=== PATIENT | male | born 1985 | race African-American/Black ===

== ENCOUNTER 2021-06-15 22:35 | Observation (INO) | payer MEDICARE, MEDICAID, SELFPAY ==
[2021-06-15] VITALS (14 sets, daily range): BP systolic 109–204; BP diastolic 64–132; PULSE 50–113; RESP 15–31; TEMP 36.8; O2SAT 92–100
--- NOTE | ~2021-06-15 | XR_ITS ---
XR chest 1V portable DATE: 06/15/2021 23:14 INDICATION: Midsternal chest pain TECHNIQUE: 2 portable AP views on 06/15/2021 at 2304 2305 hours COMPARISON: None FINDINGS: There is pulmonary vascular redistribution and mild prominence of the minor fissure which m ay indicate mild pulmonary vascular congestion. Mild right perihilar infiltrate is suggested. Heart s ize is appears borderline, not optimally evaluated on AP projection, particularly considering some ro tation on these views. No pleural effusion or pneumothorax is detected. IMPRESSION: Limited rotated portable AP views with suggestion of possible congestive changes Reviewed, dictated and finalized at location A. IMPRESSION: Limited rotated portable AP views with suggestion of possible conge stive changes
--- NOTE | ~2021-06-15 | XR_ITS ---
XR chest PICC line DATE: 06/16/2021 14:01 INDICATION: PICC line confirmation TECHNIQUE: Portable AP chest on 06/26/2021 at 1347 hours COMPARISON: 06/15/2021 portable AP chest FINDINGS: PICC line overlies the mid superior vena cava. No pneumothorax. Mild infiltrate or atelectasis is suggested in the right mid and both lower lung zones. Heart size appears normal. No hilar or mediastinal enlargement. No pulmonary vascular congestion, ple ural effusion or pneumothorax is evident. IMPRESSION: Right upper extremity PIC catheter tip overlying mid superior vena cava Reviewed, dictated and finalized at [facility]. Reviewed, dictated and finalized at location A.
--- NOTE | ~2021-06-15 | CT_ITS ---
EXAMINATION: CT abdomen pelvis w con DATE: 06/16/2021 01:58 INDICATION: Right abdominal pain. Nausea. TECHNIQUE: Computed tomography (CT) of the abdomen and pelvis was performed with 100 cc Omnipaque 350 intravenous contrast. Automated exposure control and iterative reconstruction technique were employe d. Exam dose: 1320.89 mGy-cm total exam DLP. COMPARISON: None. FINDINGS: There is mild discoid atelectasis or scarring at the lung bases. Heart size is within giles l limits. There is no pericardial or pleural effusion. Small sliding hiatal hernia. Status post cholecystectomy. No hepatic, splenic, pancreatic, adrenal space-occupying mass lesion is evident. Scattered bilateral probable renal cysts. No urinary tract calculus or hydroureteronephrosis is evident. There is a suprapubic Lynch catheter within the evacuated urinary bladder. IVC filter is noted beneath the level of the renal veins. Normal caliber of the abdominal aorta. There is a percutaneous pigtail catheter in the left paracolic gutter. There is severe lytic change of the fifth lumbar vertebra, which vertebral body is nearly completely destroyed, similar lytic involvement of the proximal sacrum with approximately 11.2 x 8.3 x 6.1 cm so ft tissue mass or phlegmon in this lumbosacral area with multiple bone fragments. Osteomyelitis is rubio spected Severe chronic deformities of both hips and pelvic bones. IMPRESSION: Extensive destruction and L5 and proximal segment with large soft tissue mass and bone f ragments in this region. Extensive osteomyelitis and abscess are suggested. Primary or metastatic bon e malignancy is considered much less likely. Extensive chronic deformities of both hips Small sliding hiatal hernia Status post cholecystectomy Probable bilateral renal cysts Suprapubic Lynch catheter IVC filter Reviewed, dictated and finalized at [facility]. Reviewed, dictated and finalized at location A. IMPRESSION: Extensive destruction and L5 and proximal segment with large soft tissue mass and bone fragments in this region. Extensive osteomyelitis and absc ess are suggested. Primary or metastatic bone malignancy is considered much les s likely. Extensive chronic deformities of both hips Small sliding hiatal hernia Status post cholecystectomy Probable bilateral renal cysts Suprapubic Lynch catheter IVC filter
--- NOTE | 2021-06-15 22:36 | ED.CHESTPAIN ---
HPI - Chest Pain General Chief Complaint: Chest Pain Stated Complaint: CHEST PAIN Time Seen by Provider: 06/15/21 22:35 History of Present Illness HPI narrative: 35 yo male w/ complicated medical history including traumatic amputation of BLE, paraplegia, DM, CKD, HTN, laprotomy, pyelonephritis, presents to the ED for chest pain. This started about 40 minutes before arrival. Feels like pressure. He has had the same pain in the past. He was seen at [facility], where he gets all of his medical care. He is not sure what the cause was. BP was very elevated per EMS. pain improved somewhat with aspirin and nitro. Related Data Home Medications Medication Instructions Recorded Confirmed Lactobacillus acidophilus 10 mg PO BID 06/16/21 06/16/21 [Acidophilus] calcium carbonate 1,000 mg PO QID PRN 06/16/21 06/16/21 carvedilol 3.125 mg PO BID 06/16/21 06/16/21 cefepime 2 g IV BID 06/16/21 06/16/21 collagenase clostridium histo. TOPICAL 06/16/21 [Santyl] cyclobenzaprine 5 mg PO TID PRN 06/16/21 06/16/21 daptomycin 550 mg IV DAILY 06/16/21 06/16/21 fentanyl 50 mcg TOPICAL Q3D 06/16/21 06/16/21 gabapentin 300 mg PO HS 06/16/21 06/16/21 linaclotide [Linzess] 145 mcg PO DAILY 06/16/21 06/16/21 metronidazole [Flagyl] 500 mg PO TID 06/16/21 06/16/21 omeprazole 20 mg PO DAILY 06/16/21 06/16/21 ondansetron HCl 4 mg PO Q6H PRN 06/16/21 06/16/21 oxycodone-acetaminophen [Percocet] 1 tablet PO Q4H 06/16/21 06/16/21 polyethylene glycol 3350 17 g PO DAILY PRN 06/16/21 06/16/21 potassium chloride 40 meq PO DAILY 06/16/21 06/16/21 sennosides-docusate sodium [Senna 1 tablet PO BID PRN 06/16/21 06/16/21 Plus] Allergies Allergy/AdvReac Type Severity Reaction Status Date / Time metoclopramide [From Reglan] Allergy Other Verified 06/15/21 22:44 Review of Systems Review of Systems: All systems reviewed & are unremarkable except as noted in HPI and below Constitutional: Constitutional: Denies fever(s) Cardiovascular: Cardiovascular: Reports as per HPI Respiratory: Respiratory: Reports dyspnea Gastrointestinal: Gastrointestinal: Reports no additional gastrointestinal complaints Genitourinary: Genitourinary: Reports no additional male genitourinary complaints Neurologic: Reports system reviewed and no additional complaints, except as documented PMFSH Past Medical History Medical History Diabetes mellitus HTN (hypertension) Paraplegia Pyelonephritis Surgical History Surgical History S/P AKA (above knee amputation) bilateral Family History Family History Father History of blood clots Mother Diabetes mellitus Hypertension Social History Social History Years smoked: 11 Smoking status: Former smoker Tobacco type: cigarettes Alcohol intake: former Substance use: current Substance use type: marijuana Living arrangements: [facility] Spiritual care concerns: No Exam Const: General: alert and ill appearing Nutritional Appearance: obese Orientation/consciousness: patient oriented x3 HENMT: Head: normal to inspection Neck: Neck: normal visual inspection Resp: Effort & Inspection: tachypneic Auscultation: clear to auscultation bilaterally Cardio: Rate: bradycardic Rhythm: regular rhythm GI: GI Palp: Yes Soft to palpation and No Tenderness to palpation present (GI) Skin: Other: diaphoretic Neuro: General: patient oriented x3 Speech: normal speech Extrem: Other: bilateral AKA. right picc line in place Course Vital Signs Vital signs: Vital Signs Temperature 36.8 C 06/15/21 22:36 Pulse Rate 58 L 06/15/21 22:36 Respiratory Rate 19 06/15/21 22:36 Blood Pressure 204/132 H 06/15/21 22:36 Pulse Oximetry 100 06/15/21 22:36 Temperature 37.7 C H 06/16/21 16:00 Pu
--- NOTE | 2021-06-15 22:51 | ECG_ITS ---
Measurements Intervals [place] Rate: 53 P: -6 SC: 159 QRS: 35 QRSD: 108 T: 40 QT: 443 QTc: 418 Interpretive Statements SINUS BRADYCARDIA BASELINE ARTIFACT- II, III, AVR, AVL, AVF, V1-V6 BORDERLINE ECG Electronically Signed On 06-16-2021 7:01:59 CDT by Toi Greenberg D.O.
[2021-06-15] MEDS: MORPHINE SULFATE (*CRX) 4 MG/ML INJ IV PUSH (23:06)
[2021-06-15] MEDS: NITROGLYCERIN SL 0.4 MG TABLET SUBLINGUAL (23:06)
[2021-06-15] MEDS: hydrALAZINE HCL 20 MG/ML VIAL IV PUSH (23:06)
--- NOTE | 2021-06-15 23:06 | PC.NURSE ---
ERP states picc is ok to uses.
[2021-06-15] MEDS: ONDANSETRON INJ 4 MG/2 ML VIAL IV PUSH (23:20)
--- NOTE | 2021-06-15 23:22 | PC.NURSE ---
Patient states pain is 8/10, down from 10/10 after medications given.
[2021-06-15 23:23] LABS: Basophils Percent Auto 0.3 % (0.2-1.2); Eosinophils Absolute Auto 0.1 K/mm3 (0-0.3); Eosinophils Percent Auto 1.5 % (0-4.4); Hemoglobin 11.2 g/dL (14.0-18.0); Immature Granulocyte Absolute 0.03 K/mm3 (0.00-0.031); Immature Granulocyte Percent A 0.4 % (0-0.5); Lymphocytes Absolute Auto 1.02 K/mm3 (0.9-3.2); Lymphocytes Percent Auto 14.2 % (18.3-44.2); Mean Corpuscular HGB Conc 30.3 g/dl (32-36); Mean Corpuscular Hemoglobin 24.6 pg (26-34); Mean Corpuscular Volume 81.1 fl (80-100); Mean Platelet Volume 10.7 fl (7.4-10.4); Monocytes Absolute Auto 0.3 K/mm3 (0.1-0.6); Monocytes Percent Auto 4.4 % (2.6-8.5); Neutrophils Absolute Auto 5.7 K/mm3 (1.3-6.7); Neutrophils Percent Auto 79.2 % (45.5-73.1); Platelet Count Result 231 k/mm3 (150-375); Red Blood Count 4.56 M/mm3 (4.6-6.20); Red Cell Distribution Width 18.6 % (11.5-14.5); White Blood Count 7.2 K/mm3 (4.5-10.0)
[2021-06-15 23:33] LABS: Alanine Aminotransferase 16 U/L (4-50); Albumin Level 4.2 g/dL (3.5-5.1); Alkaline Phosphatase 96 U/L (38-126); Anion Gap 12 mmol/L (8-16); Aspartate Amino Transferase 24 U/L (17-59); Bilirubin,Total 0.7 mg/dL (0.2-1.3); Blood Urea Nitrogen 19 mg/dL (9-20); Calcium 9.6 mg/dL (8.4-10.2); Carbon Dioxide 18 mmol/L (22-30); Chloride 109 mmol/L (98-107); Estimated Glomerular Filt Rate > 60; Glucose 124 mg/dL (65-110); Potassium 4.2 mmol/L (3.4-5.0); Sodium 139 mmol/L (137-145)
[2021-06-15 23:35] LABS: Prothrombin Time 13.4 Seconds (11.1-14.7)
[2021-06-15 23:42] LABS: NT Pro B Type Natriuretic Pept 185 pg/mL (5-100)
[2021-06-15 23:52] LABS: Troponin I < 0.012 ng/mL (0.000-0.034)
[2021-06-16] VITALS (30 sets, daily range): BP systolic 90–209; BP diastolic 49–139; PULSE 50–131; RESP 13–30; TEMP 36.1–37.7; O2SAT 94–100; BMI 35.9
--- NOTE | 2021-06-16 00:37 | PC.NURSE ---
0032 Kamille, patient's caregiver at the [facility] calls to get update on patient.
[2021-06-16] MEDS: hydrALAZINE HCL 20 MG/ML VIAL IV PUSH (00:47)
--- NOTE | 2021-06-16 00:53 | PC.NURSE ---
Contacted [facility] to have patient's medical records faxed over.
[2021-06-16] MEDS: MORPHINE SULFATE (*CRX) 4 MG/ML INJ IV PUSH (00:57)
--- NOTE | 2021-06-16 02:30 | ADMGEN ---
This patient, Shawn Casey Jr., was admitted to Intensive Care Unit-6. Patient/family oriented to hospital policies and general routines including ID bracelet, bed and alarms, visiting hours, pain management, procedures, bathroom and other care routines, personal items, smoking policy, room service/diet, and visiting hours. Information on how to activate the Rapid Response Team has been discussed. Patient/Family are encouraged to report perceived risks to care and to ask questions if they do not understand what they are told or what they should do.
[2021-06-16 03:11] LABS: Troponin I < 0.012 ng/mL (0.000-0.034)
[2021-06-16] MEDS: NITROGLYCERIN OINTMENT 1 INCH DOSE TRANSDERM (05:03)
[2021-06-16 06:54] LABS: Troponin I < 0.012 ng/mL (0.000-0.034)
--- NOTE | 2021-06-16 13:54 | PM.IMPN ---
Progress Note: A&P Assessment and Plan (1) Chest pain: Qualifiers: Chest pain type: precordial pain Qualified Code(s): R07.2 - Precordial pain Code(s): R07.9 - Chest pain, unspecified Status: Acute Assessment and Plan: Patient with substernal chest pain that started 40 minutes prior to arrival to the ER on 06/15/2021 -of some chest pressure with diaphoresis, denies any shortness of breath, the pain did not radiate, he also denied nausea vomiting -in the ER patient systolic blood pressures were 204/132. Patient was given morphine, hydralazine and nitro paste which improved his blood pressure and his chest pain -EKG did not show any ST-T changes showed mild bradycardia with a rate of 53 -chest pain could be related to hypertension -troponins negative x3 -will obtain echocardiogram (2) Diabetes: Code(s): E11.9 - Type 2 diabetes mellitus without complications Status: Acute Assessment and Plan: Continue Accu-Cheks and sliding scale insulin (3) Essential hypertension: Code(s): I10 - Essential (primary) hypertension Status: Acute Assessment and Plan: Currently blood pressures are low normal, will hold all antihypertensives for now (4) DVT prophylaxis: Code(s): Z29.9 - Encounter for prophylactic measures, unspecified Status: Acute Assessment and Plan: Will add enoxaparin Additional Plan Code Status: Full Code Subjective Date/time seen: 06/16/21 13:54 Interval history: 35-year-old patient traumatic amputation of bilateral lower extremities, paraplegia, diabetes mellitus, CKD, hypertension, pyelonephritis, bilateral AKA presented the ER with complains of chest pressure on 06/15/2021. 06/16/2021: Patient being seen the hospitalist group, he has an intermediate Unit patient parked in the ICU. Patient is denies any chest pain this morning, he stated yesterday he had substernal chest pain was seem like pressure along with diaphoresis. He denies any shortness of breath, radiation, nausea, vomiting. His blood pressures are significantly elevated in the ER 204/132. Patient was treated with hydralazine, nitro patch, morphine blood pressure. Review of Systems Review of Systems: All systems reviewed & are unremarkable except as noted in HPI and below Exam Const: General: comfortable and no acute distress HENMT: Mouth: Yes moist mucous membranes Eyes: Sclera: sclerae normal Pupils: Equal, round and reactive pupils present Neck: Neck: supple Thyroid: thyroid normal Lymphatic: lymphadenopathy not noted Resp: Effort & Inspection: normal respiratory effort Auscultation: clear to auscultation bilaterally Cardio: Rate: regular rate and tachycardic GI: Inspection: non-distended GI Palp: Yes Soft to palpation and No Tenderness to palpation present (GI) Auscultation: normal bowel sounds : Other: Suprapubic catheter in place Urinary Catheter: Urinary Catheter: patent and draining and urine clear Skin: Other: Patient has some decubitus ulcers -lesions on lower extremities Neuro: Other: Patient is awake, alert, oriented, follows simple commands with upper extremities and answers questions appropriately Extrem: Other: Bilateral AKA Psych: Mental Status: mental status grossly normal Affect: normal affect Objective Data Vital Signs Vital Signs: Vital Signs - 24 hr 06/15/21 22:36 06/15/21 22:41 06/15/21 22:42 Temperature 98.2 F Pulse Rate 58 L 63 50 L Respiratory Rate 19 31 H 18 Blood Pressure 204/132 H 204/132 H Pulse Oximetry 100 100 100 06/15/21 22:45 06/15/21 22:47 06/15/21 23:04 Temperature Pulse Rate 57 L 55 L 63 Respiratory Rate 15 Blood Pressure 193/107 H Pulse Oximetry 100 100 06/15/21 23:13 06/15/21 23:15 06/15/21 23:18 Temperature Pulse Rate 81 86 102 H Respiratory Rate Blood Pressure 189/116 H 150/78 H Pulse Oximetry 92 98 96 06/15/21 23:20 06/15/21 23:21 06/15/21 23:30 Temperatur
--- NOTE | 2021-06-16 14:09 | ECHO_ITS ---
Patient Info Name: Shawn Casey Age: 35 years : 1985 Gender: Male Ht: 76 in Wt: 294 lbs BSA: 2.72 m2 HR: 107 bpm BP: 98 / 49 mmHg Heart Rhythm: Sinus Rhythm, Tachycardia Technical Quality: Good Exam Date: 06/16/2021 2:34 PM Exam Location: [facility] Pulmonary Patient Status: Inpatient Admit Date: 06/16/2021 Staff Ordering Physician: Stefania Chatman MD Armored Machine Operator: Pastora Funez RDCS Attending Provider: Ashley Kaplan MD Referring Physician: [place], [facility] ; Exam Type: CA echo dop color flow w con Study Info Indications - R/O WALL MOTION ABNORMALITIES R07.9 - Chest pain, unspecified Complete two-dimensional, color flow and Doppler transthoracic echocardiogram is performed with contrast to opacify the left ventricle and to improve the deliniation of the left ventricle endocardial borders. Contrast/Agitated Saline Contrast/Ag. Saline: Definity Amount: 1.00 ml Administered By: Sandra Young RN [employer] Summary 1. Left ventricular chamber dimension is normal. 2. Left ventricular systolic function is normal, estimated at 60-65%. 3. There is mildly increased left ventricular wall thickness. 4. The left ventricular diastolic function is abnormal. 5. There is no aortic valve stenosis. 6. There is trace mitral valve regurgitation. 7. There is trace tricuspid valve regurgitation. 8. No pulmonary hypertension, estimated pulmonary arterial systolic pressure is 25 mmHg. Left Ventricle Left ventricular chamber dimension is normal. Left ventricular systolic function is normal, estimated at 60-65%. There is mildly increased left ventricular wall thickness. The left ventricular diastolic function is abnormal. Right Ventricle Right ventricular chamber dimension is normal. Right ventricular systolic function is normal. Left Atria Left atrial chamber dimension is normal. Right Atria Right atrial chamber dimension is normal. Aortic Valve The aortic valve is trileaflet. There is no aortic valve stenosis. There is no aortic valve regurgitation. Pulmonic Valve The pulmonic valve is normal. There is trace pulmonic regurgitation. Mitral Valve The mitral valve has normal leaflets. There is trace mitral valve regurgitation. Tricuspid Valve The tricuspid valve leaflets are normal. There is trace tricuspid valve regurgitation. No pulmonary hypertension, estimated pulmonary arterial systolic pressure is 25 mmHg. Pericardium/Pleural The pericardium appears normal. There is no pericardial effusion. Inferior Vena Cava Normal inferior vena cava with >50% collapse upon inspiration consistent with normal right atrial pressure, 5 mmHg. Aorta The aortic root size at the sinus of Valsalva is normal. Left Ventricular Outflow Tract Name Value Normal LVOT 2D LVOT Diameter 2.41 cm LVOT Doppler LVOT Peak Gradient 6 mmHg LVOT Mean Gradient 4 mmHg LVOT VTI 24.31 cm LVOT VTI/AV VTI Ratio 0.84
[2021-06-16] MEDS: PERFLUTREN LIPID MICROSPHERES 1.5 ML VIAL DILUTED TO 10 ML TOTAL VOLUME IV PUSH (15:00)
[2021-06-16] MEDS: SILVERGEL (ELTA) 45 ML 1 APPLIC TOPICAL (15:29)
[2021-06-16] MEDS: CENTRAL LINE FLUSH 10 ML IV PUSH ×2 (15:29→23:03)
[2021-06-16] MEDS: hetaSTARCH 6%/NACL 500 ML 250 ML IV CONT (15:29)
--- NOTE | 2021-06-16 16:31 | PM.CNCAR ---
Assessment and Plan Assessment and plan (1) Hypertensive urgency: Code(s): I16.0 - Hypertensive urgency Status: Acute Assessment and Plan: Resolved and in fact transiently hypotensive requiring norepinephrine which has subsequently been discontinued. Continue close observation of blood pressure. Patient receiving DVT prophylaxis. Off antihypertensives at this time. (2) Chest pain: Qualifiers: Chest pain type: precordial pain Qualified Code(s): R07.2 - Precordial pain Code(s): R07.9 - Chest pain, unspecified Status: Acute Assessment and Plan: Atypical, persistent ruled out for CT negative serial Trop I, no ischemic EKG changes. Chest pain most likely secondary to hypertensive urgency. Consider pulmonary embolism if clinically indicated. Patient on room air without hypoxia,no complaints of shortness of breath makes this less likely although patient at risk given comorbidities. Echo unremarkable EF 60-65% with exception of mild LVH. No further workup indicated at this time. Should he have recurrence or significant progression of unexplained chest pain please do not hesitate to contact us with any additional questions or concerns. We will see patient on an as-needed basis. Continue telemetry overnight. If unremarkable may discontinue tomorrow provided patient is hemodynamically stable and otherwise asymptomatic. (3) Diabetes: Code(s): E11.9 - Type 2 diabetes mellitus without complications Status: Acute Assessment and Plan: Management per primary service. History of Present Illness History of Present Illness Consult date/time: Date of service: 06/16/21 16:31 Cardiology consultation at the request of Dr. Chatman for our opinion regarding chest pain and hypertensive urgency. Requesting physician: Stefania Chatman MD Consult reason: chest pain Reason For Visit: Chest Pain, Hypertensive Emergency Narrative: Patient is a very pleasant yet unfortunate and complicated 35-year-old male with past medical history significant for traumatic amputation of bilateral above knee amputation, diabetes mellitus, chronic kidney disease, hypertension, pyelonephritis, paraplegia who presented to the emergency department yesterday with complaints of chest heaviness like someone sitting on his chest for 40 minutes prior to arrival. He was noted to be hypertensive with systolic blood pressure 204/132 in the emergency department. He was given IV hydralazine, nitroglycerin paste with improvement in his blood pressure and marked improvement in his chest pain. Patient states his chest pain is minimal but has not completely resolved. No exacerbation with deep breathing, cough or movement. Patient denies prior chest pain. He has ruled out for myocardial infarction with negative serial cardiac enzymes. EKG was without ischemic changes of presentation. 2D echocardiogram personally reviewed no wall motion abnormalities, mild LVH normal LV systolic function. Patient was noted to be hypotensive transiently requiring norepinephrine which has subsequently been discontinued. He has been receiving IV antibiotics and managed through [place] for infection in his back through a right upper extremity PICC line for several months. Review of Systems Review of Systems: All systems reviewed & are unremarkable except as noted in HPI and below Constitutional: Constitutional: Reports as per HPI and Reports no additional constitutional complaints Eyes: Eyes: Reports as per HPI and Reports no additional eye complaints ENT: Reports system reviewed and no additional complaints, except as documented and Reports as per HPI Cardiovascular: Cardiovascular: Reports as per HPI, Reports no additional cardiovascular complaints and Reports chest pain Respiratory: Respiratory: Reports as per HPI and Reports no additional respiratory complaints Gastrointestinal: Gastrointestinal: Reports as per HPI and Reports no additional gas
[2021-06-16 17:14] LABS: Hemoglobin A1C 4.6 % (<5.7)
[2021-06-16] MEDS: SODIUM CHLORIDE 0.9% IV 1,000 ML 75 ML IV CONT (17:33)
[2021-06-16] MEDS: DAPTOmycin 500 MG in SODIUM CHLORIDE 0.9% IV 50 ML 100 MG IVPB (17:49)
[2021-06-16] MEDS: ACIDOPHILUS/BULGARICUS CHEWABLE TABLET 1 TABLET PO (17:49)
[2021-06-16] MEDS: metroNIDAZOLE 250 MG TABLET 500 MG PO (17:50)
[2021-06-16 18:04] LABS: Glucose Point of Care 166 mg/dl (65-105)
[2021-06-16] MEDS: CEFEPIME 2 GM in DEXTROSE 5% IN WATER 50 ML IVPB (18:53)
[2021-06-16] MEDS: oxyCODONE/ACETAMINOPHEN (*CRX) 5-325 MG TABLET 1 TABLET PO (19:48)
[2021-06-16] MEDS: ONDANSETRON INJ 4 MG/2 ML VIAL IV PUSH (21:22)
[2021-06-16] MEDS: CALCIUM CARBONATE (TUMS) 500 MG (200 MG ELEMENTAL) 400 MG PO (21:35)
[2021-06-16] MEDS: KETOROLAC 30 MG/ML VIAL (*BKC) IV PUSH (21:45)
[2021-06-16] MEDS: MORPHINE SULFATE (*CRX) 4 MG/ML INJ 1 MG IV PUSH (22:55)
[2021-06-16] MEDS: NITROGLYCERIN SL 0.4 MG TABLET SUBLINGUAL (23:11)
--- NOTE | 2021-06-16 23:13 | ECG_ITS ---
Measurements Intervals [place] Rate: 42 P: -3 ID: 164 QRS: 31 QRSD: 100 T: 25 QT: 471 QTc: 394 Interpretive Statements SINUS BRADYCARDIA BORDERLINE ST ABNORMALITY- INFERIOR LEADS BASELINE ARTIFACT- II, III, AVR, AVL, AVF, V1-V5 ABNORMAL ECG Electronically Signed On 06-17-2021 6:02:09 CDT by Toi Greenberg D.O.
[2021-06-16] MEDS: hydrALAZINE HCL 20 MG/ML VIAL 10 MG IV PUSH (23:31)
[2021-06-16] MEDS: GABAPENTIN 300 MG CAPSULE PO (23:33)
[2021-06-16 23:45] LABS: Glucose Point of Care 118 mg/dl (65-105)
[2021-06-16] MEDS: LORazepam INJ (*CRX) 2 MG/ML VIAL 1 MG IV PUSH (23:55)
[2021-06-17] VITALS: BP 155/93; PULSE 60; PULSE 61; RESP 24; TEMP 36.4; O2SAT 92
[2021-06-17] MEDS: oxyCODONE/ACETAMINOPHEN (*CRX) 5-325 MG TABLET 1 TABLET PO ×2 (01:19→06:41)
[2021-06-17] MEDS: ONDANSETRON INJ 4 MG/2 ML VIAL IV PUSH (01:55)
[2021-06-17] MEDS: HYDROmorphone HCL INJ (*CRX) 1 MG/ML SYR 2 MG IV PUSH ×2 (03:41→09:19)
[2021-06-17 04:00] VITALS: BP 170/101; PULSE 58; PULSE 64; RESP 18; TEMP 36.6; O2SAT 100
[2021-06-17] MEDS: CEFEPIME 2 GM in DEXTROSE 5% IN WATER 50 ML IVPB ×2 (05:07→18:30)
[2021-06-17] MEDS: CENTRAL LINE FLUSH 10 ML IV PUSH ×3 (05:12→21:20)
[2021-06-17 08:00] VITALS: BP 179/109; PULSE 60; PULSE 63; RESP 18; TEMP 36.3; O2SAT 100
[2021-06-17 08:07] LABS: Glucose Point of Care 124 mg/dl (65-105)
[2021-06-17] MEDS: ACIDOPHILUS/BULGARICUS CHEWABLE TABLET 1 TABLET PO ×2 (08:43→17:57)
[2021-06-17] MEDS: metroNIDAZOLE 250 MG TABLET 500 MG PO ×3 (08:43→17:57)
[2021-06-17] MEDS: ENOXAPARIN 40 MG/0.4 ML SYRINGE SUB-Q (08:43)
[2021-06-17] MEDS: SILVERGEL (ELTA) 45 ML 1 APPLIC TOPICAL (08:44)
[2021-06-17 12:00] VITALS: BP 139/91; PULSE 100; PULSE 107; RESP 18; TEMP 36.2; O2SAT 100
[2021-06-17] MEDS: SODIUM CHLORIDE 0.9% IV 1,000 ML 75 ML IV CONT (12:44)
[2021-06-17 13:23] LABS: Glucose Point of Care 90 mg/dl (65-105)
[2021-06-17] MEDS: HYDROmorphone HCL INJ (*CRX) 2 MG/ML VIAL IV PUSH ×3 (14:10→21:20)
--- NOTE | 2021-06-17 15:58 | PM.DS ---
DS: Admitting Diagnosis Admitting Diagnosis hypertensive urgency chest pain DS: Discharge Diagnosis Discharge Diagnosis (1) Hypertensive urgency: Code(s): I16.0 - Hypertensive urgency Status: Acute Assessment and Plan: hypertensive urgency improved with appropriate pain control. Patient will be changed to Dilaudid p.o., Rx given. he temporally had hypotensive episode after hydralazine and nitroglycerin compounded to then require Levophed temporarily. (2) Abdominal pain: Code(s): R10.9 - Unspecified abdominal pain Status: Acute Assessment and Plan: will treat with Dilaudid p.o. because Percocets are not giving adequate pain control. Patient has known discitis osteomyelitis of his spine (3) Discitis: Code(s): M46.40 - Discitis, unspecified, site unspecified Status: Acute Assessment and Plan: Known osteomyelitis and discitis followed at [facility]. Patient is following Dr. Delarosa Infectious Disease. Patient is prescribed daptomycin and meropenem however because of issues with administration of medications he was switched to daptomycin and Flagyl and cefepime. He is supposed to be on IV antibiotics until 07/02/2021 he has left upper extremity PICC line. DS: Summary Hospital Course Reason for hospitalization: hypertensive urgency Hospital Course: Patient is a 35-year-old male past medical history of bilateral TKAs, osteomyelitis diskitis of his spine who presents to the ED with complaints of chest pain and hypertensive urgency. He follows at [facility] Dr. Chula Delarosa. he has been prescribed daptomycin and meropenem however because of administration issues at the shelter he has been switched to daptomycin Flagyl and cefepime. Patient has been no problems with his antibiotics. He developed paracolic fluid and has a drain in the left side for left paracolic fluid. in the ED he had evaluation for chest pain. He does not have an ACS, chest pain has been attributed to hypertensive urgency. after having multiple doses of hydralazine and nitroglycerin he became hypotensive and required Levophed in ICU temporarily. After stopping antihypertensives his blood pressure normalized and then he became hypertensive once again which resolved with adequate pain control. patient's white blood cell counts normal imaging is consistent with his known osteomyelitis. his chest pain completely resolved, no sign of ACS. Echocardiogram was done was unremarkable EF 60 65%. Chest x-ray showed no acute findings, PICC line is in appropriate place. CT abdomen pelvis shows his extensive destruction of L5 soft tissue mass and bone fragments consistent with his osteomyelitis. patient appears to be stable, labs stable, vitals stable, patient is stable for discharge to SNF. Patient will follow-up with [facility] for his paracolic gutter catheter and his osteomyelitis. His hypertensive urgency with secondary to pain therefore we will change his pain regimen to p.o. Dilaudid from Percocet. Patient to be discharged back to [facility] to then follow up with his providers at [facility]. patient understands and agrees with plan. Status at Discharge Cognitive/behavioral status at discharge: At baseline Functional status at discharge: wheelchair bound Overall status at discharge: patient is back to baseline Time Spent with Patient Time attestation: Total time spent providing and/or coordinating discharge services:35 Time spent: Greater than 30 minutes DS: Data Data Completed and Pending Labs on day of discharge: Labs from last 24 hours 06/17/21 06/17/21 06/16/21 13:15 07:59 22:22 POC Capillary Glucose 90 124 H 118 H Hemoglobin A1c 06/16/21 06/15/21 17:56 23:16 POC Capillary Glucose 166 H Hemoglobin A1c 4.6 Preliminary micro results at discharge 06/16/21 06:21 Blood Culture - Preliminary Blood 06/16/21 09:29 Blood Culture - Prel
[2021-06-17 16:00] VITALS: BP 113/57; PULSE 109; PULSE 90; RESP 18; TEMP 35.9; O2SAT 100
[2021-06-17 17:00] LABS: Glucose Point of Care 108 mg/dl (65-105)
[2021-06-17] MEDS: DAPTOmycin 500 MG in SODIUM CHLORIDE 0.9% IV 50 ML 100 MG IVPB (17:51)
[2021-06-17 20:00] VITALS: BP 124/69; PULSE 100; RESP 18; TEMP 36.4; O2SAT 100
[2021-06-17] MEDS: GABAPENTIN 300 MG CAPSULE PO (21:20)
[2021-06-17 21:32] LABS: Glucose Point of Care 116 mg/dl (65-105)
--- NOTE | 2021-06-24 18:35 | PM.IMHP ---
H&P: HPI History of Present Illness Date/Time: 06/24/21 18:35 Patient was seen and examined in ED 06/15/21 at 2300 hours Late entry note. Chief Complaint: Chest pain Narrative: This is a very unfortunate 35-year-old male with past medical history significant for traumatic bilateral lower extremity amputation ,paraplegia, neurogenic bladder, suprapubic chronic indwelling Lynch catheter, hypertension, chronic constipation, vesicular cutaneous fistula for straight cath ,chronic diskitis and osteomyelitis, PICC line in place patient resides at a Care Home. Patient was brought to the emergency room after he complained of discomfort in his chest upon arrival to the emergency room he was found to have a systolic blood pressure in the 200's. Patient denied any other issues at that time no nausea no vomiting no abdominal pain no shortness of breath no cough no sputum production. She patient usually gets his care at [facility]. Preliminary workup was significant for CT of abdomen and pelvis with extensive destruction and L5 and proximal segment with large soft tissue mass and bone fragments in this region. Extensive osteomyelitis and abscess are suggested. Patient has been receiving daptomycin, Flagyl and cefepime. Review of Systems Review of Systems: All systems reviewed & are unremarkable except as noted in HPI and below PMFSH Past Medical History Medical History Diabetes mellitus HTN (hypertension) Paraplegia Pyelonephritis Surgical History Surgical History S/P AKA (above knee amputation) bilateral Family History Family History Father History of blood clots Mother Diabetes mellitus Hypertension Social History Social History Years smoked: 11 Smoking status: Former smoker Tobacco type: cigarettes Alcohol intake: former Substance use: current Substance use type: marijuana Spiritual care concerns: No Meds Home Medications and Allergies Home Medications Medication Instructions Recorded Confirmed Type Lactobacillus acidophilus 10 mg PO BID 06/16/21 06/16/21 History [Acidophilus] Linzess 145 mcg PO DAILY 06/16/21 06/16/21 History Santyl 1 applic TOPICAL DAILY 06/16/21 06/17/21 History calcium carbonate 1,000 mg PO QID PRN 06/16/21 06/16/21 History carvedilol 3.125 mg PO BID 06/16/21 06/16/21 History cefepime 2 g IV BID 06/16/21 06/16/21 History cyclobenzaprine 5 mg PO TID PRN 06/16/21 06/16/21 History daptomycin 550 mg IV DAILY 06/16/21 06/16/21 History fentanyl 50 mcg TOPICAL Q3D 06/16/21 06/16/21 History gabapentin 300 mg PO HS 06/16/21 06/16/21 History metronidazole [Flagyl] 500 mg PO TID 06/16/21 06/16/21 History omeprazole 20 mg PO DAILY 06/16/21 06/16/21 History ondansetron HCl 4 mg PO Q6H PRN 06/16/21 06/16/21 History polyethylene glycol 3350 17 g PO DAILY PRN 06/16/21 06/16/21 History potassium chloride 40 meq PO DAILY 06/16/21 06/16/21 History sennosides-docusate sodium [Senna 1 tablet PO BID PRN 06/16/21 06/16/21 History Plus] hydromorphone [Dilaudid] 2 mg PO Q6H PRN 7 Days #30 tablet 06/17/21 Rx Allergies Allergy/AdvReac Type Severity Reaction Status Date / Time metoclopramide [From Reglan] Allergy Other Verified 06/15/21 22:44 Exam Narrative: Laying in armando Const: General: comfortable and ill appearing Nutritional Appearance: overweight HENMT: Mouth: Yes moist mucous membranes Eyes: Sclera: sclerae normal Pupils: Equal, round and reactive pupils present Neck: Neck: supple Thyroid: thyroid normal Lymphatic: lymphadenopathy not noted Resp: Effort & Inspection: normal respiratory effort Auscultation: clear to auscultation bilaterally Cardio: Rate: regular rate and tachycardic GI: Inspection: non-distended Auscultation: giles
== END 2021-06-18 00:43 ==
LOC: ANHED 06-16 00:16 → ANHICU 06-16 02:12 → ANH2MED 06-17 15:58 → ANHICU 06-19 14:14
PROVIDERS: Internal Medicine; Admitting Provider Internal Medicine; Emergency Provider Emergency Medicine; PCP Internal Medicine; Visit Provider Student in an Organized Health Care Education/Training Program
DX: I16.0 Hypertensive urgency (principal); R10.9 Unspecified abdominal pain; M46.40 Discitis, unspecified, site unspecified; E11.69 Type 2 diabetes mellitus with other specified complication; M46.20 Osteomyelitis of vertebra, site unspecified; R07.2 Precordial pain; R06.00 Dyspnea, unspecified; I10 Essential (primary) hypertension; E11.9 Type 2 diabetes mellitus without complications; G82.20 Paraplegia, unspecified; Z89.612 Acquired absence of left leg above knee; Z89.611 Acquired absence of right leg above knee; Z87.891 Personal history of nicotine dependence; F12.90 Cannabis use, unspecified, uncomplicated
CPT/HCPCS: 36415; 71045; 74177; 80053; 82948; 83036; 83880; 84484; 85025; 85610; 85730; 87040; 93005; 96361; 96365; 96366; 96367; 96372; 96374; 96375; 96376; 99285; A9270; C8929; G0378; J0360; J0692; J0878; J1170; J1650; J1885; J2060; J2270; J2405; J7050; Q9957; Q9967

== ENCOUNTER 2021-07-27 00:46 | Emergency (ER) | payer MEDICARE, MEDICAID, SELFPAY ==
[2021-07-27] VITALS (27 sets, daily range): BP systolic 160–219; BP diastolic 97–110; PULSE 40–90; RESP 12–29; TEMP 36.1–36.5; O2SAT 95–100
--- NOTE | ~2021-07-27 | CT_ITS ---
EXAMINATION: CT abdomen pelvis w con INDICATION: Right-sided abdominal pain TECHNIQUE: Computed tomographic images of the abdomen and pelvis were obtained after the administrati on of 100 cc of Omnipaque 350 intravenous contrast. The dose-length product (DLP) was 1473.98 mGy-cm. Automated exposure control and iterative reconstruction technique were employed. COMPARISON: 06/16/2021 FINDINGS: Minimal dependent atelectasis is present in the lung bases. The heart size is normal. The g allbladder is surgically absent. The liver, spleen, pancreas, and adrenal glands are normal. There ar e bilateral intermediate attenuation masses of the kidneys. An IVC filter is noted. There is mild ret roperitoneal lymphadenopathy. The bladder is decompressed by Lynch catheter. There are surgical morejon es in the distal small bowel. There is destruction of the L5 and S1 vertebral bodies. An associated soft tissue density projecting into the paraspinal tissues measures approximately 11 cm. There appears to be posterior subluxation o f the distal sacrum and coccyx. 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 The right hip appears t o be fused. There is intramedullary hany fixation of the left femur. A left-sided pigtail catheter coi ls in the retroperitoneum. IMPRESSION: 1. Extensive osseous destruction of the L5 and S1 vertebral bodies with surrounding soft tissue densi ty, likely discitis and osteomyelitis. Minimal change since the prior examination. Reviewed, dictated and finalized at location A. IMPRESSION: 1. Extensive osseous destruction of the L5 and S1 vertebral bodies with surroun ding soft tissue density, likely discitis and osteomyelitis. Minimal change sin ce the prior examination.
--- NOTE | ~2021-07-27 | XR_ITS ---
EXAMINATION: XR chest 1V portable INDICATION: Cough TECHNIQUE: Portable AP chest at 0141 hours COMPARISON: 06/16/2021 FINDINGS: The right upper extremity PICC is followed as far as proximal superior vena cava. The lungs are free of acute opacities. There is no pleural effusion or pneumothorax. Cardiomegaly is noted. IMPRESSION: 1. Cardiomegaly. Reviewed, dictated and finalized at location A. IMPRESSION: 1. Cardiomegaly.
[2021-07-27] MEDS: SODIUM CHLORIDE 0.9% IV 1,000 ML 999 ML IV CONT (01:38)
[2021-07-27] MEDS: ONDANSETRON INJ 4 MG/2 ML VIAL IV PUSH (01:38)
[2021-07-27 01:48] LABS: Basophils Percent Auto 0.3 % (0.2-1.2); Eosinophils Absolute Auto 0.1 K/mm3 (0-0.3); Hematocrit 38.9 % (42.0-52.0); Hemoglobin 12.4 g/dL (14.0-18.0); Immature Granulocyte Absolute 0.02 K/mm3 (0.00-0.031); Immature Granulocyte Percent A 0.3 % (0-0.5); Lymphocytes Absolute Auto 1.31 K/mm3 (0.9-3.2); Lymphocytes Percent Auto 16.4 % (18.3-44.2); Mean Corpuscular HGB Conc 31.9 g/dl (32-36); Mean Corpuscular Hemoglobin 25.8 pg (26-34); Mean Corpuscular Volume 80.9 fl (80-100); Mean Platelet Volume 11.6 fl (7.4-10.4); Monocytes Absolute Auto 0.4 K/mm3 (0.1-0.6); Monocytes Percent Auto 4.5 % (2.6-8.5); Neutrophils Absolute Auto 6.2 K/mm3 (1.3-6.7); Neutrophils Percent Auto 77.5 % (45.5-73.1); Platelet Count Result 213 k/mm3 (150-375); Red Blood Count 4.81 M/mm3 (4.6-6.20); Red Cell Distribution Width 17.3 % (11.5-14.5)
[2021-07-27 02:04] LABS: Alanine Aminotransferase 24 U/L (4-50); Albumin Level 4.4 g/dL (3.5-5.1); Alkaline Phosphatase 99 U/L (38-126); Anion Gap 16 mmol/L (8-16); Aspartate Amino Transferase 30 U/L (17-59); Bilirubin,Total 0.5 mg/dL (0.2-1.3); Blood Urea Nitrogen 21 mg/dL (9-20); Calcium 9.3 mg/dL (8.4-10.2); Carbon Dioxide 16 mmol/L (22-30); Chloride 110 mmol/L (98-107); Estimated Glomerular Filt Rate > 60; Glucose 112 mg/dL (65-110); Lipase 195 U/L (23-300); Potassium 3.7 mmol/L (3.4-5.0); Sodium 142 mmol/L (137-145)
[2021-07-27] MEDS: HYDROmorphone HCL INJ (*CRX) 1 MG/ML SYR IV PUSH ×3 (02:09→05:24)
[2021-07-27 03:24] LABS: Add Urine Microscopic? YES; Appearance Urine Turbid (Clear); Bacteria Urine 4+ /hpf; Bilirubin Urine Negative (Negative); Blood Urine 2+ (Negative); Color Urine Amber (Yellow); Glucose Urine UA Negative (Negative); Ketones Urine Negative (Negative); Leukocyte Esterase Ur 1+ LEU/UL (Negative); Mucus Urine Heavy /lpf; Nitrate Urine Negative (Negative); Protein Urine 3+ mg/dL (Negative); RBC Urine >75 /hpf (0-2); Urobilinogen Urine Negative mg/dL (<2.0); WBC Urine >75 /hpf
[2021-07-27 03:30] LABS: Specific Grav Ur 1.048 (1.001-1.035)
--- NOTE | 2021-07-27 05:22 | ED.GENADULT ---
HPI - General Adult General Chief complaint: Abdominal Pain <Braden Solo MD - Last Filed: 07/27/21 07:09> Stated complaint: rt abd pain - ext history <Braden Solo MD - Last Filed: 07/27/21 07:09> Time Seen by Provider: 07/27/21 01:17 <Braden Solo MD - Last Filed: 07/27/21 07:09> History of Present Illness HPI narrative: Patient is 35-year-old gentleman who presents the emergency department with chief complaint of abdominal pain. Patient has history of abscesses that he has had drains been on IV antibiotics that have subsequently been switched to p.o. antibiotics at this time he has history of chronic pain which she takes a fentanyl patch and does oral pain medications for breakthrough. Patient states that since about 6 PM tonight he has been having worsening pain reports is not improved by anything or is it worsened by anything denies fever denies vomiting denies diarrhea. <Braden Solo MD - Last Filed: 07/27/21 07:09> Related Data Home medications: Home Medications Medication Instructions Recorded Confirmed Lactobacillus acidophilus 10 mg PO BID 06/16/21 06/16/21 [Acidophilus] Linzess 145 mcg PO DAILY 06/16/21 06/16/21 Santyl 1 applic TOPICAL DAILY 06/16/21 06/17/21 calcium carbonate 1,000 mg PO QID PRN 06/16/21 06/16/21 carvedilol 3.125 mg PO BID 06/16/21 06/16/21 cefepime 2 g IV BID 06/16/21 06/16/21 cyclobenzaprine 5 mg PO TID PRN 06/16/21 06/16/21 daptomycin 550 mg IV DAILY 06/16/21 06/16/21 fentanyl 50 mcg TOPICAL Q3D 06/16/21 06/16/21 gabapentin 300 mg PO HS 06/16/21 06/16/21 metronidazole [Flagyl] 500 mg PO TID 06/16/21 06/16/21 omeprazole 20 mg PO DAILY 06/16/21 06/16/21 ondansetron HCl 4 mg PO Q6H PRN 06/16/21 06/16/21 polyethylene glycol 3350 17 g PO DAILY PRN 06/16/21 06/16/21 potassium chloride 40 meq PO DAILY 06/16/21 06/16/21 sennosides-docusate sodium [Senna 1 tablet PO BID PRN 06/16/21 06/16/21 Plus] <Braden Solo MD - Last Filed: 07/27/21 07:09> Allergies/adverse reactions: Allergies Allergy/AdvReac Type Severity Reaction Status Date / Time metoclopramide [From Reglan] Allergy Other Verified 06/15/21 22:44 <Braden Solo MD - Last Filed: 07/27/21 07:09> Review of Systems Review of Systems: A 10 system review of systems was completed on the patient and is negative except for what is stated in the HPI. Nursing and ancillary documentation was reviewed. <Braden Solo MD - Last Filed: 07/27/21 07:09> [facility] Past Medical History Medical History: Medical History Diabetes mellitus HTN (hypertension) Paraplegia Pyelonephritis <Braden Solo MD - Last Filed: 07/27/21 07:09> Surgical History Surgical History: Surgical History S/P AKA (above knee amputation) bilateral <Braden Solo MD - Last Filed: 07/27/21 07:09> Family History Family History: Family History Father History of blood clots Mother Diabetes mellitus Hypertension <Braden Solo MD - Last Filed: 07/27/21 07:09> Social History Social History: Social History Years smoked: 11 Smoking status: Former smoker Tobacco type: cigarettes Alcohol intake: former Substance use: current Substance use type: marijuana Spiritual care concerns: No <Braden Solo MD - Last Filed: 07/27/21 07:09> Exam Narrative: GENERAL: Well-appearing, well-nourished, and in no acute distress. HEAD: Normocephalic, atraumatic. EYES: PERRLA and EOMI. ENT: Nares clear, no rhinorrhea or epistaxis. Mucous membranes moist. NECK: Supple. CHEST: Clear to auscultation. No respiratory distress. HEART: Regular rate an
[2021-07-27] MEDS: HYDROmorphone HCL INJ (*CRX) 1 MG/ML SYR 2 MG IV PUSH (06:40)
[2021-07-27] MEDS: fentaNYL (*CRX) 50 MCG PATCH TRANSDERM (06:51)
--- NOTE | 2021-07-27 08:50 | PC.NURSE ---
PT CLEANED. LINEN CHANGED. WET TO DRY DRESSING PLACED ON PT COCCYX
--- NOTE | 2021-07-27 09:00 | PC.NURSE ---
CALLED [facility] 5 TIMES IN ATTEMPT TO GIVE REPORT. NO ANSWER. WILL CONTINUE TO CALL.
== END 2021-07-27 09:15 ==
PROVIDERS: Emergency Medicine; Emergency Provider Family Medicine; PCP Internal Medicine
DX: R10.9 Unspecified abdominal pain (principal); E11.9 Type 2 diabetes mellitus without complications; I10 Essential (primary) hypertension; G82.20 Paraplegia, unspecified; Z79.899 Other long term (current) drug therapy; Z87.891 Personal history of nicotine dependence
CPT/HCPCS: 36415; 71045; 74177; 80053; 81001; 83605; 83690; 85025; 87040; 87086; 96361; 96374; 96375; 96376; 99284; A9270; J1170; J2405; J7030; Q9967

== ENCOUNTER 2021-07-30 00:36 | Emergency (ER) | payer MEDICARE, MEDICAID, SELFPAY ==
[2021-07-30 00:43] VITALS: BP 233/127; PULSE 56; RESP 22; TEMP 36.8; O2SAT 98
--- NOTE | 2021-07-30 01:00 | ED.ABDPAIN ---
HPI - Abdominal Pain General Chief Complaint: Abdominal Pain Stated Complaint: R sided abd pain/ wants more dilaudid Time Seen by Provider: 07/30/21 00:38 Source: patient Mode of arrival: EMS Limitations: no limitations History of Present Illness HPI narrative: Patient is a 35-year-old male, who is paraplegic, custodial resident, here for lower abdominal pain, right side, 10 out of 10, nonradiating that started today, states that he needs that IV Dilaudid for his pain which he states helped him last time. Patient was seen here 2 days ago for the same complaint. Patient has had multiple ER visits for the same complaint. Patient is on a fentanyl patch and Dilaudid 2 mg p.o. every 6 at the custodial. Patient had labs and CT scan done 2 days ago when he was seen here for the same complaint. His CT scan did not show any significant change from previous that was done last month. His labs were within normal limits. Patient was recently switched to oral antibiotics after receiving IV antibiotics, has a PICC line in place. Related Data Home Medications Medication Instructions Recorded Confirmed Lactobacillus acidophilus 10 mg PO BID 06/16/21 06/16/21 [Acidophilus] Linzess 145 mcg PO DAILY 06/16/21 06/16/21 Santyl 1 applic TOPICAL DAILY 06/16/21 06/17/21 calcium carbonate 1,000 mg PO QID PRN 06/16/21 06/16/21 carvedilol 3.125 mg PO BID 06/16/21 06/16/21 cefepime 2 g IV BID 06/16/21 06/16/21 cyclobenzaprine 5 mg PO TID PRN 06/16/21 06/16/21 daptomycin 550 mg IV DAILY 06/16/21 06/16/21 fentanyl 50 mcg TOPICAL Q3D 06/16/21 06/16/21 gabapentin 300 mg PO HS 06/16/21 06/16/21 metronidazole [Flagyl] 500 mg PO TID 06/16/21 06/16/21 omeprazole 20 mg PO DAILY 06/16/21 06/16/21 ondansetron HCl 4 mg PO Q6H PRN 06/16/21 06/16/21 polyethylene glycol 3350 17 g PO DAILY PRN 06/16/21 06/16/21 potassium chloride 40 meq PO DAILY 06/16/21 06/16/21 sennosides-docusate sodium [Senna 1 tablet PO BID PRN 06/16/21 06/16/21 Plus] Allergies Allergy/AdvReac Type Severity Reaction Status Date / Time metoclopramide [From Reglan] Allergy Other Verified 06/15/21 22:44 Review of Systems Review of Systems: All systems reviewed & are unremarkable except as noted in HPI and below Constitutional: Constitutional: Denies body ache(s), Denies chills, Denies excessive sweating, Denies fatigue, Denies fever(s), Denies headache(s), Denies lethargy, Denies malaise, Denies weakness and Denies weight loss Eyes: Eyes: Denies blurry vision, Denies change in vision and Denies loss of vision ENT: Denies dizziness, Denies ear discharge, Denies headache(s), Denies lip swelling, Denies epistaxis, Denies nasal congestion, Denies neck pain, Denies throat swelling and Denies tongue swelling Cardiovascular: Cardiovascular: Denies chest pain, Denies chest pain at rest, Denies chest pain with activity, Denies diaphoresis, Denies rapid heart rate, Denies edema, Denies irregular heart rhythm, Denies lightheadedness, Denies palpitations, Denies dyspnea and Denies dyspnea on exertion Respiratory: Respiratory: Denies chest congestion, Denies cough, Denies hemoptysis, Denies dyspnea and Denies dyspnea on exertion Gastrointestinal: Gastrointestinal: Denies melena, Denies hematochezia, Denies diarrhea, Denies nausea, Denies vomiting and Denies hematemesis Musculoskeletal: Musculoskeletal: Denies abnormal gait, Denies deformity, Denies joint swelling, Denies limited range of motion, Denies neck pain and Denies numbness Neurologic: Denies Abnormal speech present, Denies abnormal gait, Denies confusion, Denies dizziness, Denies headache(s), Denies focal weakness, Denies loss of vision, Denies numbness, Denies Other visual disturbances, Denies Sensory deficit (Neuro) and Denies weakness Psychiatric: Psychiatric: Denies confusion, Denies depression, Denies auditory hallucinations, Denies homicidal ideation and Denies suicidal ideation Endocrine: Endocrine: Denies cold intolerance, Denies exces
[2021-07-30] MEDS: HYDROmorphone HCL INJ (*CRX) 1 MG/ML SYR IV PUSH (01:30)
[2021-07-30] MEDS: LABETALOL HCL INJ 100 MG/20 ML VIAL 20 MG IV PUSH (01:30)
[2021-07-30 01:31] VITALS: BP 192/102; PULSE 64; RESP 16; O2SAT 100
[2021-07-30 01:34] LABS: Basophils Percent Auto 0.3 % (0.2-1.2); Eosinophils Absolute Auto 0.1 K/mm3 (0-0.3); Eosinophils Percent Auto 0.8 % (0-4.4); Hematocrit 40.4 % (42.0-52.0); Immature Granulocyte Absolute 0.02 K/mm3 (0.00-0.031); Immature Granulocyte Percent A 0.3 % (0-0.5); Lymphocytes Absolute Auto 0.95 K/mm3 (0.9-3.2); Lymphocytes Percent Auto 14.8 % (18.3-44.2); Mean Corpuscular HGB Conc 32.2 g/dl (32-36); Mean Corpuscular Volume 80.8 fl (80-100); Monocytes Absolute Auto 0.3 K/mm3 (0.1-0.6); Monocytes Percent Auto 4.5 % (2.6-8.5); Neutrophils Absolute Auto 5.1 K/mm3 (1.3-6.7); Neutrophils Percent Auto 79.3 % (45.5-73.1); Platelet Count Result 202 k/mm3 (150-375); White Blood Count 6.4 K/mm3 (4.5-10.0)
[2021-07-30 01:49] LABS: Alanine Aminotransferase 28 U/L (4-50); Albumin Level 4.6 g/dL (3.5-5.1); Alkaline Phosphatase 102 U/L (38-126); Anion Gap 15 mmol/L (8-16); Aspartate Amino Transferase 32 U/L (17-59); Bilirubin,Total 0.5 mg/dL (0.2-1.3); Blood Urea Nitrogen 14 mg/dL (9-20); Calcium 9.3 mg/dL (8.4-10.2); Carbon Dioxide 18 mmol/L (22-30); Chloride 110 mmol/L (98-107); Estimated Glomerular Filt Rate > 60; Glucose 127 mg/dL (65-110); Lipase 101 U/L (23-300); Potassium 3.3 mmol/L (3.4-5.0); Sodium 143 mmol/L (137-145)
--- NOTE | 2021-07-30 02:10 | PC.NURSE ---
made contact with lock to transfer pt back to [facility] rm 12-2 Noemy eta [id number]
[2021-07-30] MEDS: POTASSIUM CHLORIDE 20 MEQ PACKET (FOR LIQUID) PO (03:40)
[2021-07-30 03:43] VITALS: BP 209/113; PULSE 76; RESP 20; O2SAT 100
[2021-07-30] MEDS: hydrALAZINE HCL 20 MG/ML VIAL IV PUSH (03:43)
[2021-07-30 03:58] VITALS: BP 179/104; PULSE 95; RESP 18; O2SAT 100
--- NOTE | 2021-07-30 04:18 | PC.NURSE ---
made contact with [employer] for a new eta. lock is coming from [facility] eta 20 minutes
--- NOTE | 2021-07-30 04:51 | PC.NURSE ---
Marciano has arrived and is aware that pt is going to [facility]
--- NOTE | 2021-07-30 05:15 | PC.NURSE ---
late entry verbal order from marnie to use pic line for meds.
== END 2021-07-30 05:15 ==
PROVIDERS: Emergency Provider Emergency Medicine; PCP Internal Medicine
DX: R10.31 Right lower quadrant pain (principal); I16.0 Hypertensive urgency; E11.9 Type 2 diabetes mellitus without complications; G82.20 Paraplegia, unspecified; Z89.612 Acquired absence of left leg above knee; Z89.611 Acquired absence of right leg above knee; Z87.891 Personal history of nicotine dependence
CPT/HCPCS: 36415; 80053; 83690; 85025; 96374; 96375; 99284; A9270; J0360; J1170

== ENCOUNTER 2021-08-15 15:11 | Emergency (ER) | payer MEDICARE, MEDICAID, SELFPAY ==
[2021-08-15] VITALS (7 sets, daily range): BP systolic 147–205; BP diastolic 112–129; PULSE 54–65; RESP 20–26; TEMP 36.2; O2SAT 96–100
--- NOTE | ~2021-08-15 | CT_ITS ---
EXAMINATION: CT abdomen pelvis w con DATE: 08/15/2021 18:25 INDICATION: Abdominal pain. TECHNIQUE: Computed tomography (CT) of the abdomen and pelvis was performed with 100 mL Omnipaque 350 intravenous contrast. Automated exposure control and iterative reconstruction technique were employe d. The dose-length product was 1442.53 mGy-cm. COMPARISON: CT abdomen and pelvis 07/27/2021 FINDINGS: The visualized portions of the lung bases demonstrate mild atelectasis. No pleural effusion . The heart size is normal. No pericardial effusion. The liver and spleen are normal. Pneumobilia is noted, likely secondary to sphincterotomy. There are changes of cholecystectomy. The pancreas and adr enal glands are normal. There are cysts in the kidneys measuring up to 16 mm on the right. There is a filter in the inferior vena cava. A suprapubic catheter is noted. There is a conduit from the bladde r to the umbilicus. There are no dilated loops of bowel. The appendix is not visualized. There is a r ight inguinal hernia containing fat. There is a hany in left femoral diaphysis. There is extensive het erotopic ossification about the hips with ankylosis of the right hip joint. There is a sacral decubit us ulcer. There are chronic erosions of the distal sacrum. There is a decubitus ulcer superficial to left ischial tuberosity with chronic erosions of left ischial tuberosity. There is ankylosis of the s acroiliac joints. There are extensive erosions of bone at L5-S1 involving the anterior and posterior elements. Again seen is a large distribution of soft tissue at the pseudoarthrosis with heterotopic o ssification. IMPRESSION: 1. Sacral and left ischial decubitus ulcers with chronic osteomyelitis. 2. Pseudoarthrosis at L5-S1 with extensive erosions and fragmentation of bone and soft tissue at the articulation, stable from 06/16/21, likely chronic discitis/osteomyelitis and neuropathic spondyloarthr opathy. Reviewed, dictated and finalized at location A. IMPRESSION: 1. Sacral and left ischial decubitus ulcers with chronic osteomyelitis. 2. Pseudoarthrosis at L5-S1 with extensive erosions and fragmentation of bone a nd soft tissue at the articulation, stable from 06/16/21, likely chronic discitis /osteomyelitis and neuropathic spondyloarthropathy.
--- NOTE | 2021-08-15 16:08 | ED.GENADULT ---
HPI - General Adult General Chief complaint: Unspecified Stated complaint: High blood pressure Time Seen by Provider: 08/15/21 15:50 Source: patient, EMS and RN notes reviewed Mode of arrival: EMS Limitations: no limitations History of Present Illness HPI narrative: Patient is a 35-year-old male, who is paraplegic, senior living resident, here for lower abdominal pain, right side, 10 out of 10, nonradiating that started today, states that he needs that IV Dilaudid for his pain which he states helped him last time. Patient has had multiple ER visits for the same complaint. Patient is on a fentanyl patch and Dilaudid 2 mg p.o. every 6 at the senior living. Patient is telling me that he been having that kind of pain for years without a specific diagnosis. patient was discharged from [facility] 3 days ago and was hospitalized for 5 days for the same complaint. Related Data Home Medications Medication Instructions Recorded Confirmed Lactobacillus acidophilus 10 mg PO BID 06/16/21 06/16/21 [Acidophilus] Linzess 145 mcg PO DAILY 06/16/21 06/16/21 Santyl 1 applic TOPICAL DAILY 06/16/21 06/17/21 calcium carbonate 1,000 mg PO QID PRN 06/16/21 06/16/21 carvedilol 3.125 mg PO BID 06/16/21 06/16/21 cefepime 2 g IV BID 06/16/21 06/16/21 cyclobenzaprine 5 mg PO TID PRN 06/16/21 06/16/21 daptomycin 550 mg IV DAILY 06/16/21 06/16/21 fentanyl 50 mcg TOPICAL Q3D 06/16/21 06/16/21 gabapentin 300 mg PO HS 06/16/21 06/16/21 metronidazole [Flagyl] 500 mg PO TID 06/16/21 06/16/21 omeprazole 20 mg PO DAILY 06/16/21 06/16/21 ondansetron HCl 4 mg PO Q6H PRN 06/16/21 06/16/21 polyethylene glycol 3350 17 g PO DAILY PRN 06/16/21 06/16/21 potassium chloride 40 meq PO DAILY 06/16/21 06/16/21 sennosides-docusate sodium [Senna 1 tablet PO BID PRN 08/09/21 08/09/21 Plus] pantoprazole 40 mg PO QAM 08/15/21 Allergies Allergy/AdvReac Type Severity Reaction Status Date / Time metoclopramide [From Reglan] Allergy Other Verified 08/15/21 15:21 Review of Systems Review of Systems: CONSTITUTIONAL: Denies fever, chills, or sweats. EYES: Denies visual changes, redness, or discharge. ENT: Denies rhinorrhea, congestion, sore throat, or otalgia. CARDIOVASCULAR: Denies chest pain, palpitations, or edema. RESPIRATORY: Denies cough or dyspnea. GASTROINTESTINAL: Denies abdominal pain, nausea, vomiting, or diarrhea. GENITOURINARY: Denies dysuria or hematuria. SKIN: Denies rash or itching. MUSCULOSKELETAL: Denies back pain, joint pain, or myalgia. NEUROLOGIC: Denies headache, numbness, or weakness. PSYCHIATRIC: Denies anxiety or depression. [facility] Past Medical History Medical History Diabetes mellitus HTN (hypertension) Paraplegia Pyelonephritis Surgical History Surgical History S/P AKA (above knee amputation) bilateral Family History Family History Father History of blood clots Mother Diabetes mellitus Hypertension Social History Social History Years smoked: 11 Smoking status: Former smoker Tobacco type: cigarettes Alcohol intake: former Substance use: current Substance use type: marijuana Spiritual care concerns: No Exam Narrative: General appearance: Well-developed, well-nourished Skin: Normal color Head: Normocephalic, nontraumatic Eyes: Clear conjunctiva ENT: Oropharynx normal, ears normal, nose normal Neck: Supple, nontender Chest and respiratory: Airway patent, no respiratory distress, no accessory muscle use Heart: Regular rate/rhythm Abdomen: Soft, mild tenderness right lower quadrant, no guarding or rebound,, no organomegaly, quiet bowel sounds Vascular: Normal peripheral pulses, normal capillary refill. Musculoskeletal: Below-knee amputation bilaterally Neurologic: Alert and oriented ?3,
[2021-08-15 17:25] LABS: Add Urine Microscopic? YES; Appearance Urine Clear (Clear); Bilirubin Urine Negative (Negative); Blood Urine Negative (Negative); Color Urine Straw (Yellow); Glucose Urine UA Negative (Negative); Ketones Urine Trace mg/dL (Negative); Leukocyte Esterase Ur Trace LEU/UL (Negative); Mucus Urine Rare /lpf; Nitrate Urine Negative (Negative); Protein Urine Negative (Negative); Specific Grav Ur 1.013 (1.001-1.035); Squamous Epithelial Cell Urine Occasional /hpf (Few); Urobilinogen Urine Negative mg/dL (<2.0)
[2021-08-15 17:38] LABS: Basophils Percent Auto 0.3 % (0.2-1.2); Eosinophils Percent Auto 0.6 % (0-4.4); Hematocrit 38.6 % (42.0-52.0); Hemoglobin 12.2 g/dL (14.0-18.0); Immature Granulocyte Absolute 0.05 K/mm3 (0.00-0.031); Immature Granulocyte Percent A 0.7 % (0-0.5); Lymphocytes Absolute Auto 1.21 K/mm3 (0.9-3.2); Lymphocytes Percent Auto 17.3 % (18.3-44.2); Mean Corpuscular HGB Conc 31.6 g/dl (32-36); Mean Corpuscular Hemoglobin 25.6 pg (26-34); Mean Corpuscular Volume 80.9 fl (80-100); Monocytes Absolute Auto 0.2 K/mm3 (0.1-0.6); Monocytes Percent Auto 2.6 % (2.6-8.5); Neutrophils Absolute Auto 5.5 K/mm3 (1.3-6.7); Neutrophils Percent Auto 78.5 % (45.5-73.1); Platelet Count Result 327 k/mm3 (150-375); Red Blood Count 4.77 M/mm3 (4.6-6.20); Red Cell Distribution Width 16.7 % (11.5-14.5)
[2021-08-15] MEDS: ONDANSETRON INJ 4 MG/2 ML VIAL 8 MG IV PUSH (17:42)
[2021-08-15] MEDS: HYDROmorphone HCL INJ (*CRX) 1 MG/ML SYR IV PUSH ×3 (17:42→19:39)
[2021-08-15 17:49] LABS: Alanine Aminotransferase 104 U/L (4-50); Albumin Level 4.6 g/dL (3.5-5.1); Alkaline Phosphatase 108 U/L (38-126); Anion Gap 13 mmol/L (8-16); Aspartate Amino Transferase 73 U/L (17-59); Bilirubin,Total 0.3 mg/dL (0.2-1.3); Blood Urea Nitrogen 17 mg/dL (9-20); Calcium 9.5 mg/dL (8.4-10.2); Carbon Dioxide 22 mmol/L (22-30); Chloride 107 mmol/L (98-107); Estimated Glomerular Filt Rate > 60; Glucose 119 mg/dL (65-110); Potassium 3.8 mmol/L (3.4-5.0); Sodium 142 mmol/L (137-145)
[2021-08-15 17:50] LABS: Prothrombin Time 13.3 Seconds (11.1-14.7)
[2021-08-15 17:51] LABS: Lactic Acid Reflex 1.2 mmol/L (0.7-2.1); Partial Thromboplastin Time 28.7 SECONDS (22.3-36.8)
[2021-08-15 18:45] LABS: CRP 1.4 mg/dL (<1.0)
--- NOTE | 2021-08-15 19:11 | PC.NURSE ---
report called to [facility] malaika mcmillan
--- NOTE | 2021-08-15 19:28 | PC.NURSE ---
Assumed care of pt at this time, report taken from nataly [facility]IR[facility]. Pt resting on stretcher, eyes closed, with family at bedside. VS taken, EDP Germania made aware of pts elevated BP. Pt c/o pain and family requests pain medication before transport back to facility. Per EDP, retake pts BP in 10 minutes. New orders on chart.
--- NOTE | 2021-08-15 19:51 | PC.NURSE ---
[facility] here.
== END 2021-08-15 20:07 ==
PROVIDERS: Emergency Provider Emergency Medicine; PCP Internal Medicine
DX: R10.31 Right lower quadrant pain (principal); E11.9 Type 2 diabetes mellitus without complications; I10 Essential (primary) hypertension; Z89.612 Acquired absence of left leg above knee; Z89.611 Acquired absence of right leg above knee; G82.20 Paraplegia, unspecified; Z87.891 Personal history of nicotine dependence; L89.159 Pressure ulcer of sacral region, unspecified stage; M46.28 Osteomyelitis of vertebra, sacral and sacrococcygeal region
CPT/HCPCS: 36415; 74177; 80053; 81001; 83605; 85025; 85610; 85730; 86140; 87040; 96374; 96375; 96376; 99284; J1170; J2405; Q9967

== ENCOUNTER 2022-05-01 22:00 | Inpatient (IN) | payer OTHER, SELFPAY ==
[2022-05-01] VITALS (10 sets, daily range): BP systolic 184–200; BP diastolic 100–121; PULSE 60–101; RESP 14–27; TEMP 36.9; O2SAT 99
--- NOTE | ~2022-05-01 | CT_ITS ---
EXAMINATION: CT abdomen pelvis w con INDICATION: Abdominal pain TECHNIQUE: Computed tomographic images of the abdomen and pelvis were obtained after the administrati on of 100 cc of Omnipaque 300 intravenous contrast. The dose-length product (DLP) was 2231.33 mGy-cm. Automated exposure control and iterative reconstruction technique were employed. COMPARISON: 08/15/2021 FINDINGS: Minimal dependent atelectasis is present in the lung bases. The heart size is normal. Mild bilateral gynecomastia is noted. The gallbladder is surgically absent. There are is moderate distenti on of the stomach. The liver, spleen, pancreas, and adrenal glands are normal. There are cysts of the kidneys measuring up to 2.3 cm on the right. An IVC filter is noted. No pathologically enlarged abdo bertha or pelvic lymph nodes are identified. There is no free intraperitoneal gas or evidence of bowel obstruction. Again seen is extensive heterotopic ossification surrounding the hips. Erosive bone monse nges are noted at L5-S1. A moderate volume of stool is present in the rectum. The urinary bladder dem onstrates a chronically lobulated contour. There is stable line is noted at the ileocecal junction. T here are fluid collections measuring 2 cm and 3 cm at the base of the penis, possibly chronic. A decu bitus ulceration is again seen superficial to the left initial tuberosity. There is also a sacral dec ubitus ulcer.. IMPRESSION: 1. Moderate gastric distention. 2. Sacral and initial decubitus ulcerations. 3. Findings suggestive of chronic discitis/osteomyelitis at L5-S1. 4. Fluid collections at the base of the penis of unclear etiology which appear chronic. Reviewed, dictated and finalized at location A.
--- NOTE | ~2022-05-01 | XR_ITS ---
EXAMINATION: XR chest 1V portable INDICATION: Right upper quadrant pain TECHNIQUE: Portable AP chest at 1032 hours COMPARISON: 07/27/2021 FINDINGS: The lungs are free of acute opacities. No pleural effusion or pneumothorax. The cardiomedia stinal silhouette is normal. IMPRESSION: 1. No acute cardiopulmonary abnormality. Reviewed, dictated and finalized at location F.
--- NOTE | ~2022-05-01 | XR_ITS ---
EXAMINATION: XR abdomen obstructive series DATE: 05/04/2022 15:33 INDICATION: Nausea TECHNIQUE: Upright and supine views of the abdomen were obtained. COMPARISON: CT, 05/01/2022 FINDINGS: There are multiple gas-filled loops of mildly distended large and small bowel. No free intr aperitoneal gas is identified. There are no air-fluid levels. There is a large volume of stool in the distal colon. An IVC filter is noted. There is extensive heterotopic ossification surrounding the hi ps. IMPRESSION: 1. Gas-filled loops of mildly distended large and small bowel, likely ileus. No free intraperitoneal gas identified. Reviewed, dictated and finalized at location A.
--- NOTE | ~2022-05-01 | CT_ITS ---
EXAMINATION: CT brain wo con INDICATION: Headache COMPARISON: None TECHNIQUE: Standard unenhanced head CT. The dose-length product (DLP) was 756.67 mGy-cm. The mA was a djusted according to patient size. Iterative reconstruction technique was employed. FINDINGS: There is no intracranial hemorrhage, acute infarction, or abnormal mass lesion. The ventric les are normal. There is no abnormal mass effect or midline shift. The caicedo-white matter differentiat ion is normal. The basal cisterns are patent. The orbits are normal. There are polyps or mucous reten tion cysts in the left maxillary sinus. IMPRESSION: 1. No acute intracranial abnormality. Reviewed, dictated and finalized at location A.
--- NOTE | ~2022-05-01 | XR_ITS ---
XR abdomen obstructive series DATE: 05/05/2022 10:03 INDICATION: Ileus TECHNIQUE: Supine and upright AP views COMPARISON: 05/04/2022 abdomen for NG tube 05/04/2022 obstructive series 04/27/2022 CT abdomen pelvis FINDINGS: An NG tube is present within the upper stomach. There is a prominent amount of fecal material within the rectum and colon. No bowel obstruction is ev ident. No intraperitoneal free air is detected. Status post cholecystectomy. IVC filter is noted. Extensive degenerative changes of the lower thoracic and lumbar spine. There is chronic deformity and fusion at the hip joints. Intramedullary hany of left femur. IMPRESSION: Nonspecific abdomen; prominent amount of fecal material in rectum and colon NG tube in stomach Status post cholecystectomy IVC filter Reviewed, dictated and finalized at Location A. Reviewed, dictated and finalized at location B. IMPRESSION: Nonspecific abdomen; prominent amount of fecal material in rectum a nd colon NG tube in stomach Status post cholecystectomy IVC filter
--- NOTE | ~2022-05-01 | XR_ITS ---
EXAM: XR abdomen NG/feed tube insert DATE: 05/04/2022 21:00 HISTORY: ng tube placement . COMPARISON: X-ray abdomen obstructive series, same date. FINDINGS: NG tube terminates with its tip and side port projecting over the stomach. Bibasilar atelec tasis. Gas present within a nondilated stomach, bowel gas pattern is otherwise excluded from the fiel d-of-view. No abnormal abdominal calcification. Regional bones and soft tissues normal for age. IMPRESSION: NG tube, in good position. Reviewed, dictated and finalized at location K. IMPRESSION: NG tube, in good position.
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
[2022-05-01] MEDS: ONDANSETRON INJ 4 MG/2 ML VIAL IV PUSH (22:14)
[2022-05-01] MEDS: SODIUM CHLORIDE 0.9% IV 1,000 ML 999 ML IV CONT (22:14)
[2022-05-01 22:17] LABS: Basophils Percent Auto 0.2 % (0.2-1.2); Hematocrit 40.3 % (42.0-52.0); Hemoglobin 13.5 g/dL (14.0-18.0); Immature Granulocyte Absolute 0.06 K/mm3 (0.00-0.031); Immature Granulocyte Percent A 0.5 % (0-0.5); Lymphocytes Absolute Auto 1.02 K/mm3 (0.9-3.2); Mean Corpuscular HGB Conc 33.5 g/dl (32-36); Mean Corpuscular Hemoglobin 26.8 pg (26-34); Mean Corpuscular Volume 80.1 fl (80-100); Mean Platelet Volume 11.1 fl (7.4-10.4); Monocytes Absolute Auto 0.4 K/mm3 (0.1-0.6); Neutrophils Absolute Auto 11.2 K/mm3 (1.3-6.7); Neutrophils Percent Auto 88.3 % (45.5-73.1); Platelet Count Result 247 k/mm3 (150-375); Red Blood Count 5.03 M/mm3 (4.6-6.20); Red Cell Distribution Width 14.2 % (11.5-14.5); White Blood Count 12.7 K/mm3 (4.5-10.0)
--- NOTE | 2022-05-01 22:22 | ECG_ITS ---
Measurements Intervals [place] Rate: 83 P: 52 OR: 182 QRS: 53 QRSD: 104 T: -2 QT: 387 QTc: 455 Interpretive Statements SINUS RHYTHM WITH OCCASIONAL SUPRAVENTRICULAR PREMATURE COMPLEXES NONSPECIFIC T-WAVE ABNORMALITY ABNORMAL ECG COMPARED TO ECG 06/16/2021 23:26:25 HEART RATE INCREASED Electronically Signed On 05-02-2022 7:54:08 CDT by Mono Brown M.D.
[2022-05-01 22:28] LABS: Alanine Aminotransferase 31 U/L (6-50); Albumin Level 4.7 g/dL (3.5-5.1); Alkaline Phosphatase 171 U/L (38-126); Anion Gap 13 mmol/L (8-16); Aspartate Amino Transferase 27 U/L (17-59); Blood Urea Nitrogen 13 mg/dL (9-20); Calcium 9.3 mg/dL (8.4-10.2); Carbon Dioxide 16 mmol/L (22-30); Chloride 109 mmol/L (98-107); Estimated Glomerular Filt Rate > 60; Glucose 123 mg/dL (65-110); Lipase 87 U/L (23-300); Potassium 3.5 mmol/L (3.4-5.0); Sodium 138 mmol/L (137-145)
[2022-05-01] MEDS: HYDROmorphone HCL INJ (*CRX) 1 MG/ML SYR 0.5 MG IV PUSH (22:33)
--- NOTE | 2022-05-01 22:39 | PC.NURSE ---
Family arrives to bedside.
[2022-05-01 22:49] LABS: Troponin I < 0.012 ng/mL (0.000-0.034)
--- NOTE | 2022-05-01 22:49 | PC.NURSE ---
Patient taken to CT via stretcher.
--- NOTE | 2022-05-01 23:21 | PC.NURSE ---
Attempted to obtain blood cultures and lactic,unsuccessful. dish technician also attempted, unsuccessful. corporate buyer notified.
--- NOTE | 2022-05-01 23:23 | PC.NURSE ---
Called phlebotomy, spoke with Bronwyn, she stated she will be down to draw patient.
--- NOTE | 2022-05-01 23:50 | PC.NURSE ---
Plebotomist here to draw patient.
[2022-05-02] VITALS (30 sets, daily range): BP systolic 114–200; BP diastolic 66–121; PULSE 62–116; RESP 13–22; TEMP 36.4–36.9; O2SAT 98–100; BMI 72.4; BMI 71.3
[2022-05-02 00:21] LABS: Appearance Urine Clear (Clear); Bilirubin Urine Negative (Negative); Blood Urine 2+ (Negative); Color Urine Yellow (Yellow); Glucose Urine UA Negative (Negative); Ketones Urine 2+ mg/dL (Negative); Leukocyte Esterase Ur 3+ LEU/UL (Negative); Nitrate Urine Positive (Negative); Protein Urine Negative (Negative); Specific Grav Ur <= 1.005 (1.001-1.035); pH Urine 5.5 (5.0-9.0)
[2022-05-02 00:23] LABS: Add Urine Microscopic? YES; Bacteria Urine 1+ /hpf; Mucus Urine Rare /lpf; RBC Urine 21-50 /hpf (0-2); Squamous Epithelial Cell Urine Few /hpf (Few); WBC Urine >75 /hpf
[2022-05-02] MEDS: DICYCLOMINE HCL 10 MG CAPSULE 20 MG PO (00:25)
[2022-05-02] MEDS: HYDROmorphone HCL INJ (*CRX) 1 MG/ML SYR 0.5 MG IV PUSH (00:26)
[2022-05-02 00:42] LABS: Troponin I < 0.012 ng/mL (0.000-0.034)
[2022-05-02 01:23] LABS: Lactic Acid Reflex 1.6 mmol/L (0.7-2.0)
--- NOTE | 2022-05-02 01:49 | PC.NURSE ---
Patient accepted to [facility]...on waitlist for a bed.
[2022-05-02] MEDS: ONDANSETRON INJ 4 MG/2 ML VIAL IV PUSH (01:54)
[2022-05-02 02:05] LABS: SARS-CoV-2 RNA PCR Negative
--- NOTE | 2022-05-02 02:40 | PC.NURSE ---
Eunice, patients caregiver at the [facility] calls to get update on patient.
--- NOTE | 2022-05-02 03:18 | PC.NURSE ---
Cam, with [facility] transfer center calls to get update and triage information. She states patient is on a waiting list and could possibly be days for a room to be available.
[2022-05-02] MEDS: HYDROmorphone HCL INJ (*CRX) 1 MG/ML SYR IV PUSH ×3 (04:12→14:30)
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
--- NOTE | 2022-05-02 05:12 | PC.NURSE ---
This patient, Shawn Casey Jr., was admitted to IMU Room 212-01. Patient/family oriented to hospital policies and general routines including ID bracelet, bed and alarms, visiting hours, pain management, procedures, bathroom and other care routines, personal items, smoking policy, room service/diet, and visiting hours. Information on how to activate the Rapid Response Team has been discussed. Patient/Family are encouraged to report perceived risks to care and to ask questions if they do not understand what they are told or what they should do.
[2022-05-02] MEDS: LACTATED RINGERS 1,000 ML 125 ML IV CONT ×2 (06:02→14:31)
--- NOTE | 2022-05-02 06:32 | PC.NURSE ---
Spoke to Debra at the [facility] Transfer Center and informed her that this patient has been admitted to our facility but would like to remain on waitlist. Advised of Room # and phone # to call for patient status, etc.
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
[2022-05-02] MEDS: fentaNYL (*CRX) 50 MCG PATCH TRANSDERM (14:35)
--- NOTE | 2022-05-02 14:39 | PC.NURSE ---
Fentanyl patch dated 04/29/22 removed from left chest, placed in appropriate disposal receptacle.
--- NOTE | 2022-05-02 15:52 | WPDURCON ---
Assessment and Plan Assessment and plan (1) Acute UTI: Code(s): N39.0 - Urinary tract infection, site not specified Status: Acute Assessment and Plan: 1. He should continue doing the intermittent catheterization every 4 hours. 2. Antibiotics per primary team 3. He would benefit from follow up with the trauma/reconstruction urology team at [facility] (Dr. Snyder) to see if further efforts at urethral closure could be done. Prior attempt at [facility] was not successful. Urology Consult Note HPI Date Seen: 05/02/22 Requesting Physician: Ashley Kaplan MD Primary Care Provider: Rick Carpio, MD Consult Narrative Narrative: Shawn Casey Jr. is a 36 year old male who has a complex urologic history with bladder neck closure and augmentation with continent catheterizable channel creation at [facility] in 2011. He subsequently developed bladder and urethral stones that were treated at [facility] in [place] in 2020. He had complications from the surgery managed at [facility]. He subsequently has continued to have urinary leakage. He continues to do CIC through the umbilical channel every 4 hours or more often due to persistent leakage through the urethra. He has been admitted to [facility] for a possible UTI. He states he has not difficulty performing the catheterizations of his bladder. Review of Systems Constitutional: Comments: no symptoms PMFSH Past Medical History Medical History (Updated 05/02/22 @ 04:48 by Ashley Kaplan MD) Abdominal pain Chest pain Diabetes Diabetes mellitus Discitis DVT prophylaxis Essential hypertension HTN (hypertension) Hypertensive urgency Paraplegia Pyelonephritis Surgical History Surgical History S/P AKA (above knee amputation) bilateral Family History Family History Father History of blood clots Mother Diabetes mellitus Hypertension Social History Social History Smoking packs per day: 1 Smoking cigarettes per day: 20.0 Years smoked: 12 Smoking pack-years: 12.00 Smoking status: Former smoker Tobacco type: cigarettes Smoking end date: 10/15/18 Alcohol intake: former Substance use: current Substance use type: marijuana Last use: 04/25/22 Spiritual care concerns: Yes (Orthodox) Meds Home Medications and Allergies Home Medications Medication Instructions Recorded Confirmed Type fentanyl 50 mcg/hr transdermal 1 patch topical Q3D 06/16/21 05/02/22 History patch omeprazole 20 mg tablet,delayed 20 mg PO BID 06/16/21 05/02/22 History release ondansetron HCl 4 mg tablet 4 mg PO Q6H PRN Nausea And Vomiting 06/16/21 05/02/22 History polyethylene glycol 3350 17 gram 17 g PO DAILY PRN Constipation 06/16/21 05/02/22 History oral powder packet potassium chloride 20 mEq 40 meq PO DAILY 06/16/21 05/02/22 History tablet,extended release(part/cryst) sennosides 8.6 mg-docusate sodium 1 tablet PO DAILY 06/16/21 05/02/22 History 50 mg tablet (Senna Plus) acetaminophen 500 mg capsule 500 mg PO Q6H PRN pain or fever 05/02/22 05/02/22 History amino acids-protein hydrolysate 15 1 ea PO BID 05/02/22 05/02/22 History gram-100 kcal/30 mL oral liquid pkt (Pro-Stat Sugar Free) ascorbic acid (vitamin C) 500 mg 500 mg PO BID 05/02/22 05/02/22 History tablet clonidine 0.3 mg/24 hr weekly 1 patch transdermal WEEKLY 05/02/22 05/02/22 History transdermal patch clonidine HCl 0.1 mg tablet 0.1 mg PO BID PRN high blood 05/02/22 05/02/22 History pressure cyclobenzaprine 5 mg tablet 5 mg PO TID PRN Muscle Spasm 05/02/22 05/02/22 History docusate sodium 100 mg capsule 100 mg PO BID 05/02/22 05/02/22 History (Colace) gabapentin 100 mg capsule 100 mg PO TID 05/02/22 05/02/22 History lactulose 10 gram/15 mL oral 30 ml PO DAILY 05/02/22 05/02/22 History
[2022-05-02] MEDS: oxyCODONE HCL (*CRX) 5 MG TAB IR PO (17:42)
[2022-05-02] MEDS: polyethylene glycoL 3350 17 GM POWD.PACK PO (17:42)
[2022-05-02] MEDS: SOD HYPOCHLORITE 1/4 STRENGTH 473 ML 1 APPLIC TOPICAL (17:44)
[2022-05-02] MEDS: LACTULOSE 20 GM/30 ML UDC PO (17:44)
[2022-05-02] MEDS: THERAPEUTIC MULTIVITAMINS/MINERALS TAB (*BKC) 1 TABLET PO (17:45)
[2022-05-02] MEDS: POTASSIUM CHLORIDE 20 MEQ TABLET.ER 40 MEQ PO (17:45)
[2022-05-02] MEDS: LINACLOTIDE 145 MCG CAPSULE 290 MCG PO (17:45)
[2022-05-02] MEDS: GABAPENTIN 100 MG CAPSULE PO (17:46)
[2022-05-02] MEDS: NIFEdipine 30 MG TAB.ER.24 60 MG PO (17:47)
[2022-05-02] MEDS: ASCORBIC ACID 500 MG TABLET PO (17:47)
[2022-05-02] MEDS: DOCUSATE SODIUM 100 MG CAPSULE PO (17:55)
[2022-05-02] MEDS: PANTOPRAZOLE 40 MG TABLET PO (21:31)
[2022-05-02] MEDS: SILVER SULFADIAZINE 1% CR 400 GM JAR (*BKC) 1 APPLIC TOPICAL (21:32)
[2022-05-03] VITALS (9 sets, daily range): BP systolic 111–139; BP diastolic 68–78; PULSE 77–102; RESP 18–22; TEMP 36.2–36.6; O2SAT 99–100
--- NOTE | 2022-05-03 00:55 | PC.NURSE ---
05/02 at 2019, [facility] called me for update. Still no bed available for this patient.
[2022-05-03] MEDS: LACTATED RINGERS 1,000 ML 125 ML IV CONT (01:47)
--- NOTE | 2022-05-03 08:29 | PM.IMPN ---
Progress Note: A&P Assessment and Plan (1) Abdominal pain: Code(s): R10.9 - Unspecified abdominal pain Status: Acute (2) Acute UTI: Code(s): N39.0 - Urinary tract infection, site not specified Status: Acute Assessment and Plan: Has complicated hx and is planned for transfer to [facility] once bed is available. Continue vancomycin and cefepime. (3) Sacral decubitus ulcer, stage III: Code(s): L89.153 - Pressure ulcer of sacral region, stage 3 Status: Acute Assessment and Plan: Continue wound care. (4) Osteomyelitis: Code(s): M86.9 - Osteomyelitis, unspecified Status: Acute Assessment and Plan: Noted on CT. Will need MRI to confirm diagnosis but will defer for now as planned for transfer to [facility]. Vancomycin and cefepime are adequate coverage. (5) Hypertensive urgency: Code(s): I16.0 - Hypertensive urgency Status: Acute Assessment and Plan: Continue home medicaitons. (6) Paraplegia: Code(s): G82.20 - Paraplegia, unspecified Status: Acute (7) Diabetes mellitus: Code(s): E11.9 - Type 2 diabetes mellitus without complications Status: Acute Subjective Date/time seen: 05/03/22 08:29 Patient has no complaints and says he is doing ok. Review of Systems Gastrointestinal: Gastrointestinal: Reports abdominal pain Objective Data Vital Signs Vital Signs: Vital Signs - 24 hr 05/02/22 12:00 05/02/22 10:00 05/02/22 12:00 Temperature 98.3 F Pulse Rate 116 H 112 H 107 H Respiratory Rate 16 Blood Pressure 119/66 Pulse Oximetry 100 Oxygen Delivery 05/02/22 14:00 05/02/22 12:00 05/02/22 16:00 Temperature Pulse Rate 111 H 111 H Respiratory Rate 16 Blood Pressure Pulse Oximetry 100 Oxygen Delivery Room Air Room Air 05/02/22 16:00 05/02/22 16:00 05/02/22 18:00 Temperature 98.3 F Pulse Rate 113 H 109 H 106 H Respiratory Rate 16 Blood Pressure 114/68 Pulse Oximetry 100 Oxygen Delivery 05/02/22 20:00 05/02/22 20:00 05/02/22 20:00 Temperature 97.8 F Pulse Rate 105 H 108 H Respiratory Rate 22 H Blood Pressure 128/75 Pulse Oximetry 100 100 Oxygen Delivery Room Air 05/02/22 22:00 05/03/22 00:00 05/03/22 00:00 Temperature Pulse Rate 116 H 102 H Respiratory Rate Blood Pressure Pulse Oximetry 100 Oxygen Delivery Room Air 05/03/22 00:00 05/03/22 02:00 05/03/22 04:00 Temperature 97.8 F Pulse Rate 100 101 H 93 Respiratory Rate 22 H Blood Pressure 139/75 Pulse Oximetry 100 Oxygen Delivery 05/03/22 04:00 05/03/22 04:00 05/03/22 08:00 Temperature 97.2 F L Pulse Rate 87 85 Respiratory Rate 20 Blood Pressure 137/78 Pulse Oximetry 100 100 Oxygen Delivery Room Air Intake/Output Intake/Output: Intake & Output 04/30/22 05/01/22 05/02/22 05/03/22 23:59 23:59 23:59 23:59 Intake Total 1000 5220 750 Output Total 1250 400 Balance 1000 3970 350 Meds/Results Medications: Active Medications Generic Name Dose Route Start Last Admin Trade Name Freq PRN Reason Stop Dose Admin Acetaminophen 500 mg 05/02/22 13:28 Acetaminophen 500 Mg Tablet PO Q6H PRN pain 1-3 or fever Ascorbic Acid 500 mg 05/02/22 17:00 05/02/22 17:47 Ascorbic Acid 500 Mg Tablet PO 500 mg BID MARYANN Administration Clonidine HCl 1 patch 05/06/22 09:00 Clonidine 0.3 Mg/24 Hr Patch TRANSDERM We@0900 MARYANN Clonidine HCl 0.1 mg 05/02/22 13:28 Clonidine Hcl 0.1 Mg Tablet PO BID PRN high blood pressure Cyclobenzaprine HCl 5 mg 05/02/22 13:28 Cyclobenzaprine Hcl 5 Mg Tablet PO TID PRN Muscle Spasm Docusate Sodium 100 mg 05/02/22 17:00 05/02/22 17:55 Docusate Sodium 100 Mg Capsule PO 100 mg BID MARYANN Administration Fentanyl 50 mcg 05/02/22 14:00 05/02/22 14:35 Fentanyl (*Crx) 50 Mcg Patch TRANSDERM 50 mcg
[2022-05-03 09:02] LABS: Basophils Percent Auto 0.4 % (0.2-1.2); Eosinophils Absolute Auto 0.1 K/mm3 (0-0.3); Eosinophils Percent Auto 1.6 % (0-4.4); Hematocrit 32.8 % (42.0-52.0); Hemoglobin 10.6 g/dL (14.0-18.0); Immature Granulocyte Absolute 0.06 K/mm3 (0.00-0.031); Immature Granulocyte Percent A 0.8 % (0-0.5); Lymphocytes Absolute Auto 2.54 K/mm3 (0.9-3.2); Lymphocytes Percent Auto 32.9 % (18.3-44.2); Mean Corpuscular HGB Conc 32.3 g/dl (32-36); Mean Corpuscular Volume 83.5 fl (80-100); Mean Platelet Volume 11.3 fl (7.4-10.4); Monocytes Absolute Auto 0.6 K/mm3 (0.1-0.6); Monocytes Percent Auto 7.6 % (2.6-8.5); Neutrophils Absolute Auto 4.4 K/mm3 (1.3-6.7); Neutrophils Percent Auto 56.7 % (45.5-73.1); Platelet Count Result 181 k/mm3 (150-375); Red Blood Count 3.93 M/mm3 (4.6-6.20); Red Cell Distribution Width 14.7 % (11.5-14.5); White Blood Count 7.7 K/mm3 (4.5-10.0)
[2022-05-03 09:13] LABS: Anion Gap 7 mmol/L (8-16); Blood Urea Nitrogen 12 mg/dL (9-20); Carbon Dioxide 21 mmol/L (22-30); Chloride 110 mmol/L (98-107); Estimated Glomerular Filt Rate > 60; Glucose 94 mg/dL (65-110); Potassium 4.1 mmol/L (3.4-5.0); Sodium 138 mmol/L (137-145)
[2022-05-03] MEDS: NIFEdipine 30 MG TAB.ER.24 60 MG PO (09:27)
[2022-05-03] MEDS: LINACLOTIDE 145 MCG CAPSULE 290 MCG PO (09:27)
[2022-05-03] MEDS: SENNA/DOCUSATE SODIUM TABLET 1 TAB PO (09:27)
[2022-05-03] MEDS: ASCORBIC ACID 500 MG TABLET PO ×2 (09:27→17:46)
[2022-05-03] MEDS: DOCUSATE SODIUM 100 MG CAPSULE PO ×2 (09:27→17:46)
[2022-05-03] MEDS: PANTOPRAZOLE 40 MG TABLET PO ×2 (09:27→20:45)
[2022-05-03] MEDS: GABAPENTIN 100 MG CAPSULE PO ×3 (09:27→17:46)
[2022-05-03] MEDS: LACTULOSE 20 GM/30 ML UDC PO (09:27)
[2022-05-03] MEDS: POTASSIUM CHLORIDE 20 MEQ TABLET.ER 40 MEQ PO (09:29)
[2022-05-03] MEDS: THERAPEUTIC MULTIVITAMINS/MINERALS TAB (*BKC) 1 TABLET PO (10:27)
[2022-05-03] MEDS: SOD HYPOCHLORITE 1/4 STRENGTH 473 ML 1 APPLIC TOPICAL (10:28)
[2022-05-03] MEDS: SILVER SULFADIAZINE 1% CR 400 GM JAR (*BKC) 1 APPLIC TOPICAL (10:28)
[2022-05-03] MEDS: HYDROmorphone HCL INJ (*CRX) 1 MG/ML SYR IV PUSH (11:22)
--- NOTE | 2022-05-03 11:55 | WPDUROPN2 ---
Progress Note: A&P Assessment and Plan (1) Acute UTI: Code(s): N39.0 - Urinary tract infection, site not specified Status: Acute Assessment and Plan: On appropriate antibiotics. Continue management per hospitalist team. Continue every 4 hour catheterization through the [facility]. He will need follow up with the reconstruction urology team at [facility] in the future as he would like further revision of his urethra. Subjective Subjective Date/Time Seen: 05/03/22 11:55: He feels well. Continuing catheterization every 4 hours. UC has grown e. coli. On appropriate antibiotics. Exam Narrative: resting comfortably Objective Data Vital Signs Vital Signs: Vital Signs - 24 hr 05/02/22 12:00 05/02/22 12:00 05/02/22 14:00 Temperature 36.8 C Pulse Rate 116 H 107 H 111 H Respiratory Rate 16 Blood Pressure 119/66 Pulse Oximetry 100 Oxygen Delivery 05/02/22 12:00 05/02/22 16:00 05/02/22 16:00 Temperature Pulse Rate 111 H 113 H Respiratory Rate 16 Blood Pressure Pulse Oximetry 100 Oxygen Delivery Room Air Room Air 05/02/22 16:00 05/02/22 18:00 05/02/22 20:00 Temperature 36.8 C 36.6 C Pulse Rate 109 H 106 H 105 H Respiratory Rate 16 22 H Blood Pressure 114/68 128/75 Pulse Oximetry 100 100 Oxygen Delivery 05/02/22 20:00 05/02/22 20:00 05/02/22 22:00 Temperature Pulse Rate 108 H 116 H Respiratory Rate Blood Pressure Pulse Oximetry 100 Oxygen Delivery Room Air 05/03/22 00:00 05/03/22 00:00 05/03/22 00:00 Temperature 36.6 C Pulse Rate 102 H 100 Respiratory Rate 22 H Blood Pressure 139/75 Pulse Oximetry 100 100 Oxygen Delivery Room Air 05/03/22 02:00 05/03/22 04:00 05/03/22 04:00 Temperature Pulse Rate 101 H 93 Respiratory Rate Blood Pressure Pulse Oximetry 100 Oxygen Delivery Room Air 05/03/22 04:00 05/03/22 08:00 05/03/22 08:00 Temperature 36.2 C L 36.6 C Pulse Rate 87 85 77 Respiratory Rate 20 18 Blood Pressure 137/78 132/72 Pulse Oximetry 100 99 Oxygen Delivery 05/03/22 08:00 Temperature Pulse Rate 77 Respiratory Rate 18 Blood Pressure Pulse Oximetry 99 Oxygen Delivery Room Air Intake/Output Intake/Output: Intake & Output 04/30/22 05/01/22 05/02/22 05/03/22 23:59 23:59 23:59 23:59 Intake Total 1000 5220 1280 Output Total 1250 400 Balance 1000 3970 880 Meds/Results Medications: Active Medications Generic Name Dose Route Start Last Admin Trade Name Freq PRN Reason Stop Dose Admin Acetaminophen 500 mg 05/02/22 13:28 Acetaminophen 500 Mg Tablet PO Q6H PRN pain 1-3 or fever Ascorbic Acid 500 mg 05/02/22 17:00 05/03/22 09:27 Ascorbic Acid 500 Mg Tablet PO 500 mg BID MARYANN Administration Clonidine HCl 1 patch 05/06/22 09:00 Clonidine 0.3 Mg/24 Hr Patch TRANSDERM We@0900 MARYANN Clonidine HCl 0.1 mg 05/02/22 13:28 Clonidine Hcl 0.1 Mg Tablet PO BID PRN high blood pressure Cyclobenzaprine HCl 5 mg 05/02/22 13:28 Cyclobenzaprine Hcl 5 Mg Tablet PO TID PRN Muscle Spasm Docusate Sodium 100 mg 05/02/22 17:00 05/03/22 09:27 Docusate Sodium 100 Mg Capsule PO 100 mg BID MARYANN Administration Fentanyl 50 mcg 05/02/22 14:00 05/02/22 14:35 Fentanyl (*Crx) 50 Mcg Patch TRANSDERM 50 mcg Q72HR MARYANN Administration Gabapentin 100 mg 05/02/22 13:00 05/03/22 09:27 Gabapentin 100 Mg Capsule PO 100 mg TID MARYANN Administration Hydromorphone HCl 1 mg 05/02/22 05:39 05/03/22 11:22 Hydromorphone Hcl Inj (*Crx) 1 Mg/Ml Syr IV PUSH 1 mg Q3H PRN Administration Pain Rated 7-10 Lactated Ringer's 1,000 mls @ 125 mls/hr 05/02/22 02:40 05/03/22 01:47 Lr - Lactated Ringers Iv IV CONT 125 mls/hr .Q8H MARYANN Administration Vancomycin HCl 1,500 mg in 500 mls @ 333.333 mls/hr 05/02/22 10:00 05/03/22 11:49 Vancomycin 1,500 Mg/D5w 500 Ml IVPB 333 mls/hr Q8H S
[2022-05-03] MEDS: oxyCODONE/ACETAMINOPHEN (*CRX) 5-325 MG TABLET 1 TABLET PO ×2 (15:43→23:45)
--- NOTE | 2022-05-03 22:24 | PC.NURSE ---
[facility] called for updates on patient and to let us know. no bed at this time.
[2022-05-04] VITALS (8 sets, daily range): BP systolic 130–153; BP diastolic 72–98; PULSE 66–101; RESP 12–20; TEMP 36.1–36.8; O2SAT 98–100
[2022-05-04] MEDS: HYDROmorphone HCL INJ (*CRX) 1 MG/ML SYR IV PUSH ×5 (02:23→22:45)
[2022-05-04 05:10] LABS: Estimated Glomerular Filt Rate > 60
--- NOTE | 2022-05-04 10:14 | PM.IMPN ---
Progress Note: A&P Assessment and Plan (1) Abdominal pain: Code(s): R10.9 - Unspecified abdominal pain Status: Acute Assessment and Plan: Patient with diffuse abdominal pain. He is status post cholecystectomy. CT scan on admission showing moderate gastric distention of unclear significance. He also has a fluid collection at the base of the penis of unclear etiology but appears to be chronic. This is probably related to his complex urologic history. He also has moderate volume of stool in the rectum. Unclear if he is having normal bowel movements. Was also found to have UTI and is on appropriate antibiotics at this time. Overall his abdominal pain is better but he is nauseous at this time so will check an obstructive series today. He has Zofran available. He is not on any G LP-1. (2) Acute UTI: Code(s): N39.0 - Urinary tract infection, site not specified Status: Acute Assessment and Plan: Patient found to have complicated UTI related to his urologic surgeries. Blood cultures are no growth today. Urine culture growing E coli sensitive to Cefepime. Currently on vancomycin and cefepime. (3) Sacral decubitus ulcer, stage III: Code(s): L89.153 - Pressure ulcer of sacral region, stage 3 Status: Acute Assessment and Plan: Wound care nurse evaluation noted. No evidence of acute infection. Continue current dressing changes. (4) Osteomyelitis: Code(s): M86.9 - Osteomyelitis, unspecified Status: Acute Assessment and Plan: CT scan shows chronic diskitis/osteomyelitis at L5-S1. He has a hx of epidural abscess and lumbar osteomyelitis in the past treated at [place]. Unclear if this truly cleared and this is chronic in nature or if he is acute findings of osteomyelitis. Plan is for transfer to a tertiary care center. Will continue IV antibiotics (5) Hypertensive urgency: Code(s): I16.0 - Hypertensive urgency Status: Acute Assessment and Plan: Blood pressure was 200/100 on admission. Most likely related to pain. Home medications have been resumed. Blood pressure much better controlled. Continue to follow (6) Paraplegia: Code(s): G82.20 - Paraplegia, unspecified Status: Acute Assessment and Plan: Patient with known paraplegia. He is also status post bilateral BKA. Continue routine skin care and offloading. (7) Diabetes mellitus: Code(s): E11.9 - Type 2 diabetes mellitus without complications Status: Acute Assessment and Plan: The patient's blood glucose was reviewed on 05/04 Start AccuCheks covering with sliding scale. Hypoglycemia protocol willbe available as needed. Subjective Date/time seen: 05/04/22 10:14 Interval history: 36yo male with hx of paraplegia and HTN here for abdominal pain. Assuming care. Chart reviewed. Patient still having the abdominal pain but this has improved. No chest pain or palpitations. No shortness of breath or cough. He does feel nauseous this morning. States he is having normal BMs and had normal bowel movement yesterday although nothing documented in the chart. Exam Narrative: AF 97.2 132/83 80 20 100% ra Gen - NARD Chest - CTA bilaterally, nml RR CV - RRR S1/S2 Abd -soft. Obese. Mild diffuse tenderness. periumbilical urostomy Ext - bilateral BKA Neuro - Alert and oriented. paraplegia Psych - Nml mood and affect Skin - Warm and dry. multiple area of hypopigmentation and scarring LE Objective Data Vital Signs Vital Signs: Vital Signs - 24 hr 05/03/22 12:00 05/03/22 12:00 05/03/22 12:00 Temperature 97.1 F L Pulse Rate 96 96 93 Respiratory Rate 20 18 Blood Pressure 111/68 Pulse Oximetry 100 100 Oxygen Delivery Room Air 05/03/22 14:00 05/03/22 16:00 05/03/22 20:00 Temperature 97.9 F Pulse Rate 95 90 102 H Respiratory Rate 22 H 22 H Blood Pressure 133/70 Pulse Oximetry 100 100 Oxyge
[2022-05-04] MEDS: ONDANSETRON HCL ODT 4 MG TABLET PO ×2 (10:18→16:13)
[2022-05-04 10:49] LABS: Basophils Percent Auto 0.5 % (0.2-1.2); Eosinophils Absolute Auto 0.2 K/mm3 (0-0.3); Eosinophils Percent Auto 3.7 % (0-4.4); Hematocrit 34.3 % (42.0-52.0); Hemoglobin 10.5 g/dL (14.0-18.0); Immature Granulocyte Absolute 0.05 K/mm3 (0.00-0.031); Immature Granulocyte Percent A 0.8 % (0-0.5); Lymphocytes Absolute Auto 1.95 K/mm3 (0.9-3.2); Lymphocytes Percent Auto 31.5 % (18.3-44.2); Mean Corpuscular HGB Conc 30.6 g/dl (32-36); Mean Corpuscular Hemoglobin 27.1 pg (26-34); Mean Corpuscular Volume 88.4 fl (80-100); Mean Platelet Volume 12.5 fl (7.4-10.4); Monocytes Absolute Auto 0.6 K/mm3 (0.1-0.6); Monocytes Percent Auto 9.5 % (2.6-8.5); Neutrophils Absolute Auto 3.4 K/mm3 (1.3-6.7); Platelet Count Result 221 k/mm3 (150-375); Red Blood Count 3.88 M/mm3 (4.6-6.20); Red Cell Distribution Width 15.1 % (11.5-14.5); White Blood Count 6.2 K/mm3 (4.5-10.0)
[2022-05-04] MEDS: LINACLOTIDE 145 MCG CAPSULE 290 MCG PO (11:07)
[2022-05-04] MEDS: LACTULOSE 20 GM/30 ML UDC PO (11:07)
[2022-05-04] MEDS: GABAPENTIN 100 MG CAPSULE PO ×3 (11:08→16:38)
[2022-05-04] MEDS: POTASSIUM CHLORIDE 20 MEQ TABLET.ER 40 MEQ PO (11:08)
[2022-05-04] MEDS: THERAPEUTIC MULTIVITAMINS/MINERALS TAB (*BKC) 1 TABLET PO (11:08)
[2022-05-04] MEDS: SENNA/DOCUSATE SODIUM TABLET 1 TAB PO (11:08)
[2022-05-04] MEDS: NIFEdipine 30 MG TAB.ER.24 60 MG PO (11:08)
[2022-05-04 11:09] LABS: Albumin Level 3.4 g/dL (3.5-5.1); Anion Gap 7 mmol/L (8-16); Blood Urea Nitrogen 11 mg/dL (9-20); Calcium 7.9 mg/dL (8.4-10.2); Carbon Dioxide 20 mmol/L (22-30); Chloride 109 mmol/L (98-107); Estimated Glomerular Filt Rate > 60; Glucose 94 mg/dL (65-110); Magnesium 1.7 mg/dL (1.6-2.3); Potassium 4.3 mmol/L (3.4-5.0); Sodium 136 mmol/L (137-145)
[2022-05-04] MEDS: ASCORBIC ACID 500 MG TABLET PO ×2 (11:09→16:38)
[2022-05-04] MEDS: PANTOPRAZOLE 40 MG TABLET PO (11:09)
[2022-05-04] MEDS: DOCUSATE SODIUM 100 MG CAPSULE PO ×2 (11:09→16:38)
[2022-05-04] MEDS: SOD HYPOCHLORITE 1/4 STRENGTH 473 ML 1 APPLIC TOPICAL (11:12)
[2022-05-04] MEDS: SILVER SULFADIAZINE 1% CR 400 GM JAR (*BKC) 1 APPLIC TOPICAL (11:13)
[2022-05-04 11:17] LABS: Hemoglobin A1C 4.5 % (<5.7)
[2022-05-04 12:02] LABS: Glucose Point of Care 129 mg/dl (65-105)
--- NOTE | 2022-05-04 14:44 | PCDIET ---
Pt. screened in for pressure wounds. Per Wound facilities project manager, pt. is not positive for pressure wounds.
[2022-05-04] MEDS: oxyCODONE/ACETAMINOPHEN (*CRX) 5-325 MG TABLET 1 TABLET PO (16:36)
[2022-05-04] MEDS: oxyCODONE HCL (*CRX) 5 MG TAB IR PO (16:37)
[2022-05-04 17:11] LABS: Glucose Point of Care 101 mg/dl (65-105)
[2022-05-04 22:14] LABS: Glucose Point of Care 100 mg/dl (65-105)
[2022-05-05 02:19] LABS: Vancomycin Trough 31.2 ug/mL (10.0-20.0)
[2022-05-05 04:54] LABS: Anion Gap 4 mmol/L (8-16); Blood Urea Nitrogen 9 mg/dL (9-20); Calcium 8.3 mg/dL (8.4-10.2); Carbon Dioxide 25 mmol/L (22-30); Chloride 106 mmol/L (98-107); Estimated Glomerular Filt Rate > 60; Glucose 97 mg/dL (65-110); Sodium 135 mmol/L (137-145)
[2022-05-05 08:00] VITALS: BP 142/74; PULSE 94; RESP 16; TEMP 36.6; O2SAT 99
[2022-05-05] MEDS: fentaNYL (*CRX) 50 MCG PATCH TRANSDERM (09:26)
[2022-05-05] MEDS: PANTOPRAZOLE SODIUM IV 40 MG VIAL IV PUSH (09:28)
[2022-05-05] MEDS: HYDROmorphone HCL INJ (*CRX) 1 MG/ML SYR IV PUSH ×3 (10:27→21:22)
--- NOTE | 2022-05-05 11:12 | PM.IMPN ---
Progress Note: A&P Assessment and Plan (1) Abdominal pain: Code(s): R10.9 - Unspecified abdominal pain Status: Acute Assessment and Plan: Patient with diffuse abdominal pain. He is status post cholecystectomy. CT scan on admission showing moderate gastric distention of unclear significance. He also has a fluid collection at the base of the penis of unclear etiology but appears to be chronic. This is probably related to his complex urologic history. He also has moderate volume of stool in the rectum. Unclear if he is having normal bowel movements. Was also found to have UTI and is on appropriate antibiotics at this time. Overall his abdominal pain is better but he is nauseous at this time so will check an obstructive series today. He has Zofran available. He is not on any G LP-1. 05/05: KUB from 05/04 was mildly abnormal, unable to assess bowel gas pattern adequately, repeat KUB from 05/05 showed NG still in place, nonspecific bowel gas pattern with prominent amount of fecal material in the rectum and colon, otherwise no concerns noted (2) Acute UTI: Code(s): N39.0 - Urinary tract infection, site not specified Status: Acute Assessment and Plan: Patient found to have complicated UTI related to his urologic surgeries. Blood cultures are no growth today. Urine culture growing E coli sensitive to Cefepime. Currently on vancomycin and cefepime. 05/05: Urine culture showed E coli, sensitive to Rocephin, as well as cefepime which he is currently on, but resistant to the fluoroquinolones as well as Unasyn, blood cultures remain negative from the and (3) Sacral decubitus ulcer, stage III: Code(s): L89.153 - Pressure ulcer of sacral region, stage 3 Status: Acute Assessment and Plan: Wound care nurse evaluation noted. No evidence of acute infection. Continue current dressing changes. (4) Osteomyelitis: Code(s): M86.9 - Osteomyelitis, unspecified Status: Acute Assessment and Plan: CT scan shows chronic diskitis/osteomyelitis at L5-S1. He has a hx of epidural abscess and lumbar osteomyelitis in the past treated at [place]. Unclear if this truly cleared and this is chronic in nature or if he has acute findings of osteomyelitis. Plan is for transfer to a tertiary care center. Will continue IV antibiotics. 05/05: Patient remains on transfer list for [place], spoke with coordinator at the transfer center at [place], she anticipated that a bed will not be available prior to May 07 at the earliest. Denies back pain at this time. Cont vanc + cefepime, started May 02, day 4 of abx today. (5) Hypertensive urgency: Code(s): I16.0 - Hypertensive urgency Status: Acute Assessment and Plan: Blood pressure was 200/100 on admission. Most likely related to pain. Home medications have been resumed. Blood pressure much better controlled. Continue to follow 05/05: Significantly improved, systolic in the 140s over diastolic in the 70s to 80s (6) Paraplegia: Code(s): G82.20 - Paraplegia, unspecified Status: Acute Assessment and Plan: Patient with known paraplegia. He is also status post bilateral BKA. Continue routine skin care and offloading. (7) Diabetes mellitus: Code(s): E11.9 - Type 2 diabetes mellitus without complications Status: Acute Assessment and Plan: The patient's blood glucose was reviewed on 05/04 Start AccuCheks covering with sliding scale. Hypoglycemia protocol will be available as needed. 05/05: Fasting blood glucose 97 today, A1c was 4.5 May 03, 2022 and 4.6 June 15, 2021, a blood glucose continues to remain consistently under 180, would discontinue Accu-Cheks and sliding scale Subjective Date/time seen: 05/05/22 11:12 Interval history: 36yo male with hx of paraplegia and HTN here for abdominal pain. Patient states he feels a little better than yesterday, st
[2022-05-05 12:07] LABS: Glucose Point of Care 96 mg/dl (65-105)
--- NOTE | 2022-05-05 15:34 | PC.NURSE ---
This patient, Shawn Casey Jr., was transferred to [facility] on 05/05/22 at 1534. Personal belongings sent with patient. Report given to Jennifer VIRGEN. Appropriate documentation sent with patient.
[2022-05-05 16:00] VITALS: BP 141/90; PULSE 80; RESP 18; TEMP 36.2; O2SAT 99
--- NOTE | 2022-05-05 16:32 | PC.NURSE ---
This patient, Shawn Casey , was received from [[facility] ] on 05/05/22 at 1610. Patient/family oriented to unit policies and routines
[2022-05-05 16:59] LABS: Glucose Point of Care 91 mg/dl (65-105)
[2022-05-05 19:25] LABS: Vancomycin Random 13.6 ug/mL (10-20)
[2022-05-05 21:37] LABS: Glucose Point of Care 84 mg/dl (65-105)
[2022-05-05 22:00] VITALS: BP 158/93; PULSE 75; RESP 20; TEMP 35.9; O2SAT 100
[2022-05-06] MEDS: HYDROmorphone HCL INJ (*CRX) 1 MG/ML SYR IV PUSH ×5 (00:45→22:42)
[2022-05-06 06:00] VITALS: BP 144/94; PULSE 87; RESP 18; TEMP 36.7; O2SAT 99
[2022-05-06 06:43] LABS: Estimated Glomerular Filt Rate > 60
[2022-05-06 07:31] LABS: Albumin Level 3.6 g/dL (3.5-5.1); Anion Gap 11 mmol/L (8-16); Blood Urea Nitrogen 11 mg/dL (9-20); Calcium 8.5 mg/dL (8.4-10.2); Carbon Dioxide 22 mmol/L (22-30); Chloride 106 mmol/L (98-107); Estimated Glomerular Filt Rate > 60; Glucose 86 mg/dL (65-110); Magnesium 1.9 mg/dL (1.6-2.3); Phosphorus 4.4 mg/dL (2.5-4.5); Potassium 3.8 mmol/L (3.4-5.0); Sodium 139 mmol/L (137-145)
[2022-05-06 08:15] LABS: Glucose Point of Care 81 mg/dl (65-105)
[2022-05-06 08:23] LABS: Hematocrit 35.6 % (42.0-52.0); Hemoglobin 11.3 g/dL (14.0-18.0); Mean Corpuscular HGB Conc 31.7 g/dl (32-36); Mean Corpuscular Hemoglobin 26.9 pg (26-34); Mean Corpuscular Volume 84.8 fl (80-100); Mean Platelet Volume 11.7 fl (7.4-10.4); Platelet Count Result 215 k/mm3 (150-375); Red Cell Distribution Width 14.4 % (11.5-14.5); White Blood Count 6.3 K/mm3 (4.5-10.0)
[2022-05-06] MEDS: PANTOPRAZOLE SODIUM IV 40 MG VIAL IV PUSH (09:17)
--- NOTE | 2022-05-06 09:18 | PC.NURSE ---
call to pharmacy for missing clonidine patch
--- NOTE | 2022-05-06 10:45 | PC.NURSE ---
call to pharm for missing IVABX due at 1000
[2022-05-06] MEDS: cloNIDine 0.3 MG/24 HR PATCH 1 PATCH TRANSDERM (11:21)
[2022-05-06 11:53] LABS: Glucose Point of Care 90 mg/dl (65-105)
--- NOTE | 2022-05-06 13:43 | PM.IMPN ---
Progress Note: A&P Assessment and Plan (1) Abdominal pain: Code(s): R10.9 - Unspecified abdominal pain Status: Acute Assessment and Plan: Patient with diffuse abdominal pain. He is status post cholecystectomy. CT scan on admission showing moderate gastric distention of unclear significance. He is not on any GLP-1. He also has a fluid collection at the base of the penis of unclear etiology but appears to be chronic. This is probably related to his complex urologic history. He also has moderate volume of stool in the rectum. He has been continued on his home bowel regiment. Was also found to have UTI and is on appropriate antibiotics at this time. KUB on 05/04 showing ileus that also was treated appropriately. Suspect abd pain is multifactorial related to his chronic constipation, UTI and now ileus. Continue current treatment plan. (2) Ileus: Code(s): K56.7 - Ileus, unspecified Status: Acute Assessment and Plan: Abdominal pain worsened and KUB 05/04 showing gas-filled loops of mildly distended large and small bowel likely ileus. On re-exam, his abdomen was distended and diffusely tender with guarding so NGT placed to suction and he was made NPO. KUB yesterday showing nonspecific abdomen. NG tube clamped this morning. Patient tolerated this well. Will go ahead and the NG tube and start diet. Monitor closely. Resume some oral meds. (3) Acute UTI: Code(s): N39.0 - Urinary tract infection, site not specified Status: Acute Assessment and Plan: Patient found to have complicated UTI related to his urologic surgeries. Blood cultures are no growth today. Urine culture growing E coli sensitive to Cefepime. Currently on vancomycin and cefepime. (4) Sacral decubitus ulcer, stage III: Code(s): L89.153 - Pressure ulcer of sacral region, stage 3 Status: Acute Assessment and Plan: Wound care nurse evaluation noted. No evidence of acute infection. Continue current dressing changes. (5) Osteomyelitis: Code(s): M86.9 - Osteomyelitis, unspecified Status: Acute Assessment and Plan: CT scan shows chronic diskitis/osteomyelitis at L5-S1. He has a hx of epidural abscess and lumbar osteomyelitis in the past treated at [place]. Unclear if this truly cleared and this is chronic in nature or if he has acute findings of osteomyelitis. Plan is for transfer to a tertiary care center. Will continue IV vanc + cefepime, started May 02, day 5 of abx today. Patient remains on transfer list for [place]. Check MR lumbar spine if able to fit in the scanner. (6) Hypertensive urgency: Code(s): I16.0 - Hypertensive urgency Status: Acute Assessment and Plan: Blood pressure was 200/100 on admission. Most likely related to pain. Home medications were resumed. Blood pressure much better controlled. Continue to follow (7) Paraplegia: Code(s): G82.20 - Paraplegia, unspecified Status: Acute Assessment and Plan: Patient with paraplegia. He is also status post bilateral BKA. Continue routine skin care and offloading. (8) Diabetes mellitus: Code(s): E11.9 - Type 2 diabetes mellitus without complications Status: Acute Assessment and Plan: The patient's blood glucose was reviewed. Patient states he does not have DM and A1c was 4.5. Plan DVT prophylaxis: Lovenox Code status: Full Subjective Date/time seen: 05/06/22 13:43 Interval history: 36yo male with hx of paraplegia and HTN here for abdominal pain. Resuming care. Chart reviewed. No problems overnight. Slept well. Still having abdominal pain but overall this is improved. NG tube was clamped this morning and he denies any nausea since NG tube is clamped. Exam Narrative: AF 98.1 144/94 87 18 99% ra Gen - NARD lying semi-recumbent in bed Chest - Clear anteriorly, nml RR CV - RRR S1/S2 Abd -soft. Obese. Minimal dif
[2022-05-06 14:00] VITALS: BP 204/126; PULSE 64; RESP 22; TEMP 36.6; O2SAT 100
[2022-05-06] MEDS: cloNIDine HCL 0.1 MG TABLET PO (14:36)
--- NOTE | 2022-05-06 16:36 | PC.NURSE ---
unable to obtain IV access, call was placed to IV therapy RN earlier with no reply, nursing dispatch supervisor will attempt an IV
[2022-05-06 16:44] LABS: Glucose Point of Care 94 mg/dl (65-105)
[2022-05-06] MEDS: DOCUSATE SODIUM 100 MG CAPSULE PO (16:52)
[2022-05-06] MEDS: ENOXAPARIN 40 MG/0.4 ML SYRINGE SUB-Q (16:52)
[2022-05-06] MEDS: GABAPENTIN 100 MG CAPSULE PO (16:53)
[2022-05-06] MEDS: polyethylene glycoL 3350 17 GM POWD.PACK PO (16:53)
--- NOTE | 2022-05-06 18:28 | PC.NURSE ---
call to pharm to inform them of change in vanco dose timing for adjustment
[2022-05-06] MEDS: PANTOPRAZOLE 40 MG TABLET PO (20:41)
[2022-05-06 22:00] VITALS: BP 156/117; PULSE 66; RESP 20; TEMP 36.2; O2SAT 100
[2022-05-06 22:29] LABS: Glucose Point of Care 112 mg/dl (65-105)
[2022-05-06] MEDS: ACETAMINOPHEN 500 MG TABLET PO (22:44)
[2022-05-07] MEDS: ONDANSETRON INJ 4 MG/2 ML VIAL IV PUSH (00:18)
[2022-05-07] MEDS: HYDROmorphone HCL INJ (*CRX) 1 MG/ML SYR IV PUSH ×4 (02:18→23:48)
[2022-05-07 03:46] VITALS: O2SAT 98
[2022-05-07 06:00] VITALS: BP 130/86; PULSE 106; RESP 18; TEMP 35.8; O2SAT 99
[2022-05-07 08:01] LABS: Glucose Point of Care 117 mg/dl (65-105)
[2022-05-07] MEDS: polyethylene glycoL 3350 17 GM POWD.PACK PO ×2 (08:56→17:55)
[2022-05-07] MEDS: ENOXAPARIN 40 MG/0.4 ML SYRINGE SUB-Q (08:56)
[2022-05-07] MEDS: NIFEdipine 30 MG TAB.ER.24 60 MG PO (08:56)
[2022-05-07] MEDS: GABAPENTIN 100 MG CAPSULE PO ×3 (08:56→17:56)
[2022-05-07] MEDS: PANTOPRAZOLE 40 MG TABLET PO ×2 (08:57→20:46)
[2022-05-07] MEDS: DOCUSATE SODIUM 100 MG CAPSULE PO ×2 (08:58→17:56)
[2022-05-07 11:58] LABS: Glucose Point of Care 134 mg/dl (65-105)
[2022-05-07 14:00] VITALS: BP 118/77; PULSE 109; RESP 18; TEMP 35.6; O2SAT 99
--- NOTE | 2022-05-07 15:29 | PM.IMPN ---
Progress Note: A&P Assessment and Plan (1) Abdominal pain: Code(s): R10.9 - Unspecified abdominal pain Status: Acute Assessment and Plan: Patient with diffuse abdominal pain. He is status post cholecystectomy. CT scan on admission showing moderate gastric distention of unclear significance. He is not on any GLP-1. He also has a fluid collection at the base of the penis of unclear etiology but appears to be chronic and related to his complex urologic history. He also has moderate volume of stool in the rectum. He was continued on his home bowel regiment. Was also found to have UTI and is on appropriate antibiotics at this time. Abdominal pain worsened and KUB on 05/04 showing ileus. This was treated appropriately. Suspect abd pain is multifactorial related to his chronic constipation, UTI and ileus. Symptoms improving. Continue current treatment plan. (2) Ileus: Code(s): K56.7 - Ileus, unspecified Status: Acute Assessment and Plan: Abdominal pain worsened and KUB 05/04 showing gas-filled loops of mildly distended large and small bowel likely ileus. On re-exam, his abdomen was distended and diffusely tender with guarding so NGT placed to suction and he was made NPO. KUB 04/04 showing nonspecific abdomen. NG tube clamped that he tolerated well. NG tube removed and diet started. Tolerating oral intake. Ileus related to UTI and has resolved. (3) Acute UTI: Code(s): N39.0 - Urinary tract infection, site not specified Status: Acute Assessment and Plan: Patient found to have complicated UTI related to his urologic surgeries. Blood cultures are no growth to date. Urine culture growing E coli sensitive to Rocephin. Currently on vancomycin and cefepime. Will change to cefdinir to complete a course. (4) Sacral decubitus ulcer, stage III: Code(s): L89.153 - Pressure ulcer of sacral region, stage 3 Status: Acute Assessment and Plan: Wound care nurse evaluation noted. No evidence of acute infection. Continue current dressing changes. (5) Osteomyelitis: Code(s): M86.9 - Osteomyelitis, unspecified Status: Acute Assessment and Plan: CT scan shows chronic diskitis/osteomyelitis at L5-S1. He has a hx of epidural abscess and lumbar osteomyelitis in the past treated at [place]. Unclear if this truly cleared and this is chronic in nature but patieint provides hx that this is chronic. Currently on IV vanc + cefepime, started May 02, day 6 of abx today. Unable to check MR lumbar spine because he has IVC filter and he can not fit in the scanner. Narrow abx. (6) Hypertensive urgency: Code(s): I16.0 - Hypertensive urgency Status: Acute Assessment and Plan: Blood pressure was 200/100 on admission. Most likely related to pain. Home medications were resumed. Blood pressure higher yesterday off his medications but better now that they have been resumed. Continue to follow (7) Paraplegia: Code(s): G82.20 - Paraplegia, unspecified Status: Acute Assessment and Plan: Patient with paraplegia. He is also status post bilateral BKA. Continue routine skin care and offloading. (8) Diabetes mellitus: Code(s): E11.9 - Type 2 diabetes mellitus without complications Status: Acute Assessment and Plan: The patient's blood glucose was reviewed. Patient states he does not have DM and A1c was 4.5. Stop finger sticks and change to regular diet. Plan DVT prophylaxis: Lovenox Code status: Full Subjective Date/time seen: 05/07/22 15:29 Interval history: 36yo male with hx of paraplegia and HTN here for abdominal pain. Feels better today. No real abdominal pain. Eating better. No nausea or vomiting. 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 He does see a specialist for this. Exam Narrative: AF 96.1
[2022-05-07] MEDS: ASCORBIC ACID 500 MG TABLET PO (17:57)
[2022-05-07] MEDS: CEFDINIR 300 MG CAPSULE PO (20:46)
[2022-05-07 20:55] LABS: Glucose Point of Care 120 mg/dl (65-105)
[2022-05-07 22:00] VITALS: BP 114/67; PULSE 100; RESP 18; TEMP 36.4; O2SAT 100
[2022-05-08] MEDS: HYDROmorphone HCL INJ (*CRX) 1 MG/ML SYR IV PUSH ×3 (03:57→15:39)
[2022-05-08 06:00] VITALS: BP 123/47; PULSE 91; RESP 18; TEMP 36.3; O2SAT 99
[2022-05-08 06:42] LABS: Hematocrit 33.1 % (42.0-52.0); Hemoglobin 10.6 g/dL (14.0-18.0); Mean Corpuscular Hemoglobin 26.6 pg (26-34); Mean Platelet Volume 11.4 fl (7.4-10.4); Platelet Count Result 222 k/mm3 (150-375); Red Blood Count 3.99 M/mm3 (4.6-6.20); Red Cell Distribution Width 14.4 % (11.5-14.5); White Blood Count 6.9 K/mm3 (4.5-10.0)
[2022-05-08 07:06] LABS: Anion Gap 9 mmol/L (8-16); Blood Urea Nitrogen 11 mg/dL (9-20); CRP 2.9 mg/dL (<1.0); Calcium 8.1 mg/dL (8.4-10.2); Carbon Dioxide 26 mmol/L (22-30); Chloride 104 mmol/L (98-107); Estimated Glomerular Filt Rate > 60; Glucose 107 mg/dL (65-110); Potassium 3.3 mmol/L (3.4-5.0); Sodium 139 mmol/L (137-145)
[2022-05-08 08:38] LABS: Glucose Point of Care 94 mg/dl (65-105)
[2022-05-08] MEDS: CEFDINIR 300 MG CAPSULE PO (08:39)
[2022-05-08] MEDS: LINACLOTIDE 145 MCG CAPSULE 290 MCG PO (08:39)
[2022-05-08] MEDS: GABAPENTIN 100 MG CAPSULE PO ×3 (08:40→16:03)
[2022-05-08] MEDS: ASCORBIC ACID 500 MG TABLET PO ×2 (08:40→16:03)
[2022-05-08] MEDS: PANTOPRAZOLE 40 MG TABLET PO (08:40)
[2022-05-08] MEDS: THERAPEUTIC MULTIVITAMINS/MINERALS TAB (*BKC) 1 TABLET PO (08:40)
[2022-05-08] MEDS: NIFEdipine 30 MG TAB.ER.24 60 MG PO (08:40)
[2022-05-08] MEDS: POTASSIUM CHLORIDE 20 MEQ TABLET.ER 40 MEQ PO (08:41)
[2022-05-08] MEDS: polyethylene glycoL 3350 17 GM POWD.PACK PO (08:42)
[2022-05-08] MEDS: ENOXAPARIN 40 MG/0.4 ML SYRINGE SUB-Q (08:42)
[2022-05-08] MEDS: fentaNYL (*CRX) 50 MCG PATCH TRANSDERM (08:46)
[2022-05-08] MEDS: DOCUSATE SODIUM 100 MG CAPSULE PO ×2 (08:56→16:05)
--- NOTE | 2022-05-08 13:16 | PM.DS ---
DS: Admitting Diagnosis Discharge Date 05/08/22 Admitting Diagnosis Abdominal pain DS: Discharge Diagnosis Discharge Diagnosis (1) Abdominal pain: Code(s): R10.9 - Unspecified abdominal pain Status: Acute Assessment and Plan: Patient with diffuse abdominal pain. He is status post cholecystectomy. CT scan on admission showing moderate gastric distention that resolved on repeat imaging. He also has a fluid collection at the base of the penis of unclear etiology but appears to be chronic and related to his complex urologic history. He also has moderate volume of stool in the rectum. He was continued on his home bowel regiment. He was also found to have UTI treated appropriately. Abdominal pain worsened and KUB on 05/04 showing ileus. NG tube placed and he was made NPO. Repeat imaging showed esolution and he toelrated the NG tube being clamped. NG tube removed and diet started and advanced. Ileus resolved. Suspect abd pain on admission related to UTI and/or constipation that worsened from the ileus. Stil with abdominal pain but better overall. Abd pain also has been present for months so probably a component of chronic constipation and/or urine retention. (2) Ileus: Code(s): K56.7 - Ileus, unspecified Status: Acute Assessment and Plan: Abdominal pain worsened and KUB 05/04 showing gas-filled loops of mildly distended large and small bowel likely ileus. On re-exam, his abdomen was distended and diffusely tender with guarding so NGT placed to suction and he was made NPO. KUB 04/04 showing nonspecific abdomen. NG tube clamped that he tolerated well. NG tube removed and diet started. Tolerating oral intake. Ileus related to UTI and has resolved. (3) Acute UTI: Code(s): N39.0 - Urinary tract infection, site not specified Status: Acute Assessment and Plan: Patient found to have complicated UTI related to his urologic surgeries. Blood cultures are no growth to date. Urine culture growing E coli sensitive to Rocephin. Was on vancomycin and cefepime but changed to oral regiment. (4) Sacral decubitus ulcer, stage III: Code(s): L89.153 - Pressure ulcer of sacral region, stage 3 Status: Acute Assessment and Plan: Wound care nurse evaluation noted. No evidence of acute infection. Continue current dressing changes. (5) Osteomyelitis: Code(s): M86.9 - Osteomyelitis, unspecified Status: Acute Assessment and Plan: CT scan shows chronic diskitis/osteomyelitis at L5-S1. He has a hx of epidural abscess and lumbar osteomyelitis in the past treated at [facility] [place]. Patient provides hx that this is chronic and he follows with ID. Was on IV vanc + cefepime but changed to treatment just for the UTI. Unable to check MR lumbar spine because he has IVC filter and he can not fit in the scanner. (6) Hypertensive urgency: Code(s): I16.0 - Hypertensive urgency Status: Acute Assessment and Plan: Blood pressure was 200/100 on admission. Most likely related to pain. Home medications were resumed. Blood pressure better controlled (7) Paraplegia: Code(s): G82.20 - Paraplegia, unspecified Status: Acute Assessment and Plan: Patient with paraplegia. He is also status post bilateral BKA. Continue routine skin care and offloading. (8) Diabetes mellitus: Code(s): E11.9 - Type 2 diabetes mellitus without complications Status: Acute Assessment and Plan: The patient's blood glucose was reviewed. Patient states he does not have DM and A1c was 4.5. DS: Summary Hospital Course Reason for hospitalization: 36yo male with hx of paraplegia and HTN here for abdominal pain. Please see H&P for details. Hospital Course: He see above for details of hospital course. Status at Discharge Cognitive/behavioral status at discharge: Stable Time Spent with Patient Time attestation: Total time
[2022-05-08 14:00] VITALS: BP 148/81; PULSE 80; RESP 20; TEMP 36.6; O2SAT 98
[2022-05-08 15:58] LABS: EDCOVIDSCREEN Negative (Negative)
== END 2022-05-08 17:00 | DRG 863 ==
LOC: ANHED 05-02 02:43 → ANHIMU 05-02 03:53 → ANH3MEDSUR 05-06 08:49 → ANHIMU 05-12 11:06
PROVIDERS: Family Medicine; Admitting Provider Internal Medicine; Emergency Provider Emergency Medicine; PCP Internal Medicine; Visit Provider Internal Medicine
DX: T81.43XA Infection following a procedure, organ and space surgical site, initial encounter (principal); N39.0 Urinary tract infection, site not specified; G82.20 Paraplegia, unspecified; K56.7 Ileus, unspecified; M46.27 Osteomyelitis of vertebra, lumbosacral region; L89.159 Pressure ulcer of sacral region, unspecified stage; B96.20 Unspecified Escherichia coli [E. coli] as the cause of diseases classified elsewhere; K59.00 Constipation, unspecified; R33.9 Retention of urine, unspecified; Z20.822 Contact with and (suspected) exposure to COVID-19; I16.0 Hypertensive urgency; N31.9 Neuromuscular dysfunction of bladder, unspecified; E11.9 Type 2 diabetes mellitus without complications; Z89.612 Acquired absence of left leg above knee; Z89.611 Acquired absence of right leg above knee; Z87.891 Personal history of nicotine dependence; Z90.49 Acquired absence of other specified parts of digestive tract
CPT/HCPCS: 36415; 51701; 70450; 71045; 74019; 74177; 80048; 80053; 80069; 80202; 81001; 82565; 82948; 83036; 83605; 83690; 83735; 84443; 84484; 85025; 85027; 86140; 87040; 87077; 87086; 87186; 87426; 93005; 96361; 96365; 96366; 96367; 96375; 96376; 99285; A9270; C9113; C9803; G0378; J0131; J0692; J1100; J1170; J1650; J2405; J3370; J7030; J7120; Q9967; U0003; U0005

== ENCOUNTER 2022-05-20 15:48 | Emergency (ER) | payer OTHER, SELFPAY ==
--- NOTE | ~2022-05-20 | CT_ITS ---
EXAMINATION: CT abdomen pelvis w con DATE: 05/20/2022 18:47 INDICATION: Right lower quadrant pain TECHNIQUE: Computed tomography (CT) of the abdomen and pelvis was performed with 100 cc Omnipaque 300 intravenous contrast. The dose-length product was 1433.82 mGy-cm. Automated exposure control and ite rative reconstruction technique were employed. COMPARISON: CT dated 05/01/2022 FINDINGS: There is right lower lobe atelectasis. Heart size normal. No significant pleural or pericar dial effusion. No significant vascular abnormality. No lymphadenopathy. There is an IVC filter present. Fatty infilt ration of the liver. The spleen, pancreas, adrenal glands are unremarkable. There are bilateral renal cysts. There are cholecystectomy clips. Nonobstructive bowel gas pattern. There is atrophy of the ps oas muscles. Chronic lobulated appearance to the bladder. Possible bladder stones. No significant hyd ronephrosis. There are surgical changes in the right colon. No definite appendix identified. Moderate colonic fecal loading. No evidence for diverticulitis.0 there is distraction of L5 and S1 with ill-d efined disc space at this level, suspicious for chronic osteomyelitis. There is severe degenerative c hange of the hips with remodeling bilaterally. There is suggestion of ulceration along the left glute al region, possibly residual decubitus ulcer. IMPRESSION: 1. Severe destruction at the lumbosacral junction suggesting chronic osteomyelitis. No significant in terval change from prior CT. 2: Improved inflammatory changes in the left gluteal soft tissues with probable residual decubitus u lcer. 3: Lobulated appearance to the bladder with possible bladder stones. Reviewed, dictated and finalized at location A. IMPRESSION: 1. Severe destruction at the lumbosacral junction suggesting chronic osteomyeli tis. No significant interval change from prior CT. 2: Improved inflammatory changes in the left gluteal soft tissues with probabl e residual decubitus ulcer. 3: Lobulated appearance to the bladder with possible bladder stones.
[2022-05-20 15:53] VITALS: BP 159/96; PULSE 84; RESP 20; TEMP 36.8; O2SAT 100
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
[2022-05-20 17:19] LABS: Basophils Percent Auto 0.2 % (0.2-1.2); Eosinophils Percent Auto 0.1 % (0-4.4); Hematocrit 40.6 % (42.0-52.0); Hemoglobin 13.1 g/dL (14.0-18.0); Immature Granulocyte Absolute 0.04 K/mm3 (0.00-0.031); Immature Granulocyte Percent A 0.5 % (0-0.5); Lymphocytes Absolute Auto 0.75 K/mm3 (0.9-3.2); Lymphocytes Percent Auto 9.4 % (18.3-44.2); Mean Corpuscular HGB Conc 32.3 g/dl (32-36); Mean Corpuscular Hemoglobin 26.6 pg (26-34); Mean Corpuscular Volume 82.5 fl (80-100); Mean Platelet Volume 11.5 fl (7.4-10.4); Monocytes Absolute Auto 0.2 K/mm3 (0.1-0.6); Monocytes Percent Auto 2.9 % (2.6-8.5); Neutrophils Percent Auto 86.9 % (45.5-73.1); Platelet Count Result 246 k/mm3 (150-375); Red Blood Count 4.92 M/mm3 (4.6-6.20)
[2022-05-20] MEDS: SODIUM CHLORIDE 0.9% IV 1,000 ML 999 ML IV CONT (17:22)
[2022-05-20] MEDS: MORPHINE SULFATE (*CRX) 4 MG/ML INJ IV PUSH (17:23)
[2022-05-20] MEDS: ONDANSETRON INJ 4 MG/2 ML VIAL IV PUSH (17:23)
[2022-05-20 17:29] LABS: Alanine Aminotransferase 31 U/L (6-50); Albumin Level 4.8 g/dL (3.5-5.1); Alkaline Phosphatase 163 U/L (38-126); Anion Gap 11 mmol/L (8-16); Aspartate Amino Transferase 28 U/L (17-59); Bilirubin,Total 0.6 mg/dL (0.2-1.3); Blood Urea Nitrogen 12 mg/dL (9-20); Calcium 9.5 mg/dL (8.4-10.2); Carbon Dioxide 23 mmol/L (22-30); Chloride 103 mmol/L (98-107); Estimated Glomerular Filt Rate > 60; Glucose 120 mg/dL (65-110); Lipase 186 U/L (23-300); Potassium 3.7 mmol/L (3.4-5.0); Sodium 137 mmol/L (137-145)
[2022-05-20 18:48] LABS: Appearance Urine Cloudy (Clear); Bilirubin Urine Negative (Negative); Blood Urine Trace-lysed (Negative); Color Urine Yellow (Yellow); Glucose Urine UA Negative (Negative); Ketones Urine 3+ mg/dL (Negative); Leukocyte Esterase Ur 2+ LEU/UL (Negative); Nitrate Urine Negative (Negative); Protein Urine Negative (Negative)
[2022-05-20 18:52] LABS: Bacteria Urine 1+ /hpf; Mucus Urine Rare /lpf; Squamous Epithelial Cell Urine Occasional /hpf (Few); WBC Urine 51-75 /hpf
[2022-05-20 18:53] LABS: Add Urine Microscopic? YES
[2022-05-20 19:34] LABS: SARS-CoV-2 RNA PCR Negative
[2022-05-20] MEDS: HYDROmorphone HCL INJ (*CRX) 1 MG/ML SYR 0.5 MG IV PUSH (19:53)
--- NOTE | 2022-05-20 20:57 | PC.NURSE ---
central line removed
[2022-05-20 20:58] VITALS: BP 138/72; PULSE 78; RESP 20; O2SAT 99
--- NOTE | 2022-05-20 21:07 | PC.NURSE ---
attempted to call report to group home. no answer
== END 2022-05-20 21:30 | disposition home or self-care (01) ==
PROVIDERS: Emergency Provider Nurse Practitioner Family; PCP Internal Medicine
DX: N39.0 Urinary tract infection, site not specified (principal); R10.31 Right lower quadrant pain; E11.9 Type 2 diabetes mellitus without complications; I10 Essential (primary) hypertension; Z87.891 Personal history of nicotine dependence; Z20.822 Contact with and (suspected) exposure to COVID-19; Z89.612 Acquired absence of left leg above knee; Z89.611 Acquired absence of right leg above knee
CPT/HCPCS: 36415; 36556; 74177; 80053; 81001; 83690; 85025; 87040; 87077; 87086; 87186; 96361; 96365; 96375; 99284; C1751; C9803; J0696; J1170; J2270; J2405; J7030; Q9967; U0003; U0005

== ENCOUNTER 2022-06-18 04:27 | Inpatient (IN) | payer OTHER, SELFPAY ==
[2022-06-18] VITALS (21 sets, daily range): BP systolic 105–216; BP diastolic 67–118; PULSE 69–121; RESP 11–24; TEMP 36.3–37.1; O2SAT 96–100
--- NOTE | ~2022-06-18 | CT_ITS ---
EXAMINATION: CT abdomen pelvis wo con DATE: 06/18/2022 06:49 INDICATION: Low abdominal pain. TECHNIQUE: Computed tomography (CT) of the abdomen and pelvis was performed without intravenous contr ast. Automated exposure control and iterative reconstruction technique were employed. The dose-length product was 1427.40 mGy-cm. COMPARISON: CT abdomen and pelvis 05/20/2022, 06/16/21 FINDINGS: The visualized portions of the lung bases demonstrate mild atelectasis. No pleural effusion . The heart size is normal. No pericardial effusion. The liver and gallbladder are normal. There are changes of cholecystectomy. The pancreas and adrenal glands are normal. There are cysts in the kidney s measuring up to 2.3 cm on the right. There is no urolithiasis. There is a filter in the infrarenal inferior vena cava. There are no dilated loops of bowel. There are surgical changes of the bowel incl uding an ileocolic anastomosis. There are no pathologically enlarged lymph nodes. There is no free in traperitoneal fluid. There is a conduit from the bladder to the umbilicus. The bladder is likely a ne obladder. There are deformities of the proximal femora with internal fixation on the left. There is a nkylosis of right hip joint. There are bridging endplate osteophytes at multiple levels in the spine, consistent with diffuse idiopathic skeletal hyperostosis (DISH). There are chronic erosions of L5-S1 with pseudoarthrosis. There are chronic erosions of inferior sacrum. There is fat stranding overlyin g the sacrum and left ischial tuberosity, consistent with decubitus ulcers. There are chronic erosion s of left ischial tuberosity. IMPRESSION: 1. Chronic sacral and left ischial decubitus ulcers with chronic osteomyelitis. 2. Chronic pseudoarthrosis at L5-S1, likely chronic discitis/osteomyelitis and neuropathic spondyloar thropathy. Reviewed, dictated and finalized at location A. IMPRESSION: 1. Chronic sacral and left ischial decubitus ulcers with chronic osteomyelitis. 2. Chronic pseudoarthrosis at L5-S1, likely chronic discitis/osteomyelitis and neuropathic spondyloarthropathy.
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
[2022-06-18 04:58] LABS: Basophils Percent Auto 0.3 % (0.2-1.2); Hemoglobin 14.2 g/dL (14.0-18.0); Immature Granulocyte Absolute 0.05 K/mm3 (0.00-0.031); Immature Granulocyte Percent A 0.4 % (0-0.5); Lymphocytes Absolute Auto 1.38 K/mm3 (0.9-3.2); Mean Corpuscular HGB Conc 31.6 g/dl (32-36); Mean Corpuscular Hemoglobin 26.2 pg (26-34); Mean Corpuscular Volume 82.9 fl (80-100); Mean Platelet Volume 12.1 fl (7.4-10.4); Monocytes Absolute Auto 0.3 K/mm3 (0.1-0.6); Monocytes Percent Auto 2.9 % (2.6-8.5); Neutrophils Absolute Auto 9.7 K/mm3 (1.3-6.7); Neutrophils Percent Auto 84.4 % (45.5-73.1); Platelet Count Result 260 k/mm3 (150-375); Red Blood Count 5.43 M/mm3 (4.6-6.20); Red Cell Distribution Width 14.6 % (11.5-14.5); White Blood Count 11.5 K/mm3 (4.5-10.0)
[2022-06-18] MEDS: ONDANSETRON INJ 4 MG/2 ML VIAL IV PUSH ×3 (05:25→20:26)
[2022-06-18] MEDS: HYDROmorphone HCL INJ (*CRX) 1 MG/ML SYR IV PUSH (05:25)
[2022-06-18 05:32] LABS: Bacteria Urine 1+ /hpf; Mucus Urine Rare /lpf; Squamous Epithelial Cell Urine Few /hpf (Few); WBC Clumps Urine Present /HPF; WBC Urine >75 /hpf
[2022-06-18 05:36] LABS: Add Urine Microscopic? YES; Appearance Urine Clear (Clear); Bilirubin Urine Negative (Negative); Blood Urine 1+ (Negative); Color Urine Yellow (Yellow); Glucose Urine UA Negative (Negative); Ketones Urine 3+ mg/dL (Negative); Leukocyte Esterase Ur 1+ LEU/UL (Negative); Nitrate Urine Positive (Negative); Protein Urine Trace mg/dL (Negative); Specific Grav Ur 1.015 (1.001-1.035); Urobilinogen Urine 0.2 mg/dL (<2.0)
[2022-06-18 07:31] LABS: Alanine Aminotransferase 29 U/L (6-50); Albumin Level 4.5 g/dL (3.5-5.1); Alkaline Phosphatase 136 U/L (38-126); Anion Gap 16 mmol/L (8-16); Aspartate Amino Transferase 24 U/L (17-59); Bilirubin,Total 0.6 mg/dL (0.2-1.3); Blood Urea Nitrogen 11 mg/dL (9-20); Calcium 9.4 mg/dL (8.4-10.2); Carbon Dioxide 18 mmol/L (22-30); Chloride 106 mmol/L (98-107); Estimated Glomerular Filt Rate > 60; Glucose 108 mg/dL (65-110); Potassium 3.5 mmol/L (3.4-5.0); Sodium 140 mmol/L (137-145)
[2022-06-18] MEDS: SODIUM CHLORIDE 0.9% IV 1,000 ML 999 ML IV CONT (07:46)
[2022-06-18] MEDS: HYDROmorphone HCL INJ (*CRX) 1 MG/ML SYR 0.5 MG IV PUSH ×3 (07:46→21:19)
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
[2022-06-18 08:16] LABS: SARS-CoV-2 RNA PCR Negative
--- NOTE | 2022-06-18 10:26 | ADMGEN ---
This patient, Shawn Casey Jr., was admitted to IMU Room 213-01. Patient/family oriented to hospital policies and general routines including ID bracelet, bed and alarms, visiting hours, pain management, procedures, bathroom and other care routines, personal items, smoking policy, room service/diet, and visiting hours. Information on how to activate the Rapid Response Team has been discussed. Patient/Family are encouraged to report perceived risks to care and to ask questions if they do not understand what they are told or what they should do.
--- NOTE | 2022-06-18 11:38 | PC.NURSE ---
Pt was 6'3 prior to Geoffrey BKA
--- NOTE | 2022-06-18 12:01 | ECG_ITS ---
Measurements Intervals [place] Rate: 110 P: 45 NH: 164 QRS: 31 QRSD: 111 T: 21 QT: 348 QTc: 471 Interpretive Statements SINUS TACHYCARDIA POSSIBLE RIGHT VENTRICULAR CONDUCTION DELAY [RSR (QR) IN V1/V2] NONSPECIFIC T-WAVE ABNORMALITY ABNORMAL RHYTHM ECG COMPARED TO ECG 05/01/2022 22:37:34 SINUS TACHYCARDIA NOW PRESENT Electronically Signed On 06-18-2022 18:33:57 CDT by Asha Oropeza M.D.
[2022-06-18 12:48] LABS: Lactic Acid Reflex 1.3 mmol/L (0.7-2.0)
[2022-06-18] MEDS: GABAPENTIN 100 MG CAPSULE PO ×2 (13:28→17:19)
[2022-06-18 14:01] LABS: Troponin I < 0.012 ng/mL (0.000-0.034)
[2022-06-18 14:05] LABS: Procalcitonin 0.1 ng/mL
[2022-06-18] MEDS: LACTATED RINGERS 1,000 ML 75 ML IV CONT (18:00)
[2022-06-18] MEDS: SODIUM CHLORIDE 0.9% IV 500 ML IV CONT (18:18)
[2022-06-18] MEDS: ASCORBIC ACID 500 MG TABLET PO (20:26)
[2022-06-18] MEDS: ACETAMINOPHEN 500 MG TABLET PO (20:32)
[2022-06-18] MEDS: oxyCODONE/ACETAMINOPHEN (*CRX) 10-325 MG TABLET 1 TAB PO (22:46)
[2022-06-18] MEDS: cloNIDine HCL 0.1 MG TABLET PO (22:59)
[2022-06-19] VITALS (12 sets, daily range): BP systolic 112–204; BP diastolic 62–110; PULSE 55–121; RESP 16–24; TEMP 36.2–36.6; O2SAT 99–100
[2022-06-19] MEDS: CYCLOBENZAPRINE HCL 5 MG TABLET PO (00:10)
[2022-06-19] MEDS: ONDANSETRON INJ 4 MG/2 ML VIAL IV PUSH (00:10)
[2022-06-19] MEDS: HYDROmorphone HCL INJ (*CRX) 1 MG/ML SYR 0.5 MG IV PUSH ×2 (01:00→05:21)
[2022-06-19] MEDS: oxyCODONE/ACETAMINOPHEN (*CRX) 10-325 MG TABLET 1 TAB PO ×2 (03:35→18:26)
[2022-06-19] MEDS: cloNIDine HCL 0.1 MG TABLET PO (03:45)
[2022-06-19 05:05] LABS: Basophils Percent Auto 0.3 % (0.2-1.2); Eosinophils Percent Auto 0.4 % (0-4.4); Hematocrit 39.8 % (42.0-52.0); Hemoglobin 12.7 g/dL (14.0-18.0); Immature Granulocyte Absolute 0.03 K/mm3 (0.00-0.031); Immature Granulocyte Percent A 0.4 % (0-0.5); Lymphocytes Absolute Auto 1.45 K/mm3 (0.9-3.2); Lymphocytes Percent Auto 18.3 % (18.3-44.2); Mean Corpuscular HGB Conc 31.9 g/dl (32-36); Mean Corpuscular Hemoglobin 26.1 pg (26-34); Mean Corpuscular Volume 81.7 fl (80-100); Mean Platelet Volume 11.4 fl (7.4-10.4); Monocytes Absolute Auto 0.4 K/mm3 (0.1-0.6); Monocytes Percent Auto 4.9 % (2.6-8.5); Neutrophils Percent Auto 75.7 % (45.5-73.1); Platelet Count Result 228 k/mm3 (150-375); Red Blood Count 4.87 M/mm3 (4.6-6.20); Red Cell Distribution Width 14.3 % (11.5-14.5); White Blood Count 7.9 K/mm3 (4.5-10.0)
[2022-06-19 05:18] LABS: Alanine Aminotransferase 31 U/L (6-50); Albumin Level 4.6 g/dL (3.5-5.1); Alkaline Phosphatase 142 U/L (38-126); Anion Gap 15 mmol/L (8-16); Aspartate Amino Transferase 28 U/L (17-59); Bilirubin,Total 0.7 mg/dL (0.2-1.3); Blood Urea Nitrogen 7 mg/dL (9-20); Calcium 9.2 mg/dL (8.4-10.2); Carbon Dioxide 20 mmol/L (22-30); Chloride 104 mmol/L (98-107); Estimated CRCL calculation 181 ml/min; Estimated Glomerular Filt Rate > 60; Glucose 108 mg/dL (65-110); Potassium 3.4 mmol/L (3.4-5.0); Sodium 139 mmol/L (137-145)
[2022-06-19] MEDS: hydrALAZINE HCL 20 MG/ML VIAL 10 MG IV PUSH (05:20)
--- NOTE | 2022-06-19 07:23 | P.PNIM_ITS ---
Progress Note: A&P Assessment and Plan (1) Acute UTI: Code(s): N39.0 - Urinary tract infection, site not specified Status: Acute Assessment and Plan: Complicated UTI. +flank pain, nausea, mild leukocytosis and c/o alternating chills and sweats. Patient treated with multiple antibiotics in the past 2 months including Keflex, Omnicef, Cefepime and Vancomycin IV. Previous cultures show MDR E.coli and later Klebsiella. * Antibiotic day 2 of Primaxin 500 mg IV Q6 hours. De-escalate pending culture results. Urine with gram negative bacilli >100,000 CFU. ID and sensitivity pending. * Nursing to assess patient catheterization technique. * Patient evaluated by Urology last admission and recommended to follow up with [facility]. He reports [facility] on [facility]. Will defer Urology consult for now unless patient clinical status worsens or complications noted. * Leukocytosis improving. * Lactic acid and procalcitonin within normal limits. (2) Essential hypertension: Code(s): I10 - Essential (primary) hypertension Status: Acute Assessment and Plan: BP 216/114 in ED on admission. He reports BP always elevated when in pain. * Continue home procardia, clonidine patch and PRN clonidine tablet BID. Add PRN hydralazine IV SBP>170. * EKG without ischemic changes. * Troponin I negative for elevation. * Monitored on telemetry without * Will defer TTE for now as hypertension appears related to pain. Downgrade to Med/Surg status. * No protein noted in urine. * Improving. (3) Diabetes mellitus: Code(s): E11.9 - Type 2 diabetes mellitus without complications Status: Acute Assessment and Plan: Off medications. Last A1c 4.5%. Serum glucose 120 to 128 mg/dL. * Monitor. Hold sliding scale insulin for now. * Stable. (4) Paraplegia: Code(s): G82.20 - Paraplegia, unspecified Status: Acute Assessment and Plan: * Continue home medications- on gabapentin TID and PRN baclofen. * Supportive care. (5) Sacral decubitus ulcer, stage III: Code(s): L89.153 - Pressure ulcer of sacral region, stage 3 Status: Chronic Assessment and Plan: * Healing. Wound care consulted and added miconazole cream Q12 to sacrum. * Continue pressure point off-loading. (6) Osteomyelitis: Code(s): M86.9 - Osteomyelitis, unspecified Status: Chronic Assessment and Plan: Chronic osteomyelitis and L5-S1 diskitis noted on CT. He has previously been treated with IV antibiotics and followed by ID, per patient. * Monitor. Plan CODE STATUS: FULL CODE Disposition: Return to SNF when medically stable. Time Spent With Patient Time with patient: 15 - 25 minutes Subjective Date/time seen: 06/19/22 07:23 Interval history: Patient is 36-year-old male with past medical history of bilateral lower extremity [id number] amputation, paraplegia, neurogenic bladder status post multiple surgeries in the genitourinary system with an ileal conduit for which he self catheterizes, chronic decubitus ulcers and chronic osteomyelitis.?He presented to the ED for evaluation of RLQ abdominal and right flank pain and urinary urgency. He was found to be hypertensive 216/114 and UA was concerning for acute infection. Patient found lying in bed in no distress. He reports persistent right groin/RLQ and right flank pain. Diludid IV helps, but does not last. He reports approximately 600 cc urine with straight cath x2 yesterday and
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
[2022-06-19] MEDS: LACTATED RINGERS 1,000 ML 75 ML IV CONT ×2 (08:32→21:58)
[2022-06-19] MEDS: POTASSIUM CHLORIDE 20 MEQ TABLET.ER 40 MEQ PO (08:36)
[2022-06-19] MEDS: LACTULOSE 20 GM/30 ML UDC PO (08:36)
[2022-06-19] MEDS: SENNA/DOCUSATE SODIUM TABLET 1 TAB PO (08:36)
[2022-06-19] MEDS: PANTOPRAZOLE 40 MG TABLET PO (08:36)
[2022-06-19] MEDS: GABAPENTIN 100 MG CAPSULE PO ×3 (08:36→17:37)
[2022-06-19] MEDS: ENOXAPARIN 40 MG/0.4 ML SYRINGE SUB-Q (08:37)
[2022-06-19] MEDS: LINACLOTIDE 145 MCG CAPSULE 290 MCG PO (08:37)
[2022-06-19] MEDS: polyethylene glycoL 3350 17 GM POWD.PACK PO (08:37)
[2022-06-19] MEDS: NIFEdipine 30 MG TAB.ER.24 60 MG PO (08:37)
[2022-06-19] MEDS: fentaNYL (*CRX) 50 MCG PATCH TRANSDERM (08:42)
[2022-06-19] MEDS: THERAPEUTIC MULTIVITAMINS/MINERALS TAB (*BKC) 1 TABLET PO (10:00)
[2022-06-19] MEDS: SILVER SULFADIAZINE 1% CR 400 GM JAR (*BKC) 1 APPLIC TOPICAL (10:00)
[2022-06-19] MEDS: ASCORBIC ACID 500 MG TABLET PO ×2 (10:00→20:29)
--- NOTE | 2022-06-19 17:13 | PC.NURSE ---
This patient, Shawn Casey , was received from [facility] on 06/19/22 at 1714. Patient/family oriented to unit policies and routines
--- NOTE | 2022-06-19 17:19 | PC.NURSE ---
This patient, Shawn Casey Jr., was transferred to [ 347] on 06/19/22 at 1720. Personal belongings sent with patient. Report given to [Daysi VIRGEN ]. Appropriate documentation sent with patient.
[2022-06-20] MEDS: oxyCODONE/ACETAMINOPHEN (*CRX) 10-325 MG TABLET 1 TAB PO (03:45)
[2022-06-20 06:35] VITALS: BP 130/78; PULSE 73; RESP 18; TEMP 36.3; O2SAT 99
[2022-06-20] MEDS: ASCORBIC ACID 500 MG TABLET PO ×2 (09:55→20:19)
[2022-06-20] MEDS: ENOXAPARIN 40 MG/0.4 ML SYRINGE SUB-Q (09:55)
[2022-06-20] MEDS: SENNA/DOCUSATE SODIUM TABLET 1 TAB PO (09:55)
[2022-06-20] MEDS: GABAPENTIN 100 MG CAPSULE PO ×3 (09:55→16:57)
[2022-06-20] MEDS: THERAPEUTIC MULTIVITAMINS/MINERALS TAB (*BKC) 1 TABLET PO (09:56)
[2022-06-20] MEDS: NIFEdipine 30 MG TAB.ER.24 60 MG PO (09:56)
[2022-06-20] MEDS: LINACLOTIDE 145 MCG CAPSULE 290 MCG PO (09:56)
[2022-06-20] MEDS: LACTULOSE 20 GM/30 ML UDC PO (09:56)
[2022-06-20] MEDS: PANTOPRAZOLE 40 MG TABLET PO (09:57)
[2022-06-20] MEDS: POTASSIUM CHLORIDE 20 MEQ TABLET.ER 40 MEQ PO (09:57)
[2022-06-20] MEDS: polyethylene glycoL 3350 17 GM POWD.PACK PO (09:58)
[2022-06-20] MEDS: SILVER SULFADIAZINE 1% CR 400 GM JAR (*BKC) 1 APPLIC TOPICAL (09:58)
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
[2022-06-20] MEDS: HYDROmorphone HCL INJ (*CRX) 1 MG/ML SYR IV PUSH ×3 (10:05→21:13)
[2022-06-20] MEDS: CEFDINIR 300 MG CAPSULE PO ×2 (12:52→18:24)
[2022-06-20 16:05] VITALS: BP 128/76; PULSE 77; RESP 14; TEMP 36.6; O2SAT 100
[2022-06-20 20:37] VITALS: BP 131/82; PULSE 76; RESP 18; TEMP 36.6; O2SAT 100
[2022-06-21] MEDS: ONDANSETRON INJ 4 MG/2 ML VIAL IV PUSH (00:03)
[2022-06-21] MEDS: oxyCODONE/ACETAMINOPHEN (*CRX) 10-325 MG TABLET 1 TAB PO ×2 (00:10→06:14)
[2022-06-21] MEDS: HYDROmorphone HCL INJ (*CRX) 1 MG/ML SYR IV PUSH ×2 (01:45→16:58)
[2022-06-21 04:37] VITALS: BP 143/88; PULSE 93; RESP 18; TEMP 36.6; O2SAT 100
[2022-06-21] MEDS: CEFDINIR 300 MG CAPSULE PO (06:15)
[2022-06-21 06:26] LABS: Hematocrit 36.8 % (42.0-52.0); Hemoglobin 11.3 g/dL (14.0-18.0); Mean Corpuscular HGB Conc 30.7 g/dl (32-36); Mean Corpuscular Hemoglobin 25.9 pg (26-34); Mean Corpuscular Volume 84.2 fl (80-100); Mean Platelet Volume 11.6 fl (7.4-10.4); Platelet Count Result 220 k/mm3 (150-375); Red Blood Count 4.37 M/mm3 (4.6-6.20); Red Cell Distribution Width 14.3 % (11.5-14.5); White Blood Count 5.7 K/mm3 (4.5-10.0)
[2022-06-21 06:31] LABS: Anion Gap 11 mmol/L (8-16); Blood Urea Nitrogen 7 mg/dL (9-20); Calcium 9.1 mg/dL (8.4-10.2); Carbon Dioxide 26 mmol/L (22-30); Chloride 101 mmol/L (98-107); Estimated CRCL calculation 214 ml/min; Estimated Glomerular Filt Rate > 60; Glucose 104 mg/dL (65-110); Potassium 4.1 mmol/L (3.4-5.0); Sodium 138 mmol/L (137-145)
[2022-06-21 07:51] VITALS: PULSE 78; O2SAT 97
[2022-06-21] MEDS: ASCORBIC ACID 500 MG TABLET PO (08:17)
[2022-06-21] MEDS: SENNA/DOCUSATE SODIUM TABLET 1 TAB PO (08:17)
[2022-06-21] MEDS: GABAPENTIN 100 MG CAPSULE PO ×2 (08:17→14:41)
[2022-06-21] MEDS: ENOXAPARIN 40 MG/0.4 ML SYRINGE SUB-Q (08:17)
[2022-06-21] MEDS: LACTULOSE 20 GM/30 ML UDC PO (08:18)
[2022-06-21] MEDS: LINACLOTIDE 145 MCG CAPSULE 290 MCG PO (08:18)
[2022-06-21] MEDS: NIFEdipine 30 MG TAB.ER.24 60 MG PO (08:19)
[2022-06-21] MEDS: polyethylene glycoL 3350 17 GM POWD.PACK PO (08:19)
[2022-06-21] MEDS: PANTOPRAZOLE 40 MG TABLET PO (08:19)
[2022-06-21] MEDS: POTASSIUM CHLORIDE 20 MEQ TABLET.ER 40 MEQ PO (08:19)
[2022-06-21] MEDS: THERAPEUTIC MULTIVITAMINS/MINERALS TAB (*BKC) 1 TABLET PO (08:19)
[2022-06-21] MEDS: SILVER SULFADIAZINE 1% CR 400 GM JAR (*BKC) 1 APPLIC TOPICAL (08:20)
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
[2022-06-21 13:30] VITALS: BP 122/72; PULSE 82; RESP 18; TEMP 36.7; O2SAT 98
== END 2022-06-21 17:00 | disposition home or self-care (01) | DRG 698 ==
LOC: ANHED 07:42 → ANHIMU 08:33 → ANH3MED 06-19 16:24
PROVIDERS: Nurse Practitioner Family; Physician Assistant; Admitting Provider Internal Medicine; Emergency Provider Emergency Medicine; PCP Internal Medicine; Visit Provider Hospitalist
DX: T83.511A Infection and inflammatory reaction due to indwelling urethral catheter, initial encounter (principal); L89.153 Pressure ulcer of sacral region, stage 3; G82.20 Paraplegia, unspecified; M46.27 Osteomyelitis of vertebra, lumbosacral region; N39.0 Urinary tract infection, site not specified; I10 Essential (primary) hypertension; N31.9 Neuromuscular dysfunction of bladder, unspecified; E11.9 Type 2 diabetes mellitus without complications; F17.210 Nicotine dependence, cigarettes, uncomplicated; B96.20 Unspecified Escherichia coli [E. coli] as the cause of diseases classified elsewhere; Z20.822 Contact with and (suspected) exposure to COVID-19; T14.8XXS Other injury of unspecified body region, sequela; V89.2XXS Person injured in unspecified motor-vehicle accident, traffic, sequela; Z89.512 Acquired absence of left leg below knee; Z89.511 Acquired absence of right leg below knee; Z93.6 Other artificial openings of urinary tract status
CPT/HCPCS: 36415; 74176; 80048; 80053; 81001; 83605; 84145; 84484; 85025; 85027; 87077; 87086; 87088; 87186; 93005; 96361; 96365; 96366; 96367; 96372; 96375; 96376; 99285; A9270; C9803; G0378; J0360; J0696; J0743; J1170; J1650; J2405; J7030; J7040; J7120; U0003; U0005

== ENCOUNTER 2022-08-29 21:37 | Emergency (ER) | payer OTHER, SELFPAY ==
[2022-08-29] VITALS (7 sets, daily range): BP systolic 181–213; BP diastolic 110–147; PULSE 56–104; RESP 20–41; TEMP 36.9; O2SAT 100
--- NOTE | ~2022-08-29 | CT_ITS ---
EXAMINATION: CT abdomen pelvis w con INDICATION: Right-sided abdominal pain TECHNIQUE: Computed tomographic images of the abdomen and pelvis were obtained after the administrati on of 100 cc of Omnipaque 350 intravenous contrast. The dose-length product (DLP) was 1451.10 mGy-cm. Automated exposure control and iterative reconstruction technique were employed. COMPARISON: 06/18/2022 FINDINGS: Minimal dependent atelectasis is present in the lung bases. The heart size is normal. The g allbladder is surgically absent. The liver, spleen, pancreas, and adrenal glands are normal. Cysts of the kidneys measure up to 2.7 cm on the right. An IVC filter is noted. No pathologically enlarged ab dominal or pelvic lymph nodes are identified. A moderate volume of colonic stool is present. Again no channing is a chronic lobulated appearance of the urinary bladder. There are decubitus ulcerations overlyi ng the sacrum and left ischial tuberosity. There are chronic erosions of L5 and S1. Also seen are chr onic fluid collections at the base of the penis. There are bridging osteophytes at multiple levels in the spine, consistent with diffuse idiopathic skeletal hyperostosis (DISH). There are chronic deform ities of the proximal femurs. IMPRESSION: 1. Findings consistent with chronic discitis/osteomyelitis at L5-S1. 2. Chronic sacral and left ischial decubitus ulcerations with associated osteomyelitis. Reviewed, dictated and finalized at location F. IMPRESSION: 1. Findings consistent with chronic discitis/osteomyelitis at L5-S1. 2. Chronic sacral and left ischial decubitus ulcerations with associated osteom yelitis.
--- NOTE | 2022-08-29 21:42 | ECG_ITS ---
Measurements Intervals [place] Rate: 57 P: 20 [place]: 153 QRS: 38 QRSD: 105 T: 40 QT: 432 QTc: 421 Interpretive Statements SINUS BRADYCARDIA WITH SINUS ARRHYTHMIA DIFFUSE J-POINT ELEVATION CONSIDER REPOLARIZATION ABNORMALITY, PERICARDITIS AND OR ACUTE PERICARDIAL INJURY COMPARED TO ECG 06/18/2022 13:54:59 HEART RATE HAS DECREASED Electronically Signed On 09-04-2022 16:34:53 CDT by Michael Aaron M.D.
--- NOTE | 2022-08-29 22:45 | PC.NURSE ---
Pt verbalizing they are scared and something isn't right
--- NOTE | 2022-08-29 23:18 | ED.ABDPAIN ---
HPI - Abdominal Pain General Chief Complaint: Abdominal Pain <JAYLON Villagran Last Filed: 08/30/22 02:47> Stated Complaint: paraplegic bilat amputee c/o abd pain and ku <JAYLON Villagran Last Filed: 08/30/22 02:47> Time Seen by Provider: 08/29/22 22:53 <JAYLON Villagran Last Filed: 08/30/22 02:47> Source: patient <JAYLON Villagran Last Filed: 08/30/22 02:47> Mode of arrival: EMS <JAYLON Villagran Filed: 08/30/22 02:47> Limitations: no limitations <JAYLON Villagran Filed: 08/30/22 02:47> History of Present Illness HPI narrative: Patient is a 37-year-old male, with past medical history of paraplegia/bilateral AKA, who presents to the ED via EMS with report of abdominal pain. Patient is a resident of [facility]. Patient reports having pain in his right-sided abdomen since around 4 pm today. He states he has similar pain frequently. He has a long history of constipation and frequently has ileus. He reports an episode of emesis earlier today and nausea currently. Last bowel movement yesterday and was diarrhea. No rectal bleeding. No melena. No fevers. Patient took Percocet and Tylenol at the onset of his pain with minimal relief. <JAYLON Villagran Filed: 08/30/22 02:47> Related Data Home Medications: Home Medications Medication Instructions Recorded Confirmed fentanyl 50 mcg/hr transdermal 1 patch topical Q3D 06/16/21 06/18/22 patch omeprazole 20 mg tablet,delayed 20 mg PO DAILY 06/16/21 06/18/22 release ondansetron HCl 4 mg tablet 4 mg PO Q6H PRN Nausea And Vomiting 06/16/21 06/18/22 polyethylene glycol 3350 17 gram 17 g PO DAILY 06/16/21 06/18/22 oral powder packet potassium chloride 20 mEq 40 meq PO DAILY 06/16/21 06/18/22 tablet,extended release(part/cryst) sennosides 8.6 mg-docusate sodium 1 tablet PO DAILY 06/16/21 06/18/22 50 mg tablet (Senna Plus) acetaminophen 500 mg capsule 500 mg PO Q6H PRN pain or fever 05/02/22 06/18/22 amino acids-protein hydrolysate 15 1 ea PO BID 05/02/22 06/18/22 gram-100 kcal/30 mL oral liquid pkt (Pro-Stat Sugar Free) ascorbic acid (vitamin C) 500 mg 500 mg PO BID 05/02/22 06/18/22 tablet clonidine 0.3 mg/24 hr weekly 1 patch transdermal WEEKLY 05/02/22 06/18/22 transdermal patch clonidine HCl 0.1 mg tablet 0.1 mg PO BID PRN high blood 05/02/22 06/18/22 pressure cyclobenzaprine 5 mg tablet 5 mg PO TID PRN Muscle Spasm 05/02/22 06/18/22 gabapentin 100 mg capsule 100 mg PO TID 05/02/22 06/18/22 linaclotide 290 mcg capsule 1 cap PO DAILY 05/02/22 06/18/22 (Linzess) nifedipine 60 mg tablet,extended 60 mg PO DAILY 05/02/22 06/18/22 release 24 hr silver sulfadiazine 1 % topical 1 applic topical DAILY 05/02/22 06/18/22 cream (SSD) lactulose 10 gram/15 mL oral 30 ml PO DAILY 06/18/22 06/18/22 solution multivitamin with minerals 1 cap PO DAILY 06/18/22 06/18/22 sodium phosphates 19 gram-7 118 ml RECTAL DAILY PRN 06/18/22 06/18/22 gram/118 mL enema (Fleet Enema) Constipation <Chula Johnston PA-C - Last Filed: 08/30/22 02:47> Allergies/Adverse Reactions: Allergies Allergy/AdvReac Type Severity Reaction Status Date / Time metoclopramide [From Reglan] Allergy Other Verified 08/29/22 21:53 <Chula Johnston PA-C - Last Filed: 08/30/22 02:47> Review of Systems Review of Systems: CONSTITUTIONAL: Denies fever, chills, or sweats. CARDIOVASCULAR: Denies chest pain. RESPIRATORY: Denies dyspnea. GASTROINTESTINAL: Reports R sided ABD pain, N/V/D. Denies rectal bleeding, melena. GENITOURINARY: Denies dysuria or hematuria. <Chula Johnston PA-C - Last Filed: 08/30/22 02:47> All systems reviewed & are unremarkable except as noted in HPI and below <Chula Johnston PA-C - Last Filed: 08/30/22 02:47> [facility] Past Medical History Medical History: Medical History (Reviewed
[2022-08-29] MEDS: ONDANSETRON INJ 4 MG/2 ML VIAL IV PUSH (23:49)
[2022-08-29] MEDS: MORPHINE SULFATE (*CRX) 4 MG/ML INJ IV PUSH (23:49)
[2022-08-29] MEDS: SODIUM CHLORIDE 0.9% IV 1,000 ML 999 ML IV CONT (23:49)
[2022-08-30] VITALS (10 sets, daily range): BP systolic 114–184; BP diastolic 75–119; PULSE 68–126; RESP 11–20; O2SAT 95–99
[2022-08-30 00:02] LABS: Basophils Percent Auto 0.3 % (0.2-1.2); Eosinophils Percent Auto 0.3 % (0-4.4); Hematocrit 37.5 % (42.0-52.0); Hemoglobin 12.4 g/dL (14.0-18.0); Immature Granulocyte Absolute 0.02 K/mm3 (0.00-0.031); Immature Granulocyte Percent A 0.2 % (0-0.5); Lymphocytes Absolute Auto 1.29 K/mm3 (0.9-3.2); Lymphocytes Percent Auto 11.2 % (18.3-44.2); Mean Corpuscular HGB Conc 33.1 g/dl (32-36); Mean Corpuscular Hemoglobin 25.8 pg (26-34); Mean Corpuscular Volume 78.1 fl (80-100); Mean Platelet Volume 10.9 fl (7.4-10.4); Monocytes Absolute Auto 0.7 K/mm3 (0.1-0.6); Monocytes Percent Auto 6.1 % (2.6-8.5); Neutrophils Absolute Auto 9.4 K/mm3 (1.3-6.7); Neutrophils Percent Auto 81.9 % (45.5-73.1); Platelet Count Result 284 k/mm3 (150-375); Red Cell Distribution Width 13.7 % (11.5-14.5); White Blood Count 11.5 K/mm3 (4.5-10.0)
[2022-08-30 00:13] LABS: Alanine Aminotransferase 33 U/L (6-50); Albumin Level 4.5 g/dL (3.5-5.1); Alkaline Phosphatase 141 U/L (38-126); Anion Gap 15 mmol/L (8-16); Aspartate Amino Transferase 36 U/L (17-59); Bilirubin,Total 0.8 mg/dL (0.2-1.3); Blood Urea Nitrogen 15 mg/dL (9-20); Calcium 9.3 mg/dL (8.4-10.2); Carbon Dioxide 17 mmol/L (22-30); Chloride 108 mmol/L (98-107); Estimated CRCL calculation 221 ml/min; Estimated Glomerular Filt Rate > 60; Glucose 105 mg/dL (65-110); Lipase 163 U/L (23-300); Potassium 3.3 mmol/L (3.4-5.0); Sodium 140 mmol/L (137-145)
[2022-08-30 01:06] LABS: Add Urine Microscopic? YES; Appearance Urine Cloudy (Clear); Bacteria Urine 1+ /hpf; Bilirubin Urine Negative (Negative); Blood Urine 1+ (Negative); Color Urine Yellow (Yellow); Glucose Urine UA Negative (Negative); Ketones Urine 2+ mg/dL (Negative); Leukocyte Esterase Ur 1+ LEU/UL (Negative); Mucus Urine Rare /lpf; Nitrate Urine Negative (Negative); Protein Urine Negative (Negative); Specific Grav Ur 1.019 (1.001-1.035); Squamous Epithelial Cell Urine Rare /hpf (Few); Urobilinogen Urine Negative mg/dL (<2.0); WBC Urine 31-50 /hpf
[2022-08-30] MEDS: MORPHINE SULFATE (*CRX) 4 MG/ML INJ IV PUSH (01:22)
[2022-08-30] MEDS: POTASSIUM CHLORIDE 20 MEQ TABLET 40 MEQ PO (02:01)
--- NOTE | 2022-08-30 02:32 | PC.NURSE ---
called [facility] to request transport. ETA [id number] [facility], [facility] and [facility] not available tonight.
--- NOTE | 2022-08-30 05:13 | PC.NURSE ---
called [facility] for ETA update. ETA [id number]
--- NOTE | 2022-08-30 05:59 | PC.NURSE ---
JASMINA from [facility] called for report on pt. Report given to Shawn.
[2022-08-30] MEDS: KETOROLAC 30 MG/ML VIAL (*BKC) IV PUSH (07:26)
== END 2022-08-30 10:44 | disposition home or self-care (01) ==
PROVIDERS: Physician Assistant; Emergency Provider Emergency Medicine; PCP Internal Medicine
DX: N30.01 Acute cystitis with hematuria (principal); R10.9 Unspecified abdominal pain; G82.20 Paraplegia, unspecified; E11.9 Type 2 diabetes mellitus without complications; I10 Essential (primary) hypertension; Z89.512 Acquired absence of left leg below knee; Z89.511 Acquired absence of right leg below knee; Z87.891 Personal history of nicotine dependence
CPT/HCPCS: 36415; 74177; 80053; 81001; 83690; 85025; 87077; 87086; 87186; 93005; 96361; 96365; 96375; 96376; 99284; A9270; J0696; J1885; J2270; J2405; J7030; Q9967

== ENCOUNTER 2022-11-03 16:07 | Inpatient (IN) | payer OTHER, SELFPAY ==
[2022-11-03] VITALS (10 sets, daily range): BP systolic 133–208; BP diastolic 78–121; PULSE 48–119; RESP 12–34; TEMP 36.4; O2SAT 98–100; BMI 53.0
--- NOTE | ~2022-11-03 | CT_ITS ---
EXAMINATION: CT abdomen pelvis wo con DATE: 11/03/2022 17:19 INDICATION: llq pain TECHNIQUE: Computed tomography (CT) of the abdomen and pelvis was performed without intravenous contr ast. Automated exposure control and iterative reconstruction technique were employed. The dose-length product was 1381.97 mGy-cm. COMPARISON: None. FINDINGS: Lower thorax: Bilateral gynecomastia. Minimal dependent atelectasis. Liver: Normal. Biliary/Gallbladder: Gallbladder is absent. No bile duct dilation. Pancreas: No mass or duct dilation. Spleen: Normal. Adrenals:No mass. Kidneys: No mass, stone, or hydronephrosis. Previously demonstrated cysts are not well seen without c ontrast. GI tract: No small or large bowel dilation. The appendix is surgically absent. Mesentery/Peritoneum: No ascites, mass, or free air. Retroperitoneum: No mass. IVC filter. Pelvis: Lobulated urinary bladder, otherwise the vorgans are within normal limits. Soft Tissues: Stable decubitus ulcers/scarring. Bones: No acute osseous finding. Chronic bilateral hip, pelvic, and lower lumbar changes. Chronic ch anges of sacral and left ischial osteomyelitis. Chronic L5-S1 discitis/osteomyelitis, without signifi cant interval change. IMPRESSION: No acute abdominopelvic process detected. Reviewed, dictated and finalized at location K. ER TROLL LINE
--- NOTE | ~2022-11-03 | CT_ITS ---
EXAMINATION: CT brain wo con DATE: 11/03/2022 17:13 INDICATION: Unresponsive episode TECHNIQUE: Computed tomography (CT) of the head was performed without intravenous contrast. Sagittal and coronal reconstructions were performed. The mA was adjusted according to patient size. Iterative reconstruction technique was employed. The dose-length product was 756.67 mGy-cm. COMPARISON: head CT dated 05/01/2022 FINDINGS: No acute intracranial hemorrhage, acute infarction or abnormal extra axial fluid collection. Ventricl es are normal and symmetric. No mass/mass effect. Unchanged likely mucous retention cyst at the floor of the left maxillary sinus. Mild mucosal thickening in the left ethmoid sinus and frontoethmoidal r ecess. The orbits and mastoid air cells are normal. IMPRESSION: 1. No acute intracranial process. Reviewed, dictated and finalized at location A. NESS EMPLOYMENT SPECIALIST
--- NOTE | ~2022-11-03 | US_ITS ---
EXAMINATION: US renal BI DATE: 11/05/2022 21:47 INDICATION: Right flank pain. TECHNIQUE: Multiple ultrasound grayscale images of the kidneys were obtained. COMPARISON: CT abdomen and pelvis 11/05/2022 FINDINGS: The right kidney measures 12.8 x 6.7 x 6.9 cm. The left kidney measures 9.4 x 5.7 x 5.9 cm. The kidne ys demonstrate normal parenchymal echogenicity. There is no hydronephrosis. The bladder is distended with lobulated wall. IMPRESSION: 1. Normal kidney sizes. No hydronephrosis. Reviewed, dictated and finalized at location A. TUBE BENDER
--- NOTE | ~2022-11-03 | CT_ITS ---
CT Abdomen and Pelvis with contrast. History: Abdominal pain. Spiral CT of the abdomen and pelvis was performed after the administration of intravenous contrast. 1 00 cc of Omnipaque 350 was administered intravenously without complication. Dose reduction technique was used on this scan by utilizing automated exposure control and iterative reconstruction technique. The dose-length product (DLP) was 1388.80 mGy-cm. COMPARISON: 11/03/2022 Findings: Scans through the lung bases demonstrate minimal right pleural fluid with mild atelectatic change. The liver, spleen, pancreas, adrenals and kidneys are within normal limits. Cholecystectomy clips pre sent. No evidence of aortic aneurysm. No lymphadenopathy is seen. IVC filter present. There is no evidence of bowel obstruction. There is no evidence to suggest acute appendicitis or dive rticulitis. Images through the pelvis were performed. Stable lobulated appearance the urinary bladder, possibly n eobladder. Stable small hyperdense nodule in the urinary bladder/neobladder (axial image 134). No asc ites is seen. There is stable extensive heterotopic ossification about the pelvis and proximal femora . Stable destructive change of the sacrum, especially on the left side, as well as inferior portion o f L5. Stable decubitus ulcer extending into the left ischium. Impression: Stable extensive chronic changes in the pelvis, including extensive heterotopic ossification, and pro bable chronic osteomyelitis of the sacrum and L5 vertebral body. Stable decubitus ulcer extending obinna n to the left ischium. Minimal right pleural fluid. Possible neobladder, with stable lobulated appearance and stable small hyperdense/enhancing nodule. C orrelate with surgical history. Reviewed, dictated and finalized at location . FLOOR WORKER Impression: Stable extensive chronic changes in the pelvis, including extensive heterotopic ossification, and probable chronic osteomyelitis of the sacrum and L5 vertebra l body. Stable decubitus ulcer extending down to the left ischium. Minimal right pleural fluid. Possible neobladder, with stable lobulated appearance and stable small hyperden se/enhancing nodule. Correlate with surgical history.
--- NOTE | 2022-11-03 16:18 | ECG_ITS ---
Measurements Intervals [place] Rate: 65 P: 62 ND: 177 QRS: 54 QRSD: 97 T: 54 QT: 425 QTc: 444 Interpretive Statements SINUS RHYTHM DIFFUSE ST ABNORMALITY CONSIDER IN EARLY REPOLARIZATION, PERICARDITIS AND OR ACUTE INJURY BORDERLINE ECG COMPARED TO ECG 08/29/2022 21:42:42 HEART RATE HAS INCREASED Electronically Signed On 11-03-2022 18:07:29 LACEMAKER by Michael Aaron M.D.
[2022-11-03 16:33] LABS: Glucose Point of Care 116 mg/dl (65-105)
[2022-11-03 16:49] LABS: Basophils Percent Auto 0.3 % (0.2-1.2); Eosinophils Absolute Auto 0.1 K/mm3 (0-0.3); Eosinophils Percent Auto 1.1 % (0-4.4); Hematocrit 38.6 % (42.0-52.0); Hemoglobin 12.5 g/dL (14.0-18.0); Immature Granulocyte Absolute 0.03 K/mm3 (0.00-0.031); Immature Granulocyte Percent A 0.3 % (0-0.5); Lymphocytes Percent Auto 15.7 % (18.3-44.2); Mean Corpuscular HGB Conc 32.4 g/dl (32-36); Mean Corpuscular Hemoglobin 25.4 pg (26-34); Mean Corpuscular Volume 78.5 fl (80-100); Mean Platelet Volume 11.7 fl (7.4-10.4); Monocytes Absolute Auto 0.4 K/mm3 (0.1-0.6); Monocytes Percent Auto 3.9 % (2.6-8.5); Neutrophils Percent Auto 78.7 % (45.5-73.1); Platelet Count Result 288 k/mm3 (150-375); Red Blood Count 4.92 M/mm3 (4.6-6.20); Red Cell Distribution Width 14.6 % (11.5-14.5); White Blood Count 8.9 K/mm3 (4.5-10.0)
[2022-11-03 16:53] LABS: Alanine Aminotransferase 23 U/L (6-50); Albumin Level 4.5 g/dL (3.5-5.1); Alkaline Phosphatase 126 U/L (38-126); Anion Gap 10 mmol/L (8-16); Aspartate Amino Transferase 29 U/L (17-59); Bilirubin,Total 0.8 mg/dL (0.2-1.3); Blood Urea Nitrogen 12 mg/dL (9-20); Calcium 8.9 mg/dL (8.4-10.2); Carbon Dioxide 22 mmol/L (22-30); Chloride 103 mmol/L (98-107); Estimated CRCL calculation 204 ml/min; Estimated Glomerular Filt Rate > 60; Glucose 114 mg/dL (65-110); Potassium 3.8 mmol/L (3.4-5.0); Sodium 135 mmol/L (137-145)
[2022-11-03] MEDS: ONDANSETRON INJ 4 MG/2 ML VIAL IV PUSH ×2 (16:57→19:50)
[2022-11-03 16:58] LABS: INR 1.1; Partial Thromboplastin Time 28.4 SECONDS (22.3-36.8); Prothrombin Time 13.6 Seconds (11.1-14.7)
[2022-11-03 17:04] LABS: Appearance Urine Cloudy (Clear); Bilirubin Urine Negative (Negative); Blood Urine Trace-Intact (Negative); Glucose Urine UA Negative (Negative); Ketones Urine 1+ mg/dL (Negative); Leukocyte Esterase Ur 2+ LEU/UL (Negative); Nitrate Urine Positive (Negative); Protein Urine 3+ mg/dL (Negative); Specific Grav Ur 1.015 (1.001-1.035); Urobilinogen Urine 0.2 mg/dL (<2.0); pH Urine 8.5 (5.0-9.0)
[2022-11-03 17:07] LABS: Mucus Urine Heavy /lpf; WBC Urine >75 /hpf
[2022-11-03 17:09] LABS: Add Urine Microscopic? YES; Color Urine Dark Yellow (Yellow)
[2022-11-03] MEDS: hydrALAZINE HCL 20 MG/ML VIAL 10 MG IV PUSH ×2 (17:25→18:35)
[2022-11-03] MEDS: MORPHINE SULFATE (*CRX) 4 MG/ML INJ IV PUSH ×3 (18:03→22:02)
--- NOTE | 2022-11-03 18:37 | ED.AMS ---
HPI - Altered Mental Status General Chief Complaint: Altered Mental Status Stated Complaint: AMS Time Seen by Provider: 11/03/22 16:23 Source: EMS Mode of arrival: EMS Limitations: altered mental status History of Present Illness HPI narrative: 37-year-old with a history of hypertension, morbid obesity, bilateral AKA was sent from a care home with complaints of altered mental status according to the care home patient been very lethargic. Upon arrival patient was alert complaining of abdominal pain. He denied any headache or chest pain or shortness of breath. Patient states that he had a bowel movement yesterday. He has a suprapubic catheter. MD complaint: altered mental status Onset (ago): day(s) (1) Timing confirmed by: other (care home) Severity: moderate Related Data Home Medications Medication Instructions Recorded Confirmed fentanyl 50 mcg/hr transdermal 1 patch topical Q3D 06/16/21 06/18/22 patch omeprazole 20 mg tablet,delayed 20 mg PO DAILY 06/16/21 06/18/22 release ondansetron HCl 4 mg tablet 4 mg PO Q6H PRN Nausea And Vomiting 06/16/21 06/18/22 polyethylene glycol 3350 17 gram 17 g PO DAILY 06/16/21 06/18/22 oral powder packet potassium chloride 20 mEq 40 meq PO DAILY 06/16/21 06/18/22 tablet,extended release(part/cryst) sennosides 8.6 mg-docusate sodium 1 tablet PO DAILY 06/16/21 06/18/22 50 mg tablet (Senna Plus) acetaminophen 500 mg capsule 500 mg PO Q6H PRN pain or fever 05/02/22 06/18/22 amino acids-protein hydrolysate 15 1 ea PO BID 05/02/22 06/18/22 gram-100 kcal/30 mL oral liquid pkt (Pro-Stat Sugar Free) ascorbic acid (vitamin C) 500 mg 500 mg PO BID 05/02/22 06/18/22 tablet clonidine 0.3 mg/24 hr weekly 1 patch transdermal WEEKLY 05/02/22 06/18/22 transdermal patch clonidine HCl 0.1 mg tablet 0.1 mg PO BID PRN high blood 05/02/22 06/18/22 pressure cyclobenzaprine 5 mg tablet 5 mg PO TID PRN Muscle Spasm 05/02/22 06/18/22 gabapentin 100 mg capsule 100 mg PO TID 05/02/22 06/18/22 linaclotide 290 mcg capsule 1 cap PO DAILY 05/02/22 06/18/22 (Linzess) nifedipine 60 mg tablet,extended 60 mg PO DAILY 05/02/22 06/18/22 release 24 hr silver sulfadiazine 1 % topical 1 applic topical DAILY 05/02/22 06/18/22 cream (SSD) lactulose 10 gram/15 mL oral 30 ml PO DAILY 06/18/22 06/18/22 solution multivitamin with minerals 1 cap PO DAILY 06/18/22 06/18/22 sodium phosphates 19 gram-7 118 ml RECTAL DAILY PRN 06/18/22 06/18/22 gram/118 mL enema (Fleet Enema) Constipation Allergies Allergy/AdvReac Type Severity Reaction Status Date / Time metoclopramide [From Reglan] Allergy Other Verified 08/29/22 21:53 Review of Systems Review of Systems: All systems reviewed & are unremarkable except as noted in HPI and below Constitutional: Constitutional: Reports no additional constitutional complaints Eyes: Eyes: Reports no additional eye complaints ENT: Reports system reviewed and no additional complaints, except as documented Cardiovascular: Cardiovascular: Reports no additional cardiovascular complaints Respiratory: Respiratory: Reports no additional respiratory complaints Gastrointestinal: Gastrointestinal: Reports abdominal pain Musculoskeletal: Musculoskeletal: Reports no additional musculoskeletal complaints Integumentary/Breasts: Skin/Breast: Reports system reviewed and no additional complaints, except as docu Neurologic: Reports system reviewed and no additional complaints, except as documented PMFSH Past Medical History Medical History Abdominal pain Chest pain Diabetes Diabetes mellitus Discitis DVT prophylaxis Essential hypertension HTN (hypertension) Hypertensive urgency Osteomyelitis Paraplegia Pyelonephritis Sacral decubitus ulcer, stage III Surgical History Surgical History S/P BKA (below knee amputation) bilateral Family History
[2022-11-03] MEDS: cloNIDine HCL 0.2 MG TABLET PO (19:45)
[2022-11-03 19:50] LABS: Influenza A QL RT-PCR Negative (Negative); Influenza B QL RT-PCR Negative (Negative); RSV RNA, RT-PCR Negative (Negative); SARS-CoV-2 RNA PCR Negative
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
--- NOTE | 2022-11-03 21:41 | ADMIMU ---
This patient, Shawn Casey Jr., was admitted to IMU status, and placed in Intensive Care Unit-6. Patient/family oriented to hospital policies and general routines including ID bracelet, bed and alarms, visiting hours, pain management, procedures, bathroom and other care routines, personal items, smoking policy, room service/diet, and visiting hours. Valuables list has been completed. Information on how to activate the Rapid Response Team has been discussed. Patient/Family are encouraged to report perceived risks to care and to ask questions if they do not understand what they are told or what they should do.
[2022-11-04] VITALS (16 sets, daily range): BP systolic 95–165; BP diastolic 50–111; PULSE 67–100; RESP 15–25; TEMP 36.2–37.2; O2SAT 98–100; BMI 53.0
[2022-11-04] MEDS: ACETAMINOPHEN 325 MG TABLET 650 MG PO (00:10)
[2022-11-04] MEDS: MORPHINE SULFATE (*CRX) 4 MG/ML INJ IV PUSH (00:10)
[2022-11-04] MEDS: oxyCODONE/ACETAMINOPHEN (*CRX) 10-325 MG TABLET 1 TAB PO ×3 (04:47→20:39)
[2022-11-04] MEDS: SODIUM CHLORIDE 0.9% IV 1,000 ML 75 ML IV CONT (05:09)
[2022-11-04 05:17] LABS: Basophils Percent Auto 0.1 % (0.2-1.2); Eosinophils Percent Auto 0.4 % (0-4.4); Hematocrit 32.7 % (42.0-52.0); Hemoglobin 10.4 g/dL (14.0-18.0); Immature Granulocyte Absolute 0.02 K/mm3 (0.00-0.031); Immature Granulocyte Percent A 0.3 % (0-0.5); Lymphocytes Percent Auto 19.7 % (18.3-44.2); Mean Corpuscular HGB Conc 31.8 g/dl (32-36); Mean Corpuscular Hemoglobin 25.6 pg (26-34); Mean Corpuscular Volume 80.5 fl (80-100); Mean Platelet Volume 11.7 fl (7.4-10.4); Monocytes Absolute Auto 0.5 K/mm3 (0.1-0.6); Monocytes Percent Auto 7.4 % (2.6-8.5); Neutrophils Absolute Auto 5.1 K/mm3 (1.3-6.7); Neutrophils Percent Auto 72.1 % (45.5-73.1); Platelet Count Result 261 k/mm3 (150-375); Red Blood Count 4.06 M/mm3 (4.6-6.20); Red Cell Distribution Width 14.5 % (11.5-14.5); White Blood Count 7.1 K/mm3 (4.5-10.0)
[2022-11-04 05:31] LABS: Anion Gap 7 mmol/L (8-16); Blood Urea Nitrogen 11 mg/dL (9-20); Calcium 8.3 mg/dL (8.4-10.2); Carbon Dioxide 26 mmol/L (22-30); Chloride 104 mmol/L (98-107); Estimated CRCL calculation 147 ml/min; Estimated Glomerular Filt Rate > 60; Glucose 114 mg/dL (65-110); Potassium 3.4 mmol/L (3.4-5.0); Sodium 137 mmol/L (137-145)
[2022-11-04] MEDS: SODIUM CHLORIDE 0.9% IV 1,000 ML 999 ML IV CONT ×2 (08:01→09:55)
[2022-11-04] MEDS: LINACLOTIDE 145 MCG CAPSULE 290 MCG PO (08:44)
[2022-11-04] MEDS: ASCORBIC ACID 500 MG TABLET PO ×2 (08:45→17:16)
[2022-11-04] MEDS: busPIRone HCL 2.5 MG TABLET PO ×2 (08:45→20:39)
[2022-11-04] MEDS: busPIRone HCL 5 MG TABLET PO ×2 (08:45→20:39)
[2022-11-04] MEDS: BISACODYL 5 MG TABLET EC 10 MG PO (08:45)
[2022-11-04] MEDS: PANTOPRAZOLE 40 MG TABLET PO (08:45)
[2022-11-04] MEDS: ENOXAPARIN 40 MG/0.4 ML SYRINGE SUB-Q (08:45)
[2022-11-04] MEDS: GABAPENTIN 100 MG CAPSULE PO ×3 (08:45→17:16)
[2022-11-04] MEDS: SENNA/DOCUSATE SODIUM TABLET 1 TAB PO (08:45)
[2022-11-04] MEDS: THERAPEUTIC MULTIVITAMINS/MINERALS TAB (*BKC) 1 TABLET PO (08:45)
[2022-11-04] MEDS: POTASSIUM CHLORIDE 20 MEQ TABLET 40 MEQ PO (10:57)
[2022-11-04] MEDS: SILVERGEL (ELTA) 45 ML 1 APPLIC TOPICAL (10:58)
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
[2022-11-04 13:43] LABS: Lactic Acid Reflex 1.6 mmol/L (0.7-2.0)
[2022-11-04] MEDS: SODIUM CHLORIDE 0.9% IV 1,000 ML 125 ML IV CONT (17:15)
[2022-11-05] VITALS (10 sets, daily range): BP systolic 125–201; BP diastolic 70–125; PULSE 53–98; RESP 12–28; TEMP 36.6–37.3; O2SAT 97–100
[2022-11-05] MEDS: SODIUM CHLORIDE 0.9% IV 1,000 ML 125 ML IV CONT ×3 (01:37→21:07)
[2022-11-05 04:39] LABS: Basophils Percent Auto 0.2 % (0.2-1.2); Eosinophils Absolute Auto 0.1 K/mm3 (0-0.3); Eosinophils Percent Auto 1.4 % (0-4.4); Hematocrit 35.7 % (42.0-52.0); Hemoglobin 11.1 g/dL (14.0-18.0); Immature Granulocyte Absolute 0.02 K/mm3 (0.00-0.031); Immature Granulocyte Percent A 0.2 % (0-0.5); Lymphocytes Absolute Auto 3.05 K/mm3 (0.9-3.2); Lymphocytes Percent Auto 30.2 % (18.3-44.2); Mean Corpuscular HGB Conc 31.1 g/dl (32-36); Mean Corpuscular Hemoglobin 25.4 pg (26-34); Mean Corpuscular Volume 81.7 fl (80-100); Mean Platelet Volume 11.5 fl (7.4-10.4); Monocytes Absolute Auto 0.5 K/mm3 (0.1-0.6); Monocytes Percent Auto 4.5 % (2.6-8.5); Neutrophils Absolute Auto 6.4 K/mm3 (1.3-6.7); Neutrophils Percent Auto 63.5 % (45.5-73.1); Platelet Count Result 246 k/mm3 (150-375); Red Blood Count 4.37 M/mm3 (4.6-6.20); Red Cell Distribution Width 15.1 % (11.5-14.5); White Blood Count 10.1 K/mm3 (4.5-10.0)
[2022-11-05] MEDS: oxyCODONE/ACETAMINOPHEN (*CRX) 10-325 MG TABLET 1 TAB PO ×2 (05:00→10:18)
[2022-11-05] MEDS: LINACLOTIDE 145 MCG CAPSULE 290 MCG PO (05:01)
[2022-11-05 05:19] LABS: Alanine Aminotransferase 18 U/L (6-50); Alkaline Phosphatase 108 U/L (38-126); Anion Gap 10 mmol/L (8-16); Aspartate Amino Transferase 20 U/L (17-59); Bilirubin,Total 0.5 mg/dL (0.2-1.3); Blood Urea Nitrogen 11 mg/dL (9-20); Calcium 8.1 mg/dL (8.4-10.2); Carbon Dioxide 20 mmol/L (22-30); Chloride 111 mmol/L (98-107); Estimated CRCL calculation 170 ml/min; Estimated Glomerular Filt Rate > 60; Glucose 99 mg/dL (65-110); Magnesium 1.9 mg/dL (1.6-2.3); Potassium 3.9 mmol/L (3.4-5.0); Sodium 141 mmol/L (137-145)
[2022-11-05] MEDS: fentaNYL (*CRX) 50 MCG PATCH TRANSDERM (08:13)
[2022-11-05] MEDS: HYDROmorphone HCL INJ (*CRX) 1 MG/ML SYR IV PUSH ×4 (08:23→23:28)
[2022-11-05] MEDS: ENOXAPARIN 40 MG/0.4 ML SYRINGE SUB-Q (10:09)
[2022-11-05] MEDS: BISACODYL 5 MG TABLET EC 10 MG PO (10:12)
[2022-11-05] MEDS: polyethylene glycoL 3350 17 GM POWD.PACK PO (10:12)
[2022-11-05] MEDS: busPIRone HCL 5 MG TABLET PO ×2 (10:12→21:07)
[2022-11-05] MEDS: LACTULOSE 20 GM/30 ML UDC PO (10:13)
[2022-11-05] MEDS: SENNA/DOCUSATE SODIUM TABLET 1 TAB PO (10:13)
[2022-11-05] MEDS: GABAPENTIN 100 MG CAPSULE PO ×3 (10:13→17:29)
[2022-11-05] MEDS: PANTOPRAZOLE 40 MG TABLET PO (10:14)
[2022-11-05] MEDS: busPIRone HCL 2.5 MG TABLET PO ×2 (10:16→21:07)
[2022-11-05] MEDS: SILVERGEL (ELTA) 45 ML 1 APPLIC TOPICAL (10:50)
[2022-11-05] MEDS: HYDROmorphone HCL INJ (*CRX) 1 MG/ML SYR 0.5 MG IV PUSH (10:51)
--- NOTE | 2022-11-05 11:21 | PM.IMPN ---
Progress Note: A&P Assessment and Plan (1) Altered mental status: Qualifiers: Altered mental status type: unspecified Qualified Code(s): R41.82 - Altered mental status, unspecified Code(s): R41.82 - Altered mental status, unspecified Status: Acute Assessment and Plan: Patient more awake, alert, oriented -likely related to infection, severe sepsis, hypovolemia (2) Acute UTI: Code(s): N39.0 - Urinary tract infection, site not specified Status: Acute Assessment and Plan: Patient with acute UTI, history of E coli UTI in August 2022, June also susceptible to ceftriaxone -patient was started on ceftriaxone a this admission will continue -11/03 urine cultures: Negative so far -patient was given 2 L IV fluid boluses small as he did not receive any fluids in the ER and blood pressures were trending down -will decrease IV fluids as blood pressures have improved -lactic acids are normal (3) Abdominal pain: Code(s): R10.9 - Unspecified abdominal pain Status: Acute Assessment and Plan: Chronic abdominal pain, patient is on pain medications at home along with gabapentin -he also has chronic constipation for which she is on multiple medication at home, has started dose medications for heretoo 11/05/2022: Patient had severe right-sided abdominal pain, stat CT scan of the abdomen and pelvis did not show any abdominal pathology except extensive chronic changes in the pelvis including extensive heterotopic ossification and probable chronic osteomyelitis of the sacrum and L5 vertebral body. Stable decubitus ulcer extending down to the left history of. Minimal right pleural fluid. Possible neobladder with stable lobulated appearance is stable small hyperdense/enhancing nodule. -GI has been consulted -continue pain medications (4) Diabetes: Code(s): E11.9 - Type 2 diabetes mellitus without complications Status: Acute Assessment and Plan: Patient is not taking any medications for diabetes, is diet controlled -continue blood sugars have been stable (5) Essential hypertension: Code(s): I10 - Essential (primary) hypertension Status: Acute Assessment and Plan: Patient with essential hypertension, -will restart clonidine patch and p.o. which she takes at the correction (6) Sacral decubitus ulcer, stage III: Code(s): L89.153 - Pressure ulcer of sacral region, stage 3 Status: Chronic Assessment and Plan: Wound Care has been consulted (7) DVT prophylaxis: Code(s): Z29.9 - Encounter for prophylactic measures, unspecified Status: Acute Assessment and Plan: Lovenox Plan DVT prophylaxis: Lovenox Stress ulcer prophylaxis: Protonix Nutrition: General diet Code Status: Full code Due to a high probability of clinically significant, life threatening deterioration, the patient required my highest level of preparedness to intervene emergently and I personally spent this critical care time directly and personally managing the patient. This critical care time included obtaining a history; examining the patient; pulse oximetry; ordering and review of studies; arranging urgent treatment with development of a management plan; evaluation of patient's response to treatment; frequent reassessment; and discussions with other providers. It was exclusive of separately billable procedures and treating other patients and teaching time. Please see Assessment and Plan section and the rest of the note for further information on patient assessment and treatment This dictation may have been done utilizing a voice recognition system. Attempts have been made to correct errors. However, there may be uncorrected grammatical, spelling, and recognitions errors present. Subjective Date/time seen: 11/05/22 11:21 Interval history: This is a 37-year-old male with past medical history significant for celeste
[2022-11-05] MEDS: cloNIDine 0.3 MG/24 HR PATCH 1 PATCH TRANSDERM (12:00)
[2022-11-05] MEDS: cloNIDine HCL 0.1 MG TABLET PO (12:07)
[2022-11-05] MEDS: ONDANSETRON INJ 4 MG/2 ML VIAL IV PUSH ×2 (12:58→17:37)
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
[2022-11-05] MEDS: LORazepam INJ (*CRX) 2 MG/ML VIAL 0.5 MG IV PUSH (14:17)
[2022-11-05] MEDS: hydrALAZINE HCL 20 MG/ML VIAL 10 MG IV PUSH (14:17)
--- NOTE | 2022-11-05 15:59 | PM.CNGS ---
Assessment and Plan Assessment and plan (1) Abdominal pain: Code(s): R10.9 - Unspecified abdominal pain Status: Acute Assessment and Plan: Exam indeterminate, imaging reviewed and negative, questionable organic etiology pain, likely psychosomatic in nature History of Present Illness Consult details Consult date: 11/05/22 Reason for consult: abdominal pain Requesting physician: Stefania Chatman MD Narrative: The patient is a 37-year-old male with multiple medical issues including bilateral BKA and paraplegia presenting with altered mental status, controlled hypertension, UTI. The patient has since developed intractable abdominal pain. Multiple exams, including imaging, have been negative today. Per nursing, the patient continues to ask for pain medication constantly and reports 10/10 pain at all times. The pain is more located on the right side of his abdomen, although he has diffuse tenderness. Review of Systems Review of Systems: ROS unobtainable: Yes unobtainable due to medical condition and unobtainable due to mental status PMFSH Past Medical History Medical History Abdominal pain Chest pain Diabetes Diabetes mellitus Discitis DVT prophylaxis Essential hypertension HTN (hypertension) Hypertensive urgency Osteomyelitis Paraplegia Pyelonephritis Sacral decubitus ulcer, stage III Surgical History Surgical History S/P BKA (below knee amputation) bilateral Family History Family History Father History of blood clots Mother Diabetes mellitus Hypertension Social History Social History Smoking packs per day: 1 Smoking cigarettes per day: 20.0 Years smoked: 12 Smoking pack-years: 12.00 Smoking status: Never smoker Tobacco type: cigarettes Smoking end date: 10/15/18 Alcohol intake: never Substance use: never Substance use type: marijuana Last use: 04/25/22 Lack of Transportation: No Lack of Food: Never True Current Housing: I Have Housing Concerned About Future Housing: No Difficulty Paying Gas/Electric Bills: No Difficulty Paying for Meds: No Currently Unemployed: No Education: High School Diploma/GED Difficulty w/ Childcare or Family Care: No Spiritual care concerns: No Meds Home Medications and Allergies Home Medications Medication Instructions Recorded Confirmed Type fentanyl 50 mcg/hr transdermal 1 patch topical Q4D 06/16/21 11/03/22 History patch omeprazole 20 mg tablet,delayed 20 mg PO DAILY 06/16/21 11/03/22 History release ondansetron HCl 4 mg tablet 4 mg PO Q6H PRN Nausea And Vomiting 06/16/21 11/03/22 History polyethylene glycol 3350 17 gram 17 g PO DAILY 06/16/21 11/03/22 History oral powder packet potassium chloride 20 mEq 40 meq PO DAILY 06/16/21 11/03/22 History tablet,extended release(part/cryst) sennosides 8.6 mg-docusate sodium 1 tablet PO DAILY 06/16/21 11/03/22 History 50 mg tablet (Senna Plus) acetaminophen 500 mg capsule 500 mg PO Q6H PRN pain or fever 05/02/22 11/03/22 History amino acids-protein hydrolysate 15 1 ea PO BID 05/02/22 11/03/22 History gram-100 kcal/30 mL oral liquid pkt (Pro-Stat Sugar Free) ascorbic acid (vitamin C) 500 mg 500 mg PO BID 05/02/22 11/03/22 History tablet clonidine 0.3 mg/24 hr weekly 1 patch transdermal WEEKLY 05/02/22 11/03/22 History transdermal patch clonidine HCl 0.1 mg tablet 0.1 mg PO BID PRN high blood 05/02/22 11/03/22 History pressure cyclobenzaprine 5 mg tablet 5 mg PO TID PRN Muscle Spasm 05/02/22 11/03/22 History gabapentin 100 mg capsule 100 mg PO TID 05/02/22 11/03/22 History linaclotide 290 mcg capsule 1 cap PO DAILY 05/02/22 11/03/22 History (Linzess) nifedipine 60 mg tablet,extended 60 mg PO DAILY 05/02/22 11/03/22
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
[2022-11-05] MEDS: ASCORBIC ACID 500 MG TABLET PO (17:28)
[2022-11-05] MEDS: NIFEdipine 30 MG TAB.ER.24 60 MG PO (18:32)
[2022-11-06] VITALS: BP 107/71; PULSE 124; RESP 12; TEMP 37.1; O2SAT 98
[2022-11-06] MEDS: LINACLOTIDE 145 MCG CAPSULE 290 MCG PO (05:52)
[2022-11-06 08:00] VITALS: BP 119/85; PULSE 120; RESP 16; TEMP 37; O2SAT 100
[2022-11-06] MEDS: BISACODYL 5 MG TABLET EC 10 MG PO (08:01)
[2022-11-06] MEDS: ASCORBIC ACID 500 MG TABLET PO ×2 (08:01→16:16)
[2022-11-06] MEDS: busPIRone HCL 5 MG TABLET PO (08:01)
[2022-11-06] MEDS: LACTULOSE 20 GM/30 ML UDC PO (08:02)
[2022-11-06] MEDS: GABAPENTIN 100 MG CAPSULE PO ×3 (08:02→16:16)
[2022-11-06] MEDS: NIFEdipine 30 MG TAB.ER.24 60 MG PO (08:02)
[2022-11-06] MEDS: ENOXAPARIN 40 MG/0.4 ML SYRINGE SUB-Q (08:02)
[2022-11-06] MEDS: PANTOPRAZOLE 40 MG TABLET PO (08:02)
[2022-11-06] MEDS: busPIRone HCL 2.5 MG TABLET PO (08:02)
[2022-11-06] MEDS: SILVERGEL (ELTA) 45 ML 1 APPLIC TOPICAL (08:03)
[2022-11-06] MEDS: THERAPEUTIC MULTIVITAMINS/MINERALS TAB (*BKC) 1 TABLET PO (08:03)
[2022-11-06] MEDS: SENNA/DOCUSATE SODIUM TABLET 1 TAB PO (08:03)
[2022-11-06] MEDS: polyethylene glycoL 3350 17 GM POWD.PACK PO (08:03)
--- NOTE | 2022-11-06 08:44 | WPDGIPROGNO ---
Progress Note: A&P Assessment and Plan (1) Abdominal pain: Code(s): R10.9 - Unspecified abdominal pain Status: Acute Assessment and Plan: Patient has severe right flank pain has abated. I suspect this may be related to pyelonephritis given his active urinary tract infection. Continue supportive care. Pain appears improved today. (2) Acute UTI: Code(s): N39.0 - Urinary tract infection, site not specified Status: Acute (3) Acute pyelonephritis: Code(s): N10 - Acute pyelonephritis Status: Acute Assessment and Plan: Pyelonephritis suspected given active urinary tract infection and right flank pain. Continue antibiotics as prescribed. (4) Osteomyelitis: Code(s): M86.9 - Osteomyelitis, unspecified Status: Chronic (5) Sacral decubitus ulcer, stage III: Code(s): L89.153 - Pressure ulcer of sacral region, stage 3 Status: Chronic (6) Paraplegia: Code(s): G82.20 - Paraplegia, unspecified Status: Acute Subjective Date/time seen: 11/06/22 08:44 Patient appears more comfortable today. Of he states that he has obtained some relief from his rather significant right flank pain. Review of Systems Review of Systems: Review of systems noncontributory. Exam Narrative: Physical exam reveals patient alert. Vital signs stable lying in bed. HEENT exam reveals no icterus. Lungs are clear. Heart without murmur. Abdomen is obese soft nontender with no organomegaly. He has bilateral amputations. Paraplegic. Objective Data Vital Signs Vital Signs: Vital Signs - 24 hr 11/05/22 10:00 11/05/22 12:16 11/05/22 14:19 Temperature 97.9 F 98.1 F Pulse Rate 82 61 53 L Respiratory Rate 24 H 20 Blood Pressure 200/115 H 201/113 H Pulse Oximetry 97 100 Oxygen Delivery 11/05/22 16:13 11/06/22 00:00 Temperature 98.8 F Pulse Rate 124 H Respiratory Rate 12 Blood Pressure 107/71 Pulse Oximetry 100 98 Oxygen Delivery Room Air Intake/Output Intake/Output: Intake & Output 11/03/22 11/04/22 11/05/22 11/06/22 23:59 23:59 23:59 23:59 Intake Total 50 4770 3600 520 Output Total 3100 3300 600 Balance 50 1670 300 -80 Meds/Results Medications: Active Medications Generic Name Dose Route Start Last Admin Trade Name Edelmira PRN Reason Stop Dose Admin Acetaminophen 500 mg 11/04/22 00:56 Acetaminophen 500 Mg Tablet PO Q6H PRN Pain Rated 1-3 or Fever Ascorbic Acid 500 mg 11/04/22 09:00 11/06/22 08:01 Ascorbic Acid 500 Mg Tablet PO 500 mg BID MARYANN Administration Bisacodyl 10 mg 11/04/22 09:00 11/06/22 08:01 Bisacodyl 5 Mg Tablet Ec PO 10 mg DAILY MARYANN Administration Buspirone HCl 2.5 mg 11/04/22 09:00 11/06/22 08:02 Buspirone Hcl 2.5 Mg Tablet PO 2.5 mg Q12HR MARYANN Administration Buspirone HCl 5 mg 11/04/22 09:00 11/06/22 08:01 Buspirone Hcl 5 Mg Tablet PO 5 mg Q12HR MARYANN Administration Clonidine HCl 0.1 mg 11/04/22 00:56 11/05/22 12:07 Clonidine Hcl 0.1 Mg Tablet PO 0.1 mg BID PRN Administration high blood pressure Clonidine HCl 1 patch 11/05/22 12:00 11/05/22 12:00 Clonidine 0.3 Mg/24 Hr Patch TRANSDERM 1 patch We MARYANN Administration Cyclobenzaprine HCl 5 mg 11/04/22 00:56 Cyclobenzaprine Hcl 5 Mg Tablet PO TID PRN Muscle Spasm Enoxaparin Sodium 40 mg 11/04/22 09:00 11/06/22 08:02 Enoxaparin 40 Mg/0.4 Ml Syringe SUB-Q 40 mg DAILY MARYANN Administration Fentanyl 50 mcg 11/05/22 09:00 11/05/22 08:13 Fentanyl (*Crx) 50 Mcg Patch TRANSDERM 50 mcg Q72HR MARYANN Administration Gabapentin 100 mg 11/04/22 09:00 11/06/22 08:02 Gabapentin 100 Mg Capsule PO 100 mg TID MARYANN Administration Hydralazine HCl 10 mg 11/05/22 14:08 11/05/22 14:17 Hydralazine Hcl 20 Mg/Ml Vial IV PUSH 10 mg Q4H PRN Administration Blood Pressure - High Hydromorphone HCl 1 mg 11/05/22 15:05 11/05/22 23:28
[2022-11-06] MEDS: SODIUM CHLORIDE 0.9% IV 1,000 ML 75 ML IV CONT (09:51)
[2022-11-06] MEDS: HYDROmorphone HCL INJ (*CRX) 1 MG/ML SYR IV PUSH ×2 (12:06→14:57)
--- NOTE | 2022-11-06 13:13 | PM.PNGS ---
Progress Note: A&P Assessment and Plan (1) Abdominal pain: Code(s): R10.9 - Unspecified abdominal pain Status: Acute Assessment and Plan: largely resolved and located more in R flank, likely secondary to pyelonephritis, no acute surgical issues, will s/o, call c ?s, issues Subjective Subjective Date/Time Seen: 11/06/22 13:13 better today, still c R flank pain but less severe Review of Systems Review of Systems: All systems reviewed & are unremarkable except as noted in HPI and below Exam Const: General: cooperative, acute distress mild and ill appearing Resp: Auscultation: diminished lung sounds Cardio: Rate: tachycardic Rhythm: regular rhythm GI: Inspection: normal to inspection and non-distended GI Palp: Yes abdominal tenderness, Yes Soft to palpation, Yes Tenderness to palpation present (GI), No Guarding due to palpation present (GI) and No Rigid due to palpation Other: R flank TTP Objective Data Vital Signs Vital Signs: Vital Signs - 24 hr 11/05/22 14:19 11/05/22 16:13 11/06/22 00:00 Temperature 36.7 C 37.1 C Pulse Rate 53 L 124 H Respiratory Rate 20 12 Blood Pressure 201/113 H 107/71 Pulse Oximetry 100 100 98 Oxygen Delivery Room Air 11/06/22 08:00 Temperature 37.0 C Pulse Rate 120 H Respiratory Rate 16 Blood Pressure 119/85 Pulse Oximetry 100 Oxygen Delivery Intake/Output Intake/Output: Intake & Output 11/03/22 11/04/22 11/05/22 11/06/22 23:59 23:59 23:59 23:59 Intake Total 50 4770 3600 1770 Output Total 3100 3300 600 Balance 50 3029 967 5165 Meds/Results Medications: Active Medications Generic Name Dose Route Start Last Admin Trade Name Freq PRN Reason Stop Dose Admin Acetaminophen 500 mg 11/04/22 00:56 Acetaminophen 500 Mg Tablet PO Q6H PRN Pain Rated 1-3 or Fever Ascorbic Acid 500 mg 11/04/22 09:00 11/06/22 08:01 Ascorbic Acid 500 Mg Tablet PO 500 mg BID MARYANN Administration Bisacodyl 10 mg 11/04/22 09:00 11/06/22 08:01 Bisacodyl 5 Mg Tablet Ec PO 10 mg DAILY MARYANN Administration Buspirone HCl 2.5 mg 11/04/22 09:00 11/06/22 08:02 Buspirone Hcl 2.5 Mg Tablet PO 2.5 mg Q12HR MARYANN Administration Buspirone HCl 5 mg 11/04/22 09:00 11/06/22 08:01 Buspirone Hcl 5 Mg Tablet PO 5 mg Q12HR MARYANN Administration Clonidine HCl 0.1 mg 11/04/22 00:56 11/05/22 12:07 Clonidine Hcl 0.1 Mg Tablet PO 0.1 mg BID PRN Administration high blood pressure Clonidine HCl 1 patch 11/05/22 12:00 11/05/22 12:00 Clonidine 0.3 Mg/24 Hr Patch TRANSDERM 1 patch We MARYANN Administration Cyclobenzaprine HCl 5 mg 11/04/22 00:56 Cyclobenzaprine Hcl 5 Mg Tablet PO TID PRN Muscle Spasm Enoxaparin Sodium 40 mg 11/04/22 09:00 11/06/22 08:02 Enoxaparin 40 Mg/0.4 Ml Syringe SUB-Q 40 mg DAILY MARYANN Administration Fentanyl 50 mcg 11/05/22 09:00 11/05/22 08:13 Fentanyl (*Crx) 50 Mcg Patch TRANSDERM 50 mcg Q72HR MARYANN Administration Gabapentin 100 mg 11/04/22 09:00 11/06/22 12:06 Gabapentin 100 Mg Capsule PO 100 mg TID MARYANN Administration Hydralazine HCl 10 mg 11/05/22 14:08 11/05/22 14:17 Hydralazine Hcl 20 Mg/Ml Vial IV PUSH 10 mg Q4H PRN Administration Blood Pressure - High Hydromorphone HCl 1 mg 11/05/22 15:05 11/06/22 12:06 Hydromorphone Hcl Inj (*Crx) 1 Mg/Ml Syr IV PUSH 1 mg Q3H PRN Administration Pain Rated 7-10 Sodium Chloride 1,000 mls @ 75 mls/hr 11/03/22 18:50 11/06/22 09:51 Normal Saline Iv IV CONT 75 mls/hr .[id number] MARYANN Administration Ceftriaxone Sodium/Dextrose 1 gm in 50 mls @ 100 mls/hr 11/04/22 18:00 11/05/22 17:29 Rocephin 1 Gm/D5w 50 Ml IVPB 100 mls/hr Q24H MARYANN Administration Lactulose 20 gm 11/05/22 09:00 11/06/22 08:02 Lactulose 20 Gm/30 Ml Udc PO 20 gm QAM MARYANN Administration Linaclotide 290 mcg 11/04/22 06:30 11/06/22 05:52 Linaclotide 145 Mcg Capsule PO 29
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
[2022-11-06 15:07] LABS: SARS-CoV-2 RNA PCR Negative
[2022-11-06 16:00] VITALS: TEMP 37.1
--- NOTE | 2022-11-06 17:05 | PC.NURSE ---
Patient Medical patient this shift. 0900 patient reports no pain at this time, complete bath given. At 1445, Patient made aware he will be leaving today, patient 10/10 pain. Medication given. Monitor taken off at 1545 pm. SR 84. Dinner arrived at 4:45, refused to eat at this time. EMS here to get patient at 1700. Patient left. 1700 dose of gabapentin given prior to departure.
== END 2022-11-06 17:10 | DRG 698 ==
LOC: ANHED 18:49 → ANHICU 20:53
PROVIDERS: Internal Medicine; Admitting Provider Student in an Organized Health Care Education/Training Program; Emergency Provider Family Medicine; PCP Internal Medicine; Visit Provider Chiropractor
DX: T83.510A Infection and inflammatory reaction due to cystostomy catheter, initial encounter (principal); A41.9 Sepsis, unspecified organism; R65.20 Severe sepsis without septic shock; L89.153 Pressure ulcer of sacral region, stage 3; N39.0 Urinary tract infection, site not specified; Z68.43 Body mass index [BMI] 50.0-59.9, adult; G82.20 Paraplegia, unspecified; M86.68 Other chronic osteomyelitis, other site; I16.0 Hypertensive urgency; Z20.822 Contact with and (suspected) exposure to COVID-19; E66.01 Morbid (severe) obesity due to excess calories; E11.9 Type 2 diabetes mellitus without complications; Z89.512 Acquired absence of left leg below knee; Z89.511 Acquired absence of right leg below knee; Z87.891 Personal history of nicotine dependence
CPT/HCPCS: 36415; 51701; 70450; 74176; 74177; 76775; 80048; 80053; 81001; 82948; 83605; 83735; 84100; 85025; 85610; 85730; 87086; 87088; 87637; 93005; 96361; 96365; 96375; 96376; 99285; A9270; G0378; J0360; J0696; J1170; J1650; J2060; J2270; J2405; J7030; Q9967; U0003; U0005

== ENCOUNTER 2023-01-24 15:57 | Emergency (ER) | payer OTHER, SELFPAY ==
[2023-01-24] VITALS (55 sets, daily range): BP systolic 109–224; BP diastolic 66–128; PULSE 48–114; RESP 8–24; TEMP 36.9; O2SAT 95–100
--- NOTE | ~2023-01-24 | CT_ITS ---
EXAMINATION: CT abdomen pelvis w con DATE: 01/24/2023 18:26 INDICATION: Right abdominal pain TECHNIQUE: Computed tomography (CT) of the abdomen and pelvis was performed with 100 mL Omnipaque-350 intravenous contrast. Automated exposure control and iterative reconstruction technique were employe d. The dose-length product was 1376.53 mGy-cm. COMPARISON: 11/05/2022. FINDINGS: Lower thorax: Bibasilar scar/atelectasis Liver: Normal. Biliary/Gallbladder: Gallbladder is absent. No bile duct dilation. Pancreas: No mass or duct dilation. Spleen: Normal. Adrenals:No mass. Kidneys: Multiple bilateral simple cysts and lesions that are too small to characterize but also most likely represent cysts. No obstructing calcification or hydronephrosis. GI tract: Mild distal esophageal and gastric wall edema. No small or large bowel dilation. Appendix n ot visualized. Uncomplicated right lower quadrant bowel anastomosis. Mesentery/Peritoneum: No ascites, mass, or free air. Retroperitoneum: No mass. IVC filter. Pelvis: Stable neobladder, with lobulations and soft tissue nodularity as previously described. Soft Tissues: Stable decubitus ulcer/scarring. Bones: No acute osseous finding. Chronic extensive heterotopic bone formation in the bilateral hips. Chronic changes of sacral and left ischial osteomyelitis. Chronic L5-S1 discitis/osteomyelitis, with out significant interval change. Partially visualized, uncomplicated appearing left femoral fixation hardware IMPRESSION: Mild esophagitis/gastritis. Otherwise, no acute abdominopelvic process detected. Extensive chronic an d post surgical changes detailed above. Reviewed, dictated and finalized at location K. IMPRESSION: Mild esophagitis/gastritis. Otherwise, no acute abdominopelvic process detected . Extensive chronic and post surgical changes detailed above.
--- NOTE | 2023-01-24 15:57 | ECG_ITS ---
Measurements Intervals [place] Rate: 53 P: 47 PA: 172 QRS: 40 QRSD: 98 T: 39 QT: 422 QTc: 398 Interpretive Statements SINUS BRADYCARDIA BORDERLINE ECG NO PREVIOUS ECG AVAILABLE FOR COMPARISON Electronically Signed On 01-24-2023 17:27:22 CDT by Toi Greebnerg D.O.
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
[2023-01-24 16:58] LABS: Basophils Percent Auto 0.3 % (0.2-1.2); Eosinophils Percent Auto 0.3 % (0-4.4); Hematocrit 42.4 % (42.0-52.0); Immature Granulocyte Absolute 0.03 K/mm3 (0.00-0.031); Immature Granulocyte Percent A 0.4 % (0-0.5); Lymphocytes Percent Auto 14.2 % (18.3-44.2); Mean Corpuscular Hemoglobin 26.5 pg (26-34); Mean Corpuscular Volume 80.3 fl (80-100); Mean Platelet Volume 11.2 fl (7.4-10.4); Monocytes Absolute Auto 0.2 K/mm3 (0.1-0.6); Monocytes Percent Auto 3.1 % (2.6-8.5); Neutrophils Absolute Auto 6.4 K/mm3 (1.3-6.7); Neutrophils Percent Auto 81.7 % (45.5-73.1); Platelet Count Result 277 k/mm3 (150-375); Red Blood Count 5.28 M/mm3 (4.6-6.20); Red Cell Distribution Width 14.5 % (11.5-14.5); White Blood Count 7.8 K/mm3 (4.5-10.0)
[2023-01-24 17:08] LABS: Alanine Aminotransferase 25 U/L (6-50); Albumin Level 4.9 g/dL (3.5-5.1); Alkaline Phosphatase 160 U/L (38-126); Anion Gap 10 mmol/L (8-16); Aspartate Amino Transferase 27 U/L (17-59); Bilirubin,Total 0.7 mg/dL (0.2-1.3); Blood Urea Nitrogen 14 mg/dL (9-20); Calcium 9.6 mg/dL (8.4-10.2); Carbon Dioxide 25 mmol/L (22-30); Chloride 104 mmol/L (98-107); Estimated Glomerular Filt Rate > 60; Glucose 125 mg/dL (65-110); Lipase 314 U/L (23-300); Potassium 4.3 mmol/L (3.4-5.0); Sodium 139 mmol/L (137-145)
[2023-01-24] MEDS: SODIUM CHLORIDE 0.9% IV 1,000 ML 999 ML IV CONT (17:58)
[2023-01-24] MEDS: ONDANSETRON INJ 4 MG/2 ML VIAL IV PUSH (17:58)
[2023-01-24] MEDS: HYDROmorphone HCL INJ (*CRX) 1 MG/ML SYR 0.5 MG IV PUSH (18:00)
[2023-01-24 19:37] LABS: Appearance Urine Cloudy (Clear); Bilirubin Urine Negative (Negative); Color Urine Yellow (Yellow); Glucose Urine UA Negative (Negative); Ketones Urine 1+ mg/dL (Negative); Leukocyte Esterase Ur 3+ LEU/UL (Negative); Need Manual Microscopic Reviewed; Nitrate Urine Positive (Negative); Protein Urine Trace mg/dL (Negative); RBC Urine 0-2 /hpf (0-2); Specific Grav Ur 1.029 (1.001-1.035); Squamous Epithelial Cell Urine None seen /hpf (Few); WBC Urine >100 /hpf
[2023-01-24 19:50] LABS: Add Urine Microscopic? YES
[2023-01-24] MEDS: LABETALOL HCL INJ 100 MG/20 ML VIAL 20 MG IV PUSH (20:08)
--- NOTE | 2023-01-24 22:43 | PC.NURSE ---
[facility] called for update of pt status. Pt reported to be stable and waiting for decision from EDP at this time. [phone] number given by [facility] to call with update for care plan.
--- NOTE | 2023-01-24 23:11 | PC.NURSE ---
Report received from PARAM [place]. Assumed care of patient at this time.
--- NOTE | 2023-01-24 23:23 | PC.NURSE ---
Pt straight cath at this time per pt request to umbilicious. 400ml of urine output at this time.
--- NOTE | 2023-01-24 23:24 | PC.NURSE ---
[facility] called and spoke with JASMINA Jenkins at this time. JASMINA Jenkins aware of d/c instruction of new antibiotic that will be with d/c paperwork.
--- NOTE | 2023-01-24 23:41 | PC.NURSE ---
Report given to Zamzam RN
--- NOTE | 2023-01-24 23:54 | PC.NURSE ---
Patient given soda for ride home.
== END 2023-01-24 23:55 ==
PROVIDERS: Emergency Provider Emergency Medicine; PCP Internal Medicine
DX: K20.90 Esophagitis, unspecified without bleeding (principal); K29.70 Gastritis, unspecified, without bleeding; R10.9 Unspecified abdominal pain; E11.9 Type 2 diabetes mellitus without complications; I10 Essential (primary) hypertension
CPT/HCPCS: 36415; 74177; 80053; 81001; 83690; 85025; 87077; 87086; 87186; 93005; 96361; 96365; 96375; 99284; J0696; J1170; J2405; J7030; Q9967

== ENCOUNTER 2023-04-13 16:07 | Observation (INO) | payer OTHER, SELFPAY ==
[2023-04-13] VITALS (18 sets, daily range): BP systolic 146–191; BP diastolic 97–127; PULSE 50–88; RESP 12–33; TEMP 36.1–36.5; O2SAT 95–100; BMI 45.3
--- NOTE | ~2023-04-13 | CT_ITS ---
EXAMINATION: CT abdomen pelvis w con INDICATION: Abdominal pain TECHNIQUE: Computed tomographic images of the abdomen and pelvis were obtained after the administrati on of 100 cc of Omnipaque 350 intravenous contrast. The dose-length product (DLP) was 1535.01 mGy-cm. Automated exposure control and iterative reconstruction technique were employed. COMPARISON: 01/24/2023 FINDINGS: Minimal dependent atelectasis is present in the lung bases. The heart size is normal. Bilat eral gynecomastia is noted. The gallbladder is surgically absent. There is an enhancing collateral ve ssel running the length of the right lateral chest wall and continuing along the lateral aspect of th e right abdomen and pelvis and into the right lower extremity. A branch of the collateral appears to enter the caudal aspect of the right hepatic lobe resulting in transient hepatic attenuation differen ce. The spleen, pancreas, and adrenal glands are normal. The gallbladder is surgically absent. Cysts of the kidneys measure up to 1.9 cm on the right. No pathologically enlarged abdominal or pelvic lymp h nodes are identified. No free intraperitoneal gas or evidence of bowel obstruction. There is a cond uit from the umbilicus to the urinary bladder for the purposes of catheterization. There is severe jayme mbar spondylosis. Chronic erosions are again noted at L5 and S1. There are chronic sacral decubitus u lcers. There is atrophy of the iliopsoas and gluteal muscle, resulting from bilateral [id number]-[id number] amputations. Chronic deformities are again noted in the proximal femurs. IMPRESSION: 1. No CT correlate for the patient's symptoms. 2. Right sided collateral vessel in the subcutaneous tissues extending from the visualized portions o f the right thorax caudally into at least the proximal right lower extremity. Reviewed, dictated and finalized at location F. IMPRESSION: 1. No CT correlate for the patient's symptoms. 2. Right sided collateral vessel in the subcutaneous tissues extending from the visualized portions of the right thorax caudally into at least the proximal ri ght lower extremity.
--- NOTE | 2023-04-13 16:13 | ECG_ITS ---
Measurements Intervals [place] Rate: 55 P: 54 CA: 161 QRS: 60 QRSD: 120 T: 47 QT: 465 QTc: 448 Interpretive Statements SINUS BRADYCARDIA MODERATE INTRAVENTRICULAR CONDUCTION DELAY [110+ ms QRS DURATION] ABNORMAL ECG COMPARED TO ECG 01/24/2023 16:05:48 INTRAVENTRICULAR CONDUCTION DELAY NOW PRESENT Electronically Signed On 04-14-2023 13:30:34 CDT by Trino Valentin M.D.
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
[2023-04-13 16:28] LABS: Basophils Percent Auto 0.3 % (0.2-1.2); Eosinophils Absolute Auto 0.1 K/mm3 (0-0.3); Eosinophils Percent Auto 0.7 % (0-4.4); Hematocrit 42.6 % (42.0-52.0); Immature Granulocyte Absolute 0.06 K/mm3 (0.00-0.031); Immature Granulocyte Percent A 0.5 % (0-0.5); Lymphocytes Absolute Auto 1.72 K/mm3 (0.9-3.2); Lymphocytes Percent Auto 14.1 % (18.3-44.2); Mean Corpuscular HGB Conc 32.9 g/dl (32-36); Mean Corpuscular Hemoglobin 26.9 pg (26-34); Mean Corpuscular Volume 81.8 fl (80-100); Mean Platelet Volume 11.5 fl (7.4-10.4); Monocytes Absolute Auto 0.4 K/mm3 (0.1-0.6); Monocytes Percent Auto 3.6 % (2.6-8.5); Neutrophils Absolute Auto 9.9 K/mm3 (1.3-6.7); Neutrophils Percent Auto 80.8 % (45.5-73.1); Platelet Count Result 285 k/mm3 (150-375); Red Blood Count 5.21 M/mm3 (4.6-6.20); White Blood Count 12.2 K/mm3 (4.5-10.0)
[2023-04-13] MEDS: HYDROmorphone HCL INJ (*CRX) 1 MG/ML SYR 0.5 MG IV PUSH ×3 (17:01→21:20)
[2023-04-13] MEDS: SODIUM CHLORIDE 0.9% IV 1,000 ML 999 ML IV CONT (17:02)
[2023-04-13] MEDS: ONDANSETRON INJ 4 MG/2 ML VIAL IV PUSH (17:02)
[2023-04-13 17:35] LABS: Lactic Acid Reflex 1.2 mmol/L (0.7-2.0)
[2023-04-13 17:43] LABS: Alanine Aminotransferase 37 U/L (6-50); Albumin Level 4.5 g/dL (3.5-5.1); Alkaline Phosphatase 96 U/L (38-126); Anion Gap 13 mmol/L (8-16); Aspartate Amino Transferase 35 U/L (17-59); Bilirubin,Total 0.7 mg/dL (0.2-1.3); Blood Urea Nitrogen 15 mg/dL (9-20); Calcium 8.6 mg/dL (8.4-10.2); Carbon Dioxide 19 mmol/L (22-30); Chloride 107 mmol/L (98-107); Estimated Glomerular Filt Rate > 60; Glucose 108 mg/dL (65-110); Lipase 144 U/L (23-300); Sodium 139 mmol/L (137-145)
[2023-04-13 17:46] LABS: Appearance Urine Clear (Clear); Bacteria Urine 4+ /hpf; Bilirubin Urine Negative (Negative); Blood Urine Negative (Negative); Color Urine Yellow (Yellow); Glucose Urine UA Negative (Negative); Ketones Urine Negative (Negative); Leukocyte Esterase Ur 3+ LEU/UL (Negative); Nitrate Urine Positive (Negative); Non Pathogenic Casts 0-2; Protein Urine Negative (Negative); RBC Urine 0-2 /hpf (0-2); Specific Grav Ur 1.011 (1.001-1.035); Squamous Epithelial Cell Urine None seen /hpf (Few); pH Urine 6.5 (5.0-9.0)
[2023-04-13 17:48] LABS: Add Urine Microscopic? YES
[2023-04-13] MEDS: CEFEPIME 1 GM/NS 50 ML 1 GM/50 ML BAG IVPB (18:27)
--- NOTE | 2023-04-13 19:21 | PC.NURSE ---
Assumed care of pt. at this time report from PARAM [place]
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
[2023-04-13] MEDS: DICYCLOMINE HCL INJ 20 MG/2 ML VIAL IM (21:01)
[2023-04-13] MEDS: LACTATED RINGERS 1,000 ML 125 ML IV CONT (21:17)
--- NOTE | 2023-04-13 22:12 | ADMGEN ---
This patient, Shawn Casey Jr., was admitted to [facility] Surg Room 316-02. Patient/family oriented to hospital policies and general routines including ID bracelet, bed and alarms, visiting hours, pain management, procedures, bathroom and other care routines, personal items, smoking policy, room service/diet, and visiting hours. Information on how to activate the Rapid Response Team has been discussed. Patient/Family are encouraged to report perceived risks to care and to ask questions if they do not understand what they are told or what they should do.
[2023-04-14] MEDS: CEFEPIME 1 GM in SODIUM CHLORIDE 0.9% IV 50 ML IVPB ×2 (05:14→17:10)
[2023-04-14] MEDS: LACTATED RINGERS 1,000 ML 125 ML IV CONT ×3 (05:15→21:41)
[2023-04-14] MEDS: LINACLOTIDE 145 MCG CAPSULE 290 MCG PO (05:15)
[2023-04-14 05:35] VITALS: BP 92/63; PULSE 88; RESP 14; TEMP 36.2; O2SAT 100
[2023-04-14 06:36] LABS: Basophils Percent Auto 0.3 % (0.2-1.2); Eosinophils Absolute Auto 0.1 K/mm3 (0-0.3); Eosinophils Percent Auto 0.8 % (0-4.4); Hemoglobin 11.2 g/dL (14.0-18.0); Immature Granulocyte Absolute 0.03 K/mm3 (0.00-0.031); Immature Granulocyte Percent A 0.4 % (0-0.5); Lymphocytes Absolute Auto 2.37 K/mm3 (0.9-3.2); Lymphocytes Percent Auto 30.9 % (18.3-44.2); Mean Corpuscular HGB Conc 31.1 g/dl (32-36); Mean Corpuscular Hemoglobin 26.8 pg (26-34); Mean Corpuscular Volume 86.1 fl (80-100); Mean Platelet Volume 11.8 fl (7.4-10.4); Monocytes Absolute Auto 0.5 K/mm3 (0.1-0.6); Monocytes Percent Auto 6.6 % (2.6-8.5); Neutrophils Absolute Auto 4.7 K/mm3 (1.3-6.7); Platelet Count Result 213 k/mm3 (150-375); Red Blood Count 4.18 M/mm3 (4.6-6.20); Red Cell Distribution Width 15.1 % (11.5-14.5); White Blood Count 7.7 K/mm3 (4.5-10.0)
[2023-04-14 06:46] LABS: Anion Gap 8 mmol/L (8-16); Blood Urea Nitrogen 10 mg/dL (9-20); Carbon Dioxide 27 mmol/L (22-30); Chloride 108 mmol/L (98-107); Estimated CRCL calculation 166 ml/min; Potassium 3.4 mmol/L (3.4-5.0); Sodium 143 mmol/L (137-145)
[2023-04-14 06:47] LABS: Alanine Aminotransferase 32 U/L (6-50); Alkaline Phosphatase 92 U/L (38-126); Aspartate Amino Transferase 26 U/L (17-59); Bilirubin,Total 0.6 mg/dL (0.2-1.3); Calcium 8.3 mg/dL (8.4-10.2); Estimated Glomerular Filt Rate > 60; Glucose 91 mg/dL (65-110); Lipase 91 U/L (23-300)
[2023-04-14 08:05] LABS: Glucose Point of Care 91 mg/dl (65-105)
[2023-04-14] MEDS: ENOXAPARIN 40 MG/0.4 ML SYRINGE SUB-Q (08:46)
[2023-04-14] MEDS: SPIRONOLACTONE 25 MG TABLET PO ×2 (08:47→17:09)
[2023-04-14] MEDS: BISACODYL 5 MG TABLET EC 10 MG PO (08:47)
[2023-04-14 08:48] VITALS: PULSE 97
[2023-04-14] MEDS: POTASSIUM CHLORIDE 20 MEQ TABLET.ER 40 MEQ PO (08:48)
[2023-04-14] MEDS: PROPRANOLOL HCL 40 MG TABLET PO ×2 (08:48→20:11)
[2023-04-14] MEDS: MIDODRINE HCL 2.5 MG TABLET 5 MG PO ×2 (08:49→17:06)
[2023-04-14] MEDS: NIFEdipine 30 MG TAB.ER.24 60 MG PO (08:49)
[2023-04-14] MEDS: ASCORBIC ACID 500 MG TABLET PO ×2 (08:50→17:07)
[2023-04-14] MEDS: FUROSEMIDE 20 MG TABLET PO ×2 (08:50→17:08)
[2023-04-14] MEDS: SENNA/DOCUSATE SODIUM TABLET 2 TAB PO (08:50)
[2023-04-14] MEDS: PANTOPRAZOLE 40 MG TABLET PO (08:50)
[2023-04-14] MEDS: busPIRone HCL 2.5 MG, busPIRone HCL 5 MG 7.5 MG PO ×2 (08:50→20:11)
[2023-04-14] MEDS: LACTULOSE 20 GM/30 ML UDC PO (08:51)
[2023-04-14] MEDS: polyethylene glycoL 3350 17 GM POWD.PACK PO (08:51)
[2023-04-14] MEDS: CYCLOBENZAPRINE HCL 5 MG TABLET PO ×2 (09:14→20:11)
[2023-04-14] MEDS: GABAPENTIN 100 MG CAPSULE PO ×3 (09:14→17:15)
[2023-04-14 11:27] LABS: Glucose Point of Care 119 mg/dl (65-105)
--- NOTE | 2023-04-14 13:31 | PM.IMPN ---
Progress Note: A&P Assessment and Plan (1) Acute UTI: Code(s): N39.0 - Urinary tract infection, site not specified Status: Acute Assessment and Plan: The patient straight caths himself through his umbilical area. The patient has a history of drug-resistant E coli ESBL. This is sensitive to cefepime. The patient was started on cefepime. Blood and urine cultures are pending. Tailor antibiotic therapy to culture results Continue with IV fluids (2) Essential hypertension: Code(s): I10 - Essential (primary) hypertension Status: Acute Assessment and Plan: continue with his home medications of clonidine, Lasix, nifedipine, Aldactone, and Inderal. (3) Chronic pain: Code(s): G89.29 - Other chronic pain Status: Acute Assessment and Plan: continue with fentanyl patch and continue with muscle relaxer. Subjective Date/time seen: 04/14/23 13:31 Interval history: Patient states that he is having some right lower quadrant tenderness. He has been having this for a while now but is unknown as to what is causing pain. CT did not correlate with his symptoms. Being treated for UTI currently. He denies nausea, vomiting, chest pain, shortness a breath and diarrhea. He did have nausea vomiting prior to ED arrival but is since resolved. Review of Systems Review of Systems: All systems reviewed & are unremarkable except as noted in HPI and below Exam Narrative: GENERAL: Comfortable, no acute distress HENMT: moist mucous membranes EYES: EOM intact b/l NECK: no lymphadenopathy RESPIRATORY: clear to auscultation CARDIO: RRR GI: soft, Right lower quadrant tenderness, bowel sounds present SKIN: no rashes EXTREMITIES: no edema, redness or tenderness Objective Data Vital Signs Vital Signs: Vital Signs - 24 hr 04/13/23 16:08 04/13/23 16:47 04/13/23 17:01 Temperature 97.7 F Pulse Rate 57 L 50 L 58 L Respiratory Rate 12 27 H 29 H Blood Pressure 191/127 H 191/121 H 179/103 H Pulse Oximetry 95 95 100 Oxygen Delivery Room Air 04/13/23 17:02 04/13/23 17:17 04/13/23 21:03 Temperature Pulse Rate 68 66 88 Respiratory Rate 26 H 23 H 14 Blood Pressure 186/114 H Pulse Oximetry 100 100 97 Oxygen Delivery 04/13/23 19:30 04/13/23 19:33 04/13/23 19:45 Temperature Pulse Rate 68 53 L 56 L Respiratory Rate 12 15 19 Blood Pressure 190/111 H Pulse Oximetry 100 100 100 Oxygen Delivery 04/13/23 19:46 04/13/23 20:00 04/13/23 20:15 Temperature Pulse Rate 54 L 70 56 L Respiratory Rate 14 33 H 18 Blood Pressure 171/108 H Pulse Oximetry 100 Oxygen Delivery 04/13/23 20:16 04/13/23 20:30 04/13/23 20:31 Temperature Pulse Rate 54 L 55 L 55 L Respiratory Rate 13 12 13 Blood Pressure 181/110 H 182/112 H Pulse Oximetry Oxygen Delivery 04/13/23 20:45 04/13/23 21:34 04/14/23 05:35 Temperature 96.9 F L 97.2 F L Pulse Rate 66 59 L 88 Respiratory Rate 15 14 14 Blood Pressure 146/97 H 92/63 L Pulse Oximetry 100 100 Oxygen Delivery 04/14/23 08:48 04/13/23 22:11 Temperature 96.9 F L Pulse Rate 97 59 L Respiratory Rate Blood Pressure 146/97 H Pulse Oximetry 100 Oxygen Delivery Intake/Output Intake/Output: Intake & Output 04/11/23 04/12/23 04/13/23 04/14/23 23:59 23:59 23:59 23:59 Intake Total 1050 2448 Output Total 400 200 Balance 650 2248 Meds/Results Medications: Active Medications Generic Name Dose Route Start Last Admin Trade Name Freq PRN Reason Stop Dose Admin Acetaminophen 650 mg 04/13/23 18:57 Acetaminophen 325 Mg Tablet PO Q4H PRN Mild Pain (1-3) or Fever Ascorbic Acid 500 mg 04/14/23 09:00 04/14/23 08:50 Ascorbic Acid 500 Mg Tablet PO 500 mg BID MARYANN Administration Bisacodyl 10 mg 04/14/23 09:00 04/14/23 08:47 Bisacodyl 5 Mg Tablet Ec PO 10 mg DAILY MARYANN Administration Bisacodyl 10 mg 04/14/23 09:00 Bisacodyl 10
--- NOTE | 2023-04-14 13:34 | PCCCNOTE ---
On 04/14/23, the student, [Marta Serrano ], provided care and completed [facility] documentation on this patient. I have reviewed the student's documentation and agree with the findings.
[2023-04-14 14:00] VITALS: BP 122/73; PULSE 72; RESP 16; TEMP 36.4; O2SAT 100
[2023-04-14 20:00] VITALS: PULSE 88; RESP 18; O2SAT 100
[2023-04-14 20:11] VITALS: PULSE 88
[2023-04-14] MEDS: oxyCODONE/ACETAMINOPHEN (*CRX) 10-325 MG TABLET 1 TAB PO (20:11)
[2023-04-14 21:26] VITALS: BP 106/56; PULSE 88; RESP 18; TEMP 36.1; O2SAT 100
[2023-04-15] MEDS: HYDROmorphone HCL INJ (*CRX) 1 MG/ML SYR 0.5 MG IV PUSH ×3 (00:02→13:07)
[2023-04-15] MEDS: LACTATED RINGERS 1,000 ML 125 ML IV CONT (05:20)
[2023-04-15] MEDS: CEFEPIME 1 GM in SODIUM CHLORIDE 0.9% IV 50 ML IVPB (05:21)
[2023-04-15] MEDS: LINACLOTIDE 145 MCG CAPSULE 290 MCG PO (05:21)
[2023-04-15 06:00] VITALS: BP 134/69; PULSE 88; RESP 18; TEMP 36.1; O2SAT 99
[2023-04-15 06:52] LABS: Basophils Percent Auto 0.4 % (0.2-1.2); Eosinophils Absolute Auto 0.2 K/mm3 (0-0.3); Eosinophils Percent Auto 2.5 % (0-4.4); Hemoglobin 10.9 g/dL (14.0-18.0); Immature Granulocyte Absolute 0.04 K/mm3 (0.00-0.031); Immature Granulocyte Percent A 0.5 % (0-0.5); Lymphocytes Percent Auto 34.3 % (18.3-44.2); Mean Corpuscular HGB Conc 30.3 g/dl (32-36); Mean Corpuscular Hemoglobin 26.5 pg (26-34); Mean Corpuscular Volume 87.6 fl (80-100); Mean Platelet Volume 11.9 fl (7.4-10.4); Monocytes Absolute Auto 0.6 K/mm3 (0.1-0.6); Monocytes Percent Auto 7.1 % (2.6-8.5); Neutrophils Absolute Auto 4.4 K/mm3 (1.3-6.7); Neutrophils Percent Auto 55.2 % (45.5-73.1); Platelet Count Result 200 k/mm3 (150-375); Red Blood Count 4.11 M/mm3 (4.6-6.20); Red Cell Distribution Width 15.2 % (11.5-14.5); White Blood Count 7.9 K/mm3 (4.5-10.0)
[2023-04-15 07:01] LABS: Alanine Aminotransferase 30 U/L (6-50); Albumin Level 3.8 g/dL (3.5-5.1); Alkaline Phosphatase 80 U/L (38-126); Anion Gap 9 mmol/L (8-16); Aspartate Amino Transferase 23 U/L (17-59); Bilirubin,Total 0.4 mg/dL (0.2-1.3); Blood Urea Nitrogen 12 mg/dL (9-20); Calcium 8.1 mg/dL (8.4-10.2); Carbon Dioxide 25 mmol/L (22-30); Chloride 105 mmol/L (98-107); Estimated CRCL calculation 166 ml/min; Estimated Glomerular Filt Rate > 60; Glucose 82 mg/dL (65-110); Potassium 3.9 mmol/L (3.4-5.0); Sodium 139 mmol/L (137-145)
[2023-04-15 08:00] VITALS: PULSE 85; RESP 18; O2SAT 99
[2023-04-15] MEDS: SPIRONOLACTONE 25 MG TABLET PO (08:39)
[2023-04-15] MEDS: PANTOPRAZOLE 40 MG TABLET PO (08:39)
[2023-04-15] MEDS: SENNA/DOCUSATE SODIUM TABLET 2 TAB PO (08:39)
[2023-04-15] MEDS: ENOXAPARIN 40 MG/0.4 ML SYRINGE SUB-Q (08:39)
[2023-04-15] MEDS: POTASSIUM CHLORIDE 20 MEQ TABLET.ER 40 MEQ PO (08:40)
[2023-04-15] MEDS: FUROSEMIDE 20 MG TABLET PO (08:40)
[2023-04-15] MEDS: BISACODYL 5 MG TABLET EC 10 MG PO (08:40)
[2023-04-15 08:41] VITALS: PULSE 85
[2023-04-15] MEDS: PROPRANOLOL HCL 40 MG TABLET PO (08:41)
[2023-04-15] MEDS: busPIRone HCL 2.5 MG, busPIRone HCL 5 MG 7.5 MG PO (08:41)
[2023-04-15] MEDS: cloNIDine 0.3 MG/24 HR PATCH 1 PATCH TRANSDERM (08:43)
[2023-04-15] MEDS: ASCORBIC ACID 500 MG TABLET PO (08:43)
[2023-04-15 09:04] VITALS: BP 116/67
[2023-04-15] MEDS: GABAPENTIN 100 MG CAPSULE PO (09:22)
[2023-04-15] MEDS: LACTULOSE 20 GM/30 ML UDC PO (09:22)
[2023-04-15] MEDS: NIFEdipine 30 MG TAB.ER.24 60 MG PO (09:22)
[2023-04-15] MEDS: oxyCODONE/ACETAMINOPHEN (*CRX) 10-325 MG TABLET 1 TAB PO (09:25)
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
[2023-04-15] MEDS: NITROFURANTOIN MONOHYD MACROCR 100 MG CAP PO (13:01)
[2023-04-15 13:37] LABS: EDCOVIDSCREEN Negative (Negative)
[2023-04-15 14:00] VITALS: BP 116/70; PULSE 70; RESP 16; TEMP 36.9; O2SAT 100
[2023-04-15] MEDS: fentaNYL (*CRX) 75 MCG PATCH TRANSDERM (14:24)
--- NOTE | 2023-04-15 15:07 | PC.NURSE ---
Patient Discharged with Fentanyl Patch on Left Chest dated 04/15/23 8449. Report called to PARAM Real at [facility]. Patient is A-O-4 agreeable to RK Guillory RN
== END 2023-04-15 14:55 | disposition home or self-care (01) ==
LOC: ANHED 18:41 → ANH3MEDSUR 04-14 12:43
PROVIDERS: Internal Medicine Critical Care Medicine; Nurse Practitioner; Admitting Provider Internal Medicine; Emergency Provider Emergency Medicine; PCP Hospitalist; Visit Provider Internal Medicine
DX: N39.0 Urinary tract infection, site not specified (principal); B96.20 Unspecified Escherichia coli [E. coli] as the cause of diseases classified elsewhere; I10 Essential (primary) hypertension; G89.29 Other chronic pain; E11.9 Type 2 diabetes mellitus without complications; M86.9 Osteomyelitis, unspecified; R94.31 Abnormal electrocardiogram [ECG] [EKG]; Z20.822 Contact with and (suspected) exposure to COVID-19; D72.829 Elevated white blood cell count, unspecified; Z89.512 Acquired absence of left leg below knee; Z89.511 Acquired absence of right leg below knee; Z96.0 Presence of urogenital implants; R63.0 Anorexia; Z68.43 Body mass index [BMI] 50.0-59.9, adult; Z87.891 Personal history of nicotine dependence; F12.90 Cannabis use, unspecified, uncomplicated; Z79.1 Long term (current) use of non-steroidal anti-inflammatories (NSAID); Z79.891 Long term (current) use of opiate analgesic; Z79.899 Other long term (current) drug therapy
CPT/HCPCS: 36415; 74177; 80053; 81001; 82948; 83036; 83605; 83690; 85025; 87077; 87086; 87186; 87426; 93005; 96361; 96365; 96372; 96375; 96376; 99285; A9270; C9803; G0378; J0500; J0692; J1170; J1650; J2405; J7030; J7120; Q9967

== ENCOUNTER 2024-04-30 16:04 | Emergency (ER) | payer MEDICARE, MEDICAID, SELFPAY ==
[2024-04-30] VITALS (15 sets, daily range): BP systolic 133–169; BP diastolic 86–110; PULSE 50–92; RESP 13–30; TEMP 36.3; O2SAT 98–100
--- NOTE | ~2024-04-30 | XR_ITS ---
EXAMINATION: XR chest 1V portable DATE: 04/30/2024 17:23 INDICATION: Chest pain. TECHNIQUE: A single frontal view of the chest was obtained. COMPARISON: Chest single view 05/01/2022 FINDINGS: There is no pneumonia, pleural effusion, or pneumothorax. The heart size is normal. IMPRESSION: 1. No acute cardiopulmonary disease. Reviewed, dictated and finalized at location E.
--- NOTE | ~2024-04-30 | CT_ITS ---
EXAMINATION: CT abdomen pelvis w con DATE: 04/30/2024 19:04 INDICATION: Epigastric abdominal tenderness. TECHNIQUE: Computed tomography (CT) of the abdomen and pelvis was performed with 100 mL Omnipaque 350 intravenous contrast. Automated exposure control and iterative reconstruction technique were employe d. The dose-length product was 1545.60 mGy-cm. COMPARISON: CT abdomen and pelvis 04/13/2023 FINDINGS: The visualized portions of the lung bases demonstrate mild atelectasis. No pleural effusion . The heart size is normal. No pericardial effusion. The liver is normal. There are changes of cholec ystectomy. The spleen, pancreas, and adrenal glands are normal. There is cortical thinning of the kid neys. There are cysts in the kidneys measuring up to 18 mm on the right. There is a filter in the inf erior vena cava. 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 The bladder is distended . There are no dilated loops of bowel. There are no pathologically enlarged lymph nodes. There is no free intraperitoneal fluid. There is severe fatty atrophy of the musculature in the pelvis and thighs . There is internal fixation of left femur. 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 There is ankylosis of the sacroiliac joints. There are bridging endpl ate osteophytes at multiple levels in the spine, consistent with diffuse idiopathic skeletal hyperost osis (DISH). There is a chronic burst fracture of L5 with bone volume loss at L5-S1 and pseudarthrosi s. IMPRESSION: 1. No etiology for the patient's symptoms. Reviewed, dictated and finalized at location E.
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
[2024-04-30] MEDS: ONDANSETRON INJ 4 MG/2 ML VIAL IV PUSH ×3 (16:41→20:51)
[2024-04-30] MEDS: HYDROmorphone HCL INJ (*CRX) 1 MG/ML SYR IV PUSH (16:41)
--- NOTE | 2024-04-30 16:41 | ECG_ITS ---
Test Date: 2024-04-30 16:44:31 Measurements Intervals [place] Rate: 92 P: 57 HI: 152 QRS: 35 QRSD: 106 T: 6 QT: 390 QTc: 482 Interpretive Statements SINUS RHYTHM NORMAL ELECTROCARDIOGRAM No previous ECG available for comparison Electronically Signed On 05-01-2024 07:20:57 CDT by Mono Brown M.D.
[2024-04-30] MEDS: SODIUM CHLORIDE 0.9% IV 1,000 ML 999 ML IV CONT (16:42)
--- NOTE | 2024-04-30 16:44 | PC.NURSE ---
patient has diagnosed hypospadias with 3 hole visible on the penile shaft and one on the top of scrotum just below the penile shaft. patient typically does their own straight cath to empty urine through umbilicus.
[2024-04-30 17:00] LABS: Glucose Point of Care 139 mg/dl (65-105)
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
--- NOTE | 2024-04-30 17:49 | PC.NURSE ---
unable to get further IV access for labs. consulted phlebotomy for assistance and asked Dr. Galdamez for an ultrasound IV.
--- NOTE | 2024-04-30 18:17 | ECG_ITS ---
Test Date: 2024-04-30 18:26:22 Measurements Intervals [place] Rate: 40 P: 49 MI: 175 QRS: 46 QRSD: 114 T: 32 QT: 483 QTc: 397 Interpretive Statements SINUS BRADYCARDIA NONSPECIFIC ST SEGMENT CHANGES ABNORMAL ECG Compared to ECG 04/30/2024 16:44:31 SIGNIFICANT REDUCTION IN HEART RATE Electronically Signed On 05-01-2024 07:23:39 CDT by Mono Brown M.D.
[2024-04-30 18:25] LABS: Basophils Percent Auto 0.4 % (0.2-1.2); Eosinophils Percent Auto 0.1 % (0-4.4); Hematocrit 38.9 % (42.0-52.0); Hemoglobin 12.4 g/dL (14.0-18.0); Immature Granulocyte Absolute 0.07 K/mm3 (0.00-0.031); Immature Granulocyte Percent A 0.7 % (0-0.5); Lymphocytes Absolute Auto 1.36 K/mm3 (0.9-3.2); Mean Corpuscular HGB Conc 31.9 g/dl (32-36); Mean Corpuscular Hemoglobin 25.1 pg (26-34); Mean Corpuscular Volume 78.6 fl (80-100); Mean Platelet Volume 11.9 fl (7.4-10.4); Monocytes Absolute Auto 0.3 K/mm3 (0.1-0.6); Monocytes Percent Auto 2.6 % (2.6-8.5); Neutrophils Percent Auto 82.2 % (45.5-73.1); Platelet Count Result 296 k/mm3 (150-375); Red Blood Count 4.95 M/mm3 (4.6-6.20); Red Cell Distribution Width 15.7 % (11.5-14.5); White Blood Count 9.7 K/mm3 (4.5-10.0)
[2024-04-30 18:35] LABS: Lactic Acid Reflex 1.5 mmol/L (0.7-2.0)
[2024-04-30 18:38] LABS: Alanine Aminotransferase 46 U/L (6-50); Albumin Level 4.5 g/dL (3.5-5.1); Alkaline Phosphatase 150 U/L (38-126); Anion Gap 10 mmol/L (4-12); Aspartate Amino Transferase 30 U/L (17-59); Bilirubin,Total 0.4 mg/dL (0.2-1.3); Blood Urea Nitrogen 17 mg/dL (9-20); Calcium 8.8 mg/dL (8.4-10.2); Carbon Dioxide 21 mmol/L (22-30); Chloride 107 mmol/L (98-107); Estimated Glomerular Filt Rate > 60; Glucose 121 mg/dL (65-110); Lipase 233 U/L (23-300); Potassium 3.7 mmol/L (3.4-5.0); Sodium 138 mmol/L (137-145)
[2024-04-30 18:39] LABS: CRP 1.7 mg/dL (<1.0)
[2024-04-30] MEDS: HYDROmorphone HCL INJ (*CRX) 1 MG/ML SYR 0.5 MG IV PUSH ×3 (18:48→22:56)
[2024-04-30 19:31] LABS: Troponin I < 0.012 ng/mL (0.000-0.034)
[2024-04-30 20:21] LABS: Thyroid Stimulating Hormone Reflex 0.546 uIU/mL (0.465-4.68)
[2024-04-30 20:38] LABS: Appearance Urine Clear (Clear); Bacteria Urine 3+ /hpf; Bilirubin Urine Negative (Negative); Blood Urine Negative (Negative); Color Urine Yellow (Yellow); Glucose Urine UA Negative (Negative); Ketones Urine Negative (Negative); Leukocyte Esterase Ur Trace LEU/UL (Negative); Nitrate Urine Positive (Negative); Non Pathogenic Casts 0-2; Protein Urine Negative (Negative); RBC Urine 0-2 /hpf (0-2); Specific Grav Ur 1.012 (1.001-1.035); Squamous Epithelial Cell Urine None Seen /hpf (Few); pH Urine 7.5 (5.0-9.0)
[2024-04-30 20:40] LABS: Add Urine Microscopic? YES
--- NOTE | 2024-04-30 21:49 | PC.NURSE ---
redressed wounds on posterior right thigh and sacrum with sacral padded dressings. used two sacrum mepelex bandages to cover the area. roughly 40cm long and 20cm wide
[2024-04-30] MEDS: MEROPENEM 1 GM/NS 100 ML 1 GM/100 ML BAG IVPB (22:54)
--- NOTE | 2024-04-30 23:03 | PC.NURSE ---
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
--- NOTE | 2024-04-30 23:15 | PC.NURSE ---
care and report given to PARAM Rodriguez. all questions answered.
--- NOTE | 2024-04-30 23:46 | PC.NURSE ---
this rn assumed care of patient. this rn took patient report from PARAM Lowery.
[2024-05-01 00:11] VITALS: PULSE 104; RESP 18; O2SAT 100
[2024-05-01 00:15] VITALS: PULSE 104; RESP 18; O2SAT 98
[2024-05-01 00:45] VITALS: PULSE 110; RESP 21; O2SAT 98
[2024-05-01 01:00] VITALS: PULSE 120; RESP 20; O2SAT 100
[2024-05-01 01:45] VITALS: PULSE 117; RESP 18; O2SAT 100
[2024-05-01 01:48] VITALS: O2SAT 100
[2024-05-01] MEDS: fentaNYL (*CRX) 75 MCG PATCH TRANSDERM (02:24)
== END 2024-05-01 02:18 ==
PROVIDERS: Emergency Medicine; Emergency Provider Physician Assistant; PCP Hospitalist
DX: F11.23 Opioid dependence with withdrawal (principal); I10 Essential (primary) hypertension; E11.9 Type 2 diabetes mellitus without complications; G82.20 Paraplegia, unspecified; T14.8XXS Other injury of unspecified body region, sequela; V49.9XXS Car occupant (driver) (passenger) injured in unspecified traffic accident, sequela; Z87.891 Personal history of nicotine dependence; Z87.440 Personal history of urinary (tract) infections; Z89.512 Acquired absence of left leg below knee; Z89.511 Acquired absence of right leg below knee; Z79.899 Other long term (current) drug therapy
CPT/HCPCS: 36415; 71045; 74177; 80053; 81001; 82948; 83605; 83690; 84443; 84484; 85025; 86140; 87040; 87086; 87088; 93005; 96361; 96365; 96375; 96376; 99284; A9270; J1170; J2185; J2405; J7030; Q9967

== ENCOUNTER 2024-05-06 15:34 | Emergency (ER) | payer MEDICARE, MEDICAID, SELFPAY ==
[2024-05-06] VITALS (16 sets, daily range): BP systolic 128–163; BP diastolic 80–121; PULSE 54–96; RESP 12–30; TEMP 36.6; O2SAT 99–100
--- NOTE | ~2024-05-06 | CT_ITS ---
EXAMINATION: CT abdomen pelvis wo con DATE: 05/06/2024 16:08 INDICATION: Left flank pain. TECHNIQUE: Computed tomography (CT) of the abdomen and pelvis was performed without intravenous contr ast. Automated exposure control and iterative reconstruction technique were employed. The dose-length product was 1451.10 mGy-cm. COMPARISON: CT abdomen and pelvis 04/30/2024 FINDINGS: Just portions of the lung bases demonstrate mild atelectasis. No pleural effusion. The hear t size is normal. No pericardial effusion. The liver, spleen, pancreas, and adrenal glands are normal . There are changes of cholecystectomy. The kidneys are normal. There is no urolithiasis. There is a filter in the inferior vena cava. There is a large volume of stool in the colon. There are surgical c hanges of the bowel. There are no pathologically enlarged lymph nodes. There is no free intraperitone al fluid. There is severe fatty atrophy of some of the musculature in the pelvis and thighs. There is a chronic 5.6 x 2.4 x 2.3 cm cyst inferior to the urethra, which may be a Cowper duct cyst. There is internal fixation of left femur. 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 There is ankylosis of the sacroiliac joints. There are bridging endplate osteop hytes at multiple levels in the spine, consistent with diffuse idiopathic skeletal hyperostosis (DISH ). There is a chronic burst fracture of L5 with bone volume loss at L5-S1 and pseudarthrosis. IMPRESSION: 1. No etiology for the patient's symptoms. No urolithiasis. Reviewed, dictated and finalized at location E.
[2024-05-06] MEDS: SODIUM CHLORIDE 0.9% IV 1,000 ML 999 ML IV CONT (16:45)
[2024-05-06 16:46] LABS: Basophils Percent Auto 0.3 % (0.2-1.2); Eosinophils Absolute Auto 0.1 K/mm3 (0-0.3); Eosinophils Percent Auto 0.5 % (0-4.4); Hematocrit 39.2 % (42.0-52.0); Hemoglobin 12.3 g/dL (14.0-18.0); Immature Granulocyte Absolute 0.06 K/mm3 (0.00-0.031); Immature Granulocyte Percent A 0.5 % (0-0.5); Lymphocytes Percent Auto 9.9 % (18.3-44.2); Mean Corpuscular HGB Conc 31.4 g/dl (32-36); Mean Corpuscular Hemoglobin 25.1 pg (26-34); Mean Corpuscular Volume 79.8 fl (80-100); Monocytes Absolute Auto 0.3 K/mm3 (0.1-0.6); Neutrophils Absolute Auto 9.5 K/mm3 (1.3-6.7); Neutrophils Percent Auto 85.8 % (45.5-73.1); Platelet Count Result 275 k/mm3 (150-375); Red Blood Count 4.91 M/mm3 (4.6-6.20); Red Cell Distribution Width 16.4 % (11.5-14.5); White Blood Count 11.1 K/mm3 (4.5-10.0)
[2024-05-06] MEDS: ONDANSETRON INJ 4 MG/2 ML VIAL IV PUSH ×2 (16:46→19:13)
[2024-05-06] MEDS: HYDROmorphone HCL INJ (*CRX) 1 MG/ML SYR IV PUSH (16:46)
--- NOTE | 2024-05-06 16:47 | ED.GENADULT ---
HPI - General Adult General Chief complaint: Nausea/Vomiting/Diarrhea Stated complaint: N/V History of Present Illness HPI narrative: 38-year-old male presents to the emergency department for evaluation of persistent nausea vomiting and abdominal pain. Patient does have history of intractable nausea vomiting. Patient states he has also had the abdominal pain for approximately 10 years. Related Data Home Medications Medication Instructions Recorded Confirmed omeprazole 20 mg tablet,delayed 20 mg PO DAILY 06/16/21 04/13/23 release ondansetron HCl 4 mg tablet 4 mg PO Q6H PRN Nausea And Vomiting 06/16/21 04/13/23 polyethylene glycol 3350 17 gram 17 g PO DAILY 06/16/21 04/13/23 oral powder packet potassium chloride 20 mEq 40 meq PO DAILY 06/16/21 04/13/23 tablet,extended release(part/cryst) sennosides 8.6 mg-docusate sodium 2 tablet PO DAILY 06/16/21 04/13/23 50 mg tablet (Senna Plus) acetaminophen 500 mg capsule 500 mg PO Q6H PRN pain or fever 05/02/22 04/13/23 amino acids-protein hydrolysate 15 1 ea PO BID 05/02/22 04/13/23 gram-100 kcal/30 mL oral liquid pkt (Pro-Stat Sugar Free) ascorbic acid (vitamin C) 500 mg 500 mg PO BID 05/02/22 04/13/23 tablet clonidine 0.3 mg/24 hr weekly 1 patch transdermal WEEKLY 05/02/22 04/13/23 transdermal patch clonidine HCl 0.1 mg tablet 0.2 mg PO BID PRN high blood 05/02/22 04/13/23 pressure cyclobenzaprine 5 mg tablet 5 mg PO TID PRN Muscle Spasm 05/02/22 04/13/23 gabapentin 100 mg capsule 100 mg PO TID 05/02/22 04/13/23 linaclotide 290 mcg capsule 1 cap PO DAILY 05/02/22 04/13/23 (Linzess) nifedipine 60 mg tablet,extended 60 mg PO DAILY 05/02/22 04/13/23 release 24 hr silver sulfadiazine 1 % topical 1 applic topical DAILY 05/02/22 04/13/23 cream (SSD) lactulose 10 gram/15 mL oral 30 ml PO DAILY 06/18/22 04/13/23 solution sodium phosphates 19 gram-7 118 ml RECTAL DAILY PRN 06/18/22 04/13/23 gram/118 mL enema (Fleet Enema) Constipation bisacodyl 10 mg rectal suppository 10 mg RECTAL EVERY OTHER DAY 11/03/22 04/13/23 (Dulcolax (bisacodyl)) bisacodyl 5 mg tablet,delayed 10 mg PO DAILY 11/03/22 04/13/23 release (Dulcolax (bisacodyl)) buspirone 7.5 mg tablet 7.5 mg PO BID 11/03/22 04/13/23 magnesium citrate 150 ml PO BID PRN Constipation 11/03/22 04/13/23 propranolol 40 mg tablet 40 mg PO BID 11/03/22 04/13/23 fentanyl 75 mcg/hr transdermal 75 patch transdermal Q4D 04/13/23 04/13/23 patch furosemide 20 mg tablet (Lasix) 20 mg PO BID 04/13/23 04/13/23 spironolactone 25 mg tablet 25 mg PO BID 04/13/23 04/13/23 (Aldactone) Allergies Allergy/AdvReac Type Severity Reaction Status Date / Time metoclopramide [From Reglan] Allergy Other Verified 08/29/22 21:53 Review of Systems Review of Systems: All systems reviewed & are unremarkable except as noted in HPI and below PMFSH Past Medical History Medical History (Updated 05/07/24 @ 00:00 by Kimo Navarro) Abdominal pain Chest pain Chronic pain Discitis DVT prophylaxis Essential hypertension HTN (hypertension) Hypertensive urgency Osteomyelitis Paraplegia Pyelonephritis Sacral decubitus ulcer, stage III Surgical History Surgical History (Updated 04/14/23 @ 00:27 by Radha Roberts NP) Hx of cholecystectomy S/P BKA (below knee amputation) bilateral Family History Family History Father History of blood clots Mother Diabetes mellitus Hypertension Social History Social History (Updated 04/14/23 @ 00:31 by Radha Roberts NP) Social History: the patient stated that he uses marijuana but has not smoked cigarettes for quite some time. The patient resides in a fdc. He is single and does not have any children. Code status full code Smoking packs per day: 1 Smoking cigarettes per day: 20.0 Years smoked: 12 Smoking pack-years: 12.00 Smoking status: Never smoker Tobacco type: cigarettes Sm
[2024-05-06 16:56] LABS: Ovalocytes 1+; Platelet Estimate Adequate (Adequate); Schistocytes None Seen
[2024-05-06 16:57] LABS: Alanine Aminotransferase 32 U/L (6-50); Albumin Level 4.7 g/dL (3.5-5.1); Alkaline Phosphatase 155 U/L (38-126); Anion Gap 11 mmol/L (4-12); Aspartate Amino Transferase 23 U/L (17-59); Bilirubin,Total 0.6 mg/dL (0.2-1.3); Blood Urea Nitrogen 13 mg/dL (9-20); Calcium 8.8 mg/dL (8.4-10.2); Carbon Dioxide 20 mmol/L (22-30); Chloride 109 mmol/L (98-107); Estimated Glomerular Filt Rate > 60; Glucose 124 mg/dL (65-110); Sodium 140 mmol/L (137-145)
[2024-05-06] MEDS: DICYCLOMINE HCL INJ 20 MG/2 ML VIAL IM (17:21)
[2024-05-06] MEDS: fentaNYL (*CRX) 75 MCG PATCH TRANSDERM (19:33)
== END 2024-05-06 19:49 ==
PROVIDERS: Emergency Provider Emergency Medicine; PCP Internal Medicine
DX: R11.2 Nausea with vomiting, unspecified (principal); I10 Essential (primary) hypertension; G82.20 Paraplegia, unspecified; Z87.891 Personal history of nicotine dependence; Z79.899 Other long term (current) drug therapy
CPT/HCPCS: 36415; 74176; 80053; 85025; 96361; 96372; 96374; 96376; 99284; A9270; J0500; J1170; J2405; J7030

== ENCOUNTER 2024-05-22 17:29 | Inpatient (IN) | payer MEDICARE, MEDICAID, SELFPAY ==
--- NOTE | ~2024-05-22 | MR_ITS ---
EXAMINATION: MR MRCP wo/w con/w 3D wo ind DATE: 05/23/2024 13:14 INDICATION: Elevated lipase TECHNIQUE: Magnetic resonance imaging (MRI) of the abdomen was performed without and with 20 mL Multi juan intravenous contrast. Sequences included coronal T2-weighted SS-FSE, coronal T2-weighted FS SS- FSE, coronal T2-weighted FS FIESTA, axial T2-weighted FS FIESTA, axial T2-weighted FIESTA, sagittal T 2-weighted SS-FSE, axial T1-weighted dual-echo FSPGR, axial T2-weighted SS-FSE, axial T1-weighted LAV A, axial T2-weighted STIR FSE. Thick-slab T2-weighted FRFSE-XL images were obtained for magnetic reso nance cholangiopancreatography (MRCP). Rotating maximum intensity projection 3-D reconstructions of t he volumetric data were created by the technologist. Postcontrast sequences included a time course of axial T1-weighted LAVA. COMPARISON: CT dated 05/22/2024 FINDINGS: ABDOMEN MRI: Heart size is normal. No pericardial or pleural effusion. Gallbladder surgically absent with foci of susceptibility artifact associated with cholecystectomy clips the gallbladder fossa. Liver, spleen, p ancreas and bilateral adrenal glands are normal. There are bilateral T2 hyperintense nonenhancing luke al cysts measuring up to 1.5 cm both kidneys. Visualized bowels are unremarkable. No pathologically e nlarged abdominal or pelvic lymphadenopathy. Mild lumbar levocurvature. Chronic L5 burst fracture wit h severe vertebral body height loss and fluid signal extending across a pseudoarthrosis with the unde rlying S1 vertebral body. There are prominent hypertrophic changes along the bones at the lumbosacral junction including fusion across several facet joints as well as about both hips with fusion across the right hip. Prominent fatty atrophy of the psoas muscles, the lumbar paraspinal musculature and th e muscles in the pelvis. Diffuse feathery increased fluid signal in the right gluteus medias and mini mus muscle bellies likely related to denervation change. No pathologic marrow replacing process. ABDOMEN MRCP: Normal common bile duct measuring 3-4 mm maximal diameter with no intrahepatic biliary ductal dilatio n. No evident choledocholithiasis. The main pancreatic duct appears normal measuring up to 2 mm at th e head of the pancreas tapering distally to the tail. IMPRESSION: 1. Normal-appearing pancreas with normal caliber pancreatic duct and no evident pancreatic or peripan creatic increased fluid signal to suggest acute pancreatitis. 2. Status post cholecystectomy with no intra or extrahepatic biliary ductal dilation. Reviewed, dictated and finalized at location A. IMPRESSION: 1. Normal-appearing pancreas with normal caliber pancreatic duct and no evident pancreatic or peripancreatic increased fluid signal to suggest acute pancreati tis. 2. Status post cholecystectomy with no intra or extrahepatic biliary ductal dil ation.
--- NOTE | ~2024-05-22 | CT_ITS ---
EXAMINATION: CT abdomen pelvis w con DATE: 05/22/2024 20:00 INDICATION: R upper abd pain, N/V, elev lipase TECHNIQUE: Computed tomography (CT) of the abdomen and pelvis was performed with 100 mL Omnipaque-350 intravenous contrast. Automated exposure control and iterative reconstruction technique were employe d. The dose-length product was 1543.64 mGy-cm. COMPARISON: 05/06/2024, 05/20/2022. FINDINGS: Lower thorax: Symmetric bilateral gynecomastia. Liver: Normal. Biliary/Gallbladder: Gallbladder is absent. No bile duct dilation. Pancreas: No mass or duct dilation. Spleen: Normal. Adrenals:No mass. Kidneys: No suspicious mass, obstructing stone, or hydronephrosis simple left midpole cyst. Indetermi zahra density right upper and midpole lesions, likely proteinaceous cysts given the stability over 2 y ears. GI tract: No small or large bowel dilation. Surgically absent appendix. Mesentery/Peritoneum: No ascites, mass, or free air. Retroperitoneum: No mass. IVC filter. Pelvis: Mostly empty urinary bladder. Urinary catheter extending to the umbilicus.. Soft Tissues: Soft tissues and body wall unremarkable. Bones: No acute osseous finding. Severe chronic likely neuropathic deformity in the lower lumbar spi ne and bilateral hips. Bilateral SI joint and right hip ankylosis. Stable chronic burst fracture at L 5. Extensive fatty atrophy of muscles of the lower trunk and pelvis. Deep left buttock decubitus ulce r extending to bone, no change in the subjacent osseous erosions. IMPRESSION: No acute abdominopelvic process detected. Reviewed, dictated and finalized at location K.
--- NOTE | ~2024-05-22 | XR_ITS ---
XR fl guide central line place Ordering provider: Ralph Lazcano History: . INSERTION MICHAEL CATH . Comparison: None. FINDINGS/impression: Right Port-A-Cath placement. Fluoroscopy time 32.8 seconds. Cumulative dose is 8.92 mGy. Reviewed, dictated and finalized at location A.
--- NOTE | ~2024-05-22 | XR_ITS ---
XR chest port-a-cath/central Ordering provider: Ralph Lazcano DO History: 38 years Male with . POST-OP, INSERTION MICHAEL CATH . Comparison: May 23, 2024 FINDINGS: MEDIASTINUM: The cardiac silhouette is not enlarged. Right Port-A-Cath with the tip overlying the superior vena cava. LUNGS: No infiltrates, effusions or pneumothorax. OTHER: No free air under the diaphragm. IMPRESSION: No acute cardiopulmonary pathology. Reviewed, dictated and finalized at location A.
--- NOTE | ~2024-05-22 | XR_ITS ---
EXAMINATION: XR chest 1V portable Exam Date/Time: 05/23/2024 18:45 CDT HISTORY: SOB Comparison: 04/30/2024. RESULT: Lines, tubes, and devices: None. Lungs and pleura: Low volumes. Leftward rotation. Lordotic positioning. Streaky opacities in the lef t lung base and to a lesser extent the right medial lung base. Left costophrenic angle blunting. Cardiomediastinal silhouette: Stable. Other: No acute osseous or upper abdominal finding. IMPRESSION: Bibasilar atelectasis/consolidation. Possible small left pleural effusion. Reviewed, dictated and finalized at location K.
[2024-05-22 17:30] VITALS: PULSE 45; RESP 22; TEMP 36.9; O2SAT 99
[2024-05-22 18:38] LABS: Basophils Percent Auto 0.3 % (0.2-1.2); Eosinophils Percent Auto 0.2 % (0-4.4); Hematocrit 40.7 % (42.0-52.0); Hemoglobin 12.9 g/dL (14.0-18.0); Immature Granulocyte Absolute 0.07 K/mm3 (0.00-0.031); Immature Granulocyte Percent A 0.8 % (0-0.5); Lymphocytes Absolute Auto 1.06 K/mm3 (0.9-3.2); Lymphocytes Percent Auto 12.1 % (18.3-44.2); Mean Corpuscular HGB Conc 31.7 g/dl (32-36); Mean Corpuscular Volume 78.7 fl (80-100); Mean Platelet Volume 10.9 fl (7.4-10.4); Monocytes Absolute Auto 0.2 K/mm3 (0.1-0.6); Monocytes Percent Auto 2.1 % (2.6-8.5); Neutrophils Absolute Auto 7.4 K/mm3 (1.3-6.7); Neutrophils Percent Auto 84.5 % (45.5-73.1); Platelet Count Result 320 k/mm3 (150-375); Red Blood Count 5.17 M/mm3 (4.6-6.20); Red Cell Distribution Width 16.2 % (11.5-14.5); White Blood Count 8.8 K/mm3 (4.5-10.0)
--- NOTE | 2024-05-22 18:48 | PC.NURSE ---
Pt self caths at [facility], request to self cath for urine specimen
[2024-05-22 19:07] LABS: Alanine Aminotransferase 22 U/L (6-50); Albumin Level 4.7 g/dL (3.5-5.1); Alkaline Phosphatase 178 U/L (38-126); Anion Gap 16 mmol/L (4-12); Aspartate Amino Transferase 25 U/L (17-59); Bilirubin,Total 0.8 mg/dL (0.2-1.3); Blood Urea Nitrogen 16 mg/dL (9-20); Calcium 9.2 mg/dL (8.4-10.2); Carbon Dioxide 19 mmol/L (22-30); Chloride 104 mmol/L (98-107); Estimated Glomerular Filt Rate > 60; Glucose 137 mg/dL (65-110); Lipase 467 U/L (23-300); Potassium 3.8 mmol/L (3.4-5.0); Sodium 139 mmol/L (137-145)
[2024-05-22 19:08] LABS: Lactic Acid Reflex 2.6 mmol/L (0.7-2.0)
[2024-05-22] MEDS: SODIUM CHLORIDE 0.9% IV 1,000 ML 999 ML IV CONT ×2 (19:19→19:36)
[2024-05-22 19:25] VITALS: BP 134/121; PULSE 54; RESP 20; O2SAT 100
[2024-05-22] MEDS: MORPHINE SULFATE (*CRX) 4 MG/ML INJ IV PUSH (19:34)
[2024-05-22] MEDS: ONDANSETRON INJ 4 MG/2 ML VIAL IV PUSH (19:35)
--- NOTE | 2024-05-22 20:05 | ED.NAVMDI ---
HPI - Nausea/Vomiting/Diarrhea General Chief complaint: Nausea/Vomiting/Diarrhea Stated complaint: n/v Time Seen by Provider: 05/22/24 17:58 Source: patient and old records reviewed Mode of arrival: EMS Limitations: no limitations History of Present Illness HPI Narrative: Patient is a 38-year-old male, with PMH of paraplegia, bilateral BKA, suprapubic catheter access (straight caths himself), recurrent UTI with multidrug resistant E-coli, who presents the ED via EMS with report of abdominal pain, nausea /vomiting. patient reports history of recurrent abdominal pain and episodic nausea/vomiting. he has been seen in the ED for this several times. Reports abdominal pain began around noon today, present throughout his right-sided abdomen. He also reports nausea, vomiting, difficulty keeping down food or drink. Denies diarrhea, constipation, fevers. Related Data Home Medications Medication Instructions Recorded Confirmed omeprazole 20 mg tablet,delayed 20 mg PO DAILY 06/16/21 04/13/23 release ondansetron HCl 4 mg tablet 4 mg PO Q6H PRN Nausea And Vomiting 06/16/21 04/13/23 polyethylene glycol 3350 17 gram 17 g PO DAILY 06/16/21 04/13/23 oral powder packet potassium chloride 20 mEq 40 meq PO DAILY 06/16/21 04/13/23 tablet,extended release(part/cryst) sennosides 8.6 mg-docusate sodium 2 tablet PO DAILY 06/16/21 04/13/23 50 mg tablet (Senna Plus) acetaminophen 500 mg capsule 500 mg PO Q6H PRN pain or fever 05/02/22 04/13/23 amino acids-protein hydrolysate 15 1 ea PO BID 05/02/22 04/13/23 gram-100 kcal/30 mL oral liquid pkt (Pro-Stat Sugar Free) ascorbic acid (vitamin C) 500 mg 500 mg PO BID 05/02/22 04/13/23 tablet clonidine 0.3 mg/24 hr weekly 1 patch transdermal WEEKLY 05/02/22 04/13/23 transdermal patch clonidine HCl 0.1 mg tablet 0.2 mg PO BID PRN high blood 05/02/22 04/13/23 pressure cyclobenzaprine 5 mg tablet 5 mg PO TID PRN Muscle Spasm 05/02/22 04/13/23 gabapentin 100 mg capsule 100 mg PO TID 05/02/22 04/13/23 linaclotide 290 mcg capsule 1 cap PO DAILY 05/02/22 04/13/23 (Linzess) nifedipine 60 mg tablet,extended 60 mg PO DAILY 05/02/22 04/13/23 release 24 hr silver sulfadiazine 1 % topical 1 applic topical DAILY 05/02/22 04/13/23 cream (SSD) lactulose 10 gram/15 mL oral 30 ml PO DAILY 06/18/22 04/13/23 solution sodium phosphates 19 gram-7 118 ml RECTAL DAILY PRN 06/18/22 04/13/23 gram/118 mL enema (Fleet Enema) Constipation bisacodyl 10 mg rectal suppository 10 mg RECTAL EVERY OTHER DAY 11/03/22 04/13/23 (Dulcolax (bisacodyl)) bisacodyl 5 mg tablet,delayed 10 mg PO DAILY 11/03/22 04/13/23 release (Dulcolax (bisacodyl)) buspirone 7.5 mg tablet 7.5 mg PO BID 11/03/22 04/13/23 magnesium citrate 150 ml PO BID PRN Constipation 11/03/22 04/13/23 propranolol 40 mg tablet 40 mg PO BID 11/03/22 04/13/23 fentanyl 75 mcg/hr transdermal 75 patch transdermal Q4D 04/13/23 04/13/23 patch furosemide 20 mg tablet (Lasix) 20 mg PO BID 04/13/23 04/13/23 spironolactone 25 mg tablet 25 mg PO BID 04/13/23 04/13/23 (Aldactone) Allergies Allergy/AdvReac Type Severity Reaction Status Date / Time metoclopramide [From Reglan] Allergy Other Verified 05/22/24 17:46 Review of Systems Review of Systems: CONSTITUTIONAL: Denies fever, chills, or sweats. GASTROINTESTINAL: See HPI. GENITOURINARY: Denies dysuria or hematuria. All systems reviewed & are unremarkable except as noted in HPI and below PMFSH Past Medical History Medical History Abdominal pain Chest pain Chronic pain Discitis DVT prophylaxis Essential hypertension HTN (hypertension) Hypertensive urgency Osteomyelitis Paraplegia Pyelonephritis Sacral decubitus ulcer, stage III Surgical History Surgical History Hx of cholecystectomy S/P BKA (below knee amputation) bilateral Family History Family
[2024-05-22 20:17] LABS: Appearance Urine Turbid (Clear); Bacteria Urine 4+ /hpf; Bilirubin Urine Negative (Negative); Blood Urine Negative (Negative); Color Urine Yellow (Yellow); Glucose Urine UA Negative (Negative); Ketones Urine 2+ mg/dL (Negative); Leukocyte Esterase Ur 3+ LEU/UL (Negative); Need Manual Microscopic Reviewed; Nitrate Urine Positive (Negative); Protein Urine 1+ mg/dL (Negative); RBC Urine 0-2 /hpf (0-2); Specific Grav Ur 1.017 (1.001-1.035); Squamous Epithelial Cell Urine None Seen /hpf (Few); WBC Urine 51-100 /hpf (0-3); pH Urine 7.5 (5.0-9.0)
[2024-05-22 20:18] LABS: Add Urine Microscopic? YES
[2024-05-22 21:36] LABS: Reflex Lactic Acid Yes or No Add Lactic
[2024-05-22] MEDS: HYDROmorphone HCL INJ (*CRX) 1 MG/ML SYR 0.5 MG IV PUSH (21:39)
[2024-05-22 22:55] LABS: Lactic Acid 1.2 mmol/L (0.7-2.0)
[2024-05-22] MEDS: HYDROmorphone HCL INJ (*CRX) 1 MG/ML SYR IV PUSH (23:10)
[2024-05-22] MEDS: PANTOPRAZOLE SODIUM IV 40 MG VIAL IV PUSH (23:10)
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
[2024-05-23] VITALS (8 sets, daily range): BP systolic 123–187; BP diastolic 65–112; PULSE 57–104; RESP 16–35; TEMP 36.6–36.8; O2SAT 94–100; BMI 38.0
[2024-05-23] MEDS: MEROPENEM 1 GM/NS 100 ML 1 GM/100 ML BAG IVPB ×3 (02:30→18:50)
--- NOTE | 2024-05-23 02:51 | ADMGEN ---
This patient, Shawn Casey Jr., was admitted to Medical Room 255-01. Patient/family oriented to hospital policies and general routines including ID bracelet, bed and alarms, visiting hours, pain management, procedures, bathroom and other care routines, personal items, smoking policy, room service/diet, and visiting hours. Information on how to activate the Rapid Response Team has been discussed. Patient/Family are encouraged to report perceived risks to care and to ask questions if they do not understand what they are told or what they should do.
[2024-05-23] MEDS: DEXTROSE 5%/0.45% SOD CHL 1,000 ML 100 ML IV CONT ×2 (03:16→16:40)
[2024-05-23] MEDS: ENTER PT HEIGHT 1 EACH XX (03:21)
[2024-05-23] MEDS: HYDROmorphone HCL INJ (*CRX) 1 MG/ML SYR 0.5 MG IV PUSH ×6 (03:48→21:49)
[2024-05-23] MEDS: ONDANSETRON INJ 4 MG/2 ML VIAL IV PUSH ×3 (03:48→20:48)
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
[2024-05-23 08:47] LABS: Basophils Percent Auto 0.4 % (0.2-1.2); Eosinophils Absolute Auto 0.2 K/mm3 (0-0.3); Eosinophils Percent Auto 1.8 % (0-4.4); Hematocrit 35.7 % (42.0-52.0); Immature Granulocyte Absolute 0.07 K/mm3 (0.00-0.031); Immature Granulocyte Percent A 0.8 % (0-0.5); Lymphocytes Absolute Auto 2.16 K/mm3 (0.9-3.2); Lymphocytes Percent Auto 25.7 % (18.3-44.2); Mean Corpuscular HGB Conc 30.8 g/dl (32-36); Mean Corpuscular Hemoglobin 24.9 pg (26-34); Mean Corpuscular Volume 80.8 fl (80-100); Mean Platelet Volume 10.7 fl (7.4-10.4); Monocytes Absolute Auto 0.6 K/mm3 (0.1-0.6); Monocytes Percent Auto 7.6 % (2.6-8.5); Neutrophils Absolute Auto 5.3 K/mm3 (1.3-6.7); Neutrophils Percent Auto 63.7 % (45.5-73.1); Platelet Count Result 267 k/mm3 (150-375); Red Blood Count 4.42 M/mm3 (4.6-6.20); Red Cell Distribution Width 16.4 % (11.5-14.5); White Blood Count 8.4 K/mm3 (4.5-10.0)
[2024-05-23 08:57] LABS: Alanine Aminotransferase 19 U/L (6-50); Albumin Level 4.1 g/dL (3.5-5.1); Alkaline Phosphatase 120 U/L (38-126); Anion Gap 8 mmol/L (4-12); Aspartate Amino Transferase 21 U/L (17-59); Bilirubin,Total 0.6 mg/dL (0.2-1.3); Blood Urea Nitrogen 11 mg/dL (9-20); Calcium 8.3 mg/dL (8.4-10.2); Carbon Dioxide 27 mmol/L (22-30); Chloride 103 mmol/L (98-107); Estimated CRCL calculation 181 ml/min; Estimated Glomerular Filt Rate > 60; Glucose 110 mg/dL (65-110); Potassium 3.5 mmol/L (3.4-5.0); Sodium 138 mmol/L (137-145)
[2024-05-23] MEDS: PANTOPRAZOLE SODIUM IV 40 MG VIAL IV PUSH ×2 (09:56→20:46)
[2024-05-23] MEDS: LACTULOSE 20 GM/30 ML UDC PO (11:23)
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
[2024-05-23] MEDS: traMADol HCL (*CRX) 50 MG TABLET PO (16:39)
--- NOTE | 2024-05-23 18:40 | ECG_ITS ---
Test Date: 2024-05-23 18:58:08 Measurements Intervals [place] Rate: 52 P: 8 WI: 163 QRS: 26 QRSD: 104 T: 12 QT: 424 QTc: 397 Interpretive Statements SINUS BRADYCARDIA BORDERLINE ST-T WAVE ABNORMALITY- INFERIOR LEADS BASELINE ARTIFACT- II, III, AVR, AVL, AVF, V3-V6 BORDERLINE ECG Compared to ECG 04/30/2024 18:26:22 No significant changes Electronically Signed On 05-24-2024 07:23:02 CDT by Toi Greenberg D.O.
[2024-05-23 19:43] LABS: Troponin I < 0.012 ng/mL (0.000-0.034)
[2024-05-23] MEDS: HYDROmorphone HCL INJ (*CRX) 1 MG/ML SYR IV PUSH (20:16)
[2024-05-23 21:08] LABS: Influenza A QL RT-PCR Negative (Negative); Influenza B QL RT-PCR Negative (Negative); RSV RNA, RT-PCR Negative (Negative); SARS-CoV-2 RNA PCR Negative (Negative)
[2024-05-23] MEDS: HYDROmorphone HCL INJ (*CRX) 2 MG/ML VIAL IV PUSH (23:31)
[2024-05-23 23:38] LABS: Troponin I < 0.012 ng/mL (0.000-0.034)
[2024-05-24 02:30] LABS: Troponin I < 0.012 ng/mL (0.000-0.034)
[2024-05-24] MEDS: MEROPENEM 1 GM/NS 100 ML 1 GM/100 ML BAG IVPB ×3 (03:11→18:00)
[2024-05-24] MEDS: DEXTROSE 5%/0.45% SOD CHL 1,000 ML 100 ML IV CONT ×2 (03:11→13:38)
[2024-05-24] MEDS: HYDROmorphone HCL INJ (*CRX) 2 MG/ML VIAL IV PUSH ×4 (03:15→22:08)
[2024-05-24 05:23] VITALS: BP 173/69; PULSE 84; RESP 20; TEMP 36.7; O2SAT 100
[2024-05-24 06:54] LABS: Hematocrit 33.8 % (42.0-52.0); Hemoglobin 10.4 g/dL (14.0-18.0); Mean Corpuscular HGB Conc 30.8 g/dl (32-36); Mean Corpuscular Hemoglobin 24.8 pg (26-34); Mean Corpuscular Volume 80.5 fl (80-100); Mean Platelet Volume 10.9 fl (7.4-10.4); Platelet Count Result 243 k/mm3 (150-375); Red Cell Distribution Width 16.4 % (11.5-14.5); White Blood Count 6.7 K/mm3 (4.5-10.0)
[2024-05-24 07:05] LABS: Alanine Aminotransferase 17 U/L (6-50); Albumin Level 3.7 g/dL (3.5-5.1); Alkaline Phosphatase 112 U/L (38-126); Anion Gap 10 mmol/L (4-12); Aspartate Amino Transferase 20 U/L (17-59); Bilirubin,Total 0.6 mg/dL (0.2-1.3); Blood Urea Nitrogen 6 mg/dL (9-20); Calcium 8.2 mg/dL (8.4-10.2); Carbon Dioxide 23 mmol/L (22-30); Chloride 104 mmol/L (98-107); Estimated CRCL calculation 245 ml/min; Estimated Glomerular Filt Rate > 60; Glucose 108 mg/dL (65-110); Potassium 3.5 mmol/L (3.4-5.0); Sodium 137 mmol/L (137-145)
[2024-05-24 08:33] VITALS: O2SAT 98
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
--- NOTE | 2024-05-24 09:28 | WPDUROPN2 ---
Progress Note: A&P Assessment and Plan (1) Abnormal urinalysis: Code(s): R82.90 - Unspecified abnormal findings in urine Status: Acute Assessment and Plan: UA abnormal, preliminary urine culture with growth of Gram-negative rods. Continue empiric antibiotics while awaiting urine culture results (2) Atonic neurogenic bladder: Code(s): N31.2 - Flaccid neuropathic bladder, not elsewhere classified Status: Acute Assessment and Plan: Managed by [facility] urology. Continue intermittent catheterization which he is completing without difficulty. Planned for Botox to help limit leakage from stoma and fistula but did not follow up. It is important that he follows up with his established Urology practice at [facility]. Will need to inform nursing staff at his facility prior to return of need to facilitate care. Discussed need for outpatient follow-up with patient today. He states he did not previously have a cell phone but now does and will ensure he contacts to schedule follow-up (3) Urethral stricture: Code(s): N35.919 - Unspecified urethral stricture, male, unspecified site Status: Acute Assessment and Plan: Noted on cystoscopy 02/2024. Reconstruction offered, though he declined and wished to pursue Botox as above. Needs to follow up with his established urologist at [facility]. Subjective Subjective Date/Time Seen: 05/24/24 09:28 Interval history: Shawn is feeling well today. He offers no concerns. Continues to catheterize via umbilicus without any difficulty. Denies nausea, vomiting, fever, or chills. Review of Systems Review of Systems: All systems reviewed & are unremarkable except as noted in HPI and below Exam Narrative: General: Awake, alert, comfortable, no acute distress HEENT: Normocephalic, atraumatic, sclerae anicteric Respiratory: Normal respiratory effort, no accessory muscle use Abdomen: Nondistended, soft, nontender Skin: Normal coloration, warm and dry Neurologic: No focal neuro deficits noted Psychiatric: Appropriate mood and affect, judgment and insight intact Objective Data Vital Signs Vital Signs: Vital Signs - 24 hr 05/23/24 14:00 05/23/24 10:00 05/23/24 17:39 Temperature 98.2 F 98.2 F Pulse Rate 90 Respiratory Rate 16 Blood Pressure 128/67 Pulse Oximetry 99 Oxygen Delivery Room Air Oxygen Flow Rate 05/23/24 20:00 05/23/24 21:11 05/23/24 21:33 Temperature 97.9 F 97.8 F Pulse Rate 57 L 62 Respiratory Rate 35 H 32 H Blood Pressure 187/112 H 154/105 H Pulse Oximetry 100 100 100 Oxygen Delivery Nasal Cannula Oxygen Flow Rate 4 05/23/24 21:52 05/24/24 05:23 05/24/24 08:33 Temperature 98.1 F Pulse Rate 84 Respiratory Rate 22 H 20 Blood Pressure 173/69 H Pulse Oximetry 100 100 98 Oxygen Delivery Nasal Cannula Nasal Cannula Oxygen Flow Rate 4 4 Intake/Output Intake/Output: Intake & Output 05/21/24 05/22/24 05/23/24 05/24/24 23:59 23:59 23:59 23:59 Intake Total 1999 2600 1350 Output Total 1050 500 Balance 1999 1550 850 Meds/Results Medications: Active Medications Generic Name Dose Route Start Last Admin Trade Name Freq PRN Reason Stop Dose Admin Acetaminophen 1,000 mg 05/23/24 16:21 Acetaminophen 500 Mg Tablet PO Q6H PRN Mild Pain (1-3) or Fever Hydromorphone HCl 2 mg 05/24/24 01:39 05/24/24 03:15 Hydromorphone Hcl Inj (*Crx) 2 Mg/Ml Vial IV PUSH 2 mg Q4H PRN Administration Pain Rated 7-10 Meropenem 1 gm in 100 mls @ 200 mls/hr 05/23/24 11:00 05/24/24 03:41 IVPB Infused Q8H MARYANN Infusion Dextrose/Sodium Chloride 1,000 mls @ 100 mls/hr 05/22/24 23:50 05/24/24 03:11 Dextrose 5% Sodium Chloride 0.45% IV CONT 100 mls/hr .Q10H MARYANN Administration Lactulose 20 gm 05/23/24 10:50 05/23/24 11:23 Lactulose 20 Gm/30 Ml Udc PO 20 gm Q48HR MARYANN Administration Ondansetron HCl 4 mg 05/22/24 23:46 05/23/24 20:48
[2024-05-24] MEDS: PANTOPRAZOLE SODIUM IV 40 MG VIAL IV PUSH ×2 (09:54→20:46)
[2024-05-24 11:57] VITALS: O2SAT 98
--- NOTE | 2024-05-24 13:15 | PC.NURSE ---
Patient resting in bed. Complaints of pain. Patient is calm and cooperative. Patient is very knowledgeable about medications and their uses. No complaints of nausea at this time.
--- NOTE | 2024-05-24 13:28 | PM.PNGS ---
Progress Note: A&P Assessment and Plan (1) Poor intravenous access: Code(s): Z78.9 - Other specified health status Status: Acute Assessment and Plan: Urine cultures coming back but blood cultures still pending. Will consider Port placement tomorrow or Wednesday if no signs of bacteremia. (2) UTI (urinary tract infection): Qualifiers: Encounter type: initial encounter Indwelling urinary catheter type: cystostomy catheter Urinary tract infection type: catheter-associated UTI Qualified Code(s): T83.510A - Infection and inflammatory reaction due to cystostomy catheter, initial encounter; N39.0 - Urinary tract infection, site not specified Code(s): N39.0 - Urinary tract infection, site not specified Status: Acute (3) Atonic neurogenic bladder: Code(s): N31.2 - Flaccid neuropathic bladder, not elsewhere classified Status: Acute (4) Paraplegia: Code(s): G82.20 - Paraplegia, unspecified Status: Acute (5) Sacral decubitus ulcer, stage III: Code(s): L89.153 - Pressure ulcer of sacral region, stage 3 Status: Chronic Subjective Subjective Date/Time Seen: 05/24/24 13:28 Interval history: No significant changes. Occasional abdominal pain. No fever. Exam Resp: Effort & Inspection: normal respiratory effort Auscultation: clear to auscultation bilaterally GI: Inspection: non-distended Objective Data Vital Signs Vital Signs: Vital Signs - 24 hr 05/23/24 14:00 05/23/24 17:39 05/23/24 20:00 Temperature 36.8 C 36.8 C Pulse Rate 90 Respiratory Rate 16 Blood Pressure 128/67 Pulse Oximetry 99 100 Oxygen Delivery Nasal Cannula Oxygen Flow Rate 4 05/23/24 21:11 05/23/24 21:33 05/23/24 21:52 Temperature 36.6 C 36.6 C Pulse Rate 57 L 62 Respiratory Rate 35 H 32 H 22 H Blood Pressure 187/112 H 154/105 H Pulse Oximetry 100 100 100 Oxygen Delivery Nasal Cannula Oxygen Flow Rate 4 05/24/24 05:23 05/24/24 08:33 05/24/24 11:57 Temperature 36.7 C Pulse Rate 84 Respiratory Rate 20 Blood Pressure 173/69 H Pulse Oximetry 100 98 98 Oxygen Delivery Nasal Cannula Nasal Cannula Oxygen Flow Rate 4 2 Intake/Output Intake/Output: Intake & Output 05/21/24 05/22/24 05/23/24 05/24/24 23:59 23:59 23:59 23:59 Intake Total 1999 2600 1690 Output Total 1050 500 Balance 1999 1550 1190 Meds/Results Medications: Active Medications Generic Name Dose Route Start Last Admin Trade Name Freq PRN Reason Stop Dose Admin Acetaminophen 1,000 mg 05/23/24 16:21 Acetaminophen 500 Mg Tablet PO Q6H PRN Mild Pain (1-3) or Fever Hydromorphone HCl 2 mg 05/24/24 01:39 05/24/24 10:05 Hydromorphone Hcl Inj (*Crx) 2 Mg/Ml Vial IV PUSH 2 mg Q4H PRN Administration Pain Rated 7-10 Meropenem 1 gm in 100 mls @ 200 mls/hr 05/23/24 11:00 05/24/24 10:31 IVPB Infused Q8H MARYANN Infusion Dextrose/Sodium Chloride 1,000 mls @ 100 mls/hr 05/22/24 23:50 05/24/24 03:11 Dextrose 5% Sodium Chloride 0.45% IV CONT 100 mls/hr .Q10H MARYANN Administration Lactulose 20 gm 05/23/24 10:50 05/23/24 11:23 Lactulose 20 Gm/30 Ml Udc PO 20 gm Q48HR MARYANN Administration Ondansetron HCl 4 mg 05/22/24 23:46 05/23/24 20:48 Ondansetron Inj 4 Mg/2 Ml Vial IV PUSH 4 mg Q4H PRN Administration Nausea Pantoprazole Sodium 40 mg 05/23/24 09:00 05/24/24 09:54 Pantoprazole Sodium Iv 40 Mg Vial IV PUSH 40 mg Q12HR MARYANN Administration Tramadol HCl 50 mg 05/23/24 16:21 05/23/24 16:39 Tramadol Hcl (*Crx) 50 Mg Tablet PO 50 mg Q6H PRN Administration Pain Rated 4-6 Radiology Results: ITS Impressions Abdomen/Pelvis CT 05/22/24 20:02 IMPRESSION: No acute abdominopelvic process detected. MRCP 05/23/24 15:51 IMPRESSION: 1. Normal-appearing pancreas with normal caliber pancreatic duct and no evident pancreatic or peripancreatic increased fluid signal
[2024-05-24 14:00] VITALS: BP 121/59; PULSE 90; RESP 18; TEMP 36.5; O2SAT 100
--- NOTE | 2024-05-24 18:22 | WPDGIPROGNO ---
Progress Note: A&P Assessment and Plan (1) Abdominal pain: Code(s): R10.9 - Unspecified abdominal pain Status: Acute Assessment and Plan: chronic, had extensive work up in the past just completed MRCP and no major findings pain could be multifactorial (paraplegia with dysmotility, frequent uti, etc), no plan to repeat scopes or more imaging medical management will follow as needed (2) Paraplegia: Code(s): G82.20 - Paraplegia, unspecified Status: Acute (3) Atonic neurogenic bladder: Code(s): N31.2 - Flaccid neuropathic bladder, not elsewhere classified Status: Acute Assessment and Plan: by urology (4) Abnormal urinalysis: Code(s): R82.90 - Unspecified abnormal findings in urine Status: Acute (5) UTI (urinary tract infection): Qualifiers: Encounter type: initial encounter Indwelling urinary catheter type: cystostomy catheter Urinary tract infection type: catheter-associated UTI Qualified Code(s): T83.510A - Infection and inflammatory reaction due to cystostomy catheter, initial encounter; N39.0 - Urinary tract infection, site not specified Code(s): N39.0 - Urinary tract infection, site not specified Status: Acute (6) Nausea: Code(s): R11.0 - Nausea Status: Acute Subjective Date/time seen: 05/24/24 18:22 Interval history: he is eating more but still poor appetite, nausea better with zofran similar abdominal discomfort Review of Systems Review of Systems: All systems reviewed & are unremarkable except as noted in HPI and below Exam Const: General: cooperative, no acute distress and well developed Orientation/consciousness: oriented to person, oriented to place, oriented to time and patient oriented x3 HENMT: Head: normal to inspection, normocephalic and atraumatic Mouth: Yes moist mucous membranes Eyes: General: appearance normal, both eyes and all related structures Conjunctivae: conjunctivae normal Neck: Neck: normal visual inspection Chest: Chest palpation & inspection: normal inspection of the chest Resp: Effort & Inspection: normal respiratory effort and able to speak in complete sentences Auscultation: clear to auscultation bilaterally Cardio: Rate: regular rate Rhythm: regular rhythm GI: Inspection: normal to inspection GI Palp: Yes Soft to palpation Auscultation: normal bowel sounds Rectal Exam: deferred : Other: suprapubic catheter Urinary Catheter: Urinary Catheter: other ( self caths) Skin: General skin exam: normal color and no rashes or lesions noted Neuro: General: oriented to person, oriented to place, oriented to time and patient oriented x3 Speech: normal speech Sensory Exam: No normal sensation Other: paraplegic from the chest down Extrem: General: abnormal to inspection Other: bilateral BKA Psych: Appearance: grossly normal and well kempt Affect: normal affect Objective Data Vital Signs Vital Signs: Vital Signs - 24 hr 05/23/24 20:00 05/23/24 21:11 05/23/24 21:33 Temperature 97.9 F 97.8 F Pulse Rate 57 L 62 Respiratory Rate 35 H 32 H Blood Pressure 187/112 H 154/105 H Pulse Oximetry 100 100 100 Oxygen Delivery Nasal Cannula Oxygen Flow Rate 4 05/23/24 21:52 05/24/24 05:23 05/24/24 08:33 Temperature 98.1 F Pulse Rate 84 Respiratory Rate 22 H 20 Blood Pressure 173/69 H Pulse Oximetry 100 100 98 Oxygen Delivery Nasal Cannula Nasal Cannula Oxygen Flow Rate 4 4 05/24/24 11:57 05/24/24 14:00 Temperature 97.7 F Pulse Rate 90 Respiratory Rate 18 Blood Pressure 121/59 L Pulse Oximetry 98 100 Oxygen Delivery Nasal Cannula Oxygen Flow Rate 2 Intake/Output Intake/Output: Intake & Output 05/21/24 05/22/24 05/23/24 05/24/24 23:59 23:59 23:59 23:59 Intake Total 1999 2600 2690 Output Total 1050 500 Balance 1999 8400 2190 Meds/Results Medications: Active Medications Generic Name Dos
[2024-05-24 20:00] VITALS: O2SAT 100
[2024-05-24 22:10] VITALS: BP 123/67; PULSE 72; RESP 20; TEMP 36.1; O2SAT 100
[2024-05-25] MEDS: DEXTROSE 5%/0.45% SOD CHL 1,000 ML 100 ML IV CONT ×3 (00:17→20:25)
[2024-05-25] MEDS: HYDROmorphone HCL INJ (*CRX) 2 MG/ML VIAL IV PUSH ×5 (01:48→20:20)
[2024-05-25] MEDS: ONDANSETRON INJ 4 MG/2 ML VIAL IV PUSH ×5 (01:48→20:20)
[2024-05-25] MEDS: MEROPENEM 1 GM/NS 100 ML 1 GM/100 ML BAG IVPB ×2 (02:23→10:59)
[2024-05-25 05:36] LABS: Hematocrit 34.4 % (42.0-52.0); Hemoglobin 10.2 g/dL (14.0-18.0); Mean Corpuscular HGB Conc 29.7 g/dl (32-36); Mean Corpuscular Hemoglobin 24.2 pg (26-34); Mean Corpuscular Volume 81.5 fl (80-100); Mean Platelet Volume 10.6 fl (7.4-10.4); Platelet Count Result 230 k/mm3 (150-375); Red Blood Count 4.22 M/mm3 (4.6-6.20); Red Cell Distribution Width 16.4 % (11.5-14.5)
[2024-05-25 05:49] LABS: Alanine Aminotransferase 18 U/L (6-50); Albumin Level 3.6 g/dL (3.5-5.1); Alkaline Phosphatase 108 U/L (38-126); Anion Gap 10 mmol/L (4-12); Aspartate Amino Transferase 21 U/L (17-59); Bilirubin,Total 0.5 mg/dL (0.2-1.3); Blood Urea Nitrogen 5 mg/dL (9-20); Carbon Dioxide 22 mmol/L (22-30); Chloride 104 mmol/L (98-107); Estimated CRCL calculation 208 ml/min; Estimated Glomerular Filt Rate > 60; Glucose 101 mg/dL (65-110); Potassium 3.5 mmol/L (3.4-5.0); Sodium 136 mmol/L (137-145)
[2024-05-25 06:00] VITALS: BP 139/84; PULSE 75; RESP 20; TEMP 36.1; O2SAT 100
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
[2024-05-25 08:47] VITALS: RESP 20; O2SAT 100
[2024-05-25] MEDS: PANTOPRAZOLE SODIUM IV 40 MG VIAL IV PUSH ×2 (08:47→20:20)
[2024-05-25] MEDS: LACTULOSE 20 GM/30 ML UDC PO (09:01)
--- NOTE | 2024-05-25 10:00 | PM.PNGS ---
Progress Note: A&P Assessment and Plan (1) Poor intravenous access: Code(s): Z78.9 - Other specified health status Status: Acute Assessment and Plan: Preliminary blood cultures show no growth to date. Will plan to proceed with port placement tomorrow if still no signs of bacteremia. (2) UTI (urinary tract infection): Qualifiers: Encounter type: initial encounter Indwelling urinary catheter type: cystostomy catheter Urinary tract infection type: catheter-associated UTI Qualified Code(s): T83.510A - Infection and inflammatory reaction due to cystostomy catheter, initial encounter; N39.0 - Urinary tract infection, site not specified Code(s): N39.0 - Urinary tract infection, site not specified Status: Acute (3) Atonic neurogenic bladder: Code(s): N31.2 - Flaccid neuropathic bladder, not elsewhere classified Status: Acute (4) Paraplegia: Code(s): G82.20 - Paraplegia, unspecified Status: Acute (5) Sacral decubitus ulcer, stage III: Code(s): L89.153 - Pressure ulcer of sacral region, stage 3 Status: Chronic Plan I have discussed the patient's case and plan of care with Dr. Lazcano. Subjective Subjective Date/Time Seen: 05/25/24 10:00 Interval history: No acute changes. No fever. Exam Const: General: comfortable and no acute distress Resp: Effort & Inspection: normal respiratory effort Auscultation: clear to auscultation bilaterally Objective Data Vital Signs Vital Signs: Vital Signs - 24 hr 05/24/24 11:57 05/24/24 14:00 05/24/24 20:00 Temperature 97.7 F Pulse Rate 90 Respiratory Rate 18 Blood Pressure 121/59 L Pulse Oximetry 98 100 100 Oxygen Delivery Nasal Cannula Nasal Cannula Oxygen Flow Rate 2 2 05/24/24 22:10 05/25/24 06:00 05/25/24 08:47 Temperature 97.0 F L 97.0 F L Pulse Rate 72 75 Respiratory Rate 20 20 20 Blood Pressure 123/67 139/84 Pulse Oximetry 100 100 100 Oxygen Delivery Nasal Cannula Oxygen Flow Rate 2 Intake/Output Intake/Output: Intake & Output 05/22/24 05/23/24 05/24/24 05/25/24 23:59 23:59 23:59 23:59 Intake Total 1999 2600 3790 100 Output Total 1931 243 5583 Balance 2000 1550 2890 -1100 Meds/Results Medications: Active Medications Generic Name Dose Route Start Last Admin Trade Name Freq PRN Reason Stop Dose Admin Acetaminophen 1,000 mg 05/23/24 16:21 Acetaminophen 500 Mg Tablet PO Q6H PRN Mild Pain (1-3) or Fever Hydromorphone HCl 2 mg 05/24/24 01:39 05/25/24 05:51 Hydromorphone Hcl Inj (*Crx) 2 Mg/Ml Vial IV PUSH 2 mg Q4H PRN Administration Pain Rated 7-10 Meropenem 1 gm in 100 mls @ 200 mls/hr 05/23/24 11:00 05/25/24 02:53 IVPB Infused Q8H MARYANN Infusion Dextrose/Sodium Chloride 1,000 mls @ 100 mls/hr 05/22/24 23:50 05/25/24 00:17 Dextrose 5% Sodium Chloride 0.45% IV CONT 100 mls/hr .Q10H MARYANN Administration Lactulose 20 gm 05/23/24 10:50 05/25/24 09:01 Lactulose 20 Gm/30 Ml Udc PO 20 gm Q48HR MARYANN Administration Ondansetron HCl 4 mg 05/22/24 23:46 05/25/24 05:51 Ondansetron Inj 4 Mg/2 Ml Vial IV PUSH 4 mg Q4H PRN Administration Nausea Pantoprazole Sodium 40 mg 05/23/24 09:00 05/25/24 08:47 Pantoprazole Sodium Iv 40 Mg Vial IV PUSH 40 mg Q12HR MARYANN Administration Tramadol HCl 50 mg 05/23/24 16:21 05/23/24 16:39 Tramadol Hcl (*Crx) 50 Mg Tablet PO 50 mg Q6H PRN Administration Pain Rated 4-6 Radiology Results: ITS Impressions Abdomen/Pelvis CT 05/22/24 20:02 IMPRESSION: No acute abdominopelvic process detected. MRCP 05/23/24 15:51 IMPRESSION: 1. Normal-appearing pancreas with normal caliber pancreatic duct and no evident pancreatic or peripancreatic increased fluid signal to suggest acute pancreatitis. 2. Status post cholecystectomy with no intra or extrahepatic biliary ductal dilation. Chest X-Ray 05/23/24
[2024-05-25 14:40] VITALS: BP 141/74; PULSE 115; RESP 16; TEMP 36.6; O2SAT 98
[2024-05-25 15:53] VITALS: BMI 76.0
[2024-05-25 20:00] VITALS: O2SAT 100
[2024-05-25 20:08] VITALS: BP 124/73; PULSE 91; RESP 20; TEMP 37.5; O2SAT 100
[2024-05-25] MEDS: SULFAMETHOXAZOLE/TRIMETHOPRIM 800/160 MG DS TABLET 1 TAB PO (20:20)
[2024-05-26] VITALS (17 sets, daily range): BP systolic 137–173; BP diastolic 72–102; PULSE 58–93; RESP 12–22; TEMP 35.9–37.2; O2SAT 95–100
[2024-05-26] MEDS: HYDROmorphone HCL INJ (*CRX) 2 MG/ML VIAL IV PUSH ×6 (00:53→23:47)
[2024-05-26] MEDS: ONDANSETRON INJ 4 MG/2 ML VIAL IV PUSH ×5 (00:54→19:55)
[2024-05-26] MEDS: DEXTROSE 5%/0.45% SOD CHL 1,000 ML 100 ML IV CONT ×2 (05:33→20:12)
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
[2024-05-26 07:00] LABS: Hematocrit 34.1 % (42.0-52.0); Hemoglobin 10.2 g/dL (14.0-18.0); Mean Corpuscular HGB Conc 29.9 g/dl (32-36); Mean Corpuscular Hemoglobin 24.6 pg (26-34); Mean Corpuscular Volume 82.2 fl (80-100); Mean Platelet Volume 10.8 fl (7.4-10.4); Platelet Count Result 226 k/mm3 (150-375); Red Blood Count 4.15 M/mm3 (4.6-6.20); Red Cell Distribution Width 16.5 % (11.5-14.5); White Blood Count 6.9 K/mm3 (4.5-10.0)
[2024-05-26 07:10] LABS: Alanine Aminotransferase 22 U/L (6-50); Albumin Level 3.8 g/dL (3.5-5.1); Alkaline Phosphatase 100 U/L (38-126); Anion Gap 9 mmol/L (4-12); Aspartate Amino Transferase 24 U/L (17-59); Bilirubin,Total 0.5 mg/dL (0.2-1.3); Blood Urea Nitrogen 5 mg/dL (9-20); Calcium 8.3 mg/dL (8.4-10.2); Carbon Dioxide 27 mmol/L (22-30); Chloride 103 mmol/L (98-107); Estimated Glomerular Filt Rate > 60; Glucose 96 mg/dL (65-110); Sodium 139 mmol/L (137-145)
[2024-05-26] MEDS: SULFAMETHOXAZOLE/TRIMETHOPRIM 800/160 MG DS TABLET 1 TAB PO ×2 (08:56→20:13)
[2024-05-26] MEDS: PANTOPRAZOLE SODIUM IV 40 MG VIAL IV PUSH ×2 (08:56→20:13)
--- NOTE | 2024-05-26 12:53 | WPDHPUPDATE1 ---
History and Physical Update Update Date/Time: 05/26/24 12:53 History and Physical has been reviewed, including an updated exam of the patient. There are NO changes in the patient's condition. Risks, benefits, and alternatives have been discussed and questions answered. Patient agrees to proceed with procedure.
--- NOTE | 2024-05-26 13:10 | WPDANESEPPF ---
Anes - Initial Pre Proc Eval Procedure: Operation Date: 05/26/24 13:30 Proposed Procedures p Insertion Kavita Cath - Ralph Lazcano DO Date/Time: 05/26/24 13:10 Surgeon: Ashley Kaplan MD Pre Op Diagnosis: R sided abd pain, Elevated lipase, UTI, Hx ESBL Patient Data Age: 38 Gender: M Height: 1.35 m Weight: 137.8 kg Last Vital Signs Temp 37.1 C 05/26/24 12:21 Pulse 62 05/26/24 12:21 Resp 18 05/26/24 12:21 BP 143/78 H 05/26/24 12:21 Pulse Ox 100 05/26/24 12:21 O2 Del Method Room Air 05/26/24 12:21 O2 Flow Rate 2 05/26/24 08:56 Allergies Allergy/AdvReac Type Severity Reaction Status Date / Time metoclopramide [From Reglan] Allergy Other Verified 05/26/24 12:12 Home Medications Medication Instructions Recorded Confirmed Type ondansetron HCl 4 mg tablet 4 mg PO Q6H PRN Nausea And Vomiting 06/16/21 05/23/24 History potassium chloride 20 mEq 40 meq PO DAILY 06/16/21 05/23/24 History tablet,extended release(part/cryst) acetaminophen 500 mg capsule 500 mg PO Q6H PRN pain or fever 05/02/22 05/23/24 History clonidine 0.3 mg/24 hr weekly 1 patch transdermal WEEKLY 05/02/22 05/23/24 History transdermal patch clonidine HCl 0.1 mg tablet 0.2 mg PO BID PRN high blood 05/02/22 05/23/24 History pressure cyclobenzaprine 5 mg tablet 5 mg PO TID PRN Muscle Spasm 05/02/22 05/23/24 History gabapentin 100 mg capsule 100 mg PO TID 05/02/22 05/23/24 History linaclotide 290 mcg capsule 1 cap PO DAILY 05/02/22 05/23/24 History (Linzess) nifedipine 60 mg tablet,extended 60 mg PO DAILY 05/02/22 05/23/24 History release 24 hr silver sulfadiazine 1 % topical 1 applic topical DAILY 05/02/22 05/23/24 History cream (SSD) oxycodone-acetaminophen 10 mg-325 1 tablet PO Q4H PRN Pain (Scale 05/08/22 05/23/24 Rx mg tablet Score 4-6) #10 tabs sodium phosphates 19 gram-7 118 ml RECTAL DAILY PRN 06/18/22 05/23/24 History gram/118 mL enema (Fleet Enema) Constipation bisacodyl 10 mg rectal suppository 10 mg RECTAL EVERY OTHER DAY 11/03/22 05/23/24 History (Dulcolax (bisacodyl)) bisacodyl 5 mg tablet,delayed 10 mg PO DAILY 11/03/22 05/23/24 History release (Dulcolax (bisacodyl)) buspirone 7.5 mg tablet 7.5 mg PO BID 11/03/22 05/23/24 History propranolol 40 mg tablet 40 mg PO BID 11/03/22 05/23/24 History fentanyl 75 mcg/hr transdermal 75 patch transdermal Q4D 04/13/23 05/23/24 History patch furosemide 20 mg tablet (Lasix) 20 mg PO BID 04/13/23 05/23/24 History spironolactone 25 mg tablet 25 mg PO BID 04/13/23 05/23/24 History (Aldactone) midodrine 5 mg tablet 5 mg PO BID PRN HYPOTENSION, 04/15/23 05/23/24 Rx SYSTOLIC <90 #30 tabs dicyclomine 10 mg capsule 10 mg PO QID PRN abdominal pain 05/06/24 05/23/24 Rx #20 caps naloxone 4 mg/actuation nasal spray 1 spray intranasal Q2-3M PRN 05/23/24 05/23/24 History Opiate Reversal tramadol 50 mg tablet 50 mg PO Q8H PRN Mild Pain (Scale 05/23/24 05/23/24 History Score 1-4) triamcinolone acetonide 0.025 % 1 applic topical DAILY 05/23/24 05/23/24 History topical cream Laboratory Tests 05/26/24 06:55 WBC 6.9 K/mm3 (4.5-10.0) RBC 4.15 L M/mm3 (4.6-6.20) Hgb 10.2 L g/dL (14.0-18.0) Hct 34.1 L % (42.0-52.0) MCV 82.2 fl (80-100) MCH 24.6 L pg (26-34) MCHC 29.9 L g/dl (32-36) RDW 16.5 H % (11.5-14.5) Plt Count 226 k/mm3 (150-375) MPV 10.8 H fl (7.4-10.4) Sodium 139 mmol/L (137-145) Potassium 4.0 mmol/L (3.4-5.0) Chloride 103 mmol/L (98-107) Carbon Dioxide 27 mmol/L (22-30) Anion Gap 9 mmol/L (4-12) BUN 5 L mg/dL (9-20) Creatinine 0.70 mg/dL (0.7-1.3) Estim Creat Clear Calc Not Reportable Estimated GFR > 60 (59 - ) Glucose 96 mg/dL (65-110) Calcium 8.3 L mg/dL (8.4-10.2) Total Bilirubin 0.5 mg/dL (0.2-1.3) AST 24 U/L (17-59) ALT 22 U/L (6-50) Alkaline Phosphatase 100
[2024-05-26] MEDS: ceFAZolin SODIUM 1 GM VIAL 3 GM IV PUSH (13:41)
[2024-05-26] MEDS: LIDO 1%/EPINEPHRINE 1:100,000 50 ML VIAL 30 ML INFILTRATE (13:49)
[2024-05-26] MEDS: HEPARIN SODIUM, PORCINE 10,000 UNITS/10 ML VIAL 10000 UNITS IV PUSH (13:52)
[2024-05-26] MEDS: HEPARIN SODIUM 5,000 UNITS/ML VIAL 5000 UNITS IRRIGATION (13:53)
[2024-05-26] MEDS: LACTATED RINGERS 1,000 ML 30 ML IV CONT (14:13)
--- NOTE | 2024-05-26 14:31 | W.PM.PROC2 ---
Procedure Note - Detailed Date of Procedure 05/26/24 Pre-op Diagnosis Poor IV access, complicated UTI, paraplegia Post-op Diagnosis Same Procedure Performed Right Internal Jugular tunneled Port-a-Cath placement using ultrasound and fluoroscopic guidance Surgeon Ralph Lazcano, DO Anesthesia MAC and Local (0.5% bupivicaine with epinephrine) Indications this is a 38-year-old man who presented to the emergency department with abdominal pain and signs of a recurrent urinary tract infection. The patient has had multiple ER visits and hospitalizations related to complicated UTI's and decubitus ulcers. He has very poor peripheral IV access. Due to his frequent hospitalizations and need for IV access for blood draws and IV infusions, I was asked to place a Port-A-Cath. The patient does have a current UTI which has been treated and blood cultures so far have been negative. Discussions were made with patient about treatment options and decision was made to proceed with Port-A-Cath placement. Findings SonoSite ultrasound was used to identify the right internal jugular vein. This was visualized as a compressible vessel just lateral to the carotid artery. Images were obtained to verify placement. An 18 gauge introducer needle was advanced under ultrasound guidance directly into the lumen of the right internal jugular vein. Dark nonpulsatile blood was aspirated. Fluoroscopy was then used to guide advancement of the guidewire followed by the dilator and sheath. The final fluoroscopic images demonstrated the catheter in proper position and the port sitting on the right chest without any kinks along its path. Description of Procedure Procedure as well as risks, benefits, and alternatives were discussed with patient. Written consent was obtained and placed in chart prior to procedure. Patient was brought back to surgical suite. Was placed supine on operating table. Time-out was done confirm patient procedure. IV sedation was then administered by the Anesthesia Department. The chest and neck area was prepped and draped in sterile fashion using chlorhexidine prep. Patient was placed in Trendelenburg position. SonoSite ultrasound was used to identify the right internal jugular vein. It was visualized as a compressible vessel just lateral to the carotid artery. 1% lidocaine with epinephrine was infiltrated directly over the vessel under ultrasound guidance. An 18 gauge introducer needle was then advanced under ultrasound guidance directly into the right internal jugular vein. Dark nonpulsatile blood was aspirated. A 0.035 in guidewire was then advanced through the needle under fluoroscopic guidance. The guidewire was visualized advancing all the way down into the superior vena cava. 1% lidocaine with epinephrine was then infiltrated on the right anterior chest and along the tract up to the guidewire insertion site. A 3 cm incision was made with a 15 blade scalpel, and electrocautery was then used for dissection down through the subcutaneous tissue to the pectoral fascia. A pocket was created just inferior to the incision using blunt dissection. A small fidel incision was then also made at the insertion site at the neck. The tunneler was then advanced from the chest incision up to the neck incision and the catheter tubing was brought up through this tract. The dilator and sheath were then advanced over the guidewire under fluoroscopic visualization. The dilator and guidewire were then removed leaving the sheath in place. The catheter tubing was then advanced through the sheath under fluoroscopic guidance. The sheath was unsnapped and carefully peeled away. The catheter tubing was released underneath the neck incision. Fluoroscopy was used to confirm proper placement of the catheter tubing and no kinks along its path. The catheter was then cut to proper length and secured to the port. The port was then accessed with a Whipple needle and aspirated and flushed wit
--- NOTE | 2024-05-26 15:30 | PC.NURSE ---
Returned from OR via bed.
[2024-05-27] MEDS: ONDANSETRON INJ 4 MG/2 ML VIAL IV PUSH ×3 (04:12→15:55)
[2024-05-27] MEDS: HYDROmorphone HCL INJ (*CRX) 2 MG/ML VIAL IV PUSH ×3 (04:12→15:56)
[2024-05-27 05:05] VITALS: BP 136/74; PULSE 71; RESP 20; TEMP 36.7; O2SAT 93
[2024-05-27] MEDS: DEXTROSE 5%/0.45% SOD CHL 1,000 ML 100 ML IV CONT (06:07)
[2024-05-27 06:19] LABS: Hematocrit 34.6 % (42.0-52.0); Hemoglobin 10.6 g/dL (14.0-18.0); Mean Corpuscular HGB Conc 30.6 g/dl (32-36); Mean Corpuscular Hemoglobin 24.8 pg (26-34); Mean Corpuscular Volume 80.8 fl (80-100); Mean Platelet Volume 11.4 fl (7.4-10.4); Platelet Count Result 248 k/mm3 (150-375); Red Blood Count 4.28 M/mm3 (4.6-6.20); Red Cell Distribution Width 16.1 % (11.5-14.5); White Blood Count 6.4 K/mm3 (4.5-10.0)
[2024-05-27 06:33] LABS: Alanine Aminotransferase 34 U/L (6-50); Albumin Level 3.8 g/dL (3.5-5.1); Alkaline Phosphatase 110 U/L (38-126); Anion Gap 10 mmol/L (4-12); Aspartate Amino Transferase 30 U/L (17-59); Bilirubin,Total 0.3 mg/dL (0.2-1.3); Blood Urea Nitrogen 6 mg/dL (9-20); Calcium 8.3 mg/dL (8.4-10.2); Carbon Dioxide 26 mmol/L (22-30); Chloride 101 mmol/L (98-107); Estimated Glomerular Filt Rate > 60; Glucose 111 mg/dL (65-110); Potassium 3.7 mmol/L (3.4-5.0); Sodium 137 mmol/L (137-145)
[2024-05-27 08:38] VITALS: O2SAT 100
[2024-05-27] MEDS: SULFAMETHOXAZOLE/TRIMETHOPRIM 800/160 MG DS TABLET 1 TAB PO (08:55)
[2024-05-27] MEDS: PANTOPRAZOLE SODIUM IV 40 MG VIAL IV PUSH (08:55)
[2024-05-27] MEDS: LACTULOSE 20 GM/30 ML UDC PO (08:55)
[2024-05-27 09:00] VITALS: O2SAT 98
[2024-05-27 09:28] VITALS: O2SAT 98
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
[2024-05-27 14:00] VITALS: PULSE 71; RESP 20; TEMP 37.2; O2SAT 100
== END 2024-05-27 17:30 | DRG 673 ==
LOC: ANHED 23:46 → ANH3MEDSUR 05-23 01:22 → ANH2MED 05-23 01:31
PROVIDERS: General Practice; Surgery; Admitting Provider Internal Medicine; Emergency Provider Physician Assistant; PCP Internal Medicine; Visit Provider Nurse Practitioner
PROC: 0JH60WZ Insertion of Totally Implantable Vascular Access Device into Chest Subcutaneous Tissue and Fascia, Open Approach (ICD-10-PCS; principal; 2024-05-26 13:30)
DX: T83.510A Infection and inflammatory reaction due to cystostomy catheter, initial encounter (principal); L89.153 Pressure ulcer of sacral region, stage 3; N39.0 Urinary tract infection, site not specified; G82.20 Paraplegia, unspecified; I10 Essential (primary) hypertension; D63.8 Anemia in other chronic diseases classified elsewhere; R11.2 Nausea with vomiting, unspecified; T14.8XXS Other injury of unspecified body region, sequela; V89.2XXS Person injured in unspecified motor-vehicle accident, traffic, sequela; Z20.822 Contact with and (suspected) exposure to COVID-19; Z89.512 Acquired absence of left leg below knee; Z89.511 Acquired absence of right leg below knee; Z93.50 Unspecified cystostomy status; Z87.891 Personal history of nicotine dependence
CPT/HCPCS: 36415; 71045; 74177; 74183; 76376; 77001; 80053; 81001; 83605; 83690; 84484; 85025; 85027; 87040; 87086; 87186; 87637; 93005; 96361; 96374; 96375; 96376; 99199; 99285; A9270; A9577; C1788; G0378; J0690; J1170; J1644; J2185; J2250; J2270; J2405; J2470; J3010; J7030; J7120; Q9967

== ENCOUNTER 2024-05-27 23:43 | Emergency (ER) | payer MEDICARE, MEDICAID, SELFPAY ==
--- NOTE | ~2024-05-27 | CT_ITS ---
EXAMINATION: CT abdomen pelvis w con DATE: 05/28/2024 01:24 INDICATION: Right upper quadrant abdominal pain TECHNIQUE: Computed tomography (CT) of the abdomen and pelvis was performed with 100 CC Omnipaque 350 intravenous contrast. Automated exposure control and iterative reconstruction technique were employe d. Exam dose: 1572.75 mGy-cm total exam DLP. COMPARISON: 05/23/2024 MRI MRCP 05/22/2024 CT abdomen FINDINGS: Interval prominent disc atelectasis at both lower lobes since 05/22/2024. Heart size is within normal limits. No pericardial or pleural effusion. Bilateral gynecomastia. Status post cholecystectomy. The liver, spleen, pancreas, adrenal glands are unremarkable. Mild bilateral renal scarring. Stable bilateral renal cysts. No urinary tract calculus or hydroureter onephrosis. There is irregularity and thickening of the urinary bladder wall. Cystitis is not excluded. The tract of a prior suprapubic urinary bladder catheter is noted. Normal caliber of the abdominal aorta. There is a filter in the inferior vena cava situated below the renal veins. No intraperitoneal or retroperitoneal or pelvic mass lesion or adenopathy or ascites is noted. There are radiopaque sutures the cecum, probable appendectomy. Prominent amount of fecal material thr oughout the colon. No bowel obstruction or intraperitoneal free air is evident. Chronic lower lumbar and sacral, bilateral iliac and hip deformities. Intramedullary hany left femur. Sacral and left ischial decubitus ulcers. IMPRESSION: Prominent discoid atelectasis in both lower lobes Bilateral gynecomastia Status post cholecystectomy Bilateral renal cysts Irregularity and thickening of the urinary bladder wall; cystitis is not excluded differential diagno sis includes neurogenic bladder. Prominent atrophic material in the colon; no bowel obstruction Sacral and left ischial decubitus ulcers Reviewed, dictated and finalized at [facility]. Reviewed, dictated and finalized at [facility]. IMPRESSION: Prominent discoid atelectasis in both lower lobes Bilateral gynecomastia Status post cholecystectomy Bilateral renal cysts Irregularity and thickening of the urinary bladder wall; cystitis is not exclud ed differential diagnosis includes neurogenic bladder. Prominent atrophic material in the colon; no bowel obstruction Sacral and left ischial decubitus ulcers
[2024-05-27 23:43] VITALS: BP 142/112; PULSE 57; RESP 28; TEMP 36.6; O2SAT 100
[2024-05-27 23:48] VITALS: BP 141/112; PULSE 61; RESP 28; O2SAT 100
--- NOTE | 2024-05-27 23:48 | ECG_ITS ---
Test Date: 2024-05-27 23:56:40 Measurements Intervals [place] Rate: 55 P: 17 MS: 153 QRS: 55 QRSD: 109 T: 45 QT: 435 QTc: 417 Interpretive Statements SINUS BRADYCARDIA BASELINE ARTIFACT- I, II, III, AVR, AVL, AVF, V1-V6 BORDERLINE ECG Compared to ECG 05/23/2024 18:58:08 No significant changes Electronically Signed On 05-28-2024 07:37:12 CDT by Toi Greenberg D.O.
[2024-05-28 00:01] VITALS: BP 155/91; PULSE 76; RESP 40; O2SAT 99
[2024-05-28 00:07] VITALS: BP 155/91; PULSE 55; PULSE 61; RESP 30; O2SAT 19; O2SAT 97
--- NOTE | 2024-05-28 00:10 | PC.NURSE ---
this rn removed clonadine patch and fentanyl patch per edp dr. cruz
[2024-05-28 00:17] LABS: Basophils Percent Auto 0.2 % (0.2-1.2); Eosinophils Absolute Auto 0.1 K/mm3 (0-0.3); Eosinophils Percent Auto 0.5 % (0-4.4); Hematocrit 37.7 % (42.0-52.0); Hemoglobin 11.9 g/dL (14.0-18.0); Immature Granulocyte Absolute 0.08 K/mm3 (0.00-0.031); Immature Granulocyte Percent A 0.7 % (0-0.5); Lymphocytes Absolute Auto 1.79 K/mm3 (0.9-3.2); Lymphocytes Percent Auto 15.7 % (18.3-44.2); Mean Corpuscular HGB Conc 31.6 g/dl (32-36); Mean Corpuscular Hemoglobin 25.1 pg (26-34); Mean Corpuscular Volume 79.5 fl (80-100); Mean Platelet Volume 11.7 fl (7.4-10.4); Monocytes Absolute Auto 0.5 K/mm3 (0.1-0.6); Monocytes Percent Auto 4.7 % (2.6-8.5); Neutrophils Absolute Auto 8.9 K/mm3 (1.3-6.7); Neutrophils Percent Auto 78.2 % (45.5-73.1); Platelet Count Result 272 k/mm3 (150-375); Red Blood Count 4.74 M/mm3 (4.6-6.20); Red Cell Distribution Width 16.4 % (11.5-14.5); White Blood Count 11.4 K/mm3 (4.5-10.0)
[2024-05-28 00:23] LABS: Acetaminophen < 10 ug/mL (10-30); Salicylate < 1.0 mg/dL (2-20)
[2024-05-28 00:25] LABS: Prothrombin Time 13.8 Seconds (11.1-14.7)
[2024-05-28 00:26] LABS: Partial Thromboplastin Time 29.9 Seconds (22.3-36.8)
--- NOTE | 2024-05-28 00:28 | PC.NURSE ---
pt requested to be put on o2 on 2L NC due to having difficulty breathing . pt was placed on 2L NC. pt oxygen saturation was 100% prior to O2 being placed on patient.
[2024-05-28 00:29] LABS: Alanine Aminotransferase 36 U/L (6-50); Albumin Level 4.5 g/dL (3.5-5.1); Alkaline Phosphatase 147 U/L (38-126); Anion Gap 17 mmol/L (4-12); Aspartate Amino Transferase 31 U/L (17-59); Bilirubin,Total 0.6 mg/dL (0.2-1.3); Blood Urea Nitrogen 10 mg/dL (9-20); Calcium 8.8 mg/dL (8.4-10.2); Carbon Dioxide 19 mmol/L (22-30); Chloride 103 mmol/L (98-107); Estimated CRCL calculation 121 ml/min; Estimated Glomerular Filt Rate > 60; Glucose 125 mg/dL (65-110); Potassium 3.6 mmol/L (3.4-5.0); Sodium 139 mmol/L (137-145)
[2024-05-28 00:30] VITALS: PULSE 57; RESP 24; O2SAT 100
[2024-05-28 00:32] LABS: Alveolar/Arterial O2 Gradient 24.3 mmHg; Base Excess ABG -0.8 mEq/l (+/-2.0); Fractional Inspired Oxygen 21 %; HCO3 ABG 18.9 mEq/l (22.0-26.0); Oxygen Content ABG 16.7 %vol (16.0-22.0); Oxygen Saturation ABG 98.5 % (95.0-100.0); Oxyhemoglobin 97.6 % THb (90.0-100.0); PO2 ABG 101.7 mmHg (80.0-100.0); PO2 FiO2 Ratio Arterial Blood 4.84 %; Total Hemoglobin 12.1 g/dL (12.0-18.0)
[2024-05-28 00:35] LABS: Modified Allen's Test Pass; PCO2 ABG 19.8 mmHg (35.0-45.0); Site Drawn RIGHT RADIAL; pH ABG 7.598 (7.350-7.450)
[2024-05-28 00:45] VITALS: PULSE 57; RESP 24; O2SAT 100
[2024-05-28] MEDS: ONDANSETRON INJ 4 MG/2 ML VIAL IV PUSH (00:48)
--- NOTE | 2024-05-28 01:40 | PC.NURSE ---
pt was able to self catheterize himself through belly button to provide a urine sample.
[2024-05-28 02:19] LABS: Appearance Urine Turbid (Clear); Bacteria Urine 1+ /hpf; Bilirubin Urine Negative (Negative); Blood Urine Negative (Negative); Color Urine Yellow (Yellow); Glucose Urine UA Negative (Negative); Ketones Urine 1+ mg/dL (Negative); Leukocyte Esterase Ur 1+ LEU/UL (Negative); Need Manual Microscopic Reviewed; Nitrate Urine Negative (Negative); Protein Urine Negative (Negative); RBC Urine 0-2 /hpf (0-2); Specific Grav Ur 1.016 (1.001-1.035); Squamous Epithelial Cell Urine None Seen /hpf (Few); WBC Clumps Urine Present /HPF; WBC Urine 51-100 /hpf (0-3); pH Urine 7.5 (5.0-9.0)
[2024-05-28 02:29] LABS: Add Urine Microscopic? YES
[2024-05-28 02:44] LABS: Barbiturate Screen Urine Negative (Negative); Benzodiazepines Screen Urine Negative (Negative)
[2024-05-28 02:54] LABS: Amphetamine Screen Urine Negative (Negative); Cannabinoid Screen Urine Positive (Negative); Cocaine Screen Urine Negative (Negative); Methadone Screen Urine Negative (Negative); Opiate Screen Urine Positive (Negative); Phencyclidine Screen Urine Negative (Negative)
[2024-05-28 03:31] VITALS: PULSE 81; RESP 19
--- NOTE | 2024-05-28 04:15 | ED.GENADULT ---
HPI - General Adult General Chief complaint: Altered Mental Status Stated complaint: AMS, ABD PAIN, UNCONTROLLABLE TWITCHING Time Seen by Provider: 05/27/24 23:56 History of Present Illness HPI narrative: This is a 38-year-old male was recently discharged from our hospital presenting ED for altered mental status. Patient was [facility]. When he arrived there he was given multiple medications including a fentanyl patch, clonidine patch, Tylenol Flexeril and [place]. The [facility] then called the EMS because he was in and out of consciousness. When EMS arrived they found the patient lying in bed with his eyes rolled back. He was then brought to the hospital for evaluation. On my initial evaluation the patient was somnolent. He is not able to verbalize any complaints at that time. His fentanyl and clonidine patches were removed and he was monitored and ventrally regained consciousness. He then began complaining of right-sided abdominal pain. This is the same pain that he was admitted to the hospital. He says that the pain had never resolved and he was very unhappy that he was discharged. Related Data Home Medications Medication Instructions Recorded Confirmed ondansetron HCl 4 mg tablet 4 mg PO Q6H PRN Nausea And Vomiting 06/16/21 05/23/24 potassium chloride 20 mEq 40 meq PO DAILY 06/16/21 05/23/24 tablet,extended release(part/cryst) acetaminophen 500 mg capsule 500 mg PO Q6H PRN pain or fever 05/02/22 05/23/24 clonidine 0.3 mg/24 hr weekly 1 patch transdermal WEEKLY 05/02/22 05/23/24 transdermal patch clonidine HCl 0.1 mg tablet 0.2 mg PO BID PRN high blood 05/02/22 05/23/24 pressure gabapentin 100 mg capsule 100 mg PO TID 05/02/22 05/23/24 linaclotide 290 mcg capsule 1 cap PO DAILY 05/02/22 05/23/24 (Linzess) nifedipine 60 mg tablet,extended 60 mg PO DAILY 05/02/22 05/23/24 release 24 hr silver sulfadiazine 1 % topical 1 applic topical DAILY 05/02/22 05/23/24 cream (SSD) sodium phosphates 19 gram-7 118 ml RECTAL DAILY PRN 06/18/22 05/23/24 gram/118 mL enema (Fleet Enema) Constipation bisacodyl 10 mg rectal suppository 10 mg RECTAL EVERY OTHER DAY 11/03/22 05/23/24 (Dulcolax (bisacodyl)) bisacodyl 5 mg tablet,delayed 10 mg PO DAILY 11/03/22 05/23/24 release (Dulcolax (bisacodyl)) buspirone 7.5 mg tablet 7.5 mg PO BID 11/03/22 05/23/24 propranolol 40 mg tablet 40 mg PO BID 11/03/22 05/23/24 furosemide 20 mg tablet (Lasix) 20 mg PO BID 04/13/23 05/23/24 spironolactone 25 mg tablet 25 mg PO BID 04/13/23 05/23/24 (Aldactone) naloxone 4 mg/actuation nasal spray 1 spray intranasal Q2-3M PRN 05/23/24 05/23/24 Opiate Reversal triamcinolone acetonide 0.025 % 1 applic topical DAILY 05/23/24 05/23/24 topical cream Allergies Allergy/AdvReac Type Severity Reaction Status Date / Time metoclopramide [From Reglan] Allergy Other Verified 05/26/24 12:12 [facility]LY [facility] Past Medical History Medical History Abdominal pain Chest pain Chronic pain Discitis DVT prophylaxis Essential hypertension HTN (hypertension) Hypertensive urgency Nausea Osteomyelitis Paraplegia Pyelonephritis Sacral decubitus ulcer, stage III Surgical History Surgical History Hx of cholecystectomy Mitrofanoff appendicovesicostomy present S/P BKA (below knee amputation) bilateral Family History Family History Father History of blood clots Mother Diabetes mellitus Hypertension Social History Social History Social History: the patient stated that he uses marijuana but has not smoked cigarettes for quite some time. The [facility] a [facility]. He is single and does not have any children. Code status full code Smoking packs per day: 1 Smoking cigarettes p
--- NOTE | 2024-05-28 04:21 | PC.NURSE ---
pt refused to keep vital equipment on. this rn attempted to educated patient on the importance of wearing vital equipment. pt denied understanding and stated, I don't feel right man, make me feel better . edp dr. cruz made aware.
== END 2024-05-28 05:56 ==
PROVIDERS: Physician Assistant; Emergency Provider Emergency Medicine; PCP Internal Medicine
DX: R41.82 Altered mental status, unspecified (principal); T50.915A Adverse effect of multiple unspecified drugs, medicaments and biological substances, initial encounter; F41.0 Panic disorder [episodic paroxysmal anxiety]; R10.9 Unspecified abdominal pain; G89.29 Other chronic pain; N39.0 Urinary tract infection, site not specified; Z87.891 Personal history of nicotine dependence; Z89.512 Acquired absence of left leg below knee; Z89.511 Acquired absence of right leg below knee; Z90.49 Acquired absence of other specified parts of digestive tract; R00.1 Bradycardia, unspecified; N28.1 Cyst of kidney, acquired; R93.41 Abnormal radiologic findings on diagnostic imaging of renal pelvis, ureter, or bladder; L89.159 Pressure ulcer of sacral region, unspecified stage
CPT/HCPCS: 36415; 36600; 74177; 80053; 80307; 81001; 82805; 85025; 85610; 85730; 87086; 93005; 96374; 99284; J2405; Q9967

== ENCOUNTER 2024-11-04 00:21 | Inpatient (IN) | payer MEDICARE, MEDICAID, SELFPAY ==
[2024-11-04] VITALS (12 sets, daily range): BP systolic 111–202; BP diastolic 53–103; PULSE 42–137; RESP 16–20; TEMP 36.7–37.1; O2SAT 100; BMI 48.6
--- NOTE | ~2024-11-04 | CT_ITS ---
EXAMINATION: CT brain wo con DATE: 11/04/2024 03:19 INDICATION: Altered mental status TECHNIQUE: Computed tomography (CT) of the head was performed without intravenous contrast. Sagittal and coronal reconstructions were performed. The mA was adjusted according to patient size. Iterative reconstruction technique was employed. The dose-length product was 1135.00 mGy-cm. COMPARISON: head CT dated 11/03/2022 FINDINGS: No acute intracranial hemorrhage, acute infarction or abnormal extra axial fluid collection. Ventricl es are normal and symmetric. No mass/mass effect. Chronic mucous retention cyst at the floor the left maxillary sinus. The orbits and mastoid air cells are normal. IMPRESSION: 1. No acute intracranial process. Reviewed, dictated and finalized at location A. DEVELOPER
--- NOTE | ~2024-11-04 | CT_ITS ---
EXAMINATION: CT abdomen pelvis w con DATE: 11/04/2024 03:18 INDICATION: Abdominal pain TECHNIQUE: Computed tomography (CT) of the abdomen and pelvis was performed with 100 mL Omnipaque-350 intravenous contrast. Automated exposure control and iterative reconstruction technique were employe d. The dose-length product was 1629.56 mGy-cm. COMPARISON: CT dated 05/28/2024 and MRI dated 05/23/2024 FINDINGS: Mild dependent atelectasis in bilateral lower lobes. Heart size is normal. No pericardial or pleural effusion. Mild bilateral gynecomastia. Again seen is a small amount of pneumobilia in the liver likel y related to prior cholecystectomy and sphincterotomy with surgical clips at the gallbladder fossa. A gain seen are multiple bilateral renal cysts, the largest in both kidneys measuring up to 1.8 cm. Inf rarenal IVC filter. Postoperative changes of prior Mitrofanoff procedure (appendicovesicostomy) which drains to the umbilicus and ileocolic anastomosis. Large amount of stool scattered throughout the co jose francisco suggestive of constipation. No dilated bowel to suggest obstruction. Severe fatty atrophy of the musculature in the pelvis and visualized thighs. There is prominent heter otopic ossification along the proximal femurs with ankylosis of the right hip joint. Partially visual ized intramedullary hany at the proximal left femur. Changes of likely chronic L5-S1 discitis and oste omyelitis with residual pseudoarthrosis between the vertebral bodies and posterior elements. Sacral d ecubitus ulcer with chronic osteomyelitis with significant loss of bone stock including the coccyx an d coronal aspect of the sacrum. There are also bilateral ischial decubitus ulcers with additional sig nificant less advanced chronic osteomyelitis at the bilateral ischial tuberosities. This appears unch anged when compared with the prior study. IMPRESSION: 1. Large amount stool scattered throughout the colon. Correlate clinically for constipation. No other acute intra-abdominal/pelvic process. 2. Sacral and bilateral ischial decubitus ulcers with stable appearance of change of chronic osteomye litis most advanced at the sacrum. 3. Stable appearance of changes of chronic L5-S1 discitis and osteomyelitis. 4. Infrarenal IVC filter. 5. Prominent muscular atrophy and extensive heterotopic ossification formation in the pelvis and prox imal thighs consistent with sequela of chronic paraplegia. 6. Postoperative changes of prior Mitrofanoff procedure (appendicovesicostomy) which drains to the um bilicus. Reviewed, dictated and finalized at location A. EAR CONSULTANT IMPRESSION: 1. Large amount stool scattered throughout the colon. Correlate clinically for constipation. No other acute intra-abdominal/pelvic process. 2. Sacral and bilateral ischial decubitus ulcers with stable appearance of estrada ge of chronic osteomyelitis most advanced at the sacrum. 3. Stable appearance of changes of chronic L5-S1 discitis and osteomyelitis. 4. Infrarenal IVC filter. 5. Prominent muscular atrophy and extensive heterotopic ossification formation in the pelvis and proximal thighs consistent with sequela of chronic paraplegia . 6. Postoperative changes of prior Mitrofanoff procedure (appendicovesicostomy) which drains to the umbilicus.
--- NOTE | ~2024-11-04 | XR_ITS ---
EXAMINATION: XR chest 1V portable DATE: 11/04/2024 01:48 INDICATION: Weakness TECHNIQUE: frontal view of the chest was obtained. COMPARISON: Chest radiograph dated 05/26/2024 FINDINGS: The lungs are clear with no focal airspace opacities, pulmonary edema, pleural effusion or pneumothor ax. The cardiomediastinal silhouette is normal. Right internal jugular central venous port catheter w ith distal tip at the superior cavoatrial junction. IMPRESSION: 1. No acute cardiopulmonary disease. Reviewed, dictated and finalized at location A. BUTCHER
--- NOTE | 2024-11-04 00:49 | ECG_ITS ---
Test Date: 2024-11-04 04:22:59 Measurements Intervals [place] Rate: 38 P: 0 [place]: 0 QRS: 30 QRSD: 89 T: 35 QT: 490 QTc: 390 Interpretive Statements MARKED SINUS BRADYCARDIA ABNORMAL ECG Electronically Signed On 11-04-2024 08:31:35 [employer] by Trino Valentin M.D.
[2024-11-04] MEDS: MORPHINE SULFATE (*CRX) 4 MG/ML INJ IV PUSH (01:43)
[2024-11-04 01:57] LABS: Hematocrit 37.9 % (42.0-52.0); Hemoglobin 11.3 g/dL (14.0-18.0); Immature Platelet Fraction Pct 10.9 % (0.9-11.2); Mean Corpuscular HGB Conc 29.8 g/dl (32-36); Mean Corpuscular Hemoglobin 22.1 pg (26-34); Mean Corpuscular Volume 74.2 fl (80-100); Mean Platelet Volume 11.1 fl (7.4-10.4); Platelet Count Result 255 k/mm3 (150-375); Red Blood Count 5.11 M/mm3 (4.6-6.20); Red Cell Distribution Width 18.9 % (11.5-14.5)
[2024-11-04 02:05] LABS: Alanine Aminotransferase 18 U/L (6-50); Albumin Level 4.1 g/dL (3.5-5.1); Alkaline Phosphatase 145 U/L (38-126); Anion Gap 8 mmol/L (4-12); Aspartate Amino Transferase 21 U/L (17-59); Bilirubin,Total 0.8 mg/dL (0.2-1.3); Blood Urea Nitrogen 12 mg/dL (9-20); Calcium 8.8 mg/dL (8.4-10.2); Carbon Dioxide 21 mmol/L (22-30); Chloride 108 mmol/L (98-107); Estimated CRCL calculation 141 ml/min; Estimated Glomerular Filt Rate > 60; Glucose 129 mg/dL (65-110); Lactic Acid Reflex 1.6 mmol/L (0.7-2.0); Lipase 510 U/L (23-300); Magnesium 1.9 mg/dL (1.6-2.3); Potassium 3.7 mmol/L (3.4-5.0); Sodium 137 mmol/L (137-145)
[2024-11-04 02:07] LABS: Prothrombin Time 13.4 Seconds (11.1-14.7)
[2024-11-04 02:08] LABS: Partial Thromboplastin Time 30.4 Seconds (22.3-36.8)
[2024-11-04 02:16] LABS: Troponin I < 0.012 ng/mL (0.000-0.034)
[2024-11-04 02:21] LABS: Anisocytosis 2+; Band Neutrophils Percent 1 % (0-6); Eosinophils Absolute Manual 0.09 K/mm3 (0.02-0.50); Eosinophils Percent Manual 1 % (0-4); Large Platelets Present; Monocytes Absolute Manual 0.27 K/mm3 (0.1-0.90); Monocytes Percent Manual 3 % (3-9); Neutrophils Absolute Manual 7.74 K/mm3 (1.3-6.7); Neutrophils Percent Manual 85 % (46-73); Platelet Clumps Present; Platelet Estimate Increased (Adequate); Total Cells Counted 100
[2024-11-04 02:22] LABS: Burr Cells 1+; Hypochromasia 1+; Ovalocytes 1+; Procalcitonin 0.1 ng/mL; Schistocytes None Seen; Smudge Cells PRESENT
[2024-11-04 02:31] LABS: Influenza A QL RT-PCR Negative (Negative); Influenza B QL RT-PCR Negative (Negative); RSV RNA, RT-PCR Negative (Negative); SARS-CoV-2 RNA PCR Negative (Negative)
--- NOTE | 2024-11-04 05:12 | ED_ITS ---
HPI - General Adult General Chief complaint: Weakness Stated complaint: n/v generalized weakness x 2d, bradycardic Time Seen by Provider: 11/04/24 00:36 History of Present Illness HPI narrative: Patient is a 39-year-old gentleman presents emergency department chief complaint of nausea vomiting. The patient was brought in after he was having multiple episodes of nausea vomiting was found to be bradycardic by EMS. The patient also was diaphoretic when EMS arrived. The patient has prior history of admissions for polypharmacy and being over medicated with pain medications. Related Data Home Medications ?Medication ?Instructions ?Recorded ?Confirmed ?Last Taken ?Type ondansetron HCl 4 mg tablet 4 mg PO Q6H PRN Nausea And Vomiting 06/16/21 05/23/24 Unknown History potassium chloride 20 mEq 40 meq PO DAILY 06/16/21 05/23/24 06/15/21 07:00 History tablet,extended release(part/cryst) acetaminophen 500 mg capsule 500 mg PO Q6H PRN pain or fever 05/02/22 05/23/24 Unknown History clonidine 0.3 mg/24 hr weekly 1 patch transdermal WEEKLY 05/02/22 05/23/24 04/08/23 History transdermal patch clonidine HCl 0.1 mg tablet 0.2 mg PO BID PRN high blood 05/02/22 05/23/24 Unknown History pressure gabapentin 100 mg capsule 100 mg PO TID 05/02/22 05/23/24 Unknown History linaclotide 290 mcg capsule 1 cap PO DAILY 05/02/22 05/23/24 Unknown History (Linzess) nifedipine 60 mg tablet,extended 60 mg PO DAILY 05/02/22 05/23/24 Unknown History release 24 hr silver sulfadiazine 1 % topical 1 applic topical DAILY 05/02/22 05/23/24 Unknown History cream (SSD) sodium phosphates 19 gram-7 118 ml RECTAL DAILY PRN 06/18/22 05/23/24 Unknown History gram/118 mL enema (Fleet Enema) Constipation bisacodyl 10 mg rectal suppository 10 mg RECTAL EVERY OTHER DAY 11/03/22 05/23/24 Unknown History (Dulcolax (bisacodyl)) bisacodyl 5 mg tablet,delayed 10 mg PO DAILY 11/03/22 05/23/24 Unknown History release (Dulcolax (bisacodyl)) buspirone 7.5 mg tablet 7.5 mg PO BID 11/03/22 05/23/24 Unknown History propranolol 40 mg tablet 40 mg PO BID 11/03/22 05/23/24 Unknown History furosemide 20 mg tablet (Lasix) 20 mg PO BID 04/13/23 05/23/24 Unknown History spironolactone 25 mg tablet 25 mg PO BID 04/13/23 05/23/24 Unknown History (Aldactone) naloxone 4 mg/actuation nasal spray 1 spray intranasal Q2-3M PRN 05/23/24 05/23/24 Unknown History Opiate Reversal triamcinolone acetonide 0.025 % 1 applic topical DAILY 05/23/24 05/23/24 Unknown History topical cream Allergies Allergy/AdvReac Type Severity Reaction Status Date / Time metoclopramide (From Reglan) Allergy Other Verified 05/26/24 12:12 Review of Systems 2 Review of Systems: A 10 system review of systems was completed on the patient and is negative except for what is stated in the HPI. Nursing and ancillary documentation was reviewed. [facility]LY [facility] Past Medical History Medical History Nausea Chronic pain Sacral decubitus ulcer, stage III Osteomyelitis Discitis Abdominal pain Hypertensive urgency DVT prophylaxis Essential hypertension Chest pain Paraplegia Pyelonephritis HTN (hypertension) Surgical History Surgical History Mitrofanoff appendicovesicostomy present Hx of cholecystectomy S/P BKA (below knee amputation) bilateral Family History Family History Father History of blood clots Mother Diabetes mellitus Hypertension Social History Social History Social History: the patient stated that he uses marijuana but has not smoked cigarettes for quite some time. The patient resides in a long-term. He is single and does not have any children. Code status full code Smoking packs per day: 1 Smoking cigarettes per day: 20.0 Years smoked: 12 Smoking pack-years: 12.00 Smoking status: Former smoker Tobacco type: cigarettes Smoking end date: 10/15/18 Alcohol intake: former Substance use: never Substance use type: marijuana Last use: 04/25/22 Do You Feel Safe in your Home?: Yes Lack of Transportation: No Lack of Food: Never True Current Housing: I Have Housing Concerned About Future Housing: No Difficulty Paying Gas/Electric Bills: No Difficulty Paying for Meds: No Currently Unemployed: No Education: High School Diploma/GED Difficulty w/ Childcare or Family Care: No Living arrangements: long-term Spiritual care concerns: No Exam 2 Narrative: GENERAL: Well-appearing, well-nourished, and in no acute distress. HEAD: Normocephalic, atraumatic. EYES: PERRLA and EOMI. ENT: Nares clear, no rhinorrhea or epistaxis. Mucous membranes moist. NECK: Supple. CHEST: Clear to auscultation. No respiratory distress. HEART: Bradycardic rate and rhythm. No murmur heard. Normal peripheral pulses. ABDOMEN: Soft, nontender, nondistended, normal active bowel sounds. EXTREMITIES: Normal range of motion. No edema. SKIN: Warm, dry, no rash. NEURO: No focal deficits. Alert and oriented x3. PSYCH: Normal mood and affect. Course Vital Signs Vital signs: Vital Signs Temperature 37.1 C 11/04/24 01:44 Pulse Rate 42 L 11/04/24 01:44 Respiratory Rate 20 11/04/24 01:44 Blood Pressure 202/103 H 11/04/24 01:44 Pulse Oximetry 100 11/04/24 01:44 Oxygen Delivery Room Air 11/04/24 01:44 Temperature 37.1 C 11/04/24 01:44 Pulse Rate 42 L 11/04/24 01:44 Respiratory Rate 20 11/04/24 01:44 Blood Pressure 202/103 H 11/04/24 01:44 Pulse Oximetry 100 11/04/24 01:44 Oxygen Delivery Room Air 11/04/24 01:44 Medical Decision Making MDM Narrative Medical decision making narrative: Differential diagnosis includes electrolyte abnormality, beta-chantal overdose, intra-abdominal infection, EKG showed sinus bradycardia with rate of 38. Patient's heart rate currently is 63 at this time the beta-chantal will be held case was discussed with the hospitalist for admission. CT head and CT abdomen pelvis were also ordered in the emergency department and showed no significant abnormality. Vital Signs Vital Signs: Vital Signs Temperature 37.1 C 11/04/24 01:44 Pulse Rate 42 L 11/04/24 01:44 Respiratory Rate 20 11/04/24 01:44 Blood Pressure 202/103 H 11/04/24 01:44 Pulse Oximetry 100 11/04/24 01:44 Oxygen Delivery Room Air 11/04/24 01:44 Temperature 37.1 C 11/04/24 01:44 Pulse Rate 42 L 11/04/24 01:44 Respiratory Rate 20 11/04/24 01:44 Blood Pressure 202/103 H 11/04/24 01:44 Pulse Oximetry 100 11/04/24 01:44 Oxygen Delivery Room Air 11/04/24 01:44 Lab Data 11/04/24 01:46 11/04/24 01:46 Labs: Lab Results 11/04/24 Range/Units 01:46 WBC 9.0 (4.5-10.0) K/mm3 RBC 5.11 (4.6-6.20) M/mm3 Hgb 11.3 L (14.0-18.0) g/dL Hct 37.9 L (42.0-52.0) % MCV 74.2 L (80-100) fl MCH 22.1 L (26-34) pg MCHC 29.8 L (32-36) g/dl RDW 18.9 H (11.5-14.5) % Plt Count 255 (150-375) k/mm3 MPV 11.1 H (7.4-10.4) fl Immature Gran % (Auto) Not Reportable Neut % (Auto) Not Reportable Lymph % (Auto) Not Reportable [place] % (Auto) Not Reportable Eos % (Auto) Not Reportable Baso % (Auto) Not Reportable Lymph # (Auto) Not Reportable [place] # (Auto) Not Reportable Eos # (Auto) Not Reportable Baso # (Auto) Not Reportable Abs Immat Gran (auto) Not Reportable Absolute Neuts (auto) Not Reportable Absolute Nucleated RBC Not Reportable Total Counted 100 Neutrophils % (Manual) 85 H (46-73) % Band Neutrophils % 1 (0-6) % Lymphocytes % (Manual) 10.0 L (18-44) % Monocytes % (Manual) 3 (3-9) % Eosinophils % (Manual) 1 (0-4) % Nucleated RBC % Not Reportable Abs Neuts (Manual) 7.74 H (1.3-6.7) K/mm3 Abs Lymphs (Manual) 0.90 L (1.1-4.5) K/mm3 Abs Monocytes (Manual) 0.27 (0.1-0.90) K/mm3 Absolute Eos (Manual) 0.09 (0.02-0.50) K/mm3 Smudge Cells Present Platelet Estimate Increased (Adequate) Clumped Platelets Present Large Platelets Present % Immature Plt Fraction 10.9 (0.9-11.2) % Hypochromasia 1+ Anisocytosis 2+ Ovalocytes 1+ Giovana Cells 1+ Schistocytes None seen PT 13.4 (11.1-14.7) Seconds INR 1.0 APTT 30.4 (22.3-36.8) Seconds Sodium 137 (137-145) mmol/L Potassium 3.7 (3.4-5.0) mmol/L Chloride 108 H (98-107) mmol/L Carbon Dioxide 21 L (22-30) mmol/L Anion Gap 8 (4-12) mmol/L BUN 12 (9-20) mg/dL Creatinine 0.70 (0.7-1.3) mg/dL Estim Creat Clear Calc 141 ml/min Estimated GFR > 60 (59 - ) Glucose 129 H (65-110) mg/dL Lactic Acid 1.6 (0.7-2.0) mmol/L Calcium 8.8 (8.4-10.2) mg/dL Magnesium 1.9 (1.6-2.3) mg/dL Total Bilirubin 0.8 (0.2-1.3) mg/dL AST 21 (17-59) U/L ALT 18 (6-50) U/L Alkaline Phosphatase 145 H (38-126) U/L Troponin I < 0.012 (0.000-0.034) ng/mL Total Protein 8.0 (6.3-8.2) g/dL Albumin 4.1 (3.5-5.1) g/dL Lipase 510 H (23-300) U/L Procalcitonin 0.1 ng/mL Influenza A (RT-PCR) Negative (Negative) Influenza B (RT-PCR) Negative (Negative) RSV (RT-PCR) Negative (Negative) SARS-CoV-2 RNA (RT-PCR) Negative (Negative) Discharge Plan Discharge Clinical Impression: Nausea & vomiting, Bradycardia Patient Disposition: Still a Patient Condition: Guarded Prognosis Patient Language: Macanese Prescriptions: No Action potassium chloride 20 mEq tablet,ER particles/crystals 40 meq PO DAILY ondansetron HCl 4 mg tablet 4 mg PO Q6H PRN (Reason: Nausea And Vomiting) Fleet Enema 19-7 gram/118 mL Enema 118 ml RECTAL DAILY PRN (Reason: Constipation) Rx Instructions: with breakfast triamcinolone acetonide 0.025 % cream 1 applic TOPICAL DAILY Rx Instructions: FACE/CHEEK naloxone 4 mg/actuation spray,non-aerosol 1 spray INTRANASAL Q2-3M PRN (Reason: Opiate Reversal) dicyclomine 10 mg Capsule 20 mg PO QID PRN (Reason: Abdominal Cramping) Qty: 1 0RF lactulose 20 gram/30 mL Solution 20 g PO Q48HR Qty: 1 0RF tramadol 50 mg tablet 50 mg PO Q8H PRN (Reason: Mild Pain (Scale Score 1-4)) Qty: 1 0RF oxycodone-acetaminophen 10-325 mg tablet 1 tablet PO Q4H PRN (Reason: Pain (Scale Score 4-6)) Qty: 10 0RF fentanyl 75 mcg/hr Patch 72 Hour 75 patch transdermal Q4D Qty: 5 0RF cyclobenzaprine 5 mg tablet 5 mg PO TID PRN (Reason: Muscle Spasm) Qty: 1 0RF sulfamethoxazole-trimethoprim 800-160 mg Tablet 1 tab PO Q12HR Qty: 5 0RF clonidine HCl 0.1 mg tablet 0.2 mg PO BID PRN (Reason: high blood pressure) clonidine 0.3 mg/24 hr patch weekly 1 patch transdermal WEEKLY Rx Instructions: Change patch on acetaminophen 500 mg Capsule 500 mg PO Q6H PRN (Reason: pain or fever) nifedipine 60 mg tablet extended release 24hr 60 mg PO DAILY gabapentin 100 mg capsule 100 mg PO TID Linzess 290 mcg capsule 1 cap PO DAILY silver sulfadiazine [SSD] 1 % cream 1 applic topical DAILY Rx Instructions: Cleanse wound bed. Apply 2mm thick, mixed with collagen particles (mix into paste) into wound bed. Cover with calcium alginate, then cover with silicone boarded dressind daily. To be used for Left posterior thigh, left posterior medial thigh, left medial knee and left buttock wound. propranolol 40 mg tablet 40 mg PO BID bisacodyl [Dulcolax (bisacodyl)] 10 mg Suppository 10 mg RECTAL EVERY OTHER DAY buspirone 7.5 mg tablet 7.5 mg PO BID bisacodyl [Dulcolax (bisacodyl)] 5 mg Tablet,Delayed Release (Dr/Ec) 10 mg PO DAILY spironolactone [Aldactone] 25 mg Tablet 25 mg PO BID furosemide [Lasix] 20 mg Tablet 20 mg PO BID midodrine 5 mg Tablet 5 mg PO BID PRN (Reason: HYPOTENSION, SYSTOLIC <90) Qty: 30 0RF Follow-up/Referrals: Ampadu,MD Rick [Primary Care Provider] - Time of Disposition: 05:16
--- NOTE | 2024-11-04 07:29 | PC.NURSE ---
patient had a port re-access. Patients port flushes and draws good. No pain. Dressing applied.
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
[2024-11-04] MEDS: ONDANSETRON INJ 4 MG/2 ML VIAL IV PUSH (08:02)
--- NOTE | 2024-11-04 08:14 | PC.NURSE ---
Patient arrived from ER. Stage III ulcer on his coccyx. Wound Nurse to be consulted.
[2024-11-04] MEDS: ACETAMINOPHEN 325 MG TABLET 650 MG PO (08:22)
[2024-11-04] MEDS: hydrALAZINE HCL 20 MG/ML VIAL 10 MG IV PUSH (08:46)
[2024-11-04] MEDS: cloNIDine HCL 0.1 MG TABLET PO ×2 (10:43→21:02)
[2024-11-04] MEDS: NIFEdipine 30 MG TAB.ER.24 90 MG PO (10:43)
[2024-11-04] MEDS: HYDROmorphone HCL INJ (*CRX) 1 MG/ML SYR 0.5 MG IV PUSH ×2 (12:28→23:24)
[2024-11-04] MEDS: IBUPROFEN 400 MG TABLET PO ×2 (17:41→23:48)
[2024-11-04] MEDS: HYDROCORTISONE 1% 30 GM CREAM 1 APPLIC TOPICAL (17:41)
[2024-11-04] MEDS: oxyCODONE/ACETAMINOPHEN (*CRX) 5-325 MG TABLET 1 TABLET PO ×2 (17:41→21:01)
[2024-11-04] MEDS: GABAPENTIN 300 MG CAPSULE PO (17:41)
[2024-11-04] MEDS: WATER FOR IRRIGATION, STERILE 1,000 ML BOTTLE 1000 ML (17:41)
[2024-11-04] MEDS: ALPRAZolam (*CRX) 0.25 MG TABLET PO (17:42)
[2024-11-04] MEDS: PANTOPRAZOLE 40 MG TABLET PO (17:42)
[2024-11-04] MEDS: fentaNYL (*CRX) 50 MCG PATCH TRANSDERM (17:42)
[2024-11-04] MEDS: polyethylene glycoL 3350 17 GM POWD.PACK PO (17:47)
[2024-11-04 18:06] LABS: Add Urine Microscopic? YES; Appearance Urine Turbid (Clear); Bacteria Urine 4+ /hpf; Bilirubin Urine Negative (Negative); Blood Urine Negative (Negative); Color Urine Yellow (Yellow); Glucose Urine UA Negative (Negative); Ketones Urine 1+ mg/dL (Negative); Leukocyte Esterase Ur 3+ LEU/UL (Negative); Need Manual Microscopic Reviewed; Nitrate Urine Positive (Negative); Protein Urine 1+ mg/dL (Negative); RBC Urine 0-2 /hpf (0-2); Specific Grav Ur 1.015 (1.001-1.035); Squamous Epithelial Cell Urine Occasional /hpf (Few); Triple Phosphate Crystal Urine Present /hpf; Urobilinogen Urine 0.2 mg/dL (<2.0); WBC Urine 51-100 /hpf (0-3); pH Urine 8.5 (5.0-9.0)
[2024-11-04] MEDS: SODIUM CHLORIDE 0.9% IV 1,000 ML 999 ML IV CONT (23:21)
[2024-11-04] MEDS: CYCLOBENZAPRINE HCL 5 MG TABLET PO (23:29)
[2024-11-05] VITALS (11 sets, daily range): BP systolic 106–120; BP diastolic 50–69; PULSE 77–104; RESP 12–16; TEMP 36.2–36.7; O2SAT 98–100
[2024-11-05] MEDS: oxyCODONE/ACETAMINOPHEN (*CRX) 5-325 MG TABLET 1 TABLET PO ×2 (06:39→13:59)
[2024-11-05] MEDS: IBUPROFEN 400 MG TABLET PO ×3 (06:39→17:24)
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
[2024-11-05] MEDS: NIFEdipine 30 MG TAB.ER.24 90 MG PO (08:55)
[2024-11-05] MEDS: polyethylene glycoL 3350 17 GM POWD.PACK PO ×2 (08:55→17:24)
[2024-11-05] MEDS: SENNA/DOCUSATE SODIUM TABLET 1 TAB PO (08:55)
[2024-11-05] MEDS: ALPRAZolam (*CRX) 0.25 MG TABLET PO ×2 (08:55→17:24)
[2024-11-05] MEDS: GABAPENTIN 300 MG CAPSULE PO (08:55)
[2024-11-05] MEDS: FOLIC ACID 1 MG TABLET PO (08:55)
[2024-11-05] MEDS: PANTOPRAZOLE 40 MG TABLET PO ×2 (08:55→17:24)
[2024-11-05] MEDS: cloNIDine HCL 0.1 MG TABLET PO (08:55)
[2024-11-05] MEDS: HYDROCORTISONE 1% 30 GM CREAM 1 APPLIC TOPICAL (08:56)
[2024-11-05] MEDS: HYDROmorphone HCL INJ (*CRX) 1 MG/ML SYR 0.5 MG IV PUSH ×2 (09:03→18:23)
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
[2024-11-05] MEDS: INFLUENZA TRIVALENT VACCINE 45 MCG/0.5 ML SYRINGE IM (13:59)
--- NOTE | 2024-11-05 15:53 | PC.NURSE ---
Called report to Valencia at [facility]. Waiting for ambulance to discharge patient back to his facility.
--- NOTE | 2024-11-05 18:43 | PC.NURSE ---
Discharge wound photos completed and uploaded.
[2024-11-05] MEDS: HEPARIN SODIUM LOCK FLUSH 500 UNITS/5 ML SYRINGE IV PUSH (20:00)
--- NOTE | 2024-11-05 20:20 | PC.NURSE ---
Patient port was removed. Left by ambulance at 2009 with belongings.
--- OUTSIDE RECORDS SUMMARY | 2024-11-11 02:04 | XMS_ITS | Encounter Summary ---
Author Organization [facility] Health Address [address] 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 ENGINEER - 11/17/2023 11:59 PM [facility] Hospital Encounter [facility] OP DRAW STATION [address] [place] [address] [phone] Discharge Disposition: Home or Self Care Social History Tobacco Use Types Packs/Day Years Used Date Smoking Tobacco: Never Smokeless Tobacco: Never Alcohol Use Standard Drinks/Week Comments Never 0 (1 standard drink = 0.6 oz pur e alcohol) AUDIT-C Answer Date Recorded Frequency of Alcohol Consumption Never 08/09/2019 Average Number of Drinks Not on file 019 Frequency of Binge Drinking Not on file 12/2018 Sex and Gender Information Value Date Recorded Sex Assigned at Not on file Gender Identity Not on file Sexual Orientation Not on file documented as of this encounter Functional Status Functional Status Response Date of Assess ment Is person deaf or have serious hearing difficult y? No 08/10/2019 Is person blind or have serious difficulty seein g? No 08/10/2019 Does person have serious dif ficulty walking/climbing stairs? Yes 08/10/2019 Does person have difficulty dressing/bathing? No 08/10/2019 Does person have difficulty doing errands alone? Yes 08/10/2019 Cognitive Status Response Date of Assessm ent Does person have difficulty concentrating/remembering/making decisions? No 08/10/2019 documented as of this encounter Medications at Time of Discharge Medication Sig Dispensed Refills Start Date End Date acetaminophen (Tylenol) 500 MG capsule Take 1 (one) capsule by mouth every 6 hours as needed 08/11/2021 ascorbic acid (Vitamin C) 500 MG tablet Take 1 (one) tablet by mouth once daily bisacodyl EC 5 MG tablet Take 2 (two) tablets by mouth every other day as needed for Constipation busPIRone (BUSPAR) 10 MG tablet Take 7.5 mg by mouth 3 times daily cloNIDine (Catapres) 0.2 MG tablet Take 1 (one) tablet by mouth 2 times daily cyclobenzaprine (FLEXERIL) 10 MG tablet Take 0.5 (one-half) tablet by mouth 3 times daily as needed for Muscle Spasms fentaNYL 25 MCG/HR, fentaNYL 50 MCG/HR 75 mcg by Apply externally route as directed Every 4 days. furosemide (Lasix) 20 MG tablet Take 1 (one) tablet by mouth 2 times daily gabapentin (Neurontin) 100 MG capsule Take 1 (one) capsule by mouth 3 times daily midodrine (Proamatine) 5 MG tablet Take 1 (one) tablet by mouth 2 times daily NIFEdipine CR osmotic 24hr (Procardia-XL) 60 MG tablet Take 1 (one) tablet by mouth once daily ondansetron, disintegrating, (Zofran ODT) 4 MG tablet Take 1 (one) tablet by mouth every 6 hours as needed for Nausea/Vomiting Allow tablet to dissolve on the tongue potassium chloride ER (Klor-Con M) 20 MEQ tablet Take 2 (two) tablets by mouth once daily 06/17/2023 propranolol (Inderal) 40 MG tablet Take 1 (one) tablet by mouth 2 times daily spironolactone (Aldactone) 25 MG tablet Take 1 (one) tablet by mouth 2 times daily traMADol (Ultram) 50 MG tablet Take 1 (one) tablet by mouth every 8 hours as needed for Pain Acetaminophen (Tylenol) 325 MG CAPS 03/15/2024 amLODIPine (NORVASC) 10 MG tablet Take 1 (one) tablet by mouth once daily 03/15/2024 cloNIDine (Catapres) 0.3 MG/24HR patch Apply 1 (one) patch to skin every 7 days 03/15/2024 HYDROcodone-acetaminoph en (NORCO) 5-325 MG tablet Take 1 (one) tablet by mouth every 12 hours as needed for Pain 03/15/2024 lactulose (Chronulac) 20 GM/30ML solution Take 30 mL by mouth once daily 03/15/2024 linaCLOtide (Linzess) 290 MCG capsule Take 1 (one) capsule by mouth daily before breakfast Take on an empty stomach at least 30 minutes prior to first meal of the day. lisinopril (PRINIVIL; ZESTRIL) 10 MG tablet Take 1 (one) tablet by mouth once daily 03/15/2024 magnesium citrate solution Take 150 mL by mouth once 03/15/2024 NIFEdipine CR osmotic 24hr (Procardia XL) 60 MG tablet Take 1 (one) tablet by mouth once daily 03/15/2024 omeprazole (PriLOSEC) 20 MG capsule Take 1 (one) capsule by mouth daily before breakfast 03/15/2024 oxyCODONE-acetaminophen (Percocet) 10-325 MG tablet Take 1 (one) tablet by mouth every 6 hours as needed for Pain 08/10/2024 polyethylene glycol 3350 (Miralax) 17 GM/SCOOP powderIndications:Const ipation, unspecified constipation type,Abdominal pain, unspecified abdominal location,Nausea Take 17 (seventeen) g by mouth once daily 850 g 3 12/03/2022 03/15/2024 Sennosides-Docusate Sodium 8.6-50 MG CAPS Take 1 tablet by mouth once daily 03/15/2024 sodium hypochlorite 0.5% (Dakin's) 0.5 % full strength solution 03/13/202203/15 SSD 1 % cream 05/10/2023 03/15/2024 vitamin C (Ascorbic Acid) 1000 MG tablet Take 1 (one) tablet by mouth once daily 03/15/2024 documented as of this encounter Plan of Treatment Upcoming Encounters Date Type Department Care Team (Late st Contact Info) Description 11/16/2024 8:30 AM VEHICLE COST ENGINEER Office Visit [facility] [place] [id number] documented as of this encounter Procedures Procedure Name Priority Date/Time Associated Diagnosis Comments CULTURE URINE Routine 11/17/2023 3:01 PM VEHICLE COST ENGINEER Neurogenic bladder Bacteriuria documented in this encounter Results * (ABNORMAL) CULTURE URINE (11/17/2023 3:01 PM VEHICLE COST ENGINEER) Culture Urine >100,000 CFU/mL Escherichia coli extended-spectr um beta-lactamase (ESBL)(A) MAURIZIO 11/21/2023 5:[address] [facility] Comment: Strain 1 Isolate is multi drug resistant organism (MDRO). Culture Urine >100,000 CFU/mL Escherichia coli(A) MAURIZIO 11/21/2023 5:[address] [facility] Comment:Strain 2 Culture Urine 10,000-50,000 CFU/mL urogenital mallory MAURIZIO 11/21/2023 5:[address] [facility] Urine URINE SPECIMEN OBTAINED BY SINGLE CATHETERIZATION OF URINARY BLADDER / Unknown Collection / Unknown 11/17/2023 3:01 PM VEHICLE COST ENGINEER 11/17/2023 5:30 PM VEHICLE COST ENGINEER Narrative [facility] - 11/21/2023 5:00 AM VEHICLE COST ENGINEER Contact Precautions Required. This isolate is a multidrug resistant organism (MDRO). MDROs are resistant to 3 or more classes of antibiotics. Contact Precautions required. Infectious Diseases consult recommended. Organism Antibiotic Method Susceptibility Escherichia coli extended-spectrum beta-lactamase (ESBL) Fosfomycin KB Susceptible Escherichia coli extended-spectrum beta-lactamase (ESBL) Amikacin MAURIZIO 4 ug/mL: Susceptible Escherichia coli extended-spectrum beta-lactamase (ESBL) Ampicillin MAURIZIO >=32 ug/mL: Resistant Escherichia coli extended-spectrum beta-lactamase (ESBL) Ampicillin-sulbactam MAURIZIO >=32 ug/mL: Resistant Escherichia coli extended-spectrum beta-lactamase (ESBL) Cefazolin MAURIZIO >=64 ug/mL: Resistant Escherichia coli extended-spectrum beta-lactamase (ESBL) Cefazolin-Urine (uncomplicated infections ONLY) MAURIZIO >=64 ug/mL: Resistant Escherichia coli extended-spectrum beta-lactamase (ESBL) Cefepime MAURIZIO 2 ug/mL: Susceptible Escherichia coli extended-spectrum beta-lactamase (ESBL) Ceftriaxone MAURIZIO >=64 ug/mL: Resistant Escherichia coli extended-spectrum beta-lactamase (ESBL) Ciprofloxacin MAURIZIO >=4 ug/mL: Resistant Escherichia coli extended-spectrum beta-lactamase (ESBL) Extended-Spectrum Beta-Lactamase MAURIZIO POS ug/mL: Pos Escherichia coli extended-spectrum beta-lactamase (ESBL) Gentamicin MAURIZIO >=16 ug/mL: Resistant Escherichia coli extended-spectrum beta-lactamase (ESBL) Meropenem MAURIZIO <=0.25 ug/mL: Susceptible Escherichia coli extended-spectrum beta-lactamase (ESBL) Piperacillin-tazobactam MAURIZIO 8 ug/mL: Susceptible Escherichia coli extended-spectrum beta-lactamase (ESBL) Tobramycin MAURIZIO >=16 ug/mL: Resistant Escherichia coli extended-spectrum beta-lactamase (ESBL) Trimethoprim-sulfamethoxa zole MAURIZIO >=320 ug/mL: Resistant Comment: Extended-spectrum beta-lactamase (ESBL) producing organism. Beta-lactam/beta-lactamase inhibitor combinations may not be effective for treatment of bloodstream infections and other severe infections regardless of in vitro susceptibility testing results. Infectious Disease consult recommended. Contact precautions required. Urine breakpoints for cefazolin should only be used when treating uncomplicated UTIs including men and women without urologic abnormality, kidney stones, stents, nephrostomy tubes, signs/symptoms of systemic illness, or pelvic/perineal pain in men. Cefazolin results can be used to predict susceptibility to oral cephalosporins - cephalexin, cefprozil, cefaclor, cefuroxime, cefdinir, and cefpodoxime. For complicated UTIs, use alternative cefazolin susceptibility result above. Escherichia coli Amikacin MAURIZIO <=2 ug/mL: Susceptible Escherichia coli Ampicillin MAURIZIO >=32 ug/mL: Resistant Escherichia coli Ampicillin-sulbactam MAURIZIO >=32 ug/mL: Resistant Escherichia coli Cefazolin MAURIZIO <=4 ug/mL: See Comment* Escherichia coli Cefazolin-Urine (uncomplicated infections ONLY) MAURIZIO <=4 ug/mL: Susceptible Escherichia coli Cefepime MAURIZIO <=1 ug/mL: Susceptible Escherichia coli Ceftriaxone MAURIZIO <=1 ug/mL: Susceptible Escherichia coli Ciprofloxacin MAURIZIO 0.5 ug/mL: Intermediate Escherichia coli Extended-Spectrum Beta-Lactamase MAURIZIO NEG ug/mL: Neg Escherichia coli Gentamicin MAURIZIO <=1 ug/mL: Susceptible Escherichia coli Meropenem MAURIZIO <=0.25 ug/mL: Susceptible Escherichia coli Piperacillin-tazobactam MAURIZIO <=4 ug/mL: Susceptible Escherichia coli Tobramycin MAURIZIO <=1 ug/mL: Susceptible Escherichia coli Trimethoprim-sulfame thoxa zole MAURIZIO >=320 ug/mL: Resistant Comment: *Cefazolin MAURIZIO of </=4 cannot distinguish between susceptible or intermediate for systemic breakpoints. If further defined interpretation is needed, call Microbiology and a disk diffusion test will be performed. Urine breakpoints for cefazolin should only be used when treating uncomplicated UTIs including men and women without urologic abnormality, kidney stones, stents, nephrostomy tubes, signs/symptoms of systemic illness, or pelvic/perineal pain in men. Cefazolin results can be used to predict susceptibility to oral cephalosporins - cephalexin, cefprozil, cefaclor, cefuroxime, cefdinir, and cefpodoxime. For complicated UTIs, use alternative cefazolin susceptibility result above. Otoniel Tamez MD LAB - MICROBIOLOGY ORDERABLES [facility] [address] [place] [address], [facility] [phone] documented in this encounter Visit Diagnoses Diagnosis Neurogenic bladder Neurogenic bladder, NOS Bacteriuria Other nonspecific finding on examination of urine documented in this encounter
--- OUTSIDE RECORDS SUMMARY | 2024-11-11 02:04 | XMS_ITS | Encounter Summary ---
Author Organization [facility] Address [address] [place] [address] Care Team Providers Care Rn Assessment Name Role Phone Rick Carpio MD Primary Care Provider + [phone] Reason for Visit * Auth/Cert (Routine) Specialty Diagnoses / Procedures Referred By Contac t Referred To Contact Diagnoses Other constipation Procedures AK COLONOSCOPY, DIAGNOSTIC COLONOSCOPY DIAGNOSTIC---extended 2 day prep COLONOSCOPY DIAGNOSTIC Referral ID Status Reason Start Date Expiration Date Visits Re quested Visits Authorized [id number] 1 1 Encounter Details Date Type Department Care Team (Latest Contact Info) Description 09/25/2024 11:40 AM [facility] - 09/25/2024 2:32 PM [facility] Hospital Encounter [facility] [address] [place] [phone] Azar Begum MD [facility] [address] Surgery General Discharge Disposition: Home or Self Care Social History Tobacco Use Types Packs/Day Years Used Date Smoking Tobacco: Never Smokeless Tobacco: Never Alcohol Use Standard Drinks/Week Comments Never 0 (1 standard drink = 0.6 oz pur e alcohol) AUDIT-C Answer Date Recorded Q1: How often do you have a drink containing alcohol? Never 09/25/2024 Q2: How many drinks containi ng alcohol do you have on a typical day when you are drinking? Patient does not drink Q3: How often do you have si x or more drinks on one occasion? Never 09/25/2024 Sex and Gender Information Value Date Recorded Sex Assigned at Not on file Gender Identity Not on file Sexual Orientation Not on file documented as of this encounter Last Filed Vital Signs Vital Sign Reading Time Taken Comments Blood Pressure 109/59 09/25/2024 2:00 PM [facility] Pulse 86 09/25/2024 2:00 PM [facility] Temperature 36.6 ??C (97.8 ??F) 09/25/2024 1:45 PM CS T Respiratory Rate 14 09/25/2024 2:00 PM [facility] Oxygen Saturation 100% 09/25/2024 2:00 PM [facility] Inhaled Oxygen Concentration - - Weight 132.5 kg (292 lb) 09/25/2024 12:41 PM [facility] Height 165.1 cm (5' 5 ) 09/25/2024 12:41 PM [facility] Body Mass Index 48.59 09/25/2024 12:41 PM [facility] documented in this encounter Functional Status Functional Status Response Date of Assess ment Is person deaf or have serious hearing difficult y? No 09/25/2024 Is person blind or have serious difficulty seein g? No 09/25/2024 Does person have serious dif ficulty walking/climbing stairs? Yes 09/25/2024 Does person have difficulty dressing/bathing? No 09/25/2024 Does person have difficulty doing errands alone? Yes 09/25/2024 Cognitive Status Response Date of Assessm ent Does person have difficulty concentrating/remembering/making decisions? No 09/25/2024 documented as of this encounter Medications at Time of Discharge Medication Sig Dispensed Refills Start Date End Date acetaminophen (Tylenol) 500 MG capsule Take 1 (one) capsule by mouth every 6 hours as needed 08/11/2021 ALPRAZolam (Xanax) 2 MG tablet Take 1 (one) tablet by mouth 2 times daily ascorbic acid (Vitamin C) 500 MG tablet Take 1 (one) tablet by mouth once daily bisacodyl EC (Dulcolax) 5 MG tablet Take 4 tablets orally at 2 nights before your colonoscopy. Take 4 tablets orally at noon the day before your colonoscopy 8 tablet 09/16/2024 bisacodyl EC 5 MG tablet Take 2 (two) tablets by mouth every other day as needed for Constipation busPIRone (BUSPAR) 10 MG tablet Take 7.5 mg by mouth 3 times daily cloNIDine (Catapres) 0.2 MG tablet Take 1 (one) tablet by mouth 2 times daily cloNIDine (Catapres) 0.3 MG/24HR patch Apply 1 (one) patch to skin every 7 days cyclobenzaprine (FLEXERIL) 10 MG tablet Take 0.5 [...] (one) capsule by mouth 3 times daily magnesium citrate solution Drink at 5pm 2 nights before your colonoscopy 300 mL 09/16/2024 midodrine (Proamatine) 5 MG tablet Take 1 (one) tablet by mouth 2 times daily naloxone HCl (Narcan) 4 MG/0.1ML nasal spray [place] 1 (one) spray into the nose as needed NIFEdipine CR osmotic 24hr (Procardia-XL) 60 MG tablet Take 1 (one) tablet by mouth once daily ondansetron, disintegrating, (Zofran ODT) 4 MG tablet Take 1 (one) tablet by mouth every 6 hours as needed for Nausea/Vomiting Allow tablet to dissolve on the tongue oxyCODONE-acetaminophe n (Percocet) 10-325 MG tablet Take 1 (one) tablet by mouth every 4 hours as needed for Pain polyethylene glycol (Gavilyte-C) 240 g solution Drink half of prep solution at 5pm the night before colonoscopy. Finish the prep at 4am the day of test. 4000 mL 09/16/2024 polyethylene glycol 3350 (Miralax) 17 GM/SCOOP powder Take a dose twice a day a week before your colonoscopy 238 g 09/16/2024 potassium chloride ER (Klor-Con M) 20 MEQ tablet Take 2 (two) tablets by mouth once daily 06/17/2023 propranolol (Inderal) 40 MG tablet Take 1 (one) tablet by mouth 2 times daily Relistor 150 MG tablet Take 1 (one) tablet by mouth daily before breakfast May increase to BID if constipation persist. 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 Urinary tract infection with hematuria Mass of spine Paraplegia (HCC) Pyelonephritis, acute Retroperitoneal abscess (HCC) Neurogenic bladder Fistula Urinary incontinence Past Medical History: Diagnosis Date Essential hypertension GERD (gastroesophageal reflux disease) Heterotopic calcification, postoperative Paraplegia (HCC) Family History Family history unknown: Yes Social History Socioeconomic History Marital status: Single Spouse name: Not on file Number of children: Not on file Years of education: Not on file Highest education level: Not on file Occupational History Not on file Tobacco Use Smoking status: Never Smokeless tobacco: Never Vaping Use Vaping status: Never Used Substance and Sexual Activity Alcohol use: Never Drug use: Yes Frequency: 7.0 times per week Types: Marijuana Comment: smokes marijuana daily Sexual activity: Not on file Other Topics Concern Not on file Social History Narrative Not on file Social Determinants of Health Financial Resource Strain: Not on file Food Insecurity: Not on file Transportation Needs: Not on file Stress: Not on file Housing Stability: Not on file Past Surgical History: Procedure Laterality Date Cholecystectomy Cystostomy Leg Amputation, Below Knee Bilateral Allergies Allergen Reactions Metoclopramide Angioedema and Anaphylaxis No current facility-administered medications for this encounter. Current Outpatient Medications Medication Sig Dispense Refill acetaminophen (Tylenol) 500 MG capsule Take 1 (one) capsule by mouth every 6 hours as needed ascorbic acid (Vitamin C) 500 MG tablet Take 1 (one) tablet by mouth once daily bisacodyl EC (Dulcolax) 5 MG tablet Take 4 tablets orally at 2 nights before your colonoscopy. Take4 tablets orally at noon the day before your colonoscopy 8 tablet 0 bisacodyl EC 5 MG tablet Take 2 (two) tablets by mouth every other day as needed for Constipation busPIRone (BUSPAR) 10 MG tablet Take 7.5 mg by mouth 3 times daily cloNIDine (Catapres) 0.2 MG tablet Take 1 (one) tablet by mouth 2 times daily cloNIDine (Catapres) 0.3 MG/24HR patch Apply 1 (one) patch to skin every 7 days cyclobenzaprine (FLEXERIL) 10 MG tablet Take 0.5 (one-half) tablet by mouth 3 times daily as neededfor Muscle Spasms fentaNYL 25 MCG/HR, fentaNYL 50 MCG/HR 75 mcg by Apply externally route as directed Every 4 days. furosemide (Lasix) 20 MG tablet Take 1 (one) tablet by mouth 2 times daily gabapentin (Neurontin) 100 MG capsule Take 1 (one) capsule by mouth 3 times daily magnesium citrate solution Drink at 5pm 2 nights before your colonoscopy 300 mL 0 midodrine (Proamatine) 5 MG tablet Take 1 (one) tablet by mouth 2 times daily naloxone HCl (Narcan) 4 MG/0.1ML nasal spray [place] 1 (one) spray into the nose as needed NIFEdipine CR osmotic 24hr (Procardia-XL) 60 MG tablet Take 1 (one) tablet by mouth once daily ondansetron, disintegrating, (Zofran ODT) 4 MG tablet Take 1 (one) tablet by mouth every 6 hours asneeded for Nausea/Vomiting Allow tablet to dissolve on the tongue oxyCODONE-acetaminophen (Percocet) 10-325 MG tablet Take 1 (one) tablet by mouth every 4 hours as needed for Pain polyethylene glycol (Gavilyte-C) 240 g solution Drink half of prep solution at 5pm the night beforecolonoscopy. Finish the prep at 4am the day of test. 4000 mL 0 polyethylene glycol 3350 (Miralax) 17 GM/SCOOP powder Take a dose twice a day a week before your colonoscopy 238 g 0 potassium chloride ER (Klor-Con M) 20 MEQ tablet Take 2 (two) tablets by mouth once daily propranolol (Inderal) 40 MG tablet Take 1 (one) tablet by mouth 2 times daily Relistor 150 MG tablet Take 1 (one) tablet by mouth daily before breakfast May increase to BID if constipation persist. spironolactone (Aldactone) 25 MG tablet Take 1 (one) tablet by mouth 2 times daily traMADol (Ultram) 50 MG tablet Take 1 (one) tablet by mouth every 8 hours as needed for Pain Review of systems: Chest pain: No. Shortness of breath: No. Review of systems otherwise negative. Physical Exam: There were no vitals taken for this visit. GENERAL: The patient is alert, oriented and in no apparent distress. HEENT: Neck supple, posterior pharynx is clear. LUNGS: Lungs are clear to auscultation. CVS: Heart sounds are normal, no murmurs. ABDOMEN: Soft, no tenderness, masses or organomegaly. EXTREMITIES: Normal. NEURO: Non-focal. Sedation Plan: Monitored Anesthesia Care (MAC) by the anesthesia team. Procedure Plan: Based on the above assessment, we will perform the procedures indicated above. I have discussed the plan, risks, benefits and alternatives with the patient or guardian. When assessment above was not obtained immediately before the procedure, I have reassessed this patient and there are no changes. Azar Begum MD [facility] documented in this encounter Plan of Treatment Upcoming Encounters Date Type Department Care Team (Late st Contact Info) Description 11/16/2024 8:30 AM [facility] Office Visit [facility] - [address] [address] documented as of this encounter Goals Goal Patient Goal Type Associated Problems Recent Progress Patient-Stated? Author Medication Management General On track( 024 10:53 AM CDT) Sandy hCurchill, RN Note: Expected end date: Ongoing Interventions: Take all medications as prescribed Let your doctor know right away about any changes in your medications Make sure to request a refill of your medication at least one week prior to your last dose documented as of this encounter Procedures Procedure Name Priority Date/Time Associated Diagnosis Comments AK COLONOSCOPY, DIAGNOSTIC 09/25/2024 1:16 PM [facility] Other constipation XR ABDOMEN KUB PORTABLE STAT 09/25/2024 1:14 PM [facility] Constipation, unspecified constipation type ENDOSCOPY, COLON, DIAGNOSTIC Routine 09/25/2024 12:25 PM [facility] documented in this encounter Results * XR Abdomen Kub Portable (09/25/2024 1:14 PM [facility]) Anatomical Region Laterality Modality Abdomen Digital Radiogra phy 09/25/2024 1:14 PM [facility] Impressions 09/25/2024 6:16 PM [facility] IMPRESSION: Nonobstructive bowel gas pattern. Mild colonic stool burden. > Dictated by Nidhi Hou MD, (resident manager). Myles Meeks MD have personally reviewed and interpreted this examination/study. > Interpreting Provider: Myles Lees MD on 09/25/2024 6:16 PM Narrative 09/25/2024 6:16 PM [facility] PROCEDURE: ??XR ABDOMEN KUB PORTABLE DATE/TIME OF EXAM: ??09/25/2024 1:14 PM CLINICAL INFORMATION: None relevant/not provided if blank. Indication: K59.00: Constipation, unspecified constipation type COMPARISON: CT abdomen pelvis without contrast from 11/17/2023. FINDINGS: *Surgical clips in the right upper quadrant. *Central venous catheter is partially visualized, tip terminates in the right atrium. Single view of the abdomen demonstrates a nonspecific bowel gas pattern with no evidence of obstruction. Mild colonic stool burden. No mass effect or pathologic calcifications. No acute osseous abnormalities. Procedure Note Myles Lees MD - 09/25/2024 PROCEDURE: XR ABDOMEN KUB PORTABLE DATE/TIME OF EXAM: 09/25/2024 1:14 PM CLINICAL INFORMATION: None relevant/not provided if blank. Indication: K59.00: Constipation, unspecified constipation type COMPARISON: CT abdomen pelvis without contrast from 11/17/2023. FINDINGS: *Surgical clips in the right upper quadrant. *Central venous catheter is partially visualized, tip terminates in the right atrium. Single view of the abdomen demonstrates a nonspecific bowel gas pattern with no evidence of obstruction. Mild colonic stool burden. No masseffect or pathologic calcifications. No acute osseous abnormalities. IMPRESSION: Nonobstructive bowel gas pattern. Mild colonic stool burden. > Dictated by Nidhi Hou MD, (resident manager). Myles Meeks MD have personally reviewed and interpreted this examination/study. > Interpreting Provider: Myles Lees MD on 09/25/2024 6:16 PM Azar Begum MD DIAGNOSTIC PEGGY GING ORDERABLES * ENDOSCOPY, COLON, DIAGNOSTIC (09/25/2024 12:25 PM [facility]) Report Endoscopy POC Endoscopy Department Report _ Patient Name: Shawn Casey ? Procedure Date: 09/25/2024 12:25 PM ?Date of : 1985 Classification: Outpatient ?Gender: Male Ethnicity: Not or ? Race: Black or _ Providers: ?Azar Begum Referring : ? Rick Carpio (Referring MD) Procedure: ?Colonoscopy Indications: ?Screening for colorectal malignant neoplasm Medications: ?Propofol per Anesthesia Description of Procedure: After I obtained informed consent, the scope was ?passed under direct vision. Throughout the ?procedure, the patient's blood pressure, pulse, and ?oxygen saturations were monitored continuously. The ?Colonoscope was introduced. The scope was advanced ?to the rectum before the procedure was aborted due ?to hard stools in the rectum. Medications were ?given. ? Findings: ? Extensive amounts of solid stool was found at the anus and in the ? rectum, precluding visualization. ? Sacral decubitus ulcers noted. ? Estimated Blood Loss: ? Estimated blood loss: none. Impression: ? - Stool at the anus and in the rectum. ?- No specimens collected. Recommendation: ? - Repeat colonoscopy at next available appointment ?(within 3 months). ?- Extended prep with 4 days of liquid diet with mag ?citrate bid for 2 days and prep. ? Procedure Code(s): ? --- Professional --- ? 77472, 53, Colonoscopy, flexible; diagnostic, including collection of ? specimen(s) by brushing or washing, when performed (separate procedure) Diagnosis Code(s): ?--- Professional --- ?Z12.11, Encounter for screening for malignant ?neoplasm of colon CPT copyright 2021 [employer]. All rights reserved. The codes documented in this report are preliminary and upon body press operator review may be revised to meet current compliance requirements. Azar Begum, 09/25/2024 1:40:42 PM Note Initiated On: 09/25/2024 12:25 PM Number of Addenda: 0 ? [facility] ? [address] [place] [address] [facility] 09/25/2024 12:2 5 PM [facility] Azar Begum MD GI PROCEDURE O RDERABLES Performing Organization Address City/State/[facility] Co de Phone Number [facility] documented in this encounter Visit Diagnoses Diagnosis Constipation, unspecified constipation type- Primary documented in this encounter Administered Medications Inactive Administered Medications - up to 3 most recent administrations Medication Order MAR Action Action Date Dose Rate Site 0.9% NaCl infusion at 20 mL/hr, Intravenous, CONTINUOUS, Starting on Wed09/25/24 at 1215, Until Wed09/25/24 at 1537, Pre-procedure (GI) $ New Bag/Syringe 09/25/2024 1:09 PM [facility] 2 0 mL/hr 0.9% NaCl injection 3 mL 3 mL, Intracatheter, PRE-PROCEDURE MULTIPLE, Starting on Wed09/25/24 at 1213, Until Wed09/25/24 at 1537, For Saline Lock flushes if one is inserted for Bronchoscopy/Endoscopy procedure., Pre-procedure (GI) documented in this encounter Active and Recently Administered Medications Times are shown in [facility]. Scheduled Medication Order 09/23/2024 09/24/2024 09/25/2024 0.9% NaCl injection 3 mL 3 mL, Intracatheter, PRE-PROCEDURE MULTIPLE, Starting on Wed09/25/24 at 1213, Until Wed09/25/24 at 1537, For Saline Lock flushes if one is inserted for Bronchoscopy/Endoscopy procedure., Pre-procedure (GI) Continuous Medication Order 09/23/2024 09/24/2024 09/25/2024 0.9% NaCl infusion at 20 mL/hr, Intravenous, CONTINUOUS, Starting on Wed09/25/24 at 1215, Until Wed09/25/24 at 1537, Pre-procedure (GI) 1309 ($ New Bag/Syri nge - Provider: Micaela Roa RN)1335 (Stopped - Provider: Chula Walker APRN-[employer] MECHANIC) documented in this encounter Additional Health Concerns Infection Onset Date Last Indicated Resolved Time ESBL GNR 11/17/2023 11/17/2023 MDRO 11/17/2023 11/17/2023 documented as of this encounter Care Teams Rn Assessment Relationship Specialty Start Date End Date Rick Carpio MD [address] [place] [phone] PCP - General Internal Medicine 06/29/24 documented as of this encounter
--- OUTSIDE RECORDS SUMMARY | 2024-11-11 02:04 | XMS_ITS | Encounter Summary ---
Author Organization [facility] Address [address] [place] [address] Care Team Providers Care Oenologist Name Role Phone Rick Carpio MD Primary Care Provider + [phone] Reason for Visit * Reason Onset Date Comments Appointment 10/02/2024 Encounter Details Date Type Department Care Team (Late st Contact Info) Description 10/02/2024 Telephone [facility] - Centralized Scheduling [address] [place] [phone] Sabi Payne MD [address] [facility] [address] [place] [address] Appointment Social History Tobacco Use Types Packs/Day Years [...] No 09/25/2024 documented as of this encounter Miscellaneous Notes * Telephone Encounter - Destinee William - 10/02/2024 11:32 AM CST Spoke with patient to offer appt per Sri for 10/24 @ 11am. Pt is currently admitted and not sure when discharging. Will call back to tesfaye. 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 Author Medication Management General On track( 024 10:53 AM CDT) No Sandy Nayak, RN Note: Expected end date: Ongoing Interventions: Take all medications as prescribed Let your doctor know right away about any changes in your medications Make sure to request a refill of your medication at least one week prior to your last dose documented as of this encounter Visit Diagnoses Not on filedocumented in this encounter Additional Health Concerns Infection Onset Date Last Indicated Resolved Time ESBL GNR 11/17/2023 11/17/2023 MDRO 11/17/2023 11/17/2023 documented as of this encounter Care Teams Oenologist Relationship Specialty Start Date End Date Rick Carpio MD [address] [place] [phone] PCP - General Internal Medicine 06/29/24 documented as of this encounter
--- OUTSIDE RECORDS SUMMARY | 2024-11-11 02:04 | XMS_ITS | Patient Health Summary ---
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 dated 08/10/2019, outside hospital CT abdomen pelvis dated 08/09/2019-[place], [place]. FINDINGS: Corresponding to the expansile lytic lesion at the lumbosacral junction seen on CT examinations, there is a solid enhancing mass at L5-S1 with heterogeneous T2 hypointense and T1 hyperintense signal intensity on the precontrast images. The epicenter of the mass is the S1 vertebral body. The mass extends anteriorly and cephalocaudal to blend into anterior aspect of L5 vertebral body after replacing the bridging syndesmophytes, extending through the anterior aspect of L5-S1 disc space. The visible portion of L5-S1 disc has heterogeneous signal intensity which may indicate involvement by the mass. The CT images demonstrate lytic appearance of the mass with a thin calcified margin and minimal internal calcified septations. The mass also extends in the bilateral L5-S1 neural foramina, theventral and dorsal epidural space of central canal causing severe compression of the thecal sac from L3 through S2. The mass also involves the posterior complex and the bilateral facet joints at L5-S1 level. The mass extends caudally along the anterior aspect of the S2 vertebral body. There are abnormal marrow T2 hyperintense signal intensity and enhancement of the L4, L5, S2 and S3 as well as minimally L3 vertebral bodies. There are mildly enhancing T2 hyperintense signal changes of the left iliac bone adjacent to the sacroiliac joint, however, no visibleextension of the mass through the sacroiliac joint is seen. The MRI images and the CT images demonstrate diffuse idiopathic skeletal hyperostosis of the entire lumbar spine. No significant misregistration artifact is identified due to the IVC filter. The vertebral bodies and the intervertebral disc appear normal pqF58-C0, L1-L2, and L2-L3 levels. No posterior disc herniation or bulging is identified. IMPRESSION: 1. The known expansile lytic mass of sacrum is epicentered at S1 and extends to the ventral and dorsal epidural space of the central canal, severely compressing the thecal sac from L3 through S2. It also extends into bilateral L5-S1 neural foramina, L5-S1 facets, anterior aspect ofL5 vertebral body and along the ventral aspect of S2 vertebral body. 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 2. Abnormal marrow signal intensity and enhancement at L3, L4, S2, andS3 vertebral bodies, concerning for neoplasm infiltration. Dictated by Millie Epstein MD (radiology scheduler). I, Dr. LEESA SOW have personally reviewed and interpreted this examination/study. This report was electronically signed by LEESA SOW on 08/11/2019 2:45 PM . Blayne Miller MD MR ORDERABLES * TYPE + SCREEN PANEL (08/10/2019 8:52 AM CDT) Antibody Screen NEG 9 10:05 AM CDT [facility] BLOOD B[facility] LAB ABO Rh A POS 08/10/2019 10:05 AM CDT [facility] BLOOD [facility] LAB Blood Bank BLOOD SPECIMEN / Unknown Lab Venipuncture / Unknown 08/10/2019 8:52 AM CDT 08/10/2019 9:14 AM CDT Tomás Lehman MD LAB - BLOOD BANK ORD ERABLES [facility] BLOOD [facility] LAB [address] * (ABNORMAL) C-REACTIVE PROTEIN (08/10/2019 2:48 AM CDT) C-Reactive Protein 6.3(H) <=0.5 mg/dL 08/10/2019 3:14 AM CDT [facility] Blood BLOOD SPECIMEN / Unknown Venipuncture / Unknown 08/10/2019 2:48 AM CDT 08/10/2019 2:56 AM CDT Larua Brumfield MD LAB - CHEMISTRY ORDE RABLES [address] [phone] * (ABNORMAL) TRANSFERRIN (08/10/2019 2:48 AM CDT) Transferrin 163(L) 174 - 382 mg/dL 08/10/2019 8:04 AM CDT [facility] Transferrin Saturation % 16 16 - 50 % 08/10/2019 8:04 AM CDT [facility] Blood BLOOD SPECIMEN / Unknown Lab Venipuncture / Unknown 08/10/2019 2:48 AM CDT 08/10/2019 7:46 AM CDT Tomás Lehman MD LAB - CHEMISTRY [facility] Performing Organization Address [facility]/ZIP Co de Phone Number [address] [phone] * (ABNORMAL) ERYTHROCYTE SEDIMENTATION RATE (08/10/2019 2:48 AM CDT) Erythrocyte Sedimentation Rate Westergren >130(H) 0 - 15 MM/HR 08/10/2019 3:27 AM CDT [facility] Blood BLOOD SPECIMEN / Unknown Venipuncture / Unknown 08/10/2019 2:48 AM CDT 08/10/2019 2:56 AM CDT Laura Brumfield MD LAB - HEMATOLOGY ORD ERABLES [address] [phone] * (ABNORMAL) COMPREHENSIVE METABOLIC PANEL (08/10/2019 2:48 AM CDT) BUN 8 7 - 26 mg/dL 08/10/2019 3:12 AM CDT [facility] Creatinine 0.7 0.6 - 1.2 mg/dL 08/10/2019 3:12 AM CDT [facility] Sodium 138 136 - 145 mmol/L 08/10/2019 3:12 AM CDT [facility] Potassium 3.2(L) 3.5 - 4.5 mmol/L 08/10/2019 3:12 AM [facility] Chloride 106 98 - 107 mmol/L 08/10/2019 3:12 AM [facility] CO2 24 22 - 29 mmol/L 08/10/2019 3:12 AM [facility] Glucose 82 70 - 115 mg/dL 08/10/2019 3:12 AM [facility] Calcium 8.2(L) 8.4 - 10.2 mg/dL 08/10/2019 3:12 AM [facility] Protein Total 7.5 6.0 - 8.3 g/dL 08/10/2019 3:12 AM [facility] Albumin 3.0(L) 3.4 - 5.0 g/dL 08/10/2019 3:12 AM [facility] Bilirubin Total 0.6 0.2 - 1.2 mg/dL 08/10/2019 3:12 AM [facility] Alkaline Phosphatase 110 40 - 150 Units/L 08/10/2019 3:12 AM [facility] ALT 14 0 - 55 Units/L 08/10/2019 3:12 AM [facility] AST 13 5 - 34 Units/L 08/10/2019 3:12 AM [facility] Anion Gap 11 8 - 18 08/10/2019 3:12 AM [facility] BUN/Creatinine Ratio 11 7 - 23 08/10/2019 3:12 AM [facility] Osmolality Calculated 283 270 - 300 mOsm/kg 08/10/2019 3:12 AM [facility] Albumin/Globulin Ratio 0.7(L) 1.1 - 2.3 08/10/2019 3:12 AM [facility] eGFR >60 >60 mL/min/1.7 3 m2 08/10/2019 3:12 AM [facility] Blood BLOOD SPECIMEN / Unknown Venipuncture / Unknown 08/10/2019 2:48 AM CDT 08/10/2019 2:56 AM CDT Laura Brumfield MD LAB - CHEMISTRY [facility] Organization Address City/State/ZIP Co de Phone Number [address] [phone] * (ABNORMAL) IRON BLOOD (08/10/2019 2:48 AM CDT) Iron 32(L) 50 - 175 mcg/dL 08/10/2019 8:04 AM CDT [facility] Blood BLOOD SPECIMEN / Unknown Lab Venipuncture / Unknown 08/10/2019 2:48 AM CDT 08/10/2019 7:46 AM CDT Tomás Lehman MD LAB - CHEMISTRY [facility] Performing Organization Address [facility]/ZIP Co de Phone Number [address] [phone] * FERRITIN (08/10/2019 2:48 AM CDT) Ferritin 226 22 - 275 ng/mL 08/10/2019 8:24 AM CDT [facility] Blood BLOOD SPECIMEN / Unknown Lab Venipuncture / Unknown 08/10/2019 2:48 AM CDT 08/10/2019 7:46 AM CDT Tomás Lehman MD LAB - CHEMISTRY [facility] [address] [phone] * CT LUMBAR SPINE WO CONTRAST (08/10/2019 1:02 AM CDT) Anatomical Region Laterality Modality Spine Computed Tomogra phy 08/10/2019 8:26 AM CDT Impressions 08/10/2019 5:56 PM CDT IMPRESSION: 1.Large expansile, destructive, lytic sacral mass measuring approximately 11.4 x 8.7 x 10.2 cm, with extensions as outlined. Findings may represent a chordoma, or chondrosarcoma. Infectious process cannot be excluded. Other differential considerations cannot be excluded. Recommend MR without and with contrast of the pelvis for further evaluation. 2.No acute fracture or metastatic disease of the cervical and thoracic spine. This report was approved ??by Hakeem Beckman ?? on 08/10/2019 5:56 PM . I, Dr. MISA HALL have personally reviewed and interpreted this examination/study. This report was electronically signed by MISA HALL ??on 08/10/2019 5:56 PM . Narrative 08/10/2019 5:[address] CERVICAL SPINE WO CONTRAST, CT THORACIC SPINE WO CONTRAST, CT LUMBAR SPINE WO CONTRAST DATE: 08/10/2019 1:03 AM EXAMINATION: 1.CT of the cervical spine without contrast 2.CT of the thoracic spine without contrast 3.CT of the lumbar spine without contrast HISTORY: Spinal mass TECHNIQUE: CT of the cervical, thoracic, and lumbar spine was performed without contrast according to standard protocol. COMPARISON: CT abdomen pelvis with contrast from outside hospital dated 08/09/2019 FINDINGS: Cervical spine: There is straightening of the normal cervical lordosis. Vertebral bodies are normal in height without evidence of acute fracture. Nuchal calcification is noted. The craniocervical junction is normal. There is mild degenerative disc disease. Multilevel central canal stenosis related to disc osteophyte complexes. There are varying degrees of minimal facet osteoarthritis. There are varying degrees of mild uncovertebral joint osteoarthritis No neural foraminal stenosis is seen. No significant soft tissue abnormality is identified. Thoracic spine: The alignment is normal. Vertebral bodies are normal in height without evidence of acute fracture. There is moderate degenerative disc disease and disc bulge at T2-3 resulting in mild central canal stenosis. There is posterior spinous ligament calcification. There is mild facet osteoarthritis at multiple levels. No neural foraminal stenosis is seen. No soft tissue abnormality is identified. Lumbar spine: A large expansile, lytic, destructive mass centered elieser-inferiorly to the S1/S2 vertebral bodies with associated soft tissue density and scattered internal calcification. The mass measures approximately 11.4 x 8.7 x 10.2 cm, TV, AP, and CC (series 8 604, image 105, and series 608, image 53). There is erosion of the inferior aspect of L5 vertebral body and destruction of the sacrum. There is extension to the right sacroiliac joint and right iliac bone. The posterior elements of the sacrum are sclerotic. The mass extend into the central canal with moderate stenosis. There is extension of the mass into the left upper sacral neural foramina. There is extension into the pelvic cavity. Fat planes between the mass and surrounding vessels and organs are maintained. Scattered small pelvic lymph nodes are partially imaged. There is straightening of the normal lumbar lordosis. The alignment is otherwise maintained. There is mild degenerative disc disease. The lumbar spinal canal is developmentally narrowed with superimposed multilevel degenerative changes. There is advanced facet osteoarthritis at multiple levels. There is partial fusion of the sacroiliac joint on the left. Multilevel neural foraminal stenosis noted. 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 An inferior vena cava filter is present with calcified thrombus trapped within it. Multiple large bladder stones are incidentally imaged. Procedure Note Misa Hall MD - 08/10/2019 CT CERVICAL SPINE WO CONTRAST, CT THORACIC SPINE WO CONTRAST, CT LUMBAR SPINE WO CONTRAST DATE: 08/10/2019 1:03 AM EXAMINATION: 1.CT of the cervical spine without contrast 2.CT of the thoracic spine without contrast 3.CT of the lumbar spine without contrast HISTORY: Spinal mass TECHNIQUE: CT of the cervical, thoracic, and lumbar spine was performed without contrast according to standard protocol. COMPARISON: CT abdomen pelvis with contrast from outside hospital dated 08/09/2019 FINDINGS: Cervical spine: There is straightening of the normal cervical lordosis. Vertebral bodies are normal in height without evidence of acute fracture. Nuchal calcification is noted. The craniocervical junction is normal. There is mild degenerative disc disease. Multilevel central canal stenosisrelated to disc osteophyte complexes. There are varying degrees of minimal facet osteoarthritis. There are varying degrees of mild uncovertebral joint osteoarthritis No neural foraminal stenosis is seen. No significant soft tissue abnormality is identified. Thoracic spine: The alignment is normal. Vertebral bodies are normal in height without evidence of acute fracture. There is moderate degenerative disc disease and disc bulge at T2-3 resulting in mild central canal stenosis. Thereis posterior spinous ligament calcification. There is mild facet osteoarthritis at multiple levels. No neural foraminal stenosis is seen. No soft tissue abnormality is identified. Lumbar spine: A large expansile, lytic, destructive mass centered elieser-inferiorly to the S1/S2 vertebral bodies with associated soft tissue density and scattered internal calcification. The mass measures approximately 11.4 x 8.7 x 10.2 cm, TV, AP, and CC (series 8 604, image 105, and series 608, image 53). There is erosion of the inferior aspect of L5 vertebral body and destruction of the sacrum. There is extension to the rightsacroiliac joint and right iliac bone. The posterior elements of the sacrum are sclerotic. The mass extend into the central canal with moderatestenosis. There is extension of the mass into the left upper sacral neuralforamina. There is extension into the pelvic cavity. Fat planes between the massand surrounding vessels and organs are maintained. Scattered small pelvic lymph nodes are partially imaged. There is straightening of the normal lumbar lordosis. The alignment is otherwise maintained. There is mild degenerative disc disease. Thelumbar spinal canal is developmentally narrowed with superimposed multilevel degenerative changes. There is advanced facet osteoarthritis at multiple levels. There is partial fusion of the sacroiliac joint on the left. Multilevel neural foraminal stenosis noted. Ankylosis of the bilateralhip joints is partially imaged. An inferior vena cava filter is present with calcified thrombus trapped within it. Multiple large bladder stones are incidentally imaged. IMPRESSION: 1.Large expansile, destructive, lytic sacral mass measuringapproximately 11.4 x 8.7 x 10.2 cm, with extensions as outlined. Findings mayrepresent a chordoma, or chondrosarcoma. Infectious process cannot be excluded. Other differential considerations cannot be excluded. Recommend MRwithout and with contrast of the pelvis for further evaluation. 2.No acute fracture or metastatic disease of the cervical and thoracic spine. This report was approved by Hakeem Beckman on 08/10/2019 5:56 PM. I, Dr. MISA HALL have personally reviewed and interpreted this examination/study. This report was electronically signed by MISA HALL on08/10/2019 5:56 PM . Gia Jimenez MD CT ORDERABLES * CT THORACIC SPINE WO CONTRAST (08/10/2019 1:02 AM CDT) Anatomical Region Laterality Modality Spine Computed Tomogra phy 08/10/2019 8:26 AM CDT Impressions 08/10/2019 5:56 PM CDT IMPRESSION: 1.Large expansile, destructive, lytic sacral mass measuring approximately 11.4 x 8.7 x 10.2 cm, with extensions as outlined. Findings may represent a chordoma, or chondrosarcoma. Infectious process cannot be excluded. Other differential considerations cannot be excluded. Recommend MR without and with contrast of the pelvis for further evaluation. 2.No acute fracture or metastatic disease of the cervical and thoracic spine. This report was approved ??by Hakeem Beckman ?? on 08/10/2019 5:56 PM . I, Dr. MISA HALL have personally reviewed and interpreted this examination/study. This report was electronically signed by MISA HALL ??on 08/10/2019 5:56 PM . Narrative 08/10/2019 5:[address] CERVICAL SPINE WO CONTRAST, CT THORACIC SPINE WO CONTRAST, CT LUMBAR SPINE WO CONTRAST DATE: 08/10/2019 1:03 AM EXAMINATION: 1.CT of the cervical spine without contrast 2.CT of the thoracic spine without contrast 3.CT of the lumbar spine without contrast HISTORY: Spinal mass TECHNIQUE: CT of the cervical, thoracic, and lumbar spine was performed without contrast according to standard protocol. COMPARISON: CT abdomen pelvis with contrast from outside hospital dated 08/09/2019 FINDINGS: Cervical spine: There is straightening of the normal cervical lordosis. Vertebral bodies are normal in height without evidence of acute fracture. Nuchal calcification is noted. The craniocervical junction is normal. There is mild degenerative disc disease. Multilevel central canal stenosis related to disc osteophyte complexes. There are varying degrees of minimal facet osteoarthritis. There are varying degrees of mild uncovertebral joint osteoarthritis No neural foraminal stenosis is seen. No significant soft tissue abnormality is identified. Thoracic spine: The alignment is normal. Vertebral bodies are normal in height without evidence of acute fracture. There is moderate degenerative disc disease and disc bulge at T2-3 resulting in mild central canal stenosis. There is posterior spinous ligament calcification. There is mild facet osteoarthritis at multiple levels. No neural foraminal stenosis is seen. No soft tissue abnormality is identified. Lumbar spine: A large expansile, lytic, destructive mass centered elieser-inferiorly to the S1/S2 vertebral bodies with associated soft tissue density and scattered internal calcification. The mass measures approximately 11.4 x 8.7 x 10.2 cm, TV, AP, and CC (series 8 604, image 105, and series 608, image 53). There is erosion of the inferior aspect of L5 vertebral body and destruction of the sacrum. There is extension to the right sacroiliac joint and right iliac bone. The posterior elements of the sacrum are sclerotic. The mass extend into the central canal with moderate stenosis. There is extension of the mass into the left upper sacral neural foramina. There is extension into the pelvic cavity. Fat planes between the mass and surrounding vessels and organs are maintained. Scattered small pelvic lymph nodes are partially imaged. There is straightening of the normal lumbar lordosis. The alignment is otherwise maintained. There is mild degenerative disc disease. The lumbar spinal canal is developmentally narrowed with superimposed multilevel degenerative changes. There is advanced facet osteoarthritis at multiple levels. There is partial fusion of the sacroiliac joint on the left. Multilevel neural foraminal stenosis noted. 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 An inferior vena cava filter is present with calcified thrombus trapped within it. Multiple large bladder stones are incidentally imaged. Procedure Note Misa Hall MD - 08/10/2019 CT CERVICAL SPINE WO CONTRAST, CT THORACIC SPINE WO CONTRAST, CT LUMBAR SPINE WO CONTRAST DATE: 08/10/2019 1:03 AM EXAMINATION: 1.CT of the cervical spine without contrast 2.CT of the thoracic spine without contrast 3.CT of the lumbar spine without contrast HISTORY: Spinal mass TECHNIQUE: CT of the cervical, thoracic, and lumbar spine was performed without contrast according to standard protocol. COMPARISON: CT abdomen pelvis with contrast from outside hospital dated 08/09/2019 FINDINGS: Cervical spine: There is straightening of the normal cervical lordosis. Vertebral bodies are normal in height without evidence of acute fracture. Nuchal calcification is noted. The craniocervical junction is normal. There is mild degenerative disc disease. Multilevel central canal stenosisrelated to disc osteophyte complexes. There are varying degrees of minimal facet osteoarthritis. There are varying degrees of mild uncovertebral joint osteoarthritis No neural foraminal stenosis is seen. No significant soft tissue abnormality is identified. Thoracic spine: The alignment is normal. Vertebral bodies are normal in height without evidence of acute fracture. There is moderate degenerative disc disease and disc bulge at T2-3 resulting in mild central canal stenosis. Thereis posterior spinous ligament calcification. There is mild facet osteoarthritis at multiple levels. No neural foraminal stenosis is seen. No soft tissue abnormality is identified. Lumbar spine: A large expansile, lytic, destructive mass centered elieser-inferiorly to the S1/S2 vertebral bodies with associated soft tissue density and scattered internal calcification. The mass measures approximately 11.4 x 8.7 x 10.2 cm, TV, AP, and CC (series 8 604, image 105, and series 608, image 53). There is erosion of the inferior aspect of L5 vertebral body and destruction of the sacrum. There is extension to the rightsacroiliac joint and right iliac bone. The posterior elements of the sacrum are sclerotic. The mass extend into the central canal with moderatestenosis. There is extension of the mass into the left upper sacral neuralforamina. There is extension into the pelvic cavity. Fat planes between the massand surrounding vessels and organs are maintained. Scattered small pelvic lymph nodes are partially imaged. There is straightening of the normal lumbar lordosis. The alignment is otherwise maintained. There is mild degenerative disc disease. Thelumbar spinal canal is developmentally narrowed with superimposed multilevel degenerative changes. There is advanced facet osteoarthritis at multiple levels. There is partial fusion of the sacroiliac joint on the left. Multilevel neural foraminal stenosis noted. Ankylosis of the bilateralhip joints is partially imaged. An inferior vena cava filter is present with calcified thrombus trapped within it. Multiple large bladder stones are incidentally imaged. IMPRESSION: 1.Large expansile, destructive, lytic sacral mass measuringapproximately 11.4 x 8.7 x 10.2 cm, with extensions as outlined. Findings mayrepresent a chordoma, or chondrosarcoma. Infectious process cannot be excluded. Other differential considerations cannot be excluded. Recommend MRwithout and with contrast of the pelvis for further evaluation. 2.No acute fracture or metastatic disease of the cervical and thoracic spine. This report was approved by Hakeem Beckman on 08/10/2019 5:56 PM. I, Dr. MISA HALL have personally reviewed and interpreted this examination/study. This report was electronically signed by MISA HALL on08/10/2019 5:56 PM . Laura Brumfield MD CT ORDERABLES * CT CERVICAL SPINE NON CONTRAST (08/10/2019 1:02 AM CDT) Anatomical Region Laterality Modality Spine Computed Tomogra phy 08/10/2019 8:26 AM CDT Impressions 08/10/2019 5:56 PM CDT IMPRESSION: 1.Large expansile, destructive, lytic sacral mass measuring approximately 11.4 x 8.7 x 10.2 cm, with extensions as outlined. Findings may represent a chordoma, or chondrosarcoma. Infectious process cannot be excluded. Other differential considerations cannot be excluded. Recommend MR without and with contrast of the pelvis for further evaluation. 2.No acute fracture or metastatic disease of the cervical and thoracic spine. This report was approved ??by Hakeem Beckman ?? on 08/10/2019 5:56 PM . I, Dr. MISA HALL have personally reviewed and interpreted this examination/study. This report was electronically signed by MISA HALL ??on 08/10/2019 5:56 PM . Narrative 08/10/2019 5:[address] CERVICAL SPINE WO CONTRAST, CT THORACIC SPINE WO CONTRAST, CT LUMBAR SPINE WO CONTRAST DATE: 08/10/2019 1:03 AM EXAMINATION: 1.CT of the cervical spine without contrast 2.CT of the thoracic spine without contrast 3.CT of the lumbar spine without contrast HISTORY: Spinal mass TECHNIQUE: CT of the cervical, thoracic, and lumbar spine was performed without contrast according to standard protocol. COMPARISON: CT abdomen pelvis with contrast from outside hospital dated 08/09/2019 FINDINGS: Cervical spine: There is straightening of the normal cervical lordosis. Vertebral bodies are normal in height without evidence of acute fracture. Nuchal calcification is noted. The craniocervical junction is normal. There is mild degenerative disc disease. Multilevel central canal stenosis related to disc osteophyte complexes. There are varying degrees of minimal facet osteoarthritis. There are varying degrees of mild uncovertebral joint osteoarthritis No neural foraminal stenosis is seen. No significant soft tissue abnormality is identified. Thoracic spine: The alignment is normal. Vertebral bodies are normal in height without evidence of acute fracture. There is moderate degenerative disc disease and disc bulge at T2-3 resulting in mild central canal stenosis. There is posterior spinous ligament calcification. There is mild facet osteoarthritis at multiple levels. No neural foraminal stenosis is seen. No soft tissue abnormality is identified. Lumbar spine: A large expansile, lytic, destructive mass centered elieser-inferiorly to the S1/S2 vertebral bodies with associated soft tissue density and scattered internal calcification. The mass measures approximately 11.4 x 8.7 x 10.2 cm, TV, AP, and CC (series 8 604, image 105, and series 608, image 53). There is erosion of the inferior aspect of L5 vertebral body and destruction of the sacrum. There is extension to the right sacroiliac joint and right iliac bone. The posterior elements of the sacrum are sclerotic. The mass extend into the central canal with moderate stenosis. There is extension of the mass into the left upper sacral neural foramina. There is extension into the pelvic cavity. Fat planes between the mass and surrounding vessels and organs are maintained. Scattered small pelvic lymph nodes are partially imaged. There is straightening of the normal lumbar lordosis. The alignment is otherwise maintained. There is mild degenerative disc disease. The lumbar spinal canal is developmentally narrowed with superimposed multilevel degenerative changes. There is advanced facet osteoarthritis at multiple levels. There is partial fusion of the sacroiliac joint on the left. Multilevel neural foraminal stenosis noted. 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 An inferior vena cava filter is present with calcified thrombus trapped within it. Multiple large bladder stones are incidentally imaged. Procedure Note Misa Hall MD - 08/10/2019 CT CERVICAL SPINE WO CONTRAST, CT THORACIC SPINE WO CONTRAST, CT LUMBAR SPINE WO CONTRAST DATE: 08/10/2019 1:03 AM EXAMINATION: 1.CT of the cervical spine without contrast 2.CT of the thoracic spine without contrast 3.CT of the lumbar spine without contrast HISTORY: Spinal mass TECHNIQUE: CT of the cervical, thoracic, and lumbar spine was performed without contrast according to standard protocol. COMPARISON: CT abdomen pelvis with contrast from outside hospital dated 08/09/2019 FINDINGS: Cervical spine: There is straightening of the normal cervical lordosis. Vertebral bodies are normal in height without evidence of acute fracture. Nuchal calcification is noted. The craniocervical junction is normal. There is mild degenerative disc disease. Multilevel central canal stenosisrelated to disc osteophyte complexes. There are varying degrees of minimal facet osteoarthritis. There are varying degrees of mild uncovertebral joint osteoarthritis No neural foraminal stenosis is seen. No significant soft tissue abnormality is identified. Thoracic spine: The alignment is normal. Vertebral bodies are normal in height without evidence of acute fracture. There is moderate degenerative disc disease and disc bulge at T2-3 resulting in mild central canal stenosis. Thereis posterior spinous ligament calcification. There is mild facet osteoarthritis at multiple levels. No neural foraminal stenosis is seen. No soft tissue abnormality is identified. Lumbar spine: A large expansile, lytic, destructive mass centered elieser-inferiorly to the S1/S2 vertebral bodies with associated soft tissue density and scattered internal calcification. The mass measures approximately 11.4 x 8.7 x 10.2 cm, TV, AP, and CC (series 8 604, image 105, and series 608, image 53). There is erosion of the inferior aspect of L5 vertebral body and destruction of the sacrum. There is extension to the rightsacroiliac joint and right iliac bone. The posterior elements of the sacrum are sclerotic. The mass extend into the central canal with moderatestenosis. There is extension of the mass into the left upper sacral neuralforamina. There is extension into the pelvic cavity. Fat planes between the massand surrounding vessels and organs are maintained. Scattered small pelvic lymph nodes are partially imaged. There is straightening of the normal lumbar lordosis. The alignment is otherwise maintained. There is mild degenerative disc disease. Thelumbar spinal canal is developmentally narrowed with superimposed multilevel degenerative changes. There is advanced facet osteoarthritis at multiple levels. There is partial fusion of the sacroiliac joint on the left. Multilevel neural foraminal stenosis noted. Ankylosis of the bilateralhip joints is partially imaged. An inferior vena cava filter is present with calcified thrombus trapped within it. Multiple large bladder stones are incidentally imaged. IMPRESSION: 1.Large expansile, destructive, lytic sacral mass measuringapproximately 11.4 x 8.7 x 10.2 cm, with extensions as outlined. Findings mayrepresent a chordoma, or chondrosarcoma. Infectious process cannot be excluded. Other differential considerations cannot be excluded. Recommend MRwithout and with contrast of the pelvis for further evaluation. 2.No acute fracture or metastatic disease of the cervical and thoracic spine. This report was approved by Hakeem Beckman on 08/10/2019 5:56 PM. I, Dr. MISA HALL have personally reviewed and interpreted this examination/study. This report was electronically signed by MISA HALL on08/10/2019 5:56 PM . Laura Brumfield MD CT ORDERABLES Care Teams Refrigerating Engineer Head Relationship Specialty Start Date End Date Rick Carpio MD [address] [place] [phone] PCP - General Internal Medicine 06/29/24
--- OUTSIDE RECORDS SUMMARY | 2024-11-11 02:04 | XMS_ITS | Encounter Summary ---
Author Organization [facility] Address [address] [place] [address] Care Team Providers Care Construction Plant Operator Name Role Phone Rick Carpio MD Primary Care Provider [phone] Reason for Visit * Auth/Cert (Routine) Specialty Diagnoses / Procedures Referred By Contac t Referred To Contact Diagnoses Other constipation Procedures [facility] COLONOSCOPY, DIAGNOSTIC COLONOSCOPY DIAGNOSTIC---extended 2 day prep COLONOSCOPY DIAGNOSTIC Referral ID Status Reason Start Date Expiration Date Visits Re quested Visits Authorized [id number] 1 1 Encounter Details Date Type Department Care Team (Late st Contact Info) Description 09/25/2024 12:30 PM [employer] - 09/25/2024 1:15 PM [employer] Surgery [facility] [address] [place] [address] Azar Begum MD [address] [place] [phone] COLONOSCOPY DIAGNOSTIC---extended 2 day prep----check portable KUB in pre op please!! Surgery Details Date/Time Status Location OR Service Patient Class Case Class Case Type Trauma Case? 09/25/2024 12:30 PM Posted [facility] Endoscopy ENDO 4 Gastroenterology Surgery Day Care Elective > 5 days Panel 1 Procedure LRB Anes Op Region Wound Class Comments COLONOSCOPY DIAGNOSTIC---extended 2 day prep----check portable KUB in pre op please!! N/A MAC NA procedure aborted - solid stool sacral ulcers - mepelex removd to access rectum and new dressing replacd after procedure replaced after procedure Surgeon Surgeon Role Service Panel Azar Begum MD Primary Gastroenterol ogy 1 documented in this encounter Social History Tobacco Use Types Packs/Day Years [...] Sign Reading Time Taken Comments Blood Pressure 98/58 09/25/2024 1:00 PM [employer] Pulse 93 09/25/2024 1:00 PM [employer] Temperature 36.7 ??C (98 ??F) 09/25/2024 12:45 PM [employer] Respiratory Rate 16 09/25/2024 1:00 PM [employer] Oxygen Saturation 89% 09/25/2024 1:00 PM [employer] Inhaled Oxygen Concentration - - Weight 132.5 kg (292 lb) 09/25/2024 12:41 PM [employer] Height 165.1 cm (5' 5 ) 09/25/2024 12:41 PM [employer] Body Mass Index 48.59 09/25/2024 12:41 PM [employer] documented in this encounter Functional Status Functional [...] naloxone HCl (Narcan) 4 MG/0.1ML nasal spray [place] 1 (one) spray into the nose as [...] naloxone HCl (Narcan) 4 MG/0.1ML nasal spray [place] 1 (one) spray into the nose as [...] there are no changes. Azar Begum MD AGE INSPECTOR [employer] documented in this encounter Plan of Treatment Upcoming Encounters Date Type Department Care Team (Late st Contact Info) Description 11/16/2024 8:30 AM [employer] Office Visit [facility] - GI [address] [place] [address] documented as of this encounter Goals Goal [...] Procedure Name Priority Date/Time Associated Diagnosis Comments [facility] COLONOSCOPY, DIAGNOSTIC 09/25/2024 1:16 PM [employer] Other constipation XR ABDOMEN KUB PORTABLE STAT 09/25/2024 1:14 PM [employer] Constipation, unspecified constipation type ENDOSCOPY, COLON, DIAGNOSTIC Routine 09/25/2024 12:25 PM [employer] documented in this encounter Results * XR Abdomen Kub Portable (09/25/2024 1:14 PM [employer]) Anatomical Region Laterality Modality Abdomen Digital Radiogra phy 09/25/2024 1:14 PM [employer] Impressions 09/25/2024 6:16 PM [employer] IMPRESSION: Nonobstructive bowel gas pattern. Mild colonic stool burden. > Dictated by Nidhi Hou MD, (chairman president and chief executive officer). IMyles MD have personally reviewed and interpreted this examination/study. > Interpreting Provider: Myles Lees MD on 09/25/2024 6:16 PM Narrative 09/25/2024 6:16 PM [employer] PROCEDURE: ??XR ABDOMEN KUB PORTABLE DATE/TIME OF [...] burden. > Dictated by Nidhi Hou MD, (chairman president and chief executive officer). I, Myles Lees MD have personally reviewed and interpreted this examination/study. > Interpreting Provider: Myles Lees MD on 09/25/2024 6:16 PM Azar Begum MD DIAGNOSTIC [facility] ORDERABLES * ENDOSCOPY, COLON, DIAGNOSTIC (09/25/2024 12:25 PM [employer]) Report Endoscopy POC Endoscopy Department Report _ Patient Name: Shawn Casey ? Procedure Date: 09/25/2024 12:25 PM ?Date of : 1985 Classification: Outpatient ?Gender: Male Ethnicity: Not or ? Race: Black or _ Providers: ?Azar Begum Referring MD: ? Rick Carpio (Referring MD) Procedure: ?Colonoscopy [...] Procedure Code(s): ? --- Professional --- ? 05722, 53, Colonoscopy, flexible; diagnostic, including collection of ? specimen(s) by brushing or washing, when performed (separate procedure) Diagnosis Code(s): ?--- Professional --- ?Z12.11, Encounter for screening for malignant ?neoplasm of colon CPT copyright 2021 [employer]. All rights reserved. The codes documented in this report are preliminary and upon corridor redevelopment manager review may be revised to meet current compliance requirements. Aazr Begum, 09/25/2024 1:40:42 PM Note Initiated On: 09/25/2024 12:25 PM Number of Addenda: 0 ? [facility] ? [address] [place] [address] [facility] 09/25/2024 12:2 5 PM [employer] Azar Begum MD GI PROCEDURE O RDERABLES [facility] documented in this encounter Visit Diagnoses Diagnosis Constipation, unspecified constipation type- Primary Other constipation documented in this encounter Administered Medications Inactive Administered Medications - up to 3 most recent administrations Medication Order MAR Action Action Date Dose Rate Site 0.9% NaCl infusion at 20 mL/hr, Intravenous, CONTINUOUS, Starting on Wed09/25/24 at 1215, Until Wed09/25/24 at 1537, Pre-procedure (GI) $ New Bag/Syringe 09/25/2024 1:09 PM [employer] 2 0 mL/hr 0.9% NaCl injection 3 mL 3 mL, Intracatheter, PRE-PROCEDURE MULTIPLE, Starting on Wed09/25/24 at 1213, Until 09/25/24 at 1537, For Saline Lock flushes if one is inserted for Bronchoscopy/Endoscopy procedure., Pre-procedure (GI) documented in this encounter Active and Recently Administered Medications Times are shown in [employer]. Scheduled Medication Order 09/23/2024 09/24/2024 09/25/2024 0.9% [...] Roa [phone])[id number] (Stopped - Provider: Chula Walker APRN-PRODUCTION GRAPHIC DESIGNER) documented in this encounter Additional Health Concerns Infection Onset Date Last Indicated Resolved Time ESBL GNR 11/17/2023 11/17/2023 MDRO 11/17/2023 11/17/2023 documented as of this encounter Care Teams Construction Plant Operator Relationship Specialty Start Date End Date Rick Carpio MD [address] [place] [phone] PCP - General Internal Medicine 06/29/24 documented as of this encounter
--- OUTSIDE RECORDS SUMMARY | 2024-11-11 02:04 | XMS_ITS | Referral Summary ---
Author Organization [facility] Address [address] [place] [address] Care Team Providers Care Manager Engine Name Role Phone Rick Carpio MD Primary Care Provider Source Comments [facility],non-owned Affiliates and Associated Physician Practices is amultiple site organization consisting of ambulatory clinics and hospital sitesin [place], [place], [place] and [place]. This disclosure is being madepursuant to the Care Everywhere program and may not contain all information available regarding this patient. Last updated 18.[facility] Encounters Date Type Department Care Team Description 10/02/2024 Telephone [facility] - Centralized Scheduling [address] [place] [address] Sabi Payne MD Appointment 09/25/2024 Travel 09/25/2024 1:21 PM DRUM PLATER Anesthesia Event [facility] [address] [place] [address] Dafne Heller MD Buchheit, Rachel E, APRN-GAUGER CHIEF 09/25/2024 12:30 PM DRUM PLATER - 09/25/2024 1:15 PM DRUM PLATER Surgery [facility] [address] [place] [address] Azar Begum MD COLONOSCOPY DIAGNOSTIC---extend ed 2 day prep----check portable KUB in pre op please!! 09/25/2024 11:40 AM DRUM PLATER - 09/25/2024 2:32 PM DRUM PLATER Hospital Encounter [facility] [address] [place] [address] Azar Begum MD Surgery General Discharge Disposition: Home or Self Care 09/20/2024 Patient Outreach [facility] [address] [place] [address] Wendy Loaiza RN 09/16/2024 Orders Only [facility] [address] [place] [address] Wendy Loaiza RN 08/11/2024 Patient Outreach [facility] [address] [place] [address] Wendy Loaiza, RN from Last 3 Months Allergies Active Allergy Reactions Criticality Noted Date Comments Metoclopramide Angioedema,Anaphylaxis High 9 Medications * Be aware that medications may not be up to date on this document. Alwaysverify current medications with the patient. Medication Sig Dispensed Refills Start Date End Date Status busPIRone (BUSPAR) 10 MG tablet Take 7.5 mg by mouth 3 times daily Active cyclobenzaprine (FLEXERIL) 10 MG tablet Take 0.5 (one-half) tablet by mouth 3 times daily as needed for Muscle Spasms Active fentaNYL 25 MCG/HR, fentaNYL 50 MCG/HR 75 mcg by Apply externally route as directed Every 4 days. Active ascorbic acid (Vitamin C) 500 MG tablet Take 1 (one) tablet by mouth once daily Active spironolactone (Aldactone) 25 MG tablet Take 1 (one) tablet by mouth 2 times daily Active cloNIDine (Catapres) 0.2 MG tablet Take 1 (one) tablet by mouth 2 times daily Active bisacodyl EC 5 MG tablet Take 2 (two) tablets by mouth every other day as needed for Constipation Active furosemide (Lasix) 20 MG tablet Take 1 (one) tablet by mouth 2 times daily Active gabapentin (Neurontin) 100 MG capsule Take 1 (one) capsule by mouth 3 times daily Active ondansetron, disintegrating, (Zofran ODT) 4 MG tablet Take 1 (one) tablet by mouth every 6 hours as needed for Nausea/Vomiting Allow tablet to dissolve on the tongue Active traMADol (Ultram) 50 MG tablet Take 1 (one) tablet by mouth every 8 hours as needed for Pain Active midodrine (Proamatine) 5 MG tablet Take 1 (one) tablet by mouth 2 times daily Active propranolol (Inderal) 40 MG tablet Take 1 (one) tablet by mouth 2 times daily Active acetaminophen (Tylenol) 500 MG capsule Take 1 (one) capsule by mouth every 6 hours as needed 08/11/2021 Active NIFEdipine CR osmotic 24hr (Procardia-XL) 60 MG tablet Take 1 (one) tablet by mouth once daily Active potassium chloride ER (Klor-Con M) 20 MEQ tablet Take 2 (two) tablets by mouth once daily 06/17/2023 Active cloNIDine (Catapres) 0.3 MG/24HR patch Apply 1 (one) patch to skin every 7 days Active Relistor 150 MG tablet Take 1 (one) tablet by mouth daily before breakfast May increase to BID if constipation persist. 08/05/2024 Active oxyCODONE-acetamino phen (Percocet) 10-325 MG tablet Take 1 (one) tablet by mouth every 4 hours as needed for Pain Active naloxone HCl (Narcan) 4 MG/0.1ML nasal spray Olds 1 (one) spray into the nose as needed Active polyethylene glycol (Gavilyte-C) 240 g solution Drink half of prep solution at 5pm the night before colonoscopy. Finish the prep at 4am the day of test. 4000 mL 09/16/2024 Active polyethylene glycol 3350 (Miralax) 17 GM/SCOOP powder Take a dose twice a day a week before your colonoscopy 238 g 09/16/2024 Active magnesium citrate solution Drink at 5pm 2 nights before your colonoscopy 300 mL 09/16/2024 Active bisacodyl EC (Dulcolax) 5 MG tablet Take 4 tablets orally at 2 nights before your colonoscopy. Take 4 tablets orally at noon the day before your colonoscopy 8 tablet 09/16/2024 Active ALPRAZolam (Xanax) 2 MG tablet Take 1 (one) tablet by mouth 2 times daily Active Active Problems Problem Noted Date Diagnosed Date [...] Comments Blood Pressure 109/59 09/25/2024 2:00 PM DRUM PLATER Pulse 86 09/25/2024 2:00 PM DRUM PLATER Temperature 36.6 ??C (97.8 ??F) 09/25/2024 1:45 PM CS T Respiratory Rate 14 09/25/2024 2:00 PM DRUM PLATER Oxygen Saturation 100% 09/25/2024 2:00 PM DRUM PLATER Inhaled Oxygen Concentration - - Weight 132.5 kg (292 lb) 09/25/2024 12:41 PM DRUM PLATER Height 165.1 cm (5' 5 ) 09/25/2024 12:41 PM DRUM PLATER Body Mass Index 48.59 09/25/2024 12:41 PM DRUM PLATER Functional Status Functional Status Response Date of [...] person have difficulty concentrating/remembering/making decisions? No 09/25/2024 Plan of Treatment Upcoming Encounters Date Type Department Care Team (Late st Contact Info) Description 11/16/2024 8:30 AM DRUM PLATER Office Visit [facility] - [address] [phone] Goals Goal Patient Goal Type Associated Problems Recent Progress Patient-Stated? Author Medication Management General On track( 024 10:53 AM CDT) Sandy Churchill, RN Note: Expected end date: Ongoing Interventions: Take all medications as prescribed Let your doctor know right away about any changes in your medications Make sure to request a refill of your medication at least one week prior to your last dose Procedures Procedure Name Priority Date/Time Associated Diagnosis Comments DE COLONOSCOPY, DIAGNOSTIC 09/25/2024 1:16 PM DRUM PLATER Other constipation XR ABDOMEN KUB PORTABLE STAT 09/25/2024 1:14 PM DRUM PLATER Constipation, unspecified constipation type ENDOSCOPY, COLON, DIAGNOSTIC Routine 09/25/2024 12:25 PM DRUM PLATER RENAL FUNCTION PANEL AM Draw 08/26/2019 5:13 AM CDT Mass of spine from Last 3 Months or Most Recently Relevant to Health Maintenance Results * XR Abdomen Kub Portable (09/25/2024 1:14 PM DRUM PLATER) Anatomical Region Laterality Modality Abdomen Digital Radiogra phy 09/25/2024 1:14 PM DRUM PLATER Impressions 09/25/2024 6:16 PM DRUM PLATER IMPRESSION: Nonobstructive bowel gas pattern. Mild colonic stool burden. > Dictated by Nidhi Hou MD, (vice president talent management). I, Myles Lees MD have personally reviewed and interpreted this examination/study. > Interpreting Provider: Myles Lees MD on 09/25/2024 6:16 PM Narrative 09/25/2024 6:16 PM DRUM PLATER PROCEDURE: ??XR ABDOMEN KUB PORTABLE DATE/TIME OF [...] burden. > Dictated by Nidhi Hou MD, (vice president talent management). I, Myles Lees MD have personally reviewed and interpreted this examination/study. > Interpreting Provider: Myles Lees MD on 09/25/2024 6:16 PM Azar Begum MD DIAGNOSTIC [facility] ORDERABLES * ENDOSCOPY, COLON, DIAGNOSTIC (09/25/2024 12:25 PM DRUM PLATER) Report Endoscopy POC Endoscopy Department Report _ [...] Procedure Code(s): ? --- Professional --- ? 91777, 53, Colonoscopy, flexible; diagnostic, including collection of ? specimen(s) by brushing or washing, when performed (separate procedure) Diagnosis Code(s): ?--- Professional --- ?Z12.11, Encounter for screening for malignant ?neoplasm of colon CPT copyright 2021 [employer]. All rights reserved. The codes documented in this report are preliminary and upon program or project administrator review may be revised to meet current compliance requirements. Azar Begum, 09/25/2024 1:40:42 PM Note Initiated On: 09/25/2024 12:25 PM Number of Addenda: 0 ? [facility] ? [address] [place], [place] [id number] [place] [address] 09/25/2024 12:2 5 PM DRUM PLATER Azar Begum MD GI PROCEDURE O RDERABLES [facility] * (ABNORMAL) RENAL FUNCTION PANEL (08/26/2019 5:13 AM CDT) BUN 18 7 - 26 mg/dL 08/26/2019 5:52 AM [facility] Creatinine 0.6 0.6 - 1.2 mg/dL 08/26/2019 5:52 AM [facility] Sodium 139 136 - 145 mmol/L 08/26/2019 5:52 AM [facility] Potassium 4.1 3.5 - 4.5 mmol/L 08/26/2019 5:52 AM [facility] Chloride 107 98 - 107 mmol/L 08/26/2019 5:52 AM [facility] CO2 23 22 - 29 mmol/L 08/26/2019 5:52 AM [facility] Glucose 94 70 - 115 mg/dL 08/26/2019 5:52 AM [facility] Albumin 3.2(L) 3.4 - 5.0 g/dL 08/26/2019 5:52 AM [facility] Calcium 8.8 8.4 - 10.2 mg/dL 08/26/2019 5:52 AM CDT [facility] Phosphorus 4.2 2.3 - 4.7 mg/dL 08/26/2019 5:52 AM T [facility] Anion Gap 13 8 - 18 08/26/2019 5:52 AM T [facility] BUN/Creatinine Ratio 30(H) 7 - 23 08/26/2019 5:52 AM T [facility] Osmolality Calculated 290 270 - 300 mOsm/kg 08/26/2019 5:52 AM T [facility] eGFR >60 >60 mL/min/1.7 3 m2 08/26/2019 5:52 AM T [facility] Blood BLOOD SPECIMEN / Unknown Lab Venipuncture / Unknown 08/26/2019 5:13 AM CDT 08/26/2019 5:19 AM CDT Sarah Andrade MD LAB - CHEMISTRY ELPIDIO VENEG[facility] Organization Address City/State/ZIP Co de Phone Number [facility] [address] [phone] from Last 3 Months or Most Recently Relevant to Health Maintenance Additional Health Concerns Infection Onset Date Last Indicated ESBL GNR 11/17/2023 11/17/2023 MDRO 11/17/2023 11/17/2023 Advance Directives Documents on File Type Date Recorded Patient Healthcare Associate Expl anation Adv Directive/Living Will/POA 09/04/2019 6:07 AM * Full Code (Latest Code Status on File) Date Activated Date Inactivated Comments 08/10/2019 6:43 AM 08/26/2019 6:47 PM Care Teams Manager Engine Relationship Specialty Start Date End Date Rick Carpio MD [address] [place] [id number] PCP - General Internal Medicine 06/29/24
--- OUTSIDE RECORDS SUMMARY | 2024-11-11 02:04 | XMS_ITS | Encounter Summary ---
Author Organization [facility] Address [address] [place] [address] Care Team Providers Care Airframe Design Engineer Name Role Phone Unavailable Primary Care Provider Unavailabl e Reason for Visit * Reason Comments Establish Care Review UDS and CT re sults Encounter Details Date Type Department Care Team (Late st Contact Info) Description 12/07/2023 9:30 AM CLIENT SOLUTIONS DIRECTOR Office Visit [facility] - Urology [address] [place], [place] [phone] Moiz Ramirez MD [address] [place] [phone] Neurogenic bladder (Primary Dx); Fistula; Urinary tract infection with hematuria, site unspecified; Urinary incontinence, unspecified type; Neurogenic bowel Social History Tobacco Use Types Packs/Day Years [...] Sign Reading Time Taken Comments Blood Pressure 82/60 12/07/2023 10:05 AM CLIENT SOLUTIONS DIRECTOR Pulse 91 12/07/2023 10:05 AM CLIENT SOLUTIONS DIRECTOR Temperature 36.8 ??C (98.3 ??F) 12/07/2023 10:[address] Respiratory Rate 18 12/07/2023 10:05 AM CLIENT SOLUTIONS DIRECTOR Oxygen Saturation 98% 12/07/2023 10:05 AM CLIENT SOLUTIONS DIRECTOR Inhaled Oxygen Concentration - - Weight 123.4 kg (272 lb) 12/07/2023 10:05 AM CLIENT SOLUTIONS DIRECTOR Height 165.1 cm (5' 5 ) 12/07/2023 10:05 AM CLIENT SOLUTIONS DIRECTOR Body Mass Index 45.26 12/07/2023 10:05 AM CLIENT SOLUTIONS DIRECTOR documented in this encounter Functional Status Functional [...] No 08/10/2019 documented as of this encounter Progress Notes * Moiz Ramirez MD - 12/07/2023 10:37 AM CST [facility] Division of Urologic Surgery Moiz Ramirez MD Date of Visit: 12/07/2023 Patient Name: Shawn Casey : 1985 Medical Record: [id number] Contact (home) [phone] (work) Age: [age] year old Sex: male Referring Physician: No referring provider defined for this encounter. Chief Complaint: Chief Complaint Patient presents with ??? Establish Care Review UDS and CT results Assessment/Plan: 38 year old male with the following issues: 1. Neurogenic bladder m/b CIC via catheterizable channel 2. Recurrent UTI 3. Urgency incontinence 4. Paraplegia ([facility]) 5. History of bladder stones s/p cystolithotomy 6. Urinary incontinence via fistulous tract 7. Fecal incontinence, neurogenic bowel Complex urologic and neurogenic bladder history s/p augmentation cystoplasty and hieu catheterizable channel in 2011. Bothered by continuous urinary leakage that occurs from apparent fistulous tract. Urodynamics reviewed today with excellent capacity (>1300) and no leak per stoma until he reached 1200 ml. Still bothered by continuous leakage. He requires Lynda lift and given this as well as his complex neurogenic and likely reconstructive needs will refer to my partner Dr. Tamez for further evaluation and management. -referral placed to [facility] for evaluation of colostomy Follow-up: Cysto with [facility] (needs to be seen at [facility] for lynda lift if procedure is to be done) History of Present Illness: The patient is a 38 year old male being seen today for new evaluation and treatment of neurogenic bladder and urinary incontinence. He has T4 SCI and h/o augment with Hieu performed by Dr. White at [facility] 12/2011 He manages his neurogenic bladder via CIC q4h by timing He presents with worsening of leakage that occurs between catheterizations. Rarely he has leakage from the Hieu as well but this is less common. Today he states he is not leaking from his penis but from a tract next to the penis. This was also noted during urodynamics. He stated that an outside urologist attempted to perform urethral bulking but this did not decreasehis urinary incontinence. He also is interested in consultation for a colostomy due to the fecal incontinence and neurogenic bowel as well as his wounds. Past Medical History; Past Medical History: Diagnosis Date ??? Heterotopic calcification, postoperative ??? Paraplegia (CMS-HCC) Past Surgical History: Past Surgical History: Procedure Laterality Date ??? Cholecystectomy ??? Cystostomy ??? Leg Amputation, Below Knee Bilateral Current Medications: Current Outpatient Medications Medication Sig Dispense Refill ??? Acetaminophen (Tylenol) 325 MG CAPS (Patient not taking: Reported on 10/26/2023) ??? acetaminophen (Tylenol) 500 MG capsule Take 1 (one) capsule by mouth every 6 hours as needed ??? amLODIPine (NORVASC) 10 MG tablet Take 1 (one) tablet by mouth once daily ??? ascorbic acid (Vitamin C) 500 MG tablet Take 1 (one) tablet by mouth once daily ??? bisacodyl EC 5 MG tablet Take 1 (one) tablet by mouth once as needed for Constipation ??? busPIRone (BUSPAR) 10 MG tablet Take 7.5 mg by mouth 3 times daily ??? cloNIDine (Catapres) 0.2 MG tablet Take 1 (one) tablet by mouth 2 times daily ??? cloNIDine (Catapres) 0.3 MG/24HR patch Apply 1 (one) patch to skin every 7 days ??? cyclobenzaprine (FLEXERIL) 10 MG tablet Take 1 (one) tablet by mouth 3 times daily as needed for Muscle Spasms ??? fentaNYL 25 MCG/HR, fentaNYL 50 MCG/HR 75 mcg by Apply externally route every 3 days ??? furosemide (Lasix) 20 MG tablet Take 1 (one) tablet by mouth 2 times daily ??? gabapentin (Neurontin) 100 MG capsule Take 1 (one) capsule by mouth 3 times daily ??? HYDROcodone-acetaminophen (NORCO) 5-325 MG tablet Take 1 (one) tablet by mouth every 12 hours as needed for Pain (Patient not taking: Reported on 12/07/2023) ??? lactulose (Chronulac) 20 GM/30ML solution Take 30 mL by mouth once daily ??? linaCLOtide (Linzess) 290 MCG capsule Take 1 (one) capsule by mouth daily before breakfast Takeon an empty stomach at least 30 minutes prior to first meal of the day. ??? lisinopril (PRINIVIL; ZESTRIL) 10 MG tablet Take 1 (one) tablet by mouth once daily ??? magnesium citrate solution Take 150 mL by mouth once ??? midodrine (Proamatine) 5 MG tablet Take 1 (one) tablet by mouth 3 times daily before meals ??? NIFEdipine CR osmotic 24hr (Procardia XL) 60 MG tablet Take 1 (one) tablet by mouth once daily ??? NIFEdipine CR osmotic 24hr (Procardia-XL) 60 MG tablet Take 1 (one) tablet by mouth once daily ??? omeprazole (PriLOSEC) 20 MG capsule Take 1 (one) capsule by mouth daily before breakfast ??? ondansetron, disintegrating, (Zofran ODT) 4 MG tablet Take 1 (one) tablet by mouth every 6 hours as needed for Nausea/Vomiting Allow tablet to dissolve on the tongue ??? oxyCODONE-acetaminophen (Percocet) 10-325 MG tablet Take 1 (one) tablet by mouth every 6 hours as needed for Pain ??? polyethylene glycol 3350 (Miralax) 17 GM/SCOOP powder Take 17 (seventeen) g by mouth once [id number] g 3 ??? potassium chloride ER (Klor-Con M) 20 MEQ tablet ??? propranolol (Inderal) 40 MG tablet Take 1 (one) tablet by mouth 2 times daily ??? Sennosides-Docusate Sodium 8.6-50 MG CAPS Take 1 tablet by mouth once daily ??? sodium hypochlorite 0.5% (Dakin's) 0.5 % full strength solution ??? spironolactone (Aldactone) 25 MG tablet Take 1 (one) tablet by mouth 2 times daily ??? SSD 1 % cream ??? traMADol (Ultram) 50 MG tablet Take 1 (one) tablet by mouth every 6 hours as needed for Pain ??? vitamin C (Ascorbic Acid) 1000 MG tablet Take 1 (one) tablet by mouth once daily No current facility-administered medications for this visit. Allergies; Metoclopramide Family History: Family History Family history unknown: Yes Social History: Social History Socioeconomic History ??? Marital status: Single Spouse name: Not on file ??? Number of children: Not on file ??? Years of education: Not on file ??? Highest education level: Not on file Occupational History ??? Not on file Tobacco Use ??? Smoking status: Never ??? Smokeless tobacco: Never Vaping Use ??? Vaping Use: Never used Substance and Sexual Activity ??? Alcohol use: Never ??? Drug use: Not Currently Frequency: 7.0 times per week Types: Marijuana Comment: smokes marijuana daily ??? Sexual activity: Not on file Other Topics Concern ??? Not on file Social History Narrative ??? Not on file Social Determinants of Health Financial Resource Strain: Not on file Food Insecurity: Not on file Transportation Needs: Not on file Stress: Not on file Housing Stability: Not on file Review of Systems: Review of Systems Constitutional: Negative. HENT: Negative. Eyes: Negative. Respiratory: Negative. Cardiovascular: Negative. Gastrointestinal: Negative. Genitourinary: Leaking Musculoskeletal: Negative. Skin: Negative. Neurological: Negative. Physical Exam: BP 82/60 (BP SITE: RIGHT ARM, BP POSITION: SITTING, BP Cuff Size: XL) Pulse 91 Temp 98.3 ??F (36.8 ??C) (Temporal) Resp 18 Ht 1.651 m (5' 5 ) Wt 123.4 kg (272 lb) SpO2 98% Physical Exam Vitals reviewed. Constitutional: Appearance: Normal appearance. He is obese. HENT: Head: Normocephalic and atraumatic. Nose: Nose normal. Eyes: Conjunctiva/sclera: Conjunctivae normal. Cardiovascular: Rate and Rhythm: Normal rate. Pulmonary: Effort: Pulmonary effort is normal. Abdominal: General: Abdomen is flat. There is distension. Palpations: Abdomen is soft. Genitourinary: Comments: catheterizable channel stoma c/d/i Musculoskeletal: General: Deformity present. Skin: General: Skin is warm. Neurological: Mental Status: He is alert and oriented to person, place, and time. Laboratory Studies: Lab results smartLinks are not currently available Recent Labs Component Name 11/17/23 1435 08/16/19 1728 PHUA - 6.0 PROTEINUA neg - UROBILINUA - Negative RBCUA - 21-50* Imaging (studies personally reviewed): CT AP 11/17/23 Impression: 1.No acute process identified in the abdomen or pelvis. 2.Postsurgical changes to the urinary bladder. Urodynamics 11/17/23 (personally reviewed) Urodynamic Results Indication for Procedure: ngb, hx of augment Noninvasive Uroflow: Comments: not performed, pt catheter dependent Cystometrogram: First Sensation: no sensation noted Capacity: >1300 ml Compliance: normal Instability: yes Urge incontinence: no Stress incontinence: no VLPP: n/a DLPP: 24 cm H2O (pt leaked per stoma at high volumes). Also had some leakage from perineal fistulous tract per nursing EMG: unremarkable Comments: Pressure Flow Study: Pt unable to void Comments: bladder pressure did not rise above mid 20's with filling Findings: Safe bladder storage parameters. Some instability. No leak with contractions, but cannot be ruled out if not demonstrated on study. Plan: Scope as scheduled. May consider increasing cath frequency and adding an anticholinergic (or perhaps botox injections) in the future. Moiz Ramirez MD 12/07/2023 10:38 AM NT SOLUTIONS DIRECTOR documented in this encounter Plan of Treatment Upcoming Encounters Date Type Department Care Team (Late st Contact Info) Description 11/16/2024 8:30 AM CLIENT SOLUTIONS DIRECTOR Office Visit [facility] - GI [address], [place] [address] documented as of this encounter Visit Diagnoses Diagnosis Neurogenic bladder- Primary Neurogenic bladder, NOS Fistula Unspecified local infection of skin and subcutaneous tissue Urinary tract infection with hematuria, site unspecified Urinary incontinence, unspecified type Neurogenic bowel documented in this encounter Additional Health Concerns Infection Onset Date Last Indicated Resolved Time ESBL GNR 11/17/2023 11/17/2023 MDRO 11/17/2023 11/17/2023 documented as of this encounter
--- OUTSIDE RECORDS SUMMARY | 2024-11-11 02:04 | XMS_ITS | Encounter Summary ---
Author Organization [facility] Address [address] [address] Care Team Providers Care Gas Stove Servicer Helper Name Role Phone Unavailable Primary Care Provider Unavailabl e Encounter Details Date Type Department Care Team (Late st Contact Info) Description 03/08/2024 Orders Only [facility] - Urology [address] [place] [address] Di Frost RN Urge incontinence ; Pre-op testing Social History Tobacco Use Types Packs/Day Years [...] as of this encounter Progress Notes * Di Frost RN - 03/09/2024 7:25 AM CDT Pre-op urine culture to be collected on 03/09 at long term. documented in this encounter Plan of Treatment Upcoming Encounters Date Type Department Care Team (Late st Contact Info) Description 11/16/2024 8:30 AM BENCH SCIENTIST Office Visit [facility] - [address] [place] [address] Scheduled Orders Name Type Priority Associated Diagnoses Orde r Schedule CULTURE URINE Microbiology Routine Urge incontinence Pre-op testing 1 Occurrences starting 03/08/2024 until 04/02/2025 documented as of this encounter Visit Diagnoses Diagnosis Urge incontinence- Primary Pre-op testing Preoperative examination, unspecified documented in this encounter Additional Health Concerns Infection Onset Date Last Indicated Resolved Time ESBL GNR 11/17/2023 11/17/2023 MDRO 11/17/2023 11/17/2023 documented as of this encounter
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
--- OUTSIDE RECORDS SUMMARY | 2024-11-11 02:04 | XMS_ITS | Encounter Summary ---
Author Organization [facility] Address [address] [place] [address] Care Team Providers Care Community Living Instructor Name Role Phone Unavailable Primary Care Provider Unavailabl e Encounter Details Date Type Department Care Team (Latest Contact Info) Description 12/06/2023 Travel Social History Tobacco Use Types Packs/Day Years [...] No 08/10/2019 documented as of this encounter Plan of Treatment Upcoming Encounters Date Type Department Care Team (Late st Contact Info) Description 11/16/2024 8:30 AM MANAGER STATISTICS Office Visit [facility] - [address] [place] [place] [phone] documented as of this encounter Visit Diagnoses Not on filedocumented in this encounter Additional Health Concerns Infection Onset Date Last Indicated Resolved Time ESBL GNR 11/17/2023 11/17/2023 MDRO 11/17/2023 11/17/2023 documented as of this encounter
--- OUTSIDE RECORDS SUMMARY | 2024-11-11 02:04 | XMS_ITS | Encounter Summary ---
Author Organization [facility] Address [address] [place] [address] Care Team Providers Care Blue Split Trimmer Name Role Phone Rick Carpio MD Primary Care Provider [phone] Encounter Details Date Type Department Care Team (Latest Contact Info) Description 08/10/2024 Travel Social History Tobacco Use Types Packs/Day [...] st Contact Info) Description 11/16/2024 8:30 AM PERSONAL HEALTH COACH Office Visit [facility] - [address] [place] [address] documented as of this encounter Goals Goal [...] documented as of this encounter Care Teams Blue Split Trimmer Relationship Specialty Start Date End Date Rick Carpio MD [address] [place] [phone] PCP - General Internal Medicine 06/29/24 documented as of this encounter
--- OUTSIDE RECORDS SUMMARY | 2024-11-11 02:04 | XMS_ITS | Encounter Summary ---
Author Organization [facility] Address [address] [place] [address] Care Team Providers Care Stockbroker Name Role Phone Unavailable Primary Care Provider Unavailabl e Reason for Visit * Reason Onset Date Comments Surgery Rescheduled 03/21/2024 Attempted to reach the patient to re-schedule surgery/procedure with Otoniel Tamez MD. NO voicemail, no answer. sending NPL Jaquez Fischer 03/21/2024 11:58 AM Encounter Details Date Type Department Care Team (Late st Contact Info) Description 03/21/2024 Telephone [facility] - Urology [address] [place] [phone] Otoniel Tamez MD Surgery Rescheduled (Attempted to reach the patient to re-schedule surgery/procedure with Otoniel Tamez MD. NO voicemail, no answer. sending NPL Jaquez Fischer 03/21/2024 11:58 AM ) Social History Tobacco Use Types Packs/Day Years [...] No 08/10/2019 documented as of this encounter Miscellaneous Notes * Telephone Encounter - Gisele Fischer - 03/21/2024 11:57 AM CDT Attempted to reach the patient to re-schedule surgery/procedure with Otoniel Tamez MD. NO voicemail, no answer. sending NPL Gisele Fischer 03/21/2024 11:58 AM documented in this encounter Plan of Treatment Upcoming Encounters Date Type Department Care Team (Late st Contact Info) Description 11/16/2024 8:30 AM FINANCIAL AID COUNSELOR Office Visit [facility] - GI [address] [place] [address] documented as of this encounter Visit Diagnoses Not on filedocumented in this encounter Additional Health Concerns Infection Onset Date Last Indicated Resolved Time ESBL GNR 11/17/2023 11/17/2023 MDRO 11/17/2023 11/17/2023 documented as of this encounter
--- OUTSIDE RECORDS SUMMARY | 2024-11-11 02:04 | XMS_ITS | Encounter Summary ---
Author Organization [facility] Health Address [address] [place] [address] Care Team Providers Care Intellectual Property Legal Assistant Name Role Phone Rick Carpio MD Primary Care Provider + [phone] Encounter Details Date Type Department Care Team (Latest Contact Info) Description 09/25/2024 Travel Social History Tobacco Use Types Packs/Day [...] No 09/25/2024 documented as of this encounter Plan of Treatment Upcoming Encounters Date Type Department Care Team (Late st Contact Info) Description 11/16/2024 8:30 AM NODULIZER Office Visit [facility] - GI [address] [place] [phone] documented as of this encounter Goals Goal [...] documented as of this encounter Care Teams Intellectual Property Legal Assistant Relationship Specialty Start Date End Date Rick Carpio MD [address] [place] [address] PCP - General Internal Medicine 06/29/24 documented as of this encounter
--- OUTSIDE RECORDS SUMMARY | 2024-11-11 02:04 | XMS_ITS | Encounter Summary ---
Author Organization [facility] Health Address [address] [place] [address] Care Team Providers Care Keg Filler Name Role Phone Unavailable Primary Care Provider Unavailabl e Encounter Details Date Type Department Care Team (Latest Contact Info) Description 11/17/2023 Travel Social History Tobacco Use Types Packs/Day [...] st Contact Info) Description 11/16/2024 8:30 AM PULPING MACHINE OPERATOR Office Visit [facility] - [address] [place] [phone] documented as of this encounter Visit Diagnoses Not on filedocumented in this encounter
--- OUTSIDE RECORDS SUMMARY | 2024-11-11 02:04 | XMS_ITS | Encounter Summary ---
Author Organization [facility] Health Address [address] [place] [address] Care Team Providers Care Department Store Salesperson Name Role Phone Rick Carpio MD Primary Care Provider [phone] Encounter Details Date Type Department Care Team (Late st Contact Info) Description 09/16/2024 Orders Only [facility] [address] [place] [phone] Wendy Loaiza, RN Social History Tobacco Use Types Packs/Day Years [...] st Contact Info) Description 11/16/2024 8:30 AM OFFICE MACHINE REPAIR SHOP SUPERVISOR Office Visit [facility] - GI [address] [place] [phone] documented as of this encounter Goals Goal [...] documented as of this encounter Care Teams Department Store Salesperson Relationship Specialty Start Date End Date Rick Carpio MD [address] [place] [address] PCP - General Internal Medicine 06/29/24 documented as of this encounter
--- OUTSIDE RECORDS SUMMARY | 2024-11-11 02:04 | XMS_ITS | Encounter Summary ---
Author Organization [facility] Address [address] [place] [address] Care Team Providers Care Surgical Appliance Fitter Name Role Phone Unavailable Primary Care Provider Unavailabl e Reason for Visit * Reason Onset Date Comments Surgery Scheduling 03/08/2024 Kellie to shira l me back to schedule, left message with toll test desk worker Jaquez Fischer 03/08/2024 10:41 AM Encounter Details Date Type Department Care Team (Late st Contact Info) Description 03/08/2024 Telephone [facility] - Urology [address] [place] [address], [facility] [place] [phone] Otoniel Tamez MD Surgery Scheduling (Kellie to call me back to schedule, left message with toll test desk worker Jaquez Fischer 03/08/2024 10:41 AM ) Social History Tobacco Use Types [...] * Telephone Encounter - Gisele Fischer - 03/08/2024 10:40 AM CDT Kellie to call me back to schedule, left message with toll test desk worker Gisele Fischer 03/08/2024 10:41 AM documented in this encounter Plan of Treatment Upcoming Encounters Date Type Department Care Team (Late st Contact Info) Description 11/16/2024 8:30 AM DIRECTOR OF STRATEGIC INITIATIVES Office Visit [facility] - GI [address] [place] [address] documented as of this encounter Visit Diagnoses Not on filedocumented in this encounter Additional Health Concerns Infection Onset Date Last Indicated Resolved Time ESBL GNR 11/17/2023 11/17/2023 MDRO 11/17/2023 11/17/2023 documented as of this encounter
--- OUTSIDE RECORDS SUMMARY | 2024-11-11 02:04 | XMS_ITS | Encounter Summary ---
Author Organization [facility] Address [address] [place] [address] Care Team Providers Care Top Lift Compresser Name Role Phone Unavailable Primary Care Provider Unavailabl e Encounter Details Date Type Department Care Team (Latest Contact Info) Description 02/17/2024 Travel Social History Tobacco Use Types Packs/Day [...] st Contact Info) Description 11/16/2024 8:30 AM PAINTER RAILROAD CAR Office Visit [facility] - [address] [facility] [place] [phone] documented as of this encounter Visit Diagnoses Not on filedocumented in this encounter Additional Health Concerns Infection Onset Date Last Indicated Resolved Time ESBL GNR 11/17/2023 11/17/2023 MDRO 11/17/2023 11/17/2023 documented as of this encounter
--- OUTSIDE RECORDS SUMMARY | 2024-11-11 02:04 | XMS_ITS | Encounter Summary ---
Author Organization [facility] Address [address] [place] [address] Care Team Providers Care Factory Clerk Name Role Phone Unavailable Primary Care Provider Unavailabl e Reason for Visit * Reason Onset Date Comments Future Appointment 01/31/2024 Encounter Details Date Type Department Care Team (Late st Contact Info) Description 01/31/2024 Telephone [facility] - [address] [place] [phone] Yared Tang Future Appointment Social History Tobacco Use Types Packs/Day [...] encounter Miscellaneous Notes * Telephone Encounter - Yared Tang - 01/31/2024 3:24 PM CDT Called to confirm 02/02 11am appointment with Kellie, and she wasn't available. Spoke with someone in the office, and they said that she would call back tomorrow to confirm. documented in this encounter Plan of Treatment Upcoming Encounters Date Type Department Care Team (Late st Contact Info) Description 11/16/2024 8:30 AM CHAINSTITCH SEWING MACHINE OPERATOR Office Visit [facility] - GI [address] [place] [phone] documented as of this encounter Visit Diagnoses Not on filedocumented in this encounter Additional Health Concerns Infection Onset Date Last Indicated Resolved Time ESBL GNR 11/17/2023 11/17/2023 MDRO 11/17/2023 11/17/2023 documented as of this encounter
--- OUTSIDE RECORDS SUMMARY | 2024-11-11 02:04 | XMS_ITS | Encounter Summary ---
Author Organization [facility] Address [address] [place] [address] Care Team Providers Care Cafe Or Restaurant Manager Name Role Phone Unavailable Primary Care Provider Unavailabl e Reason for Visit * Reason Onset Date Comments Appointment 12/07/2023 Encounter Details Date Type Department Care Team (Late st Contact Info) Description 12/07/2023 Telephone [facility] - General Surgery [address] [place] [phone] Di Frost, RN Appointment Social History Tobacco Use Types Packs/Day Years Used Date Smoking Tobacco: Never Smokeless Tobacco: Never Alcohol Use Standard Drinks/Week Comments Never 0 (1 standard drink = 0.6 oz pur e alcohol) AUDIT-C Answer Date Recorded Frequency of Alcohol Consumption Never 08/09/2019 Average Number of Drinks Not on file Frequency of Binge Drinking Not on file [...] encounter Miscellaneous Notes * Telephone Encounter - Di Frost RN - 01/04/2024 10:25 AM CST Unable to reach patient or transport person. LETION SUPERVISOR * Telephone Encounter - Di Frost RN - 12/30/2023 12:49 PM CST At least 2 attempts made to reach Kellie ([phone]) his hi low truck driver, to reschedule Urology appointment. Left message with other staff. LETION SUPERVISOR * Telephone Encounter - Di Frost RN - 12/07/2023 12:41 PM CST Called facility with Cystoscopy appointment. They arrange his transportation. I was transferred to the staff line that arranges transportation and had to leave a voice message. I did also speak with his mother Julissa and gave her the appointment information as well. LETION SUPERVISOR documented in this encounter Plan of Treatment Upcoming Encounters Date Type Department Care Team (Late st Contact Info) Description 11/16/2024 8:30 AM COMPLETION SUPERVISOR Office Visit [facility] - GI [address] [facility] [place] [address] documented as of this encounter Visit Diagnoses Not on filedocumented in this encounter Additional Health Concerns Infection Onset Date Last Indicated Resolved Time ESBL GNR 11/17/2023 11/17/2023 MDRO 11/17/2023 11/17/2023 documented as of this encounter
--- OUTSIDE RECORDS SUMMARY | 2024-11-11 02:04 | XMS_ITS | Encounter Summary ---
Author Organization [facility] Address [address] [place] [address] Care Team Providers Care Technical Engineer Name Role Phone Unavailable Primary Care Provider Unavailabl e Reason for Visit * Reason Comments Establish Care Cysto - retention Encounter Details Date Type Department Care Team (Latest Contact Info) Description 03/03/2024 9:00 AM CDT Procedure visit [facility] - Urology [address] [place] [phone] Otoniel Tamez MD Neurogenic bladder ; Fistula Social History Tobacco Use Types Packs/Day Years Used Date Smoking Tobacco: Never Smokeless Tobacco: Never Tobacco Cessation:Counseling Given: No Alcohol Use Standard Drinks/Week Comments Never 0 [...] Sign Reading Time Taken Comments Blood Pressure 136/81 03/03/2024 10:06 AM CDT Pulse 73 03/03/2024 10:06 AM CDT Temperature 36.2 ??C (97.1 ??F) 03/03/2024 10:06 AM C DT Respiratory Rate 18 03/03/2024 10:06 AM CDT Oxygen Saturation 99% 03/03/2024 10:06 AM CDT Inhaled Oxygen Concentration - - Weight 123.4 kg (272 lb) 03/03/2024 10:06 AM CDT Height 165.1 cm (5' 5 ) 03/03/2024 10:06 AM CDT Body Mass Index 45.26 03/03/2024 10:06 AM CDT documented in this encounter Functional [...] No 08/10/2019 documented as of this encounter Procedure Notes * Otoniel Tamez MD - 03/03/2024 10:21 AM CDTAssociated Order(s): PROC CYSTOURETHROSCOPY Procedure(s): WA CYSTOURETHROSCOPY Pre-Procedure Diagnose(s): Neurogenic bladder; Fistula Cystoscopy procedure note Indication for Procedure: NGB, assess fistula Description: Pt placed on the procedure table in supine position. he was prepped/draped in standard fashion. Pt correctly identified and time out performed. A flexible cystoscope was introduced per urethra withthe following findings. Urethra: + urethral erosion with some meatal stenosis, able to get scope in about 1.5 inches, at which point his urethra is completely strictured without obvious lumen IMPRESSION: Urethral stricture, urethral fistula, ngb PLAN: Discussed with patient that formal repair of his fistula may be extensive and I would be unable to do this prior to my departure. I discussed with pt that botox injections may shut down his unstable contractions and cut back if not eliminate leakage per stoma and per his fistula. He elects for the less invasive option first. Will order botox 200 units. Pt agrees with plan. Otoniel Tamez MD documented in this encounter Plan of Treatment Upcoming Encounters Date Type Department Care Team (Late st Contact Info) Description 11/16/2024 8:30 AM PRIME BROKER Office Visit [facility] - GI [address] [facility] [place] [address] documented as of this encounter Procedures Procedure Name Priority Date/Time Associated Diagnosis Comments WA CYSTOURETHROSCOPY Routine 03/03/2024 10:21 AM CDT Neurogenic bladder Fistula documented in this encounter Results * WA CYSTOURETHROSCOPY (03/03/2024 10:21 AM CDT) Narrative Otoniel [...] Otoniel Tamez MD PROCEDURE/MINOR GARCIAS RGICAL ORDERABLES documented in this encounter Visit Diagnoses Diagnosis Neurogenic bladder- Primary Neurogenic bladder, NOS Fistula Unspecified local infection of skin and subcutaneous tissue documented in this encounter Additional Health Concerns Infection Onset Date Last Indicated Resolved Time ESBL GNR 11/17/2023 11/17/2023 MDRO 11/17/2023 11/17/2023 documented as of this encounter
--- OUTSIDE RECORDS SUMMARY | 2024-11-11 02:04 | XMS_ITS | Encounter Summary ---
Author Organization [facility] Address [address] [place] [address] Care Team Providers Care Senior Project Leader/Team Lead Name Role Phone Rick Carpio MD Primary Care Provider [phone] Encounter Details Date Type Department Care Team (Late st Contact Info) Description 09/20/2024 Patient Outreach [facility] ENDOSCOPY [address] [place] [phone] Wendy Loaiza, RN Social History Tobacco Use [...] encounter Miscellaneous Notes * Telephone Encounter - Wendy Loaiza, PARAM - 09/22/2024 1:15 PM CST Images from the original note were not included. Portable KUB ordered to be done in pre op on Wednesday Message Received: Today Azar Begum MD Johnson, Sarah N. RN; Basim Jewell MD Yes please. Azar. Previous Messages ----- Message ----- From: Wendy Loaiza RN Sent: 09/22/2024 12:45 PM HEAD OF MERCHANDISE BUYING To: Azar Begum MD; Basim Jewell MD Pt coming in Wednesday for colonoscopy Had asked that a KUB done at facility. Never done Do you want KUB when he's in pre op Wednesday? Or not necessary? Received Date Received Time Sep 22, 2024 1:08 PM OF MERCHANDISE BUYING * Telephone Encounter - Wendy Loaiza RN - 09/22/2024 12:30 PM HEAD OF MERCHANDISE BUYING 3rd call---spoke with Farhan VIRGEN Confirms appt and has preps. Can consent self. Transport is set No blood thinners WC transport No recent KUB seen Farhan states she would order one Will see if doctor wants done day of colonoscopy OF MERCHANDISE BUYING * Telephone Encounter - Wendy Loaiza RN - 09/21/2024 10:18 AM HEAD OF MERCHANDISE BUYING 2nd calls---called [facility] at [phone]---nurse on break. Left message with stafffor a returned call OF MERCHANDISE BUYING * Telephone Encounter - Wendy Loaiza RN - 09/20/2024 4:21 PM CST Called [facility] x2--unable to reach staff currently. Will try back My prior notes;;;;; Milton (transportation) from [facility] calls to book pt's colonoscopy Scheduled with him at [phone] States they use [facility] in [place] for scripts Milton will have portable KUB to be done in house at their facility Patient: Shawn Casey 1985 Your colonoscopy with an extended 2 day prep is scheduled on Wednesday September 25, 2024. Arrive 1130am -Your prep will be sent to the [facility] pharmacy a week or two prior to appt +++starting a week before your colonoscopy, take a dose of Miralax twice a day++++ -One week before the colonoscopy: start eating a low fiber diet. Please avoid beans, corn and the SKINS of fruits and vegetables -Stop taking iron tablets one week prior to colonoscopy if on any. -Stop any blood thinners such as Plavix, Clopidogrel, Warfarin, Coumadin, Brilinta or Effient 5 days before your procedure. Stop Eliquis, Apixaban, Savaysa, Xarelto, Cilostazol, Pletal 48 hours priorto your procedure. Stop Pradaxa 3 days before your procedure. (Contact your primary doctor to make sure this is safe for you) -2 days before your colonoscopy, you will need to be on a full liquid diet, clear liquid diet and soft foods only. Some examples of what you can have this day are things like applesauce, mashed potatoes, soups, yogurt, protein shakes, ice cream, smoothies, etc. -2 days before your colonoscopy, take 4 bisacodyl tablets orally at noon -2 days before your colonoscopy, drink 1 bottle of the prep solution throughout the day -At 5pm, 2 nights before your colonoscopy, drink a 300mL bottle of magnesium citrate - The ENTIRE day before the colonoscopy drink clear liquids, anything you can see through such as apple juice, tea, black coffee, water, soda, juice, chicken broth, popsicles, jello, Gatorade. NO FOOD THE ENTIRE DAY BEFORE COLONOSCOPY. Avoid RED. If you can chew it, you cannot have it. -at noon the day before your colonoscopy, take 4 Bisacodyl tablets orally -drink half the prep (Golytely 2 liters) at 5 pm the night before your procedure. Recommend drinking an 8oz cup every 15 minutes without making yourself sick. -finish the remainder of the prep at 4am the day of your colonoscopy -You may take your medicines with a sip of water on the morning of the test but other than that nothing to drink other than the laxative, after midnight. Do not take any oral diabetes medication or fast acting insulin the morning of your procedure. -You MUST have a semi driver to drive you home. (You can NOT take a bus, cab, LYFT or UBER) -You will be at our facility from start to finish (registration, pre op, procedure, recovery) for approximately 3-4 hours total. -Address: [facility] at [address] in [place] [address]. -If you park in the parking garage, you will take the ORANGE elevators to the first floor. Check inat the [employer] lounge. -If you are dropped off at main entrance or choose to apparel cutter, when you come inside the building you,you will make 2 right turns and we are at the end of the guadalupe at the [employer]. Sterilisation Technician is $4 -Please do not bring jewelry, valuables or a large amount of reynolds with you the day of procedure. Bring your photo ID, insurance card and copayment you may be responsible for. -Please bring a current list of your medications. Do not bring your pill bottles with you on the day of procedure. -[facility] endoscopy department number is [phone] OF MERCHANDISE BUYING documented in this encounter Plan of Treatment Upcoming Encounters Date Type Department Care Team (Late st Contact Info) Description 11/16/2024 8:30 AM HEAD OF MERCHANDISE BUYING Office Visit [facility] - GI [address] [facility] [place] [phone] documented as of this encounter Goals Goal [...] documented as of this encounter Care Teams Senior Project Leader/Team Lead Relationship Specialty Start Date End Date Rick Carpio MD [address] [place] [address] PCP - General Internal Medicine 06/29/24 documented as of this encounter
--- OUTSIDE RECORDS SUMMARY | 2024-11-11 02:04 | XMS_ITS | Encounter Summary ---
Author Organization [facility] Address [address] [place] [address] Care Team Providers Care Academic Registrar Name Role Phone Rick Carpio MD Primary Care Provider [phone] Encounter Details Date Type Department Care Team (Late st Contact Info) Description 08/11/[address] [facility]COPY [address] [place] [phone] Wendy Loaiza, RN Social History Tobacco Use [...] Notes * Telephone Encounter - Wendy Loaiza, RN - 08/11/2024 8:49 AM CDT Milton (transportation) from [facility] calls to book pt's colonoscopy Scheduled with him at [phone] States they use [facility] in [place] for scripts Milton will have portable KUB [...] of your procedure. -You MUST have a services delivery driver to drive you home. (You can NOT take a bus, cab, LYFT or UBER) -You will be at our facility from start to finish (registration, pre op, procedure, recovery) for approximately 3-4 hours total. -Address: [facility] at [address] [place] [address] in [place] [address]. -If you park in the parking garage, you will take the ORANGE elevators to the first floor. Check inat the [employer] lounge. -If you are dropped off at main entrance or choose to volunteer specialist, when you come inside the building you,you will make 2 right turns and we are at the end of the guadalupe at the [employer]. [employer] Salesperson is $4 -Please do not bring jewelry, valuables or a large amount of reynolds with you the day of procedure. Bring your photo ID, insurance card and copayment you may be responsible for. -Please bring a current list of your medications. Do not bring your pill bottles with you on the day of procedure. -[facility] endoscopy department number is [phone] documented in this encounter Plan of Treatment Upcoming Encounters Date Type Department Care Team (Late st Contact Info) Description 11/16/2024 8:30 AM FOOTWEAR SALES ASSOCIATE Office Visit [facility] - GI [address] [facility] Third Level [place] [phone] documented as of this encounter Goals Goal Patient Goal Type Associated Problems Recent Progress Patient-Stated? Author Medication Management General On track( 024 10:53 AM CDT) No Nayak, Sandy M, RN Note: Expected end date: Ongoing Interventions: [...] documented as of this encounter Care Teams Academic Registrar Relationship Specialty Start Date End Date Rick Carpio MD [address] [place] [phone] PCP - General Internal Medicine 06/29/24 documented as of this encounter
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
--- OUTSIDE RECORDS SUMMARY | 2024-11-11 02:04 | XMS_ITS | Clinical Summary ---
Author Organization [facility] Address [address] [place] [address] Care Team Providers Care Solid Waste Manager Name Role Phone Rick Carpio MD Primary Care Provider [phone] Source Comments [facility],non-owned Affiliates and Associated Physician Practices is amultiple site organization consisting of ambulatory clinics and hospital sitesin [place], [place], [place] and [place]. This disclosure is being madepursuant to the Care Everywhere program and may not contain all information available regarding this patient. Last updated 18.[facility] Allergies Active Allergy Reactions Criticality Noted Date [...] naloxone HCl (Narcan) 4 MG/0.1ML nasal spray [facility] 1 (one) spray into the nose as [...] with hematuria 9 Mass of spine 08/10/2019 Encounters Date Type Department Care Team Description 10/02/2024 Telephone [facility] - Centralized Scheduling [address] [place] [address] Sabi Payne MD Appointment 09/25/2024 1:21 PM DELIVERY MOTORCYCLE DRIVER Anesthesia Event [facility] ENDOSCOPY [address] [place] [phone] Dafne Heller MD Buchheit, Rachel E, PROPERTY HANDLER-TECHNICAL MANAGER CHEMICAL PLANT 09/25/2024 12:30 PM DELIVERY MOTORCYCLE DRIVER - 09/25/2024 1:15 PM DELIVERY MOTORCYCLE DRIVER Surgery [facility] ENDOSCOPY [address] [place] [phone] Azar Begum MD COLONOSCOPY DIAGNOSTIC---extend ed 2 day prep----check portable KUB in pre op please!! 09/25/2024 11:40 AM DELIVERY MOTORCYCLE DRIVER - 09/25/2024 2:32 PM DELIVERY MOTORCYCLE DRIVER Hospital Encounter [facility] OP [address] [place] [phone] Azar Begum MD Surgery General Discharge Disposition: Home or Self Care 09/25/2024 Travel 09/20/2024 Patient Outreach [facility] ENDOSCOPY [address] [place] [phone] Wendy Loaiza, RN 09/16/2024 Orders Only [facility] ENDOSCOPY [address] [place] [phone] Wendy Loaiza, RN 08/11/2024 Patient Outreach [facility] ENDOSCOPY [address] [place] [phone] Wendy Loaiza, RN from Last 3 Months Social History Tobacco Use Types Packs/Day Years [...] Comments Blood Pressure 109/59 09/25/2024 2:00 PM DELIVERY MOTORCYCLE DRIVER Pulse 86 09/25/2024 2:00 PM DELIVERY MOTORCYCLE DRIVER Temperature 36.6 ??C (97.8 ??F) 09/25/2024 1:45 PM CS T Respiratory Rate 14 09/25/2024 2:00 PM DELIVERY MOTORCYCLE DRIVER Oxygen Saturation 100% 09/25/2024 2:00 PM DELIVERY MOTORCYCLE DRIVER Inhaled Oxygen Concentration - - Weight 132.5 kg (292 lb) 09/25/2024 12:41 PM DELIVERY MOTORCYCLE DRIVER Height 165.1 cm (5' 5 ) 09/25/2024 12:41 PM DELIVERY MOTORCYCLE DRIVER Body Mass Index 48.59 09/25/2024 12:41 PM DELIVERY MOTORCYCLE DRIVER Plan of Treatment Upcoming Encounters Date Type Department Care Team (Late st Contact Info) Description 11/16/2024 8:30 AM DELIVERY MOTORCYCLE DRIVER Office Visit [facility] - [address] [place] [phone] Health Maintenance Due Date Last Done Comments LIPID TESTING 1985 MEDICARE AWV ? 12 MONTHS 1985 HIV SCREENING 1998 HEPATITIS C SCREENING 08/11/2001 DTAP/TDAP/TD VACCINES (1 - Tdap) 2002 HEPATITIS B VACCINE (1 of 3 - 19+ 3-dose series) 2002 SCREENING FOR DIABETES 12/07/2023 9, 08/25/2019, 08/24/2019, Additional history exists COVID-19 VACCINE ( season) 2024 02/07/2021 INFLUENZA VACCINE (#1) 2024 08/01/2021, 2017 DEPRESSION SCREENING 11/08/2024 ZOSTER VACCINE (1 of 2) 2033 HIB VACCINE Aged Out No longer eligi ble based on patient's age to complete this topic HPV VACCINE Aged Out No longer eligi ble based on patient's age to complete this topic MENINGOCOCCAL VACCINE Aged Out No jose francisco blu eligible based on patient's age to complete this topic PNEUMOCOCCAL VACCINE Aged Out No long er eligible based on patient's age to complete this topic Goals Goal Patient Goal Type Associated Problems [...] Procedure Name Priority Date/Time Associated Diagnosis Comments PA COLONOSCOPY, DIAGNOSTIC 09/25/2024 1:16 PM DELIVERY MOTORCYCLE DRIVER Other constipation XR ABDOMEN KUB PORTABLE STAT 09/25/2024 1:14 PM DELIVERY MOTORCYCLE DRIVER Constipation, unspecified constipation type ENDOSCOPY, COLON, DIAGNOSTIC Routine 09/25/2024 12:25 PM DELIVERY MOTORCYCLE DRIVER RENAL FUNCTION PANEL AM Draw 08/26/2019 5:13 AM CDT Mass of spine from Last 3 Months or Most Recently Relevant to Health Maintenance Results * XR Abdomen Kub Portable (09/25/2024 1:14 PM DELIVERY MOTORCYCLE DRIVER) Anatomical Region Laterality Modality Abdomen Digital Radiogra phy 09/25/2024 1:14 PM DELIVERY MOTORCYCLE DRIVER Impressions 09/25/2024 6:16 PM DELIVERY MOTORCYCLE DRIVER IMPRESSION: Nonobstructive bowel gas pattern. Mild colonic stool burden. > Dictated by Nidhi Hou MD, (resident physician in radiology). I, Myles Lees MD have personally reviewed and interpreted this examination/study. > Interpreting Provider: Myles Lees MD on 09/25/2024 6:16 PM Narrative 09/25/2024 6:16 PM DELIVERY MOTORCYCLE DRIVER PROCEDURE: ??XR ABDOMEN KUB PORTABLE DATE/TIME OF [...] > Dictated by Nidhi Hou MD, (resident physician in radiology). I, Myles Lees MD have personally reviewed and interpreted this examination/study. > Interpreting Provider: Myles Lees MD on 09/25/2024 6:16 PM Azar Begum MD DIAGNOSTIC [facility]GG[facility]ING ORDERABLES * ENDOSCOPY, COLON, DIAGNOSTIC (09/25/2024 12:25 PM DELIVERY MOTORCYCLE DRIVER) Report Endoscopy POC Endoscopy Department Report _ Patient Name: Shawn Casey ? Procedure Date: 09/25/2024 12:25 PM ?Date of : 1985 Classification: Outpatient ?Gender: Male Ethnicity: Not or ? Race: Black or _ Providers: ?Azar Begum Referring : ? Rick Carpio (Referring ) Procedure: ?Colonoscopy [...] Procedure Code(s): ? --- Professional --- ? 92884, 53, Colonoscopy, flexible; diagnostic, including collection of ? specimen(s) by brushing or washing, when performed (separate procedure) Diagnosis Code(s): ?--- Professional --- ?Z12.11, Encounter for screening for malignant ?neoplasm of colon CPT copyright 2021 [employer]. All rights reserved. The codes documented in this report are preliminary and upon street vendor review may be revised to meet current compliance requirements. Azar Begum, 09/25/2024 1:40:42 PM Note Initiated On: 09/25/2024 12:25 PM Number of Addenda: 0 ? [facility] ? [address] [place], [place] [id number] [place] [address] 09/25/2024 12:2 5 PM DELIVERY MOTORCYCLE DRIVER Azar Begum MD GI PROCEDURE O RDERABLES [facility] * (ABNORMAL) RENAL FUNCTION PANEL (08/26/2019 5:13 AM CDT) BUN 18 7 - 26 mg/dL 08/26/2019 5:52 AM CDT [facility] Creatinine 0.6 0.6 - 1.2 mg/dL 08/26/2019 5:52 AM CDT [facility] Sodium 139 136 - 145 mmol/L 08/26/2019 5:52 AM CDT [facility] Potassium 4.1 3.5 - 4.5 mmol/L 08/26/2019 5:52 AM [facility] Chloride 107 98 - 107 mmol/L 08/26/2019 5:52 AM [facility] CO2 23 22 - 29 mmol/L 08/26/2019 5:52 AM [facility] Glucose 94 70 - 115 mg/dL 08/26/2019 5:52 AM [facility] Albumin 3.2(L) 3.4 - 5.0 g/dL 08/26/2019 5:52 AM [facility] Calcium 8.8 8.4 - 10.2 mg/dL 08/26/2019 5:52 AM [facility] Phosphorus 4.2 2.3 - 4.7 mg/dL 08/26/2019 5:52 AM [facility] Anion Gap 13 8 - 18 08/26/2019 5:52 AM [facility] BUN/Creatinine Ratio 30(H) 7 - 23 08/26/2019 5:52 AM [facility] Osmolality Calculated 290 270 - 300 mOsm/kg 08/26/2019 5:52 AM [facility] eGFR >60 >60 mL/min/1.7 3 m2 08/26/2019 5:52 AM [facility] Blood BLOOD SPECIMEN / Unknown Lab Venipuncture / Unknown 08/26/2019 5:13 AM CDT 08/26/2019 5:19 AM CDT Sarah Andrade MD LAB - CHEMISTRY ELPIDIO VENEGAS [facility] Organization Address City/State/ZIP Co de Phone Number [facility] [address] [phone] from Last 3 Months or Most Recently Relevant to Health Maintenance Additional Health Concerns Infection Onset Date Last Indicated ESBL GNR 11/17/2023 11/17/2023 MDRO 11/17/2023 11/17/2023 Advance Directives Documents on File Type Date Recorded Patient Sandstone Inspector Repairer Expl anation Adv Directive/Living Will/POA 09/04/2019 6:07 AM * Full Code (Latest Code Status on File) Date Activated Date Inactivated Comments 08/10/2019 6:43 AM 08/26/2019 6:47 PM Care Teams Solid Waste Manager Relationship Specialty Start Date End Date Rick Carpio MD [address] [place] [phone] PCP - General Internal Medicine 06/29/24
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
--- OUTSIDE RECORDS SUMMARY | 2024-11-11 02:05 | XMS_ITS | Encounter Summary ---
Author Organization [facility] Address [address] [place] [address] Care Team Providers Care Content Specialist Name Role Phone Unavailable Primary Care Provider Unavailabl e Reason for Visit * Reason Onset Date Comments Mass 02/20/2021 sacral Encounter Details Date Type Department Care Team (Late st Contact Info) Description 02/20/2021 Telephone [facility] [address] [place] [address] Edgar Talbot MD [address] [place] [address] Mass (sacral) Social History Tobacco Use Types Packs/Day Years [...] encounter Miscellaneous Notes * Telephone Encounter - Nicole Muñiz RN - 02/20/2021 8:48 AM CDT Patient's mom called with request for Dr. Talbot's care for her son. She now lives in [place] and is concerned her son's pain is related to a malignant pelvic mass. documented in this encounter Plan of Treatment Upcoming Encounters Date Type Department Care Team (Late st Contact Info) Description 11/16/2024 8:30 AM HIGH SCHOOL TUTOR Office Visit [facility] - GI [address] [place] [address] documented as of this encounter Visit Diagnoses Not on filedocumented in this encounter
--- OUTSIDE RECORDS SUMMARY | 2024-11-11 02:05 | XMS_ITS | Encounter Summary ---
Author Organization [facility] Address [address] [address] Care Team Providers Care Rush Seater Name Role Phone Unavailable Primary Care Provider Unavailabl e Encounter Details Date Type Department Care Team (Latest Contact Info) Description 10/26/2023 Travel Social History Tobacco Use Types Packs/Day [...] st Contact Info) Description 11/16/2024 8:30 AM GEOLOGICAL TECHNICIAN Office Visit [facility] - [address] [place] [phone] documented as of this encounter Visit Diagnoses Not on filedocumented in this encounter
--- OUTSIDE RECORDS SUMMARY | 2024-11-11 02:05 | XMS_ITS | Encounter Summary ---
Author Organization [facility] Address [address] [place] [address] Care Team Providers Care Inside Sales Lead Name Role Phone Unavailable Primary Care Provider Unavailabl e Reason for Referral * Radiology Services (Routine) - Closed Specialty Diagnoses / Procedures Referred By Contac t Referred To Contact CT Scan Diagnoses Neurogenic bladder Procedures CT ABDOMEN PELVIS WO CONTRAST Moiz Ramirez MD [address] [facility] [address] [place], [place] [facility] [address] [place] [address] Referral ID Status Reason Start Date Expiration Date Visits Re quested Visits Authorized [id number] Closed 10/26/2023 10/25/2024 1 1 CAMERA OPERATOR Reason for Visit * Reason Comments Establish Care Urinary retention\ l eakage Encounter Details Date Type Department Care Team (Latest Contact Info) Description 10/26/2023 2:00 PM LINE CAMERA OPERATOR Office Visit [facility] - Urology [address] [place], [place] [phone] Moiz Ramirez MD [address] [place] [phone] Neurogenic bladder (Primary Dx); Recurrent UTI; Urgency incontinence; Paraplegia (HCC); Other neuromuscular dysfunction of bladder Social History Tobacco Use Types Packs/Day Years [...] Sign Reading Time Taken Comments Blood Pressure 127/73 10/26/2023 3:03 PM LINE CAMERA OPERATOR Pulse 82 10/26/2023 3:03 PM LINE CAMERA OPERATOR Temperature 35.7 ??C (96.2 ??F) 10/26/2023 3:03 PM CS T Respiratory Rate - - Oxygen Saturation 100% 10/26/2023 3:03 PM LINE CAMERA OPERATOR Inhaled Oxygen Concentration - - Weight 133.4 kg (294 lb) 10/26/2023 3:03 PM LINE CAMERA OPERATOR Height - - Body Mass Index 48.92 08/10/2019 4:56 AM CDT documented in this encounter Functional [...] Progress Notes * Moiz Ramirez MD - 10/26/2023 4:32 PM CST [facility] Division of Urologic Surgery Moiz Ramirez MD Date of Visit: 10/26/2023 Patient Name: Shawn Casey : 1985 Medical Record: [id number] Contact (home) [phone] (work) Age: [age] year old Sex: male Referring Physician: No referring provider defined for this encounter. Chief Complaint: Chief Complaint Patient presents with ??? Establish Care Urinary retention\ leakage Assessment/Plan: 38 year old male with the following issues: 1. Neurogenic bladder m/b CIC via catheterizable channel 2. Recurrent UTI 3. Urgency incontinence 4. Paraplegia ([facility]) 5. History of bladder stones s/p cystolithotomy Complex urologic and neurogenic bladder history s/p augmentation cystoplasty and ronnell catheterizable channel in 2011. His change in bladder symptoms may correspond to a capacity issue but will assess this further withbaseline urodynamic evaluation and CT non-contrast to assess for stones, nidus for infection, and to characterize his bladder function as well as the etiology of leakage (low outlet resistance vs capacity?). -Urodynamics -CT AP non-contrast Follow-up: after UDS with Dashawn (needs to be seen at [facility] for kong lift if procedure is to be done) History of Present Illness: The patient is a 38 year old male being seen today for new evaluation and treatment of neurogenic bladder and urinary incontinence. He has T4 SCI and h/o augment with Ronnell performed by Dr. White at [facility] 12/2011 He manages his neurogenic bladder via CIC q4h by timing He presents with worsening of leakage from the penis that occurs between catheterizations. Rarely he has leakage from the Ronnell as well but this is less common. Past Medical History; Past Medical History: Diagnosis Date ??? Heterotopic calcification, postoperative ??? Paraplegia ([facility]) Past Surgical History: Past Surgical History: Procedure [...] 1 (one) tablet by mouth once daily (Patient not taking: Reported on 10/26/2023) ??? ascorbic acid (Vitamin C) 500 MG [...] every 12 hours as needed for Pain ??? lactulose (Chronulac) 20 GM/30ML solution Take [...] Take 17 (seventeen) g by mouth once g 3 ??? potassium chloride ER (Klor-Con [...] Skin: Negative. Neurological: Negative. Physical Exam: BP 127/73 (BP SITE: LEFT ARM, BP POSITION: SITTING, BP Cuff Size: A) Pulse 82 Temp (!) 96.2 ??F(35.7 ??C) (Temporal) Wt 133.4 kg (294 lb) SpO2 100% Physical Exam Vitals reviewed. Constitutional: Appearance: Normal [...] not currently available Recent Labs Component Name 08/16/19 1728 PHUA 6.0 UROBILINUA Negative RBCUA 21-50* Imaging (studies personally reviewed): none Moiz Ramirez MD 10/26/2023 4:33 PM CAMERA OPERATOR documented in this encounter Plan of Treatment Upcoming Encounters Date Type Department Care Team (Late st Contact Info) Description 11/16/2024 8:30 AM LINE CAMERA OPERATOR Office Visit [facility] - [address] [address] Scheduled Orders Name Type Priority Associated Diagnoses Orde r Schedule PROC URODYNAMICS Procedures Routine Neurogenic bladder Other neuromuscular dysfunction of bladder Ordered: 10/26/2023 documented as of this encounter Results * CT ABDOMEN PELVIS WO CONTRAST (11/17/2023 1:12 PM LINE CAMERA OPERATOR) Anatomical Region Laterality Modality Abdomen, Pelvis Computed Tomogra phy 11/17/2023 3:05 PM LINE CAMERA OPERATOR Impressions 11/17/2023 4:35 PM LINE CAMERA OPERATOR Impression: 1.No acute process identified in the abdomen or pelvis. 2.Postsurgical changes to the urinary bladder. > Dictated by Gilda Amin MD (vice president of instruction). IBob have personally reviewed and interpreted this examination/study. > Interpreting Provider: Bob Manley on 11/17/2023 4:35 PM Narrative 11/17/2023 4:35 PM LINE CAMERA OPERATOR EXAMINATION: CT ABDOMEN PELVIS WO CONTRAST DATE/TIME OF EXAM: ??11/17/2023 1:15 PM, LOCATION ??[facility] HISTORY: N31.9: Neurogenic bladder s/p augmentation cystoplasty and ronnell catheterizable channel in 2011. COMPARISON: CT abdomen [...] the mesenteric root are nonspecific. Bladder: The [facility] urinary bladder is small in size. Postoperative [...] DATE/TIME OF EXAM: 11/17/2023 1:15 PM, LOCATION [facility] HISTORY: N31.9: Neurogenic bladder s/p augmentation [...] the mesenteric root are nonspecific. Bladder: The [facility] urinary bladder is small in size. Postoperative [...] bladder. > Dictated by Gilda Amin MD (vice president of instruction). Bob Meeks have personally reviewed and interpreted this examination/study. > Interpreting Provider: Bob Manley on 11/17/2023 4:35 PM [address] Ramirez MD CT ORDERABLES documented in this encounter Visit Diagnoses Diagnosis Neurogenic bladder- Primary Neurogenic bladder, NOS Recurrent UTI Urinary tract infection, site not specified Urgency incontinence Urge incontinence Paraplegia (HCC) Paraplegia Other neuromuscular dysfunction of bladder Neurogenic bladder Neurogenic bladder, NOS documented in this encounter
--- OUTSIDE RECORDS SUMMARY | 2024-11-11 02:05 | XMS_ITS | Encounter Summary ---
Author Organization [facility] Health Address [address] [place] [address] Care Team Providers Care Patent Clerk Name Role Phone Unavailable Primary Care Provider Unavailabl e Reason for Visit * Reason Onset Date Comments Appointment 10/28/2023 Encounter Details Date Type Department Care Team (Late st Contact Info) Description 10/28/2023 Telephone [facility] - General Surgery [address] [place] [phone] Di Frost, RN Appointment Social History Tobacco [...] Miscellaneous Notes * Telephone Encounter - Di Frost, RN - 10/28/2023 12:22 PM CST Spoke with sister. I called to schedule his Urodynamics testing. Pt to continue Urologic follow up with Dr Tamez at [facility] as he requires a lift transfer. She notified me that he is in a facility-[facility], and gave me 2 phone numbers to call- [phone] and [phone]. Spoke with his nurse Brigida and brennon. Instructed to send pt with kong pads underneath so we can attach them to the lift. STER RECOVERY CONSULTANT documented in this encounter Plan of Treatment Upcoming Encounters Date Type Department Care Team (Late st Contact Info) Description 11/16/2024 8:30 AM DISASTER RECOVERY CONSULTANT Office Visit [facility] - [address] [place] [address], [place] [address] documented as of this encounter Visit Diagnoses Not on filedocumented in this encounter
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
--- OUTSIDE RECORDS SUMMARY | 2024-11-11 02:05 | XMS_ITS | Encounter Summary ---
Author Organization [facility] Health Address [address] [place] [address] Care Team Providers Care Zinc Chloride Operator Name Role Phone Unavailable Primary Care Provider Unavailabl e Reason for Visit * Reason Onset Date Comments Mass 02/20/2021 Encounter Details Date Type Department Care Team (Late st Contact Info) Description 02/20/2021 Telephone [facility] [address] [place], [place] [phone] Edgar Talbot MD [address] [place] [address] [place] Social History Tobacco Use Types Packs/Day Years [...] Encounter - Nicole Muñiz RN - 02/20/2021 8:26 AM CDT Patient admitted to terminal gauger supervisor facility on 01/28/21. Received a call with request to transfer to [facility] for pain concerns due to sacral mass. Patient's mother asked if Dr. Talbot could assume his care. documented in this encounter Plan of Treatment Upcoming Encounters Date Type Department Care Team (Late st Contact Info) Description 11/16/2024 8:30 AM GAS SINGER Office Visit [facility] - [address] [place] [address] documented as of this encounter Visit Diagnoses Not on filedocumented in this encounter
--- OUTSIDE RECORDS SUMMARY | 2024-11-11 02:05 | XMS_ITS | Encounter Summary ---
Author Organization [facility] Health Address [address] [place] [address] Care Team Providers Care Supervisor Cold Rolling Name Role Phone Unavailable Primary Care Provider Unavailabl e Encounter Details Date Type Department Care Team (Latest Contact Info) Description 09/27/2023 Travel Social History Tobacco Use Types Packs/Day [...] st Contact Info) Description 11/16/2024 8:30 AM BROKE BEATER Office Visit [facility] - [address] [place] [phone] documented as of this encounter Visit Diagnoses Not on filedocumented in this encounter
--- OUTSIDE RECORDS SUMMARY | 2024-11-11 02:05 | XMS_ITS | Encounter Summary ---
Author Organization [facility] Address [address] [place] [address] Care Team Providers Care Math Professor Name Role Phone Unavailable Primary Care Provider Unavailabl e Reason for Referral * Radiology Services (Routine) - Closed Specialty Diagnoses / Procedures Referred By Tierraac t Referred To Contact CT Scan Diagnoses Neurogenic bladder Procedures CT ABDOMEN PELVIS WO CONTRAST Moiz Ramirez MD [address] [facility] [address] [place] [address] [facility] [address] [place] [address] Referral ID Status Reason Start Date Expiration Date Visits Re quested Visits Authorized [id number] Closed 10/26/2023 10/25/2024 1 1 O VISUAL TECHNICIAN Reason for Visit * Radiology Services (Routine) - Closed Specialty Diagnoses / Procedures Referred By Contac t Referred To Contact CT Scan Diagnoses Neurogenic bladder Procedures CT ABDOMEN PELVIS WO CONTRAST Moiz Ramirez MD [address] [facility] [address] [place] [address] [facility] [address] [place] [address] Referral ID Status Reason Start Date Expiration Date Visits Re quested Visits Authorized [id number] Closed 10/26/2023 10/25/2024 1 1 Encounter Details Date Type Department Care Team (Latest Contact Info) Description 11/17/2023 12:40 PM AUDIO VISUAL TECHNICIAN - 11/17/2023 4:38 PM AUDIO VISUAL TECHNICIAN Hospital Encounter [facility] CAT SCAN [address] [place] [address] Moiz Ramirez MD [address] [place] [address] Discharge Disposition: Home or Self Care Social [...] st Contact Info) Description 11/16/2024 8:30 AM AUDIO VISUAL TECHNICIAN Office Visit [facility] - [address] [phone] documented as of this encounter Procedures Procedure Name Priority Date/Time Associated Diagnosis Comments CT ABDOMEN PELVIS WO CONTRAST Routine 11/17/2023 1:12 PM AUDIO VISUAL TECHNICIAN Neurogenic bladder documented in this encounter Results * CT ABDOMEN PELVIS WO CONTRAST (11/17/2023 1:12 PM AUDIO VISUAL TECHNICIAN) Anatomical Region Laterality Modality Abdomen, Pelvis Computed Tomogra phy 11/17/2023 3:05 PM AUDIO VISUAL TECHNICIAN Impressions 11/17/2023 4:35 PM AUDIO VISUAL TECHNICIAN Impression: 1.No acute process identified in the abdomen or pelvis. 2.Postsurgical changes to the urinary bladder. > Dictated by iGlda Amin MD (resident care supervisor). I, Bob Manley have personally reviewed and interpreted this examination/study. > Interpreting Provider: Bob Manley on 11/17/2023 4:35 PM Narrative 11/17/2023 4:35 PM AUDIO VISUAL TECHNICIAN EXAMINATION: CT ABDOMEN PELVIS WO CONTRAST DATE/TIME OF EXAM: ??11/17/2023 1:15 PM, LOCATION ??[facility] HISTORY: N31.9: Neurogenic bladder s/p augmentation cystoplasty [...] the mesenteric root are nonspecific. Bladder: The koi urinary bladder is small in size. Postoperative [...] DATE/TIME OF EXAM: 11/17/2023 1:15 PM, LOCATION [facility] HISTORY: N31.9: Neurogenic bladder s/p augmentation cystoplasty [...] the mesenteric root are nonspecific. Bladder: The koi urinary bladder is small in size. Postoperative [...] bladder. > Dictated by Gilda Amin MD (resident care supervisor). Bob Meeks have personally reviewed and interpreted this examination/study. > Interpreting Provider: Bob Manley on 11/17/2023 4:35 PM Moiz Ramirez MD CT ORDERABLES documented in this encounter Visit Diagnoses Diagnosis Neurogenic bladder Neurogenic bladder, NOS documented in this encounter
--- OUTSIDE RECORDS SUMMARY | 2024-11-11 02:05 | XMS_ITS | Encounter Summary ---
Author Organization [facility] Address [address] [place] [address] Care Team Providers Care Cafeteria Counter Attendant Name Role Phone Unavailable Primary Care Provider Unavailabl e Reason for Visit * Reason Onset Date Comments Appointment 12/31/2022 Encounter Details Date Type Department Care Team (Late st Contact Info) Description 12/31/2022 Telephone [facility] - [address] [place] [phone] Bronwyn Bains, RN Appointment Social History Tobacco Use Types [...] encounter Miscellaneous Notes * Telephone Encounter - Bronwyn Bains, RN - 12/31/2022 11:37 AM CST Spoke with patient, will not be able to make it to today's scheduled appt. Instructed to callback and speak with our schedulers when transportation is arranged. Pt verbalized understanding. CREASER documented in this encounter Plan of Treatment Upcoming Encounters Date Type Department Care Team (Late st Contact Info) Description 11/16/2024 8:30 AM VAMP CREASER Office Visit [facility] - GI [address] [place] [phone] documented as of this encounter Visit Diagnoses Not on filedocumented in this encounter
--- OUTSIDE RECORDS SUMMARY | 2024-11-11 02:05 | XMS_ITS | Encounter Summary ---
Author Organization [facility] Address [address] [facility] [place] [address] Care Team Providers Care Roll Up Operator Name Role Phone Unavailable Primary Care Provider Unavailabl e Reason for Visit * Reason Comments Establish Care Encounter Details Date Type Department Care Team (Latest Contact Info) Description 11/17/2023 2:00 PM WET POUR MIXER Procedure visit [facility] - Urology [address] [place] [address] [place] [phone] Otoniel Tamez MD Neurogenic bladder ; Bacteriuria; Other retention of urine Social History Tobacco Use Types Packs/Day Years [...] Sign Reading Time Taken Comments Blood Pressure 95/62 11/17/2023 1:21 PM WET POUR MIXER Pulse 88 11/17/2023 1:21 PM WET POUR MIXER Temperature 36.1 ??C (97 ??F) 11/17/2023 1:21 PM WET POUR MIXER Respiratory Rate - - Oxygen Saturation 95% 11/17/2023 1:21 PM WET POUR MIXER Inhaled Oxygen Concentration - - Weight 123.4 kg (272 lb) 11/17/2023 1:21 PM WET POUR MIXER Height 165.1 cm (5' 5 ) 11/17/2023 1:21 PM WET POUR MIXER Body Mass Index 45.26 11/17/2023 1:21 PM WET POUR MIXER documented in this encounter Functional Status Functional [...] Procedure Notes * Otoniel Tamez MD - 11/17/2023 4:10 PM CSTAssociated Order(s): PROC URODYNAMICS Procedure(s): TX CYSTOMETROGRAM W/CEMENT BOAT AND BARGE LOADER Pre-Procedure Diagnose(s): Neurogenic bladder; Other retention of urine Urodynamic Results Indication for Procedure: ngb, hx [...] injections) in the future. Otoniel Tamez MD POUR MIXER documented in this encounter Plan of Treatment Upcoming Encounters Date Type Department Care Team (Late st Contact Info) Description 11/16/2024 8:30 AM WET POUR MIXER Office Visit [facility] - [address] [place] [phone] documented as of this encounter Procedures Procedure Name Priority Date/Time Associated Diagnosis Comments TX CYSTOMETROGRAM W/CEMENT BOAT AND BARGE LOADER Routine 4:10 PM WET POUR MIXER Neurogenic bladder Other retention of urine URINALYSIS AUTO - POINT OF CARE (AMB) [facility] Routine 11/17/2023 2:35 PM WET POUR MIXER Neurogenic bladder documented in this encounter Results * TX CYSTOMETROGRAM W/CEMENT BOAT AND BARGE LOADER (11/17/2023 4:10 PM WET POUR MIXER) Narrative Otoniel Tamez MD - 11/17/2023 4:10 PM WET POUR MIXER Otoniel Tamez MD ? 11/18/2023 ??7:11 AM [...] * (ABNORMAL) CULTURE URINE (11/17/2023 3:01 PM WET POUR MIXER) Culture Urine >100,000 CFU/mL Escherichia coli extended-spectr um beta-lactamase (ESBL)(A) MAURIZIO 11/21/2023 5:00 AM WET POUR MIXER [facility] Comment: Strain 1 Isolate is multi drug resistant organism (MDRO). Culture Urine >100,000 CFU/mL Escherichia coli(A) MAURIZIO 11/21/2023 5:00 AM WET POUR MIXER [facility] Comment:Strain 2 Culture Urine 10,000-50,000 CFU/mL urogenital mallory MAURIZIO 11/21/2023 5:00 AM [facility] Urine URINE SPECIMEN OBTAINED BY SINGLE CATHETERIZATION OF URINARY BLADDER / Unknown Collection / Unknown 11/17/2023 3:01 PM WET POUR MIXER 11/17/2023 5:30 PM WET POUR MIXER [facility] MICROBIOLOGY - 11/21/2023 5:00 AM WET POUR MIXER Contact Precautions Required. This isolate is a [...] Otoniel Tamez MD LAB - MICROBIOLOGY ORDERABLES [facility]CRO[facility] [address] [place] [address], [facility] [phone] * URINALYSIS AUTO - POINT OF CARE (AMB) [facility] (11/17/2023 2:35 PM WET POUR MIXER) Glucose UA neg [facility] [address] Bilirubin UA POCT neg [facility] [address] Ketones UA POCT neg [facility] [address] Specific [place] UA 1.[address] [facility] [address] Blood Urine POCT neg [facility] [address] pH UA 6.0 [facility] [address] Protein UA neg [facility] [address] Urobilinogen UA - [facility] [address] Nitrite UA POS [facility] [address] WBC UA 1+ [facility] [address] Urine URINE / Unknown 11/17/2023 2 :35 PM WET POUR MIXER Otoniel Tamez MD LAB - POINT OF CAR E ORDERABLES [facility] [address] [place] [address], [place] [phone] documented in this encounter Visit Diagnoses Diagnosis Neurogenic bladder- Primary Neurogenic bladder, NOS Bacteriuria Other nonspecific finding on examination of urine Other retention of urine documented in this encounter
--- OUTSIDE RECORDS SUMMARY | 2024-11-11 02:05 | XMS_ITS | Encounter Summary ---
Author Organization [facility] Health Address [address] [place] [address] Care Team Providers Care Editorial Manager Name Role Phone Unavailable Primary Care Provider Unavailabl e Encounter Details Date Type Department Care Team (Latest Contact Info) Description 07/08/2023 Travel Social History Tobacco Use Types Packs/Day [...] st Contact Info) Description 11/16/2024 8:30 AM CORRESPONDENCE COORDINATOR Office Visit [facility] - [address] [facility] [address] [place] [phone] documented as of this encounter Visit Diagnoses Not on filedocumented in this encounter
--- OUTSIDE RECORDS SUMMARY | 2024-11-11 02:05 | XMS_ITS | Encounter Summary ---
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 Pathology/Cytolo gy BONE BIOPSY SPECIMEN / Unknown Collection / Unknown 08/15/2019 3:19 PM CDT 08/15/2019 3:56 PM CDT Comment:lumbral sacral Rene Watts MD LAB - PATHOLOGY/CYTO LOGY ORDERABLES Performing Organization Address [facility]/State/[facility] Co de Phone Number [facility] [address] [place] [address], [facility] [phone] * FLOW CYTOMETRY TISSUE PANEL (08/15/2019 3:19 PM CDT) Case Report Flow Cytometry ?Case: [id number] ? Authorizing Provider: ??Rene Watts MD ?Collected: ? 08/15/2019 03:19 PM ? Ordering Location: ? [address] ?Received: ?08/15/2019 03:55 PM ? Pathologist: ? Gatito Martinez MD ? Specimen: ?Bone Biopsy ? 2019 10:32 AM [facility] Final Diagnosis Bone biopsy, flow cytometric immunophenotypic analysis: - Insufficient viable hematopoietic cells for analysis. - See interpretation. 2019 10:32 AM [facility] Flow Cytometry Interpretation Preliminary characterization of the bone biopsy specimen demonstrates too few viable hematopoietic cells for flow cytometric analysis. A cytospin prepared from the flow cytometry specimen is reviewed for quality control lead purposes. Flow cytometry is not performed. 2019 10:32 AM [facility] Flow Cytometry Results Too few white blood cells for flow cytometric analysis. 2019 10:32 AM [facility] Reason for test Mass of spine Osteomyelitis hip 730.25 2019 10:32 AM [facility] Client Specimen ID # [id number] 2019 10:32 AM [facility] Disclaimer Test performed at [facility], [address] [place] [address], [id number]. *The established laboratory minimum viability is 70%. [...] high complexity clinical testing. 2019 10:32 AM CDT [facility] Embedded Images 9 10:32 AM CDT [facility] Pathology/Cytolo gy BONE BIOPSY SPECIMEN / Unknown Collection / Unknown 08/15/2019 3:19 PM CDT 08/15/2019 3:55 PM CDT Rene Watts MD LAB - PATHOLOGY/CYTO LOGY ORDERABLES Performing Organization Address City/State/[facility] Co de Phone Number [facility] [address] [phone] * (ABNORMAL) CBC W AUTO DIFFERENTIAL (08/15/2019 5:04 AM CDT) WBC 6.8 3.5 - 10.5 10? 3 /uL 08/15/2019 5:21 AM [facility] RBC 4.74 4.30 - 5.70 10? 6 /uL 08/15/2019 5:21 AM [facility] Hemoglobin 9.9(L) 13.5 - 17.5 g/dL 08/15/2019 5:21 AM [facility] Hematocrit 33.8(L) 39.0 - 50.0 % 08/15/2019 5:21 AM [facility] MCV 71.3(L) 81.0 - 97.0 fL 08/15/2019 5:21 AM [facility] MCH 20.9(L) 28.0 - 34.0 pg 08/15/2019 5:21 AM [facility] MCHC 29.3(L) 32.0 - 36.0 g/dL 08/15/2019 5:21 AM [facility] Platelet Count 288 150 - 400 10? 3 /uL 08/15/2019 5:21 AM [facility] RDW-SD 46.0 36.0 - 50.0 fL 08/15/2019 5:21 AM [facility] RDW-CV 19.0(H) 11.2 - 14.8 % 08/15/2019 5:21 AM [facility] MPV 10.3 9.3 - 12.8 fL 08/15/2019 5:21 AM [facility] nRBC Absolute 0.00 0 10? 3 /uL 08/15/2019 5:21 AM [facility] nRBC Auto 0.0 0 /100 WBC 08/15/2019 5:21 AM [facility] Neutrophils % 58.0 35.0 - 70.0 % 08/15/2019 5:21 AM [facility] Lymphocytes % 32.0 19.7 - 55.1 % 08/15/2019 5:21 AM [facility] Monocytes % 6.5 3.0 - 15.0 % 08/15/2019 5:21 AM [facility] Eosinophils % 2.5 0.0 - 6.0 % 08/15/2019 5:21 AM [facility] Basophil % 0.3 0.0 - 1.5 % 08/15/2019 5:21 AM [facility] Neutrophils Absolute 3.9 1.6 - 7.0 10? 3 /uL 08/15/2019 5:21 AM [facility] Lymphocyte Absolute 2.2 0.8 - 2.9 10? 3 /uL 08/15/2019 5:21 AM [facility] Monocytes Absolute 0.44 0.14 - 0.66 10? 3 /uL 08/15/2019 5:21 AM [facility] Eosinophils Absolute 0.17 0.00 - 0.45 10? 3 /uL 08/15/2019 5:21 AM [facility] Basophils Absolute 0.02 0.00 - 0.06 10? 3 /uL 08/15/2019 5:21 AM [facility] Immature Granulocytes % 0.7 0.0 - 1.0 % 08/15/2019 5:21 AM [facility] Blood BLOOD SPECIMEN / Unknown Lab Venipuncture / Unknown 08/15/2019 5:04 AM CDT 08/15/2019 5:17 AM CDT Blayne Miller MD LAB - HEMATOLOGY O RDERABLES [address] [phone] * MAGNESIUM BLOOD (08/15/2019 5:03 AM CDT) Magnesium 2.2 1.6 - 2.6 mg/dL 08/15/2019 5:39 AM [facility] Blood BLOOD SPECIMEN / Unknown Lab Venipuncture / Unknown 08/15/2019 5:03 AM CDT 08/15/2019 5:17 AM CDT Blayne Miller MD LAB - CHEMISTRY OR DERABLES Performing Organization Address [facility]/ZIP Co de Phone Number [address] [phone] * (ABNORMAL) RENAL FUNCTION PANEL (08/15/2019 5:03 AM CDT) BUN 12 7 - 26 mg/dL 08/15/2019 5:39 AM [facility] Creatinine 0.6 0.6 - 1.2 mg/dL 08/15/2019 5:39 AM [facility] Sodium 140 136 - 145 mmol/L 08/15/2019 5:39 AM [facility] Potassium 4.1 3.5 - 4.5 mmol/L 08/15/2019 5:39 AM [facility] Chloride 106 98 - 107 mmol/L 08/15/2019 5:39 AM [facility] CO2 22 22 - 29 mmol/L 08/15/2019 5:39 AM [facility] Glucose 102 70 - 115 mg/dL 08/15/2019 5:39 AM [facility] Albumin 3.0(L) 3.4 - 5.0 g/dL 08/15/2019 5:39 AM [facility] Calcium 8.6 8.4 - 10.2 mg/dL 08/15/2019 5:39 AM [facility] Phosphorus 4.2 2.3 - 4.7 mg/dL 08/15/2019 5:39 AM [facility] Anion Gap 16 8 - 18 08/15/2019 5:39 AM [facility] BUN/Creatinine Ratio 20 7 - 23 08/15/2019 5:39 AM [facility] Osmolality Calculated 290 270 - 300 mOsm/kg 08/15/2019 5:39 AM [facility] eGFR >60 >60 mL/min/1.7 3 m2 08/15/2019 5:39 AM [facility] Blood BLOOD SPECIMEN / Unknown Lab Venipuncture / Unknown 08/15/2019 5:03 AM CDT 08/15/2019 5:17 AM CDT Blayne Miller MD LAB - CHEMISTRY OR DERABLES Performing Organization Address [facility] Co de Phone Number [address] [phone] * MAGNESIUM BLOOD (08/14/2019 5:54 AM CDT) Magnesium 2.0 1.6 - 2.6 mg/dL 08/14/2019 6:46 AM [facility] Blood BLOOD SPECIMEN / Unknown Lab Venipuncture / Unknown 08/14/2019 5:54 AM CDT 08/14/2019 6:18 AM CDT Blayne Miller MD LAB - CHEMISTRY OR DERABLES [address] [phone] * (ABNORMAL) RENAL FUNCTION PANEL (08/14/2019 5:54 AM CDT) BUN 10 7 - 26 mg/dL 08/14/2019 6:46 AM [facility] Creatinine 0.6 0.6 - 1.2 mg/dL 08/14/2019 6:46 AM [facility] Sodium 138 136 - 145 mmol/L 08/14/2019 6:46 AM [facility] Potassium 3.9 3.5 - 4.5 mmol/L 08/14/2019 6:46 AM [facility] Chloride 104 98 - 107 mmol/L 08/14/2019 6:46 AM [facility] CO2 25 22 - 29 mmol/L 08/14/2019 6:46 AM [facility] Glucose 87 70 - 115 mg/dL 08/14/2019 6:46 AM [facility] Albumin 3.2(L) 3.4 - 5.0 g/dL 08/14/2019 6:46 AM [facility] Calcium 8.6 8.4 - 10.2 mg/dL 08/14/2019 6:46 AM [facility] Phosphorus 3.9 2.3 - 4.7 mg/dL 08/14/2019 6:46 AM [facility] Anion Gap 13 8 - 18 08/14/2019 6:46 AM [facility] BUN/Creatinine Ratio 17 7 - 23 08/14/2019 6:46 AM [facility] Osmolality Calculated 284 270 - 300 mOsm/kg 08/14/2019 6:46 AM [facility] eGFR >60 >60 mL/min/1.7 3 m2 08/14/2019 6:46 AM [facility] Blood BLOOD SPECIMEN / Unknown Lab Venipuncture / Unknown 08/14/2019 5:54 AM CDT 08/14/2019 6:18 AM T Blayne Miller MD LAB - CHEMISTRY OR DERABLES Performing Organization Address City/State/[facility] Co de Phone Number [address] [phone] * (ABNORMAL) CBC W AUTO DIFFERENTIAL (08/14/2019 5:54 AM CDT) WBC 6.8 3.5 - 10.5 10? 3 /uL 08/14/2019 6:31 AM [facility] RBC 4.74 4.30 - 5.70 10? 6 /uL 08/14/2019 6:31 AM [facility] Hemoglobin 9.8(L) 13.5 - 17.5 g/dL 08/14/2019 6:31 AM [facility] Hematocrit 33.8(L) 39.0 - 50.0 % 08/14/2019 6:31 AM [facility] MCV 71.3(L) 81.0 - 97.0 fL 08/14/2019 6:31 AM [facility] MCH 20.7(L) 28.0 - 34.0 pg 08/14/2019 6:31 AM [facility] MCHC 29.0(L) 32.0 - 36.0 g/dL 08/14/2019 6:31 AM [facility] Platelet Count 306 150 - 400 10? 3 /uL 08/14/2019 6:31 AM [facility] RDW-SD 45.8 36.0 - 50.0 fL 08/14/2019 6:31 AM [facility] RDW-CV 19.0(H) 11.2 - 14.8 % 08/14/2019 6:31 AM [facility] MPV 11.1 9.3 - 12.8 fL 08/14/2019 6:31 AM [facility] nRBC Absolute 0.00 0 10? 3 /uL 08/14/2019 6:31 AM [facility] nRBC Auto 0.0 0 /100 WBC 08/14/2019 6:31 AM [facility] Neutrophils % 65.1 35.0 - 70.0 % 08/14/2019 6:31 AM [facility] Lymphocytes % 26.0 19.7 - 55.1 % 08/14/2019 6:31 AM [facility] Monocytes % 5.5 3.0 - 15.0 % 08/14/2019 6:31 AM [facility] Eosinophils % 2.4 0.0 - 6.0 % 08/14/2019 6:31 AM [facility] Basophil % 0.4 0.0 - 1.5 % 08/14/2019 6:31 AM [facility] Neutrophils Absolute 4.4 1.6 - 7.0 10? 3 /uL 08/14/2019 6:31 AM [facility] Lymphocyte Absolute 1.8 0.8 - 2.9 10? 3 /uL 08/14/2019 6:31 AM CDT [facility] Monocytes Absolute 0.37 0.14 - 0.66 10? 3 /uL 08/14/2019 6:31 AM CDT [facility] Eosinophils Absolute 0.16 0.00 - 0.45 10? 3 /uL 08/14/2019 6:31 AM CDT [facility] Basophils Absolute 0.03 0.00 - 0.06 10? 3 /uL 08/14/2019 6:31 AM CDT [facility] Immature Granulocytes % 0.6 0.0 - 1.0 % 08/14/2019 6:31 AM CDT [facility] Blood BLOOD SPECIMEN / Unknown Lab Venipuncture / Unknown 08/14/2019 5:54 AM CDT 08/14/2019 6:19 AM CDT Blayne Miller MD LAB - HEMATOLOGY O RDERABLES Performing Organization Address City/[facility]/ZIP Co de Phone Number [address] [phone] * MAGNESIUM BLOOD (08/13/2019 5:26 AM CDT) Magnesium 2.1 1.6 - 2.6 mg/dL 08/13/2019 6:25 AM CDT [facility] Blood BLOOD SPECIMEN / Unknown Lab Venipuncture / Unknown 08/13/2019 5:26 AM CDT 08/13/2019 5:53 AM CDT Blayne Miller MD LAB - CHEMISTRY OR DERABLES [address] [phone] * (ABNORMAL) RENAL FUNCTION PANEL (08/13/2019 5:26 AM CDT) BUN 10 7 - 26 mg/dL 08/13/2019 6:25 AM CDT [facility] Creatinine 0.6 0.6 - 1.2 mg/dL 08/13/2019 6:25 AM CDT [facility] Sodium 139 136 - 145 mmol/L 08/13/2019 6:25 AM [facility] Potassium 4.0 3.5 - 4.5 mmol/L 08/13/2019 6:25 AM [facility] Chloride 109(H) 98 - 107 mmol/L 08/13/2019 6:25 AM [facility] CO2 22 22 - 29 mmol/L 08/13/2019 6:25 AM [facility] Glucose 85 70 - 115 mg/dL 08/13/2019 6:25 AM [facility] Albumin 3.0(L) 3.4 - 5.0 g/dL 08/13/2019 6:25 AM [facility] Calcium 8.4 8.4 - 10.2 mg/dL 08/13/2019 6:25 AM [facility] Phosphorus 3.8 2.3 - 4.7 mg/dL 08/13/2019 6:25 AM [facility] Anion Gap 12 8 - 18 08/13/2019 6:25 AM [facility] BUN/Creatinine Ratio 17 7 - 23 08/13/2019 6:25 AM [facility] Osmolality Calculated 286 270 - 300 mOsm/kg 08/13/2019 6:25 AM [facility] eGFR >60 >60 mL/min/1.7 3 m2 08/13/2019 6:25 AM [facility] Blood BLOOD SPECIMEN / Unknown Lab Venipuncture / Unknown 08/13/2019 5:26 AM CDT 08/13/2019 5:53 AM T Blayne Miller MD LAB - CHEMISTRY OR DERABLES [address] [phone] * (ABNORMAL) CBC W AUTO DIFFERENTIAL (08/13/2019 5:26 AM CDT) WBC 6.6 3.5 - 10.5 10? 3 /uL 08/13/2019 5:56 AM [facility] RBC 4.53 4.30 - 5.70 10? 6 /uL 08/13/2019 5:56 AM [facility] Hemoglobin 9.5(L) 13.5 - 17.5 g/dL 08/13/2019 5:56 AM [facility] Hematocrit 32.2(L) 39.0 - 50.0 % 08/13/2019 5:56 AM [facility] MCV 71.1(L) 81.0 - 97.0 fL 08/13/2019 5:56 AM [facility] MCH 21.0(L) 28.0 - 34.0 pg 08/13/2019 5:56 AM [facility] MCHC 29.5(L) 32.0 - 36.0 g/dL 08/13/2019 5:56 AM [facility] Platelet Count 305 150 - 400 10? 3 /uL 08/13/2019 5:56 AM [facility] RDW-SD 45.2 36.0 - 50.0 fL 08/13/2019 5:56 AM [facility] RDW-CV 18.3(H) 11.2 - 14.8 % 08/13/2019 5:56 AM [facility] MPV 10.5 9.3 - 12.8 fL 08/13/2019 5:56 AM [facility] nRBC Absolute 0.00 0 10? 3 /uL 08/13/2019 5:56 AM [facility] nRBC Auto 0.0 0 /100 WBC 08/13/2019 5:56 AM [facility] Neutrophils % 62.2 35.0 - 70.0 % 08/13/2019 5:56 AM [facility] Lymphocytes % 29.6 19.7 - 55.1 % 08/13/2019 5:56 AM [facility] Monocytes % 4.7 3.0 - 15.0 % 08/13/2019 5:56 AM [facility] Eosinophils % 2.7 0.0 - 6.0 % 08/13/2019 5:56 AM [facility] Basophil % 0.3 0.0 - 1.5 % 08/13/2019 5:56 AM [facility] Neutrophils Absolute 4.1 1.6 - 7.0 10? 3 /uL 08/13/2019 5:56 AM CDT [facility] Lymphocyte Absolute 2.0 0.8 - 2.9 10? 3 /uL 08/13/2019 5:56 AM CDT [facility] Monocytes Absolute 0.31 0.14 - 0.66 10? 3 /uL 08/13/2019 5:56 AM CDT [facility] Eosinophils Absolute 0.18 0.00 - 0.45 10? 3 /uL 08/13/2019 5:56 AM CDT [facility] Basophils Absolute 0.02 0.00 - 0.06 10? 3 /uL 08/13/2019 5:56 AM CDT [facility] Immature Granulocytes % 0.5 0.0 - 1.0 % 08/13/2019 5:56 AM CDT [facility] Blood BLOOD SPECIMEN / Unknown Lab Venipuncture / Unknown 08/13/2019 5:26 AM CDT 08/13/2019 5:53 AM CDT Blayne Miller MD LAB - HEMATOLOGY O RDERABLES [address] [phone] * MAGNESIUM BLOOD (08/12/2019 5:45 AM CDT) Magnesium 2.0 1.6 - 2.6 mg/dL 08/12/2019 6:24 AM [facility] Blood BLOOD SPECIMEN / Unknown Lab Venipuncture / Unknown 08/12/2019 5:45 AM CDT 08/12/2019 5:50 AM CDT Blayne Miller MD LAB - CHEMISTRY OR DERABLES [address] [phone] * (ABNORMAL) RENAL FUNCTION PANEL (08/12/2019 5:45 AM CDT) BUN 9 7 - 26 mg/dL 08/12/2019 6:24 AM CDT [facility] Creatinine 0.6 0.6 - 1.2 mg/dL 08/12/2019 6:24 AM [facility] Sodium 139 136 - 145 mmol/L 08/12/2019 6:24 AM [facility] Potassium 3.5 3.5 - 4.5 mmol/L 08/12/2019 6:24 AM [facility] Chloride 108(H) 98 - 107 mmol/L 08/12/2019 6:24 AM [facility] CO2 24 22 - 29 mmol/L 08/12/2019 6:24 AM [facility] Glucose 89 70 - 115 mg/dL 08/12/2019 6:24 AM [facility] Albumin 2.9(L) 3.4 - 5.0 g/dL 08/12/2019 6:24 AM [facility] Calcium 8.3(L) 8.4 - 10.2 mg/dL 08/12/2019 6:24 AM [facility] Phosphorus 3.1 2.3 - 4.7 mg/dL 08/12/2019 6:24 AM [facility] Anion Gap 11 8 - 18 08/12/2019 6:24 AM [facility] BUN/Creatinine Ratio 15 7 - 23 08/12/2019 6:24 AM [facility] Osmolality Calculated 286 270 - 300 mOsm/kg 08/12/2019 6:24 AM [facility] eGFR >60 >60 mL/min/1.7 3 m2 08/12/2019 6:24 AM [facility] Blood BLOOD SPECIMEN / Unknown Lab Venipuncture / Unknown 08/12/2019 5:45 AM CDT 08/12/2019 5:50 AM CDT Blayne Miller MD LAB - CHEMISTRY OR DERABLES [address] [phone] * (ABNORMAL) CBC W AUTO DIFFERENTIAL (08/12/2019 5:45 AM CDT) WBC 6.7 3.5 - 10.5 10? 3 /uL 08/12/2019 6:23 AM [facility] RBC 4.40 4.30 - 5.70 10? 6 /uL 08/12/2019 6:23 AM [facility] Hemoglobin 9.0(L) 13.5 - 17.5 g/dL 08/12/2019 6:23 AM [facility] Hematocrit 31.4(L) 39.0 - 50.0 % 08/12/2019 6:23 AM [facility] MCV 71.4(L) 81.0 - 97.0 fL 08/12/2019 6:23 AM [facility] MCH 20.5(L) 28.0 - 34.0 pg 08/12/2019 6:23 AM [facility] MCHC 28.7(L) 32.0 - 36.0 g/dL 08/12/2019 6:23 AM [facility] Platelet Count 276 150 - 400 10? 3 /uL 08/12/2019 6:23 AM [facility] RDW-SD 45.1 36.0 - 50.0 fL 08/12/2019 6:23 AM [facility] RDW-CV 18.1(H) 11.2 - 14.8 % 08/12/2019 6:23 AM [facility] MPV 11.2 9.3 - 12.8 fL 08/12/2019 6:23 AM [facility] nRBC Absolute 0.00 0 10? 3 /uL 08/12/2019 6:23 AM [facility] nRBC Auto 0.0 0 /100 WBC 08/12/2019 6:23 AM [facility] Neutrophils % 67.7 35.0 - 70.0 % 08/12/2019 6:23 AM [facility] Lymphocytes % 23.7 19.7 - 55.1 % 08/12/2019 6:23 AM [facility] Monocytes % 4.9 3.0 - 15.0 % 08/12/2019 6:23 AM [facility] Eosinophils % 3.0 0.0 - 6.0 % 08/12/2019 6:23 AM [facility] Basophil % 0.3 0.0 - 1.5 % 08/12/2019 6:23 AM [facility] Neutrophils Absolute 4.6 1.6 - 7.0 10? 3 /uL 08/12/2019 6:23 AM CDT [facility] Lymphocyte Absolute 1.6 0.8 - 2.9 10? 3 /uL 08/12/2019 6:23 AM CDT [facility] Monocytes Absolute 0.33 0.14 - 0.66 10? 3 /uL 08/12/2019 6:23 AM CDT [facility] Eosinophils Absolute 0.20 0.00 - 0.45 10? 3 /uL 08/12/2019 6:23 AM CDT [facility] Basophils Absolute 0.02 0.00 - 0.06 10? 3 /uL 08/12/2019 6:23 AM CDT [facility] Immature Granulocytes % 0.4 0.0 - 1.0 % 08/12/2019 6:23 AM T [facility] Blood BLOOD SPECIMEN / Unknown Lab Venipuncture / Unknown 08/12/2019 5:45 AM CDT 08/12/2019 5:50 AM CDT Blayne Miller MD LAB - HEMATOLOGY [place] [address] [phone] * (ABNORMAL) RBC MORPHOLOGY (08/11/2019 5:05 AM CDT) Anisocytosis 1+(A) None 08/11/2019 6:18 AM T [facility] Microcytes 1+(A) None 08/11/2019 6:18 AM T [facility] Hypochromia 1+(A) None 08/11/2019 6:18 AM T [facility] Schistocytes Rare(A) None 08/11/2019 6:18 AM T [facility] Ovalocytes Occasional (A) None 08/11/2019 6:18 AM T [facility] Blood BLOOD SPECIMEN / Unknown Lab Venipuncture / Unknown 08/11/2019 5:05 AM CDT 08/11/2019 5:09 AM CDT Blayne Miller MD LAB - HEMATOLOGY [place] [address] [phone] * PT-[facility] (08/11/2019 5:05 AM CDT) Pathologist [facility] PT 14.4 12.1 - 14.8 Seconds 08/11/2019 5:23 AM T [facility] INR 1.2 See Comment 08/11/2019 5:23 AM [facility] Comment: The suggested therapeutic range for standard coumadin (warfarin) therapy is an INR of 2.0-3.0. For high-risk patients (Mechanical Mitral Valve Prosthesis, etc.), the suggested prophylactic therapeutic range is an INR of 2.5-3.5. Blood BLOOD SPECIMEN / Unknown Lab Venipuncture / Unknown 08/11/2019 5:05 AM CDT 08/11/2019 5:09 AM CDT Blayne Miller MD LAB - COAGULATION ORDERABLES Performing Organization Address City/State/[facility] Co de Phone Number [address] [phone] * (ABNORMAL) RENAL FUNCTION PANEL (08/11/2019 5:05 AM CDT) Pathologist [facility] BUN 9 7 - 26 mg/dL 08/11/2019 5:55 AM [facility] Creatinine 0.7 0.6 - 1.2 mg/dL 08/11/2019 5:55 AM [facility] Sodium 139 136 - 145 mmol/L 08/11/2019 5:55 AM [facility] Potassium 3.4(L) 3.5 - 4.5 mmol/L 08/11/2019 5:55 AM [facility] Chloride 109(H) 98 - 107 mmol/L 08/11/2019 5:55 AM [facility] CO2 20(L) 22 - 29 mmol/L 08/11/2019 5:55 AM [facility] Glucose 94 70 - 115 mg/dL 08/11/2019 5:55 AM [facility] Albumin 3.0(L) 3.4 - 5.0 g/dL 08/11/2019 5:55 AM [facility] Calcium 8.4 8.4 - 10.2 mg/dL 08/11/2019 5:55 AM [facility] Phosphorus 2.6 2.3 - 4.7 mg/dL 08/11/2019 5:55 AM [facility] Anion Gap 13 8 - 18 08/11/2019 5:55 AM [facility] BUN/Creatinine Ratio 13 7 - 23 08/11/2019 5:55 AM [facility] Osmolality Calculated 286 270 - 300 mOsm/kg 08/11/2019 5:55 AM [facility] eGFR >60 >60 mL/min/1.7 3 m2 08/11/2019 5:55 AM [facility] Blood BLOOD SPECIMEN / Unknown Lab Venipuncture / Unknown 08/11/2019 5:05 AM CDT 08/11/2019 5:10 AM T Blayne Miller MD LAB - CHEMISTRY OR DERABLES Performing Organization Address City/State/[facility] Co de Phone Number [address] [phone] * (ABNORMAL) CBC W AUTO DIFFERENTIAL (08/11/2019 5:05 AM T) WBC 8.0 3.5 - 10.5 10? 3 /uL 08/11/2019 5:17 AM [facility] RBC 4.39 4.30 - 5.70 10? 6 /uL 08/11/2019 5:17 AM [facility] Hemoglobin 9.0(L) 13.5 - 17.5 g/dL 08/11/2019 5:17 AM [facility] Hematocrit 30.5(L) 39.0 - 50.0 % 08/11/2019 5:17 AM [facility] MCV 69.5(L) 81.0 - 97.0 fL 08/11/2019 5:17 AM [facility] MCH 20.5(L) 28.0 - 34.0 pg 08/11/2019 5:17 AM [facility] MCHC 29.5(L) 32.0 - 36.0 g/dL 08/11/2019 5:17 AM [facility] Platelet Count 317 150 - 400 10? 3 /uL 08/11/2019 5:17 AM [facility] RDW-SD 44.2 36.0 - 50.0 fL 08/11/2019 5:17 AM [facility] RDW-CV 17.8(H) 11.2 - 14.8 % 08/11/2019 5:17 AM [facility] MPV 10.7 9.3 - 12.8 fL 08/11/2019 5:17 AM [facility] nRBC Absolute 0.00 0 10? 3 /uL 08/11/2019 5:17 AM [facility] nRBC Auto 0.0 0 /100 WBC 08/11/2019 5:17 AM [facility] Neutrophils % 82.1(H) 35.0 - 70.0 % 08/11/2019 5:17 AM [facility] Lymphocytes % 12.1(L) 19.7 - 55.1 % 08/11/2019 5:17 AM [facility] Monocytes % 4.3 3.0 - 15.0 % 08/11/2019 5:17 AM [facility] Eosinophils % 1.1 0.0 - 6.0 % 08/11/2019 5:17 AM [facility] Basophil % 0.1 0.0 - 1.5 % 08/11/2019 5:17 AM [facility] Neutrophils Absolute 6.6 1.6 - 7.0 10? 3 /uL 08/11/2019 5:17 AM [facility] Lymphocyte Absolute 1.0 0.8 - 2.9 10? 3 /uL 08/11/2019 5:17 AM [facility] Monocytes Absolute 0.34 0.14 - 0.66 10? 3 /uL 08/11/2019 5:17 AM [facility] Eosinophils Absolute 0.09 0.00 - 0.45 10? 3 /uL 08/11/2019 5:17 AM [facility] Basophils Absolute 0.01 0.00 - 0.06 10? 3 /uL 08/11/2019 5:17 AM [facility] Immature Granulocytes % 0.3 0.0 - 1.0 % 08/11/2019 5:17 AM CDT [facility] Blood BLOOD SPECIMEN / Unknown Lab Venipuncture / Unknown 08/11/2019 5:05 AM CDT 08/11/2019 5:09 AM CDT Blayne Miller MD LAB - HEMATOLOGY O RDERABLES [facility] [address] [phone] * MRI LUMBAR SPINE WWO CONTRAST (08/10/2019 [...] neoplasm infiltration. Dictated by Millie Epstein MD (resident care supervisor). I, Dr. HEMA SOW have personally reviewed and interpreted this examination/study. This report was electronically signed by HEMA SOW ??on 08/11/2019 2:45 PM . Narrative [...] 08/10/2019, outside hospital CT abdomen pelvis dated 08/09/2019-[facility], [place], [place]. FINDINGS: Corresponding to the expansile lytic [...] herniation or bulging is identified. Procedure Note Hema Sow MD - 08/11/2019 EXAMINATION: Magnetic resonance [...] 08/10/2019, outside hospital CT abdomen pelvis dated 08/09/2019-[place], [place]. FINDINGS: Corresponding to the expansile lytic [...] bodies and the intervertebral disc appear normal [id number], L1-L2, and L2-L3 levels. No posterior disc [...] neoplasm infiltration. Dictated by Millie Epstein MD (resident care supervisor). I, Dr. HEMA SOW have personally reviewed and interpreted this examination/study. This report was electronically signed by HEMA SOW on 08/11/2019 2:45 PM . Blayne Miller MD MR ORDERABLES * (ABNORMAL) CULTURE URINE (08/10/2019 9:31 AM CDT) Culture Urine 50,000-100,000 CFU/mL Enterococcus faecalis(A) MAURIZIO 08/12/2019 4:53 AM CDT [facility] MICROBIOLOGY Urine URINE SPECIMEN OBTAINED BY SINGLE CATHETERIZATION OF URINARY BLADDER / Unknown Collection / Unknown 08/10/2019 9:31 AM CDT 08/10/2019 9:44 AM CDT Narrative Organism Antibiotic Method Susceptibility Enterococcus faecalis Ampicillin MAURIZIO <=2 ug/mL: Susceptible Enterococcus faecalis Ciprofloxacin MAURIZIO >=8 ug/mL: Resistant Enterococcus faecalis Doxycycline MAURIZIO >=16 ug/mL: Resistant Enterococcus faecalis Levofloxacin MAURIZIO >=8 ug/mL: Resistant Enterococcus faecalis Linezolid MAURIZIO 2 ug/mL: Susceptible Enterococcus faecalis Nitrofurantoin MAURIZIO <=16 ug/mL: Susceptible Enterococcus faecalis Tetracycline MAURIZIO >=16 ug/mL: Resistant Enterococcus faecalis Vancomycin MAURIZIO 1 ug/mL: Susceptible Tomás Lehman MD LAB - MICROBIOLOGY O RDERABLES [facility] MICROBIOLOGY [address] [place] [address] [phone] * (ABNORMAL) URINALYSIS REFLEX TO MICROSCOPIC NO CULTURE (08/10/2019 9:31 AM CDT) Color UA Yellow Straw, Yellow, Colorless 08/10/2019 10:19 AM CDT [facility] Clarity UA Turbid(A) Clear, Slt Cloudy 08/10/2019 10:19 AM CDT [facility] Specific [place] UA 1.027 1.005 - 1.030 08/10/2019 10:19 AM CDT [facility] pH UA 7.0 5.0 - 8.0 pH 08/10/2019 10:19 AM [facility] Protein UA 2+(A) Negative mg/dL 08/10/2019 10:19 AM [facility] Glucose UA Negative Negative mg/dL 08/10/2019 10:19 AM [facility] Ketone UA 1+(A) Negative mg/dL 08/10/2019 10:19 AM [facility] Bilirubin UA Negative Negative mg/dL 08/10/2019 10:19 AM [facility] Blood UA 3+(A) Negative 08/10/2019 10:19 AM [facility] Nitrite UA Positive(A) Negative 08/10/2019 10:19 AM [facility] Leukocyte Esterase 2+(A) Negative 08/10/2019 10:19 AM [facility] Urobilinogen UA Negative Negative mg/dL 08/10/2019 10:19 AM [facility] RBC UA >100(A) None Seen, 0-2, 3-5 /HPF 08/10/2019 10:19 AM [facility] WBC UA >100(A) None Seen, 0-5 /HPF 08/10/2019 10:19 AM [facility] WBC Clumps Rare(A) None /HPF 08/10/2019 10:19 AM [facility] Bacteria UA 3+(A) None, Trace /HPF 08/10/2019 10:19 AM [facility] Squamous Epithelial Cells UA 3-5(A) None Seen, 0-2 /HPF 08/10/2019 10:19 AM [facility] Urine URINE SPECIMEN OBTAINED BY SINGLE CATHETERIZATION OF URINARY BLADDER / Unknown Collection / Unknown 08/10/2019 9:31 AM CDT 08/10/2019 9:[address] [facility] - 08/10/2019 10:19 AM CDT Tomás Lehman MD LAB - URINALYSIS ORD ERABLES [address] [phone] * PT-INR [facility] (08/10/2019 8:52 AM CDT) Pathologist [facility] PT 13.9 12.1 - 14.8 Seconds 08/10/2019 9:12 AM CDT [facility] INR 1.1 See Comment 08/10/2019 9:12 AM CDT [facility] Comment: The suggested therapeutic range for standard coumadin (warfarin) therapy is an INR of 2.0-3.0. For high-risk patients (Mechanical Mitral Valve Prosthesis, etc.), the suggested prophylactic therapeutic range is an INR of 2.5-3.5. Blood BLOOD SPECIMEN / Unknown Lab Venipuncture / Unknown 08/10/2019 8:52 AM CDT 08/10/2019 9:00 AM CDT Tomás Lehman MD LAB - COAGULATION OR DERABLES Performing Organization Address City/[facility] Co de Phone Number [address] [phone] * TYPE + SCREEN PANEL (08/10/2019 8:52 AM CDT) [facility] Antibody Screen NEG 9 10:05 AM CDT [facility] ABO Rh A POS 08/10/2019 10:05 AM CDT [facility] Blood Bank BLOOD SPECIMEN / Unknown Lab Venipuncture / Unknown 08/10/2019 8:52 AM CDT 08/10/2019 9:14 AM CDT Tomás Lehman MD LAB - BLOOD BANK ORD ERABLES Performing Organization Address City/[facility]/ZIP Co de Phone Number [facility] [address] [place] [address] * FERRITIN (08/10/2019 2:48 AM CDT) [facility] Ferritin 226 22 - 275 ng/mL 08/10/2019 8:24 AM CDT [facility] Blood BLOOD SPECIMEN / Unknown Lab Venipuncture / Unknown 08/10/2019 2:48 AM CDT 08/10/2019 7:46 AM CDT Tomás Lehman MD LAB - CHEMISTRY ELPIDIO VENEGAS Performing Organization Address [facility]/ZIP Co de Phone Number [address] [phone] * (ABNORMAL) TRANSFERRIN (08/10/2019 2:48 AM CDT) Transferrin 163(L) 174 - 382 mg/dL 08/10/2019 8:04 AM CDT [facility] Transferrin Saturation % 16 16 - 50 % 08/10/2019 8:04 AM CDT [facility] Blood BLOOD SPECIMEN / Unknown Lab Venipuncture / Unknown 08/10/2019 2:48 AM CDT 08/10/2019 7:46 AM CDT Tomás Lehman MD LAB - CHEMISTRY [facility]IO VENEGAS Performing Organization Address [facility] Co de Phone Number [address] [phone] * (ABNORMAL) IRON BLOOD (08/10/2019 2:48 AM CDT) Iron 32(L) 50 - 175 mcg/dL 08/10/2019 8:04 AM CDT [facility] Blood BLOOD SPECIMEN / Unknown Lab Venipuncture / Unknown 08/10/2019 2:48 AM CDT 08/10/2019 7:46 AM CDT Tomás Lehman MD LAB - CHEMISTRY [facility]ENEGAS Performing Organization Address City/[facility]/ZIP Co de Phone Number [address] [phone] * (ABNORMAL) ERYTHROCYTE SEDIMENTATION RATE (08/10/2019 2:48 AM CDT) Erythrocyte Sedimentation Rate Westergren >130(H) 0 - 15 MM/HR 08/10/2019 3:27 AM CDT [facility] Blood BLOOD SPECIMEN / Unknown Venipuncture / Unknown 08/10/2019 2:48 AM CDT 08/10/2019 2:56 AM CDT Laura Brumfield MD LAB - HEMATOLOGY ORD ERABLES [address] [phone] * (ABNORMAL) C-REACTIVE PROTEIN (08/10/2019 2:48 AM CDT) C-Reactive Protein 6.3(H) <=0.5 mg/dL 08/10/2019 3:14 AM CDT [facility] Blood BLOOD SPECIMEN / Unknown Venipuncture / Unknown 08/10/2019 2:48 AM CDT 08/10/2019 2:56 AM CDT Laura Brumfield MD LAB - CHEMISTRY [facility]IO VENEGAS Performing Organization Address City/[facility]/ZIP Co de Phone Number [address] [phone] * (ABNORMAL) COMPREHENSIVE METABOLIC PANEL (08/10/2019 2:48 AM CDT) BUN 8 7 - 26 mg/dL 08/10/2019 3:12 AM [facility] Creatinine 0.7 0.6 - 1.2 mg/dL 08/10/2019 3:12 AM [facility] Sodium 138 136 - 145 mmol/L 08/10/2019 3:12 AM [facility] Potassium 3.2(L) 3.5 - 4.5 mmol/L 08/10/2019 3:12 AM [facility] Chloride 106 98 - 107 mmol/L 08/10/2019 3:12 AM [facility] CO2 24 22 - 29 mmol/L 08/10/2019 3:12 AM [facility] Glucose 82 70 - 115 mg/dL 08/10/2019 3:12 AM [facility] Calcium 8.2(L) 8.4 - 10.2 mg/dL 08/10/2019 3:12 AM [facility] Protein Total 7.5 6.0 - 8.3 g/dL 08/10/2019 3:12 AM [facility] Albumin 3.0(L) 3.4 - 5.0 g/dL 08/10/2019 3:12 AM [facility] Bilirubin Total 0.6 0.2 - 1.2 mg/dL 08/10/2019 3:12 AM [facility] Alkaline Phosphatase 110 40 - 150 Units/L 08/10/2019 3:12 AM [facility] ALT 14 0 - 55 Units/L 08/10/2019 3:12 AM [facility] AST 13 5 - 34 Units/L 08/10/2019 3:12 AM [facility] Anion Gap 11 8 - 18 08/10/2019 3:12 AM [facility] BUN/Creatinine Ratio 11 7 - 23 08/10/2019 3:12 AM [facility] Osmolality Calculated 283 270 - 300 mOsm/kg 08/10/2019 3:12 AM [facility] Albumin/Globulin Ratio 0.7(L) 1.1 - 2.3 08/10/2019 3:12 AM [facility] eGFR >60 >60 mL/min/1.7 3 m2 08/10/2019 3:12 AM [facility] Blood BLOOD SPECIMEN / Unknown Venipuncture / Unknown 08/10/2019 2:48 AM CDT 08/10/2019 2:56 AM CDT Laura Brumfield MD LAB - CHEMISTRY ELPIDIO VENEGAS [facility] Organization Address City/State/[facility] Co de Phone Number [facility] [address] [place] [address] * (ABNORMAL) CBC W AUTO DIFFERENTIAL (08/10/2019 2:48 AM CDT) WBC 6.3 3.5 - 10.5 10? 3 /uL 08/10/2019 2:59 AM [facility] RBC 4.32 4.30 - 5.70 10? 6 /uL 08/10/2019 2:59 AM [facility] Hemoglobin 9.1(L) 13.5 - 17.5 g/dL 08/10/2019 2:59 AM [facility] Hematocrit 30.4(L) 39.0 - 50.0 % 08/10/2019 2:59 AM [facility] MCV 70.4(L) 81.0 - 97.0 fL 08/10/2019 2:59 AM [facility] MCH 21.1(L) 28.0 - 34.0 pg 08/10/2019 2:59 AM [facility] MCHC 29.9(L) 32.0 - 36.0 g/dL 08/10/2019 2:59 AM [facility] Platelet Count 313 150 - 400 10? 3 /uL 08/10/2019 2:59 AM [facility] RDW-SD 44.3 36.0 - 50.0 fL 08/10/2019 2:59 AM [facility] RDW-CV 17.5(H) 11.2 - 14.8 % 08/10/2019 2:59 AM [facility] MPV 10.8 9.3 - 12.8 fL 08/10/2019 2:59 AM [facility] nRBC Absolute 0.00 0 10? 3 /uL 08/10/2019 2:59 AM [facility] nRBC Auto 0.0 0 /100 WBC 08/10/2019 2:59 AM [facility] Neutrophils % 68.6 35.0 - 70.0 % 08/10/2019 2:59 AM [facility] Lymphocytes % 23.7 19.7 - 55.1 % 08/10/2019 2:59 AM [facility] Monocytes % 6.0 3.0 - 15.0 % 08/10/2019 2:59 AM [facility] Eosinophils % 1.1 0.0 - 6.0 % 08/10/2019 2:59 AM [facility] Basophil % 0.3 0.0 - 1.5 % 08/10/2019 2:59 AM [facility] Neutrophils Absolute 4.3 1.6 - 7.0 10? 3 /uL 08/10/2019 2:59 AM [facility] Lymphocyte Absolute 1.5 0.8 - 2.9 10? 3 /uL 08/10/2019 2:59 AM [facility] Monocytes Absolute 0.38 0.14 - 0.66 10? 3 /uL 08/10/2019 2:59 AM CDT [facility] Eosinophils Absolute 0.07 0.00 - 0.45 10? 3 /uL 08/10/2019 2:59 AM CDT [facility] Basophils Absolute 0.02 0.00 - 0.06 10? 3 /uL 08/10/2019 2:59 AM CDT [facility] Immature Granulocytes % 0.3 0.0 - 1.0 % 08/10/2019 2:59 AM CDT [facility] Blood BLOOD SPECIMEN / Unknown Venipuncture / Unknown 08/10/2019 2:48 AM CDT 08/10/2019 2:56 AM CDT Laura Brumfield MD LAB - HEMATOLOGY ORD ERABLES [address] [phone] * CT THORACIC SPINE WO CONTRAST (08/10/2019 [...] 08/10/2019 5:56 PM . I, Dr. MISA SEVERINO have personally reviewed and interpreted this examination/study. This report was electronically signed by MISA SEVERINO ??on 08/10/2019 5:56 PM . Narrative 08/10/2019 [...] bladder stones are incidentally imaged. Procedure Note Mahmoud, Shamseldeen Y, MD - 08/10/2019 CT CERVICAL SPINE WO [...] by Hakeem Beckman on 08/10/2019 5:56 PM. Constantino, Dr. MISA SEVERINO have personally reviewed and interpreted this examination/study. This report was electronically signed by MISA SEVERINO on08/10/2019 5:56 PM . Laura Brumfield MD [...] Beckman ?? on 08/10/2019 5:[address] MISA Meeks have personally reviewed and interpreted this examination/study. This report was electronically signed by MISA SEVERINO ??on 08/10/2019 5:56 PM . Narrative 08/10/2019 [...] stones are incidentally imaged. Procedure Note Misa Severino MD - 08/10/2019 CT CERVICAL SPINE WO [...] by Hakeem Beckman on 08/10/2019 5:56 PM. IDr. MISA have personally reviewed and interpreted this examination/study. This report was electronically signed by MISA SEVERINO on08/10/2019 5:56 PM . Laura Brumfield MD CT ORDERABLES * CT LUMBAR SPINE WO CONTRAST (08/10/2019 [...] Beckman ?? on 08/10/2019 5:56 PM . IDr. MISA have personally reviewed and interpreted this examination/study. This report was electronically signed by MISA SEVERINO ??on 08/10/2019 5:56 PM . Narrative 08/10/2019 [...] stones are incidentally imaged. Procedure Note Misa Severino MD - 08/10/2019 CT CERVICAL SPINE WO [...] on 08/10/2019 5:56 PM. I, Dr. MISA SEVERINO have personally reviewed and interpreted this examination/study. This report was electronically signed by MISA SEVERINO on08/10/2019 5:56 PM . 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 0.9% NaCl injection 3 mL 3 mL, Intracatheter, EVERY 8 HOURS, First dose on Wed08/09/19 at 2330, Until Discontinued, Flush peripheral IV catheter with 3 mL of normal saline every 8 hours. $ Given 08/26/2019 5:25 AM CDT 3 mL $ Given 08/25/2019 9:21 PM CDT 3 mL $ Given 08/25/2019 2:33 PM CDT 3 mL 0.9% NaCl IV Bolus 1,000 mL, at 983.61 mL/hr, Administer over 61 Minutes, BOLUS IV, 1 dose, On Wed08/09/19 at 2300, Monitor closely and notify physician for persistent hypotension during initial 60 minutes after crystalloid 30 ml/kg bolus stop time. (hypotension = SBP LESS than 90 mmHg or MAP LESS than 65 mmHg or decrease in SBP by more than 40 mmHg from last SBP considered normal for patient) Patient has a BMI greater than 30 or obesity. [place] Body Weight used for sepsis bolus dosing. $ New Bag/Syringe 08/09/2019 11:07 PM CDT 1,000 mL 983.61 mL/hr 0.9% NaCl IV Bolus 1,000 mL, at 3,750 mL/hr, Administer over 16 Minutes, NOW, 1 dose, On Ramandeep 08/10/19 at 0145 $ New Bag/Syringe 08/10/2019 2:59 AM CDT 1,000 mL 3750 mL/hr acetaminophen (TYLENOL) tablet 650 mg 650 mg, Oral, EVERY 6 HOURS PRN, Fever, Mild Pain, Moderate Pain, Starting on Wed08/11/19 at 0055, Until 08/26/19 at 1842 $ Given 08/26/2019 4:48 AM CDT 650 mg $ Given 08/24/2019 7:32 AM CDT 650 mg $ Given 08/23/2019 12:15 PM CDT 650 mg amLODIPine (NORVASC) tablet 10 mg 10 mg, Oral, DAILY, First dose on Ramandeep 08/10/19 at 0900, Until Discontinued $ Given 08/26/2019 9:37 AM CDT 10 mg $ Given 08/25/2019 9:07 AM CDT 10 mg $ Given 08/24/2019 9:24 AM CDT 10 mg busPIRone (BUSPAR) tablet 10 mg 10 mg, Oral, 3 TIMES DAILY, First dose on Wed08/11/19 at 1400, Until Discontinued $ Given 08/26/2019 2:53 PM CDT 10 m g $ Given 08/26/2019 9:37 AM CDT 10 mg $ Given 08/25/2019 9:19 PM CDT 10 mg carvedilol (COREG) tablet 6.25 mg 6.25 mg, Oral, 2 TIMES DAILY WITH MEALS, First dose on Wed08/11/19 at 1700, Until Discontinued, Take with food $ Given 08/26/2019 9:37 AM CDT 6.25 mg $ Given 08/25/2019 5:34 PM CDT 6.25 mg $ Given 08/25/2019 9:07 AM CDT 6.25 mg cyclobenzaprine (FLEXERIL) tablet 10 mg 10 mg, Oral, 3 TIMES DAILY PRN, Muscle Spasms, Starting on Wed08/11/19 at 0524, Until 08/26/19 at 1842 $ Given 08/26/2019 4:48 AM CDT 10 mg $ Given 08/25/2019 9:15 AM CDT 10 mg $ Given 08/23/2019 12:15 PM CDT 10 mg dextrose 5 % and 0.45% NaCl infusion at 75 mL/hr, Intravenous, CONTINUOUS, Starting on Wed08/10/19 at 0715, Until Wed08/10/19 at 0955 $ New Bag/Syringe 08/10/2019 8:46 AM CDT 75 mL/hr 75 mL/hr diphenhydrAMINE (BENADRYL) injection 25 mg 25 mg, Intravenous, ONCE, 1 dose, On Wed08/11/19 at 0400, Administer IV at a rate not exceeding 25 mg/min. Can dilute in 5-10 mL NS as needed for patient comfort. $ Given 08/11/2019 4:12 AM CDT 25 mg enoxaparin (LOVENOX) injection 40 mg 40 mg, Subcutaneous, DAILY, First dose on Wed08/11/19 at 1145, Until Discontinued, (for prefilled syringes) do not expel air bubble from the syringe prior to the injection Remind Patient to not rub injection site. Could cause hematoma. $ Given 08/14/2019 8:50 AM CDT 40 mg Abdominal Tissue $ Given 08/13/2019 8:02 AM CDT 40 mg Ab dominal Tissue $ Given 08/12/2019 8:59 AM CDT 40 mg Ab dominal Tissue enoxaparin (LOVENOX) injection 40 mg 40 mg, Subcutaneous, DAILY, First dose on Wed08/23/19 at 1530, Until Discontinued, (for prefilled syringes) do not expel air bubble from the syringe prior to the injection Remind Patient to not rub injection site. Could cause hematoma. $ Given 08/26/2019 9:38 AM CDT 40 mg Right Arm $ Given 08/25/2019 9:06 AM CDT 40 mg Ab dominal Tissue $ Given 08/24/2019 9:24 AM CDT 40 mg Ab dominal Tissue fentaNYL (PF) (SUBLIMAZE) injection Intravenous, ONCE PRN, Starting on Wed08/15/19 at 1430, Until Wed08/15/19 at 1430 $ Given 08/15/2019 2:30 P M CDT 50 mcg fentaNYL (PF) (SUBLIMAZE) injection Intravenous, ONCE PRN, Starting on Wed08/22/19 at 1545, Until Wed08/22/19 at 1552 $ Given 08/22/2019 3:52 PM CDT 25 mcg $ Given 08/22/2019 3:45 PM CDT 25 mcg gadobutrol (GADAVIST) injection Intravenous, CONTRAST ONCE, Starting on Ramandeep 08/10/19 at 1758, Until Wed08/12/19 at 1757 $ Given - Contrast 08/10/2019 5:59 PM CDT 10 mL heparin injection 5,000 Units 5,000 Units, Subcutaneous, EVERY 8 HOURS, 5 doses, First dose on Wed08/19/19 at 1400, Last dose on 08/20/19 at 2200 $ Given 08/20/2019 10:10 PM CDT 5,000 Units Right Arm $ Given 08/20/2019 3:14 PM CDT 5,000 Units A bdominal Tissue $ Given 08/20/2019 5:31 AM CDT 5,000 Units A bd Left Lower Quadrant HYDROmorphone (DILAUDID) injection 0.2 mg 0.2 mg, Intravenous, ONCE, 1 dose, On Wed08/11/19 at 1000 $ Given 08/11/2019 10:00 AM CDT 0.2 mg ketorolac (TORADOL) injection 60 mg 60 mg, Intramuscular, ONCE, 1 dose, On Wed08/11/19 at 0200 $ Given 08/11/2019 2:11 AM CDT 60 mg Abdominal Tissue lidocaine (LIDODERM) 5 % patch 1 patch 1 patch, Administer over 12 Hours, DAILY, First dose on Wed08/23/19 at 1030, Until Discontinued, Apply on the back and remove patch after a max of 12 hours of application within a 24 hour period. $ Applied 08/24/2019 9:24 AM CDT 1 patch Abdominal Tissue $ Applied 08/23/2019 12:15 PM CDT 1 patch A bdominal Tissue lidocaine (XYLOCAINE) 1 % injection Subcutaneous, ONCE PRN, Starting on Wed08/15/19 at 1420, Until Wed08/15/19 at 1439 $ Given 08/15/2019 2:39 PM CDT 5 mL Se e Comments $ Given 08/15/2019 2:20 PM CDT 5 mL Se e Comments lidocaine (XYLOCAINE) 1 % injection Subcutaneous, ONCE PRN, Starting on Wed08/22/19 at 1540, Until Wed08/22/19 at 1540 $ Given 08/22/2019 3:40 PM CDT 10 mL See Comments lisinopril (PRINIVIL; ZESTRIL) tablet 10 mg 10 mg, Oral, DAILY, First dose on Wed08/11/19 at 1300, Until Discontinued $ Given 08/26/2019 9:37 AM CDT 10 mg $ Given 08/25/2019 9:08 AM CDT 10 mg $ Given 08/24/2019 9:24 AM CDT 10 mg midazolam (VERSED) injection Intravenous, ONCE PRN, Starting on Wed08/15/19 at 1431, Until Wed08/15/19 at 1431 $ Given 08/15/2019 2:31 PM CDT 1 mg midazolam (VERSED) injection Intravenous, ONCE PRN, Starting on Wed08/22/19 at 1545, Until Wed08/22/19 at 1545 $ Given 08/22/2019 3:45 PM CDT 0.5 mg morphine injection 1 mg 1 mg, Intravenous, ONCE, 1 dose, On Wed08/11/19 at 0400 $ Given 08/11/2019 4:14 AM CDT 1 mg ondansetron (ZOFRAN) injection 4 mg 4 mg, Intravenous, NOW, 1 dose, On Ramandeep 08/10/19 at 0145, Administer over 2 to 5 minutes. $ Given 08/10/2019 1:43 AM CDT 4 mg oxybutynin (DITROPAN) tablet 5 mg 5 mg, Oral, ONCE, 1 dose, On Wed08/11/19 at 0545 $ Given 08/11/2019 6:36 AM CDT 5 mg oxybutynin CR 24hr (DITROPAN-XL) tablet 5 mg 5 mg, Oral, DAILY, First dose on Wed08/11/19 at 1300, Until Discontinued, Do not crush, chew, or cut in half. $ Given 08/26/2019 9:38 AM CDT 5 mg $ Given 08/25/2019 9:07 AM CDT 5 mg $ Given 08/24/2019 9:24 AM CDT 5 mg piperacillin - tazobactam (ZOSYN) 3.375 g in 0.9% NaCl 55 mL IVPB 3.375 g, at 110 mL/hr, Intravenous, ONCE, 1 dose, On Ramandeep 08/10/19 at 0030, Infuse only initial dose of piperacillin-tazobactam over 30 min. Subsequent doses start 6 hours after initial dose and infused over 4 hours. (50 mL bag + 5 mL of bag overfill = 55 mL total volume to be infused), Indication for anti-infective therapy: Documented infection, Site of anti-infective therapy: Urine/Genitourinary $ New Bag/Syringe 08/10/2019 1:09 AM CDT 3.375 g 110 mL/hr piperacillin - tazobactam (ZOSYN) 3.375 g in 0.9% NaCl 55 mL IVPB 3.375 g, at 13.75 mL/hr, Intravenous, EVERY 8 HOURS, First dose on Ramandeep 08/10/19 at 0615, Until Discontinued, (50 mL bag + 5 mL of bag overfill = 55 mL total volume to be infused), Indication for anti-infective therapy: Documented infection, Site of anti-infective therapy: Urine/Genitourinary $ New Bag/Syringe 08/11/2019 6:45 AM CDT 3.375 g 13.75 mL/hr $ New Bag/Syringe 08/10/2019 10:17 PM CDT 3.375 g 13.75 mL/hr $ New Bag/Syringe 08/10/2019 2:20 PM CDT 3.375 g 13.75 mL/hr polyethylene glycol 3350 (MIRALAX) packet 17 g 17 g, Oral, 2 TIMES DAILY, First dose on Ramandeep 08/17/19 at 1015, Until Discontinued, Mix in 8 ounces of water, juice, soda, coffee or tea prior to administration $ Given 08/23/2019 9:13 AM CDT 17 g $ Given 08/17/2019 2:17 PM CDT 17 g potassium chloride ER (KLOR-CON M) tablet 20 mEq 20 mEq, Oral, ONCE, 1 dose, On Wed08/11/19 at 1245, Do not crush or chew. $ Given 08/11/2019 1:22 PM CDT 20 mE q potassium chloride ER (KLOR-CON M) tablet 20 mEq 20 mEq, Oral, ONCE, 1 dose, On 08/12/19 at 1130, Do not crush or chew. $ Given 08/12/2019 12:31 PM CDT 20 m Eq prochlorperazine (COMPAZINE) injection 5 mg 5 mg, Intravenous, ONCE, 1 dose, On Wed08/11/19 at 0400, Max intravenous rate = 5 mg/min $ Given 08/11/2019 4:13 AM CDT 5 mg saline nasal spray (OCEAN; BABY AYR) 0.65 % nasal spray 1 spray 1 spray, Each Nostril, EVERY 2 HOURS PRN, Dry Nose, Starting on 08/20/19 at 0437, Until 08/26/19 at 1842 $ Given 08/20/2019 5:31 AM CDT 1 spray senna-docusate (SENOKOT-S) tablet 2 tablet 2 tablet, Oral, 2 TIMES DAILY, First dose on Ramandeep 08/17/19 at 1030, Until Discontinued $ Given 08/23/2019 9:13 AM CDT 2 tablets $ Given 08/22/2019 8:31 PM CDT 2 tablets $ Given 08/21/2019 8:54 PM CDT 2 tablets traMADol (ULTRAM) tablet 50 mg 50 mg, Oral, ONCE, 1 dose, On Wed08/22/19 at 2145 $ Given 08/22/2019 9:37 PM CDT 50 mg documented in this encounter Active and Recently Administered Medications Times are shown in CDT. Scheduled Medication Order 08/24/2019 08/25/2019 08/26/2019 0.9% NaCl injection 3 mL(Linked Group 1) 3 mL, Intracatheter, EVERY 8 HOURS, First dose on Wed08/09/19 at 2330, Until Discontinued, Flush peripheral IV catheter with 3 mL of normal saline every 8 hours. 0729 (Not Administered - Provider: Hortencia Rios RN - Reason: See Comments)1453 ($ Given - Provider: Hortencia Rios RN)2202 ($ Given - Provider: Elly Perez RN) 0435 ($ Given - Provider: Elly Perez, PARAM)1433 ($ Given - Provider: Leyda Lomeli RN)2121 ($ Given - Provider: Kamille Lewis RN) 0525 ($ Given - Provider: Kamille Lewis RN)1357 (Not Administered - Provider: Leyda Lomeli RN - Reason: Loss of Access) amLODIPine (NORVASC) tablet 10 mg 10 mg, Oral, DAILY, First dose on Wed08/10/19 at 0900, Until Discontinued 0924 ($ Given - Provider: Hortencia Rios RN) 0907 ($ Given - Provider: Leyda Lomeli RN) 0937 ($ Given - Provider: Leyda Lomeli RN) busPIRone (BUSPAR) tablet 10 mg 10 mg, Oral, 3 TIMES DAILY, First dose on Wed08/11/19 at 1400, Until Discontinued 0924 ($ Given - Provider: Hortencia Rios RN)1453 ($ Given - Provider: Hortencia Rios RN)2202 ($ Given - Provider: Elly Perez RN) 0908 ($ Given - Provider: Leyda Lomeli RN)1432 ($ Given - Provider: Leyda Lomeli RN)2119 ($ Given - Provider: Kamille Lewis RN) 0937 ($ Given - Provider: Leyda Lomeli RN)1453 ($ Given - Provider: Leyda Lomeli RN) carvedilol (COREG) tablet 6.25 mg 6.25 mg, Oral, 2 TIMES DAILY WITH MEALS, First dose on Wed08/11/19 at 1700, Until Discontinued, Take with food 0732 ($ Given - Provider: Hortencia Rios RN)1758 ($ Given - Provider: Hortencia Rios RN) 0907 ($ Given - Provider: Leyda Lomeli RN)1734 ($ Given - Provider: Leyda Lomeli RN) 0937 ($ Given - Provider: Leyda Lomeli RN)1700 (Due) enoxaparin (LOVENOX) injection 40 mg 40 mg, Subcutaneous, DAILY, First dose on Wed08/23/19 at 1530, Until Discontinued, (for prefilled syringes) do not expel air bubble from the syringe prior to the injection Remind Patient to not rub injection site. Could cause hematoma. 0924 ($ Given - Provider: Hortencia Rios RN) 0906 ($ Given - Provider: Leyda Lomeli RN) 0938 ($ Given - Provider: Leyda Lomeli RN) lidocaine (LIDODERM) 5 % patch 1 patch 1 patch, Administer over 12 Hours, DAILY, First dose on Wed08/23/19 at 1030, Until Discontinued, Apply on the back and remove patch after a max of 12 hours of application within a 24 hour period. 0006 (Removed - Provider: Cyndy Price V)0924 ($ Applied - Provider: Hortencia Rios RN)2203 (Removed - Provider: Elly Perez RN) 0908 (Not Administered - Provider: Leyda Lomeli RN - Reason: Refused-Patient) 0939 (Not Administered - Provider: Leyda Lomeli RN - Reason: Refused-Patient) lisinopril (PRINIVIL; ZESTRIL) tablet 10 mg 10 mg, Oral, DAILY, First dose on Wed08/11/19 at 1300, Until Discontinued 0924 ($ Given - Provider: Hortencia Rios RN) 0908 ($ Given - Provider: Leyda Lomeli RN) 0937 ($ Given - Provider: Leyda Lomeli RN) oxybutynin CR 24hr (DITROPAN-XL) tablet 5 mg 5 mg, Oral, DAILY, First dose on Wed08/11/19 at 1300, Until Discontinued, Do not crush, chew, or cut in half. 0924 ($ Given - Provider: Hortencia Rios RN) 09 ($ Given - Provider: Leyda Lomeli RN) 0938 ($ Given - Provider: Leyda Lomeli RN) polyethylene glycol 3350 (MIRALAX) packet 17 g 17 g, Oral, 2 TIMES DAILY, First dose on Wed08/17/19 at 1015, Until Discontinued, Mix in 8 ounces of water, juice, soda, coffee or tea prior to administration 0739 (Not Administered - Provider: Hortencia Rios RN - Reason: Refused-Patient)2200 (Not Administered - Provider: Elly Perez RN - Reason: Refused-Patient) 09 (Not Administered - Provider: Leyda Lomeli RN - Reason: Refused-Patient)2119 (Not Administered - Provider: Kamille Lewis RN - Reason: Refused-Patient) 09 (Not Administered - Provider: Leyda Lomeli RN - Reason: Refused-Patient) senna-docusate (SENOKOT-S) tablet 2 tablet 2 tablet, Oral, 2 TIMES DAILY, First dose on Wed08/17/19 at 1030, Until Discontinued 0739 (Not Administered - Provider: Hortencia Rios RN - Reason: Refused-Patient)2200 (Not Administered - Provider: Elly Perez RN - Reason: Refused-Patient) 09 (Not Administered - Provider: Leyda Lomeli RN - Reason: Refused-Patient)2119 (Not Administered - Provider: Kamille Lewis RN - Reason: Refused-Patient) 09 (Not Administered - Provider: Leyda Lomeli RN - Reason: Refused-Patient) PRN Medication Order 08/24/2019 08/25/2019 08/26/2019 0.9% NaCl injection 1-10 mL(Linked Group 1) 1-10 mL, Intracatheter, PRN, Other, peripheral line flush, Starting on Wed08/09/19 at 2249, Until 08/26/19 at 1842, Flush peripheral IV catheter with 1-10 mL of normal saline before and after medications and prn to clear blood from the line or to verify patency. acetaminophen (TYLENOL) tablet 650 mg 650 mg, Oral, EVERY 6 HOURS PRN, Fever, Mild Pain, Moderate Pain, Starting on Wed08/11/19 at 0055, Until 08/26/19 at 1842 0732 ($ Given - Provider: Hortencia Rios, RN) 0448 ($ Given - Provider: Kamille Lewis, RN) cyclobenzaprine (FLEXERIL) tablet 10 mg 10 mg, Oral, 3 TIMES DAILY PRN, Muscle Spasms, Starting on Wed08/11/19 at 0524, Until 08/26/19 at 1842 0915 ($ Given - Provider: Leyda Lomeli, PARAM) 0448 ($ Given - Provider: Kamille Lewis, RN) saline nasal spray (OCEAN; BABY AYR) 0.65 % nasal spray 1 spray 1 spray, Each Nostril, EVERY 2 HOURS PRN, Dry Nose, Starting on Wed08/20/19 at 0437, Until 08/26/19 at 1842 Linked Groups Order Group 1: SALINE LOCK, INSERT AND MAINTAIN (CANCELED) Routine, CONTINUOUS, Starting on Wed08/09/19 at 2300, Until Specified, New collection And 0.9% NaCl injection 3 mLJump to med 3 mL, Intracatheter, EVERY 8 HOURS, First dose on Wed08/09/19 at 2330, Until Discontinued, Flush peripheral IV catheter with 3 mL of normal saline every 8 hours. And 0.9% NaCl injection 1-10 mLJump to med 1-10 mL, Intracatheter, PRN, Other, peripheral line flush, Starting on Wed08/09/19 at 2249, Until 08/26/19 at 1842, Flush peripheral IV catheter with 1-10 mL of normal saline before and after medications and prn to clear blood from the line or to verify patency. documented in this encounter
--- OUTSIDE RECORDS SUMMARY | 2024-11-11 02:06 | XMS_ITS | Encounter Summary ---
Author Organization [facility] Address [address] [place] [address] Phone Care Team Providers Care Embedded Nurse Name Role Phone Unavailable Primary Care Provider Unavailabl e Encounter Details Date Type Department Care Team (Late st Contact Info) Description 07/22/2022 Telephone [facility] - Gastroenterology - [address] [place] [address] Steffany Henderson, PAC [address] [place], [place] [id number] Social History Tobacco Use Types Packs/Day Years Used Date Smoking Tobacco: Never Assessed Sex and Gender Information Value Date Recorded Sex Assigned at Not on file Legal Sex Male 12:27 PM CDT Gender Identity Not on file Sexual Orientation Not on file documented as of this encounter Miscellaneous Notes * Telephone Encounter - Valencia Petty - 07/22/2022 9:36 AM CDT Kellie from [facility] calling to schedule. I made her aware we need a referral to schedule him. She stated she would fax it to the office. documented in this encounter Plan of Treatment Not on file documented as of this encounter Visit Diagnoses Not on filedocumented in this encounter
--- OUTSIDE RECORDS SUMMARY | 2024-11-11 02:06 | XMS_ITS | Clinical Summary ---
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 Role Phone Unavailable Primary Care Provider Unavailabl e Social History Tobacco Use Types Packs/Day Years Used Date Smoking Tobacco: Never Assessed Sex and Gender Information Value Date Recorded Sex Assigned at Not on file Legal Sex Male 12:27 PM CDT Gender Identity Not on file Sexual Orientation Not on file Plan of Treatment Health Maintenance Due Date Last Done Comments Hepatitis C Virus (HCV) Screening 1985 TdaP Immunization 1983 Hepatitis B Immunization (1 of 3 - 19+ 3-dose series) 2002 SARS-COV-2 Immunization (2022- season) 2023 01/26/2022, 02/07/2021 Influenza Immunization (#1) 2024 Meningococcal Immunization (ACWY) Aged Out No longer eligible b ased on patient's age to complete this topic Pneumococcal Immunization Combined Aged Out No longer eligible b ased on patient's age to complete this topic Rotavirus Immunization Aged Out No lo nger eligible based on patient's age to complete this [place] [address] MEDICAID [facility] MEDICARE
--- OUTSIDE RECORDS SUMMARY | 2024-11-11 02:08 | XMS_ITS | Clinical Summary ---
Author Organization [facility] Address [address] [place] [address] Care Team Providers Care Spray Gunner Name Role Phone Rick Carpio MD Primary Care Provider Allergies Active Allergy Reactions Criticality Noted Date Comments Metoclopramide Anaphylaxis,Angioedema High 9 Medications gabapentin (NEURONTIN) 300 mg capsule Take 300 mg by mouth nightly Active pantoprazole DR (PROTONIX) 40 mg EC tabletIndicati ons:Treatment of Non-Bleeding Gastric Disorder Take 1 tablet (40 mg total) by mouth 2 (two) times a day before breakfast and dinner 60 tablet 11 1 Active cyclobenzaprin e (FLEXERIL) 5 mg tablet Take 1 tablet (5 mg total) by mouth 3 (three) times a day as needed for muscle spasms 30 tablet 1 Active polyethylene glycol (MIRALAX) 17 gram packetIndicati ons:constipati on Take 1 packet (17 g total) by mouth daily as needed for constipation 1 Active senna-docusate (PERICOLACE) 8.6-50 mgIndications: constipation Take 1 tablet by mouth 2 (two) times a day 1 Active acetaminophen 500 mg capsule Take 1 capsule (500 mg total) by mouth every 6 (six) hours as needed for pain 30 tablet 1 Active fentaNYL (DURAGESIC) 50 mcg/hr Place 1 patch on the skin every third day Active propranoloL (INDERAL) 40 mg tablet Take 1 tablet (40 mg total) by mouth 2 (two) times a day 60 tablet 2 Active ALPRAZolam (XANAX) 0.25 mg tablet Take 1 tablet (0.25 mg total) by mouth 2 (two) times a day 4 Active folic acid (FOLVITE) 1 mg tablet Take 1 tablet (1 mg total) by mouth daily 4 10/10/20 25 Active ibuprofen (ADVIL,MOTRIN) 400 mg tablet Take 1 tablet (400 mg total) by mouth every 4 (four) hours as needed for pain 4 Active cefTRIAXone (ROCEPHIN) syringeIndicat ions:Bone/Join t Infection Infuse 20 mL (2,000 mg total) into a venous catheter daily for 3 days 4 10/13/20 24 metroNIDAZOLE (FLAGYL) 500 mg tabletIndicati ons:Sepsis,Ski n/Soft Tissue Infection,Urin keyon Tract/Genitour inary Infection Take 1 tablet (500 mg total) by mouth 2 (two) times a day for 4 days 4 10/13/20 24 Active Problems Problem Noted Date Diagnosed Date Pressure injury of buttock, unstageable, unspecified laterality 09/27/2024 Assessment & Plan (10/02/2024 11:25 AM FRAMER): 39 y.o. 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 Afebrile, tachycardic, but stable on admit. Found to have large decubitus wounds with necrosis and purulence with leukocytosis. CT c/f acute ischial and sacral OM with phlegmon posterior to sacrum and progressive osseous destruction. OR 09/29 with general surgery for excisional debridement of the skin, subc tissue, fascia and bone. 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 PRS consult this morning, plan for flap coverage pending. For now, plan to treat for short duration for SSTI. When/if pt gets flap coverage will treat with hope to cure osteomyelitis per cx data at the time of flap. Recommendations: -Discontinue linezolid, cefepime. -Start ceftriaxone 2g IV q24h. -Continue metronidazole 500mg PO q12h. -CBC with diff, CMP weekly. -ID to follow for PRS plan. 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 Given this, and after extensive discussion with patients treatment team, would not recommend any further imaging or antibiotics at this time. - Discussed with patient the rational for treatment, culture results, risk of recurrent infection, signs/symptoms of recurrent infection, and to contact ID clinic with any questions or concerns. Assessment & Plan (07/07/2021 12:34 PM CDT): - Will stop IV abx at this point as pt has completed 6 weeks of IV abx. Given new fluid collection on recent imaging, and pt's chronic infection and lack of surgical options, will switch to PO abx with doxycycline 100mg BID and augmenting 875- 125mg BID for continued treatment of lumbosacral discitis/osteomyelitis with epidural abscess and paracolic fluid collection. - Will refer pt to [facility] [place] for possible drainage, culture ordered as well. - Labs today: CBC, CMP, ESR, CRP - Discussed with patient the rational for treatment, culture results, risk of recurrent infection, signs/symptoms of recurrent infection, and to contact ID clinic with any questions or concerns. - Doxycycline causes photosensitivity and patients should be advised to monitor sun exposure, including increased use of skin-protective clothing and sunscreen, and avoidance of tanning. Doxycycline may result in GI upset. In order to minimize the risk of esophageal ulceration, patients should be advised to take the medication with 8 ounces of water and remain sitting for 30 minutes after taking the pill. Rarely, doxycycline can be associated with pancreatitis, pseudotumor cerebri, elevated LFTs, esophageal ulceration, black tongue syndrome (reversible fungus infection that goes away with drug discontinuation). Divalent cations should be administered 4 hours before or after doxycycline if they are necessary. - Augmentin can be associated with GI intolerance, diarrhea, rash, leukopenia, thrombocytopenia, interstitial nephritis, LFT elevation, cholestatic hepatitis. Assessment & Plan (06/17/2021 1:05 PM CDT): - Given worsening again shown on most recent MRI 06/06/21, will reach out to inpatient to team to discuss plan of care. - May need to refer patient to IR for drain placement given ortho spines hesitancy to operate given high risk for patient to undergo any surgical intervention. - Continue daptomycin 550mg IV q 24hrs, Cefepime 2g IV q 12 hrs, and metronidazole 500mg q 8 hrs for treatment of lumbosacral discitis/osteomyelitis with epidural abscess and parcolic fluid collection. - Discussed with patient the rational for treatment, culture results, risk of recurrent infection, signs/symptoms of recurrent infection, and to contact ID clinic with any questions or concerns. - Daptomycin is generally well tolerated. Weekly CPK should be checked to monitor for dose dependent CPK elevation with or without myopathy. Daptomycin may also cause LFT, LDH, and INR elevations. INR elevation is falsely prolonged and there is no anticoagulation effect in vivo. This falsely elevated INR can be minimized by drawing the INR 24 hours after daptomycin is administered. Rarely, daptomycin can cause neuropathy, jaundice, or eosinophilic pneumonia. CBC and CMP should be checked 1x/week while on the drug. Daptomycin discontinuation in patients with elevated CPK should occur according to the following conditions: Asymptomatic patients - discontinue daptomycin if the CPK is >10x the upper limit of normal. Symptomatic patients or sedated/non-verbal patients, discontinue daptomycin if the CPK is >5x the upper limit of normal. - Cefepime may be associated with allergic reactions, diarrhea, but is overall well tolerated. Rarely, may be associated with convulsions, encephalopathy, myoclonus, confusion, hallucinations, neutropenia, thrombocytopenia, hepatitis, hemolytic anemia, agranulocytosis. Therefore, CBC and CMP should be checked weekly while on this medication. - Metronidazole is associated with GI intolerance, metallic taste, headaches, dark urine. Rarely, it can be associated with seizures, encephalopathy, aseptic meningitis, Falcon-Josse syndrome, peripheral neuropathy, insomnia, and a disulfiram-like reaction with alcohol. Patients are advised to avoid alcohol while taking the medication. Assessment & Plan (05/15/2021 10:59 AM CDT): - Continue Augmentin 875-125mg BID for treatment of lumbosacral spine fluid collection/abscess in the context of neurogenic spine, Cx + E.coli. No surgical control pursued as pt not good candidate. - Order repeat MRI to evaluate progress on abx. - ESR/CRP today - Orders provided to SNF. - Discussed with patient the rational for treatment, culture results, risk of recurrent infection, signs/symptoms of recurrent infection, and to contact ID clinic with any questions or concerns - Augmentin can be associated with GI intolerance, diarrhea, rash, leukopenia, thrombocytopenia, interstitial nephritis, LFT elevation, cholestatic hepatitis. Discharge planning issues 04/10/2021 Assessment & Plan (04/11/2021 11:09 AM CDT): Preferred not to go back to previous facility and be closer here, SNF referral placed Assessment & Plan (04/10/2021 10:46 AM CDT): SNF referral Hyponatremia 03/29/2021 Assessment & Plan (04/11/2021 11:08 AM CDT): No symptoms. unclear etiology, ?possible volume overload. Urine osm 388, urine Na 70, ser osm 276 c/w hypotonic hyponatremia. On RA, urinating well. Not grossly volume overloaded. BNP mildly elevated. CXR with mild CM. Stable low 130s. Assessment & Plan (04/10/2021 10:45 AM CDT): No symptoms. unclear etiology, ?possible volume overload. Urine osm 388, urine Na 70, ser osm 276 c/w hypotonic hyponatremia. On RA, urinating well. Not grossly volume overloaded. BNP mildly elevated. CXR with mild CM. Stable low 130s. - Monitor. Assessment & Plan (04/09/2021 1:14 PM CDT): No symptoms. unclear etiology, ?possible volume overload. Urine osm 388, urine Na 70, ser osm 276 c/w hypotonic hyponatremia. On RA, urinating well. Not grossly volume overloaded. BNP mildly elevated. CXR with mild CM. Stable low 130s. - Monitor. Assessment & Plan (04/08/2021 11:28 AM CDT): No symptoms. unclear etiology, ?possible volume overload. Urine osm 388, urine Na 70, ser osm 276 c/w hypotonic hyponatremia. On RA, urinating well. Not grossly volume overloaded. BNP mildly elevated. CXR with mild CM. Stable low 130s. - Monitor. Assessment & Plan (04/07/2021 12:21 PM CDT): No symptoms. unclear etiology, ?possible volume overload. Urine osm 388, urine Na 70, ser osm 276 c/w hypotonic hyponatremia. On RA, urinating well. Not grossly volume overloaded. BNP mildly elevated. CXR with mild CM. Stable low 130s. - Monitor. Assessment & Plan (04/06/2021 3:09 PM CDT): No symptoms. unclear etiology, ?possible volume overload. Urine osm 388, urine Na 70, ser osm 276 c/w hypotonic hyponatremia. On RA, urinating well. Not grossly volume overloaded. BNP mildly elevated. CXR with mild CM. Stable low 130s. - Monitor. Assessment & Plan (04/05/2021 10:40 AM CDT): No symptoms. unclear etiology, ?possible volume overload. Urine osm 388, urine Na 70, ser osm 276 c/w hypotonic hyponatremia. On RA, urinating well. Not grossly volume overloaded. BNP mildly elevated. CXR with mild CM. Stable low 130s. - Monitor. Assessment & Plan (04/04/2021 2:35 PM CDT): No symptoms. unclear etiology, ?possible volume overload. Urine osm 388, urine Na 70, ser osm 276 c/w hypotonic hyponatremia. On RA, urinating well. Not grossly volume overloaded. BNP mildly elevated. CXR with mild CM. Stable low 130s. - Monitor. Assessment & Plan (04/03/2021 12:39 PM CDT): No symptoms. unclear etiology, ?possible volume overload. Urine osm 388, urine Na 70, ser osm 276 c/w hypotonic hyponatremia. On RA, urinating well. Not grossly volume overloaded. BNP mildly elevated. CXR with mild CM. Stable low 130s. - Monitor. Assessment & Plan (04/02/2021 2:14 PM CDT): No symptoms. unclear etiology, ?possible volume overload. Urine osm 388, urine Na 70, ser osm 276 c/w hypotonic hyponatremia. On RA, urinating well. Not grossly volume overloaded. BNP mildly elevated. CXR with mild CM. - Monitor. Hold IVFs Assessment & Plan (04/01/2021 5:41 PM CDT): No symptoms. unclear etiology, ?possible volume overload. Urine osm 388, urine Na 70, ser osm 276 c/w hypotonic hyponatremia. On RA, urinating well. Not grossly volume overloaded. BNP mildly elevated. CXR with mild CM. - Monitor. 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 Ferrous sulfate, Transfuse prn < 7 Assessment & Plan (04/09/2021 1:14 PM CDT): Likely anemia of chronic disease. - Transfuse prn < 7 Assessment & Plan (04/08/2021 11:27 AM CDT): Likely anemia of chronic disease. - Transfuse prn < 7 Assessment & Plan (04/07/2021 12:21 PM CDT): Likely anemia of chronic disease. - Transfuse prn < 7 Assessment & Plan (04/06/2021 3:09 PM CDT): Likely anemia of chronic disease. - Transfuse prn < 7 Assessment & Plan (04/05/2021 10:42 AM CDT): Likely anemia of chronic disease. - Transfuse prn < 7 Assessment & Plan (04/04/2021 2:36 PM CDT): Likely anemia of chronic disease. - Transfuse prn < 7 Assessment & Plan (04/03/2021 12:43 PM CDT): Likely anemia of chronic disease. - Transfuse prn < 7 Assessment & Plan (04/02/2021 2:15 PM CDT): Likely anemia of chronic disease. - Transfuse prn < 7 Assessment & Plan (04/01/2021 5:43 PM CDT): Likely anemia of chronic disease. - Transfuse prn < 7 Infected fluid collection without fistula 2020 Assessment & Plan (04/11/2021 11:06 AM CDT): OSH CT A/P over-read here: Large destructive process centered at L5-S1 containing gas soft tissue and fluid density, concern for OM/discitis, transverses spine, possible fistula overlying the sacrum. 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 MRI total spine 03/30 with destruction at the lumbosacral junction with disorganized bone fragments and a fluid collection in the calf between the small residual components of the L5 vertebral body in the remainder of the sacrum. No evidence of discitis/OM in cervical, thoracic, or lumbar spine from L1 through L4. Large disc protrusion at C5-C6 causing moderate canal stenosis. 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 ACCS c/s do not feel that wounds are the source of fluid collection. S/p MSK IR c/s: biopsy 03/31 with aspirate now growing kim-susceptible E coli. Blood cx NGTD. - ID following - S/p Vanc/Kaykay (started 03/28) as noted elsewhere; switched to CTX 04/07 with plan to treat for 6 weeks per ID staring 03/28/21. PICC line in place. - No options for source control at this time. Ortho spine initially felt this was not infectious, so no intervention planned. Requested them to re-evaluate in the setting of positive fluid culture on 04/02. Per note left on 04/07, this is still the case as they feel surgical management is very highly unlikely to clear his infection and could exacerbate his status. Per IR, drain is also not a good option as fluid collection would not likely drain effectively. - Leukocytosis improved from 17 on 04/09 down to 11 today, no new source of infection with work-up Assessment & Plan (04/10/2021 10:42 AM CDT): OSH CT A/P over-read here: Large destructive process centered at L5-S1 containing gas soft tissue and fluid density, concern for OM/discitis, transverses spine, possible fistula overlying the sacrum. 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 MRI total spine 03/30 with destruction at the lumbosacral junction with disorganized bone fragments and a fluid collection in the calf between the small residual components of the L5 vertebral body in the remainder of the sacrum. No evidence of discitis/OM in cervical, thoracic, or lumbar spine from L1 through L4. Large disc protrusion at C5-C6 causing moderate canal stenosis. 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 ACCS c/s do not feel that wounds are the source of fluid collection. S/p MSK IR c/s: biopsy 03/31 with aspirate now growing kim-susceptible E coli. Blood cx NGTD. - ID following - S/p Vanc/Kaykay (started 03/28) as noted elsewhere; switched to CTX 04/07 with plan to treat for 6 weeks per ID staring 03/28/21. PICC line in place. - No options for source control at this time. Ortho spine initially felt this was not infectious, so no intervention planned. Requested them to re-evaluate in the setting of positive fluid culture on 04/02. Per note left on 04/07, this is still the case as they feel surgical management is very highly unlikely to clear his infection and could exacerbate his status. Per IR, drain is also not a good option as fluid collection would not likely drain effectively. - Leukocytosis improved from 17 on 04/09 down to 12, no new source of infection with work-up, monitor Assessment & Plan (04/09/2021 1:12 PM CDT): OSH CT A/P over-read here: Large destructive process centered at L5-S1 containing gas soft tissue and fluid density, concern for OM/discitis, transverses spine, possible fistula overlying the sacrum. 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 MRI total spine 03/30 with destruction at the lumbosacral junction with disorganized bone fragments and a fluid collection in the calf between the small residual components of the L5 vertebral body in the remainder of the sacrum. No evidence of discitis/OM in cervical, thoracic, or lumbar spine from L1 through L4. Large disc protrusion at C5-C6 causing moderate canal stenosis. 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 ACCS c/s do not feel that wounds are the source of fluid collection. S/p MSK IR c/s: biopsy 03/31 with aspirate now growing kim-susceptible E coli. Blood cx NGTD. - ID following - S/p Vanc/Kaykay (started 03/28) as noted elsewhere; switched to CTX 04/07 with plan to treat for 6 weeks per ID staring 03/28/21. PICC line in place. - No options for source control at this time. Ortho spine initially felt this was not infectious, so no intervention planned. Requested them to re-evaluate in the setting of positive fluid culture on 04/02. Per note left on 04/07, this is still the case as they feel surgical management is very highly unlikely to clear his infection and could exacerbate his status. Per IR, drain is also not a good option as fluid collection would not likely drain effectively. - Increase leukocytosis - afebrile, CXR negative, send UA and blood cultures, per ID no imaging needed for now but monitor Assessment & Plan (04/08/2021 11:27 AM CDT): OSH CT A/P over-read here: Large destructive process centered at L5-S1 containing gas soft tissue and fluid density, concern for OM/discitis, transverses spine, possible fistula overlying the sacrum. 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 MRI total spine 03/30 with destruction at the lumbosacral junction with disorganized bone fragments and a fluid collection in the calf between the small residual components of the L5 vertebral body in the remainder of the sacrum. No evidence of discitis/OM in cervical, thoracic, or lumbar spine from L1 through L4. Large disc protrusion at C5-C6 causing moderate canal stenosis. 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 ACCS c/s do not feel that wounds are the source of fluid collection. S/p MSK IR c/s: biopsy 03/31 with aspirate now growing kim-susceptible E coli. Blood cx NGTD. - ID following - S/p Vanc/Kaykay (started 03/28) as noted elsewhere; switched to CTX 04/07. Await final ID recs, but expect he will need ~6 wk course. PICC line in place. - No options for source control at this time. Ortho spine initially felt this was not infectious, so no intervention planned. Requested them to re-evaluate in the setting of positive fluid culture on 04/02. Per note left on 04/05, this is still the case as they feel surgical management is very highly unlikely to clear his infection and could exacerbate his status. Per IR, drain is also not a good option as fluid collection would not likely drain effectively. Assessment & Plan (04/07/2021 12:11 PM CDT): OSH CT A/P over-read here: Large destructive process centered at L5-S1 containing gas soft tissue and fluid density, concern for OM/discitis, transverses spine, possible fistula overlying the sacrum. 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 MRI total spine 03/30 with destruction at the lumbosacral junction with disorganized bone fragments and a fluid collection in the calf between the small residual components of the L5 vertebral body in the remainder of the sacrum. No evidence of discitis/OM in cervical, thoracic, or lumbar spine from L1 through L4. Large disc protrusion at C5-C6 causing moderate canal stenosis. 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 ACCS c/s do not feel that wounds are the source of fluid collection. S/p MSK IR c/s: biopsy 03/31 with aspirate now growing kim-susceptible E coli. Blood cx NGTD. - ID following - S/p Vanc/Kaykay (started 03/28) as noted elsewhere; now switched to CTX. Await final ID recs, but expect he will need ~6 wk course. PICC line in place. - No options for source control at this time. Ortho spine initially felt this was not infectious, so no intervention planned. Requested them to re-evaluate in the setting of positive fluid culture on 04/02. Per note left on 04/05, this is still the case as they feel surgical management is very highly unlikely to clear his infection and could exacerbate his status. Per IR, drain is also not a good option as fluid collection would not likely drain effectively. Assessment & Plan (04/06/2021 3:01 PM CDT): CT a/p performed OSH with BL perinephric fat, unchanged stones in urinary bladder and urethra, large soft tissue mass with gas bubbles in lumbosacral area, oconcern for hematoma vs soft tissue tumor with superimposed infection, ?may be connected to perianal fistula that opens to skin surface and connects to sacrum. Pt reports he has had a mass in this region biopsied before that was not cancer . CT a/p over- read here: Large destructive process centered at L5-S1 containing gas soft tissue and fluid density, concern for OM/discitis, transverses spine, possible fistula overlying the sacrum. 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 MRI total spine 03/30 with destruction at the lumbosacral junction with disorganized bone fragments and a fluid collection in the calf between the small residual components of the L5 vertebral body in the remainder of the sacrum. Fluid collection likely not infection, most likely inflammatory, ?charcot joint. No evidence of discitis/OM in cervical, thoracic, or lumbar spine from L1 through L4. Large disc protrusion at C5-C6 causing moderate canal stenosis. 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 ACCS c/s do not feel that wounds are the source of fluid collection. S/p MSK IR c/s: biopsy 03/31 with aspirate now growing kim-susceptible E coli. Blood cx NGTD. - Per ID c/s: c/w meropenem + vanc (concern for opening to skin). - Ortho spine initially felt this was not infectious, so no intervention planned.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 patient with classic symptoms of hyperglycemia or hyperglycemic crisis, a random glucose >/= 200 mg/dl is diagnostic for diabetes. In the absence of unequivocal hyperglycemia, results should be confirmed by repeat testing. The classification and Diagnosis of Diabetes Diabetes Care 2021; 46: S19-S40. Current interpretive data was last revised 2022. Calcium 8.4(L) 8.5 - 10.3 mg/dL [facility] Bilirubin, total <0.2 0.1 - 1.2 mg/dL [facility] Comment:Repeated and Verifie d Protein, pl 6.9 6.5 - 8.5 g/dL [facility] Albumin 2.6(L) 3.5 - 5.0 g/dL [facility] Alk phos 93 40 - 130 Units/L [facility] ALT 9 7 - 55 Units/L [facility] AST 11 10 - 50 Units/L [facility] Blood 10/07/2024 3:16 AM FRAMER 10/07/2024 3:31 AM FRAMER us Yoseph Golden MD LAB BLOOD ORDERABLES Final Resul t [facility] One [facility] [place] [address] * eGFR (10/06/2024 6:15 AM FRAMER) eGFR >90 >=60 mL/min/1. 73 m2 Comment: Interpretive Data Reference Interval Normal ?>/= 90 mL/min/1.73m2 Mildly decreased* ? 60 - 89 mL/min/1.73m2 Mildly to moderately decreased ?45 - 59 mL/min/1.73m2 Moderately to severely decreased ??30 - 44 mL/min/1.73m2 Severely decreased ?15 - 29 mL/min/1.73m2 Kidney Failure ?< 15 ??mL/min/1.73m2 *Relative to young adult level Estimated glomerular filtration rate is determined by the 2020 CKD-EPI equation recommended by the National Kidney Foundation (A Unifying Approach to GFR Estimation: Recommendations of the NKF-ASK Task Force on Reassessing the Inclusion of Race in Diagnosing Kidney Disease, JASN 2020). The CKD-EPI equation should not be used for patients with unstable renal function and has not been validated in children and those over 70. Current interpretive data was last reviewed 2021. Blood 10/06/2024 6:15 AM FRAMER 10/06/2024 7:05 AM FRAMER us Yoseph Golden MD LAB BLOOD ORDERABLES Final Resul t [facility] One [facility] Department of Laboratories [place], [place] [id number] * (ABNORMAL) Differential, auto (10/06/2024 6:15 AM FRAMER) Neutrophil abs 6.5 1.5 - 6.5 K/cumm Imm gran abs 0.4(H) 0.0 - 0.1 K/cumm [facility] Lymphocyte abs 2.5 0.8 - 3.3 K/cumm [facility] Monocyte abs 1.2(H) 0.2 - 0.8 K/cumm [facility] Eosinophil abs 0.3 0.0 - 0.5 K/cumm [facility] Basophil abs 0.0 0.0 - 0.1 K/cumm [facility] Neutrophil pct 59.5 % [facility] Comment: Interpretive Data Percent cell count reference ranges are not reported, since discordance with absolute values may lead to misinterpretation of CBC data. Current Interpretive Data was last revised on 2018. Imm gran pct 4.0 % [facility] Comment: Interpretive Data Percent cell count reference ranges are not reported, since discordance with absolute values may lead to misinterpretation of CBC data. Current Interpretive Data was last revised on 2018. Lymphocyte pct 23.0 % [facility] Comment: Interpretive Data Percent cell count reference ranges are not reported, since discordance with absolute values may lead to misinterpretation of CBC data. Current Interpretive Data was last revised on 2018. Monocyte pct 10.6 % [facility] Comment: Interpretive Data Percent cell count reference ranges are not reported, since discordance with absolute values may lead to misinterpretation of CBC data. Current Interpretive Data was last revised on 2018. Eosinophil pct 2.5 % [facility] Comment: Interpretive Data Percent cell count reference ranges are not reported, since discordance with absolute values may lead to misinterpretation of CBC data. Current Interpretive Data was last revised on 2018. Basophil pct 0.4 % [facility] Comment: Interpretive Data Percent cell count reference ranges are not reported, since discordance with absolute values may lead to misinterpretation of CBC data. Current Interpretive Data was last revised on 2018. Blood 10/06/2024 6:15 AM FRAMER 10/06/2024 7:01 AM FRAMER us Yoseph Golden MD LAB BLOOD ORDERABLES Final Resul t [facility] One [facility] Department [place] [address] * (ABNORMAL) CBC with auto differential (10/06/2024 6:15 AM FRAMER) WBC 10.9(H) 3.8 - 9.9 K/cumm Hgb 7.4(L) 13.0 - 17.5 g/dL [facility] Hct 24.4(L) 38.9 - 50.3 % [facility] Plt 401(H) 150 - 400 K/cumm [facility] MPV 9.7 9.1 - 12.3 fL [facility] RBC 3.31(L) 4.30 - 5.80 M/cumm [facility] MCV 73.7(L) 81.3 - 96.4 fL [facility] MCH 22.4(L) 27.1 - 33.3 pg [facility] MCHC 30.3(L) 32.3 - 35.7 g/dL [facility] RDW CV 19.7(H) 11.1 - 14.9 % [facility] RDW SD 49.0(H) 35.7 - 48.1 fL [facility] NRBC abs 0.00 0.00 - 0.01 K/cumm [facility] Blood 10/06/2024 6:15 AM FRAMER 10/06/2024 7:01 AM FRAMER Yoseph Golden MD LAB BLOOD ORDERABLES Final Resul t [facility] [place] [address] * Phosphorus (10/06/2024 6:15 AM FRAMER) Phosphorus, pl 3.9 2.3 - 4.5 mg/dL Blood 10/06/2024 6:15 AM FRAMER 10/06/2024 7:05 AM FRAMER Kathia Ruiz MD LAB BLOOD ORDERABLES Jessica l Result [facility] [address] * Magnesium (10/06/2024 6:15 AM FRAMER) Magnesium 2.0 1.4 - 2.5 mg/dL Blood 10/06/2024 6:15 AM FRAMER 10/06/2024 7:05 AM FRAMER us Kathia Ruiz MD LAB BLOOD ORDERABLES Jessica nancy Result [facility] One [facility] Department [place] [address] * (ABNORMAL) Comprehensive metabolic panel (10/06/2024 6:15 AM FRAMER) [facility] Sodium 141 135 - 145 mmol/L Potassium, pl 3.7 3.3 - 4.9 mmol/L [facility] Chloride 108 97 - 110 mmol/L [facility] CO2 25 22 - 32 mmol/L [facility] Anion gap 8 2 - 15 mmol/L [facility] BUN 12 6 - 25 mg/dL [facility] Creatinine 0.58(L) 0.80 - 1.30 mg/dL [facility] Glucose 88 70 - 199 mg/dL [facility] Comment: Interpretive Data Fasting glucose >/= 126 mg/dl is diagnostic for diabetes. ?? Fasting is defined as no caloric intake for at least 8 hours. Fasting glucose between 100 mg/dl to 125 mg/dl is diagnostic of prediabetes. In a patient with classic symptoms of hyperglycemia or hyperglycemic crisis, a random glucose >/= 200 mg/dl is diagnostic for diabetes. In the absence of unequivocal hyperglycemia, results should be confirmed by repeat testing. The classification and Diagnosis of Diabetes Diabetes Care 2021; 46: S19-S40. Current interpretive data was last revised 2022. Calcium 8.2(L) 8.5 - 10.3 mg/dL [facility] Bilirubin, total 0.2 0.1 - 1.2 mg/dL [facility] Comment:Reviewed Protein, pl 6.7 6.5 - 8.5 g/dL [facility] Albumin 3.0(L) 3.5 - 5.0 g/dL [facility] Alk phos 88 40 - 130 Units/L [facility] ALT 10 7 - 55 Units/L [facility] AST 5(L) 10 - 50 Units/L [facility] Blood 10/06/2024 6:15 AM FRAMER 10/06/2024 7:05 AM FRAMER Yoseph Golden MD LAB BLOOD ORDERABLES Final Resul t Performing Organization Address City/[facility] Co de Phone Number [facility] [place] [address] * C. difficile testing Stool (10/05/2024 9:43 PM FRAMER) [facility] Result Negative Negative Toxin Result Negative Negative [facility] C. diff result Negative, free toxin Negative, free toxin [facility] C. diff interp Negative for toxigenic Clostridioides (Clostridium) difficile. Analysis was performed using a glutamate dehydrogenase antigen detection assay combined with a C. difficile toxin detection assay. [facility] Stool 10/05/2024 9:43 PM FRAMER 10/05/2024 11:54 PM FRAMER Yoseph Golden MD LAB MICROBIOLOGY - GENERAL ORDER WHITNEY Final Result Performing Organization Address [facility] [place] [address] * Infection Prevention VRE Culture Stool (10/05/2024 9:43 PM FRAMER) Report Final Report: Negative Stool 10/05/2024 9:43 PM FRAMER 10/06/2024 4:23 AM FRAMER Narrative [facility] - 10/08/2024 7:57 AM FRAMER Surveillance culture for Infection Prevention purposes only; results indicate colonization, not infection requiring treatment. Testing performed by [facility] ([phone]). us Yoseph Golden MD LAB MICROBIOLOGY - GENERAL ORDER WHITNEY Final Result Performing Organization Address City/[facility] Co de Phone Number [facility] [place] [address] * eGFR (10/05/2024 8:13 AM FRAMER) eGFR >90 >=60 mL/min/1. 73 m2 Comment: Interpretive Data Reference Interval Normal ?>/= 90 mL/min/1.73m2 Mildly decreased* ? 60 - 89 mL/min/1.73m2 Mildly to moderately decreased ?45 - 59 mL/min/1.73m2 Moderately to severely decreased ??30 - 44 mL/min/1.73m2 Severely decreased ?15 - 29 mL/min/1.73m2 Kidney Failure ?< 15 ??mL/min/1.73m2 *Relative to young adult level Estimated glomerular filtration rate is determined by the 2020 CKD-EPI equation recommended by the National Kidney Foundation (A Unifying Approach to GFR Estimation: Recommendations of the NKF-ASK Task Force on Reassessing the Inclusion of Race in Diagnosing Kidney Disease, JASN 2020). The CKD-EPI equation should not be used for patients with unstable renal function and has not been validated in children and those over 70. Current interpretive data was last reviewed 2021. Blood 10/05/2024 8:13 AM FRAMER 10/05/2024 8:53 AM FRAMER us Yoseph Golden MD LAB BLOOD ORDERABLES Final Resul t [facility] One [facility] [place] [address] * (ABNORMAL) Differential, auto (10/05/2024 8:13 AM FRAMER) Neutrophil abs 6.4 1.5 - 6.5 K/cumm Imm gran abs 0.5(H) 0.0 - 0.1 K/cumm [facility] Lymphocyte abs 2.1 0.8 - 3.3 K/cumm [facility] Monocyte abs 1.1(H) 0.2 - 0.8 K/cumm [facility] Eosinophil abs 0.3 0.0 - 0.5 K/cumm [facility] Basophil abs 0.0 0.0 - 0.1 K/cumm [facility] Neutrophil pct 62.0 % [facility] Comment: Interpretive Data Percent cell count reference ranges are not reported, since discordance with absolute values may lead to misinterpretation of CBC data. Current Interpretive Data was last revised on 2018. Imm gran pct 4.3 % [facility] Comment: Interpretive Data Percent cell count reference ranges are not reported, since discordance with absolute values may lead to misinterpretation of CBC data. Current Interpretive Data was last revised on 2018. Lymphocyte pct 20.2 % [facility] Comment: Interpretive Data Percent cell count reference ranges are not reported, since discordance with absolute values may lead to misinterpretation of CBC data. Current Interpretive Data was last revised on 2018. Monocyte pct 10.7 % [facility] Comment: Interpretive Data Percent cell count reference ranges are not reported, since discordance with absolute values may lead to misinterpretation of CBC data. Current Interpretive Data was last revised on 2018. Eosinophil pct 2.5 % [facility] Comment: Interpretive Data Percent cell count reference ranges are not reported, since discordance with absolute values may lead to misinterpretation of CBC data. Current Interpretive Data was last revised on 2018. Basophil pct 0.3 % [facility] Comment: Interpretive Data Percent cell count reference ranges are not reported, since discordance with absolute values may lead to misinterpretation of CBC data. Current Interpretive Data was last revised on 2018. Blood 10/05/2024 8:13 AM FRAMER 10/05/2024 8:52 AM FRAMER us Yoseph Golden MD LAB BLOOD ORDERABLES Final Resul t [facility] One [facility] Department [place] [address] * (ABNORMAL) CBC with auto differential (10/05/2024 8:13 AM FRAMER) WBC 10.4(H) 3.8 - 9.9 K/cumm Hgb 7.8(L) 13.0 - 17.5 g/dL [facility] Hct 25.9(L) 38.9 - 50.3 % [facility] Plt 423(H) 150 - 400 K/cumm [facility] MPV 9.8 9.1 - 12.3 fL [facility] RBC 3.45(L) 4.30 - 5.80 M/cumm [facility] MCV 75.1(L) 81.3 - 96.4 fL [facility] MCH 22.6(L) 27.1 - 33.3 pg [facility] MCHC 30.1(L) 32.3 - 35.7 g/dL [facility] RDW CV 19.2(H) 11.1 - 14.9 % [facility] RDW SD 48.6(H) 35.7 - 48.1 fL [facility] NRBC abs 0.00 0.00 - 0.01 K/cumm [facility] Blood 10/05/2024 8:13 AM FRAMER 10/05/2024 8:52 AM FRAMER us Yoseph Golden MD LAB BLOOD ORDERABLES Final Resul t Performing Organization Address City/[facility] de Phone Number [facility] [place] [address] * Phosphorus (10/05/2024 8:13 AM FRAMER) Pathologist [facility] Phosphorus, pl 3.8 2.3 - 4.5 mg/dL Blood 10/05/2024 8:13 AM FRAMER 10/05/2024 8:39 AM FRAMER us Yoseph Golden MD LAB BLOOD ORDERABLES Final Resul t Performing Organization Address City/[facility] Co de Phone Number [facility] Department [place] [address] * Magnesium (10/05/2024 8:13 AM FRAMER) Magnesium 2.1 1.4 - 2.5 mg/dL Blood 10/05/2024 8:13 AM FRAMER 10/05/2024 8:39 AM FRAMER Yoseph Golden MD LAB BLOOD ORDERABLES Final Resul t [facility] One [facility] Department [place] [address] * (ABNORMAL) Comprehensive metabolic panel (10/05/2024 8:13 AM FRAMER) Pathologist [facility] Sodium 139 135 - 145 mmol/L Potassium, pl 4.1 3.3 - 4.9 mmol/L [facility] Chloride 109 97 - 110 mmol/L [facility] CO2 25 22 - 32 mmol/L [facility] Anion gap 5 2 - 15 mmol/L [facility] BUN 14 6 - 25 mg/dL [facility] Creatinine 0.54(L) 0.80 - 1.30 mg/dL [facility] Glucose 91 70 - 199 mg/dL [facility] Comment: Interpretive Data Fasting glucose >/= 126 mg/dl is diagnostic for diabetes. ?? Fasting is defined as no caloric intake for at least 8 hours. Fasting glucose between 100 mg/dl to 125 mg/dl is diagnostic of prediabetes. In a patient with classic symptoms of hyperglycemia or hyperglycemic crisis, a random glucose >/= 200 mg/dl is diagnostic for diabetes. In the absence of unequivocal hyperglycemia, results should be confirmed by repeat testing. The classification and Diagnosis of Diabetes Diabetes Care 202; 46: S19-S40. Current interpretive data was last revised 2022. Calcium 8.4(L) 8.5 - 10.3 mg/dL [facility] Bilirubin, total <0.2 0.1 - 1.2 mg/dL [facility] Protein, pl 7.0 6.5 - 8.5 g/dL [facility] Albumin 2.6(L) 3.5 - 5.0 g/dL [facility] Alk phos 98 40 - 130 Units/L [facility] ALT 9 7 - 55 Units/L [facility] AST 10 10 - 50 Units/L [facility] Blood 10/05/2024 8:13 AM FRAMER 10/05/2024 8:39 AM FRAMER us Yoseph Golden MD LAB BLOOD ORDERABLES Final Resul t [facility] One [facility] Department [place] [address] * eGFR (10/04/2024 6:24 AM FRAMER) eGFR >90 >=60 mL/min/1. 73 m2 Comment: Interpretive Data Reference Interval Normal ?>/= 90 mL/min/1.73m2 Mildly decreased* ? 60 - 89 mL/min/1.73m2 Mildly to moderately decreased ?45 - 59 mL/min/1.73m2 Moderately to severely decreased ??30 - 44 mL/min/1.73m2 Severely decreased ?15 - 29 mL/min/1.73m2 Kidney Failure ?< 15 ??mL/min/1.73m2 *Relative to young adult level Estimated glomerular filtration rate is determined by the 2020 CKD-EPI equation recommended by the National Kidney Foundation (A Unifying Approach to GFR Estimation: Recommendations of the NKF-ASK Task Force on Reassessing the Inclusion of Race in Diagnosing Kidney Disease, JASN 202). The CKD-EPI equation should not be used for patients with unstable renal function and has not been validated in children and those over 70. Current interpretive data was last reviewed 2021. Blood 10/04/2024 6:24 AM FRAMER 10/04/2024 6:49 AM FRAMER Yoseph Golden MD LAB BLOOD ORDERABLES Final Resul t [facility] One [facility] Department [place] [address] * (ABNORMAL) Differential, auto (10/04/2024 6:24 AM FRAMER) Neutrophil abs 7.0(H) 1.5 - 6.5 K/cumm Imm gran abs 0.5(H) 0.0 - 0.1 K/cumm [facility] Lymphocyte abs 2.2 0.8 - 3.3 K/cumm [facility] Monocyte abs 1.1(H) 0.2 - 0.8 K/cumm [facility] Eosinophil abs 0.4 0.0 - 0.5 K/cumm [facility] Basophil abs 0.0 0.0 - 0.1 K/cumm [facility] Neutrophil pct [facility].8 % [facility] Comment: Interpretive Data Percent cell count reference ranges are not reported, since discordance with absolute values may lead to misinterpretation of CBC data. Current Interpretive Data was last revised on 2018. Imm gran pct 4.0 % [facility] Comment: Interpretive Data Percent cell count reference ranges are not reported, since discordance with absolute values may lead to misinterpretation of CBC data. Current Interpretive Data was last revised on 2018. Lymphocyte pct 19.4 % [facility] Comment: Interpretive Data Percent cell count reference ranges are not reported, since discordance with absolute values may lead to misinterpretation of CBC data. Current Interpretive Data was last revised on 2018. Monocyte pct 9.9 % [facility] Comment: Interpretive Data Percent cell count reference ranges are not reported, since discordance with absolute values may lead to misinterpretation of CBC data. Current Interpretive Data was last revised on 2018. Eosinophil pct 3.5 % [facility] Comment: Interpretive Data Percent cell count reference ranges are not reported, since discordance with absolute values may lead to misinterpretation of CBC data. Current Interpretive Data was last revised on 2018. Basophil pct 0.4 % [facility] Comment: Interpretive Data Percent cell count reference ranges are not reported, since discordance with absolute values may lead to misinterpretation of CBC data. Current Interpretive Data was last revised on 2018. Blood 10/04/2024 6:24 AM FRAMER 10/04/2024 6:46 AM FRAMER us Yoseph Golden MD LAB BLOOD ORDERABLES Final Resul t Performing Organization Address [facility] de Phone Number [facility] [place] [address] * (ABNORMAL) CBC with auto differential (10/04/2024 6:24 AM FRAMER) WBC 11.1(H) 3.8 - 9.9 K/cumm Hgb 7.9(L) 13.0 - 17.5 g/dL [facility] Hct 26.2(L) 38.9 - 50.3 % [facility] Plt 435(H) 150 - 400 K/cumm [facility] MPV 10.3 9.1 - 12.3 fL [facility] RBC 3.56(L) 4.30 - 5.80 M/cumm [facility] MCV 73.6(L) 81.3 - 96.4 fL [facility] MCH 22.2(L) 27.1 - 33.3 pg [facility] MCHC 30.2(L) 32.3 - 35.7 g/dL [facility] RDW CV 18.8(H) 11.1 - 14.9 % [facility] RDW SD 47.9 35.7 - 48.1 fL [facility] NRBC abs 0.00 0.00 - 0.01 K/cumm [facility] Blood 10/04/2024 6:24 AM FRAMER 10/04/2024 6:46 AM FRAMER us Yoseph Golden MD LAB BLOOD ORDERABLES Final Resul t Performing Organization Address [facility] Co de Phone Number [facility] [place] [address] * Phosphorus (10/04/2024 6:24 AM FRAMER) [facility] Phosphorus, pl 3.4 2.3 - 4.5 mg/dL Blood 10/04/2024 6:24 AM FRAMER 10/04/2024 6:49 AM FRAMER Kathia Ruiz MD LAB BLOOD ORDERABLES Jessica l Result Performing Organization Address [facility] Co de Phone Number [facility] Department [place] [address] * Magnesium (10/04/2024 6:24 AM FRAMER) [facility] Magnesium 2.1 1.4 - 2.5 mg/dL Blood 10/04/2024 6:24 AM FRAMER 10/04/2024 6:49 AM FRAMER Kathia Ruiz MD LAB BLOOD ORDERABLES Jessica l Result Performing Organization Address [facility] de Phone Number [facility] Department [place] [address] * (ABNORMAL) Comprehensive metabolic panel (10/04/2024 6:24 AM FRAMER) [facility] Sodium 137 135 - 145 mmol/L Potassium, pl 3.9 3.3 - 4.9 mmol/L [facility] Chloride 109 97 - 110 mmol/L [facility] CO2 24 22 - 32 mmol/L [facility] Anion gap 4 2 - 15 mmol/L [facility] BUN 14 6 - 25 mg/dL [facility] Creatinine 0.56(L) 0.80 - 1.30 mg/dL [facility] Glucose 88 70 - 199 mg/dL [facility] Comment: Interpretive Data Fasting glucose >/= 126 mg/dl is diagnostic for diabetes. ?? Fasting is defined as no caloric intake for at least 8 hours. Fasting glucose between 100 mg/dl to 125 mg/dl is diagnostic of prediabetes. In a patient with classic symptoms of hyperglycemia or hyperglycemic crisis, a random glucose >/= 200 mg/dl is diagnostic for diabetes. In the absence of unequivocal hyperglycemia, results should be confirmed by repeat testing. The classification and Diagnosis of Diabetes Diabetes Care 202; 46: S19-S40. Current interpretive data was last revised 2022. Calcium 8.2(L) 8.5 - 10.3 mg/dL [facility] Bilirubin, total <0.2 0.1 - 1.2 mg/dL [facility] Protein, pl 6.8 6.5 - 8.5 g/dL [facility] Albumin 2.6(L) 3.5 - 5.0 g/dL [facility] Alk phos 95 40 - 130 Units/L [facility] ALT 11 7 - 55 Units/L [facility] AST 11 10 - 50 Units/L [facility] Blood 10/04/2024 6:24 AM FRAMER 10/04/2024 6:49 AM FRAMER Yoseph Golden MD LAB BLOOD ORDERABLES Final Resul t [facility] One [facility] Department [place] [address] * eGFR (10/03/2024 5:42 AM FRAMER) eGFR >90 >=60 mL/min/1. 73 m2 Comment: Interpretive Data Reference Interval Normal ?>/= 90 mL/min/1.73m2 Mildly decreased* ? 60 - 89 mL/min/1.73m2 Mildly to moderately decreased ?45 - 59 mL/min/1.73m2 Moderately to severely decreased ??30 - 44 mL/min/1.73m2 Severely decreased ?15 - 29 mL/min/1.73m2 Kidney Failure ?< 15 ??mL/min/1.73m2 *Relative to young adult level Estimated glomerular filtration rate is determined by the 2020 CKD-EPI equation recommended by the National Kidney Foundation (A Unifying Approach to GFR Estimation: Recommendations of the NKF-ASK Task Force on Reassessing the Inclusion of Race in Diagnosing Kidney Disease, JASN 2020). The CKD-EPI equation should not be used for patients with unstable renal function and has not been validated in children and those over 70. Current interpretive data was last reviewed 2021. Blood 10/03/2024 5:42 AM FRAMER 10/03/2024 6:39 AM FRAMER us Yoseph Golden MD LAB BLOOD ORDERABLES Final Resul t [facility] One [facility] Department [place] [address] * (ABNORMAL) Differential, auto (10/03/2024 5:42 AM FRAMER) Neutrophil abs 7.7(H) 1.5 - 6.5 K/cumm Imm gran abs 0.6(H) 0.0 - 0.1 K/cumm [facility] Lymphocyte abs 2.3 0.8 - 3.3 K/cumm [facility] Monocyte abs 1.1(H) 0.2 - 0.8 K/cumm [facility] Eosinophil abs 0.4 0.0 - 0.5 K/cumm [facility] Basophil abs 0.0 0.0 - 0.1 K/cumm [facility] Neutrophil pct 63.6 % [facility] Comment: Interpretive Data Percent cell count reference ranges are not reported, since discordance with absolute values may lead to misinterpretation of CBC data. Current Interpretive Data was last revised on 2018. Imm gran pct 5.2 % [facility] Comment: Interpretive Data Percent cell count reference ranges are not reported, since discordance with absolute values may lead to misinterpretation of CBC data. Current Interpretive Data was last revised on 2018. Lymphocyte pct 19.2 % [facility] Comment: Interpretive Data Percent cell count reference ranges are not reported, since discordance with absolute values may lead to misinterpretation of CBC data. Current Interpretive Data was last revised on 2018. Monocyte pct 8.8 % [facility] Comment: Interpretive Data Percent cell count reference ranges are not reported, since discordance with absolute values may lead to misinterpretation of CBC data. Current Interpretive Data was last revised on 2018. Eosinophil pct 3.0 % [facility] Comment: Interpretive Data Percent cell count reference ranges are not reported, since discordance with absolute values may lead to misinterpretation of CBC data. Current Interpretive Data was last revised on 2018. Basophil pct 0.2 % [facility] Comment: Interpretive Data Percent cell count reference ranges are not reported, since discordance with absolute values may lead to misinterpretation of CBC data. Current Interpretive Data was last revised on 2018. Blood 10/03/2024 5:42 AM FRAMER 10/03/2024 6:18 AM FRAMER us Yoseph Golden MD LAB BLOOD ORDERABLES Final Resul t [facility] One [facility] Department [place] [address] * (ABNORMAL) CBC with auto differential (10/03/2024 5:42 AM FRAMER) WBC 12.1(H) 3.8 - 9.9 K/cumm Hgb 7.8(L) 13.0 - 17.5 g/dL [facility] Hct 25.7(L) 38.9 - 50.3 % [facility] Plt 439(H) 150 - 400 K/cumm [facility] MPV 10.5 9.1 - 12.3 fL [facility] RBC 3.45(L) 4.30 - 5.80 M/cumm [facility] MCV 74.5(L) 81.3 - 96.4 fL [facility] MCH 22.6(L) 27.1 - 33.3 pg [facility] MCHC 30.4(L) 32.3 - 35.7 g/dL [facility] RDW CV 18.4(H) 11.1 - 14.9 % [facility] RDW SD 47.9 35.7 - 48.1 fL [facility] NRBC abs 0.00 0.00 - 0.01 K/cumm [facility] Blood 10/03/2024 5:42 AM FRAMER 10/03/2024 6:18 AM FRAMER Yoseph Golden MD LAB BLOOD ORDERABLES Final Resul t Performing Organization Address City/[facility] de Phone Number [facility] [place] [address] * (ABNORMAL) Prealbumin (10/03/2024 5:42 AM FRAMER) Prealbumin 14.0(L) 20.0 - 40.0 mg/dL Blood 10/03/2024 5:42 AM FRAMER 10/03/2024 6:18 AM FRAMER Yoseph Golden MD LAB BLOOD ORDERABLES Final Resul t Performing Organization Address [facility] [place] [address] * Phosphorus (10/03/2024 5:42 AM FRAMER) Phosphorus, pl 3.2 2.3 - 4.5 mg/dL Blood 10/03/2024 5:42 AM FRAMER 10/03/2024 6:29 AM FRAMER Kathia Ruiz MD LAB BLOOD ORDERABLES Jessica l Result Performing Organization Address [facility] [place] [address] * Magnesium (10/03/2024 5:42 AM FRAMER) Magnesium 2.1 1.4 - 2.5 mg/dL Blood 10/03/2024 5:42 AM FRAMER 10/03/2024 6:29 AM FRAMER us Kathia Ruiz MD LAB BLOOD ORDERABLES Jessica nancy Result [facility] One [facility] Department [place] [address] * (ABNORMAL) Comprehensive metabolic panel (10/03/2024 5:42 AM FRAMER) Pathologist [facility] Sodium 138 135 - 145 mmol/L Potassium, pl 4.0 3.3 - 4.9 mmol/L [facility] Chloride 109 97 - 110 mmol/L [facility] CO2 23 22 - 32 mmol/L [facility] Anion gap 6 2 - 15 mmol/L [facility] BUN 13 6 - 25 mg/dL [facility] Creatinine 0.58(L) 0.80 - 1.30 mg/dL [facility] Glucose 87 70 - 199 mg/dL [facility] Comment: Interpretive Data Fasting glucose >/= 126 mg/dl is diagnostic for diabetes. ?? Fasting is defined as no caloric intake for at least 8 hours. Fasting glucose between 100 mg/dl to 125 mg/dl is diagnostic of prediabetes. In a patient with classic symptoms of hyperglycemia or hyperglycemic crisis, a random glucose >/= 200 mg/dl is diagnostic for diabetes. In the absence of unequivocal hyperglycemia, results should be confirmed by repeat testing. The classification and Diagnosis of Diabetes Diabetes Care 202; 46: S19-S40. Current interpretive data was last revised 2022. Calcium 8.2(L) 8.5 - 10.3 mg/dL [facility] Bilirubin, total <0.2 0.1 - 1.2 mg/dL [facility] Protein, pl 6.8 6.5 - 8.5 g/dL [facility] Albumin 2.6(L) 3.5 - 5.0 g/dL [facility] Alk phos 97 40 - 130 Units/L [facility] ALT 19 7 - 55 Units/L [facility] AST 18 10 - 50 Units/L [facility] Blood 10/03/2024 5:42 AM FRAMER 10/03/2024 6:29 AM FRAMER us Yoseph Golden MD LAB BLOOD ORDERABLES Final Resul t Performing Organization Address [facility] Co de Phone Number [facility] [place] [address] * eGFR (10/02/2024 2:24 AM FRAMER) eGFR >90 >=60 mL/min/1. 73 m2 Comment: Interpretive Data Reference Interval Normal ?>/= 90 mL/min/1.73m2 Mildly decreased* ? 60 - 89 mL/min/1.73m2 Mildly to moderately decreased ?45 - 59 mL/min/1.73m2 Moderately to severely decreased ??30 - 44 mL/min/1.73m2 Severely decreased ?15 - 29 mL/min/1.73m2 Kidney Failure ?< 15 ??mL/min/1.73m2 *Relative to young adult level Estimated glomerular filtration rate is determined by the 2020 CKD-EPI equation recommended by the National Kidney Foundation (A Unifying Approach to GFR Estimation: Recommendations of the NKF-ASK Task Force on Reassessing the Inclusion of Race in Diagnosing Kidney Disease, JASN 2020). The CKD-EPI equation should not be used for patients with unstable renal function and has not been validated in children and those over 70. Current interpretive data was last reviewed 2021. Blood 10/02/2024 2:24 AM FRAMER 10/02/2024 3:49 AM FRAMER us Kathia Ruiz MD LAB BLOOD ORDERABLES Jessica l Result Performing Organization Address City/[facility]/ZIP Co de Phone Number [facility] [place] [address] * (ABNORMAL) Differential, auto (10/02/2024 2:24 AM FRAMER) Neutrophil abs 6.4 1.5 - 6.5 K/cumm Imm gran abs 0.5(H) 0.0 - 0.1 K/cumm [facility] Lymphocyte abs 2.3 0.8 - 3.3 K/cumm [facility] Monocyte abs 0.6 0.2 - 0.8 K/cumm [facility] Eosinophil abs 0.2 0.0 - 0.5 K/cumm [facility] Basophil abs 0.0 0.0 - 0.1 K/cumm [facility] Neutrophil pct 63.5 % [facility] Comment: Interpretive Data Percent cell count reference ranges are not reported, since discordance with absolute values may lead to misinterpretation of CBC data. Current Interpretive Data was last revised on 2018. Imm gran pct 4.7 % [facility] Comment: Interpretive Data Percent cell count reference ranges are not reported, since discordance with absolute values may lead to misinterpretation of CBC data. Current Interpretive Data was last revised on 2018. Lymphocyte pct 22.9 % [facility] Comment: Interpretive Data Percent cell count reference ranges are not reported, since discordance with absolute values may lead to misinterpretation of CBC data. Current Interpretive Data was last revised on 2018. Monocyte pct 6.2 % [facility] Comment: Interpretive Data Percent cell count reference ranges are not reported, since discordance with absolute values may lead to misinterpretation of CBC data. Current Interpretive Data was last revised on 2018. Eosinophil pct 2.4 % [facility] Comment: Interpretive Data Percent cell count reference ranges are not reported, since discordance with absolute values may lead to misinterpretation of CBC data. Current Interpretive Data was last revised on 2018. Basophil pct 0.3 % [facility] Comment: Interpretive Data Percent cell count reference ranges are not reported, since discordance with absolute values may lead to misinterpretation of CBC data. Current Interpretive Data was last revised on 2018. Blood 10/02/2024 2:24 AM FRAMER 10/02/2024 3:49 AM FRAMER Kathia Ruiz MD LAB BLOOD ORDERABLES Jessica cruz Result Performing Organization Address [facility] Co de Phone Number [facility] Department [place] [address] * (ABNORMAL) CBC with auto differential (10/02/2024 2:24 AM FRAMER) Pathologist [facility] WBC 10.1(H) 3.8 - 9.9 K/cumm Hgb 7.7(L) 13.0 - 17.5 g/dL [facility] Hct 26.3(L) 38.9 - 50.3 % [facility] Plt 419(H) 150 - 400 K/cumm [facility] MPV 10.6 9.1 - 12.3 fL [facility] RBC 3.58(L) 4.30 - 5.80 M/cumm [facility] MCV 73.5(L) 81.3 - 96.4 fL [facility] MCH 21.5(L) 27.1 - 33.3 pg [facility] MCHC 29.3(L) 32.3 - 35.7 g/dL [facility] RDW CV 18.0(H) 11.1 - 14.9 % [facility] RDW SD 47.5 35.7 - 48.1 fL [facility] NRBC abs 0.00 0.00 - 0.01 K/cumm [facility] Blood 10/02/2024 2:24 AM FRAMER 10/02/2024 3:49 AM FRAMER Kathia Ruiz MD LAB BLOOD ORDERABLES Jessica cruz Result Performing Organization Address [facility]/ZIP Co de Phone Number [facility] Department [place] [address] * Magnesium (10/02/2024 2:24 AM FRAMER) Pathologist [facility] Magnesium 1.9 1.4 - 2.5 mg/dL Blood 10/02/2024 2:24 AM FRAMER 10/02/2024 3:49 AM FRAMER Kathia Ruiz MD LAB BLOOD ORDERABLES Jessica l Result [facility] Department [place] [address] * (ABNORMAL) Basic metabolic panel (10/02/2024 2:24 AM FRAMER) [facility] Sodium 134(L) 135 - 145 mmol/L Potassium, pl 3.8 3.3 - 4.9 mmol/L [facility] Chloride 107 97 - 110 mmol/L [facility] CO2 23 22 - 32 mmol/L [facility] Anion gap 4 2 - 15 mmol/L [facility] BUN 9 6 - 25 mg/dL [facility] Creatinine 0.65(L) 0.80 - 1.30 mg/dL [facility] Glucose 121 70 - 199 mg/dL [facility] Comment: Interpretive Data Fasting glucose >/= 126 mg/dl is diagnostic for diabetes. ?? Fasting is defined as no caloric intake for at least 8 hours. Fasting glucose between 100 mg/dl to 125 mg/dl is diagnostic of prediabetes. In a patient with classic symptoms of hyperglycemia or hyperglycemic crisis, a random glucose >/= 200 mg/dl is diagnostic for diabetes. In the absence of unequivocal hyperglycemia, results should be confirmed by repeat testing. The classification and Diagnosis of Diabetes Diabetes Care 2021; 46: S19-S40. Current interpretive data was last revised 2022. Calcium 7.8(L) 8.5 - 10.3 mg/dL [facility] Blood 10/02/2024 2:24 AM FRAMER 10/02/2024 3:49 AM FRAMER Kathia Ruiz MD LAB BLOOD ORDERABLES Jessica l Result Performing Organization Address City/[facility]/ZIP Co de Phone Number [facility] Department [place] [address] * eGFR (10/01/2024 2:22 AM FRAMER) eGFR >90 >=60 mL/min/1. 73 m2 Comment: Interpretive Data Reference Interval Normal ?>/= 90 mL/min/1.73m2 Mildly decreased* ? 60 - 89 mL/min/1.73m2 Mildly to moderately decreased ?45 - 59 mL/min/1.73m2 Moderately to severely decreased ??30 - 44 mL/min/1.73m2 Severely decreased ?15 - 29 mL/min/1.73m2 Kidney Failure ?< 15 ??mL/min/1.73m2 *Relative to young adult level Estimated glomerular filtration rate is determined by the 2020 CKD-EPI equation recommended by the National Kidney Foundation (A Unifying Approach to GFR Estimation: Recommendations of the NKF-ASK Task Force on Reassessing the Inclusion of Race in Diagnosing Kidney Disease, JASN 2020). The CKD-EPI equation should not be used for patients with unstable renal function and has not been validated in children and those over 70. Current interpretive data was last reviewed 2021. Blood 10/01/2024 2:22 AM FRAMER 10/01/2024 2:49 AM FRAMER us Kathia Ruiz MD LAB BLOOD ORDERABLES Jessica l Result [facility] One [facility] Department [place] [address] * (ABNORMAL) Differential, auto (10/01/2024 2:22 AM FRAMER) Neutrophil abs 7.5(H) 1.5 - 6.5 K/cumm Imm gran abs 0.5(H) 0.0 - 0.1 K/cumm [facility] Lymphocyte abs 2.1 0.8 - 3.3 K/cumm [facility] Monocyte abs 0.8 0.2 - 0.8 K/cumm [facility] Eosinophil abs 0.2 0.0 - 0.5 K/cumm [facility] Basophil abs 0.0 0.0 - 0.1 K/cumm [facility] Neutrophil pct 67.6 % [facility] Comment: Interpretive Data Percent cell count reference ranges are not reported, since discordance with absolute values may lead to misinterpretation of CBC data. Current Interpretive Data was last revised on 2018. Imm gran pct 4.1 % [facility] Comment: Interpretive Data Percent cell count reference ranges are not reported, since discordance with absolute values may lead to misinterpretation of CBC data. Current Interpretive Data was last revised on 2018. Lymphocyte pct 19.2 % [facility] Comment: Interpretive Data Percent cell count reference ranges are not reported, since discordance with absolute values may lead to misinterpretation of CBC data. Current Interpretive Data was last revised on 2018. Monocyte pct 7.0 % [facility] Comment: Interpretive Data Percent cell count reference ranges are not reported, since discordance with absolute values may lead to misinterpretation of CBC data. Current Interpretive Data was last revised on 2018. Eosinophil pct 1.8 % [facility] Comment: Interpretive Data Percent cell count reference ranges are not reported, since discordance with absolute values may lead to misinterpretation of CBC data. Current Interpretive Data was last revised on 2018. Basophil pct 0.3 % [facility] Comment: Interpretive Data Percent cell count reference ranges are not reported, since discordance with absolute values may lead to misinterpretation of CBC data. Current Interpretive Data was last revised on 2018. Blood 10/01/2024 2:22 AM FRAMER 10/01/2024 2:49 AM FRAMER us Kathia Ruiz MD LAB BLOOD ORDERABLES Jessica cruz Result [facility] One [facility] Department [place] [address] * (ABNORMAL) CBC with auto differential (10/01/2024 2:22 AM FRAMER) Pathologist [facility] WBC 11.1(H) 3.8 - 9.9 K/cumm Hgb 8.0(L) 13.0 - 17.5 g/dL [facility] Hct 26.7(L) 38.9 - 50.3 % [facility] Plt 434(H) 150 - 400 K/cumm [facility] MPV 10.7 9.1 - 12.3 fL [facility] RBC 3.65(L) 4.30 - 5.80 M/cumm [facility] MCV 73.2(L) 81.3 - 96.4 fL [facility] MCH 21.9(L) 27.1 - 33.3 pg [facility] MCHC 30.0(L) 32.3 - 35.7 g/dL [facility] RDW CV 17.4(H) 11.1 - 14.9 % [facility] RDW SD 46.3 35.7 - 48.1 fL [facility] NRBC abs 0.00 0.00 - 0.01 K/cumm [facility] Blood 10/01/2024 2:22 AM FRAMER 10/01/2024 2:49 AM FRAMER Kathia Ruiz MD LAB BLOOD ORDERABLES Jessica cruz Result [facility] One [facility] [place] [address] * (ABNORMAL) aPTT (10/01/2024 2:22 AM FRAMER) Pathologist [facility] aPTT 39(H) 28 - 38 sec Comment: Interpretive Data Heparin therapeutic range: 66.0 - 100.0 seconds. Range based on correlation with therapeutic heparin activity range of 0.3 - 0.7 Units/mL. Current interpretive data was last revised on 2023. Blood 10/01/2024 2:22 AM FRAMER 10/01/2024 2:54 AM FRAMER Kathia Ruiz MD LAB BLOOD ORDERABLES Jessica l Result Performing Organization Address [facility] Co de Phone Number [facility] One [facility] [place] [address] * (ABNORMAL) Protime-INR (10/01/2024 2:22 AM FRAMER) [facility] PT 15.9(H) 9.7 - 13.0 sec INR 1.46(H) 0.90 - 1.20 [facility] Comment: Interpretive data Oral anticoagulant therapeutic ranges: Venous thromboembolism prophylaxis or treatment: 2.0-3.0 CARDIOLOGY Standard range: 2.0-3.0 High-intensity range: 2.5-3.5 Refer to indication-specific guidelines for appropriate target ranges for prosthetic heart valve replacement. Current interpretive data was last revised on 2019. Blood 10/01/2024 2:22 AM FRAMER 10/01/2024 2:54 AM FRAMER Kathia Ruiz MD LAB BLOOD ORDERABLES Jessica l Result Performing Organization Address [facility] Co de Phone Number [facility] One [facility] Department [place] [address] * (ABNORMAL) Basic metabolic panel (10/01/2024 2:22 AM FRAMER) [facility] Sodium 136 135 - 145 mmol/L Potassium, pl 3.4 3.3 - 4.9 mmol/L [facility] Chloride 105 97 - 110 mmol/L [facility] CO2 23 22 - 32 mmol/L [facility] Anion gap 8 2 - 15 mmol/L [facility] BUN 8 6 - 25 mg/dL [facility] Creatinine 0.70(L) 0.80 - 1.30 mg/dL [facility] Glucose 105 70 - 199 mg/dL [facility] Comment: Interpretive Data Fasting glucose >/= 126 mg/dl is diagnostic for diabetes. ?? Fasting is defined as no caloric intake for at least 8 hours. Fasting glucose between 100 mg/dl to 125 mg/dl is diagnostic of prediabetes. In a patient with classic symptoms of hyperglycemia or hyperglycemic crisis, a random glucose >/= 200 mg/dl is diagnostic for diabetes. In the absence of unequivocal hyperglycemia, results should be confirmed by repeat testing. The classification and Diagnosis of Diabetes Diabetes Care 202; 46: S19-S40. Current interpretive data was last revised 2022. Calcium 8.0(L) 8.5 - 10.3 mg/dL [facility] Blood 10/01/2024 2:22 AM FRAMER 10/01/2024 2:49 AM FRAMER us Kathia Ruiz MD LAB BLOOD ORDERABLES Jessica cruz Result [facility] One [facility] Department [place] [address] * eGFR (09/29/2024 4:17 PM FRAMER) eGFR >90 >=60 mL/min/1. 73 m2 Comment: Interpretive Data Reference Interval Normal ?>/= 90 mL/min/1.73m2 Mildly decreased* ? 60 - 89 mL/min/1.73m2 Mildly to moderately decreased ?45 - 59 mL/min/1.73m2 Moderately to severely decreased ??30 - 44 mL/min/1.73m2 Severely decreased ?15 - 29 mL/min/1.73m2 Kidney Failure ?< 15 ??mL/min/1.73m2 *Relative to young adult level Estimated glomerular filtration rate is determined by the 2020 CKD-EPI equation recommended by the National Kidney Foundation (A Unifying Approach to GFR Estimation: Recommendations of the NKF-ASK Task Force on Reassessing the Inclusion of Race in Diagnosing Kidney Disease, KIMBERLYSN 2020). The CKD-EPI equation should not be used for patients with unstable renal function and has not been validated in children and those over 70. Current interpretive data was last reviewed 2021. Blood 09/29/2024 4:17 PM FRAMER 09/29/2024 4:57 PM FRAMER us Kathia Ruiz MD LAB BLOOD ORDERABLES Jessica cruz Result [facility] One [facility] Department [place] [address] * (ABNORMAL) Differential, auto (09/29/2024 4:17 PM FRAMER) Neutrophil abs 8.2(H) 1.5 - 6.5 K/cumm Imm gran abs 0.1 0.0 - 0.1 K/cumm [facility] Lymphocyte abs 0.8 0.8 - 3.3 K/cumm [facility] Monocyte abs 0.3 0.2 - 0.8 K/cumm [facility] Eosinophil abs 0.1 0.0 - 0.5 K/cumm [facility] Basophil abs 0.0 0.0 - 0.1 K/cumm [facility] Neutrophil pct 86.8 % [facility] Comment: Interpretive Data Percent cell count reference ranges are not reported, since discordance with absolute values may lead to misinterpretation of CBC data. Current Interpretive Data was last revised on 2018. Imm gran pct 1.2 % [facility] Comment: Interpretive Data Percent cell count reference ranges are not reported, since discordance with absolute values may lead to misinterpretation of CBC data. Current Interpretive Data was last revised on 2018. Lymphocyte pct 8.0 % [facility] Comment: Interpretive Data Percent cell count reference ranges are not reported, since discordance with absolute values may lead to misinterpretation of CBC data. Current Interpretive Data was last revised on 2018. Monocyte pct 2.6 % [facility] Comment: Interpretive Data Percent cell count reference ranges are not reported, since discordance with absolute values may lead to misinterpretation of CBC data. Current Interpretive Data was last revised on 2018. Eosinophil pct 1.3 % [facility] Comment: Interpretive Data Percent cell count reference ranges are not reported, since discordance with absolute values may lead to misinterpretation of CBC data. Current Interpretive Data was last revised on 2018. Basophil pct 0.1 % [facility] Comment: Interpretive Data Percent cell count reference ranges are not reported, since discordance with absolute values may lead to misinterpretation of CBC data. Current Interpretive Data was last revised on 2018. Blood 09/29/2024 4:17 PM FRAMER 09/29/2024 4:57 PM FRAMER us Kathia Ruiz MD LAB BLOOD ORDERABLES Jessica cruz Result [facility] One [facility] Department [place] [address] * (ABNORMAL) CBC with auto differential (09/29/2024 4:17 PM FRAMER) WBC 9.5 3.8 - 9.9 K/cumm Hgb 9.5(L) 13.0 - 17.5 g/dL [facility] Hct 31.3(L) 38.9 - 50.3 % [facility] Plt 357 150 - 400 K/cumm [facility] MPV 10.7 9.1 - 12.3 fL [facility] RBC 4.30 4.30 - 5.80 M/cumm [facility] MCV 72.8(L) 81.3 - 96.4 fL [facility] MCH 22.1(L) 27.1 - 33.3 pg [facility] MCHC 30.4(L) 32.3 - 35.7 g/dL [facility] RDW CV 17.3(H) 11.1 - 14.9 % [facility] RDW SD 45.9 35.7 - 48.1 fL [facility] NRBC abs 0.00 0.00 - 0.01 K/cumm [facility] Blood 09/29/2024 4:17 PM FRAMER 09/29/2024 4:57 PM FRAMER Kathia Ruiz MD LAB BLOOD ORDERABLES Jessica l Result Performing Organization Address [facility] de Phone Number [facility] [place] [address] * (ABNORMAL) aPTT (09/29/2024 4:17 PM FRAMER) aPTT 43(H) 28 - 38 sec Comment: Interpretive Data Heparin therapeutic range: 66.0 - 100.0 seconds. Range based on correlation with therapeutic heparin activity range of 0.3 - 0.7 Units/mL. Current interpretive data was last revised on 2023. Blood 09/29/2024 4:17 PM FRAMER 09/29/2024 4:53 PM FRAMER Kathia Ruiz MD LAB BLOOD ORDERABLES Jessica l Result Performing Organization Address [facility] de Phone Number [facility] [place] [address] * (ABNORMAL) Protime-INR (09/29/2024 4:17 PM FRAMER) PT 16.1(H) 9.7 - 13.0 sec INR 1.48(H) 0.90 - 1.20 [facility] Comment: Interpretive data Oral anticoagulant therapeutic ranges: Venous thromboembolism prophylaxis or treatment: 2.0-3.0 CARDIOLOGY Standard range: 2.0-3.0 High-intensity range: 2.5-3.5 Refer to indication-specific guidelines for appropriate target ranges for prosthetic heart valve replacement. Current interpretive data was last revised on 2019. Blood 09/29/2024 4:17 PM FRAMER 09/29/2024 4:53 PM FRAMER Kathia Ruiz MD LAB BLOOD ORDERABLES Jessica l Result Performing Organization Address [facility] de Phone Number [facility] [place] [address] * (ABNORMAL) Reticulocyte Count (09/29/2024 4:17 PM FRAMER) Pathologist [facility] Retics, absolute 0.055 0.020 - 0.087 M/cumm Retics 1.6 0.4 - 2.9 % [facility] Reticulocyte Hgb 20.9(L) 30.5 - 38.0 pg [facility] Blood 09/29/2024 4:17 PM FRAMER 09/29/2024 4:57 PM FRAMER Kathia Ruiz MD LAB BLOOD ORDERABLES Jessica l Result Performing Organization Address [facility] de Phone Number [facility] [place] [address] * (ABNORMAL) Folate (09/29/2024 4:17 PM FRAMER) [facility] Folic acid 3.9(L) >=5.0 ng/mL Blood 09/29/2024 4:17 PM FRAMER 09/29/2024 4:57 PM FRAMER Kathia Ruiz MD LAB BLOOD ORDERABLES Jessica l Result Performing Organization Address [facility] de Phone Number [facility] [place] [address] * (ABNORMAL) Ferritin (09/29/2024 4:17 PM FRAMER) [facility] Ferritin 649(H) 30 - 400 ng/mL Blood 09/29/2024 4:17 PM FRAMER 09/29/2024 4:57 PM FRAMER Kathia Ruiz MD LAB BLOOD ORDERABLES Jessica l Result Performing Organization Address [facility]/ZIP Co de Phone Number [facility] Department [place] [address] * Vitamin B12 (09/29/2024 4:17 PM FRAMER) [facility] Vitamin B12 656 230 - 1,250 pg/mL Blood 09/29/2024 4:17 PM FRAMER 09/29/2024 4:57 PM FRAMER us Kathia Ruiz MD LAB BLOOD ORDERABLES Jessica l Result Performing Organization Address [facility] Co de Phone Number [facility] [place] [address] * (ABNORMAL) Basic metabolic panel (09/29/2024 4:17 PM FRAMER) [facility] Sodium 138 135 - 145 mmol/L Potassium, pl 3.5 3.3 - 4.9 mmol/L [facility] Chloride 105 97 - 110 mmol/L [facility] CO2 20(L) 22 - 32 mmol/L [facility] Anion gap 13 2 - 15 mmol/L [facility] BUN 10 6 - 25 mg/dL [facility] Creatinine 0.67(L) 0.80 - 1.30 mg/dL [facility] Glucose 104 70 - 199 mg/dL [facility] Comment: Interpretive Data Fasting glucose >/= 126 mg/dl is diagnostic for diabetes. ?? Fasting is defined as no caloric intake for at least 8 hours. Fasting glucose between 100 mg/dl to 125 mg/dl is diagnostic of prediabetes. In a patient with classic symptoms of hyperglycemia or hyperglycemic crisis, a random glucose >/= 200 mg/dl is diagnostic for diabetes. In the absence of unequivocal hyperglycemia, results should be confirmed by repeat testing. The classification and Diagnosis of Diabetes Diabetes Care 202; 46: S19-S40. Current interpretive data was last revised 2022. Calcium 8.1(L) 8.5 - 10.3 mg/dL [facility] Blood 09/29/2024 4:17 PM FRAMER 09/29/2024 4:57 PM FRAMER Kathia Ruiz MD LAB BLOOD ORDERABLES Jessica l Result Performing Organization Address [facility] Co de Phone Number [facility] Department [place] [address] * Tissue aerobic and anaerobic culture and gram stain Tissue Sacral (09/29/2024 12:37 PM FRAMER) Direct Specimen Exam Stain: No polymorphonuclear leukocytes seen. No organisms seen. Report Final Report: No growth [facility] Tissue (Sacral) 09/29/2024 1 2:37 PM FRAMER 09/29/2024 2:14 PM FRAMER Narrative [facility] - 10/02/2024 10:33 AM FRAMER Left sacrum Specimen received in anaerobic transport media. Testing performed by [facility] ([phone]) Specimens submitted from normally sterile body sites will have all bacterial morphotypes identified. Specimens that contain grossly mixed meir and/or are from body sites that are not normally sterile will be examined for Staphylococcus aureus, Pseudomonas aeruginosa, beta-hemolytic strep, vancomycin-resistant Enterococcus, Bacteroides, Parabacteroides, Clostridium perfringens and fungus. If any of these are isolated, the organism will be reported. Current interpretive data was last revised on 2020. Teri Hendrix DO LAB MICROBIOLOGY - GENERAL ORDERABLES Final Result Performing Organization Address [facility] Co de Phone Number [facility] Department [place] [address] * Mycology (fungal) culture Tissue Sacral (09/29/2024 12:37 PM FRAMER) Report Final Report: No growth of fungus Tissue (Sacral) 09/29/2024 1 2:37 PM FRAMER 09/29/2024 2:15 PM FRAMER Narrative [facility] - 10/27/2024 7:59 AM FRAMER Left sacrum Specimen received in anaerobic transport media. Testing performed by [facility] ([phone]). [facility] LAB MICROBIOLOGY - GENERAL ORDERABLES Final Result Performing Organization Address [facility]/ZIP Co de Phone Number [facility] [place] [address] * (ABNORMAL) Tissue aerobic and anaerobic culture and gram stain Tissue Sacral (09/29/2024 12:26 PM FRAMER) Direct Specimen Exam Stain: No polymorphonuclear leukocytes seen. No organisms seen. Report Final Report: Few Mixed aerobic and anaerobic microorganisms Includes the following: Rare Amanda albicans (.) [facility] Organism MIXED AEROBIC AND ANAEROBIC MICROORGANISMS [facility] Organism AMANDA ALBICANS [facility] Tissue (Sacral) 09/29/2024 1 2:26 PM FRAMER 09/29/2024 2:01 PM FRAMER Narrative [facility] - 10/02/2024 3:00 PM FRAMER Right sacrum Specimen received in anaerobic transport media. Testing performed by [facility] ([phone]) Specimens submitted from normally sterile body sites will have all bacterial morphotypes identified. Specimens that contain grossly mixed meir and/or are from body sites that are not normally sterile will be examined for Staphylococcus aureus, Pseudomonas aeruginosa, beta-hemolytic strep, vancomycin-resistant Enterococcus, Bacteroides, Parabacteroides, Clostridium perfringens and fungus. If any of these are isolated, the organism will be reported. Current interpretive data was last revised on 2020. [facility] [employer] [facility] LAB MICROBIOLOGY - GENERAL ORDERABLES Final Result Performing Organization Address City/[facility]/ZIP Co de Phone Number [facility] [place] [address] * (ABNORMAL) Mycology (fungal) culture Tissue Sacral (09/29/2024 12:26 PM FRAMER) Report Final Report: Amanda albicans (.) Organism AMANDA ALBICANS [facility] Tissue (Sacral) 09/29/2024 1 2:26 PM FRAMER 09/29/2024 2:01 PM FRAMER Narrative [facility]AN RON[facility] - 10/27/2024 7:56 AM FRAMER Right sacrum Specimen received in anaerobic transport media. Testing performed by [facility] ([phone]). Teri Hendrix DO LAB MICROBIOLOGY - GENERAL ORDERABLES Final Result [facility] Department [place] [address] * UT AN ELECTIVE ENDOTRACHEAL AIRWAY, UT AN PROCEDURE PLACEHOLDER (09/29/2024 11:36 AM FRAMER) Narrative Pallavi Dennis CRNA - 09/29/2024 11:36 AM FRAMER Pallavi Dennis CRNA ? 09/29/2024 11:38 AM Airway Patient location: OR Urgency: elective Indications for airway management: anesthesia and airway protection Difficult airway: no Staff: Supervising provider: Natasha Murphy MD Placed by: BILLBOARD INSTALLER: Pallavi Dennis CRNA Emergent airway documentation: Risks and benefits discussed: yes Consent obtained: yes Consent given by: patient Airway prep: Preoxygenated: yes Patient position: sniffing MILS maintained throughout: yes Mask difficulty assessment: 0 - not attempted Spontaneous ventilation during airway: absent Sedation level during airway: GA Final airway details: Final airway type: endotracheal airway Tube type: ETT ETT size: 7.5 mm Cuffed: yes Technique used for successful ETT placement: video laryngoscopy Devices/Methods used in placement: stylet Insertion site: oral Blade type: Aaron Video blade type: Lagunas Blade size: 4 Cormack-Lehane (video): grade I - full view of glottis Cuff volume: 8 mL Cuff inflated with: air ETT to lips: 24 cm Placement verified by: auscultation Airway secured with: silk tape and prone view tape Number of attempts: 1 Natasha Murphy MD ANESTHESIA ORD ERABLES Final Result * eGFR (09/29/2024 5:48 AM FRAMER) eGFR >90 >=60 mL/min/1. 73 m2 Comment: Interpretive Data Reference Interval Normal ?>/= 90 mL/min/1.73m2 Mildly decreased* ? 60 - 89 mL/min/1.73m2 Mildly to moderately decreased ?45 - 59 mL/min/1.73m2 Moderately to severely decreased ??30 - 44 mL/min/1.73m2 Severely decreased ?15 - 29 mL/min/1.73m2 Kidney Failure ?< 15 ??mL/min/1.73m2 *Relative to young adult level Estimated glomerular filtration rate is determined by the 2020 CKD-EPI equation recommended by the National Kidney Foundation (A Unifying Approach to GFR Estimation: Recommendations of the NKF-ASK Task Force on Reassessing the Inclusion of Race in Diagnosing Kidney Disease, JASN 2020). The CKD-EPI equation should not be used for patients with unstable renal function and has not been validated in children and those over 70. Current interpretive data was last reviewed 2021. Blood 09/29/2024 5:48 AM FRAMER 09/29/2024 6:22 AM FRAMER us Kathia Ruiz MD LAB BLOOD ORDERABLES Jessica cruz Result [facility] One [facility] Department [place] [address] * (ABNORMAL) Differential, auto (09/29/2024 5:48 AM FRAMER) Pathologist [facility] Neutrophil abs 9.0(H) 1.5 - 6.5 K/cumm Imm gran abs 0.1 0.0 - 0.1 K/cumm [facility] Lymphocyte abs 1.1 0.8 - 3.3 K/cumm [facility] Monocyte abs 0.6 0.2 - 0.8 K/cumm [facility] Eosinophil abs 0.4 0.0 - 0.5 K/cumm [facility] Basophil abs 0.0 0.0 - 0.1 K/cumm [facility] Neutrophil pct 80.1 % [facility] Comment: Interpretive Data Percent cell count reference ranges are not reported, since discordance with absolute values may lead to misinterpretation of CBC data. Current Interpretive Data was last revised on 2018. Imm gran pct 1.1 % [facility] Comment: Interpretive Data Percent cell count reference ranges are not reported, since discordance with absolute values may lead to misinterpretation of CBC data. Current Interpretive Data was last revised on 2018. Lymphocyte pct 10.1 % [facility] Comment: Interpretive Data Percent cell count reference ranges are not reported, since discordance with absolute values may lead to misinterpretation of CBC data. Current Interpretive Data was last revised on 2018. Monocyte pct 5.1 % [facility] Comment: Interpretive Data Percent cell count reference ranges are not reported, since discordance with absolute values may lead to misinterpretation of CBC data. Current Interpretive Data was last revised on 2018. Eosinophil pct 3.4 % [facility] Comment: Interpretive Data Percent cell count reference ranges are not reported, since discordance with absolute values may lead to misinterpretation of CBC data. Current Interpretive Data was last revised on 2018. Basophil pct 0.2 % [facility] Comment: Interpretive Data Percent cell count reference ranges are not reported, since discordance with absolute values may lead to misinterpretation of CBC data. Current Interpretive Data was last revised on 2018. Blood 09/29/2024 5:48 AM FRAMER 09/29/2024 6:23 AM FRAMER us Kathia Ruiz MD LAB BLOOD ORDERABLES Jessica cruz Result [facility] Department [place] [address] * (ABNORMAL) CBC with auto differential (09/29/2024 5:48 AM FRAMER) [facility] WBC 11.2(H) 3.8 - 9.9 K/cumm Hgb 8.2(L) 13.0 - 17.5 g/dL [facility] Hct 27.1(L) 38.9 - 50.3 % [facility] Plt 391 150 - 400 K/cumm [facility] MPV 10.8 9.1 - 12.3 fL [facility] RBC 3.70(L) 4.30 - 5.80 M/cumm [facility] MCV 73.2(L) 81.3 - 96.4 fL [facility] MCH 22.2(L) 27.1 - 33.3 pg [facility] MCHC 30.3(L) 32.3 - 35.7 g/dL [facility] RDW CV 17.2(H) 11.1 - 14.9 % [facility] RDW SD 45.8 35.7 - 48.1 fL [facility] NRBC abs 0.00 0.00 - 0.01 K/cumm [facility] Blood 09/29/2024 5:48 AM FRAMER 09/29/2024 6:23 AM FRAMER Kathia Ruiz MD LAB BLOOD ORDERABLES Jessica cruz Result [facility] Department [place] [address] * aPTT (09/29/2024 5:48 AM FRAMER) Pathologist [facility] aPTT 33 28 - 38 sec Comment: Interpretive Data Heparin therapeutic range: 66.0 - 100.0 seconds. Range based on correlation with therapeutic heparin activity range of 0.3 - 0.7 Units/mL. Current interpretive data was last revised on 2023. Blood 09/29/2024 5:48 AM FRAMER 09/29/2024 6:09 AM FRAMER Kathia Ruiz MD LAB BLOOD ORDERABLES Jessica l Result Performing Organization Address [facility] de Phone Number [facility] [place] [address] * (ABNORMAL) Protime-INR (09/29/2024 5:48 AM FRAMER) PT 16.3(H) 9.7 - 13.0 sec INR 1.50(H) 0.90 - 1.20 [facility] Comment: Interpretive data Oral anticoagulant therapeutic ranges: Venous thromboembolism prophylaxis or treatment: 2.0-3.0 CARDIOLOGY Standard range: 2.0-3.0 High-intensity range: 2.5-3.5 Refer to indication-specific guidelines for appropriate target ranges for prosthetic heart valve replacement. Current interpretive data was last revised on 2019. Blood 09/29/2024 5:48 AM FRAMER 09/29/2024 6:09 AM FRAMER Kathia Ruiz MD LAB BLOOD ORDERABLES Jessica l Result Performing Organization Address [facility] de Phone Number [facility] Department [place] [address] * (ABNORMAL) Basic metabolic panel (09/29/2024 5:48 AM FRAMER) Sodium 136 135 - 145 mmol/L Potassium, pl 3.5 3.3 - 4.9 mmol/L [facility] Chloride 102 97 - 110 mmol/L [facility] CO2 23 22 - 32 mmol/L [facility] Anion gap 11 2 - 15 mmol/L [facility] BUN 9 6 - 25 mg/dL [facility] Creatinine 0.71(L) 0.80 - 1.30 mg/dL [facility] Glucose 90 70 - 199 mg/dL [facility] Comment: Interpretive Data Fasting glucose >/= 126 mg/dl is diagnostic for diabetes. ?? Fasting is defined as no caloric intake for at least 8 hours. Fasting glucose between 100 mg/dl to 125 mg/dl is diagnostic of prediabetes. In a patient with classic symptoms of hyperglycemia or hyperglycemic crisis, a random glucose >/= 200 mg/dl is diagnostic for diabetes. In the absence of unequivocal hyperglycemia, results should be confirmed by repeat testing. The classification and Diagnosis of Diabetes Diabetes Care 2021; 46: S19-S40. Current interpretive data was last revised 2022. Calcium 8.2(L) 8.5 - 10.3 mg/dL [facility] Blood 09/29/2024 5:48 AM FRAMER 09/29/2024 6:22 AM FRAMER us Kathia Ruiz MD LAB BLOOD ORDERABLES Jessica cruz Result [facility] One [facility] [place] [address] * (ABNORMAL) CBC without differential (09/28/2024 9:26 PM FRAMER) WBC 14.9(H) 3.8 - 9.9 K/cumm Hgb 8.3(L) 13.0 - 17.5 g/dL [facility] Hct 27.5(L) 38.9 - 50.3 % [facility] Plt 388 150 - 400 K/cumm [facility] MPV 11.1 9.1 - 12.3 fL [facility] RBC 3.75(L) 4.30 - 5.80 M/cumm [facility] MCV 73.3(L) 81.3 - 96.4 fL [facility] MCH 22.1(L) 27.1 - 33.3 pg [facility] MCHC 30.2(L) 32.3 - 35.7 g/dL [facility] RDW CV 17.2(H) 11.1 - 14.9 % [facility] RDW SD 45.5 35.7 - 48.1 fL [facility] NRBC abs 0.00 0.00 - 0.01 K/cumm [facility] Blood 09/28/2024 9:26 PM FRAMER 09/28/2024 10:09 PM FRAMER Kathia Ruiz MD LAB BLOOD ORDERABLES Jessica l Result Performing Organization Address City/[facility] Co de Phone Number JUAN RONQUILLO [facility] [place] [address] * Potassium, whole blood (09/28/2024 1:54 PM FRAMER) Pathologist [facility] Potassium, bld 3.4 3.3 - 4.9 mmol/L Blood 09/28/2024 1:54 PM FRAMER 09/28/2024 2:12 PM FRAMER Kathia Ruiz MD LAB BLOOD ORDERABLES Jessica l Result Performing Organization Address [facility] de Phone Number [facility] RONQUILLO Tristian [facility] Department [place] [address] * eGFR (09/28/2024 1:54 PM FRAMER) Pathologist [facility] eGFR >90 >=60 mL/min/1. 73 m2 Comment: Interpretive Data Reference Interval Normal ?>/= 90 mL/min/1.73m2 Mildly decreased* ? 60 - 89 mL/min/1.73m2 Mildly to moderately decreased ?45 - 59 mL/min/1.73m2 Moderately to severely decreased ??30 - 44 mL/min/1.73m2 Severely decreased ?15 - 29 mL/min/1.73m2 Kidney Failure ?< 15 ??mL/min/1.73m2 *Relative to young adult level Estimated glomerular filtration rate is determined by the 2020 CKD-EPI equation recommended by the National Kidney Foundation (A Unifying Approach to GFR Estimation: Recommendations of the NKF-ASK Task Force on Reassessing the Inclusion of Race in Diagnosing Kidney Disease, JASN 2020). The CKD-EPI equation should not be used for patients with unstable renal function and has not been validated in children and those over 70. Current interpretive data was last reviewed 2021. Blood 09/28/2024 1:54 PM FRAMER 09/28/2024 2:19 PM FRAMER us Kathia Ruiz MD LAB BLOOD ORDERABLES Jessica cruz Result [facility] Department [place] [address] * (ABNORMAL) Differential, auto (09/28/2024 1:54 PM FRAMER) Neutrophil abs 13.6(H) 1.5 - 6.5 K/cumm Imm gran abs 0.2(H) 0.0 - 0.1 K/cumm [facility] Lymphocyte abs 0.8 0.8 - 3.3 K/cumm [facility] Monocyte abs 0.7 0.2 - 0.8 K/cumm [facility] Eosinophil abs 0.3 0.0 - 0.5 K/cumm [facility] Basophil abs 0.0 0.0 - 0.1 K/cumm [facility] Neutrophil pct 87.8 % [facility] Comment: Interpretive Data Percent cell count reference ranges are not reported, since discordance with absolute values may lead to misinterpretation of CBC data. Current Interpretive Data was last revised on 2018. Imm gran pct 1.0 % [facility] Comment: Interpretive Data Percent cell count reference ranges are not reported, since discordance with absolute values may lead to misinterpretation of CBC data. Current Interpretive Data was last revised on 2018. Lymphocyte pct 5.1 % [facility] Comment: Interpretive Data Percent cell count reference ranges are not reported, since discordance with absolute values may lead to misinterpretation of CBC data. Current Interpretive Data was last revised on 2018. Monocyte pct 4.3 % [facility] Comment: Interpretive Data Percent cell count reference ranges are not reported, since discordance with absolute values may lead to misinterpretation of CBC data. Current Interpretive Data was last revised on 2018. Eosinophil pct 1.6 % [facility] Comment: Interpretive Data Percent cell count reference ranges are not reported, since discordance with absolute values may lead to misinterpretation of CBC data. Current Interpretive Data was last revised on 2018. Basophil pct 0.2 % [facility] Comment: Interpretive Data Percent cell count reference ranges are not reported, since discordance with absolute values may lead to misinterpretation of CBC data. Current Interpretive Data was last revised on 2018. Blood 09/28/2024 1:54 PM FRAMER 09/28/2024 2:19 PM FRAMER Kathia Ruiz MD LAB BLOOD ORDERABLES Jessica l Result Performing Organization Address [facility] Co de Phone Number [facility] [place] [address] * (ABNORMAL) Iron profile w/ IBC (09/28/2024 1:54 PM FRAMER) Pathologist [facility] Iron 10(L) 50 - 150 mcg/dL TIBC 106(L) 250 - 400 mcg/dL [facility] Transferrin saturation 9(L) 20 - 50 % [facility] Blood 09/28/2024 1:54 PM FRAMER 09/28/2024 2:19 PM FRAMER Kathia Ruiz MD LAB BLOOD ORDERABLES Jessica l Result Performing Organization Address City/[facility]/ZIP Co de Phone Number [facility] [place] [address] * (ABNORMAL) CBC with auto differential (09/28/2024 1:54 PM FRAMER) Pathologist [facility] WBC 15.4(H) 3.8 - 9.9 K/cumm Hgb 8.1(L) 13.0 - 17.5 g/dL [facility] Hct 26.5(L) 38.9 - 50.3 % [facility] Plt 377 150 - 400 K/cumm [facility] MPV 10.7 9.1 - 12.3 fL [facility] RBC 3.57(L) 4.30 - 5.80 M/cumm [facility] MCV 74.2(L) 81.3 - 96.4 fL [facility] MCH 22.7(L) 27.1 - 33.3 pg [facility] MCHC 30.6(L) 32.3 - 35.7 g/dL [facility] RDW CV 17.0(H) 11.1 - 14.9 % [facility] RDW SD 46.5 35.7 - 48.1 fL [facility] NRBC abs 0.00 0.00 - 0.01 K/cumm [facility] Blood 09/28/2024 1:54 PM FRAMER 09/28/2024 2:19 PM FRAMER Kathia Ruiz MD LAB BLOOD ORDERABLES Jessica l Result Performing Organization Address [facility] de Phone Number [facility] Department [place] [address] * aPTT (09/28/2024 1:54 PM FRAMER) [facility] aPTT 33 28 - 38 sec Comment: Interpretive Data Heparin therapeutic range: 66.0 - 100.0 seconds. Range based on correlation with therapeutic heparin activity range of 0.3 - 0.7 Units/mL. Current interpretive data was last revised on 2023. Blood 09/28/2024 1:54 PM FRAMER 09/28/2024 2:15 PM FRAMER Kathia Ruiz MD LAB BLOOD ORDERABLES Jessica l Result Performing Organization Address [facility] de Phone Number [facility] Department [place] [address] * (ABNORMAL) Protime-INR (09/28/2024 1:54 PM FRAMER) [facility] PT 16.8(H) 9.7 - 13.0 sec INR 1.54(H) 0.90 - 1.20 [facility] Comment: Interpretive data Oral anticoagulant therapeutic ranges: Venous thromboembolism prophylaxis or treatment: 2.0-3.0 CARDIOLOGY Standard range: 2.0-3.0 High-intensity range: 2.5-3.5 Refer to indication-specific guidelines for appropriate target ranges for prosthetic heart valve replacement. Current interpretive data was last revised on 2019. Blood 09/28/2024 1:54 PM FRAMER 09/28/2024 2:15 PM FRAMER Kathia uRiz MD LAB BLOOD ORDERABLES Jessica l Result Performing Organization Address [facility] de Phone Number [facility] Department [place] [address] * Type and screen (09/28/2024 1:54 PM FRAMER) Pathologist [facility] ABO Rh A Positive Pb, indirect Negative [facility] Blood 09/28/2024 1:54 PM FRAMER 09/28/2024 2:21 PM FRAMER Narrative [facility] - 09/28/2024 3:24 PM FRAMER Has the patient had Daratumumab or Isatuximab in the past 6 months?->Unknown Kathia Ruiz MD LAB BLOOD BANK TEST ORDER WHITNEY Final Result Performing Organization Address [facility] de Phone Number [facility] Department [place] [address] * Osmolality, blood (09/28/2024 1:54 PM FRAMER) Pathologist [facility] Osmo 276 275 - 300 mOsm/kg Blood 09/28/2024 1:54 PM FRAMER 09/28/2024 2:19 PM FRAMER Kathia Ruiz MD LAB BLOOD ORDERABLES Jessica l Result Performing Organization Address [facility] de Phone Number [facility] Department [place] [address] * (ABNORMAL) Hemoglobin A1c (09/28/2024 1:54 PM FRAMER) Pathologist [facility] Hgb A1C 5.8(H) 4.0 - 5.6 % Estimated Average Glucose 120 mg/dL [facility] Comment: The ADA recommends reporting an estimated Average Glucose (eAG) with all Hemoglobin A1c results using the equation derived from a study of 507 normal and diabetic adults. ??Minority populations were underrepresented and children were not included. ?? (Diabetes Care 2020; 43(S1): S66-S76). ??The eAG is not equivalent to a fasting glucose. Blood 09/28/2024 1:54 PM FRAMER 09/28/2024 2:19 PM FRAMER Kathia Ruiz MD LAB BLOOD ORDERABLES Jessica l Result Performing Organization Address [facility] de Phone Number [facility] Department [place] [address] * (ABNORMAL) Comprehensive metabolic panel (09/28/2024 1:54 PM FRAMER) [facility] Sodium 135 135 - 145 mmol/L Potassium, pl 3.4 3.3 - 4.9 mmol/L [facility] Chloride 101 97 - 110 mmol/L [facility] CO2 22 22 - 32 mmol/L [facility] Anion gap 12 2 - 15 mmol/L [facility] BUN 7 6 - 25 mg/dL [facility] Creatinine 0.74(L) 0.80 - 1.30 mg/dL [facility] Glucose 86 70 - 199 mg/dL [facility] Comment: Interpretive Data Fasting glucose >/= 126 mg/dl is diagnostic for diabetes. ?? Fasting is defined as no caloric intake for at least 8 hours. Fasting glucose between 100 mg/dl to 125 mg/dl is diagnostic of prediabetes. In a patient with classic symptoms of hyperglycemia or hyperglycemic crisis, a random glucose >/= 200 mg/dl is diagnostic for diabetes. In the absence of unequivocal hyperglycemia, results should be confirmed by repeat testing. The classification and Diagnosis of Diabetes Diabetes Care 202; 46: S19-S40. Current interpretive data was last revised 2022. Calcium 8.2(L) 8.5 - 10.3 mg/dL [facility] Bilirubin, total 0.4 0.1 - 1.2 mg/dL [facility] Protein, pl 7.1 6.5 - 8.5 g/dL [facility] Albumin 2.7(L) 3.5 - 5.0 g/dL [facility] Alk phos 104 40 - 130 Units/L [facility] ALT 36 7 - 55 Units/L [facility] AST 19 10 - 50 Units/L [facility] Blood 09/28/2024 1:54 PM FRAMER 09/28/2024 2:19 PM FRAMER Kathia Ruiz MD LAB BLOOD ORDERABLES Jessica l Result Performing Organization Address [facility] Co de Phone Number [facility] [place] [address] * Urine culture Urine, in and out catheter (09/28/2024 1:35 PM FRAMER) Report Final Report: Less than 10,000 colonies/mL (clinically insignificant growth based on current clinical standards) Organism (CLINICALLY INSIGNIFICANT GROWTH [facility] Urine, in and out catheter 09/28/2024 1:35 PM FRAMER 09/28/2024 4:19 PM FRAMER Narrative [facility] - 09/29/2024 5:12 PM FRAMER Indications for Culture:->Recent positive UA Specimen received in a sterile container. Testing performed by [facility] ([phone]) Kathia Ruiz MD LAB MICROBIOLOGY - GENERA L ORDERABLES Final Result Performing Organization Address [facility]/ZIP Co de Phone Number [facility] Department [place] [address] * Urea nitrogen, urine, random (09/28/2024 1:07 PM FRAMER) Urea nitrogen, ur 665 mg/dL Comment: Interpretive Data No reference range established. Current interpretive data was last revised 2019. Urine 09/28/2024 1:07 PM FRAMER 09/28/2024 4:14 PM FRAMER Kathia Ruiz MD LAB URINE ORDERABLES Jessica l Result Performing Organization Address [facility] [place] [address] * Sodium, urine, random (09/28/2024 1:07 PM FRAMER) Sodium, ur 21 mmol/L Comment: Interpretive Data No reference range established. Current interpretive data was last revised 2019. Urine 09/28/2024 1:07 PM FRAMER 09/28/2024 4:14 PM FRAMER Kathia Ruiz MD LAB URINE ORDERABLES Jessica l Result Performing Organization Address [facility] Co de Phone Number [facility] Department [place] [address] * Osmolality, urine (09/28/2024 1:07 PM FRAMER) Osmo, ur 631 mOsm/kg Urine 09/28/2024 1:07 PM FRAMER 09/28/2024 4:12 PM FRAMER Kathia Ruiz MD LAB URINE ORDERABLES Jessica l Result Performing Organization Address [facility] Co de Phone Number [facility] [place] [address] * Creatinine, urine, random (09/28/2024 1:07 PM FRAMER) Creatinine Ur 185.5 mg/dL Comment: Interpretive Data No reference range established. Current interpretive data was last revised 2019. Urine 09/28/2024 1:07 PM FRAMER 09/28/2024 4:14 PM FRAMER Kathia Ruiz MD LAB URINE ORDERABLES Jessica l Result Performing Organization Address [facility] Co de Phone Number [facility] One [facility] [place] [address] * ECG 12 lead (09/28/2024 11:11 AM FRAMER) Pathologist [facility] Ventricular Rate EKG/Min 91 BPM [facility] Atrial Rate 91 BPM [facility] UT-Interval (MSEC) 168 ms [facility] QRS-Interval (MSEC) 96 ms [facility] QT-Interval (MSEC) 348 ms [facility] QTc 428 ms [facility] P Kyle 45 degrees [facility] R Kyle 35 degrees [facility] T Kyle -6 degrees [facility] Diagnosis Normal sinus rhythm Nonspecific T wave abnormality Abnormal ECG Confirmed by Viri HERRERA, [facility] ([id number]) on 10/03/2024 1:36:26 AM [facility] 09/28/2024 11:1 1 AM FRAMER 10/03/2024 1:36 AM FRAMER Kathia Ruiz MD ECG ORDERABLES Final Res ult Performing Organization Address [facility] de Phone Number [facility] * (ABNORMAL) Urinalysis reflex to microscopic and culture Urine (09/28/2024 7:53 AM FRAMER) Color, ur Yellow Yellow Clarity, ur Cloudy(A) Clear [facility] Specific gravity, ur >1.042(H) 1.003 - 1.030 [facility] pH, urine 6.5 [facility] Comment: Interpretive Data ? Urine pH is affected by diet, medications, systemic acid-base disturbances, and renal tubular function. ??pH may affect urinary stone formation. ??For example, urine pH below 6.0 may help reduce the tendency for calcium phosphate stones and pH greater than 6.0 may reduce the tendency for uric acid stone formation. Source: [facility] Current Interpretive Data was last revised on 2017 Protein, ur ql 2+(A) Negative [facility] Glucose, ur ql Negative Negative [facility] Ketones, ur 2+(A) Negative [facility] Bilirubin, ur Negative Negative [facility] Blood, ur Negative Negative [facility] Urobilinogen, ur <2.0 <2.0 mg/dL [facility] Nitrite, ur Positive(A) Negative [facility] Leukocyte esterase, ur 3+(A) Negative [facility] UA reflex comment Reflex to microscopic UA will be performed. [facility] Urine 09/28/2024 7:53 AM FRAMER 09/28/2024 8:03 AM FRAMER Adelina Galvan MD LAB MICROBIOLOGY - GENE RAL ORDERABLES Final Result Performing Organization Address [facility] de Phone Number [facility] One [facility] Department [place] [address] * (ABNORMAL) Urinalysis, microscopic only (09/28/2024 7:53 AM FRAMER) WBC, ur >50(A) 0 - 5 /HPF RBC, ur >50(A) 0 - 2 /HPF [facility] Epithelial cells, squamous, ur 6-10(A) 0 - 5 /HPF [facility] Comment:Suggestive of contam ination. Consider recollection by clean catch. Bacteria, ur 2+(A) [facility] Mucous, ur Present(A) [facility] Culture Reflex Comment Reflex to urine culture will be performed. [facility] Urine 09/28/2024 7:53 AM FRAMER 09/28/2024 8:03 AM FRAMER Adelina Galvan MD LAB URINE ORDERABLES Fi nal Result Performing Organization Address City/[facility]/ZIP Co de Phone Number [facility] [place] [address] * (ABNORMAL) Urine culture Urine (09/28/2024 7:53 AM FRAMER) Report Final Report: Growth indicates contamination with mixed bacterial meir. Please submit a new specimen with special attention given to the collection process and to prompt transport to the laboratory. (.) Organism GROWTH INDICATES CONTAMINATION WITH MIXED MEIR. [facility] Urine 09/28/2024 7:53 AM FRAMER 09/28/2024 2:59 PM FRAMER Narrative [facility] - 09/29/2024 10:59 PM FRAMER Testing performed by [facility] ([phone]) Kathia Ruiz MD LAB MICROBIOLOGY - GENERA L ORDERABLES Final Result Performing Organization Address [facility] de Phone Number [facility] Department [place] [address] * Influenza A/B, RSV, and COVID-19 PCR Nasopharyngeal (09/28/2024 1:08 AM FRAMER) COVID-19 RNA Negative Negative [facility] Influenza A RNA Negative Negative [facility] Influenza B RNA Negative Negative [facility] RSV RNA Negative Negative [facility] Comment: Interpretive data: Testing performed by [facility] ([phone]). This test is performed using the [employer] Xpert Xpress CoV-2/Flu/RSV plus assay. This is a multiplex, real-time reverse transcriptase PCR assay intended for the qualitative detection of nucleic acid from SARS-CoV-2, influenza A, influenza B, and respiratory syncytial virus. This assay has been cleared by the [place] Food and Drug administration. The performance characteristics have been verified by the [facility]. ??Results must be considered in the clinical context, and a negative result does not rule out infection. Interpretive Data last revised 2023 Nasopharyngeal 09/28/2024 1: 08 AM FRAMER 09/28/2024 1:18 AM FRAMER Narrative [facility] - 09/28/2024 2:01 AM FRAMER Is the Patient experiencing symptoms consistent with COVID?->Yes us Chula Tate MD LAB MICROBIOLOGY - GENERAL ORDERABLES Final Result [facility] [place] [address] [facility] * CT Abdomen Pelvis W Contrast (09/27/2024 11:35 PM FRAMER) Anatomical Region Laterality Modality Body N/A Computed Tomogra phy 09/28/2024 12:1 8 AM FRAMER Impressions 09/28/2024 8:01 AM FRAMER 1. ??Cutaneous tract extending from bilateral gluteal regions to bilateral underlying ischial tuberosities with progressive erosive changes of the initial tuberosities, right greater than left, concerning for acute osteomyelitis. 2. ??There is a new phlegmonous collection in the subcutaneous tissues of the back posterior to the sacrum with progressive sacral osseous destruction and cutaneous tract concerning for acute osteomyelitis. 3. 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 4. ??Lymphadenopathy and bilateral iliac chains and inguinal regions, most likely reactive. ??Recommend attention on follow-up. Dictated by: Micaela Marlow MD, PhD. The radiology attending physician has personally reviewed this study, and had reviewed and/or edited this written report and agrees with it. Electronically signed by: Cipriano Vergara M.D. Narrative 09/28/2024 8:01 AM FRAMER EXAMINATION: ??Computed tomography of the abdomen and pelvis with intravenous contrast HISTORY: Abdominal pain. ??History of sacral osteomyelitis. TECHNIQUE: ??Transaxial computed tomographic images of the abdomen and pelvis were obtained with intravenous contrast according to the standard protocol after the uneventful administration of 94 mL Opti-Ray 350 intravenous contrast. COMPARISON: Comparison is made to prior CT dated 07/14/2022. FINDINGS: There is no consolidation or mass in the imaged lung bases. ??No pleural effusion or pneumothorax. ??Mild bibasilar atelectasis. The imaged heart size is normal. ??There is no pericardial effusion The hepatic parenchyma is normal without suspicious lesion. ??There is no intrahepatic or extrahepatic biliary ductal dilation. ??The gallbladder surgically absent. ??The portal, splenic, and superior mesenteric veins are patent. ??The spleen, pancreas, and adrenal glands are normal. ??The main pancreatic duct is nondilated. The kidneys enhance symmetrically. ??Cortical scarring in the right kidney. ??Small hypoattenuating lesions within the right kidney are too small to characterize but are favored to represent hemorrhagic/proteinaceous cysts. 717 There is no hydronephrosis or obstructive nephrolithiasis. ??The urinary bladder is partially decompressed. 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 ??The prostate is normal. There is no ascites or pneumoperitoneum. The stomach, duodenum, and small bowel are unremarkable. ??There is no bowel wall thickening or obstruction. ??Postsurgical changes of ileocolonic anastomosis in the right lower quadrant. Body wall edema. ??Diffuse muscular atrophy. ??Bilateral hip joints with exuberant heterotopic ossification formation. Cutaneous tract extending from bilateral gluteal regions to bilateral underlying initial tuberosities with progressive erosive changes of the initial tuberosities, right greater than left, concerning for active osteomyelitis. There is a new phlegmonous collection in the subcutaneous tissues of the back posterior to the sacrum which measures approximately 4.6 x 3.19 (series 2, image 160) with progressive sacral osseous destruction and cutaneous tract. ??There are multiple prominent lymph nodes along bilateral iliac chains and inguinal regions, most likely reactive. The course and caliber of the abdominal aorta is normal. ??Inferior vena cava filter in place. Procedure Note Cipriano Vergara MD - 09/28/2024 EXAMINATION: Computed tomography of the abdomen and pelvis with intravenous contrast HISTORY: Abdominal pain. History of sacral osteomyelitis. TECHNIQUE: Transaxial computed tomographic images of the abdomen and pelvis were obtained with intravenous contrast according to the standard protocol after the uneventful administration of 94 mL Opti-Ray 350 intravenous contrast. COMPARISON: Comparison is made to prior CT dated 07/14/2022. FINDINGS: There is no consolidation or mass in the imaged lung bases. No pleural effusion or pneumothorax. Mild bibasilar atelectasis. The imaged heart size is normal. There is no pericardial effusion The hepatic parenchyma is normal without suspicious lesion. There is no intrahepatic or extrahepatic biliary ductal dilation. The gallbladder surgically absent. The portal, splenic, and superior mesenteric veins are patent. The spleen, pancreas, and adrenal glands are normal. The main pancreatic duct is nondilated. The kidneys enhance symmetrically. Cortical scarring in the right kidney. Small hypoattenuating lesions within the right kidney are too small to characterize but are favored to represent hemorrhagic/proteinaceous cysts. 717 There is no hydronephrosis or obstructive nephrolithiasis. The urinary bladder is partially decompressed. 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 The prostate is normal. There is no ascites or pneumoperitoneum. The stomach, duodenum, and small bowel are unremarkable. There is no bowel wall thickening or obstruction. Postsurgical changes of ileocolonic anastomosis in the right lower quadrant. Body wall edema. Diffuse muscular atrophy. Bilateral hip joints with exuberant heterotopic ossification formation. Cutaneous tract extending from bilateral gluteal regions to bilateral underlying initial tuberosities with progressive erosive changes of the initial tuberosities, right greater than left, concerning for active osteomyelitis. There is a new phlegmonous collection in the subcutaneous tissues of the back posterior to the sacrum which measures approximately 4.6 x 3.19 (series 2, image 160) with progressive sacral osseous destruction and cutaneous tract. There are multiple prominent lymph nodes along bilateral iliac chains and inguinal regions, most likely reactive. The course and caliber of the abdominal aorta is normal. Inferior vena cava filter in place. IMPRESSION: 1. Cutaneous tract extending from bilateral gluteal regions to bilateral underlying ischial tuberosities with progressive erosive changes of the initial tuberosities, right greater than left, concerning for acute osteomyelitis. 2. There is a new phlegmonous collection in the subcutaneous tissues of the back posterior to the sacrum with progressive sacral osseous destruction and cutaneous tract concerning for acute osteomyelitis. 3. Postsurgical change related to prior Mitrofanoff procedure. 4. Lymphadenopathy and bilateral iliac chains and inguinal regions, most likely reactive. Recommend attention on follow-up. Dictated by: Micaela aMrlow MD, PhD. The radiology attending physician has personally reviewed this study, and had reviewed and/or edited this written report and agrees with it. Electronically signed by: Cipriano Vergara M.D. us Adelina Galvan MD IMG CT PROCEDURES Final Result * Sepsis Lactate w/ Reflex (09/27/2024 10:32 PM FRAMER) Sepsis Lactate 1.6 0.7 - 2.0 mmol/L Blood 09/27/2024 10:3 2 PM FRAMER 09/27/2024 10:37 PM FRAMER us Adelina Galvan MD LAB BLOOD ORDERABLES Fi nal Result [facility] Department [place] [address] * Blood culture Blood Peripheral (09/27/2024 10:32 PM FRAMER) Report Final Report: No growth Blood (Peripheral) 09/27/2024 10:32 PM FRAMER 09/27/2024 10:39 PM FRAMER Narrative [facility] - 10/02/2024 7:00 AM FRAMER From a different site than #1. Draw Blood cultures before administration of Antibiotics Collection->Peripheral 1. ?Blood cultures are incubated for 4 days on a continuously monitored blood culture system. The first report of a negative culture is issued within 24 hours of receipt of the specimen in the laboratory. 2. ?Positive culture results are reported as soon as they are detected. 3. ?The most important factor for detection of microbes in the setting of bloodstream infection is the volume of blood submitted for culture. Failure to collect an optimal blood volume can result in false negative blood cultures. For pediatric patients, the recommended blood volume to collect is 1 mL of blood per year of patient age (up to 20 mL) per blood culture set. For adult patients, 20 mL of blood, divided equally between aerobic and anaerobic blood culture bottles, is recommended for each blood culture set. 4. ?For blood cultures with Gram-positive cocci, a rapid molecular test for organism identification may be performed using the S[employer] Gram-Positive Blood Culture Assay. This assay detects microbial DNA in positive blood culture broth via hybridization of target DNA to capture oligonucleotides on a microarray. This assay has been cleared by the [place] Food and Drug Administration and its performance characteristics have been verified by the [facility]. 5. ?For questions about this culture, contact the Microbiology Laboratory at [phone]. Interpretive data was last revised on 2020. us Adelina Galvan MD LAB MICROBIOLOGY - GENE RAL ORDERABLES Final Result [facility] Department [place] [address] * XR Chest 1 Vw Portable (09/27/2024 10:21 PM FRAMER) Anatomical Region Laterality Modality Body, Chest N/A Computed Radiogr aphy 09/28/2024 12:4 2 AM FRAMER Impressions 09/28/2024 8:01 AM FRAMER Comparison is made to prior chest radiograph dated 04/08/2021. ??Right chest port catheter with tip terminating in the superior cavoatrial junction. ??Small lung volumes. ??There is no pulmonary consolidation, mass, or edema. ??No pleural effusion or pneumothorax. ??The cardiomediastinal silhouette is normal. Dictated by: Micaela Marlow MD, PhD. The radiology attending physician has personally reviewed this study, and had reviewed and/or edited this written report and agrees with it. Electronically signed by: Cipriano Vergara M.D. Narrative 09/28/2024 8:01 AM FRAMER EXAMINATION: 1 view chest radiograph Procedure Note Cipriano Vergara MD - 09/28/2024 EXAMINATION: 1 view chest radiograph IMPRESSION: Comparison is made to prior chest radiograph dated 04/08/2021. Right chest port catheter with tip terminating in the superior cavoatrial junction. Small lung volumes. There is no pulmonary consolidation, mass, or edema. No pleural effusion or pneumothorax. The cardiomediastinal silhouette is normal. Dictated by: Micaela Marlow MD, PhD. The radiology attending physician has personally reviewed this study, and had reviewed and/or edited this written report and agrees with it. Electronically signed by: Cipriano Vergara M.D. us Adelina Galvan MD IMG XR PROCEDURES Final Result * (ABNORMAL) Sepsis Lactate w/ Reflex (09/27/2024 7:59 PM FRAMER) Sepsis Lactate 3.6(H) 0.7 - 2.0 mmol/L Blood 09/27/2024 7:59 PM FRAMER 09/27/2024 8:08 PM FRAMER us Adelina Galvan MD LAB BLOOD ORDERABLES Fi nal Result [facility] Department [place] [address] * eGFR (09/27/2024 7:59 PM FRAMER) eGFR >90 >=60 mL/min/1. 73 m2 Comment: Interpretive Data Reference Interval Normal ?>/= 90 mL/min/1.73m2 Mildly decreased* ? 60 - 89 mL/min/1.73m2 Mildly to moderately decreased ?45 - 59 mL/min/1.73m2 Moderately to severely decreased ??30 - 44 mL/min/1.73m2 Severely decreased ?15 - 29 mL/min/1.73m2 Kidney Failure ?< 15 ??mL/min/1.73m2 *Relative to young adult level Estimated glomerular filtration rate is determined by the 2020 CKD-EPI equation recommended by the National Kid[employer] (A Unifying Approach to GFR Estimation: Recommendations of the NKF-ASK Task Force on Reassessing the Inclusion of Race in Diagnosing Kidney Disease, JASN 2020). The CKD-EPI equation should not be used for patients with unstable renal function and has not been validated in children and those over 70. Current interpretive data was last reviewed 2021. Blood 09/27/2024 7:59 PM FRAMER 09/27/2024 8:29 PM FRAMER Adelina Galvan MD LAB BLOOD ORDERABLES Fi nal Result [facility] Department [place] [address] * (ABNORMAL) Differential, auto (09/27/2024 7:59 PM FRAMER) Neutrophil abs 21.9(H) 1.5 - 6.5 K/cumm Imm gran abs 0.2(H) 0.0 - 0.1 K/cumm [facility] Lymphocyte abs 1.4 0.8 - 3.3 K/cumm [facility] Monocyte abs 0.6 0.2 - 0.8 K/cumm [facility] Eosinophil abs 0.1 0.0 - 0.5 K/cumm [facility] Basophil abs 0.0 0.0 - 0.1 K/cumm [facility] Neutrophil pct 90.5 % [facility] Comment: Interpretive Data Percent cell count reference ranges are not reported, since discordance with absolute values may lead to misinterpretation of CBC data. Current Interpretive Data was last revised on 2018. Imm gran pct 1.0 % [facility] Comment: Interpretive Data Percent cell count reference ranges are not reported, since discordance with absolute values may lead to misinterpretation of CBC data. Current Interpretive Data was last revised on 2018. Lymphocyte pct 5.6 % [facility] Comment: Interpretive Data Percent cell count reference ranges are not reported, since discordance with absolute values may lead to misinterpretation of CBC data. Current Interpretive Data was last revised on 2018. Monocyte pct 2.4 % [facility] Comment: Interpretive Data Percent cell count reference ranges are not reported, since discordance with absolute values may lead to misinterpretation of CBC data. Current Interpretive Data was last revised on 2018. Eosinophil pct 0.3 % [facility] Comment: Interpretive Data Percent cell count reference ranges are not reported, since discordance with absolute values may lead to misinterpretation of CBC data. Current Interpretive Data was last revised on 2018. Basophil pct 0.2 % [facility] Comment: Interpretive Data Percent cell count reference ranges are not reported, since discordance with absolute values may lead to misinterpretation of CBC data. Current Interpretive Data was last revised on 2018. Blood 09/27/2024 7:59 PM FRAMER 09/27/2024 8:26 PM FRAMER us Adelina Galvan MD LAB BLOOD ORDERABLES Fi nal Result [facility] Department [place] [address] * (ABNORMAL) CBC with auto differential (09/27/2024 7:59 PM FRAMER) WBC 24.2(H) 3.8 - 9.9 K/cumm Hgb 10.7(L) 13.0 - 17.5 g/dL [facility] Hct 35.3(L) 38.9 - 50.3 % [facility] Plt 463(H) 150 - 400 K/cumm [facility] MPV 10.9 9.1 - 12.3 fL [facility] RBC 4.83 4.30 - 5.80 M/cumm [facility] MCV 73.1(L) 81.3 - 96.4 fL [facility] MCH 22.2(L) 27.1 - 33.3 pg [facility] MCHC 30.3(L) 32.3 - 35.7 g/dL [facility] RDW CV 17.2(H) 11.1 - 14.9 % [facility] RDW SD 45.4 35.7 - 48.1 fL [facility] NRBC abs 0.00 0.00 - 0.01 K/cumm [facility] Blood 09/27/2024 7:5 9 PM FRAMER 09/27/2024 8:26 PM FRAMER Adelina Galvan MD LAB BLOOD ORDERABLES Fi nal Result [facility] [place] [address] * Blood culture Blood Peripheral (09/27/2024 7:59 PM FRAMER) Report Final Report: No growth Blood (Peripheral) 09/27/2024 7:59 PM FRAMER 09/27/2024 8:11 PM FRAMER Narrative [facility] - 10/02/2024 7:00 AM FRAMER Draw Blood cultures before administration of Antibiotics Collection->Peripheral 1. ?Blood cultures are incubated for 4 days on a continuously monitored blood culture system. The first report of a negative culture is issued within 24 hours of receipt of the specimen in the laboratory. 2. ?Positive culture results are reported as soon as they are detected. 3. ?The most important factor for detection of microbes in the setting of bloodstream infection is the volume of blood submitted for culture. Failure to collect an optimal blood volume can result in false negative blood cultures. For pediatric patients, the recommended blood volume to collect is 1 mL of blood per year of patient age (up to 20 mL) per blood culture set. For adult patients, 20 mL of blood, divided equally between aerobic and anaerobic blood culture bottles, is recommended for each blood culture set. 4. ?For blood cultures with Gram-positive cocci, a rapid molecular test for organism identification may be performed using the [employer] Gram-Positive Blood Culture Assay. This assay detects microbial DNA in positive blood culture broth via hybridization of target DNA to capture oligonucleotides on a microarray. This assay has been cleared by the [place] Food and Drug Administration and its performance characteristics have been verified by the [facility]. 5. ?For questions about this culture, contact the Microbiology Laboratory at [phone]. Interpretive data was last revised on 2020. Adelina Galvan MD LAB MICROBIOLOGY - GENE [facility] ORDERABLES Final Result [facility] Department [place] [address] * (ABNORMAL) Comprehensive metabolic panel (09/27/2024 7:59 PM FRAMER) Sodium 132(L) 135 - 145 mmol/L Potassium, pl 4.3 3.3 - 4.9 mmol/L [facility] Comment:Hemolyzed; Potassium value may be falsely elevated by as much as 0.3-0.5 mmol/L. Suggest redraw and reanalysis. Chloride 96(L) 97 - 110 mmol/L [facility] CO2 21(L) 22 - 32 mmol/L [facility] Anion gap 15 2 - 15 mmol/L [facility] BUN 7 6 - 25 mg/dL [facility] Creatinine 0.74(L) 0.80 - 1.30 mg/dL [facility] Glucose 74 70 - 199 mg/dL [facility] Comment: Interpretive Data Fasting glucose >/= 126 mg/dl is diagnostic for diabetes. ?? Fasting is defined as no caloric intake for at least 8 hours. Fasting glucose between 100 mg/dl to 125 mg/dl is diagnostic of prediabetes. In a patient with classic symptoms of hyperglycemia or hyperglycemic crisis, a random glucose >/= 200 mg/dl is diagnostic for diabetes. In the absence of unequivocal hyperglycemia, results should be confirmed by repeat testing. The classification and Diagnosis of Diabetes Diabetes Care 202; 46: S19-S40. Current interpretive data was last revised 2022. Calcium 9.4 8.5 - 10.3 mg/dL [facility] Bilirubin, total 0.8 0.1 - 1.2 mg/dL [facility] Protein, pl 9.6(H) 6.5 - 8.5 g/dL [facility] Albumin 3.4(L) 3.5 - 5.0 g/dL [facility] Alk phos 143(H) 40 - 130 Units/L [facility] ALT 71(H) 7 - 55 Units/L [facility] AST 47 10 - 50 Units/L [facility] Comment:Hemolyzed; result ma y be falsely elevated Blood 09/27/2024 7:59 PM FRAMER 09/27/2024 8:29 PM FRAMER us Adelina Galvan MD LAB BLOOD ORDERABLES Fi nal Result [facility] [place] [address] from Last 3 Months Additional Health Concerns Infection Onset Date Last 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 Source: [facility] [employer] 11/17/[address] [place] [address] [address] [facility] [place] [address] MEDICARE [employer] [facility] [place] [address] [place] [address] MEDICARE [facility] Address: [address] [address] [place] [address] [employer] Advance Directives For more information, please contact: [phone] * Full Code (Latest Code Status on File) Date Activated Date Inactivated Comments 08/06/2021 1:00 PM 08/11/2021 10:46 PM * Full Code Date Activated Date Inactivated Comments 05/22/2021 1:38 PM 05/28/2021 5:06 AM * Full Code Date Activated Date Inactivated Comments 03/28/2021 5:17 PM 04/12/2021 12:02 AM * Full Code Date Activated Date Inactivated Comments 01/10/2019 10:30 PM 01/24/2019 4:31 PM Care Teams [employer] Relationship Specialty Start Date End Date Rick Carpio MD [address] [address] PCP - General Internal Medicine 10/03/24
--- OUTSIDE RECORDS SUMMARY | 2024-11-11 02:09 | XMS_ITS | Encounter Summary ---
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 moist mucus membranes. Neck: Supple, full ROM, no JVD or lymphadenopathy. Lungs: Clear to auscultation in all lung marrero, unlabored. Trachea midline. Cardiovascular: RRR, normal S1 and S2, no murmurs. GI: Soft, mildly tender to deep palpation , non-distended, bowel sounds positive, no organomegaly Skin: Multiple pressure wounds on the back s/p debridement Extremities: Bilateral BKA with skin changes as above Neurologic: AOx4, CNII-XII intact, T4/T5 paraplegic below nipple. 5/5 Upper extremity strength Psychiatric: Normal affect and mood Laboratory Results No results found for this or any previous visit (from the past 24 hours). Imaging Results XR Abdomen Ap 1 Vw Narrative: EXAMINATION: Abdomen, one view. HISTORY: Abdominal pain. COMPARISON: 08/10/2024 Impression: A single view of the abdomen is submitted for evaluation. Large colorectal stool volume. No evidence of bowel obstruction. Cholecystectomy changes. Left intramedullary femoral nail. 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 Electronically signed by: Carlito Hancock M.D. ASSESSMENT & PLAN Shawn Casey Jr. is a 39 y.o. male with a history of T4/T5 paraplegia with chronic sacral decubitus ulcer and hx osteomyelitis and paraspinal abscesses, NGB with chronic lynch presents for sepsis inthe setting of acute on chronic osteomyelitis vs acute UTI. #Acute Osteomyelitis #Likely Sepsis #Sacral Decubitus Ulcer with necrosis #Chronic L4/L5 paraplegia / muscle wasting Patient presents with progression of chronic sacral dq ulcer with necrotic tissue. Leukocytosis with left shift. Imaging c/f acute on chronic osteomyelitis. Reportedly had at least one blood culture with positive growth at OSH that was untreated per collateral. - ACCS c/s; s/p debridement 09/29 - ID recs: CTX, flagyl EOT 10/13/24 - PRS following, appreciate recs - f/u BCx, tissue Cx - would care, wound consult, Q2h turns - nutrition c/s - SW c/s #Neurogenic Bladder with Chronic Lynch #Urinary Tract Infection #Hx resistant UTI Patient at high risk for resistant organisms given anatomy and chronic lynch. - ID c/s as above - Abx as above - F/u urine Cx #Diarrhea New softer and sometimes watery stools continuing off bowel agents - continue to hold bowel reg - cdiff testing #Hypochloremic Hyponatremia, improved Likely 2/2 dehydration - Trend BMP, optimize hydration #Microcytic Anemia Iron panel with low tsat but low TIBC suggestive of AoCD mixed with GRAZYNA - daily CBC - start oral iron #Chronic Pain Likely in setting of chronic sacral decubitus ulcers - q6 APAP - restart flexeril prn - transition dilaudid to PO 2 Q6H - restart fent patches - PRN ibuprofen #Anxiety - Home aprazolam 0.25 BID, propranolol #Muscle Wasting Likely in the setting of chronic immobilization/paraplegia - nutrition c/s #Nausea #Constipation / Hx neurogenic bowel We discussed that he will likely need additional workup, and this would require coordination of care between multiple services (GI and CRS, as well as eventually PRS) as an outpatient. The patient expressed that he would like to follow with [facility] for this despite his prior workup with [facility]. - PRN zofran - PPI - bowel regimen - GI and CRS referral on discharge #Hx HTN - trend BP, hold home lasix, sterling Code Status: Prior Disposition: pending Best contact: Primary Emergency Contact: Julissa Barron Diet: Adult Diet Regular VTE Prophylaxis: SQ Lovenox Edgar Gonzalez MD Internal Medicine Resident, PGY1 12:53 PM 10/09/24 Cosigned by Yoseph Golden MD at 10/10/2024 4:00 PM GRANITE POLISHER ITE POLISHER ITE POLISHER Associated attestation - Yoseph Golden MD - 10/10/2024 4:00 PM GRANITE POLISHER Attending Documentation I have seen and examined the patient on 10/09/2024. I agree with the findings and plan of care as documented in the resident's/fellow's note. Yoseph Golden MD * Crow Mancini MD - 10/09/2024 7:25 AM CST Plastic Surgery Daily Progress October 09, 2024 7:25 AM Subjective Shawn Casey Jr. is a 39 y.o. male with sacral/bilateral ischial osteo and gluteal wounds. No acute events overnight. VSS on RA. Pending dispo to [facility]. Discussed he can follow up with plastic once he had colostomy surgery and healed from that. Objective MOST RECENT VITALS: Vitals: 10/08/24 1525 10/08/24200010/09/24 0404 10/09/24 0405 BP: 116/76 115/65 107/71 BP Location: Right arm Right arm Patient Position: HOB 30 degrees Lying;HOB 30 degrees Lying;HOB 30 degrees Pulse: 80 92 90 Resp: 16 16 Temp: 36.6 ??C (97.9 ??F) 36.6 ??C (97.9 ??F) 36.7 ??C (98.1 ??F) TempSrc: Oral Oral Oral SpO2: 100% 100% 100% Weight: Height: I&O Intake/Output Summary (Last 24 hours) at 10/09/2024 0725 Last data filed at 10/09/2024 0405 Gross per 24 hour Intake -- Output 1130 ml Net -1130 ml Physical Exam: General: NAD, alert Respiratory: Nonlabored breathing on RA Cardiac: Regular rate Lab/Radiology/Diagnostic Review: LABS: Recent Labs Lab Units 10/08/2441610/07/2431510/06/24 0615 WBC K/cumm 11.0* 9.5 10.9* HEMOGLOBIN g/dL 7.7* 7.4* 7.4* HEMATOCRIT % 25.8* 24.6* 24.4* PLATELETS K/cumm 402* 400 401* Recent Labs Lab Units 10/08/2441610/07/2431510/06/24 0615 SODIUM mmol/L 138 138 141 POTASSIUM PLASMA mmol/L 4.5 4.3 3.7 CHLORIDE mmol/L 105 106 108 CO2 mmol/L 25 26 25 ANIONGAP mmol/L 8 6 8 GLUCOSE mg/dL 86 100 88 BUN SERUM mg/dL 12 12 12 CREATININE mg/dL 0.53* 0.52* 0.58* CALCIUM mg/dL 8.5 8.4* 8.2* ALBUMIN g/dL 3.0* 2.6* 3.0* ALK PHOS Units/L 87 93 88 ALT Units/L 9 9 10 AST Units/L 10 11 5* BILIRUBIN TOTAL mg/dL <0.2 <0.2 0.2 Lab Results Lab Value Date/Time PT 15.9 (H) 10/01/2024221 INR 1.46 (H) 10/01/2024221 IMAGING No results found. Assessment/Plan Shawn Casey Jr. is a 39 y.o. male with sacral/bilateral ischial osteo and gluteal wounds. PLAN: Prior to pressure sore recon, pt would need colostomy. Discussed follow up [facility] or [facility] per pt preference and follow up plastic surgery after colostomy surgery if he continue to want to pursue pressuresore recon [ ] Abx: ceftriaxone, flagyl (per primary) 09/29 Sacral Cx in OR: renetta, mixed micro [ ] Activity/Positioning: pressure offloading mattress, Q2hr turns [ ] Anticoagulation: Lovenox [ ] Consults: Medicine (Primary), ID, ACCS ACCS no diversion this admission as pt established [facility] [ ] Diet: Per primary [ ] Drains: None [ ] Dressing: BID WTD/ABD per primary [ ] Labs/Monitoring: Nutrition labs [ ] Pain: Per primary [ ] Therapy: Per primary [ ] Dispo: No coverage this admission, f/u plastic after colostomy surgery. PRS will sign off. Crow Mancini MD 10/09/2024 If you have questions, please check Amion to find the resident responsible for this patient's care.If uncertain, please call: 7AM - 5PM please call the Plastic Surgery Consult Pager [phone] to be directed to thewyrrect Plastic Surgery resident. Weeknights 5PM - 7AM, All day on Weekends, All day on Holidays please call the Bite Block Maker to find theOn Call Plastic Surgery resident Cosigned by Ina Ernst MD at 10/09/2024 8:57 AM GRANITE POLISHER ITE POLISHER ITE POLISHER ITE POLISHER * Edgar Gonzalez Meng, MD - 10/08/2024 11:01 AM CST Medicine Daily Progress Note Patient: Shawn Casey Jr. : 1985 (39 y.o.) Date of Admission: 09/27/2024 Date of Service: 10/08/24 SUBJECTIVE Interval Events: - NAEON, VSS, AF - Hgb 7.7 stable. - KUB with large stool burden but no obstruction - LTC is able to manage port, but unable to take until 10/09 Patient endorses improvement in symptoms this morning and seen eating well. I discussed that his iron medicine that we started the prior day likely caused some of his nausea and discomfort and that we are glad he is feeling better. Informed him of his XRay results which will be best addressed with further evaluation with GI and CRS as planned. Plan for Today: - stop oral Fe - continue CTX 2g IV q24h; continue PO flagyl - continue flexeril, fentanyl patch; dilaudid 2mg prn, and ibuprofen prn - labs stable, will give lab holiday today - GI/CRS referral on discharge - dispo: LTC on 10/09, EOT 10/13 OBJECTIVE Vitals Most Recent: Vitals: 10/08/24 0412 BP: 127/77 Pulse: 84 Resp: 17 Temp: 36.7 ??C (98.1 ??F) SpO2: 97% 24 Hour Min/Max: Temp Min: 36.6 ??C (97.9 ??F) Max: 37 ??C (98.6 ??F) Pulse Min: 65 Max: 116 BP Min: 121/75 Max: 152/94 Resp Min: 16 Max: 18 SpO2 Min: 97 % Max: 100 % Intake/Output Intake/Output Summary (Last 24 hours) at 10/08/2024 1101 Last data filed at 10/08/2024 0600 Gross per 24 hour Intake -- Output 1025 ml Net -1025 ml Current Medications Scheduled Meds: Scheduled Medications Medication Dose Route Frequency acetaminophen (TYLENOL) tablet 1,000 mg 1,000 mg oral Q6H MARYANN ALPRAZolam (XANAX) tablet 0.25 mg 0.25 mg oral BID cefTRIAXone (ROCEPHIN) 2,000 mg/20 mL in sterile water (premix) 2,000 mg 2,000 mg intravenous Q24H MARYANN enoxaparin (LOVENOX) syringe 40 mg 40 mg subcutaneous Q12H MARYANN fentaNYL (DURAGESIC) 75 mcg/hr patch 72 hour 1 patch 1 patch transdermal Q72H [Held by Provider] ferrous sulfate tablet 325 mg 65 mg of elemental iron oral Daily with evening meal folic acid (FOLVITE) tablet 1 mg 1 mg oral Daily gabapentin (NEURONTIN) capsule 300 mg 300 mg oral Nightly metroNIDAZOLE (FLAGYL) tablet 500 mg 500 mg oral BID pantoprazole DR (PROTONIX) extended release tablet 40 mg 40 mg oral BID AC (bkfst, dinner) propranoloL (INDERAL) tablet 40 mg 40 mg oral BID senna-docusate (PERICOLACE) 8.6-50 mg per tablet 1 tablet 1 tablet oral BID Continuous Meds: Current Facility-Administered Medications Medication Dose Route Frequency Last Admin PRN Meds: PRN Medications Medication Dose Route Frequency Last Admin benzocaine-menthoL (CHLORASEPTIC) lozenge 1 lozenge 1 lozenge mouth/throat Q2H PRN cyclobenzaprine (FLEXERIL) tablet 5 mg 5 mg oral TID PRN 5 mg at 10/06/24 5367 heparin 100 unit/mL injection 100 Units 1 mL intra-catheter Q8H PRN 100 Units at 10/07/241945 HYDROmorphone (DILAUDID) tablet 2 mg 2 mg oral Q6H PRN 2 mg at 10/07/242135 ibuprofen (ADVIL,MOTRIN) tablet 400 mg 400 mg oral Q4H PRN 400 mg at 10/06/242008 influenza trivalent [id number] (FLULAVAL,FLUARIX,FLUZONE) 45 mcg (15 mcg x 3)/0.5 mL vaccine (STANDARD age 6 months and up) 0.5 mL 0.5 mL intramuscular During hospitalization ondansetron (ZOFRAN) injection 4 mg 4 mg intravenous Q4H PRN 4 mg at 10/07/24 1342 polyethylene glycol (MIRALAX) packet 17 g 17 g oral Daily PRN sodium chloride 0.9% flush 15 mL 15 mL intra-catheter PRN 15 mL at 10/06/24 0609 Physical Exam Physical Exam: Constitutional: NAD, laying in bed Eyes: PERRL, EOMI, anicteric. ENT: NCAT. Oropharynx normal, moist mucus membranes. Neck: Supple, full ROM, no JVD or lymphadenopathy. Lungs: Clear to auscultation in all lung marrero, unlabored. Trachea midline. Cardiovascular: RRR, normal S1 and S2, no murmurs. GI: Soft, mildly tender to deep palpation , non-distended, bowel sounds positive, no organomegaly Skin: Multiple pressure wounds on the back s/p debridement Extremities: Bilateral BKA with skin changes as above Neurologic: AOx4, CNII-XII intact, T4/T5 paraplegic below nipple. 5/5 Upper extremity strength Psychiatric: Normal affect and mood Laboratory Results Recent Results (from the past 24 hours) Magnesium Collection Time: 10/08/24 4:17 AM Result Value Ref Range Magnesium 2.0 1.4 - 2.5 mg/dL Phosphorus Collection Time: 10/08/24 4:17 AM Result Value Ref Range Phosphorus, pl 3.8 2.3 - 4.5 mg/dL CBC with auto differential Collection Time: 10/08/24 4:17 AM Result Value Ref Range WBC 11.0 (H) 3.8 - 9.9 K/cumm Hgb 7.7 (L) 13.0 - 17.5 g/dL Hct 25.8 (L) 38.9 - 50.3 % Plt 402 (H) 150 - 400 K/cumm MPV 9.6 9.1 - 12.3 fL RBC 3.46 (L) 4.30 - 5.80 M/cumm MCV 74.6 (L) 81.3 - 96.4 fL MCH 22.3 (L) 27.1 - 33.3 pg MCHC 29.8 (L) 32.3 - 35.7 g/dL RDW CV 20.4 (H) 11.1 - 14.9 % RDW SD 50.9 (H) 35.7 - 48.1 fL NRBC abs 0.00 0.00 - 0.01 K/cumm Differential, auto Collection Time: 10/08/24 4:17 AM Result Value Ref Range Neutrophil abs 7.1 (H) 1.5 - 6.5 K/cumm Imm gran abs 0.2 (H) 0.0 - 0.1 K/cumm Lymphocyte abs 2.7 0.8 - 3.3 K/cumm Monocyte abs 0.7 0.2 - 0.8 K/cumm Eosinophil abs 0.2 0.0 - 0.5 K/cumm Basophil abs 0.0 0.0 - 0.1 K/cumm Neutrophil pct 64.3 % Imm gran pct 1.9 % Lymphocyte pct 25.0 % Monocyte pct 6.5 % Eosinophil pct 1.9 % Basophil pct 0.4 % eGFR Collection Time: 10/08/24 4:17 AM Result Value Ref Range eGFR >90 >=60 mL/min/1.73 m2 Comprehensive metabolic panel Collection Time: 10/08/24 4:17 AM Result Value Ref Range Sodium 138 135 - 145 mmol/L Potassium, pl 4.5 3.3 - 4.9 mmol/L Chloride 105 97 - 110 mmol/L CO2 25 22 - 32 mmol/L Anion gap 8 2 - 15 mmol/L BUN 12 6 - 25 mg/dL Creatinine 0.53 (L) 0.80 - 1.30 mg/dL Glucose 86 70 - 199 mg/dL Calcium 8.5 8.5 - 10.3 mg/dL Bilirubin, total <0.2 0.1 - 1.2 mg/dL Protein, pl 6.8 6.5 - 8.5 g/dL Albumin 3.0 (L) 3.5 - 5.0 g/dL Alk phos 87 40 - 130 Units/L ALT 9 7 - 55 Units/L AST 10 10 - 50 Units/L Imaging Results XR Abdomen Ap 1 Vw Narrative: EXAMINATION: Abdomen, one view. HISTORY: Abdominal pain. COMPARISON: 08/10/2024 Impression: A single view of the abdomen is submitted for evaluation. Large colorectal stool volume. No evidence of bowel obstruction. Cholecystectomy changes. Left intramedullary femoral nail. 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 Electronically signed by: Carlito Hancock M.D. ASSESSMENT & PLAN Shawn Casey Jr. is a 39 y.o. male with a history of T4/T5 paraplegia with chronic sacral decubitus ulcer and hx osteomyelitis and paraspinal abscesses, NGB with chronic lynch presents for sepsis inthe setting of acute on chronic osteomyelitis vs acute UTI. #Acute Osteomyelitis #Likely Sepsis #Sacral Decubitus Ulcer with necrosis #Chronic L4/L5 paraplegia / muscle wasting Patient presents with progression of chronic sacral dq ulcer with necrotic tissue. Leukocytosis with left shift. Imaging c/f acute on chronic osteomyelitis. Reportedly had at least one blood culture with positive growth at OSH that was untreated per collateral. - ACCS c/s; s/p debridement 09/29 - ID recs: CTX, flagyl EOT 10/13/24 - PRS following, appreciate recs - f/u BCx, tissue Cx - would care, wound consult, Q2h turns - nutrition c/s - SW c/s #Neurogenic Bladder with Chronic Lynch #Urinary Tract Infection #Hx resistant UTI Patient at high risk for resistant organisms given anatomy and chronic lynch. - ID c/s as above - Abx as above - F/u urine Cx #Diarrhea New softer and sometimes watery stools continuing off bowel agents - continue to hold bowel reg - cdiff testing #Hypochloremic Hyponatremia, improved Likely 2/2 dehydration - Trend BMP, optimize hydration #Microcytic Anemia Iron panel with low tsat but low TIBC suggestive of AoCD mixed with GRAZYNA - daily CBC - start oral iron #Chronic Pain Likely in setting of chronic sacral decubitus ulcers - q6 APAP - restart flexeril prn - transition dilaudid to PO 2 Q6H - restart fent patches - PRN ibuprofen #Anxiety - Home aprazolam 0.25 BID, propranolol #Muscle Wasting Likely in the setting of chronic immobilization/paraplegia - nutrition c/s #Nausea #Constipation / Hx neurogenic bowel We discussed that he will likely need additional workup, and this would require coordination of care between multiple services (GI and CRS, as well as eventually PRS) as an outpatient. The patient expressed that he would like to follow with [facility] for this despite his prior workup with [facility]. - PRN zofran - PPI - bowel regimen - GI and CRS referral on discharge #Hx HTN - trend BP, hold home lasix, sterling Code Status: Prior Disposition: pending Best contact: Primary Emergency Contact: Julissa Barron, Diet: Adult Diet Regular VTE Prophylaxis: SQ Lovenox Edgar Gonzalez MD Internal Medicine Resident, PGY1 11:01 AM 10/08/24 Cosigned by Yoseph Golden MD at 10/08/2024 12:04 PM GRANITE POLISHER ITE POLISHER ITE POLISHER Associated attestation - Yoseph Golden MD - 10/08/2024 12:04 PM GRANITE POLISHER Attending Documentation I have seen and examined the patient on 10/08/24. I agree with the findings and plan of care as documented in the resident's/fellow's note. Supplementary Attestation Independently interpreted KUB which shows no obstructions. Yoseph Golden MD * Edgar Gonzalez Meng, MD - 10/07/2024 11:19 AM CST Medicine Daily Progress Note Patient: Shawn Casey Jr. : 1985 (39 y.o.) Date of Admission: 09/27/2024 Date of Service: 10/07/24 SUBJECTIVE Interval Events: - NAEON, VSS, AF - BCx, UCx, NGTD; tissue cx with mixed a/an and rare renetta - per ID unlikely to be responsible pathogen - Hgb 7.4 stable. - Cdiff negative, VRE pending - LTC is able to manage port, but unable to take until 10/09 Patient endorses worsening RLQ abdominal discomfort this AM, also associated with nausea. He felt well yesterday but woke up with discomfort, poor appetite. Denies fevers but endorses poor thermoregulation feeling intermittently warm/cold. Continues to have loose stools which have not improved Plan for Today: - KUB today, prn zofran - continue CTX 2g IV q24h; continue PO flagyl, plan for 2w course (EOT 10/13) - continue flexeril, fentanyl patch; dilaudid 2mg prn, and ibuprofen prn - GI/CRS referral on discharge - dispo: LTC on 10/09, EOT 10/13 OBJECTIVE Vitals Most Recent: Vitals: 10/07/24 0805 BP: 122/72 Pulse: 83 Resp: 16 Temp: 36.5 ??C (97.7 ??F) SpO2: 99% 24 Hour Min/Max: Temp Min: 36.2 ??C (97.2 ??F) Max: 37.2 ??C (99 ??F) Pulse Min: 83 Max: 95 BP Min: 104/65 Max: 131/99 Resp Min: 16 Max: 18 SpO2 Min: 95 % Max: 100 % Intake/Output Intake/Output Summary (Last 24 hours) at 10/07/2024 1119 Last data filed at 10/07/2024 0605 Gross per 24 hour Intake 640 ml Output 500 ml Net 140 ml Current Medications Scheduled Meds: Scheduled Medications Medication Dose Route Frequency acetaminophen (TYLENOL) tablet 1,000 mg 1,000 mg oral Q6H MARYANN ALPRAZolam (XANAX) tablet 0.25 mg 0.25 mg oral BID cefTRIAXone (ROCEPHIN) 2,000 mg/20 mL in sterile water (premix) 2,000 mg 2,000 mg intravenous Q24H MARYANN enoxaparin (LOVENOX) syringe 40 mg 40 mg subcutaneous Q12H MARYANN fentaNYL (DURAGESIC) 75 mcg/hr patch 72 hour 1 patch 1 patch transdermal Q72H ferrous sulfate tablet 325 mg 65 mg of elemental iron oral Daily with evening meal folic acid (FOLVITE) tablet 1 mg 1 mg oral Daily gabapentin (NEURONTIN) capsule 300 mg 300 mg oral Nightly metroNIDAZOLE (FLAGYL) tablet 500 mg 500 mg oral BID pantoprazole DR (PROTONIX) extended release tablet 40 mg 40 mg oral BID AC (bkfst, dinner) propranoloL (INDERAL) tablet 40 mg 40 mg oral BID senna-docusate (PERICOLACE) 8.6-50 mg per tablet 1 tablet 1 tablet oral BID Continuous Meds: Current Facility-Administered Medications Medication Dose Route Frequency Last Admin PRN Meds: PRN Medications Medication Dose Route Frequency Last Admin benzocaine-menthoL (CHLORASEPTIC) lozenge 1 lozenge 1 lozenge mouth/throat Q2H PRN cyclobenzaprine (FLEXERIL) tablet 5 mg 5 mg oral TID PRN 5 mg at 10/06/24 2354 heparin 100 unit/mL injection 100 Units 1 mL intra-catheter Q8H PRN 100 Units at 09/29/248 HYDROmorphone (DILAUDID) tablet 2 mg 2 mg oral Q6H PRN 2 mg at 10/06/242353 ibuprofen (ADVIL,MOTRIN) tablet 400 mg 400 mg oral Q4H PRN 400 mg at 10/06/242008 influenza trivalent [id number] (FLULAVAL,FLUARIX,FLUZONE) 45 mcg (15 mcg x 3)/0.5 mL vaccine (STANDARD age 6 months and up) 0.5 mL 0.5 mL intramuscular During hospitalization ondansetron (ZOFRAN) injection 4 mg 4 mg intravenous Q4H PRN 4 mg at 10/01/24 0918 polyethylene glycol (MIRALAX) packet 17 g 17 g oral Daily PRN sodium chloride 0.9% flush 15 mL 15 mL intra-catheter PRN 15 mL at 10/06/24 0609 Physical Exam Physical Exam: Constitutional: NAD, laying in bed Eyes: PERRL, EOMI, anicteric. ENT: NCAT. Oropharynx normal, moist mucus membranes. Neck: Supple, full ROM, no JVD or lymphadenopathy. Lungs: Clear to auscultation in all lung marrero, unlabored. Trachea midline. Cardiovascular: RRR, normal S1 and S2, no murmurs. GI: Soft, mildly tender to deep palpation , non-distended, bowel sounds positive, no organomegaly Skin: Multiple pressure wounds on the back s/p debridement Extremities: Bilateral BKA with skin changes as above Neurologic: AOx4, CNII-XII intact, T4/T5 paraplegic below nipple. 5/5 Upper extremity strength Psychiatric: Normal affect and mood Laboratory Results Recent Results (from the past 24 hours) Comprehensive metabolic panel Collection Time: 10/07/24 3:16 AM Result Value Ref Range Sodium 138 135 - 145 mmol/L Potassium, pl 4.3 3.3 - 4.9 mmol/L Chloride 106 97 - 110 mmol/L CO2 26 22 - 32 mmol/L Anion gap 6 2 - 15 mmol/L BUN 12 6 - 25 mg/dL Creatinine 0.52 (L) 0.80 - 1.30 mg/dL Glucose 100 70 - 199 mg/dL Calcium 8.4 (L) 8.5 - 10.3 mg/dL Bilirubin, total <0.2 0.1 - 1.2 mg/dL Protein, pl 6.9 6.5 - 8.5 g/dL Albumin 2.6 (L) 3.5 - 5.0 g/dL Alk phos 93 40 - 130 Units/L ALT 9 7 - 55 Units/L AST 11 10 - 50 Units/L CBC with auto differential Collection Time: 10/07/24 3:16 AM Result Value Ref Range WBC 9.5 3.8 - 9.9 K/cumm Hgb 7.4 (L) 13.0 - 17.5 g/dL Hct 24.6 (L) 38.9 - 50.3 % Plt 400 150 - 400 K/cumm MPV 9.9 9.1 - 12.3 fL RBC 3.33 (L) 4.30 - 5.80 M/cumm MCV 73.9 (L) 81.3 - 96.4 fL MCH 22.2 (L) 27.1 - 33.3 pg MCHC 30.1 (L) 32.3 - 35.7 g/dL RDW CV 19.8 (H) 11.1 - 14.9 % RDW SD 49.8 (H) 35.7 - 48.1 fL NRBC abs 0.00 0.00 - 0.01 K/cumm Differential, auto Collection Time: 10/07/24 3:16 AM Result Value Ref Range Neutrophil abs 5.6 1.5 - 6.5 K/cumm Imm gran abs 0.3 (H) 0.0 - 0.1 K/cumm Lymphocyte abs 2.6 0.8 - 3.3 K/cumm Monocyte abs 0.8 0.2 - 0.8 K/cumm Eosinophil abs 0.2 0.0 - 0.5 K/cumm Basophil abs 0.0 0.0 - 0.1 K/cumm Neutrophil pct 58.9 % Imm gran pct 2.6 % Lymphocyte pct 27.7 % Monocyte pct 8.4 % Eosinophil pct 2.2 % Basophil pct 0.2 % eGFR Collection Time: 10/07/24 3:16 AM Result Value Ref Range eGFR >90 >=60 mL/min/1.[address] Abdomen Pelvis W Contrast Narrative: EXAMINATION: Computed tomography of the abdomen and [...] normal. Inferior vena cava filter in place. Impression: 1. Cutaneous tract extending from bilateral gluteal [...] Recommend attention on follow-up. Dictated by: Micaela Marlow MD, PhD. The radiology attending physician has personally reviewed this study, and had reviewed and/or edited this written report and agrees with it. Electronically signed by: Cipriano Vergara M.D. XR Chest 1 Vw Portable Narrative: EXAMINATION: 1 view chest radiograph Impression: Comparison is made to prior chest radiograph [...] it. Electronically signed by: Cipriano Vergara M.D. ASSESSMENT & PLAN Shawn Casey Jr. is a 39 y.o. male with a history of T4/T5 paraplegia with chronic sacral decubitus ulcer and hx osteomyelitis and paraspinal abscesses, NGB with chronic lynch presents for sepsis inthe setting of acute on chronic osteomyelitis vs acute UTI. #Acute Osteomyelitis #Likely Sepsis #Sacral Decubitus Ulcer with necrosis #Chronic L4/L5 paraplegia / muscle wasting Patient presents with progression of chronic sacral dq ulcer with necrotic tissue. Leukocytosis with left shift. Imaging c/f acute on chronic osteomyelitis. Reportedly had at least one blood culture with positive growth at OSH that was untreated per collateral. - ACCS c/s; s/p debridement 09/29 - ID recs: CTX, flagyl EOT 10/13/24 - PRS following, appreciate recs - f/u BCx, tissue Cx - would care, wound consult, Q2h turns - nutrition c/s - SW c/s #Neurogenic Bladder with Chronic Lynch #Urinary Tract Infection #Hx resistant UTI Patient at high risk for resistant organisms given anatomy and chronic lynch. - ID c/s as above - Abx as above - F/u urine Cx #Diarrhea New softer and sometimes watery stools continuing off bowel agents - continue to hold bowel reg - cdiff testing #Hypochloremic Hyponatremia, improved Likely 2/2 dehydration - Trend BMP, optimize hydration #Microcytic Anemia Iron panel with low tsat but low TIBC suggestive of AoCD mixed with GRAZYNA - daily CBC - start oral iron #Chronic Pain Likely in setting of chronic sacral decubitus ulcers - q6 APAP - restart flexeril prn - transition dilaudid to PO 2 Q6H - restart fent patches - PRN ibuprofen #Anxiety - Home aprazolam 0.25 BID, propranolol #Muscle Wasting Likely in the setting of chronic immobilization/paraplegia - nutrition c/s #Nausea #Constipation / Hx neurogenic bowel We discussed that he will likely need additional workup, and this would require coordination of care between multiple services (GI and CRS, as well as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 0.74* [id number] mL/min/1.73 m2 >90 < > >90 CALCIUM mg/dL 7.8* < > 8.2* ALBUMIN g/dL -- -- 2.7* MAGNESIUM mg/dL 1.9 -- -- < > = values in this interval not displayed. Recent Labs Lab Units 10/02/2422310/01/24 0222 09/29/24 1617 09/29/24 0548 09/28/24 1354 09/27/24 1959 GLUCOSE mg/dL 121 105 104 90 86 74 No results found for: ALT , AST , BILIRUBIN , ALKPHOS , LIPASE Lab Results Component Value Date HGBA1C 5.8 (H) 09/28/2024 HDL 32 (L) 01/12/2019 LDLCALC 60 01/12/2019 CHOL 110 01/12/2019 TRIG 90 01/12/2019 NURSING ASSESSMENT: Last BM Date: 09/29/24 Bowel Sounds (All Quadrants): Active Mike Scale Score: 12 Skin Integrity: Surgical incision Type of Wound (LDA): Wound Vital Signs @FLOW(5) Temp: 36.3 ??C (97.3 ??F) Pulse: 70 Resp: 18 SpO2: 99 % Intake/Output Summary (Last 24 hours) at 10/02/2024 1747 Last data filed at 10/02/2024 0950 Gross per 24 hour Intake 820 ml Output 780 ml Net 40 ml Adult Malnutrition Scoring Tool (MST) Have You Recently Lost Weight Without Trying?: Unsure Have you been eating poorly because of a decreased appetite?: No Malnutrition Screening Tool (MST) Score: 2 Anthropometrics Weight: 131.5 kg (290 lb) Admission Weight : 131.5 kg Weight Change: 0.00 kg (0.00 lbs) IBW/kg (Calculated) : 64.4 kg Height: 167.6 cm (5' 6 ) BMI Amputation Adjustment: Yes Percent Amputation: Both lower legs with feet Total Amputation Percentage: 11.8 Adjusted BMI: 53.1 Adjusted IBW/k.8 Weight in (lb) to have BMI = 25: 154.6 BMI (Calculated): 46.8 Wt Readings from Last 10 Encounters: 09/28/24 131.5 kg (290 lb) 07/14/22 (!) 136.5 kg (301 lb) 05/02/22 127 kg (279 lb 15.8 oz) 09/11/21 127 kg (280 lb) 08/05/21 122.5 kg (270 lb) 05/22/21 126.4 kg (278 lb 10.6 oz) 05/22/21 124.7 kg (275 lb) 05/13/21 124.7 kg (275 lb) 04/08/21 130.1 kg (286 lb 12.8 oz) 01/10/19 (!) 148.5 kg (327 lb 6.1 oz) ESTIMATED NEEDS: . Dietary Orders (From admission, onward) Start Ordered 10/01/24 1032 Oral Nutrition Supplements ([facility]) Select Supplement: Ensure PLUS High Protein - Zenda; Quantity (# of cans): 1 can All Meals Question Answer Comment ([facility]) Select Supplement: Ensure PLUS High Protein - Zenda Quantity (# of cans): 1 can 10/01/24 1031 09/29/24 1730 Adult Diet Regular Diet effective now Question: ([facility]) Diet type Answer: Regular 09/29/24 1729 Allergies: Reviewed. IMPRESSION: Pt seen at bedside for nutrition screen MST 2, Pt reports that he has decreased appetite due to early satiety. Pt noted that he eats a minimum of 50% at each meal and drinks ensure plus high protein after each meal. Pt stated that he is mindful to have adequate caloric and protein intake to promotewound healing. Pt noted that he was NPO while preparing for a colonoscopy 09/22-09/25, and had a loss of appetite 09/26-09/28. Pt is unsure if he lost weight during this time. Pt denies n/v/d/c at this time. AAIM ([facility]) MALNUTRITION ASSESSMENT: Date of completion: 10/02/24 NUTRITION FOCUSED PHYSICAL EXAM: Completed, no signs of wasting noted. NUTRITION DIAGNOSIS: Nutrition Diagnosis 1: Increased nutrient needs (protein) Related to: Wounds Evidenced by: Patient interview, Physical finding INTERVENTION(S): Summary: Assess for nutrition changes, Medical food supplement, Encouragement Encourage po intake as tolerated at meals, and snacks between meals Encourage continued intake of ensure plus high protein Continue Regular Diet RD Following. GOAL(S): Adequate nutrition to meet estimated needs by next assessment MONITORING/EVALUATION: Appetite, Supplement tolerance, I/O, Labs, Weight changes ITE POLISHER * Edgar Gonzalez Meng, MD - 10/02/2024 11:32 AM CST Medicine Daily Progress Note Patient: Shawn Casey Jr. : 1985 (39 y.o.) Date of Admission: 09/27/2024 Date of Service: 10/02/24 SUBJECTIVE Interval Events: - POD3 after debridement with ACCS - BCx, UCx, NGTD - tissue Cx with mixed organisms including rare renetta -> Fungal cultures NGTD - ID recs CTX q24h, flagyl q12h; dc linezolid/cefe - WBC stable 11-> 10 Mother at bedside with patient this morning. She is hoping to speak with SW about goals for dispo and ongoing concerns about prior LT facility. Patient is doing well this morning, endorsing better appetite and improved nausea control. States dilaudid helps with pain but only lasts 2 hours. He is otherwise comfortable and doing well without new symptoms. Plan for Today: - increase dilaudid frequency to q2h - will clarify Abx regimen with ID: CTX 2g IV q24h; continue flagyl - PRS c/s today re: flap OBJECTIVE Vitals Most Recent: Vitals: 10/02/24 0918 BP: 111/74 Pulse: 70 Resp: 18 Temp: 36.3 ??C (97.3 ??F) SpO2: 99% 24 Hour Min/Max: Temp Min: 36.2 ??C (97.2 ??F) Max: 37.1 ??C (98.8 ??F) Pulse Min: 68 Max: 84 BP Min: 98/67 Max: 123/74 Resp Min: 14 Max: 18 SpO2 Min: 99 % Max: 100 % Intake/Output Intake/Output Summary (Last 24 hours) at 10/02/2024 1132 Last data filed at 10/02/2024 0507 Gross per 24 hour Intake 1140 ml Output 830 ml Net 310 ml Current Medications Scheduled Meds: Scheduled Medications Medication Dose Route Frequency acetaminophen (TYLENOL) tablet 1,000 mg 1,000 mg oral Q6H MARYANN ALPRAZolam (XANAX) tablet 0.25 mg 0.25 mg oral BID cefepime (MAXIPIME) 2,000 mg/20 mL in sterile water (premix) 2,000 mg 2,000 mg intravenous Q8H MARYANN enoxaparin (LOVENOX) syringe 40 mg 40 mg subcutaneous Q12H MARYANN gabapentin (NEURONTIN) capsule 300 mg 300 mg oral Nightly linezolid (ZYVOX) 600 mg/300 mL in dextrose 5% (premix) 600 mg 600 mg intravenous Q12H MARYANN metroNIDAZOLE (FLAGYL) tablet 500 mg 500 mg oral BID pantoprazole DR (PROTONIX) extended release tablet 40 mg 40 mg oral BID AC (bkfst, dinner) propranoloL (INDERAL) tablet 40 mg 40 mg oral BID senna-docusate (PERICOLACE) 8.6-50 mg per tablet 1 tablet 1 tablet oral BID Continuous Meds: Current Facility-Administered Medications Medication Dose Route Frequency Last Admin PRN Meds: PRN Medications Medication Dose Route Frequency Last Admin benzocaine-menthoL (CHLORASEPTIC) lozenge 1 lozenge 1 lozenge mouth/throat Q2H PRN [Held by Provider] cyclobenzaprine (FLEXERIL) tablet 5 mg 5 mg oral TID PRN 5 mg at 09/28/24 1121 heparin 100 unit/mL injection 100 Units 1 mL intra-catheter Q8H PRN 100 Units at 09/29/24 2238 HYDROmorphone (DILAUDID) injection 0.5 mg 0.5 mg intravenous Q3H PRN 0.5 mg at 10/02/24 0931 ibuprofen (ADVIL,MOTRIN) tablet 400 mg 400 mg oral Q4H PRN 400 mg at 10/01/246 influenza trivalent [id number] (FLULAVAL,FLUARIX,FLUZONE) 45 mcg (15 mcg x 3)/0.5 mL vaccine (STANDARD age 6 months and up) 0.5 mL 0.5 mL intramuscular During hospitalization ondansetron (ZOFRAN) injection 4 mg 4 mg intravenous Q4H PRN 4 mg at 10/01/24 0918 polyethylene glycol (MIRALAX) packet 17 g 17 g oral Daily PRN sodium chloride 0.9% flush 15 mL 15 mL intra-catheter PRN 15 mL at 09/29/24 1723 Physical Exam Physical Exam: Constitutional: NAD, laying in bed Eyes: PERRL, EOMI, anicteric. ENT: NCAT. Oropharynx normal, moist mucus membranes. Neck: Supple, full ROM, no JVD or lymphadenopathy. Lungs: Clear to auscultation in all lung marrero, unlabored. Trachea midline. Cardiovascular: RRR, normal S1 and S2, no murmurs. GI: Soft, non-tender, non-distended, bowel sounds positive, no organomegaly. Skin: Multiple pressure wounds on the back s/p debridement Extremities: Bilateral BKA with skin changes as above Neurologic: AOx4, CNII-XII intact, T4/T5 paraplegic below nipple. 5/5 Upper extremity strength Psychiatric: Normal affect and mood. Laboratory Results Recent Results (from the past 24 hours) Basic metabolic panel Collection Time: 10/02/24 2:24 AM Result Value Ref Range Sodium 134 (L) 135 - 145 mmol/L Potassium, pl 3.8 3.3 - 4.9 mmol/L Chloride 107 97 - 110 mmol/L CO2 23 22 - 32 mmol/L Anion gap 4 2 - 15 mmol/L BUN 9 6 - 25 mg/dL Creatinine 0.65 (L) 0.80 - 1.30 mg/dL Glucose 121 70 - 199 mg/dL Calcium 7.8 (L) 8.5 - 10.3 mg/dL CBC with auto differential Collection Time: 10/02/24 2:24 AM Result Value Ref Range WBC 10.1 (H) 3.8 - 9.9 K/cumm Hgb 7.7 (L) 13.0 - 17.5 g/dL Hct 26.3 (L) 38.9 - 50.3 % Plt 419 (H) 150 - 400 K/cumm MPV 10.6 9.1 - 12.3 fL RBC 3.58 (L) 4.30 - 5.80 M/cumm MCV 73.5 (L) 81.3 - 96.4 fL MCH 21.5 (L) 27.1 - 33.3 pg MCHC 29.3 (L) 32.3 - 35.7 g/dL RDW CV 18.0 (H) 11.1 - 14.9 % RDW SD 47.5 35.7 - 48.1 fL NRBC abs 0.00 0.00 - 0.01 K/cumm Differential, auto Collection Time: 10/02/24 2:24 AM Result Value Ref Range Neutrophil abs 6.4 1.5 - 6.5 K/cumm Imm gran abs 0.5 (H) 0.0 - 0.1 K/cumm Lymphocyte abs 2.3 0.8 - 3.3 K/cumm Monocyte abs 0.6 0.2 - 0.8 K/cumm Eosinophil abs 0.2 0.0 - 0.5 K/cumm Basophil abs 0.0 0.0 - 0.1 K/cumm Neutrophil pct 63.5 % Imm gran pct 4.7 % Lymphocyte pct 22.9 % Monocyte pct 6.2 % Eosinophil pct 2.4 % Basophil pct 0.3 % eGFR Collection Time: 10/02/24 2:24 AM Result Value Ref Range eGFR >90 >=60 mL/min/1.73 m2 Magnesium Collection Time: 10/02/24 2:24 AM Result Value Ref Range Magnesium 1.9 1.4 - 2.5 mg/dL Imaging Results CT Abdomen Pelvis W Contrast Narrative: EXAMINATION: Computed tomography of the abdomen and [...] normal. Inferior vena cava filter in place. Impression: 1. Cutaneous tract extending from bilateral gluteal [...] Recommend attention on follow-up. Dictated by: Micaela Marlow MD, PhD. The radiology attending physician has personally reviewed this study, and had reviewed and/or edited this written report and agrees with it. Electronically signed by: Cipriano Vergara M.D. XR Chest 1 Vw Portable Narrative: EXAMINATION: 1 view chest radiograph Impression: Comparison is made to prior chest radiograph [...] it. Electronically signed by: Cipriano Vergara M.D. ASSESSMENT & PLAN Shawn Casey Jr. is a 39 y.o. male with a history of T4/T5 paraplegia with chronic sacral decubitus ulcer and hx osteomyelitis and paraspinal abscesses, NGB with chronic lynch presents for sepsis inthe setting of acute on chronic osteomyelitis vs acute UTI. #Acute Osteomyelitis #Likely Sepsis #Sacral Decubitus Ulcer with necrosis #Chronic L4/L5 paraplegia / muscle wasting Patient presents with progression of chronic sacral dq ulcer with necrotic tissue. Leukocytosis with left shift. Imaging c/f acute on chronic osteomyelitis. Reportedly had at least one blood culture with positive growth at OSH that was untreated per collateral. - ACCS c/s; s/p debridement 09/29 - ID following, appreciate regs - PRS following, appreciate recs - on broad spectrum Abx: linezolid 600 q12h, cefe 2g q8h, po flagyl q12h - f/u BCx, tissue Cx - would care, wound consult, Q2h turns - nutrition c/s - SW c/s #Neurogenic Bladder with Chronic Lynch #Urinary Tract Infection #Hx resistant UTI Patient at high risk for resistant organisms given anatomy and chronic lynch. - ID c/s as above - Abx as above - F/u urine Cx #Hypochloremic Hyponatremia, improved Likely 2/2 dehydration - Trend BMP, optimize hydration #Microcytic Anemia Iron panel with low tsat but low TIBC suggestive of AoCD - daily CBC #Chronic Pain Likely in setting of chronic sacral decubitus ulcers - q6 APAP - hold flexeril dt interaction with Abx - PRN ibuprofen, IV dilaudid 0.5 mg q3h prn #Anxiety - Home aprazolam 0.25 BID, propranolol #Muscle Wasting Likely in the setting of chronic immobilization/paraplegia - nutrition c/s #Nausea #Constipation - PRN zofran - PPI - bowel regimen #Hx HTN - trend BP, hold home lasix, sterling Code Status: Prior Disposition: pending Best contact: Primary Emergency Contact: Julissa Barron, Diet: Adult Diet Regular VTE Prophylaxis: SQ Lovenox PT: pending OT: pending Edgar Gonzalez MD Internal Medicine Resident, PGY3 11:32 AM 10/02/24 Cosigned by Yoseph Golden MD at 10/02/2024 1:41 PM GRANITE POLISHER ITE POLISHER ITE POLISHER Associated attestation - Yoseph Golden MD - 10/02/2024 1:41 PM GRANITE POLISHER Attending Documentation I have seen and examined the patient on 10/02/24. I agree with the findings and plan of care as documented in the resident's/fellow's note. Supplementary Attestation Today, I am treating the patient for sepsis/sacral osteomyelitis which is in severe exacerbation, progression, or experiencing treatment side effects as evidenced by need for consultation of ID and plastic surgery, as described in the note. Discussed management of osteomyelitis with ID who recommended narrowing antibiotics to CTX/flagyl. The patient's diagnosis is significantly impacted by the following social determinants of health: access to healthcare. 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 Acute OT evaluation not warranted.) ITE POLISHER * Edgar Gonzalez Meng, MD - 10/01/2024 6:46 AM CST Medicine Daily Progress Note Patient: Shawn Casey Jr. : 1985 (39 y.o.) Date of Admission: 09/27/2024 Date of Service: 10/01/24 SUBJECTIVE Interval Events: - S/p debridement with ACCS - Switched to cefe/flagyl per ID - BCx, UCx, Tissue Cx NGTD - WBC stable 11.2 -> 9.5 -> 11.1 - Patient endorses significant pain, improved with more frequent IV dilaudid. Endorses some poor POdue to nausea. Otherwise he is doing okay, no SOB, no CP, no abdominal pain. Plan for Today: - continue q3h dilauded - prn zofran - F/u cultures - continue linezolid/cefe/flagyl - PRS c/s Wednesday regarding possible flap OBJECTIVE Vitals Most Recent: Vitals: 10/01/24 0300 BP: 122/70 Pulse: 73 Resp: 18 Temp: 36.3 ??C (97.3 ??F) SpO2: 100% 24 Hour Min/Max: Temp Min: 36.3 ??C (97.3 ??F) Max: 36.8 ??C (98.2 ??F) Pulse Min: 61 Max: 83 BP Min: 114/69 Max: 146/93 Resp Min: 16 Max: 18 SpO2 Min: 100 % Max: 100 % Intake/Output Intake/Output Summary (Last 24 hours) at 10/01/2024 0548 Last data filed at 10/01/2024 0531 Gross per 24 hour Intake 1070 ml Output 1630 ml Net -560 ml Current Medications Scheduled Meds: Scheduled Medications Medication Dose Route Frequency acetaminophen (TYLENOL) tablet 1,000 mg 1,000 mg oral Q6H MARYANN ALPRAZolam (XANAX) tablet 0.25 mg 0.25 mg oral BID cefepime (MAXIPIME) 2,000 mg/20 mL in sterile water (premix) 2,000 mg 2,000 mg intravenous Q8H MARYANN enoxaparin (LOVENOX) syringe 40 mg 40 mg subcutaneous Q12H MARYANN gabapentin (NEURONTIN) capsule 300 mg 300 mg oral Nightly linezolid (ZYVOX) 600 mg/300 mL in dextrose 5% (premix) 600 mg 600 mg intravenous Q12H MARYANN metroNIDAZOLE (FLAGYL) tablet 500 mg 500 mg oral BID pantoprazole DR (PROTONIX) extended release tablet 40 mg 40 mg oral BID AC (bkfst, dinner) propranoloL (INDERAL) tablet 40 mg 40 mg oral BID senna-docusate (PERICOLACE) 8.6-50 mg per tablet 1 tablet 1 tablet oral BID Continuous Meds: Current Facility-Administered Medications Medication Dose Route Frequency Last Admin PRN Meds: PRN Medications Medication Dose Route Frequency Last Admin benzocaine-menthoL (CHLORASEPTIC) lozenge 1 lozenge 1 lozenge mouth/throat Q2H PRN [Held by Provider] cyclobenzaprine (FLEXERIL) tablet 5 mg 5 mg oral TID PRN 5 mg at 09/28/24 1121 heparin 100 unit/mL injection 100 Units 1 mL intra-catheter Q8H PRN 100 Units at 09/29/24 2238 HYDROmorphone (DILAUDID) injection 0.5 mg 0.5 mg intravenous Q3H PRN 0.5 mg at 10/01/24 0509 ibuprofen (ADVIL,MOTRIN) tablet 400 mg 400 mg oral Q4H PRN influenza trivalent [id number] (FLULAVAL,FLUARIX,FLUZONE) 45 mcg (15 mcg x 3)/0.5 mL vaccine (STANDARD age 6 months and up) 0.5 mL 0.5 mL intramuscular During hospitalization polyethylene glycol (MIRALAX) packet 17 g 17 g oral Daily PRN sodium chloride 0.9% flush 15 mL 15 mL intra-catheter PRN 15 mL at 09/29/24 1723 Physical Exam Physical Exam: Constitutional: NAD, laying in bed Eyes: PERRL, EOMI, anicteric. ENT: NCAT. Oropharynx normal, moist mucus membranes. Neck: Supple, full ROM, no JVD or lymphadenopathy. Lungs: Clear to auscultation in all lung marrero, unlabored. Trachea midline. Cardiovascular: RRR, normal S1 and S2, no murmurs. GI: Soft, non-tender, non-distended, bowel sounds positive, no organomegaly. Skin: Multiple pressure wounds on the back s/p debridement Extremities: Bilateral BKA with skin changes as above Neurologic: AOx4, CNII-XII intact, T4/T5 paraplegic below nipple. 5/5 Upper extremity strength Psychiatric: Normal affect and mood. Laboratory Results Recent Results (from the past 24 hours) aPTT Collection Time: 10/01/24 2:22 AM Result Value Ref Range aPTT 39 (H) 28 - 38 sec Basic metabolic panel Collection Time: 10/01/24 2:22 AM Result Value Ref Range Sodium 136 135 - 145 mmol/L Potassium, pl 3.4 3.3 - 4.9 mmol/L Chloride 105 97 - 110 mmol/L CO2 23 22 - 32 mmol/L Anion gap 8 2 - 15 mmol/L BUN 8 6 - 25 mg/dL Creatinine 0.70 (L) 0.80 - 1.30 mg/dL Glucose 105 70 - 199 mg/dL Calcium 8.0 (L) 8.5 - 10.3 mg/dL CBC with auto differential Collection Time: 10/01/24 2:22 AM Result Value Ref Range WBC 11.1 (H) 3.8 - 9.9 K/cumm Hgb 8.0 (L) 13.0 - 17.5 g/dL Hct 26.7 (L) 38.9 - 50.3 % Plt 434 (H) 150 - 400 K/cumm MPV 10.7 9.1 - 12.3 fL RBC 3.65 (L) 4.30 - 5.80 M/cumm MCV 73.2 (L) 81.3 - 96.4 fL MCH 21.9 (L) 27.1 - 33.3 pg MCHC 30.0 (L) 32.3 - 35.7 g/dL RDW CV 17.4 (H) 11.1 - 14.9 % RDW SD 46.3 35.7 - 48.1 fL NRBC abs 0.00 0.00 - 0.01 K/cumm Protime-INR Collection Time: 10/01/24 2:22 AM Result Value Ref Range PT 15.9 (H) 9.7 - 13.0 sec INR 1.46 (H) 0.90 - 1.20 Differential, auto Collection Time: 10/01/24 2:22 AM Result Value Ref Range Neutrophil abs 7.5 (H) 1.5 - 6.5 K/cumm Imm gran abs 0.5 (H) 0.0 - 0.1 K/cumm Lymphocyte abs 2.1 0.8 - 3.3 K/cumm Monocyte abs 0.8 0.2 - 0.8 K/cumm Eosinophil abs 0.2 0.0 - 0.5 K/cumm Basophil abs 0.0 0.0 - 0.1 K/cumm Neutrophil pct 67.6 % Imm gran pct 4.1 % Lymphocyte pct 19.2 % Monocyte pct 7.0 % Eosinophil pct 1.8 % Basophil pct 0.3 % eGFR Collection Time: 10/01/24 2:22 AM Result Value Ref Range eGFR >90 >=60 mL/min/1.[address] Abdomen Pelvis W Contrast Narrative: EXAMINATION: Computed tomography of the abdomen and [...] normal. Inferior vena cava filter in place. Impression: 1. Cutaneous tract extending from bilateral gluteal [...] Recommend attention on follow-up. Dictated by: Micaela Marlow MD, PhD. The radiology attending physician has personally reviewed this study, and had reviewed and/or edited this written report and agrees with it. Electronically signed by: Cipriano Vergara M.D. XR Chest 1 Vw Portable Narrative: EXAMINATION: 1 view chest radiograph Impression: Comparison is made to prior chest radiograph [...] it. Electronically signed by: Cipriano Vergara M.D. ASSESSMENT & PLAN Shawn Casey Jr. is a 39 y.o. male with a history of T4/T5 paraplegia with chronic sacral decubitus ulcer and hx osteomyelitis and paraspinal abscesses, NGB with chronic lynch presents for sepsis inthe setting of acute on chronic osteomyelitis vs acute UTI. #Acute Osteomyelitis #Likely Sepsis #Sacral Decubitus Ulcer with necrosis #Chronic L4/L5 paraplegia / muscle wasting Patient presents with progression of chronic sacral dq ulcer with necrotic tissue. Leukocytosis with left shift. Imaging c/f acute on chronic osteomyelitis. Reportedly had at least one blood culture with positive growth at OSH that was untreated per collateral. - ACCS c/s; s/p debridement 09/29 - ID following - c/s PRS on 10/02 - on broad spectrum Abx: linezolid 600 q12h, cefe 2g q8h, po flagyl q12h - f/u BCx, tissue Cx - would care, wound consult, Q2h turns - nutrition c/s - SW c/s #Neurogenic Bladder with Chronic Lynch #Urinary Tract Infection #Hx resistant UTI Patient at high risk for resistant organisms given anatomy and chronic lynch. - ID c/s as above - Abx as above - F/u urine Cx #Hypochloremic Hyponatremia, improved Likely 2/2 dehydration - Trend BMP, optimize hydration #Microcytic Anemia Iron panel with low tsat but low TIBC suggestive of AoCD - daily CBC #Chronic Pain Likely in setting of chronic sacral decubitus ulcers - q6 APAP - hold flexeril dt interaction with Abx - PRN ibuprofen, IV dilaudid 0.5 mg q3h prn #Anxiety - Home aprazolam 0.25 BID, propranolol #Muscle Wasting Likely in the setting of chronic immobilization/paraplegia - nutrition c/s #Nausea #Constipation - PRN zofran - PPI - bowel regimen #Hx HTN - trend BP, hold home lasix, sterling Code Status: Prior Disposition: pending Best contact: Primary Emergency Contact: AndersonJulissa, Diet: Adult Diet Regular VTE Prophylaxis: SQ Lovenox PT: pending OT: pending Edgar Gonzalez MD Internal Medicine Resident, PGY3 5:48 AM 10/01/24 Cosigned by Kathia Ruiz MD at 10/01/2024 4:43 PM GRANITE POLISHER ITE POLISHER ITE POLISHER Associated attestation - Kathia Ruiz MD - 10/01/2024 4:43 PM GRANITE POLISHER Attending Documentation I have seen and examined the patient on 10/01/24. I agree with the findings and plan of care as documented in the resident's/fellow's note. and as discussed with the resident/fellow. Tissue culture from OR two days ago w/ mixed aerobes, anaerobes, and renetta. On empiric linezolid,cefe, flagyl. Appreciate ID input into antibiotics plan. Tomorrow will need to collaborate with case management and social work about discharge planning as patient and family are unhappy about his long-term care facility. Supplementary Attestation Today, I am treating the patient for sacral/pelvic osteomyelitis and infected wounds which is in moderate exacerbation, progression, or experiencing treatment side effects as evidenced by above and, as described in the note. The patient is being intensively monitored for drug toxicity from linezolid by checking cbc daily. Kathia Ruiz MD * Concepción Aguilar MD - 09/30/2024 12:37 PM CST Medicine Daily Progress Note Patient: Shawn Casey Jr. : 1985 (39 y.o.) Date of Admission: 09/27/2024 Date of Service: 09/30/24 SUBJECTIVE Interval Events: - S/p debridement with ACCS - Switched to cefe/flagyl per ID - BCx, UCx NGTD - WBC downtrending 11.2 -> 9.5 - Patient endorses significant pain, improved with the IV dilaudid but the pain medication does notlast the full 4 hours until the next dose. Otherwise he is doing okay, no SOB, no CP, no abdominal pain. Last BM yesterday after surgical debridement. Plan for Today: - Increase IV prn pain medication to q3h - F/u cultures - continue linezolid/cefe/flagyl - PRS c/s Wednesday regarding possible flap OBJECTIVE Vitals Most Recent: Vitals: 09/30/24 1140 BP: 117/61 Pulse: 78 Resp: 16 Temp: 36.6 ??C (97.9 ??F) SpO2: 100% 24 Hour Min/Max: Temp Min: 36.3 ??C (97.3 ??F) Max: 36.8 ??C (98.2 ??F) Pulse Min: 61 Max: 92 BP Min: 102/50 Max: 131/84 Resp Min: 10 Max: 20 SpO2 Min: 98 % Max: 100 % Intake/Output Intake/Output Summary (Last 24 hours) at 09/30/2024 1329 Last data filed at 09/30/2024 0827 Gross per 24 hour Intake 515 ml Output 930 ml Net -415 ml Current Medications Scheduled Meds: Scheduled Medications Medication Dose Route Frequency acetaminophen (TYLENOL) tablet 1,000 mg 1,000 mg oral Q6H MARYANN ALPRAZolam (XANAX) tablet 0.25 mg 0.25 mg oral BID cefepime (MAXIPIME) 2,000 mg/20 mL in sterile water (premix) 2,000 mg 2,000 mg intravenous Q8H MARYANN enoxaparin (LOVENOX) syringe 40 mg 40 mg subcutaneous Q12H MARYANN gabapentin (NEURONTIN) capsule 300 mg 300 mg oral Nightly linezolid (ZYVOX) 600 mg/300 mL in dextrose 5% (premix) 600 mg 600 mg intravenous Q12H MARYANN metroNIDAZOLE (FLAGYL) tablet 500 mg 500 mg oral BID pantoprazole DR (PROTONIX) extended release tablet 40 mg 40 mg oral BID AC (bkfst, dinner) propranoloL (INDERAL) tablet 40 mg 40 mg oral BID senna-docusate (PERICOLACE) 8.6-50 mg per tablet 1 tablet 1 tablet oral BID Continuous Meds: Current Facility-Administered Medications Medication Dose Route Frequency Last Admin PRN Meds: PRN Medications Medication Dose Route Frequency Last Admin benzocaine-menthoL (CHLORASEPTIC) lozenge 1 lozenge 1 lozenge mouth/throat Q2H PRN [Held by Provider] cyclobenzaprine (FLEXERIL) tablet 5 mg 5 mg oral TID PRN 5 mg at 09/28/24 1121 heparin 100 unit/mL injection 100 Units 1 mL intra-catheter Q8H PRN 100 Units at 09/29/24 2238 HYDROmorphone (DILAUDID) injection 0.5 mg 0.5 mg intravenous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 Goals for the Shift: monitor vitals Nursing Home Patient Centered Goal for Treatment: pt dc back to senior care with repaired and healingwound with minimal pain Summary: Problem: Lack of Knowledge Goal: Ability to develop a pain control plan will improve Outcome: Progressing ITE POLISHER * Plan of Care - Kaitlynn Amaya RN - 10/05/2024 5:53 AM CST Goals: Clinical Goals for the Shift: remain free from falls; pain management; maintain vital signs and labvalues within normal limits; improved skin integrity; no signs or symptoms of infection\ Out And Out Cigar Maker Hand Patient Centered Goal for Treatment: pt dc back to senior care with repaired and healingwound with minimal pain Summary: Problem: Lack of Knowledge Goal: Ability to develop a pain control plan will improve Outcome: Progressing Problem: Medication Goal: Satisfaction with pain management medication regimen will improve Outcome: Progressing Problem: Sensory Goal: Ability to identify factors that increase pain levels will improve while working to decrease the patient's pain levels Outcome: Progressing Problem: Coping Goal: Ability to cope will improve Outcome: Progressing Problem: Health Behavior Goal: Identification of resources available to assist in meeting health care needs will improve Outcome: Progressing Problem: Discharge Planning Goal: Understanding discharge needs will improve Outcome: Progressing Problem: Skin Integrity Impairment Risk Goal: Mobility will improve Outcome: Progressing Goal: Understanding of ways to prevent future skin breakdown will improve Outcome: Progressing Goal: Nutritional status will improve Outcome: Progressing Goal: Risk for impaired skin integrity will decrease Outcome: Progressing Problem: Isolation Lack of Knowledge Goal: Knowledge of risk factors and measures for prevention of condition will improve Outcome: Progressing Problem: Isolation Physical Regulation Goal: Isolation- Spread of further infection will be prevented Outcome: Progressing Goal: Isolation- Complications related to the disease process, condition, or treatment will be avoided or minimized. Outcome: Progressing Problem: Fall Risk Goal: Ability to state ways to decrease the risk of falls will improve Outcome: Progressing Goal: Will remain free from falls Outcome: Progressing Goal: Will remain free from injury from falls Outcome: Progressing ITE POLISHER * Plan of Care - Siria Hartman RN - 10/04/2024 5:55 PM CST Goals: Clinical Goals for the Shift: VSS; Pain management; Safety and comfort Nursing Home Patient Centered Goal for Treatment: pt dc back to senior care with repaired and healingwound with minimal pain Summary: Problem: Lack of Knowledge Goal: Ability to develop a pain control plan will improve Outcome: Progressing Problem: Medication Goal: Satisfaction with pain management medication regimen will improve Outcome: Progressing Problem: Sensory Goal: Ability to identify factors that increase pain levels will improve while working to decrease the patient's pain levels Outcome: Progressing Problem: Coping Goal: Ability to cope will improve Outcome: Progressing Problem: Health Behavior Goal: Identification of resources available to assist in meeting health care needs will improve Outcome: Progressing Problem: Discharge Planning Goal: Understanding discharge needs will improve Outcome: Progressing Problem: Skin Integrity Impairment Risk Goal: Mobility will improve Outcome: Progressing Goal: Understanding of ways to prevent future skin breakdown will improve Outcome: Progressing Goal: Nutritional status will improve Outcome: Progressing Goal: Risk for impaired skin integrity will decrease Outcome: Progressing Problem: Isolation Lack of Knowledge Goal: Knowledge of risk factors and measures for prevention of condition will improve Outcome: Progressing Problem: Isolation Physical Regulation Goal: Isolation- Spread of further infection will be prevented Outcome: Progressing Goal: Isolation- Complications related to the disease process, condition, or treatment will be avoided or minimized. Outcome: Progressing Problem: Fall Risk Goal: Ability to state ways to decrease the risk of falls will improve Outcome: Progressing Goal: Will remain free from falls Outcome: Progressing Goal: Will remain free from injury from falls Outcome: Progressing ITE POLISHER * Significant Event - Cam Marquez MD - 10/04/2024 12:54 PM GRANITE POLISHER [facility]S was re-engaged for possible diverting colostomy. Per chart check, patient is currently being managed by GI for elucidation for etiology of constipation, incontinence, and neurogenic bowel. He's had a colonoscopy in 2019 with reports few polyps but no endoscopy report is in place. He was supposed to have a colonoscopy on 09/25 but it was aborted due to significant amount of stool in therectum despite bowel prep. GI at [facility] has treated him with Linzess, Lactulose, Dulcolax, and some fleet enemas as we. While he hasn't seen a surgeon yet for consideration of a diverting colostomy, GI notes indicate a referral to colorectal surgery has been made. Given that there is significant constipation and history of neurogenic bowel, patient needs more work up before consideration of diverting colostomy. He's been managed by [facility] GI, so patient should continue receiving work up and care from them. If patient would like to be seen by [facility] GI and colorectal surgery, arrangements can be made. Cam Marquez MD [facility]S Consult Service ITE POLISHER * Plan of Care - Suzan Hutchison RN - 10/04/2024 3:33 AM CST Problem: Lack of Knowledge Goal: Ability to develop a pain control plan will improve Outcome: Ongoing Problem: Medication Goal: Satisfaction with pain management medication regimen will improve Outcome: Ongoing Problem: Sensory Goal: Ability to identify factors that increase pain levels will improve while working to decrease the patient's pain levels Outcome: Ongoing Problem: Coping Goal: Ability to cope will improve Outcome: Ongoing Problem: Health Behavior Goal: Identification of resources available to assist in meeting health care needs will improve Outcome: Ongoing Problem: Discharge Planning Goal: Understanding discharge needs will improve Outcome: Ongoing Problem: Skin Integrity Impairment Risk Goal: Mobility will improve Outcome: Ongoing Goal: Understanding of ways to prevent future skin breakdown will improve Outcome: Ongoing Goal: Nutritional status will improve Outcome: Ongoing Goal: Risk for impaired skin integrity will decrease Outcome: Ongoing Problem: Isolation Lack of Knowledge Goal: Knowledge of risk factors and measures for prevention of condition will improve Outcome: Ongoing Problem: Isolation Physical Regulation Goal: Isolation- Spread of further infection will be prevented Outcome: Ongoing Goal: Isolation- Complications related to the disease process, condition, or treatment will be avoided or minimized. Outcome: Ongoing Problem: Fall Risk Goal: Ability to state ways to decrease the risk of falls will improve Outcome: Ongoing Goal: Will remain free from falls Outcome: Ongoing Goal: Will remain free from injury from falls Outcome: Ongoing Goals: Clinical Goals for the Shift: VSS, pain control, monitor I/O's, safety precautions, straight cath as needed, wound care, and rest Nursing Home Patient Centered Goal for Treatment: pt dc back to senior care with repaired and healingwound with minimal pain Summary: VSS and patient remains A&Ox4 while on room air. Wound care/dressing change done as ordered. Scheduled and prn pain medications given. Pt had a BM this shift and continues to cath himself. Safety precautions maintained and rest promoted. Call light is within reach and rest promoted. ITE POLISHER * Plan of Care - Ana M Jang RN - 10/03/2024 5:59 PM CST Problem: Lack of Knowledge Goal: Ability to develop a pain control plan will improve Outcome: Progressing Problem: Medication Goal: Satisfaction with pain management medication regimen will improve Outcome: Progressing Problem: Health Behavior Goal: Identification of resources available to assist in meeting health care needs will improve Outcome: Progressing Problem: Discharge Planning Goal: Understanding discharge needs will improve Outcome: Progressing Problem: Skin Integrity Impairment Risk Goal: Nutritional status will improve Outcome: Progressing Goals: Clinical Goals for the Shift: vital signs, medication, comfort, safety, wound care, pain control Out And Out Cigar Maker Hand Patient Centered Goal for Treatment: pt dc back to senior care with repaired and healingwound with minimal pain Summary: Patient maintained stable vital signs, received ordered medication, had wound care completed, and remained free from falls. ITE POLISHER * Initial Assessments - Madison Viramontes RN - 10/03/2024 3:17 PM GRANITE POLISHER CM Initial Assessment Interview Note Information Obtained From: Patient (at bedside) (10/03/241511) Admission Source: SNF ([facility]) Plan Includes: 39 y.o. male who presents with weakness in the setting of worsening sacral decubituswound Primary Source of Transportation: Does the patient need discharge transport arranged?: Yes Has discharge transport been arranged?: No (10/03/241511) Health Insurance Coverage: Medicare and Medicaid Prescription Coverage: yes Pharmacy: [facility] - [place], [place] - [address] [id number] [address] Primary Care Provider: Rick Carpio MD Prior to Admission: Functional Status: Moderate assist with ADLs Primary Caregiver: Facility staff Support System: Parent Home Care Services: No Outpatient Services: No Durable Medical Equipment: Other (Comment), Lynda lift, Specialty bed, Motorized wheelchair DME Name and Contact Number: DME from SNF Living Arrangements: [facility] Type of Residence: [facility] Does patient wish to return to care facility?: No, wishes for other placement Type of Bed: No, wishes for other placement Medication management: Needs Assistance (Comment) ([facility] staff manages medications) (10/03/241511) Potential discharge needs include: Home Health: None (10/03/241511) OP Services: n/a Dialysis: n/a Behavioral Health Services: Behavioral Health Services: No (10/03/241511) Anticipated Level of Care: Anticipated discharge level of care: [facility] ([facility] care) Pt/Family agrees with Anticipated Level of Care: Yes (10/03/241511) Patient expects to be Discharged to: [facility] ([facility] care), (10/03/241511) Additional Information: .Address and phone number verified with patient. Pt lives in a [facility] senior care. Prior to hospitalization pt was mostly dependent with activities of daily living and care. Patient has adequate family support which includes parents. CM to arrange transportation at discharge. Pt does not want to return to senior care. CM proactively sent referrals via [employer] and sent pt's mother a list of facilities per his request. Notified pt's mother that it is the responsibility of the nursing facility to find different placement as patient cannot remain in hospital while CM attempts to find a different [facility] care facility. [facility] noaccepting facilities. Pt's mother verbalized understanding. Awaiting acceptance. Role of CM explained. No further needs at this time. Patient's Identified Problem/Goal Problem: Ensure acute medical needs are met and that patient has a safe discharge plan. Goal: Secure a discharge plan that patient/family are agreeable with and ensure patient has continuum of care. Case management will follow for discharge planning and send referrals as needed. Goals include: To assure continuity of care, To maximize coping skills, To assure patient is in a safe environment and To assure access to community resources. Plan includes: 1. Collaboration with Patient, Provider, Direct Care Nurse, Program Strategist, and other members of theHealth Care Team to assure needed interventions completed. 2. Return patient to optimal level of self-care post discharge. 3. Billet Sawyer will follow for Discharge Planning - interventions as needed 4. Anticipated level of care at discharge 5. Planned Discharge Disposition Madison Viramontes RN ITE POLISHER ITE POLISHER * Consults, Subsequent - Derick Camargo MD - 10/03/2024 1:10 PM GRANITE POLISHER Infectious Disease Subsequent Consult Note Infectious Disease Team: General 3 Contact Information: Please see EPIC Treatment Team listing for up-to-date contact information. Subjective Chief complaint of Fatigue, foul smelling discharge from wound Interval History: Feeling better after the debridement Objective Anti-infectives (From admission, onward) Start Dose/Rate Route Frequency Ordered Stop 10/02/241999 cefTRIAXone (ROCEPHIN) 2,000 mg/20 mL in sterile water (premix) 2,000 mg 2,000 mg 240 mL/hr over 5 Minutes intravenous Every 24 hours scheduled 10/02/24 1136 09/28/24 2100 metroNIDAZOLE (FLAGYL) tablet 500 mg 500 mg oral 2 times daily 09/28/24 1630 Vitals: 24hr Min/Max: Temp Min: 36.4 ??C (97.5 ??F) Max: 36.6 ??C (97.9 ??F) Pulse Min: 82 Max: 103 BP Min: 121/68 Max: 136/68 Resp Min: 16 Max: 18 SpO2 Min: 100 % Max: 100 % Most Recent : Vitals: 10/03/24 0829 BP: 121/68 Pulse: 82 Resp: 16 Temp: 36.4 ??C (97.5 ??F) SpO2: 100% I/O last 2 completed shifts: In: 750 [P.O.:750] Out: 900 [Urine:900] Active LDAs: Peripheral IV 09/27/24 20 G Posterior;Right Hand (Active) Number of days: 6 Single Lumen Implantable Port Chest Right (Active) Number of days: Physical Exam: Physical Exam Constitutional: Comments: Obese HENT: Mouth/Throat: Mouth: Mucous membranes are moist. Cardiovascular: Rate and Rhythm: Normal rate. Abdominal: General: Abdomen is flat. Palpations: Abdomen is soft. Comments: RUQ tenderness Musculoskeletal: Comments: B/l BKA, stumps dont have visible wound Skin: Comments: Extensive b/l buttock and post thigh wound Neurological: Mental Status: He is alert. Lab/Radiology/Diagnostic Review: Lab Results Component Value Date MICROBIOLOGY Final Report: No growth 09/29/2024 MICROBIOLOGY Preliminary Report: No growth of fungus to date 09/29/2024 MICROBIOLOGY (.) 09/29/2024 Final Report: Few Mixed aerobic and anaerobic microorganisms Includes the following: Rare Renetta albicans MICROBIOLOGY Preliminary Report: Yeast to be identified (.) 09/29/2024 MICROBIOLOGY 09/28/2024 Final Report: Less than 10,000 colonies/mL (clinically insignificant growth based on current clinical standards) Radiology results were reviewed. No results found. No results found. Assessment/Plan * Pressure injury of buttock, unstageable, unspecified laterality (HCC) Assessment & Plan 39 y.o. male with PMH including: paraplegia [...] be pathogenic, single cx) and mixed a/an. Patient will be having a diversion colostomy later on at [facility], PRS might plan for flap surgery then.No plans for flap surgery at the moment, Hence will plan on treating for a 2 week short duration course from the day of his debridement for SSTI. Recommendations: - 2 weeks of Ceftriaxone 2g IV q24h and metronidazole 500mg PO q12h from -CBC with diff, CMP weekly. - EOT will be on 10/13/2024 - After completing the antibiotic treatment would consider re-evaluating the need of port in his chest, would defer it to the provider taking care of him at the SNF. - If there is a plan for getting a flap for his decubitus ulcer in the future, would recommend re-involving ID for antibiotic guidance. ID team 3 will sign off. Please call us for any questions Today, I am treating the patient for acute on chronic osteomyelitis of sacrum and b/l ischial tuberosities which can cause sepsis and in the short-term future in the absence of appropriate treatment, as described in the note., Discussed management with the primary team., and The patient is being intensively monitored for antimicrobial toxicity from Ceftriaxone and Metronidazole with the following tests: CBC, CMP. Cosigned by Santos Norris MD at 10/04/2024 7:14 AM GRANITE POLISHER ITE POLISHER ITE POLISHER ITE POLISHER Associated attestation - Santos Norris MD - 10/04/2024 7:14 AM GRANITE POLISHER I have seen and examined the patient on 10/03/24. I agree with the findings and plan of care as documented in Dr. Camargo's note. Monitor labs while in hospital but no need for outpatient lab monitoring given short duration of antibiotics. * Plan of Care - Suzan Hutchison RN - 10/03/2024 5:17 AM CST Problem: Lack of Knowledge Goal: Ability to develop a pain control plan will improve Outcome: Ongoing Problem: Medication Goal: Satisfaction with pain management medication regimen will improve Outcome: Ongoing Problem: Sensory Goal: Ability to identify factors that increase pain levels will improve while working to decrease the patient's pain levels Outcome: Ongoing Problem: Coping Goal: Ability to cope will improve Outcome: Ongoing Problem: Health Behavior Goal: Identification of resources available to assist in meeting health care needs will improve Outcome: Ongoing Problem: Discharge Planning Goal: Understanding discharge needs will improve Outcome: Ongoing Problem: Skin Integrity Impairment Risk Goal: Mobility will improve Outcome: Ongoing Goal: Understanding of ways to prevent future skin breakdown will improve Outcome: Ongoing Goal: Nutritional status will improve Outcome: Ongoing Goal: Risk for impaired skin integrity will decrease Outcome: Ongoing Problem: Isolation Lack of Knowledge Goal: Knowledge of risk factors and measures for prevention of condition will improve Outcome: Ongoing Problem: Isolation Physical Regulation Goal: Isolation- Spread of further infection will be prevented Outcome: Ongoing Goal: Isolation- Complications related to the disease process, condition, or treatment will be avoided or minimized. Outcome: Ongoing Problem: Fall Risk Goal: Ability to state ways to decrease the risk of falls will improve Outcome: Ongoing Goal: Will remain free from falls Outcome: Ongoing Goal: Will remain free from injury from falls Outcome: Ongoing Goals: Clinical Goals for the Shift: VSS, pain control, monitor I/O's, safety precautions, straight cath as needed, wound care, and rest Out And Out Cigar Maker Hand Patient Centered Goal for Treatment: pt dc back to senior care with repaired and healingwound with minimal pain Summary: VSS and patient remains A&Ox4 while on room air. Pain controlled with scheduled and prn medications. Pt straight cath's himself about every 4 hours. Pt is able to turn himself with minimal assistance. Pt refused dressing change at this time- wants to wait until later in AM. Safety precautions maintained and rest promoted. Call light is within reach. ITE POLISHER ITE POLISHER * Assessment & Plan Note - Fernanda Ling NP - 10/02/2024 11:25 AM GRANITE POLISHER Associated Problem(s): Pressure injury of buttock, unstageable, unspecified laterality (HCC) 39 y.o. male with PMH including: paraplegia [...] weekly. -ID to follow for PRS plan. ITE POLISHER * Consults, Subsequent - Fernanda Ling NP - 10/02/2024 10:00 AM GRANITE POLISHER Infectious Disease Subsequent Consult Note Infectious Disease Team: General 3 Contact Information: Please contact the Team 3 ID BINDER CUTTER (unavailable on Wednesdays) or the Attending at the phone numbers listed in care teams with any questions or concerns. After hours, please contactthe ID fellow marketing production specialist. Subjective Interval History: No acute events. PRS consult for possible flap coverage in future. Tolerating antibiotics, denies: n/v/d, abdominal pain, itching, rash. Objective Anti-infectives (From admission, onward) Start Dose/Rate Route Frequency Ordered Stop 09/28/24 2200 cefepime (MAXIPIME) 2,000 mg/20 mL in sterile water (premix) 2,000 mg 2,000 mg 240 mL/hr over 5 Minutes intravenous Every 8 hours scheduled 09/28/24 1631 09/28/24 2100 metroNIDAZOLE (FLAGYL) tablet 500 mg 500 mg oral 2 times daily 09/28/24 1630 09/27/24 2303 linezolid (ZYVOX) 600 mg/300 mL in dextrose 5% (premix) 600 mg 600 mg 150 mL/hr over 2 Hours intravenous Every 12 hours scheduled 09/27/24 2302 Vitals: 24hr Min/Max: Temp Min: 36.2 ??C (97.2 ??F) Max: 37.1 ??C (98.8 ??F) Pulse Min: 68 Max: 84 BP Min: 98/67 Max: 123/74 Resp Min: 14 Max: 18 SpO2 Min: 99 % Max: 100 % Most Recent : Vitals: 10/02/24 0918 BP: 111/74 Pulse: 70 Resp: 18 Temp: 36.3 ??C (97.3 ??F) SpO2: 99% I/O last 2 completed shifts: In: 1440 [P.O.:780; IV Piggyback:660] Out: 830 [Urine:830] Active LDAs: Peripheral IV 09/27/24 20 G Posterior;Right Hand (Active) Number of days: 5 Single Lumen Implantable Port Chest Right (Active) Number of days: Physical Exam: Physical Exam Constitutional: General: He is not in acute distress. Appearance: He is not ill-appearing. Cardiovascular: Rate and Rhythm: Normal rate and regular rhythm. Heart sounds: Normal heart sounds. Comments: Port-dressing c/d/i, skin without erythema, edema or discharge. Pulmonary: Effort: Pulmonary effort is normal. No respiratory distress. Breath sounds: Normal breath sounds. Abdominal: General: Bowel sounds are normal. There is no distension. Palpations: Abdomen is soft. Tenderness: There is no abdominal tenderness. Skin: General: Skin is warm. Findings: No erythema or rash. Neurological: General: No focal deficit present. Mental Status: He is alert and oriented to person, place, and time. Psychiatric: Mood and Affect: Mood normal. Lab/Radiology/Diagnostic Review: Lab Results Component Value Date MICROBIOLOGY Final Report: No growth 09/29/2024 MICROBIOLOGY Preliminary Report: No growth of fungus to date 09/29/2024 MICROBIOLOGY (.) 09/29/2024 Preliminary Report - Final Review Pending: Few Mixed aerobic and anaerobic microorganisms Includes the following: Rare Renetta albicans MICROBIOLOGY Preliminary Report: No growth of fungus to date 09/29/2024 MICROBIOLOGY 09/28/2024 Final Report: Less than 10,000 colonies/mL (clinically insignificant growth based on current clinical standards) Radiology results were reviewed. No results found. Assessment/Plan * Pressure injury of buttock, unstageable, unspecified laterality (HCC) Assessment & Plan 39 y.o. male with PMH including: paraplegia [...] weekly. -ID to follow for PRS plan. Cosigned by Santos Norris MD at 10/02/2024 2:43 PM GRANITE POLISHER ITE POLISHER ITE POLISHER Associated attestation - Santos Norris MD - 10/02/2024 2:43 PM GRANITE POLISHER I have seen and examined the patient on 10/02/24 in conjunction with the Nurse Practitioner. History: Feeling OK. Mild nausea. Tolerating antibiotics otherwise. Physical Exam: Port in left chest without signs of infection. Normal heart sounds. Soft abdomen. Reviewed images from today from decub ulcers. Lab/Radiology/Diagnostics Review: 09/29 OR cultures positive for mixed aerobic and anaerobic organisms and mixed Renetta albicans. Assessment/Plan: Stop linezolid and cefepime and treat with ceftriaxone and metronidazole as specified below. Preliminary plan is 2 weeks of antimicrobials for soft-tissue infection. If there are any plans for wound coverage in the immediate future we will adapt our plan to treat underlying osteomyelitis. If no plans for flapping any time soon then would treat for 2 weeks and stop. Plan and rationale discussed with patient and mother at the bedside. Supplementary attestation Today, I am treating the patient for infected decubitus ulcers which can cause sepsis in the short-term future in the absence of appropriate treatment, as described in the note. Reviewed notes by medicine, plastic surgery to determine appropriate plan of care as in the note. Estimated Creatinine Clearance: 135 mL/min (A) (by Cockcroft-Gault based on SCr of 0.65 mg/dL (L)).- reviewed; antibiotics recommended above are dosed accordingly. The patient is being intensively monitored for antimicrobial toxicity from ceftriaxone, metrondiazole with the following tests: CBC and CMP weekly. * Plan of Care - Zoila Morales RN - 10/02/2024 9:17 AM CST Patient reports he does not want to return to his current LTC facility - he believes he was not getting the proper wound care while there, and that his wound/osteomyelitis worsened because of it. Patient has Medicare part A/B and [facility] Plan of [place] secondary. Due to numerous factors, including extensive wounds to buttocks, paraplegia, and suprapubic catheter, CM sent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 documented as of this encounter Procedures Procedure Name Priority Date/Time Associated Diagnosis Comments EGFR Timed 10/08/2024 4:17 AM [employer]ISHER DIFFERENTIAL AUTO Routine 10/08/2024 4:1 7 AM [employer]ITE [employer]ISHER CBC WITH AUTO DIFFERENTIAL Routine 10/08/2024 4:17 AM [employer]ER PHOSPHORUS Timed 10/08/2024 4:17 AM [employer]ISHER MAGNESIUM Timed 10/08/2024 4:17 AM [employer]ISHER COMPREHENSIVE METABOLIC PANEL Timed 10/08/2024 4:17 AM [employer]ITE [employer]ISHER XR ABDOMEN AP 1 VIEW IP Routine 10/07/2024 4:10 PM [employer]ER EGFR Routine 10/07/2024 3:16 AM [employer]ITE POLISHER DIFFERENTIAL AUTO Routine 10/07/2024 3:1 6 AM [employer]ITE POLISHER CBC WITH AUTO DIFFERENTIAL Routine 10/07/2024 3:16 AM [employer]ISHER COMPREHENSIVE METABOLIC PANEL Routine 10/07/2024 3:16 AM [employer]ISHER EGFR Timed 10/06/2024 6:15 AM [employer]ISHER DIFFERENTIAL AUTO Routine 10/06/2024 6:1 5 AM [employer]ITE [employer]ISHER CBC WITH AUTO DIFFERENTIAL Routine 10/06/2024 6:15 AM [employer]ITE [employer]ISHER PHOSPHORUS Timed 10/06/2024 6:15 AM [employer]ITE [employer]ISHER MAGNESIUM Timed 10/06/2024 6:15 AM [employer]ITE POLISHER COMPREHENSIVE METABOLIC PANEL Timed 10/06/2024 6:15 AM [employer]ITE POLISHER C. DIFFICILE TESTING Routine 10/05/2024 9:43 PM [employer]ITE [employer]ISHER INFECTION PREVENTION VRE CULTURE Routine 10/05/2024 9:43 PM [employer]ER EGFR Routine 10/05/2024 8:13 AM GR[employer]ITE POLISHER DIFFERENTIAL AUTO Routine 10/05/2024 8:1 3 AM GR[employer]ITE POLISHER CBC WITH AUTO DIFFERENTIAL Routine 10/05/2024 8:13 AM [employer]ITE POLISHER PHOSPHORUS Routine 10/05/2024 8:13 AM GR[employer]ITE POLISHER MAGNESIUM Routine 10/05/2024 8:13 AM [employer]ITE POLISHER COMPREHENSIVE METABOLIC PANEL Routine 10/05/2024 8:13 AM [employer]ITE POLISHER EGFR Timed 10/04/2024 6:24 AM [employer]ITE POLISHER DIFFERENTIAL AUTO Routine 10/04/2024 6:2 4 AM [employer]ITE POLISHER CBC WITH AUTO DIFFERENTIAL Routine 10/04/2024 6:24 AM [employer]ITE [employer]ISHER PHOSPHORUS Timed 10/04/2024 6:24 AM [employer]ITE POLISHER MAGNESIUM Timed 10/04/2024 6:24 AM [employer]ITE POLISHER COMPREHENSIVE METABOLIC PANEL Timed 10/04/2024 6:24 AM [employer]ITE [employer]ISHER EGFR Timed 10/03/2024 5:42 AM [employer]ITE POLISHER DIFFERENTIAL AUTO Routine 10/03/2024 5:4 2 AM GR[employer]ITE POLISHER CBC WITH AUTO DIFFERENTIAL Routine 10/03/2024 5:42 AM [employer]ITE POLISHER PREALBUMIN Routine 10/03/2024 5:42 AM [employer]ITE POLISHER PHOSPHORUS Timed 10/03/2024 5:42 AM [employer]ITE POLISHER MAGNESIUM Timed 10/03/2024 5:42 AM [employer]ITE [employer]ISHER COMPREHENSIVE METABOLIC PANEL Timed 10/03/2024 5:42 AM GR[employer]ITE POLISHER EGFR Routine 10/02/2024 2:24 AM [employer]ITE POLISHER DIFFERENTIAL AUTO Routine 10/02/2024 2:2 4 AM GR[employer]ITE POLISHER CBC WITH AUTO DIFFERENTIAL Routine 10/02/2024 2:24 AM [employer]ITE POLISHER MAGNESIUM Routine 10/02/2024 2:24 AM [employer]ITE POLISHER BASIC METABOLIC PANEL Routine 10/02/2024 2:24 AM GR[employer]ITE POLISHER EGFR Routine 10/01/2024 2:22 AM GR[employer]ITE POLISHER DIFFERENTIAL AUTO Routine 10/01/2024 2:2 2 AM GR[employer]ITE POLISHER CBC WITH AUTO DIFFERENTIAL Routine 10/01/2024 2:22 AM GR[employer]ITE POLISHER APTT Routine 10/01/2024 2:22 AM GR[employer]ITE POLISHER PROTIME-INR Routine 10/01/2024 2:22 AM GR[employer]ITE POLISHER BASIC METABOLIC PANEL Routine 10/01/2024 2:22 AM GR[employer]ITE POLISHER EGFR Routine 09/29/2024 4:17 PM GR[employer]ITE POLISHER DIFFERENTIAL AUTO Routine 09/29/2024 4:1 7 PM [employer]ITE POLISHER CBC WITH AUTO DIFFERENTIAL Routine 09/29/2024 4:17 PM GR[employer]ITE POLISHER APTT Routine 09/29/2024 4:17 PM GR[employer]ITE POLISHER PROTIME-INR Routine 09/29/2024 4:17 PM [employer]ITE POLISHER RETICULOCYTES Routine 09/29/2024 4:17 PM [employer]ITE POLISHER FOLATE Routine 09/29/2024 4:17 PM GR[employer]ITE POLISHER FERRITIN Routine 09/29/2024 4:17 PM [employer]ITE POLISHER VITAMIN B12 Routine 09/29/2024 4:17 PM [employer]ITE POLISHER BASIC METABOLIC PANEL Routine 09/29/2024 4:17 PM [employer]ITE POLISHER TISSUE AEROBIC AND ANAEROBIC CULTURE AND GRAM STAIN Routine 09/29/2024 12:37 PM [employer]ITE POLISHER MYCOLOGY (FUNGAL) CULTURE Routine 09/29/2024 12:37 PM [employer]ER TISSUE AEROBIC AND ANAEROBIC CULTURE AND GRAM STAIN Routine 09/29/2024 12:26 PM [employer]ITE POLISHER MYCOLOGY (FUNGAL) CULTURE Routine 09/29/2024 12:26 PM [employer]ITE POLISHER DEBRIDEMENT - SACRUM/ISCHIUM 09/29/2024 11:20 AM [employer]ITE POLISHER Pressure injury of buttock, unstageable, unspecified laterality (HCC) EGFR Routine 09/29/2024 5:48 AM GR[employer]ITE POLISHER DIFFERENTIAL AUTO Routine 09/29/2024 5:4 8 AM [employer]ITE POLISHER CBC WITH AUTO DIFFERENTIAL Routine 09/29/2024 5:48 AM GR[employer]ITE POLISHER APTT Routine 09/29/2024 5:48 AM GR[employer]ITE POLISHER PROTIME-INR Routine 09/29/2024 5:48 AM [employer]ITE POLISHER BASIC METABOLIC PANEL Routine 09/29/2024 5:48 AM GR[employer]ITE POLISHER CBC WITHOUT DIFFERENTIAL Timed 09/28/2024 9:26 PM [employer]ITE POLISHER POTASSIUM, WHOLE BLOOD STAT 09/28/2024 1:54 PM [employer]ISHER EGFR STAT 09/28/2024 1:54 PM [employer]ITE POLISHER DIFFERENTIAL AUTO STAT 09/28/2024 1:5 4 PM [employer]ITE POLISHER IRON PROFILE W/ IBC STAT 09/28/2024 1 :54 PM [employer]ITE POLISHER CBC WITH AUTO DIFFERENTIAL STAT 09/28/2024 1:54 PM [employer]ITE POLISHER APTT STAT 09/28/2024 1:54 PM [employer]ITE POLISHER PROTIME-INR STAT 09/28/2024 1:54 PM [employer]ITE POLISHER TYPE AND SCREEN STAT 09/28/2024 1:54 PM [employer]ITE [employer]ISHER OSMOLALITY, BLOOD STAT 09/28/2024 1:5 4 PM [employer] POLISHER HEMOGLOBIN A1C STAT 09/28/2024 1:54 PM [employer] POLISHER COMPREHENSIVE METABOLIC PANEL STAT 09/28/2024 1:54 PM [employer]ITE [employer]ISHER URINE CULTURE STAT 09/28/2024 1:35 PM [employer]ITE POLISHER UREA NITROGEN, URINE, RANDOM STAT 09/28/2024 1:07 PM [employer] POLISHER SODIUM, URINE, RANDOM STAT 09/28/2024 1:07 PM [employer]ISHER OSMOLALITY, URINE STAT 09/28/2024 1:0 7 PM [employer] POLISHER CREATININE, URINE, RANDOM STAT 09/28/2024 1:07 PM [employer]ITE [employer]ISHER ECG 12-LEAD Routine 09/28/2024 11:11 AM [employer]ITE POLISHER URINALYSIS AND REFLEX TO MICROSCOPIC AND CULTURE STAT 09/28/2024 7:53 AM [employer]ITE POLISHER URINALYSIS, MICROSCOPIC ONLY STAT 09/28/2024 7:53 AM [employer]ITE POLISHER URINE CULTURE Routine 09/28/2024 7:53 AM [employer]ITE POLISHER INFLUENZA A/B, RSV, AND COVID-19 PCR Routine 09/28/2024 1:[address] ABDOMEN PELVIS W CONTRAST ED 09/27/2024 11:35 PM [employer]ITE POLISHER SEPSIS LACTATE WITH REFLEX Timed 09/27/2024 10:32 PM [employer]ITE POLISHER BLOOD CULTURE STAT 09/27/2024 10:32 PM [employer]ITE POLISHER XR CHEST 1 VIEW ED 09/27/2024 10:21 PM [employer]ITE POLISHER SEPSIS LACTATE WITH REFLEX STAT 09/27/2024 7:59 PM [employer]ITE POLISHER EGFR STAT 09/27/2024 7:59 PM GR[employer]ITE POLISHER DIFFERENTIAL AUTO STAT 09/27/2024 7:5 9 PM GR[employer]ITE POLISHER CBC WITH AUTO DIFFERENTIAL STAT 09/27/2024 7:59 PM [employer]ITE POLISHER BLOOD CULTURE STAT 09/27/2024 7:59 PM [employer]ITE POLISHER COMPREHENSIVE METABOLIC PANEL STAT 09/27/2024 7:59 PM [employer]ITE POLISHER documented in this encounter Results * (ABNORMAL) Comprehensive metabolic panel (10/08/2024 4:17 AM GR[employer]ITE POLISHER) Pathologist [facility] Sodium 138 135 - 145 mmol/L Potassium, pl 4.5 3.3 - 4.9 mmol/L [facility] Chloride 105 97 - 110 mmol/L [facility] CO2 25 22 - 32 mmol/L [facility] Anion gap 8 2 - 15 mmol/L [facility] BUN 12 6 - 25 mg/dL [facility] Creatinine 0.53(L) 0.80 - 1.30 mg/dL [facility] Glucose 86 70 - 199 mg/dL [facility] Comment: Interpretive Data Fasting glucose >/= 126 [...] 2022. Calcium 8.5 8.5 - 10.3 mg/dL [facility] Bilirubin, total <0.2 0.1 - 1.2 mg/dL [facility] Protein, pl 6.8 6.5 - 8.5 g/dL [facility] Albumin 3.0(L) 3.5 - 5.0 g/dL [facility] Alk phos 87 40 - 130 Units/L [facility] ALT 9 7 - 55 Units/L [facility] AST 10 10 - 50 Units/L [facility] Blood 10/08/2024 4:17 AM [employer]ISHER 10/08/2024 4:48 AM [employer]ITE POLISHER us Yoseph Golden MD LAB BLOOD ORDERABLES Final Resul t [facility] [place] [address] * eGFR (10/08/2024 4:17 AM GR[employer]ITE POLISHER) Pathologist [facility] eGFR >90 >=60 mL/min/1. 73 m2 Comment: [...] last reviewed 2021. Blood 10/08/2024 4:17 AM [employer]ITE [employer]ISHER 10/08/2024 4:58 AM [employer]ITE [employer]ISHER us Yoseph Golden MD LAB BLOOD ORDERABLES Final Resul t [facility] [place] [address] * (ABNORMAL) Differential, auto (10/08/2024 4:17 AM [employer] POLISHER) Neutrophil abs 7.1(H) 1.5 - 6.5 K/cumm Imm gran abs 0.2(H) 0.0 - 0.1 K/cumm [facility] Lymphocyte abs 2.7 0.8 - 3.3 K/cumm [facility] Monocyte abs 0.7 0.2 - 0.8 K/cumm [facility] Eosinophil abs 0.2 0.0 - 0.5 K/cumm [facility] Basophil abs 0.0 0.0 - 0.1 K/cumm [facility] Neutrophil pct 64.3 % [facility] Comment: Interpretive Data Percent cell count reference ranges are not reported, since discordance with absolute values may lead to misinterpretation of CBC data. Current Interpretive Data was last revised on 2018. Imm gran pct 1.9 % [facility] Comment: Interpretive Data Percent cell count reference ranges are not reported, since discordance with absolute values may lead to misinterpretation of CBC data. Current Interpretive Data was last revised on 2018. Lymphocyte pct 25.0 % [facility] Comment: Interpretive Data Percent cell count reference ranges are not reported, since discordance with absolute values may lead to misinterpretation of CBC data. Current Interpretive Data was last revised on 2018. Monocyte pct 6.5 % [facility] Comment: Interpretive Data Percent cell count reference ranges are not reported, since discordance with absolute values may lead to misinterpretation of CBC data. Current Interpretive Data was last revised on 2018. Eosinophil pct 1.9 % [facility] Comment: Interpretive Data Percent cell count reference ranges are not reported, since discordance with absolute values may lead to misinterpretation of CBC data. Current Interpretive Data was last revised on 2018. Basophil pct 0.4 % [facility] Comment: Interpretive Data Percent cell count reference ranges are not reported, since discordance with absolute values may lead to misinterpretation of CBC data. Current Interpretive Data was last revised on 2018. Blood 10/08/2024 4:17 AM [employer]ISHER 10/08/2024 4:51 AM [employer]ITE [employer]ISHER us Yoseph Golden MD LAB BLOOD ORDERABLES Final Resul t [facility] Department [place] [address] * (ABNORMAL) CBC with auto differential (10/08/2024 4:17 AM GR[employer] POLISHER) WBC 11.0(H) 3.8 - 9.9 K/cumm Hgb 7.7(L) 13.0 - 17.5 g/dL [facility] Hct 25.8(L) 38.9 - 50.3 % [facility] Plt 402(H) 150 - 400 K/cumm [facility] MPV 9.6 9.1 - 12.3 fL [facility] RBC 3.46(L) 4.30 - 5.80 M/cumm [facility] MCV 74.6(L) 81.3 - 96.4 fL [facility] MCH 22.3(L) 27.1 - 33.3 pg [facility] MCHC 29.8(L) 32.3 - 35.7 g/dL [facility] RDW CV 20.4(H) 11.1 - 14.9 % [facility] RDW SD 50.9(H) 35.7 - 48.1 fL [facility] NRBC abs 0.00 0.00 - 0.01 K/cumm [facility] Blood 10/08/2024 4:17 AM [employer]ER 10/08/2024 4:51 AM [employer]ER us Yoseph Golden MD LAB BLOOD ORDERABLES Final Resul t [facility] [place] [address] * Phosphorus (10/08/2024 4:17 AM [employer] POLISHER) Pathologist [facility] Phosphorus, pl 3.8 2.3 - 4.5 mg/dL Blood 10/08/2024 4:17 AM [employer]ISHER 10/08/2024 4:48 AM [employer]ER us Kathia Ruiz MD LAB BLOOD ORDERABLES Jessica l Result [facility] Department [place] [address] * Magnesium (10/08/2024 4:17 AM [employer] POLISHER) Pathologist [facility] Magnesium 2.0 1.4 - 2.5 mg/dL Blood 10/08/2024 4:17 AM [employer]ISHER 10/08/2024 4:48 AM [employer]ER Kathia Ruiz MD LAB BLOOD ORDERABLES Jessica cruz Result [facility] [place] [address] * XR Abdomen Ap 1 Vw (10/07/2024 4:10 PM [employer]ISHER) Anatomical Region Laterality Modality Body, Abdomen N/A Computed Radiogr aphy 10/07/2024 4:30 PM [employer]ER Impressions 10/07/2024 4:30 PM [employer]ISH[employer] A single view of the abdomen is submitted for evaluation. Large colorectal stool volume. No evidence of bowel obstruction. Cholecystectomy changes. Left intramedullary femoral nail. 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 Electronically signed by: Carlito Hancock M.D. Narrative 10/07/2024 4:30 PM [employer]ER EXAMINATION: Abdomen, one view. HISTORY: Abdominal pain. [...] Final Result * eGFR (10/07/2024 3:16 AM [employer]ITE POLISHER) Pathologist [facility] eGFR >90 >=60 mL/min/1. 73 m2 Comment: [...] last reviewed 2021. Blood 10/07/2024 3:16 AM [employer]ITE [employer]ER 10/07/2024 3:31 AM [employer]ER Yoseph Golden MD LAB BLOOD ORDERABLES Final Resul t [facility] [place] [address] * (ABNORMAL) Differential, auto (10/07/2024 3:16 AM [employer] POLISHER) Pathologist [facility] Neutrophil abs 5.6 1.5 - 6.5 K/cumm Imm gran abs 0.3(H) 0.0 - 0.1 K/cumm [facility] Lymphocyte abs 2.6 0.8 - 3.3 K/cumm [facility] Monocyte abs 0.8 0.2 - 0.8 K/cumm [facility] Eosinophil abs 0.2 0.0 - 0.5 K/cumm [facility] Basophil abs 0.0 0.0 - 0.1 K/cumm [facility] Neutrophil pct 58.9 % [facility] Comment: Interpretive Data Percent cell count reference ranges are not reported, since discordance with absolute values may lead to misinterpretation of CBC data. Current Interpretive Data was last revised on 2018. Imm gran pct 2.6 % [facility] Comment: Interpretive Data Percent cell count reference ranges are not reported, since discordance with absolute values may lead to misinterpretation of CBC data. Current Interpretive Data was last revised on 2018. Lymphocyte pct 27.7 % [facility] Comment: Interpretive Data Percent cell count reference ranges are not reported, since discordance with absolute values may lead to misinterpretation of CBC data. Current Interpretive Data was last revised on 2018. Monocyte pct 8.4 % [facility] Comment: Interpretive Data Percent cell count reference ranges are not reported, since discordance with absolute values may lead to misinterpretation of CBC data. Current Interpretive Data was last revised on 2018. Eosinophil pct 2.2 % [facility] Comment: Interpretive Data Percent cell count reference ranges are not reported, since discordance with absolute values may lead to misinterpretation of CBC data. Current Interpretive Data was last revised on 2018. Basophil pct 0.2 % [facility] Comment: Interpretive Data Percent cell count reference ranges are not reported, since discordance with absolute values may lead to misinterpretation of CBC data. Current Interpretive Data was last revised on 2018. Blood 10/07/2024 3:16 AM [employer]ITE [employer]ISHER 10/07/2024 3:31 AM [employer]ITE POLISHER us Yoseph Golden MD LAB BLOOD ORDERABLES Final Resul t [facility] [place] [address] * (ABNORMAL) CBC with auto differential (10/07/2024 3:16 AM [employer] POLISHER) Pathologist [facility] WBC 9.5 3.8 - 9.9 K/cumm Hgb 7.4(L) 13.0 - 17.5 g/dL [facility] Hct 24.6(L) 38.9 - 50.3 % [facility] Plt 400 150 - 400 K/cumm [facility] MPV 9.9 9.1 - 12.3 fL [facility] RBC 3.33(L) 4.30 - 5.80 M/cumm [facility] MCV 73.9(L) 81.3 - 96.4 fL [facility] MCH 22.2(L) 27.1 - 33.3 pg [facility] MCHC 30.1(L) 32.3 - 35.7 g/dL [facility] RDW CV 19.8(H) 11.1 - 14.9 % [facility] RDW SD 49.8(H) 35.7 - 48.1 fL [facility] NRBC abs 0.00 0.00 - 0.01 K/cumm [facility] Blood 10/07/2024 3:16 AM [employer]ISHER 10/07/2024 3:31 AM [employer]ITE [employer]ISHER Yoseph Golden MD LAB BLOOD ORDERABLES Final Resul t [facility] [place] [address] * (ABNORMAL) Comprehensive metabolic panel (10/07/2024 3:16 AM [employer] POLISHER) Sodium 138 135 - 145 mmol/L Potassium, pl 4.3 3.3 - 4.9 mmol/L [facility] Chloride 106 97 - 110 mmol/L [facility] CO2 26 22 - 32 mmol/L [facility] Anion gap 6 2 - 15 mmol/L [facility] BUN 12 6 - 25 mg/dL [facility] Creatinine 0.52(L) 0.80 - 1.30 mg/dL [facility] Glucose 100 70 - 199 mg/dL [facility] Comment: Interpretive Data Fasting glucose >/= 126 [...] 2022. Calcium 8.4(L) 8.5 - 10.3 mg/dL [facility] Bilirubin, total <0.2 0.1 - 1.2 mg/dL [facility] Comment:Repeated and Verifie d Protein, pl 6.9 6.5 - 8.5 g/dL [facility] Albumin 2.6(L) 3.5 - 5.0 g/dL [facility] Alk phos 93 40 - 130 Units/L [facility] ALT 9 7 - 55 Units/L [facility] AST 11 10 - 50 Units/L [facility] Blood 10/07/2024 3:16 AM [employer]ISHER 10/07/2024 3:31 AM [employer]ITE [employer]ISHER Yoseph Golden MD LAB BLOOD ORDERABLES Final Resul t [facility] [place] [address] * (ABNORMAL) Comprehensive metabolic panel (10/06/2024 6:15 AM [employer]ISHER) Sodium 141 135 - 145 mmol/L Potassium, pl 3.7 3.3 - 4.9 mmol/L [facility] Chloride 108 97 - 110 mmol/L [facility] CO2 25 22 - 32 mmol/L [facility] Anion gap 8 2 - 15 mmol/L [facility] BUN 12 6 - 25 mg/dL [facility] Creatinine 0.58(L) 0.80 - 1.30 mg/dL [facility] Glucose 88 70 - 199 mg/dL [facility] Comment: Interpretive Data Fasting glucose >/= 126 [...] 2022. Calcium 8.2(L) 8.5 - 10.3 mg/dL [facility] Bilirubin, total 0.2 0.1 - 1.2 mg/dL [facility] Comment:Reviewed Protein, pl 6.7 6.5 - 8.5 g/dL [facility] Albumin 3.0(L) 3.5 - 5.0 g/dL [facility] Alk phos 88 40 - 130 Units/L [facility] ALT 10 7 - 55 Units/L [facility] AST 5(L) 10 - 50 Units/L [facility] Blood 10/06/2024 6:15 AM [employer]ER 10/06/2024 7:05 AM [employer]ISHER Yoseph Golden MD LAB BLOOD ORDERABLES Final Resul t [facility] [place] [address] * eGFR (10/06/2024 6:15 AM [employer]ISHER) eGFR >90 >=60 mL/min/1. 73 m2 Comment: [...] last reviewed 2021. Blood 10/06/2024 6:15 AM [employer]ITE [employer]ISHER 10/06/2024 7:05 AM [employer]ISHER us Yoseph Golden MD LAB BLOOD ORDERABLES Final Resul t [facility] [place] [address] * (ABNORMAL) Differential, auto (10/06/2024 6:15 AM [employer]ISHER) Neutrophil abs 6.5 1.5 - 6.5 K/cumm Imm gran abs 0.4(H) 0.0 - 0.1 K/cumm [facility] Lymphocyte abs 2.5 0.8 - 3.3 K/cumm [facility] Monocyte abs 1.2(H) 0.2 - 0.8 K/cumm [facility] Eosinophil abs 0.3 0.0 - 0.5 K/cumm [facility] Basophil abs 0.0 0.0 - 0.1 K/cumm [facility] Neutrophil pct 59.5 % [facility] Comment: Interpretive Data Percent cell count reference ranges are not reported, since discordance with absolute values may lead to misinterpretation of CBC data. Current Interpretive Data was last revised on 2018. Imm gran pct 4.0 % [facility] Comment: Interpretive Data Percent cell count reference ranges are not reported, since discordance with absolute values may lead to misinterpretation of CBC data. Current Interpretive Data was last revised on 2018. Lymphocyte pct 23.0 % [facility] Comment: Interpretive Data Percent cell count reference ranges are not reported, since discordance with absolute values may lead to misinterpretation of CBC data. Current Interpretive Data was last revised on 2018. Monocyte pct 10.6 % [facility] Comment: Interpretive Data Percent cell count reference ranges are not reported, since discordance with absolute values may lead to misinterpretation of CBC data. Current Interpretive Data was last revised on 2018. Eosinophil pct 2.5 % [facility] Comment: Interpretive Data Percent cell count reference ranges are not reported, since discordance with absolute values may lead to misinterpretation of CBC data. Current Interpretive Data was last revised on 2018. Basophil pct 0.4 % [facility] Comment: Interpretive Data Percent cell count reference ranges are not reported, since discordance with absolute values may lead to misinterpretation of CBC data. Current Interpretive Data was last revised on 2018. Blood 10/06/2024 6:15 AM [employer]ER 10/06/2024 7:01 AM [employer]ER Yoseph Golden MD LAB BLOOD ORDERABLES Final Resul t [facility] [place] [address] * (ABNORMAL) CBC with auto differential (10/06/2024 6:15 AM [employer] POLISHER) WBC 10.9(H) 3.8 - 9.9 K/cumm Hgb 7.4(L) 13.0 - 17.5 g/dL [facility] Hct 24.4(L) 38.9 - 50.3 % [facility] Plt 401(H) 150 - 400 K/cumm [facility] MPV 9.7 9.1 - 12.3 fL [facility] RBC 3.31(L) 4.30 - 5.80 M/cumm [facility] MCV 73.7(L) 81.3 - 96.4 fL [facility] MCH 22.4(L) 27.1 - 33.3 pg [facility] MCHC 30.3(L) 32.3 - 35.7 g/dL [facility] RDW CV 19.7(H) 11.1 - 14.9 % [facility] RDW SD 49.0(H) 35.7 - 48.1 fL [facility] NRBC abs 0.00 0.00 - 0.01 K/cumm [facility] Blood 10/06/2024 6:15 AM [employer]ITE [employer]ISHER 10/06/2024 7:01 AM [employer]ITE [employer]ISHER Yoseph Golden MD LAB BLOOD ORDERABLES Final Resul t Performing Organization Address City/[facility] Co de Phone Number [facility] [employer] [place] [address] * Phosphorus (10/06/2024 6:15 AM GR[employer]ITE POLISHER) Phosphorus, pl 3.9 2.3 - 4.5 mg/dL Blood 10/06/2024 6:15 AM [employer]ISHER 10/06/2024 7:05 AM [employer]ISHER us Kathia Ruiz MD LAB BLOOD ORDERABLES Jessica l Result Performing Organization Address [facility] de Phone Number [facility] [employer] [place] [address] * Magnesium (10/06/2024 6:15 AM GR[employer]ITE POLISHER) Magnesium 2.0 1.4 - 2.5 mg/dL Blood 10/06/2024 6:15 AM [employer]ISHER 10/06/2024 7:05 AM [employer]ITE POLISHER Kathia Ruiz MD LAB BLOOD ORDERABLES Jessica l Result Performing Organization Address [facility] Co de Phone Number [facility] [employer] [place] [address] * Infection Prevention VRE Culture Stool (10/05/2024 9:43 PM GR[employer] POLISHER) Report Final Report: Negative Stool 10/05/2024 9:43 PM [employer]ISHER 10/06/2024 4:23 AM GR[employer]ITE POLISHER Narrative [facility] - 10/08/2024 7:57 AM [employer]ISHER Surveillance culture for Infection Prevention purposes only; results indicate colonization, not infection requiring treatment. Testing performed by [facility] ([phone]). Yoseph Golden MD LAB MICROBIOLOGY - GENERAL ORDER WHITNEY Final Result Performing Organization Address [facility] de Phone Number [facility] [place] [address] * C. difficile testing Stool (10/05/2024 9:43 PM GR[employer]ITE [employer]ISHER) [facility] Result Negative Negative Toxin Result Negative Negative [facility] C. diff result Negative, free toxin Negative, free toxin [facility] C. diff interp Negative for toxigenic Clostridioides (Clostridium) difficile. Analysis was performed using a glutamate dehydrogenase antigen detection assay combined with a C. difficile toxin detection assay. [facility] Stool 10/05/2024 9:43 PM [employer] 10/05/2024 11:54 PM [employer] Yoseph Golden MD LAB MICROBIOLOGY - GENERAL ORDER WHITNEY Final Result Performing Organization Address [facility] de Phone Number [facility] [place] [address] * eGFR (10/05/2024 8:13 AM [employer]ITE [employer]ISHER) [facility] eGFR >90 >=60 mL/min/1. 73 m2 Comment: [...] last reviewed 2021. Blood 10/05/2024 8:13 AM [employer] 10/05/2024 8:53 AM [employer]ITE [employer]ER Yoseph Golden MD LAB BLOOD ORDERABLES Final Resul t Performing Organization Address [facility] de Phone Number [facility] [place] [address] * Magnesium (10/05/2024 8:13 AM [employer]ITE [employer]ISHER) Magnesium 2.1 1.4 - 2.5 mg/dL Blood 10/05/2024 8:13 AM [employer] 10/05/2024 8:39 AM [employer]ITE [employer]ER Yoseph Golden MD LAB BLOOD ORDERABLES Final Resul t Performing Organization Address [facility] de Phone Number [facility] Department [place] [employer] 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) Phosphorus, pl 3.8 2.3 - 4.5 mg/dL Blood 10/05/2024 8:13 AM [employer]ER 10/05/2024 8:39 AM [employer]ITE [employer]ISHER Yoseph Golden MD LAB BLOOD ORDERABLES Final Resul t Performing Organization Address [facility] Co de Phone Number [facility] [place] [address] * (ABNORMAL) Differential, auto (10/05/2024 8:13 AM [employer]ER) Neutrophil abs 6.4 1.5 - 6.5 K/cumm Imm gran abs 0.5(H) 0.0 - 0.1 K/cumm [facility] Lymphocyte abs 2.1 0.8 - 3.3 K/cumm [facility] Monocyte abs 1.1(H) 0.2 - 0.8 K/cumm [facility] Eosinophil abs 0.3 0.0 - 0.5 K/cumm [facility] Basophil abs 0.0 0.0 - 0.1 K/cumm [facility] Neutrophil pct 62.0 % [facility] Comment: Interpretive Data Percent cell count reference ranges are not reported, since discordance with absolute values may lead to misinterpretation of CBC data. Current Interpretive Data was last revised on 2018. Imm gran pct 4.3 % [facility] Comment: Interpretive Data Percent cell count reference ranges are not reported, since discordance with absolute values may lead to misinterpretation of CBC data. Current Interpretive Data was last revised on 2018. Lymphocyte pct 20.2 % [facility] Comment: Interpretive Data Percent cell count reference ranges are not reported, since discordance with absolute values may lead to misinterpretation of CBC data. Current Interpretive Data was last revised on 2018. Monocyte pct 10.7 % [facility] Comment: Interpretive Data Percent cell count reference ranges are not reported, since discordance with absolute values may lead to misinterpretation of CBC data. Current Interpretive Data was last revised on 2018. Eosinophil pct 2.5 % [facility] Comment: Interpretive Data Percent cell count reference ranges are not reported, since discordance with absolute values may lead to misinterpretation of CBC data. Current Interpretive Data was last revised on 2018. Basophil pct 0.3 % [facility] Comment: Interpretive Data Percent cell count reference ranges are not reported, since discordance with absolute values may lead to misinterpretation of CBC data. Current Interpretive Data was last revised on 2018. Blood 10/05/2024 8:13 AM [employer]ER 10/05/2024 8:52 AM [employer]ITE [employer]ISHER Yoseph Golden MD LAB BLOOD ORDERABLES Final Resul t Performing Organization Address [facility] de Phone Number [facility] [place] [address] * (ABNORMAL) CBC with auto differential (10/05/2024 8:13 AM GR[employer]ITE POLISHER) WBC 10.4(H) 3.8 - 9.9 K/cumm Hgb 7.8(L) 13.0 - 17.5 g/dL [facility] Hct 25.9(L) 38.9 - 50.3 % [facility] Plt 423(H) 150 - 400 K/cumm [facility] MPV 9.8 9.1 - 12.3 fL [facility] RBC 3.45(L) 4.30 - 5.80 M/cumm [facility] MCV 75.1(L) 81.3 - 96.4 fL [facility] MCH 22.6(L) 27.1 - 33.3 pg [facility] MCHC 30.1(L) 32.3 - 35.7 g/dL [facility] RDW CV 19.2(H) 11.1 - 14.9 % [facility] RDW SD 48.6(H) 35.7 - 48.1 fL [facility] NRBC abs 0.00 0.00 - 0.01 K/cumm [facility] Blood 10/05/2024 8:13 AM [employer]ISHER 10/05/2024 8:52 AM GR[employer]ITE [employer]ISHER us Yoseph Golden MD LAB BLOOD ORDERABLES Final Resul t Performing Organization Address [facility] Co de Phone Number [facility] [place] [employer] [place] [place] [address] * (ABNORMAL) Comprehensive metabolic panel (10/05/2024 8:13 AM [employer]ITE POLISHER) Sodium 139 135 - 145 mmol/L Potassium, pl 4.1 3.3 - 4.9 mmol/L [facility] Chloride 109 97 - 110 mmol/L [facility] CO2 25 22 - 32 mmol/L [facility] Anion gap 5 2 - 15 mmol/L [facility] BUN 14 6 - 25 mg/dL [facility] Creatinine 0.54(L) 0.80 - 1.30 mg/dL [facility] Glucose 91 70 - 199 mg/dL [facility] Comment: Interpretive Data Fasting glucose >/= 126 [...] 2022. Calcium 8.4(L) 8.5 - 10.3 mg/dL [facility] Bilirubin, total <0.2 0.1 - 1.2 mg/dL [facility] Protein, pl 7.0 6.5 - 8.5 g/dL [facility] Albumin 2.6(L) 3.5 - 5.0 g/dL [facility] Alk phos 98 40 - 130 Units/L [facility] ALT 9 7 - 55 Units/L [facility] AST 10 10 - 50 Units/L [facility] Blood 10/05/2024 8:13 AM [employer]ER 10/05/2024 8:39 AM [employer]ITE [employer]ISH[employer] us Yoseph Golden MD LAB BLOOD ORDERABLES Final Resul t [facility] [place] [address] * (ABNORMAL) Comprehensive metabolic panel (10/04/2024 6:24 AM GR[employer]ITE POLISHER) Pathologist [facility] Sodium 137 135 - 145 mmol/L Potassium, pl 3.9 3.3 - 4.9 mmol/L [facility] Chloride 109 97 - 110 mmol/L [facility] CO2 24 22 - 32 mmol/L [facility] Anion gap 4 2 - 15 mmol/L [facility] BUN 14 6 - 25 mg/dL [facility] Creatinine 0.56(L) 0.80 - 1.30 mg/dL [facility] Glucose 88 70 - 199 mg/dL [facility] Comment: Interpretive Data Fasting glucose >/= 126 [...] 2022. Calcium 8.2(L) 8.5 - 10.3 mg/dL [facility] Bilirubin, total <0.2 0.1 - 1.2 mg/dL [facility] Protein, pl 6.8 6.5 - 8.5 g/dL [facility] Albumin 2.6(L) 3.5 - 5.0 g/dL [facility] Alk phos 95 40 - 130 Units/L [facility] ALT 11 7 - 55 Units/L [facility] AST 11 10 - 50 Units/L [facility] Blood 10/04/2024 6:24 AM [employer]ISHER 10/04/2024 6:49 AM [employer]ITE [employer]ISHER us Yoseph Golden MD LAB BLOOD ORDERABLES Final Resul t [facility] Department [place] [address] * eGFR (10/04/2024 6:24 AM GR[employer]ITE POLISHER) Pathologist [facility] eGFR >90 >=60 mL/min/1. 73 m2 Comment: [...] last reviewed 2021. Blood 10/04/2024 6:24 AM [employer]ITE [employer]ISHER 10/04/2024 6:49 AM [employer]ITE [employer]ISHER us Yoseph Golden MD LAB BLOOD ORDERABLES Final Resul t [facility] [place] [address] * (ABNORMAL) Differential, auto (10/04/2024 6:24 AM [employer]ER) Neutrophil abs 7.0(H) 1.5 - 6.5 K/cumm Imm gran abs 0.5(H) 0.0 - 0.1 K/cumm [facility] Lymphocyte abs 2.2 0.8 - 3.3 K[facility]umm [facility] Monocyte abs 1.1(H) 0.2 - 0.8 K/cumm [facility] Eosinophil abs 0.4 0.0 - 0.5 K/cumm [facility] Basophil abs 0.0 0.0 - 0.1 K/cumm [facility] Neutrophil pct 62.8 % [facility] Comment: Interpretive Data Percent cell count reference ranges are not reported, since discordance with absolute values may lead to misinterpretation of CBC data. Current Interpretive Data was last revised on 2018. Imm gran pct 4.0 % [facility] Comment: Interpretive Data Percent cell count reference ranges are not reported, since discordance with absolute values may lead to misinterpretation of CBC data. Current Interpretive Data was last revised on 2018. Lymphocyte pct 19.4 % [facility] Comment: Interpretive Data Percent cell count reference ranges are not reported, since discordance with absolute values may lead to misinterpretation of CBC data. Current Interpretive Data was last revised on 2018. Monocyte pct 9.9 % [facility] Comment: Interpretive Data Percent cell count reference ranges are not reported, since discordance with absolute values may lead to misinterpretation of CBC data. Current Interpretive Data was last revised on 2018. Eosinophil pct 3.5 % [facility] Comment: Interpretive Data Percent cell count reference ranges are not reported, since discordance with absolute values may lead to misinterpretation of CBC data. Current Interpretive Data was last revised on 2018. Basophil pct 0.4 % [facility] Comment: Interpretive Data Percent cell count reference ranges are not reported, since discordance with absolute values may lead to misinterpretation of CBC data. Current Interpretive Data was last revised on 2018. Blood 10/04/2024 6:24 AM [employer]ITE [employer]ISHER 10/04/2024 6:46 AM GR[employer]ITE [employer]ISHER us Yoseph Golden MD LAB BLOOD ORDERABLES Final Resul t [facility] Department [place] [address] * (ABNORMAL) CBC with auto differential (10/04/2024 6:24 AM GR[employer]ITE POLISHER) WBC 11.1(H) 3.8 - 9.9 K/cumm Hgb 7.9(L) 13.0 - 17.5 g/dL [facility] Hct 26.2(L) 38.9 - 50.3 % [facility] Plt 435(H) 150 - 400 K/cumm [facility] MPV 10.3 9.1 - 12.3 fL [facility] RBC 3.56(L) 4.30 - 5.80 M/cumm [facility] MCV 73.6(L) 81.3 - 96.4 fL [facility] MCH 22.2(L) 27.1 - 33.3 pg [facility] MCHC 30.2(L) 32.3 - 35.7 g/dL [facility] RDW CV 18.8(H) 11.1 - 14.9 % [facility] RDW SD 47.9 35.7 - 48.1 fL [facility] NRBC abs 0.00 0.00 - 0.01 K/cumm [facility] Blood 10/04/2024 6:24 AM [employer]ITE [employer]ER 10/04/2024 6:46 AM [employer]ITE [employer]ISHER Yoseph Golden MD LAB BLOOD ORDERABLES Final Resul t [facility] [place] [address] * Phosphorus (10/04/2024 6:24 AM GR[employer]ITE POLISHER) Pathologist [facility] Phosphorus, pl 3.4 2.3 - 4.5 mg/dL Blood 10/04/2024 6:24 AM [employer]ISHER 10/04/2024 6:49 AM [employer]ITE [employer]ISHER Kathia Ruiz MD LAB BLOOD ORDERABLES Jessica l Result [facility] [place] [address] * Magnesium (10/04/2024 6:24 AM GR[employer]ITE POLISHER) Magnesium 2.1 1.4 - 2.5 mg/dL Blood 10/04/2024 6:24 AM [employer]ER 10/04/2024 6:49 AM GR[employer]ITE [employer]ISHER us Kathia Ruiz MD LAB BLOOD ORDERABLES Jessica nancy Result [facility] [place] [address] * (ABNORMAL) Comprehensive metabolic panel (10/03/2024 5:42 AM GR[employer]ITE POLISHER) Pathologist [facility] Sodium 138 135 - 145 mmol/L Potassium, pl 4.0 3.3 - 4.9 mmol/L [facility] Chloride 109 97 - 110 mmol/L [facility] CO2 23 22 - 32 mmol/L [facility] Anion gap 6 2 - 15 mmol/L [facility] BUN 13 6 - 25 mg/dL [facility] Creatinine 0.58(L) 0.80 - 1.30 mg/dL [facility] Glucose 87 70 - 199 mg/dL [facility] Comment: Interpretive Data Fasting glucose >/= 126 [...] 2022. Calcium 8.2(L) 8.5 - 10.3 mg/dL [facility] Bilirubin, total <0.2 0.1 - 1.2 mg/dL [facility] Protein, pl 6.8 6.5 - 8.5 g/dL [facility] Albumin 2.6(L) 3.5 - 5.0 g/dL [facility] Alk phos 97 40 - 130 Units/L [facility] ALT 19 7 - 55 Units/L [facility] AST 18 10 - 50 Units/L [facility] Blood 10/03/2024 5:42 AM [employer]ER 10/03/2024 6:29 AM [employer]ITE [employer]ER Yoseph Golden MD LAB BLOOD ORDERABLES Final Resul t Performing Organization Address [facility] Co de Phone Number [facility] [place] [address] * eGFR (10/03/2024 5:42 AM GR[employer]ITE POLISHER) eGFR >90 >=60 mL/min/1. 73 m2 Comment: [...] last reviewed 2021. Blood 10/03/2024 5:42 AM [employer]ISHER 10/03/2024 6:39 AM [employer]ITE [employer]ISHER Yoseph Golden MD LAB BLOOD ORDERABLES Final Resul t Performing Organization Address City/[facility]/ZIP Co de Phone Number JUAN RONQUILLO [facility] [place] [address] * (ABNORMAL) Differential, auto (10/03/2024 5:42 AM GR[employer] POLISHER) Neutrophil abs 7.7(H) 1.5 - 6.5 K/cumm Imm gran abs 0.6(H) 0.0 - 0.1 K/cumm [facility] Lymphocyte abs 2.3 0.8 - 3.3 K/cumm [facility] Monocyte abs 1.1(H) 0.2 - 0.8 K/cumm [facility] Eosinophil abs 0.4 0.0 - 0.5 K/cumm [facility] Basophil abs 0.0 0.0 - 0.1 K/cumm [facility] Neutrophil pct 63.6 % [facility] Comment: Interpretive Data Percent cell count reference ranges are not reported, since discordance with absolute values may lead to misinterpretation of CBC data. Current Interpretive Data was last revised on 2018. Imm gran pct 5.2 % [facility] Comment: Interpretive Data Percent cell count reference ranges are not reported, since discordance with absolute values may lead to misinterpretation of CBC data. Current Interpretive Data was last revised on 2018. Lymphocyte pct 19.2 % [facility] Comment: Interpretive Data Percent cell count reference ranges are not reported, since discordance with absolute values may lead to misinterpretation of CBC data. Current Interpretive Data was last revised on 2018. Monocyte pct 8.8 % [facility] Comment: Interpretive Data Percent cell count reference ranges are not reported, since discordance with absolute values may lead to misinterpretation of CBC data. Current Interpretive Data was last revised on 2018. Eosinophil pct 3.0 % [facility] Comment: Interpretive Data Percent cell count reference ranges are not reported, since discordance with absolute values may lead to misinterpretation of CBC data. Current Interpretive Data was last revised on 2018. Basophil pct 0.2 % [facility] Comment: Interpretive Data Percent cell count reference ranges are not reported, since discordance with absolute values may lead to misinterpretation of CBC data. Current Interpretive Data was last revised on 2018. Blood 10/03/2024 5:42 AM [employer]ISHER 10/03/2024 6:18 AM [employer]ITE [employer]ISHER Yoseph Golden MD LAB BLOOD ORDERABLES Final Resul t Performing Organization Address [facility] de Phone Number [facility] [place] [address] * (ABNORMAL) CBC with auto differential (10/03/2024 5:42 AM GR[employer]ITE POLISHER) Pathologist [facility] WBC 12.1(H) 3.8 - 9.9 K/cumm Hgb 7.8(L) 13.0 - 17.5 g/dL [facility] Hct 25.7(L) 38.9 - 50.3 % [facility] Plt 439(H) 150 - 400 K/cumm [facility] MPV 10.5 9.1 - 12.3 fL [facility] RBC 3.45(L) 4.30 - 5.80 M/cumm [facility] MCV 74.5(L) 81.3 - 96.4 fL [facility] MCH 22.6(L) 27.1 - 33.3 pg [facility] MCHC 30.4(L) 32.3 - 35.7 g/dL [facility] RDW CV 18.4(H) 11.1 - 14.9 % [facility] RDW SD 47.9 35.7 - 48.1 fL [facility] NRBC abs 0.00 0.00 - 0.01 K/cumm [facility] Blood 10/03/2024 5:42 AM GR[employer]ISHER 10/03/2024 6:18 AM [employer]ITE [employer]ISHER Yoseph Golden MD LAB BLOOD ORDERABLES Final Resul t Performing Organization Address [facility] Co de Phone Number [facility] [place] [employer] [place] [place] [address] * Phosphorus (10/03/2024 5:42 AM GR[employer]ITE POLISHER) Phosphorus, pl 3.2 2.3 - 4.5 mg/dL Blood 10/03/2024 5:42 AM [employer]ISHER 10/03/2024 6:29 AM [employer]ITE [employer]ISHER Kathia Ruiz MD LAB BLOOD ORDERABLES Jessica l Result Performing Organization Address [facility] Co de Phone Number [facility] [place] [address] * Magnesium (10/03/2024 5:42 AM GR[employer]ITE POLISHER) Pathologist [facility] Magnesium 2.1 1.4 - 2.5 mg/dL Blood 10/03/2024 5:42 AM [employer]ISHER 10/03/2024 6:29 AM [employer]ITE [employer]ISHER Kathia Ruiz MD LAB BLOOD ORDERABLES Jessica l Result Performing Organization Address [facility] de Phone Number [facility] [place] [employer] [place] [place] [address] * (ABNORMAL) Prealbumin (10/03/2024 5:42 AM GR[employer] POLISHER) Pathologist [facility] Prealbumin 14.0(L) 20.0 - 40.0 mg/dL Blood 10/03/2024 5:42 AM [employer]ISHER 10/03/2024 6:18 AM [employer]ITE [employer]ISHER Yoseph Golden MD LAB BLOOD ORDERABLES Final Resul t Performing Organization Address [facility] Co de Phone Number [facility] [employer] [place] [place] [address] * Magnesium (10/02/2024 2:24 AM GR[employer]ITE POLISHER) Magnesium 1.9 1.4 - 2.5 mg/dL Blood 10/02/2024 2:24 AM [employer]ISHER 10/02/2024 3:49 AM [employer]ITE [employer]ISHER us Kathia Ruiz MD LAB BLOOD ORDERABLES Jessica l Result Performing Organization Address [facility] Co de Phone Number JUAN RONQUILLO [facility] [place] [address] * eGFR (10/02/2024 2:24 AM GR[employer]ITE POLISHER) eGFR >90 >=60 mL/min/1. 73 m2 Comment: [...] last reviewed 2021. Blood 10/02/2024 2:24 AM [employer]ISHER 10/02/2024 3:49 AM [employer]ISHER Kathia Ruiz MD LAB BLOOD ORDERABLES Jessica l Result Performing Organization Address [facility] Co de Phone Number [facility] RONQUILL[facility] [place] [address] * (ABNORMAL) Differential, auto (10/02/2024 2:24 AM [employer]ER) Neutrophil abs 6.4 1.5 - 6.5 K/cumm Imm gran abs 0.5(H) 0.0 - 0.1 K/cumm [facility] Lymphocyte abs 2.3 0.8 - 3.3 K/cumm [facility] Monocyte abs 0.6 0.2 - 0.8 K/cumm [facility] Eosinophil abs 0.2 0.0 - 0.5 K/cumm [facility] Basophil abs 0.0 0.0 - 0.1 K/cumm [facility] Neutrophil pct 63.5 % [facility] Comment: Interpretive Data Percent cell count reference ranges are not reported, since discordance with absolute values may lead to misinterpretation of CBC data. Current Interpretive Data was last revised on 2018. Imm gran pct 4.7 % [facility] Comment: Interpretive Data Percent cell count reference ranges are not reported, since discordance with absolute values may lead to misinterpretation of CBC data. Current Interpretive Data was last revised on 2018. Lymphocyte pct 22.9 % [facility] Comment: Interpretive Data Percent cell count reference ranges are not reported, since discordance with absolute values may lead to misinterpretation of CBC data. Current Interpretive Data was last revised on 2018. Monocyte pct 6.2 % [facility] Comment: Interpretive Data Percent cell count reference ranges are not reported, since discordance with absolute values may lead to misinterpretation of CBC data. Current Interpretive Data was last revised on 2018. Eosinophil pct 2.4 % [facility] Comment: Interpretive Data Percent cell count reference ranges are not reported, since discordance with absolute values may lead to misinterpretation of CBC data. Current Interpretive Data was last revised on 2018. Basophil pct 0.3 % [facility] Comment: Interpretive Data Percent cell count reference ranges are not reported, since discordance with absolute values may lead to misinterpretation of CBC data. Current Interpretive Data was last revised on 2018. Blood 10/02/2024 2:24 AM [employer] 10/02/2024 3:49 AM [employer]ER Kathia Ruiz MD LAB BLOOD ORDERABLES Jessica l Result [facility] [place] [address] * (ABNORMAL) CBC with auto differential (10/02/2024 2:24 AM [employer]ER) WBC 10.1(H) 3.8 - 9.9 K/cumm Hgb 7.7(L) 13.0 - 17.5 g/dL [facility] Hct 26.3(L) 38.9 - 50.3 % [facility] Plt 419(H) 150 - 400 K/cumm [facility] MPV 10.6 9.1 - 12.3 fL [facility] RBC 3.58(L) 4.30 - 5.80 M/cumm [facility] MCV 73.5(L) 81.3 - 96.4 fL [facility] MCH 21.5(L) 27.1 - 33.3 pg [facility] MCHC 29.3(L) 32.3 - 35.7 g/dL [facility] RDW CV 18.0(H) 11.1 - 14.9 % [facility] RDW SD 47.5 35.7 - 48.1 fL [facility] NRBC abs 0.00 0.00 - 0.01 K/cumm [facility] Blood 10/02/2024 2:24 AM [employer] 10/02/2024 3:49 AM [employer]ER Kathia Ruiz MD LAB BLOOD ORDERABLES Jessica l Result [facility] [place] [address] * (ABNORMAL) Basic metabolic panel (10/02/2024 2:24 AM [employer]ER) Sodium 134(L) 135 - 145 mmol/L Potassium, pl 3.8 3.3 - 4.9 mmol/L [facility] Chloride 107 97 - 110 mmol/L [facility] CO2 23 22 - 32 mmol/L [facility] Anion gap 4 2 - 15 mmol/L [facility] BUN 9 6 - 25 mg/dL [facility] Creatinine 0.65(L) 0.80 - 1.30 mg/dL [facility] Glucose 121 70 - 199 mg/dL [facility] Comment: Interpretive Data Fasting glucose >/= 126 [...] 2022. Calcium 7.8(L) 8.5 - 10.3 mg/dL [facility] Blood 10/02/2024 2:24 AM [employer] 10/02/2024 3:49 AM [employer]ER Kathia Ruiz MD LAB BLOOD ORDERABLES Jessica cruz Result [facility] [place] [address] * eGFR (10/01/2024 2:22 AM [employer]) eGFR >90 >=60 mL/min/1. 73 m2 Comment: [...] last reviewed 2021. Blood 10/01/2024 2:22 AM [employer] 10/01/2024 2:49 AM [employer]ER us Kathia Ruiz MD LAB BLOOD ORDERABLES Jessica cruz Result [facility] [place] [address] * (ABNORMAL) Differential, auto (10/01/2024 2:22 AM [employer]) Neutrophil abs 7.5(H) 1.5 - 6.5 K/cumm Imm gran abs 0.5(H) 0.0 - 0.1 K/cumm [facility] Lymphocyte abs 2.1 0.8 - 3.3 K/cumm [facility] Monocyte abs 0.8 0.2 - 0.8 K/cumm [facility] Eosinophil abs 0.2 0.0 - 0.5 K/cumm [facility] Basophil abs 0.0 0.0 - 0.1 K/cumm [facility] Neutrophil pct 67.6 % [facility] Comment: Interpretive Data Percent cell count reference ranges are not reported, since discordance with absolute values may lead to misinterpretation of CBC data. Current Interpretive Data was last revised on 2018. Imm gran pct 4.1 % [facility] Comment: Interpretive Data Percent cell count reference ranges are not reported, since discordance with absolute values may lead to misinterpretation of CBC data. Current Interpretive Data was last revised on 2018. Lymphocyte pct 19.2 % [facility] Comment: Interpretive Data Percent cell count reference ranges are not reported, since discordance with absolute values may lead to misinterpretation of CBC data. Current Interpretive Data was last revised on 2018. Monocyte pct 7.0 % [facility] Comment: Interpretive Data Percent cell count reference ranges are not reported, since discordance with absolute values may lead to misinterpretation of CBC data. Current Interpretive Data was last revised on 2018. Eosinophil pct 1.8 % [facility] Comment: Interpretive Data Percent cell count reference ranges are not reported, since discordance with absolute values may lead to misinterpretation of CBC data. Current Interpretive Data was last revised on 2018. Basophil pct 0.3 % [facility] Comment: Interpretive Data Percent cell count reference ranges are not reported, since discordance with absolute values may lead to misinterpretation of CBC data. Current Interpretive Data was last revised on 2018. Blood 10/01/2024 2:22 AM [employer]ITE [employer] 10/01/2024 2:49 AM [employer]ITE [employer]ISHER Kathia Ruiz MD LAB BLOOD ORDERABLES Jessica cruz Result [facility] [place] [address] * (ABNORMAL) Protime-INR (10/01/2024 2:22 AM GR[employer]ITE [employer]ISHER) PT 15.9(H) 9.7 - 13.0 sec INR 1.46(H) 0.90 - 1.20 [facility] Comment: Interpretive data Oral anticoagulant therapeutic ranges: Venous thromboembolism prophylaxis or treatment: 2.0-3.0 CARDIOLOGY Standard range: 2.0-3.0 High-intensity range: 2.5-3.5 Refer to indication-specific guidelines for appropriate target ranges for prosthetic heart valve replacement. Current interpretive data was last revised on 2019. Blood 10/01/2024 2:22 AM [employer]ITE [employer]ISHER 10/01/2024 2:54 AM [employer]ITE [employer]ISHER Kathia Ruiz MD LAB BLOOD ORDERABLES Jessica cruz Result Performing Organization Address [facility] Co de Phone Number [facility] [place] [address] * (ABNORMAL) CBC with auto differential (10/01/2024 2:22 AM [employer]ITE [employer]ISHER) Pathologist [facility] WBC 11.1(H) 3.8 - 9.9 K/cumm Hgb 8.0(L) 13.0 - 17.5 g/dL [facility] Hct 26.7(L) 38.9 - 50.3 % [facility] Plt 434(H) 150 - 400 K/cumm [facility] MPV 10.7 9.1 - 12.3 fL [facility] RBC 3.65(L) 4.30 - 5.80 M/cumm [facility] MCV 73.2(L) 81.3 - 96.4 fL [facility] MCH 21.9(L) 27.1 - 33.3 pg [facility] MCHC 30.0(L) 32.3 - 35.7 g/dL [facility] RDW CV 17.4(H) 11.1 - 14.9 % [facility] RDW SD 46.3 35.7 - 48.1 fL [facility] NRBC abs 0.00 0.00 - 0.01 K/cumm [facility] Blood 10/01/2024 2:22 AM [employer] 10/01/2024 2:49 AM [employer]ITE [employer]ER Kathia Ruiz MD LAB BLOOD ORDERABLES Jessica cruz Result Performing Organization Address City/[facility] Co de Phone Number [facility] [place] [address] * (ABNORMAL) Basic metabolic panel (10/01/2024 2:22 AM GR[employer]ITE POLISHER) Pathologist [facility] Sodium 136 135 - 145 mmol/L Potassium, pl 3.4 3.3 - 4.9 mmol/L [facility] Chloride 105 97 - 110 mmol/L [facility] CO2 23 22 - 32 mmol/L [facility] Anion gap 8 2 - 15 mmol/L [facility] BUN 8 6 - 25 mg/dL [facility] Creatinine 0.70(L) 0.80 - 1.30 mg/dL [facility] Glucose 105 70 - 199 mg/dL [facility] Comment: Interpretive Data Fasting glucose >/= 126 [...] 2022. Calcium 8.0(L) 8.5 - 10.3 mg/dL [facility] Blood 10/01/2024 2:22 AM [employer]ER 10/01/2024 2:49 AM [employer]ITE [employer]ER Kathia Ruiz MD LAB BLOOD ORDERABLES Jessica cruz Result [facility] [place] [address] * (ABNORMAL) aPTT (10/01/2024 2:22 AM [employer]ITE [employer]ISHER) Pathologist [facility] aPTT 39(H) 28 - 38 sec Comment: Interpretive Data Heparin therapeutic range: 66.0 - 100.0 seconds. Range based on correlation with therapeutic heparin activity range of 0.3 - 0.7 Units/mL. Current interpretive data was last revised on 2023. Blood 10/01/2024 2:22 AM [employer]ITE [employer]ISHER 10/01/2024 2:54 AM GR[employer]ITE [employer]ISHER us Kathia Ruiz MD LAB BLOOD ORDERABLES Jessica l Result Performing Organization Address [facility] Co de Phone Number [facility] [place] [address] * eGFR (09/29/2024 4:17 PM [employer]ITE [employer]ISHER) eGFR >90 >=60 mL/min/1. 73 m2 Comment: [...] last reviewed 2021. Blood 09/29/2024 4:17 PM [employer]ITE [employer]ER 09/29/2024 4:57 PM [employer]ITE [employer]ER Kathia Ruiz MD LAB BLOOD ORDERABLES Jessica l Result Performing Organization Address [facility] Co de Phone Number [facility] [place] [address] * (ABNORMAL) Differential, auto (09/29/2024 4:17 PM [employer]ITE [employer]ISHER) Neutrophil abs 8.2(H) 1.5 - 6.5 K/cumm Imm gran abs 0.1 0.0 - 0.1 K/cumm [facility] Lymphocyte abs 0.8 0.8 - 3.3 K/cumm [facility] Monocyte abs 0.3 0.2 - 0.8 K/cumm [facility] Eosinophil abs 0.1 0.0 - 0.5 K/cumm [facility] Basophil abs 0.0 0.0 - 0.1 K/cumm [facility] Neutrophil pct 86.8 % [facility] Comment: Interpretive Data Percent cell count reference ranges are not reported, since discordance with absolute values may lead to misinterpretation of CBC data. Current Interpretive Data was last revised on 2018. Imm gran pct 1.2 % [facility] Comment: Interpretive Data Percent cell count reference ranges are not reported, since discordance with absolute values may lead to misinterpretation of CBC data. Current Interpretive Data was last revised on 2018. Lymphocyte pct 8.0 % [facility] Comment: Interpretive Data Percent cell count reference ranges are not reported, since discordance with absolute values may lead to misinterpretation of CBC data. Current Interpretive Data was last revised on 2018. Monocyte pct 2.6 % [facility] Comment: Interpretive Data Percent cell count reference ranges are not reported, since discordance with absolute values may lead to misinterpretation of CBC data. Current Interpretive Data was last revised on 2018. Eosinophil pct 1.3 % [facility] Comment: Interpretive Data Percent cell count reference ranges are not reported, since discordance with absolute values may lead to misinterpretation of CBC data. Current Interpretive Data was last revised on 2018. Basophil pct 0.1 % [facility] Comment: Interpretive Data Percent cell count reference ranges are not reported, since discordance with absolute values may lead to misinterpretation of CBC data. Current Interpretive Data was last revised on 2018. Blood 09/29/2024 4:17 PM [employer]ITE [employer]ISHER 09/29/2024 4:57 PM [employer]ITE [employer]ER Kathia Ruiz MD LAB BLOOD ORDERABLES Jessica l Result Performing Organization Address [facility] de Phone Number [facility] [place] [address] * (ABNORMAL) Protime-INR (09/29/2024 4:17 PM [employer]ITE [employer]ISHER) [facility] PT 16.1(H) 9.7 - 13.0 sec INR 1.48(H) 0.90 - 1.20 [facility] Comment: Interpretive data Oral anticoagulant therapeutic ranges: Venous thromboembolism prophylaxis or treatment: 2.0-3.0 CARDIOLOGY Standard range: 2.0-3.0 High-intensity range: 2.5-3.5 Refer to indication-specific guidelines for appropriate target ranges for prosthetic heart valve replacement. Current interpretive data was last revised on 2019. Blood 09/29/2024 4:17 PM [employer]ITE [employer]ER 09/29/2024 4:53 PM [employer]ITE [employer]ER Kathia Ruiz MD LAB BLOOD ORDERABLES Jessica l Result Performing Organization Address [facility] de Phone Number [facility] [place] [address] * (ABNORMAL) CBC with auto differential (09/29/2024 4:17 PM GR[employer]ITE [employer]ISHER) [facility] WBC 9.5 3.8 - 9.9 K/cumm Hgb 9.5(L) 13.0 - 17.5 g/dL [facility] Hct 31.3(L) 38.9 - 50.3 % [facility] Plt 357 150 - 400 K/cumm [facility] MPV 10.7 9.1 - 12.3 fL [facility] RBC 4.30 4.30 - 5.80 M/cumm [facility] MCV 72.8(L) 81.3 - 96.4 fL [facility] MCH 22.1(L) 27.1 - 33.3 pg [facility] MCHC 30.4(L) 32.3 - 35.7 g/dL [facility] RDW CV 17.3(H) 11.1 - 14.9 % [facility] RDW SD 45.9 35.7 - 48.1 fL [facility] NRBC abs 0.00 0.00 - 0.01 K/cumm [facility] Blood 09/29/2024 4:17 PM [employer]ITE [employer]ISHER 09/29/2024 4:57 PM [employer]ITE [employer]ER us Kathia Ruiz MD LAB BLOOD ORDERABLES Jessica l Result [facility] [place] [address] * (ABNORMAL) Basic metabolic panel (09/29/2024 4:17 PM [employer]ER) Sodium 138 135 - 145 mmol/L Potassium, pl 3.5 3.3 - 4.9 mmol/L [facility] Chloride 105 97 - 110 mmol/L [facility] CO2 20(L) 22 - 32 mmol/L [facility] Anion gap 13 2 - 15 mmol/L [facility] BUN 10 6 - 25 mg/dL [facility] Creatinine 0.67(L) 0.80 - 1.30 mg/dL [facility] Glucose 104 70 - 199 mg/dL [facility] Comment: Interpretive Data Fasting glucose >/= 126 [...] 2022. Calcium 8.1(L) 8.5 - 10.3 mg/dL [facility] Blood 09/29/2024 4:17 PM [employer]ITE [employer]ISHER 09/29/2024 4:57 PM [employer]ITE [employer]ER Kathia Ruiz MD LAB BLOOD ORDERABLES Jessica l Result Performing Organization Address [facility] Co de Phone Number [facility] [place] [address] * (ABNORMAL) aPTT (09/29/2024 4:17 PM [employer]ITE [employer]ISHER) Pathologist [facility] aPTT 43(H) 28 - 38 sec Comment: Interpretive Data Heparin therapeutic range: 66.0 - 100.0 seconds. Range based on correlation with therapeutic heparin activity range of 0.3 - 0.7 Units/mL. Current interpretive data was last revised on 2023. Blood 09/29/2024 4:1 7 PM [employer]ER 09/29/2024 4:53 PM [employer]ITE [employer]ISHER Kathia Ruiz MD LAB BLOOD ORDERABLES Jessica l Result Performing Organization Address [facility] de Phone Number [facility] [place] [address] * (ABNORMAL) Reticulocyte Count (09/29/2024 4:17 PM GR[employer]ITE POLISHER) [facility] Retics, absolute 0.055 0.020 - 0.087 M/cumm Retics 1.6 0.4 - 2.9 % [facility] Reticulocyte Hgb 20.9(L) 30.5 - 38.0 pg [facility] Blood 09/29/2024 4:17 PM GR[employer]ITE [employer]ISHER 09/29/2024 4:57 PM GR[employer]ITE [employer]ISHER Kathia Ruiz MD LAB BLOOD ORDERABLES Jessica l Result Performing Organization Address [facility] Co de Phone Number [facility] [place] [address] * Vitamin B12 (09/29/2024 4:17 PM GR[employer]ITE [employer]ISHER) Vitamin B12 656 230 - 1,250 pg/mL Blood 09/29/2024 4:17 PM GR[employer]ITE [employer]ISHER 09/29/2024 4:57 PM [employer]ITE [employer]ISHER Kathia Ruiz MD LAB BLOOD ORDERABLES Jessica l Result Performing Organization Address [facility] Co de Phone Number [facility] [place] [address] * (ABNORMAL) Folate (09/29/2024 4:17 PM GR[employer]ITE POLISHER) Pathologist [facility] Folic acid 3.9(L) >=5.0 ng/mL Blood 09/29/2024 4:17 PM GR[employer]ITE [employer]ISHER 09/29/2024 4:57 PM [employer]ITE [employer]ISHER Kathia Ruiz MD LAB BLOOD ORDERABLES Jessica l Result Performing Organization Address [facility] Co de Phone Number [facility] [place] [address] * (ABNORMAL) Ferritin (09/29/2024 4:17 PM GR[employer]ITE POLISHER) Pathologist [facility] Ferritin 649(H) 30 - 400 ng/mL Blood 09/29/2024 4:17 PM GR[employer]ITE [employer]ISHER 09/29/2024 4:57 PM GR[employer]ITE [employer]ISHER Kathia Ruiz MD LAB BLOOD ORDERABLES Jessica l Result Performing Organization Address [facility] Co de Phone Number [facility] [employer] [place] [address] * Mycology (fungal) culture Tissue Sacral (09/29/2024 12:37 PM GR[employer]ITE POLISHER) Pathologist [facility] Report Final Report: No growth of fungus Tissue (Sacral) 09/29/2024 1 2:37 PM [employer]ITE [employer]ISHER 09/29/2024 2:15 PM [employer]ITE POLISHER Narrative [facility] - 10/27/2024 7:59 AM GR[employer]ITE POLISHER Left sacrum Specimen received in anaerobic transport media. Testing performed by [facility] ([phone]). [facility] MICROBIOLOGY - GENERAL ORDERABLES Final Result Performing Organization Address City/[facility]/ZIP Co de Phone Number [facility] [place] [employer] [place] [address] * Tissue aerobic and anaerobic culture and gram stain Tissue Sacral (09/29/2024 12:37 PM GR[employer]ITE POLISHER) Direct Specimen Exam Stain: No polymorphonuclear leukocytes seen. No organisms seen. Report Final Report: No [facility] Tissue (Sacral) 09/29/2024 1 2:37 PM GR[employer]ITE [employer]ISHER 09/29/2024 2:14 PM GR[employer]ITE POLISHER Narrative [facility] - 10/02/2024 10:33 AM GR[employer]ITE POLISHER Left sacrum Specimen received in anaerobic transport media. Testing performed by [facility] ([phone]) Specimens submitted from normally sterile body sites [...] interpretive data was last revised on 2020. [facility] LAB MICROBIOLOGY - GENERAL ORDERABLES Final Result Performing Organization Address City/[facility]/ZIP Co de Phone Number [facility] [place] [employer] [place] [address] * (ABNORMAL) Mycology (fungal) culture Tissue Sacral (09/29/2024 12:26 PM GR[employer]ITE POLISHER) Report Final Report: Renetta albicans (.) Organism [facility] Tissue (Sacral) 09/29/2024 1 2:26 PM GR[employer]ITE POLISHER 09/29/2024 2:01 PM GR[employer]ITE POLISHER Narrative [facility] - 10/27/2024 7:56 AM GR[employer]ITE POLISHER Right sacrum Specimen received in anaerobic transport media. Testing performed by [facility] ([phone]). [facility] LAB MICROBIOLOGY - GENERAL ORDERABLES Final Result Performing Organization Address [facility] Co de Phone Number [facility] Department [place] [employer] [place] [address] * (ABNORMAL) Tissue aerobic and anaerobic culture and gram stain Tissue Sacral (09/29/2024 12:26 PM GR[employer]ITE POLISHER) Direct Specimen Exam Stain: No polymorphonuclear leukocytes seen. No organisms seen. Report Final Report: Few Mixed aerobic and anaerobic microorganisms Includes the following: Rare Renetta albicans (.) [facility] Organism MIXED AEROBIC AND ANAEROBIC MICROORGANISMS [facility] Organism [facility] Tissue (Sacral) 09/29/2024 1 2:26 PM GR[employer]ITE POLISHER 09/29/2024 2:01 PM GRANITE POLISHER Narrative [facility] - 10/02/2024 3:00 PM GR[employer]ITE POLISHER Right sacrum Specimen received in anaerobic transport media. Testing performed by [facility] ([phone]) Specimens submitted from normally sterile body sites [...] interpretive data was last revised on 2020. [facility] MICROBIOLOGY - GENERAL ORDERABLES Final Result Performing Organization Address [facility] Co de Phone Number [facility] [place] [employer] [place] [address] * eGFR (09/29/2024 5:48 AM GR[employer]ITE POLISHER) eGFR >90 >=60 mL/min/1. 73 m2 Comment: [...] last reviewed 2021. Blood 09/29/2024 5:48 AM GR[employer]ITE POLISHER 09/29/2024 6:22 AM GR[employer]ITE POLISHER us Kathia Ruiz MD LAB BLOOD ORDERABLES Jessica cruz Result [facility] Department of Laboratories [place], [place] [id number] * (ABNORMAL) Differential, auto (09/29/2024 5:48 AM GRANITE POLISHER) Pathologist [facility] Neutrophil abs 9.0(H) 1.5 - 6.5 K/cumm Imm gran abs 0.1 0.0 - 0.1 K/cumm [facility] Lymphocyte abs 1.1 0.8 - 3.3 K/cumm [facility] Monocyte abs 0.6 0.2 - 0.8 K/cumm [facility] Eosinophil abs 0.4 0.0 - 0.5 K/cumm [facility] Basophil abs 0.0 0.0 - 0.1 K/cumm [facility] Neutrophil pct 80.1 % [facility] Comment: Interpretive Data Percent cell count reference ranges are not reported, since discordance with absolute values may lead to misinterpretation of CBC data. Current Interpretive Data was last revised on 2018. Imm gran pct 1.1 % [facility] Comment: Interpretive Data Percent cell count reference ranges are not reported, since discordance with absolute values may lead to misinterpretation of CBC data. Current Interpretive Data was last revised on 2018. Lymphocyte pct 10.1 % [facility] Comment: Interpretive Data Percent cell count reference ranges are not reported, since discordance with absolute values may lead to misinterpretation of CBC data. Current Interpretive Data was last revised on 2018. Monocyte pct 5.1 % [facility] Comment: Interpretive Data Percent cell count reference ranges are not reported, since discordance with absolute values may lead to misinterpretation of CBC data. Current Interpretive Data was last revised on 2018. Eosinophil pct 3.4 % [facility] Comment: Interpretive Data Percent cell count reference ranges are not reported, since discordance with absolute values may lead to misinterpretation of CBC data. Current Interpretive Data was last revised on 2018. Basophil pct 0.2 % [facility] Comment: Interpretive Data Percent cell count reference ranges are not reported, since discordance with absolute values may lead to misinterpretation of CBC data. Current Interpretive Data was last revised on 2018. Blood 09/29/2024 5:48 AM GR[employer]ITE POLISHER 09/29/2024 6:23 AM GR[employer]ITE POLISHER us Kathia Ruiz MD LAB BLOOD ORDERABLES Jessica cruz Result [facility] [place] [address] * (ABNORMAL) Protime-INR (09/29/2024 5:48 AM GRANITE POLISHER) Pathologist [facility] PT 16.3(H) 9.7 - 13.0 sec INR 1.50(H) 0.90 - 1.20 [facility] Comment: Interpretive data Oral anticoagulant therapeutic ranges: Venous thromboembolism prophylaxis or treatment: 2.0-3.0 CARDIOLOGY Standard range: 2.0-3.0 High-intensity range: 2.5-3.5 Refer to indication-specific guidelines for appropriate target ranges for prosthetic heart valve replacement. Current interpretive data was last revised on 2019. Blood 09/29/2024 5:48 AM GR[employer]ITE POLISHER 09/29/2024 6:09 AM GR[employer]ITE POLISHER us Kathia Ruiz MD LAB BLOOD ORDERABLES Jessica cruz Result [facility] [place] [address] * (ABNORMAL) CBC with auto differential (09/29/2024 5:48 AM GR[employer]ITE POLISHER) [facility] WBC 11.2(H) 3.8 - 9.9 K/cumm Hgb 8.2(L) 13.0 - 17.5 g/dL [facility] Hct 27.1(L) 38.9 - 50.3 % [facility] Plt 391 150 - 400 K/cumm [facility] MPV 10.8 9.1 - 12.3 fL [facility] RBC 3.70(L) 4.30 - 5.80 M/cumm [facility] MCV 73.2(L) 81.3 - 96.4 fL [facility] MCH 22.2(L) 27.1 - 33.3 pg [facility] MCHC 30.3(L) 32.3 - 35.7 g/dL [facility] RDW CV 17.2(H) 11.1 - 14.9 % [facility] RDW SD 45.8 35.7 - 48.1 fL [facility] NRBC abs 0.00 0.00 - 0.01 K/cumm [facility] Blood 09/29/2024 5:48 AM GR[employer]ITE POLISHER 09/29/2024 6:23 AM [employer]ITE [employer]ISHER Kathia Ruiz MD LAB BLOOD ORDERABLES Jessica l Result Performing Organization Address [facility]/ZIP Co de Phone Number [facility] [place] [address] * (ABNORMAL) Basic metabolic panel (09/29/2024 5:48 AM GRANITE POLISHER) [facility] Sodium 136 135 - 145 mmol/L Potassium, pl 3.5 3.3 - 4.9 mmol/L [facility] Chloride 102 97 - 110 mmol/L [facility] CO2 23 22 - 32 mmol/L [facility] Anion gap 11 2 - 15 mmol/L [facility] BUN 9 6 - 25 mg/dL [facility] Creatinine 0.71(L) 0.80 - 1.30 mg/dL [facility] Glucose 90 70 - 199 mg/dL [facility] Comment: Interpretive Data Fasting glucose >/= 126 [...] 2022. Calcium 8.2(L) 8.5 - 10.3 mg/dL [facility] Blood 09/29/2024 5:48 AM GR[employer]ITE POLISHER 09/29/2024 6:22 AM GR[employer]ITE POLISHER Kathia Ruiz MD LAB BLOOD ORDERABLES Jessica l Result Performing Organization Address [facility]/ZIP Co de Phone Number [facility] Department [place] [employer] [place] [address] * aPTT (09/29/2024 5:48 AM GRANITE POLISHER) Pathologist [facility] aPTT 33 28 - 38 sec Comment: Interpretive Data Heparin therapeutic range: 66.0 - 100.0 seconds. Range based on correlation with therapeutic heparin activity range of 0.3 - 0.7 Units/mL. Current interpretive data was last revised on 2023. Blood 09/29/2024 5:48 AM GR[employer]ITE [employer]ISHER 09/29/2024 6:09 AM GR[employer]ITE POLISHER Kathia Ruiz MD LAB BLOOD ORDERABLES Jessica l Result [facility] [place] [address] * (ABNORMAL) CBC without differential (09/28/2024 9:26 PM GRANITE POLISHER) [facility] WBC 14.9(H) 3.8 - 9.9 K/cumm Hgb 8.3(L) 13.0 - 17.5 g/dL [facility] Hct 27.5(L) 38.9 - 50.3 % [facility] Plt 388 150 - 400 K/cumm [facility] MPV 11.1 9.1 - 12.3 fL [facility] RBC 3.75(L) 4.30 - 5.80 M/cumm [facility] MCV 73.3(L) 81.3 - 96.4 fL [facility] MCH 22.1(L) 27.1 - 33.3 pg [facility] MCHC 30.2(L) 32.3 - 35.7 g/dL [facility] RDW CV 17.2(H) 11.1 - 14.9 % [facility] RDW SD 45.5 35.7 - 48.1 fL [facility] NRBC abs 0.00 0.00 - 0.01 K/cumm [facility] Blood 09/28/2024 9:26 PM GR[employer]ITE POLISHER 09/28/2024 10:09 PM GR[employer]ITE POLISHER us Kathia Ruiz MD LAB BLOOD ORDERABLES Jessica l Result Performing Organization Address [facility] Co de Phone Number [facility] [place] [address] * eGFR (09/28/2024 1:54 PM GR[employer]ITE POLISHER) eGFR >90 >=60 mL/min/1. 73 m2 Comment: [...] last reviewed 2021. Blood 09/28/2024 1:54 PM GR[employer]ITE POLISHER 09/28/2024 2:19 PM GR[employer]ITE POLISHER us Kathia Ruiz MD LAB BLOOD ORDERABLES Jessica l Result Performing Organization Address [facility] Co de Phone Number [facility] [place] [address] * (ABNORMAL) Differential, auto (09/28/2024 1:54 PM GR[employer]ITE POLISHER) Neutrophil abs 13.6(H) 1.5 - 6.5 K/cumm Imm gran abs 0.2(H) 0.0 - 0.1 K/cumm [facility] Lymphocyte abs 0.8 0.8 - 3.3 K/cumm [facility] Monocyte abs 0.7 0.2 - 0.8 K/cumm [facility] Eosinophil abs 0.3 0.0 - 0.5 K/cumm [facility] Basophil abs 0.0 0.0 - 0.1 K/cumm [facility] Neutrophil pct 87.8 % [facility] Comment: Interpretive Data Percent cell count reference ranges are not reported, since discordance with absolute values may lead to misinterpretation of CBC data. Current Interpretive Data was last revised on 2018. Imm gran pct 1.0 % [facility] Comment: Interpretive Data Percent cell count reference ranges are not reported, since discordance with absolute values may lead to misinterpretation of CBC data. Current Interpretive Data was last revised on 2018. Lymphocyte pct 5.1 % [facility] Comment: Interpretive Data Percent cell count reference ranges are not reported, since discordance with absolute values may lead to misinterpretation of CBC data. Current Interpretive Data was last revised on 2018. Monocyte pct 4.3 % [facility] Comment: Interpretive Data Percent cell count reference ranges are not reported, since discordance with absolute values may lead to misinterpretation of CBC data. Current Interpretive Data was last revised on 2018. Eosinophil pct 1.6 % [facility] Comment: Interpretive Data Percent cell count reference ranges are not reported, since discordance with absolute values may lead to misinterpretation of CBC data. Current Interpretive Data was last revised on 2018. Basophil pct 0.2 % [facility] Comment: Interpretive Data Percent cell count reference ranges are not reported, since discordance with absolute values may lead to misinterpretation of CBC data. Current Interpretive Data was last revised on 2018. Blood 09/28/2024 1:54 PM [employer]ITE [employer] 09/28/2024 2:19 PM [employer]ITE [employer]ER Kathia Ruiz MD LAB BLOOD ORDERABLES Jessica l Result Performing Organization Address City/[facility] Co de Phone Number [facility] [place] [employer] [place] [address] * Potassium, whole blood (09/28/2024 1:54 PM [employer]ITE POLISHER) Potassium, bld 3.4 3.3 - 4.9 mmol/L Blood 09/28/2024 1:54 PM [employer]ITE [employer]ER 09/28/2024 2:12 PM [employer]ITE [employer]ER Kathia Ruiz MD LAB BLOOD ORDERABLES Jessica l Result Performing Organization Address [facility] [place] [address] * (ABNORMAL) Hemoglobin A1c (09/28/2024 1:54 PM [employer]ISHER) Hgb A1C 5.8(H) 4.0 - 5.6 % Estimated Average Glucose 120 mg/dL [facility] Comment: The ADA recommends reporting an estimated Average Glucose (eAG) with all Hemoglobin A1c results using the equation derived from a study of 507 normal and diabetic adults. ??Minority populations were underrepresented and children were not included. ?? (Diabetes Care 2020; 43(S1): S66-S76). ??The eAG is not equivalent to a fasting glucose. Blood 09/28/2024 1:54 PM [employer]ITE [employer]ISHER 09/28/2024 2:19 PM [employer]ITE [employer]ER Kathia Ruiz MD LAB BLOOD ORDERABLES Jessica l Result Performing Organization Address [facility] [place] [address] * (ABNORMAL) Comprehensive metabolic panel (09/28/2024 1:54 PM GR[employer]ITE POLISHER) Sodium 135 135 - 145 mmol/L Potassium, pl 3.4 3.3 - 4.9 mmol/L [facility] Chloride 101 97 - 110 mmol/L [facility] CO2 22 22 - 32 mmol/L [facility] Anion gap 12 2 - 15 mmol/L [facility] BUN 7 6 - 25 mg/dL [facility] Creatinine 0.74(L) 0.80 - 1.30 mg/dL [facility] Glucose 86 70 - 199 mg/dL [facility] Comment: Interpretive Data Fasting glucose >/= 126 [...] 2022. Calcium 8.2(L) 8.5 - 10.3 mg/dL [facility] Bilirubin, total 0.4 0.1 - 1.2 mg/dL [facility] Protein, pl 7.1 6.5 - 8.5 g/dL [facility] Albumin 2.7(L) 3.5 - 5.0 g/dL [facility] Alk phos 104 40 - 130 Units/L [facility] ALT 36 7 - 55 Units/L [facility] AST 19 10 - 50 Units/L [facility] Blood 09/28/2024 1:54 PM [employer] 09/28/2024 2:19 PM [employer]ITE [employer]ER us Kathia Ruiz MD LAB BLOOD ORDERABLES Jessica cruz Result [facility] Department [place] [address] * (ABNORMAL) CBC with auto differential (09/28/2024 1:54 PM [employer]ITE [employer]ISHER) WBC 15.4(H) 3.8 - 9.9 K/cumm Hgb 8.1(L) 13.0 - 17.5 g/dL [facility] Hct 26.5(L) 38.9 - 50.3 % [facility] Plt 377 150 - 400 K/cumm [facility] MPV 10.7 9.1 - 12.3 fL [facility] RBC 3.57(L) 4.30 - 5.80 M/cumm [facility] MCV 74.2(L) 81.3 - 96.4 fL [facility] MCH 22.7(L) 27.1 - 33.3 pg [facility] MCHC 30.6(L) 32.3 - 35.7 g/dL [facility] RDW CV 17.0(H) 11.1 - 14.9 % [facility] RDW SD 46.5 35.7 - 48.1 fL [facility] NRBC abs 0.00 0.00 - 0.01 K/cumm [facility] Blood 09/28/2024 1:54 PM [employer]ITE [employer]ER 09/28/2024 2:19 PM [employer]ITE [employer]ER us Kathia Ruiz MD LAB BLOOD ORDERABLES Jessica cruz Result [facility] [place] [address] * (ABNORMAL) Protime-INR (09/28/2024 1:54 PM [employer]ITE [employer]ISHER) PT 16.8(H) 9.7 - 13.0 sec INR 1.54(H) 0.90 - 1.20 [facility] Comment: Interpretive data Oral anticoagulant therapeutic ranges: Venous thromboembolism prophylaxis or treatment: 2.0-3.0 CARDIOLOGY Standard range: 2.0-3.0 High-intensity range: 2.5-3.5 Refer to indication-specific guidelines for appropriate target ranges for prosthetic heart valve replacement. Current interpretive data was last revised on 2019. Blood 09/28/2024 1:54 PM [employer]ITE [employer]ER 09/28/2024 2:15 PM [employer]ITE [employer]ER Kathia Ruiz MD LAB BLOOD ORDERABLES Jessica l Result Performing Organization Address [facility] de Phone Number [facility] [place] [address] * aPTT (09/28/2024 1:54 PM [employer]ITE [employer]ISHER) aPTT 33 28 - 38 sec Comment: Interpretive Data Heparin therapeutic range: 66.0 - 100.0 seconds. Range based on correlation with therapeutic heparin activity range of 0.3 - 0.7 Units/mL. Current interpretive data was last revised on 2023. Blood 09/28/2024 1:54 PM [employer]ITE [employer]ISHER 09/28/2024 2:15 PM [employer]ITE [employer]ER Kathia Ruiz MD LAB BLOOD ORDERABLES Jessica l Result Performing Organization Address [facility] de Phone Number [facility] [place] [address] * Osmolality, blood (09/28/2024 1:54 PM GR[employer]ITE POLISHER) Pathologist [facility] Osmo 276 275 - 300 mOsm/kg Blood 09/28/2024 1:54 PM [employer]ITE [employer]ISHER 09/28/2024 2:19 PM [employer]ER Kathia Ruiz MD LAB BLOOD ORDERABLES Jessica l Result Performing Organization Address [facility] de Phone Number [facility] [place] [address] * Type and screen (09/28/2024 1:54 PM [employer]ITE [employer]ISHER) ABO Rh A Positive Pb, indirect Negative [facility] Blood 09/28/2024 1:54 PM [employer]ITE [employer]ISHER 09/28/2024 2:21 PM [employer]ITE [employer]ISHER Narrative [facility] - 09/28/2024 3:24 PM [employer]ITE [employer]ISHER Has the patient had Daratumumab or Isatuximab in the past 6 months?->Unknown Kathia Ruiz MD LAB BLOOD BANK TEST ORDER WHITNEY Final Result Performing Organization Address [facility] Co de Phone Number [facility] [place] [address] * (ABNORMAL) Iron profile w/ IBC (09/28/2024 1:54 PM [employer]ISHER) Iron 10(L) 50 - 150 mcg/dL TIBC 106(L) 250 - 400 mcg/dL [facility] Transferrin saturation 9(L) 20 - 50 % [facility] Blood 09/28/2024 1:54 PM [employer]ITE [employer]ER 09/28/2024 2:19 PM [employer]ER Kathia Ruiz MD LAB BLOOD ORDERABLES Jessica l Result Performing Organization Address [facility] Co de Phone Number [facility] [place] [address] * Urine culture Urine, in and out catheter (09/28/2024 1:35 PM GR[employer]ITE POLISHER) Pathologist [facility] Report Final Report: Less than 10,000 colonies/mL (clinically insignificant growth based on current clinical standards) Organism (CLINICALLY INSIGNIFICANT GROWTH [facility] Urine, in and out catheter 09/28/2024 1:35 PM [employer]ER 09/28/2024 4:19 PM [employer]ITE [employer]ISHER Narrative [facility] - 09/29/2024 5:12 PM [employer]ITE [employer]ER Indications for Culture:->Recent positive UA Specimen received in a sterile container. Testing performed by [facility] ([phone]) Kathia Ruiz MD LAB MICROBIOLOGY - GENERA L ORDERABLES Final Result Performing Organization Address [facility]/ZIP Co de Phone Number [facility] [place] [address] * Urea nitrogen, urine, random (09/28/2024 1:07 PM [employer]ISHER) Urea nitrogen, ur 665 mg/dL Comment: Interpretive Data No reference range established. Current interpretive data was last revised 2019. Urine 09/28/2024 1:07 PM [employer]ER 09/28/2024 4:14 PM [employer]ITE [employer]ER Kathia Ruiz MD LAB URINE ORDERABLES Jessica l Result Performing Organization Address [facility] [place] [address] * Sodium, urine, random (09/28/2024 1:07 PM [employer]ER) Sodium, ur 21 mmol/L Comment: Interpretive Data No reference range established. Current interpretive data was last revised 2019. Urine 09/28/2024 1:07 PM [employer]ITE [employer]ER 09/28/2024 4:14 PM [employer]ITE [employer]ER Kathia Ruiz MD LAB URINE ORDERABLES Jessica l Result Performing Organization Address [facility] Co de Phone Number [facility] [place] [address] * Osmolality, urine (09/28/2024 1:07 PM [employer]ISHER) Osmo, ur 631 mOsm/kg Urine 09/28/2024 1:07 PM GR[employer]ITE [employer]ISHER 09/28/2024 4:12 PM [employer]ITE [employer]ISHER Kathia Ruiz MD LAB URINE ORDERABLES Jessica l Result Performing Organization Address [facility] Co de Phone Number [facility] [place] [address] * Creatinine, urine, random (09/28/2024 1:07 PM GR[employer]ITE POLISHER) Pathologist [facility] Creatinine Ur 185.5 mg/dL Comment: Interpretive Data No reference range established. Current interpretive data was last revised 2019. Urine 09/28/2024 1:07 PM GR[employer]ITE [employer]ISHER 09/28/2024 4:14 PM [employer]ITE [employer]ISHER Kathia Ruiz MD LAB URINE ORDERABLES Jessica l Result Performing Organization Address [facility] Co de Phone Number [facility] [place] [address] * ECG 12 lead (09/28/2024 11:11 AM GR[employer]ITE POLISHER) Pathologist [facility] Ventricular Rate EKG/Min 91 BPM [facility] Atrial Rate 91 BPM [facility] HI-Interval (MSEC) 168 ms [facility] QRS-Interval (MSEC) 96 ms [facility] QT-Interval (MSEC) 348 ms [facility] QTc 428 ms [facility] P [place] 45 degrees [facility] R [place] 35 degrees [facility] T [place] -6 degrees [facility] Diagnosis Normal sinus rhythm Nonspecific T wave abnormality Abnormal ECG Confirmed by Viri HERRERA, [facility] ([id number]) on 10/03/2024 1:36:26 AM [facility] 09/28/2024 11:1 1 AM [employer]ISHER 10/03/2024 1:36 AM [employer]ITE [employer]ISHER Kathia Ruiz MD ECG ORDERABLES Final Res ult Performing Organization Address [facility] Co de Phone Number [facility] * (ABNORMAL) Urine culture Urine (09/28/2024 7:53 AM GR[employer]ITE POLISHER) Pathologist [facility] Report Final Report: Growth indicates contamination with mixed bacterial meir. Please submit a new specimen with special attention given to the collection process and to prompt transport to the laboratory. (.) Organism GROWTH INDICATES CONTAMINATION WITH MIXED MEIR. [facility] Urine 09/28/2024 7:53 AM GR[employer]ITE [employer]ISHER 09/28/2024 2:59 PM GR[employer]ITE POLISHER Narrative [facility] - 09/29/2024 10:59 PM GR[employer]ITE [employer]ISHER Testing performed by [facility] ([phone]) Kathia Ruiz MD LAB MICROBIOLOGY - GENERA L ORDERABLES Final Result Performing Organization Address [facility] Co de Phone Number [facility] [place] [address] * (ABNORMAL) Urinalysis, microscopic only (09/28/2024 7:53 AM GR[employer]ITE POLISHER) WBC, ur >50(A) 0 - 5 /HPF RBC, ur >50(A) 0 - 2 /HPF [facility] Epithelial cells, squamous, ur 6-10(A) 0 - 5 /HPF [facility] Comment:Suggestive of contam ination. Consider recollection by clean catch. Bacteria, ur 2+(A) [facility] Mucous, ur Present(A) [facility] Culture Reflex Comment Reflex to urine culture will be performed. [facility] Urine 09/28/2024 7:53 AM GR[employer]ITE [employer]ISHER 09/28/2024 8:03 AM GR[employer]ITE POLISHER Adelina Galvan MD LAB URINE ORDERABLES Fi nal Result Performing Organization Address [facility] Co de Phone Number [facility] [place] [address] * (ABNORMAL) Urinalysis reflex to microscopic and culture Urine (09/28/2024 7:53 AM GR[employer]ITE POLISHER) Color, ur Yellow Yellow Clarity, ur Cloudy(A) Clear [facility] Specific gravity, ur >1.042(H) 1.003 - 1.030 [facility] pH, urine 6.5 [facility] Comment: Interpretive Data ? Urine pH is affected by diet, medications, systemic acid-base disturbances, and renal tubular function. ??pH may affect urinary stone formation. ??For example, urine pH below 6.0 may help reduce the tendency for calcium phosphate stones and pH greater than 6.0 may reduce the tendency for uric acid stone formation. Source: [facility] Current Interpretive Data was last revised on 2017 Protein, ur ql 2+(A) Negative [facility] Glucose, ur ql Negative Negative [facility] Ketones, ur 2+(A) Negative [facility] Bilirubin, ur Negative Negative [facility] Blood, ur Negative Negative [facility] Urobilinogen, ur <2.0 <2.0 mg/dL [facility] Nitrite, ur Positive(A) Negative [facility] Leukocyte esterase, ur 3+(A) Negative [facility] UA reflex comment Reflex to microscopic UA will be performed. [facility] Urine 09/28/2024 7:53 AM GR[employer]ITE POLISHER 09/28/2024 8:03 AM [employer]ITE [employer]ISHER Adelina Galvan MD LAB MICROBIOLOGY - GENE [facility] ORDERABLES Final Result [facility] [place] [address] * Influenza A/B, RSV, and COVID-19 PCR Nasopharyngeal (09/28/2024 1:08 AM GR[employer]ITE POLISHER) COVID-19 RNA Negative Negative [facility] Influenza A RNA Negative Negative [facility] Influenza B RNA Negative Negative [facility] RSV RNA Negative Negative [facility] Comment: Interpretive data: Testing performed by [facility] ([phone]). This test is performed using the [employer] Xpert Xpress CoV-2/Flu/RSV plus assay. This is a multiplex, real-time reverse transcriptase PCR assay intended for the qualitative detection of nucleic acid from SARS-CoV-2, influenza A, influenza B, and respiratory syncytial virus. This assay has been cleared by the [place] Food and Drug administration. The performance characteristics have been verified by the [facility]. ??Results must be considered in the clinical context, and a negative result does not rule out infection. Interpretive Data last revised 2023 Nasopharyngeal 09/28/2024 1: 08 AM [employer]ITE [employer]ISHER 09/28/2024 1:18 AM GR[employer]ITE POLISHER Narrative [facility] - 09/28/2024 2:01 AM GR[employer]ITE POLISHER Is the Patient experiencing symptoms consistent with COVID?->Yes us Chula Tate MD LAB MICROBIOLOGY - GENERAL ORDERABLES Final Result [facility] [place] [address] [facility] * CT Abdomen Pelvis W Contrast (09/27/2024 11:35 PM GR[employer]ITE POLISHER) Anatomical Region Laterality Modality Body N/A Computed Tomogra phy 09/28/2024 12:1 8 AM GR[employer]ITE POLISHER Impressions 09/28/2024 8:01 AM GR[employer]ITE POLISHER 1. ??Cutaneous tract extending from bilateral gluteal [...] Cipriano Vergara M.D. Narrative 09/28/2024 8:01 AM GR[employer]ITE POLISHER EXAMINATION: ??Computed tomography of the abdomen and [...] Recommend attention on follow-up. Dictated by: Micaela Marlow MD, PhD. The radiology attending physician has personally reviewed this study, and had reviewed and/or edited this written report and agrees with it. Electronically signed by: Vincent Mono Mellnick, M.D. us Adelina Galvan MD IMG CT PROCEDURES Final Result * Sepsis Lactate w/ Reflex (09/27/2024 10:32 PM GR[employer]ITE [employer]ISHER) Sepsis Lactate 1.6 0.7 - 2.0 mmol/L Blood 09/27/2024 10:3 2 PM [employer]ISHER 09/27/2024 10:37 PM GR[employer]ITE POLISHER us Adelina Galvan MD LAB BLOOD ORDERABLES Fi nal Result [facility] [place] [address] * Blood culture Blood Peripheral (09/27/2024 10:32 PM GR[employer]ITE POLISHER) Report Final Report: No growth Blood (Peripheral) 09/27/2024 10:32 PM GR[employer]ITE [employer]ISHER 09/27/2024 10:39 PM GR[employer]ITE POLISHER Narrative [facility] - 10/02/2024 7:00 AM GRANITE POLISHER From a different site than #1. Draw [...] organism identification may be performed using the [employer] Gram-Positive Blood Culture Assay. This assay detects microbial DNA in positive blood culture broth via hybridization of target DNA to capture oligonucleotides on a microarray. This assay has been cleared by the [place] Food and Drug Administration and its performance characteristics have been verified by the [facility]. 5. ?For questions about this culture, contact the Microbiology Laboratory at [phone]. Interpretive data was last revised on 2020. Adelina Galvan MD LAB MICROBIOLOGY - GENE RAL ORDERABLES Final Result [facility] [place] [address] * XR Chest 1 Vw Portable (09/27/2024 10:21 PM GR[employer]ITE POLISHER) Anatomical Region Laterality Modality Body, Chest N/A Computed Radiogr aphy 09/28/2024 12:4 2 AM GR[employer]ITE [employer]ISHER Impressions 09/28/2024 8:01 AM GR[employer]ITE POLISHER Comparison is made to prior chest radiograph [...] Cipriano Vergara M.D. Narrative 09/28/2024 8:01 AM GR[employer]ITE POLISHER EXAMINATION: 1 view chest radiograph Procedure Note [...] IMG XR PROCEDURES Final Result * eGFR (09/27/2024 7:59 PM GR[employer]ITE POLISHER) eGFR >90 >=60 mL/min/1. 73 m2 Comment: [...] last reviewed 2021. Blood 09/27/2024 7:59 PM GR[employer]ITE [employer]ISHER 09/27/2024 8:29 PM GR[employer]ITE POLISHER us Adelina Galvan MD LAB BLOOD ORDERABLES Fi nal Result [facility] Department of Laboratories [place], [place] [id number] * (ABNORMAL) Differential, auto (09/27/2024 7:59 PM GRANITE POLISHER) Neutrophil abs 21.9(H) 1.5 - 6.5 K/cumm Imm gran abs 0.2(H) 0.0 - 0.1 K/cumm [facility] Lymphocyte abs 1.4 0.8 - 3.3 K/cumm [facility] Monocyte abs 0.6 0.2 - 0.8 K/cumm [facility] Eosinophil abs 0.1 0.0 - 0.5 K/cumm [facility] Basophil abs 0.0 0.0 - 0.1 K/cumm [facility] Neutrophil pct 90.5 % [facility] Comment: Interpretive Data Percent cell count reference ranges are not reported, since discordance with absolute values may lead to misinterpretation of CBC data. Current Interpretive Data was last revised on 2018. Imm gran pct 1.0 % [facility] Comment: Interpretive Data Percent cell count reference ranges are not reported, since discordance with absolute values may lead to misinterpretation of CBC data. Current Interpretive Data was last revised on 2018. Lymphocyte pct 5.6 % [facility] Comment: Interpretive Data Percent cell count reference ranges are not reported, since discordance with absolute values may lead to misinterpretation of CBC data. Current Interpretive Data was last revised on 2018. Monocyte pct 2.4 % [facility] Comment: Interpretive Data Percent cell count reference ranges are not reported, since discordance with absolute values may lead to misinterpretation of CBC data. Current Interpretive Data was last revised on 2018. Eosinophil pct 0.3 % [facility] Comment: Interpretive Data Percent cell count reference ranges are not reported, since discordance with absolute values may lead to misinterpretation of CBC data. Current Interpretive Data was last revised on 2018. Basophil pct 0.2 % [facility] Comment: Interpretive Data Percent cell count reference ranges are not reported, since discordance with absolute values may lead to misinterpretation of CBC data. Current Interpretive Data was last revised on 2018. Blood 09/27/2024 7:59 PM GR[employer]ITE [employer]ISHER 09/27/2024 8:26 PM [employer]ITE [employer]ISHER Adelina Galvan MD LAB BLOOD [place] [address] * (ABNORMAL) Sepsis Lactate w/ Reflex (09/27/2024 7:59 PM GR[employer]ITE POLISHER) Sepsis Lactate 3.6(H) 0.7 - 2.0 mmol/L Blood 09/27/2024 7:59 PM GR[employer]ITE [employer]ISHER 09/27/2024 8:08 PM [employer]ITE [employer]ISHER Adelina Galvan MD LAB BLOOD ORDERABLES Fi nal Result Performing Organization Address [facility] Co de Phone Number [facility] [place] [address] * Blood culture Blood Peripheral (09/27/2024 7:59 PM GRANITE POLISHER) Report Final Report: No growth Blood (Peripheral) 09/27/2024 7:59 PM GR[employer]ITE [employer]ISHER 09/27/2024 8:11 PM GR[employer]ITE POLISHER Narrative [facility] - 10/02/2024 7:00 AM GRANITE POLISHER Draw Blood cultures before administration of Antibiotics [...] organism identification may be performed using the [employer] Gram-Positive Blood Culture Assay. This assay detects microbial DNA in positive blood culture broth via hybridization of target DNA to capture oligonucleotides on a microarray. This assay has been cleared by the [place] Food and Drug Administration and its performance characteristics have been verified by the [facility]. 5. ?For questions about this culture, contact the Microbiology Laboratory at [phone]. Interpretive data was last revised on 2020. us Adelina Galvan MD LAB MICROBIOLOGY - GENE RAL ORDERABLES Final Result [facility] [place] [address] * (ABNORMAL) Comprehensive metabolic panel (09/27/2024 7:59 PM GR[employer]ITE POLISHER) Sodium 132(L) 135 - 145 mmol/L Potassium, pl 4.3 3.3 - 4.9 mmol/L [facility] Comment:Hemolyzed; Potassium value may be falsely elevated by as much as 0.3-0.5 mmol/L. Suggest redraw and reanalysis. Chloride 96(L) 97 - 110 mmol/L [facility] CO2 21(L) 22 - 32 mmol/L [facility] Anion gap 15 2 - 15 mmol/L [facility] BUN 7 6 - 25 mg/dL [facility] Creatinine 0.74(L) 0.80 - 1.30 mg/dL [facility] Glucose 74 70 - 199 mg/dL [facility] Comment: Interpretive Data Fasting glucose >/= 126 [...] 2022. Calcium 9.4 8.5 - 10.3 mg/dL [facility] Bilirubin, total 0.8 0.1 - 1.2 mg/dL [facility] Protein, pl 9.6(H) 6.5 - 8.5 g/dL [facility] Albumin 3.4(L) 3.5 - 5.0 g/dL [facility] Alk phos 143(H) 40 - 130 Units/L [facility] ALT 71(H) 7 - 55 Units/L [facility] AST 47 10 - 50 Units/L [facility] Comment:Hemolyzed; result ma y be falsely elevated Blood 09/27/2024 7:59 PM GR[employer]ITE [employer]ISHER 09/27/2024 8:29 PM [employer]ITE [employer]ISHER us Adelina Galvan MD LAB BLOOD ORDERABLES Fi nal Result [facility] [place] [address] * (ABNORMAL) CBC with auto differential (09/27/2024 7:59 PM GR[employer]ITE POLISHER) WBC 24.2(H) 3.8 - 9.9 K/cumm Hgb 10.7(L) 13.0 - 17.5 g/dL [facility] Hct 35.3(L) 38.9 - 50.3 % [facility] Plt 463(H) 150 - 400 K/cumm [facility] MPV 10.9 9.1 - 12.3 fL [facility] RBC 4.83 4.30 - 5.80 M/cumm [facility] MCV 73.1(L) 81.3 - 96.4 fL [facility] MCH 22.2(L) 27.1 - 33.3 pg [facility] MCHC 30.3(L) 32.3 - 35.7 g/dL [facility] RDW CV 17.2(H) 11.1 - 14.9 % [facility] RDW SD 45.4 35.7 - 48.1 fL [facility] NRBC abs 0.00 0.00 - 0.01 [facility] Blood 09/27/2024 7:59 PM GR[employer]ITE [employer]ISHER 09/27/2024 8:26 PM [employer]ITE [employer]ISHER Adelina Galvan MD LAB BLOOD ORDERABLES Fi nal Result [facility] [place] [address] documented in this encounter Visit Diagnoses Diagnosis Pressure injury of buttock, unstageable, unspecified laterality (HCC)- Primary Pressure injury of buttock, unstageable, unspecified laterality (HCC) Sepsis without acute organ dysfunction, due to unspecified organism (HCC) Sacral osteomyelitis (CMS/HCC) (HCC) Abdominal pain Abdominal pain, unspecified site Spinal abscess (CMS/HCC) (HCC) Acute osteomyelitis, other specified site Neurogenic bowel documented in this encounter Admitting Diagnoses Diagnosis Pressure injury of buttock, unstageable, unspecified laterality (HCC) documented in this encounter Administered Medications Inactive Administered Medications - up to 3 most recent administrations Medication Order MAR Action Action Date Dose Rate Site acetaminophen (TYLENOL) tablet 1,000 mg 1,000 mg, oral, Every 6 hours scheduled, First dose on Wed09/28/24 at 0040 Given 10/09/2024 6:09 PM [facility] 1,000 mg Given 10/09/2024 12:17 PM [facility] 1,000 mg Given 10/09/2024 6:08 AM [facility] 1,000 mg acetaminophen (TYLENOL) tablet 1,000 mg 1,000 mg, oral, Once, On Wed09/29/24 at 1000, For 1 dose, Pre-Op, Indications: Pre-Emptive AnalgesiaIndications:Pre-Emptive Analgesia Given 09/29/2024 10:31 AM [facility] 1,000 mg ALPRAZolam (XANAX) tablet 0.25 mg 0.25 mg, oral, 2 times daily, First dose (after last modification) on Ramandeep 09/28/24 at 1545 Given 10/09/2024 8:00 PM [facility] 0.25 mg Given 10/09/2024 8:43 AM [facility] 0.25 mg Given 10/08/2024 9:30 PM [facility] 0.25 mg ALPRAZolam (XANAX) tablet 0.25 mg 0.25 mg, oral, Once, On Ramandeep 09/28/24 at 2300, For 1 dose Given 09/29/2024 12:43 AM [facility] 0.25 mg alteplase (CATHFLO) 1 mg/mL syringe (premix) 2-4 mg 2-4 mg, intra-catheter, Once, On 09/30/24 at 0345, For 1 dose, Indwell volume of cath lumens post treatment. 2 mg/Lumen. Refrigerate, Indications: prevent clotting in catheterIndications:prevent clotting in catheter Given 09/30/2024 6:04 AM [facility] 2 mg benzocaine-menthoL (CHLORASEPTIC) lozenge 1 lozenge 1 lozenge, mouth/throat, Every 2 hours PRN, sore throat, Starting on 09/30/24 at 1207 cefepime (MAXIPIME) 2,000 mg/20 mL in sterile water (premix) 2,000 mg 2,000 mg, intravenous, at 240 mL/hr, Administer over 5 Minutes, Once, On 09/27/24 at 2051, For 1 dose, Indications: SepsisIndications:Sepsis New Bag 09/27/2024 9:17 PM [facility] 2,000 mg 240 mL /hr cefepime (MAXIPIME) 2,000 mg/20 mL in sterile water (premix) 2,000 mg 2,000 mg, intravenous, at 240 mL/hr, Administer over 5 Minutes, Every 8 hours scheduled, First dose (after last modification) on Ramandeep 09/28/24 at 2200, Indications: Sepsis, Skin/Soft Tissue Infection, Urinary Tract/Genitourinary InfectionIndications:Sepsis,Skin /Soft Tissue Infection,Urinary Tract/Genitourinary Infection New Bag 10/02/2024 5:07 AM [facility] 2,000 mg 2 40 mL/hr New Bag 10/01/2024 9:04 PM [facility] 2,000 mg 240 mL/hr New Bag 10/01/2024 12:45 PM [facility] 2,000 mg 240 mL/hr cefTRIAXone (ROCEPHIN) 2,000 mg/20 mL in sterile water (premix) 2,000 mg 2,000 mg, intravenous, at 240 mL/hr, Administer over 5 Minutes, Every 24 hours scheduled, First dose on Wed10/02/24 at 2000, Indications: Bone/Joint InfectionIndications:Bone/Joint Infection Given 10/08/2024 9:36 PM [facility] 2,000 mg 240 mL/hr Given 10/07/2024 9:40 PM [facility] 2,000 mg 240 mL/hr Given 10/06/2024 8:10 PM [facility] 2,000 mg 240 mL/hr cefTRIAXone (ROCEPHIN) 2,000 mg/20 mL in sterile water (premix) 2,000 mg 2,000 mg, intravenous, at 240 mL/hr, Administer over 5 Minutes, Every 24 hours scheduled, First dose (after last modification) on 10/09/24 at 1530, Indications: Bone/Joint InfectionIndications:Bone/Joint Infection Given 10/09/2024 3:10 PM [facility] 2,000 mg 240 mL/hr cyclobenzaprine (FLEXERIL) tablet 5 mg 5 mg, oral, 3 times daily PRN, muscle spasms, Starting on Ramandeep 09/28/24 at 1020 Given 10/09/2024 6:09 PM [facility] 5 mg Given 10/09/2024 12:17 PM [facility] 5 mg Given 10/09/2024 6:08 AM [facility] 5 mg diphenhydrAMINE (BENADRYL) 50 mg/mL injection 25 mg 25 mg, intravenous, Administer over 2 Minutes, Once, On Wed09/27/24 at 2242, For 1 dose Given 09/27/2024 10:54 PM [facility] 25 mg enoxaparin (LOVENOX) syringe 40 mg 40 mg, subcutaneous, Daily (for enoxaparin), First dose on Ramandeep 09/28/24 at 2100, Indications: Deep Vein Thrombosis PreventionIndications:Deep Vein Thrombosis Prevention Given 09/29/2024 10:00 PM [facility] 40 mg Right Lower Abdomen Given 09/28/2024 9:16 PM [facility] 40 mg Le ft Lower Abdomen enoxaparin (LOVENOX) syringe 40 mg 40 mg, subcutaneous, Every 12 hours scheduled, First dose (after last modification) on [facility] 09/30/24 at 2100, Indications: Deep Vein Thrombosis PreventionIndications:Deep Vein Thrombosis Prevention Given 10/09/2024 8:00 PM [facility] 40 mg Left Upper Abdomen Given 10/09/2024 8:43 AM [facility] 40 mg Le ft Lower Abdomen Given 10/08/2024 9:30 PM [facility] 40 mg Le ft Lower Abdomen fentaNYL (DURAGESIC) 75 mcg/hr patch 72 hour 1 patch 1 patch, transdermal, Administer over 72 Hours, Every 72 hours, First dose on Wed10/04/24 at 1800, Apply to an area with sufficient adipose tissue Remove according to hospital policy. Dispose in Stericycle CsRx bin and document in Pyxis with witness. Medication Applied 10/07/2024 7:49 PM [facility] 1 patch Left Shoulder Medication Applied 10/04/2024 9:14 PM [facility] 1 patch Left Shoulder fentaNYL (SUBLIMAZE) preservative free injection 50 mcg 50 mcg, intravenous, Every 10 min PRN, 1st line for pain, Starting on Wed09/29/24 at 0926, For 2 doses, Pre-Op, Indications: Pre-Emptive AnalgesiaIndications:Pre-Emptive Analgesia Given 09/29/2024 10:25 AM [facility] 50 mcg ferrous sulfate tablet 325 mg 325 mg (65 mg of elemental iron), oral, Daily with evening meal, First dose on Wed10/06/24 at 1800, Indications: Iron Deficiency Anemia, On hold since 10/08/2024 at 0755 until manually unheldIndications:Iron Deficiency Anemia Given 10/06/2024 6:15 PM [facility] 325 mg folic acid (FOLVITE) tablet 1 mg 1 mg, oral, Daily, First dose on Wed10/06/24 at 1815, Each tablet contains 1 mg of folic acid (1.67 mg DFE). Given 10/09/2024 8:43 AM [facility] 1 mg Given 10/08/2024 9:01 AM [facility] 1 mg Given 10/07/2024 9:17 AM [facility] 1 mg gabapentin (NEURONTIN) capsule 300 mg 300 mg, oral, Nightly, First dose on Ramandeep 09/28/24 at 2100 Given 10/09/2024 8:00 PM [facility] 300 mg Given 10/08/2024 9:30 PM [facility] 300 mg Given 10/07/2024 9:37 PM [facility] 300 mg heparin 100 unit/mL injection 100 Units 100 Units (1 mL), intra-catheter, Every 8 hours PRN, line care, Starting on Wed09/29/24 at 1624 Given 10/07/2024 7:46 PM [facility] 100 Units Given 09/29/2024 10:38 PM [facility] 100 Units Given 09/29/2024 5:23 PM [facility] 100 Units HYDROmorphone (DILAUDID) injection 0.5 mg 0.5 mg, intravenous, Administer over 2 Minutes, Every 4 hours PRN, 1st line for pain, Starting on Wed09/29/24 at 1626 Given 09/30/2024 6:24 AM [facility] 0.5 m g Given 09/30/2024 1:09 AM [facility] 0.5 mg Given 09/29/2024 5:23 PM [facility] 0.5 mg HYDROmorphone (DILAUDID) injection 0.5 mg 0.5 mg, intravenous, Administer over 2 Minutes, Every 3 hours PRN, 1st line for pain, Starting on Wed09/30/24 at 1029 Given 10/04/2024 3:33 PM [facility] 0.5 m g Given 10/04/2024 12:11 PM [facility] 0.5 mg Given 10/04/2024 4:15 AM [facility] 0.5 mg HYDROmorphone (DILAUDID) injection 1 mg 1 mg, intravenous, Administer over 2 Minutes, Once, On Wed09/27/24 at 1930, For 1 dose Given 09/27/2024 7:56 PM [facility] 1 mg HYDROmorphone (DILAUDID) tablet 2 mg 2 mg, oral, Every 6 hours PRN, breakthrough pain, Starting on Wed10/04/24 at 1702, Indications: PainIndications:Pain Given 10/09/2024 6:09 PM [facility] 2 mg Given 10/09/2024 12:17 PM [facility] 2 mg Given 10/09/2024 6:08 AM [facility] 2 mg ibuprofen (ADVIL,MOTRIN) tablet 400 mg 400 mg, oral, Every 4 hours PRN, 2nd line for pain, Starting on Wed09/28/24 at 0039, Do not crush, break, or open. Given 09/28/2024 11:21 AM [facility] 400 mg Given 09/28/2024 1:02 AM [facility] 400 mg ibuprofen (ADVIL,MOTRIN) tablet 400 mg 400 mg, oral, Every 4 hours PRN, 2nd line for pain, Starting on Wed09/29/24 at 1629, Do not crush, break, or open. Given 10/09/2024 8:00 PM [facility] 400 mg Given 10/09/2024 2:58 PM [facility] 400 mg Given 10/06/2024 8:09 PM [facility] 400 mg influenza trivalent [id number] (FLULAVAL,FLUARIX,FLUZO NE) 45 mcg (15 mcg x 3)/0.5 mL vaccine (STANDARD age 6 months and up) 0.5 mL 0.5 mL, intramuscular, During hospitalization, immunization, Starting on Ramandeep 09/28/24 at 1625, For 1 dose, Indications: influenza vaccinationIndications: influenza vaccination Given 10/09/2024 8:43 AM [facility] 0.5 mL Left Deltoid ioversoL (OPTIRAY 350) syringe 100 mL 100 mL, intravenous, Once in imaging, contrast, Starting on 09/27/24 at 2321, For 1 dose Contrast Given 09/27/2024 11:36 PM [facility] 94 mL Lactated Ringer's (LR) bolus 1,000 mL 1,000 mL, intravenous, Once, On Wed09/27/24 at 2052, For 1 dose New Bag 09/27/2024 9:20 PM [facility] 1,000 mL linezolid (ZYVOX) 600 mg/300 mL in dextrose 5% (premix) 600 mg 600 mg, intravenous, at 150 mL/hr, Administer over 2 Hours, Every 12 hours scheduled, First dose on Wed09/27/24 at 2303, Indications: SepsisIndications:Sepsi s New Bag 10/02/2024 9:30 AM [facility] 600 mg 150 mL/hr New Bag 10/01/2024 8:35 PM [facility] 600 mg 150 mL/hr New Bag 10/01/2024 10:27 AM [facility] 600 mg 150 mL/hr meropenem (MERREM) 1,000 mg/50 mL in sodium chloride 0.9% (premix) 1,000 mg 1,000 mg, intravenous, Administer over 30 Minutes, Every 8 hours scheduled, First dose on Ramandeep 09/28/24 at 0600, RN must ACTIVATE DUPLEX BAG Prior to Administering., Indications: SepsisIndications:Sepsis New Bag 09/28/2024 1:05 PM [facility] 1,000 mg New Bag 09/28/2024 5:57 AM [facility] 1,000 mg metroNIDAZOLE (FLAGYL) 500 mg/100 mL in sodium chloride (premix) 500 mg 500 mg, intravenous, at 200 mL/hr, Administer over 30 Minutes, Every 8 hours scheduled, First dose on Wed09/27/24 at 2051, Room temperature only, Indications: SepsisIndications:Sepsis New Bag 09/27/2024 9:20 PM [facility] 500 mg 200 mL /hr metroNIDAZOLE (FLAGYL) 500 mg/100 mL in sodium chloride (premix) 500 mg 500 mg, intravenous, at 200 mL/hr, Administer over 30 Minutes, Every 12 hours scheduled, First dose (after last modification) on Wed09/28/24 at 0900, Room temperature only, Indications: SepsisIndications:Sepsis New Bag 09/28/2024 10:36 AM [facility] 500 mg 200 m L/hr metroNIDAZOLE (FLAGYL) tablet 500 mg 500 mg, oral, 2 times daily, First dose on Wed09/28/24 at 2100, Indications: Sepsis, Skin/Soft Tissue Infection, Urinary Tract/Genitourinary InfectionIndications:Sepsis,Skin/S oft Tissue Infection,Urinary Tract/Genitourinary Infection Given 10/09/2024 8:42 AM [facility] 500 mg Given 10/08/2024 9:30 PM [facility] 500 mg Given 10/08/2024 9:01 AM [facility] 500 mg metroNIDAZOLE (FLAGYL) tablet 500 mg 500 mg, oral, 2 times daily, First dose (after last modification) on Wed10/09/24 at 1600, Indications: Sepsis, Skin/Soft Tissue Infection, Urinary Tract/Genitourinary InfectionIndications:Sepsis,Skin/Soft Tissue Infection,Urinary Tract/Genitourinary Infection Given 10/09/2024 6:09 PM [facility] 500 mg ondansetron (ZOFRAN) injection 4 mg 4 mg, intravenous, Administer over 2 Minutes, Once, On Wed09/27/24 at 1930, For 1 dose Given 09/27/2024 7:52 PM [facility] 4 mg ondansetron (ZOFRAN) injection 4 mg 4 mg, intravenous, Administer over 2 Minutes, Once, On Ramandeep 09/28/24 at 1130, For 1 dose Given 09/28/2024 11:10 AM [facility] 4 mg ondansetron (ZOFRAN) injection 4 mg 4 mg, intravenous, Administer over 2 Minutes, Every 4 hours PRN, nausea, vomiting, Starting on 10/01/24 at 0906 Given 10/07/2024 1:42 PM [facility] 4 mg Given 10/01/2024 9:18 AM [facility] 4 mg ondansetron ODT (ZOFRAN-ODT) disintegrating tablet 4 mg 4 mg, oral, Once, On Ramandeep 09/28/24 at 0041, For 1 dose Given 09/28/2024 1:01 AM [facility] [address] (PROTONIX) extended release tablet 40 mg 40 mg, oral, 2 times daily before meals (bkfst, dinner), First dose on Ramandeep 09/28/24 at 1730, Do not crush, chew, cut, dissolve, open or otherwise manipulate tablet/capsule., Indications: Treatment of Non-Bleeding Gastric DisorderIndications:Treatment of Non-Bleeding Gastric Disorder Given 10/09/2024 6:09 PM [facility] 40 mg Given 10/09/2024 6:08 AM [facility] 40 mg Given 10/08/2024 6:32 PM [facility] 40 mg propranoloL (INDERAL) tablet 40 mg 40 mg, oral, 2 times daily, First dose on Wed09/28/24 at 1100 Given 10/09/2024 8:00 PM [facility] 40 mg Given 10/09/2024 8:43 AM [facility] 40 mg Given 10/08/2024 9:30 PM [facility] 40 mg senna-docusate (PERICOLACE) 8.6-50 mg per tablet 1 tablet 1 tablet, oral, 2 times daily, First dose on Ramandeep 09/28/24 at 1100, Indications: constipationIndications:constipation Given 10/09/2024 8:43 AM [facility] 1 table t Given 10/07/2024 9:37 PM [facility] 1 tablet Given 10/07/2024 9:17 AM [facility] 1 tablet sodium chloride 0.9% 0.9% infusion - ADS Override Pull Starting on Wed09/29/24 at 0932, For 1 dose, Created by cabinet override sodium chloride 0.9% bolus 1,000 mL 1,000 mL, intravenous, at 1,000 mL/hr, Administer over 1 Hours, Once, On Ramandeep 09/28/24 at 0042, For 1 dose New Bag 09/28/2024 1:03 AM [facility] 1,000 mL 1000 mL/hr sodium chloride 0.9% flush 0.5-20 mL 0.5-20 mL, intra-catheter, As needed, line care, Starting on Wed09/29/24 at 0926, Pre-Op, Flush volume based on line type and size. Flush before and after each use. Given 09/29/2024 10:10 AM [facility] 10 mL Given 09/29/2024 9:37 AM [facility] 10 mL sodium chloride 0.9% flush 15 mL 15 mL, intra-catheter, As needed, line care, Starting on Wed09/29/24 at 1623 Given 10/06/2024 6:09 AM [facility] 15 mL Given 10/05/2024 9:15 PM [facility] 15 mL Given 10/04/2024 9:15 PM [facility] 15 mL sodium chloride 0.9% infusion 30 mL/hr, intravenous, Continuous, Starting on Wed09/29/24 at 1000, Pre-Op New Bag 09/29/2024 11:15 AM [facility] New Bag 09/29/2024 9:37 AM [facility] 30 mL/hr 30 mL/hr vancomycin (VANCOCIN) 2,000 mg in sodium chloride 0.9% 500 mL IVPB 2,000 mg (rounded from 1,972.5 mg = 15 mg/kg ? 131.5 kg), intravenous, at 260 mL/hr, Administer over 120 Minutes, Once, On Wed09/27/24 at 2051, For 1 dose, Indications: SepsisIndications:Sepsis New Bag 09/27/2024 10:00 PM [facility] 2,000 mg 260 m L/hr documented in this encounter Discontinued Medications Medication Sig Discontinue Reason Start Date End Da te linaCLOtide (LINZESS) 145 mcg capsule 145 mcg daily Stop Taking at Discharge 10/09/2024 HYDROcodone-acetamino phen (NORCO) 10-325 mg per tabletIndications:Ailyn n Take 1 tablet by mouth every 4 (four) hours as needed for pain Stop Taking at Discharge 04/11/2021 10/09/2024 heparin 10 unit/mL syringe Administer 5 mL (50 Units total) into IV catheter as needed (keep IV catheter patent) Stop Taking at Discharge 04/11/2021 10/09/2024 cloNIDine (CATAPRES-TTS) 0.3 mg/[address] 0.3 mg on the skin once a week Stop Taking at Discharge 10/09/2024 NIFEdipine (NIFEdipine XL) 60 mg 24 hr tablet Take 60 mg by mouth daily Stop Taking at Discharge 10/09/2024 documented as of this encounter Active and Recently Administered Medications Times are shown in [facility]. Scheduled Medication Order 10/07/2024 10/08/2024 10/09/2024 acetaminophen (TYLENOL) tablet 1,000 mg 1,000 mg, oral, Every 6 hours scheduled, First dose on Ramandeep 09/28/24 at 0040 0605 (Given - Provider: Sharmin Quan RN)1339 (Given - Provider: Ana M Jnag RN)1946 (Given - Provider: Ana M Jang RN) 0318 (Not Given - Provider: Trino Medeiros RN - Reason: Patient/family refused)0414 (Given - Provider: Trino Medeiros RN)1310 (Given - Provider: Ana M Jang RN)1832 (Given - Provider: Ana M Jang RN) 0016 (Given - Provider: Melany Mchugh RN)0608 (Given - Provider: Melany Mchugh RN)1217 (Given - Provider: Alice Rooney RN)1809 (Given - Provider: Alice Rooney RN) ALPRAZolam (XANAX) tablet 0.25 mg 0.25 mg, oral, 2 times daily, First dose (after last modification) on Ramandeep 09/28/24 at 1545 0917 (Given - Provider: Ana M Jang RN)2137 (Given - Provider: Trino Medeiros RN) 0902 (Given - Provider: Ana M Jang RN)2130 (Given - Provider: Melany Mchugh RN) 0843 (Given - Provider: Alice Rooney RN)1999 (Given - Provider: Kip Mcgregor RN) cefTRIAXone (ROCEPHIN) 2,000 mg/20 mL in sterile water (premix) 2,000 mg (CANCELED) 2,000 mg, intravenous, at 240 mL/hr, Administer over 5 Minutes, Every 24 hours scheduled, First dose on Wed10/02/24 at 1999, Indications: Bone/Joint Infection 2140 (Given - Provider: Trino Medeiros, PARAM) 2135 (Given - Provider: Melany Mchugh, PARAM) cefTRIAXone (ROCEPHIN) 2,000 mg/20 mL in sterile water (premix) 2,000 mg 2,000 mg, intravenous, at 240 mL/hr, Administer over 5 Minutes, Every 24 hours scheduled, First dose (after last modification) on Wed10/09/24 at 1530, Indications: Bone/Joint Infection 1510 (Given - Provid er: Alice Rooney RN) enoxaparin (LOVENOX) syringe 40 mg 40 mg, subcutaneous, Every 12 hours scheduled, First dose (after last modification) on Wed09/30/24 at 2100, Indications: Deep Vein Thrombosis Prevention 0917 (Given - Provider: Ana M Jang RN)2136 (Given - Provider: Trino Medeiros RN) 09 (Given - Provider: Ana M Jang RN)2129 (Given - Provider: Melany Mchugh RN) 0843 (Given - Provider: Alice Rooney, PARAM)1999 (Given - Provider: Kip Mcgregor, PARAM) fentaNYL (DURAGESIC) 75 mcg/hr patch 72 hour 1 patch 1 patch, transdermal, Administer over 72 Hours, Every 72 hours, First dose on Wed10/04/24 at 1800, Apply to an area with sufficient adipose tissue Remove according to hospital policy. Dispose in Stericycle CsRx bin and document in Pyxis with witness. 0254 (Patch Verify - Provider: Sharmin Quan, PARAM)194 (Medication Removed - Provider: Ana M Jang RN)1948 (Medication Applied - Provider: Ana M Jang RN) 2029 (Due: Medication Removed - Provider: Automatic Discharge Provider - Comment: Time automatically adjusted from order being discontinued) ferrous sulfate tablet 325 mg 325 mg (65 mg of elemental iron), oral, Daily with evening meal, First dose on Wed10/06/24 at 1800, Indications: Iron Deficiency Anemia, On hold since Wed10/08/2024 at 0755 until manually unheld 1800 (Due) 0755 (Held by Provider - Provider: Edgar Gonzalez MD - Reason: Change in Patient Status)1800 (Dose Auto Held - Provider: Edgar Gonzalez MD) 1800 (Dose Auto Held - Provider: Edgar Gonzalez MD) folic acid (FOLVITE) tablet 1 mg 1 mg, oral, Daily, First dose on Wed10/06/24 at 1815, Each tablet contains 1 mg of folic acid (1.67 mg DFE). 0917 (Given - Provider: Ana M Jang RN) 0901 (Given - Provider: Ana M Jang RN) 0843 (Given - Provider: Alice Rooney RN) gabapentin (NEURONTIN) capsule 300 mg 300 mg, oral, Nightly, First dose on Wed09/28/24 at 2100 2137 (Given - Provider: Trino Medeiros, PARAM) 2129 (Given - Provider: Melany Mchugh RN) 1999 (Given - Provider: Kip Mcgregor RN) metroNIDAZOLE (FLAGYL) tablet 500 mg (CANCELED) 500 mg, oral, 2 times daily, First dose on Wed09/28/24 at 2100, Indications: Sepsis, Skin/Soft Tissue Infection, Urinary Tract/Genitourinary Infection 0917 (Given - Provider: Ana M Jang RN)2135 (Given - Provider: Trino Medeiros, PARAM) 09 (Given - Provider: Ana M Jang RN)2129 (Given - Provider: Melany Mchugh RN) 0842 (Given - Provider: Alice Rooney RN) metroNIDAZOLE (FLAGYL) tablet 500 mg 500 mg, oral, 2 times daily, First dose (after last modification) on Wed10/09/24 at 1600, Indications: Sepsis, Skin/Soft Tissue Infection, Urinary Tract/Genitourinary Infection 1809 (Given - Provid er: Alice Rooney RN) pantoprazole DR (PROTONIX) extended release tablet 40 mg 40 mg, oral, 2 times daily before meals (bkfst, dinner), First dose on Wed09/28/24 at 1730, Do not crush, chew, cut, dissolve, open or otherwise manipulate tablet/capsule., Indications: Treatment of Non-Bleeding Gastric Disorder 0917 (Given - Provider: Ana M Jang RN)194 (Given - Provider: Ana M Jang RN) 09 (Given - Provider: Ana M Jang RN)183 (Given - Provider: Ana M Jang RN) 06 (Given - Provider: Melany Mchugh RN)180 (Given - Provider: Alice Rooney RN) propranoloL (INDERAL) tablet 40 mg 40 mg, oral, 2 times daily, First dose on Ramandeep 09/28/24 at 1100 09 (Given - Provider: Ana M Jang RN)2136 (Given - Provider: Trino Medeiros RN) 09 (Given - Provider: Ana M Jang RN)2129 (Given - Provider: Melany Mchugh RN) 08 (Given - Provider: Alice Rooney RN)1999 (Given - Provider: Kip Mcgregor RN) senna-docusate (PERICOLACE) 8.6-50 mg per tablet 1 tablet 1 tablet, oral, 2 times daily, First dose on Ramandeep 09/28/24 at 1100, Indications: constipation 916 (Given - Provider: Ana M Jang RN)2136 (Given - Provider: Trino Medeiros RN) 09 (Not Given - Provider: Ana M Jang RN - Reason: Order parameters not met)2130 (Not Given - Provider: Melany Mchugh RN - Reason: Patient/family refused) 08 (Given - Provider: Alice Rooney RN)1999 (Not Given - Provider: Kip Mcgregor RN - Reason: Patient/family refused) PRN Medication Order 10/07/2024 10/08/2024 10/09/2024 benzocaine-menthoL (CHLORASEPTIC) lozenge 1 lozenge 1 lozenge, mouth/throat, Every 2 hours PRN, sore throat, Starting on 09/30/24 at 1207 cyclobenzaprine (FLEXERIL) tablet 5 mg 5 mg, oral, 3 times daily PRN, muscle spasms, Starting on Wed09/28/24 at 1020 0608 (Given - Provider: Melany Mchugh RN)1217 (Given - Provider: Alice Rooney RN)1809 (Given - Provider: Alice Rooney RN) heparin 100 unit/mL injection 100 Units 100 Units (1 mL), intra-catheter, Every 8 hours PRN, line care, Starting on Wed09/29/24 at 1624 1946 (Given - Provider: Ana M Jang RN) HYDROmorphone (DILAUDID) tablet 2 mg 2 mg, oral, Every 6 hours PRN, breakthrough pain, Starting on Wed10/04/24 at 1702, Indications: Pain 1339 (Given - Provider: Ana M Jang RN)2136 (Given - Provider: Trino Medeiros, PARAM) 1534 (Given - Provider: Ana M Jang RN) 0608 (Given - Provider: Melany Mchugh RN)1217 (Given - Provider: Alice Rooney RN)1809 (Given - Provider: Alice Rooney RN) ibuprofen (ADVIL,MOTRIN) tablet 400 mg 400 mg, oral, Every 4 hours PRN, 2nd line for pain, Starting on Wed09/29/24 at 1629, Do not crush, break, or open. 1458 (Given - Provider: Alice Rooney RN)1999 (Given - Provider: Kip Mcgregor RN) influenza trivalent [id number] (FLULAVAL,FLUARIX,FLUZO NE) 45 mcg (15 mcg x 3)/0.5 mL vaccine (STANDARD age 6 months and up) 0.5 mL (COMPLETED) 0.5 mL, intramuscular, During hospitalization, immunization, Starting on Wed09/28/24 at 1625, For 1 dose, Indications: influenza vaccination 0843 (Given - Provider: Alice Rooney RN) ondansetron (ZOFRAN) injection 4 mg 4 mg, intravenous, Administer over 2 Minutes, Every 4 hours PRN, nausea, vomiting, Starting on 10/01/24 at 0906 1342 (Given - Provider: Ana M Jang RN) polyethylene glycol (MIRALAX) packet 17 g 17 g, oral, Daily PRN, constipation, Starting on Ramandeep 09/28/24 at 1020, Indications: constipation sodium chloride 0.9% flush 15 mL 15 mL, intra-catheter, As needed, line care, Starting on Wed09/29/24 at 1623 documented in this encounter Orders Medications Ordered That Camron ht Not Have Been Administered Count Last Ordered Date First Ordered Date benzocaine-menthoL (CHLORASE PTIC) lozenge 1 lozenge 1 09/30/2024 HYDROmorphone (DILAUDID) injection 0.2 mg 1 09/29/2024 HYDROmorphone (DILAUDID) injection 0.4 mg 1 09/29/2024 lidocaine (PF) (XYLOCAINE) 1 0 mg/mL (1 %) preservative free injection 2-10 mg 1 09/29/2024 naloxone (NARCAN) 0.4 mg/mL injection 0.04-0.4 mg 1 09/29/2024 oxyCODONE (ROXICODONE) tablet 5 mg 2 202309/28/2024 sodium chloride 0.9% irrigation 1 sodium hypochlorite (DA[employer]ARTER STRENGTH) 0.125 % external solution 1 09/29/2024 ALPRAZolam (XANAX) tablet 0.125 mg 1 2023 cefepime (MAXIPIME) 1,000 mg /10 mL in sterile water (premix) 1,000 mg 1 09/28/2024 polyethylene glycol (MIRALAX) packet 17 g 1 09/28/2024 meropenem (MERREM) 1,000 mg/ 50 mL in sodium chloride 0.9% (premix) 1,000 mg 1 09/27/2024 Lab Orders Without Results Count Last Ordered D ate First Ordered Date MAGNESIUM 1 10/02/2024 POCT CREATININE - DEVICE 1 09/27/2024 Nursing Count Last Ordered Date First Orde red Date STRAIGHT CATH 1 09/27/2024 Consult Count Last Ordered Date First Orde red Date CONSULT TO WOUND CARE 2 10/02/20242023 IP CONSULT TO PLASTIC SURGERY 1 10/02/2024 CONSULT TO GENERAL INFECTIOUS DISEASE 1 IP CONSULT TO SOCIAL WORK 1 09/28/2024 IP CONSULT TO TRAUMA SURGERY 1 09/28/2024 Admission Count Last Ordered Date First Orde red Date ADMIT TO INPATIENT 1 09/27/2024 Discharge Count Last Ordered Date First Orde red Date DISCHARGE PATIENT 1 10/09/2024 Case Request Count Last Ordered Date First Orde red Date CASE REQUEST OPERATING ROOM 1 09/28/2024 documented in this encounter Additional Health Concerns Infection Onset Date Last Indicated Resolved Time 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 Source: [facility] [employer]. 11/17/2023 COVID: Suspected 09/28/2024 09/28/2024 09/28/2024 2:02 AM GRANITE POLISHER C. difficile suspected 10/05/2024 10/05/202410/06 5:07 AM GRANITE POLISHER documented as of this encounter Care Teams Company Laborer Relationship Specialty Start Date End Date Silverio Germain MD [address] [address] PCP - General Emergency Medicine 05/12/23 10/02/24 Rick Carpio MD [address] [place] [address] PCP - General Internal Medicine 10/03/24 documented as of this encounter
--- OUTSIDE RECORDS SUMMARY | 2024-11-11 02:09 | XMS_ITS | Encounter Summary ---
Author Organization [facility] Address [address] [place] [address] Phone Care Team Providers Care Passenger Vessel Chef Name Role Phone Rick Carpio MD Primary Care Provider [phone] Encounter Details Date Type Department Care Team (Late st Contact Info) Description 10/20/2024 Telephone [facility] Surgery [address] 6[address] [place] [address] [place] [address] Jeni Parsons RN Social History Tobacco Use Types Packs/Day Years Used Date Smoking Tobacco: Former Passive Smoke Exposure: Past Smokeless Tobacco: Never Social Connection and Isolation Panel [NHANES] A nswer Date Recorded In a typical week, how many times do you talk on the phone with family, friends, or neighbors? Three times a week 08/07/2021 How often do you get togethe r with friends or relatives? Three times a week 08/07/2021 How often do you attend chur ch or hinduism services? Never 08/07/2021 Do you belong to any clubs o r organizations such as congregation groups, unions, fraternal or athletic groups, or [...] place to sleep or slept in a jail (including now)? No 08/07/2021 Personal Safety Answer Date Recorded Have you ever been in or are you currently in a harmful physical or emotional relationship or is someone making you feel afraid or unsafe? Denies 09/28/2024 Sex and Gender Information Value Date Recorded Sex Assigned at Not on file Legal Sex Male 5:38 AM COMMERCIAL CORRESPONDENT Gender Identity Male 05/21/2022 3:19 PM CDT Sexual Orientation Straight 05/21/2022 3: 19 PM CDT documented as of this encounter Miscellaneous Notes * Telephone Encounter - Jeni Parsons RN - 10/20/2024 11:25 AM CST I spoke with Medicine Resident Dr. Gonzalez via POW secure chat who confirmed that the port was not placed by us nor is it managed by us. I let Dahlia know this information. ----- Message from Nurse Jeni Wilson sent at 10/19/2024 5:54 PM COMMERCIAL CORRESPONDENT ----- Regarding: FW: Nurse - Requesting information paperwork ----- Message ----- From: Ken Ruvalcaba Sent: 10/18/2024 12:11 PM COMMERCIAL CORRESPONDENT To: Emir Wolfe [facility] Admin Pool Subject: Nurse - Requesting information paperwork Patient Query: Was an attempt to transfer to the assigned clinical staff or backline? Backline - no answer after 5rings I was trying to contact nurseline but got no answer Dahlia from [facility] unit needed to speak to them. Reason for call?: Dahlia from [facility] needs to know information on paper work weather its a port rudolph or pick line about a discharge from either of them lines. Could someone please contact Dahlia back Who is the caller: Dahlia (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 Source: [facility] [employer]. 11/17/2023 documented as of this encounter Care Teams Passenger Vessel Chef Relationship Specialty Start Date End Date Rick Carpio MD [address] [place] [address] PCP - General Internal Medicine 10/03/24 documented as of this encounter
--- OUTSIDE RECORDS SUMMARY | 2024-11-11 02:09 | XMS_ITS | Encounter Summary ---
Author Organization [facility] Address [address] [place] [address] Phone Care Team Providers Care Public Health Veterinarian Name Role Phone Rick Carpio MD Primary Care Provider [phone] Encounter Details Date Type Department Care Team (Late st Contact Info) Description 10/04/2024 Treatment [facility] Infectious Diseases [address] [place] [address] [address] [place] [id number] Derick Camargo MD [address] [facility] [address] [place] [address] Social History Tobacco Use Types Packs/Day Years [...] often do you attend chur ch or presybeterian services? Never 08/07/2021 Do you belong to any clubs o r organizations such as hindu groups, unions, fraternal or athletic groups, or [...] place to sleep or slept in a alf (including now)? No 08/07/2021 Personal Safety Answer Date Recorded Have you ever been in or are you currently in a harmful physical or emotional relationship or is someone making you feel afraid or unsafe? 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 Source: [facility]. 11/17/2023 C. difficile suspected 10/05/2024 10/05/202410/06 5:07 AM K 12 PRINCIPAL documented as of this encounter Care Teams Public Health Veterinarian Relationship Specialty Start Date End Date Rick Carpio MD [address] [place] [address] PCP - General Internal Medicine 10/03/24 documented as of this encounter
--- OUTSIDE RECORDS SUMMARY | 2024-11-11 02:09 | XMS_ITS | Encounter Summary ---
Author Organization [facility] Address [address] [place] [address] Phone Care Team Providers Care Wire Weaver Cloth Name Role Phone Rick Carpio MD Primary Care Provider [phone] Encounter Details Date Type Department Care Team (Late st Contact Info) Description 10/04/2024 Documentation [facility] Infectious Diseases [address] [place] [address] [address] [place] [id number] Derick Camargo MD [address] [facility] [address] [place] [address] Social History Tobacco Use Types Packs/Day Years [...] often do you attend chur ch or judaism services? Never 08/07/2021 Do you belong to any clubs o r organizations such as jehovah's witness groups, unions, fraternal or athletic groups, or [...] on file Legal Sex Male 5:38 AM RETORT CONDENSER ATTENDANT Gender Identity Male 05/21/2022 3:19 PM CDT Sexual Orientation Straight 05/21/2022 3: 19 PM CDT documented as of this encounter Miscellaneous Notes * Summary of Treatment Recommendations Non-Billable - Derick Camargo MD - 10/04/2024 6:46 AM CST Images from the original note were not included. Infectious Diseases Infectious Diseases OPAT Sign Off Note (NON-CONTRACTED WITH [facility]) Primary Team: Please include this information in the discharge summary to the patient's primary provider: The following patient is being discharged from [facility] or [facility] on IV antibiotics. Please see below for recommendations from the Infectious Diseases inpatient consult teamregarding management. Routine monitoring labs and dose adjustments are the responsibility of your clinical providers and are NOT being followed by [facility] while the patient is receiving IV antibiotics. Patient has insurance that is non-contracted with [facility] clinic. It is now the responsibility of theprimary team to find and set up ID follow up prior to discharge. Once an outpatient ID provider is identified we are more than happy to communicate with them if needed, but [facility] will not be responsible for post- discharge antibiotics or management. If the patient's insurance changes after this notewas signed, please reach out to the ID consult team to reassess. General Information OPAT Program: Non [facility] Team: Gen ID 3 Responsible ID Provider: Argelia Acosta Antibiotic Indication: SSTI/surgical site infection Antibiotics start date: 09/29/24 Antibiotics start date reason: The Day of Surgical debridement of decubitus ulcer Firm stop: Yes Antibiotics anticipated stop date: 10/13/24 Pathogens: Not isolated Recommended Clinic Follow-up: Other Other details: ID follow up not required Imaging Recommended Before Follow-up: No imaging Antimicrobials Antimicrobials A-L: Ceftriaxone Antimicrobial Routes Ceftriaxone Route: Infusion Metronidazole Route: PO Parenteral Antimicrobials Ceftriaxone Dose: 2 g Ceftriaxone Frequency: Every 24 hours Ceftriaxone Start Date: 09/29/24 PO Antimicrobials Metronidazole PO Frequency: Every 12 hours Metronidazole PO Start Date: 09/29/24 Labs Labs - Weekly Labs: CBC with diff and platelet, CMP OPAT Summary of Consult Summary of Consult: 39 y.o. 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 Afebrile, tachycardic, but stable on admit. Found to have large decubitus wounds with necrosis and purulence with leukocytosis. CT c/f acute ischial and sacral OM with phlegmon posterior to sacrum and progressive osseous destruction. OR 09/29 with general surgery for excisional debridement of theskin, subc tissue, fascia and bone. 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 Patient will be having a diversion colostomy later on at [facility], PRS might plan for flap surgery then. Hence will plan on treating for a 2 week short duration course from the day of his debridement for SSTI. We therefore recommend 2 weeks of Ceftriaxone 2g IV q24h [...] would recommend re-involving ID for antibiotic guidance. 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 Source: [facility] [employer]. 11/17/2023 C. difficile suspected 10/05/2024 10/05/202410/06 5:07 AM RETORT CONDENSER ATTENDANT documented as of this encounter Care Teams Wire Weaver Cloth Relationship Specialty Start Date End Date Rick Carpio MD [address] [place] [address] PCP - General Internal Medicine 10/03/24 documented as of this encounter
--- OUTSIDE RECORDS SUMMARY | 2024-11-11 02:09 | XMS_ITS | Referral Summary ---
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 DEVELOPMENT MANAGER) eGFR >90 >=60 mL/min/1. 73 m2 Comment: [...] last reviewed 2021. Blood 10/07/2024 3:16 AM SALES DEVELOPMENT MANAGER 10/07/2024 3:31 AM SALES DEVELOPMENT MANAGER Yoseph Golden MD LAB BLOOD ORDERABLES Final Resul t [facility] Department [place] [address] * (ABNORMAL) Differential, auto (10/07/2024 3:16 AM SALES DEVELOPMENT MANAGER) Neutrophil abs 5.6 1.5 - 6.5 K/cumm Imm gran abs 0.3(H) 0.0 - 0.1 K/cumm [facility] Lymphocyte abs 2.6 0.8 - 3.3 K/cumm [facility] Monocyte abs 0.8 0.2 - 0.8 K/cumm [facility] Eosinophil abs 0.2 0.0 - 0.5 K/cumm [facility] Basophil abs 0.0 0.0 - 0.1 K/cumm [facility] Neutrophil pct 58.9 % [facility] Comment: Interpretive Data Percent cell count reference ranges are not reported, since discordance with absolute values may lead to misinterpretation of CBC data. Current Interpretive Data was last revised on 2018. Imm gran pct 2.6 % [facility] Comment: Interpretive Data Percent cell count reference ranges are not reported, since discordance with absolute values may lead to misinterpretation of CBC data. Current Interpretive Data was last revised on 2018. Lymphocyte pct 27.7 % [facility] Comment: Interpretive Data Percent cell count reference ranges are not reported, since discordance with absolute values may lead to misinterpretation of CBC data. Current Interpretive Data was last revised on 2018. Monocyte pct 8.4 % [facility] Comment: Interpretive Data Percent cell count reference ranges are not reported, since discordance with absolute values may lead to misinterpretation of CBC data. Current Interpretive Data was last revised on 2018. Eosinophil pct 2.2 % [facility] Comment: Interpretive Data Percent cell count reference ranges are not reported, since discordance with absolute values may lead to misinterpretation of CBC data. Current Interpretive Data was last revised on 2018. Basophil pct 0.2 % [facility] Comment: Interpretive Data Percent cell count reference ranges are not reported, since discordance with absolute values may lead to misinterpretation of CBC data. Current Interpretive Data was last revised on 2018. Blood 10/07/2024 3:16 AM SALES DEVELOPMENT MANAGER 10/07/2024 3:31 AM SALES DEVELOPMENT MANAGER us Yoseph Golden MD LAB BLOOD ORDERABLES Final Resul t [facility] Department [place] [address] * (ABNORMAL) CBC with auto differential (10/07/2024 3:16 AM SALES DEVELOPMENT MANAGER) WBC 9.5 3.8 - 9.9 K/cumm Hgb 7.4(L) 13.0 - 17.5 g/dL [facility] Hct 24.6(L) 38.9 - 50.3 % [facility] Plt 400 150 - 400 K/cumm [facility] MPV 9.9 9.1 - 12.3 fL [facility] RBC 3.33(L) 4.30 - 5.80 M/cumm [facility] MCV 73.9(L) 81.3 - 96.4 fL [facility] MCH 22.2(L) 27.1 - 33.3 pg [facility] MCHC 30.1(L) 32.3 - 35.7 g/dL [facility] RDW CV 19.8(H) 11.1 - 14.9 % [facility] RDW SD 49.8(H) 35.7 - 48.1 fL [facility] NRBC abs 0.00 0.00 - 0.01 K/cumm [facility] Blood 10/07/2024 3:16 AM SALES DEVELOPMENT MANAGER 10/07/2024 3:31 AM SALES DEVELOPMENT MANAGER us Yoseph Golden MD LAB BLOOD ORDERABLES Final Resul t [facility] Department [place] [address] * (ABNORMAL) Comprehensive metabolic panel (10/07/2024 3:16 AM SALES DEVELOPMENT MANAGER) Pathologist [facility] Sodium 138 135 - 145 mmol/L Potassium, pl 4.3 3.3 - 4.9 mmol/L [facility] Chloride 106 97 - 110 mmol/L [facility] CO2 26 22 - 32 mmol/L [facility] Anion gap 6 2 - 15 mmol/L [facility] BUN 12 6 - 25 mg/dL [facility] Creatinine 0.52(L) 0.80 - 1.30 mg/dL [facility] Glucose 100 70 - 199 mg/dL [facility] Comment: Interpretive Data Fasting glucose >/= 126 [...] 2022. Calcium 8.4(L) 8.5 - 10.3 mg/dL [facility] Bilirubin, total <0.2 0.1 - 1.2 mg/dL [facility] Comment:Repeated and Verifie d Protein, pl 6.9 6.5 - 8.5 g/dL [facility] Albumin 2.6(L) 3.5 - 5.0 g/dL [facility] Alk phos 93 40 - 130 Units/L [facility] ALT 9 7 - 55 Units/L [facility] AST 11 10 - 50 Units/L [facility] Blood 10/07/2024 3:16 AM SALES DEVELOPMENT MANAGER 10/07/2024 3:31 AM SALES DEVELOPMENT MANAGER us Yoseph Golden MD LAB BLOOD ORDERABLES Final Resul t Performing Organization Address City/[facility] Co de Phone Number JUAN OLIVIA [facility] Department [place] [address] * eGFR (10/06/2024 6:15 AM SALES DEVELOPMENT MANAGER) eGFR >90 >=60 mL/min/1. 73 m2 Comment: [...] last reviewed 2021. Blood 10/06/2024 6:15 AM SALES DEVELOPMENT MANAGER 10/06/2024 7:05 AM SALES DEVELOPMENT MANAGER us Yoseph Golden MD LAB BLOOD ORDERABLES Final Resul t Performing Organization Address [facility] Co de Phone Number JUAN RONQUILLO [facility] Department [place] [address] * (ABNORMAL) Differential, auto (10/06/2024 6:15 AM SALES DEVELOPMENT MANAGER) Neutrophil abs 6.5 1.5 - 6.5 K/cumm Imm gran abs 0.4(H) 0.0 - 0.1 K/cumm [facility] Lymphocyte abs 2.5 0.8 - 3.3 K/cumm [facility] Monocyte abs 1.2(H) 0.2 - 0.8 K/cumm [facility] Eosinophil abs 0.3 0.0 - 0.5 K/cumm [facility] Basophil abs 0.0 0.0 - 0.1 K/cumm [facility] Neutrophil pct 59.5 % [facility] Comment: Interpretive Data Percent cell count reference ranges are not reported, since discordance with absolute values may lead to misinterpretation of CBC data. Current Interpretive Data was last revised on 2018. Imm gran pct 4.0 % [facility] Comment: Interpretive Data Percent cell count reference ranges are not reported, since discordance with absolute values may lead to misinterpretation of CBC data. Current Interpretive Data was last revised on 2018. Lymphocyte pct 23.0 % [facility] Comment: Interpretive Data Percent cell count reference ranges are not reported, since discordance with absolute values may lead to misinterpretation of CBC data. Current Interpretive Data was last revised on 2018. Monocyte pct 10.6 % [facility] Comment: Interpretive Data Percent cell count reference ranges are not reported, since discordance with absolute values may lead to misinterpretation of CBC data. Current Interpretive Data was last revised on 2018. Eosinophil pct 2.5 % [facility] Comment: Interpretive Data Percent cell count reference ranges are not reported, since discordance with absolute values may lead to misinterpretation of CBC data. Current Interpretive Data was last revised on 2018. Basophil pct 0.4 % [facility] Comment: Interpretive Data Percent cell count reference ranges are not reported, since discordance with absolute values may lead to misinterpretation of CBC data. Current Interpretive Data was last revised on 2018. Blood 10/06/2024 6:15 AM SALES DEVELOPMENT MANAGER 10/06/2024 7:01 AM SALES DEVELOPMENT MANAGER us Yoseph Golden MD LAB BLOOD ORDERABLES Final Resul t Performing Organization Address [facility] Co de Phone Number [facility] Department [place] [address] * (ABNORMAL) CBC with auto differential (10/06/2024 6:15 AM SALES DEVELOPMENT MANAGER) WBC 10.9(H) 3.8 - 9.9 K/cumm Hgb 7.4(L) 13.0 - 17.5 g/dL [facility] Hct 24.4(L) 38.9 - 50.3 % [facility] Plt 401(H) 150 - 400 K/cumm [facility] MPV 9.7 9.1 - 12.3 fL [facility] RBC 3.31(L) 4.30 - 5.80 M/cumm [facility] MCV 73.7(L) 81.3 - 96.4 fL [facility] MCH 22.4(L) 27.1 - 33.3 pg [facility] MCHC 30.3(L) 32.3 - 35.7 g/dL [facility] RDW CV 19.7(H) 11.1 - 14.9 % [facility] RDW SD 49.0(H) 35.7 - 48.1 fL [facility] NRBC abs 0.00 0.00 - 0.01 K/cumm [facility] Blood 10/06/2024 6:15 AM SALES DEVELOPMENT MANAGER 10/06/2024 7:01 AM SALES DEVELOPMENT MANAGER us Yoseph Golden MD LAB BLOOD ORDERABLES Final Resul t Performing Organization Address City/[facility]/ZIP Co de Phone Number [facility] [place] [address] * Phosphorus (10/06/2024 6:15 AM SALES DEVELOPMENT MANAGER) Phosphorus, pl 3.9 2.3 - 4.5 mg/dL Blood 10/06/2024 6:15 AM SALES DEVELOPMENT MANAGER 10/06/2024 7:05 AM SALES DEVELOPMENT MANAGER Kathia Ruiz MD LAB BLOOD ORDERABLES Jessica l Result Performing Organization Address City/[facility] Co de Phone Number [facility] [place] [address] * Magnesium (10/06/2024 6:15 AM SALES DEVELOPMENT MANAGER) [facility] Magnesium 2.0 1.4 - 2.5 mg/dL Blood 10/06/2024 6:15 AM SALES DEVELOPMENT MANAGER 10/06/2024 7:05 AM SALES DEVELOPMENT MANAGER Kathia Ruiz MD LAB BLOOD ORDERABLES Jessica l Result Performing Organization Address [facility] de Phone Number [facility] [place] [address] * (ABNORMAL) Comprehensive metabolic panel (10/06/2024 6:15 AM SALES DEVELOPMENT MANAGER) [facility] Sodium 141 135 - 145 mmol/L Potassium, pl 3.7 3.3 - 4.9 mmol/L [facility] Chloride 108 97 - 110 mmol/L [facility] CO2 25 22 - 32 mmol/L [facility] Anion gap 8 2 - 15 mmol/L [facility] BUN 12 6 - 25 mg/dL [facility] Creatinine 0.58(L) 0.80 - 1.30 mg/dL [facility] Glucose 88 70 - 199 mg/dL [facility] Comment: Interpretive Data Fasting glucose >/= 126 [...] 2022. Calcium 8.2(L) 8.5 - 10.3 mg/dL [facility] Bilirubin, total 0.2 0.1 - 1.2 mg/dL [facility] Comment:Reviewed Protein, pl 6.7 6.5 - 8.5 g/dL [facility] Albumin 3.0(L) 3.5 - 5.0 g/dL [facility] Alk phos 88 40 - 130 Units/L [facility] ALT 10 7 - 55 Units/L [facility] AST 5(L) 10 - 50 Units/L [facility] Blood 10/06/2024 6:15 AM SALES DEVELOPMENT MANAGER 10/06/2024 7:05 AM SALES DEVELOPMENT MANAGER us Yoseph Golden MD LAB BLOOD ORDERABLES Final Resul t Performing Organization Address City/[facility] Co de Phone Number [facility] [place] [address] * C. difficile testing Stool (10/05/2024 9:43 PM SALES DEVELOPMENT MANAGER) [facility] Result Negative Negative Toxin Result Negative Negative [facility] C. diff result Negative, free toxin Negative, free toxin [facility] C. diff interp Negative for toxigenic Clostridioides (Clostridium) difficile. Analysis was performed using a glutamate dehydrogenase antigen detection assay combined with a C. difficile toxin detection assay. [facility] Stool 10/05/2024 9:43 PM SALES DEVELOPMENT MANAGER 10/05/2024 11:54 PM SALES DEVELOPMENT MANAGER us Yoseph Golden MD LAB MICROBIOLOGY - GENERAL ORDER WHITNEY Final Result Performing Organization Address City/[facility]/ZIP Co de Phone Number [facility] [place] [address] * Infection Prevention VRE Culture Stool (10/05/2024 9:43 PM SALES DEVELOPMENT MANAGER) Report Final Report: Negative Stool 10/05/2024 9:43 PM SALES DEVELOPMENT MANAGER 10/06/2024 4:23 AM SALES DEVELOPMENT MANAGER Narrative JUAN RONQUILLO - 10/08/2024 7:57 AM SALES DEVELOPMENT MANAGER Surveillance culture for Infection Prevention purposes only; results indicate colonization, not infection requiring treatment. Testing performed by [facility] ([phone]). Yoseph Golden MD LAB MICROBIOLOGY - GENERAL ORDER WHITNEY Final Result JUAN RONQUILLO [facility] Department [place] [address] * eGFR (10/05/2024 8:13 AM SALES DEVELOPMENT MANAGER) eGFR >90 >=60 mL/min/1. 73 m2 Comment: [...] last reviewed 2021. Blood 10/05/2024 8:13 AM SALES DEVELOPMENT MANAGER 10/05/2024 8:53 AM SALES DEVELOPMENT MANAGER us Yoseph Golden MD LAB BLOOD ORDERABLES Final Resul t [facility] Department [place] [address] * (ABNORMAL) Differential, auto (10/05/2024 8:13 AM SALES DEVELOPMENT MANAGER) Neutrophil abs 6.4 1.5 - 6.5 K/cumm Imm gran abs 0.5(H) 0.0 - 0.1 K/cumm [facility] Lymphocyte abs 2.1 0.8 - 3.3 K/cumm [facility] Monocyte abs 1.1(H) 0.2 - 0.8 K/cumm [facility] Eosinophil abs 0.3 0.0 - 0.5 K/cumm [facility] Basophil abs 0.0 0.0 - 0.1 K/cumm [facility] Neutrophil pct 62.0 % [facility] Comment: Interpretive Data Percent cell count reference ranges are not reported, since discordance with absolute values may lead to misinterpretation of CBC data. Current Interpretive Data was last revised on 2018. Imm gran pct 4.3 % [facility] Comment: Interpretive Data Percent cell count reference ranges are not reported, since discordance with absolute values may lead to misinterpretation of CBC data. Current Interpretive Data was last revised on 2018. Lymphocyte pct 20.2 % [facility] Comment: Interpretive Data Percent cell count reference ranges are not reported, since discordance with absolute values may lead to misinterpretation of CBC data. Current Interpretive Data was last revised on 2018. Monocyte pct 10.7 % [facility] Comment: Interpretive Data Percent cell count reference ranges are not reported, since discordance with absolute values may lead to misinterpretation of CBC data. Current Interpretive Data was last revised on 2018. Eosinophil pct 2.5 % [facility] Comment: Interpretive Data Percent cell count reference ranges are not reported, since discordance with absolute values may lead to misinterpretation of CBC data. Current Interpretive Data was last revised on 2018. Basophil pct 0.3 % [facility] Comment: Interpretive Data Percent cell count reference ranges are not reported, since discordance with absolute values may lead to misinterpretation of CBC data. Current Interpretive Data was last revised on 2018. Blood 10/05/2024 8:13 AM SALES DEVELOPMENT MANAGER 10/05/2024 8:52 AM SALES DEVELOPMENT MANAGER Yoseph Golden MD LAB BLOOD ORDERABLES Final Resul t Performing Organization Address [facility] de Phone Number [facility] [place] [address] * (ABNORMAL) CBC with auto differential (10/05/2024 8:13 AM SALES DEVELOPMENT MANAGER) WBC 10.4(H) 3.8 - 9.9 K/cumm Hgb 7.8(L) 13.0 - 17.5 g/dL [facility] Hct 25.9(L) 38.9 - 50.3 % [facility] Plt 423(H) 150 - 400 K/cumm [facility] MPV 9.8 9.1 - 12.3 fL [facility] RBC 3.45(L) 4.30 - 5.80 M/cumm [facility] MCV 75.1(L) 81.3 - 96.4 fL [facility] MCH 22.6(L) 27.1 - 33.3 pg [facility] MCHC 30.1(L) 32.3 - 35.7 g/dL [facility] RDW CV 19.2(H) 11.1 - 14.9 % [facility] RDW SD 48.6(H) 35.7 - 48.1 fL [facility] NRBC abs 0.00 0.00 - 0.01 K/cumm [facility] Blood 10/05/2024 8:13 AM SALES DEVELOPMENT MANAGER 10/05/2024 8:52 AM SALES DEVELOPMENT MANAGER Yoseph Golden MD LAB BLOOD ORDERABLES Final Resul t Performing Organization Address [facility] Co de Phone Number [facility] [place] [address] * Phosphorus (10/05/2024 8:13 AM SALES DEVELOPMENT MANAGER) Pathologist [facility] Phosphorus, pl 3.8 2.3 - 4.5 mg/dL Blood 10/05/2024 8:13 AM SALES DEVELOPMENT MANAGER 10/05/2024 8:39 AM SALES DEVELOPMENT MANAGER Yoseph Golden MD LAB BLOOD ORDERABLES Final Resul t Performing Organization Address City/[facility] de Phone Number [facility] Department [place] [address] * Magnesium (10/05/2024 8:13 AM SALES DEVELOPMENT MANAGER) [facility] Magnesium 2.1 1.4 - 2.5 mg/dL Blood 10/05/2024 8:13 AM SALES DEVELOPMENT MANAGER 10/05/2024 8:39 AM SALES DEVELOPMENT MANAGER Yoseph Golden MD LAB BLOOD ORDERABLES Final Resul t Performing Organization Address [facility] de Phone Number [facility] [place] [address] * (ABNORMAL) Comprehensive metabolic panel (10/05/2024 8:13 AM SALES DEVELOPMENT MANAGER) [facility] Sodium 139 135 - 145 mmol/L Potassium, pl 4.1 3.3 - 4.9 mmol/L [facility] Chloride 109 97 - 110 mmol/L [facility] CO2 25 22 - 32 mmol/L [facility] Anion gap 5 2 - 15 mmol/L [facility] BUN 14 6 - 25 mg/dL [facility] Creatinine 0.54(L) 0.80 - 1.30 mg/dL [facility] Glucose 91 70 - 199 mg/dL [facility] Comment: Interpretive Data Fasting glucose >/= 126 [...] 2022. Calcium 8.4(L) 8.5 - 10.3 mg/dL [facility] Bilirubin, total <0.2 0.1 - 1.2 mg/dL [facility] Protein, pl 7.0 6.5 - 8.5 g/dL [facility] Albumin 2.6(L) 3.5 - 5.0 g/dL [facility] Alk phos 98 40 - 130 Units/L [facility] ALT 9 7 - 55 Units/L [facility] AST 10 10 - 50 Units/L [facility] Blood 10/05/2024 8:13 AM SALES DEVELOPMENT MANAGER 10/05/2024 8:39 AM SALES DEVELOPMENT MANAGER Yoseph Golden MD LAB BLOOD ORDERABLES Final Resul t [facility] Department [place] [address] * eGFR (10/04/2024 6:24 AM SALES DEVELOPMENT MANAGER) eGFR >90 >=60 mL/min/1. 73 m2 Comment: [...] last reviewed 2021. Blood 10/04/2024 6:24 AM SALES DEVELOPMENT MANAGER 10/04/2024 6:49 AM SALES DEVELOPMENT MANAGER us Yoseph Golden MD LAB BLOOD ORDERABLES Final Resul t [facility] Department [place] [address] * (ABNORMAL) Differential, auto (10/04/2024 6:24 AM SALES DEVELOPMENT MANAGER) Neutrophil abs 7.0(H) 1.5 - 6.5 K/cumm Imm gran abs 0.5(H) 0.0 - 0.1 K/cumm [facility] Lymphocyte abs 2.2 0.8 - 3.3 K/cumm [facility] Monocyte abs 1.1(H) 0.2 - 0.8 K/cumm [facility] Eosinophil abs 0.4 0.0 - 0.5 K/cumm [facility] Basophil abs 0.0 0.0 - 0.1 K/cumm [facility] Neutrophil pct 62.8 % [facility] Comment: Interpretive Data Percent cell count reference ranges are not reported, since discordance with absolute values may lead to misinterpretation of CBC data. Current Interpretive Data was last revised on 2018. Imm gran pct 4.0 % [facility] Comment: Interpretive Data Percent cell count reference ranges are not reported, since discordance with absolute values may lead to misinterpretation of CBC data. Current Interpretive Data was last revised on 2018. Lymphocyte pct 19.4 % [facility] Comment: Interpretive Data Percent cell count reference ranges are not reported, since discordance with absolute values may lead to misinterpretation of CBC data. Current Interpretive Data was last revised on 2018. Monocyte pct 9.9 % [facility] Comment: Interpretive Data Percent cell count reference ranges are not reported, since discordance with absolute values may lead to misinterpretation of CBC data. Current Interpretive Data was last revised on 2018. Eosinophil pct 3.5 % [facility] Comment: Interpretive Data Percent cell count reference ranges are not reported, since discordance with absolute values may lead to misinterpretation of CBC data. Current Interpretive Data was last revised on 2018. Basophil pct 0.4 % [facility] Comment: Interpretive Data Percent cell count reference ranges are not reported, since discordance with absolute values may lead to misinterpretation of CBC data. Current Interpretive Data was last revised on 2018. Blood 10/04/2024 6:24 AM SALES DEVELOPMENT MANAGER 10/04/2024 6:46 AM SALES DEVELOPMENT MANAGER Yoseph Golden MD LAB BLOOD ORDERABLES Final Resul t [facility] Department [place] [address] * (ABNORMAL) CBC with auto differential (10/04/2024 6:24 AM SALES DEVELOPMENT MANAGER) WBC 11.1(H) 3.8 - 9.9 K/cumm Hgb 7.9(L) 13.0 - 17.5 g/dL [facility] Hct 26.2(L) 38.9 - 50.3 % [facility] Plt 435(H) 150 - 400 K/cumm [facility] MPV 10.3 9.1 - 12.3 fL [facility] RBC 3.56(L) 4.30 - 5.80 M/cumm [facility] MCV 73.6(L) 81.3 - 96.4 fL [facility] MCH 22.2(L) 27.1 - 33.3 pg [facility] MCHC 30.2(L) 32.3 - 35.7 g/dL [facility] RDW CV 18.8(H) 11.1 - 14.9 % [facility] RDW SD 47.9 35.7 - 48.1 fL [facility] NRBC abs 0.00 0.00 - 0.01 K/cumm [facility] Blood 10/04/2024 6:24 AM SALES DEVELOPMENT MANAGER 10/04/2024 6:46 AM SALES DEVELOPMENT MANAGER Yoseph Golden MD LAB BLOOD ORDERABLES Final Resul t Performing Organization Address City/[facility] Co de Phone Number [facility] [place] [address] * Phosphorus (10/04/2024 6:24 AM SALES DEVELOPMENT MANAGER) [facility] Phosphorus, pl 3.4 2.3 - 4.5 mg/dL Blood 10/04/2024 6:24 AM SALES DEVELOPMENT MANAGER 10/04/2024 6:49 AM SALES DEVELOPMENT MANAGER Kathia Ruiz MD LAB BLOOD ORDERABLES Jessica l Result Performing Organization Address [facility] de Phone Number [facility] [place] [address] * Magnesium (10/04/2024 6:24 AM SALES DEVELOPMENT MANAGER) [facility] Magnesium 2.1 1.4 - 2.5 mg/dL Blood 10/04/2024 6:24 AM SALES DEVELOPMENT MANAGER 10/04/2024 6:49 AM SALES DEVELOPMENT MANAGER Kathia Ruiz MD LAB BLOOD ORDERABLES Jessica l Result Performing Organization Address [facility] de Phone Number [facility] [place] [address] * (ABNORMAL) Comprehensive metabolic panel (10/04/2024 6:24 AM SALES DEVELOPMENT MANAGER) [facility] Sodium 137 135 - 145 mmol/L Potassium, pl 3.9 3.3 - 4.9 mmol/L [facility] Chloride 109 97 - 110 mmol/L [facility] CO2 24 22 - 32 mmol/L [facility] Anion gap 4 2 - 15 mmol/L [facility] BUN 14 6 - 25 mg/dL [facility] Creatinine 0.56(L) 0.80 - 1.30 mg/dL [facility] Glucose 88 70 - 199 mg/dL [facility] Comment: Interpretive Data Fasting glucose >/= 126 [...] 2022. Calcium 8.2(L) 8.5 - 10.3 mg/dL [facility] Bilirubin, total <0.2 0.1 - 1.2 mg/dL [facility] Protein, pl 6.8 6.5 - 8.5 g/dL [facility] Albumin 2.6(L) 3.5 - 5.0 g/dL [facility] Alk phos 95 40 - 130 Units/L [facility] ALT 11 7 - 55 Units/L [facility] AST 11 10 - 50 Units/L [facility] Blood 10/04/2024 6:24 AM SALES DEVELOPMENT MANAGER 10/04/2024 6:49 AM SALES DEVELOPMENT MANAGER Yoseph Golden MD LAB BLOOD ORDERABLES Final Resul t [facility] Department [place] [address] * eGFR (10/03/2024 5:42 AM SALES DEVELOPMENT MANAGER) eGFR >90 >=60 mL/min/1. 73 m2 Comment: [...] last reviewed 2021. Blood 10/03/2024 5:42 AM SALES DEVELOPMENT MANAGER 10/03/2024 6:39 AM SALES DEVELOPMENT MANAGER us Yoseph Golden MD LAB BLOOD ORDERABLES Final Resul t [facility] Department [place] [address] * (ABNORMAL) Differential, auto (10/03/2024 5:42 AM SALES DEVELOPMENT MANAGER) Neutrophil abs 7.7(H) 1.5 - 6.5 K/cumm Imm gran abs 0.6(H) 0.0 - 0.1 K/cumm [facility] Lymphocyte abs 2.3 0.8 - 3.3 K/cumm [facility] Monocyte abs 1.1(H) 0.2 - 0.8 K/cumm [facility] Eosinophil abs 0.4 0.0 - 0.5 K/cumm [facility] Basophil abs 0.0 0.0 - 0.1 K/cumm [facility] Neutrophil pct 63.6 % [facility] Comment: Interpretive Data Percent cell count reference ranges are not reported, since discordance with absolute values may lead to misinterpretation of CBC data. Current Interpretive Data was last revised on 2018. Imm gran pct 5.2 % [facility] Comment: Interpretive Data Percent cell count reference ranges are not reported, since discordance with absolute values may lead to misinterpretation of CBC data. Current Interpretive Data was last revised on 2018. Lymphocyte pct 19.2 % [facility] Comment: Interpretive Data Percent cell count reference ranges are not reported, since discordance with absolute values may lead to misinterpretation of CBC data. Current Interpretive Data was last revised on 2018. Monocyte pct 8.8 % [facility] Comment: Interpretive Data Percent cell count reference ranges are not reported, since discordance with absolute values may lead to misinterpretation of CBC data. Current Interpretive Data was last revised on 2018. Eosinophil pct 3.0 % [facility] Comment: Interpretive Data Percent cell count reference ranges are not reported, since discordance with absolute values may lead to misinterpretation of CBC data. Current Interpretive Data was last revised on 2018. Basophil pct 0.2 % [facility] Comment: Interpretive Data Percent cell count reference ranges are not reported, since discordance with absolute values may lead to misinterpretation of CBC data. Current Interpretive Data was last revised on 2018. Blood 10/03/2024 5:42 AM SALES DEVELOPMENT MANAGER 10/03/2024 6:18 AM SALES DEVELOPMENT MANAGER us Yoseph Golden MD LAB BLOOD ORDERABLES Final Resul t [facility] [place] [address] * (ABNORMAL) CBC with auto differential (10/03/2024 5:42 AM SALES DEVELOPMENT MANAGER) WBC 12.1(H) 3.8 - 9.9 K/cumm Hgb 7.8(L) 13.0 - 17.5 g/dL [facility] Hct 25.7(L) 38.9 - 50.3 % [facility] Plt 439(H) 150 - 400 K/cumm [facility] MPV 10.5 9.1 - 12.3 fL [facility] RBC 3.45(L) 4.30 - 5.80 M/cumm [facility] MCV 74.5(L) 81.3 - 96.4 fL [facility] MCH 22.6(L) 27.1 - 33.3 pg [facility] MCHC 30.4(L) 32.3 - 35.7 g/dL [facility] RDW CV 18.4(H) 11.1 - 14.9 % [facility] RDW SD 47.9 35.7 - 48.1 fL [facility] NRBC abs 0.00 0.00 - 0.01 K/cumm [facility] Blood 10/03/2024 5:42 AM SALES DEVELOPMENT MANAGER 10/03/2024 6:18 AM SALES DEVELOPMENT MANAGER us Yoseph Golden MD LAB BLOOD ORDERABLES Final Resul t [facility] Department of Bloc [place], [place] [id number] * (ABNORMAL) Prealbumin (10/03/2024 5:42 AM SALES DEVELOPMENT MANAGER) Prealbumin 14.0(L) 20.0 - 40.0 mg/dL Blood 10/03/2024 5:42 AM SALES DEVELOPMENT MANAGER 10/03/2024 6:18 AM SALES DEVELOPMENT MANAGER us Yoseph Golden MD LAB BLOOD ORDERABLES Final Resul t [facility] [place] [address] * Phosphorus (10/03/2024 5:42 AM SALES DEVELOPMENT MANAGER) Phosphorus, pl 3.2 2.3 - 4.5 mg/dL Blood 10/03/2024 5:42 AM SALES DEVELOPMENT MANAGER 10/03/2024 6:29 AM SALES DEVELOPMENT MANAGER Kathia Ruiz MD LAB BLOOD ORDERABLES Jessica l Result Performing Organization Address City/[facility]/ZIP Co de Phone Number [facility] [place] [address] * Magnesium (10/03/2024 5:42 AM SALES DEVELOPMENT MANAGER) Pathologist [facility] Magnesium 2.1 1.4 - 2.5 mg/dL Blood 10/03/2024 5:42 AM SALES DEVELOPMENT MANAGER 10/03/2024 6:29 AM SALES DEVELOPMENT MANAGER Kathia Ruiz MD LAB BLOOD ORDERABLES Jessica l Result Performing Organization Address [facility] de Phone Number [facility] [place] [address] * (ABNORMAL) Comprehensive metabolic panel (10/03/2024 5:42 AM SALES DEVELOPMENT MANAGER) [facility] Sodium 138 135 - 145 mmol/L Potassium, pl 4.0 3.3 - 4.9 mmol/L [facility] Chloride 109 97 - 110 mmol/L [facility] CO2 23 22 - 32 mmol/L [facility] Anion gap 6 2 - 15 mmol/L [facility] BUN 13 6 - 25 mg/dL [facility] Creatinine 0.58(L) 0.80 - 1.30 mg/dL [facility] Glucose 87 70 - 199 mg/dL [facility] Comment: Interpretive Data Fasting glucose >/= 126 [...] 2022. Calcium 8.2(L) 8.5 - 10.3 mg/dL [facility] Bilirubin, total <0.2 0.1 - 1.2 mg/dL [facility] Protein, pl 6.8 6.5 - 8.5 g/dL [facility] Albumin 2.6(L) 3.5 - 5.0 g/dL [facility] Alk phos 97 40 - 130 Units/L [facility] ALT 19 7 - 55 Units/L [facility] AST 18 10 - 50 Units/L [facility] Blood 10/03/2024 5:42 AM SALES DEVELOPMENT MANAGER 10/03/2024 6:29 AM SALES DEVELOPMENT MANAGER Yoseph Golden MD LAB BLOOD ORDERABLES Final Resul t [facility] Department [place] [address] * eGFR (10/02/2024 2:24 AM SALES DEVELOPMENT MANAGER) eGFR >90 >=60 mL/min/1. 73 m2 Comment: [...] last reviewed 2021. Blood 10/02/2024 2:24 AM SALES DEVELOPMENT MANAGER 10/02/2024 3:49 AM SALES DEVELOPMENT MANAGER us Kathia Ruiz MD LAB BLOOD ORDERABLES Jessica cruz Result [facility] Department [place] [address] * (ABNORMAL) Differential, auto (10/02/2024 2:24 AM SALES DEVELOPMENT MANAGER) Pathologist [facility] Neutrophil abs 6.4 1.5 - 6.5 K/cumm Imm gran abs 0.5(H) 0.0 - 0.1 K/cumm [facility] Lymphocyte abs 2.3 0.8 - 3.3 K/cumm [facility] Monocyte abs 0.6 0.2 - 0.8 K/cumm [facility] Eosinophil abs 0.2 0.0 - 0.5 K/cumm [facility] Basophil abs 0.0 0.0 - 0.1 K/cumm [facility] Neutrophil pct 63.5 % [facility] Comment: Interpretive Data Percent cell count reference ranges are not reported, since discordance with absolute values may lead to misinterpretation of CBC data. Current Interpretive Data was last revised on 2018. Imm gran pct 4.7 % [facility] Comment: Interpretive Data Percent cell count reference ranges are not reported, since discordance with absolute values may lead to misinterpretation of CBC data. Current Interpretive Data was last revised on 2018. Lymphocyte pct 22.9 % [facility] Comment: Interpretive Data Percent cell count reference ranges are not reported, since discordance with absolute values may lead to misinterpretation of CBC data. Current Interpretive Data was last revised on 2018. Monocyte pct 6.2 % [facility] Comment: Interpretive Data Percent cell count reference ranges are not reported, since discordance with absolute values may lead to misinterpretation of CBC data. Current Interpretive Data was last revised on 2018. Eosinophil pct 2.4 % [facility] Comment: Interpretive Data Percent cell count reference ranges are not reported, since discordance with absolute values may lead to misinterpretation of CBC data. Current Interpretive Data was last revised on 2018. Basophil pct 0.3 % [facility] Comment: Interpretive Data Percent cell count reference ranges are not reported, since discordance with absolute values may lead to misinterpretation of CBC data. Current Interpretive Data was last revised on 2018. Blood 10/02/2024 2:24 AM SALES DEVELOPMENT MANAGER 10/02/2024 3:49 AM SALES DEVELOPMENT MANAGER us Kathia Ruiz MD LAB BLOOD ORDERABLES Jessica cruz Result [facility] Department [place] [address] * (ABNORMAL) CBC with auto differential (10/02/2024 2:24 AM SALES DEVELOPMENT MANAGER) WBC 10.1(H) 3.8 - 9.9 K/cumm Hgb 7.7(L) 13.0 - 17.5 g/dL [facility] Hct 26.3(L) 38.9 - 50.3 % [facility] Plt 419(H) 150 - 400 K/cumm [facility] MPV 10.6 9.1 - 12.3 fL [facility] RBC 3.58(L) 4.30 - 5.80 M/cumm [facility] MCV 73.5(L) 81.3 - 96.4 fL [facility] MCH 21.5(L) 27.1 - 33.3 pg [facility] MCHC 29.3(L) 32.3 - 35.7 g/dL [facility] RDW CV 18.0(H) 11.1 - 14.9 % [facility] RDW SD 47.5 35.7 - 48.1 fL [facility] NRBC abs 0.00 0.00 - 0.01 K/cumm [facility] Blood 10/02/2024 2:24 AM SALES DEVELOPMENT MANAGER 10/02/2024 3:49 AM SALES DEVELOPMENT MANAGER Kathia Ruiz MD LAB BLOOD ORDERABLES Jessica l Result Performing Organization Address City/[facility] Co de Phone Number [facility] [place] [address] * Magnesium (10/02/2024 2:24 AM SALES DEVELOPMENT MANAGER) [facility] Magnesium 1.9 1.4 - 2.5 mg/dL Blood 10/02/2024 2:24 AM SALES DEVELOPMENT MANAGER 10/02/2024 3:49 AM SALES DEVELOPMENT MANAGER Kathia Ruiz MD LAB BLOOD ORDERABLES Jessica l Result Performing Organization Address [facility] de Phone Number [facility] [place] [address] * (ABNORMAL) Basic metabolic panel (10/02/2024 2:24 AM SALES DEVELOPMENT MANAGER) [facility] Sodium 134(L) 135 - 145 mmol/L Potassium, pl 3.8 3.3 - 4.9 mmol/L [facility] Chloride 107 97 - 110 mmol/L [facility] CO2 23 22 - 32 mmol/L [facility] Anion gap 4 2 - 15 mmol/L [facility] BUN 9 6 - 25 mg/dL [facility] Creatinine 0.65(L) 0.80 - 1.30 mg/dL [facility] Glucose 121 70 - 199 mg/dL [facility] Comment: Interpretive Data Fasting glucose >/= 126 [...] 2022. Calcium 7.8(L) 8.5 - 10.3 mg/dL [facility] Blood 10/02/2024 2:24 AM SALES DEVELOPMENT MANAGER 10/02/2024 3:49 AM SALES DEVELOPMENT MANAGER us Kathia Ruiz MD LAB BLOOD ORDERABLES Jessica cruz Result [facility] Department [place] [address] * eGFR (10/01/2024 2:22 AM SALES DEVELOPMENT MANAGER) eGFR >90 >=60 mL/min/1. 73 m2 Comment: [...] last reviewed 2021. Blood 10/01/2024 2:22 AM SALES DEVELOPMENT MANAGER 10/01/2024 2:49 AM SALES DEVELOPMENT MANAGER us Kathia Ruiz MD LAB BLOOD ORDERABLES Jessica cruz Result [facility] Department [place] [address] * (ABNORMAL) Differential, auto (10/01/2024 2:22 AM SALES DEVELOPMENT MANAGER) Neutrophil abs 7.5(H) 1.5 - 6.5 K/cumm Imm gran abs 0.5(H) 0.0 - 0.1 K/cumm [facility] Lymphocyte abs 2.1 0.8 - 3.3 K/cumm [facility] Monocyte abs 0.8 0.2 - 0.8 K/cumm [facility] Eosinophil abs 0.2 0.0 - 0.5 K/cumm [facility] Basophil abs 0.0 0.0 - 0.1 K/cumm [facility] Neutrophil pct 67.6 % [facility] Comment: Interpretive Data Percent cell count reference ranges are not reported, since discordance with absolute values may lead to misinterpretation of CBC data. Current Interpretive Data was last revised on 2018. Imm gran pct 4.1 % [facility] Comment: Interpretive Data Percent cell count reference ranges are not reported, since discordance with absolute values may lead to misinterpretation of CBC data. Current Interpretive Data was last revised on 2018. Lymphocyte pct 19.2 % [facility] Comment: Interpretive Data Percent cell count reference ranges are not reported, since discordance with absolute values may lead to misinterpretation of CBC data. Current Interpretive Data was last revised on 2018. Monocyte pct 7.0 % [facility] Comment: Interpretive Data Percent cell count reference ranges are not reported, since discordance with absolute values may lead to misinterpretation of CBC data. Current Interpretive Data was last revised on 2018. Eosinophil pct 1.8 % [facility] Comment: Interpretive Data Percent cell count reference ranges are not reported, since discordance with absolute values may lead to misinterpretation of CBC data. Current Interpretive Data was last revised on 2018. Basophil pct 0.3 % [facility] Comment: Interpretive Data Percent cell count reference ranges are not reported, since discordance with absolute values may lead to misinterpretation of CBC data. Current Interpretive Data was last revised on 2018. Blood 10/01/2024 2:22 AM SALES DEVELOPMENT MANAGER 10/01/2024 2:49 AM SALES DEVELOPMENT MANAGER Kathia Ruiz MD LAB BLOOD ORDERABLES Jessica l Result Performing Organization Address [facility] Co de Phone Number [facility] Department [place] [address] * (ABNORMAL) CBC with auto differential (10/01/2024 2:22 AM SALES DEVELOPMENT MANAGER) WBC 11.1(H) 3.8 - 9.9 K/cumm Hgb 8.0(L) 13.0 - 17.5 g/dL [facility] Hct 26.7(L) 38.9 - 50.3 % [facility] Plt 434(H) 150 - 400 K/cumm [facility] MPV 10.7 9.1 - 12.3 fL [facility] RBC 3.65(L) 4.30 - 5.80 M/cumm [facility] MCV 73.2(L) 81.3 - 96.4 fL [facility] MCH 21.9(L) 27.1 - 33.3 pg [facility] MCHC 30.0(L) 32.3 - 35.7 g/dL [facility] RDW CV 17.4(H) 11.1 - 14.9 % [facility] RDW SD 46.3 35.7 - 48.1 fL [facility] NRBC abs 0.00 0.00 - 0.01 K/cumm [facility] Blood 10/01/2024 2:22 AM SALES DEVELOPMENT MANAGER 10/01/2024 2:49 AM SALES DEVELOPMENT MANAGER Kathia Ruiz MD LAB BLOOD ORDERABLES Jessica cruz Result Performing Organization Address [facility] Co de Phone Number [facility] [place] [address] * (ABNORMAL) aPTT (10/01/2024 2:22 AM SALES DEVELOPMENT MANAGER) Pathologist [facility] aPTT 39(H) 28 - 38 sec Comment: Interpretive Data Heparin therapeutic range: 66.0 - 100.0 seconds. Range based on correlation with therapeutic heparin activity range of 0.3 - 0.7 Units/mL. Current interpretive data was last revised on 2023. Blood 10/01/2024 2:22 AM SALES DEVELOPMENT MANAGER 10/01/2024 2:54 AM SALES DEVELOPMENT MANAGER Kathia Ruiz MD LAB BLOOD ORDERABLES Jessica l Result Performing Organization Address [facility] [place] [address] * (ABNORMAL) Protime-INR (10/01/2024 2:22 AM SALES DEVELOPMENT MANAGER) Pathologist [facility] PT 15.9(H) 9.7 - 13.0 sec INR 1.46(H) 0.90 - 1.20 [facility] Comment: Interpretive data Oral anticoagulant therapeutic ranges: Venous thromboembolism prophylaxis or treatment: 2.0-3.0 CARDIOLOGY Standard range: 2.0-3.0 High-intensity range: 2.5-3.5 Refer to indication-specific guidelines for appropriate target ranges for prosthetic heart valve replacement. Current interpretive data was last revised on 2019. Blood 10/01/2024 2:22 AM SALES DEVELOPMENT MANAGER 10/01/2024 2:54 AM SALES DEVELOPMENT MANAGER Kathia Ruiz MD LAB BLOOD ORDERABLES Jessica l Result Performing Organization Address [facility] [place] [address] * (ABNORMAL) Basic metabolic panel (10/01/2024 2:22 AM SALES DEVELOPMENT MANAGER) Pathologist [facility] Sodium 136 135 - 145 mmol/L Potassium, pl 3.4 3.3 - 4.9 mmol/L [facility] Chloride 105 97 - 110 mmol/L [facility] CO2 23 22 - 32 mmol/L [facility] Anion gap 8 2 - 15 mmol/L [facility] BUN 8 6 - 25 mg/dL [facility] Creatinine 0.70(L) 0.80 - 1.30 mg/dL [facility] Glucose 105 70 - 199 mg/dL [facility] Comment: Interpretive Data Fasting glucose >/= 126 [...] 2022. Calcium 8.0(L) 8.5 - 10.3 mg/dL [facility] Blood 10/01/2024 2:22 AM SALES DEVELOPMENT MANAGER 10/01/2024 2:49 AM SALES DEVELOPMENT MANAGER us Kathia Ruiz MD LAB BLOOD ORDERABLES Jessica cruz Result [facility] Department [place] [address] * eGFR (09/29/2024 4:17 PM SALES DEVELOPMENT MANAGER) [facility] eGFR >90 >=60 mL/min/1. 73 m2 Comment: [...] last reviewed 2021. Blood 09/29/2024 4:17 PM SALES DEVELOPMENT MANAGER 09/29/2024 4:57 PM SALES DEVELOPMENT MANAGER Kathia Ruiz MD LAB BLOOD ORDERABLES Jessica cruz Result [facility] Department [place] [address] * (ABNORMAL) Differential, auto (09/29/2024 4:17 PM SALES DEVELOPMENT MANAGER) Neutrophil abs 8.2(H) 1.5 - 6.5 K/cumm Imm gran abs 0.1 0.0 - 0.1 K/cumm [facility] Lymphocyte abs 0.8 0.8 - 3.3 K/cumm [facility] Monocyte abs 0.3 0.2 - 0.8 K/cumm [facility] Eosinophil abs 0.1 0.0 - 0.5 K/cumm [facility] Basophil abs 0.0 0.0 - 0.1 K/cumm [facility] Neutrophil pct 86.8 % [facility] Comment: Interpretive Data Percent cell count reference ranges are not reported, since discordance with absolute values may lead to misinterpretation of CBC data. Current Interpretive Data was last revised on 2018. Imm gran pct 1.2 % [facility] Comment: Interpretive Data Percent cell count reference ranges are not reported, since discordance with absolute values may lead to misinterpretation of CBC data. Current Interpretive Data was last revised on 2018. Lymphocyte pct 8.0 % [facility] Comment: Interpretive Data Percent cell count reference ranges are not reported, since discordance with absolute values may lead to misinterpretation of CBC data. Current Interpretive Data was last revised on 2018. Monocyte pct 2.6 % [facility] Comment: Interpretive Data Percent cell count reference ranges are not reported, since discordance with absolute values may lead to misinterpretation of CBC data. Current Interpretive Data was last revised on 2018. Eosinophil pct 1.3 % [facility] Comment: Interpretive Data Percent cell count reference ranges are not reported, since discordance with absolute values may lead to misinterpretation of CBC data. Current Interpretive Data was last revised on 2018. Basophil pct 0.1 % [facility] Comment: Interpretive Data Percent cell count reference ranges are not reported, since discordance with absolute values may lead to misinterpretation of CBC data. Current Interpretive Data was last revised on 2018. Blood 09/29/2024 4:17 PM SALES DEVELOPMENT MANAGER 09/29/2024 4:57 PM SALES DEVELOPMENT MANAGER us Kathia Ruiz MD LAB BLOOD ORDERABLES Jessica cruz Result [facility] Department [place] [address] * (ABNORMAL) CBC with auto differential (09/29/2024 4:17 PM SALES DEVELOPMENT MANAGER) WBC 9.5 3.8 - 9.9 K/cumm Hgb 9.5(L) 13.0 - 17.5 g/dL [facility] Hct 31.3(L) 38.9 - 50.3 % [facility] Plt 357 150 - 400 K/cumm [facility] MPV 10.7 9.1 - 12.3 fL [facility] RBC 4.30 4.30 - 5.80 M/cumm [facility] MCV 72.8(L) 81.3 - 96.4 fL [facility] MCH 22.1(L) 27.1 - 33.3 pg [facility] MCHC 30.4(L) 32.3 - 35.7 g/dL [facility] RDW CV 17.3(H) 11.1 - 14.9 % [facility] RDW SD 45.9 35.7 - 48.1 fL [facility] NRBC abs 0.00 0.00 - 0.01 K/cumm [facility] Blood 09/29/2024 4:17 PM SALES DEVELOPMENT MANAGER 09/29/2024 4:57 PM SALES DEVELOPMENT MANAGER Kathia Ruiz MD LAB BLOOD ORDERABLES Jessica l Result Performing Organization Address [facility] de Phone Number [facility] [place] [address] * (ABNORMAL) aPTT (09/29/2024 4:17 PM SALES DEVELOPMENT MANAGER) aPTT 43(H) 28 - 38 sec Comment: Interpretive Data Heparin therapeutic range: 66.0 - 100.0 seconds. Range based on correlation with therapeutic heparin activity range of 0.3 - 0.7 Units/mL. Current interpretive data was last revised on 2023. Blood 09/29/2024 4:17 PM SALES DEVELOPMENT MANAGER 09/29/2024 4:53 PM SALES DEVELOPMENT MANAGER Kathia Ruiz MD LAB BLOOD ORDERABLES Jessica l Result Performing Organization Address [facility] de Phone Number [facility] [place] [address] * (ABNORMAL) Protime-INR (09/29/2024 4:17 PM SALES DEVELOPMENT MANAGER) PT 16.1(H) 9.7 - 13.0 sec INR 1.48(H) 0.90 - 1.20 [facility] Comment: Interpretive data Oral anticoagulant therapeutic ranges: Venous thromboembolism prophylaxis or treatment: 2.0-3.0 CARDIOLOGY Standard range: 2.0-3.0 High-intensity range: 2.5-3.5 Refer to indication-specific guidelines for appropriate target ranges for prosthetic heart valve replacement. Current interpretive data was last revised on 2019. Blood 09/29/2024 4:17 PM SALES DEVELOPMENT MANAGER 09/29/2024 4:53 PM SALES DEVELOPMENT MANAGER Kathia Ruiz MD LAB BLOOD ORDERABLES Jessica l Result Performing Organization Address [facility] de Phone Number [facility] [place] [address] * (ABNORMAL) Reticulocyte Count (09/29/2024 4:17 PM SALES DEVELOPMENT MANAGER) Retics, absolute 0.055 0.020 - 0.087 M/cumm Retics 1.6 0.4 - 2.9 % [facility] Reticulocyte Hgb 20.9(L) 30.5 - 38.0 pg [facility] Blood 09/29/2024 4:17 PM SALES DEVELOPMENT MANAGER 09/29/2024 4:57 PM SALES DEVELOPMENT MANAGER Kathia Ruiz MD LAB BLOOD ORDERABLES Jessica l Result Performing Organization Address [facility] de Phone Number [facility] Department [place] [address] * (ABNORMAL) Folate (09/29/2024 4:17 PM SALES DEVELOPMENT MANAGER) Folic acid 3.9(L) >=5.0 ng/mL Blood 09/29/2024 4:17 PM SALES DEVELOPMENT MANAGER 09/29/2024 4:57 PM SALES DEVELOPMENT MANAGER Kathia Ruiz MD LAB BLOOD ORDERABLES Jessica l Result Performing Organization Address [facility]/ZIP Co de Phone Number [facility] [place] [address] * (ABNORMAL) Ferritin (09/29/2024 4:17 PM SALES DEVELOPMENT MANAGER) [facility] Ferritin 649(H) 30 - 400 ng/mL Blood 09/29/2024 4:17 PM SALES DEVELOPMENT MANAGER 09/29/2024 4:57 PM SALES DEVELOPMENT MANAGER Kathia Ruiz MD LAB BLOOD ORDERABLES Jessica l Result Performing Organization Address [facility] Co de Phone Number [facility] [place] [address] * Vitamin B12 (09/29/2024 4:17 PM SALES DEVELOPMENT MANAGER) [facility] Vitamin B12 656 230 - 1,250 pg/mL Blood 09/29/2024 4:17 PM SALES DEVELOPMENT MANAGER 09/29/2024 4:57 PM SALES DEVELOPMENT MANAGER Kathia Ruiz MD LAB BLOOD ORDERABLES Jessica l Result Performing Organization Address [facility] Co de Phone Number [facility] Department [place] [address] * (ABNORMAL) Basic metabolic panel (09/29/2024 4:17 PM SALES DEVELOPMENT MANAGER) [facility] Sodium 138 135 - 145 mmol/L Potassium, pl 3.5 3.3 - 4.9 mmol/L [facility] Chloride 105 97 - 110 mmol/L [facility] CO2 20(L) 22 - 32 mmol/L [facility] Anion gap 13 2 - 15 mmol/L [facility] BUN 10 6 - 25 mg/dL [facility] Creatinine 0.67(L) 0.80 - 1.30 mg/dL [facility] Glucose 104 70 - 199 mg/dL [facility] Comment: Interpretive Data Fasting glucose >/= 126 [...] 2022. Calcium 8.1(L) 8.5 - 10.3 mg/dL [facility] Blood 09/29/2024 4:17 PM SALES DEVELOPMENT MANAGER 09/29/2024 4:57 PM SALES DEVELOPMENT MANAGER Kathia Ruiz MD LAB BLOOD ORDERABLES Jessica l Result Performing Organization Address City/[facility]/ZIP Co de Phone Number [facility] One [facility] Department [place] [address] * Tissue aerobic and anaerobic culture and gram stain Tissue Sacral (09/29/2024 12:37 PM SALES DEVELOPMENT MANAGER) Direct Specimen Exam Stain: No polymorphonuclear leukocytes seen. No organisms seen. Report Final Report: No growth [facility] Tissue (Sacral) 09/29/2024 1 2:37 PM SALES DEVELOPMENT MANAGER 09/29/2024 2:14 PM SALES DEVELOPMENT MANAGER Narrative [facility] - 10/02/2024 10:33 AM SALES DEVELOPMENT MANAGER Left sacrum Specimen received in anaerobic transport media. Testing performed by [facility] ([phone]) Specimens submitted from normally sterile body sites [...] interpretive data was last revised on 2020. us Teri Hendrix DO LAB MICROBIOLOGY - GENERAL ORDERABLES Final Result [facility] Department [place] [address] * Mycology (fungal) culture Tissue Sacral (09/29/2024 12:37 PM SALES DEVELOPMENT MANAGER) Report Final Report: No growth of fungus Tissue (Sacral) 09/29/2024 1 2:37 PM SALES DEVELOPMENT MANAGER 09/29/2024 2:15 PM SALES DEVELOPMENT MANAGER Narrative [facility] - 10/27/2024 7:59 AM SALES DEVELOPMENT MANAGER Left sacrum Specimen received in anaerobic transport media. Testing performed by [facility] ([phone]). Teri Hendrix DO LAB MICROBIOLOGY - GENERAL ORDERABLES Final Result [facility] Tristian [facility] Department [place] [address] * (ABNORMAL) Tissue aerobic and anaerobic culture and gram stain Tissue Sacral (09/29/2024 12:26 PM SALES DEVELOPMENT MANAGER) Direct Specimen Exam Stain: No polymorphonuclear leukocytes seen. No organisms seen. Report Final Report: Few Mixed aerobic and anaerobic microorganisms Includes the following: Rare Amanda albicans (.) [facility] Organism MIXED AEROBIC AND ANAEROBIC MICROORGANISMS [facility] Organism AMANDA ALBICANS [facility] Tissue (Sacral) 09/29/2024 1 2:26 PM SALES DEVELOPMENT MANAGER 09/29/2024 2:01 PM SALES DEVELOPMENT MANAGER Narrative [facility] - 10/02/2024 3:00 PM SALES DEVELOPMENT MANAGER Right sacrum Specimen received in anaerobic transport media. Testing performed by [facility] ([phone]) Specimens submitted from normally sterile body sites [...] data was last revised on 2020. [facility] LAB MICROBIOLOGY - GENERAL ORDERABLES Final Result Performing Organization Address [facility] Co de Phone Number JUAN [facility] [place] [address] * (ABNORMAL) Mycology (fungal) culture Tissue Sacral (09/29/2024 12:26 PM SALES DEVELOPMENT MANAGER) Report Final Report: Amanda albicans (.) Organism AMANDA ALBICANS [facility] Tissue (Sacral) 09/29/2024 1 2:26 PM SALES DEVELOPMENT MANAGER 09/29/2024 2:01 PM SALES DEVELOPMENT MANAGER Narrative [facility] - 10/27/2024 7:56 AM SALES DEVELOPMENT MANAGER Right sacrum Specimen received in anaerobic transport media. Testing performed by [facility] ([phone]). [facility] LAB MICROBIOLOGY - GENERAL ORDERABLES Final Result Performing Organization Address [facility] de Phone Number [facility] [place] [address] * UT AN ELECTIVE ENDOTRACHEAL AIRWAY, UT AN PROCEDURE PLACEHOLDER (09/29/2024 11:36 AM SALES DEVELOPMENT MANAGER) Narrative Pallavi Dennis CRNA - 09/29/2024 11:36 AM SALES DEVELOPMENT MANAGER Pallavi Dennis CRNA ? 09/29/2024 11:38 AM Airway Patient location: OR Urgency: elective Indications for airway management: anesthesia and airway protection Difficult airway: no Staff: Supervising provider: Natasha Murphy MD Placed by: INSTRUMENT MAN: Pallavi Dennis CRNA Emergent airway documentation: Risks [...] prone view tape Number of attempts: 1 us Natasha Murphy MD ANESTHESIA ORD ERABLES Final Result * eGFR (09/29/2024 5:48 AM SALES DEVELOPMENT MANAGER) Pathologist [facility] eGFR >90 >=60 mL/min/1. 73 m2 Comment: [...] last reviewed 2021. Blood 09/29/2024 5:48 AM SALES DEVELOPMENT MANAGER 09/29/2024 6:22 AM SALES DEVELOPMENT MANAGER us Kathia Ruiz MD LAB BLOOD ORDERABLES Jessica cruz Result [facility] One [facility] Department [place] [address] * (ABNORMAL) Differential, auto (09/29/2024 5:48 AM SALES DEVELOPMENT MANAGER) Neutrophil abs 9.0(H) 1.5 - 6.5 K/cumm Imm gran abs 0.1 0.0 - 0.1 K/cumm [facility] Lymphocyte abs 1.1 0.8 - 3.3 K/cumm [facility] Monocyte abs 0.6 0.2 - 0.8 K/cumm [facility] Eosinophil abs 0.4 0.0 - 0.5 K/cumm [facility] Basophil abs 0.0 0.0 - 0.1 K/cumm [facility] Neutrophil pct 80.1 % [facility] Comment: Interpretive Data Percent cell count reference ranges are not reported, since discordance with absolute values may lead to misinterpretation of CBC data. Current Interpretive Data was last revised on 2018. Imm gran pct 1.1 % [facility] Comment: Interpretive Data Percent cell count reference ranges are not reported, since discordance with absolute values may lead to misinterpretation of CBC data. Current Interpretive Data was last revised on 2018. Lymphocyte pct 10.1 % [facility] Comment: Interpretive Data Percent cell count reference ranges are not reported, since discordance with absolute values may lead to misinterpretation of CBC data. Current Interpretive Data was last revised on 2018. Monocyte pct 5.1 % [facility] Comment: Interpretive Data Percent cell count reference ranges are not reported, since discordance with absolute values may lead to misinterpretation of CBC data. Current Interpretive Data was last revised on 2018. Eosinophil pct 3.4 % [facility] Comment: Interpretive Data Percent cell count reference ranges are not reported, since discordance with absolute values may lead to misinterpretation of CBC data. Current Interpretive Data was last revised on 2018. Basophil pct 0.2 % [facility] Comment: Interpretive Data Percent cell count reference ranges are not reported, since discordance with absolute values may lead to misinterpretation of CBC data. Current Interpretive Data was last revised on 2018. Blood 09/29/2024 5:48 AM SALES DEVELOPMENT MANAGER 09/29/2024 6:23 AM SALES DEVELOPMENT MANAGER Kathia Ruiz MD LAB BLOOD ORDERABLES Jessica l Result Performing Organization Address [facility] Co de Phone Number [facility] [place] [address] * (ABNORMAL) CBC with auto differential (09/29/2024 5:48 AM SALES DEVELOPMENT MANAGER) WBC 11.2(H) 3.8 - 9.9 K/cumm Hgb 8.2(L) 13.0 - 17.5 g/dL [facility] Hct 27.1(L) 38.9 - 50.3 % [facility] Plt 391 150 - 400 K/cumm [facility] MPV 10.8 9.1 - 12.3 fL [facility] RBC 3.70(L) 4.30 - 5.80 M/cumm [facility] MCV 73.2(L) 81.3 - 96.4 fL [facility] MCH 22.2(L) 27.1 - 33.3 pg [facility] MCHC 30.3(L) 32.3 - 35.7 g/dL [facility] RDW CV 17.2(H) 11.1 - 14.9 % [facility] RDW SD 45.8 35.7 - 48.1 fL [facility] NRBC abs 0.00 0.00 - 0.01 K/cumm [facility] Blood 09/29/2024 5:48 AM SALES DEVELOPMENT MANAGER 09/29/2024 6:23 AM SALES DEVELOPMENT MANAGER Kathia Ruiz MD LAB BLOOD ORDERABLES Jessica l Result Performing Organization Address [facility]/ZIP Co de Phone Number [facility] [place] [address] * aPTT (09/29/2024 5:48 AM SALES DEVELOPMENT MANAGER) aPTT 33 28 - 38 sec Comment: Interpretive Data Heparin therapeutic range: 66.0 - 100.0 seconds. Range based on correlation with therapeutic heparin activity range of 0.3 - 0.7 Units/mL. Current interpretive data was last revised on 2023. Blood 09/29/2024 5:48 AM SALES DEVELOPMENT MANAGER 09/29/2024 6:09 AM SALES DEVELOPMENT MANAGER Kathia Ruiz MD LAB BLOOD ORDERABLES Jessica l Result Performing Organization Address City/[facility]/ZIP Co de Phone Number [facility] [place] [place] [address] * (ABNORMAL) Protime-INR (09/29/2024 5:48 AM SALES DEVELOPMENT MANAGER) Pathologist [facility] PT 16.3(H) 9.7 - 13.0 sec INR 1.50(H) 0.90 - 1.20 [facility] Comment: Interpretive data Oral anticoagulant therapeutic ranges: Venous thromboembolism prophylaxis or treatment: 2.0-3.0 CARDIOLOGY Standard range: 2.0-3.0 High-intensity range: 2.5-3.5 Refer to indication-specific guidelines for appropriate target ranges for prosthetic heart valve replacement. Current interpretive data was last revised on 2019. Blood 09/29/2024 5:48 AM SALES DEVELOPMENT MANAGER 09/29/2024 6:09 AM SALES DEVELOPMENT MANAGER Kathia Ruiz MD LAB BLOOD ORDERABLES Jessica l Result [facility] [place] [address] * (ABNORMAL) Basic metabolic panel (09/29/2024 5:48 AM SALES DEVELOPMENT MANAGER) Sodium 136 135 - 145 mmol/L Potassium, pl 3.5 3.3 - 4.9 mmol/L [facility] Chloride 102 97 - 110 mmol/L [facility] CO2 23 22 - 32 mmol/L [facility] Anion gap 11 2 - 15 mmol/L [facility] BUN 9 6 - 25 mg/dL [facility] Creatinine 0.71(L) 0.80 - 1.30 mg/dL [facility] Glucose 90 70 - 199 mg/dL [facility] Comment: Interpretive Data Fasting glucose >/= 126 [...] 2022. Calcium 8.2(L) 8.5 - 10.3 mg/dL [facility] Blood 09/29/2024 5:48 AM SALES DEVELOPMENT MANAGER 09/29/2024 6:22 AM SALES DEVELOPMENT MANAGER us Kathia Ruiz MD LAB BLOOD ORDERABLES Jessica cruz Result [facility] One [facility] Department [place] [address] * (ABNORMAL) CBC without differential (09/28/2024 9:26 PM SALES DEVELOPMENT MANAGER) Pathologist [facility] WBC 14.9(H) 3.8 - 9.9 K/cumm Hgb 8.3(L) 13.0 - 17.5 g/dL [facility] Hct 27.5(L) 38.9 - 50.3 % [facility] Plt 388 150 - 400 K/cumm [facility] MPV 11.1 9.1 - 12.3 fL [facility] RBC 3.75(L) 4.30 - 5.80 M/cumm [facility] MCV 73.3(L) 81.3 - 96.4 fL [facility] MCH 22.1(L) 27.1 - 33.3 pg [facility] MCHC 30.2(L) 32.3 - 35.7 g/dL [facility] RDW CV 17.2(H) 11.1 - 14.9 % [facility] RDW SD 45.5 35.7 - 48.1 fL [facility] NRBC abs 0.00 0.00 - 0.01 K/cumm [facility] Blood 09/28/2024 9:26 PM SALES DEVELOPMENT MANAGER 09/28/2024 10:09 PM SALES DEVELOPMENT MANAGER Kathia Ruiz MD LAB BLOOD ORDERABLES Jessica l Result Performing Organization Address City/[facility] Co de Phone Number [facility] [place] [address] * Potassium, whole blood (09/28/2024 1:54 PM SALES DEVELOPMENT MANAGER) [facility] Potassium, bld 3.4 3.3 - 4.9 mmol/L Blood 09/28/2024 1:54 PM SALES DEVELOPMENT MANAGER 09/28/2024 2:12 PM SALES DEVELOPMENT MANAGER Kathia Ruiz MD LAB BLOOD ORDERABLES Jessica l Result Performing Organization Address [facility] de Phone Number [facility] Department [place] [address] * eGFR (09/28/2024 1:54 PM SALES DEVELOPMENT MANAGER) [facility] eGFR >90 >=60 mL/min/1. 73 m2 Comment: [...] last reviewed 2021. Blood 09/28/2024 1:54 PM SALES DEVELOPMENT MANAGER 09/28/2024 2:19 PM SALES DEVELOPMENT MANAGER us Kathia Ruiz MD LAB BLOOD ORDERABLES Jessica cruz Result [facility] One [facility] Department [place] [address] * (ABNORMAL) Differential, auto (09/28/2024 1:54 PM SALES DEVELOPMENT MANAGER) Neutrophil abs 13.6(H) 1.5 - 6.5 K/cumm Imm gran abs 0.2(H) 0.0 - 0.1 K/cumm [facility] Lymphocyte abs 0.8 0.8 - 3.3 K/cumm [facility] Monocyte abs 0.7 0.2 - 0.8 K/cumm [facility] Eosinophil abs 0.3 0.0 - 0.5 K/cumm [facility] Basophil abs 0.0 0.0 - 0.1 K/cumm [facility] Neutrophil pct 87.8 % [facility] Comment: Interpretive Data Percent cell count reference ranges are not reported, since discordance with absolute values may lead to misinterpretation of CBC data. Current Interpretive Data was last revised on 2018. Imm gran pct 1.0 % [facility] Comment: Interpretive Data Percent cell count reference ranges are not reported, since discordance with absolute values may lead to misinterpretation of CBC data. Current Interpretive Data was last revised on 2018. Lymphocyte pct 5.1 % [facility] Comment: Interpretive Data Percent cell count reference ranges are not reported, since discordance with absolute values may lead to misinterpretation of CBC data. Current Interpretive Data was last revised on 2018. Monocyte pct 4.3 % [facility] Comment: Interpretive Data Percent cell count reference ranges are not reported, since discordance with absolute values may lead to misinterpretation of CBC data. Current Interpretive Data was last revised on 2018. Eosinophil pct 1.6 % [facility] Comment: Interpretive Data Percent cell count reference ranges are not reported, since discordance with absolute values may lead to misinterpretation of CBC data. Current Interpretive Data was last revised on 2018. Basophil pct 0.2 % [facility] Comment: Interpretive Data Percent cell count reference ranges are not reported, since discordance with absolute values may lead to misinterpretation of CBC data. Current Interpretive Data was last revised on 2018. Blood 09/28/2024 1:54 PM SALES DEVELOPMENT MANAGER 09/28/2024 2:19 PM SALES DEVELOPMENT MANAGER Kathia Ruiz MD LAB BLOOD ORDERABLES Jessica l Result [facility] One [facility] Department [place] [address] * (ABNORMAL) Iron profile w/ IBC (09/28/2024 1:54 PM SALES DEVELOPMENT MANAGER) Iron 10(L) 50 - 150 mcg/dL TIBC 106(L) 250 - 400 mcg/dL [facility] Transferrin saturation 9(L) 20 - 50 % [facility] Blood 09/28/2024 1:54 PM SALES DEVELOPMENT MANAGER 09/28/2024 2:19 PM SALES DEVELOPMENT MANAGER Kathia Ruiz MD LAB BLOOD ORDERABLES Jessica l Result Performing Organization Address [facility]/ZIP Co de Phone Number [facility] Department [place] [address] * (ABNORMAL) CBC with auto differential (09/28/2024 1:54 PM SALES DEVELOPMENT MANAGER) [facility] WBC 15.4(H) 3.8 - 9.9 K/cumm Hgb 8.1(L) 13.0 - 17.5 g/dL [facility] Hct 26.5(L) 38.9 - 50.3 % [facility] Plt 377 150 - 400 K/cumm [facility] MPV 10.7 9.1 - 12.3 fL [facility] RBC 3.57(L) 4.30 - 5.80 M/cumm [facility] MCV 74.2(L) 81.3 - 96.4 fL [facility] MCH 22.7(L) 27.1 - 33.3 pg [facility] MCHC 30.6(L) 32.3 - 35.7 g/dL [facility] RDW CV 17.0(H) 11.1 - 14.9 % [facility] RDW SD 46.5 35.7 - 48.1 fL [facility] NRBC abs 0.00 0.00 - 0.01 K/cumm [facility] Blood 09/28/2024 1:54 PM SALES DEVELOPMENT MANAGER 09/28/2024 2:19 PM SALES DEVELOPMENT MANAGER us Kathia Riuz MD LAB BLOOD ORDERABLES Jessica l Result Performing Organization Address [facility]/ZIP Co de Phone Number [facility] Department [place] [address] * aPTT (09/28/2024 1:54 PM SALES DEVELOPMENT MANAGER) [facility] aPTT 33 28 - 38 sec Comment: Interpretive Data Heparin therapeutic range: 66.0 - 100.0 seconds. Range based on correlation with therapeutic heparin activity range of 0.3 - 0.7 Units/mL. Current interpretive data was last revised on 2023. Blood 09/28/2024 1:54 PM SALES DEVELOPMENT MANAGER 09/28/2024 2:15 PM SALES DEVELOPMENT MANAGER Kathia Ruiz MD LAB BLOOD ORDERABLES Jessica l Result Performing Organization Address [facility] Co de Phone Number [facility] One [facility] [place] [address] * (ABNORMAL) Protime-INR (09/28/2024 1:54 PM SALES DEVELOPMENT MANAGER) PT 16.8(H) 9.7 - 13.0 sec INR 1.54(H) 0.90 - 1.20 [facility] Comment: Interpretive data Oral anticoagulant therapeutic ranges: Venous thromboembolism prophylaxis or treatment: 2.0-3.0 CARDIOLOGY Standard range: 2.0-3.0 High-intensity range: 2.5-3.5 Refer to indication-specific guidelines for appropriate target ranges for prosthetic heart valve replacement. Current interpretive data was last revised on 2019. Blood 09/28/2024 1:54 PM SALES DEVELOPMENT MANAGER 09/28/2024 2:15 PM SALES DEVELOPMENT MANAGER Kathia Ruiz MD LAB BLOOD ORDERABLES Jessica l Result Performing Organization Address [facility] Co de Phone Number [facility] One [facility] [place] [address] * Type and screen (09/28/2024 1:54 PM SALES DEVELOPMENT MANAGER) ABO Rh A Positive Bp, indirect Negative [facility] Blood 09/28/2024 1:54 PM SALES DEVELOPMENT MANAGER 09/28/2024 2:21 PM SALES DEVELOPMENT MANAGER Narrative [facility] - 09/28/2024 3:24 PM SALES DEVELOPMENT MANAGER Has the patient had Daratumumab or Isatuximab in the past 6 months?->Unknown Kathia Ruiz MD LAB BLOOD BANK TEST ORDER WHITNEY Final Result Performing Organization Address City/[facility] Co de Phone Number [facility] [place] [address] * Osmolality, blood (09/28/2024 1:54 PM SALES DEVELOPMENT MANAGER) [facility] Osmo 276 275 - 300 mOsm/kg Blood 09/28/2024 1:54 PM SALES DEVELOPMENT MANAGER 09/28/2024 2:19 PM SALES DEVELOPMENT MANAGER Kathia Ruiz MD LAB BLOOD ORDERABLES Jessica l Result Performing Organization Address [facility] [place] [address] * (ABNORMAL) Hemoglobin A1c (09/28/2024 1:54 PM SALES DEVELOPMENT MANAGER) [facility] Hgb A1C 5.8(H) 4.0 - 5.6 % Estimated Average Glucose 120 mg/dL [facility] Comment: The ADA recommends reporting an estimated Average Glucose (eAG) with all Hemoglobin A1c results using the equation derived from a study of 507 normal and diabetic adults. ??Minority populations were underrepresented and children were not included. ?? (Diabetes Care 2020; 43(S1): S66-S76). ??The eAG is not equivalent to a fasting glucose. Blood 09/28/2024 1:54 PM SALES DEVELOPMENT MANAGER 09/28/2024 2:19 PM SALES DEVELOPMENT MANAGER Kathia Ruiz MD LAB BLOOD ORDERABLES Jessica l Result Performing Organization Address [facility] Co de Phone Number [facility] [place] [address] * (ABNORMAL) Comprehensive metabolic panel (09/28/2024 1:54 PM SALES DEVELOPMENT MANAGER) [facility] Sodium 135 135 - 145 mmol/L Potassium, pl 3.4 3.3 - 4.9 mmol/L [facility] Chloride 101 97 - 110 mmol/L [facility] CO2 22 22 - 32 mmol/L [facility] Anion gap 12 2 - 15 mmol/L [facility] BUN 7 6 - 25 mg/dL [facility] Creatinine 0.74(L) 0.80 - 1.30 mg/dL [facility] Glucose 86 70 - 199 mg/dL [facility] Comment: Interpretive Data Fasting glucose >/= 126 [...] 2022. Calcium 8.2(L) 8.5 - 10.3 mg/dL [facility] Bilirubin, total 0.4 0.1 - 1.2 mg/dL [facility] Protein, pl 7.1 6.5 - 8.5 g/dL [facility] Albumin 2.7(L) 3.5 - 5.0 g/dL [facility] Alk phos 104 40 - 130 Units/L [facility] ALT 36 7 - 55 Units/L [facility] AST 19 10 - 50 Units/L [facility] Blood 09/28/2024 1:54 PM SALES DEVELOPMENT MANAGER 09/28/2024 2:19 PM SALES DEVELOPMENT MANAGER Kathia Ruiz MD LAB BLOOD ORDERABLES Jessica cruz Result [facility] One [facility] [place] [address] * Urine culture Urine, in and out catheter (09/28/2024 1:35 PM SALES DEVELOPMENT MANAGER) Report Final Report: Less than 10,000 colonies/mL (clinically insignificant growth based on current clinical standards) Organism (CLINICALLY INSIGNIFICANT GROWTH [facility] Urine, in and out catheter 09/28/2024 1:35 PM SALES DEVELOPMENT MANAGER 09/28/2024 4:19 PM SALES DEVELOPMENT MANAGER Narrative [facility] - 09/29/2024 5:12 PM SALES DEVELOPMENT MANAGER Indications for Culture:->Recent positive UA Specimen received in a sterile container. Testing performed by [facility] ([phone]) Kathia Ruiz MD LAB MICROBIOLOGY - GENERA L ORDERABLES Final Result Performing Organization Address [facility] Co de Phone Number [facility] [place] [address] * Urea nitrogen, urine, random (09/28/2024 1:07 PM SALES DEVELOPMENT MANAGER) Urea nitrogen, ur 665 mg/dL Comment: Interpretive Data No reference range established. Current interpretive data was last revised 2019. Urine 09/28/2024 1:07 PM SALES DEVELOPMENT MANAGER 09/28/2024 4:14 PM SALES DEVELOPMENT MANAGER Kathia Ruiz MD LAB URINE ORDERABLES Jessica l Result Performing Organization Address [facility] [place] [address] * Sodium, urine, random (09/28/2024 1:07 PM SALES DEVELOPMENT MANAGER) Sodium, ur 21 mmol/L Comment: Interpretive Data No reference range established. Current interpretive data was last revised 2019. Urine 09/28/2024 1:07 PM SALES DEVELOPMENT MANAGER 09/28/2024 4:14 PM SALES DEVELOPMENT MANAGER Kathia Ruiz MD LAB URINE ORDERABLES Jessica l Result Performing Organization Address [facility] Co de Phone Number [facility] [place] [address] * Osmolality, urine (09/28/2024 1:07 PM SALES DEVELOPMENT MANAGER) Osmo, ur 631 mOsm/kg Urine 09/28/2024 1:07 PM SALES DEVELOPMENT MANAGER 09/28/2024 4:12 PM SALES DEVELOPMENT MANAGER Kathia Ruiz MD LAB URINE ORDERABLES Jessica l Result Performing Organization Address [facility] Co de Phone Number [facility] Department of Laboratories [place] [address] * Creatinine, urine, random (09/28/2024 1:07 PM SALES DEVELOPMENT MANAGER) Pathologist [facility] Creatinine Ur 185.5 mg/dL Comment: Interpretive Data No reference range established. Current interpretive data was last revised 2019. Urine 09/28/2024 1:07 PM SALES DEVELOPMENT MANAGER 09/28/2024 4:14 PM SALES DEVELOPMENT MANAGER Kathia Ruiz MD LAB URINE ORDERABLES Jessica l Result Performing Organization Address [facility] de Phone Number [facility] [place] [address] * ECG 12 lead (09/28/2024 11:11 AM SALES DEVELOPMENT MANAGER) [facility] Ventricular Rate EKG/Min 91 BPM [facility] Atrial Rate 91 BPM [facility] UT-Interval (MSEC) 168 ms [facility] QRS-Interval (MSEC) 96 ms [facility] QT-Interval (MSEC) 348 ms [facility] QTc 428 ms [facility] P [place] 45 degrees [facility] R [place] 35 degrees [facility] T [place] -6 degrees [facility] Diagnosis Normal sinus rhythm Nonspecific T wave abnormality Abnormal ECG Confirmed by Waldo Meredith MD ([id number]) on 10/03/2024 1:36:26 AM [facility] 09/28/2024 11:1 1 AM SALES DEVELOPMENT MANAGER 10/03/2024 1:36 AM SALES DEVELOPMENT MANAGER Kathia Ruiz MD ECG ORDERABLES Final Res ult [facility] * (ABNORMAL) Urinalysis reflex to microscopic and culture Urine (09/28/2024 7:53 AM SALES DEVELOPMENT MANAGER) Color, ur Yellow Yellow Clarity, ur Cloudy(A) Clear [facility] Specific gravity, ur >1.042(H) 1.003 - 1.030 [facility] pH, urine 6.5 [facility] Comment: Interpretive Data ? Urine pH is affected by diet, medications, systemic acid-base disturbances, and renal tubular function. ??pH may affect urinary stone formation. ??For example, urine pH below 6.0 may help reduce the tendency for calcium phosphate stones and pH greater than 6.0 may reduce the tendency for uric acid stone formation. Source: [facility] Current Interpretive Data was last revised on 2017 Protein, ur ql 2+(A) Negative [facility] Glucose, ur ql Negative Negative [facility] Ketones, ur 2+(A) Negative [facility] Bilirubin, ur Negative Negative [facility] Blood, ur Negative Negative [facility] Urobilinogen, ur <2.0 <2.0 mg/dL [facility] Nitrite, ur Positive(A) Negative [facility] Leukocyte esterase, ur 3+(A) Negative [facility] UA reflex comment Reflex to microscopic UA will be performed. [facility] Urine 09/28/2024 7:53 AM SALES DEVELOPMENT MANAGER 09/28/2024 8:03 AM SALES DEVELOPMENT MANAGER us Adelina Galvan MD LAB MICROBIOLOGY - GENE RAL ORDERABLES Final Result [facility] Department [place] [address] * (ABNORMAL) Urinalysis, microscopic only (09/28/2024 7:53 AM SALES DEVELOPMENT MANAGER) WBC, ur >50(A) 0 - 5 /HPF RBC, ur >50(A) 0 - 2 /HPF [facility] Epithelial cells, squamous, ur 6-10(A) 0 - 5 /HPF [facility] Comment:Suggestive of contam ination. Consider recollection by clean catch. Bacteria, ur 2+(A) [facility] Mucous, ur Present(A) [facility] Culture Reflex Comment Reflex to urine culture will be performed. [facility] Urine 09/28/2024 7:53 AM SALES DEVELOPMENT MANAGER 09/28/2024 8:03 AM SALES DEVELOPMENT MANAGER us Adelina Galvan MD LAB URINE ORDERABLES Fi nal Result Performing Organization Address [facility] Co de Phone Number [facility] Department [place] [address] * (ABNORMAL) Urine culture Urine (09/28/2024 7:53 AM SALES DEVELOPMENT MANAGER) Report Final Report: Growth indicates contamination with mixed bacterial meir. Please submit a new specimen with special attention given to the collection process and to prompt transport to the laboratory. (.) Organism GROWTH INDICATES CONTAMINATION WITH MIXED MEIR. [facility] Urine 09/28/2024 7:53 AM SALES DEVELOPMENT MANAGER 09/28/2024 2:59 PM SALES DEVELOPMENT MANAGER Narrative [facility] - 09/29/2024 10:59 PM SALES DEVELOPMENT MANAGER Testing performed by [facility] ([phone]) us Kathia Ruiz MD LAB MICROBIOLOGY - GENERA L ORDERABLES Final Result Performing Organization Address [facility] Co de Phone Number [facility] Department [place] [address] * Influenza A/B, RSV, and COVID-19 PCR Nasopharyngeal (09/28/2024 1:08 AM SALES DEVELOPMENT MANAGER) COVID-19 RNA Negative Negative [facility] Influenza A RNA Negative Negative [facility] Influenza B RNA Negative Negative [facility] RSV RNA Negative Negative [facility] Comment: Interpretive data: Testing performed by [facility] ([phone]). This test is performed using the Cepheid Xpert Xpress CoV-2/Flu/RSV plus assay. This is a multiplex, real-time reverse transcriptase PCR assay intended for the qualitative detection of nucleic acid from SARS-CoV-2, influenza A, influenza B, and respiratory syncytial virus. This assay has been cleared by the [place] Food and Drug administration. The performance characteristics have been verified by the [facility]. ??Results must be considered in the clinical context, and a negative result does not rule out infection. Interpretive Data last revised 2023 Nasopharyngeal 09/28/2024 1: 08 AM SALES DEVELOPMENT MANAGER 09/28/2024 1:18 AM SALES DEVELOPMENT MANAGER Narrative [facility] - 09/28/2024 2:01 AM SALES DEVELOPMENT MANAGER Is the Patient experiencing symptoms consistent with COVID?->Yes us Chula Tate MD LAB MICROBIOLOGY - GENERAL ORDERABLES Final Result [facility] Department [place] [address] [facility] * CT Abdomen Pelvis W Contrast (09/27/2024 11:35 PM SALES DEVELOPMENT MANAGER) Anatomical Region Laterality Modality Body N/A Computed Tomogra phy 09/28/2024 12:1 8 AM SALES DEVELOPMENT MANAGER Impressions 09/28/2024 8:01 AM SALES DEVELOPMENT MANAGER 1. ??Cutaneous tract extending from bilateral gluteal [...] Cipriano Vergara M.D. Narrative 09/28/2024 8:01 AM SALES DEVELOPMENT MANAGER EXAMINATION: ??Computed tomography of the abdomen and [...] Sepsis Lactate w/ Reflex (09/27/2024 10:32 PM SALES DEVELOPMENT MANAGER) Sepsis Lactate 1.6 0.7 - 2.0 mmol/L Blood 09/27/2024 10:3 2 PM SALES DEVELOPMENT MANAGER 09/27/2024 10:37 PM SALES DEVELOPMENT MANAGER us Adelina Galvan MD LAB BLOOD ORDERABLES Fi nal Result [facility] Department [place] [address] * Blood culture Blood Peripheral (09/27/2024 10:32 PM SALES DEVELOPMENT MANAGER) Pathologist [facility] Report Final Report: No growth Blood (Peripheral) 09/27/2024 10:32 PM SALES DEVELOPMENT MANAGER 09/27/2024 10:39 PM SALES DEVELOPMENT MANAGER Narrative [facility] - 10/02/2024 7:00 AM SALES DEVELOPMENT MANAGER From a different site than #1. Draw [...] organism identification may be performed using the GoodDataigene Gram-Positive Blood Culture Assay. This assay detects microbial DNA in positive blood culture broth via hybridization of target DNA to capture oligonucleotides on a microarray. This assay has been cleared by the [place] Food and Drug Administration and its performance characteristics have been verified by the [facility]. 5. ?For questions about this culture, contact the Microbiology Laboratory at [phone]. Interpretive data was last revised on 2020. Adelina Galvan MD LAB MICROBIOLOGY - GENE RAL ORDERABLES Final Result [facility] Department [place] [address] * XR Chest 1 Vw Portable (09/27/2024 10:21 PM SALES DEVELOPMENT MANAGER) Anatomical Region Laterality Modality Body, Chest N/A Computed Radiogr aphy 09/28/2024 12:4 2 AM SALES DEVELOPMENT MANAGER Impressions 09/28/2024 8:01 AM SALES DEVELOPMENT MANAGER Comparison is made to prior chest radiograph [...] Cipriano Vergara M.D. Narrative 09/28/2024 8:01 AM SALES DEVELOPMENT MANAGER EXAMINATION: 1 view chest radiograph Procedure Note [...] it. Electronically signed by: Cipriano Vergara M.D. Adelina Galvan MD IMG XR PROCEDURES Final Result * (ABNORMAL) Sepsis Lactate w/ Reflex (09/27/2024 7:59 PM SALES DEVELOPMENT MANAGER) [facility] Sepsis Lactate 3.6(H) 0.7 - 2.0 mmol/L Blood 09/27/2024 7:59 PM SALES DEVELOPMENT MANAGER 09/27/2024 8:08 PM SALES DEVELOPMENT MANAGER Adelina Galvan MD LAB BLOOD ORDERABLES Fi nal Result [facility] Department [place] [address] * eGFR (09/27/2024 7:59 PM SALES DEVELOPMENT MANAGER) [facility] eGFR >90 >=60 mL/min/1. 73 m2 Comment: [...] last reviewed 2021. Blood 09/27/2024 7:59 PM SALES DEVELOPMENT MANAGER 09/27/2024 8:29 PM SALES DEVELOPMENT MANAGER Adelina Galvan MD LAB BLOOD ORDERABLES Fi nal Result [facility] Department [place] [address] * (ABNORMAL) Differential, auto (09/27/2024 7:59 PM SALES DEVELOPMENT MANAGER) Pathologist [facility] Neutrophil abs 21.9(H) 1.5 - 6.5 K/cumm Imm gran abs 0.2(H) 0.0 - 0.1 K/cumm [facility] Lymphocyte abs 1.4 0.8 - 3.3 K/cumm [facility] Monocyte abs 0.6 0.2 - 0.8 K/cumm [facility] Eosinophil abs 0.1 0.0 - 0.5 K/cumm [facility] Basophil abs 0.0 0.0 - 0.1 K/cumm [facility] Neutrophil pct 90.5 % [facility] Comment: Interpretive Data Percent cell count reference ranges are not reported, since discordance with absolute values may lead to misinterpretation of CBC data. Current Interpretive Data was last revised on 2018. Imm gran pct 1.0 % [facility] Comment: Interpretive Data Percent cell count reference ranges are not reported, since discordance with absolute values may lead to misinterpretation of CBC data. Current Interpretive Data was last revised on 2018. Lymphocyte pct 5.6 % [facility] Comment: Interpretive Data Percent cell count reference ranges are not reported, since discordance with absolute values may lead to misinterpretation of CBC data. Current Interpretive Data was last revised on 2018. Monocyte pct 2.4 % [facility] Comment: Interpretive Data Percent cell count reference ranges are not reported, since discordance with absolute values may lead to misinterpretation of CBC data. Current Interpretive Data was last revised on 2018. Eosinophil pct 0.3 % [facility] Comment: Interpretive Data Percent cell count reference ranges are not reported, since discordance with absolute values may lead to misinterpretation of CBC data. Current Interpretive Data was last revised on 2018. Basophil pct 0.2 % [facility] Comment: Interpretive Data Percent cell count reference ranges are not reported, since discordance with absolute values may lead to misinterpretation of CBC data. Current Interpretive Data was last revised on 2018. Blood 09/27/2024 7:59 PM SALES DEVELOPMENT MANAGER 09/27/2024 8:26 PM SALES DEVELOPMENT MANAGER us Adelina Galvan MD LAB BLOOD ORDERABLES Fi nal Result [facility] Department [place] [address] * (ABNORMAL) CBC with auto differential (09/27/2024 7:59 PM SALES DEVELOPMENT MANAGER) WBC 24.2(H) 3.8 - 9.9 K/cumm Hgb 10.7(L) 13.0 - 17.5 g/dL [facility] Hct 35.3(L) 38.9 - 50.3 % [facility] Plt 463(H) 150 - 400 K/cumm [facility] MPV 10.9 9.1 - 12.3 fL [facility] RBC 4.83 4.30 - 5.80 M/cumm [facility] MCV 73.1(L) 81.3 - 96.4 fL [facility] MCH 22.2(L) 27.1 - 33.3 pg [facility] MCHC 30.3(L) 32.3 - 35.7 g/dL [facility] RDW CV 17.2(H) 11.1 - 14.9 % [facility] RDW SD 45.4 35.7 - 48.1 fL [facility] NRBC abs 0.00 0.00 - 0.01 K/cumm [facility] Blood 09/27/2024 7:59 PM SALES DEVELOPMENT MANAGER 09/27/2024 8:26 PM SALES DEVELOPMENT MANAGER Adelina Galvan MD LAB BLOOD ORDERABLES Fi nal Result [facility] Department [place] [address] * Blood culture Blood Peripheral (09/27/2024 7:59 PM SALES DEVELOPMENT MANAGER) Report Final Report: No growth Blood (Peripheral) 09/27/2024 7:59 PM SALES DEVELOPMENT MANAGER 09/27/2024 8:11 PM SALES DEVELOPMENT MANAGER Narrative [facility] - 10/02/2024 7:00 AM SALES DEVELOPMENT MANAGER Draw Blood cultures before administration of Antibiotics [...] organism identification may be performed using the GoodDataigene Gram-Positive Blood Culture Assay. This assay detects microbial DNA in positive blood culture broth via hybridization of target DNA to capture oligonucleotides on a microarray. This assay has been cleared by the [place] Food and Drug Administration and its performance characteristics have been verified by the [facility]. 5. ?For questions about this culture, contact the Microbiology Laboratory at [phone]. Interpretive data was last revised on 2020. us Adelina Galvan MD LAB MICROBIOLOGY - GENE RAL ORDERABLES Final Result [facility] Department [place] [address] * (ABNORMAL) Comprehensive metabolic panel (09/27/2024 7:59 PM SALES DEVELOPMENT MANAGER) Sodium 132(L) 135 - 145 mmol/L Potassium, pl 4.3 3.3 - 4.9 mmol/L [facility] Comment:Hemolyzed; Potassium value may be falsely elevated by as much as 0.3-0.5 mmol/L. Suggest redraw and reanalysis. Chloride 96(L) 97 - 110 mmol/L [facility] CO2 21(L) 22 - 32 mmol/L [facility] Anion gap 15 2 - 15 mmol/L [facility] BUN 7 6 - 25 mg/dL [facility] Creatinine 0.74(L) 0.80 - 1.30 mg/dL [facility] Glucose 74 70 - 199 mg/dL [facility] Comment: Interpretive Data Fasting glucose >/= 126 [...] 2022. Calcium 9.4 8.5 - 10.3 mg/dL [facility] Bilirubin, total 0.8 0.1 - 1.2 mg/dL [facility] Protein, pl 9.6(H) 6.5 - 8.5 g/dL [facility] Albumin 3.4(L) 3.5 - 5.0 g/dL [facility] Alk phos 143(H) 40 - 130 Units/L [facility] ALT 71(H) 7 - 55 Units/L [facility] AST 47 10 - 50 Units/L [facility] Comment:Hemolyzed; result ma y be falsely elevated Blood 09/27/2024 7:59 PM SALES DEVELOPMENT MANAGER 09/27/2024 8:29 PM SALES DEVELOPMENT MANAGER us Adelina Galvan MD LAB BLOOD ORDERABLES Fi nal Result [facility] [place] [address] from Last 3 Months Additional Health Concerns Infection Onset Date Last 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 Source: [facility] [employer]. 11/17/2023 [place] [address] IDPA MEDICARE IDPA [facility] MEDICARE IDPA Advance Directives For more information, please contact: [phone] * Full Code (Latest Code Status on File) Date Activated Date Inactivated Comments 08/06/2021 1:00 PM 08/11/2021 10:46 PM * Full Code Date Activated Date Inactivated Comments 05/22/2021 1:38 PM 05/28/2021 5:06 AM * Full Code Date Activated Date Inactivated Comments 03/28/2021 5:17 PM 04/12/2021 12:02 AM * Full Code Date Activated Date Inactivated Comments 01/10/2019 10:30 PM 01/24/2019 4:31 PM 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
--- OUTSIDE RECORDS SUMMARY | 2024-11-11 02:10 | XMS_ITS | Encounter Summary ---
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 Three times a week 08/07/2021 How often do you get togethe r with friends or relatives? Three times a week 08/07/2021 How often do you attend chur ch or hindu services? Never 08/07/2021 Do you belong to any clubs o r organizations such as oriental orthodox groups, unions, fraternal or athletic groups, or school groups? No 08/07/2021 How often do you attend meet ings of the clubs or organizations you belong to? Never 08/07/2021 Are you , , di vorced, , never , or living with a partner? Never 08/07/2021 AUDIT-C Answer Date Recorded Q1: How often do you have a drink containing alc ohol? Never 08/06/2021 Q2: How many drinks containi ng alcohol do you have on a typical day when you are drinking? Patient declined 08/06/2021 Q3: How often do you have si x or more drinks on one occasion? Never 08/06/2021 Overall Financial Resource Strain (CARDIA) Answe r [...] place to sleep or slept in a senior care (including now)? 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
--- OUTSIDE RECORDS SUMMARY | 2024-11-11 02:10 | XMS_ITS | Encounter Summary ---
Author Organization [facility] Address [address] [facility] [address] [place] [address] Phone Care Team Providers Care Foam Dispenser Name Role Phone Saw Louie MD Primary Care Provider [phone] Encounter Details Date Type Department Care Team (Late st Contact Info) Description 07/08/2021 Orders Only [facility] Infectious Diseases [address] [place] [address] [address] [place] [address] Evette Guevara, TASHA [address] [facility] [id number] [place], [place] [id number] Infected fluid collection without fistula (Primary Dx) Social History Tobacco Use Types Packs/Day Years Used Date Smoking Tobacco: Former AUDIT-C Answer Date Recorded Q1: How often do you have a drink containing alc ohol? Never 03/28/2021 Average Number of Drinks Not on file 021 Frequency of Binge Drinking Not on file 03/09 Sex and Gender Information Value Date Recorded Sex Assigned at Not on file Legal Sex Male 5:38 AM CREDIT ADMINISTRATION MANAGER Gender Identity Male 05/21/2022 3:19 PM CDT Sexual Orientation Straight 05/21/2022 3: 19 PM CDT documented as of this encounter Progress Notes * Evette Guevara NP - 07/08/2021 8:15 AM CDT Initially referred to [facility], however they noted after looking at imaging they recommended that a referral to IR for drain placement would be more beneficial. 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
--- OUTSIDE RECORDS SUMMARY | 2024-11-11 02:10 | XMS_ITS | Encounter Summary ---
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 Risk (09/25/2024) Received from [facility] Health AUDIT-C Frequency of Alcohol Consumption: Never Average Number of Drinks: Patient does not drink Frequency of Binge Drinking: Never OBJECTIVE VITALS Vitals: 09/28/24 1305 BP: Pulse: 84 Resp: Temp: SpO2: Arrival Vitals Temp 09/27/24 1814 37.1 ??C (98.7 ??F) Pulse 09/27/24 1814 (!) 131 Resp 09/27/24 181 27 BP 09/27/241813 117/72 SpO2 09/27/24 181 99 % Temp src 09/27/24 181 Oral [...] c/s, appreciate recs:likely OR tomorrow NPO at [facility], T+S, coags - ID c/s, appreciate recs: [...] lasix, sterling - Diet: Regular, NPO at [facility] - DVT PPX: lovenox - Access:PIV - PT/OT: pending - CODE STATUS: Prior FULL CODE EMERGENCY CONTACT Contact: Extended Emergency Contact Information Primary Emergency Contact: Julissa Barron [facility] Relation: Mother Secondary Emergency Contact: Shawn Casey [facility] Relation: Father Edgar Gonzalez MD Internal Medicine Resident, PGY1 4:39 PM 09/28/24 Cosigned by Kathia Ruiz MD at 09/28/2024 7:38 PM COMMERCIAL DRONE SOFTWARE DEVELOPER ERCIAL DRONE SOFTWARE DEVELOPER ERCIAL DRONE SOFTWARE DEVELOPER Associated attestation - Kathia Ruiz MD - 09/28/2024 7:38 PM COMMERCIAL DRONE SOFTWARE DEVELOPER Attending Documentation I have seen and examined [...] the wound/ostomy team. SHEREEN Hull, RN, CWON ERCIAL DRONE SOFTWARE DEVELOPER * Cyndy Sinha LCSW - 10/02/2024 12:17 [...] and is seeking new placement. DENISHA called [facility] to initiate a hotline report. DENISHA was directed by the hotline employee to contact [facility] [phone] ext [phone]. DENISHA called the office, however DENISHA was unable to reach an employee and left a message requesting a return call at 11:35am. DENISHA is awaiting a return call to complete the hotline report. DENISHA notified CM of patient's request for new placement. KELLY Sidhu, CRYSTAL REPORT DEVELOPER Update 1429: DENISHA received return phone call from the [facility] office, Jade [phone]. DENISHA provided the above information for the hotline report. Jade stated the facility recently changed ownership and there have been several problems since then. Jade requested patient's contact information to speak with him for further details. DENISHA provided information and will remain available as needed. KELLY Sidhu, CRYSTAL REPORT DEVELOPER ERCIAL DRONE SOFTWARE DEVELOPER ERCIAL DRONE SOFTWARE DEVELOPER * Cedric More MD - 10/02/2024 9:30 [...] and previously discussed with [place]. Lives at [facility] [id number], CM currently working to place in new [...] (LINZESS) 145 mcg capsule 145 mcg daily Saniya Harp MD NIFEdipine (NIFEdipine XL) 60 mg 24 hr tablet Take 60 mg by mouth daily Saniya Harp, MD pantoprazole DR (PROTONIX) 40 mg EC [...] (Added by TW Conv) Review of Systems: Negative for other Cardiac, Respiratory, GI, , Neuro, MSK, Psych, or Endocrine concerns unless otherwise stated in HPI. Objective Vitals: 24hr Min/Max: Temp Min: 36.2 ??C (97.2 ??F) Max: 37.1 ??C (98.8 ??F) Pulse Min: 68 Max: 84 BP Min: 98/67 Max: 123/74 Resp Min: 14 Max: 18 SpO2 Min: 99 % Max: 100 % Most Recent: Vitals: 10/01/24199910/01/24202610/02/24 0454 10/02/24 0918 BP: 109/65 98/67 111/74 BP Location: [...] for coverage pending attending discussion. Cosigned by nIa Ernst MD at 10/02/2024 1:02 PM COMMERCIAL DRONE SOFTWARE DEVELOPER ERCIAL DRONE SOFTWARE DEVELOPER ERCIAL DRONE SOFTWARE DEVELOPER * Samantha Mackenzie RN - 09/28/2024 2:57 PM CSTAssociated Order(s): CONSULT TO WOUND CARE Consultation for recommendation for sacrum wounds. Per RN Alice stated surgery saw in the Emergency department and plans to do debridement. Wound/ostomy will defer recommendations to surgery. Please call wound/ostomy for any questions or concerns. Thank you! Mckayla Mackenzie RN, BSN CWON Wound Ostomy Team ERCIAL DRONE SOFTWARE DEVELOPER * Cam Marquez MD - 09/28/2024 11:31 AM CSTAssociated Order(s): IP CONSULT TO TRAUMA SURGERY Images from the original note were not included. [facility] Emergency [...] neoplasm - (Added by TW Conv) Social History: reports that he has [...] Teri Hendrix DO at 09/29/2024 10:11 AM COMMERCIAL DRONE SOFTWARE DEVELOPER ERCIAL DRONE SOFTWARE DEVELOPER ERCIAL DRONE SOFTWARE DEVELOPER Associated attestation - Teri Hendrix DO - 09/29/2024 10:11 AM COMMERCIAL DRONE SOFTWARE DEVELOPER I have seen and examined the patient [...] Hendrix DO Trauma and Acute Care Surgery [facility] * Derick Camargo MD - 09/28/2024 11:18 [...] bilious vomiting last Wednesday, [facility]alt [facility] he was tachycardic with soft blood [...] 8.6-50 mg Current Facility-Administered Medications Ordered in Epic Medication Dose Route Frequency Provider Last Rate [...] BID Edgar Gonzalez Meng, MD No current [facility]-ordered outpatient medications on file. Anti-infectives (From admission, onward) Start Dose/Rate Route Frequency Ordered Stop 09/28/24 0900 metroNIDAZOLE (FLAGYL) 500 mg/100 mL in sodium chloride (premix) 500 mg 500 mg 200 mL/hr over 30 Minutes intravenous Every 12 hours scheduled 09/27/24 2219 09/28/24 0600 meropenem (MERREM) 1,000 mg/50 mL in sodium chloride 0.9% (premix) 1,000 mg 1,000 mg over 30 Minutes intravenous Every 8 hours scheduled 09/27/24 2221 09/27/24 2303 linezolid (ZYVOX) 600 mg/300 mL [...] (Added by CASANDRA Conv) Review of Systems: Review of Systems [...] Lying Pulse: 110 113 105 93 Resp: 16 Temp: 36.4 ??C (97.5 ??F) TempSrc: Oral SpO2: 96% 96% 100% 100% Weight: I/O last 2 completed shifts: In: 2300 [IV Piggyback:2300] Out: - Physical Exam: Physical Exam Constitutional: [...] Virologic Testing: HIV Screen:No results found for: [id number] CD4:No results found for: CD4ABS , CD4PCT Common Virologic Results: No results found for: JLD8SJG , CD4ABS , CD4PCT , NUCLEOSRT , [...] longer evident in Lateral leads Confirmed by CARRINGTON GONZALES M.D ([id number]) on 08/11/2021 4:03:20 PM Echo: Imaging: [...] for a diversion colostomy so having a care home plan for his decubitus ulcer management with [...] Santos Norris MD at 09/28/2024 5:31 PM COMMERCIAL DRONE SOFTWARE DEVELOPER ERCIAL DRONE SOFTWARE DEVELOPER ERCIAL DRONE SOFTWARE DEVELOPER Associated attestation - Santos Norris MD - 09/28/2024 5:31 PM COMMERCIAL DRONE SOFTWARE DEVELOPER I have seen and examined the patient [...] being planned for a diverting colostomy at [facility]. He is also considering looking for another [...] CST Report given to Dahlia VIRGEN at [facility] prior to transfer. ERCIAL DRONE SOFTWARE DEVELOPER documented in this encounter ED Notes * Abena Kasper RN - 09/28/2024 1:16 AM CST Bed: ED4-03 Expected date: Expected time: Means of arrival: Comments: 23 Abena Kasper RN 09/28/24 0116 ERCIAL DRONE SOFTWARE DEVELOPER * Adelina Galvan MD - 09/27/2024 7:25 [...] injury of buttock, unstageable, unspecified laterality (HCC) 09/27/2024 ??? Sacral osteomyelitis (CMS/HCC) ([facility]) 08/05/2021 ??? Severe malnutrition (CMS/HCC) ([facility]) 05/23/2021 ??? Abdominal pain 05/22/2021 ??? Spinal abscess (CMS/HCC) ([facility]) 05/15/2021 ??? Discharge planning issues 04/10/2021 ??? [...] Triage Vitals Temp Pulse Resp BP SpO2 09/27/24 1814 11/20/181309/27/24181309/27/24181309/27/241813 37.1 ??C (98.7 ??F) (!) 131 27 [...] alert. Psychiatric: Mood and Affect: Mood normal. [facility] Medical Decision Making The patient is a [...] or all of this document. ??Despite proofreading, director internal control variances and/or typographical errors might have occurred. 39-year-old male with chronic paraplegia and chronic sacral decubitus ulcers as well as chronic indwelling Lynch catheter patient presents due to concern for osteomyelitis under his chronic runs and was sent from his [facility] long-term [facility] for ID consult. On arrival patient [...] Jax Cadena MD at 09/28/2024 7:05 PM COMMERCIAL DRONE SOFTWARE DEVELOPER ERCIAL DRONE SOFTWARE DEVELOPER ERCIAL DRONE SOFTWARE DEVELOPER * Cristina Dangelo, PARAM - 09/27/2024 6:07 PM CST Pt BIBEMS, pt was doing prep for colonoscopy but they were unable to complete the colonoscopy due to stool not clearing. Pt also had xray of abd and back, concern for osteomyelitis, pt is paraplegic at level of T5, pt with chronic wounds. Pt sent from [place] for infectious disease consult. ERCIAL DRONE SOFTWARE DEVELOPER documented in this encounter Miscellaneous Notes * Plan of Care - Zoila Morales RN - 10/09/2024 4:01 PM CST 10/09/24 1559 Discharge Summary Discharge Disposition [facility] (care home care) Specify Facility [facility] in [place], [place] - room D12-3 Facility Contact Number [phone] Rick Carpio Discharge Records Chart Copied Recommended Discharge Level of Care [facility] (long term care phlebotomist care) Actual Discharge Level of Care [facility] (care home care) Does Actual Level of Care Match Care Team Recommendation? Yes Post Acute Care Plan Home Care Services N/A OP Services N/A DME N/A Post Acute Care Facility N/A Discharge Additional Assistance Does the patient need discharge transport arranged? Yes Type of Transportation Ambulance/EMS Has discharge transport been arranged? Yes Details of Transportation [facility], Trip# [phone] D/C Transport Anticipated Date 10/09/24 D/C Transport [...] has been acceptedfor return to LTC at [place], [place]. CM spoke with the patient/family, admissions, medical team, and RN regarding discharge planning, and all are agreeable to discharge. Post- acute care transfer packet completed and will be sent with the patient. RN provided with report number to nurses station. Room # D12-3 provided by facility. Patient/family informed patient may require ambulance transport. security services manager informed patient/family that even if the patient's insurance benefit includes ambulance transport, it may not cover the full cost of the transportation. The patient may be responsible for any [id number] cost, includingmileage beyond the nearest appropriate facility. Patient/family voiced understanding. Mode of transport has been discussed with the patient/family, MD, nursing staff. All are agreeable to plan and understand their responsibilities to ensure the safe transfer. Zoila Morales, MSN, horse racetrack manager ERCIAL DRONE SOFTWARE DEVELOPER * Hospital Course - Edgar Gonzalez Meng, [...] cultures was noted to have growth of reentta albicans in 1 of 2 tissue samples, [...] not require them on admission or discharge. ERCIAL DRONE SOFTWARE DEVELOPER ERCIAL DRONE SOFTWARE DEVELOPER ERCIAL DRONE SOFTWARE DEVELOPER ERCIAL DRONE SOFTWARE DEVELOPER ERCIAL DRONE SOFTWARE DEVELOPER ERCIAL DRONE SOFTWARE DEVELOPER ERCIAL DRONE SOFTWARE DEVELOPER * Plan of Care - Alice Rooney [...] remain free from pain, distress, and falls Senior Living Patient Centered Goal for Treatment: dc back to facility at baseline with wound healing ERCIAL DRONE SOFTWARE DEVELOPER * Plan of Care - Melany Mchugh RN - 10/09/2024 12:07 AM COMMERCIAL DRONE SOFTWARE DEVELOPER Goals: Clinical Goals for the Shift: Monitor VS, pain mgt, wound care, Q2 turn, Straight cath, safety, meds, sleep Hazardous Materials Analyst Patient Centered Goal for Treatment: dc back to facility at baseline with wound healing Progressing ERCIAL DRONE SOFTWARE DEVELOPER * Plan of Care - Ana M [...] vital signs, medication, wound care, comfort, safety Hazardous Materials Analyst Patient Centered Goal for Treatment: dc back to facility at baseline with wound healing Summary: Patient maintained stable vital signs, received ordered medications, had wound care completed, and reported adequate pain control with ordered pain meds. ERCIAL DRONE SOFTWARE DEVELOPER * Plan of Care - Trino Medeiros RN - 10/08/2024 6:20 AM CST Goals: Clinical Goals for the Shift: Monitor vital signs, labs, pain, antibiotics, wound care, intermittent straight catheterization, free from falls and injury. Hazardous Materials Analyst Patient Centered Goal for Treatment: dc back to facility at baseline with wound healing Summary: Vital signs and labs stable. Pain well controlled (2/10). Antibiotics administered. Patient free from falls and injury. ERCIAL DRONE SOFTWARE DEVELOPER * Plan of Care - Sharmin Quan RN - 10/06/2024 10:58 PM CST Goals: Clinical Goals for the Shift: Monitor labs/vitals/I&O, decrease pain and maintain comfort/safety. Senior Living Patient Centered Goal for Treatment: pt dc back to fdc with repaired and healingwound with minimal pain [...] will be avoided or minimized. Outcome: Progressing ERCIAL DRONE SOFTWARE DEVELOPER * Plan of Care - Zoila Morales RN - 10/06/2024 3:13 PM CST CM spoke with liaison for [facility] [place], phone: [phone] - patient can return to facility with port for IV abx delivery. Patient can return on 10/09/24. Patient is a long-term care resident at facility. NIKKO Crump, horse racetrack manager ERCIAL DRONE SOFTWARE DEVELOPER * Plan of Care - Nancy Cleveland RN - 10/06/2024 3:12 AM CST Goals: Clinical Goals for the Shift: Monitor labs/vitals/I&O, decrease pain and maintain comfort/safety. Hazardous Materials Analyst Patient Centered Goal for Treatment: pt dc back to fdc with repaired and healingwound with minimal pain [...] will be avoided or minimized. Outcome: Progressing ERCIAL DRONE SOFTWARE DEVELOPER * Plan of Care - Jaylyn Pressley RN - 10/05/2024 11:32 AM CST Goals: Clinical Goals for the Shift: monitor vitals Senior Living Patient Centered Goal for Treatment: pt dc back to fdc with repaired and healingwound with minimal pain Summary: Problem: Lack of Knowledge Goal: Ability to develop a pain control plan will improve Outcome: Progressing ERCIAL DRONE SOFTWARE DEVELOPER * Plan of Care - Kaitlynn Amaya RN - 10/05/2024 5:53 AM CST Goals: Clinical Goals for the Shift: remain free from falls; pain management; maintain vital signs and labvalues within normal limits; improved skin integrity; no signs or symptoms of infection\ Hazardous Materials Analyst Patient Centered Goal for Treatment: pt dc back to fdc with repaired and healingwound with minimal pain [...] free from injury from falls Outcome: Progressing ERCIAL DRONE SOFTWARE DEVELOPER * Plan of Care - Siria Hartman RN - 10/04/2024 5:55 PM CST Goals: Clinical Goals for the Shift: VSS; Pain management; Safety and comfort Senior Living Patient Centered Goal for Treatment: pt dc back to fdc with repaired and healingwound with minimal pain [...] free from injury from falls Outcome: Progressing ERCIAL DRONE SOFTWARE DEVELOPER * Significant Event - Cam Marquez MD - 10/04/2024 12:54 PM COMMERCIAL DRONE SOFTWARE DEVELOPER ACCS was re-engaged for possible diverting colostomy. [...] in therectum despite bowel prep. GI at [facility] has treated him with Linzess, Lactulose, Dulcolax, and some fleet enemas as we. While he hasn't seen a surgeon yet for consideration of a diverting colostomy, GI notes indicate a referral to colorectal surgery has been made. Given that there is significant constipation and history of neurogenic bowel, patient needs more work up before consideration of diverting colostomy. He's been managed by [facility] GI, so patient should continue receiving work up and care from them. If patient would like to be seen by [facility] GI and colorectal surgery, arrangements can be made. Cam Marquez MD ACCS Consult Service ERCIAL DRONE SOFTWARE DEVELOPER * Plan of Care - Suzan Hutchison [...] cath as needed, wound care, and rest Senior Living Patient Centered Goal for Treatment: pt dc back to fdc with repaired and healingwound with minimal pain Summary: VSS and patient remains A&Ox4 while on room air. Wound care/dressing change done as ordered. Scheduled and prn pain medications given. Pt had a BM this shift and continues to cath himself. Safety precautions maintained and rest promoted. Call light is within reach and rest promoted. ERCIAL DRONE SOFTWARE DEVELOPER * Plan of Care - Ana M [...] medication, comfort, safety, wound care, pain control Hazardous Materials Analyst Patient Centered Goal for Treatment: pt dc back to fdc with repaired and healingwound with minimal pain Summary: Patient maintained stable vital signs, received ordered medication, had wound care completed, and remained free from falls. ERCIAL DRONE SOFTWARE DEVELOPER * Initial Assessments - Madison Viramontes RN - 10/03/2024 3:17 PM COMMERCIAL DRONE SOFTWARE DEVELOPER CM Initial Assessment Interview Note Information Obtained From: Patient (at bedside) (10/03/24 1712) Admission Source: [facility] Plan Includes: 39 y.o. male who presents with weakness in the setting of worsening sacral decubituswound Primary Source of Transportation: Does the patient need discharge transport arranged?: Yes Has discharge transport been arranged?: No (10/03/241511) Health Insurance Coverage: Medicare and Medicaid Prescription Coverage: yes Pharmacy: [facility] - [place], [place] - [address] [facility] [id number] [place], [place] - [address] [facility] [address] Primary Care Provider: Rick Carpio MD Prior [...] Care: Anticipated discharge level of care: [facility] (care home care) Pt/Family agrees with Anticipated Level of Care: Yes (10/03/241511) Patient expects to be Discharged to: [facility] (care home care), (10/03/241511) Additional Information: .Address and phone number verified with patient. Pt lives in a care home care fdc. Prior to hospitalization pt was mostly dependent with activities of daily living and care. Patient has adequate family support which includes parents. CM to arrange transportation at discharge. Pt does not want to return to fdc. CM proactively sent referrals via [employer] and sent pt's mother a list of facilities per his request. Notified pt's mother that it is the responsibility of the nursing facility to find different placement as patient cannot remain in hospital while CM attempts to find a different long term care phlebotomist care facility. [facility] Pt's mother verbalized understanding. [...] Collaboration with Patient, Provider, Direct Care Nurse, Fiscal Accounting Clerk, and other members of theHealth Care Team to assure needed interventions completed. 2. Return patient to optimal level of self-care post discharge. 3. Die Trimmer will follow for Discharge Planning - interventions as needed 4. Anticipated level of care at discharge 5. Planned Discharge Disposition Madison Viramontes RN ERCIAL DRONE SOFTWARE DEVELOPER ERCIAL DRONE SOFTWARE DEVELOPER * Consults, Subsequent - Derick Camargo MD - 10/03/2024 1:10 PM COMMERCIAL DRONE SOFTWARE DEVELOPER Infectious Disease Subsequent Consult Note Infectious Disease Team: General 3 Contact Information: Please see [facility] Treatment Team listing for up-to-date contact information. Subjective Chief complaint of Fatigue, foul smelling discharge from wound Interval History: Feeling better after the debridement Objective Anti-infectives (From admission, onward) Start Dose/Rate Route Frequency Ordered Stop 10/02/241999 cefTRIAXone (ROCEPHIN) 2,000 mg/20 mL in sterile water (premix) 2,000 mg 2,000 mg 240 mL/hr over 5 Minutes intravenous Every 24 hours scheduled 10/02/24 1136 09/28/242099 metroNIDAZOLE (FLAGYL) tablet 500 mg 500 mg [...] to sacrum and progressive osseous destruction. OR 11/22 with general surgery for excisional debridement of the skin, subc tissue, fascia and bone. 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 Patient will be having a diversion colostomy later on at [facility], [facility] might plan for flap surgery then.No [...] Santos Norris MD at 10/04/2024 7:14 AM COMMERCIAL DRONE SOFTWARE DEVELOPER ERCIAL DRONE SOFTWARE DEVELOPER ERCIAL DRONE SOFTWARE DEVELOPER ERCIAL DRONE SOFTWARE DEVELOPER Associated attestation - Santos Norris MD - 10/04/2024 7:14 AM COMMERCIAL DRONE SOFTWARE DEVELOPER I have seen and examined the patient [...] cath as needed, wound care, and rest Senior Living Patient Centered Goal for Treatment: pt dc back to fdc with repaired and healingwound with minimal pain [...] rest promoted. Call light is within reach. ERCIAL DRONE SOFTWARE DEVELOPER ERCIAL DRONE SOFTWARE DEVELOPER * Assessment & Plan Note - Fernanda Ling NP - 10/02/2024 11:25 AM COMMERCIAL DRONE SOFTWARE DEVELOPER Associated Problem(s): Pressure injury of buttock, unstageable, [...] weekly. -ID to follow for PRS plan. ERCIAL DRONE SOFTWARE DEVELOPER * Consults, Subsequent - Fernanda Ling NP - 10/02/2024 10:00 AM COMMERCIAL DRONE SOFTWARE DEVELOPER Infectious Disease Subsequent Consult Note Infectious Disease Team: General 3 Contact Information: Please contact the Team 3 ID ENGINE HEAD REPAIRER (unavailable on Wednesdays) or the Attending at the phone numbers listed in care teams with any questions or concerns. After hours, please contactthe ID fellow operations intelligence superintendent. Subjective Interval History: No acute events. PRS [...] Santos Norris MD at 10/02/2024 2:43 PM COMMERCIAL DRONE SOFTWARE DEVELOPER ERCIAL DRONE SOFTWARE DEVELOPER ERCIAL DRONE SOFTWARE DEVELOPER Associated attestation - Santos Norris MD - 10/02/2024 2:43 PM COMMERCIAL DRONE SOFTWARE DEVELOPER I have seen and examined the patient [...] it. Patient has Medicare part A/B and [facility] Plan of [facility]. Due to numerous factors, including extensive wounds to buttocks, paraplegia, and suprapubic catheter, CM sent referral to multiple LTC facilities via [employer]. Awaiting responses. Will provide list of accepting facilities to patient, as well as a list of facilties within 30 to 40 mile radius of [facility] [place] the even he would like referrals sent to other places. Awaiting responses from facilities. ADDENDUM, 10/02/24 at 1028 COMMERCIAL DRONE SOFTWARE DEVELOPER: Referral sent to [facility] in [place] with request for liaison to review patient's case to see if he is appropriate for LTAC care related to wounds, osteomyelitis, bariatric needs, and IV abx. Awaiting response from [facility] ADDENDUM, 10/02/24 @ 1154 COMMERCIAL DRONE SOFTWARE DEVELOPER: CM received response from Farhan Moon - she states patient does not meet Medicare criteria for a 3 day ICU stay in order to be approved for LTAC. CM stated understanding and conveyed information to Medicine Team. Awaiting responses from LTC facility referrals. [facility] Morales, MSN, horse racetrack manager ERCIAL DRONE SOFTWARE DEVELOPER ERCIAL DRONE SOFTWARE DEVELOPER ERCIAL DRONE SOFTWARE DEVELOPER * Plan of Care - Sharmin Quan [...] will be avoided or minimized. Outcome: Progressing ERCIAL DRONE SOFTWARE DEVELOPER * Plan of Care - Marta Salgado RN - 10/01/2024 11:21 AM CST Goals: Clinical Goals for the Shift: pain control, meds, safety, vss Summary: Patient continues on pain management regimen. Patient remains on iv antibiotics. Patient turns self. Lab work continues to be monitored. Patient will work with PT/OT. ERCIAL DRONE SOFTWARE DEVELOPER * Plan of Care - Sharmin Quan [...] will be avoided or minimized. Outcome: Progressing ERCIAL DRONE SOFTWARE DEVELOPER * Plan of Care - Marta Salgado RN - 09/30/2024 11:26 AM CST Goals: Clinical Goals for the Shift: pain control; monitor vs and labs Summary: Patient intake and output monitored. Vital signs stable. Labs continue to be monitored. Pain continues to be addressed. Patient Port reaccessed today due to no blood return. ERCIAL DRONE SOFTWARE DEVELOPER * Plan of Care - Marline Choi RN - 09/30/2024 5:24 AM COMMERCIAL [employer]ONE SOFTWARE DEVELOPER Goals: Clinical Goals for the Shift: pain [...] flush. MD placed an order for alteplase. ERCIAL DRONE SOFTWARE DEVELOPER * Plan of Care - Zoila Morales [...] made at this time; patient lives [facility],but do not know which facility at this time. ADD: 10/03 security services manager will continue to follow and assist with discharge planning as needed. Zoila Morales, MSN, horse racetrack manager ERCIAL DRONE SOFTWARE DEVELOPER * Perioperative Nursing Note - Kathia Park RN - 09/29/2024 12:35 PM COMMERCIAL DRONE SOFTWARE DEVELOPER MD tried calling patients family to update. No answer. ERCIAL DRONE SOFTWARE DEVELOPER * Op Note - Teri Hendrix DO [...] fashion. A time-out was performed according to [facility] policy. Excisional debridement was performed using [...] Hendrix DO Acute and Critical Care Surgery [facility] ERCIAL DRONE SOFTWARE DEVELOPER ERCIAL DRONE SOFTWARE DEVELOPER * Plan of Care - Alice Rooney [...] remain free from pain, distress, and falls ERCIAL DRONE SOFTWARE DEVELOPER * Plan of Care - Emiliano Magana [...] safe and health-promoting environment. All questions answered. ERCIAL DRONE SOFTWARE DEVELOPER * Plan of Care - Alice Rooney [...] remain free from pain, distress, and falls ERCIAL DRONE SOFTWARE DEVELOPER * ED Re-evaluation Note - Chula Tate MD - 09/28/2024 2:17 AM COMMERCIAL DRONE SOFTWARE DEVELOPER ED Re-evaluation ED Signoff Note 39 y.o. male is admitted to [facility] MEDICINE *POOL for Sepsis and decubitus ulcers complicated by osteomyelitis - Pertinent PMHx includes Paraplegia, HTN - Additional notes: High Concern for UTI, pending Urine collection ED Impressions: 1. Pressure injury of buttock, unstageable, unspecified laterality (HCC) 2. Sepsis without acute organ dysfunction, due to unspecified organism (HCC) ED Course as of 09/28/24217 Time: 09/27 2048 Value: WBC(!): 24.2 Comment: [...] or all of this document. Despite proofreading, director internal control variances and/or typographical errors might have occurred. 39-year-old male with chronic paraplegia and chronic sacral decubitus ulcers as well as chronic indwelling Lynch catheter patient presents due to concern for osteomyelitis under his chronic runs and was sent from his chronic long-term acute care hospital for ID consult. On arrival patient [...] injection 25 mg (25 mg intravenous Given 09/27/242253) ioversoL (OPTIRAY 350) syringe 100 mL (94 mL intravenous Contrast Given 09/27/246) ondansetron ODT (ZOFRAN-ODT) disintegrating tablet 4 mg [...] The spleen, pancreas, and adrenal glands are normal.The main pancreatic duct is nondilated. The kidneys enhance symmetrically. Cortical scarring in theright kidney. Small hypoattenuating lesions within the right [...] ED provider note. Chula Tate MD Resident 09/28/245 ERCIAL DRONE SOFTWARE DEVELOPER documented in this encounter Plan of Treatment Pending Results Name Type Priority Associated Diagnoses Date /Time Magnesium Lab Routine 10/02/2024 2:2 4 AM COMMERCIAL [employer]ONE SOFTWARE DEVELOPER Comprehensive metabolic panel Lab Timed 10/03/2024 5:42 AM COMMERCIAL [employer]ONE SOFTWARE DEVELOPER Comprehensive metabolic panel Lab Timed 10/04/2024 6:24 AM COMMERCIAL [employer]ONE SOFTWARE DEVELOPER Magnesium Lab Routine 10/05/2024 8:1 3 AM COMMERCIAL [employer]ONE SOFTWARE DEVELOPER Phosphorus Lab Routine 10/05/2024 8:1 3 AM COMMERCIAL [employer]ONE SOFTWARE DEVELOPER Comprehensive metabolic panel Lab Timed 10/06/2024 6:15 AM COMMERCIAL [employer]ONE SOFTWARE DEVELOPER Comprehensive metabolic panel Lab Timed 10/08/2024 4:17 AM COMMERCIAL [employer]ONE SOFTWARE DEVELOPER Scheduled Orders Name Type Priority Associated Diagnoses [...] Diagnosis Comments EGFR Timed 10/08/2024 4:17 AM COMMERCIAL [employer]ONE SOFTWARE DEVELOPER DIFFERENTIAL AUTO Routine 10/08/2024 4:1 7 AM COMMERCIAL DRONE SOFTWARE DEVELOPER CBC WITH AUTO DIFFERENTIAL Routine 10/08/2024 4:17 AM COMMERCIAL [employer]ONE SOFTWARE DEVELOPER PHOSPHORUS Timed 10/08/2024 4:17 AM COMMERCIAL [employer]ONE SOFTWARE DEVELOPER MAGNESIUM Timed 10/08/2024 4:17 AM COMMERCIAL [employer]ONE SOFTWARE DEVELOPER COMPREHENSIVE METABOLIC PANEL Timed 10/08/2024 4:17 AM COMMERCIAL DRONE SOFTWARE DEVELOPER XR ABDOMEN AP 1 VIEW IP Routine 10/07/2024 4:10 PM COMMERCIAL [employer]ONE SOFTWARE DEVELOPER EGFR Routine 10/07/2024 3:16 AM COMMERCIAL DRONE SOFTWARE DEVELOPER DIFFERENTIAL AUTO Routine 10/07/2024 3:1 6 AM COMMERCIAL DRONE SOFTWARE DEVELOPER CBC WITH AUTO DIFFERENTIAL Routine 10/07/2024 3:16 AM COMMERCIAL DRONE SOFTWARE DEVELOPER COMPREHENSIVE METABOLIC PANEL Routine 10/07/2024 3:16 AM COMMERCIAL DRONE SOFTWARE DEVELOPER EGFR Timed 10/06/2024 6:15 AM COMMERCIAL [employer]ONE SOFTWARE DEVELOPER DIFFERENTIAL AUTO Routine 10/06/2024 6:1 5 AM COMMERCIAL [employer]ONE SOFTWARE DEVELOPER CBC WITH AUTO DIFFERENTIAL Routine 10/06/2024 6:15 AM COMMERCIAL [employer]ONE SOFTWARE DEVELOPER PHOSPHORUS Timed 10/06/2024 6:15 AM COMMERCIAL [employer]ONE SOFTWARE DEVELOPER MAGNESIUM Timed 10/06/2024 6:15 AM COMMERCIAL [employer]ONE SOFTWARE DEVELOPER COMPREHENSIVE METABOLIC PANEL Timed 10/06/2024 6:15 AM COMMERCIAL DRONE SOFTWARE DEVELOPER C. DIFFICILE TESTING Routine 10/05/2024 9:43 PM COMMERCIAL DRONE SOFTWARE DEVELOPER INFECTION PREVENTION VRE CULTURE Routine 10/05/2024 9:43 PM COMMERCIAL [employer]ONE SOFTWARE DEVELOPER EGFR Routine 10/05/2024 8:13 AM COMMERCIAL DRONE SOFTWARE DEVELOPER DIFFERENTIAL AUTO Routine 10/05/2024 8:1 3 AM COMMERCIAL DRONE SOFTWARE DEVELOPER CBC WITH AUTO DIFFERENTIAL Routine 10/05/2024 8:13 AM COMMERCIAL [employer]ONE SOFTWARE DEVELOPER PHOSPHORUS Routine 10/05/2024 8:13 AM COMMERCIAL [employer]ONE SOFTWARE DEVELOPER MAGNESIUM Routine 10/05/2024 8:13 AM COMMERCIAL [employer]ONE SOFTWARE DEVELOPER COMPREHENSIVE METABOLIC PANEL Routine 10/05/2024 8:13 AM COMMERCIAL [employer]ONE SOFTWARE DEVELOPER EGFR Timed 10/04/2024 6:24 AM COMMERCIAL [employer]ONE SOFTWARE DEVELOPER DIFFERENTIAL AUTO Routine 10/04/2024 6:2 4 AM COMMERCIAL DRONE SOFTWARE DEVELOPER CBC WITH AUTO DIFFERENTIAL Routine 10/04/2024 6:24 AM COMMERCIAL [employer]ONE SOFTWARE DEVELOPER PHOSPHORUS Timed 10/04/2024 6:24 AM COMMERCIAL [employer]ONE SOFTWARE DEVELOPER MAGNESIUM Timed 10/04/2024 6:24 AM COMMERCIAL [employer]ONE SOFTWARE DEVELOPER COMPREHENSIVE METABOLIC PANEL Timed 10/04/2024 6:24 AM COMMERCIAL [employer]ONE SOFTWARE DEVELOPER EGFR Timed 10/03/2024 5:42 AM COMMERCIAL [employer]ONE SOFTWARE DEVELOPER DIFFERENTIAL AUTO Routine 10/03/2024 5:4 2 AM COMMERCIAL DRONE SOFTWARE DEVELOPER CBC WITH AUTO DIFFERENTIAL Routine 10/03/2024 5:42 AM COMMERCIAL [employer]ONE SOFTWARE DEVELOPER PREALBUMIN Routine 10/03/2024 5:42 AM COMMERCIAL [employer]ONE SOFTWARE DEVELOPER PHOSPHORUS Timed 10/03/2024 5:42 AM COMMERCIAL [employer]ONE SOFTWARE DEVELOPER MAGNESIUM Timed 10/03/2024 5:42 AM COMMERCIAL [employer]ONE SOFTWARE DEVELOPER COMPREHENSIVE METABOLIC PANEL Timed 10/03/2024 5:42 AM COMMERCIAL DRONE SOFTWARE DEVELOPER EGFR Routine 10/02/2024 2:24 AM COMMERCIAL [employer]ONE SOFTWARE DEVELOPER DIFFERENTIAL AUTO Routine 10/02/2024 2:2 4 AM COMMERCIAL DRONE SOFTWARE DEVELOPER CBC WITH AUTO DIFFERENTIAL Routine 10/02/2024 2:24 AM COMMERCIAL [employer]ONE SOFTWARE DEVELOPER MAGNESIUM Routine 10/02/2024 2:24 AM COMMERCIAL [employer]ONE SOFTWARE DEVELOPER BASIC METABOLIC PANEL Routine 10/02/2024 2:24 AM COMMERCIAL DRONE SOFTWARE DEVELOPER EGFR Routine 10/01/2024 2:22 AM COMMERCIAL [employer]ONE SOFTWARE DEVELOPER DIFFERENTIAL AUTO Routine 10/01/2024 2:2 2 AM COMMERCIAL DRONE SOFTWARE DEVELOPER CBC WITH AUTO DIFFERENTIAL Routine 10/01/2024 2:22 AM COMMERCIAL [employer]ONE SOFTWARE DEVELOPER APTT Routine 10/01/2024 2:22 AM COMMERCIAL DRONE SOFTWARE DEVELOPER PROTIME-INR Routine 10/01/2024 2:22 AM COMMERCIAL [employer]ONE SOFTWARE DEVELOPER BASIC METABOLIC PANEL Routine 10/01/2024 2:22 AM COMMERCIAL [employer]ONE SOFTWARE DEVELOPER EGFR Routine 09/29/2024 4:17 PM COMMERCIAL [employer]ONE SOFTWARE DEVELOPER DIFFERENTIAL AUTO Routine 09/29/2024 4:1 7 PM COMMERCIAL [employer]ONE SOFTWARE DEVELOPER CBC WITH AUTO DIFFERENTIAL Routine 09/29/2024 4:17 PM COMMERCIAL [employer]ONE SOFTWARE DEVELOPER APTT Routine 09/29/2024 4:17 PM COMMERCIAL DRONE SOFTWARE DEVELOPER PROTIME-INR Routine 09/29/2024 4:17 PM COMMERCIAL DRONE SOFTWARE DEVELOPER RETICULOCYTES Routine 09/29/2024 4:17 PM COMMERCIAL DRONE SOFTWARE DEVELOPER FOLATE Routine 09/29/2024 4:17 PM COMMERCIAL [employer]ONE SOFTWARE DEVELOPER FERRITIN Routine 09/29/2024 4:17 PM COMMERCIAL DRONE SOFTWARE DEVELOPER VITAMIN B12 Routine 09/29/2024 4:17 PM COMMERCIAL [employer]ONE SOFTWARE DEVELOPER BASIC METABOLIC PANEL Routine 09/29/2024 4:17 PM COMMERCIAL DRONE SOFTWARE DEVELOPER TISSUE AEROBIC AND ANAEROBIC CULTURE AND GRAM STAIN Routine 09/29/2024 12:37 PM COMMERCIAL DRONE SOFTWARE DEVELOPER MYCOLOGY (FUNGAL) CULTURE Routine 09/29/2024 12:37 PM COMMERCIAL DRONE SOFTWARE DEVELOPER TISSUE AEROBIC AND ANAEROBIC CULTURE AND GRAM STAIN Routine 09/29/2024 12:26 PM COMMERCIAL DRONE SOFTWARE DEVELOPER MYCOLOGY (FUNGAL) CULTURE Routine 09/29/2024 12:26 PM COMMERCIAL DRONE SOFTWARE DEVELOPER DEBRIDEMENT - SACRUM/ISCHIUM 09/29/2024 11:20 AM COMMERCIAL DRONE SOFTWARE DEVELOPER Pressure injury of buttock, unstageable, unspecified laterality (HCC) EGFR Routine 09/29/2024 5:48 AM COMMERCIAL DRONE SOFTWARE DEVELOPER DIFFERENTIAL AUTO Routine 09/29/2024 5:4 8 AM COMMERCIAL DRONE SOFTWARE DEVELOPER CBC WITH AUTO DIFFERENTIAL Routine 09/29/2024 5:48 AM COMMERCIAL DRONE SOFTWARE DEVELOPER APTT Routine 09/29/2024 5:48 AM COMMERCIAL DRONE SOFTWARE DEVELOPER PROTIME-INR Routine 09/29/2024 5:48 AM COMMERCIAL DRONE SOFTWARE DEVELOPER BASIC METABOLIC PANEL Routine 09/29/2024 5:48 AM COMMERCIAL DRONE SOFTWARE DEVELOPER CBC WITHOUT DIFFERENTIAL Timed 09/28/2024 9:26 PM COMMERCIAL DRONE SOFTWARE DEVELOPER POTASSIUM, WHOLE BLOOD STAT 09/28/2024 1:54 PM COMMERCIAL DRONE SOFTWARE DEVELOPER EGFR STAT 09/28/2024 1:54 PM COMMERCIAL DRONE SOFTWARE DEVELOPER DIFFERENTIAL AUTO STAT 09/28/2024 1:5 4 PM COMMERCIAL DRONE SOFTWARE DEVELOPER IRON PROFILE W/ IBC STAT 09/28/2024 1 :54 PM COMMERCIAL DRONE SOFTWARE DEVELOPER CBC WITH AUTO DIFFERENTIAL STAT 09/28/2024 1:54 PM COMMERCIAL DRONE SOFTWARE DEVELOPER APTT STAT 09/28/2024 1:54 PM COMMERCIAL DRONE SOFTWARE DEVELOPER PROTIME-INR STAT 09/28/2024 1:54 PM COMMERCIAL DRONE SOFTWARE DEVELOPER TYPE AND SCREEN STAT 09/28/2024 1:54 PM COMMERCIAL DRONE SOFTWARE DEVELOPER OSMOLALITY, BLOOD STAT 09/28/2024 1:5 4 PM COMMERCIAL DRONE SOFTWARE DEVELOPER HEMOGLOBIN A1C STAT 09/28/2024 1:54 PM COMMERCIAL DRONE SOFTWARE DEVELOPER COMPREHENSIVE METABOLIC PANEL STAT 09/28/2024 1:54 PM COMMERCIAL DRONE SOFTWARE DEVELOPER URINE CULTURE STAT 09/28/2024 1:35 PM COMMERCIAL DRONE SOFTWARE DEVELOPER UREA NITROGEN, URINE, RANDOM STAT 09/28/2024 1:07 PM COMMERCIAL DRONE SOFTWARE DEVELOPER SODIUM, URINE, RANDOM STAT 09/28/2024 1:07 PM COMMERCIAL DRONE SOFTWARE DEVELOPER OSMOLALITY, URINE STAT 09/28/2024 1:0 7 PM COMMERCIAL DRONE SOFTWARE DEVELOPER CREATININE, URINE, RANDOM STAT 09/28/2024 1:07 PM COMMERCIAL DRONE SOFTWARE DEVELOPER ECG 12-LEAD Routine 09/28/2024 11:11 AM COMMERCIAL DRONE SOFTWARE DEVELOPER URINALYSIS AND REFLEX TO MICROSCOPIC AND CULTURE STAT 09/28/2024 7:53 AM COMMERCIAL DRONE SOFTWARE DEVELOPER URINALYSIS, MICROSCOPIC ONLY STAT 09/28/2024 7:53 AM COMMERCIAL DRONE SOFTWARE DEVELOPER URINE CULTURE Routine 09/28/2024 7:53 AM COMMERCIAL DRONE SOFTWARE DEVELOPER INFLUENZA A/B, RSV, AND COVID-19 PCR Routine 09/28/2024 1:08 AM COMMERCIAL DRONE SOFTWARE DEVELOPER CT ABDOMEN PELVIS W CONTRAST ED 09/27/2024 11:35 PM COMMERCIAL DRONE SOFTWARE DEVELOPER SEPSIS LACTATE WITH REFLEX Timed 09/27/2024 10:32 PM COMMERCIAL DRONE SOFTWARE DEVELOPER BLOOD CULTURE STAT 09/27/2024 10:32 PM COMMERCIAL DRONE SOFTWARE DEVELOPER XR CHEST 1 VIEW ED 09/27/2024 10:21 PM COMMERCIAL DRONE SOFTWARE DEVELOPER SEPSIS LACTATE WITH REFLEX STAT 09/27/2024 7:59 PM COMMERCIAL DRONE SOFTWARE DEVELOPER EGFR STAT 09/27/2024 7:59 PM COMMERCIAL DRONE SOFTWARE DEVELOPER DIFFERENTIAL AUTO STAT 09/27/2024 7:5 9 PM COMMERCIAL DRONE SOFTWARE DEVELOPER CBC WITH AUTO DIFFERENTIAL STAT 09/27/2024 7:59 PM COMMERCIAL DRONE SOFTWARE DEVELOPER BLOOD CULTURE STAT 09/27/2024 7:59 PM COMMERCIAL DRONE SOFTWARE DEVELOPER COMPREHENSIVE METABOLIC PANEL STAT 09/27/2024 7:59 PM COMMERCIAL DRONE SOFTWARE DEVELOPER documented in this encounter Results * (ABNORMAL) Comprehensive metabolic panel (10/08/2024 4:17 AM COMMERCIAL DRONE SOFTWARE DEVELOPER) Sodium 138 135 - 145 mmol/L Potassium, pl 4.5 3.3 - 4.9 mmol/L [facility] Chloride 105 97 - 110 mmol/L [facility] CO2 25 22 - 32 mmol/L [facility] Anion gap 8 2 - 15 mmol/L [facility] BUN 12 6 - 25 mg/dL [facility] Creatinine 0.53(L) 0.80 - 1.30 mg/dL [facility] Glucose 86 70 - 199 mg/dL [facility] Comment: Interpretive Data Fasting glucose >/= 126 [...] 2022. Calcium 8.5 8.5 - 10.3 mg/dL [facility] Bilirubin, total <0.2 0.1 - 1.2 mg/dL [facility] Protein, pl 6.8 6.5 - 8.5 g/dL [facility] Albumin 3.0(L) 3.5 - 5.0 g/dL [facility] Alk phos 87 40 - 130 Units/L [facility] ALT 9 7 - 55 Units/L [facility] AST 10 10 - 50 Units/L [facility] Blood 10/08/2024 4:17 AM COMMERCIAL DRONE SOFTWARE DEVELOPER 10/08/2024 4:48 AM COMMERCIAL DRONE SOFTWARE DEVELOPER Yoseph Golden MD LAB BLOOD ORDERABLES Final Resul t [facility] [place] [address] * eGFR (10/08/2024 4:17 AM COMMERCIAL [employer]ONE SOFTWARE DEVELOPER) eGFR >90 >=60 mL/min/1. 73 m2 Comment: [...] last reviewed 2021. Blood 10/08/2024 4:17 AM COMMERCIAL DRONE SOFTWARE DEVELOPER 10/08/2024 4:58 AM COMMERCIAL DRONE SOFTWARE DEVELOPER Yoseph Golden MD LAB BLOOD ORDERABLES Final Resul t [facility] [place] [address] * (ABNORMAL) Differential, auto (10/08/2024 4:17 AM COMMERCIAL DRONE SOFTWARE DEVELOPER) Neutrophil abs 7.1(H) 1.5 - 6.5 K/cumm Imm gran abs 0.2(H) 0.0 - 0.1 K/cumm [facility] Lymphocyte abs 2.7 0.8 - 3.3 K/cumm [facility] Monocyte abs 0.7 0.2 - 0.8 K/cumm [facility] Eosinophil abs 0.2 0.0 - 0.5 K/cumm [facility] Basophil abs 0.0 0.0 - 0.1 K/cumm [facility] Neutrophil pct 64.3 % [facility] Comment: Interpretive Data Percent cell count reference ranges are not reported, since discordance with absolute values may lead to misinterpretation of CBC data. Current Interpretive Data was last revised on 2018. Imm gran pct 1.9 % [facility] Comment: Interpretive Data Percent cell count reference ranges are not reported, since discordance with absolute values may lead to misinterpretation of CBC data. Current Interpretive Data was last revised on 2018. Lymphocyte pct 25.0 % [facility] Comment: Interpretive Data Percent cell count reference ranges are not reported, since discordance with absolute values may lead to misinterpretation of CBC data. Current Interpretive Data was last revised on 2018. Monocyte pct 6.5 % [facility] Comment: Interpretive Data Percent cell count reference ranges are not reported, since discordance with absolute values may lead to misinterpretation of CBC data. Current Interpretive Data was last revised on 2018. Eosinophil pct 1.9 % [facility] Comment: Interpretive Data Percent cell count reference ranges are not reported, since discordance with absolute values may lead to misinterpretation of CBC data. Current Interpretive Data was last revised on 2018. Basophil pct 0.4 % [facility] Comment: Interpretive Data Percent cell count reference ranges are not reported, since discordance with absolute values may lead to misinterpretation of CBC data. Current Interpretive Data was last revised on 2018. Blood 10/08/2024 4:17 AM COMMERCIAL [employer]ONE SOFTWARE DEVELOPER 10/08/2024 4:51 AM COMMERCIAL DRONE SOFTWARE DEVELOPER us Yoseph Golden MD LAB BLOOD ORDERABLES Final Resul t [facility] [place] [address] * (ABNORMAL) CBC with auto differential (10/08/2024 4:17 AM COMMERCIAL [employer]ONE SOFTWARE DEVELOPER) WBC 11.0(H) 3.8 - 9.9 K/cumm Hgb 7.7(L) 13.0 - 17.5 g/dL [facility] Hct 25.8(L) 38.9 - 50.3 % [facility] Plt 402(H) 150 - 400 K/cumm [facility] MPV 9.6 9.1 - 12.[address] [facility] RBC 3.46(L) 4.30 - 5.80 M/cumm [facility] MCV 74.6(L) 81.3 - 96.[address] [facility] MCH 22.3(L) 27.1 - 33.[address] [facility] MCHC 29.8(L) 32.3 - 35.7 g/dL [facility] RDW CV 20.4(H) 11.1 - 14.9 % [facility] RDW SD 50.9(H) 35.7 - 48.[address] [facility] NRBC abs 0.00 0.00 - 0.01 K/cumm [facility] Blood 10/08/2024 4:17 AM COMMERCIAL [employer]ONE SOFTWARE DEVELOPER 10/08/2024 4:51 AM COMMERCIAL DRONE SOFTWARE DEVELOPER Yoseph Golden MD LAB BLOOD ORDERABLES Final Resul t Performing Organization Address [facility] Co de Phone Number [facility] Department [place] [address] * Phosphorus (10/08/2024 4:17 AM COMMERCIAL DRONE SOFTWARE DEVELOPER) Phosphorus, pl 3.8 2.3 - 4.5 mg/dL Blood 10/08/2024 4:17 AM COMMERCIAL [employer]ONE SOFTWARE DEVELOPER 10/08/2024 4:48 AM COMMERCIAL [employer]ONE SOFTWARE DEVELOPER Kathia Ruiz MD LAB BLOOD ORDERABLES Jessica l Result Performing Organization Address [facility] Co de Phone Number [facility] Department [place] [address] * Magnesium (10/08/2024 4:17 AM COMMERCIAL [employer]ONE SOFTWARE DEVELOPER) Magnesium 2.0 1.4 - 2.5 mg/dL Blood 10/08/2024 4:17 AM COMMERCIAL [employer]ONE SOFTWARE DEVELOPER 10/08/2024 4:48 AM COMMERCIAL [employer]ONE SOFTWARE DEVELOPER Kathia Ruiz MD LAB BLOOD ORDERABLES Jessica l Result Performing Organization Address [facility] Co de Phone Number [facility] Department [place] [address] * XR Abdomen Ap 1 Vw (10/07/2024 4:10 PM COMMERCIAL [employer]ONE SOFTWARE DEVELOPER) Anatomical Region Laterality Modality Body, Abdomen N/A Computed Radiogr aphy 10/07/2024 4:30 PM COMMERCIAL [employer]ONE SOFTWARE DEVELOPER Impressions 10/07/2024 4:30 PM COMMERCIAL [employer]ONE SOFTWARE DEVELOPER A single view of the abdomen is submitted for evaluation. Large colorectal stool volume. No evidence of bowel obstruction. Cholecystectomy changes. Left intramedullary femoral nail. 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 Electronically signed by: Carlito Hancock M.D. Narrative 10/07/2024 4:30 PM COMMERCIAL [employer]ONE SOFTWARE DEVELOPER EXAMINATION: Abdomen, one view. HISTORY: Abdominal pain. [...] Final Result * eGFR (10/07/2024 3:16 AM COMMERCIAL [employer]ONE SOFTWARE DEVELOPER) eGFR >90 >=60 mL/min/1. 73 m2 Comment: [...] last reviewed 2021. Blood 10/07/2024 3:16 AM COMMERCIAL [employer]ONE SOFTWARE DEVELOPER 10/07/2024 3:31 AM COMMERCIAL [employer]ONE SOFTWARE DEVELOPER us Yoseph Golden MD LAB BLOOD ORDERABLES Final Resul t [facility] [place] [address] * (ABNORMAL) Differential, auto (10/07/2024 3:16 AM COMMERCIAL [employer]ONE SOFTWARE DEVELOPER) Neutrophil abs 5.6 1.5 - 6.5 K/cumm Imm gran abs 0.3(H) 0.0 - 0.1 K/cumm [facility] Lymphocyte abs 2.6 0.8 - 3.3 K/cumm [facility] Monocyte abs 0.8 0.2 - 0.8 K/cumm [facility] Eosinophil abs 0.2 0.0 - 0.5 K/cumm [facility] Basophil abs 0.0 0.0 - 0.1 K/cumm [facility] Neutrophil pct 58.9 % [facility] Comment: Interpretive Data Percent cell count reference ranges are not reported, since discordance with absolute values may lead to misinterpretation of CBC data. Current Interpretive Data was last revised on 2018. Imm gran pct 2.6 % [facility] Comment: Interpretive Data Percent cell count reference ranges are not reported, since discordance with absolute values may lead to misinterpretation of CBC data. Current Interpretive Data was last revised on 2018. Lymphocyte pct 27.7 % [facility] Comment: Interpretive Data Percent cell count reference ranges are not reported, since discordance with absolute values may lead to misinterpretation of CBC data. Current Interpretive Data was last revised on 2018. Monocyte pct 8.4 % [facility] Comment: Interpretive Data Percent cell count reference ranges are not reported, since discordance with absolute values may lead to misinterpretation of CBC data. Current Interpretive Data was last revised on 2018. Eosinophil pct 2.2 % [facility] Comment: Interpretive Data Percent cell count reference ranges are not reported, since discordance with absolute values may lead to misinterpretation of CBC data. Current Interpretive Data was last revised on 2018. Basophil pct 0.2 % [facility] Comment: Interpretive Data Percent cell count reference ranges are not reported, since discordance with absolute values may lead to misinterpretation of CBC data. Current Interpretive Data was last revised on 2018. Blood 10/07/2024 3:16 AM COMMERCIAL [employer]ONE SOFTWARE DEVELOPER 10/07/2024 3:31 AM COMMERCIAL [employer]ONE SOFTWARE DEVELOPER us Yoseph Golden MD LAB BLOOD ORDERABLES Final Resul t [facility] [place] [address] * (ABNORMAL) CBC with auto differential (10/07/2024 3:16 AM COMMERCIAL [employer]ONE SOFTWARE DEVELOPER) WBC 9.5 3.8 - 9.9 K/cumm Hgb 7.4(L) 13.0 - 17.5 g/dL [facility] Hct 24.6(L) 38.9 - 50.3 % [facility] Plt 400 150 - 400 K/cumm [facility] MPV 9.9 9.1 - 12.[address] [facility] RBC 3.33(L) 4.30 - 5.80 M/cumm [facility] MCV 73.9(L) 81.3 - 96.[address] [facility] MCH 22.2(L) 27.1 - 33.[address] [facility] MCHC 30.1(L) 32.3 - 35.7 g/dL [facility] RDW CV 19.8(H) 11.1 - 14.9 % [facility] RDW SD 49.8(H) 35.7 - 48.[address] [facility] NRBC abs 0.00 0.00 - 0.01 K/cumm [facility] Blood 10/07/2024 3:16 AM COMMERCIAL [employer]ONE SOFTWARE DEVELOPER 10/07/2024 3:31 AM COMMERCIAL [employer]ONE SOFTWARE DEVELOPER Yoseph Golden MD LAB BLOOD ORDERABLES Final Resul t [facility] [place] [address] * (ABNORMAL) Comprehensive metabolic panel (10/07/2024 3:16 AM COMMERCIAL [employer]ONE SOFTWARE DEVELOPER) Sodium 138 135 - 145 mmol/L Potassium, pl 4.3 3.3 - 4.9 mmol/L [facility] Chloride 106 97 - 110 mmol/L [facility] CO2 26 22 - 32 mmol/L [facility] Anion gap 6 2 - 15 mmol/L [facility] BUN 12 6 - 25 mg/dL [facility] Creatinine 0.52(L) 0.80 - 1.30 mg/dL [facility] Glucose 100 70 - 199 mg/dL [facility] Comment: Interpretive Data Fasting glucose [...] 2022. Calcium 8.4(L) 8.5 - 10.3 mg/dL [facility] Bilirubin, total <0.2 0.1 - 1.2 mg/dL [facility] Comment:Repeated and Verifie d Protein, pl 6.9 6.5 - 8.5 g/dL [facility] Albumin 2.6(L) 3.5 - 5.0 g/dL [facility] Alk phos 93 40 - 130 Units/L [facility] ALT 9 7 - 55 Units/L [facility] AST 11 10 - 50 Units/L [facility] Blood 10/07/2024 3:16 AM [employer] SOFTWARE DEVELOPER 10/07/2024 3:31 AM [employer] SOFTWARE DEVELOPER Yoseph Golden MD LAB BLOOD ORDERABLES Final Resul t [facility] [place] [address] * (ABNORMAL) Comprehensive metabolic panel (10/06/2024 6:15 AM [employer] SOFTWARE DEVELOPER) Sodium 141 135 - 145 mmol/L Potassium, pl 3.7 3.3 - 4.9 mmol/L [facility] Chloride 108 97 - 110 mmol/L [facility] CO2 25 22 - 32 mmol/L [facility] Anion gap 8 2 - 15 mmol/L [facility] BUN 12 6 - 25 mg/dL [facility] Creatinine 0.58(L) 0.80 - 1.30 mg/dL [facility] Glucose 88 70 - 199 mg/dL [facility] Comment: Interpretive Data Fasting glucose [...] 2022. Calcium 8.2(L) 8.5 - 10.3 mg/dL [facility] Bilirubin, total 0.2 0.1 - 1.2 mg/dL [facility] Comment:Reviewed Protein, pl 6.7 6.5 - 8.5 g/dL [facility] Albumin 3.0(L) 3.5 - 5.0 g/dL [facility] Alk phos 88 40 - 130 Units/L [facility] ALT 10 7 - 55 Units/L [facility] AST 5(L) 10 - 50 Units/L [facility] Blood 10/06/2024 6:15 AM [employer] SOFTWARE DEVELOPER 10/06/2024 7:05 AM [employer] SOFTWARE DEVELOPER Yoseph Golden MD LAB BLOOD ORDERABLES Final Resul t [facility] One [facility] [place] [address] * eGFR (10/06/2024 6:15 AM [employer] DEVELOPER) eGFR >90 >=60 mL/min/1. 73 m2 Comment: [...] last reviewed 2021. Blood 10/06/2024 6:15 AM [employer] SOFTWARE DEVELOPER 10/06/2024 7:05 AM [employer] SOFTWARE DEVELOPER us Yoseph Golden MD LAB BLOOD ORDERABLES Final Resul t [facility] One [facility] [place] [address] * (ABNORMAL) Differential, auto (10/06/2024 6:15 AM [employer] DEVELOPER) Neutrophil abs 6.5 1.5 - 6.5 K/cumm Imm gran abs 0.4(H) 0.0 - 0.1 K/cumm [facility] Lymphocyte abs 2.5 0.8 - 3.3 K/cumm [facility] Monocyte abs 1.2(H) 0.2 - 0.8 K/cumm [facility] Eosinophil abs 0.3 0.0 - 0.5 K/cumm [facility] Basophil abs 0.0 0.0 - 0.1 K/cumm [facility] Neutrophil pct 59.5 % [facility] Comment: Interpretive Data Percent cell count reference ranges are not reported, since discordance with absolute values may lead to misinterpretation of CBC data. Current Interpretive Data was last revised on 2018. Imm gran pct 4.0 % [facility] Comment: Interpretive Data Percent cell count reference ranges are not reported, since discordance with absolute values may lead to misinterpretation of CBC data. Current Interpretive Data was last revised on 2018. Lymphocyte pct 23.0 % [facility] Comment: Interpretive Data Percent cell count reference ranges are not reported, since discordance with absolute values may lead to misinterpretation of CBC data. Current Interpretive Data was last revised on 2018. Monocyte pct 10.6 % [facility] Comment: Interpretive Data Percent cell count reference ranges are not reported, since discordance with absolute values may lead to misinterpretation of CBC data. Current Interpretive Data was last revised on 2018. Eosinophil pct 2.5 % [facility] Comment: Interpretive Data Percent cell count reference ranges are not reported, since discordance with absolute values may lead to misinterpretation of CBC data. Current Interpretive Data was last revised on 2018. Basophil pct 0.4 % [facility] Comment: Interpretive Data Percent cell count reference ranges are not reported, since discordance with absolute values may lead to misinterpretation of CBC data. Current Interpretive Data was last revised on 2018. Blood 10/06/2024 6:15 AM [employer] SOFTWARE DEVELOPER 10/06/2024 7:01 AM [employer]ONE SOFTWARE DEVELOPER Yoseph Golden MD LAB BLOOD ORDERABLES Final Resul t Performing Organization Address [facility] de Phone Number [facility] [place] [address] * (ABNORMAL) CBC with auto differential (10/06/2024 6:15 AM [employer] SOFTWARE DEVELOPER) WBC 10.9(H) 3.8 - 9.9 K/cumm Hgb 7.4(L) 13.0 - 17.5 g/dL [facility] Hct 24.4(L) 38.9 - 50.3 % [facility] Plt 401(H) 150 - 400 K/cumm [facility] MPV 9.7 9.1 - 12.[address] [facility] RBC 3.31(L) 4.30 - 5.80 M/cumm [facility] MCV 73.7(L) 81.3 - 96.[address] [facility] MCH 22.4(L) 27.1 - 33.[address] [facility] MCHC 30.3(L) 32.3 - 35.7 g/dL [facility] RDW CV 19.7(H) 11.1 - 14.9 % [facility] RDW SD 49.0(H) 35.7 - 48.[address] [facility] NRBC abs 0.00 0.00 - 0.01 K/cumm [facility] Blood 10/06/2024 6:15 AM [employer] SOFTWARE DEVELOPER 10/06/2024 7:01 AM [employer] SOFTWARE DEVELOPER Yoseph Golden MD LAB BLOOD ORDERABLES Final Resul t Performing Organization Address City/[facility]/ZIP Co de Phone Number [facility] [place] [address] * Phosphorus (10/06/2024 6:15 AM [employer] SOFTWARE DEVELOPER) Pathologist [facility] Phosphorus, pl 3.9 2.3 - 4.5 mg/dL Blood 10/06/2024 6:15 AM [employer] SOFTWARE DEVELOPER 10/06/2024 7:05 AM [employer] SOFTWARE DEVELOPER Kathia Ruiz MD LAB BLOOD ORDERABLES Jessica l Result Performing Organization Address [facility] [place] [address] * Magnesium (10/06/2024 6:15 AM [employer] SOFTWARE DEVELOPER) [facility] Magnesium 2.0 1.4 - 2.5 mg/dL Blood 10/06/2024 6:15 AM [employer] SOFTWARE DEVELOPER 10/06/2024 7:05 AM [employer] SOFTWARE DEVELOPER Kathia Ruiz MD LAB BLOOD ORDERABLES Jessica l Result Performing Organization Address [facility] [place] [address] * Infection Prevention VRE Culture Stool (10/05/2024 9:43 PM [employer] SOFTWARE DEVELOPER) Pathologist [facility] Report Final Report: Negative Stool 10/05/2024 9:43 PM [employer] SOFTWARE DEVELOPER 10/06/2024 4:23 AM [employer]ER[employer] SOFTWARE DEVELOPER Narrative [facility] - 10/08/2024 7:57 AM [employer] SOFTWARE DEVELOPER Surveillance culture for Infection Prevention purposes only; results indicate colonization, not infection requiring treatment. Testing performed by [facility] ([phone]). Yoseph Golden MD LAB MICROBIOLOGY - GENERAL ORDER WHITNEY Final Result Performing Organization Address [facility] Co de Phone Number [facility] [place] [address] * C. difficile testing Stool (10/05/2024 9:43 PM [employer] SOFTWARE DEVELOPER) [facility] Result Negative Negative Toxin Result Negative Negative [facility] C. diff result Negative, free toxin Negative, free toxin [facility] C. diff interp Negative for toxigenic Clostridioides (Clostridium) difficile. Analysis was performed using a glutamate dehydrogenase antigen detection assay combined with a C. difficile toxin detection assay. [facility] Stool 10/05/2024 9:43 PM [employer] SOFTWARE DEVELOPER 10/05/2024 11:54 PM [employer] SOFTWARE DEVELOPER Yoseph Golden MD LAB MICROBIOLOGY - GENERAL ORDER WHITNEY Final Result Performing Organization Address City/State/[facility] Co de Phone Number [facility] [place] [address] * eGFR (10/05/2024 8:13 AM [employer] SOFTWARE DEVELOPER) [facility] eGFR >90 >=60 mL/min/1. 73 m2 Comment: [...] last reviewed 2021. Blood 10/05/2024 8:13 AM [employer] SOFTWARE DEVELOPER 10/05/2024 8:53 AM [employer] SOFTWARE DEVELOPER us Yoseph Golden MD LAB BLOOD ORDERABLES Final Resul t Performing Organization Address [facility] de Phone Number [facility] [place] [address] * Magnesium (10/05/2024 8:13 AM [employer] SOFTWARE DEVELOPER) [facility] Magnesium 2.1 1.4 - 2.5 mg/dL Blood 10/05/2024 8:13 AM [employer] SOFTWARE DEVELOPER 10/05/2024 8:39 AM [employer] SOFTWARE DEVELOPER us Yoseph Golden MD LAB BLOOD ORDERABLES Final Resul t Performing Organization Address [facility] de Phone Number [facility] [place] [address] * Phosphorus (10/05/2024 8:13 AM COMMER[employer] SOFTWARE DEVELOPER) [facility] Phosphorus, pl 3.8 2.3 - 4.5 mg/dL Blood 10/05/2024 8:13 AM [employer] SOFTWARE DEVELOPER 10/05/2024 8:39 AM COMMER[employer] SOFTWARE DEVELOPER us Yoseph Golden MD LAB BLOOD ORDERABLES Final Resul t Performing Organization Address [facility] [place] [address] * (ABNORMAL) Differential, auto (10/05/2024 8:13 AM [employer]ER[employer] SOFTWARE DEVELOPER) [facility] Neutrophil abs 6.4 1.5 - 6.5 K/cumm Imm gran abs 0.5(H) 0.0 - 0.1 K/cumm [facility] Lymphocyte abs 2.1 0.8 - 3.3 K/cumm [facility] Monocyte abs 1.1(H) 0.2 - 0.8 K/cumm [facility] Eosinophil abs 0.3 0.0 - 0.5 K/cumm [facility] Basophil abs 0.0 0.0 - 0.1 K/cumm [facility] Neutrophil pct 62.0 % [facility] Comment: Interpretive Data Percent cell count reference ranges are not reported, since discordance with absolute values may lead to misinterpretation of CBC data. Current Interpretive Data was last revised on 2018. Imm gran pct 4.3 % [facility] Comment: Interpretive Data Percent cell count reference ranges are not reported, since discordance with absolute values may lead to misinterpretation of CBC data. Current Interpretive Data was last revised on 2018. Lymphocyte pct 20.2 % [facility] Comment: Interpretive Data Percent cell count reference ranges are not reported, since discordance with absolute values may lead to misinterpretation of CBC data. Current Interpretive Data was last revised on 2018. Monocyte pct 10.7 % [facility] Comment: Interpretive Data Percent cell count reference ranges are not reported, since discordance with absolute values may lead to misinterpretation of CBC data. Current Interpretive Data was last revised on 2018. Eosinophil pct 2.5 % [facility] Comment: Interpretive Data Percent cell count reference ranges are not reported, since discordance with absolute values may lead to misinterpretation of CBC data. Current Interpretive Data was last revised on 2018. Basophil pct 0.3 % [facility] Comment: Interpretive Data Percent cell count reference ranges are not reported, since discordance with absolute values may lead to misinterpretation of CBC data. Current Interpretive Data was last revised on 2018. Blood 10/05/2024 8:13 AM COMMER[employer] SOFTWARE DEVELOPER 10/05/2024 8:52 AM [employer] SOFTWARE DEVELOPER us Yoseph Golden MD LAB BLOOD ORDERABLES Final Resul t [facility] One [facility] Department [place] [address] * (ABNORMAL) CBC with auto differential (10/05/2024 8:13 AM [employer]ER[employer] SOFTWARE DEVELOPER) [facility] WBC 10.4(H) 3.8 - 9.9 K/cumm Hgb 7.8(L) 13.0 - 17.5 g/dL [facility] Hct 25.9(L) 38.9 - 50.3 % [facility] Plt 423(H) 150 - 400 K/cumm [facility] MPV 9.8 9.1 - 12.[address] [facility] RBC 3.45(L) 4.30 - 5.80 M/cumm [facility] MCV 75.1(L) 81.3 - 96.[address] [facility] MCH 22.6(L) 27.1 - 33.[address] [facility] MCHC 30.1(L) 32.3 - 35.7 g/dL [facility] RDW CV 19.2(H) 11.1 - 14.9 % [facility] RDW SD 48.6(H) 35.7 - 48.[address] [facility] NRBC abs 0.00 0.00 - 0.01 K/cumm [facility] Blood 10/05/2024 8:13 AM COMMER[employer] SOFTWARE DEVELOPER 10/05/2024 8:52 AM [employer] SOFTWARE DEVELOPER us Yoseph Golden MD LAB BLOOD ORDERABLES Final Resul t [facility] One [facility] Department [place] [address] * (ABNORMAL) Comprehensive metabolic panel (10/05/2024 8:13 AM COMMER[employer] SOFTWARE DEVELOPER) [facility] Sodium 139 135 - 145 mmol/L Potassium, pl 4.1 3.3 - 4.9 mmol/L [facility] Chloride 109 97 - 110 mmol/L [facility] CO2 25 22 - 32 mmol/L [facility] Anion gap 5 2 - 15 mmol/L [facility] BUN 14 6 - 25 mg/dL [facility] Creatinine 0.54(L) 0.80 - 1.30 mg/dL [facility] Glucose 91 70 - 199 mg/dL [facility] Comment: Interpretive Data Fasting glucose [...] 2022. Calcium 8.4(L) 8.5 - 10.3 mg/dL [facility] Bilirubin, total <0.2 0.1 - 1.2 mg/dL [facility] Protein, pl 7.0 6.5 - 8.5 g/dL [facility] Albumin 2.6(L) 3.5 - 5.0 g/dL [facility] Alk phos 98 40 - 130 Units/L [facility] ALT 9 7 - 55 Units/L [facility] AST 10 10 - 50 Units/L [facility] Blood 10/05/2024 8:13 AM COMMER[employer] SOFTWARE DEVELOPER 10/05/2024 8:39 AM COMMER[employer]ONE SOFTWARE DEVELOPER Yoseph Golden MD LAB BLOOD ORDERABLES Final Resul t [facility] One [facility] [place] [address] * (ABNORMAL) Comprehensive metabolic panel (10/04/2024 6:24 AM COMMERCIAL [employer] SOFTWARE DEVELOPER) Pathologist [facility] Sodium 137 135 - 145 mmol/L Potassium, pl 3.9 3.3 - 4.9 mmol/L [facility] Chloride 109 97 - 110 mmol/L [facility] CO2 24 22 - 32 mmol/L [facility] Anion gap 4 2 - 15 mmol/L [facility] BUN 14 6 - 25 mg/dL [facility] Creatinine 0.56(L) 0.80 - 1.30 mg/dL [facility] Glucose 88 70 - 199 mg/dL [facility] Comment: Interpretive Data Fasting glucose [...] 2022. Calcium 8.2(L) 8.5 - 10.3 mg/dL [facility] Bilirubin, total <0.2 0.1 - 1.2 mg/dL [facility] Protein, pl 6.8 6.5 - 8.5 g/dL [facility] Albumin 2.6(L) 3.5 - 5.0 g/dL [facility] Alk phos 95 40 - 130 Units/L [facility] ALT 11 7 - 55 Units/L [facility] AST 11 10 - 50 Units/L [facility] Blood 10/04/2024 6:24 AM COMMER[employer] SOFTWARE DEVELOPER 10/04/2024 6:49 AM COMMER[employer]ONE SOFTWARE DEVELOPER Yoseph Golden MD LAB BLOOD ORDERABLES Final Resul t [facility] One [facility] [place] [address] * eGFR (10/04/2024 6:24 AM COMMER[employer] SOFTWARE DEVELOPER) eGFR >90 >=60 mL/min/1. 73 m2 Comment: [...] last reviewed 2021. Blood 10/04/2024 6:24 AM COMMER[employer] SOFTWARE DEVELOPER 10/04/2024 6:49 AM COMMERCIAL [employer]ONE SOFTWARE DEVELOPER Yoseph Golden MD LAB BLOOD ORDERABLES Final Resul t [facility] One [facility] [place] [address] * (ABNORMAL) Differential, auto (10/04/2024 6:24 AM COMMER[employer] SOFTWARE DEVELOPER) Neutrophil abs 7.0(H) 1.5 - 6.5 K/cumm Imm gran abs 0.5(H) 0.0 - 0.1 K/cumm [facility] Lymphocyte abs 2.2 0.8 - 3.3 K/cumm [facility] Monocyte abs 1.1(H) 0.2 - 0.8 K/cumm [facility] Eosinophil abs 0.4 0.0 - 0.5 K/cumm [facility] Basophil abs 0.0 0.0 - 0.1 K/cumm [facility] Neutrophil pct 62.8 % [facility] Comment: Interpretive Data Percent cell count reference ranges are not reported, since discordance with absolute values may lead to misinterpretation of CBC data. Current Interpretive Data was last revised on 2018. Imm gran pct 4.0 % [facility] Comment: Interpretive Data Percent cell count reference ranges are not reported, since discordance with absolute values may lead to misinterpretation of CBC data. Current Interpretive Data was last revised on 2018. Lymphocyte pct 19.4 % [facility] Comment: Interpretive Data Percent cell count reference ranges are not reported, since discordance with absolute values may lead to misinterpretation of CBC data. Current Interpretive Data was last revised on 2018. Monocyte pct 9.9 % [facility] Comment: Interpretive Data Percent cell count reference ranges are not reported, since discordance with absolute values may lead to misinterpretation of CBC data. Current Interpretive Data was last revised on 2018. Eosinophil pct 3.5 % [facility] Comment: Interpretive Data Percent cell count reference ranges are not reported, since discordance with absolute values may lead to misinterpretation of CBC data. Current Interpretive Data was last revised on 2018. Basophil pct 0.4 % [facility] Comment: Interpretive Data Percent cell count reference ranges are not reported, since discordance with absolute values may lead to misinterpretation of CBC data. Current Interpretive Data was last revised on 2018. Blood 10/04/2024 6:24 AM COMMER[employer] SOFTWARE DEVELOPER 10/04/2024 6:46 AM COMMERCIAL [employer]ONE SOFTWARE DEVELOPER us Yoseph Golden MD LAB BLOOD ORDERABLES Final Resul t [facility] One [facility] [place] [address] * (ABNORMAL) CBC with auto differential (10/04/2024 6:24 AM COMMER[employer] SOFTWARE DEVELOPER) WBC 11.1(H) 3.8 - 9.9 K/cumm Hgb 7.9(L) 13.0 - 17.5 g/dL [facility] Hct 26.2(L) 38.9 - 50.3 % [facility] Plt 435(H) 150 - 400 K/cumm [facility] MPV 10.3 9.1 - 12.[address] [facility] RBC 3.56(L) 4.30 - 5.80 M/cumm [facility] MCV 73.6(L) 81.3 - 96.[address] [facility] MCH 22.2(L) 27.1 - 33.[address] [facility] MCHC 30.2(L) 32.3 - 35.7 g/dL [facility] RDW CV 18.8(H) 11.1 - 14.9 % [facility] RDW SD 47.9 35.7 - 48.[address] [facility] NRBC abs 0.00 0.00 - 0.01 K/cumm [facility] Blood 10/04/2024 6:24 AM COMMER[employer] SOFTWARE DEVELOPER 10/04/2024 6:46 AM COMMERCIAL [employer] SOFTWARE DEVELOPER Yoseph Golden MD LAB BLOOD ORDERABLES Final Resul t Performing Organization Address City/[facility] Co de Phone Number [facility] [place] [address] * Phosphorus (10/04/2024 6:24 AM COMMERCIAL [employer] SOFTWARE DEVELOPER) Phosphorus, pl 3.4 2.3 - 4.5 mg/dL Blood 10/04/2024 6:24 AM COMMER[employer] SOFTWARE DEVELOPER 10/04/2024 6:49 AM COMMERCIAL [employer]ONE SOFTWARE DEVELOPER Kathia Ruiz MD LAB BLOOD ORDERABLES Jessica l Result Performing Organization Address [facility] Co de Phone Number [facility] [place] [address] * Magnesium (10/04/2024 6:24 AM COMMERCIAL [employer] SOFTWARE DEVELOPER) Magnesium 2.1 1.4 - 2.5 mg/dL Blood 10/04/2024 6:24 AM COMMERCIAL [employer] SOFTWARE DEVELOPER 10/04/2024 6:49 AM COMMERCIAL [employer]ONE SOFTWARE DEVELOPER Kathia Ruiz MD LAB BLOOD ORDERABLES Jessica l Result Performing Organization Address City/[facility] Co de Phone Number [facility] [place] [address] * (ABNORMAL) Comprehensive metabolic panel (10/03/2024 5:42 AM COMMERCIAL [employer] SOFTWARE DEVELOPER) Sodium 138 135 - 145 mmol/L Potassium, pl 4.0 3.3 - 4.9 mmol/L [facility] Chloride 109 97 - 110 mmol/L [facility] CO2 23 22 - 32 mmol/L [facility] Anion gap 6 2 - 15 mmol/L [facility] BUN 13 6 - 25 mg/dL [facility] Creatinine 0.58(L) 0.80 - 1.30 mg/dL [facility] Glucose 87 70 - 199 mg/dL [facility] Comment: Interpretive Data Fasting glucose [...] 2022. Calcium 8.2(L) 8.5 - 10.3 mg/dL [facility] Bilirubin, total <0.2 0.1 - 1.2 mg/dL [facility] Protein, pl 6.8 6.5 - 8.5 g/dL [facility] Albumin 2.6(L) 3.5 - 5.0 g/dL [facility] Alk phos 97 40 - 130 Units/L [facility] ALT 19 7 - 55 Units/L [facility] AST 18 10 - 50 Units/L [facility] Blood 10/03/2024 5:42 AM [employer]ER[employer] SOFTWARE DEVELOPER 10/03/2024 6:29 AM COMMER[employer]ONE SOFTWARE DEVELOPER us Yoseph Golden MD LAB BLOOD ORDERABLES Final Resul t [facility] One [facility] [place] [address] * eGFR (10/03/2024 5:42 AM [employer]CIAL [employer] SOFTWARE DEVELOPER) eGFR >90 >=60 mL/min/1. 73 m2 Comment: [...] last reviewed 2021. Blood 10/03/2024 5:42 AM COMMERCIAL [employer]ONE SOFTWARE DEVELOPER 10/03/2024 6:39 AM COMMERCIAL [employer]ONE SOFTWARE DEVELOPER us Yoseph Golden MD LAB BLOOD ORDERABLES Final Resul t [facility] One [facility] [place] [address] * (ABNORMAL) Differential, auto (10/03/2024 5:42 AM COMMERCIAL [employer] SOFTWARE DEVELOPER) Neutrophil abs 7.7(H) 1.5 - 6.5 K/cumm Imm gran abs 0.6(H) 0.0 - 0.1 K/cumm [facility] [place] Lymphocyte abs 2.3 0.8 - 3.3 K/cumm [facility] Monocyte abs 1.1(H) 0.2 - 0.8 K/cumm [facility] Eosinophil abs 0.4 0.0 - 0.5 K/cumm [facility] Basophil abs 0.0 0.0 - 0.1 K/cumm [facility] Neutrophil pct 63.6 % [facility] Comment: Interpretive Data Percent cell count reference ranges are not reported, since discordance with absolute values may lead to misinterpretation of CBC data. Current Interpretive Data was last revised on 2018. Imm gran pct 5.2 % [facility] Comment: Interpretive Data Percent cell count reference ranges are not reported, since discordance with absolute values may lead to misinterpretation of CBC data. Current Interpretive Data was last revised on 2018. Lymphocyte pct 19.2 % [facility] Comment: Interpretive Data Percent cell count reference ranges are not reported, since discordance with absolute values may lead to misinterpretation of CBC data. Current Interpretive Data was last revised on 2018. Monocyte pct 8.8 % [facility] Comment: Interpretive Data Percent cell count reference ranges are not reported, since discordance with absolute values may lead to misinterpretation of CBC data. Current Interpretive Data was last revised on 2018. Eosinophil pct 3.0 % [facility] Comment: Interpretive Data Percent cell count reference ranges are not reported, since discordance with absolute values may lead to misinterpretation of CBC data. Current Interpretive Data was last revised on 2018. Basophil pct 0.2 % [facility] Comment: Interpretive Data Percent cell count reference ranges are not reported, since discordance with absolute values may lead to misinterpretation of CBC data. Current Interpretive Data was last revised on 2018. Blood 10/03/2024 5:42 AM COMMERCIAL [employer]ONE SOFTWARE DEVELOPER 10/03/2024 6:18 AM COMMERCIAL [employer]ONE SOFTWARE DEVELOPER us Yoseph Golden MD LAB BLOOD ORDERABLES Final Resul t [facility] One [facility] [place] [address] * (ABNORMAL) CBC with auto differential (10/03/2024 5:42 AM COMMERCIAL [employer]ONE SOFTWARE DEVELOPER) [facility] WBC 12.1(H) 3.8 - 9.9 K/cumm Hgb 7.8(L) 13.0 - 17.5 g/dL [facility] Hct 25.7(L) 38.9 - 50.3 % [facility] Plt 439(H) 150 - 400 K/cumm [facility] MPV 10.5 9.1 - 12.[address] [facility] RBC 3.45(L) 4.30 - 5.80 M/cumm [facility] MCV 74.5(L) 81.3 - 96.[address] [facility] MCH 22.6(L) 27.1 - 33.[address] [facility] MCHC 30.4(L) 32.3 - 35.7 g/dL [facility] RDW CV 18.4(H) 11.1 - 14.9 % [facility] RDW SD 47.9 35.7 - 48.[address] [facility] NRBC abs 0.00 0.00 - 0.01 K/cumm [facility] Blood 10/03/2024 5:42 AM COMMERCIAL [employer] SOFTWARE DEVELOPER 10/03/2024 6:18 AM COMMERCIAL [employer]ONE SOFTWARE DEVELOPER us Yoseph Golden MD LAB BLOOD ORDERABLES Final Resul t Performing Organization Address City/[facility] Co de Phone Number [facility] [place] [address] * Phosphorus (10/03/2024 5:42 AM COMMERCIAL [employer] SOFTWARE DEVELOPER) [facility] Phosphorus, pl 3.2 2.3 - 4.5 mg/dL Blood 10/03/2024 5:42 AM [employer] SOFTWARE DEVELOPER 10/03/2024 6:29 AM COMMERCIAL [employer]ONE SOFTWARE DEVELOPER us Kathia Ruiz MD LAB BLOOD ORDERABLES Jessica l Result [facility] [place] [address] * Magnesium (10/03/2024 5:42 AM COMMERCIAL [employer] SOFTWARE DEVELOPER) Pathologist [facility] Magnesium 2.1 1.4 - 2.5 mg/dL Blood 10/03/2024 5:42 AM COMMERCIAL [employer] SOFTWARE DEVELOPER 10/03/2024 6:29 AM COMMERCIAL [employer]ONE SOFTWARE DEVELOPER Kathia Ruiz MD LAB BLOOD ORDERABLES Jessica l Result Performing Organization Address [facility] Co de Phone Number [facility] [place] [address] * (ABNORMAL) Prealbumin (10/03/2024 5:42 AM COMMERCIAL [employer] SOFTWARE DEVELOPER) [facility] Prealbumin 14.0(L) 20.0 - 40.0 mg/dL Blood 10/03/2024 5:42 AM COMMERCIAL [employer] SOFTWARE DEVELOPER 10/03/2024 6:18 AM COMMERCIAL [employer]ONE SOFTWARE DEVELOPER Yoseph Golden MD LAB BLOOD ORDERABLES Final Resul t Performing Organization Address [facility] [place] [address] * Magnesium (10/02/2024 2:24 AM COMMERCIAL [employer] SOFTWARE DEVELOPER) [facility] Magnesium 1.9 1.4 - 2.5 mg/dL Blood 10/02/2024 2:24 AM COMMER[employer] SOFTWARE DEVELOPER 10/02/2024 3:49 AM COMMERCIAL [employer]ONE SOFTWARE DEVELOPER Kathia Ruiz MD LAB BLOOD ORDERABLES Jessica l Result Performing Organization Address [facility] [place] [address] * eGFR (10/02/2024 2:24 AM COMMER[employer] SOFTWARE DEVELOPER) [facility] eGFR >90 >=60 mL/min/1. 73 m2 Comment: [...] last reviewed 2021. Blood 10/02/2024 2:24 AM COMMER[employer] SOFTWARE DEVELOPER 10/02/2024 3:49 AM COMMERCIAL [employer]ONE SOFTWARE DEVELOPER us Kathia Ruiz MD LAB BLOOD ORDERABLES Jessica cruz Result Performing Organization Address City/State/[facility] Co de Phone Number [facility] One [facility] [place] [address] * (ABNORMAL) Differential, auto (10/02/2024 2:24 AM COMMER[employer] SOFTWARE DEVELOPER) Pathologist [facility] Neutrophil abs 6.4 1.5 - 6.5 K/cumm Imm gran abs 0.5(H) 0.0 - 0.1 K/cumm [facility] Lymphocyte abs 2.3 0.8 - 3.3 K/cumm [facility] Monocyte abs 0.6 0.2 - 0.8 K/cumm [facility] Eosinophil abs 0.2 0.0 - 0.5 K/cumm [facility] Basophil abs 0.0 0.0 - 0.1 K/cumm [facility] Neutrophil pct 63.5 % [facility] Comment: Interpretive Data Percent cell count reference ranges are not reported, since discordance with absolute values may lead to misinterpretation of CBC data. Current Interpretive Data was last revised on 2018. Imm gran pct 4.7 % [facility] Comment: Interpretive Data Percent cell count reference ranges are not reported, since discordance with absolute values may lead to misinterpretation of CBC data. Current Interpretive Data was last revised on 2018. Lymphocyte pct 22.9 % [facility] Comment: Interpretive Data Percent cell count reference ranges are not reported, since discordance with absolute values may lead to misinterpretation of CBC data. Current Interpretive Data was last revised on 2018. Monocyte pct 6.2 % [facility] Comment: Interpretive Data Percent cell count reference ranges are not reported, since discordance with absolute values may lead to misinterpretation of CBC data. Current Interpretive Data was last revised on 2018. Eosinophil pct 2.4 % [facility] Comment: Interpretive Data Percent cell count reference ranges are not reported, since discordance with absolute values may lead to misinterpretation of CBC data. Current Interpretive Data was last revised on 2018. Basophil pct 0.3 % [facility] Comment: Interpretive Data Percent cell count reference ranges are not reported, since discordance with absolute values may lead to misinterpretation of CBC data. Current Interpretive Data was last revised on 2018. Blood 10/02/2024 2:24 AM COMMERCIAL [employer] SOFTWARE DEVELOPER 10/02/2024 3:49 AM COMMERCIAL [employer]ONE SOFTWARE DEVELOPER us Kathia Ruiz MD LAB BLOOD ORDERABLES Jessica cruz Result [facility] One [facility] [place] [address] * (ABNORMAL) CBC with auto differential (10/02/2024 2:24 AM COMMER[employer] SOFTWARE DEVELOPER) WBC 10.1(H) 3.8 - 9.9 K/cumm Hgb 7.7(L) 13.0 - 17.5 g/dL [facility] Hct 26.3(L) 38.9 - 50.3 % [facility] Plt 419(H) 150 - 400 K/cumm [facility] MPV 10.6 9.1 - 12.[address] [facility] RBC 3.58(L) 4.30 - 5.80 M/cumm [facility] MCV 73.5(L) 81.3 - 96.[address] [facility] MCH 21.5(L) 27.1 - 33.[address] [facility] MCHC 29.3(L) 32.3 - 35.7 g/dL [facility] RDW CV 18.0(H) 11.1 - 14.9 % [facility] RDW SD 47.5 35.7 - 48.[address] [facility] NRBC abs 0.00 0.00 - 0.01 K/cumm [facility] Blood 10/02/2024 2:2 4 AM COMMERCIAL [employer] SOFTWARE DEVELOPER 10/02/2024 3:49 AM COMMERCIAL [employer]ONE SOFTWARE DEVELOPER Kathia Ruiz MD LAB BLOOD ORDERABLES Jessica cruz Result [facility] One [facility] [place] [address] * (ABNORMAL) Basic metabolic panel (10/02/2024 2:24 AM COMMERCIAL [employer] SOFTWARE DEVELOPER) Pathologist [facility] Sodium 134(L) 135 - 145 mmol/L Potassium, pl 3.8 3.3 - 4.9 mmol/L [facility] Chloride 107 97 - 110 mmol/L [facility] CO2 23 22 - 32 mmol/L [facility] Anion gap 4 2 - 15 mmol/L [facility] BUN 9 6 - 25 mg/dL [facility] Creatinine 0.65(L) 0.80 - 1.30 mg/dL [facility] Glucose 121 70 - 199 mg/dL [facility] Comment: Interpretive Data Fasting glucose [...] 2022. Calcium 7.8(L) 8.5 - 10.3 mg/dL [facility] Blood 10/02/2024 2:24 AM COMMERCIAL [employer]ONE SOFTWARE DEVELOPER 10/02/2024 3:49 AM COMMERCIAL [employer]ONE SOFTWARE DEVELOPER us Kathia Ruiz MD LAB BLOOD ORDERABLES Jessica cruz Result [facility] One [facility] [place] [address] * eGFR (10/01/2024 2:22 AM COMMER[employer] SOFTWARE DEVELOPER) eGFR >90 >=60 mL/min/1. 73 m2 Comment: [...] last reviewed 2021. Blood 10/01/2024 2:22 AM COMMERCIAL [employer] SOFTWARE DEVELOPER 10/01/2024 2:49 AM COMMERCIAL [employer]ONE SOFTWARE DEVELOPER us Kathia Ruiz MD LAB BLOOD ORDERABLES Jessica cruz Result [facility] One [facility] [place] [address] * (ABNORMAL) Differential, auto (10/01/2024 2:22 AM COMMERCIAL [employer] SOFTWARE DEVELOPER) Neutrophil abs 7.5(H) 1.5 - 6.5 K/cumm Imm gran abs 0.5(H) 0.0 - 0.1 K/cumm [facility] Lymphocyte abs 2.1 0.8 - 3.3 K/cumm [facility] Monocyte abs 0.8 0.2 - 0.8 K/cumm [facility] Eosinophil abs 0.2 0.0 - 0.5 K/cumm [facility] Basophil abs 0.0 0.0 - 0.1 K/cumm [facility] Neutrophil pct 67.6 % [facility] Comment: Interpretive Data Percent cell count reference ranges are not reported, since discordance with absolute values may lead to misinterpretation of CBC data. Current Interpretive Data was last revised on 2018. Imm gran pct 4.1 % [facility] Comment: Interpretive Data Percent cell count reference ranges are not reported, since discordance with absolute values may lead to misinterpretation of CBC data. Current Interpretive Data was last revised on 2018. Lymphocyte pct 19.2 % [facility] Comment: Interpretive Data Percent cell count reference ranges are not reported, since discordance with absolute values may lead to misinterpretation of CBC data. Current Interpretive Data was last revised on 2018. Monocyte pct 7.0 % [facility] Comment: Interpretive Data Percent cell count reference ranges are not reported, since discordance with absolute values may lead to misinterpretation of CBC data. Current Interpretive Data was last revised on 2018. Eosinophil pct 1.8 % [facility] Comment: Interpretive Data Percent cell count reference ranges are not reported, since discordance with absolute values may lead to misinterpretation of CBC data. Current Interpretive Data was last revised on 2018. Basophil pct 0.3 % [facility] Comment: Interpretive Data Percent cell count reference ranges are not reported, since discordance with absolute values may lead to misinterpretation of CBC data. Current Interpretive Data was last revised on 2018. Blood 10/01/2024 2:22 AM COMMERCIAL [employer] SOFTWARE DEVELOPER 10/01/2024 2:49 AM COMMERCIAL [employer]ONE SOFTWARE DEVELOPER Kathia Ruiz MD LAB BLOOD ORDERABLES Jessica l Result Performing Organization Address [facility] de Phone Number [facility] [place] [address] * (ABNORMAL) Protime-INR (10/01/2024 2:22 AM COMMERCIAL [employer]ONE SOFTWARE DEVELOPER) PT 15.9(H) 9.7 - 13.0 sec INR 1.46(H) 0.90 - 1.20 [facility] Comment: Interpretive data Oral anticoagulant therapeutic ranges: Venous thromboembolism prophylaxis or treatment: 2.0-3.0 CARDIOLOGY Standard range: 2.0-3.0 High-intensity range: 2.5-3.5 Refer to indication-specific guidelines for appropriate target ranges for prosthetic heart valve replacement. Current interpretive data was last revised on 2019. Blood 10/01/2024 2:22 AM COMMERCIAL [employer]ONE SOFTWARE DEVELOPER 10/01/2024 2:54 AM COMMERCIAL [employer]ONE SOFTWARE DEVELOPER Kathia Ruiz MD LAB BLOOD ORDERABLES Jessica l Result Performing Organization Address [facility] Co de Phone Number [facility] [place] [address] * (ABNORMAL) CBC with auto differential (10/01/2024 2:22 AM COMMERCIAL [employer]ONE SOFTWARE DEVELOPER) [facility] WBC 11.1(H) 3.8 - 9.9 K/cumm Hgb 8.0(L) 13.0 - 17.5 g/dL [facility] Hct 26.7(L) 38.9 - 50.3 % [facility] Plt 434(H) 150 - 400 K/cumm [facility] MPV 10.7 9.1 - 12.[address] [facility] RBC 3.65(L) 4.30 - 5.80 M/cumm [facility] MCV 73.2(L) 81.3 - 96.[address] [facility] MCH 21.9(L) 27.1 - 33.[address] [facility] MCHC 30.0(L) 32.3 - 35.7 g/dL [facility] RDW CV 17.4(H) 11.1 - 14.9 % [facility] RDW SD 46.3 35.7 - 48.[address] [facility] NRBC abs 0.00 0.00 - 0.01 K/cumm [facility] Blood 10/01/2024 2:22 AM COMMERCIAL [employer]ONE SOFTWARE DEVELOPER 10/01/2024 2:49 AM COMMERCIAL [employer]ONE SOFTWARE DEVELOPER Kathia Ruiz MD LAB BLOOD ORDERABLES Jessica cruz Result [facility] One [facility] [place] [address] * (ABNORMAL) Basic metabolic panel (10/01/2024 2:22 AM COMMERCIAL [employer]ONE SOFTWARE DEVELOPER) [facility] Sodium 136 135 - 145 mmol/L Potassium, pl 3.4 3.3 - 4.9 mmol/L [facility] Chloride 105 97 - 110 mmol/L [facility] CO2 23 22 - 32 mmol/L [facility] Anion gap 8 2 - 15 mmol/L [facility] BUN 8 6 - 25 mg/dL [facility] Creatinine 0.70(L) 0.80 - 1.30 mg/dL [facility] Glucose 105 70 - 199 mg/dL [facility] Comment: Interpretive Data Fasting glucose [...] 2022. Calcium 8.0(L) 8.5 - 10.3 mg/dL [facility] Blood 10/01/2024 2:22 AM COMMERCIAL [employer]ONE SOFTWARE DEVELOPER 10/01/2024 2:49 AM COMMERCIAL [employer]ONE SOFTWARE DEVELOPER Kathia Ruiz MD LAB BLOOD ORDERABLES Jessica l Result Performing Organization Address [facility] de Phone Number [facility] [place] [address] * (ABNORMAL) aPTT (10/01/2024 2:22 AM COMMERCIAL [employer]ONE SOFTWARE DEVELOPER) Pathologist [facility] aPTT 39(H) 28 - 38 sec Comment: Interpretive Data Heparin therapeutic range: 66.0 - 100.0 seconds. Range based on correlation with therapeutic heparin activity range of 0.3 - 0.7 Units/mL. Current interpretive data was last revised on 2023. Blood 10/01/2024 2:22 AM COMMERCIAL [employer]ONE SOFTWARE DEVELOPER 10/01/2024 2:54 AM COMMERCIAL [employer]ONE SOFTWARE DEVELOPER Kathia Ruiz MD LAB BLOOD ORDERABLES Jessica l Result Performing Organization Address [facility] Co de Phone Number [facility] [place] [address] * eGFR (09/29/2024 4:17 PM COMMERCIAL [employer]ONE SOFTWARE DEVELOPER) [facility] eGFR >90 >=60 mL/min/1. 73 m2 Comment: [...] last reviewed 2021. Blood 09/29/2024 4:17 PM COMMERCIAL [employer]ONE SOFTWARE DEVELOPER 09/29/2024 4:57 PM COMMERCIAL [employer]ONE SOFTWARE DEVELOPER us Kathia Ruiz MD LAB BLOOD ORDERABLES Jessica cruz Result [facility] One [facility] [place] [address] * (ABNORMAL) Differential, auto (09/29/2024 4:17 PM COMMERCIAL [employer]ONE SOFTWARE DEVELOPER) Pathologist [facility] Neutrophil abs 8.2(H) 1.5 - 6.5 K/cumm Imm gran abs 0.1 0.0 - 0.1 K/cumm [facility] Lymphocyte abs 0.8 0.8 - 3.3 K/cumm [facility] Monocyte abs 0.3 0.2 - 0.8 K/cumm [facility] Eosinophil abs 0.1 0.0 - 0.5 K/cumm [facility] Basophil abs 0.0 0.0 - 0.1 K/cumm [facility] Neutrophil pct 86.8 % [facility] Comment: Interpretive Data Percent cell count reference ranges are not reported, since discordance with absolute values may lead to misinterpretation of CBC data. Current Interpretive Data was last revised on 2018. Imm gran pct 1.2 % [facility] Comment: Interpretive Data Percent cell count reference ranges are not reported, since discordance with absolute values may lead to misinterpretation of CBC data. Current Interpretive Data was last revised on 2018. Lymphocyte pct 8.0 % [facility] Comment: Interpretive Data Percent cell count reference ranges are not reported, since discordance with absolute values may lead to misinterpretation of CBC data. Current Interpretive Data was last revised on 2018. Monocyte pct 2.6 % [facility] Comment: Interpretive Data Percent cell count reference ranges are not reported, since discordance with absolute values may lead to misinterpretation of CBC data. Current Interpretive Data was last revised on 2018. Eosinophil pct 1.3 % [facility] Comment: Interpretive Data Percent cell count reference ranges are not reported, since discordance with absolute values may lead to misinterpretation of CBC data. Current Interpretive Data was last revised on 2018. Basophil pct 0.1 % [facility] Comment: Interpretive Data Percent cell count reference ranges are not reported, since discordance with absolute values may lead to misinterpretation of CBC data. Current Interpretive Data was last revised on 2018. Blood 09/29/2024 4:17 PM COMMERCIAL [employer] SOFTWARE DEVELOPER 09/29/2024 4:57 PM COMMERCIAL [employer]ONE SOFTWARE DEVELOPER us Kathia Ruiz MD LAB BLOOD ORDERABLES Jessica cruz Result [facility] [place] [address] * (ABNORMAL) Protime-INR (09/29/2024 4:17 PM COMMERCIAL [employer] SOFTWARE DEVELOPER) PT 16.1(H) 9.7 - 13.0 sec INR 1.48(H) 0.90 - 1.[address] [facility] Comment: Interpretive data Oral anticoagulant therapeutic ranges: Venous thromboembolism prophylaxis or treatment: 2.0-3.0 CARDIOLOGY Standard range: 2.0-3.0 High-intensity range: 2.5-3.5 Refer to indication-specific guidelines for appropriate target ranges for prosthetic heart valve replacement. Current interpretive data was last revised on 2019. Blood 09/29/2024 4:17 PM COMMERCIAL [employer]ONE SOFTWARE DEVELOPER 09/29/2024 4:53 PM COMMERCIAL [employer]ONE SOFTWARE DEVELOPER us Kathia Ruiz MD LAB BLOOD ORDERABLES Jessica cruz Result [facility] One [facility] [place] [address] * (ABNORMAL) CBC with auto differential (09/29/2024 4:17 PM COMMERCIAL [employer]ONE SOFTWARE DEVELOPER) [facility] WBC 9.5 3.8 - 9.9 K/cumm Hgb 9.5(L) 13.0 - 17.5 g/dL [facility] Hct 31.3(L) 38.9 - 50.3 % [facility] Plt 357 150 - 400 K/cumm [facility] MPV 10.7 9.1 - 12.[address] [facility] RBC 4.30 4.30 - 5.80 M/cumm [facility] MCV 72.8(L) 81.3 - 96.[address] [facility] MCH 22.1(L) 27.1 - 33.[address] [facility] MCHC 30.4(L) 32.3 - 35.7 g/dL [facility] RDW CV 17.3(H) 11.1 - 14.9 % [facility] RDW SD 45.9 35.7 - 48.[address] [facility] NRBC abs 0.00 0.00 - 0.01 K/cumm [facility] Blood 09/29/2024 4:17 PM COMMERCIAL [employer] SOFTWARE DEVELOPER 09/29/2024 4:57 PM COMMERCIAL [employer]ONE SOFTWARE DEVELOPER Kathia Ruiz MD LAB BLOOD ORDERABLES Jessica l Result Performing Organization Address City/[facility]/ZIP Co de Phone Number [facility] [place] [address] * (ABNORMAL) Basic metabolic panel (09/29/2024 4:17 PM COMMERCIAL [employer]ONE SOFTWARE DEVELOPER) [facility] Sodium 138 135 - 145 mmol/L Potassium, pl 3.5 3.3 - 4.9 mmol/L [facility] Chloride 105 97 - 110 mmol/L [facility] CO2 20(L) 22 - 32 mmol/L [facility] Anion gap 13 2 - 15 mmol/L [facility] BUN 10 6 - 25 mg/dL [facility] Creatinine 0.67(L) 0.80 - 1.30 mg/dL [facility] Glucose 104 70 - 199 mg/dL [facility] Comment: Interpretive Data Fasting glucose [...] 2022. Calcium 8.1(L) 8.5 - 10.3 mg/dL [facility] Blood 09/29/2024 4:17 PM [employer]CIAL [employer]ONE SOFTWARE DEVELOPER 09/29/2024 4:57 PM COMMERCIAL [employer]ONE SOFTWARE DEVELOPER Kathia Ruiz MD LAB BLOOD ORDERABLES Jessica l Result Performing Organization Address [facility]/ZIP Co de Phone Number [facility] [place] [address] * (ABNORMAL) aPTT (09/29/2024 4:17 PM COMMERCIAL [employer]ONE SOFTWARE DEVELOPER) [facility] aPTT 43(H) 28 - 38 sec Comment: Interpretive Data Heparin therapeutic range: 66.0 - 100.0 seconds. Range based on correlation with therapeutic heparin activity range of 0.3 - 0.7 Units/mL. Current interpretive data was last revised on 2023. Blood 09/29/2024 4:17 PM [employer]CIAL [employer] SOFTWARE DEVELOPER 09/29/2024 4:53 PM COMMERCIAL [employer]ONE SOFTWARE DEVELOPER Kathia Ruiz MD LAB BLOOD ORDERABLES Jessica l Result Performing Organization Address City/[facility] Co de Phone Number [facility] [place] [address] * (ABNORMAL) Reticulocyte Count (09/29/2024 4:17 PM COMMERCIAL [employer]ONE SOFTWARE DEVELOPER) [facility] Retics, absolute 0.055 0.020 - 0.087 M/cumm Retics 1.6 0.4 - 2.9 % [facility] Reticulocyte Hgb 20.9(L) 30.5 - 38.[address] [facility] Blood 09/29/2024 4:17 PM [employer] SOFTWARE DEVELOPER 09/29/2024 4:57 PM COMMERCIAL [employer]ONE SOFTWARE DEVELOPER Kathia Ruiz MD LAB BLOOD ORDERABLES Jessica l Result Performing Organization Address [facility] Co de Phone Number [facility] [place] [address] * Vitamin B12 (09/29/2024 4:17 PM COMMERCIAL [employer] SOFTWARE DEVELOPER) [facility] Vitamin B12 656 230 - 1,250 pg/mL Blood 09/29/2024 4:17 PM COMMERCIAL [employer] SOFTWARE DEVELOPER 09/29/2024 4:57 PM COMMERCIAL [employer]ONE SOFTWARE DEVELOPER Kathia Ruiz MD LAB BLOOD ORDERABLES Jessica l Result Performing Organization Address City/[facility] Co de Phone Number [facility] [place] [address] * (ABNORMAL) Folate (09/29/2024 4:17 PM COMMERCIAL [employer]ONE SOFTWARE DEVELOPER) Folic acid 3.9(L) >=5.0 ng/mL Blood 09/29/2024 4:17 PM COMMERCIAL [employer]ONE SOFTWARE DEVELOPER 09/29/2024 4:57 PM COMMERCIAL [employer]ONE SOFTWARE DEVELOPER Kathia Ruiz MD LAB BLOOD ORDERAB[place] [address] * (ABNORMAL) Ferritin (09/29/2024 4:17 PM COMMERCIAL [employer]ONE SOFTWARE DEVELOPER) Pathologist [facility] Ferritin 649(H) 30 - 400 ng/mL Blood 09/29/2024 4:17 PM COMMERCIAL [employer] SOFTWARE DEVELOPER 09/29/2024 4:57 PM COMMERCIAL [employer]ONE SOFTWARE DEVELOPER Kathia Ruiz MD LAB BLOOD ORDERABLES Jessica l Result Performing Organization Address [facility] [place] [address] * Mycology (fungal) culture Tissue Sacral (09/29/2024 12:37 PM COMMERCIAL [employer] SOFTWARE DEVELOPER) Report Final Report: No growth of fungus Tissue (Sacral) 09/29/2024 1 2:37 PM COMMERCIAL [employer]ONE SOFTWARE DEVELOPER 09/29/2024 2:15 PM COMMERCIAL [employer]ONE SOFTWARE DEVELOPER Narrative [facility] - 10/27/2024 7:59 AM COMMERCIAL [employer]ONE SOFTWARE DEVELOPER Left sacrum Specimen received in anaerobic transport media. Testing performed by [facility] ([phone]). Teri Hendrix DO LAB MICROBIOLOGY - GENERAL ORDERABLES Final Result Performing Organization Address City/[facility]/[place] [address] * Tissue aerobic and anaerobic culture and gram stain Tissue Sacral (09/29/2024 12:37 PM COMMERCIAL [employer]ONE SOFTWARE DEVELOPER) Direct Specimen Exam Stain: No polymorphonuclear leukocytes seen. No organisms seen. Report Final Report: No growth [facility] Tissue (Sacral) 09/29/2024 1 2:37 PM COMMERCIAL [employer]ONE SOFTWARE DEVELOPER 09/29/2024 2:14 PM COMMERCIAL DRONE SOFTWARE DEVELOPER Narrative [facility] - 10/02/2024 10:33 AM COMMERCIAL [employer]ONE SOFTWARE DEVELOPER Left sacrum Specimen received in anaerobic transport media. Testing performed by [facility] ([phone]) Specimens submitted from normally sterile body sites [...] data was last revised on 2020. Teri [employer] LAB MICROBIOLOGY - GENERAL ORDERABLES Final Result Performing Organization Address City/[facility]/ZIP Co de Phone Number [facility] [place] [address] * (ABNORMAL) Mycology (fungal) culture Tissue Sacral (09/29/2024 12:26 PM COMMERCIAL [employer]ONE SOFTWARE DEVELOPER) Report Final Report: Renetta albicans (.) Organism [facility] Tissue (Sacral) 09/29/2024 1 2:26 PM COMMERCIAL [employer]ONE SOFTWARE DEVELOPER 09/29/2024 2:01 PM COMMERCIAL [employer]ONE SOFTWARE DEVELOPER Narrative [facility] - 10/27/2024 7:56 AM COMMERCIAL [employer]ONE SOFTWARE DEVELOPER Right sacrum Specimen received in anaerobic transport media. Testing performed by [facility] ([phone]). Teri 4th aspectFormerly [facility] LAB MICROBIOLOGY - GENERAL ORDERABLES Final Result Performing Organization Address City/[facility]/ZIP Co de Phone Number [facility] [place] [address] * (ABNORMAL) Tissue aerobic and anaerobic culture and gram stain Tissue Sacral (09/29/2024 12:26 PM COMMERCIAL [employer]ONE SOFTWARE DEVELOPER) Direct Specimen Exam Stain: No polymorphonuclear leukocytes seen. No organisms seen. Report Final Report: Few Mixed aerobic and anaerobic microorganisms Includes the following: Rare Renetta albicans (.) [facility] Organism MIXED AEROBIC AND ANAEROBIC MICROORGANISMS [facility] Organism [facility] Tissue (Sacral) 09/29/2024 1 2:26 PM COMMERCIAL [employer]ONE SOFTWARE DEVELOPER 09/29/2024 2:01 PM COMMERCIAL [employer]ONE SOFTWARE DEVELOPER Narrative [facility] - 10/02/2024 3:00 PM COMMERCIAL [employer]ONE SOFTWARE DEVELOPER Right sacrum Specimen received in anaerobic transport media. Testing performed by [facility] ([phone]) Specimens submitted from normally sterile body sites [...] LAB MICROBIOLOGY - GENERAL ORDERABLES Final Result [facility] [place] [address] * eGFR (09/29/2024 5:48 AM COMMERCIAL [employer]ONE SOFTWARE DEVELOPER) eGFR >90 >=60 mL/min/1. 73 m2 Comment: [...] last reviewed 2021. Blood 09/29/2024 5:48 AM COMMERCIAL [employer]ONE SOFTWARE DEVELOPER 09/29/2024 6:22 AM COMMERCIAL [employer]ONE SOFTWARE DEVELOPER us Kathia Ruiz MD LAB BLOOD ORDERABLES Jessica cruz Result [facility] [place] [address] * (ABNORMAL) Differential, auto (09/29/2024 5:48 AM COMMERCIAL [employer]ONE SOFTWARE DEVELOPER) Neutrophil abs 9.0(H) 1.5 - 6.5 K/cumm Imm gran abs 0.1 0.0 - 0.1 K/cumm [facility] Lymphocyte abs 1.1 0.8 - 3.3 K/cumm [facility] Monocyte abs 0.6 0.2 - 0.8 K/cumm [facility] Eosinophil abs 0.4 0.0 - 0.5 K/cumm [facility] Basophil abs 0.0 0.0 - 0.1 K/cumm [facility] Neutrophil pct 80.1 % [facility] Comment: Interpretive Data Percent cell count reference ranges are not reported, since discordance with absolute values may lead to misinterpretation of CBC data. Current Interpretive Data was last revised on 2018. Imm gran pct 1.1 % [facility] [place] Comment: Interpretive Data Percent cell count reference ranges are not reported, since discordance with absolute values may lead to misinterpretation of CBC data. Current Interpretive Data was last revised on 2018. Lymphocyte pct 10.1 % [facility] Comment: Interpretive Data Percent cell count reference ranges are not reported, since discordance with absolute values may lead to misinterpretation of CBC data. Current Interpretive Data was last revised on 2018. Monocyte pct 5.1 % [facility] Comment: Interpretive Data Percent cell count reference ranges are not reported, since discordance with absolute values may lead to misinterpretation of CBC data. Current Interpretive Data was last revised on 2018. Eosinophil pct 3.4 % [facility] Comment: Interpretive Data Percent cell count reference ranges are not reported, since discordance with absolute values may lead to misinterpretation of CBC data. Current Interpretive Data was last revised on 2018. Basophil pct 0.2 % [facility] Comment: Interpretive Data Percent cell count reference ranges are not reported, since discordance with absolute values may lead to misinterpretation of CBC data. Current Interpretive Data was last revised on 2018. Blood 09/29/2024 5:48 AM COMMERCIAL [employer]ONE SOFTWARE DEVELOPER 09/29/2024 6:23 AM COMMERCIAL [employer]ONE SOFTWARE DEVELOPER us Kathia Ruiz MD LAB BLOOD ORDERABLES Jessica cruz Result [facility] [place] [address] * (ABNORMAL) Protime-INR (09/29/2024 5:48 AM COMMERCIAL [employer]ONE SOFTWARE DEVELOPER) PT 16.3(H) 9.7 - 13.0 sec INR 1.50(H) 0.90 - 1.20 [facility] Comment: Interpretive data Oral anticoagulant therapeutic ranges: Venous thromboembolism prophylaxis or treatment: 2.0-3.0 CARDIOLOGY Standard range: 2.0-3.0 High-intensity range: 2.5-3.5 Refer to indication-specific guidelines for appropriate target ranges for prosthetic heart valve replacement. Current interpretive data was last revised on 2019. Blood 09/29/2024 5:48 AM COMMERCIAL [employer]ONE SOFTWARE DEVELOPER 09/29/2024 6:09 AM COMMERCIAL [employer]ONE SOFTWARE DEVELOPER Kathia Ruiz MD LAB BLOOD ORDERABLES Jessica l Result Performing Organization Address [facility] Co de Phone Number [facility] [place] [address] * (ABNORMAL) CBC with auto differential (09/29/2024 5:48 AM COMMERCIAL [employer]ONE SOFTWARE DEVELOPER) WBC 11.2(H) 3.8 - 9.9 K/cumm Hgb 8.2(L) 13.0 - 17.5 g/dL [facility] Hct 27.1(L) 38.9 - 50.3 % [facility] Plt 391 150 - 400 K/cumm [facility] MPV 10.8 9.1 - 12.[address] [facility] RBC 3.70(L) 4.30 - 5.80 M/cumm [facility] MCV 73.2(L) 81.3 - 96.[address] [facility] MCH 22.2(L) 27.1 - 33.[address] [facility] MCHC 30.3(L) 32.3 - 35.7 g/dL [facility] RDW CV 17.2(H) 11.1 - 14.9 % [facility] RDW SD 45.8 35.7 - 48.[address] [facility] NRBC abs 0.00 0.00 - 0.01 K/cumm [facility] Blood 09/29/2024 5:48 AM COMMERCIAL [employer]ONE SOFTWARE DEVELOPER 09/29/2024 6:23 AM COMMERCIAL [employer]ONE SOFTWARE DEVELOPER Kathia Ruiz MD LAB BLOOD ORDERABLES Jessica l Result Performing Organization Address City/[facility]/ZIP Co de Phone Number [facility] [place] [address] * (ABNORMAL) Basic metabolic panel (09/29/2024 5:48 AM COMMERCIAL [employer]ONE SOFTWARE DEVELOPER) Sodium 136 135 - 145 mmol/L Potassium, pl 3.5 3.3 - 4.9 mmol/L [facility] Chloride 102 97 - 110 mmol/L [facility] CO2 23 22 - 32 mmol/L [facility] Anion gap 11 2 - 15 mmol/L [facility] BUN 9 6 - 25 mg/dL [facility] Creatinine 0.71(L) 0.80 - 1.30 mg/dL [facility] Glucose 90 70 - 199 mg/dL [facility] Comment: Interpretive Data Fasting glucose [...] 2022. Calcium 8.2(L) 8.5 - 10.3 mg/dL [facility] Blood 09/29/2024 5:48 AM COMMERCIAL [employer]ONE SOFTWARE DEVELOPER 09/29/2024 6:22 AM COMMERCIAL [employer]ONE SOFTWARE DEVELOPER Kathia Ruiz MD LAB BLOOD ORDERABLES Jessica cruz Result [facility] [place] [address] * aPTT (09/29/2024 5:48 AM COMMERCIAL [employer]ONE SOFTWARE DEVELOPER) aPTT 33 28 - 38 sec Comment: Interpretive Data Heparin therapeutic range: 66.0 - 100.0 seconds. Range based on correlation with therapeutic heparin activity range of 0.3 - 0.7 Units/mL. Current interpretive data was last revised on 2023. Blood 09/29/2024 5:48 AM COMMERCIAL [employer]ONE SOFTWARE DEVELOPER 09/29/2024 6:09 AM COMMERCIAL [employer]ONE SOFTWARE DEVELOPER Kathia Ruiz MD LAB BLOOD ORDERABLES Jessica nancy Result Performing Organization Address [facility] Co de Phone Number [facility] [place] [address] * (ABNORMAL) CBC without differential (09/28/2024 9:26 PM COMMERCIAL [employer]ONE SOFTWARE DEVELOPER) [facility] WBC 14.9(H) 3.8 - 9.9 K/cumm Hgb 8.3(L) 13.0 - 17.5 g/dL [facility] Hct 27.5(L) 38.9 - 50.3 % [facility] Plt 388 150 - 400 K/cumm [facility] MPV 11.1 9.1 - 12.[address] [facility] RBC 3.75(L) 4.30 - 5.80 M/cumm [facility] MCV 73.3(L) 81.3 - 96.[address] [facility] MCH 22.1(L) 27.1 - 33.[address] [facility] MCHC 30.2(L) 32.3 - 35.7 g/dL [facility] RDW CV 17.2(H) 11.1 - 14.9 % [facility] RDW SD 45.5 35.7 - 48.[address] [facility] NRBC abs 0.00 0.00 - 0.01 K/cumm [facility] Blood 09/28/2024 9:26 PM COMMERCIAL [employer]ONE SOFTWARE DEVELOPER 09/28/2024 10:09 PM COMMERCIAL [employer]ONE SOFTWARE DEVELOPER Kathia Ruiz MD LAB BLOOD ORDERABLES Jessica cruz Result Performing Organization Address [facility] Co de Phone Number [facility] [place] [address] * eGFR (09/28/2024 1:54 PM COMMERCIAL [employer]ONE SOFTWARE DEVELOPER) [facility] eGFR >90 >=60 mL/min/1. 73 m2 Comment: [...] last reviewed 2021. Blood 09/28/2024 1:54 PM COMMERCIAL [employer]ONE SOFTWARE DEVELOPER 09/28/2024 2:19 PM COMMERCIAL DRONE SOFTWARE DEVELOPER us Kathia Ruiz MD LAB BLOOD ORDERABLES Jessica cruz Result Performing Organization Address City/State/[facility] Co de Phone Number [facility] [place] [address] * (ABNORMAL) Differential, auto (09/28/2024 1:54 PM COMMERCIAL [employer]ONE SOFTWARE DEVELOPER) Pathologist [facility] Neutrophil abs 13.6(H) 1.5 - 6.5 K/cumm Imm gran abs 0.2(H) 0.0 - 0.1 K/cumm [facility] Lymphocyte abs 0.8 0.8 - 3.3 K/cumm [facility] Monocyte abs 0.7 0.2 - 0.8 K/cumm [facility] Eosinophil abs 0.3 0.0 - 0.5 K/cumm [facility] Basophil abs 0.0 0.0 - 0.1 K/cumm [facility] Neutrophil pct 87.8 % [facility] Comment: Interpretive Data Percent cell count reference ranges are not reported, since discordance with absolute values may lead to misinterpretation of CBC data. Current Interpretive Data was last revised on 2018. Imm gran pct 1.0 % [facility] Comment: Interpretive Data Percent cell count reference ranges are not reported, since discordance with absolute values may lead to misinterpretation of CBC data. Current Interpretive Data was last revised on 2018. Lymphocyte pct 5.1 % [facility] Comment: Interpretive Data Percent cell count reference ranges are not reported, since discordance with absolute values may lead to misinterpretation of CBC data. Current Interpretive Data was last revised on 2018. Monocyte pct 4.3 % [facility] Comment: Interpretive Data Percent cell count reference ranges are not reported, since discordance with absolute values may lead to misinterpretation of CBC data. Current Interpretive Data was last revised on 2018. Eosinophil pct 1.6 % [facility] Comment: Interpretive Data Percent cell count reference ranges are not reported, since discordance with absolute values may lead to misinterpretation of CBC data. Current Interpretive Data was last revised on 2018. Basophil pct 0.2 % [facility] Comment: Interpretive Data Percent cell count reference ranges are not reported, since discordance with absolute values may lead to misinterpretation of CBC data. Current Interpretive Data was last revised on 2018. Blood 09/28/2024 1:54 PM COMMERCIAL [employer]ONE SOFTWARE DEVELOPER 09/28/2024 2:19 PM COMMERCIAL DRONE SOFTWARE DEVELOPER us Kathia Ruiz MD LAB BLOOD ORDERABLES Jessica cruz Result [facility] [place] [address] * Potassium, whole blood (09/28/2024 1:54 PM COMMERCIAL [employer]ONE SOFTWARE DEVELOPER) Potassium, bld 3.4 3.3 - 4.9 mmol/L Blood 09/28/2024 1:54 PM COMMERCIAL [employer]ONE SOFTWARE DEVELOPER 09/28/2024 2:12 PM COMMERCIAL [employer]ONE SOFTWARE DEVELOPER Kathia Ruiz MD LAB BLOOD ORDERABLES Jessica l Result Performing Organization Address [facility] de Phone Number [facility] [place] [address] * (ABNORMAL) Hemoglobin A1c (09/28/2024 1:54 PM COMMERCIAL [employer]ONE SOFTWARE DEVELOPER) Hgb A1C 5.8(H) 4.0 - 5.6 % Estimated Average Glucose 120 mg/dL [facility] Comment: The ADA recommends reporting an estimated Average Glucose (eAG) with all Hemoglobin A1c results using the equation derived from a study of 507 normal and diabetic adults. ??Minority populations were underrepresented and children were not included. ?? (Diabetes Care 2020; 43(S1): S66-S76). ??The eAG is not equivalent to a fasting glucose. Blood 09/28/2024 1:54 PM COMMERCIAL [employer]ONE SOFTWARE DEVELOPER 09/28/2024 2:19 PM COMMERCIAL DRONE SOFTWARE DEVELOPER Kathia Ruiz MD LAB BLOOD ORDERABLES Jessica l Result Performing Organization Address [facility] de Phone Number [facility] [place] [address] * (ABNORMAL) Comprehensive metabolic panel (09/28/2024 1:54 PM COMMERCIAL DRONE SOFTWARE DEVELOPER) Pathologist [facility] Sodium 135 135 - 145 mmol/L Potassium, pl 3.4 3.3 - 4.9 mmol/L [facility] Chloride 101 97 - 110 mmol/L [facility] CO2 22 22 - 32 mmol/L [facility] Anion gap 12 2 - 15 mmol/L [facility] BUN 7 6 - 25 mg/dL [facility] Creatinine 0.74(L) 0.80 - 1.30 mg/dL [facility] Glucose 86 70 - 199 mg/dL [facility] Comment: Interpretive Data Fasting glucose [...] 2022. Calcium 8.2(L) 8.5 - 10.3 mg/dL [facility] Bilirubin, total 0.4 0.1 - 1.2 mg/dL [facility] Protein, pl 7.1 6.5 - 8.5 g/dL [facility] Albumin 2.7(L) 3.5 - 5.0 g/dL [facility] Alk phos 104 40 - 130 Units/L [facility] ALT 36 7 - 55 Units/L [facility] AST 19 10 - 50 Units/L [facility] Blood 09/28/2024 1:54 PM COMMERCIAL [employer]ONE SOFTWARE DEVELOPER 09/28/2024 2:19 PM COMMERCIAL [employer]ONE SOFTWARE DEVELOPER Kathia Ruiz MD LAB BLOOD ORDERABLES Jessica cruz Result [facility] [place] [address] * (ABNORMAL) CBC with auto differential (09/28/2024 1:54 PM COMMERCIAL [employer]ONE SOFTWARE DEVELOPER) Pathologist [facility] WBC 15.4(H) 3.8 - 9.9 K/cumm Hgb 8.1(L) 13.0 - 17.5 g/dL [facility] Hct 26.5(L) 38.9 - 50.3 % [facility] Plt 377 150 - 400 K/cumm [facility] MPV 10.7 9.1 - 12.[address] [facility] RBC 3.57(L) 4.30 - 5.80 M/cumm [facility] MCV 74.2(L) 81.3 - 96.[address] [facility] MCH 22.7(L) 27.1 - 33.[address] [facility] MCHC 30.6(L) 32.3 - 35.7 g/dL [facility] RDW CV 17.0(H) 11.1 - 14.9 % [facility] RDW SD 46.5 35.7 - 48.[address] [facility] NRBC abs 0.00 0.00 - 0.01 K/cumm [facility] Blood 09/28/2024 1:54 PM COMMERCIAL [employer]ONE SOFTWARE DEVELOPER 09/28/2024 2:19 PM COMMERCIAL [employer]ONE SOFTWARE DEVELOPER Kathia Ruiz MD LAB BLOOD ORDERABLES Jessica cruz Result Performing Organization Address [facility] de Phone Number [facility] [place] [address] * (ABNORMAL) Protime-INR (09/28/2024 1:54 PM COMMERCIAL [employer]ONE SOFTWARE DEVELOPER) PT 16.8(H) 9.7 - 13.0 sec INR 1.54(H) 0.90 - 1.[address] [facility] Comment: Interpretive data Oral anticoagulant therapeutic ranges: Venous thromboembolism prophylaxis or treatment: 2.0-3.0 CARDIOLOGY Standard range: 2.0-3.0 High-intensity range: 2.5-3.5 Refer to indication-specific guidelines for appropriate target ranges for prosthetic heart valve replacement. Current interpretive data was last revised on 2019. Blood 09/28/2024 1:54 PM COMMERCIAL [employer]ONE SOFTWARE DEVELOPER 09/28/2024 2:15 PM COMMERCIAL [employer]ONE SOFTWARE DEVELOPER Kathia Ruiz MD LAB BLOOD ORDERABLES Jessica cruz Result Performing Organization Address [facility] de Phone Number [facility] [place] [address] * aPTT (09/28/2024 1:54 PM COMMERCIAL [employer]ONE SOFTWARE DEVELOPER) aPTT 33 28 - 38 sec Comment: Interpretive Data Heparin therapeutic range: 66.0 - 100.0 seconds. Range based on correlation with therapeutic heparin activity range of 0.3 - 0.7 Units/mL. Current interpretive data was last revised on 2023. Blood 09/28/2024 1:54 PM COMMERCIAL [employer]ONE SOFTWARE DEVELOPER 09/28/2024 2:15 PM COMMERCIAL [employer]ONE SOFTWARE DEVELOPER Kathia Ruiz MD LAB BLOOD ORDERABLES Jessica l Result Performing Organization Address [facility] Co de Phone Number [facility] [place] [address] * Osmolality, blood (09/28/2024 1:54 PM [employer]CIAL [employer] SOFTWARE DEVELOPER) Osmo 276 275 - 300 mOsm/kg Blood 09/28/2024 1:54 PM [employer] SOFTWARE DEVELOPER 09/28/2024 2:19 PM [employer]CIAL [employer] SOFTWARE DEVELOPER Kathia Ruiz MD LAB BLOOD ORDERABLES Jessica l Result Performing Organization Address [facility] de Phone Number [facility] [place] [address] * Type and screen (09/28/2024 1:54 PM [employer] SOFTWARE DEVELOPER) ABO Rh A Positive Pb, indirect Negative [facility] Blood 09/28/2024 1:54 PM [employer] SOFTWARE DEVELOPER 09/28/2024 2:21 PM COMMERCIAL [employer]ONE SOFTWARE DEVELOPER Narrative [facility] - 09/28/2024 3:24 PM COMMERCIAL [employer] SOFTWARE DEVELOPER Has the patient had Daratumumab or Isatuximab in the past 6 months?->Unknown Kathia Ruiz MD LAB BLOOD BANK TEST ORDER WHITNEY Final Result Performing Organization Address [facility] Co de Phone Number [facility] [place] [address] * (ABNORMAL) Iron profile w/ IBC (09/28/2024 1:54 PM [employer] SOFTWARE DEVELOPER) Pathologist [facility] Iron 10(L) 50 - 150 mcg/dL TIBC 106(L) 250 - 400 mcg/dL [facility] Transferrin saturation 9(L) 20 - 50 % [facility] Blood 09/28/2024 1:54 PM COMMER[employer] SOFTWARE DEVELOPER 09/28/2024 2:19 PM COMMERCIAL [employer] SOFTWARE DEVELOPER Kathia Ruiz MD LAB BLOOD ORDERABLES Jessica l Result Performing Organization Address [facility] Co de Phone Number [facility] [place] [address] * Urine culture Urine, in and out catheter (09/28/2024 1:35 PM COMMER[employer] SOFTWARE DEVELOPER) Pathologist [facility] Report Final Report: Less than 10,000 colonies/mL (clinically insignificant growth based on current clinical standards) Organism (CLINICALLY INSIGNIFICANT GROWTH [facility] Urine, in and out catheter 09/28/2024 1:35 PM [employer] SOFTWARE DEVELOPER 09/28/2024 4:19 PM COMMERCIAL [employer]ONE SOFTWARE DEVELOPER Narrative [facility] - 09/29/2024 5:12 PM COMMER[employer] SOFTWARE DEVELOPER Indications for Culture:->Recent positive UA Specimen received in a sterile container. Testing performed by [facility] ([phone]) Kathia Ruiz MD LAB MICROBIOLOGY - GENERA L ORDERABLES Final Result Performing Organization Address [facility] Co de Phone Number [facility] [place] [address] * Urea nitrogen, urine, random (09/28/2024 1:07 PM COMMER[employer] SOFTWARE DEVELOPER) Pathologist [facility] Urea nitrogen, ur 665 mg/dL Comment: Interpretive Data No reference range established. Current interpretive data was last revised 2019. Urine 09/28/2024 1:07 PM COMM[employer]CIAL [employer] SOFTWARE DEVELOPER 09/28/2024 4:14 PM COMMERCIAL [employer]ONE SOFTWARE DEVELOPER us Kathia Ruiz MD LAB URINE ORDERABLES Jessica l Result Performing Organization Address [facility] Co de Phone Number [facility] [place] [address] * Sodium, urine, random (09/28/2024 1:07 PM COMMER[employer] SOFTWARE DEVELOPER) Sodium, ur 21 mmol/L Comment: Interpretive Data No reference range established. Current interpretive data was last revised 2019. Urine 09/28/2024 1:07 PM COMMERCIAL [employer] SOFTWARE DEVELOPER 09/28/2024 4:14 PM COMMERCIAL [employer]ONE SOFTWARE DEVELOPER Kathia Ruiz MD LAB URINE ORDERABLES Jessica l Result Performing Organization Address [facility] Co de Phone Number [facility] [place] [address] * Osmolality, urine (09/28/2024 1:07 PM COMMER[employer] SOFTWARE DEVELOPER) Osmo, ur 631 mOsm/kg Urine 09/28/2024 1:07 PM COMMER[employer] SOFTWARE DEVELOPER 09/28/2024 4:12 PM COMMERCIAL [employer]ONE SOFTWARE DEVELOPER Kathia Ruiz MD LAB URINE ORDERABLES Jessica l Result Performing Organization Address [facility] Co de Phone Number [facility] [place] [address] * Creatinine, urine, random (09/28/2024 1:07 PM COMMER[employer] SOFTWARE DEVELOPER) Creatinine Ur 185.5 mg/dL Comment: Interpretive Data No reference range established. Current interpretive data was last revised 2019. Urine 09/28/2024 1:07 PM COMMERCIAL [employer] SOFTWARE DEVELOPER 09/28/2024 4:14 PM COMMERCIAL [employer]ONE SOFTWARE DEVELOPER Kathia Ruiz MD LAB URINE ORDERABLES Jessica l Result Performing Organization Address City/[facility] de Phone Number [facility] Department [place] [address] * ECG 12 lead (09/28/2024 11:11 AM COMMERCIAL [employer] SOFTWARE DEVELOPER) Ventricular Rate EKG/Min 91 BPM [facility] Atrial Rate [address] [facility] [place]-Interval (MSEC) [address] [facility] QRS-Interval (MSEC) [address] [facility] QT-Interval (MSEC) [address] [facility] QTc [address] [facility] P [place] [address] [facility] R [place] [address] [facility] T [place] -[address] [facility] Diagnosis Normal sinus rhythm Nonspecific T wave abnormality Abnormal ECG Confirmed by Viri HERRERA, [facility] (1967) on 10/03/2024 1:36:26 AM [facility] 09/28/2024 11:1 1 AM [employer]ER[employer] SOFTWARE DEVELOPER 10/03/2024 1:36 AM COMMERCIAL [employer]ONE SOFTWARE DEVELOPER us Kathia Ruiz MD ECG ORDERABLES Final Res ult Performing Organization Address [facility] de Phone Number [facility] * (ABNORMAL) Urine culture Urine (09/28/2024 7:53 AM COMMER[employer] SOFTWARE DEVELOPER) Report Final Report: Growth indicates contamination with mixed bacterial meir. Please submit a new specimen with special attention given to the collection process and to prompt transport to the laboratory. (.) Organism GROWTH INDICATES CONTAMINATION WITH MIXED MEIR. [facility] Urine 09/28/2024 7:53 AM COMMER[employer] SOFTWARE DEVELOPER 09/28/2024 2:59 PM COMMERCIAL [employer]ONE SOFTWARE DEVELOPER Narrative [facility] - 09/29/2024 10:59 PM COMMER[employer] SOFTWARE DEVELOPER Testing performed by [facility] ([phone]) us Kathia Ruiz MD LAB MICROBIOLOGY - GENERA L ORDERABLES Final Result Performing Organization Address [facility] Co de Phone Number [facility] [place] [address] * (ABNORMAL) Urinalysis, microscopic only (09/28/2024 7:53 AM COMMER[employer] SOFTWARE DEVELOPER) WBC, ur >50(A) 0 - 5 /HPF RBC, ur >50(A) 0 - 2 /HPF [facility] Epithelial cells, squamous, ur 6-10(A) 0 - 5 /HPF [facility] Comment:Suggestive of contam ination. Consider recollection by clean catch. Bacteria, ur 2+(A) [facility] Mucous, ur Present(A) [facility] Culture Reflex Comment Reflex to urine culture will be performed. [facility] Urine 09/28/2024 7:53 AM COMMERCIAL [employer] SOFTWARE DEVELOPER 09/28/2024 8:03 AM COMMERCIAL [employer]ONE SOFTWARE DEVELOPER us Adelina Galvan MD LAB URINE ORDERABLES Fi nal Result [facility] [place] [address] * (ABNORMAL) Urinalysis reflex to microscopic and culture Urine (09/28/2024 7:53 AM COMMER[employer] SOFTWARE DEVELOPER) Color, ur Yellow Yellow Clarity, ur Cloudy(A) Clear [facility] Specific gravity, ur >1.042(H) 1.003 - 1.[address] [facility] pH, urine 6.[address] [facility] Comment: Interpretive Data ? Urine pH is affected by diet, medications, systemic acid-base disturbances, and renal tubular function. ??pH may affect urinary stone formation. ??For example, urine pH below 6.0 may help reduce the tendency for calcium phosphate stones and pH greater than 6.0 may reduce the tendency for uric acid stone formation. Source: [email or web address] Current Interpretive Data was last revised on 2017 Protein, ur ql 2+(A) Negative [facility] Glucose, ur ql Negative Negative [facility] Ketones, ur 2+(A) Negative [facility] Bilirubin, ur Negative Negative [facility] Blood, ur Negative Negative [facility] Urobilinogen, ur <2.0 <2.0 mg/dL [facility] Nitrite, ur Positive(A) Negative [facility] Leukocyte esterase, ur 3+(A) Negative [facility] UA reflex comment Reflex to microscopic UA will be performed. [facility] Urine 09/28/2024 7:53 AM COMMERCIAL [employer] SOFTWARE DEVELOPER 09/28/2024 8:03 AM COMMERCIAL [employer]ONE SOFTWARE DEVELOPER Adelina Galvan MD LAB MICROBIOLOGY - GENE RAL ORDERABLES Final Result Performing Organization Address [facility] Co de Phone Number [facility] Department [place] [address] * Influenza A/B, RSV, and COVID-19 PCR Nasopharyngeal (09/28/2024 1:08 AM COMMERCIAL [employer]ONE SOFTWARE DEVELOPER) Pathologist [facility] COVID-19 RNA Negative Negative [facility] Influenza A RNA Negative Negative [facility] Influenza B RNA Negative Negative [facility] RSV RNA Negative Negative [facility] Comment: Interpretive data: Testing performed by [facility] ([phone]). This test is performed using the [employer] Xpert Xpress CoV-2/Flu/RSV plus assay. This is a multiplex, real-time reverse transcriptase PCR assay intended for the qualitative detection of nucleic acid from SARS-CoV-2, influenza A, influenza B, and respiratory syncytial virus. This assay has been cleared by the [place] Food and Drug administration. The performance characteristics have been verified by the [facility]. ??Results must be considered in the clinical context, and a negative result does not rule out infection. Interpretive Data last revised 2023 Nasopharyngeal 09/28/2024 1: 08 AM COMMERCIAL [employer]ONE SOFTWARE DEVELOPER 09/28/2024 1:18 AM COMMERCIAL [employer]ONE SOFTWARE DEVELOPER Narrative [facility] - 09/28/2024 2:01 AM COMMERCIAL [employer]ONE SOFTWARE DEVELOPER Is the Patient experiencing symptoms consistent with COVID?->Yes Chula Tate MD LAB MICROBIOLOGY - GENERAL ORDERABLES Final Result Performing Organization Address [facility] Co de Phone Number [facility] [place] [address] [facility] * CT Abdomen Pelvis W Contrast (09/27/2024 11:35 PM COMMERCIAL [employer] SOFTWARE DEVELOPER) Anatomical Region Laterality Modality Body N/A Computed Tomogra phy 09/28/2024 12:1 8 AM COMMERCIAL [employer]ONE SOFTWARE DEVELOPER Impressions 09/28/2024 8:01 AM COMMERCIAL [employer]ONE SOFTWARE DEVELOPER 1. ??Cutaneous tract extending from bilateral gluteal [...] Cipriano Vergara M.D. Narrative 09/28/2024 8:01 AM COMMERCIAL [employer]ONE SOFTWARE DEVELOPER EXAMINATION: ??Computed tomography of the abdomen and [...] it. Electronically signed by: Cipriano Vergara M.D. Adleina Galvan MD IMG CT PROCEDURES Final Result * Sepsis Lactate w/ Reflex (09/27/2024 10:32 PM COMMERCIAL [employer] SOFTWARE DEVELOPER) Sepsis Lactate 1.6 0.7 - 2.0 mmol/L Blood 09/27/2024 10:3 2 PM COMMERCIAL [employer]ONE SOFTWARE DEVELOPER 09/27/2024 10:37 PM COMMERCIAL [employer]ONE SOFTWARE DEVELOPER us Adelina Galvan MD LAB BLOOD ORDERABLES Fi nal Result Performing Organization Address City/[facility]/ZIP Co de Phone Number [facility] OLIV[facility] [place] [address] * Blood culture Blood Peripheral (09/27/2024 10:32 PM COMMERCIAL [employer]ONE SOFTWARE DEVELOPER) Report Final Report: No growth Blood (Peripheral) 09/27/2024 10:32 PM COMMERCIAL [employer]ONE SOFTWARE DEVELOPER 09/27/2024 10:39 PM COMMERCIAL [employer]ONE SOFTWARE DEVELOPER Narrative [facility] - 10/02/2024 7:00 AM COMMERCIAL [employer]ONE SOFTWARE DEVELOPER From a different site than #1. Draw [...] organism identification may be performed using the [employer] Gram-Positive Blood Culture Assay. This assay detects microbial DNA in positive blood culture broth via hybridization of target DNA to capture oligonucleotides on a microarray. This assay has been cleared by the [place] Food and Drug Administration and its performance characteristics have been verified by the [facility]. 5. ?For questions about this culture, contact the Microbiology Laboratory at [phone]. Interpretive data was last revised on 2020. us Adelina Galvan MD LAB MICROBIOLOGY - GENE RAL ORDERABLES Final Result Performing Organization Address City/[facility]/ZIP Co de Phone Number [facility] [place] [address] * XR Chest 1 Vw Portable (09/27/2024 10:21 PM COMMERCIAL [employer] SOFTWARE DEVELOPER) Anatomical Region Laterality Modality Body, Chest N/A Computed Radiogr aphy 09/28/2024 12:4 2 AM COMMERCIAL [employer]ONE SOFTWARE DEVELOPER Impressions 09/28/2024 8:01 AM COMMERCIAL [employer]ONE SOFTWARE DEVELOPER Comparison is made to prior chest radiograph [...] Cipriano Vergara M.D. Narrative 09/28/2024 8:01 AM COMMERCIAL [employer]ONE SOFTWARE DEVELOPER EXAMINATION: 1 view chest radiograph Procedure Note [...] Final Result * eGFR (09/27/2024 7:59 PM COMMERCIAL [employer]ONE SOFTWARE DEVELOPER) eGFR >90 >=60 mL/min/1. 73 m2 Comment: [...] last reviewed 2021. Blood 09/27/2024 7:59 PM COMMERCIAL [employer]ONE SOFTWARE DEVELOPER 09/27/2024 8:29 PM COMMERCIAL [employer]ONE SOFTWARE DEVELOPER us Adelina Galvan MD LAB BLOOD ORDERABLES Fi nal Result [facility] [place] [address] * (ABNORMAL) Differential, auto (09/27/2024 7:59 PM COMMERCIAL [employer] SOFTWARE DEVELOPER) Neutrophil abs 21.9(H) 1.5 - 6.5 K/cumm Imm gran abs 0.2(H) 0.0 - 0.1 K/cumm [facility] Lymphocyte abs 1.4 0.8 - 3.3 K/cumm [facility] Monocyte abs 0.6 0.2 - 0.8 K/cumm [facility] Eosinophil abs 0.1 0.0 - 0.5 K/cumm [facility] Basophil abs 0.0 0.0 - 0.1 K/cumm [facility] Neutrophil pct 90.5 % [facility] Comment: Interpretive Data Percent cell count reference ranges are not reported, since discordance with absolute values may lead to misinterpretation of CBC data. Current Interpretive Data was last revised on 2018. Imm gran pct 1.0 % [facility] Comment: Interpretive Data Percent cell count reference ranges are not reported, since discordance with absolute values may lead to misinterpretation of CBC data. Current Interpretive Data was last revised on 2018. Lymphocyte pct 5.6 % [facility] Comment: Interpretive Data Percent cell count reference ranges are not reported, since discordance with absolute values may lead to misinterpretation of CBC data. Current Interpretive Data was last revised on 2018. Monocyte pct 2.4 % [facility] Comment: Interpretive Data Percent cell count reference ranges are not reported, since discordance with absolute values may lead to misinterpretation of CBC data. Current Interpretive Data was last revised on 2018. Eosinophil pct 0.3 % [facility] Comment: Interpretive Data Percent cell count reference ranges are not reported, since discordance with absolute values may lead to misinterpretation of CBC data. Current Interpretive Data was last revised on 2018. Basophil pct 0.2 % [facility] Comment: Interpretive Data Percent cell count reference ranges are not reported, since discordance with absolute values may lead to misinterpretation of CBC data. Current Interpretive Data was last revised on 2018. Blood 09/27/2024 7:59 PM COMMERCIAL [employer]ONE SOFTWARE DEVELOPER 09/27/2024 8:26 PM COMMERCIAL [employer]ONE SOFTWARE DEVELOPER us Adelina Galvan MD LAB BLOOD ORDERABLES Fi nal Result [facility] [place] [address] * (ABNORMAL) Sepsis Lactate w/ Reflex (09/27/2024 7:59 PM COMMERCIAL [employer] SOFTWARE DEVELOPER) Sepsis Lactate 3.6(H) 0.7 - 2.0 mmol/L Blood 09/27/2024 7:59 PM COMMERCIAL [employer]ONE SOFTWARE DEVELOPER 09/27/2024 8:08 PM COMMERCIAL [employer]ONE SOFTWARE DEVELOPER Adelina Galvan MD LAB BLOOD ORDERABLES Fi nal Result [facility] [place] [address] * Blood culture Blood Peripheral (09/27/2024 7:59 PM COMMERCIAL [employer]ONE SOFTWARE DEVELOPER) Report Final Report: No growth Blood (Peripheral) 09/27/2024 7:59 PM COMMERCIAL [employer]ONE SOFTWARE DEVELOPER 09/27/2024 8:11 PM COMMERCIAL [employer]ONE SOFTWARE DEVELOPER Narrative [facility] - 10/02/2024 7:00 AM COMMERCIAL [employer]ONE SOFTWARE DEVELOPER Draw Blood cultures before administration of Antibiotics [...] organism identification may be performed using the [employer] Gram-Positive Blood Culture Assay. This assay detects microbial DNA in positive blood culture broth via hybridization of target DNA to capture oligonucleotides on a microarray. This assay has been cleared by the [place] Food and Drug Administration and its performance characteristics have been verified by the [facility]. 5. ?For questions about this culture, contact the Microbiology Laboratory at [phone]. Interpretive data was last revised on 2020. us Adelina Galvan MD LAB MICROBIOLOGY - GENE [facility] ORDERABLES Final Result [facility] [place] [address] * (ABNORMAL) Comprehensive metabolic panel (09/27/2024 7:59 PM COMMERCIAL [employer]ONE SOFTWARE DEVELOPER) Sodium 132(L) 135 - 145 mmol/L Potassium, pl 4.3 3.3 - 4.9 mmol/L [facility] Comment:Hemolyzed; Potassium value may be falsely elevated by as much as 0.3-0.5 mmol/L. Suggest redraw and reanalysis. Chloride 96(L) 97 - 110 mmol/L [facility] CO2 21(L) 22 - 32 mmol/L [facility] Anion gap 15 2 - 15 mmol/L [facility] BUN 7 6 - 25 mg/dL [facility] Creatinine 0.74(L) 0.80 - 1.30 mg/dL [facility] Glucose 74 70 - 199 mg/dL [facility] Comment: Interpretive Data Fasting glucose [...] 2022. Calcium 9.4 8.5 - 10.3 mg/dL [facility] Bilirubin, total 0.8 0.1 - 1.2 mg/dL [facility] Protein, pl 9.6(H) 6.5 - 8.5 g/dL [facility] Albumin 3.4(L) 3.5 - 5.0 g/dL [facility] Alk phos 143(H) 40 - 130 Units/L [facility] ALT 71(H) 7 - 55 Units/L [facility] AST 47 10 - 50 Units/L [facility] Comment:Hemolyzed; result ma y be falsely elevated Blood 09/27/2024 7:59 PM COMMERCIAL [employer]ONE SOFTWARE DEVELOPER 09/27/2024 8:29 PM COMMERCIAL [employer]ONE SOFTWARE DEVELOPER Adelina Galvan MD LAB BLOOD ORDERABLES Fi nal Result Performing Organization Address [facility] Co de Phone Number [facility] [place] [address] * (ABNORMAL) CBC with auto differential (09/27/2024 7:59 PM COMMERCIAL [employer] SOFTWARE DEVELOPER) WBC 24.2(H) 3.8 - 9.9 K/cumm Hgb 10.7(L) 13.0 - 17.5 g/dL [facility] Hct 35.3(L) 38.9 - 50.3 % [facility] Plt 463(H) 150 - 400 K/cumm [facility] MPV 10.9 9.1 - 12.[address] [facility] RBC 4.83 4.30 - 5.80 M/cumm [facility] MCV 73.1(L) 81.3 - 96.[address] [facility] MCH 22.2(L) 27.1 - 33.[address] [facility] MCHC 30.3(L) 32.3 - 35.7 g/dL [facility] RDW CV 17.2(H) 11.1 - 14.9 % [facility] RDW SD 45.4 35.7 - 48.[address] [facility] NRBC abs 0.00 0.00 - 0.01 K/cumm [facility] Blood 09/27/2024 7:59 PM COMMERCIAL [employer]ONE SOFTWARE DEVELOPER 09/27/2024 8:26 PM COMMERCIAL [employer]ONE SOFTWARE DEVELOPER Adelina Galvan MD LAB BLOOD ORDERABLES Fi nal Result Performing Organization Address City/[facility]/ZIP Co de Phone Number [facility] [place] [address] documented in this encounter Visit Diagnoses Diagnosis Pressure injury of buttock, unstageable, unspecified laterality (HCC)- Primary Pressure injury of buttock, unstageable, unspecified laterality (HCC) Sepsis without acute organ dysfunction, due to unspecified organism (HCC) Sacral osteomyelitis (CMS/HCC) (HCC) Abdominal pain Abdominal pain, unspecified site Spinal abscess (CMS/HCC) (HCC) Acute osteomyelitis, other specified site Neurogenic bowel Pressure injury of buttock, unstageable, unspecified laterality (HCC) documented in this encounter Admitting Diagnoses Diagnosis Pressure injury of buttock, unstageable, unspecified laterality (HCC) documented in this encounter Administered Medications Inactive Administered Medications - up to 3 most recent administrations Medication Order MAR Action Action Date Dose Rate Site acetaminophen (TYLENOL) tablet 1,000 mg 1,000 mg, oral, Every 6 hours scheduled, First dose on Ramandeep 09/28/24 at 0040 Given 10/09/2024 6:09 PM COMMERCIAL [employer] SOFTWARE DEVELOPER 1,000 mg Given 10/09/2024 12:17 PM COMMERCIAL [employer] SOFTWARE DEVELOPER 1,000 mg Given 10/09/2024 6:08 AM COMMERCIAL [employer]ONE SOFTWARE DEVELOPER 1,000 mg ALPRAZolam (XANAX) tablet 0.25 mg 0.25 mg, oral, 2 times daily, First dose (after last modification) on Ramandeep 09/28/24 at 1545 Given 10/09/2024 8:00 PM [employer] SOFTWARE DEVELOPER 0.25 mg Given 10/09/2024 8:43 AM COMMERCIAL [employer]ONE SOFTWARE DEVELOPER 0.25 mg Given 10/08/2024 9:30 PM COMMERCIAL [employer] SOFTWARE DEVELOPER 0.25 mg benzocaine-menthoL (CHLORASEPTIC) lozenge 1 lozenge 1 lozenge, mouth/throat, Every 2 hours PRN, sore throat, Starting on 09/30/24 at 1207 cefTRIAXone (ROCEPHIN) 2,000 mg/20 mL in sterile water (premix) 2,000 mg 2,000 mg, intravenous, at 240 mL/hr, Administer over 5 Minutes, Every 24 hours scheduled, First dose (after last modification) on 10/09/24 at 1530, Indications: Bone/Joint InfectionIndications:Bone/Joint Infection Given 10/09/2024 3:10 PM COMMERCIAL DRONE SOFTWARE DEVELOPER 2,000 mg 240 mL/hr cyclobenzaprine (FLEXERIL) tablet 5 mg 5 mg, oral, 3 times daily PRN, muscle spasms, Starting on Ramandeep 09/28/24 at 1020 Given 10/09/2024 6:09 PM COMMERCIAL DRONE SOFTWARE DEVELOPER 5 mg Given 10/09/2024 12:17 PM COMMERCIAL DRONE SOFTWARE DEVELOPER 5 mg Given 10/09/2024 6:08 AM COMMERCIAL DRONE SOFTWARE DEVELOPER 5 mg enoxaparin (LOVENOX) syringe 40 mg 40 mg, subcutaneous, Every 12 hours scheduled, First dose (after last modification) on 09/30/24 at 2100, Indications: Deep Vein Thrombosis PreventionIndications:Deep Vein Thrombosis Prevention Given 10/09/2024 8:00 PM COMMERCIAL DRONE SOFTWARE DEVELOPER 40 mg Left Upper Abdomen Given 10/09/2024 8:43 AM COMMERCIAL DRONE SOFTWARE DEVELOPER 40 mg Le ft Lower Abdomen Given 10/08/2024 9:30 PM COMMERCIAL DRONE SOFTWARE DEVELOPER 40 mg Le ft Lower Abdomen fentaNYL (DURAGESIC) 75 mcg/hr patch 72 hour 1 patch 1 patch, transdermal, Administer over 72 Hours, Every 72 hours, First dose on Wed10/04/24 at 1800, Apply to an area with sufficient adipose tissue Remove according to hospital policy. Dispose in Stericycle CsRx bin and document in Pyxis with witness. Medication Applied 10/07/2024 7:49 PM COMMERCIAL DRONE SOFTWARE DEVELOPER 1 patch Left Shoulder Medication Applied 10/04/2024 9:14 PM COMMERCIAL DRONE SOFTWARE DEVELOPER 1 patch Left Shoulder ferrous sulfate tablet 325 mg 325 mg (65 mg of elemental iron), oral, Daily with evening meal, First dose on Wed10/06/24 at 1800, Indications: Iron Deficiency Anemia, On hold since 10/08/2024 at 0755 until manually unheldIndications:Iron Deficiency Anemia Given 10/06/2024 6:15 PM COMMERCIAL DRONE SOFTWARE DEVELOPER 325 mg folic acid (FOLVITE) tablet 1 mg 1 mg, oral, Daily, First dose on Wed10/06/24 at 1815, Each tablet contains 1 mg of folic acid (1.67 mg DFE). Given 10/09/2024 8:43 AM COMMERCIAL DRONE SOFTWARE DEVELOPER 1 mg Given 10/08/2024 9:01 AM COMMERCIAL DRONE SOFTWARE DEVELOPER 1 mg Given 10/07/2024 9:17 AM COMMERCIAL DRONE SOFTWARE DEVELOPER 1 mg gabapentin (NEURONTIN) capsule 300 mg 300 mg, oral, Nightly, First dose on Ramandeep 09/28/24 at 2100 Given 10/09/2024 8:00 PM COMMERCIAL DRONE SOFTWARE DEVELOPER 300 mg Given 10/08/2024 9:30 PM COMMERCIAL DRONE SOFTWARE DEVELOPER 300 mg Given 10/07/2024 9:37 PM COMMERCIAL DRONE SOFTWARE DEVELOPER 300 mg heparin 100 unit/mL injection 100 Units 100 Units (1 mL), intra-catheter, Every 8 hours PRN, line care, Starting on Wed09/29/24 at 1624 Given 10/07/2024 7:46 PM COMMERCIAL DRONE SOFTWARE DEVELOPER 100 Units Given 09/29/2024 10:38 PM COMMERCIAL DRONE SOFTWARE DEVELOPER 100 Units Given 09/29/2024 5:23 PM COMMERCIAL DRONE SOFTWARE DEVELOPER 100 Units HYDROmorphone (DILAUDID) tablet 2 mg 2 mg, oral, Every 6 hours PRN, breakthrough pain, Starting on Wed10/04/24 at 1702, Indications: PainIndications:Pain Given 10/09/2024 6:09 PM COMMERCIAL DRONE SOFTWARE DEVELOPER 2 mg Given 10/09/2024 12:17 PM COMMERCIAL DRONE SOFTWARE DEVELOPER 2 mg Given 10/09/2024 6:08 AM COMMERCIAL DRONE SOFTWARE DEVELOPER 2 mg ibuprofen (ADVIL,MOTRIN) tablet 400 mg 400 mg, oral, Every 4 hours PRN, 2nd line for pain, Starting on Wed09/29/24 at 1629, Do not crush, break, or open. Given 10/09/2024 8:00 PM COMMERCIAL DRONE SOFTWARE DEVELOPER 400 mg Given 10/09/2024 2:58 PM COMMERCIAL DRONE SOFTWARE DEVELOPER 400 mg Given 10/06/2024 8:09 PM COMMERCIAL DRONE SOFTWARE DEVELOPER 400 mg metroNIDAZOLE (FLAGYL) tablet 500 mg 500 mg, oral, 2 times daily, First dose (after last modification) on 10/09/24 at 1600, Indications: Sepsis, Skin/Soft Tissue Infection, Urinary Tract/Genitourinary InfectionIndications:Sepsis,Skin/Soft Tissue Infection,Urinary Tract/Genitourinary Infection Given 10/09/2024 6:09 PM COMMERCIAL DRONE SOFTWARE DEVELOPER 500 mg ondansetron (ZOFRAN) injection 4 mg 4 mg, intravenous, Administer over 2 Minutes, Every 4 hours PRN, nausea, vomiting, Starting on 10/01/24 at 0906 Given 10/07/2024 1:42 PM COMMERCIAL DRONE SOFTWARE DEVELOPER 4 mg Given 10/01/2024 9:18 AM COMMERCIAL DRONE SOFTWARE DEVELOPER [address] (PROTONIX) extended release tablet 40 mg 40 mg, oral, 2 times daily before meals (bkfst, dinner), First dose on Ramandeep 09/28/24 at 1730, Do not crush, chew, cut, dissolve, open or otherwise manipulate tablet/capsule., Indications: Treatment of Non-Bleeding Gastric DisorderIndications:Treatment of Non-Bleeding Gastric Disorder Given 10/09/2024 6:09 PM COMMERCIAL DRONE SOFTWARE DEVELOPER 40 mg Given 10/09/2024 6:08 AM COMMERCIAL DRONE SOFTWARE DEVELOPER 40 mg Given 10/08/2024 6:32 PM COMMERCIAL DRONE SOFTWARE DEVELOPER 40 mg propranoloL (INDERAL) tablet 40 mg 40 mg, oral, 2 times daily, First dose on Ramandeep 09/28/24 at 1100 Given 10/09/2024 8:00 PM COMMERCIAL DRONE SOFTWARE DEVELOPER 40 mg Given 10/09/2024 8:43 AM COMMERCIAL DRONE SOFTWARE DEVELOPER 40 mg Given 10/08/2024 9:30 PM COMMERCIAL DRONE SOFTWARE DEVELOPER 40 mg senna-docusate (PERICOLACE) 8.6-50 mg per tablet 1 tablet 1 tablet, oral, 2 times daily, First dose on Ramandeep 09/28/24 at 1100, Indications: constipationIndications:constipation Given 10/09/2024 8:43 AM COMMERCIAL DRONE SOFTWARE DEVELOPER 1 table t Given 10/07/2024 9:37 PM COMMERCIAL DRONE SOFTWARE DEVELOPER 1 tablet Given 10/07/2024 9:17 AM COMMERCIAL DRONE SOFTWARE DEVELOPER 1 tablet sodium chloride 0.9% flush 15 mL 15 mL, intra-catheter, As needed, line care, Starting on Wed09/29/24 at 1623 Given 10/06/2024 6:09 AM COMMERCIAL DRONE SOFTWARE DEVELOPER 15 mL Given 10/05/2024 9:15 PM COMMERCIAL DRONE SOFTWARE DEVELOPER 15 mL Given 10/04/2024 9:15 PM COMMERCIAL DRONE SOFTWARE DEVELOPER 15 mL sodium chloride 0.9% irrigation As needed, Starting on Wed09/29/24 at 1217, Intra-Op Given 09/29/2024 12:17 PM COMMERCIAL DRONE SOFTWARE DEVELOPER 1,000 mL Surgical Site sodium hypochlorite (DAKIN'S QUARTER STRENGTH) 0.125 % external solution As needed, Starting on Wed09/29/24 at 1218, Intra-Op, Indications: Skin DisinfectionIndications:Skin Disinfection Given 09/29/2024 12:18 PM COMMERCIAL DRONE SOFTWARE DEVELOPER 500 mL Other (Comment) documented in this encounter Discontinued Medications Medication [...] Recently Administered Medications Times are shown in COMMERCIAL DRONE SOFTWARE DEVELOPER. Scheduled Medication Order 10/07/2024 10/08/2024 10/09/2024 acetaminophen (TYLENOL) tablet 1,000 mg 1,000 mg, oral, Every 6 hours scheduled, First dose on Ramandeep 09/28/24 at 0040 0605 (Given - Provider: Sharmin Quan RN)1339 (Given - Provider: Ana M Jang RN)1946 (Given - Provider: Ana M Jang [...] dose on Wed10/02/24 at 2000, Indications: Bone/Joint Infection 2140 (Given - Provider: Trino Medeiros RN) 2135 (Given - Provider: Melany Mchugh RN) cefTRIAXone (ROCEPHIN) 2,000 mg/20 mL in [...] RN)2136 (Given - Provider: Trino Medeiros RN) 0901 (Given - Provider: Ana M Jang RN)2129 (Given - Provider: Melany Mchugh RN) 0843 (Given - Provider: Alice Rooney RN)1999 (Given - Provider: Kip Mcgregor RN) fentaNYL (DURAGESIC) 75 mcg/hr patch 72 hour 1 patch 1 patch, transdermal, Administer over 72 Hours, Every 72 hours, First dose on Wed10/04/24 at 1800, Apply to an area with sufficient adipose tissue Remove according to hospital policy. Dispose in Stericycle CsRx bin and document in Pyxis with witness. 0254 (Patch Verify - Provider: Sharmin Quan RN)1945 (Medication Removed - Provider: Ana M Jang [...] 09 (Given - Provider: Ana M Jang RN) 0843 (Given - Provider: Alice Rooney, PARAM) gabapentin (NEURONTIN) capsule 300 mg 300 mg, oral, Nightly, First dose on Wed09/28/24 at 2100 2137 (Given - Provider: Trino Medeiros, PARAM) 2129 (Given - Provider: Melany Mchugh, RN) 1999 (Given - Provider: Kip Mcgregor, PARAM) metroNIDAZOLE (FLAGYL) tablet 500 mg (CANCELED) 500 mg, oral, 2 times daily, First dose on Wed09/28/24 at 2100, Indications: Sepsis, Skin/Soft Tissue Infection, Urinary Tract/Genitourinary Infection 0917 (Given - Provider: Ana M Jang RN)213 (Given - Provider: Trino Medeiros, PARAM) 09 (Given - Provider: Ana M Jang RN)2129 (Given - Provider: Melany Mchugh, PARAM) 0842 (Given - Provider: Alice Rooney, PARAM) metroNIDAZOLE (FLAGYL) tablet 500 mg 500 mg, [...] tablet/capsule., Indications: Treatment of Non-Bleeding Gastric Disorder 09 (Given - Provider: Ana M Jang RN)1945 (Given - Provider: An aM Jang RN) 09 (Given - Provider: Ana M Jang RN)1831 (Given - Provider: Ana M Jang RN) 607 (Given - Provider: Melany Mchugh RN)1808 (Given - Provider: Alice Rooney RN) propranoloL (INDERAL) tablet 40 mg 40 mg, oral, 2 times daily, First dose on Wed09/28/24 at 1100 09 (Given - Provider: Ana M Jang RN)2136 (Given - Provider: Trino Medeiros RN) 900 (Given - Provider: Ana M Jang RN)2129 (Given - Provider: Melany Mchugh RN) 08 (Given - Provider: Alice Rooney RN)1999 (Given - Provider: Kip Mcgregor RN) senna-docusate (PERICOLACE) 8.6-50 mg per tablet 1 tablet 1 tablet, oral, 2 times daily, First dose on Wed09/28/24 at 1100, Indications: constipation 09 (Given - Provider: Ana M Jang RN)2136 (Given - Provider: Trino Medeiros RN) 901 (Not Given - Provider: Ana M Jang RN - Reason: Order parameters not met)2130 (Not Given - Provider: Melany Mchugh RN - Reason: Patient/family refused) 842 (Given - Provider: Alice Rooney RN)1999 (Not Given - Provider: Kip Mcgregor RN - Reason: Patient/family refused) PRN Medication Order 10/07/2024 10/08/2024 10/09/2024 benzocaine-menthoL (CHLORASEPTIC) lozenge 1 lozenge 1 lozenge, mouth/throat, Every 2 hours PRN, sore throat, Starting on 09/30/24 at 1207 cyclobenzaprine (FLEXERIL) tablet 5 mg 5 mg, oral, 3 times daily PRN, muscle spasms, Starting on Ramandeep 09/28/24 at 1020 0608 (Given - Provider: Melany [...] 6 hours PRN, breakthrough pain, Starting on 10/04/24 at 1702, Indications: Pain 1339 (Given - Provider: Ana M Jang RN)2136 (Given - Provider: Trino Medeiros RN) 1534 (Given - Provider: Ana M Jang [...] Alice Rooney RN)1999 (Given - Provider: Kip Mcgregor, PARAM) influenza trivalent [id number] (FLULAVAL,FLUARIX,FLUZO NE) 45 mcg (15 mcg x [...] 4 hours PRN, nausea, vomiting, Starting on Wed10/01/24 at 0906 1342 (Given - Provider: Ana [...] Count Last Ordered Date First Ordered Date cefTRIAXone (ROCEPHIN) 2,000 mg/20 mL in sterile water (premix) 2,000 mg 2 10/09/2024 10/02/20 metroNIDAZOLE (FLAGYL) tablet 500 mg 2 12/202309/28/2024 ferrous sulfate tablet 325 mg 1 10/06/2024 folic acid (FOLVITE) tablet 1 mg 1 10/06/20 fentaNYL (DURAGESIC) 75 mcg/ hr patch 72 hour 1 patch 1 10/04/2024 HYDROmorphone (DILAUDID) tablet 2 mg 1 09/09 ondansetron (ZOFRAN) injection 4 mg 3 10/0109/27/2024 alteplase (CATHFLO) 1 mg/mL syringe (premix) 2-4 mg 1 09/30/2024 benzocaine-menthoL (CHLORASE PTIC) lozenge 1 lozenge 1 09/30/2024 enoxaparin (LOVENOX) syringe 40 mg 2 202309/28/2024 HYDROmorphone (DILAUDID) injection 0.5 mg 2 09/30/2024 09/29/2024 acetaminophen (TYLENOL) tablet 1,000 mg 2 1 11/29/2023 09/28/2024 fentaNYL (SUBLIMAZE) preserv ative free injection 50 mcg 1 09/29/2024 heparin 100 unit/mL injection 100 Units 1 1 11/29/2023 HYDROmorphone (DILAUDID) injection 0.2 mg 1 09/29/2024 HYDROmorphone (DILAUDID) injection 0.4 mg 1 09/29/2024 ibuprofen (ADVIL,MOTRIN) tablet 400 mg 2 09/28/2024 lidocaine (PF) (XYLOCAINE) 1 0 mg/mL (1 %) preservative free injection 2-10 mg 1 09/29/2024 naloxone (NARCAN) 0.4 mg/mL injection 0.04-0.4 mg 1 09/29/2024 oxyCODONE (ROXICODONE) tablet 5 mg 2 202309/28/2024 sodium chloride 0.9% flush 0.5-20 mL 1 09/09 sodium chloride 0.9% flush 15 mL 1 09/29/20 sodium chloride 0.9% infusion 1 09/29/2024 ALPRAZolam (XANAX) tablet 0.125 mg 1 2023 ALPRAZolam (XANAX) tablet 0.25 mg 2 024 cefepime (MAXIPIME) 1,000 mg /10 mL in sterile water (premix) 1,000 mg 1 09/28/2024 cefepime (MAXIPIME) 2,000 mg /20 mL in sterile water (premix) 2,000 mg 2 09/28/2024 09/27/20 cyclobenzaprine (FLEXERIL) tablet 5 mg 1 gabapentin (NEURONTIN) capsule 300 mg 1 influenza trivalent 2023- 5 (FLULAVAL,FLUARIX,FLUZONE) 45 mcg (15 mcg x 3)/0.5 mL vaccine (STANDARD age 6 months and up) 0.5 mL 1 09/28/2024 ondansetron ODT (ZOFRAN-ODT) disintegrating tablet 4 mg 1 09/28/[address] (PROTONIX) e xtended release tablet 40 mg 1 09/28/2024 polyethylene glycol (MIRALAX) packet 17 g 1 09/28/2024 propranoloL (INDERAL) tablet 40 mg 1 2023 senna-docusate (PERICOLACE) 8.6-50 mg per tablet 1 tablet 1 09/28/2024 sodium chloride 0.9% bolus 1,000 mL 1 09/28 diphenhydrAMINE (BENADRYL) 5 0 mg/mL injection 25 mg 1 09/27/2024 HYDROmorphone (DILAUDID) injection 1 mg 1 1 11/27/2023 ioversoL (OPTIRAY 350) syringe 100 mL 1 Lactated Ringer's (LR) bolus 1,000 mL 1 linezolid (ZYVOX) 600 mg/300 mL in dextrose 5% (premix) 600 mg 1 09/27/2024 meropenem (MERREM) 1,000 mg/ 50 mL in sodium chloride 0.9% (premix) 1,000 mg 2 09/27/2024 metroNIDAZOLE (FLAGYL) 500 m g/100 mL in sodium chloride (premix) 500 mg 2 09/27/2024 vancomycin (VANCOCIN) 2,000 mg in sodium chloride 0.9% 500 mL IVPB 1 09/27/2024 Lab Orders Without Results Count [...] watcher auto flagging 07/01/2013 07/01/201310/03 4:34 PM COMMERCIAL DRONE SOFTWARE DEVELOPER 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 Source: [facility]. 11/17/2023 COVID: Suspected 09/28/2024 09/28/2024 09/28/2024 2:02 AM COMMERCIAL DRONE SOFTWARE DEVELOPER C. difficile suspected 10/05/2024 10/05/202410/06 5:07 AM COMMERCIAL DRONE SOFTWARE DEVELOPER documented as of this encounter Care Teams Food And Beverage Associate Relationship Specialty Start Date End Date Silverio Germain MD [address] [address] PCP - General Emergency Medicine 05/12/23 10/02/24 documented as of this encounter
--- OUTSIDE RECORDS SUMMARY | 2024-11-11 02:10 | XMS_ITS | Encounter Summary ---
Author Organization [facility] Healthcare Address [address] [place] [address] Care Team Providers Care Derrick Man Name Role Phone Saw Louie MD Primary Care Provider [phone] Encounter Details Date Type Department Care Team (Late st Contact Info) Description 08/06/2021 12:50 PM CDT Anesthesia Event [facility] [address] [place] [address] Howard Muller MD [address] [facility] [address] [place] [address] Anesthesia Record Procedure Summary Procedure Name Responsible Anesthesiologist Anesthesia Start Time Anesthesia Stop Time EXPLORATION SCROTUM (canceled) Events No events on file. Meds * Agents No agents on file. * Blood No blood administrations on file. Lines, Drains, and Airways Type Details Placement Removal Implanted Port Orientation: Right; Location: Chest 09/29/24 1821 by Wound 09/28/24; 0830; Y; D awclinton RN; Pressure inj; Gluteal Cleft (vertical crease between the buttocks), Iliac Crest, Ischium, Buttocks 09/28/24 0830 by Alice Rooney RN documented in this encounter Social History Tobacco Use Types Packs/Day Years Used Date Smoking Tobacco: Former Smokeless Tobacco: Never Social Connection and Isolation Panel [NHANES] A nswer Date Recorded In a typical week, how many times do you talk on the phone with family, friends, or neighbors? Three times a week 08/07/2021 How often do you get togethe r with friends or relatives? Three times a week 08/07/2021 How often do you attend chur ch or religion services? Never 08/07/2021 Do you belong to any clubs o r organizations such as adventism groups, unions, fraternal or athletic groups, or [...] place to sleep or slept in a long term (including now)? 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 Male 5:38 AM DRILL PRESS OPERATOR Gender Identity Male 05/21/2022 3:19 PM CDT Sexual Orientation Straight 05/21/2022 3: 19 PM CDT documented as of this encounter OR Notes * Anesthesia Preprocedure Evaluation - Howard Muller MD - 08/06/2021 10:25 AM CDT Images from the original note were not included. Anesthesia Evaluation Shawn Casey is a 35 y.o. male Procedure(s): EXPLORATION SCROTUM Pre-Op Diagnosis Codes: * S/P urological surgery [Z98.890] Patient Active Problem List Diagnosis ??? Stricture, urethra ??? Pancreatitis ??? Arthralgia of hip ??? Complicated UTI (urinary tract infection) ??? Paraplegia (HCC) ??? HTN (hypertension) ??? Continuous leakage of urine ??? Pressure injury of skin of buttock ??? Bladder stones ??? Anemia ??? Infected fluid collection without fistula ??? S/P urological surgery ??? Hyponatremia ??? Discharge planning issues ??? Spinal abscess (CMS/HCC) (HCC) ??? Abdominal pain ??? Severe malnutrition (CMS/HCC) (HCC) ??? Sacral osteomyelitis (CMS/HCC) (HCC) History reviewed. No pertinent past medical history. Past Surgical History: Procedure Laterality Date ??? ASPIRATION OF ABSCESS HEMATOMA CYST N/A 03/31/2021 ??? IMAGE GUIDED DRAINAGE PERITONEAL OR RETROPERITONEAL FLUID COLLECTION N/A 05/22/2021 Allergies Allergen Reactions ??? Metoclopramide Anaphylaxis and Angioedema Taking? Last Dose Start Date End Date Provider calcium carbonate (TUMS) 500 mg calcium (200 mg of elemental calcium) chewable tablet 04/11/21 04/11/22 Fara Pisano MD Take 2 tablets (1,000 mg total) by mouth 4 (four) times a day as needed for indigestion carvediloL (COREG) 3.125 mg tablet -- -- ProviderSaniya MD cyclobenzaprine (FLEXERIL) 5 mg tablet 04/11/21 -- Fara Pisano MD Take 1 tablet (5 mg total) by mouth 3 (three) times a day as needed for muscle spasms gabapentin (NEURONTIN) 300 mg capsule -- -- Saniya Harp MD heparin 10 unit/mL syringe 04/11/21 -- Fara Pisano MD Administer 5 mL (50 Units total) into IV catheter as needed (keep IV catheter patent) HYDROcodone-acetaminophen (NORCO) 10-325 mg per tablet 04/11/21 -- Fara Alvarado MD Take 1 tablet by mouth every 4 (four) hours as needed for pain linaCLOtide (LINZESS) 145 mcg capsule -- -- Saniya Harp MD pantoprazole DR (PROTONIX) 40 mg EC tablet 04/11/21 04/11/22 Fara Pisano MD Take 1 tablet (40 mg total) by mouth 2 (two) times a day before breakfast and dinner polyethylene glycol (MIRALAX) 17 gram packet 04/11/21 -- Fara Pisano MD Take 1 packet (17 g total) by mouth daily as needed for constipation potassium chloride ER (KLOR-CON) 20 mEq CR tablet 04/12/21 04/12/22 Fara Alvarado MD Take 2 tablets (40 mEq total) by mouth daily senna-docusate (PERICOLACE) 8.6-50 mg 04/11/21 -- Fara Pisano MD Take 1 tablet by mouth 2 (two) times a day Ongoing Comment Chel Teran, RN 02/11/2018 2:39 PM new script of antibiotics ordered for more cipro to start when last dose is done Current Facility-Administered Medications: ??? Lactated Ringer's (LR) infusion, 30 mL/hr, intravenous, Continuous ??? linezolid (ZYVOX) 600 mg/300 mL in dextrose 5% (premix) 600 mg, 600 mg, intravenous, Q12H MARYANN, Stopped at 08/06/21 0254 ??? meropenem (MERREM) 2,000 mg/120 mL in sodium chloride 0.9% (premix) 2,000 mg, 2,000 mg, intravenous, Q8H MARYANN, Stopped at 08/06/21 0659 ??? sodium chloride 0.9% flush 0.5-20 mL, 0.5-20 mL, intra-catheter, PRN Current Outpatient Medications: ??? calcium carbonate (TUMS) 500 mg calcium (200 mg of elemental calcium) chewable tablet ??? carvediloL (COREG) 3.125 mg tablet ??? cyclobenzaprine (FLEXERIL) 5 mg tablet ??? gabapentin (NEURONTIN) 300 mg capsule ??? heparin 10 unit/mL syringe ??? HYDROcodone-acetaminophen (NORCO) 10-325 mg per tablet ??? linaCLOtide (LINZESS) 145 mcg capsule ??? pantoprazole DR (PROTONIX) 40 mg EC tablet ??? polyethylene glycol (MIRALAX) 17 gram packet ??? potassium chloride ER (KLOR-CON) 20 mEq CR tablet ??? senna-docusate (PERICOLACE) 8.6-50 mg Social History Tobacco Use Smoking Status Former Smoker Smokeless Tobacco Never Used Substance and Sexual Activity Alcohol Use Not on file Substance and Sexual Activity Drug Use Yes ??? Types: Marijuana Family History Problem Relation Age of Onset ??? Hypertension Other Family history of hypertension - (Added by TW Conv) ??? Cancer Other Family history of malignant neoplasm - (Added by TW Conv) Vitals: 08/06/21 0830 08/06/21 0900 08/06/21 0948 BP: (!) 179/103 (!) 158/105 166/94 Pulse: 83 89 90 Resp: Temp: 37.1 ??C (98.8 ??F) SpO2: 100% 100% 100% PT: No results found for requested labs within last 720 hours. INR: No results found for requested labs within last 720 hours. APTT: No results found for requested labs within last 720 hours. Hgb A1C: No results found for requested labs within last 720 hours. CBC RBC: 08/05/2021: 4.55 M/cumm RDW: No results found for requested labs within last 720 hours. MCHC: 08/05/2021: 30.6 g/dL (L) MCH: 08/05/2021: 25.1 pg (L) MCV: 08/05/2021: 82.0 fL Hct: 08/05/2021: 37.3 % (L) Hgb: 08/05/2021: 11.4 g/dL (L) WBC: 08/05/2021: 10.7 K/cumm (H) MPV: 08/05/2021: 11.0 fL Platelets: 08/05/2021: 187 K/cumm RDW CV: 08/05/2021: 17.1 % (H) RDW Sd: 08/05/2021: 51.6 fL (H) BMP Glucose: 08/06/2021: 90 mg/dL Calcium: 08/05/2021: 9.5 mg/dL Sodium: 08/05/2021: 137 mmol/L Potassium: 08/05/2021: 3.9 mmol/L CO2: 08/05/2021: 21 mmol/L (L) Chloride: 08/05/2021: 99 mmol/L BUN: 08/05/2021: 10 mg/dL Creatinine: 08/05/2021: 0.7 mg/dL DOS Physical Exam Medical history, medications, and allergies reviewed. Attestation: This PAT evaluation 08/06/2021. Airway Exam: Mallampati: III Cervical ROM: FROM Cardiovascular Exam: Rate: regular Rhythm: regular Pulmonary Exam: LCTA, bilat EENT Exam: trachea midline Dental Exam: Appears intact Current state: Patient's current state is cooperative and interactive. Anesthesia Plan ASA 3 My patient is approved for the Anesthesia Controlled Medication protocol when under care of a WEB APPLICATION DEV SPECIALIST Planned anesthesia: General Team communication plan: oral ET tube Induction: Induction: intravenous. Postoperative Plan: No plan for postoperative opioid use. No postoperative mechanical ventilation intended. Patient's planned disposition post procedure is Floor. Informed Consent: Discussed plan with WEB APPLICATION DEV SPECIALIST. Anesthesia plan and risks discussed with patient. Consent and Attending signature: I and/or my designee have discussed the anesthesia plan, benefits, possible alternatives, parental presence at time of induction (if indicated), and clinically relevant risks that may include dental injury, unintentional awareness, and/or other complications. The patient and/or parent/legal guardian understand, and agree to proceed. All questions answered. 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
--- OUTSIDE RECORDS SUMMARY | 2024-11-11 02:10 | XMS_ITS | Encounter Summary ---
Author Organization [facility] Address [address] [place] [address] Phone Care Team Providers Care Window Air Conditioner Installer Name Role Phone Saw Louie MD Primary Care Provider [phone] Encounter Details Date Type Department Care Team (Late st Contact Info) Description 08/01/2021 Telephone [facility] Infectious Diseases [address] [place] [id number] Rosalina Feliz Social History Tobacco Use [...] often do you attend chur ch or muslim services? Never 08/07/2021 Do you belong to any clubs o r organizations such as rastafari groups, unions, fraternal or athletic groups, or [...] in a penitentiary (including now)? 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 Evette Guevara Nurse Practitioner-[facility] Division of Infectious Diseases 08/01/2021 * Telephone Encounter - Shey Sorianomarbin Mireles - 08/01/2021 3:25 PM CDT Evette Talked to RN and she is aware to continue orals. I have asked them to make sure to get CT scheduledas well. Kasia * Telephone Encounter - Rosalina Feliz - 08/01/2021 1:33 PM [facility]. 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
--- OUTSIDE RECORDS SUMMARY | 2024-11-11 02:10 | XMS_ITS | Encounter Summary ---
Author Organization [facility] Healthcare Address [address] [place] [address] Care Team Providers Care Security Professional Name Role Phone Megan Arguelles MD Primary Care Provider Encounter Details Date Type Department Care Team (Latest Contact Info) Description 07/14/2022 2:44 PM CDT - 07/14/2022 11:59 PM CDT Hospital Encounter [facility] Discharge Disposition: Discharge to home or self care Social History Tobacco Use Types Packs/Day Years [...] week 08/07/2021 How often do you attend [facility] or tenriism services? Never 08/07/2021 Do you belong to any clubs o r organizations such as hoahaoism groups, unions, fraternal or athletic groups, or [...] place to sleep or slept in a half-way (including now)? 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 Gender Identity Male 05/21/2022 3:19 PM CDT Sexual Orientation Straight 05/21/2022 3: 19 PM CDT documented as of this encounter Medications at Time of Discharge acetaminophen 500 mg capsule Take 1 capsule (500 mg total) by mouth every 6 (six) hours as needed for pain 30 tablet 08/11/2021 cyclobenzaprine (FLEXERIL) 5 mg tablet Take 1 tablet (5 mg total) by mouth 3 (three) times a day as needed for muscle spasms 30 tablet 04/11/2021 fentaNYL (DURAGESIC) 50 mcg/hr Place 1 patch on the skin every third day gabapentin (NEURONTIN) 300 mg capsule Take 300 mg by mouth nightly polyethylene glycol (MIRALAX) 17 gram packetIndication s:constipation Take 1 packet (17 g total) by mouth daily as needed for constipation 04/11/2021 propranoloL (INDERAL) 40 mg tablet Take 1 tablet (40 mg total) by mouth 2 (two) times a day 60 tablet 07/14/2022 senna-docusate (PERICOLACE) 8.6-50 mgIndications:co nstipation Take 1 tablet by mouth 2 (two) times a day 04/11/2021 cloNIDine (CATAPRES-TTS) 0.3 mg/[address] 0.3 mg on the skin once a week 4 heparin 10 unit/mL syringe Administer 5 mL (50 Units total) into IV catheter as needed (keep IV catheter patent) 04/11/2021 4 HYDROcodone-acet aminophen (NORCO) 10-325 mg per tabletIndication s:Pain Take 1 tablet by mouth every 4 (four) hours as needed for pain 30 tablet 04/11/2021 4 linaCLOtide (LINZESS) 145 mcg capsule 145 mcg daily 4 NIFEdipine (NIFEdipine XL) 60 mg 24 hr tablet Take 60 mg by mouth daily 4 documented as of this encounter Discharge Disposition Disposition Code Departure Means Destination Discharge to home or self care documented in this encounter Plan of Treatment Not on file documented as of this encounter Visit Diagnoses Not on filedocumented in this encounter Additional Health Concerns Infection Onset Date Last Indicated Resolved Time 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
--- OUTSIDE RECORDS SUMMARY | 2024-11-11 02:10 | XMS_ITS | Encounter Summary ---
Author Organization [facility] Healthcare Address [address] [place] [address] Care Team Providers Care Medical Claims Processor Name Role Phone Saw Louie MD Primary Care Provider [phone] Encounter Details Date Type Department Care Team (Late st Contact Info) Description 05/02/2022 1:39 AM CDT - 05/02/2022 1:59 AM CDT Emergency [facility] Emergency Department [address] [place] [id number] Discharge Disposition: ED Dismiss - Never Arrived Social History Tobacco Use Types Packs/Day Years [...] often do you attend chur ch or taoism services? Never 08/07/2021 Do you belong to any clubs o r organizations such as mormon groups, unions, fraternal or athletic groups, or [...] place to sleep or slept in a mcc (including now)? 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
--- OUTSIDE RECORDS SUMMARY | 2024-11-11 02:10 | XMS_ITS | Encounter Summary ---
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 ciprofloxacin (CIPRO) 750 mg tabletIndications: Skin/Soft Tissue Infection Take 1 tablet (750 mg total) by mouth 2 (two) times a day for 13 doses 13 tablet 08/11/2021 1 documented in this encounter Discharge Disposition Disposition Code Departure Means Destination Discharge to alf facility Other documented in this encounter Progress Notes * Devan Woods MD - 08/11/2021 3:51 PM CDT [employer] Daily Progress Note Subjective Interval Events: FARNAZ. Reports that he had one medium-size stool yesterday after aggressive bowel regimen, improvedabdominal pain. Looks forward to discharge to facility today. Expressed interest in pursuing rehab and procurement specialist, possible discussion of colostomy given h/o incontinence. Objective Vitals: 24hr Min/Max: Temp Min: 36.5 ??C (97.7 ??F) Max: 36.8 ??C (98.2 ??F) Pulse Min: 66 Max: 123 BP Min: 97/51 Max: 224/116 Resp Min: 18 Max: 18 SpO2 Min: 95 % Max: 100 % Most Recent : Vitals: 08/11/21 1408 BP: 161/86 Pulse: 66 Resp: 18 Temp: 36.5 ??C (97.7 ??F) SpO2: 95% I/O last 2 completed shifts: In: 20 [I.V.:20] Out: 2635 [Urine:2635] No intake/output data recorded. Physical Exam: General: Not in distress, appears comfortable HEENT: Normocephalic, no conjunctival pallor, no scleral icterus Cardiac: Normal rate; regular rhythm; audible S1 and S2; no murmurs, rubs, or gallops; 2+ radial pulses; no LE edema; Pulm: clear to auscultation bilaterally; no wheezes, rales, or rhonchi GI/Abd: Soft, nontender, nondistended MSK: Normal bulk and tone, no joint effusions or major deformities Skin: No rash or bruises Extremities: bilateral BKA Neuro: AAO x 4, CN II-XII grossly intact Lab/Radiology/Diagnostic Review: I have reviewed the laboratory and imaging findings. Assessment Plan #Lumbar Sacral Discitis/Osteomyelitis w/ epidural abscess: #R paraspinal multiloculated fluid collection: #Fevers: Pt has multiple sources for infection ie sacral decubitus ulcer, foreign lines/drains, recent urologic surgery, dirty UA, discitis, R paraspinal loculated fluid collection. Challenging to obtain source control in patient. Currently spiking fevers through doxycycline 100mg BID, Augmentin 875-125mg BID, and fluconazole. CT A&P noting progression of sacral decubitus ulcer w/ locules of gas extending to the level of the sacrum (locules of gas noted previously). Interval decrease in size of R paraspinal fluid collection now measuring 6.4 x 1.8 cm, previously 11.1 x 3.2 cm. IR aspirated the fluid and we are waiting on cultures. ??- ACCS- no plan for debridement of sacrum - Blood culture X2, C diff, CXR - Abx's: Daptomycin, Meropenam (08/06-08/10) - ID following - Paraspinal cx NGTD - Wound culture positive for morganella and psedomonas, susceptible to cipro; ID discharge recs aredoxycycline 100 mg BID, ciprofloxacin 750 mg BID for 2 weeks ?? #Concern for scrotal infection: #Ileocecal augmentation cystoplasty??(2011) s/p urethroplasty and penile closure: Some concern for scrotal infection, but CT reassuring. Endorses scrotal discharge, mostly serosanguinous. CT A&P w/o evidence of fourneir's. Urology opened his scrotal incision for drainage and is currently following. - Urology following - UA, Urine culture growing morganella - Abx's per above ?? #L Abdominal percutaneous drain (resolved) CT A&P noting resolved L paracolic gutter fluid collection. Pt currently has a L abd percutaneous drain that was placed 05/22/21, which can now be removed. IR pulled the drain at the bedside on 08/06. ?? #Paraplegia #Pressure injury to buttock and thigh: Pt does not have sensation below the level of the nipple. - Pain control: Gabapentin 300mg QHS, Flexeril 6mg TID PRN, Tylenol 1g TID PRN, Oxy PRN - Wound consult - Pressure bed - Home 50mcg fentanyl patch q72h #Constipation Patient reports no BM for 3 days on 08/08/21. Reports that at home he tends to have diarrhea/liquid stool. - miralax increase to BID - senna docusate BID - Milk of Mag 30 mL once on 08/10 - Bisacodyl 10 mg suppository on 08/10 - Resume home Linzess 145 mcg daily on 08/10 #HTN: - Holding home Coreg - Amlodipine 10 mg yesterday, discontinued as patient BP became normal to low after resolution of acute pain Code Status: Full Code Diet: Adult Diet Regular DVT Prophylaxis: Heparin Dispo: Return to SNF Devan Woods PGY-1 Resident 08/11/2021 3:52 PM Cosigned by Harvey Tierney MD at 08/11/2021 6:03 PM CDT Associated attestation - Harvey Tierney MD - 08/11/2021 6:03 PM CDT ATTENDING DOCUMENTATION I have seen and examined the patient on 08/11/2021. I agree with the findings and plan of care as documented in the resident's/fellow's note. and as discussed with the resident/fellow. Harvey Tierney MD * Daysi Lemon RN - 08/11/2021 1:39 PM CDT 08/11/21 4798 Discharge Summary Chart reviewed For Medical Necessity Does patient have a planned readmission to hospital planned? No Discharge Disposition ICF in SNF [facility], [facility] [place], [place] Facility Contact Number [phone] Discharge Records Transfer Form Completed;Chart Copied Discharge Additional Assistance Does the patient need discharge transport arranged? Yes Has discharge transport been arranged? Yes Details of Transportation [facility] # What day is the transport expected? 08/11/21 Discharge Transportation Communication Mode of transport has [...] discharge at this time. Patient has been acceptedto return to [place], [place] CM spoke with the patient, admissions, medicalteam and RN in regards to discharge planning and all are agreeable to discharge. Post-acute care transfer packet completed and will be sent with the patient. RN provided with report number to nurses station. [facility] has accepted patient to return today. RN to call report to [phone] Discharge orders/summary faxed to [phone] [facility] for discharge transportation. Trip #[id number] Scheduled for 3:30 p.m. Mode of transport has been discussed with the patient/family, MD, nursing staff. All are agreeable to plan and understand their responsibilities to ensure the safe transfer. Patient/family informed patient may require ambulance transport. electronics engineering manager informed patient/family that even if the patient's insurance benefit includes ambulance transport, it may not cover the full cost of transportation. The patient may be responsible for any out of pocket cost, including mileage beyond the nearest appropriate facility. Patient/family voiced understanding. , * Megan Salomon MD - 08/11/2021 7:59 AM CDT Urology Progress Note Subjective Patient is a 35 y.o. male with T4/T5 SCI c/b NGB s/p ileocecal augmentation cystoplasty in 2011, now POD6 from second-stage urethroplasty and penile closure at an OSH.??WBC 11, but clinical exam and CT not suggestive of pepe's. CT read of worsening sacral decubitus ulcer. S/p bedside scrotal I&D, packed with iodoform Interval History: Patient was seen and examined this morning Hypertension overnight, but afebrile Denies pain, n/v Denies fevers, chills RN repacked wound overnight Objective Recent Vitals(24hr Range): Vitals: 08/10/21 1916 08/10/21 2113 08/10/21 2330 08/10/21 2331 BP: (!) 183/119 (!) 158/108 135/81 BP Location: Left arm Left arm Left arm Patient Position: HOB 30 degrees Pulse: 69 86 123 104 Resp: 18 Temp: 36.8 ??C (98.2 ??F) TempSrc: Oral SpO2: 100% Weight: Height: I and Os: I/O last 3 completed shifts: In: 1610 [P.O.:1350; I.V.:20; IV Piggyback:240] Out: 2985 [Urine:2985] No intake/output data recorded. I/O last 2 completed shifts: In: 20 [I.V.:20] Out: 2635 [Urine:2635] No intake/output data recorded. Physical exam:?? GENERAL: Alert and oriented,??laying??in bed, no acute distress. HEENT: Sclerae anicteric. EOMI. Mucous membranes moist. NECK: Supple, full ROM RESPIRATORY: Normal effort on room air CARDIOVASCULAR:??RRR ABDOMINAL: Soft,??obese :??catheter in umbilical channel draining clear, yellow urine. Urethral meatus closed with chromic suture, ventral penile incision healing well, scrotal edema w/o fluctuance or crepitus. Transverseanterior scrotal incision packing removed. Edges appear healthy with no induration or erythema. Moderate SS drainage. Re-packed with iodoform and covered dry. MUSCULOSKELETAL:??BLE amputations NEUROLOGICAL: Alert & oriented, speech fluent and appropriate.??paraplegic PSYCH: Mood and affect normal?? Lab/Radiology/Diagnostic Review: Chem/LFT Lab History Some values may be hidden. Unless noted otherwise, only the newest values recorded on each date aredisplayed. Labs-Chem/LFT Latest Ref Range 08/07/21 08/08/21 08/09/21 08/10/21 Sodium 135 - 145 mmol/L 137 139 137 137 Creatinine 0.80 - 1.30 mg/dL 0.57 (A) 0.74 (A) 0.68 (A) 0.52 (A) Bilirubin, total AST ALT CrCl- Actual Body Weight (Cockcroft-Gault) 307.4 236.8 257.6 336.9 (A) Abnormal value Hematology Lab History Some values may be hidden. Unless noted otherwise, only the newest values recorded on each date aredisplayed. Labs - Hematology Latest Ref Range 08/07/21 08/08/21 08/09/21 08/10/21 WBC 3.8 - 9.9 K/cumm 7.6 6.8 6.3 6.3 Total Hb, POC 13.0 - 17.5 g/dL 10.0 (A) 9.9 (A) 10.7 (A) 11.8 (A) Hct 38.9 - 50.3 % 31.8 (A) 31.1 (A) 33.4 (A) 36.5 (A) Plt 150 - 400 K/cumm 199 221 232 287 Neutrophil abs Lymphocytes, abs (A) Abnormal value Assessment /Plan Principal Problem: Sacral osteomyelitis (CMS/HCC) (HCC) Active Problems: S/P urological surgery 35 y.o. male with T4/T5 SCI c/b NGB s/p ileocecal augmentation cystoplasty in 2011, now POD6 from second-stage urethroplasty and penile closure at an OSH.??WBC 11 on arrival, but clinical exam and CTnot suggestive of pepe's. CT read of worsening sacral decubitus ulcer. Patient is s/p bedside I&D of transverse anterior scrotal incision. UCx and wound cxs growing morganella. BCx NGTD. De-escalated from antony/dapto to cipro based on susceptibilities. Recommendations: -??serial exams - Pack scrotal wound BID - Appreciate ID recommendations, antibiotics per ID - Urology will continue to follow ?? The above plan has or will be discussed with Urology Attending, Dr. Young. Thank you for allowing us to participate in the care of this patient. For any questions or concerns, please page Urology through the tomato pulper operator. Megan Salomon MD 08/11/2021 Cosigned by Harvey Young MD at 08/11/2021 8:55 AM CDT * Lance Ruiz MD - 08/10/2021 4:37 PM CDT Infectious Disease Daily Progress ID team: General 2 Contact Information: Please see EPIC Treatment Team listing for up-to-date contact information. Subjective Chief complaint of scrotal swelling Interval History: History obtained from patient, EMR, patient's family and other providers (physicians, nurses etc). Swelling improved. Less red. Objective Anti-infectives (From admission, onward) Start Dose/Rate Route Frequency Ordered Stop 08/06/21 1345 DAPTOmycin (CUBICIN) 50 mg/mL sodium chloride 0.9% 500 mg 6 mg/kg ?? 85.9 kg (Adjusted) 300 mL/hr over 2 Minutes intravenous Every 24 hours scheduled 08/06/21 1300 08/05/21 2200 meropenem (MERREM) 2,000 mg/120 mL in sodium chloride 0.9% (premix) 2,000 mg 2,000 mg over 30 Minutes intravenous Every 8 hours scheduled 08/05/212004 Vitals: 24hr Min/Max: Temp Min: 36.8 ??C (98.2 ??F) Max: 36.8 ??C (98.2 ??F) Pulse Min: 67 Max: 77 BP Min: 137/78 Max: 224/116 Resp Min: 16 Max: 16 SpO2 Min: 96 % Max: 98 % Most Recent : Vitals: 08/10/21 1555 BP: (!) 224/116 Pulse: Resp: Temp: SpO2: I/O last 2 completed shifts: In: 1600 [P.O.:1350; IV Piggyback:250] Out: 1215 [Urine:1215] I/O this shift: In: - Out: 1300 [Urine:1300] PICC Single Lumen 05/25/21 Non-tunneled Power Right Upper arm;Brachial (Active) Site Assessment Clean and dry;Color appropriate for ethnicity 08/10/21914 Dressing Type CHG Dressing 08/10/21914 Dressing Status Clean, dry, intact 08/10/21914 Dressing Intervention Dressing changed;Label applied 08/06/21 1700 Dressing Change Due 08/13/21 08/10/21914 Lumen #1 Status No blood return;Flushes easily;Infusing 08/10/21914 Lumen #1 Line Interventions Declotting agent instilled (see MAR) 08/08/212005 Line Necessity Reason Reviewed With Care Team Needed upon discharge for chcf use 08/08/21 0936 Number of days: 77 Peripheral IV 08/05/21 18 G Left Antecubital (Active) Site Assessment Clean and dry;Color appropriate for ethnicity 08/10/21914 IV Line Status Single Flushes easily;Saline locked 08/10/21914 Dressing Type Transparent 08/10/21914 Dressing Status Clean, dry, intact 08/10/21914 Dressing Change Due 08/12/21 08/10/21914 Number of days: 5 Suprapubic Catheter Latex (Active) Site Description Color appropriate for ethnicity;Clean;Dry 08/10/211309 Catheter Status Open to gravity drainage 08/10/211309 Dressing Status Clean, dry, intact 08/10/211309 Dressing Intervention Dressing changed 08/10/21 0230 Dressing Type Split gauze 08/10/211309 Dressing Change Due 08/11/21 08/10/211309 Urine Collection Container Standard drainage bag 08/10/211309 Securement Method Securement device 08/10/211309 Urinary Flush Intake (mL) 100 mL 08/10/21 023 Urinary tube output (mL) 1300 mL 08/10/211309 Urinary Tube Net Output (mL) 1300 mL 08/10/21 131 Number of days: 80 [REMOVED] PICC Single Lumen 03/26/21 Non-tunneled Left Upper arm (Removed) Number of days: 43 [REMOVED] PICC Double Lumen 01/16/19 Non-tunneled Power #1 Red, #2 Purple, Right Brachial;Upper arm(Removed) Number of days: 7 [REMOVED] Peripheral IV 01/10/19 20 G Left Antecubital (Removed) Number of days: 4 [REMOVED] Peripheral IV 01/14/19 22 G Right Forearm (Removed) Number of days: 2 [REMOVED] Peripheral IV 05/13/21 18 G Right Antecubital (Removed) Number of days: 14 [REMOVED] Peripheral IV 05/22/21 18 G Right Antecubital (Removed) Number of days: 5 [REMOVED] Closed/Suction/Open Drain 1 LLQ 12 Fr. (Removed) Number of days: 76 [REMOVED] Urostomy Arthur-bladder Mid-line (Removed) Number of days: [REMOVED] Urethral Catheter Non-latex 14 Fr. (Removed) Number of days: 42 [REMOVED] Suprapubic Catheter 14 Fr. (Removed) Number of days: 4 [REMOVED] Suprapubic Catheter Non-latex 14 Fr. (Removed) Number of days: 2 [REMOVED] Suprapubic Catheter Latex 16 Fr. (Removed) Number of days: 1 [REMOVED] Suprapubic Catheter 16 Fr. (Removed) Number of days: 795 PE: Physical Exam Constitutional: Well developed. Well nourished. Alert and cooperative. In no acute distress. Head: Normocephalic. Atraumatic. Cardiac: Normal rate, regular rhythm. Normal S1/S2. No murmurs, rubs, or gallops. Resp: Clear to auscultation bilaterally. No wheezes, rhonchi, or rales. Normal work of breathing. Abdomen: Soft. Non- distended. Non- tender. Positive bowel sounds. No guarding or rebound tenderness. Psychiatric: Appropriate affect and behavior. Extremities: No sigificant deformity or joint abnormality. No edema. Peripheral pulses intact. No varicosities. MSK: SDU without discharge, ulcerations, and or erythema; good granulation tissue, some tunnelling but no exposed bone Neuro: No focal neurologic deficits. : R sided scrotal edema and erythema improved; with packing in place and dressing Lab/Radiology/Diagnostic Review: Recent Labs Lab Units 08/09/212103 WBC K/cumm 6.3 HEMOGLOBIN g/dL 10.7* HEMATOCRIT % 33.4* PLATELETS K/cumm 232 Recent Labs Lab Units 08/09/212103 SODIUM mmol/L 137 POTASSIUM PLASMA mmol/L 4.5 CHLORIDE mmol/L 106 CO2 mmol/L 26 ANIONGAP mmol/L 5 GLUCOSE mg/dL 96 BUN SERUM mg/dL 7* CREATININE mg/dL 0.68* CALCIUM mg/dL 8.6 Lab Results Lab Value Date/Time SEDRATE 76 (H) 08/05/20212111 Recent Labs Lab Units 08/05/212111 CRP mg/L 241.5* No components found for: URINE Lab Results Component Value Date MICROBIOLOGY Preliminary Report: No growth to date. 08/07/2021 MICROBIOLOGY Preliminary Report: No growth of fungus to date 08/07/2021 I have reviewed the above lab results. Imaging review: IR Fluid Aspiration Final Result 1. Right posterior paraspinal fluid collection aspiration under CT guidance. Approximately 0.3 mL sanguinous fluid was collected and sent for Gram stain and culture. Insufficient aspirate was obtained for additional testing. Dictated by: Mono Monroe M.D. The radiology attending physician has personally reviewed this study, and had reviewed and/or edited this written report and agrees with it. Electronically signed by: Terrence Bennett M.D. IR Follow Up Inpatient Final Result Catheter was removed successfully at bedside, patient tolerated the procedure well there were no apparent complications. PLAN: No further follow-up is required with VIR at this time as patient's percutaneous abscess drain was successfully removed at bedside. The dressing is to remain in place for 24 hours, at that time it can be removed and replaced daily until a scab forms over the catheter exit site. Once a scab forms over the catheter exit site, the area may be left open to air. If questions arise, please contact us by calling [phone]. Electronically signed by: Jenna Oakley CT Abdomen Pelvis W Contrast Final Result 1. Interval progression of sacral decubitus ulcer, with locules of gas extending to the level of the sacrum. Redemonstrated extensive bony changes of the sacrum in keeping with chronic osteomyelitis. 2. Interval decrease in size of collection posterior to the right paraspinal muscles at the level of L3. 3. Sinus tracts extending from the posterior thigh skin to the left ischium and left femur, likely unchanged. 4. Unchanged skin thickening of the posterior left thigh, predominantly medially, likely inflammatory. No discrete fluid collection. 5. Interval increase in size of small fluid collection abutting the membranous urethra. This is favored to represent a urethral diverticulum, rather than an abscess. 6. Left abdominal percutaneous drain, with resolved left paracolic gutter collection. 7. Redemonstrated multiple cystic lesions of the kidneys, which are unchanged since 05/27/2021, but increased in size since 02/11/2012. Continued attention on follow-up imaging is recommended. 8. Scrotal edema without perifascial gas/tracking fascial gas to suggest CT surrogates of Pepe's gangrene. Dictated by: Zander Bojorquez M.D. The radiology attending physician has personally reviewed this study, and had reviewed and/or edited this written report and agrees with it. Electronically signed by: Edgar Hunter M.D. Results for orders placed during the hospital encounter of 03/28/21 XR Chest Pa Lateral 2 Views Narrative EXAMINATION: 2 view chest radiograph Impression Comparison is made to prior study of 04/06/2021. In the interval, the lung volumes are slightly smaller. The lungs are clear. Specifically, no pulmonary edema or pneumonia. No pleural effusion or pneumothorax. Heart size and mediastinal contour are normal. On the current study the tip of the peripherally inserted central catheter is better visualized and can be seen overlying the superior vena cava. Electronically signed by: Austen Garcia M.D. Assessment/Plan Scrotal cellulitis- post-op SSTI: Morganella, Pseudomonas, mixed skin/ bacteria. Change to doxy 100 mg bid, cipro 750 mg bid after confirming no QTc prolongation on EKG. Change suprapubic catheter while on abx to sterilize urine. Plan on 2 weeks total; potentially longer for spinal osteomyelitis and paraspinal fluid collection. Spinal osteomyelitis with sacral decubitus - culture negative with complex paraspinal fluid collection. Improved collection; tried aspiration but minimal fluid aspirated. Culture negative to date. Was on doxy + augmentin after prolonged IV antibiotic course. Fluid collection improving, but bony changes progressed on MRI. On review with radiology, the bony changes may be spinal Charcot arthropathy +/- radiological lag. Could stop antibiotics after treatment for scrotal cellulitis - will discuss with his ID clinic providers. I have discussed this case and my recommendations with Resident on team. Please call the ID consulting fellow/physician number listed under treatment team in the summary tab in Tour Desk if any additional questions. After hours, please call ID fellow executive personal assistant at [phone] for urgent questions. * Allen Sanches MD - 08/10/2021 1:19 PM CDT Urology Progress Note Subjective Patient is a 35 y.o. male with T4/T5 SCI c/b NGB s/p ileocecal augmentation cystoplasty in 2011, now POD6 from second-stage urethroplasty and penile closure at an OSH.??WBC 11, but clinical exam and CT not suggestive of pepe's. CT read of worsening sacral decubitus ulcer. S/p bedside scrotal I&D, packed with iodoform Interval History: Patient was seen and examined this morning No acute events overnight, vitals stable and afebrile Denies pain, n/v Denies fevers, chills WBC 6.3 RN repacked wound overnight Objective Recent Vitals(24hr Range): Vitals: 08/09/21 0410 08/09/21 1340 08/09/21 20508/10/21 0545 BP: 150/99 155/94 160/95 137/78 BP Location: Left arm Left arm Left arm Left arm Patient Position: HOB 30 degrees Lying HOB 30 degrees HOB 30 degrees Pulse: 72 70 67 77 Resp: 18 18 16 16 Temp: 36.4 ??C (97.5 ??F) 36.7 ??C (98.1 ??F) 36.8 ??C (98.2 ??F) 36.8 ??C (98.2 ??F) TempSrc: Oral Oral Oral Oral SpO2: 100% 99% 96% 96% Weight: Height: I and Os: I/O last 3 completed shifts: In: 2590 [P.O.:2100; IV Piggyback:490] Out: 1895 [Urine:1895] I/O this shift: In: - Out: 1300 [Urine:1300] I/O last 2 completed shifts: In: 1600 [P.O.:1350; IV Piggyback:250] Out: 1215 [Urine:1215] I/O this shift: In: - Out: 1300 [Urine:1300] Physical exam:?? GENERAL: Alert and oriented,??laying??in bed, no acute distress. HEENT: Sclerae anicteric. EOMI. Mucous membranes moist. NECK: Supple, full ROM RESPIRATORY: Normal effort on room air CARDIOVASCULAR:??RRR ABDOMINAL: Soft,??obese :??catheter in umbilical channel draining clear, yellow urine. Urethral meatus closed with chromic suture, ventral penile incision healing well, scrotal edema w/o fluctuance or crepitus. Transverseanterior scrotal incision packing removed. Edges appear healthy with no induration or erythema. Moderate SS drainage. Re-packed with iodoform and covered dry. MUSCULOSKELETAL:??BLE amputations NEUROLOGICAL: Alert & oriented, speech fluent and appropriate.??paraplegic PSYCH: Mood and affect normal?? Lab/Radiology/Diagnostic Review: Chem/LFT Lab History Some values may be hidden. Unless noted otherwise, only the newest values recorded on each date aredisplayed. Labs-Chem/LFT Latest Ref Range 08/06/21 08/07/21 08/08/21 08/09/21 Sodium 135 - 145 mmol/L 134 (A) 137 139 137 Creatinine 0.80 - 1.30 mg/dL 0.61 (A) 0.57 (A) 0.74 (A) 0.68 (A) Bilirubin, total AST ALT CrCl- Actual Body Weight (Cockcroft-Gault) 287.2 307.4 236.8 257.6 (A) Abnormal value Hematology Lab History Some values may be hidden. Unless noted otherwise, only the newest values recorded on each date aredisplayed. Labs - Hematology Latest Ref Range 08/06/21 08/07/21 08/08/21 08/09/21 WBC 3.8 - 9.9 K/cumm 8.0 7.6 6.8 6.3 Total Hb, POC 13.0 - 17.5 g/dL 10.4 (A) 10.0 (A) 9.9 (A) 10.7 (A) Hct 38.9 - 50.3 % 33.1 (A) 31.8 (A) 31.1 (A) 33.4 (A) Plt 150 - 400 K/cumm 154 199 221 232 Neutrophil abs Lymphocytes, abs (A) Abnormal value Assessment /Plan Principal Problem: Sacral osteomyelitis (CMS/HCC) (HCC) Active Problems: S/P urological surgery 35 y.o. male with T4/T5 SCI c/b NGB s/p ileocecal augmentation cystoplasty in 2011, now POD6 from second-stage urethroplasty and penile closure at an OSH.??WBC 11 on arrival, but clinical exam and CTnot suggestive of pepe's. CT read of worsening sacral decubitus ulcer. Patient is s/p bedside I&D of transverse anterior scrotal incision. UCx and wound cxs growing morganella. BCx NGTD. Currently on antony, dapto. Recommendations: - Follow up urine cultures, blood cultures susceptibilities -??serial exams - Pack scrotal wound BID - Appreciate ID recommendations, antibiotics per ID - Urology will continue to follow ?? The above plan has or will be discussed with Urology Attending, Dr. Young. Thank you for allowing us to participate in the care of this patient. For any questions or concerns, please page Urology through the tomato pulper operator. Allen Sanches MD 08/10/2021 Cosigned by Harvey Young MD at 08/11/2021 8:55 AM CDT * Devan Woods MD - 08/10/2021 10:00 AM CDT [facility] Daily Progress Note Subjective Interval Events: NAEON. Reports continuing constipation, no BM in 3-4 days despite bowel regimen. Susceptibilities back; pseudomonas and morganella both susceptible to ciprofloxacin. Patient looks forward to returning to facility soon, wants to make sure nurses there will be able to handle his scrotal wound care. Objective Vitals: 24hr Min/Max: Temp Min: 36.8 ??C (98.2 ??F) Max: 36.8 ??C (98.2 ??F) Pulse Min: 67 Max: 77 BP Min: 137/78 Max: 224/116 Resp Min: 16 Max: 16 SpO2 Min: 96 % Max: 98 % Most Recent : Vitals: 08/10/21 1830 BP: (!) 178/114 Pulse: Resp: Temp: SpO2: I/O last 2 completed shifts: In: 1590 [P.O.:1350; IV Piggyback:240] Out: 1650 [Urine:1650] No intake/output data recorded. Physical Exam: General: Not in distress, appears comfortable HEENT: Normocephalic, no conjunctival pallor, no scleral icterus Cardiac: Normal rate; regular rhythm; audible S1 and S2; no murmurs, rubs, or gallops; 2+ radial pulses; no LE edema; Pulm: clear to auscultation bilaterally; no wheezes, rales, or rhonchi GI/Abd: Soft, nontender, nondistended MSK: Normal bulk and tone, no joint effusions or major deformities Skin: No rash or bruises Extremities: bilateral BKA Neuro: AAO x 4, CN II-XII grossly intact Lab/Radiology/Diagnostic Review: I have reviewed the laboratory and imaging findings. Assessment Plan #Lumbar Sacral Discitis/Osteomyelitis w/ epidural abscess: #R paraspinal multiloculated fluid collection: #Fevers: Pt has multiple sources for infection ie sacral decubitus ulcer, foreign lines/drains, recent urologic surgery, dirty UA, discitis, R paraspinal loculated fluid collection. Challenging to obtain source control in patient. Currently spiking fevers through doxycycline 100mg BID, Augmentin 875-125mg BID, and fluconazole. CT A&P noting progression of sacral decubitus ulcer w/ locules of gas extending to the level of the sacrum (locules of gas noted previously). Interval decrease in size of R paraspinal fluid collection now measuring 6.4 x 1.8 cm, previously 11.1 x 3.2 cm. IR aspirated the fluid and we are waiting on cultures. ??- ACCS- no plan for debridement of sacrum - Blood culture X2, C diff, CXR - Abx's: Daptomycin, Meropenam (08/06- ) - ID following - Paraspinal cx NGTD - Wound culture positive for morganella and psedomonas, susceptible to cipro; appreciate final ID recs for narrowing antibiotics tomorrow ?? #Concern for scrotal infection: #Ileocecal augmentation cystoplasty??(2011) s/p urethroplasty and penile closure: Some concern for scrotal infection, but CT reassuring. Endorses scrotal discharge, mostly serosanguinous. CT A&P w/o evidence of fourneir's. Urology opened his scrotal incision for drainage and is currently following. - Urology following - UA, Urine culture growing morganella - Abx's per above - Final uro recs for management of wounds at facility tomorrow ?? #L Abdominal percutaneous drain (resolved) CT A&P noting resolved L paracolic gutter fluid collection. Pt currently has a L abd percutaneous drain that was placed 05/22/21, which can now be removed. IR pulled the drain at the bedside on 08/06. ?? #Paraplegia #Pressure injury to buttock and thigh: Pt does not have sensation below the level of the nipple. - Pain control: Gabapentin 300mg QHS, Flexeril 6mg TID PRN, Tylenol 1g TID PRN, Oxy PRN - Wound consult - Pressure bed - Home 50mcg fentanyl patch q72h #Constipation Patient reports no BM for 3 days on 08/08/21. Reports that at home he tends to have diarrhea/liquid stool. - miralax increase to BID - senna docusate BID - Milk of Mag 30 mL once on 08/10 - Bisacodyl 10 mg suppository on 08/10 - Resume home Linzess 145 mcg daily on 08/10 #HTN: -Coreg 3.25mg BID Code Status: Full Code Diet: Adult Diet Regular DVT Prophylaxis: Heparin Dispo: Return to [facility] Devan Woods PGY-1 Resident 08/10/2021 7:09 PM Cosigned by Harvey Tierney MD at 08/10/2021 8:03 PM CDT Associated attestation - Harvey Tierney MD - 08/10/2021 8:03 PM CDT ATTENDING DOCUMENTATION I have seen and examined the patient on 08/10/2021. I agree with the findings and plan of care as documented in the resident's/fellow's note. and as discussed with the resident/fellow. Harvey Tierney MD * Torrey Mullen MD - 08/09/2021 10:32 AM CDT [facility] Daily Progress Note Subjective Interval Events: NAEON. Scrotal wound is packed, denies new pain and VSS and afebrile overnight. Awaiting pseudomonas susceptibilities. Still has not had BM with current regimen Objective Vitals: 24hr Min/Max: Temp Min: 36.4 ??C (97.5 ??F) Max: 36.9 ??C (98.4 ??F) Pulse Min: 72 Max: 83 BP Min: 135/74 Max: 150/99 Resp Min: 18 Max: 18 SpO2 Min: 97 % Max: 100 % Most Recent : Vitals: 08/09/21 0410 BP: 150/99 Pulse: 72 Resp: 18 Temp: 36.4 ??C (97.5 ??F) SpO2: 100% I/O last 2 completed shifts: In: 990 [P.O.:750; IV Piggyback:240] Out: 680 [Urine:680] I/O this shift: In: 10 [IV Piggyback:10] Out: - Physical Exam: General: Not in distress, appears comfortable HEENT: Normocephalic, no conjunctival pallor, no scleral icterus Cardiac: Normal rate; regular rhythm; audible S1 and S2; no murmurs, rubs, or gallops; 2+ radial pulses; no LE edema; Pulm: clear to auscultation bilaterally; no wheezes, rales, or rhonchi GI/Abd: Soft, nontender, nondistended MSK: Normal bulk and tone, no joint effusions or major deformities Skin: No rash or bruises Extremities: bilateral BKA Neuro: AAO x 4, CN II-XII grossly intact Lab/Radiology/Diagnostic Review: I have reviewed the laboratory and imaging findings. Assessment Plan #Lumbar Sacral Discitis/Osteomyelitis w/ epidural abscess: #R paraspinal multiloculated fluid collection: #Fevers: Pt has multiple sources for infection ie sacral decubitus ulcer, foreign lines/drains, recent urologic surgery, dirty UA, discitis, R paraspinal loculated fluid collection. Challenging to obtain source control in patient. Currently spiking fevers through doxycycline 100mg BID, Augmentin 875-125mg BID, and fluconazole. CT A&P noting progression of sacral decubitus ulcer w/ locules of gas extending to the level of the sacrum (locules of gas noted previously). Interval decrease in size of R paraspinal fluid collection now measuring 6.4 x 1.8 cm, previously 11.1 x 3.2 cm. IR aspirated the fluid and we are waiting on cultures. ??- ACCS- no plan for debridement of sacrum - Blood culture X2, C diff, CXR - Abx's: Daptomycin, Meropenam (08/06- ) - ID following - Paraspinal cx NGTD - Wound culture positive for morganella and psedomonas, will f/u susceptibility ?? #Concern for scrotal infection: #Ileocecal augmentation cystoplasty??(2011) s/p urethroplasty and penile closure: Some concern for scrotal infection, but CT reassuring. Endorses scrotal discharge, mostly serosanguinous. CT A&P w/o evidence of fourneir's. Urology opened his scrotal incision for drainage and is currently following. - Urology following - UA, Urine culture growing morganella - Abx's per above ?? #L Abdominal percutaneous drain (resolved) CT A&P noting resolved L paracolic gutter fluid collection. Pt currently has a L abd percutaneous drain that was placed 05/22/21, which can now be removed. IR pulled the drain at the bedside on 08/06. ?? #Paraplegia #Pressure injury to buttock and thigh: Pt does not have sensation below the level of the nipple. - Pain control: Gabapentin 300mg QHS, Flexeril 6mg TID PRN, Tylenol 1g TID PRN, Oxy PRN - Wound consult - Pressure bed - Home 50mcg fentanyl patch q72h #Constipation Patient reports no BM for 3 days on 08/08/21. Reports that at home he tends to have diarrhea/liquid stool. - miralax increase to BID. If still no BM will add suppository and consider adding back Linzess - senna docusate BID #HTN: -Coreg 3.25mg BID Code Status: Full Code Diet: Adult Diet Regular DVT Prophylaxis: Heparin Dispo: TBD Torrey Mullen Internal Medicine PGY-3 08/09/2021 10:32 AM Cosigned by Harvey Tierney MD at 08/10/2021 8:06 AM CDT * Allen Sanches MD - 08/09/2021 8:04 AM CDT Images from the original note were not included. Urology Progress Note Subjective Patient is a 35 y.o. male with T4/T5 SCI c/b NGB s/p ileocecal augmentation cystoplasty in 2011, now POD5 from second-stage urethroplasty and penile closure at an OSH.??WBC 11, but clinical exam and CT not suggestive of pepe's. CT read of worsening sacral decubitus ulcer. S/p bedside scrotal I&D, packed with iodoform Interval History: Patient was seen and examined this morning No acute events overnight, vitals stable and afebrile Denies pain, n/v Denies fevers, chills WBC 9.9 RN repacked wound overnight Objective Recent Vitals(24hr Range): Vitals: 08/08/21 0615 08/08/21 1540 08/08/21200508/09/21 0410 BP: 124/66 137/74 135/74 150/99 BP Location: Left arm Left arm Left arm Left arm Patient Position: HOB 30 degrees HOB 30 degrees HOB 30 degrees Pulse: 83 83 78 72 Resp: 18 18 18 18 Temp: 37 ??C (98.6 ??F) 36.7 ??C (98.1 ??F) 36.9 ??C (98.4 ??F) 36.4 ??C (97.5 ??F) TempSrc: Oral Oral Oral Oral SpO2: 100% 100% 97% 100% Weight: Height: I and Os: I/O last 3 completed shifts: In: 2780 [P.O.:1300; I.V.:1000; IV Piggyback:480] Out: 930 [Urine:930] No intake/output data recorded. I/O last 2 completed shifts: In: 990 [P.O.:750; IV Piggyback:240] Out: 680 [Urine:680] No intake/output data recorded. Physical exam:?? GENERAL: Alert and oriented,??laying??in bed, no acute distress. HEENT: Sclerae anicteric. EOMI. Mucous membranes moist. NECK: Supple, full ROM RESPIRATORY: Normal effort on room air CARDIOVASCULAR:??RRR ABDOMINAL: Soft,??obese :??catheter in umbilical channel draining clear, yellow urine. Urethral meatus closed with chromic suture, ventral penile incision healing well, scrotal edema w/o fluctuance or crepitus. Transverseanterior scrotal incision packing removed. Edges appear healthy with no induration or erythema. Moderate SS drainage. Re-packed with iodoform and covered dry. MUSCULOSKELETAL:??BLE amputations NEUROLOGICAL: Alert & oriented, speech fluent and appropriate.??paraplegic PSYCH: Mood and affect normal?? Lab/Radiology/Diagnostic Review: Chem/LFT Lab History Some values may be hidden. Unless noted otherwise, only the newest values recorded on each date aredisplayed. Labs-Chem/LFT Latest Ref Range 08/05/21 08/06/21 08/07/21 08/08/21 Sodium 135 - 145 mmol/L 137 134 (A) 137 139 Creatinine 0.80 - 1.30 mg/dL 0.80 0.61 (A) 0.57 (A) 0.74 (A) Bilirubin, total AST ALT CrCl- Actual Body Weight (Cockcroft-Gault) 250.3 287.2 307.4 236.8 Some values recorded on this date have been omitted. (A) Abnormal value Hematology Lab History Some values may be hidden. Unless noted otherwise, only the newest values recorded on each date aredisplayed. Labs - Hematology Latest Ref Range 08/05/21 08/06/21 08/07/21 08/08/21 WBC 3.8 - 9.9 K/cumm 10.7 (A) 8.0 7.6 6.8 Total Hb, POC 13.0 - 17.5 g/dL 11.4 (A) 10.4 (A) 10.0 (A) 9.9 (A) Hct 38.9 - 50.3 % 37.3 (A) 33.1 (A) 31.8 (A) 31.1 (A) Plt 150 - 400 K/cumm 187 154 199 221 Neutrophil abs 1.7 - 6.5 K/cumm 8.4 (A) Lymphocytes, abs 0.8 - 3.3 K/cumm 1.4 (A) Abnormal value Assessment /Plan Principal Problem: Sacral osteomyelitis (CMS/HCC) ([facility]) Active Problems: S/P urological surgery 35 y.o. male with T4/T5 SCI c/b NGB s/p ileocecal augmentation cystoplasty in 2011, now POD6 from second-stage urethroplasty and penile closure at an OSH.??WBC 11 on arrival, but clinical exam and CTnot suggestive of pepe's. CT read of worsening sacral decubitus ulcer. Patient is s/p bedside I&D of transverse anterior scrotal incision. UCx and wound cxs growing morganella. BCx NGTD. Currently on antony, dapto. Recommendations: - Follow up urine cultures, blood cultures susceptibilities -??serial exams - Pack scrotal wound BID - Appreciate ID recommendations, antibiotics per ID - Urology will continue to follow ?? The above plan has or will be discussed with Urology Attending, Dr. Young. Thank you for allowing us to participate in the care of this patient. For any questions or concerns, please page Urology through the tomato pulper operator. Allen Sanches MD 08/09/2021 Cosigned by Harvey Young MD at 08/11/2021 8:55 AM CDT * Devan Woods MD - 08/08/2021 5:08 PM CDT [facility] Daily Progress Note Subjective Interval Events: - significant scrotal bleeding overnight, urology was called, packed the wound - Patient reports no BM for 2-3 days; cannot remember if he was taking a bowel regimen or Linzess consistently at his facility. Reports that he used to have frequent liquid stool. Objective Vitals: 24hr Min/Max: Temp Min: 36.7 ??C (98.1 ??F) Max: 37.1 ??C (98.8 ??F) Pulse Min: 83 Max: 85 BP Min: 116/65 Max: 137/74 Resp Min: 18 Max: 18 SpO2 Min: 97 % Max: 100 % Most Recent : Vitals: 08/08/21 1540 BP: 137/74 Pulse: 83 Resp: 18 Temp: 36.7 ??C (98.1 ??F) SpO2: 100% I/O last 2 completed shifts: In: 1790 [P.O.:550; I.V.:1000; IV Piggyback:240] Out: 300 [Urine:300] I/O this shift: In: - Out: -60 Physical Exam: General: Not in distress, appears comfortable HEENT: Normocephalic, no conjunctival pallor, no scleral icterus Cardiac: Normal rate; regular rhythm; audible S1 and S2; no murmurs, rubs, or gallops; 2+ radial pulses; no LE edema; Pulm: clear to auscultation bilaterally; no wheezes, rales, or rhonchi GI/Abd: Soft, nontender, nondistended MSK: Normal bulk and tone, no joint effusions or major deformities Skin: No rash or bruises Extremities: bilateral BKA Neuro: AAO x 4, CN II-XII grossly intact Lab/Radiology/Diagnostic Review: I have reviewed the laboratory and imaging findings. Assessment Plan #Lumbar Sacral Discitis/Osteomyelitis w/ epidural abscess: #R paraspinal multiloculated fluid collection: #Fevers: Pt has multiple sources for infection ie sacral decubitus ulcer, foreign lines/drains, recent urologic surgery, dirty UA, discitis, R paraspinal loculated fluid collection. Challenging to obtain source control in patient. Currently spiking fevers through doxycycline 100mg BID, Augmentin 875-125mg BID, and fluconazole. CT A&P noting progression of sacral decubitus ulcer w/ locules of gas extending to the level of the sacrum (locules of gas noted previously). Interval decrease in size of R paraspinal fluid collection now measuring 6.4 x 1.8 cm, previously 11.1 x 3.2 cm. IR aspirated the fluid and we are waiting on cultures. ??- ACCS- no plan for debridement of sacrum - Blood culture X2, C diff, CXR - Abx's: Daptomycin, Meropenam (08/06- ) - ID consult - F/u paraspinal cultures - Wound culture positive for psedomonas, will f/u susceptibility ?? #Concern for scrotal infection: #Ileocecal augmentation cystoplasty??(2011) s/p urethroplasty and penile closure: Some concern for scrotal infection, but CT reassuring. Endorses scrotal discharge, mostly serosanguinous. CT A&P w/o evidence of fourneir's. Urology opened his scrotal incision for drainage and is currently following. - Urology following - UA, Urine culture - Abx's per above ?? #L Abdominal percutaneous drain (resolved) CT A&P noting resolved L paracolic gutter fluid collection. Pt currently has a L abd percutaneous drain that was placed 05/22/21, which can now be removed. IR pulled the drain at the bedside on 08/06. ?? #Paraplegia #Pressure injury to buttock and thigh: Pt does not have sensation below the level of the nipple. - Pain control: Gabapentin 300mg QHS, Flexeril 6mg TID PRN, Tylenol 1g TID PRN, Oxy PRN - Wound consult - Pressure bed - Home 50mcg fentanyl patch q72h #Constipation Patient reports no BM for 3 days on 08/08/21. Reports that at home he tends to have diarrhea/liquid stool. - miralax daily - senna docusate BID #HTN: -Coreg 3.25mg BID Code Status: Full Code Diet: Adult Diet Regular DVT Prophylaxis: Heparin Dispo: TBD Devan Woods MD PGY-1 Resident 08/08/2021 5:08 PM Cosigned by Harvey Tierney MD at 08/08/2021 6:22 PM CDT Associated attestation - Harvey Tierney MD - 08/08/2021 6:22 PM CDT ATTENDING DOCUMENTATION I have seen and examined the patient on 08/08/2021.I agree with the findings and plan of care as documented in the resident's/fellow's note. and as discussed with the resident/fellow. Awaiting final cultures for final ID plan. Will schedule bowel regimen. Harvey Tierney MD * Estela Zapata PA - 08/08/2021 11:54 AM CDT Images from the original note were not included. [facility] Radiology - Post-Procedure Progress Note Procedure: Right lumbar paraspinal fluid collection aspiration under CT guidance DOS: 08/07/21 Attending: Dr. Terrence Bennett Subjective Interval History: No acute events overnight. No fevers/chills/chest pain/SOB/nausea/vomiting. No pain complaint at procedure site. Patient resting comfortably in bed, able to turn to right side for procedure site check. Objective Most Recent Vitals: Temp: [36.5 ??C (97.7 ??F)-37.1 ??C (98.8 ??F)] 37 ??C (98.6 ??F) Pulse: [83-88] 83 Resp: [18-20] 18 BP: (116-148)/(65-86) 124/66 Physical Exam: General: alert & oriented X 3, NAD, well-developed well-nourished C/V: normal rate and rhythm, 2+ peripheral pulses Pulm: normal respirations, symmetric chest rise, nonlabored breathing Skin: No obvious rash or ecchymosis. Procedural site: C/D/I Extremities: Toes warm and well perfused. Cap refill <2 seconds. Patient able to wiggle toes. Lab/Radiology/Diagnostic Review: Chem/LFT Lab History Some values may be hidden. Unless noted otherwise, only the newest values recorded on each date aredisplayed. Labs-Chem/LFT Latest Ref Range 07/03/21 08/05/21 08/06/21 08/07/21 Sodium 135 - 145 mmol/L 140 137 134 (A) 137 Creatinine 0.80 - 1.30 mg/dL 0.67 (A) 0.80 0.61 (A) 0.57 (A) Bilirubin, total 0.1 - 1.2 mg/dL 0.3 AST 10 - 50 Units/L 25 ALT 7 - 55 Units/L 16 CrCl- Actual Body Weight (Cockcroft-Gault) 269.9 250.3 287.2 307.4 Some values recorded on this date have been omitted. (A) Abnormal value Hematology Lab History Some values may be hidden. Unless noted otherwise, only the newest values recorded on each date aredisplayed. Labs - Hematology Latest Ref Range 07/03/21 08/05/21 08/06/21 08/07/21 WBC 3.8 - 9.9 K/cumm 4.2 10.7 (A) 8.0 7.6 Total Hb, POC 13.0 - 17.5 g/dL 11.7 (A) 11.4 (A) 10.4 (A) 10.0 (A) Hct 38.9 - 50.3 % 38.0 (A) 37.3 (A) 33.1 (A) 31.8 (A) Plt 150 - 400 K/cumm 215 187 154 199 Neutrophil abs 1.7 - 6.5 K/cumm 2.7 8.4 (A) Lymphocytes, abs 0.8 - 3.3 K/cumm 1.0 1.4 (A) Abnormal value Assessment/Plan Shawn Casey is a 35 y.o. male who is status post Right lumbar paraspinal fluid collection aspiration at L3 under CT guidance (DOS: 08/07/21). 1. Procedure reviewed with patient, results and further treatment per primary team. Procedure site checked and is C/D/I; no concerns of sequela at this time. 2. Dressings: none 3. Post-procedural restrictions: none 4. All questions and concerns regarding procedure addressed with the patient. 5. Remainder of plan and dispo per primary team. Thank you for opportunity to participate in the patient's care. [facility] [place] will sign off. Pleasepage or put in a new consult as needed. JENNIFER McadamsC [facility] [place] Pager: [phone] August 08, 2021 11:54 AM * Megan Salomon MD - 08/08/2021 8:47 AM CDT Images from the original note were not included. Urology Progress Note Subjective Patient is a 35 y.o. male with T4/T5 SCI c/b NGB s/p ileocecal augmentation cystoplasty in 2011, now POD5 from second-stage urethroplasty and penile closure at an OSH.??WBC 11, but clinical exam and CT not suggestive of pepe's. CT read of worsening sacral decubitus ulcer. S/p bedside scrotal I&D, packed with iodoform Interval History: Patient was seen and examined this morning No acute events overnight, vitals stable and afebrile Denies pain, n/v Denies fevers, chills Objective Recent Vitals(24hr Range): Vitals: 08/07/21 0307 08/07/21 1320 08/07/21 2040 08/08/21 0615 BP: 138/79 148/86 116/65 124/66 BP Location: Left arm Left arm Left arm Left arm Patient Position: HOB 30 degrees Lying HOB 30 degrees HOB 30 degrees Pulse: 95 88 85 83 Resp: 20 20 18 18 Temp: 37.3 ??C (99.1 ??F) 36.5 ??C (97.7 ??F) 37.1 ??C (98.8 ??F) 37 ??C (98.6 ??F) TempSrc: Oral Oral Oral Oral SpO2: 96% 98% 97% 100% Weight: Height: I and Os: I/O last 3 completed shifts: In: 2030 [P.O.:550; I.V.:1000; IV Piggyback:480] Out: 550 [Urine:550] No intake/output data recorded. I/O last 2 completed shifts: In: 1790 [P.O.:550; I.V.:1000; IV Piggyback:240] Out: 300 [Urine:300] No intake/output data recorded. Physical exam:?? GENERAL: Alert and oriented,??laying??in bed, no acute distress. HEENT: Sclerae anicteric. EOMI. Mucous membranes moist. NECK: Supple, full ROM RESPIRATORY: Normal effort on room air CARDIOVASCULAR:??hypertensive ABDOMINAL: Soft,??obese :??catheter in umbilical channel draining clear, yellow urine. Urethral meatus closed with chromic suture, ventral penile incision healing well, scrotal edema w/o fluctuance or crepitus. Transverseanterior incision packing removed. Moderate SS drainage. Re-packed with iodoform and covered dry. MUSCULOSKELETAL:??BLE amputations NEUROLOGICAL: Alert & oriented, speech fluent and appropriate.??paraplegic PSYCH: Mood and affect normal?? Lab/Radiology/Diagnostic Review: Chem/LFT Lab History Some values may be hidden. Unless noted otherwise, only the newest values recorded on each date aredisplayed. Labs-Chem/LFT Latest Ref Range 07/03/21 08/05/21 08/06/2130/21 Sodium 135 - 145 mmol/L 140 137 134 (A) 137 Creatinine 0.80 - 1.30 mg/dL 0.67 (A) 0.80 0.61 (A) 0.57 (A) Bilirubin, total 0.1 - 1.2 mg/dL 0.3 AST 10 - 50 Units/L 25 ALT 7 - 55 Units/L 16 CrCl- Actual Body Weight (Cockcroft-Gault) 269.9 250.3 287.2 307.4 Some values recorded on this date have been omitted. (A) Abnormal value Hematology Lab History Some values may be hidden. Unless noted otherwise, only the newest values recorded on each date aredisplayed. Labs - Hematology Latest Ref Range 07/03/21 08/05/21 08/06/21 08/07/21 WBC 3.8 - 9.9 K/cumm 4.2 10.7 (A) 8.0 7.6 Total Hb, POC 13.0 - 17.5 g/dL 11.7 (A) 11.4 (A) 10.4 (A) 10.0 (A) Hct 38.9 - 50.3 % 38.0 (A) 37.3 (A) 33.1 (A) 31.8 (A) Plt 150 - 400 K/cumm 215 187 154 199 Neutrophil abs 1.7 - 6.5 K/cumm 2.7 8.4 (A) Lymphocytes, abs 0.8 - 3.3 K/cumm 1.0 1.4 (A) Abnormal value Assessment /Plan Principal Problem: Sacral osteomyelitis (CMS/HCC) ([facility]) Active Problems: S/P urological surgery 35 y.o. male with T4/T5 SCI c/b NGB s/p ileocecal augmentation cystoplasty in 2011, now POD5 from second-stage urethroplasty and penile closure at an OSH.??WBC 11, but clinical exam and CT not suggestive of pepe's. CT read of worsening sacral decubitus ulcer. Patient is s/p bedside I&D of transverse anterior scrotal incision. UCx and wound cxs growing morganella. BCx NGTD. Currently on antony, dapto. Recommendations: - Follow up urine cultures, blood cultures susceptibilities -??serial exams - Pack scrotal wound BID - Appreciate ID recommendations, antibiotics per ID - Urology will continue to follow ?? The above plan has or will be discussed with Urology Attending, Dr. Young. Thank you for allowing us to participate in the care of this patient. For any questions or concerns, please page Urology through the tomato pulper operator. Megan Salomon MD 08/08/2021 Cosigned by Harvey Young MD at 08/09/2021 8:01 AM CDT * Thuy Lloyd MD PhD - 08/07/2021 1:29 PM CDT [facility] Daily Progress Note Subjective Interval Events: - urology intervention to open and drain scrotum - IR pulled left paracolic drain - IR aspirated right paraspinal abscess and sent fluid for culture - ID consult Objective Vitals: 24hr Min/Max: Temp Min: 36.5 ??C (97.7 ??F) Max: 37.3 ??C (99.1 ??F) Pulse Min: 88 Max: 95 BP Min: 138/79 Max: 157/94 Resp Min: 20 Max: 22 SpO2 Min: 96 % Max: 100 % Most Recent : Vitals: 08/07/21 1320 BP: 148/86 Pulse: 88 Resp: 20 Temp: 36.5 ??C (97.7 ??F) SpO2: 98% I/O last 2 completed shifts: In: 240 [IV Piggyback:240] Out: 250 [Urine:250] I/O this shift: In: - Out: 250 [Urine:250] Physical Exam: General: Not in distress, appears comfortable HEENT: Normocephalic, no conjunctival pallor, no scleral icterus Cardiac: Normal rate; regular rhythm; audible S1 and S2; no murmurs, rubs, or gallops; 2+ radial pulses; no LE edema; Pulm: clear to auscultation bilaterally; no wheezes, rales, or rhonchi GI/Abd: Soft, nontender, nondistended MSK: Normal bulk and tone, no joint effusions or major deformities Skin: No rash or bruises Extremities: bilateral BKA Neuro: AAO x 4, CN II-XII grossly intact Lab/Radiology/Diagnostic Review: I have reviewed the laboratory and imaging findings. Assessment Plan #Lumbar Sacral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 alert, no distress, speaking in full sentences, immobile below nipple line Head and neck: normocephalic, atraumatic, no C spine TTP or decreased ROM Eyes: EOMI, PERRL Oropharynx: no pharyngeal erythema, tonsillar exudates Cardiac: tachy rate, reg rhythm, no murmurs, rubs or gallops. 2+ distal pulses. No LE edema Pulmonary: Clear breath sounds bilaterally, no respiratory distress GI: Soft, non-tender, non-distended. No rebound tenderness or voluntary guarding. Suprapubic w/ clear/yellow urine drainage, site appears healthy. LLQ drain appears healthy. : scrotal swelling and duskiness with serosanguinous drainage and likely purulence, no crepitus, unable to assess for tenderness as patient is asensate Musculoskeletal: bilat bka Skin: sacral ulcer with minimal serosanguinous drainage Neurological: CN 2-12 intact. Normal upper extrem fxn. Sensation grossly intact above t5. Psychiatric: appropriate mood and affect MDM MDM 35 yo male hx of sacral osteo, t5 paraplegia, indwelling suprapubic cath, utis w/ prior esbl, ureteral stones who presents w/ drainage from scrotum, fevers and vomiting.Vitals notable for tachycardia, c/f sepsis from recent urologic surgical site. 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 Consulted urology and obtained urgent ct scan and low concern for pepe's based on ct and urology exam. Does have new gas locules around sacrum and likely uti so started on broad spec abx antony linezolid given prior esbl/vre utis. Tachycardia improved after fluids, patient appears stable for floor. Plan to admit to medicine for uti/osteo tx. No urgent debridement per accs. Attending Summary of Care I have seen and examined the patient. I agree with the findings and plan of care as documented by the resident except as noted. 35 yo M with paraplegia and bilateral leg amputation who underwent recent urethral surgery sent to the ED with concerns for genital infection. Area is dusky and of concern (see pic). Lab, CT and consultation being undertaken. ED Course as of Aug 06 114 Time: 08/05 2023 Comment: Working on iv access, patient is difficult iv placement By: Darci Tomlin MD Time: 08/05 2224 Value: CRP(!): 241.5 Comment: Was 12 1 month ago By: Darci Tomlin MD Time: 08/05 2224 Value: WBC(!): 10.7 Comment: (Reviewed) By: Darci Tomlin MD Time: 08/05 2224 Value: Neutrophil abs(!): 8.4 Comment: (Reviewed) By: Darci Tomlin MD Time: 08/05 2230 Value: Leukocyte esterase, ur(!): 3+ Comment: (Reviewed) By: Darci Tomlin MD Time: 08/05 2230 Value: Nitrite, ur(!): Positive Comment: (Reviewed) By: Darci Tomlin MD Time: 08/05 2247 Value: CT Abdomen Pelvis W Contrast Comment: IMPRESSION: 1. Interval progression of sacral decubitus ulcer, with locules of gas extending to the level of the sacrum. Redemonstrated extensive bony changes of the sacrum in keeping with chronic osteomyelitis. ?? 2. Interval decrease in size of collection posterior to the right paraspinal muscles at the level of L3. ?? 3. Sinus tracts extending from the posterior thigh skin to the left ischium and left femur, likely unchanged. ?? 4. Unchanged skin thickening of the posterior left thigh, predominantly medially, likely inflammatory. No discrete fluid collection. ?? 5. Interval increase in size of small fluid collection abutting the membranous urethra. This is favored to represent a urethral diverticulum, rather than an abscess. ?? 6. Left abdominal percutaneous drain, with resolved left paracolic gutter collection. ?? 7. Redemonstrated multiple cystic lesions of the kidneys, which are unchanged since 05/27/2021, butincreased in size since 02/11/2012. Continued attention on follow-up imaging is recommended. ?? Dictated by: Zander Bojorquez M.D. By: Wei Lewis MD Time: 08/05 2300 Comment: Urology with low concern for pepe's and ct reassuring against this. Have consulted accs given locules of gas around sacrum and concern for sepsis. By: Darci Tomlin MD Time: 08/05 9303 Comment: No debridement per ACCS, admit to medicine By: Wei Lewis MD Time: 08/06 0101 Comment: Signed out to medicine By: Wei Lewis MD Time: 08/06 0839 Comment: Urology planning to take to OR By: Adelina Flores MD Sacral osteomyelitis (CMS/HCC) (HCC) Elevated C-reactive protein (CRP) Leukocytosis, unspecified type S/P urological surgery Darci Tomlin MD Resident 08/05/21 4820 Darci Tomlin MD Resident 08/06/21 1140 Cosigned by Hakeem Warren MD at 08/13/2021 6:56 AM CDT documented in this encounter Miscellaneous Notes * Plan of Care - Ladi Verde RN - 08/11/2021 3:29 AM CDT Goals: Problem: Health Behavior: Goal: Understanding of discharge needs will improve Outcome: Progressing Problem: Activity: Goal: Mobility will improve Outcome: Progressing Problem: Lack of Knowledge: Goal: Understanding of ways to prevent future skin breakdown will improve Outcome: Progressing Goal: Ability to identify appropriate dietary choices will improve Outcome: Progressing Problem: Nutritional: Goal: Dietary intake will improve Outcome: Progressing Goal: Ability to maintain a balanced intake and output will improve Outcome: Progressing Problem: Skin Integrity: Goal: Risk for impaired skin integrity will decrease Outcome: Progressing Goal: Ability to demonstrate warm and dry skin will improve Outcome: Progressing Goal: Circulation will improve to fullest extent possible Outcome: Progressing Problem: Lack of Knowledge: Goal: Ability to state ways to decrease the risk of falls will improve Outcome: Progressing Problem: Safety: Goal: Will remain free from falls Outcome: Progressing Goal: Will remain free from injury from falls Outcome: Progressing Goal: Will remain free from falls and injury in home environment Outcome: Progressing Clinical Goals for the Shift: Patient will have BP monitored and treated as needed, pain will also improve. Summary: BP monitored and back to baseline of 135/81 at 2330; at this time, patient's headache had gone away as well. Suprapubic catheter flushed with 100 mLs tap water and appropriate amount of urine output returned. Wound care delayed d/t patient c/o severe pain and refusing. Pain controlled after one time dose of dilaudid and a dose of oxycodone an hour later; patient was then bathed and had wound care done at 0200 once pain stabilized and patient was able to tolerate movement. Patient refused most turns d/t pain but was able to turn once bath was completed. Patient had 1 medium incontinent BM this shift. Assessment otherwise as charted. Will continue to monitor. * Plan of Care - Hazel Odom RN - 08/10/2021 4:33 PM CDT Problem: Health Behavior: Goal: Understanding of discharge needs will improve Outcome: Progressing Problem: Activity: Goal: Mobility will improve Outcome: Progressing Problem: Lack of Knowledge: Goal: Understanding of ways to prevent future skin breakdown will improve Outcome: Progressing Goal: Ability to identify appropriate dietary choices will improve Outcome: Progressing Problem: Nutritional: Goal: Dietary intake will improve Outcome: Progressing Goal: Ability to maintain a balanced intake and output will improve Outcome: Progressing Problem: Skin Integrity: Goal: Risk for impaired skin integrity will decrease Outcome: Progressing Goal: Ability to demonstrate warm and dry skin will improve Outcome: Progressing Goal: Circulation will improve to fullest extent possible Outcome: Progressing Problem: Lack of Knowledge: Goal: Ability to state ways to decrease the risk of falls will improve Outcome: Progressing Problem: Safety: Goal: Will remain free from falls Outcome: Progressing Goal: Will remain free from injury from falls Outcome: Progressing Goal: Will remain free from falls and injury in home environment Outcome: Progressing Goals: Clinical Goals for the Shift: pt will not leak from suprapubic cath Summary: Patient was hypertensive during shift; see previous note. Suprapubic did not leak. Patienthad one small BM. * Plan of Care - Jennifer Gant RN - 08/10/2021 3:48 AM CDT Problem: Health Behavior: Goal: Understanding of discharge needs will improve Outcome: Progressing Problem: Activity: Goal: Mobility will improve Outcome: Progressing Problem: Lack of Knowledge: Goal: Understanding of ways to prevent future skin breakdown will improve Outcome: Progressing Goal: Ability to identify appropriate dietary choices will improve Outcome: Progressing Problem: Nutritional: Goal: Dietary intake will improve Outcome: Progressing Goal: Ability to maintain a balanced intake and output will improve Outcome: Progressing Problem: Skin Integrity: Goal: Risk for impaired skin integrity will decrease Outcome: Progressing Goal: Ability to demonstrate warm and dry skin will improve Outcome: Progressing Goal: Circulation will improve to fullest extent possible Outcome: Progressing Problem: Lack of Knowledge: Goal: Ability to state ways to decrease the risk of falls will improve Outcome: Progressing Problem: Safety: Goal: Will remain free from falls Outcome: Progressing Goal: Will remain free from injury from falls Outcome: Progressing Goal: Will remain free from falls and injury in home environment Outcome: Progressing Goals: Clinical Goals for the Shift: VSS; pain control and restful night Summary: VSS;Pain adequately controlled overnight; Oxy given once for pain; IV abx given as ordered; Wound care and CHG bath done; Pt had restful night. * Plan of Care - Hazel Odom RN - 08/09/2021 3:50 PM CDT Problem: Health Behavior: Goal: Understanding of discharge needs will improve Outcome: Progressing Problem: Activity: Goal: Mobility will improve Outcome: Progressing Problem: Lack of Knowledge: Goal: Understanding of ways to prevent future skin breakdown will improve Outcome: Progressing Goal: Ability to identify appropriate dietary choices will improve Outcome: Progressing Problem: Nutritional: Goal: Dietary intake will improve Outcome: Progressing Goal: Ability to maintain a balanced intake and output will improve Outcome: Progressing Problem: Skin Integrity: Goal: Risk for impaired skin integrity will decrease Outcome: Progressing Goal: Ability to demonstrate warm and dry skin will improve Outcome: Progressing Goal: Circulation will improve to fullest extent possible Outcome: Progressing Problem: Lack of Knowledge: Goal: Ability to state ways to decrease the risk of falls will improve Outcome: Progressing Problem: Safety: Goal: Will remain free from falls Outcome: Progressing Goal: Will remain free from injury from falls Outcome: Progressing Goal: Will remain free from falls and injury in home environment Outcome: Progressing Goals: Clinical Goals for the Shift: pt will have stable VS; wound care Summary: Patient had stable VS. Suprapubic catheter not leaking as of 1549. Scrotal wound care cm urology . All other dressings clean/dry/intact * Plan of Care - Jennifer Gant RN - 08/09/2021 5:44 AM CDT Problem: Health Behavior: Goal: Understanding of discharge needs will improve Outcome: Progressing Problem: Activity: Goal: Mobility will improve Outcome: Progressing Problem: Lack of Knowledge: Goal: Understanding of ways to prevent future skin breakdown will improve Outcome: Progressing Goal: Ability to identify appropriate dietary choices will improve Outcome: Progressing Problem: Nutritional: Goal: Dietary intake will improve Outcome: Progressing Goal: Ability to maintain a balanced intake and output will improve Outcome: Progressing Problem: Skin Integrity: Goal: Risk for impaired skin integrity will decrease Outcome: Progressing Goal: Ability to demonstrate warm and dry skin will improve Outcome: Progressing Goal: Circulation will improve to fullest extent possible Outcome: Progressing Problem: Lack of Knowledge: Goal: Ability to state ways to decrease the risk of falls will improve Outcome: Progressing Problem: Safety: Goal: Will remain free from falls Outcome: Progressing Goal: Will remain free from injury from falls Outcome: Progressing Goal: Will remain free from falls and injury in home environment Outcome: Progressing Goals: Clinical Goals for the Shift: VSS; pain control and restful night Summary:VSS;Pain well controlled with PRN oxy;IV abx given as ordered; Wound care and CHG bath given; Suprapubic cath aspirated/flushed; No leakage around catheter site overnight;Pt had restful night. * Plan of Care - Hazel Odom RN - 08/08/2021 3:25 PM CDT Problem: Health Behavior: Goal: Understanding of discharge needs will improve Outcome: Progressing Problem: Activity: Goal: Mobility will improve Outcome: Progressing Problem: Lack of Knowledge: Goal: Understanding of ways to prevent future skin breakdown will improve Outcome: Progressing Goal: Ability to identify appropriate dietary choices will improve Outcome: Progressing Problem: Nutritional: Goal: Dietary intake will improve Outcome: Progressing Goal: Ability to maintain a balanced intake and output will improve Outcome: Progressing Problem: Skin Integrity: Goal: Risk for impaired skin integrity will decrease Outcome: Progressing Goal: Ability to demonstrate warm and dry skin will improve Outcome: Progressing Goal: Circulation will improve to fullest extent possible Outcome: Progressing Problem: Lack of Knowledge: Goal: Ability to state ways to decrease the risk of falls will improve Outcome: Progressing Problem: Safety: Goal: Will remain free from falls Outcome: Progressing Goal: Will remain free from injury from falls Outcome: Progressing Goal: Will remain free from falls and injury in home environment Outcome: Progressing Goals: Clinical Goals for the Shift: pt will have stable VS Summary: Patient had stable VS. Wound care to scrotum performed in 1400 hour. Patient refused turns; education provided. * Plan of Care - Daysi Lemon RN - 08/08/2021 12:46 PM CDT CM spoke to [facility] ([phone]) at [facility]. They would not be able to accept patientto return over the weekend but can accept patient to return on Saturday 08/11. She requests negative COVID test before patient returns. MD notified. * Plan of Care - Jennifer Gant RN - 08/08/2021 6:53 AM CDT Problem: Health Behavior: Goal: Understanding of discharge needs will improve Outcome: Progressing Problem: Activity: Goal: Mobility will improve Outcome: Progressing Problem: Lack of Knowledge: Goal: Understanding of ways to prevent future skin breakdown will improve Outcome: Progressing Goal: Ability to identify appropriate dietary choices will improve Outcome: Progressing Problem: Nutritional: Goal: Dietary intake will improve Outcome: Progressing Goal: Ability to maintain a balanced intake and output will improve Outcome: Progressing Problem: Skin Integrity: Goal: Risk for impaired skin integrity will decrease Outcome: Progressing Goal: Ability to demonstrate warm and dry skin will improve Outcome: Progressing Goal: Circulation will improve to fullest extent possible Outcome: Progressing Problem: Lack of Knowledge: Goal: Ability to state ways to decrease the risk of falls will improve Outcome: Progressing Problem: Safety: Goal: Will remain free from falls Outcome: Progressing Goal: Will remain free from injury from falls Outcome: Progressing Goal: Will remain free from falls and injury in home environment Outcome: Progressing Goals: Clinical Goals for the Shift: VSS; pain control and restful night Summary:VSS; Pain adequately controlled overnight; IV Abx given as ordered; Wound care done and CHGbath given. Suprapubic cath still leaking; Cath flushed/aspirated;Pt had restful night. * Plan of Care - Farhan Mckeon RN - 08/07/2021 3:20 PM CDT Goals: Clinical Goals for the Shift: VSS, wound care Summary: VSS. Pt seen by wound today for sacral ulcers. Pt refusing most turns. Suprapubic catheterleaking significant urine, MD aware. MD instructed RN to flush catheter. IV abx given. * Post-Procedure Note - Mono Monroe MD PhD - 08/07/2021 10:51 AM CDT Radiology Brief Post Procedure Note Attending: Donald Fast Food Worker: Fer Sedation/Anesthesia: Local Pre-Op/Pre-Procedure Diagnosis: Right lumbar paraspinal collection Post-Op/Post-Procedure Diagnosis: same Procedure Performed: Right lumbar paraspinal aspiration Procedure Findings: Successful Right lumbar paraspinal aspiration Complications: None Estimated Blood Loss: None Specimens: 0.3 cc bloody aspirate for culture Condition: Stable Full report to follow. * Plan of Care - Jennifer Gant RN - 08/07/2021 6:49 AM CDT Problem: Health Behavior: Goal: Understanding of discharge needs will improve Outcome: Progressing Problem: Activity: Goal: Mobility will improve Outcome: Progressing Problem: Lack of Knowledge: Goal: Understanding of ways to prevent future skin breakdown will improve Outcome: Progressing Goal: Ability to identify appropriate dietary choices will improve Outcome: Progressing Problem: Nutritional: Goal: Dietary intake will improve Outcome: Progressing Goal: Ability to maintain a balanced intake and output will improve Outcome: Progressing Problem: Skin Integrity: Goal: Risk for impaired skin integrity will decrease Outcome: Progressing Goal: Ability to demonstrate warm and dry skin will improve Outcome: Progressing Goal: Circulation will improve to fullest extent possible Outcome: Progressing Problem: Lack of Knowledge: Goal: Ability to state ways to decrease the risk of falls will improve Outcome: Progressing Problem: Safety: Goal: Will remain free from falls Outcome: Progressing Goal: Will remain free from injury from falls Outcome: Progressing Goal: Will remain free from falls and injury in home environment Outcome: Progressing Goals: Clinical Goals for the Shift: VSS; pain control and restful night Summary: VSS; Pain adequately controlled with PRN oxy;Pt had restful night. * Plan of Care - Fouzia Guan RN - 08/06/2021 4:37 PM CDT Goals: Clinical Goals for the Shift: pt will be oriented to unit Summary: Pt oriented to unit and compliant with all nursing care provided. Wound care was completedand wound consult put in. Pt arrived to unit with transparent dressing over PICC line that was overdue for a dressing change. CHG dressing applied. VSS on RA. Will continue to monitor. Problem: Health Behavior: Goal: Understanding of discharge needs will improve Outcome: Progressing Problem: Activity: Goal: Mobility will improve Outcome: Progressing Problem: Lack of Knowledge: Goal: Understanding of ways to prevent future skin breakdown will improve Outcome: Progressing Goal: Ability to identify appropriate dietary choices will improve Outcome: Progressing Problem: Nutritional: Goal: Dietary intake will improve Outcome: Progressing Goal: Ability to maintain a balanced intake and output will improve Outcome: Progressing Problem: Skin Integrity: Goal: Risk for impaired skin integrity will decrease Outcome: Progressing Goal: Ability to demonstrate warm and dry skin will improve Outcome: Progressing Goal: Circulation will improve to fullest extent possible Outcome: Progressing Problem: Lack of Knowledge: Goal: Ability to state ways to decrease the risk of falls will improve Outcome: Progressing Problem: Safety: Goal: Will remain free from falls Outcome: Progressing Goal: Will remain free from injury from falls Outcome: Progressing Goal: Will remain free from falls and injury in home environment Outcome: Progressing * Post-Procedure Note - Jenna Oakley PA - 08/06/2021 1:41 PM CDT Radiology Brief Post Procedure Note Attending: Rick Morgan MD Fast Food Worker: Jenna Oakley PA-C and Omar Camara M.D. Sedation/Anesthesia: None Pre-Op/Pre-Procedure Diagnosis: Abscess drain with no output, no showed to follow up Post-Op/Post-Procedure Diagnosis: Abscess drain with no output, no showed to follow up Procedure Performed: Abscess drain removal at bedside Procedure Findings: Successful abscess drain removal at bedside Complications: None Estimated Blood Loss: None Specimens: None Condition: Stable Full report to follow. * Post-Procedure Note - Omar Camara MD - 08/06/2021 1:31 PM CDT Radiology Brief Post Procedure Note 35-year-old male with paraplegia. On 05/22/2021 patient had a percutaneous drainage catheter placedfor a left pericolic gutter fluid collection. Patient states that he attended outpatient follow-up although no record of this can be seen in the chart. Patient states that there has been no significant drainage from the catheter. The catheter was successfully removed at the bedside. * Perioperative Nursing Note - Marta Hallman RN - 08/06/2021 9:39 AM CDT Blood glucose checked in ED at 0640. Patient states he had orange juice after this blood glucose. Dr. Muller notified. Will recheck blood glucose now. * ED Re-evaluation Note - Adelina Flores MD - 08/06/2021 6:54 AM CDT ED Re-evaluation TRANSITION OF CARE: Adelina Meeks MD, am taking signout from Dr. Lewis (Resident). Summary: 35 y.o. male paraplegia and bilateral leg amputation who underwent recent urethral surgerysent to the ED with concerns for fevers, chills, vomiting, possible genital infection. Patient febrile on arrival here and tachycardic. Has received linezolid, meropenem and clindamycin. CT w/ possible worsening of chronic sacral decub. Patient has been evaluated by ACCS and urology. Pending: - N/A Dispo: Admit medicine ED Course as of Aug 06 1510 Time: 08/05 2023 Comment: Working on iv access, patient is difficult iv placement By: Darci Tomlin MD Time: 08/05 2224 Value: CRP(!): 241.5 Comment: Was 12 1 month ago By: Darci Tomlin MD Time: 08/05 2224 Value: WBC(!): 10.7 Comment: (Reviewed) By: Darci Tomlin MD Time: 08/05 2224 Value: Neutrophil abs(!): 8.4 Comment: (Reviewed) By: Darci Tomlin MD Time: 08/05 2230 Value: Leukocyte esterase, ur(!): 3+ Comment: (Reviewed) By: Darci Tomlin MD Time: 08/05 2230 Value: Nitrite, ur(!): Positive Comment: (Reviewed) By: Darci Tomlin MD Time: 08/05 2247 Value: CT Abdomen Pelvis W Contrast Comment: IMPRESSION: 1. Interval progression of sacral decubitus ulcer, with locules of gas extending to the level of the sacrum. Redemonstrated extensive bony changes of the sacrum in keeping with chronic osteomyelitis. 2. Interval decrease in size of collection posterior to the right paraspinal muscles at the level of L3. 3. Sinus tracts extending from the posterior thigh skin to the left ischium and left femur, likely unchanged. 4. Unchanged skin thickening of the posterior left thigh, predominantly medially, likely inflammatory. No discrete fluid collection. 5. Interval increase in size of small fluid collection abutting the membranous urethra. This is favored to represent a urethral diverticulum, rather than an abscess. 6. Left abdominal percutaneous drain, with resolved left paracolic gutter collection. 7. Redemonstrated multiple cystic lesions of the kidneys, which are unchanged since 05/27/2021, butincreased in size since 02/11/2012. Continued attention on follow-up imaging is recommended. Dictated by: Zander Bojorquez M.D. By: Wei Lewis MD Time: 08/05 2300 Comment: Urology with low concern for pepe's and ct reassuring against this. Have consulted accs given locules of gas around sacrum and concern for sepsis. By: Darci Tomlin MD Time: 08/05 2329 Comment: No debridement per ACCS, admit to medicine By: Wei Lewis MD Time: 08/06 010 Comment: Signed out to medicine By: Wei Lewis MD Time: 08/06 0839 Comment: Urology planning to take to OR By: Adelina Flores MD Stanley, Katherine Mary, MD Resident 08/06/21 1510 * ED Re-evaluation Note - Wei Lewis MD - 08/05/2021 10:39 PM CDT ED Re-evaluation TRANSITION OF CARE: I, Yoana Lewis MD, am taking signout and assuming care of this patient from Dr Tomlin (Resident). I have reviewed all pertinent vital signs, allergies, and history available in the chart. Dispo: contingent on below Pending: ACCS Summary: 35 y.o. male with paraplegia and bilateral leg amputation who underwent recent urethral surgery sent to the ED with concerns for fevers, chills, vomiting, possible genital infection. WBC 10.7, CRP 241.5, ESR 76, nitrite +/LE 3+. Receiving clinda, linezolid. Concern for Pepe's but CT reassuring. Urology has seen. ACCS consult pending for locules of gas around sacrum on CT. ED Course as of Aug 05 2303 Time: 08/05 2023 Comment: Working on iv access, patient is difficult iv placement By: Darci Tomlin MD Time: 08/05 2224 Value: CRP(!): 241.5 Comment: Was 12 1 month ago By: Darci Tomlin MD Time: 08/05 2224 Value: WBC(!): 10.7 Comment: (Reviewed) By: Darci Tomlin MD Time: 08/05 2224 Value: Neutrophil abs(!): 8.4 Comment: (Reviewed) By: Darci Tomlin MD Time: 08/05 2230 Value: Leukocyte esterase, ur(!): 3+ Comment: (Reviewed) By: Darci Tomlin MD Time: 08/05 2230 Value: Nitrite, ur(!): Positive Comment: (Reviewed) By: Darci Tomlin MD Time: 08/05 2247 Value: CT Abdomen Pelvis W Contrast Comment: IMPRESSION: 1. Interval progression of sacral decubitus ulcer, with locules of gas extending to the level of the sacrum. Redemonstrated extensive bony changes of the sacrum in keeping with chronic osteomyelitis. ?? 2. Interval decrease in size of collection posterior to the right paraspinal muscles at the level of L3. ?? 3. Sinus tracts extending from the posterior thigh skin to the left ischium and left femur, likely unchanged. ?? 4. Unchanged skin thickening of the posterior left thigh, predominantly medially, likely inflammatory. No discrete fluid collection. ?? 5. Interval increase in size of small fluid collection abutting the membranous urethra. This is favored to represent a urethral diverticulum, rather than an abscess. ?? 6. Left abdominal percutaneous drain, with resolved left paracolic gutter collection. ?? 7. Redemonstrated multiple cystic lesions of the kidneys, which are unchanged since 05/27/2021, butincreased in size since 02/11/2012. Continued attention on follow-up imaging is recommended. ?? Dictated by: Zander Bojorquez M.D. By: Wei Lewis MD Time: 08/05 2300 Comment: Urology with low concern for pepe's and ct reassuring against this. Have consulted accs given locules of gas around sacrum and concern for sepsis. By: Darci Tomlin MD Thompson, Karima Arrianna, MD Resident 08/05/212308 documented in this encounter Plan of Treatment Not on file documented as of this encounter Procedures Procedure Name Priority Date/Time Associated Diagnosis Comments COVID-19 CORONAVIRUS RNA Routine 08/11/2021 12:39 PM CDT EGFR Routine 08/10/2021 9:41 PM CDT CBC WITHOUT DIFFERENTIAL Routine 08/10/2021 9:41 PM CDT BASIC METABOLIC PANEL Routine 08/10/2021 9:41 PM CDT XR ABDOMEN AP 1 VIEW IP Routine 08/10/2021 8:56 PM CDT ECG 12-LEAD Routine 08/10/2021 5:08 PM CDT EGFR Routine 08/09/2021 9:04 PM CDT CBC WITHOUT DIFFERENTIAL Routine 08/09/2021 9:04 PM CDT BASIC METABOLIC PANEL Routine 08/09/2021 9:04 PM CDT EGFR Routine 08/08/2021 8:24 PM CDT CBC WITHOUT DIFFERENTIAL Routine 08/08/2021 8:24 PM CDT BASIC METABOLIC PANEL Routine 08/08/2021 8:24 PM CDT EGFR Routine 08/07/2021 8:47 PM CDT CBC WITHOUT DIFFERENTIAL Routine 08/07/2021 8:47 PM CDT BASIC METABOLIC PANEL Routine 08/07/2021 8:47 PM CDT ASPIRATION OF ABSCESS HEMATOMA CYST IP Routine 08/07/2021 10:55 AM CDT MYCOLOGY (FUNGAL) CULTURE Routine 08/07/2021 10:55 AM CDT AEROBIC AND ANAEROBIC CULTURE AND GRAM STAIN Routine 08/07/2021 10:55 AM CDT INCISION AND DRAINAGE Routine 08/06/2021 9:37 PM CDT S/P urological surgery EGFR Routine 08/06/2021 9:13 PM CDT CBC WITHOUT DIFFERENTIAL Routine 08/06/2021 9:13 PM CDT BASIC METABOLIC PANEL Routine 08/06/2021 9:13 PM CDT IR FOLLOW UP INPATIENT IP Routine 08/06/2021 1:35 PM CDT AEROBIC AND ANAEROBIC CULTURE AND GRAM STAIN Routine 08/06/2021 10:54 AM CDT POCT GLUCOSE DEVICE Routine 08/06/2021 9 :42 AM CDT POCT GLUCOSE DEVICE Routine 08/06/2021 6 :40 AM CDT POCT CREATININE - DEVICE Routine 08/05/2021 11:42 PM CDT POC BLOOD GAS AND CHEMISTRIES, ARTERIAL Routine 08/05/2021 11:36 PM CDT URINALYSIS AND REFLEX TO MICROSCOPIC AND CULTURE STAT 08/05/2021 10:14 PM CDT URINALYSIS, MICROSCOPIC ONLY STAT 08/05/2021 10:14 PM CDT URINE CULTURE STAT 08/05/2021 10:[address] ABDOMEN PELVIS W CONTRAST ED Urgent/IP Urgent 08/05/2021 9:41 PM CDT COVID-19 CORONAVIRUS RNA Routine 08/05/2021 9:12 PM CDT EGFR STAT 08/05/2021 9:12 PM CDT DIFFERENTIAL AUTO STAT 08/05/2021 9:1 2 PM CDT CBC WITH AUTO DIFFERENTIAL STAT 08/05/2021 9:12 PM CDT BLOOD CULTURE STAT 08/05/2021 9:12 PM CDT BLOOD CULTURE STAT 08/05/2021 9:12 PM CDT ERYTHROCYTE SEDIMENTATION RATE STAT 08/05/2021 9:12 PM CDT CRP (ACUTE PHASE) STAT 08/05/2021 9:1 2 PM CDT CREATINE KINASE (CK), TOTAL STAT 08/05/2021 9:12 PM CDT BASIC METABOLIC PANEL STAT 08/05/2021 9:12 PM CDT documented in this encounter Results * COVID-19 Coronavirus RNA Nasopharyngeal (08/11/2021 12:39 PM CDT) COVID-19 RNA Negative Negative [facility] Comment: Interpretive data: Synonyms for this test include: PCR and NAAT . ??This test is performed using the [employer] Xpert Xpress assay. This is a real-time RT-PCR test intended for the qualitative detection of nucleic acid from the SARS-CoV-2. This assay has been reviewed by the FDA for Emergency Use Authorization (EUA). The performance characteristics have been verified by the performing laboratory. Results must be considered in the clinical context and a negative result does not rule out infection. Interpretive data last revised December 12, 2020. First COVID-19 test? No [facility] Employeed in healthcare? No [facility] status? No [facility] Group care resident? Yes [facility] Hospitalized? Yes [facility] Is patient in ICU? No [facility] Symptomatic as defined by CDC? No [facility] Nasopharyngeal 08/11/2021 12 :39 PM CDT 08/11/2021 1:25 PM CDT Narrative [facility] - 08/11/2021 2:25 PM CDT What is the reason for testing?->Placement in post-acute care setting Harvey Tierney MD LAB MICROBIOLOGY - GENERAL ORDERABLES Final Result [facility] Department [place] [address] * (ABNORMAL) eGFR (08/10/2021 9:41 PM CDT) eGFR >90(H) 90 - 130 mL/min/1.7 3 m2 [facility] Comment: Interpretive Data Reference Interval Normal ?>/= 90 mL/min/1.73m2 Mildly decreased* ? 60 - 89 mL/min/1.73m2 Mildly to moderately decreased ?45 - 59 mL/min/1.73m2 Moderately to severely decreased ??30 - 44 mL/min/1.73m2 Severely decreased ?15 - 29 mL/min/1.73m2 Kidney Failure ?< 15 ??mL/min/1.73m2 *Relative to young adult level Estimated glomerular filtration rate is determined by the CKD-EPI equation recommended by the National Kidney Foundation (KDIGO 2012 Clinical Practice Guideline for the Evaluation and Management of Chronic Kidney Disease. Kidney Intnl Suppl Nov 2012;3:1). The CKD-EPI equation should not be used for patients with unstable renal function and has not been validated in children and those over 70. Current interpretive data was last reviewed 2020 Blood 08/10/2021 9:41 PM CDT 08/10/2021 10:07 PM CDT Hakeem Warren MD LAB BLOOD ORDERABLES Fi nal Result Performing Organization Address [facility]/ZIP Co de Phone Number [facility] Department [place] [address] * (ABNORMAL) CBC without differential (08/10/2021 9:41 PM CDT) WBC 6.3 3.8 - 9.9 K/cumm [facility] Hgb 11.8(L) 13.0 - 17.5 g/dL [facility] Hct 36.5(L) 38.9 - 50.3 % [facility] Plt 287 150 - 400 K/cumm [facility] MPV 12.3 9.1 - 12.3 fL [facility] RBC 4.59 4.30 - 5.80 M/cumm [facility] MCV 79.5(L) 81.3 - 96.4 fL [facility] MCH 25.7(L) 27.1 - 33.3 pg [facility] MCHC 32.3 32.3 - 35.7 g/dL [facility] RDW CV 16.5(H) 11.1 - 14.9 % [facility] RDW SD 47.5 35.7 - 48.1 fL [facility] NRBC abs 0.00 0.00 - 0.01 K/cumm [facility] Blood 08/10/2021 9:41 PM CDT 08/10/2021 10:08 PM CDT Hakeem Warren MD LAB BLOOD ORDERABLES Fi nal Result [facility] [place] [address] * (ABNORMAL) Basic metabolic panel (08/10/2021 9:41 PM CDT) Sodium 137 135 - 145 mmol/L [facility] Potassium, pl 3.7 3.3 - 4.9 mmol/L [facility] Chloride 103 97 - 110 mmol/L [facility] CO2 27 22 - 32 mmol/L [facility] Anion gap 7 2 - 15 mmol/L [facility] BUN 6(L) 8 - 25 mg/dL [facility] Creatinine 0.52(L) 0.80 - 1.30 mg/dL [facility] Glucose 111 70 - 199 mg/dL [facility] Comment: Interpretive Data Fasting glucose >/= [...] classification and Diagnosis of Diabetes Diabetes Care 2017;40 (Suppl. 1):S11. Current interpretive data was last revised 2017. Calcium 9.3 8.5 - 10.3 mg/dL [facility] Blood 08/10/2021 9:41 PM CDT 08/10/2021 10:07 PM CDT us Hakeem Warren MD LAB BLOOD ORDERABLES Fi nal Result [facility] Department [place] [address] * XR Abdomen Ap 1 Vw (08/10/2021 8:56 PM CDT) Anatomical Region Laterality Modality Body, Abdomen N/A Computed Radiogr aphy 08/11/2021 9:28 AM CDT Impressions 08/11/2021 10:34 AM CDT A single view of the abdomen is submitted for evaluation. The bowel gas pattern is within normal limits. ??Osteopenia is noted over the pelvis. ??There is extensive heterotopic ossification about the hips. ??An intramedullary hany is partially visualized in the left femur. ??Surgical clips project over the left hip and right upper quadrant. Dictated by: Miguel Hirsch MD, PHD The radiology attending physician has personally reviewed this study, and had reviewed and/or edited this written report and agrees with it. Electronically signed by: Ladi Armenta M.D. Narrative 08/11/2021 10:34 AM CDT EXAMINATION: Abdomen, one view. HISTORY: Abdominal pain. COMPARISON: CT abdomen pelvis 07/28/2021 Procedure Note Ladi Armenta MD - 08/11/2021 EXAMINATION: Abdomen, one view. HISTORY: Abdominal pain. COMPARISON: CT abdomen pelvis 07/28/2021 IMPRESSION: A single view of the abdomen is submitted for evaluation. The bowel gas pattern is within normal limits. Osteopenia is noted over the pelvis. There is extensive heterotopic ossification about the hips. An intramedullary hany is partially visualized in the left femur. Surgical clips project over the left hip and right upper quadrant. Dictated by: Miguel Hirsch MD, PHD The radiology attending physician has personally reviewed this study, and had reviewed and/or edited this written report and agrees with it. Electronically signed by: Ladi Armenta M.D. us Harvey Tierney MD IMG XR PROCEDURES Final Res ult * ECG 12 lead (08/10/2021 5:08 PM CDT) Ventricular Rate EKG/Min 54 BPM [facility] Atrial Rate 54 BPM [facility] ID-Interval (MSEC) 174 ms [facility] QRS-Interval (MSEC) 106 ms [facility] QT-Interval (MSEC) 468 ms [facility] QTc 443 ms [facility] P [place] 41 degrees [facility] R [place] 58 degrees [facility] T [place] 32 degrees [facility] Diagnosis Sinus bradycardia Otherwise normal ECG When compared with ECG of 08-APR-2021 17:12, Vent. rate has decreased BY ??32 BPM Nonspecific T wave abnormality no longer evident in Inferior leads Nonspecific T wave abnormality no longer evident in Lateral leads Confirmed by CARRINGTON GONZALES M.D ([id number]) on 08/11/2021 4:03:20 PM [facility] 08/10/2021 5:08 PM CDT 08/11/2021 4:03 PM CDT us Harvey Tierney MD ECG ORDERABLES Final Resul t [facility] * eGFR (08/09/2021 9:04 PM CDT) Pathologist [facility] eGFR >90 90 - 130 mL/min/1.7 3 m2 [facility] Comment: Interpretive Data Reference Interval Normal ?>/= 90 mL/min/1.73m2 Mildly decreased* ? 60 - 89 mL/min/1.73m2 Mildly to moderately decreased ?45 - 59 mL/min/1.73m2 Moderately to severely decreased ??30 - 44 mL/min/1.73m2 Severely decreased ?15 - 29 mL/min/1.73m2 Kidney Failure ?< 15 ??mL/min/1.73m2 *Relative to young adult level Estimated glomerular filtration rate is determined by the CKD-EPI equation recommended by the National Kidney Foundation (KDIGO 2012 Clinical Practice Guideline for the Evaluation and Management of Chronic Kidney Disease. Kidney Intnl Suppl Nov 2012;3:1). The CKD-EPI equation should not be used for patients with unstable renal function and has not been validated in children and those over 70. Current interpretive data was last reviewed 2020 Blood 08/09/2021 9:04 PM CDT 08/09/2021 9:38 PM CDT us Hakeem Warren MD LAB BLOOD ORDERABLES Fi nal Result [facility] Department [place] [address] * (ABNORMAL) CBC without differential (08/09/2021 9:04 PM CDT) Pathologist [facility] WBC 6.3 3.8 - 9.9 K/cumm [facility] Hgb 10.7(L) 13.0 - 17.5 g/dL [facility] Hct 33.4(L) 38.9 - 50.3 % [facility] Plt 232 150 - 400 K/cumm [facility] MPV 11.8 9.1 - 12.3 fL [facility] RBC 4.15(L) 4.30 - 5.80 M/cumm [facility] MCV 80.5(L) 81.3 - 96.4 fL [facility] MCH 25.8(L) 27.1 - 33.3 pg [facility] MCHC 32.0(L) 32.3 - 35.7 g/dL [facility] RDW CV 16.9(H) 11.1 - 14.9 % [facility] RDW SD 50.2(H) 35.7 - 48.1 fL [facility] NRBC abs 0.00 0.00 - 0.01 K/cumm [facility] Blood 08/09/2021 9:04 PM CDT 08/09/2021 9:38 PM CDT Hakeem Warren MD LAB BLOOD ORDERABLES Fi nal Result [facility] Department [place] [address] * (ABNORMAL) Basic metabolic panel (08/09/2021 9:04 PM CDT) [facility] Sodium 137 135 - 145 mmol/L [facility] Potassium, pl 4.5 3.3 - 4.9 mmol/L [facility] Chloride 106 97 - 110 mmol/L [facility] CO2 26 22 - 32 mmol/L [facility] Anion gap 5 2 - 15 mmol/L [facility] BUN 7(L) 8 - 25 mg/dL [facility] Creatinine 0.68(L) 0.80 - 1.30 mg/dL [facility] Glucose 96 70 - 199 mg/dL [facility] Comment: Interpretive Data Fasting glucose >/= [...] classification and Diagnosis of Diabetes Diabetes Care 2017;40 (Suppl. 1):S11. Current interpretive data was last revised 2017. Calcium 8.6 8.5 - 10.3 mg/dL [facility] Blood 08/09/2021 9:04 PM CDT 08/09/2021 9:38 PM CDT us Hakeem Warren MD LAB BLOOD ORDERABLES Fi nal Result [facility] Department [place] [address] * eGFR (08/08/2021 8:24 PM CDT) eGFR >90 90 - 130 mL/min/1.7 3 m2 [facility] Comment: Interpretive Data Reference Interval Normal ?>/= 90 mL/min/1.73m2 Mildly decreased* ? 60 - 89 mL/min/1.73m2 Mildly to moderately decreased ?45 - 59 mL/min/1.73m2 Moderately to severely decreased ??30 - 44 mL/min/1.73m2 Severely decreased ?15 - 29 mL/min/1.73m2 Kidney Failure ?< 15 ??mL/min/1.73m2 *Relative to young adult level Estimated glomerular filtration rate is determined by the CKD-EPI equation recommended by the National Kidney Foundation (KDIGO 2012 Clinical Practice Guideline for the Evaluation and Management of Chronic Kidney Disease. Kidney Intnl Suppl Nov 2012;3:1). The CKD-EPI equation should not be used for patients with unstable renal function and has not been validated in children and those over 70. Current interpretive data was last reviewed 2020 Blood 08/08/2021 8:24 PM CDT 08/08/2021 9:00 PM CDT us Hakeem Warren MD LAB BLOOD ORDERABLES Fi nal Result [facility] [place] [address] * (ABNORMAL) CBC without differential (08/08/2021 8:24 PM CDT) WBC 6.8 3.8 - 9.9 K/cumm [facility] Hgb 9.9(L) 13.0 - 17.5 g/dL [facility] Hct 31.1(L) 38.9 - 50.3 % [facility] Plt 221 150 - 400 K/cumm [facility] MPV 11.9 9.1 - 12.3 fL [facility] RBC 3.93(L) 4.30 - 5.80 M/cumm [facility] MCV 79.1(L) 81.3 - 96.4 fL [facility] MCH 25.2(L) 27.1 - 33.3 pg [facility] MCHC 31.8(L) 32.3 - 35.7 g/dL [facility] RDW CV 16.7(H) 11.1 - 14.9 % [facility] RDW SD 48.6(H) 35.7 - 48.1 fL [facility] NRBC abs 0.00 0.00 - 0.01 K/cumm [facility] Blood 08/08/2021 8:24 PM CDT 08/08/2021 9:01 PM CDT us Hakeem Warren MD LAB BLOOD ORDERABLES Fi nal Result [facility] Department [place] [address] * (ABNORMAL) Basic metabolic panel (08/08/2021 8:24 PM CDT) Pathologist [facility] Sodium 139 135 - 145 mmol/L [facility] Potassium, pl 3.9 3.3 - 4.9 mmol/L [facility] Chloride 104 97 - 110 mmol/L [facility] CO2 25 22 - 32 mmol/L [facility] Anion gap 10 2 - 15 mmol/L [facility] BUN 7(L) 8 - 25 mg/dL [facility] Creatinine 0.74(L) 0.80 - 1.30 mg/dL [facility] Glucose 95 70 - 199 mg/dL [facility] Comment: Interpretive Data Fasting glucose >/= [...] classification and Diagnosis of Diabetes Diabetes Care 2017;40 (Suppl. 1):S11. Current interpretive data was last revised 2017. Calcium 8.8 8.5 - 10.3 mg/dL [facility] Blood 08/08/2021 8:24 PM CDT 08/08/2021 9:00 PM CDT us Hakeem Warren MD LAB BLOOD ORDERABLES Fi nal Result Performing Organization Address City/[facility]/ZIP Co de Phone Number [facility] Department [place] [address] * (ABNORMAL) eGFR (08/07/2021 8:47 PM CDT) Pathologist [facility] eGFR >90(H) 90 - 130 mL/min/1.7 3 m2 [facility] Comment: Interpretive Data Reference Interval Normal ?>/= 90 mL/min/1.73m2 Mildly decreased* ? 60 - 89 mL/min/1.73m2 Mildly to moderately decreased ?45 - 59 mL/min/1.73m2 Moderately to severely decreased ??30 - 44 mL/min/1.73m2 Severely decreased ?15 - 29 mL/min/1.73m2 Kidney Failure ?< 15 ??mL/min/1.73m2 *Relative to young adult level Estimated glomerular filtration rate is determined by the CKD-EPI equation recommended by the National Kidney Foundation (KDIGO 2012 Clinical Practice Guideline for the Evaluation and Management of Chronic Kidney Disease. Kidney Intnl Suppl Nov 2012;3:1). The CKD-EPI equation should not be used for patients with unstable renal function and has not been validated in children and those over 70. Current interpretive data was last reviewed 2020 Blood 08/07/2021 8:47 PM CDT 08/07/2021 9:05 PM CDT us Hakeem Warren MD LAB BLOOD ORDERABLES Fi nal Result [facility] [place] [address] * (ABNORMAL) CBC without differential (08/07/2021 8:47 PM CDT) WBC 7.6 3.8 - 9.9 K/cumm [facility] Hgb 10.0(L) 13.0 - 17.5 g/dL [facility] Hct 31.8(L) 38.9 - 50.3 % [facility] Plt 199 150 - 400 K/cumm [facility] MPV 11.5 9.1 - 12.3 fL [facility] RBC 4.07(L) 4.30 - 5.80 M/cumm [facility] MCV 78.1(L) 81.3 - 96.4 fL [facility] MCH 24.6(L) 27.1 - 33.3 pg [facility] MCHC 31.4(L) 32.3 - 35.7 g/dL [facility] RDW CV 16.7(H) 11.1 - 14.9 % [facility] RDW SD 47.1 35.7 - 48.1 fL [facility] NRBC abs 0.00 0.00 - 0.01 K/cumm [facility] Blood 08/07/2021 8:47 PM CDT 08/07/2021 9:06 PM CDT us Hakeem Warren MD LAB BLOOD ORDERABLES Fi nal Result [facility] [place] [address] * (ABNORMAL) Basic metabolic panel (08/07/2021 8:47 PM CDT) Sodium 137 135 - 145 mmol/L [facility] Potassium, pl 3.1(L) 3.3 - 4.9 mmol/L [facility] Chloride 103 97 - 110 mmol/L [facility] CO2 24 22 - 32 mmol/L [facility] Anion gap 10 2 - 15 mmol/L [facility] BUN 7(L) 8 - 25 mg/dL [facility] Creatinine 0.57(L) 0.80 - 1.30 mg/dL [facility] Glucose 115 70 - 199 mg/dL [facility] Comment: Interpretive Data Fasting glucose >/= [...] classification and Diagnosis of Diabetes Diabetes Care 2017;40 (Suppl. 1):S11. Current interpretive data was last revised 2017. Calcium 8.5 8.5 - 10.3 mg/dL [facility] Blood 08/07/2021 8:47 PM CDT 08/07/2021 9:05 PM CDT us Hakeem Warren MD LAB BLOOD ORDERABLES Fi nal Result Performing Organization Address [facility] de Phone Number [facility] [place] [address] * Mycology (fungal) culture Aspirate Lumbar vertebrae #5 (08/07/2021 10:55 AM CDT) Report Final Report: No growth of fungus [facility] Aspirate (Lumbar vertebrae #5) 08/07/2021 10:55 AM CDT 08/07/2021 1:34 PM CDT Narrative [facility] - 09/04/2021 9:36 AM CDT Lumbar Paraspinal Aspiration Testing performed by [facility] ([phone]). us Harvey Tierney MD LAB MICROBIOLOGY - GENERAL ORDERABLES Final Result Performing Organization Address [facility] de Phone Number [facility] Department [place] [address] * Aerobic and anaerobic culture and gram stain Aspirate Lumbar vertebrae #5 (08/07/2021 10:55 AM CDT) Direct Specimen Exam Stain: Few polymorphonuclear leukocytes seen. No organisms seen. [facility] Report Final Report: No growth [facility] Aspirate (Lumbar vertebrae #5) 08/07/2021 10:55 AM CDT 08/07/2021 1:33 PM CDT Narrative [facility] - 08/12/2021 12:01 PM CDT Lumbar Paraspinal Aspiration Testing performed by [facility] ([phone]) Specimens submitted from normally sterile body sites [...] data was last revised on 2020. us Harvey Tierney MD LAB MICROBIOLOGY - GENERAL ORDERABLES Final Result [facility] [place] [address] * IR Fluid Aspiration (08/07/2021 10:55 AM CDT) Anatomical Region Laterality Modality Body N/A Computed Tomogra phy 08/07/2021 11:3 6 AM CDT Impressions 08/07/2021 1:55 PM CDT 1. ??Right posterior paraspinal fluid collection aspiration under CT guidance. Approximately 0.3 mL sanguinous fluid was collected and sent for Gram stain and culture. Insufficient aspirate was obtained for additional testing. Dictated by: Mono Monroe M.D. The radiology attending physician has personally reviewed this study, and had reviewed and/or edited this written report and agrees with it. Electronically signed by: Terrence Bennett M.D. Narrative 08/07/2021 1:55 PM CDT EXAMINATION: ??Right lumbar paraspinal fluid collection aspiration under CT guidance HISTORY: 35-year-old with paraplegia, with soft tissue stranding and phlegmonous collection the paraspinal muscles on the right at the level of L3. Aspiration requested. ATTENDING PRESENCE: Dr. Terrence Bennett M.D., the attending radiologist, was present from the beginning to the end of the procedure. SEDATION: The patient did not require conscious sedation for the procedure. TECHNIQUE: ??The risks, benefits and alternatives were discussed and informed consent was obtained. ??Prior to beginning the procedure, [place] Protocol was performed to confirm the patient's identity and the planned procedure. Sterile barriers used during the procedure included cap, mask, hand hygiene, sterile gloves, and sterile drape. ??Chloraprep was used for cutaneous antisepsis. The patient was placed prone on the CT ??table. ??The right paraspinal collection was localized with CT guidance. ??Local anesthesia was achieved with subcutaneous injection of 1% lidocaine 3 mL. ??An 18-gauge ??needle was then introduced into the collection under CT guidance. ??Approximately 0.3 mL viscous bloody fluid was aspirated after sampling multiple portions of the collection. The needle was removed. ??The skin was cleansed with hydrogen peroxide, and a bandage was placed. ?? Complication: None Type: None ?? ESTIMATED BLOOD LOSS: None CONDITION: Stable condition. DISCHARGED TO: Home FINDINGS: Initial CT images redemonstrated soft tissue thickening with stranding of the level of L3 extending from midline to the paraspinal musculature on the right. Diffuse atrophy is noted of the paraspinal and iliopsoas muscles, consistent with history of paraplegia. There is extensive destruction and disorganization at the lumbosacral junction, consistent with Charcot spinal arthropathy. CT images confirm appropriate position of the needle tip within the collection. Dr. Mono Monroe M.D. (radiology asst) was present and participated in the procedure. Procedure Note Terrence Bennett MD - 08/07/2021 EXAMINATION: Right lumbar paraspinal fluid collection aspiration under CT guidance HISTORY: 35-year-old with paraplegia, with soft tissue stranding and phlegmonous collection the paraspinal muscles on the right at the level of L3. Aspiration requested. ATTENDING PRESENCE: Dr. Terrence Bennett M.D., the attending radiologist, was present from the beginning to the end of the procedure. SEDATION: The patient did not require conscious sedation for the procedure. TECHNIQUE: The risks, benefits and alternatives were discussed and informed consent was obtained. Prior to beginning the procedure, [place] Protocol was performed to confirm the patient's identity and the planned procedure. Sterile barriers used during the procedure included cap, mask, hand hygiene, sterile gloves, and sterile drape. Chloraprep was used for cutaneous antisepsis. The patient was placed prone on the CT table. The right paraspinal collection was localized with CT guidance. Local anesthesia was achieved with subcutaneous injection of 1% lidocaine 3 mL. An 18-gauge needle was then introduced into the collection under CT guidance. Approximately 0.3 mL viscous bloody fluid was aspirated after sampling multiple portions of the collection. The needle was removed. The skin was cleansed with hydrogen peroxide, and a bandage was placed. Complication: None Type: None ESTIMATED BLOOD LOSS: None CONDITION: Stable condition. DISCHARGED TO: Home FINDINGS: Initial CT images redemonstrated soft tissue thickening with stranding of the level of L3 extending from midline to the paraspinal musculature on the right. Diffuse atrophy is noted of the paraspinal and iliopsoas muscles, consistent with history of paraplegia. There is extensive destruction and disorganization at the lumbosacral junction, consistent with Charcot spinal arthropathy. CT images confirm appropriate position of the needle tip within the collection. Dr. Mono Monroe M.D. (radiology asst) was present and participated in the procedure. IMPRESSION: 1. Right posterior paraspinal fluid collection aspiration under CT guidance. Approximately 0.3 mL sanguinous fluid was collected and sent for Gram stain and culture. Insufficient aspirate was obtained for additional testing. Dictated by: Mono Monroe M.D. The radiology attending physician has personally reviewed this study, and had reviewed and/or edited this written report and agrees with it. Electronically signed by: Terrence Bennett M.D. us Harvey Tierney MD IMG IR PROCEDURES Final Res ult * Incision and Drainage (08/06/2021 9:37 PM CDT) Narrative Teodora Soliman MD - 08/06/2021 9:37 PM CDT Marcos Spencer MD ? 08/06/2021 10:09 PM Incision and Drainage Date/Time: 08/06/2021 9:37 PM Performed by: Marcos Spencer MD Authorized by: Marcos Spencer MD [place] Protocol: RN Notified of Procedure: yes ?? Informed consent: ??Risks, benefits, alternatives discussed and patient/operations representative/guardian agrees and accepts Patient's stated name/ matches armband: ??Yes Consent form signed, dated, timed; matches correct patient, intended procedure and site: ??Yes us Marcos Spencer MD IN CLINIC/BEDSIDE ORD ERABLES Final Result * eGFR (08/06/2021 9:13 PM CDT) Pathologist [facility] eGFR >90 90 - 130 mL/min/1.7 3 m2 [facility] Comment: Interpretive Data Reference Interval Normal ?>/= 90 mL/min/1.73m2 Mildly decreased* ? 60 - 89 mL/min/1.73m2 Mildly to moderately decreased ?45 - 59 mL/min/1.73m2 Moderately to severely decreased ??30 - 44 mL/min/1.73m2 Severely decreased ?15 - 29 mL/min/1.73m2 Kidney Failure ?< 15 ??mL/min/1.73m2 *Relative to young adult level Estimated glomerular filtration rate is determined by the CKD-EPI equation recommended by the National Kidney Foundation (KDIGO 2012 Clinical Practice Guideline for the Evaluation and Management of Chronic Kidney Disease. Kidney Intnl Suppl Nov 2012;3:1). The CKD-EPI equation should not be used for patients with unstable renal function and has not been validated in children and those over 70. Current interpretive data was last reviewed 2020 Blood 08/06/2021 9:13 PM CDT 08/06/2021 9:29 PM CDT us Hakeem Warren MD LAB BLOOD ORDERABLES Fi nal Result [facility] Department [place] [address] * (ABNORMAL) CBC without differential (08/06/2021 9:13 PM CDT) [facility] WBC 8.0 3.8 - 9.9 K/cumm [facility] Hgb 10.4(L) 13.0 - 17.5 g/dL [facility] Hct 33.1(L) 38.9 - 50.3 % [facility] Plt 154 150 - 400 K/cumm [facility] MPV 12.3 9.1 - 12.3 fL [facility] RBC 4.13(L) 4.30 - 5.80 M/cumm [facility] MCV 80.1(L) 81.3 - 96.4 fL [facility] MCH 25.2(L) 27.1 - 33.3 pg [facility] MCHC 31.4(L) 32.3 - 35.7 g/dL [facility] RDW CV 17.2(H) 11.1 - 14.9 % [facility] RDW SD 50.0(H) 35.7 - 48.1 fL [facility] NRBC abs 0.00 0.00 - 0.01 K/cumm [facility] Blood 08/06/2021 9:13 PM CDT 08/06/2021 9:29 PM CDT us Hakeem Warren MD LAB BLOOD ORDERABLES [facility] Result [facility] Department [place] [address] * (ABNORMAL) Basic metabolic panel (08/06/2021 9:13 PM CDT) Sodium 134(L) 135 - 145 mmol/L [facility] Potassium, pl See Comment 3.3 - 4.9 mmol/L [facility] Comment:Credited; Hemolyzed Specimen Chloride 102 97 - 110 mmol/L [facility] CO2 23 22 - 32 mmol/L [facility] Anion gap 9 2 - 15 mmol/L [facility] BUN 8 8 - 25 mg/dL [facility] Creatinine 0.61(L) 0.80 - 1.30 mg/dL [facility] Glucose 97 70 - 199 mg/dL [facility] Comment: Interpretive Data Fasting glucose >/= [...] classification and Diagnosis of Diabetes Diabetes Care 2017;40 (Suppl. 1):S11. Current interpretive data was last revised 2017. Calcium 8.5 8.5 - 10.3 mg/dL [facility] Blood 08/06/2021 9:13 PM CDT 08/06/2021 9:29 PM CDT us Hakeem Warren MD LAB BLOOD ORDERABLES Fi nal Result [facility] Department [place] [address] * IR Follow Up Inpatient (08/06/2021 1:35 PM CDT) Anatomical Region Laterality Modality X-Ray Angiograph y 08/06/2021 1:50 PM CDT Impressions 08/06/2021 1:50 PM CDT Catheter was removed successfully at bedside, patient tolerated the procedure well there were no apparent complications. PLAN: No further follow-up is required with [facility] at this time as patient's percutaneous abscess drain was successfully removed at bedside. ??The dressing is to remain in place for 24 hours, at that time it can be removed and replaced daily until a scab forms over the catheter exit site. ??Once a scab forms over the catheter exit site, the area may be left open to air. ?? If questions arise, please contact us by calling [phone]. Electronically signed by: Jenna Carrasco 08/06/2021 1:50 PM CDT EXAMINATION: ??DRAINAGE CATHETER REMOVAL AT BEDSIDE HISTORY: ??35-year-old man with paraplegia and bilateral below the knee amputations who had a percutaneous abscess drain placed in a left pericolic gutter fluid collection by [facility] on 05/22/2021. ??Patient was a no-show to as follow-up. 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 CT scan obtained yesterday demonstrates the left abdominal percutaneous abscess drain is now in a resolved left pericolic gutter collection. ??Case was discussed with VIR attending and it was felt the patient is appropriate for bedside removal of his percutaneous abscess drain. PROVIDER PRESENCE: ??Jenna Oakley PA-C, was present from the beginning to the end of the procedure. ?? Omar Camara M.D. was also present during the procedure. SEDATION: ??The patient did not require conscious sedation for the procedure. TECHNIQUE: Prior to beginning the procedure, [place] Protocol was used to confirm the patient's identity and planned procedure. The sutures on the catheter were cut and the catheter was removed without difficulty at bedside. A sterile dressing was applied to the skin site. ESTIMATED BLOOD LOSS: Minimal. CONDITION: Stable DISCHARGED TO: Patient care division, procedure was performed at bedside. FINDINGS: The catheter was draining scant serous fluid. Procedure Note Jenna Oakley PA - 08/06/2021 EXAMINATION: DRAINAGE CATHETER REMOVAL AT BEDSIDE HISTORY: 35-year-old man with paraplegia and bilateral below the knee amputations who had a percutaneous abscess drain placed in a left pericolic gutter fluid collection by [facility] on 05/22/2021. Patient was a no-show to as follow-up. 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 CT scan obtained yesterday demonstrates the left abdominal percutaneous abscess drain is now in a resolved left pericolic gutter collection. Case was discussed with VIR attending and it was felt the patient is appropriate for bedside removal of his percutaneous abscess drain. PROVIDER PRESENCE: Jenna Oakley PA-C, was present from the beginning to the end of the procedure. Omar Camara M.D. was also present during the procedure. SEDATION: The patient did not require conscious sedation for the procedure. TECHNIQUE: Prior to beginning the procedure, [place] Protocol was used to confirm the patient's identity and planned procedure. The sutures on the catheter were cut and the catheter was removed without difficulty at bedside. A sterile dressing was applied to the skin site. ESTIMATED BLOOD LOSS: Minimal. CONDITION: Stable DISCHARGED TO: Patient care division, procedure was performed at bedside. FINDINGS: The catheter was draining scant serous fluid. IMPRESSION: Catheter was removed successfully at bedside, patient tolerated the procedure well there were no apparent complications. PLAN: No further follow-up is required with [facility] at this time as patient's percutaneous abscess drain was successfully removed at bedside. The dressing is to remain in place for 24 hours, at that time it can be removed and replaced daily until a scab forms over the catheter exit site. Once a scab forms over the catheter exit site, the area may be left open to air. If questions arise, please contact us by calling [phone]. Electronically signed by: Jenna Oakley us Harvey Tierney MD IMG IR PROCEDURES Final Res ult * (ABNORMAL) Aerobic and anaerobic culture and gram stain Wound Scrotum (08/06/2021 10:54 AM CDT) Direct Specimen Exam Stain: Abundant polymorphonuclear leukocytes seen. No organisms seen. Slide reviewed. ??Review is consistent with original read. [facility] Report Final Report: Moderate Morganella morganii Rare Yeast Rare Pseudomonas aeruginosa * ??* ??* ??* ??* ??* ??* ??* ??* ??* ??* ??* ??* ??* ??* ??* ??* ??* ??* ??* Few Mixed genitourinary tract microorganisms. (.) [facility] Organism MORGANELLA MORGANII [facility] Organism PSEUDOMONAS AERUGINOSA [facility] Organism MIXED GENITOURINARY TRACT MICROORGANISMS. [facility] Organism YEAST [facility] Wound (Scrotum) 08/06/2021 1 0:54 AM CDT 08/06/2021 11:28 AM CDT Narrative [facility] - 08/12/2021 12:59 PM CDT Testing performed by [facility] ([phone]) Specimens submitted from normally sterile body sites [...] interpretive data was last revised on 2020. Organism Antibiotic Method Susceptibility Morganella morganii Ampicillin INTERPRETATION Resistant Morganella morganii Cefazolin INTERPRETATION Resistant Morganella morganii Gentamicin INTERPRETATION Susceptible Morganella morganii Ampicillin with Sulbactam INTERPRE TATION Resistant Morganella morganii Trimethoprim with Sulfamethoxazole INTERPRETATION Susceptible Morganella morganii Meropenem INTERPRETATION Susceptible Morganella morganii Cefepime INTERPRETATION Susceptible Morganella morganii Ciprofloxacin INTERPRETATION Susceptible Morganella morganii Ceftazidime INTERPRETATION Resistant Morganella morganii Ceftriaxone INTERPRETATION Resistant Morganella morganii Piperacillin/Tazobactam INTERPRETA TION Resistant Morganella morganii Amikacin INTERPRETATION Susceptible Morganella morganii Aztreonam INTERPRETATION Resistant Morganella morganii Imipenem INTERPRETATION Susceptible Morganella morganii Ertapenem INTERPRETATION Susceptible Morganella morganii Minocycline INTERPRETATION Resistant Morganella morganii Tobramycin INTERPRETATION Susceptible Morganella morganii Doxycycline INTERPRETATION Resistant Pseudomonas aeruginosa Aztreonam INTERPRETATION Resistant Pseudomonas aeruginosa Ceftazidime INTERPRETATION Susceptible Pseudomonas aeruginosa Ciprofloxacin INTERPRETATION Susceptible Pseudomonas aeruginosa Cefepime INTERPRETATION Susceptible Pseudomonas aeruginosa Gentamicin INTERPRETATION Susceptible Pseudomonas aeruginosa Imipenem INTERPRETATION Susceptible Pseudomonas aeruginosa Meropenem INTERPRETATION Susceptible Pseudomonas aeruginosa Piperacillin/Tazobactam INTERPR ETATION Susceptible Pseudomonas aeruginosa Tobramycin INTERPRETATION Susceptible Hakeem Merino MD LAB MICROBIOLOGY - G ENERAL ORDERABLES Final Result Performing Organization Address City/[facility]/ZIP Co de Phone Number [facility] [place] [address] * POCT glucose (08/06/2021 9:42 AM CDT) [facility] Signature Glucose, POC 90 70 - 199 mg/dL [facility] Blood 08/06/2021 9:42 AM CDT 08/06/2021 9:42 AM CDT Hakeem Merino MD LAB POCT ORDERABLES - DEVICE Final Result Performing Organization Address [facility]/ZIP Co de Phone Number [facility] Department [place] [address] * POCT glucose (08/06/2021 6:40 AM CDT) Glucose, POC 78 70 - 199 mg/dL [facility] Blood 08/06/2021 6:40 AM CDT 08/06/2021 6:40 AM CDT us Michelle Castle MD LAB POCT ORDERABLES - DEVICE F inal Result [facility] Department [place] [address] * POCT creatinine (08/05/2021 11:42 PM CDT) Creatinine POC 0.7 0.7 - 1.3 mg/dL [facility] Blood 08/05/2021 11:4 2 PM CDT 08/05/2021 11:42 PM CDT us Hakeem Warren MD LAB POCT ORDERABLES - D EVICE Final Result Performing Organization Address City/[facility] Co de Phone Number [facility] Department [place] [address] * POC Blood Gas and Chemistries, Arterial - (08/05/2021 11:36 PM CDT) Lactate, POC 2.1 0.7 - 2.2 mmol/L [facility] Blood 08/05/2021 11:3 6 PM CDT 08/05/2021 11:36 PM CDT us Hakeem Warren MD LAB POCT ORDERABLES - D EVICE Final Result Performing Organization Address City/[facility]/ZIP Co de Phone Number [facility] Department [place] [address] * (ABNORMAL) Urinalysis, microscopic only (08/05/2021 10:14 PM CDT) WBC, ur 21-50(A) 0 - 5 /HPF [facility] RBC, ur 6-10(A) 0 - 2 /HPF [facility] Epithelial cells, squamous, ur 1-5 0 - 5 /HPF [facility] Bacteria, ur 1+(A) [facility] Mucous, ur Present(A) [facility] Hyaline casts, ur 1-5 0 - 10 /LPF [facility] Granular casts, ur 6-10(A) 0 - 0 /LPF [facility] Urine 08/05/2021 10:1 4 PM CDT 08/05/2021 10:20 PM CDT Darci Tomlin MD LAB URINE ORD ERABLES Final Result [facility] Department [place] [address] * (ABNORMAL) Urine culture Urine, suprapubic catheter (08/05/2021 10:14 PM CDT) Report Final Report: Greater than or equal to 100,000 colonies/mL of Morganella morganii Plus growth of clinically insignificant bacterial meir. (.) [facility] Organism MORGANELLA MORGANII [facility] Organism PLUS GROWTH OF CLINICALLY INSIGNIFICANT MEIR. [facility] Urine, suprapubic catheter 08/05/2021 10:14 PM CDT 08/05/2021 10:21 PM CDT Narrative [facility] - 08/09/2021 12:14 PM CDT Indications for Culture:->Urology patient Testing performed by [facility] ([phone]) Organism Antibiotic Method Susceptibility Morganella morganii Ampicillin INTERPRETATION Resistant Morganella morganii Cefazolin INTERPRETATION Resistant Morganella morganii Nitrofurantoin INTERPRETATION Resistant Morganella morganii Gentamicin INTERPRETATION Susceptible Morganella morganii Trimethoprim with Sulfamethoxazole INTERPRETATION Susceptible Morganella morganii Meropenem INTERPRETATION Susceptible Morganella morganii Cefepime INTERPRETATION Susceptible Morganella morganii Ciprofloxacin INTERPRETATION Susceptible Morganella morganii Ceftazidime INTERPRETATION Resistant Morganella morganii Ceftriaxone INTERPRETATION Resistant Morganella morganii Piperacillin/Tazobactam INTERPRETA TION Resistant Morganella morganii Amikacin INTERPRETATION Susceptible Morganella morganii Aztreonam INTERPRETATION Resistant Morganella morganii Imipenem INTERPRETATION Susceptible Morganella morganii Ertapenem INTERPRETATION Susceptible Morganella morganii Minocycline INTERPRETATION Resistant Morganella morganii Tobramycin INTERPRETATION Susceptible Morganella morganii Doxycycline INTERPRETATION Resistant Morganella morganii Ampicillin with Sulbactam INTERPRE TATION Resistant us Darci Tomlin MD LAB M ICROBIOLOGY - GENERAL ORDERABLES Final Result [facility] Department [place] [address] * (ABNORMAL) Urinalysis reflex to microscopic and culture Urine (08/05/2021 10:14 PM CDT) Color, ur Fabi Yellow [facility] Clarity, ur Cloudy(A) Clear [facility] Specific gravity, ur 1.027(H) 1.010 - 1.025 [facility] pH, urine 5 [facility] Protein, ur ql 1+(A) Negative [facility] Glucose, ur ql Negative Negative [facility] Ketones, ur 2+(A) Negative [facility] Bilirubin, ur Negative Negative [facility] Blood, ur 1+(A) Negative [facility] Urobilinogen, ur <2.0 <2.0 mg/dL [facility] Nitrite, ur Positive(A) Negative [facility] Leukocyte esterase, ur 3+(A) Negative [facility] UA reflex comment Reflex to microscopic UA will be performed. [facility] Urine 08/05/2021 10:1 4 PM CDT 08/05/2021 10:18 PM CDT Narrative [facility] - 08/05/2021 10:27 PM CDT ?? Urine pH is affected by diet, medications, systemic acid-base disturbances, and renal tubular function. ??pH may affect urinary stone formation. ??For example, urine pH below 6.0 may help reduce the tendency for calcium phosphate stones and pH greater than 6.0 may reduce the tendency for uric acid stone formation. Source: [employer]. Last revised 11-18-2017 us Darci Tomlin MD LAB M ICROBIOLOGY - GENERAL ORDERABLES Final Result [facility] [place] [address] * CT Abdomen Pelvis W Contrast (08/05/2021 9:41 PM CDT) Anatomical Region Laterality Modality Body N/A Computed Tomogra phy 08/05/2021 10:0 9 PM CDT Impressions 08/06/2021 9:20 AM CDT 1. ??Interval progression of sacral decubitus ulcer, with locules of gas extending to the level of the sacrum. ??Redemonstrated extensive bony changes of the sacrum in keeping with chronic osteomyelitis. 2. ??Interval decrease in size of collection posterior to the right paraspinal muscles at the level of L3. 3. ??Sinus tracts extending from the posterior thigh skin to the left ischium and left femur, likely unchanged. 4. ??Unchanged skin thickening of the posterior left thigh, predominantly medially, likely inflammatory. ??No discrete fluid collection. 5. ??Interval increase in size of small fluid collection abutting the membranous urethra. ??This is favored to represent a urethral diverticulum, rather than an abscess. 6. ??Left abdominal percutaneous drain, with resolved left paracolic gutter collection. 7. ??Redemonstrated multiple cystic lesions of the kidneys, which are unchanged since 05/27/2021, but increased in size since 02/11/2012. Continued attention on follow-up imaging is recommended. 8. ??Scrotal edema without perifascial gas/tracking fascial gas to suggest CT surrogates of Pepe's gangrene. Dictated by: Zander Bojorquez M.D. The radiology attending physician has personally reviewed this study, and had reviewed and/or edited this written report and agrees with it. Electronically signed by: Edgar Hunter M.D. 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 TECHNIQUE: ??Transaxial computed tomographic images of the abdomen and pelvis were obtained with intravenous contrast according to the standard protocol after the uneventful administration of 100 mL Opti-Ray 350 intravenous contrast. COMPARISON: CT abdomen/pelvis 05/27/2021 FINDINGS: Limited views of the lower thorax demonstrate minimal bibasilar atelectasis. ??No pericardial effusion. The liver is normal. ??The gallbladder surgically absent. ??No biliary ductal dilatation. ??The spleen, pancreas and adrenal glands are normal. ??Unchanged size of well-circumscribed low attenuating lesions bilateral kidneys, however these are increased in size since 2012. No hydronephrosis. There is a percutaneous urinary catheter in a neobladder. ??The colon is normal without focal wall thickening. ??There are changes from prior bowel surgery, with patent appearing anastomoses in the lower abdomen. ??No intraperitoneal free air or fluid. ??There is a left inguinal hernia, containing sigmoid colon and fat, without evidence of obstruction. ??A percutaneous drain terminates in the left paracolic gutter, with resolved collection. There are extensive changes of chronic osteomyelitis of the sacrum and portions of the lower lumbar spine, which appears stable since previous examination. ??There are inflammatory changes in the subcutaneous tissues posterior to the sacrum, progressed since previous examination, with small pockets of gas extending to the level of the lower sacrum (series 2 image 173), without discrete fluid collection. ??This has increased in severity since previous examination. ??A sinus tract extending to the left ischium from the skin is unchanged since previous examination. ??There is skin thickening of the distal medial left thigh posteriorly, which is unchanged. ??A sinus tract extending to the left posterior femur was excluded from the [id number] on previous examination, where there is an intramedullary nail. There are bilateral hydroceles. ??There is a 1.9 x 1.1 cm collection inferior to the membranous urethra, which is larger than on previous examination (series 2 image 248). There are extensive bony changes of bilateral hips and acetabula, as well as left femur, without new bony erosion. ??The previously described collection posterior to the right paraspinal muscles at the level of L3 has decreased in size, now measuring 6.4 x 1.8 cm, previously 11.1 x 3.2 cm (series 2 image 119). The aorta and its branch vessels are normal in course and caliber. Note is made of an inferior vena cava filter. 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 TECHNIQUE: Transaxial computed tomographic images of the abdomen and pelvis were obtained with intravenous contrast according to the standard protocol after the uneventful administration of 100 mL Opti-Ray 350 intravenous contrast. COMPARISON: CT abdomen/pelvis 05/27/2021 FINDINGS: Limited views of the lower thorax demonstrate minimal bibasilar atelectasis. No pericardial effusion. The liver is normal. The gallbladder surgically absent. No biliary ductal dilatation. The spleen, pancreas and adrenal glands are normal. Unchanged size of well-circumscribed low attenuating lesions bilateral kidneys, however these are increased in size since 2012. No hydronephrosis. There is a percutaneous urinary catheter in a neobladder. The colon is normal without focal wall thickening. There are changes from prior bowel surgery, with patent appearing anastomoses in the lower abdomen. No intraperitoneal free air or fluid. There is a left inguinal hernia, containing sigmoid colon and fat, without evidence of obstruction. A percutaneous drain terminates in the left paracolic gutter, with resolved collection. There are extensive changes of chronic osteomyelitis of the sacrum and portions of the lower lumbar spine, which appears stable since previous examination. There are inflammatory changes in the subcutaneous tissues posterior to the sacrum, progressed since previous examination, with small pockets of gas extending to the level of the lower sacrum (series 2 image 173), without discrete fluid collection. This has increased in severity since previous examination. A sinus tract extending to the left ischium from the skin is unchanged since previous examination. There is skin thickening of the distal medial left thigh posteriorly, which is unchanged. A sinus tract extending to the left posterior femur was excluded from the [id number] on previous examination, where there is an intramedullary nail. There are bilateral hydroceles. There is a 1.9 x 1.1 cm collection inferior to the membranous urethra, which is larger than on previous examination (series 2 image 248). There are extensive bony changes of bilateral hips and acetabula, as well as left femur, without new bony erosion. The previously described collection posterior to the right paraspinal muscles at the level of L3 has decreased in size, now measuring 6.4 x 1.8 cm, previously 11.1 x 3.2 cm (series 2 image 119). The aorta and its branch vessels are normal in course and caliber. Note is made of an inferior vena cava filter. IMPRESSION: 1. Interval progression of sacral decubitus ulcer, with locules of gas extending to the level of the sacrum. Redemonstrated extensive bony changes of the sacrum in keeping with chronic osteomyelitis. 2. Interval decrease in size of collection posterior to the right paraspinal muscles at the level of L3. 3. Sinus tracts extending from the posterior thigh skin to the left ischium and left femur, likely unchanged. 4. Unchanged skin thickening of the posterior left thigh, predominantly medially, likely inflammatory. No discrete fluid collection. 5. Interval increase in size of small fluid collection abutting the membranous urethra. This is favored to represent a urethral diverticulum, rather than an abscess. 6. Left abdominal percutaneous drain, with resolved left paracolic gutter collection. 7. Redemonstrated multiple cystic lesions of the kidneys, which are unchanged since 05/27/2021, but increased in size since 02/11/2012. Continued attention on follow-up imaging is recommended. 8. Scrotal edema without perifascial gas/tracking fascial gas to suggest CT surrogates of Pepe's gangrene. Dictated by: Zander Bojorquez M.D. The radiology attending physician has personally reviewed this study, and had reviewed and/or edited this written report and agrees with it. Electronically signed by: Edgar Hunter M.D. us Darci Tomlin MD IMG CT PROCED URES Final Result * Creatine kinase (CK), total (08/05/2021 9:12 PM CDT) CK 61 40 - 300 Units/L [facility] Blood 08/05/2021 9:12 PM CDT 08/05/2021 9:23 PM CDT us Harvey Tierney MD LAB BLOOD ORDERABLES Final Result Performing Organization Address [facility] Co de Phone Number [facility] Department [place] [address] * eGFR (08/05/2021 9:12 PM CDT) eGFR >90 90 - 130 mL/min/1.7 3 m2 [facility] Comment: Interpretive Data Reference Interval Normal ?>/= 90 mL/min/1.73m2 Mildly decreased* ? 60 - 89 mL/min/1.73m2 Mildly to moderately decreased ?45 - 59 mL/min/1.73m2 Moderately to severely decreased ??30 - 44 mL/min/1.73m2 Severely decreased ?15 - 29 mL/min/1.73m2 Kidney Failure ?< 15 ??mL/min/1.73m2 *Relative to young adult level Estimated glomerular filtration rate is determined by the CKD-EPI equation recommended by the National Kidney Foundation (KDIGO 2012 Clinical Practice Guideline for the Evaluation and Management of Chronic Kidney Disease. Kidney Intnl Suppl Nov 2012;3:1). The CKD-EPI equation should not be used for patients with unstable renal function and has not been validated in children and those over 70. Current interpretive data was last reviewed 2020 Blood 08/05/2021 9:12 PM CDT 08/05/2021 9:23 PM CDT us Darci Tomlin MD LAB BLOOD ORD ERABLES Final Result Performing Organization Address [facility] Co de Phone Number [facility] Department [place] [address] * (ABNORMAL) Differential, auto (08/05/2021 9:12 PM CDT) Neutrophil abs 8.4(H) 1.7 - 6.5 K/cumm [facility] Imm gran abs 0.0 0.0 - 0.1 K/cumm [facility] Lymphocyte abs 1.4 0.8 - 3.3 K/cumm [facility] Monocyte abs 0.7 0.2 - 0.8 K/cumm [facility] Eosinophil abs 0.2 0.0 - 0.5 K/cumm [facility] Basophil abs 0.0 0.0 - 0.1 K/cumm [facility] Neutrophil pct 78.0 % [facility] Comment: Interpretive Data Percent cell count reference ranges are not reported, since discordance with absolute values may lead to misinterpretation of CBC data. Current Interpretive Data was last revised on 2018. Imm gran pct 0.4 % [facility] Comment: Interpretive Data Percent cell count reference ranges are not reported, since discordance with absolute values may lead to misinterpretation of CBC data. Current Interpretive Data was last revised on 2018. Lymphocyte pct 12.8 % [facility] Comment: Interpretive Data Percent cell count reference ranges are not reported, since discordance with absolute values may lead to misinterpretation of CBC data. Current Interpretive Data was last revised on 2018. Monocyte pct 6.6 % [facility] Comment: Interpretive Data Percent cell count reference ranges are not reported, since discordance with absolute values may lead to misinterpretation of CBC data. Current Interpretive Data was last revised on 2018. Eosinophil pct 2.0 % [facility] Comment: Interpretive Data Percent cell count reference ranges are not reported, since discordance with absolute values may lead to misinterpretation of CBC data. Current Interpretive Data was last revised on 2018. Basophil pct 0.2 % [facility] Comment: Interpretive Data Percent cell count reference ranges are not reported, since discordance with absolute values may lead to misinterpretation of CBC data. Current Interpretive Data was last revised on 2018. Blood 08/05/2021 9:12 PM CDT 08/05/2021 9:23 PM CDT Darci Tomlin MD LAB BLOOD ORD ERABLES Final Result [facility] Department [place] [address] * Blood culture Blood Peripheral (08/05/2021 9:12 PM CDT) Report Final Report: No growth [facility] Blood (Peripheral) 08/05/2021 9:12 PM CDT 08/05/2021 9:20 PM CDT Narrative [facility] - 08/10/2021 7:00 AM CDT From a different site than #1. Draw Blood cultures before administration of Antibiotics 1. ?Blood cultures are incubated for 4 [...] organism identification may be performed using the Attensityigene Gram-Positive Blood Culture Assay. This assay detects microbial DNA in positive blood culture broth via hybridization of target DNA to capture oligonucleotides on a microarray. This assay has been cleared by the [place] Food and Drug Administration and its performance characteristics have been verified by the [facility] Microbiology Laboratory. 5. ?For questions about this culture, contact the Microbiology Laboratory at [phone]. Interpretive data was last revised on 2020. us Darci Tomlin MD LAB M ICROBIOLOGY - GENERAL ORDERABLES Final Result Performing Organization Address [facility] Co de Phone Number [facility] [place] [address] * Blood culture Blood Peripheral (08/05/2021 9:12 PM CDT) Report Final Report: No growth [facility] Blood (Peripheral) 08/05/2021 9:12 PM CDT 08/05/2021 9:20 PM CDT Narrative [facility] - 08/10/2021 7:00 AM CDT Draw Blood cultures before administration of Antibiotics 1. ?Blood cultures are incubated for 4 [...] organism identification may be performed using the Attensityigene Gram-Positive Blood Culture Assay. This assay detects microbial DNA in positive blood culture broth via hybridization of target DNA to capture oligonucleotides on a microarray. This assay has been cleared by the [place] Food and Drug Administration and its performance characteristics have been verified by the [facility]biology Laboratory. 5. ?For questions about this culture, contact the Microbiology Laboratory at [phone]. Interpretive data was last revised on 2020. Darci CISNEROS M [facility] ORDERABLES Final Result Performing Organization Address [facility]/ZIP Co de Phone Number [facility] Department [place] [address] * COVID-19 Coronavirus RNA Nasopharyngeal (08/05/2021 9:12 PM CDT) COVID-19 RNA Negative Negative [facility] Comment: Interpretive data: Synonyms for this test include: PCR and NAAT . ??This test is performed using the [employer] Xpert Xpress assay. This is a real-time RT-PCR test intended for the qualitative detection of nucleic acid from the SARS-CoV-2. This assay has been reviewed by the FDA for Emergency Use Authorization (EUA). The performance characteristics have been verified by the performing laboratory. Results must be considered in the clinical context and a negative result does not rule out infection. Interpretive data last revised December 12, 2020. First COVID-19 test? No [facility] Employeed in healthcare? No [facility] status? No [facility] Group care resident? Yes [facility] Hospitalized? No [facility] Is patient in ICU? No [facility] Symptomatic as defined by CDC? Yes [facility] Nasopharyngeal 08/05/2021 9: 12 PM CDT 08/05/2021 9:20 PM CDT Narrative [facility] - 08/05/2021 10:11 PM CDT What is the reason for testing?->Bed placement or semi-private room Date of Symptom Onset->07/31/21 Darci Tomlin MD LAB M ICROBIOLOGY - GENERAL ORDERABLES Final Result [facility] Department [place] [address] * (ABNORMAL) CRP (acute phase) (08/05/2021 9:12 PM CDT) CRP 241.5(H) <=10.0 mg/L [facility] Blood 08/05/2021 9:12 PM CDT 08/05/2021 9:23 PM CDT Darci Tomlin MD LAB BLOOD ORD ERABLES Final Result [facility] Department [place] [address] * (ABNORMAL) Erythrocyte sedimentation rate (08/05/2021 9:12 PM CDT) [facility] Erythrocyte sedimentation rate 76(H) 1 - 15 mm/hr [facility] Blood 08/05/2021 9:12 PM CDT 08/05/2021 9:23 PM CDT Darci Tomlin MD LAB BLOOD ORD ERABLES Final Result Performing Organization Address [facility] Co de Phone Number [facility] Department [place] [address] * (ABNORMAL) CBC with auto differential (08/05/2021 9:12 PM CDT) [facility] WBC 10.7(H) 3.8 - 9.9 K/cumm [facility] Hgb 11.4(L) 13.0 - 17.5 g/dL [facility] Hct 37.3(L) 38.9 - 50.3 % [facility] Plt 187 150 - 400 K/cumm [facility] MPV 11.0 9.1 - 12.3 fL [facility] RBC 4.55 4.30 - 5.80 M/cumm [facility] MCV 82.0 81.3 - 96.4 fL [facility] MCH 25.1(L) 27.1 - 33.3 pg [facility] MCHC 30.6(L) 32.3 - 35.7 g/dL [facility] RDW CV 17.1(H) 11.1 - 14.9 % [facility] RDW SD 51.6(H) 35.7 - 48.1 fL [facility] NRBC abs 0.00 0.00 - 0.01 K/cumm [facility] Blood 08/05/2021 9:12 PM CDT 08/05/2021 9:23 PM CDT us Darci Tomlin MD LAB BLOOD ORD ERABLES Final Result [facility] Department [place] [address] * (ABNORMAL) Basic metabolic panel (08/05/2021 9:12 PM CDT) [facility] Sodium 137 135 - 145 mmol/L [facility] Potassium, pl 3.9 3.3 - 4.9 mmol/L [facility] Chloride 99 97 - 110 mmol/L [facility] CO2 21(L) 22 - 32 mmol/L [facility] Anion gap 17(H) 2 - 15 mmol/L [facility] BUN 10 8 - 25 mg/dL [facility] Creatinine 0.80 0.80 - 1.30 mg/dL [facility] Glucose 83 70 - 199 mg/dL [facility] Comment: Interpretive Data Fasting glucose >/= [...] classification and Diagnosis of Diabetes Diabetes Care 2017;40 (Suppl. 1):S11. Current interpretive data was last revised 2017. Calcium 9.5 8.5 - 10.3 mg/dL [facility] Blood 08/05/2021 9:12 PM CDT 08/05/2021 9:23 PM CDT us Darci Tomlin MD LAB BLOOD ORD ERABLES Final Result Performing Organization Address [facility]/ZIP Co de Phone Number [facility] [place] [address] documented in this encounter Visit Diagnoses Diagnosis Sacral osteomyelitis (CMS/HCC) (HCC)- Primary Sacral osteomyelitis (CMS/HCC) (HCC) Elevated C-reactive protein (CRP) Leukocytosis, unspecified type S/P urological surgery Spinal cord injury at T1-T6 level (CMS/HCC) (HCC) Spinal abscess (CMS/HCC) (HCC) Acute osteomyelitis, other specified site Spinal dural ossification S/P urological surgery documented in this encounter Admitting Diagnoses Diagnosis Sacral osteomyelitis (CMS/HCC) (HCC) S/P urological surgery documented in this encounter Administered Medications Inactive Administered Medications - up to 3 most recent administrations Medication Order MAR Action Action Date Dose Rate Site acetaminophen (TYLENOL) tablet 1,000 mg 1,000 mg, oral, Every 6 hours PRN, 1st line for pain, fever, Starting on Wed08/06/21 at 1300 Given 08/10/2021 11:21 PM CDT 1,000 mg Given 08/06/2021 2:16 PM CDT 1,000 mg amLODIPine (NORVASC) tablet 10 mg 10 mg, oral, Daily, First dose on Wed08/10/21 at 1800 Given 08/11/2021 8:21 AM CDT 10 mg Given 08/10/2021 5:40 PM CDT 10 mg bisacodyL (DULCOLAX) suppository 10 mg 10 mg, rectal, Once, On Wed08/10/21 at 1530, For 1 dose, Indications: constipationIndications:constipation Given 08/10/2021 3:06 PM CDT 10 mg ciprofloxacin (CIPRO) tablet 750 mg 750 mg, oral, 2 times daily (for quinolones,etc), First dose on Wed08/11/21 at 0600, Administer ciprofloxacin at least 2 hours before or 6 hours after antacids (containing aluminum or magnesium), calcium or calcium containing foods such as milk or yogurt, MVI (containing iron or zinc), iron, zinc, sucralfate or buffered meds such as didanosine., Indications: Skin/Soft Tissue InfectionIndications:Skin/Soft Tissue Infection Given 08/11/2021 5:14 PM CDT 750 mg Given 08/11/2021 5:28 AM CDT 750 mg clindamycin (CLEOCIN) 600 mg/50 mL in sodium chloride 0.9% (premix) piggyback 600 mg 600 mg, intravenous, at 100 mL/hr, Administer over 30 Minutes, Once, On Wed08/05/21 at 2006, For 1 dose, Indications: Necrotizing Infection/Toxin SuppressionIndications:Necrotizing Infection/Toxin Suppression New Bag 08/05/2021 9:45 PM CDT 600 mg 100 mL/hr cyclobenzaprine (FLEXERIL) tablet 5 mg 5 mg, oral, 3 times daily PRN, muscle spasms, Starting on Wed08/06/21 at 1300 Given 08/09/2021 8:53 PM CDT 5 mg Given 08/08/2021 8:06 PM CDT 5 mg Given 08/07/2021 8:33 PM CDT 5 mg DAPTOmycin (CUBICIN) 50 mg/mL sodium chloride 0.9% 500 mg 500 mg (rounded from 515.4 mg = 6 mg/kg ? 85.9 kg Adjusted weight), intravenous, at 300 mL/hr, Administer over 2 Minutes, Every 24 hours scheduled, First dose on Wed08/06/21 at 1345, Do not administer or mix with dextrose-containing solutions, Indications: Abdominal/Pelvic InfectionIndications:Abdominal/Pelvic Infection Given 08/10/2021 9:15 AM CDT 500 mg 300 mL/hr Given 08/09/2021 9:34 AM CDT 500 mg 300 mL/hr Given 08/08/2021 8:06 AM CDT 500 mg 300 mL/hr doxycycline (VIBRAMYCIN) tablet/capsule 100 mg 100 mg, oral, 2 times daily (for quinolones,etc), First dose on Wed08/11/21 at 0600, Give 2 hrs before or 2 hrs after MVI, antacids, or other products containing sucralfate, magnesium, aluminum, iron, or zinc. May be taken without regard to meals., Indications: Skin/Soft Tissue InfectionIndications:Skin/Soft Tissue Infection Given 08/11/2021 5:14 PM CDT 100 mg Given 08/11/2021 5:28 AM CDT 100 mg fentaNYL (DURAGESIC) 50 mcg/hr patch 72 hour 1 patch 1 patch, transdermal, Administer over 72 Hours, Every 72 hours, First dose on Wed08/07/21 at 1500, Apply to an area with sufficient adipose tissue Remove according to hospital policy. Dispose in Stericycle CsRx bin and document in Pyxis with witness. Medication Applied 08/10/2021 2:03 PM CDT 1 patch Chest Medication Applied 08/07/2021 5:21 PM CDT 1 patch Chest gabapentin (NEURONTIN) capsule 300 mg 300 mg, oral, Nightly, First dose on Wed08/06/21 at 2100, Do not crush, break, or open. Given 08/10/2021 9:17 PM CDT 300 mg Given 08/09/2021 8:54 PM CDT 300 mg Given 08/08/2021 8:06 PM CDT 300 mg heparin 10 unit/mL flush 30 Units 30 Units (3 mL), IV flush, As needed, line care, Starting on Wed08/06/21 at 1545 Given 08/10/2021 2:03 PM CDT 30 Uni ts Given 08/09/2021 3:29 PM CDT 30 Units Given 08/08/2021 8:06 PM CDT 30 Units heparin 5,000 unit/mL injection 7,500 Units 7,500 Units, subcutaneous, Every 8 hours scheduled, First dose on Wed08/06/21 at 1400, Indications: Deep Vein Thrombosis PreventionIndications:Deep Vein Thrombosis Prevention Given 08/11/2021 1:14 PM CDT 7,500 Units Right Lower Abdomen Given 08/11/2021 5:28 AM CDT 7,500 Units R ight Lower Abdomen Given 08/10/2021 9:21 PM CDT 7,500 Units R ight Lower Abdomen hydrALAZINE (APRESOLINE) tablet 25 mg 25 mg, oral, Once, On 08/10/21 at 1945, For 1 dose, Indications: hypertensionIndications:hyper tension Given 08/10/2021 7:26 PM CDT 25 mg hydrALAZINE (APRESOLINE) tablet 50 mg 50 mg, oral, Once, On 08/10/21 at 1645, For 1 dose, Indications: hypertensionIndications:hyper tension Given 08/10/2021 4:02 PM CDT 50 mg HYDROmorphone (DILAUDID) injection 0.2 mg 0.2 mg, intravenous, Administer over 2 Minutes, Once, On 08/10/21 at 2200, For 1 dose Given 08/10/2021 10:03 PM CDT 0.2 mg ioversoL (OPTIRAY 350) syringe syringe 100 mL 100 mL, intravenous, Once in imaging, contrast, Starting on Wed08/05/21 at 2142, For 1 dose Contrast Given 08/05/2021 9:42 PM CDT 100 mL Lactated Ringer's (LR) bolus 1,845 mL 1,845 mL (30 mL/kg ? 61.5 kg Mallie weight), intravenous, Once, On Wed08/05/21 at 1934, For 1 dose, Dose based on IBW - Patient's BMI greater than 30 Infuse 999 ml/hr. Check vital signs and contact MD when complete to reassess. New Bag 08/05/2021 9:15 PM CDT 1,845 mL Lactated Ringer's (LR) infusion 30 mL/hr, intravenous, Continuous, Starting on Wed08/06/21 at 1015, Pre-Op New Bag 08/09/2021 6:38 PM CDT 30 mL/hr 30 mL/hr New Bag 08/08/2021 6:09 AM CDT 30 mL/hr 30 mL/hr New Bag 08/06/2021 2:44 PM CDT 30 mL/hr 30 mL/hr linaCLOtide (LINZESS) capsule 145 mcg 145 mcg, oral, Daily before breakfast, First dose on Wed08/11/21 at 0730, Do not crush - May open and disperse in water 30 mL, swirl for at least 20 seconds. Administer immediately. Repeat process if any beads remain behind. Flush. Do not chew the beads., Indications: chronic idiopathic constipationIndications:chronic idiopathic constipation Given 08/11/2021 8:22 AM CDT 145 mcg linezolid (ZYVOX) 600 mg/300 mL in dextrose 5% (premix) 600 mg 600 mg, intravenous, at 150 mL/hr, Administer over 2 Hours, Every 12 hours scheduled, First dose on Wed08/05/21 at 2100, Indications: suspected fourniersIndications:suspected fourniers New Bag 08/06/2021 12:13 AM CDT 600 mg 150 mL/hr magnesium hydroxide (MILK OF MAGNESIA) 80 mg/mL (33.3 mg/mL as elemental magnesium) oral suspension 30 mL 30 mL, oral, Once, On Wed08/10/21 at 1130, For 1 dose Given 08/10/2021 1:02 PM CDT 30 mL meropenem (MERREM) 2,000 mg/120 mL in sodium chloride 0.9% (premix) 2,000 mg 2,000 mg, intravenous, Administer over 30 Minutes, Every 8 hours scheduled, First dose on Wed08/05/21 at 2200, Indications: pepe's suspectedIndications:pepe's suspected New Bag 08/10/2021 1:02 PM CDT 2,000 mg New Bag 08/10/2021 5:45 AM CDT 2,000 mg New Bag 08/09/2021 8:53 PM CDT 2,000 mg ondansetron (ZOFRAN) injection 4 mg 4 mg, intravenous, Administer over 2 Minutes, Every 6 hours PRN, nausea, vomiting, if not tolerating PO, Starting on Wed08/06/21 at 1300, Indications: Nausea and VomitingIndications:Nausea and Vomiting Given 08/10/2021 5:40 PM CDT 4 mg Given 08/07/2021 8:59 AM CDT 4 mg ondansetron ODT (ZOFRAN-ODT) disintegrating tablet 4 mg 4 mg, oral, Every 6 hours PRN, nausea, vomiting, Starting on Wed08/06/21 at 1300, Indications: Nausea and VomitingIndications:Nausea and Vomiting Given 08/09/2021 9:41 AM CDT 4 mg Given 08/06/2021 4:24 PM CDT 4 mg oxyCODONE (ROXICODONE) tablet 10 mg 10 mg, oral, Every 4 hours PRN, 2nd line for pain, Starting on Wed08/06/21 at 1300, Indications: PainIndications:Pain Given 08/11/2021 1:13 PM CDT 10 mg Given 08/11/2021 5:34 AM CDT 10 mg Given 08/10/2021 11:21 PM CDT [address] (PROTONIX) extended release tablet 40 mg 40 mg, oral, 2 times daily before meals (bkfst, dinner), First dose on Wed08/06/21 at 1730, Do not crush, chew, cut, dissolve, open or otherwise manipulate tablet/capsule., Indications: Treatment of Non-Bleeding Gastric DisorderIndications:Treatment of Non-Bleeding Gastric Disorder Given 08/11/2021 5:14 PM CDT 40 mg Given 08/11/2021 8:22 AM CDT 40 mg Given 08/10/2021 9:15 AM CDT 40 mg polyethylene glycol (MIRALAX) packet 17 g 17 g, oral, Daily, First dose (after last modification) on Wed08/08/21 at 1400, Indications: constipationIndications:constipation Given 08/09/2021 9:33 AM CDT 17 g Given 08/08/2021 1:35 PM CDT 17 g polyethylene glycol (MIRALAX) packet 17 g 17 g, oral, 2 times daily, First dose (after last modification) on Wed08/09/21 at 2100, Indications: constipationIndications:constipation Given 08/11/2021 8:21 AM CDT 17 g Given 08/10/2021 9:19 PM CDT 17 g Given 08/10/2021 9:16 AM CDT 17 g potassium chloride ER (KLOR-CON) extended release tablet 40 mEq 40 mEq, oral, Every 4 hours, First dose on Wed08/08/21 at 0915, For 2 doses, Do not crush, chew, cut, dissolve, open or otherwise manipulate tablet/capsule. Given 08/08/2021 1:34 PM CDT 40 mEq Given 08/08/2021 9:26 AM CDT 40 mEq senna-docusate (PERICOLACE) 8.6-50 mg per tablet 1 tablet 1 tablet, oral, 2 times daily, First dose on Wed08/08/21 at 1400 Given 08/11/2021 8:21 AM CDT 1 tablet Given 08/10/2021 9:17 PM CDT 1 tablet Given 08/10/2021 9:15 AM CDT 1 tablet sodium chloride 0.9% flush 0.5-20 mL 0.5-20 mL, intra-catheter, As needed, line care, Starting on Wed08/06/21 at 0942, Pre-Op, Flush volume based on line type and size. Flush before and after each use. , Indications: FlushingIndications:Flushing Given 08/10/2021 10:03 PM CDT 1 0 mL Given 08/10/2021 9:22 PM CDT 10 mL documented in this encounter Discontinued Medications Medication Sig Discontinue Reason Start Date End Da te carvediloL (COREG) 3.125 mg tablet Take 3.125 mg by mouth 2 (two) times a day with meals Stop Taking at Discharge 08/11/2021 calcium carbonate (TUMS) 500 mg calcium (200 mg of elemental calcium) chewable tablet Take 2 tablets (1,000 mg total) by mouth 4 (four) times a day as needed for indigestion Stop Taking at Discharge 04/11/2021 08/11/2021 documented as of this encounter Active and Recently Administered Medications Times are shown in CDT. Scheduled Medication Order 08/09/2021 08/10/2021 08/11/2021 amLODIPine (NORVASC) tablet 10 mg (CANCELED) 10 mg, oral, Daily, First dose on 08/10/21 at 1800 1740 (Given - Provider: Hazel Odom RN) 0821 (Given - Provider: Maricruz Sanchez, PARAM) bisacodyL (DULCOLAX) suppository 10 mg (COMPLETED) 10 mg, rectal, Once, On Wed08/10/21 at 1530, For 1 dose, Indications: constipation 1506 (Given - Provider: Hazel Odom, PARAM) ciprofloxacin (CIPRO) tablet 750 mg 750 mg, oral, 2 times daily (for quinolones,etc), First dose on Wed08/11/21 at 0600, Administer ciprofloxacin at least 2 hours before or 6 hours after antacids (containing aluminum or magnesium), calcium or calcium containing foods such as milk or yogurt, MVI (containing iron or zinc), iron, zinc, sucralfate or buffered meds such as didanosine., Indications: Skin/Soft Tissue Infection 0528 (Given - Provider: Ladi Verde RN)1714 (Given - Provider: Maricruz Sanchez, PARAM) DAPTOmycin (CUBICIN) 50 mg/mL sodium chloride 0.9% 500 mg (CANCELED) 500 mg (rounded from 515.4 mg = 6 mg/kg ? 85.9 kg Adjusted weight), intravenous, at 300 mL/hr, Administer over 2 Minutes, Every 24 hours scheduled, First dose on Wed08/06/21 at 1345, Do not administer or mix with dextrose-containing solutions, Indications: Abdominal/Pelvic Infection 0934 (Given - Provider: Ricky Oakley RN) 0915 (Given - Provider: Hazel Odom RN) doxycycline (VIBRAMYCIN) tablet/capsule 100 mg 100 mg, oral, 2 times daily (for quinolones,etc), First dose on Wed08/11/21 at 0600, Give 2 hrs before or 2 hrs after MVI, antacids, or other products containing sucralfate, magnesium, aluminum, iron, or zinc. May be taken without regard to meals., Indications: Skin/Soft Tissue Infection 527 (Given - Provider: Ladi Verde RN)171 (Given - Provider: Maricruz Sanchez RN) fentaNYL (DURAGESIC) 50 mcg/hr patch 72 hour 1 patch 1 patch, transdermal, Administer over 72 Hours, Every 72 hours, First dose on Wed08/07/21 at 1500, Apply to an area with sufficient adipose tissue Remove according to hospital policy. Dispose in Stericycle CsRx bin and document in Pyxis with witness. 1403 (Medication Applied - Provider: Hazel Odom RN) 182 (Due: Medication Removed - Provider: Automatic Discharge Provider - Comment: Time automatically adjusted from order being discontinued) gabapentin (NEURONTIN) capsule 300 mg 300 mg, oral, Nightly, First dose on Wed08/06/21 at 2100, Do not crush, break, or open. 2053 (Given - Provider: Jennifer Gant RN) 2116 (Given - Provider: Ladi Verde RN) heparin 5,000 unit/mL injection 7,500 Units 7,500 Units, subcutaneous, Every 8 hours scheduled, First dose on Wed08/06/21 at 1400, Indications: Deep Vein Thrombosis Prevention 0410 (Given - Provider: Jennifer Gant RN)1342 (Given - Provider: Ricky Oakley RN)2053 (Given - Provider: Jennifer Gant RN) 0545 (Given - Provider: Jennifer Gant RN)1302 (Given - Provider: Hazel Odom RN)212 (Given - Provider: Ladi Verde RN) 0528 (Given - Provider: Ladi Verde RN)1314 (Given - Provider: Fouzia Guan RN) hydrALAZINE (APRESOLINE) tablet 25 mg (COMPLETED) 25 mg, oral, Once, On Wed08/10/21 at 1945, For 1 dose, Indications: hypertension 1926 (Given - Provider: Hazel Odom, PARAM) hydrALAZINE (APRESOLINE) tablet 50 mg (COMPLETED) 50 mg, oral, Once, On Wed08/10/21 at 1645, For 1 dose, Indications: hypertension 1602 (Given - Provider: Hazel Odom, PARAM) HYDROmorphone (DILAUDID) injection 0.2 mg (COMPLETED) 0.2 mg, intravenous, Administer over 2 Minutes, Once, On Wed08/10/21 at 2200, For 1 dose 2203 (Given - Provider: Ladi Verde, PARAM) linaCLOtide (LINZESS) capsule 145 mcg 145 mcg, oral, Daily before breakfast, First dose on Wed08/11/21 at 0730, Do not crush - May open and disperse in water 30 mL, swirl for at least 20 seconds. Administer immediately. Repeat process if any beads remain behind. Flush. Do not chew the beads., Indications: chronic idiopathic constipation 0822 (Given - Provider: Maricruz Sanchez, PARAM) magnesium hydroxide (MILK OF MAGNESIA) 80 mg/mL (33.3 mg/mL as elemental magnesium) oral suspension 30 mL (COMPLETED) 30 mL, oral, Once, On Wed08/10/21 at 1130, For 1 dose 1302 (Given - Provider: Hazel Odom, PARAM) meropenem (MERREM) 2,000 mg/120 mL in sodium chloride 0.9% (premix) 2,000 mg (CANCELED) 2,000 mg, intravenous, Administer over 30 Minutes, Every 8 hours scheduled, First dose on Wed08/05/21 at 2200, Indications: pepe's suspected 0410 (New Bag - Provider: Jennifer Gant, PARAM)1342 (New Bag - Provider: Ricky Oakley RN)2053 (New Bag - Provider: Jennifer Gant, PARAM) 0545 (New Bag - Provider: Jennifer Gant, PARAM)1302 (New Bag - Provider: Hazel Odom, PARAM) pantoprazole DR (PROTONIX) extended release tablet 40 mg 40 mg, oral, 2 times daily before meals (bkfst, dinner), First dose on Wed08/06/21 at 1730, Do not crush, chew, cut, dissolve, open or otherwise manipulate tablet/capsule., Indications: Treatment of Non-Bleeding Gastric Disorder 0933 (Given - Provider: Ricky Oakley RN)1837 (Given - Provider: Hazel Odom, PARAM) 0915 (Given - Provider: Hazel Odom RN)1740 (Not Given - Provider: Hazel Odmo RN - Reason: Other - Comment: patient nauseated) 0822 (Given - Provider: Maricruz Sanchez, PARAM)1714 (Given - Provider: Maricruz Sanchez, PARAM) polyethylene glycol (MIRALAX) packet 17 g (CANCELED) 17 g, oral, Daily, First dose (after last modification) on Wed08/08/21 at 1400, Indications: constipation 0933 (Given - Provider: Ricky Oakley RN) polyethylene glycol (MIRALAX) packet 17 g 17 g, oral, 2 times daily, First dose (after last modification) on Wed08/09/21 at 2100, Indications: constipation 2100 (Given - Provider: Jennifer Gant, PARAM) 0916 (Given - Provider: Hazel Odom RN)2118 (Given - Provider: Ladi Verde RN) 0821 (Given - Provider: Maricruz Sanchez, PARAM) senna-docusate (PERICOLACE) 8.6-50 mg per tablet 1 tablet 1 tablet, oral, 2 times daily, First dose on Wed08/08/21 at 1400 0933 (Given - Provider: Ricky Oakley RN)2053 (Given - Provider: Jennifer Gant RN) 0915 (Given - Provider: Hazel Odom, PARAM)2116 (Given - Provider: Ladi Verde RN) 0821 (Given - Provider: Maricruz Sanchez, PARAM) Continuous Medication Order 08/09/2021 08/10/2021 08/11/2021 Lactated Ringer's (LR) infusion (CANCELED) 30 mL/hr, intravenous, Continuous, Starting on Wed08/06/21 at 1015, Pre-Op 1838 (New Bag - Provider: Hazel Odom RN) 0402 (Stopped - Provider: Ladi Verde RN - Comment: order is from pre-op) PRN Medication Order 08/09/2021 08/10/2021 08/11/2021 acetaminophen (TYLENOL) tablet 1,000 mg 1,000 mg, oral, Every 6 hours PRN, 1st line for pain, fever, Starting on Wed08/06/21 at 1300 2321 (Given - Provider: Ladi Verde RN) cyclobenzaprine (FLEXERIL) tablet 5 mg 5 mg, oral, 3 times daily PRN, muscle spasms, Starting on Wed08/06/21 at 1300 2053 (Given - Provider: Jennifer Gant RN) heparin 10 unit/mL flush 30 Units 30 Units (3 mL), IV flush, As needed, line care, Starting on Wed08/06/21 at 1545 1529 (Given - Provider: Hazel Odom RN) 1403 (Given - Provider: Hazel Odom RN) ondansetron (ZOFRAN) injection 4 mg(Linked Group 1) 4 mg, intravenous, Administer over 2 Minutes, Every 6 hours PRN, nausea, vomiting, if not tolerating PO, Starting on Wed08/06/21 at 1300, Indications: Nausea and Vomiting 0941 (See Alternative - Provider: Ricky Oakley RN) 1740 (Given - Provider: Hazel Odom RN) ondansetron ODT (ZOFRAN-ODT) disintegrating tablet 4 mg(Linked Group 1) 4 mg, oral, Every 6 hours PRN, nausea, vomiting, Starting on Wed08/06/21 at 1300, Indications: Nausea and Vomiting 0941 (Given - Provider: Ricky Oakley RN) 1740 (See Alternative - Provider: Hazel Odom RN) oxyCODONE (ROXICODONE) tablet 10 mg 10 mg, oral, Every 4 hours PRN, 2nd line for pain, Starting on Wed08/06/21 at 1300, Indications: Pain 0410 (Given - Provider: Jennifer Gant RN)1901 (Given - Provider: Hazel Odom RN) 1411 (Given - Provider: Hazel Odom, PARAM)1807 (Given - Provider: Hazel Odom, RN)2321 (Given - Provider: Ladi Verde RN) 0534 (Given - Provider: Ladi Verde RN)1313 (Given - Provider: Fouzia Guan RN) ramelteon (ROZEREM) tablet 8 mg 8 mg, oral, Nightly PRN, sleep, Starting on Wed08/06/21 at 1300, Indications: Sleep-Onset Insomnia sodium chloride 0.9% flush 0.5-20 mL 0.5-20 mL, intra-catheter, As needed, line care, Starting on Wed08/06/21 at 0942, Pre-Op, Flush volume based on line type and size. Flush before and after each use. , Indications: Flushing 2121 (Given - Provider: Ladi Verde RN)2202 (Given - Provider: Ladi Verde RN) Linked Groups Order Group 1: ondansetron ODT (ZOFRAN-ODT) disintegrating tablet 4 mgJump to med 4 mg, oral, Every 6 hours PRN, nausea, vomiting, Starting on Wed08/06/21 at 1300, Indications: Nausea and Vomiting Or ondansetron (ZOFRAN) injection 4 mgJump to med 4 mg, intravenous, Administer over 2 Minutes, Every 6 hours PRN, nausea, vomiting, if not tolerating PO, Starting on Wed08/06/21 at 1300, Indications: Nausea and Vomiting documented in this encounter Orders Medications Ordered That Camron ht Not Have Been Administered Count Last Ordered Date First Ordered Date polyethylene glycol (MIRALAX) packet 17 g 1 08/06/2021 ramelteon (ROZEREM) tablet 8 mg 1 Lab Orders Without Results Count Last Ordered D ate First Ordered Date CREATINE KINASE (CK), TOTAL 1 08/06/2021 POCT GLUCOSE DEVICE 1 08/06/2021 POCT CREATININE - DEVICE 1 08/05/2021 POCT LACTATE - DEVICE 2 08/05/2021 Nursing Count Last Ordered Date First Orde red Date VITAL SIGNS 1 08/06/2021 WEIGH PATIENT 1 08/06/2021 CONTINUOUS PULSE OXIMETRY 1 08/05/2021 Consult Count Last Ordered Date First Orde red Date CONSULT TO GENERAL INFECTIOUS DISEASE 1 CONSULT TO WOUND CARE 1 08/06/2021 IP CONSULT TO GENERAL SURGERY 1 08/05/2021 IP CONSULT TO UROLOGY 1 08/05/2021 Isolation Count Last Ordered Date First Orde red Date INITIATE CONTACT ISOLATION 2 08/06/2021 ADT Patient Update Count Last Ordered Date Firs t Ordered Date ED IP DECISION TO ADMIT 1 08/05/2021 documented in this encounter Additional Health Concerns Infection Onset Date Last Indicated Resolved Time 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
--- OUTSIDE RECORDS SUMMARY | 2024-11-11 02:10 | XMS_ITS | Encounter Summary ---
Author Organization [facility] Address [address] [place] [address] Phone Care Team Providers Care Gauge Maker Apprentice Name Role Phone Saw Louie MD Primary Care Provider [phone] Encounter Details Date Type Department Care Team (Late st Contact Info) Description 08/29/2021 Telephone [facility] Infectious Diseases [address] [place] [phone] Jose Ramon Moss, Yaritza Social History Tobacco Use Types Packs/Day Years [...] often do you attend chur ch or mormon services? Never 08/07/2021 Do you belong to any clubs o r organizations such as orthodox groups, unions, fraternal or athletic groups, [...] place to sleep or slept in a nursing home (including now)? 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 Pt needs to keep follow up appt with us on 09/11/21. PARAM Pedraza * Telephone Encounter - Jose Ramon Moss RMA - 08/29/2021 9:47 AM CDT [facility] nursing and rehab [phone], requesting a call back in regards to his abx. 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
--- OUTSIDE RECORDS SUMMARY | 2024-11-11 02:10 | XMS_ITS | Encounter Summary ---
Author Organization [facility] Address [address] [place] [address] Phone Care Team Providers Care Well Testing Operator Name Role Phone Saw Louie MD Primary Care Provider [phone] Encounter Details Date Type Department Care Team (Late st Contact Info) Description 08/13/2021 Telephone [facility] Infectious Diseases [address] [place] [phone] Kasia Soriano Social History Tobacco Use Types Packs/Day Years [...] often do you attend chur ch or shinto services? 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
--- OUTSIDE RECORDS SUMMARY | 2024-11-11 02:10 | XMS_ITS | Encounter Summary ---
Author Organization [facility] Address [address] [place] [address] Phone Care Team Providers Care Channel Process Supervisor Name Role Phone Saw Louie MD Primary Care Provider [phone] Encounter Details Date Type Department Care Team (Late st Contact Info) Description 07/21/2021 Telephone [facility] Infectious Diseases [address] [place] [phone] Kasia Soriano Social History Tobacco Use [...] on file Legal Sex Male 5:[address] Gender Identity Male 05/21/2022 3:19 PM CDT Sexual Orientation Straight 05/21/2022 3: 19 PM CDT documented as of this encounter Miscellaneous Notes * Telephone Encounter - Kasia Soriano - 07/21/2021 9:54 AM CDT Called facility to arrange CT appointment that patient missed last week documented in this encounter Plan of Treatment Not on file documented as of this encounter Visit Diagnoses Not on filedocumented in this encounter Additional Health Concerns Infection Onset Date Last Indicated Resolved Time 

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
--- OUTSIDE RECORDS SUMMARY | 2024-11-11 02:10 | XMS_ITS | Encounter Summary ---
Author Organization [facility] Healthcare Address [address] [place] [address] Care Team Providers Care Search Engine Optimizer Name Role Phone Megan Arguelles MD Primary Care Provider Reason for Visit * Reason Comments Abdominal Pain Encounter Details Date Type Department Care Team (Late st Contact Info) Description 07/14/2022 8:41 AM CDT - 07/14/2022 3:41 PM CDT Emergency [facility] Emergency Department [address] [place] [address] Michele Gastelum MD [address] [place] [id number] Constipation, unspecified constipation type (Primary Dx); Pyuria; Hyperthyroidism Discharge Disposition: Discharge to home or self [...] often do you attend chur ch or mu-ism services? Never 08/07/2021 Do you belong to any clubs o r organizations such as judaism groups, unions, fraternal or athletic groups, or [...] place to sleep or slept in a [place] facility (including now)? 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 Gender Identity Male 05/21/2022 3:19 PM CDT Sexual Orientation Straight 05/21/2022 3: 19 PM CDT documented as of this encounter Last Filed Vital Signs Vital Sign Reading Time Taken Comments Blood Pressure 105/70 07/14/2022 2:45 PM CDT Pulse 95 07/14/2022 2:45 PM CDT Temperature 36.3 ??C (97.3 ??F) 07/14/2022 8:45 AM CD T Respiratory Rate 12 07/14/2022 2:45 PM CDT Oxygen Saturation 100% 07/14/2022 2:45 PM CDT Inhaled Oxygen Concentration - - Weight 136.5 kg (301 lb) 07/14/2022 8:45 AM CDT Height - - Body Mass Index 48.58 08/06/2021 12:06 PM CDT documented in this encounter Discharge Diagnoses Diagnosis Constipation, unspecified - CONSTIPATION, UNSPECIFIED Pyuria - PYURIA Other nonspecific finding on examination of urine Thyrotoxicosis, unspecified without thyrotoxic crisis or storm - THYROTOXICOSIS, UNSPECIFIED WITHOUT THYROTOXIC CRISIS OR STORM Essential (primary) hypertension - ESSENTIAL (PRIMARY) HYPERTENSION Unspecified essential hypertension Neuromuscular dysfunction of bladder, unspecified - NEUROMUSCULAR DYSFUNCTION OF BLADDER, UNSPECIFIED Obesity, unspecified - OBESITY, UNSPECIFIED Paraplegia, unspecified (HCC) - PARAPLEGIA, UNSPECIFIED Personal history of nicotine dependence - PERSONAL HISTORY OF NICOTINE DEPENDENCE documented in this encounter Discharge Instructions * Discharge Instructions* Michele Gastelum MD - 07/14/2022 12:39 PM CDT Thank you for the opportunity to care for you today! You were evaluated for abdominal pain and diagnosed with constipation/pyuria/hyperthyroidism. You had an ECG, blood/urine tests, and a CT scan that were otherwise unremarkable. You should follow-up with your primary doctor in the next week to discuss your thyroid disease. Return to the ED for uncontrolled pain or other concerns. You should take the prescribed beta-chantal unless directed otherwise. You should increase your MiraLax to 3 times a day until having regular bowel movements. Try to increase your water intake as well. We sincerely hope you feel better soon! documented in this encounter Medications at Time [...] Refills Last Filled Start Date End Date propranoloL (INDERAL) 40 mg tablet Take 1 tablet (40 mg total) by mouth 2 (two) times a day 60 tablet 07/14/2022 propranoloL (INDERAL) 40 mg tablet Take 1 tablet (40 mg total) by mouth 2 (two) times a day 60 tablet 07/14/2022 07/14/2022 propranoloL (INDERAL) 40 mg tablet Take 1 tablet (40 mg total) by mouth 2 (two) times a day 60 tablet 07/14/2022 07/14/2022 documented in this encounter Discharge Disposition Disposition Code Departure Means Destination Discharge to home or self care documented in this encounter ED Notes * Michele Gastelum MD - 07/14/2022 8:57 AM CDT HPI Chief Complaint Patient presents with Abdominal Pain 36-year-old man with a history of paraplegia complicated by neurogenic bladder status post ileal conduit and sacral osteomyelitis as well as hypertension and obesity who presents with abdominal pain,nausea, vomiting, and constipation. Pain onset yesterday. Primarily right-sided. Has been constipated for the past week and a half. Associated with some obstipation. Denies fever, chills, chest pain,dyspnea, urinary symptoms although limited sensation, or other complaints. Patient History: Patient Active Problem List Diagnosis Date Noted Sacral osteomyelitis (CMS/HCC) ([facility]) 08/05/2021 Severe malnutrition (CMS/HCC) ([facility]) 05/23/2021 Abdominal pain 05/22/2021 Spinal abscess (CMS/HCC) ([facility]) 05/15/2021 Discharge planning issues 04/10/2021 Hyponatremia 03/29/2021 Anemia 03/28/2021 Infected fluid collection without fistula 03/28/2021 S/P urological surgery 03/28/2021 Bladder stones 01/19/2019 Pressure injury of skin of buttock 01/15/2019 Continuous leakage of urine 01/13/2019 HTN (hypertension) 01/11/2019 Complicated UTI (urinary tract infection) 01/10/2019 Paraplegia (HCC) 01/10/2019 Arthralgia of hip 02/13/2016 Pancreatitis 08/08/2013 Stricture, urethra 09/28/2011 No past medical history on file. Past Surgical History: Procedure Laterality Date ASPIRATION [...] by TW Conv) Social History Tobacco Use Smoking status: Former Smokeless tobacco: Never Substance and Sexual Activity Drug use: Yes Types: Marijuana Sexual activity: Not on file Alcohol Use: Not At Risk Frequency of Alcohol Consumption: Never Average Number of Drinks: Patient refused Frequency of Binge Drinking: Never Alcohol Use: Not At Risk Frequency of Alcohol Consumption: Never Average Number of Drinks: Patient refused Frequency of Binge Drinking: Never Social History Social History Narrative Not on file Review of Systems Review of Systems Constitutional: Negative for chills and fever. HENT: Negative for congestion, rhinorrhea and sore throat. Eyes: Negative for visual disturbance. Respiratory: Negative for cough and shortness of breath. Cardiovascular: Negative for chest pain. Gastrointestinal: Positive for abdominal pain, constipation, nausea and vomiting. Negative for diarrhea. Genitourinary: Negative for dysuria, frequency and urgency. Musculoskeletal: Negative for myalgias. Skin: Negative for rash. Neurological: Negative for seizures, syncope and headaches. Psychiatric/Behavioral: Negative for confusion. Physical Exam ED Triage Vitals [07/14/22 0845] Temp Pulse Resp BP SpO2 36.3 ??C (97.3 ??F) 118 20 103/66 100 % Temp src Heart Rate Source Patient Position BP Location FiO2 (%) Axillary -- -- -- -- Height Height Method Weight Weight Method -- -- (!) 136.5 kg (301 lb) Stated Physical Exam Vitals and nursing note reviewed. Constitutional: General: He is not in acute distress. Appearance: He is not ill-appearing or diaphoretic. HENT: Head: Normocephalic and atraumatic. Mouth/Throat: Mouth: Mucous membranes are moist. Eyes: General: No scleral icterus. Extraocular Movements: Extraocular movements intact. Cardiovascular: Rate and Rhythm: Normal rate and regular rhythm. Pulmonary: Effort: Pulmonary effort is normal. No respiratory distress. Abdominal: General: There is no distension. Palpations: Abdomen is soft. Tenderness: There is abdominal tenderness (Mild right-sided). There is no right CVA tenderness or left CVA tenderness. Musculoskeletal: General: No swelling. Normal range of motion. Cervical back: Normal range of motion. Comments: Bilateral BKA Skin: General: Skin is warm and dry. Findings: No rash. Neurological: General: No focal deficit present. Mental Status: He is alert and oriented to person, place, and time. Mental status is at baseline. Psychiatric: Mood and Affect: Mood normal. Behavior: Behavior normal. MDM Medical Decision Making Differential Diagnosis or Management Options: 36-year-old man with a history of paraplegia, hypertension, and obesity who presents with abdominal pain, nausea, vomiting, and constipation. Suspect bowel obstruction. Doubt appendicitis. Doubt UTI. Doubt other emergent intra-abdominal condition. Plan: Labs, CT, pain/nausea control, IV fluids ED Course as of 07/14/22 1325 Time: 07/14 935 Value: Hgb(!): 12.8 Comment: Minimal baseline anemia By: Michele Gastelum MD Time: 07/14 935 Value: Lactate(!): 2.6 Comment: Minimally elevated By: Michele Gastelum MD Time: 07/14 952 Value: Lipase, Serum: 55 Comment: Negative By: Michele Gastelum MD Time: 07/14 1000 Comment: CMP unremarkable By: Michele Gastelum MD Time: 07/14 1000 Value: Magnesium: 2.2 Comment: Normal By: Michele Gastelum MD Time: 07/14 1003 Value: CT Abdomen Pelvis WO Contrast Comment: Constipation and healed osteomyelitis without any significant acute issues By: Michele Gastelum MD Time: 07/14 1031 Value: Free T4(!): 1.98 Comment: Minimally elevated By: Michele Gastelum MD Time: 07/14 1114 Value: WBC, ur(!): >50 Comment: Likely asymptomatic bacteriuria By: Michele Gastelum MD Time: 07/14 1132 Comment: No suprapubic tenderness at all. Not inclined to treat urine at this time. Does report continued pain. Will attempt bowel regimen. By: Michele Gastelum MD Time: 07/14 1324 Comment: Feeling somewhat better. Will discharge with propranolol, increased MiraLax, and PCP follow-up. Return precautions given. By: Michele Gastelum MD Final diagnoses: Constipation, unspecified constipation type Pyuria Hyperthyroidism Michele Gastelum MD 07/14/22 1325 * Micaela Johansen RN - 07/14/2022 8:41 AM CDT Bed: [id number] Expected date: Expected time: Means of arrival: Comments: [id number] Miceala Johansen RN 07/14/22 0841 * Feng Thomas RN - 07/14/2022 8:38 AM CDT Pt arrives via [facility] for abdominal pain from [facility]. Per EMS Pt has had recurrent abdominal pain and reports new pain the last couple days. Pt reports nausea and vomiting last night. Pt also reports constipation for last couple weeks with limited bowel movements. Pt arrives with tachycardia at 120 bpm. documented in this encounter Miscellaneous Notes * ED Procedure Note - Michele Gastelum MD - 07/14/2022 9:07 AM CDT Associated Order(s): ECG 12 lead Procedure ECG 12 lead Date/Time: 07/14/2022 9:07 AM Performed by: Michele Gastelum MD Authorized by: Michele Gastelum MD Rate: ECG rate: 114 ECG rate assessment: tachycardic Rhythm: Rhythm: sinus rhythm ST segments: ST segments: Non-specific T waves: T waves: normal Recommended Follow-up: Recommended follow up: further workup in the ED Michele Gastelum MD 07/14/22 0907 documented in this encounter Plan of Treatment Not on file documented as of this encounter Procedures Procedure Name Priority Date/Time Associated Diagnosis Comments SEPSIS LACTATE WITH REFLEX Timed 07/14/2022 1:57 PM CDT URINALYSIS AND REFLEX TO MICROSCOPIC AND CULTURE STAT 07/14/2022 10:20 AM CDT URINALYSIS, MICROSCOPIC ONLY STAT 07/14/2022 10:20 AM CDT URINE CULTURE STAT 07/14/2022 10:[address] ABDOMEN PELVIS WO CONTRAST ED 07/14/2022 9:38 AM CDT SEPSIS LACTATE WITH REFLEX STAT 07/14/2022 9:20 AM CDT EGFR STAT 07/14/2022 9:20 AM CDT DIFFERENTIAL AUTO STAT 07/14/2022 9:2 0 AM CDT THYROID FUNCTION CASCADE STAT 07/14/2022 9:20 AM CDT CBC WITH AUTO DIFFERENTIAL STAT 07/14/2022 9:20 AM CDT T4, FREE STAT 07/14/2022 9:20 AM CDT MAGNESIUM STAT 07/14/2022 9:20 AM CDT LIPASE STAT 07/14/2022 9:20 AM CDT COMPREHENSIVE METABOLIC PANEL STAT 07/14/2022 9:20 AM CDT ECG 12-LEAD STAT 07/14/2022 8:48 AM CDT documented in this encounter Results * Sepsis Lactate w/ Reflex (07/14/2022 1:57 PM CDT) Sepsis Lactate 1.4 0.7 - 2.0 mmol/L [facility] (ZANDER) Blood 07/14/2022 1:57 PM CDT 07/14/2022 1:59 PM CDT us Michele Gastelum MD LAB BLOOD ORDERABLE S Final Result [facility] (ZANDER) 1 [facility] Department [place] [address] * (ABNORMAL) Urine culture Urine (07/14/2022 10:20 AM CDT) Report Final Report: Growth indicates contamination with mixed bacterial meir. Please submit a new specimen with special attention given to the collection process and to prompt transport to the laboratory. (.) [facility]UAN [facility]IG[facility] (ZANDER) Comment:Testing performed by : [facility], [address] [place]., [address] Organism GROWTH INDICATES CONTAMINATION WITH MIXED MEIR. [facility] (ZANDER) Urine 07/14/2022 10:2 0 AM CDT 07/14/2022 2:24 PM CDT Narrative [facility] (ZANDER) - 07/15/2022 6:18 PM CDT Urine culture reflexed based upon urinalysis results. Testing performed by [facility] Microbiology Laboratory ([phone]) us Michele Gastelum MD LAB MICROBIOLOGY - GENERAL ORDERABLES Final Result [facility] (ZANDER) 1 [facility] [place] [address] * (ABNORMAL) Urinalysis, microscopic only (07/14/2022 10:20 AM CDT) WBC, ur >50(A) 0 - 5 /HPF [facility] (ZANDER) RBC, ur >50(A) 0 - 2 /HPF [facility] (ZANDER) Epithelial cells, squamous, ur 1-5 0 - 5 /HPF [facility] (ZANDER) Bacteria, ur 4+(A) [facility] (ZANDER) Mucous, ur Present(A) [facility] Vigil (ZANDER) Culture Reflex Comment Reflex to urine culture will be performed. [facility] (ZANDER) Urine 07/14/2022 10:2 0 AM CDT 07/14/2022 10:29 AM CDT us Michele Gastelum MD LAB URINE ORDERABLE S Final Result Performing Organization Address City/[facility]/ZIP Co de Phone Number [facility] (ZANDER) 1 [facility] [place] [address] * (ABNORMAL) Urinalysis reflex to microscopic and culture Urine (07/14/2022 10:20 AM CDT) Color, ur Dark-Yellow [facility] (ZANDER) Clarity, ur Turbid(A) Clear [facility] ([facility]) Specific gravity, ur 1.022 1.003 - 1.030 [facility] ([facility]) pH, urine 7.0 [facility] ([facility]) Protein, ur ql 3+(A) Negative [facility] ([facility]) Glucose, ur ql Negative Negative [facility] ([facility]) Ketones, ur Negative Negative [facility] ([facility]) Bilirubin, ur Negative Negative [facility] ([facility]) Blood, ur Negative Negative [facility] ([facility]) Urobilinogen, ur <2.0 <2.0 mg/dL [facility] ([facility]) Nitrite, ur Negative Negative [facility] ([facility]) Leukocyte esterase, ur 4+(A) Negative [facility] ([facility]) UA reflex comment Reflex to microscopic UA will be performed. [facility] ([facility]) Urine 07/14/2022 10:2 0 AM CDT 07/14/2022 10:29 AM CDT Narrative [facility] ([facility]) - 07/14/2022 11:03 AM CDT ?? Urine pH is affected by diet, medications, systemic acid-base disturbances, and renal tubular function. ??pH may affect urinary stone formation. ??For example, urine pH below 6.0 may help reduce the tendency for calcium phosphate stones and pH greater than 6.0 may reduce the tendency for uric acid stone formation. Source: [employer]. Last revised 11-18-2017 us Michele Gastelum MD LAB MICROBIOLOGY - GENERAL ORDERABLES Final Result [facility] (ZANDER) 1 [facility] [address] * CT Abdomen Pelvis WO Contrast (07/14/2022 9:38 AM CDT) Anatomical Region Laterality Modality Body N/A Computed Tomogra phy 07/14/2022 9:41 AM CDT Narrative 07/14/2022 9:59 AM CDT EXAM DESCRIPTION: ?? CT ABDOMEN PELVIS WO CONTRAST REASON FOR STUDY: ?? Right lower quadrant abdominal pain, constipation, nausea, and vomiting for 2 weeks. Hx of cholecystectomy. ? TECHNIQUE: CT scan of the abdomen and pelvis performed without intravenous and ??without ??oral contrast using helical scanning technique. Reconstructed coronal and sagittal MPR images reviewed. All images stored on PACS. ?? Automated exposure control was used as a dose optimization technique for this examination. COMPARISON: ?? 08/05/2021 FINDINGS: The sensitivity for detection of visceral lesions is diminished without the use of intravenous contrast. LOWER CHEST: ?? No significant pulmonary abnormalities. No effusion. LIVER: ?? Normal size. ??No identified cystic or solid masses. GALLBLADDER: ?? Removed. BILE DUCTS: ?? No intrahepatic or extrahepatic ductal dilatation. SPLEEN: ?? Normal size. ??No focal lesions. PANCREAS: ?? No identified cystic or solid masses. ??No significant calcifications. No adjacent inflammation or peripancreatic fluid collections. Pancreatic duct not dilated. ADRENALS: ?? Normal. KIDNEYS/URINARY TRACT: ?? A cyst in the anterior midpole of the right kidney (series 2, image 54) is better demonstrated on the prior contrast enhanced study and appears unchanged. ??Another isoattenuating lesion measuring 1 cm arising from the most inferior aspect of the right kidney is also stable, and most compatible with a hyperdense cyst no identified significant cystic or solid masses. No stones. No hydronephrosis or hydroureter. ?Postsurgical changes compatible with prior Mitrofanoff procedure noted in the pelvis. GI: ?? An ileocolic anastomosis is seen in the right lower quadrant. ??No dilated bowel loops. No obvious wall thickening. ??No significant diverticular disease. ?? Moderate amount of stool is seen in the colon, including the rectosigmoid. PERITONEUM: ?? No ascites or free air. RETROPERITONEUM: ?? No mass or adenopathy. ?? Previously enlarged bilateral iliac chain lymph nodes have decreased in size and are now within normal limits. REPRODUCTIVE: ?? No significant abnormality. VASCULATURE: ?? No abdominal aortic aneurysm. MUSCULOSKELETAL: ?? Bilateral hip joints are markedly dysplastic with exuberant heterotopic ossification formation. ??Focal lytic lucency in the sacrum and presacral inflammatory changes have significantly decreased and resolved, respectively from prior study. OTHER: ?? An IVC filter is again seen in stable position. ?? Previous fluid collection overlying the right paraspinal muscle at the level of L3 has further regressed and now measures approximately 4 x 1 cm, previously 6.5 x 1.8 cm, likely compatible with fibrotic granulation. ??A tract in the left gluteal region extends to the left ischial tuberosity with mild cortical erosion of the ischial tuberosity, similar to prior study. IMPRESSION: ??1. ??Postsurgical changes related to prior Mitrofanoff [...] on imaging basis and should be correlated clinically. REFERENCE: Unless otherwise specified, no follow-up imaging is recommended for incidental renal and adrenal lesions per consensus recommendations based on imaging criteria. Further lab evaluation could be pursued based on clinical findings. Management of the Incidental Renal Mass on CT: A White Paper of the ACR Incidental Findings Committee. J Am Darcy Radiol. 2018 Dec;15(2):264-273. Management of Incidental Adrenal Masses: A White Paper of the ACR Incidental Findings Committee. J Am Darcy Radiol. 2017 Jun;14(8):4673-6538. THIS IS AN ELECTRONICALLY VERIFIED FINAL REPORT 07/14/2022 9:59 AM - Electronically signed by ??Mono Vo M.D. ML: ML D: ??07/14/2022 9:59 AM T: ??07/14/2022 9:59 AM Report ID: [id number] Reading Location: ??[id number] Procedure Note Mono Vo MD - 07/14/2022 EXAM DESCRIPTION: CT ABDOMEN PELVIS WO CONTRAST REASON FOR STUDY: Right lower quadrant abdominal pain, constipation,nausea, and vomiting for 2 weeks. Hx of cholecystectomy. TECHNIQUE: CT scan of the abdomen and pelvis performed without intravenousand without oral contrast using helical scanning technique. Reconstructed coronal and sagittal MPR images reviewed. All images stored on PACS. Automated exposure control was used as a dose optimization technique forthis examination. COMPARISON: 08/05/2021 FINDINGS: The sensitivity for detection of visceral lesions is diminished withoutthe use of intravenous contrast. LOWER CHEST: No significant pulmonary abnormalities. No effusion. LIVER: Normal size. No identified cystic or solid masses. GALLBLADDER: Removed. BILE DUCTS: No intrahepatic or extrahepatic ductal dilatation. SPLEEN: Normal size. No focal lesions. PANCREAS: No identified cystic or solid masses. No significant calcifications. No adjacent inflammation or peripancreatic fluidcollections. Pancreatic duct not dilated. ADRENALS: Normal. KIDNEYS/URINARY TRACT: A cyst in the anterior midpole of the rightkidney (series 2, image 54) is better demonstrated on the prior contrast enhanced study and appears unchanged. Another isoattenuating lesion measuring 1 cm arising from the most inferior aspect of the right kidney is also stable,and most compatible with a hyperdense cyst no identified significant cystic or solid masses. No stones. No hydronephrosis or hydroureter. Postsurgical changes compatible with prior Mitrofanoff procedure noted in the pelvis. GI: An ileocolic anastomosis is seen in the right lower quadrant. No dilated bowel loops. No obvious wall thickening. No significantdiverticular disease. Moderate amount of stool is seen in the colon, including the rectosigmoid. PERITONEUM: No ascites or free air. RETROPERITONEUM: No mass or adenopathy. Previously enlarged bilateral iliac chain lymph nodes have decreased in size and are now within normal limits. REPRODUCTIVE: No significant abnormality. VASCULATURE: No abdominal aortic aneurysm. MUSCULOSKELETAL: Bilateral hip joints are markedly dysplastic withexuberant heterotopic ossification formation. Focal lytic lucency in the sacrum and presacral inflammatory changes have significantly decreased and resolved, respectively from prior study. OTHER: An IVC filter is again seen in stable position. Previous fluid collection overlying the right paraspinal muscle at the level of L3 has further regressed and now measures approximately 4 x 1 cm, previously 6.5x 1.8 cm, likely compatible with fibrotic granulation. A tract in the left gluteal region extends to the left ischial tuberosity with mild cortical erosion of the ischial tuberosity, similar to prior study. IMPRESSION: 1. Postsurgical changes related to prior Mitrofanoff procedure. Noacute findings in the abdomen and pelvis. 2. Moderate amount of stool in the colon including the rectosigmoid. 3. Markedly improved lytic lucency involving the sacrum, with resolved lymphadenopathy in the bilateral iliac chains, most compatible withtreated osteomyelitis. A tract extending from the left gluteal region to the underlying ischial tuberosity, with mild focal cortical erosion of theischial tuberosity, is stable in appearance and favored to represent granulated decubitus ulcer and treated osteomyelitis. Any residual inflammation/infection is difficult to exclude on imaging basis and shouldbe correlated clinically. REFERENCE: Unless otherwise specified, no follow-up imaging is recommendedfor incidental renal and adrenal lesions per consensus recommendations basedon imaging criteria. Further lab evaluation could be pursued based onclinical findings. Management of the Incidental Renal Mass on CT: A White Paper of the ACR Incidental Findings Committee. J Am Darcy Radiol. 2018 Dec;15(2):264-273. Management of Incidental Adrenal Masses: A White Paper of the ACRIncidental Findings Committee. J Am Darcy Radiol. 2017 Jun;14(8):3474-9698. THIS IS AN ELECTRONICALLY VERIFIED FINAL REPORT 07/14/2022 9:59 AM - Electronically signed by Mono Vo M.D. ML: ML Report ID: [id number] Reading Location: [id number] Michele Gastelum MD IMG CT PROCEDURES F inal Result * (ABNORMAL) T4, free (07/14/2022 9:20 AM CDT) Free T4 1.98(H) 0.90 - 1.70 ng/dL [facility] ([facility]) Blood 07/14/2022 9:20 AM CDT 07/14/2022 9:27 AM CDT Narrative JUAN ZUÑIGA (ZANDER) - 07/14/2022 10:29 AM CDT This test was reflexed from a TSH result. us Michele Gastelum MD LAB BLOOD ORDERABLE S Final Result [facility] (ZANDER) 1 [facility] Department [place] [address] * eGFR (07/14/2022 9:20 AM CDT) eGFR 127 mL/min/1. 73 m2 [facility]UAN [facility]UÑIGA (ZANDER) Comment: Interpretive Data Reference Interval Normal ?>/= [...] interpretive data was last reviewed 2021. Blood 07/14/2022 9:20 AM CDT 07/14/2022 9:27 AM CDT us Michele Gastelum MD LAB BLOOD ORDERABLE S Final Result [facility] ([facility]) 1 [facility] Department [place] [address] * Differential, auto (07/14/2022 9:20 AM CDT) Neutrophil abs 5.3 1.7 - 6.5 K/cumm [facility] ([facility]) Imm gran abs 0.1 0.0 - 0.1 K/cumm [facility] ([facility]) Lymphocyte abs 1.9 0.8 - 3.3 K/cumm [facility] ([facility]) Monocyte abs 0.7 0.2 - 0.8 K/cumm [facility] ([facility]) Eosinophil abs 0.1 0.0 - 0.5 K/cumm [facility] ([facility]) Basophil abs 0.0 0.0 - 0.1 K/cumm [facility] [facility] ([facility]) Neutrophil pct 65.3 % [facility] ([place]) Comment: Interpretive Data Percent cell count reference ranges are not reported, since discordance with absolute values may lead to misinterpretation of CBC data. Current Interpretive Data was last revised on 2018. Imm gran pct 0.6 % [facility] ([facility]) Comment: Interpretive Data Percent cell count reference ranges are not reported, since discordance with absolute values may lead to misinterpretation of CBC data. Current Interpretive Data was last revised on 2018. Lymphocyte pct 24.0 % [facility] ([facility]) Comment: Interpretive Data Percent cell count reference ranges are not reported, since discordance with absolute values may lead to misinterpretation of CBC data. Current Interpretive Data was last revised on 2018. Monocyte pct 8.4 % [facility] ([facility]) Comment: Interpretive Data Percent cell count reference ranges are not reported, since discordance with absolute values may lead to misinterpretation of CBC data. Current Interpretive Data was last revised on 2018. Eosinophil pct 1.5 % [facility] ([place]) Comment: Interpretive Data Percent cell count reference ranges are not reported, since discordance with absolute values may lead to misinterpretation of CBC data. Current Interpretive Data was last revised on 2018. Basophil pct 0.2 % [facility] ([facility]) Comment: Interpretive Data Percent cell count reference ranges are not reported, since discordance with absolute values may lead to misinterpretation of CBC data. Current Interpretive Data was last revised on 2018. Blood 07/14/2022 9:20 AM CDT 07/14/2022 9:28 AM CDT Michele Gastelum MD LAB BLOOD ORDERABLE S Final Result Performing Organization Address City/[facility]/ZIP Co de Phone Number JUAN [facility] ([place]) [address] [facility] [place] [address] * Lipase (07/14/2022 9:20 AM CDT) Lipase 55 10 - 99 Units/L JERMAINWILLIE [facility] ([place]) Blood 07/14/2022 9:20 AM CDT 07/14/2022 9:27 AM CDT us Michele Gastelum MD LAB BLOOD ORDERABLE S Final Result Performing Organization Address [facility] de Phone Number JUAN [facility] ([place]) 1 [facility] [place] [address] * (ABNORMAL) Sepsis Lactate w/ Reflex (07/14/2022 9:20 AM CDT) Sepsis Lactate 2.6(H) 0.7 - 2.0 mmol/L [facility] ([place]) Blood 07/14/2022 9:20 AM CDT 07/14/2022 9:27 AM CDT Michele Gastelum MD LAB BLOOD ORDERABLE S Final Result Performing Organization Address City/[facility] Co de Phone Number JUAN [facility] ([place]) 1 [facility] [place] [address] * (ABNORMAL) TSH reflex to free T4 (07/14/2022 9:20 AM CDT) TSH 0.03(L) 0.30 - 4.20 mcIUnit/mL [facility] ([place]) Blood 07/14/2022 9:20 AM CDT 07/14/2022 9:27 AM CDT us Michele Gastelum MD LAB BLOOD ORDERABLE S Final Result Performing Organization Address City/[facility]/ZIP Co de Phone Number JUAN [facility] ([place]) 1 [facility] [place] [address] * Magnesium (07/14/2022 9:20 AM CDT) Magnesium 2.2 1.4 - 2.5 mg/dL [facility] ([facility]) Blood 07/14/2022 9:20 AM CDT 07/14/2022 9:27 AM CDT us Michele Gastelum MD LAB BLOOD ORDERABLE S Final Result Performing Organization Address [facility] de Phone Number [facility] ([place]) 1 [facility] [place] [address] * (ABNORMAL) Comprehensive metabolic panel (07/14/2022 9:20 AM CDT) Sodium 137 135 - 145 mmol/L [facility] Potassium, pl 4.0 3.3 - 4.9 mmol/L [facility] ([place]) Chloride 104 97 - 110 mmol/L [facility] CO2 21(L) 22 - 32 mmol/L [facility] ([place]) Anion gap 12 2 - 15 mmol/L [facility] ([place]) BUN 16 8 - 25 mg/dL [facility] ([place]) Creatinine 0.59(L) 0.80 - 1.30 mg/dL [facility] ([place]) Glucose 116 70 - 199 mg/dL [facility] ([place]) Comment: Interpretive Data Fasting glucose >/= 126 [...] 2017. Calcium 9.5 8.5 - 10.3 mg/dL [facility] ([place]) Bilirubin, total 0.4 0.1 - 1.2 mg/dL [facility] ([place]) Protein, pl 7.4 6.5 - 8.5 g/dL [facility] ([place]) Albumin 4.0 3.5 - 5.0 g/dL [facility] ([place]) Alk phos 126 40 - 130 Units/L [facility] ([place]) ALT 33 7 - 55 Units/L [facility] ([place]) AST 19 10 - 50 Units/L [facility] ([place]) Blood 07/14/2022 9:20 AM CDT 07/14/2022 9:27 AM CDT us Michele Gastelum MD LAB BLOOD ORDERABLE S Final Result [facility] ([place]) 1 [facility] [place] [address] * (ABNORMAL) CBC with auto differential (07/14/2022 9:20 AM CDT) WBC 8.1 3.8 - 9.9 K/cumm [facility] ([place]) Hgb 12.8(L) 13.0 - 17.5 g/dL [facility] ([place]) Hct 38.8(L) 38.9 - 50.3 % [facility] ([place]) Plt 227 150 - 400 K/cumm [facility] ([place]) MPV 11.9 9.1 - 12.3 fL [facility] ([place]) RBC 4.73 4.30 - 5.80 M/cumm [facility] ([place]) MCV 82.0 81.3 - 96.4 fL [facility] ([place]) MCH 27.1 27.1 - 33.3 pg [facility] ([place]) MCHC 33.0 32.3 - 35.7 g/dL [facility] ([place]) RDW CV 14.8 11.1 - 14.9 % [facility] ([place]) RDW SD 44.7 35.7 - 48.1 fL [facility] ([place]) NRBC abs 0.00 0.00 - 0.01 K/cumm [facility] ([place]) Blood 07/14/2022 9:20 AM CDT 07/14/2022 9:28 AM CDT Michele Gastelum MD LAB BLOOD ORDERABLE S Final Result Performing Organization Address [facility] Co de Phone Number JUAN [facility] ([place]) 1 [facility] of Laboratories [place] [id number] * ECG 12 lead (07/14/2022 8:48 AM CDT) 07/14/2022 8:48 AM CDT Narrative [facility] 07/14/2022 12:47 PM CDT Vent Rate: 114 bpm RR Interval: 524 msec MN Interval: 151 msec QRS Duration: 99 msec QT Interval: 318 msec QTC Interval: 386 msec P-R-T [place]: 47 - 44 - 15 degrees SINUS TACHYCARDIA NONSPECIFIC T-WAVE ABNORMALITY ABNORMAL RHYTHM ECG Electronically Signed By: Daniel Greenwood MD Michele Gastelum MD ECG ORDERABLES Fin al Result Performing Organization Address [facility] Co de Phone Number [facility] documented in this encounter Visit Diagnoses Diagnosis Constipation, unspecified constipation type- Primary Pyuria Other nonspecific finding on examination of urine Hyperthyroidism Thyrotoxicosis without mention of goiter or other cause, without mention of thyrotoxic crisis or storm documented in this encounter Administered Medications Inactive Administered Medications - up to 3 most recent administrations Medication Order MAR Action Action Date Dose Rate Site morphine injection 8 mg 8 mg, intravenous, Administer over 4 Minutes, Every 10 min PRN, Moderate/severe pain, Starting on Wed07/14/22 at 0906, For 3 doses, Indications: PainIndications:Pain Given 07/14/2022 1:07 PM CDT 8 mg Given 07/14/2022 11:53 AM CDT 8 mg Given 07/14/2022 9:57 AM CDT 8 mg naloxone (NARCAN) injection 2 mg 2 mg, intravenous, Once, On Wed07/14/22 at 1134, For 1 dose, ORAL Given 07/14/2022 11:52 AM CDT 2 mg ondansetron (ZOFRAN) injection 4 mg 4 mg, intravenous, Administer over 2 Minutes, Every 30 min PRN, nausea, vomiting, Starting on Wed07/14/22 at 0858, For 2 doses, Indications: Nausea, VomitingIndications:Nausea,Vomiting Given 07/14/2022 11:53 AM CDT 4 mg Given 07/14/2022 9:59 AM CDT 4 mg propranoloL (INDERAL) tablet 40 mg 40 mg, oral, Once, On Wed07/14/22 at 1138, For 1 dose Given 07/14/2022 12:59 PM CDT 40 mg sodium chloride 0.9% bolus 1,000 mL 1,000 mL, intravenous, Once, On Wed07/14/22 at 0859, For 1 dose New Bag 07/14/2022 9:53 AM CDT 1,000 mL documented in this encounter Discontinued Medications Medication Sig Discontinue Reason Start Date End Da te propranoloL (INDERAL) 40 mg tablet Take 1 tablet (40 mg total) by mouth 2 (two) times a day Reorder 07/14/2022 07/14/2022 propranoloL (INDERAL) 40 mg tablet Take 1 tablet (40 mg total) by mouth 2 (two) times a day Reorder 07/14/2022 07/14/2022 documented as of this encounter Active and Recently Administered Medications Times are shown in CDT. Scheduled Medication Order 07/12/2022 07/13/2022 07/14/2022 naloxone (NARCAN) injection 2 mg (COMPLETED) 2 mg, intravenous, Once, On Wed07/14/22 at 1134, For 1 dose, ORAL 1152 (Given - Provid er: Feng Thomas RN - Comment: oral) propranoloL (INDERAL) tablet 40 mg (COMPLETED) 40 mg, oral, Once, On Wed07/14/22 at 1138, For 1 dose 1259 (Given - Provid er: Feng Thomas RN) sodium chloride 0.9% bolus 1,000 mL (COMPLETED) 1,000 mL, intravenous, Once, On Wed07/14/22 at 0859, For 1 dose 0953 (New Bag - Prov ider: Micaela Johansen, PARAM)1300 (Stopped - Provider: Feng Thomas RN) PRN Medication Order 07/12/2022 07/13/2022 07/14/2022 morphine injection 8 mg (COMPLETED) 8 mg, intravenous, Administer over 4 Minutes, Every 10 min PRN, Moderate/severe pain, Starting on Wed07/14/22 at 0906, For 3 doses, Indications: Pain 0957 (Given - Provid er: Feng Thomas RN)1036 (Not Given - Provider: Shaq Holden RN - Reason: Other - Comment: dupliate)1153 (Given - Provider: Feng Thomas RN)1307 (Given - Provider: Feng Thomas RN) ondansetron (ZOFRAN) injection 4 mg (COMPLETED) 4 mg, intravenous, Administer over 2 Minutes, Every 30 min PRN, nausea, vomiting, Starting on Wed07/14/22 at 0858, For 2 doses, Indications: Nausea, Vomiting 0959 (Given - Provid er: Feng Thomas RN)1036 (Not Given - Provider: Shaq Holden RN - Reason: Other - Comment: duplicate)1153 (Given - Provider: Feng Thomas RN) documented in this encounter Orders Nursing Count Last Ordered Date First Orde red Date SOAP SUDS ENEMA 1 07/14/2022 documented in this encounter Additional Health Concerns Infection Onset Date Last Indicated Resolved Time 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
--- OUTSIDE RECORDS SUMMARY | 2024-11-11 02:10 | XMS_ITS | Encounter Summary ---
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 Gender Identity Male 05/21/2022 3:19 PM CDT Sexual Orientation Straight 05/21/2022 3: 19 PM CDT documented as of this encounter Miscellaneous Notes * Telephone Encounter - Kasia Soriano - 07/29/2021 3:50 PM CDT Called facility again and left VM with transportation to get pt rescheduled for CT documented in this encounter Plan of Treatment Not on file documented as of this encounter Visit Diagnoses Not on filedocumented in this encounter Additional Health Concerns Infection Onset Date Last Indicated Resolved Time 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
--- OUTSIDE RECORDS SUMMARY | 2024-11-11 02:10 | XMS_ITS | Encounter Summary ---
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 Gender Identity Male 05/21/2022 3:19 PM CDT Sexual Orientation Straight 05/21/2022 3: 19 PM CDT documented as of this encounter Progress Notes * Kasia Soriano - 07/09/2021 9:29 AM CDT Called IR and they want a more recent CT scan to determine if drainage is required documented in this encounter Plan of Treatment Not on file documented as of this encounter Visit Diagnoses Diagnosis Infected fluid collection without fistula- Primary Unspecified infectious and parasitic diseases documented in this encounter Additional Health Concerns Infection Onset Date Last Indicated Resolved Time 

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
--- OUTSIDE RECORDS SUMMARY | 2024-11-11 02:11 | XMS_ITS | Encounter Summary ---
Author Organization [facility] Healthcare Address [address] [place] [address] Care Team Providers Care Merchant Miller Name Role Phone Saw Louie MD Primary Care Provider [phone] Encounter Details Date Type Department Care Team (Late st Contact Info) Description 05/06/2021 Telephone Infectious Diseases Maryanne Garcia NP [address] [facility] [address] [place] [address] Social History Tobacco Use Types Packs/Day Years Used Date Smoking Tobacco: Former AUDIT-C Answer Date Recorded Q1: How often do you have a drink containing alc ohol? Never 03/28/2021 Average Number of Drinks Not on file 021 Frequency of Binge Drinking Not on file 03/09 Sex and Gender Information Value Date Recorded Sex Assigned at Not on file Legal Sex Male 5:38 AM BASKET FILLER Gender Identity Male 05/21/2022 3:19 PM CDT Sexual Orientation Straight 05/21/2022 3: 19 PM CDT documented as of this encounter Ordered Prescriptions Prescription Sig Dispense Quantity Refills Last Filled Start Date End Date amoxicillin-clavul anate (AUGMENTIN) 875-125 mg per tablet Take 1 tablet by mouth 2 (two) times a day 60 tablet 05/06/2021 05/28/2021 documented in this encounter Miscellaneous Notes * Telephone Encounter - Maryanne Garcia NP - 05/06/2021 2:46 PM CDT OPAT MONITORING NOTE Patient is being treated with Ceftriaxone 2g IV q day due to 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 Discharged from [facility] on 04/11 and currently on week 6 of therapy (start date 03/28), anticipated 6 weeks of therapy with firm stop on 05/08. 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 Discussed with Dr. Liang, will start suppressive Augmentin now and get pt rescheduled for ID follow up documented in this encounter Plan of Treatment Not on file documented as of this encounter Visit Diagnoses Not on filedocumented in this encounter Discontinued Medications Medication Sig Discontinue Reason Start Date End Da te cefTRIAXone (ROCEPHIN) syringeIndications:Bone /Joint Infection Infuse 20 mL (2,000 mg total) into a venous catheter daily for 27 days Total of 6 weeks from 5.21.21 04/12/2021 05/06/2021 documented as of this encounter Additional Health Concerns Infection Onset Date Last Indicated Resolved Time MRSA Comment: 03/31/2021 IP Review - 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 Not a candidate for isolation discontinuation at this time. 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
--- OUTSIDE RECORDS SUMMARY | 2024-11-11 02:11 | XMS_ITS | Encounter Summary ---
Author Organization [facility] Healthcare Address [address] [place] [address] Care Team Providers Care Blasting Contract Man Name Role Phone Saw Louie MD Primary Care Provider [phone] Encounter Details Date Type Department Care Team (Late st Contact Info) Description 07/03/2021 5:10 PM CDT Lab [address] [address] Social History Tobacco Use Types Packs/Day Years Used Date Smoking Tobacco: Former AUDIT-C Answer Date Recorded Q1: How often do you have a drink containing alc ohol? 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
--- OUTSIDE RECORDS SUMMARY | 2024-11-11 02:11 | XMS_ITS | Encounter Summary ---
Author Organization [facility] Healthcare Address [address] [place] [address] Care Team Providers Care Crib Clerk Name Role Phone Saw Louie MD Primary Care Provider [phone] Reason for Visit * Reason Onset Date Comments OPAT 04/24/2021 Encounter Details Date Type Department Care Team (Late st Contact Info) Description 04/24/2021 Telephone Infectious Diseases Maryanne Garcia NP [address] [facility] [address] [place], [place] [id number] OPAT Social History Tobacco Use Types Packs/Day Years Used Date Smoking Tobacco: Former AUDIT-C Answer Date Recorded Q1: How often do you have a drink containing alc ohol? Never 03/28/2021 Average Number of Drinks Not on file 021 Frequency of Binge Drinking Not on file 03/09 Sex and Gender Information Value Date Recorded Sex Assigned at Not on file Legal Sex Male 5:38 AM LAND CONSERVATION SPECIALIST Gender Identity Male 05/21/2022 3:19 PM CDT Sexual Orientation Straight 05/21/2022 3: 19 PM CDT documented as of this encounter Miscellaneous Notes * Telephone Encounter - Maryanne Garcia NP - 04/24/2021 3:07 PM CDT OPAT MONITORING NOTE Patient is being treated with Ceftriaxone 2g IV q day due to 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 Discharged from [facility] on 04/11 and currently on week 3 of therapy (start date 03/28), anticipated 6 weeks of therapy with firm stop on 05/08. Weekly lab monitoring includes: CMP and CBC Home Infusion Agency/RN: Labs Scr: 04/09 0.59 AST/ALT 04/09 49/40 WBC 04/10 11 Assessment/Plan: -Missing labs. Called SNF again and spoke with RN Rosalina, has labs results and will fax over to clinic now. -Continue with current antibiotics -Next labs due: now -ID appt: 05/01 documented in this encounter Plan of Treatment [...] watcher auto flagging 07/01/2013 07/01/201310/03 4:34 PM LAND CONSERVATION SPECIALIST VRE 04/09/2021 04/09/2021 01/06/2022 4:00 AM LAND CONSERVATION SPECIALIST documented as of this encounter Care Teams Crib Clerk Relationship Specialty Start Date End Date Saw Louie MD [facility] [place] [address] PCP - General 03/31/21 07/13/22 documented as of this encounter
--- OUTSIDE RECORDS SUMMARY | 2024-11-11 02:11 | XMS_ITS | Encounter Summary ---
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 May 13, 2021 at 5:38 PM I have reviewed the images & the resident's interpretation. I agree with the findings. Electronically signed by DANIEL LLANES on Friday, May 14, 2021 at 4:18 PM I have reviewed the images & the resident's interpretation. I agree with the findings. Procedure Note Daniel Llanes MD - 05/14/2021 Performed by: Vic Webster Renal: Exam Information: Exam type: Diagnostic Indication(s) for Exam: Abdominal Pain Other: suprapubic catheter present Findings: R Hydronephrosis: Absent R Hydoureter: Absent L Hydronephrosis: Absent L Hydoureter: Indeterminate Bladder Dimensions (mm) - width, height, depth: completelydecompressed. Bladder volume (ml) =: 0 Interpretation: No sonographic evidence of renal tract obstruction Other: Comments: Completely decompressed bladder. SPC balloon seeninflated within abdomen but unable to determine whether it's specificallywithin the bladder. Electronically signed by Vic Webster on Thursday, May 13, 2021 at 5:38PM I have reviewed the images & the resident's interpretation. I agree withthe findings. Electronically signed by DANIEL LLANES on Friday, May 14, 2021 at 4:18PM I have reviewed the images & the resident's interpretation. I agree withthe findings. Daniel Llanes MD POCUS ORDERABLES Final Result * (ABNORMAL) Differential, auto (05/13/2021 4:30 PM CDT) Neutrophil abs 10.3(H) 1.7 - 6.5 K/cumm [facility] Imm gran abs 0.1 0.0 - 0.1 K/cumm [facility] Lymphocyte abs 1.5 0.8 - 3.3 K/cumm [facility] Monocyte abs 0.4 0.2 - 0.8 K/cumm [facility] Eosinophil abs 0.2 0.0 - 0.5 K/cumm [facility] Basophil abs 0.0 0.0 - 0.1 K/cumm [facility] Neutrophil pct 82.6 % [facility] Comment: Interpretive Data Percent cell count reference ranges are not reported, since discordance with absolute values may lead to misinterpretation of CBC data. Current Interpretive Data was last revised on 2018. Imm gran pct 0.9 % [facility] Comment: Interpretive Data Percent cell count reference ranges are not reported, since discordance with absolute values may lead to misinterpretation of CBC data. Current Interpretive Data was last revised on 2018. Lymphocyte pct 11.8 % [facility] Comment: Interpretive Data Percent cell count reference ranges are not reported, since discordance with absolute values may lead to misinterpretation of CBC data. Current Interpretive Data was last revised on 2018. Monocyte pct 3.1 % [facility] Comment: Interpretive Data Percent cell count reference ranges are not reported, since discordance with absolute values may lead to misinterpretation of CBC data. Current Interpretive Data was last revised on 2018. Eosinophil pct 1.4 % [facility] Comment: Interpretive Data Percent cell count reference ranges are not reported, since discordance with absolute values may lead to misinterpretation of CBC data. Current Interpretive Data was last revised on 2018. Basophil pct 0.2 % [facility] Comment: Interpretive Data Percent cell count reference ranges are not reported, since discordance with absolute values may lead to misinterpretation of CBC data. Current Interpretive Data was last revised on 2018. Blood specimen (specimen) 05/13/2021 4:30 PM CDT 05/13/2021 4:44 PM CDT Micaela Song MD LAB BLOOD ORDERABLES Final Result [facility] Department [place] [address] * Basic metabolic panel (05/13/2021 4:30 PM CDT) Sodium 139 135 - 145 mmol/L [facility] Potassium, pl 4.5 3.3 - 4.9 mmol/L [facility] Chloride 101 97 - 110 mmol/L [facility] CO2 26 22 - 32 mmol/L [facility] Anion gap 12 2 - 15 mmol/L [facility] BUN 18 8 - 25 mg/dL [facility] Creatinine 1.08 0.80 - 1.30 mg/dL [facility] Glucose 101 70 - 199 mg/dL [facility] Comment: Interpretive Data Fasting glucose >/= [...] interpretive data was last revised 2017. Calcium 10.1 8.5 - 10.3 mg/dL [facility] Blood specimen (specimen) 05/13/2021 4:30 PM CDT 05/13/2021 4:44 PM CDT Micaela Song MD LAB BLOOD ORDERABLES Final Result [facility] Department [place] [address] * (ABNORMAL) CBC with auto differential (05/13/2021 4:30 PM CDT) WBC 12.2(H) 3.8 - 9.9 K/cumm [facility] Hgb 10.2(L) 13.0 - 17.5 g/dL [facility] Hct 33.2(L) 38.9 - 50.3 % [facility] Plt 481(H) 150 - 400 K/cumm [facility] MPV 9.8 9.1 - 12.3 fL [facility] RBC 4.05(L) 4.30 - 5.80 M/cumm [facility] MCV 82.0 81.3 - 96.4 fL [facility] MCH 25.2(L) 27.1 - 33.3 pg [facility] MCHC 30.7(L) 32.3 - 35.7 g/dL [facility] RDW CV 15.9(H) 11.1 - 14.9 % [facility] RDW SD 47.7 35.7 - 48.1 fL [facility] NRBC abs 0.00 0.00 - 0.01 K/cumm [facility] Blood specimen (specimen) 05/13/2021 4:30 PM CDT 05/13/2021 4:44 PM CDT Micaela Song MD LAB BLOOD ORDERABLES Final Result [facility] Department [place] [address] documented in this encounter Visit Diagnoses Diagnosis Suprapubic catheter dysfunction, initial encounter (HCC)- Primary Abdominal pain Abdominal pain, unspecified site Paraplegia at T4 level (CMS/HCC) (HCC) Bladder stones Other calculus in bladder documented in this encounter Administered Medications Inactive Administered Medications - up to 3 most recent administrations Medication Order MAR Action Action Date Dose Rate Site Lactated Ringer's (LR) bolus 1,000 mL 1,000 mL, intravenous, Once, On Wed05/13/21 at 1703, For 1 dose New Bag 05/13/2021 5:14 PM CDT 1,000 mL sodium chloride 0.9% 0.9 % irrigation - ADS Override Pull Starting on Wed05/13/21 at 1723, For 1 dose, Created by cabinet override sodium chloride 0.9% irrigation 1,000 mL 1,000 mL, irrigation, Once, On Wed05/13/21 at 1726, For 1 dose Given by Other 05/13/2021 5:26 PM CDT 1,000 mL documented in this encounter Active and Recently Administered Medications Times are shown in CDT. Scheduled Medication Order 05/11/2021 05/12/2021 05/13/2021 acetaminophen (TYLENOL) tablet 1,000 mg 1,000 mg, oral, Once, On Wed05/13/21 at 1821, For 1 dose 1943 (Hold - Provide r: Alexandra Colby RN - Reason: Other) Lactated Ringer's (LR) bolus 1,000 mL (COMPLETED) 1,000 mL, intravenous, Once, On Wed05/13/21 at 1703, For 1 dose 1714 (New Bag - Prov ider: Rosalba Vital RN)1812 (Stopped - Provider: Alexandra Colby RN) sodium chloride 0.9% irrigation 1,000 mL (COMPLETED) 1,000 mL, irrigation, Once, On Wed05/13/21 at 1726, For 1 dose 1726 (Given by Other - Provider: Yifan Boland RN) documented in this encounter Orders Medications Ordered That Camron ht Not Have Been Administered Count Last Ordered Date First Ordered Date acetaminophen (TYLENOL) tablet 1,000 mg 1 0 05/13/2021 sodium chloride 0.9 % irriga tion for CBI 3,000 mL 1 05/13/2021 Consult Count Last Ordered Date First Orde red Date IP CONSULT TO UROLOGY 1 05/13/2021 documented in this encounter Additional Health Concerns Infection Onset Date Last Indicated Resolved Time MRSA Comment: 03/31/2021 IP Review - 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 Not a candidate for isolation discontinuation at this time. Ananda Murphy generated from [facility] 02/01/2012 02/01/2012 06/25/2021 5:00 AM C DT MDR gram neg/ESBL Comment:Germ watcher auto flagging 07/01/2013 07/01/201310/03 4:34 PM THREAD REELER VRE 04/09/2021 04/09/2021 01/06/2022 4:00 AM THREAD REELER documented as of this encounter Care Teams Audit Associate Relationship Specialty Start Date End Date Saw Louie MD [address] [place] [address] PCP - General 03/31/21 07/13/22 documented as of this encounter
--- OUTSIDE RECORDS SUMMARY | 2024-11-11 02:11 | XMS_ITS | Encounter Summary ---
Author Organization [facility] Healthcare Address [address] [place] [address] Care Team Providers Care Wood Barrel Reconditioner Name Role Phone Saw Louie MD Primary Care Provider [phone] Reason for Visit * Reason Onset Date Comments OPAT 04/18/2021 Encounter Details Date Type Department Care Team (Late st Contact Info) Description 04/18/2021 Telephone Infectious Diseases Maryanne Garcia NP [address] [facility] [facility] [address] [place], [place] [id number] OPAT Social History Tobacco Use Types Packs/Day [...] on file Legal Sex Male 5:38 AM PHOTOGRAPH PRINTER Gender Identity Male 05/21/2022 3:19 PM CDT Sexual Orientation Straight 05/21/2022 3: 19 PM CDT documented as of this encounter Miscellaneous Notes * Telephone Encounter - Maryanne Garcia NP - 04/18/2021 3:48 PM CDT OPAT MONITORING NOTE Patient is being treated with Ceftriaxone 2g IV q day due to 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 Discharged from [facility] on 04/11 and currently on week 3 of therapy (start date 03/28), anticipated 6 weeks of therapy with firm stop on 05/08. Weekly lab monitoring includes: CMP and CBC Home Infusion Agency/HHRN: Labs Scr: 04/09 0.59 AST/ALT 04/09 49/40 WBC 04/10 11 Assessment/Plan: -Missing labs. Called SNF and spoke with PARAM Markham- she will get labs ordered and sent to clinic, likely will be drawn on Wednesday -Continue with current antibiotics -Next labs due: [...] watcher auto flagging 07/01/2013 07/01/201310/03 4:34 PM PHOTOGRAPH PRINTER VRE 04/09/2021 04/09/2021 01/06/2022 4:00 AM PHOTOGRAPH PRINTER documented as of this encounter Care Teams Wood Barrel Reconditioner Relationship Specialty Start Date End Date Saw Louie MD [facility] [place] [address] PCP - General 03/31/21 07/13/22 documented as of this encounter
--- OUTSIDE RECORDS SUMMARY | 2024-11-11 02:11 | XMS_ITS | Encounter Summary ---
Author Organization [facility] Healthcare Address [address] [place] [address] Care Team Providers Care Textile Conservator Name Role Phone Saw Louie MD Primary Care Provider Encounter Details Date Type Department Care Team (Late st Contact Info) Description 04/30/2021 Telephone Infectious Diseases Maryanne Garcia NP [address] [facility] [address] [place] [address] Social History Tobacco Use Types Packs/Day Years Used Date Smoking Tobacco: Former AUDIT-C Answer Date Recorded Q1: How often do you have a drink containing alc ohol? 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 Discharged from [facility] on 04/11 and currently on week 5 of therapy (start date 03/28), anticipated 6 weeks of therapy with firm stop on 05/08. Weekly lab monitoring includes: CMP and CBC Home Infusion Agency/HHRN: Labs Scr: 04/09 0.59 04/22 0.6 AST/ALT 04/09 49/40 04/22 30/55 WBC 04/10 11 615 9 Assessment/Plan: -Missing labs, called SNF and spoke with Magali his nurse, she will try to locate them and fax them over. Magali informed me that patient is currently hospitalized for urology procedure and ID follow up will need to be rescheduled. I provided clinic number to call and reschedule -Continue with current antibiotics -Next labs due: now -ID appt: TBD documented in this encounter Plan of Treatment [...] watcher auto flagging 07/01/2013 07/01/201310/03 4:34 PM GEOSCIENCE PROFESSOR VRE 04/09/2021 04/09/2021 01/06/2022 4:00 AM GEOSCIENCE PROFESSOR documented as of this encounter Care Teams Textile Conservator Relationship Specialty Start Date End Date Saw Louie MD [address] [place] [address] PCP - General 03/31/21 07/13/22 documented as of this encounter
--- OUTSIDE RECORDS SUMMARY | 2024-11-11 02:11 | XMS_ITS | Encounter Summary ---
Author Organization [facility] Healthcare Address [address] [place] [address] Care Team Providers Care Cement Or Concrete Finishing Supervisor Name Role Phone Saw Louie MD Primary Care Provider [phone] Reason for Visit * Reason Onset Date Comments OPAT 04/28/2021 Encounter Details Date Type Department Care Team (Late st Contact Info) Description 04/28/2021 Telephone Infectious Diseases [facility]anne Garcia NP [address] [facility] [address] [place], [place] [id number] OPAT Social History Tobacco Use Types Packs/Day [...] on file Legal Sex Male 5:38 AM INVENTORY CONTROL ANALYST Gender Identity Male 05/21/2022 3:19 PM CDT Sexual Orientation Straight 05/21/2022 3: 19 PM CDT documented as of this encounter Miscellaneous Notes * Telephone Encounter - Maryanne Garcia NP - 04/28/2021 4:32 PM CDT OPAT MONITORING NOTE Patient is being treated with Ceftriaxone 2g IV q day due to 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 Discharged from [facility] on 04/11 and currently on week 5 of therapy (start date 03/28), anticipated 6 weeks of therapy with firm stop on 05/08. Weekly lab monitoring includes: CMP and CBC Home Infusion Agency/RN: Labs Scr: 04/09 0.59 04/22 0.6 AST/ALT 04/09 49/40 04/22 30/55 WBC 04/10 11 615 9 Assessment/Plan: -Reviewed labs from 04/22 -Continue with current antibiotics -Next labs due: 04/29 -ID appt: 05/01 documented in this encounter [...] watcher auto flagging 07/01/2013 07/01/201310/03 4:34 PM INVENTORY CONTROL ANALYST VRE 04/09/2021 04/09/2021 01/06/2022 4:00 AM INVENTORY CONTROL ANALYST documented as of this encounter Care Teams Cement Or Concrete Finishing Supervisor Relationship Specialty Start Date End Date Saw Louie MD [facility] [place] [address] PCP - General 03/31/21 07/13/22 documented as of this encounter
--- OUTSIDE RECORDS SUMMARY | 2024-11-11 02:11 | XMS_ITS | Encounter Summary ---
Author Organization [facility] Address [address] [place] [address] Phone Care Team Providers Care Core Sticker Name Role Phone Saw Louie MD Primary Care Provider [phone] Reason for Visit * Reason Onset Date Comments OPAT 06/25/2021 Encounter Details Date Type Department Care Team (Late st Contact Info) Description 06/25/2021 Telephone [facility] Infectious Diseases [address] [place] [phone] Kasia Soriano OPAT Social History Tobacco Use Types Packs/Day [...] on file Legal Sex Male 5:38 AM CASE MANAGEMENT MANAGER Gender Identity Male 05/21/2022 3:19 PM CDT Sexual Orientation Straight 05/21/2022 3: 19 PM CDT documented as of this encounter Miscellaneous Notes * Telephone Encounter - Kasia Soriano - 06/25/2021 3:34 PM CDT Called facility and no labs have been done since 06/10. RN will get a CBC, CMP, and CK weekly documented in this encounter Plan of Treatment Not on file documented as of this encounter Visit Diagnoses Not on filedocumented in this encounter Additional Health Concerns Infection Onset Date Last Indicated Resolved Time MRSA Comment: 03/31/2021 IP Review - 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 Not a candidate for isolation discontinuation at this time. Ananda Murphy generated from [facility] 02/01/2012 02/01/2012 06/25/2021 5:00 AM C DT MDR gram neg/ESBL Comment:Germ watcher auto flagging 07/01/2013 07/01/201310/03 4:34 PM CASE MANAGEMENT MANAGER VRE 04/09/2021 04/09/2021 01/06/2022 4:00 AM CASE MANAGEMENT MANAGER documented as of this encounter Care Teams Core Sticker Relationship Specialty Start Date End Date Saw Louie MD [address] [place] [place] [address] PCP - General 03/31/21 07/13/22 documented as of this encounter
--- OUTSIDE RECORDS SUMMARY | 2024-11-11 02:11 | XMS_ITS | Encounter Summary ---
Author Organization [facility] Healthcare Address [address] [place] [address] Care Team Providers Care Fire Chief Deputy Name Role Phone Saw Louie MD Primary Care Provider Reason for Visit * Reason Comments Abdominal Pain Encounter Details Date Type Department Care Team (Latest Contact Info) Description 05/22/2021 6:00 AM CDT - 05/28/2021 1:00 AM CDT Hospital Encounter [facility] [address] [place] [address] Kailyn Crews MD PhD [address] [place] [address] Daniel Llanes MD [address] [place] [address] Peter Mcgrath MD [address] [place] [address] Rlaph Parker MD [address] [place] [address] Trino Baird MD [address] [place] [address] Abdominal pain (Primary Dx); Paraspinal abscess (CMS/HCC) (HCC); Intra-abdominal abscess (CMS/HCC) (HCC) Discharge Disposition: Discharge to SNF Social History Tobacco Use Types Packs/Day Years Used Date Smoking Tobacco: Former AUDIT-C Answer Date Recorded Q1: How often do you have a drink containing alc ohol? 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 Gender Identity Male 05/21/2022 3:19 PM CDT Sexual Orientation Straight 05/21/2022 3: 19 PM CDT documented as of this encounter Last Filed Vital Signs Vital Sign Reading Time Taken Comments Blood Pressure 151/98 05/27/2021 8:10 PM CDT Pulse 74 05/27/2021 8:10 PM CDT Temperature 36.8 ??C (98.2 ??F) 05/27/2021 8:10 PM CD T Respiratory Rate 18 05/27/2021 8:10 PM CDT Oxygen Saturation 100% 05/27/2021 8:10 PM CDT Inhaled Oxygen Concentration - - Weight 126.4 kg (278 lb 10.6 oz) 2020 10:20 PM CDT Height 165.1 cm (5' 5 ) 05/22/2021 10:2 0 PM CDT Body Mass Index 46.37 05/22/2021 10:20 PM CDT documented in this encounter Discharge Diagnoses Diagnosis Intraspinal abscess and granuloma - INTRASPINAL ABSCESS AND GRANULOMA Pressure ulcer of left buttock, stage 4 (HCC) - PRESSURE ULCER OF LEFT BUTTOCK, STAGE 4 Unspecified severe protein-calorie malnutrition (HCC) - UNSPECIFIED SEVERE PROTEIN-CALORIE MALNUTRITION Other ascites - OTHER ASCITES Resistance to vancomycin - RESISTANCE TO VANCOMYCIN Paraplegia, unspecified (HCC) - PARAPLEGIA, UNSPECIFIED Body mass index (BMI) 45.0-49.9, adult (HCC) - BODY MASS INDEX [BMI] 45.0-49.9, ADULT Osteomyelitis of vertebra, lumbosacral region (HCC) - OSTEOMYELITIS OF VERTEBRA, LUMBOSACRAL REGION Extradural and subdural abscess, unspecified - EXTRADURAL AND SUBDURAL ABSCESS, UNSPECIFIED Discitis, unspecified, lumbosacral region - DISCITIS, UNSPECIFIED, LUMBOSACRAL REGION Essential (primary) hypertension - ESSENTIAL (PRIMARY) HYPERTENSION Unspecified essential hypertension Neuromuscular dysfunction of bladder, unspecified - NEUROMUSCULAR DYSFUNCTION OF BLADDER, UNSPECIFIED Personal history of urinary (tract) infections - PERSONAL HISTORY OF URINARY (TRACT) INFECTIONS Anemia, unspecified - ANEMIA, UNSPECIFIED Pressure ulcer of sacral region, stage 2 (HCC) - PRESSURE ULCER OF SACRAL REGION, STAGE 2 Personal history of urinary calculi - PERSONAL HISTORY OF URINARY CALCULI Other nursing home (current) drug therapy - OTHER SENIOR LIVING (CURRENT) DRUG THERAPY Family history of ischemic heart disease and other diseases of the circulatory system - FAMILY HISTORY OF ISCHEMIC HEART DISEASE AND OTHER DISEASES OF THE CIRCULATORY SYSTEM Personal history of other infectious and parasitic diseases - PERSONAL HISTORY OF OTHER INFECTIOUS AND PARASITIC DISEASES Personal history of nicotine dependence - PERSONAL HISTORY OF NICOTINE DEPENDENCE Acquired absence of right leg below knee (CMS/HCC) (HCC) - ACQUIRED ABSENCE OF RIGHT LEG BELOW KNEE Acquired absence of left leg below knee (CMS/HCC) (HCC) - ACQUIRED ABSENCE OF LEFT LEG BELOW KNEE Contact with and (suspected) exposure to covid-19 - CONTACT WITH AND (SUSPECTED) EXPOSURE TO COVID-19 Other constipation - OTHER CONSTIPATION Diarrhea, unspecified - DIARRHEA, UNSPECIFIED documented in this encounter Discharge Summaries * Jenny Arias MD - 05/27/2021 1:13 PM CDT Inpatient Discharge Summary BRIEF OVERVIEW Admitting Provider: Peter Mcgrath MD Discharge Provider: Trino Baird MD Primary Care Physician at Discharge: Saw Louie MD [phone] Admission Date: 05/22/2021 Discharge Date: 05/27/2021 Admission Location: [facility] Problems/Diagnoses: Principal Problem: Abdominal pain Active Problems: Severe malnutrition (CMS/HCC) Resolved Problems: No resolved hospital problems. DETAILS OF HOSPITAL STAY Presenting Problem/History of Present Illness: 35 y/o M with PMH of T4/T5 paraplegia with bilateral BKA and neurogenic bladder s/p neobladder, HTN, and hx of multiple complicated UTIs (hx of ESBL E.coli UTI), ureteral stones and stones in bladder, pressure injury on L buttock and L thigh who presents to the ED with complaint of abdominal pain, nausea, vomiting, and malaise. On exam, patient still sedated IR procedure, complaining of a 2- day history of??intolerable, 9/10??RLQ pain and also endorses some flank pain. Endorses chills, 1 episodeof emesis this morning, and poor PO intake. Patient denies fevers, CP, SOB, cough, dysuria, constipation. ?? Pt recently admitted on 04/30 at [facility] for cystolithotomy and suprapubic tube placement for largeureteral and bladder stone burden and VRE UTI. Pt also recently admitted to [place] on 03/28 for management of a lumbosacral fluid collection/abscess and complicated UTI. CT and MRI from the previous spitalization indicated destructive processes w/ fluid collection at L5/S1. IR??aspirated the complex spinal fluid collection on 03/31 which??grew??kim- susceptible E coli. Pt was discharged on plan for 6 week course of IV ceftriaxone, which was stopped on admission to OSH and discharged on augmentin. At this time, patient noticed worsening abdominal pain associated with N/V and malaise. ?? In the ED, CBC, CMP, UA, BCx, CRP, ESR, CTAP and were ordered and notable for CT findings of increased size in paracolic fluid collection and new fluid collection from within subcutaneous back tissueto lumbar paraspinal muscles. IR, ID, and ortho spine consulted given these CT findings. Pt given meropenom 2g, vanc 1.75 g, fluids, and dilaudid for pain in the ED. ?? Hospital Course: #L5-S1 discitis/ostemyelitis/L Paracolic and lumbar paraspinal fluid collections or abscess in the context of a neurogenic spine #hx of fluid collection between L5 vertebral body and calf Patient recently admitted 03/2021 for an infected paraspinal fluid collection.This fluid??collectionwas aspirated by IR and its culture was +Ecoli.??Patient was treated with vanc/kaykay from 03/28-04/07.??Patient was then treated with??IV ceftriaxone 2 grams q??24 hours for 6 weeks and then switched toaugmentin BID.??Ortho spine was consulted and felt that surgery for source control would be too morbid for the patient and likely to cause more harm than benefits.??Pt took ceftriaxone on discharge on 04/11 an dit was discontinued during his admission to OSH on 04/30. He was then started on Augmentin on discharge from OSH. Pt was given 2g meropenem and 1.75 g vancomycin in the ED. CTAP also obtainedand significant for interval progression of destructive process at L5-S1, interval increase of fluid collection within the L paracolic gutter, along with new fluid collection within the subcutaneous tissues of back ,superficial to the lumbar spinal muscles. L paracolic gutter collection was aspirated today by IR and drain was also placed over the L paracolic gutter. Neuro spine consulted and given there are no acute neuro changes and patient remains a poor surgical candidate and thus recommend non operative management. L-XR on 05/22 notable for L5-S1 destruction consistent with discitis and OMas seen on CT. Pt started on 6 weeks of meropenem and daptomycin for infection on 05/23. Given that SNF is not able to administer the meropenem q8hrs, ID recommends cefepime 2g IV q12 hrs, flagyl 500 mg PO q8 hrs, daptomycin 550 mg q 24 hrs (end date 07/04/2021) Blood and IR abdominal aspirate cultures NGTD throughout admission. Drain with minimal output throughout admission. Plan: -cefepime 2g IV q12 hrs, flagyl 500 mg PO q8 hrs, daptomycin 550 mg IV q 24 hrs -Pt has PICC in place -check CK q72 hr -follow-up with ID in 2-3 weeks -follow-up with IR for drain removal if patient continues to have minimal drain output ?? #paraplegia #pressure injury buttock and thigh No sensation/motor function from nipples down. Continued home gabapentin 300 mg nightly, flexeril 6mh TID PRN. Pain controlled with tylenol TID, oxy 5 q4 PRN. Held bowel regimen in setting of loose stools. Wound RN consulted for management of pressure injuries ?? #hx of chronic constipation Held bowel regimen and home linzess iso diarrhea ?? #HTN Continued home coreg ?? #Anemia Held home ferrous sulfate iso acute infection Active Issues Requiring Follow-up: Paracolic fluid collection/abscess with drain in place and on antibiotics Test Results Pending at Discharge: Pending Labs Order Current Status COVID-19 Coronavirus RNA Nasopharyngeal In process VRE culture, surveillance Stool Preliminary result Operative Procedures Performed: Drain placement for paracolic fluid collection Discharge Details Physical Exam at Discharge: Discharge Condition: stable Pulse: 69 Resp: 18 BP: 125/72 Temp: 36.9 ??C (98.4 ??F) Weight: 126.4 kg (278 lb 10.6 oz) Pertinent Exam Findings at Discharge: see last note Discharge Disposition: Code Status at Discharge: full code Discharge Instructions: -Continue cefepime 2g IV q12 hrs, flagyl 500 mg PO q8 hrs, daptomycin 550 mg IV q 24 hrs for paracolic and paraspinal fluid collections (05/27-07/04) -check CK q72 hr given patient is on daptomycin for myopathy -follow-up with ID in 2-3 weeks -follow-up with IR for drain removal if patient continues to have minimal drain output Discharge Medications: Current Medications TAKE these medications calcium carbonate 500 mg calcium (200 mg of elemental calcium) chewable tablet Take 2 tablets (1,000 mg total) by mouth 4 (four) times a day as needed for indigestion Commonly known as: TUMS carvediloL 3.125 mg tablet Take 3.125 mg by mouth 2 (two) times a day with meals Commonly known as: COREG cefepime 1 gram injection Inject 10 mL (2 g total) into the muscle as instructed every 12 (twelve) hours Commonly known as: MAXIPIME cyclobenzaprine 5 mg tablet Take 1 tablet (5 mg total) by mouth 3 (three) times a day as needed for muscle spasms Commonly known as: FLEXERIL DAPTOmycin 50 mg/mL injection Infuse 11 mL (550 mg total) into a venous catheter daily For: Abdominal/Pelvic Infection Commonly known as: CUBICIN Start taking on: May 28, 2021 gabapentin 300 mg capsule Take 300 mg [...] 145 mcg daily Commonly known as: LINZESS metroNIDAZOLE 500 mg tablet Take 1 tablet (500 mg total) by mouth 3 (three) times a day Commonly known as: FLAGYL pantoprazole DR 40 [...] by mouth daily Commonly known as: KLOR-CON senna-docusate 8.6-50 mg Take 1 tablet by mouth 2 (two) times a day For: constipation Commonly known as: PERICOLACE Outpatient Follow-Up: Future Appointments Date Time Provider Department Center 06/06/2021 4:15 PM [facility] [id number] [facility] N MRI [facility] Main IMG 06/12/2021 9:40 AM Evette Guevara, FRUIT SHIPPER ID [facility] [address] Inf Dis Cosigned by Trino Baird MD at 05/27/2021 3:48 PM CDT documented in this encounter Discharge Instructions * Discharge Instructions* Jenna Oakley PA - 05/27/2021 3:09 PM CDT Images from the original note were not included. Information for Healthcare Providers Diagnosis: Lumbosacral discitis/osteomyelitis with epidural abscess, paracolic left fluid collection Retained Hardware(Yes/No): No Location: NA Site of Infection(s): Lumbosacral spine Organism(s): Unknown Antibiotics Start Date: 05/22/2021 ?? PMD: Dr. Mcgrath Infectious Disease Team: General 2 Infectious Disease Attending: Dr. Delarosa Medication Recommendations: Drug(s): Meropenem 1g IV q8hrs Duration 6 weeks and Daptomycin 550mg IV every 24 hours Duration 6 weeks Firm Stop (Yes/No): Yes Anticipated Stop Date (note, the following date does not imply an order to stop on that date): 07/02/2021 ?? Labs/Frequency to be Monitored: CBC once a week , CMP once a week and CPK once a week ?? Imaging Required Before Follow Up: NA ALL RESULTS SHOULD BE FAXED TO INFECTIOUS DISEASE CLINIC AT: [phone] PLEASE CALL THE INFECTIOUS DISEASES CLINIC WITH ANY QUESTIONS AT: [phone] Leaving the Hospital on IV Antibiotics Information for Patients and Families Infectious Diseases Because of your infection, you must be treated with antibiotics by vein (IV). Timing is important! You should receive antibiotics on a regular schedule and not skip doses. This will give your body enough antibiotic to fight your infection. Finishing is important! You must finish all antibiotics unless told otherwise by your doctor. Taking all of your antibiotics will help get rid of your infection and prevent resistance to antibiotics. What to expect Labs: A nurse will draw your blood about 1-2 times each week. Labs help us monitor your infection and watch out for antibiotic side effects. Telephone calls: You will be receiving lots of phone calls! People who will need to contact you include the infectious disease clinic, home health nurses, home infusion team (antibiotic providers), pharmacists, and doctors. ??? Please make sure we have a working phone number for you so you can receive these calls that areimportant for your health ??? Please make sure your voicemail is set up AND has space for us to leave a message (just in casewe miss you!) Catheter and Wound care ??? Always wash hands with antibacterial soap and use alcohol-based hand regional planner before touching your catheter or changing wound dressings. ??? When drying hands, only use a clean paper towel. ??? Don???t forget to scrub the ???hub?? (tip of your catheter)! Do this with an alcohol wipe before each use. Scrub for 30 seconds (minimum) and allow to dry without blowing on it or waving your hand across it. ??? Refer to your home care service???s instructions for taking care of your IV line and hooking upyour antibiotics. Follow-up Appointment Keeping your follow-up appointment is very important! Below are things that may happen or be decided at your infectious diseases clinic appointment. ??? Look at the infection site and IV to look for problems ??? Determine how long you need to be on IV antibiotics ??? Prescribe oral (pill) antibiotics after finishing IV antibiotics if needed ??? Depending on how you are doing, we may order additional blood work or imaging tests to evaluateyour infection ??? Arrange for your IV line to be removed when the IV antibiotics are completed Questions or Concerns?? Below are reasons to call the Infectious Diseases Clinic RIGHT AWAY! 1. Watery diarrhea more than 3 times in 24 hours. 2. Nausea, vomiting, and/or belly pain 3. Rash and/or itching 4. Chills 5. Drenching night sweats 6. Fever >100.3 7. Increasing redness and/or drainage from a wound 8. Confusion or personality changes 9. Antibiotic catheter problems. Based on your symptoms, we may be able to help you over the phone or have your home health nurse help you. In some cases, you may need to go to the Emergency Room. Contact Infectious Diseases Clinic: Toll-free: [phone] Hospital ID Doctor: Dr. Washington Roac [facility] [address] [place] [address], [address] [place] [address] Patient parking available north of [facility] Caring for your Percutaneous Abscess Drain Call Interventional Radiology at during regular business hours (Wednesday-Wednesday 7:30 AM-4:00 PM) if you have any of the following: A new fever that is higher than 101.1??F (38.4??C) Swelling or redness at the drainage catheter Increased drainage around the drainage catheter The tube is pulled out or pulled back Increased pain at or near the tube site Signs that the tube is clogged (see below) Bloody drainage in the drainage bag No drainage in the tube for the past 24 hours Note: During nights and weekends, please call and ask for the Interventional Radiologist on-call to be paged. Caring for your drainage catheter at home: 1. Protect the tube from being pulled out or dislodged. 2. Position the tube or bag by keeping it taped securely below the insertion site for best drainageand comfort. 3. Empty the bag when it is half-full or every day (whichever happens first). Record the output on the log sheet each time you empty the bag. 4. Wash your hands before and after any contact with the tube or bag. 5. Keep the dressing around the tube insertion site as dry as possible. Do not swim, go in a hot tub or take a tub bath while the tube is in place. 6. Change the dressing around your drainage catheter twice a week or when it becomes soiled. Signs that your catheter is clogged: 1. Sudden decrease in the amount of drainage. For example, the tube has drained 50 cc each of the last 4 days but nothing has drained today. 2. Leakage at the skin around the tube. This occurs because the fluid that would normally come out through the catheter is now draining at the skin around the catheter. 3. Decrease in drainage along with skin redness, swelling or increased tenderness at the tube site.This occurs because the fluid that would normally come out through the catheter is building up under the skin. Flushing your drainage catheter: Some patients will need to flush their tube on a regular basis to make sure it stays open. For other patients, we may instruct you to flush your tube if we believe ithas become clogged. 1. Use an alcohol prep pad to clean the connection between the drainage catheter and bag. 2. Remove the drainage bag. 3. Attach a 10 ml syringe of sterile normal saline to the hub of the drainage catheter. Inject 10 ml saline into the tube twice a day. You usually do not need to pull the fluid back into the syringe. 4. Reconnect the drainage bag. Please track the amount of drainage from your catheter using the table and bring this sheet to yourfollowup appointment with us. That appointment is scheduled for Date: 06/02/2021 Time: 8AM (arrive 1 hour prior) Location: [facility] 3rd floor InterventionalRadiology Date Time Amount Color/Description Comments This handout is for your general information only. The lists above are guidelines and do not include all symptoms or conditions. This document is not a substitute for being seen by a doctor. Always call your doctor if you have any questions or problems. If your condition gets worse, call your doctor or go to the emergency room. documented in this encounter Medications at Time [...] mouth 2 (two) times a day 04/11/2021 metroNIDAZOLE (FLAGYL) 500 mg tablet Take 1 tablet (500 mg total) by mouth 3 (three) times a day 114 tablet 05/27/2021 1 potassium chloride ER (KLOR-CON) 20 mEq CR tablet Take 2 tablets (40 mEq total) by mouth daily 60 tablet 11 04/12/2021 2 calcium carbonate (TUMS) 500 mg calcium (200 mg of elemental calcium) chewable tablet Take 2 tablets (1,000 mg total) by mouth 4 (four) times a day as needed for indigestion 04/11/2021 1 carvediloL (COREG) 3.125 mg tablet Take 3.125 mg by mouth 2 (two) times a day with meals 1 cefepime (MAXIPIME) 1 gram injection Infuse 10 mL (2 g total) into a venous catheter every 12 (twelve) hours 760 mL 05/27/2021 1 DAPTOmycin (CUBICIN) 50 mg/mL injectionIndicat ions:Abdominal/P elvic Infection Infuse 11 mL (550 mg total) into a venous catheter daily 407 mL 05/28/2021 1 heparin 10 unit/mL syringe Administer 5 mL [...] Refills Last Filled Start Date End Date cefepime (MAXIPIME) 1 gram injection Infuse 10 mL (2 g total) into a venous catheter every 12 (twelve) hours 760 mL 05/27/2021 1 cefepime (MAXIPIME) 1 gram injection Inject 10 mL (2 g total) into the muscle as instructed every 12 (twelve) hours 760 mL 05/27/2021 1 metroNIDAZOLE (FLAGYL) 500 mg tablet Take 1 tablet (500 mg total) by mouth 3 (three) times a day 114 tablet 05/27/2021 1 DAPTOmycin (CUBICIN) 50 mg/mL injectionIndicatio ns:Abdominal/Pelvi c Infection Infuse 11 mL (550 mg total) into a venous catheter daily 407 mL 05/28/2021 1 documented in this encounter Discharge Disposition Disposition Code Departure Means [facility] documented in this encounter Progress Notes * Luciano Orozco, PARAM - 05/27/2021 1:58 PM CDT 05/27/21 2346 Discharge Summary Chart reviewed For Medical Necessity Does patient have a planned readmission to hospital planned? No Discharge Disposition [facility] in [facility] Account Services Analyst, Medicaid Specify Facility [facility] Contact Number [phone](fax) Discharge Records Chart Copied Equipment/Provider Needs No Home Needs Identified Discharge Additional Assistance Does the patient need discharge transport arranged? Yes Has discharge transport been arranged? Yes Details of Transportation [facility] (trip# [id number]) What day is the transport expected? 05/27/21 What time is the transport expected? 1800 Discharge Transportation Communication Mode of transport has [...] at this time. [facility] [place] . CM spoke with the patient/family, admissions, medical team and RN in regards to discharge planning and all are agreeable to discharge. Post-acute care transfer packet completed and will be sent with the patient. RN provided with report number to nurses station. Mode of transport has been discussed with the patient/family, MD, nursing staff. All are agreeable to plan and understand their responsibilities to ensure the safe transfer. Patient/family informed patient may require ambulance transport. architectural practice manager informed patient/family that even if the patient???s insurance benefit includes ambulance transport, it may not cover thefull cost of the transportation. The patient may be responsible for any out of pocket cost, including mileage beyond the nearest appropriate facility. Patient/family voiced understanding. Luciano Orozco RN * Radha Hamlin, RD - 05/27/2021 1:46 PM CDT Nutrition Assessment Reason for Assessment: Follow Up Encounter Date: 05/27/21 1:46 PM LOS is 5 days. HPI: 35 y/o M with PMH of??T4/T5??paraplegia with bilateral BKA and??neurogenic bladder s/p??neobladder,HTN, and hx of multiple complicated UTIs (hx of ESBL E.coli UTI), ureteral stones and stones in bladder, pressure injury on L buttock and L thigh who presents to the ED with complaint of abdominal pain, nausea, vomiting, and malaise. On exam, patient??still sedated IR procedure, complaining??of a 2-day history of??intolerable, 9/10??RLQ pain and also endorses some flank pain.??Endorses??chills, ??1 episode of emesis this morning, and poor PO intake. Patient denies fevers, CP, SOB,??cough, dysuria, constipation. Objective History reviewed. No pertinent past medical history. Past Surgical History: Procedure Laterality Date ??? ASPIRATION OF ABSCESS HEMATOMA CYST N/A 03/31/2021 ??? IMAGE GUIDED DRAINAGE PERITONEAL OR RETROPERITONEAL FLUID COLLECTION N/A 05/22/2021 Social History Tobacco Use ??? Smoking status: Former Smoker Substance Use Topics ??? Alcohol use: Not on file Family History Problem Relation Age of Onset ??? Hypertension Other Family history of hypertension - (Added by TW Conv) ??? Cancer Other Family history of malignant neoplasm - (Added by TW Conv) Anthropometrics: Wt Readings from Last 3 Encounters: 05/22/21 126.4 kg (278 lb 10.6 oz) 05/22/21 124.7 kg (275 lb) 05/13/21 124.7 kg (275 lb) Anthropometrics Weight: 126.4 kg (278 lb 10.6 oz) Admission Weight : 126.4 kg Weight Change: 1.66 kg (3.66 lbs) IBW/kg (Calculated) : 61.7 kg Height: 165.1 cm (5' 5 ) Weight in (lb) to have BMI = 25: 149.9 BMI (Calculated): 46.4 Nutrition Needs Calculations: Calculated Energy Needs Using Equations Weight: 126.4 kg (278 lb 10.6 oz) Height: 165.1 cm (5' 5 ) Vital Signs: BP: 125/72 Temp: 36.9 ??C (98.4 ??F) Pulse: 69 Resp: 18 SpO2: 100 % Medications: Scheduled Meds: acetaminophen, 650 mg, oral, TID carvediloL, 3.125 mg, oral, BID with meals (bkfst, dinner) DAPTOmycin, 550 mg, intravenous, Q24H MARYANN enoxaparin, 40 mg, subcutaneous, Daily-2100 [Held by Provider] ferrous sulfate, 65 mg of elemental iron, oral, BID with meals (bkfst, lunch) gabapentin, 300 mg, oral, Nightly [Held by Provider] linaCLOtide, 145 mcg, oral, Daily meropenem, 1,000 mg, intravenous, Q8H MARYANN pantoprazole DR, 40 mg, oral, BID AC (bkfst, dinner) potassium chloride ER, 40 mEq, oral, Daily sodium chloride 0.9%, 0.5-20 mL, intra-catheter, Q8H MARYANN sodium chloride 0.9%, 5-10 mL, intra-catheter, Q12H MARYANN Continuous Infusions: PRN Meds: calcium carbonate ??? cyclobenzaprine ??? ondansetron ODT ??? oxyCODONE ??? sodium chloride 0.9% Lab Review: Sodium Date Value Ref Range Status 05/26/2021 140 135 - 145 mmol/L Final Potassium, pl Date Value Ref Range Status 05/26/2021 4.6 3.3 - 4.9 mmol/L Final BUN Date Value Ref Range Status 05/26/2021 11 8 - 25 mg/dL Final Creatinine Date Value Ref Range Status 05/26/2021 0.71 (L) 0.80 - 1.30 mg/dL Final Calcium Date Value Ref Range Status 05/26/2021 8.6 8.5 - 10.3 mg/dL Final Lab Results Component Value Date HGBA1C 5.1 01/10/2019 HDL 32 (L) 01/12/2019 LDLCALC 60 01/12/2019 CHOL 110 01/12/2019 TRIG 90 01/12/2019 Nursing Assessment: Intake/Output Summary (Last 24 hours) at 05/27/2021 1346 Last data filed at 05/27/2021 0625 Gross per 24 hour Intake 120 ml Output 1375 ml Net -1255 ml Gastrointestinal Gastrointestinal (WDL): Exceptions to WDL Abdomen Inspection: Soft, Rounded Bowel Sounds (All Quadrants): Active Palpation: Soft, Tenderness Last BM Date: 05/26/21 Passing Flatus: Yes GI Symptoms: None Nausea Precipitating Factors: Medication Relieved by: Antiemetic Gastrointestinal Additional Assessments: No Last BM Date: 05/26/21 Mike Scale Score: 15 Skin Integrity: Other (Comment) (see LDA) Type of Wound (LDA): Pressure ulcer/Pressure Injury, Wound Pressure Ulcer/Pressure Injury 03/28/21 Posterior;Upper;Left Thigh Stage 2 pressure ulcer, wound team assessed 05/23/21 will not follow-Pressure Ulcer Status: (JODI) Pressure Ulcer/Pressure Injury 03/28/21 Left Buttocks wound team assessed 05/23/21 will follow weekly -Pressure Ulcer Status: (JODI) Pressure Ulcer/Pressure Injury 03/28/21 Mid-line Coccyx wound team assessed 05/23/21 will not follow-Pressure Ulcer Status: Evolving Pressure Ulcer/Pressure Injury 05/22/21 Left-Pressure Ulcer Status: (JODI) Pressure Ulcer/Pressure Injury 05/22/21 Anterior;Left;Medial Knee-Pressure Ulcer Status: Healed Pressure Ulcer/Pressure Injury 05/22/21 Right;Lateral;Anterior Knee-Pressure Ulcer Status: Healed Dietary Orders (From admission, onward) Start Ordered 05/23/21 1500 Oral Nutrition Supplements Select Supplement: Ensure - Straw All Meals Question: Select Supplement: Answer: Ensure - Straw 05/23/21 1459 05/23/21 1500 Oral Nutrition Supplements Select Supplement: Rylee - Fruit Punch With Lunch and Dinner Question: Select Supplement: Answer: Rylee - Fruit Punch 05/23/21 1459 05/22/21 2312 Adult Diet Regular Diet effective now Question: ([facility]) Diet type Answer: Regular 05/22/21 2311 Impression: 05/27: Pt reports pretty good appetite, no N/V, states he has a little diarrhea. Pt reports he likesensure and rylee. 05/23: RD student visited pt for MST of 4. Since February, patient reported unintentional weight loss, lack of appetite, and poor intake. Current weight is 278 lb, a decrease of 8.8% from reported weightof 305 lb in January. Current weight is down from 278 lb noted on 04/08/21. UBW was stated to be 300 lb. Beginning one month prior to admission, pt also reported frequent n/v. Since admission, pt reported no n/v and improved appetite, eating 100% of his breakfast. Last remembered BM was yesterday. Uponvisual inspection, pt appeared adequately nourished with on obvious signs of wasting. Pt currently has 6 stage 2 pressures injuries and one evolving wound. Based on weight loss and poor intake, pt meets ASPEN criteria for severe malnutrition. ASPEN Malnutrition Assessment: ?? Chronic Illness/Injury Severe Energy Intake: < 75% energy intake compared to estimated energy needs > (or equal to) 1 month Weight Loss: > 7.5% in 3 months Patient Meets Criteria for Severe Malnutrition: Yes ?? Present on admission. Wt Readings from Last 15 Encounters: 05/22/21 126.4 kg (278 lb 10.6 oz) 05/22/21 124.7 kg (275 lb) 05/13/21 124.7 kg (275 lb) 04/08/21 130.1 kg (286 lb 12.8 oz) 01/10/19 (!) 148.5 kg (327 lb 6.1 oz) 12/24/17 (!) 149.7 kg (330 lb) 08/23/17 (!) 145.1 kg (320 lb) NUTRITION DIAGNOSIS Nutrition Diagnosis 1: Inadequate oral intake Related to: Loss of appetite Evidenced by: Patient interview, Weight loss INTERVENTION Continue ensure tid and rylee bid. Continue to follow po intakes and Lab values. Follow plan of care. GOALS / MONITORING: Goals: Prevent further unintended weight loss during admission, Adequate nutrition to meet estimated needs by next assessment, Tolerance of medical food supplement by next assessment Interventions: Encouragement, Medical food supplement Monitoring and Evaluation: Appetite, Labs, Plan of care, PO intake, Stool patterns, Supplement tolerance, Weight changes Radha Hamlin MS, RD, LD [phone] * Jenny Arias MD - 05/27/2021 12:11 PM CDT Internal Medicine Daily Progress Note Interval History: no acute events overnight Minimal drain output Will appreciate final ID recs. PICC placed for IV abx at [facility] Objective Vital Signs: 24hr Min/Max: Temp Min: 36.7 ??C (98.1 ??F) Max: 36.9 ??C (98.4 ??F) Pulse Min: 57 Max: 99 BP Min: 96/52 Max: 153/102 Resp Min: 18 Max: 18 SpO2 Min: 100 % Max: 100 % Most Recent: Vitals: 05/27/21 0810 BP: 124/72 Pulse: 86 Resp: 18 Temp: SpO2: 100% Intake/Output: Intake/Output Summary (Last 24 hours) at 05/27/2021 1211 Last data filed at 05/27/2021 0625 Gross per 24 hour Intake 120 ml Output 1375 ml Net -1255 ml Physical Exam: Constitutional:??Drowsy, obese, lying in bed HEENT: MMM, hearing grossly intact, normal conjunctiva, no scleral icterus, EOMI Cardiovascular: regular rate and rhythm, normal S1/S2, no murmurs/rubs/gallops. JVP not elevated, no peripheral edema ?? Pulmonary: Clear to auscultation bilaterally, normal work of breathing, no wheezing/rales/rhonchi Abdominal: Soft, non-distended, bowel sounds present.??Mild diffuse tenderness throughout the RLQ. IR drain in place on the L side with minimal output.? Extremities:??Bilateral BKA with stumps well healed and clean.??Buttock/thigh??wound clean and nonpurulent Skin:??Warm and dry, cap refill <2 seconds. Neurological:??AAO x3, CN grossly intact, no focal deficits appreciated ?? Psychiatric: Mood and affect normal?? Current Medications: Current Facility-Administered Medications: ??? acetaminophen (TYLENOL) tablet 650 mg, 650 mg, oral, TID, 650 mg at 05/27/21 0811 ??? calcium carbonate (TUMS) chewable tablet 1,000 mg, 1,000 mg, oral, QID PRN ??? carvediloL (COREG) tablet 3.125 mg, 3.125 mg, oral, BID with meals (bkfst, dinner), 3.125 mg at05/27/21 0811 ??? cyclobenzaprine (FLEXERIL) tablet 5 mg, 5 mg, oral, TID PRN, 5 mg at 05/26/21 1737 ??? DAPTOmycin (CUBICIN) 50 mg/mL sodium chloride 0.9% 550 mg, 550 mg, intravenous, Q24H MARYANN, 550 mg at 05/27/21 0810 ??? enoxaparin (LOVENOX) syringe 40 mg, 40 mg, subcutaneous, Daily-2100, 40 mg at 05/26/212019 ??? [Held by Provider] ferrous sulfate tablet 325 mg, 65 mg of elemental iron, oral, BID with meals(bkfst, lunch), 325 mg at 05/24/21 1248 ??? gabapentin (NEURONTIN) capsule 300 mg, 300 mg, oral, Nightly, 300 mg at 05/26/212020 ??? [Held by Provider] linaCLOtide (LINZESS) capsule 145 mcg, 145 mcg, oral, Daily, 145 mcg at 05/24/21 0802 ??? meropenem (MERREM) 1,000 mg/110 mL in sodium chloride 0.9% (premix) 1,000 mg, 1,000 mg, intravenous, Q8H MARYANN, Last Rate: 220 mL/hr at 05/27/21 0810, 1,000 mg at 05/27/21 0810 ??? ondansetron ODT (ZOFRAN-ODT) disintegrating tablet 4 mg, 4 mg, oral, Q6H PRN, 4 mg at 05/27/21 0811 ??? oxyCODONE (ROXICODONE) tablet 5 mg, 5 mg, oral, Q4H PRN, 5 mg at 05/26/21 2326 ??? pantoprazole DR (PROTONIX) extended release tablet 40 mg, 40 mg, oral, BID AC (bkfst, dinner), 40 mg at 05/27/21 0811 ??? potassium chloride ER (KLOR-CON) extended release tablet 40 mEq, 40 mEq, oral, Daily, 40 mEq at05/27/21 0811 ??? sodium chloride 0.9% flush 0.5-20 mL, 0.5-20 mL, intra-catheter, Q8H MARYANN, 10 mL at 05/27/21 0616 ??? sodium chloride 0.9% flush 5-10 mL, 5-10 mL, intra-catheter, Q12H MARYANN, 10 mL at 05/27/21 0812 ??? sodium chloride 0.9% flush 5-20 mL, 5-20 mL, intra-catheter, PRN Lab/Radiology/Diagnostic Review: Labs: Recent Labs Lab Units 05/26/21202705/25/21202405/25/21202405/25/21 0155 05/25/21 0155 05/23/215 05/23/21212405/23/21 0831 05/23/21 0831 HEMOGLOBIN g/dL 8.9* < > 8.5* < > 8.8* < > 8.2* < > 8.3* HEMATOCRIT % 28.6* < > 27.9* < > 28.1* < > 26.5* < > 26.6* WBC K/cumm 7.1 < > 7.1 < > 7.9 < > 8.0 < > 6.6 PLATELETS K/cumm 327 -- 298 -- 310 -- 292 -- 310 < > = values in this interval not displayed. Recent Labs Lab Units 05/26/212027 SODIUM mmol/L 140 POTASSIUM PLASMA mmol/L 4.6 CHLORIDE mmol/L 104 CO2 mmol/L 24 ANIONGAP mmol/L 12 BUN SERUM mg/dL 11 CREATININE mg/dL 0.71* CALCIUM mg/dL 8.6 Recent Labs Lab Units 05/22/21 0800 ALBUMIN g/dL 4.2 ALK PHOS Units/L 100 AST Units/L 50 ALT Units/L 69* BILIRUBIN TOTAL mg/dL 0.6 Cultures: Lab Results Component Value Date MICROBIOLOGY Preliminary Report: Culture results pending. 05/23/2021 MICROBIOLOGY Final Report: No growth 05/22/2021 MICROBIOLOGY Final Report: No growth 05/22/2021 MICROBIOLOGY Final Report: No growth 05/22/2021 MICROBIOLOGY (.) 04/09/2021 Final Report: Enterococcus species, vancomycin resistant Assessment/Plan 35 y.o. 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 IR drained patients paracolic fluid collection. Pt on daptomycin and meropenem for broadcoverage of intraabdominal and paraspinal infections. ? #L5-S1 discitis/ostemyelitis/L Paracolic and lumbar paraspinal fluid collections or abscess in the context of a neurogenic spine #hx of fluid collection between L5 vertebral body and calf Patient recently admitted 03/2021 for an infected paraspinal fluid collection.This fluid??collectionwas aspirated by IR and its culture was +Ecoli.??Patient was treated with vanc/kaykay from 03/28-04/07.??Patient was then treated with??IV ceftriaxone 2 grams q??24 hours for 6 weeks and then switched toaugmentin BID.??Ortho spine was consulted and felt that surgery for source control would be too morbid for the patient and likely to cause more harm than benefits.??Pt took ceftriaxone on discharge on 04/11 an dit was discontinued during his admission to OSH on 04/30. He was then started on Augmentin on discharge from OSH. Pt was given 2g meropenem and 1.75 g vancomycin in the ED. CTAP also obtainedand significant for interval progression of destructive process at L5-S1, interval increase of fluid collection within the L paracolic gutter, along with new fluid collection within the subcutaneous tissues of back ,superficial to the lumbar spinal muscles. L paracolic gutter collection was aspirated today by IR and drain was also placed over the L paracolic gutter. Neuro spine consulted and given there are no acute neuro changes and patient remains a poor surgical candidate and thus recommend non operative management. L-XR on 05/22 notable for L5-S1 destruction consistent with discitis and OMas seen on CT. Pt started on meropenem and daptomycin for infection. Given that SNF is not able to administer the meropenem q8hrs, ID recommends cefepime 2g IV q12 hrs, flagyl 500 mg PO q8 hrs, daptomycin 550 mg q 24 hrs Plan: -blood and IR aspirate cultures negative to date -ID consulted, recommend cefepime 2g IV q12 hrs, flagyl 500 mg PO q8 hrs, daptomycin 550 mg q 24 hrs -Pt has PICC in place -check CK q72 hr ?? #paraplegia #pressure injury buttock and thigh No sensation/motor function from nipples down -continue home gabapentin 300 mg nightly, flexeril 6 mh TID PRN (home) -pain control with tylenol TID, oxy 5 q4 PRN. Holding bowel regimen in setting of loose stools -appreciate wound RN recs ?? #hx of chronic constipation -currently holding bowel regimen -holding home linzess iso diarrhea ?? #HTN -continue home coreg ?? #Anemia -holding home ferrous sulfate iso acute infection Jenny Arias MD Internal Medicine PGY-1 Cosigned by Trino Baird MD at 05/27/2021 7:29 PM CDT Associated attestation - Trino Baird MD - 05/27/2021 7:29 PM CDT I have seen and examined the patient on 05/27/21. I agree with the findings and plan of care as documented in the resident's/fellow's note.. * Jax Pablo - 05/26/2021 3:25 PM CDT Spiritual Care Note [facility] [phone] 05/26/21 1400 Time Spent Start Time 1400 Stop Time 1430 Time Calculation (min) 30 min Clinical Encounter Type Visited With Patient Response Type Routine visit;Continuing visit Routine Visit Follow-up Reason for visit Support;Patient Spiritual Care Encounter Outcomes and Interventions Outcomes Preserve dignity and respect;Demonstrating care and respect Interventions Offer emotional support;Offer spiritual/scientology support;Active listening * Jenny Arias MD - 05/26/2021 8:20 AM CDT Internal Medicine Daily Progress Note Interval History: no acute events overnight Minimal drain output Will appreciate final ID recs. PICC placed for IV abx at home Will follow-up with IR to see if they would like to pull out drain given minimal drain output Objective Vital Signs: 24hr Min/Max: Temp Min: 36.6 ??C (97.9 ??F) Max: 36.8 ??C (98.2 ??F) Pulse Min: 60 Max: 100 BP Min: 117/75 Max: 154/92 Resp Min: 18 Max: 18 SpO2 Min: 100 % Max: 100 % Most Recent: Vitals: 05/26/21 0735 BP: 154/92 Pulse: 74 Resp: 18 Temp: 36.7 ??C (98.1 ??F) SpO2: 100% Intake/Output: Intake/Output Summary (Last 24 hours) at 05/26/2021 0821 Last data filed at 05/26/2021 0655 Gross per 24 hour Intake 150 ml Output 1447 ml Net -1297 ml Physical Exam: Constitutional:??Drowsy, obese, lying in bed HEENT: MMM, hearing grossly intact, normal conjunctiva, no scleral icterus, EOMI Cardiovascular: regular rate and rhythm, normal S1/S2, no murmurs/rubs/gallops. JVP not elevated, no peripheral edema ?? Pulmonary: Clear to auscultation bilaterally, normal work of breathing, no wheezing/rales/rhonchi Abdominal: Soft, non-distended, bowel sounds present.??Mild diffuse tenderness throughout the RLQ. IR drain in place on the L side with minimal output.? Extremities:??Bilateral BKA with stumps well healed and clean.??Buttock/thigh??wound clean and nonpurulent Skin:??Warm and dry, cap refill <2 seconds. Neurological:??AAO x3, CN grossly intact, no focal deficits appreciated ?? Psychiatric: Mood and affect normal?? Current Medications: Current Facility-Administered Medications: ??? acetaminophen (TYLENOL) tablet 650 mg, 650 mg, oral, TID, 650 mg at 05/25/21 2017 ??? calcium carbonate (TUMS) chewable tablet 1,000 mg, 1,000 mg, oral, QID PRN ??? carvediloL (COREG) tablet 3.125 mg, 3.125 mg, oral, BID with meals (bkfst, dinner), 3.125 mg at05/26/21 0735 ??? cyclobenzaprine (FLEXERIL) tablet 5 mg, 5 mg, oral, TID PRN ??? DAPTOmycin (CUBICIN) 50 mg/mL sodium chloride 0.9% 550 mg, 550 mg, intravenous, Q24H MARYANN, 550 mg at 05/25/21 0743 ??? enoxaparin (LOVENOX) syringe 40 mg, 40 mg, subcutaneous, Daily-2100, 40 mg at 05/25/212016 ??? [Held by Provider] ferrous sulfate tablet 325 mg, 65 mg of elemental iron, oral, BID with meals(bkfst, lunch), 325 mg at 05/24/21 1248 ??? gabapentin (NEURONTIN) capsule 300 mg, 300 mg, oral, Nightly, 300 mg at 05/25/212016 ??? lidocaine PF (XYLOCAINE) 10 mg/mL (1 %) preservative free injection 10-20 mg, 1-2 mL, subcutaneous, Once ??? [Held by Provider] linaCLOtide (LINZESS) capsule 145 mcg, 145 mcg, oral, Daily, 145 mcg at 05/24/21 0802 ??? meropenem (MERREM) 1,000 mg/110 mL in sodium chloride 0.9% (premix) 1,000 mg, 1,000 mg, intravenous, Q8H MARYANN, Last Rate: 220 mL/hr at 05/26/21 0132, 1,000 mg at 05/26/21 0132 ??? ondansetron ODT (ZOFRAN-ODT) disintegrating tablet 4 mg, 4 mg, oral, Q6H PRN, 4 mg at 05/25/21 1323 ??? oxyCODONE (ROXICODONE) tablet 5 mg, 5 mg, oral, Q4H PRN, 5 mg at 05/26/21 0647 ??? pantoprazole DR (PROTONIX) extended release tablet 40 mg, 40 mg, oral, BID AC (bkfst, dinner), 40 mg at 05/26/21 0735 ??? potassium chloride ER (KLOR-CON) extended release tablet 40 mEq, 40 mEq, oral, Daily, 40 mEq at05/25/21 0742 ??? sodium chloride 0.9% flush 0.5-20 mL, 0.5-20 mL, intra-catheter, Q8H MARYANN, 10 mL at 05/26/21 0648 ??? sodium chloride 0.9% flush 5-10 mL, 5-10 mL, intra-catheter, Q12H MARYANN, 10 mL at 05/25/21 2018 ??? sodium chloride 0.9% flush 5-20 mL, 5-20 mL, intra-catheter, PRN Lab/Radiology/Diagnostic Review: Labs: Recent Labs Lab Units 05/25/21 2025 05/25/21 0155 05/25/21 0155 05/23/21 2125 05/23/21 2125 05/23/21 0831 05/23/21 0831 05/22/21 0800 05/22/21 0800 HEMOGLOBIN g/dL 8.5* < > 8.8* < > 8.2* < > 8.3* < > 10.5* HEMATOCRIT % 27.9* < > 28.1* < > 26.5* < > 26.6* < > 33.7* WBC K/cumm 7.1 < > 7.9 < > 8.0 < > 6.6 < > 8.5 PLATELETS K/cumm 298 -- 310 -- 292 -- 310 -- 389 < > = values in this interval not displayed. Recent Labs Lab Units 05/25/212024 SODIUM mmol/L 140 POTASSIUM PLASMA mmol/L 4.3 CHLORIDE mmol/L 104 CO2 mmol/L 25 ANIONGAP mmol/L 11 BUN SERUM mg/dL 11 CREATININE mg/dL 0.78* CALCIUM mg/dL 8.5 Recent Labs Lab Units 05/22/21 0800 ALBUMIN g/dL 4.2 ALK PHOS Units/L 100 AST Units/L 50 ALT Units/L 69* BILIRUBIN TOTAL mg/dL 0.6 Cultures: Lab Results Component Value Date MICROBIOLOGY Preliminary Report: Culture results pending. 05/23/2021 MICROBIOLOGY Final Report: No growth 05/22/2021 MICROBIOLOGY Preliminary Report: No growth to date. 05/22/2021 MICROBIOLOGY Preliminary Report: No growth to date. 05/22/2021 MICROBIOLOGY (.) 04/09/2021 Final Report: Enterococcus species, vancomycin resistant Assessment/Plan 35 y.o. 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 IR drained patients paracolic fluid collection. Pt on daptomycin and meropenem for broadcoverage of intraabdominal and paraspinal infections. ? #L5-S1 discitis/ostemyelitis/L Paracolic and lumbar paraspinal fluid collections or abscess in the context of a neurogenic spine #hx of fluid collection between L5 vertebral body and calf Patient recently admitted 03/2021 for an infected paraspinal fluid collection.This fluid??collectionwas aspirated by IR and its culture was +Ecoli.??Patient was treated with vanc/kaykay from 03/28-04/07.??Patient was then treated with??IV ceftriaxone 2 grams q??24 hours for 6 weeks and then switched toaugmentin BID.??Ortho spine was consulted and felt that surgery for source control would be too morbid for the patient and likely to cause more harm than benefits.??Pt took ceftriaxone on discharge on 04/11 an dit was discontinued during his admission to OSH on 04/30. He was then started on Augmentin on discharge from OSH. Pt was given 2g meropenem and 1.75 g vancomycin in the ED. CTAP also obtainedand significant for interval progression of destructive process at L5-S1, interval increase of fluid collection within the L paracolic gutter, along with new fluid collection within the subcutaneous tissues of back ,superficial to the lumbar spinal muscles. L paracolic gutter collection was aspirated today by IR and drain was also placed over the L paracolic gutter. Neuro spine consulted and given there are no acute neuro changes and patient remains a poor surgical candidate and thus recommend non operative management. L-XR on 05/22 notable for L5-S1 destruction consistent with discitis and OMas seen on CT. -blood and IR aspirate cultures negative to date -ID consulted and recommend meropenem and daptomycin -check CK q72 hr ?? #paraplegia #pressure injury buttock and thigh No sensation/motor function from nipples down -continue home gabapentin 300 mg nightly, flexeril 6 mh TID PRN (home) -pain control with tylenol TID, oxy 5 q4 PRN. Holding bowel regimen in setting of loose stools -appreciate wound RN recs ?? #hx of chronic constipation -currently holding bowel regimen -holding home linzess iso diarrhea ?? #HTN -continue home coreg ?? #Anemia -holding home ferrous sulfate iso acute infection Jenny Arias MD Internal Medicine PGY-1 Cosigned by Trino Baird MD at 05/26/2021 2:28 PM CDT Associated attestation - Trino Baird MD - 05/26/2021 2:28 PM CDT I have seen and examined the patient on 05/26/21. I agree with the findings and plan of care as documented in the resident's/fellow's note. Min drain output. Potential for removal soon. Tolerating abx. L5-S1 discitis/OM with epidural abscess/L paracolic fluid collection. IR input on drain. Has picc, planning 6wks OPAT with dapto/kaykay. * Vj Salomon MD - 05/26/2021 7:59 AM CDT Images from the original note were not included. Radiology Progress Note Interval History: 35 year old man with paraplegia and bilateral below the knee amputation who presented with abdominal pain. CT demonstrated a left paracolic gutter fluid collection s/p 12F drainage catheter placement 05/22/21. No acute events overnight. Patient has no acute complaints at this time. Exam: Temp: [36.6 ??C (97.9 ??F)-36.8 ??C (98.2 ??F)] Pulse: [60-100] Resp: [18] BP: (117-154)/(75-92) GEN: NAD CV: regular rate Resp: non-labored breathing Abd: LLQ 12F catheter to gravity, NT/ND Hematology Lab History Some values may be hidden. Unless noted otherwise, only the newest values recorded on each date aredisplayed. Labs - Hematology Latest Ref Range 05/13/21 05/22/21 05/23/21 05/25/21 WBC 3.8 - 9.9 K/cumm 12.2 (A) 8.5 8.0 7.1 Total Hb, POC 13.0 - 17.5 g/dL 10.2 (A) 10.5 (A) 8.2 (A) 8.5 (A) Hct 38.9 - 50.3 % 33.2 (A) 33.7 (A) 26.5 (A) 27.9 (A) Plt 150 - 400 K/cumm 481 (A) 389 292 298 Neutrophil abs 1.7 - 6.5 K/cumm 10.3 (A) 6.9 (A) 5.7 4.3 Lymphocytes, abs 0.8 - 3.3 K/cumm 1.5 1.1 1.5 1.6 Some values recorded on this date have been omitted. Some abnormal values recorded on this date have been omitted. (A) Abnormal value Chem/LFT Lab History Some values may be hidden. Unless noted otherwise, only the newest values recorded on each date aredisplayed. Labs-Chem/LFT Latest Ref Range 05/13/21 05/22/21 05/23/21 05/25/21 Sodium 135 - 145 mmol/L 139 141 141 140 Creatinine 0.80 - 1.30 mg/dL 1.08 0.91 1.01 0.78 (A) Bilirubin, total 0.1 - 1.2 mg/dL 0.6 AST 10 - 50 Units/L 50 ALT 7 - 55 Units/L 69 (A) CrCl- Actual Body Weight (Cockcroft-Gault) 165.2 196.1 179 231.8 Some values recorded on this date have been omitted. (A) Abnormal value Comments are available for some flowsheets but are not being displayed. Output by Drain (mL) 05/24/21 07 - 05/24/21 [id number] - 05/25/21 0659 05/25/21 07 - 05/25/21 1859 05/25/21 1900 - 05/26/21 0659 05/26/21 0700 - 05/26/21 0804 Closed/Suction/Open Drain 1 LLQ 12 Fr. 4 -10 24.5 -10 Assessment and Plan: 35 year old man with paraplegia and bilateral below the knee amputation presenting with worsening abdominal pain and CT abd/pelvis demonstrating a left paracolic gutter fluid collection. Status post 12F catheter placement. - cultures NGTD - if output continues to decline, will consider removing drainage catheter - continue to flush 10ml BID - IR will continue to follow I have seen and examined the patient on 05/26/21. I agree with the findings and plan of care as documented in the resident's/fellow's note. Vj Salomon MD * Jenny Arias MD - 05/25/2021 8:13 AM CDT Internal Medicine Daily Progress Note Interval History: no acute events overnight 2 BM with loose stools. Cdiff negative. Minimal drain output Objective Vital Signs: 24hr Min/Max: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 of loose stools -appreciate wound RN recs ?? #hx of chronic constipation -currently holding bowel regimen -holding home linzess iso diarrhea ?? #HTN -continue home coreg ?? #Anemia -holding home ferrous sulfate iso acute infection Jax Daly MD PGY-3, Internal Medicine 2:21 PM 05/24/21 Cosigned by Peter Mcgrath MD at 05/25/2021 10:55 AM CDT Associated attestation - Peter Mcgrath MD - 05/25/2021 10:55 AM CDT The resident/fellow saw and examined the patient, we discussed their findings, and I am in agreement with the plan based on the discussion with the resident/fellow. I did not personally examine the patient. * Jessee Rivera MD - 05/24/2021 10:14 AM CDT Images from the original note were not included. Radiology Progress Note Interval History: 35 year old man with paraplegia and bilateral below the knee amputation presenting with worsening abdominal pain. CT abdomen pelvis demonstrated a left paracolic gutter fluid collection. Status post 12F drainage catheter placement 05/22/21. No acute events overnight. Patient's abdominal pain has improved. Exam: Temp: [36.4 ??C (97.5 ??F)-37.5 ??C (99.5 ??F)] Pulse: [89-115] Resp: [16-18] BP: (112-139)/(52-76) GEN: NAD CV: regular rate Resp: nonlabored breathing Abd: NT/ND, LLQ 12F drainage catheter to gravity Hematology Lab History Some values may be hidden. Unless noted otherwise, only the newest values recorded on each date aredisplayed. Labs - Hematology Latest Ref Range 04/10/21 05/13/21 05/22/21 05/23/21 WBC 3.8 - 9.9 K/cumm 11.0 (A) 12.2 (A) 8.5 8.0 Total Hb, POC 13.0 - 17.5 g/dL 8.9 (A) 10.2 (A) 10.5 (A) 8.2 (A) Hct 38.9 - 50.3 % 27.7 (A) 33.2 (A) 33.7 (A) 26.5 (A) Plt 150 - 400 K/cumm 365 481 (A) 389 292 Neutrophil abs 1.7 - 6.5 K/cumm 8.4 (A) 10.3 (A) 6.9 (A) 5.7 Lymphocytes, abs 0.8 - 3.3 K/cumm 1.6 1.5 1.1 1.5 Some values recorded on this date have been omitted. Some abnormal values recorded on this date have been omitted. (A) Abnormal value Chem/LFT Lab History Some values may be hidden. Unless noted otherwise, only the newest values recorded on each date aredisplayed. Labs-Chem/LFT Latest Ref Range 04/09/21 05/13/21 05/22/21 05/23/21 Sodium 135 - 145 mmol/L 132 (A) 139 141 141 Creatinine 0.80 - 1.30 mg/dL 0.59 (A) 1.08 0.91 1.01 Bilirubin, total 0.1 - 1.2 mg/dL 0.4 0.6 AST 10 - 50 Units/L 49 50 ALT 7 - 55 Units/L 40 69 (A) CrCl- Actual Body Weight (Cockcroft-Gault) 315.4 165.2 196.1 179 Some values recorded on this date have been omitted. (A) Abnormal value Comments are available for some flowsheets but are not being displayed. Output by Drain (mL) 05/22/21 07 - 05/22/21 1859 05/22/211899 - 05/23/21 0659 05/23/21699 - 05/23/21 1859 05/23/21 190 - 05/24/21 0659 05/24/21 07 - 05/24/21 1021 Closed/Suction/Open Drain 1 LLQ 12 Fr. 250 30 15 Assessment and Plan: 35 year old man with paraplegia and bilateral below the knee amputation presenting with worsening abdominal pain and CT abd/pelvis demonstrating a left paracolic gutter fluid collection. Status post 12F catheter placement. - f/u cultures. If no growth at 48 hours, will consider removing drain. - f/u output - continue to flush drain - IR will continue to follow Cosigned by Rio Umana MD at 05/24/2021 1:20 PM CDT * Jax Pablo - 05/23/2021 4:12 PM CDT Spiritual Care Note Chaplain Jax Pablo [phone] 05/23/21 1445 Time Spent Start Time 1445 Stop Time 1530 Time Calculation (min) 45 min Patient Spiritual Assessment Spirituality Assessed Yes Presybeterian Affiliation Taoism Clinical Encounter Type Visited With Patient Response Type Routine visit Routine Visit Introduction Reason for visit Support;Patient Spiritual Care Encounter Referral From Other (Comment) (Nfl Player Initiated) Outcomes and Interventions Outcomes Preserve dignity and respect;Demonstrating care and respect;Sense of peace;Lessen someone's feelings of lonliness Interventions Offer spiritual/scientology support;Offer emotional support;Active listening;Explore cultural values;Explore pascale and values;Prayer * Daysi Lemon RN - 05/23/2021 9:20 AM CDT CM Initial Assessment Interview Note Information Obtained From: (P) Patient (05/23/21917) Admission Source: [facility] [place] Impression: 35 year old male admitted for abdominal pain. Plan Includes: Discharge patient to appropriate level of care when medically stable. CM will continue to follow and assess for discharge needs. Primary Source of Transportation: Does the patient need discharge transport arranged?: Yes (will need ambulance transportation at discharge) (05/23/21917) Health Insurance Coverage: Medicare A&B, Medicaid [place] Prescription Coverage: yes Pharmacy: SNF pharmacy Primary Care Provider: Currently uses SNF MD- patient cannot recall name Prior to Admission: Primary Caregiver: (P) Facility staff Support System: (P) Parent Support system contact info (name, phone, availablity): (P) Julissa Barron (mother) [phone] Home Care Services: (P) No Durable Medical Equipment: (P) Wheelchair Living Arrangements: (P) [facility] Type of Residence: (P) [facility] Does patient wish to return to care facility?: (P) Yes, wishes to return Will the care facility allow the patient to return?: Other (comment) Facility contact name and number:: (P) [facility] [place] Steps in home? : No steps inside or outside (05/22/212219) Potential discharge needs include: Dialysis: Behavioral Health Services: Behavioral Health Services: (P) No (05/23/21917) Patient expects to be Discharged to: (P) [facility] (halfway), (05/23/21917) Additional Information: Patient has been a resident at [facility] for the past month and a half. Patient wishes to return at discharge. [facility] Referral sent for return. Patient's Identified Problem/Goal Problem: Ensure acute medical [...] Collaboration with patient, MD, direct care nurse, Product Mgr, and other members of the health care team to assure needed interventions completed. 2. Return patient to optimal level of self-care post discharge. 3. [employer] will follow for Discharge Planning - interventions [...] in agreement with the aftercare plan. Daysi Lemon RN * Jenny Arias MD - 05/23/2021 8:51 AM CDT Medicine Firm Daily Progress Subjective Identifying Information: Patient is a 35 y.o. male admitted for management of infected abdominal fluid collection and paraspinal fluid collection/abscess. Interval History: -Pt endorses R lower quadrant abdominal pain, denies fever, chills, nausea, vomitting -Pt had paracolic fluid collection drained yesterday by IR -Ortho spine consulted for management of paraspinal fluid collection and deemed that patient not good surgical candidate -ID consulted and managing fluid collections with daptomycin and meropenem ROS: Negative except as noted above Scheduled Medications: acetaminophen, 650 mg, oral, TID carvediloL, 3.125 mg, oral, BID with meals (bkfst, dinner) DAPTOmycin, 8 mg/kg (Adjusted), intravenous, Q24H MARYANN enoxaparin, 40 mg, subcutaneous, Daily-2100 ferrous sulfate, 65 mg of elemental iron, oral, BID with meals (bkfst, lunch) gabapentin, 300 mg, oral, Nightly linaCLOtide, 145 mcg, oral, Daily meropenem, 1,000 mg, intravenous, Q8H MARYANN pantoprazole DR, 40 mg, oral, BID AC (bkfst, dinner) potassium chloride ER, 40 mEq, oral, Daily sodium chloride 0.9%, 0.5-20 mL, intra-catheter, Q8H MARYANN Continuous Medications: PRN Medications: calcium carbonate ??? cyclobenzaprine ??? ondansetron ODT ??? oxyCODONE Objective Vitals: 24hr Min/Max: Temp Min: 36.4 ??C (97.5 ??F) Max: 38.2 ??C (100.8 ??F) Pulse Min: 79 Max: 115 BP Min: 108/65 Max: 164/108 Resp Min: 9 Max: 19 SpO2 Min: 91 % Max: 100 % Most Recent : Vitals: 05/23/21 0800 BP: 126/64 Pulse: 114 Resp: 16 Temp: 38.2 ??C (100.8 ??F) SpO2: 100% I/O last 2 completed shifts: In: - Out: 1100 [Urine:850; Drains:250] I/O this shift: In: 464 [P.O.:340; IV Piggyback:124] Out: - Physical Exam: Constitutional:??Drowsy, obese, lying in bed HEENT: MMM, hearing grossly intact, normal conjunctiva, no scleral icterus, EOMI Cardiovascular:??Regular??tachycardia??and rhythm, normal S1/S2, no murmurs/rubs/gallops. JVP not elevated, no peripheral edema ?? Pulmonary: Clear to auscultation bilaterally, normal work of breathing, no wheezing/rales/rhonchi Abdominal: Soft, non-distended, bowel sounds present.??Mild diffuse tenderness throughout the RLQ. IR drain in place on the L side with bloody drain.? Extremities:??Bilateral BKA with stumps well healed and clean.??Buttock/thigh??wound clean and nonpurulent Skin:??Warm and dry, cap refill <2 seconds. Neurological:??AAO x3, CN grossly intact, no focal deficits appreciated ?? Psychiatric: Mood and affect normal ?? Labs Recent Labs Lab Units 05/23/21 0831 05/22/21 0800 WBC K/cumm 6.6 8.5 HEMOGLOBIN g/dL 8.3* 10.5* HEMATOCRIT % 26.6* 33.7* PLATELETS K/cumm 310 389 NEUTROS PCT % 77.2 81.3 LYMPHS PCT % 16.3 12.5 MONOS PCT % 5.0 4.8 EOS PCT % 0.9 0.7 Recent Labs Lab Units 05/22/21 2201 05/22/21 1824 05/22/21 0800 SODIUM mmol/L -- -- 141 POTASSIUM PLASMA mmol/L -- -- 4.5 CHLORIDE mmol/L -- -- 102 CO2 mmol/L -- -- 24 ANIONGAP mmol/L -- -- 15 GLUCOSE mg/dL -- -- 106 POC GLUCOSE MONITOR mg/dL 75 75 -- BUN SERUM mg/dL -- -- 16 CREATININE mg/dL -- -- 0.91 CALCIUM mg/dL -- -- 10.2 ALBUMIN g/dL -- -- 4.2 ALK PHOS Units/L -- -- 100 ALT Units/L -- -- 69* AST Units/L -- -- 50 BILIRUBIN TOTAL mg/dL -- -- 0.6 Recent Labs Lab Units 05/22/21 0800 ALK PHOS Units/L 100 BILIRUBIN TOTAL mg/dL 0.6 TOTAL PROTEIN g/dL 9.2* ALT Units/L 69* AST Units/L 50 Recent Labs Lab Units 05/22/21 0800 LACTATE mmol/L 1.3 Recent Labs Lab Units 05/22/21 1034 LEUKOCYTE ESTERASE UR Negative NITRITE UR Negative PH, URINE 7 GLUCOSE URQL Negative PROTEIN UR QL Negative KETONES UR Negative BILIRUBIN URINE Negative BLOOD UR Negative UROBILINOGEN UR <2.0 I have reviewed the above laboratory results. Imaging XR Spine Lumbar 2 or 3 Views Narrative: EXAMINATION: XR SPINE LUMBAR 2 OR [...] pelvis at the inferior margin of the [id number]-gq-kevo. An inferior vena cava filter is present. [...] it. Electronically signed by: Leonel Bates M.D. Image Guided Drainage Peritoneal or Retroperitoneal Fluid Collection Narrative: EXAMINATION: PERCUTANEOUS DRAINAGE (STD) HISTORY/INDICATION: 35-year-old man with paraplegia and bilateral below the knee amputation presenting with abdominal pain. CT demonstrated left paracolic gutter fluid collection. Request for image guided percutaneous drain placement. ATTENDING PRESENCE: Leonel Tomas M.D., the attending radiologist was [...] was obtained. Prior to beginning the procedure, [place] Protocol was used to confirm the patient's identity and planned procedure. If fluoroscopy was used, fluoroscopy time has been recorded [...] dilating the tract to 12 Fr. A 12-Tongan Mac catheter was then advanced over the guidewire and secured in place with a stitch of 0-Prolene. The catheter was connected to gravity drainage. A sterile dressing was applied. A sample of the fluid was sent for culture ESTIMATED BLOOD LOSS: Minimal. CONDITION: Stable DISCHARGED TO: Recovery and then to home. FINDINGS: Images from the procedure revealed a collection that was large and irregular in configuration. The fluid appeared blood-tinged and serous sanguinous. An approximate volume of 100 cc was drained at the time of the procedure. Impression: Successful image guided left paracolic gutter fluid collection drainage with placement of a 12-Tongan Mac catheter. PLAN: This tube should be flushed with saline 10 mL twice a day. Interventional radiology will continue to follow this patient. Dictated by: Jessee Rivera M.D. CT Abdomen Pelvis W Contrast Narrative: EXAMINATION: [...] normal. The pancreas appears normal. The adrenal glands appear normal. There are benign-appearing cysts within the bilateral kidneys, unchanged from prior examination. There is no hydronephrosis. Post surgical changes from neobladder formation are again seen. There are 3 large stones in the neobladder previously seen are no longer present. A supra pubic catheter is in place. There is no intestinal [...] destructive process centered at L5-S1. Interval increase in size of a fluid collection [...] it. Electronically signed by: Scott Aleman M.D. ECG 12 lead Kailyn Crews MD PhD 05/22/2021 7:50 AM ECG 12 lead Date/Time: 05/22/2021 7:48 AM Performed by: Kailyn Crews MD PhD Authorized by: Darci Tomlin MD Rate: ECG rate: 62 ECG rate assessment: normal Rhythm: Rhythm: sinus rhythm Ectopy: Ectopy: none QRS: QRS axis: Normal QRS intervals: Normal Conduction: Conduction: normal ST segments: ST segments: Normal T waves: T waves: normal Previous ECG: Previous ECG: Compared to current Date of previous EC04/09/2021 Interpretation: Interpretation: No significant change Recommended Follow-up: Recommended follow up: further workup in the ED Assessment/Plan This is a 35 y.o. male with pmhx significant for T4/T5 paraplegia with bilateral BKA and neurogenicbladder s/p neobladder, HTN, and hx of multiple complicated UTIs (hx of ESBL E.coli UTI), ureteral stones and stones in bladder, pressure injury on L buttock and L thigh who presents to the ED with complaint of abdominal pain, nausea, vomiting, and malaise and CT findings notable for increased sizein previous paracolic fluid collection and new fluid collection within subq back tissue to lumbar paraspinal muscles. IR drained patients paracolic fluid collection. Pt on daptomycin and meropenem for broad coverage of intraabdominal and paraspinal infections. ?? #L5-S1 discitis/ostemyelitis/L Paracolic and lumbar paraspinal fluid collections or abscess in the context of a neurogenic spine #hx of fluid collection between L5 vertebral body and calf Patient recently admitted 03/2021 for an infected paraspinal fluid collection.This fluid collection was aspirated by IR and its culture was +Ecoli. Patient was treated with vanc/kaykay from 03/28-04/07. Patient was then treated with IV ceftriaxone 2 grams q 24 hours for 6 weeks and then switched to augmentin BID. Ortho spine was consulted and felt that surgery for source control would be too morbid for the patient and likely to cause more harm than benefits. Pt took ceftriaxone on discharge on 04/11 an dit was discontinued during his admission to OSH on 04/30. He was then started on Augmentin on discharge from OSH. Pt was given 2g meropenem and 1.75 g vancomycin in the ED. CTAP also obtained and sig nificant for interval progression of destructive process at L5-S1, interval increase of fluid collection within the L paracolic gutter, along with new fluid collection within the subcutaneous tissuesof back ,superficial to the lumbar spinal muscles. L paracolic gutter collection was aspirated today by IR and drain was also placed over the L paracolic gutter. Neuro spine consulted and given thereare no acute neuro changes and patient remains a poor surgical candidate and thus recommend non operative management. L-XR on 05/22 notable for L5-S1 destruction consistent with discitis and OM as seen on CT. -WBC 8.5 -UA normal -CRP 94 ESR 97 -BCx NGTD Plan: -ID consulted and recommend meropenem and daptomycin -check weekly CK -f/u blood cx -f/u IR cultures ?? #paraplegia #pressure injury buttock and thigh No sensation/motor function from nipples down -continue home gabapentin 300 mg nightly, flexeril 6 mh TID PRN (home) -pain control with tylenol TID, oxy 5 q4 PRN. Holding bowel regimen in setting of loose stools -wound consult ?? #hx of chronic constipation -currently holding bowel regimen -continue home linzess ?? #HTN -continue home coreg ?? #Anemia -continue home ferrous sulfate No new Assessment & Plan notes have been filed under this hospital service since the last note was generated. Service: Medicine Firm Code Status: Full Code Diet: Adult Diet Regular DVT Prophylaxis: Lovenox Dispo: Med 1 Blue solid Jenny Arias MD Internal Medicine PGY-1 Cosigned by Peter Mcgrath MD at 05/23/2021 3:10 PM CDT * Edgar Hernandez [facility] - 05/23/2021 8:40 AM CDT Antimicrobial Stewardship Review ASP review-restricted antimicrobial(s): daptsuzi A member of the [facility] antimicrobial stewardship program has reviewed the patient's chart including the above WLS-qaxvyk-fowjetrjya antimicrobial(s). Criteria for continued use has been met. For questions, contact: Edgar Hernandez, Pharm.D., [facility] Clinical Specialist, Infectious Diseases [phone] Clinical consideration should be performed prior to any antimicrobial modifications. These recommendations do not represent a formal Infectious Diseases consult. * Nick Herrera MD PhD - 05/23/2021 8:30 AM CDT Radiology Progress Note Interval History: 35 year old man with paraplegia and bilateral below the knee amputation presenting with worsening abdominal pain and CT abd/pelvis demonstrating a left paracolic gutter fluid collection. Status post 12F catheter placement. Patient reports reduced abdominal pain and chills. Exam: Temp: [36.4 ??C (97.5 ??F)-38.2 ??C (100.8 ??F)] Pulse: [79-115] Resp: [9-19] BP: (108-164)/(61-117) GEN: NAD CV: regular rate Resp: nonlabored breathing Abd: left lower quadrant 12F drainage catheter to gravity, mild TTP Hematology Lab History Some values may be hidden. Unless noted otherwise, only the newest values recorded on each date aredisplayed. Labs - Hematology Latest Ref Range 04/09/21 04/10/21 05/13/21 05/22/21 WBC 3.8 - 9.9 K/cumm 12.2 (A) 11.0 (A) 12.2 (A) 8.5 Total Hb, POC 13.0 - 17.5 g/dL 8.8 (A) 8.9 (A) 10.2 (A) 10.5 (A) Hct 38.9 - 50.3 % 27.8 (A) 27.7 (A) 33.2 (A) 33.7 (A) Plt 150 - 400 K/cumm 387 365 481 (A) 389 Neutrophil abs 1.7 - 6.5 K/cumm 9.6 (A) 8.4 (A) 10.3 (A) 6.9 (A) Lymphocytes, abs 0.8 - 3.3 K/cumm 1.7 1.6 1.5 1.1 (A) Abnormal value Chem/LFT Lab History Some values may be hidden. Unless noted otherwise, only the newest values recorded on each date aredisplayed. Labs-Chem/LFT Latest Ref Range 04/08/21 04/09/21 05/13/21 05/22/21 Sodium 135 - 145 mmol/L 132 (A) 132 (A) 139 141 Creatinine 0.80 - 1.30 mg/dL 0.57 (A) 0.59 (A) 1.08 0.91 Bilirubin, total 0.1 - 1.2 mg/dL 0.7 0.4 0.6 AST 10 - 50 Units/L 37 49 50 ALT 7 - 55 Units/L 40 40 69 (A) CrCl- Actual Body Weight (Cockcroft-Gault) 326.5 315.4 165.2 196.1 (A) Abnormal value Comments are available for some flowsheets but are not being displayed. Output by Drain (mL) 05/21/21 0700 - 05/21/21 1859 05/21/21 1900 - 05/22/21 0659 05/22/21 07 - 05/22/21 1859 05/22/21 1900 - 05/23/21 0659 05/23/21 0700 - 05/23/21 0837 Closed/Suction/Open Drain 1 LLQ 12 Fr. 250 cultures: NGTD Assessment and Plan: 35 year old man with paraplegia and bilateral below the knee amputation presenting with worsening abdominal pain and CT abd/pelvis demonstrating a left paracolic gutter fluid collection. Status post 12F catheter placement. Patient reports reduced abdominal pain and chills. - f/u output, cultures - IR will continue to follow I have seen and examined the patient on 05/23/21. I agree with the findings and plan of care as documented in the resident's/fellow's note. Serous drainage and if cultures remain negative at 48 hrs, can consider removing the catheter from this serous collection to minimize the chance of superinfection. Fantasma Herrera MD PhD * Jaylyn Fair RN - 05/22/2021 3:34 PM CDT Pt arrives to [facility] to await transport back to the ER. Pt is alert and denies any pains. Left lower abdominal procedure site is dry and intact,new drain is intact and draining dark orange fluid. Pt is on the monitor and vital signs are stable. Pt denies any needs or wants at this time and call light is placed in his hand documented in this encounter H&P Notes * Jenny Arias MD - 05/22/2021 1:45 PM CDT General Medicine History and Physical Subjective Patient is a 35 y.o. male with chief complaint of abdominal pain. HPI: 35 y/o M with PMH of T4/T5 paraplegia with bilateral BKA and neurogenic bladder s/p neobladder, HTN, and hx of multiple complicated UTIs (hx of ESBL E.coli UTI), ureteral stones and stones in bladder, pressure injury on L buttock and L thigh who presents to the ED with complaint of abdominal pain, nausea, vomiting, and malaise. On exam, patient still sedated IR procedure, complaining of a 2- day history of intolerable, 9/10 RLQ pain and also endorses some flank pain. Endorses chills, 1 episode of emesis this morning, and poor PO intake. Patient denies fevers, CP, SOB, cough, dysuria, constipation. Pt recently admitted on 04/30 at [facility] for cystolithotomy and suprapubic tube placement for largeureteral and bladder stone burden and VRE UTI. Pt also recently admitted to [place] on 03/28 for management of a lumbosacral fluid collection/abscess and complicated UTI. CT and MRI from the previous ho spitalization indicated destructive processes w/ fluid collection at L5/S1. IR aspirated the complex spinal fluid collection on 03/31 which grew kim-susceptible E coli. Pt was discharged on plan for 6week course of IV ceftriaxone, which was stopped on admission to OSH and discharged on augmentin. At this time, patient noticed worsening abdominal pain associated with N/V and malaise. In the ED, CBC, CMP, UA, BCx, CRP, ESR, CTAP and were ordered and notable for CT findings of increased size in paracolic fluid collection and new fluid collection from within subcutaneous back tissueto lumbar paraspinal muscles. IR, ID, and ortho spine consulted given these CT findings. Pt given meropenom 2g, vanc 1.75 g, fluids, and dilaudid for pain in the ED. History reviewed. No pertinent past medical history. Past Surgical History: Procedure Laterality Date ??? ASPIRATION OF ABSCESS HEMATOMA CYST N/A 03/31/2021 Medications Prior to Admission Medication Sig Dispense Refill Last Dose ??? amoxicillin-clavulanate (AUGMENTIN) 875-125 mg per tablet [...] 3 (three) times a day before meals Allergies Allergen Reactions ??? Metoclopramide Social History Tobacco Use ??? Smoking status: Former Smoker Substance Use Topics ??? Alcohol use: Not on file Family History Problem Relation Age of Onset ??? Hypertension Other Family history of hypertension - (Added by CASANDRA Conv) ??? Cancer Other Family history of malignant neoplasm - (Added by TW Conv) Review of Systems Review of systems per HPI and otherwise all other systems are negative Objective Vitals: Arrival Vitals Temp 05/22/21 0605 36.6 ??C (97.9 ??F) Pulse 05/22/21 0608 55 Resp 05/22/21 0608 18 BP 05/22/21 0608 (!) 183/126 SpO2 05/22/21 0700 100 % Temp src 05/22/21 0605 Oral Heart Rate Source -- Patient Position -- BP Location -- FiO2 (%) -- 24hr Min/Max: Temp Min: 36.4 ??C (97.5 ??F) Max: 36.6 ??C (97.9 ??F) Pulse Min: 55 Max: 115 BP Min: 140/87 Max: 188/105 Resp Min: 18 Max: 18 SpO2 Min: 97 % Max: 100 % Most Recent : Vitals: 05/22/21 1340 BP: Pulse: 104 Resp: Temp: 36.4 ??C (97.5 ??F) SpO2: 100% No intake/output data recorded. No intake/output data recorded. Physical Exam: Constitutional: Drowsy, obese, lying in bed HEENT: MMM, hearing grossly intact, normal conjunctiva, no scleral icterus, EOMI Cardiovascular: Regular tachycardia and rhythm, normal S1/S2, no murmurs/rubs/gallops. JVP not elevated, no peripheral edema Pulmonary: Clear to auscultation bilaterally, normal work of breathing, no wheezing/rales/rhonchi Abdominal: Soft, non-distended, bowel sounds present. Mild diffuse tenderness throughout the RLQ. IR drain in place on the L side with bloody drain. Extremities: Bilateral BKA with stumps well healed and clean. Unable to examine the documented buttock/thigh wound given difficulty with repositioning. Skin: Warm and dry, cap refill <2 seconds Neurological: AAO x3, CN grossly intact, no focal deficits appreciated Psychiatric: Mood and affect normal Lab/Radiology/Diagnostic Review: Recent Results (from the past 24 hour(s)) CBC with auto differential Collection Time: 05/22/21 8:00 AM Result Value Ref Range WBC 8.5 3.8 - 9.9 K/cumm Hgb 10.5 (L) 13.0 - 17.5 g/dL Hct 33.7 (L) 38.9 - 50.3 % Plt 389 150 - 400 K/cumm MPV 11.8 9.1 - 12.3 fL RBC 4.21 (L) 4.30 - 5.80 M/cumm MCV 80.0 (L) 81.3 - 96.4 fL MCH 24.9 (L) 27.1 - 33.3 pg MCHC 31.2 (L) 32.3 - 35.7 g/dL RDW CV 15.9 (H) 11.1 - 14.9 % RDW SD 46.0 35.7 - 48.1 fL NRBC abs 0.00 0.00 - 0.01 K/cumm Comprehensive metabolic panel Collection Time: 05/22/21 8:00 AM Result Value Ref Range Sodium 141 135 - 145 mmol/L Potassium, pl 4.5 3.3 - 4.9 mmol/L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 neurogenic spine #hx of fluid collection between L5 vertebral body and calf Patient recently admitted 03/2021 for an infected paraspinal fluid collection.This fluid??collectionwas aspirated by IR and its culture was +Ecoli.??Patient was treated with vanc/kaykay from 03/28-04/07.??Patient was then treated with??IV ceftriaxone 2 grams q??24 hours for 6 weeks and then switched toaugmentin BID.??Ortho spine was consulted and felt that surgery for source control would be too morbid for the patient and likely to cause more harm than benefits.??Pt took ceftriaxone on discharge on 04/11 an dit was discontinued during his admission to OSH on 04/30. He was then started on Augmentin on discharge from OSH. Pt was given 2g meropenem and 1.75 g vancomycin in the ED. CTAP also obtainedand significant for interval progression of destructive process at L5-S1, interval increase of fluid collection within the L paracolic gutter, along with new fluid collection within the subcutaneous tissues of back ,superficial to the lumbar spinal muscles. L paracolic gutter collection was aspirated today by IR and drain was also placed over the L paracolic gutter. Neuro spine consulted and given there are no acute neuro changes and patient remains a poor surgical candidate and thus recommend non operative management. L-XR on 05/22 notable for L5-S1 destruction consistent with discitis and OMas seen on CT. Pt started on meropenem and daptomycin for infection. Given that SNF is not able to administer the meropenem q8hrs, ID recommends cefepime 2g IV q12 hrs, flagyl 500 mg PO q8 hrs, daptomycin 550 mg q 24 hrs Plan: -blood and IR aspirate cultures negative to date -ID consulted, recommend cefepime 2g IV q12 hrs, flagyl 500 mg PO q8 hrs, daptomycin 550 mg q 24 hrs -Pt has PICC in place -check CK q72 hr ?? #paraplegia #pressure injury buttock and thigh No sensation/motor function from nipples down -continue home gabapentin 300 mg nightly, flexeril 6 mh TID PRN (home) -pain control with tylenol TID, oxy 5 q4 PRN. Holding bowel regimen in setting of loose stools -appreciate wound RN recs ?? #hx of chronic constipation -currently holding bowel regimen -holding home linzess iso diarrhea ?? #HTN -continue home coreg ?? #Anemia -holding home ferrous sulfate iso acute infection ?? * Medical Student - Yuli Lugo - 05/26/2021 8:35 AM CDT MEDICINE DAILY PROGRESS NOTE Medical Student Note Date of Admission: 05/22/2021 Date of Service: 05/26/2021 Patient: Shawn Casey Jr. Room: [id number] SUBJECTIVE CHIEF COMPLAINT Abd pain BRIEF HPI 35yo AAF h/p T5/T5 paraplegia, neurogenic bladder s/p neobladder and suprapubic catheter, bilateralBKA, infected abd fluid and spinal fluid collection who presented with RLQ pain 24 HOUR EVENTS PICC placed yesterday. NAEON, abd pain improving and well controlled with oxy 5mg 2x-3x/day. CURRENT MEDICATIONS Scheduled Medications: acetaminophen, 650 mg, oral, TID carvediloL, 3.125 mg, oral, BID with meals (bkfst, dinner) DAPTOmycin, 550 mg, intravenous, Q24H MARYANN enoxaparin, 40 mg, subcutaneous, Daily-2100 [Held by Provider] ferrous sulfate, 65 mg of elemental iron, oral, BID with meals (bkfst, lunch) gabapentin, 300 mg, oral, Nightly lidocaine, 1-2 mL, subcutaneous, Once [Held by Provider] linaCLOtide, 145 mcg, oral, Daily meropenem, 1,000 mg, intravenous, Q8H MARYANN pantoprazole DR, 40 mg, oral, BID AC (bkfst, dinner) potassium chloride ER, 40 mEq, oral, Daily sodium chloride 0.9%, 0.5-20 mL, intra-catheter, Q8H MARYANN sodium chloride 0.9%, 5-10 mL, intra-catheter, Q12H MARYANN Continuous Medications: PRN Medications: calcium carbonate ??? cyclobenzaprine ??? ondansetron ODT ??? oxyCODONE ??? sodium chloride 0.9% OBJECTIVE VITALS / I&Os Most Recent : Vitals: 05/26/21 0735 BP: 154/92 Pulse: 74 Resp: 18 Temp: 36.7 ??C (98.1 ??F) SpO2: 100% 24hr Min/Max: Temp Min: 36.6 ??C (97.9 ??F) Max: 36.8 ??C (98.2 ??F) Pulse Min: 60 Max: 100 BP Min: 117/75 Max: 154/92 Resp Min: 18 Max: 18 SpO2 Min: 100 % Max: 100 % Intake/Output Summary (Last 24 hours) at 05/26/2021 0836 Last data filed at 05/26/2021 0655 Gross per 24 hour Intake 150 ml Output 1447 ml Net -1297 ml I/O last 2 completed shifts: In: 150 [I.V.:40; IV Piggyback:110] Out: 2063.5 [Urine:2049; Drains:14.5] No intake/output data recorded. PHYSICAL EXAM Constitutional: Well-developed, well-nourished, and in no acute distress HEENT: MMM, hearing grossly intact, normal conjunctiva, no scleral icterus, EOMI Cardiovascular: Regular rate and rhythm, normal S1/S2, no murmurs/rubs/gallops. JVP not elevated, no peripheral edema Pulmonary: Clear to auscultation bilaterally, normal work of breathing, no wheezing/rales/rhonchi Abdominal: Soft, moderate tenderness on RLQ without guarding, non-distended, bowel sounds present. L side drain exit site clean, minimal output Extremities: Warm and well-perfused, equal pulses, no cyanosis or clubbing Neurological: AAO x3, CN grossly intact, no focal deficits appreciated Skin: Warm and dry, cap refill <2 seconds Psychiatric: Mood and affect normal LABS Recent Labs Lab Units 05/25/21202405/25/21 0155 05/25/21 0155 05/23/215 05/23/21212405/23/21 0831 05/23/21 0831 05/22/21 0800 05/22/21 0800 HEMOGLOBIN g/dL 8.5* < > 8.8* < > 8.2* < > 8.3* < > 10.5* HEMATOCRIT % 27.9* < > 28.1* < > 26.5* < > 26.6* < > 33.7* WBC K/cumm 7.1 < > 7.9 < > 8.0 < > 6.6 < > 8.5 PLATELETS K/cumm 298 -- 310 -- 292 -- 310 -- 389 < > = values in this interval not displayed. Recent Labs Lab Units 05/25/212024 SODIUM mmol/L 140 POTASSIUM PLASMA mmol/L 4.3 CHLORIDE mmol/L 104 CO2 mmol/L 25 ANIONGAP mmol/L 11 BUN SERUM mg/dL 11 CREATININE mg/dL 0.78* CALCIUM mg/dL 8.5 Recent Labs Lab Units 05/22/21 0800 ALBUMIN g/dL 4.2 ALK PHOS Units/L 100 AST Units/L 50 ALT Units/L 69* BILIRUBIN TOTAL mg/dL 0.6 Cultures: Lab Results Component Value Date MICROBIOLOGY Preliminary Report: Culture results pending. 05/23/2021 MICROBIOLOGY Final Report: No growth 05/22/2021 MICROBIOLOGY Preliminary Report: No growth to date. 05/22/2021 MICROBIOLOGY Preliminary Report: No growth to date. 05/22/2021 MICROBIOLOGY (.) 04/09/2021 Final Report: Enterococcus species, vancomycin resistant IMAGING No results found. OTHER STUDIES ASSESSMENT & PLAN Shawn Casey Jr. Is a 35yo man with h/o T4/T5 paraplegia, bilateral BKA, neurogenic bladder and cystolithiasis s/p suprapubic catheter placement, who was recently treated for spinal abscess and currently presenting with abd pain. ?? #Abd pain #Pericolic fluid collection #Spinal fluid collection, expanded Patient is presenting with a history of acute-onset RLQ pain with imaging evidence of pericolic fluid collection on the left side. Patient can experience abd pain from irritation of pericolic fluid although the location of fluid does not match the location of pain. S/p IR drainage, ID c/s. CT also indicated increased size of spinal abscess, ortho spine recommended nonop management. There are a few possibilities regarding the origin of the fluid collection/infection: it could have started with the skin wound and spread contiguously to the spinal space and eventually to the intra-abdominal space, but it is also possible to start from the UTI/urosepsis and seed the other infection sites secondarily. Prior culture result of E coli makes one suspect an infectious origin from UTI or stool contamination. -??Continue dapto/kaykay. Dapto dose adjusted to 550mg Q24hrs. - ID recommended 6wks of IV abx, PICC placed - Oxycodone PRN and scheduled tylenol for pain control - BCx x2 sent??NGTD. IR aspirate Cx final without growth. IR recommended removing drain if output continues to decrease, will confirm estimated date for removal. - Non-op management for spinal abscess. ?? #Chronic diarrhea Watery diarrhea in patient on prolonged course of abx - C diff sent and will follow up on results ?? #HTN Patient has HTN to 180s/100s on admission and is 130s/80s s/p sedation. On home Coreg 3.125mg BID.??Previously also on??Norvasc, Losartan, Hydralazine, Clonidine??but these meds were DC'ed at last hospitalization due to sepsis/hypotension.?? - Today's BP 110s/70s - Can consider restarting previous home reg after stabilizing acute illness. Also consider HCTZ given survival benefit in AA population. ?? #Paraplegia?? #Pressure injury of skin/buttocks Chronic pain control with norco. Chronic buttocks wound present and at higher risk for developing new pressure injury given paraplegia and obesity.?? - Wound consulted and examined patient's chronic wounds - Weight redistribution with??EHOB mattress and ROHO sitting surface per wound rec, turn schedule??Q2hrs. - Continue to monitor for signs of wound infection Code Status: Full Code Diet: Adult Diet Regular PPX: Lovenox for DVT prophylaxis Dispo: SNF after drain removal and ID rec finalized Rosalina SAMIA Lugo IV 05/26/21 8:36 AM Cosigned by Allen Driver MD at 05/28/2021 2:38 PM CDT * Plan of Care - Jennifer Gant RN - 05/26/2021 6:51 AM CDT Problem: Health Behavior: Goal: Understanding [...] and injury in home environment Outcome: Progressing Problem: Lack of Knowledge: Goal: Ability to develop a pain control plan will improve Outcome: Progressing Goal: Ability to identify pain intensity on a pain scale and rate it consistently will improve Outcome: Progressing Goal: Ability to notify healthcare provider of pain before it becomes unmanageable or unbearable will improve Outcome: Progressing Problem: Medication: Goal: Satisfaction with pain management regimen will improve Outcome: Progressing Problem: Sensory: Goal: Ability to identify factors that increase the pain will improve Outcome: Progressing Goal: Pain level will decrease Outcome: Progressing Problem: Lack of Knowledge: Goal: Ability to state signs and symptoms to report to health care provider will improve Outcome: Progressing Goal: Understanding of ways to prevent infection will improve Outcome: Progressing Problem: Nutritional: Goal: Nutritional status will improve Outcome: Progressing Problem: Physical Regulation: Goal: Diagnostic test results will improve Outcome: Progressing Goal: Will remain free from infection Outcome: Progressing Goal: Ability to maintain vital signs within normal range will improve Outcome: Progressing Problem: Respiratory: Goal: Ability to maintain normal respiratory secretions will improve Outcome: Progressing Problem: Skin Integrity: Goal: Demonstration of wound healing without infection will improve Outcome: Progressing Goal: Complications related to intravenous access or infusion will be avoided or minimized Outcome: Progressing Goals: Clinical Goals for the Shift: Pt will remain free from falls; VSS and restful night Summary: Pt remained free from falls; VSS; Pain well controlled with tylenol and oxy.Wound care anddressing changes on suprapubic cath and LLQ drain changed. Pt got CHG bath and had restful night. * Plan of Care - Yared Jay Jr., RN - 05/25/2021 1:56 PM CDT Goals: Clinical Goals for the Shift: wound care and turns Problem: Health Behavior: Goal: Understanding of discharge [...] and injury in home environment Outcome: Progressing Problem: Lack of Knowledge: Goal: Ability to develop a pain control plan will improve Outcome: Progressing Goal: Ability to identify pain intensity on a pain scale and rate it consistently will improve Outcome: Progressing Goal: Ability to notify healthcare provider of pain before it becomes unmanageable or unbearable will improve Outcome: Progressing Problem: Medication: Goal: Satisfaction with pain management regimen will improve Outcome: Progressing Problem: Sensory: Goal: Ability to identify factors that increase the pain will improve Outcome: Progressing Goal: Pain level will decrease Outcome: Progressing Problem: Lack of Knowledge: Goal: Ability to state signs and symptoms to report to health care provider will improve Outcome: Progressing Goal: Understanding of ways to prevent infection will improve Outcome: Progressing Problem: Nutritional: Goal: Nutritional status will improve Outcome: Progressing Problem: Physical Regulation: Goal: Diagnostic test results will improve Outcome: Progressing Goal: Will remain free from infection Outcome: Progressing Goal: Ability to maintain vital signs within normal range will improve Outcome: Progressing Problem: Respiratory: Goal: Ability to maintain normal respiratory secretions will improve Outcome: Progressing Problem: Skin Integrity: Goal: Demonstration of wound healing without infection will improve Outcome: Progressing Goal: Complications related to intravenous access or infusion will be avoided or minimized Outcome: Progressing Summary: Wound care to be completed at 1500. Patient had 1 episode of intense pain. VS remained stable. * Plan of Care - Lena Rosenberg RN - 05/25/2021 4:33 AM CDT Problem: Health Behavior: Goal: Understanding of discharge needs will improve 05/25/2021 043 by Lena Rosenberg RN Outcome: Progressing 05/25/2021 043 by Lena Rosenberg RN Outcome: Progressing Problem: Activity: Goal: Mobility will improve 05/25/2021 043 by Lena Rosenberg RN Outcome: Progressing 05/25/2021 043 by Lena Rosenberg RN Outcome: Progressing Problem: Lack of Knowledge: Goal: Understanding of ways to prevent future skin breakdown will improve 05/25/2021 0433 by Lena Rosenberg RN Outcome: Progressing 05/25/2021 043 by Lena Rosenberg RN Outcome: Progressing Goal: Ability to identify appropriate dietary choices will improve 05/25/2021 043 by Lena Rosenberg RN Outcome: Progressing 05/25/2021 043 by Lena Rosenberg RN Outcome: Progressing Problem: Nutritional: Goal: Dietary intake will improve 05/25/2021 043 by Lena Rosenberg RN Outcome: Progressing 05/25/2021 043 by Lena Rosenberg RN Outcome: Progressing Goal: Ability to maintain a balanced intake and output will improve 05/25/2021 043 by Lena Rosenberg RN Outcome: Progressing 05/25/2021 043 by Lena Rosenberg RN Outcome: Progressing Problem: Skin Integrity: Goal: Risk for impaired skin integrity will decrease 05/25/2021 043 by Lena Rosenberg RN Outcome: Progressing 05/25/2021 043 by Lena Rosenberg RN Outcome: Progressing Goal: Ability to demonstrate warm and dry skin will improve 05/25/2021 0433 by Lena Rosenberg RN Outcome: Progressing 05/25/2021 043 by Lena Rosenberg RN Outcome: Progressing Goal: Circulation will improve to fullest extent possible 05/25/2021 043 by Lena Rosenberg RN Outcome: Progressing 05/25/2021 043 by Lena Rosenberg RN Outcome: Progressing Problem: Lack of Knowledge: Goal: Ability to state ways to decrease the risk of falls will improve 05/25/2021 043 by Lena Rosenberg RN Outcome: Progressing 05/25/2021 0430 by Lena Rosenberg RN Outcome: Progressing Problem: Safety: Goal: Will remain free from falls 05/25/2021 0433 by Lena Rosenberg RN Outcome: Progressing 05/25/2021 0430 by Lena Rosenberg RN Outcome: Progressing Goal: Will remain free from injury from falls 05/25/2021 043 by Lena Rosenberg RN Outcome: Progressing 05/25/2021 0430 by Lena Rosenberg RN Outcome: Progressing Goal: Will remain free from falls and injury in home environment 05/25/2021 043 by Lena Rosenberg RN Outcome: Progressing 05/25/2021 043 by Lena Rosenberg RN Outcome: Progressing Problem: Lack of Knowledge: Goal: Ability to develop a pain control plan will improve Outcome: Progressing Goal: Ability to identify pain intensity on a pain scale and rate it consistently will improve Outcome: Progressing Goal: Ability to notify healthcare provider of pain before it becomes unmanageable or unbearable will improve Outcome: Progressing Problem: Medication: Goal: Satisfaction with pain management regimen will improve Outcome: Progressing Problem: Sensory: Goal: Ability to identify factors that increase the pain will improve Outcome: Progressing Goal: Pain level will decrease Outcome: Progressing Problem: Lack of Knowledge: Goal: Ability to state signs and symptoms to report to health care provider will improve Outcome: Progressing Goal: Understanding of ways to prevent infection will improve Outcome: Progressing Problem: Nutritional: Goal: Nutritional status will improve Outcome: Progressing Problem: Physical Regulation: Goal: Diagnostic test results will improve Outcome: Progressing Goal: Will remain free from infection Outcome: Progressing Goal: Ability to maintain vital signs within normal range will improve Outcome: Progressing Problem: Respiratory: Goal: Ability to maintain normal respiratory secretions will improve Outcome: Progressing Problem: Skin Integrity: Goal: Demonstration of wound healing without infection will improve Outcome: Progressing Goal: Complications related to intravenous access or infusion will be avoided or minimized Outcome: Progressing Goals: Clinical Goals for the Shift: pt will have no falls, receive wound care, pain control, and maintainstable labs/vitals this shift Summary:pt had no falls, received wound care/pain control, and maintained stable labs/vitals this shift * Plan of Care - Lena Rosenberg RN - 05/25/2021 4:30 AM CDT Problem: Health Behavior: Goal: Understanding [...] Goals for the Shift: pt will have no falls, receive wound care, pain control, and maintainstable labs/vitals this shift Summary: pt had no falls, received wound care, pain control, and maintained stable vitals/labs thisshift * Plan of Care - Yared Jay Jr., RN - 05/24/2021 2:11 PM CDT Goals: Clinical Goals for the Shift: wound care and receive abx Problem: Health Behavior: Goal: Understanding of discharge [...] and injury in home environment Outcome: Progressing Summary: Patient turned during the shift. Pt received abx with no complications.Wound care to be completed at 1500. * Medical Student - Yuli Lugo - 05/24/2021 11:04 AM CDT MEDICINE DAILY PROGRESS NOTE Medical Student Note Date of Admission: 05/22/2021 Date of Service: 05/24/2021 Patient: Shawn Casey JrGeorge Room: [place] [id number]/[place] [address] SUBJECTIVE CHIEF COMPLAINT abd pain BRIEF HPI 35yo AAF h/p T5/T5 paraplegia, neurogenic bladder s/p neobladder and suprapubic catheter, bilateralBKA, infected abd fluid and spinal fluid collection who presented with RLQ pain 24 HOUR EVENTS Loose watery diarrhea 4x-5x yesterday. C diff sent. Abd pain improving with PRN Oxycodone. 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 Drain last emptied at midnight, minimal output this morning. CURRENT MEDICATIONS Scheduled Medications: acetaminophen, 650 mg, oral, TID carvediloL, 3.125 mg, oral, BID with meals (bkfst, dinner) DAPTOmycin, 550 mg, intravenous, Q24H MARYANN enoxaparin, 40 mg, subcutaneous, Daily-2100 ferrous sulfate, 65 mg of elemental iron, oral, BID with meals (bkfst, lunch) gabapentin, 300 mg, oral, Nightly linaCLOtide, 145 mcg, oral, Daily meropenem, 1,000 mg, intravenous, Q8H MARYANN pantoprazole DR, 40 mg, oral, BID AC (bkfst, dinner) potassium chloride ER, 40 mEq, oral, Daily sodium chloride 0.9%, 0.5-20 mL, intra-catheter, Q8H MARYANN Continuous Medications: PRN Medications: calcium carbonate ??? cyclobenzaprine ??? ondansetron ODT ??? oxyCODONE OBJECTIVE VITALS / I&Os Most Recent : Vitals: 05/24/21 0755 BP: 139/76 Pulse: 89 Resp: 18 Temp: 37.3 ??C (99.1 ??F) SpO2: 99% 24hr Min/Max: Temp Min: 36.4 ??C (97.5 ??F) Max: 37.5 ??C (99.5 ??F) Pulse Min: 89 Max: 115 BP Min: 112/61 Max: 139/76 Resp Min: 16 Max: 18 SpO2 Min: 96 % Max: 100 % Intake/Output Summary (Last 24 hours) at 05/24/2021 1104 Last data filed at 05/24/2021 0020 Gross per 24 hour Intake 1854 ml Output 1095 ml Net 759 ml I/O last 2 completed shifts: In: 2318 [P.O.:2184; I.V.:10; IV Piggyback:124] Out: 1095 [Urine:1050; Drains:45] No intake/output data recorded. PHYSICAL EXAM Constitutional: Well-developed, well-nourished, and in no acute distress HEENT: MMM, hearing grossly intact, normal conjunctiva, no scleral icterus, EOMI Cardiovascular: Regular tachycardia normal S1/S2, no murmurs/rubs/gallops. JVP not elevated, no peripheral edema Pulmonary: Clear to auscultation bilaterally, normal work of breathing, no wheezing/rales/rhonchi Abdominal: Soft, non-distended, bowel sounds present. Tender to palpation on the right side with guarding. Left side nontender. IR drain in place, clean exit site Extremities: Bilateral BKA, stumps well healed. Chronic wound on knee without signs of bleeding or infection. Chronic wounds on the back and the thigh were dressed, clean on exam Neurological: AAO x3, CN grossly intact, no focal deficits appreciated Skin: Warm and dry, cap refill <2 seconds Psychiatric: Mood and affect normal LABS Recent Labs Lab Units 05/23/215 05/23/21 0831 05/23/21 0831 05/22/21 0800 05/22/21 0800 HEMOGLOBIN g/dL 8.2* < > 8.3* < > 10.5* HEMATOCRIT % 26.5* < > 26.6* < > 33.7* WBC K/cumm 8.0 < > 6.6 < > 8.5 PLATELETS K/cumm 292 -- 310 -- 389 < > = values in this interval not displayed. Recent Labs Lab Units 05/23/21 2125 SODIUM mmol/L 141 POTASSIUM PLASMA mmol/L 3.8 CHLORIDE mmol/L 105 CO2 mmol/L 24 ANIONGAP mmol/L 12 BUN SERUM mg/dL 15 CREATININE mg/dL 1.01 CALCIUM mg/dL 8.7 Recent Labs Lab Units 05/22/21 0800 ALBUMIN g/dL 4.2 ALK PHOS Units/L 100 AST Units/L 50 ALT Units/L 69* BILIRUBIN TOTAL mg/dL 0.6 Cultures: Lab Results Component Value Date MICROBIOLOGY Preliminary Report: No growth to date. 05/22/2021 MICROBIOLOGY Preliminary Report: No growth to date. 05/22/2021 MICROBIOLOGY Preliminary Report: No growth to date. 05/22/2021 MICROBIOLOGY (.) 04/09/2021 Final Report: Enterococcus species, vancomycin resistant MICROBIOLOGY 04/09/2021 Final Report: Less than 100,000 colonies/mL (clinically insignificant growth based on current clinical standards) IMAGING XR Spine Lumbar 2 or 3 Views Result Date: 05/22/2021 1. Marked osseous destruction centered on L5 and S1 involving the inferior portion of the L5 vertebral body and the superior aspect of the sacrum, which is better evaluated on prior CT of the abdomenand pelvis, consistent with progressive discitis-osteomyelitis. 2. Interval placement of a left abdominal pigtail drainage catheter. Dictated by: Jorge Rizo M.D. The radiology attending physician has personally reviewed this study, and had reviewed and/or edited this written report and agrees with it. Electronically signed by: Leonel Bates M.D. Image Guided Drainage Peritoneal or Retroperitoneal Fluid Collection Result Date: 05/22/2021 Successful image guided left paracolic gutter fluid collection drainage with placement of a 12-[place] Mac catheter. PLAN: This tube should be flushed with saline 10 mL twice a day. Interventional radiology will continue to follow this patient. Dictated by: Jessee Rivera M.D. OTHER STUDIES ASSESSMENT & PLAN Shawn Casey Jr. Is a 35yo man with h/o T4/T5 paraplegia, bilateral BKA, neurogenic bladder and cystolithiasis s/p suprapubic catheter placement, who was recently treated for spinal abscess and currently presenting with abd pain. ?? #Abd pain #Pericolic fluid collection #Spinal fluid collection, expanded Patient is presenting with a history of acute-onset RLQ pain with imaging evidence of pericolic fluid collection on the left side. Patient can experience abd pain from irritation of pericolic fluid although the location of fluid does not match the location of pain. S/p IR drainage, ID c/s. CT also indicated increased size of spinal abscess, ortho spine recommended nonop management. There are a few possibilities regarding the origin of the fluid collection/infection: it could have started with the skin wound and spread contiguously to the spinal space and eventually to the intra-abdominal space, but it is also possible to start from the UTI/urosepsis and seed the other infection sites secondarily. Prior culture result of E coli makes one suspect an infectious origin from UTI or stool contamination. - Continue dapto/kaykay. Dapto dose adjusted to 550mg Q24hrs. - Oxycodone PRN and scheduled tylenol for pain control - BCx x2 sent NGTD. IR aspirate Cx sent, currently showing PMNs without growth. Call ID regarding final recs on abx regimen and duration and if patient needs PICC placement - Monitor drain output - Non-op management for spinal abscess. ?? #Chronic diarrhea Watery diarrhea in patient on prolonged course of abx - C diff sent and will follow up on results ?? #HTN Patient has HTN to 180s/100s on admission and is 130s/80s s/p sedation. On home Coreg 3.125mg BID.??Previously also on??Norvasc, Losartan, Hydralazine, Clonidine??but these meds were DC'ed at last hospitalization due to sepsis/hypotension. - Today's BP 110s/70s - Can consider restarting previous home reg after stabilizing acute illness. Also consider HCTZ given survival benefit in AA population. ?? #Paraplegia?? #Pressure injury of skin/buttocks Chronic pain control with norco. Chronic buttocks wound present and at higher risk for developing new pressure injury given paraplegia and obesity. - Wound consulted and examined patient's chronic wounds - Weight redistribution with EHOB mattress and ROHO sitting surface per wound rec, turn schedule Q2hrs. - Continue to monitor for signs of wound infection ?? Code Status: Full Code Diet: Adult Diet Regular PPX: Lovenox for DVT prophylaxis Dispo: SNF after ID finalize recs SAMIA Mahajan IV 05/24/21 11:04 AM Cosigned by Jax Daly MD at 05/24/2021 8:10 PM CDT * Plan of Care - Heather Hunt RN - 05/23/2021 11:36 PM CDT Goals: Clinical Goals for the Shift: maintain turns, wound care Summary: VS stable. Pt refused turns twice, had a loose soft bowel movement and wound care done. Problem: Health Behavior: Goal: Understanding of discharge [...] injury in home environment Outcome: Progressing * Plan of Care - Sudhir Smith RN - 05/23/2021 6:56 PM CDT Problem: Health Behavior: Goal: Understanding [...] improve to fullest extent possible Outcome: Progressing Goals: Clinical Goals for the Shift: remain free from fall and injury; VSS; compliant with turn schedule, wound care Summary: remained free from fall and injury; VSS; compliant with most of turns, seen by wound care,wound care recommendation done accordingly; had 3 episode of loose bowel movement, collected stool sample for C diff result to follow; feels nauseated when giving IV antibiotics hence prefers to haveantiemetic with it * Medical Student - Yuli Lugo - 05/23/2021 12:27 PM CDT MEDICINE DAILY PROGRESS NOTE Medical Student Note Date of Admission: 05/22/2021 Date of Service: 05/23/2021 Patient: Shwan Casey Jr. Room: [id number] SUBJECTIVE CHIEF COMPLAINT Abd pain BRIEF HPI 35yo AAF h/p T5/T5 paraplegia, neurogenic bladder s/p neobladder and suprapubic catheter, bilateralBKA, infected abd fluid and spinal fluid collection who presented with RLQ pain. 24 HOUR EVENTS Patient had L side pericolic fluid drained by IR yesterday, drain in place with serosanguinous/blood-tinged output. Receiving oxy 5mg Q4hrs and scheduled tylenol for pain control and currently pain improving. Ortho spine assessed patient and recommended nonop management. Per ID rec using daptomycin and meropenem for broad-spectrum coverage, given patient's history of VRE UTI at OSH in the interim of the current and the previous [facility] admissions. Patient endorsed previous history of loose stools during prior OSH hospitalization while he was on Linezolid. He had 2-3x BM/day with pasty stool output. It has improved since he stopped Linezolid and he now has 1-2x BM/day, more solid texture. Since he was readmitted to OSH for VRE UTI, he didnot complete the 6-wk CFX and received Linezolid while inpatient. Was switched to PO augmentin which he continued at the SNF. Patient denies any fevers, chills, SOB, poor appetite, nausea, vomiting, or constipation. CURRENT MEDICATIONS Scheduled Medications: acetaminophen, 650 mg, oral, TID carvediloL, 3.125 mg, oral, BID with meals (bkfst, dinner) DAPTOmycin, 8 mg/kg (Adjusted), intravenous, Q24H MARYANN enoxaparin, 40 mg, subcutaneous, Daily-2100 ferrous sulfate, 65 mg of elemental iron, oral, BID with meals (bkfst, lunch) gabapentin, 300 mg, oral, Nightly linaCLOtide, 145 mcg, oral, Daily meropenem, 1,000 mg, intravenous, Q8H MARYANN pantoprazole DR, 40 mg, oral, BID AC (bkfst, dinner) potassium chloride ER, 40 mEq, oral, Daily sodium chloride 0.9%, 0.5-20 mL, intra-catheter, Q8H MARYANN Continuous Medications: PRN Medications: calcium carbonate ??? cyclobenzaprine ??? ondansetron ODT ??? oxyCODONE OBJECTIVE VITALS / I&Os Most Recent : Vitals: 05/23/21 0800 BP: 126/64 Pulse: 114 Resp: 16 Temp: 38.2 ??C (100.8 ??F) SpO2: 100% 24hr Min/Max: Temp Min: 36.4 ??C (97.5 ??F) Max: 38.2 ??C (100.8 ??F) Pulse Min: 79 Max: 115 BP Min: 108/65 Max: 159/102 Resp Min: 9 Max: 19 SpO2 Min: 91 % Max: 100 % Intake/Output Summary (Last 24 hours) at 05/23/2021 1228 Last data filed at 05/23/2021 0822 Gross per 24 hour Intake 464 ml Output 1100 ml Net -636 ml I/O last 2 completed shifts: In: - Out: 1100 [Urine:850; Drains:250] I/O this shift: In: 464 [P.O.:340; IV Piggyback:124] Out: - PHYSICAL EXAM Constitutional: Morbidly obese patient in bed, mild distress due to pain HEENT: MMM, hearing grossly intact, normal conjunctiva, no scleral icterus, EOMI Cardiovascular: Regular rate and rhythm, normal S1/S2, no murmurs/rubs/gallops. JVP not elevated, no peripheral edema Pulmonary: Clear to auscultation bilaterally, normal work of breathing, no wheezing/rales/rhonchi Abdominal: Soft, non-distended, bowel sounds present. Mildly tender in the RLQ but nontender on theleft abd. No guarding or rebound. No hepatosplenomegaly. IR drain in place in LLQ, exit site clean,blood tinged serosanguinous output observed. Mildly tender to palpation near the exit site. Extremities: Bilateral BKA. Patient has the following chronic wounds/pressure ulcers: back ulcer, large midline ulcer on posterior surface of the thigh, one smaller ulcer on R thigh posterior surface, one hard mass on the R knee covered by erythematous friable soft tissue. No signs of infection in any of the aforementioned wounds. Neurological: AAO x3, CN grossly intact, no focal deficits appreciated Skin: Warm and dry, cap refill <2 seconds (fingers) Psychiatric: Mood and affect normal LABS Recent Labs Lab Units 05/23/21 0831 05/22/21 0800 05/22/21 0800 HEMOGLOBIN g/dL 8.3* < > 10.5* HEMATOCRIT % 26.6* < > 33.7* WBC K/cumm 6.6 < > 8.5 PLATELETS K/cumm 310 -- 389 < > = values in this interval not displayed. Recent Labs Lab Units 05/23/21 0831 SODIUM mmol/L 144 POTASSIUM PLASMA mmol/L 3.9 CHLORIDE mmol/L 104 CO2 mmol/L 25 ANIONGAP mmol/L 15 BUN SERUM mg/dL 12 CREATININE mg/dL 1.07 CALCIUM mg/dL 9.0 Recent Labs Lab Units 05/22/21 0800 ALBUMIN g/dL 4.2 ALK PHOS Units/L 100 AST Units/L 50 ALT Units/L 69* BILIRUBIN TOTAL mg/dL 0.6 Cultures: Lab Results Component Value Date MICROBIOLOGY Preliminary Report: No growth to date. 05/22/2021 MICROBIOLOGY Preliminary Report: No growth to date. 05/22/2021 MICROBIOLOGY Preliminary Report: No growth to date. 05/22/2021 MICROBIOLOGY (.) 04/09/2021 Final Report: Enterococcus species, vancomycin resistant MICROBIOLOGY 04/09/2021 Final Report: Less than 100,000 colonies/mL (clinically insignificant growth based on current clinical standards) IMAGING XR Spine Lumbar 2 or 3 Views Result Date: 05/22/2021 1. Marked osseous destruction centered on L5 and S1 involving the inferior portion of the L5 vertebral body and the superior aspect of the sacrum, which is better evaluated on prior CT of the abdomenand pelvis, consistent with progressive discitis-osteomyelitis. 2. Interval placement of a left abdominal pigtail drainage catheter. Dictated by: Jorge Rizo M.D. The radiology attending physician has personally reviewed this study, and had reviewed and/or edited this written report and agrees with it. Electronically signed by: Leonel Bates M.D. CT Abdomen Pelvis W Contrast Result Date: 05/22/2021 Interval progression of the destructive process centered at L5-S1. Interval increase in size of a fluid collection [...] it. Electronically signed by: Scott Aleman M.D. Image Guided Drainage Peritoneal or Retroperitoneal Fluid Collection Result Date: 05/22/2021 Successful image guided left paracolic gutter fluid collection drainage with placement of a 12-[place] Mac catheter. PLAN: This tube should be flushed with saline 10 mL twice a day. Interventional radiology will continue to follow this patient. Dictated by: Jessee Rivera M.D. OTHER STUDIES ASSESSMENT & PLAN Shawn Casey Jr. Is a 35yo man with h/o T4/T5 paraplegia, bilateral BKA, neurogenic bladder and cystolithiasis s/p suprapubic catheter placement, who was recently treated for spinal abscess and currently presenting with abd pain. ?? #Abd pain #Pericolic fluid collection #Spinal fluid collection, expanded Patient is presenting with a history of acute-onset RLQ pain with imaging evidence of pericolic fluid collection on the left side. Patient can experience abd pain from irritation of pericolic fluid although the location of fluid does not match the location of pain. S/p IR drainage, ID c/s. CT also indicated increased size of spinal abscess, ortho spine recommended nonop management. There are a few possibilities regarding the origin of the fluid collection/infection: it could have started with the skin wound and spread contiguously to the spinal space and eventually to the intra-abdominal space, but it is also possible to start from the UTI/urosepsis and seed the other infection sites secondarily. Prior culture result of E coli makes one suspect an infectious origin from UTI or stool contamination. - Continue dapto/kaykay. - Oxycodone PRN and scheduled tylenol for pain control - BCx x2 sent NGTD. IR aspirate Cx sent, currently showing PMNs without growth. - Monitor drain output - Non-op management for spinal abscess. ?? #Chronic diarrhea Improving since completion of Linezolid at OSH. ?? #HTN Patient has HTN to 180s/100s on admission and is 130s/80s s/p sedation. On home Coreg 3.125mg BID. Previously also on Norvasc, Losartan, Hydralazine, Clonidine but these meds were DC'ed at last hospitalization due to sepsis/hypotension. - Today's BP 110s/70s - Can consider restarting previous home reg after stabilizing acute illness. Also consider HCTZ given survival benefit in AA population. ?? #Paraplegia #Pressure injury of skin/buttocks Chronic pain control with norco. Chronic buttocks wound present and at higher risk for developing new pressure injury given paraplegia and obesity. - Wound consulted and examined patient's chronic wounds - Weight redistribution with EHOB mattress and ROHO sitting surface per wound rec, turn schedule Q2hrs. - Continue to monitor for signs of wound infection Code Status: Full Code Diet: Adult Diet Regular PPX: Lovenox for DVT prophylaxis Dispo: Likely SNF after stabilization SAMIA Mahajan IV 05/23/21 12:28 PM Cosigned by Jenny Arias MD at 05/23/2021 2:56 PM CDT * Plan of Care - Leyda Granados LCSW - 05/23/2021 8:46 AM CDT Social Work consulted for 4 IP stays within the past year. Upon chart review patient was a transferto [facility] from [facility] on 03/28/21 and not a new admission. Patient does not require psychosocial assessment. [employer] following for discharge planning. KELLY Quesada, [facility] [phone] * Plan of Care - Heather Hunt RN - 05/23/2021 3:49 AM CDT Goals: Clinical Goals for the Shift: orient pt to unit Summary:pt oriented to unit. VS stable. Received prn oxycodone for pain and turns maintained. Problem: Health Behavior: Goal: Understanding of discharge [...] improve to fullest extent possible Outcome: Progressing * Post-Procedure Note - Jessee Rivera MD - 05/22/2021 3:26 PM CDT Radiology Brief Post Procedure Note Attending: Genoveva [employer] Identification Technician: Miguel Sedation/Anesthesia: Min Sedation Pre-Op/Pre-Procedure Diagnosis: Left paracolic gutter fluid collection Post-Op/Post-Procedure Diagnosis: same Procedure Performed: image guided percutaneous drainage Procedure Findings: see dictated report Complications: None Estimated Blood Loss: < 30 ml Specimens: sent for culture Condition: Stable Full report to follow. * Medical Student - Yuli Lugo - 05/22/2021 1:45 PM CDT MEDICINE ADMISSION HISTORY & PHYSICAL Date of Admission: 05/22/2021 Date of Service: 05/22/2021 Patient: Shawn Casey Jr. [facility] SUBJECTIVE CHIEF COMPLAINT Abd pain HISTORY OF PRESENT ILLNESS Shawn Casey Jr. Is a 35yo man with h/o T4/T5 paraplegia, bilateral BKA, neurogenic bladder and cystolithiasis s/p suprapubic catheter placement, who was recently treated for spinal abscess and currently presenting with abd pain. Per chart, he was recently hospitalized 03/28-04/11/2021 for spinal abscess and complicated UTI. CT and MRI from the previous hospitalization indicated destructive processes w/ fluid collection at L5/S1. IR aspirated the complex spinal fluid collection on 03/31 which grew kim-susceptible E coli. No surg ical/procedural source control was performed due to risk of exacerbation and low likelihood of effective drainage. Also had complicated UTI w/ sepsis (UCx and BCx negative) stabilized with IVF and abx. Stool Cx VRE+. He received vanc/kaykay 03/28 and then switched to CTX 04/07.?Plan for 6 wks of abxthrough PICC (approximately through 05/09/21). Started on vanc/kaykay in ED. CT acquired in the ED showed paraspinal fluid collection that increasedin size c/w progression of the previous spinal abscess. Also found to have a pericolic fluid collection on the left side. Patient's pericolic fluid was drained by IR. On interview, patient was still fairly drowsy from anesthesia. Patient complains of a 2-day historyof intolerable, 9/10 RLQ pain and also endorses some flank pain. His pain radiates to the groins which is similar to his previous presentations of stones. His back pain and flank pain are not as severe as his abdominal pain and only bother him when he changes positions. He also endorses some chillsand emesis x1 as well as poor PO intake. He endorses chronic diarrhea that is unchanged from baseline, which he attributed to Linzess. Patient denies any fevers, CP, SOB, constipation, increased/decreased UOP or dysuria. PAST MEDICAL/SURGICAL HISTORY T4/T5 paraplegia Bilateral BKA Neurogenic bladder s/p neobladder, cystolithotomy, and suprapubic catheter placement Cholecystectomy REVIEW OF SYSTEMS Per HPI; all other systems negative. FAMILY HISTORY DM, esophageal cancer, prostate cancer SOCIAL HISTORY [facility] resident, not using alcohol. Former marijuana user but has not used since 02/2021. Former cigarette smoker. Started smoking 0.5 pk/day since age 20 and quit in 2018. ALLERGIES Allergies Allergen Reactions ??? Metoclopramide Face tingling HOME MEDICATIONS *HOME MEDICATIONS : amoxicillin-clavulanate (AUGMENTIN) 875-125 mg per tablet calcium carbonate (TUMS) 500 mg calcium (200 mg of elemental calcium) chewable tablet carvediloL (COREG) 3.125 mg tablet cyclobenzaprine (FLEXERIL) 5 mg tablet ferrous sulfate 325 mg (65 mg of elemental iron) tablet gabapentin (NEURONTIN) 300 mg capsule heparin 10 unit/mL syringe HYDROcodone-acetaminophen (NORCO) 10-325 mg per tablet linaCLOtide (LINZESS) 145 mcg capsule ondansetron ODT (ZOFRAN-ODT) 4 mg disintegrating tablet pantoprazole DR (PROTONIX) 40 mg EC tablet polyethylene glycol (MIRALAX) 17 gram packet potassium chloride ER (KLOR-CON) 20 mEq CR tablet senna-docusate (PERICOLACE) 8.6-50 mg sodium chloride 0.9% injection sucralfate (CARAFATE) 1 gram tablet OBJECTIVE VITALS / I&Os Most Recent : Vitals: 05/22/21 1340 BP: Pulse: 104 Resp: Temp: 36.4 ??C (97.5 ??F) SpO2: 100% 24hr Min/Max: Temp Min: 36.4 ??C (97.5 ??F) Max: 36.6 ??C (97.9 ??F) Pulse Min: 55 Max: 115 BP Min: 140/87 Max: 188/105 Resp Min: 18 Max: 18 SpO2 Min: 97 % Max: 100 % No intake or output data in the 24 hours ending 05/22/21 1345 No intake/output data recorded. No intake/output data recorded. PHYSICAL EXAM Constitutional: Drowsy, obese, lying in bed HEENT: MMM, hearing grossly intact, normal conjunctiva, no scleral icterus, EOMI Cardiovascular: Regular tachycardia and rhythm, normal S1/S2, no murmurs/rubs/gallops. JVP not elevated, no peripheral edema Pulmonary: Clear to auscultation bilaterally, normal work of breathing, no wheezing/rales/rhonchi Abdominal: Soft, non-distended, bowel sounds present. Mild diffuse tenderness throughout the RLQ. IR drain in place on the L side with bloody drain. Extremities: Bilateral BKA with stumps well healed and clean. Unable to examine the documented buttock/thigh wound given difficulty with repositioning. Skin: Warm and dry, cap refill <2 seconds Neurological: AAO x3, CN grossly intact, no focal deficits appreciated Psychiatric: Mood and affect normal LABS Recent Labs Lab Units 05/22/21 0800 HEMOGLOBIN g/dL 10.5* HEMATOCRIT % 33.7* WBC K/cumm 8.5 PLATELETS K/cumm 389 Recent Labs Lab Units 05/22/21 0800 SODIUM mmol/L 141 POTASSIUM PLASMA mmol/L 4.5 CHLORIDE mmol/L 102 CO2 mmol/L 24 ANIONGAP mmol/L 15 BUN SERUM mg/dL 16 CREATININE mg/dL 0.91 CALCIUM mg/dL 10.2 Recent Labs Lab Units 05/22/21 0800 ALBUMIN g/dL 4.2 ALK PHOS Units/L 100 AST Units/L 50 ALT Units/L 69* BILIRUBIN TOTAL mg/dL 0.6 Cultures: Lab Results Component Value Date MICROBIOLOGY (.) 04/09/2021 Final Report: Enterococcus species, vancomycin resistant MICROBIOLOGY 04/09/2021 Final Report: Less than 100,000 colonies/mL (clinically insignificant growth based on current clinical standards) MICROBIOLOGY Final Report: No growth 04/09/2021 MICROBIOLOGY Final Report: No growth 04/09/2021 MICROBIOLOGY Final Report: No growth 04/07/[address] Abdomen Pelvis W Contrast Result Date: 05/22/2021 Interval progression of the destructive process centered at L5-S1. Interval increase in size of a fluid collection [...] it. Electronically signed by: Scott Aleman M.D. OTHER STUDIES ASSESSMENT & PLAN Shawn Casey Jr. Is a 35yo man with h/o T4/T5 paraplegia, bilateral BKA, neurogenic bladder and cystolithiasis s/p suprapubic catheter placement, who was recently treated for spinal abscess and currently presenting with abd pain. #Abd pain #Pericolic fluid collection #Spinal fluid collection, expanded Patient is presenting with a history of acute-onset RLQ pain with imaging evidence of pericolic fluid collection on the left side. Patient can experience abd pain from irritation of pericolic fluid although the location of fluid does not match the location of pain. S/p IR drainage, ID c/s. CT also indicated increased size of spinal abscess, ortho spine recommended nonop management. There are a few possibilities regarding the origin of the fluid collection/infection: it could have started with the skin wound and spread contiguously to the spinal space and eventually to the intra-abdominal space, but it is also possible to start from the UTI/urosepsis and seed the other infection sites secondarily. Prior culture result of E coli makes one suspect an infectious origin from UTI or stool contamination. - Receiving broad spectrum coverage of Vanc/kaykay in the ED. Per ID rec will switch to Dapto/kaykay for VRE coverage due to previous positive stool culture results. - BCx x2 sent. IR aspirate Cx sent. - Monitor drain output - Non-op management for spinal abscess. - Can DC home augmentin given current IV broad spectrum abx #Chronic diarrhea Patient endorses chronic diarrhea a/w Linzess. Patient is also on a bowel regimen. Given h/o longstanding broad spectrum abx use need to consider C diff. - Continue to monitor stool output, send C diff if clinically not improving #HTN Patient has HTN to 180s/100s on admission and is 130s/80s s/p sedation. On home Coreg 3.125mg BID. Previously also on Norvasc, Losartan, Hydralazine, Clonidine but these meds were DC'ed at last hospitalization due to sepsis/hypotension. - Can consider restarting previous home reg after stabilizing acute illness. Also consider HCTZ given survival benefit in AA population. #Paraplegia #Pressure injury of skin/buttocks Chronic pain control with norco. Chronic buttocks wound present and at higher risk for developing new pressure injury given paraplegia and obesity. - Oxycodone PRN and scheduled tylenol for pain control - Weight redistribution with foam wedge, turn schedule Code Status: Full Code Diet: Regular Diet PPX: Lovenox for DVT prophylaxis Rosalina Lugo [id number] 05/22/21 1:45 PM Cosigned by Jenny Arias MD at 05/22/2021 9:50 PM CDT * Pre-Procedure Note - Jessee Rivera MD - 05/22/2021 11:58 AM CDT Radiology Long Sedation Form Indication: Abdominal fluid collection Planned Procedure: Image guided percutaneous drainage Planned Sedation/Anesthesia: minimal sedation History: 35 year old man with paraplegia and bilateral below the knee amputation presenting with 2 days of worsening abdominal pain. PMH/PSH: No past medical history on file. Past Surgical History: Procedure Laterality Date ??? ASPIRATION OF ABSCESS HEMATOMA CYST N/A 03/31/2021 ROS: Review of systems per HPI and otherwise all other systems are negative Allergies: Metoclopramide Current Meds: No outpatient medications have been marked as taking for the 05/22/21 encounter (Appointment) with [facility] - TBD PROCEDURES. Physical exam: Temp: [36.6 ??C (97.9 ??F)] 36.6 ??C (97.9 ??F) Pulse: [55-115] 59 Resp: [18] 18 BP: (140-188)/(87-126) 164/108 GEN: NAD HEENT: Dry MM CV: regular rate Resp: nonlabored breathing Abd: abdominal distention, mild TTP Most Recent Vitals: There were no vitals filed for this visit. Airway Assessment: normal Labs/Imaging: Laboratory review: Lab results in the last 12 hours: Recent Results (from the past 12 hour(s)) CBC with auto differential Collection Time: 05/22/21 8:00 AM Result Value Ref Range WBC 8.5 3.8 - 9.9 K/cumm Hgb 10.5 (L) 13.0 - 17.5 g/dL Hct 33.7 (L) 38.9 - 50.3 % Plt 389 150 - 400 K/cumm MPV 11.8 9.1 - 12.3 fL RBC 4.21 (L) 4.30 - 5.80 M/cumm MCV 80.0 (L) 81.3 - 96.4 fL MCH 24.9 (L) 27.1 - 33.3 pg MCHC 31.2 (L) 32.3 - 35.7 g/dL RDW CV 15.9 (H) 11.1 - 14.9 % RDW SD 46.0 35.7 - 48.1 fL NRBC abs 0.00 0.00 - 0.01 K/cumm Comprehensive metabolic panel Collection Time: 05/22/21 8:00 AM Result Value Ref Range Sodium 141 135 - 145 mmol/L Potassium, pl 4.5 3.3 - 4.9 mmol/L Chloride 102 97 - 110 mmol/L CO2 24 22 - 32 mmol/L Anion gap 15 2 - 15 mmol/L BUN 16 8 - 25 mg/dL Creatinine 0.91 0.80 - 1.30 mg/dL Glucose 106 70 - 199 mg/dL Calcium 10.2 8.5 - 10.3 mg/dL Bilirubin, total 0.6 0.1 - 1.2 mg/dL Protein, pl 9.2 (H) 6.5 - 8.5 g/dL Albumin 4.2 3.5 - 5.0 g/dL Alk phos 100 40 - 130 Units/L ALT 69 (H) 7 - 55 Units/L AST 50 10 - 50 Units/L Lipase Collection Time: 05/22/21 8:00 AM Result Value Ref Range Lipase 34 10 - 99 Units/L Sepsis Lactate w/ Reflex Collection Time: 05/22/21 8:00 AM Result Value Ref Range Sepsis Lactate 1.3 0.7 - 2.0 mmol/L Differential, auto Collection Time: 05/22/21 8:00 AM Result Value Ref Range Neutrophil abs 6.9 (H) 1.7 - 6.5 K/cumm Imm gran abs 0.0 0.0 - 0.1 K/cumm Lymphocyte abs 1.1 0.8 - 3.3 K/cumm Monocyte abs 0.4 0.2 - 0.8 K/cumm Eosinophil abs 0.1 0.0 - 0.5 K/cumm Basophil abs 0.0 0.0 - 0.1 K/cumm Neutrophil pct 81.3 % Imm gran pct 0.5 % Lymphocyte pct 12.5 % Monocyte pct 4.8 % Eosinophil pct 0.7 % Basophil pct 0.2 % Assessment: 35 year old man with paraplegia and bilateral below the knee amputation presenting with2 days of worsening abdominal pain. CT abdomen pelvis demonstrates a left paracolic gutter fluid collection. Request for image guided percutaneous drainage. ASA Score: ASA 2 - Patient with mild systemic disease with no functional limitations NPO time: since this AM Benefits, risks and alternatives of procedure and planned sedation have been discussed with the patient and/or their retention representative. All questions answered and they agree to proceed. * ED Re-evaluation Note - Daniel Llanes MD - 05/22/2021 11:15 AM CDT ED Re-evaluation Accepting from House. Patient with paraplegia, recently treated for spinal abscess. Here with abd pain, found to have worsening of the abscess with discitis. Getting abx, awaiting spine consult. [facility]be admitted. Daniel Llanes MD 05/22/21 1116 * Pre-Procedure Note - Jessee Rivera MD - 05/22/2021 11:15 AM CDT Radiology Long Sedation Form Indication: Abdominal fluid collection Planned Procedure: Image guided percutaneous drainage Planned Sedation/Anesthesia: minimal sedation History: 35 year old man with paraplegia and bilateral below the knee amputation presenting with 2 days of worsening abdominal pain. PMH/PSH: No past medical history on file. Past Surgical History: Procedure Laterality Date ??? ASPIRATION OF ABSCESS HEMATOMA CYST N/A 03/31/2021 ROS: Review of systems per HPI and otherwise all other systems are negative Allergies: Metoclopramide Current Meds: No outpatient medications have been marked as taking for the 05/22/21 encounter (Appointment) with [facility] S IR - TBD PROCEDURES. Physical exam: Temp: [36.6 ??C (97.9 ??F)] 36.6 ??C (97.9 ??F) Pulse: [55-115] 59 Resp: [18] 18 BP: (140-188)/(87-126) 164/108 GEN: NAD HEENT: Dry MM CV: regular rate Resp: nonlabored breathing Abd: abdominal distention, mild TTP Most Recent Vitals: There were no vitals filed for this visit. Airway Assessment: normal Labs/Imaging: Laboratory review: Lab results in the last 12 hours: Recent Results (from the past 12 hour(s)) CBC with auto differential Collection Time: 05/22/21 8:00 AM Result Value Ref Range WBC 8.5 3.8 - 9.9 K/cumm Hgb 10.5 (L) 13.0 - 17.5 g/dL Hct 33.7 (L) 38.9 - 50.3 % Plt 389 150 - 400 K/cumm MPV 11.8 9.1 - 12.3 fL RBC 4.21 (L) 4.30 - 5.80 M/cumm MCV 80.0 (L) 81.3 - 96.4 fL MCH 24.9 (L) 27.1 - 33.3 pg MCHC 31.2 (L) 32.3 - 35.7 g/dL RDW CV 15.9 (H) 11.1 - 14.9 % RDW SD 46.0 35.7 - 48.1 fL NRBC abs 0.00 0.00 - 0.01 K/cumm Comprehensive metabolic panel Collection Time: 05/22/21 8:00 AM Result Value Ref Range Sodium 141 135 - 145 mmol/L Potassium, pl 4.5 3.3 - 4.9 mmol/L Chloride 102 97 - 110 mmol/L CO2 24 22 - 32 mmol/L Anion gap 15 2 - 15 mmol/L BUN 16 8 - 25 mg/dL Creatinine 0.91 0.80 - 1.30 mg/dL Glucose 106 70 - 199 mg/dL Calcium 10.2 8.5 - 10.3 mg/dL Bilirubin, total 0.6 0.1 - 1.2 mg/dL Protein, pl 9.2 (H) 6.5 - 8.5 g/dL Albumin 4.2 3.5 - 5.0 g/dL Alk phos 100 40 - 130 Units/L ALT 69 (H) 7 - 55 Units/L AST 50 10 - 50 Units/L Lipase Collection Time: 05/22/21 8:00 AM Result Value Ref Range Lipase 34 10 - 99 Units/L Sepsis Lactate w/ Reflex Collection Time: 05/22/21 8:00 AM Result Value Ref Range Sepsis Lactate 1.3 0.7 - 2.0 mmol/L Differential, auto Collection Time: 05/22/21 8:00 AM Result Value Ref Range Neutrophil abs 6.9 (H) 1.7 - 6.5 K/cumm Imm gran abs 0.0 0.0 - 0.1 K/cumm Lymphocyte abs 1.1 0.8 - 3.3 K/cumm Monocyte abs 0.4 0.2 - 0.8 K/cumm Eosinophil abs 0.1 0.0 - 0.5 K/cumm Basophil abs 0.0 0.0 - 0.1 K/cumm Neutrophil pct 81.3 % Imm gran pct 0.5 % Lymphocyte pct 12.5 % Monocyte pct 4.8 % Eosinophil pct 0.7 % Basophil pct 0.2 % Assessment: 35 year old man with paraplegia and bilateral below the knee amputation presenting with2 days of worsening abdominal pain. CT abdomen pelvis demonstrates a left paracolic gutter fluid collection. Request for image guided percutaneous drainage. ASA Score: ASA 2 - Patient with mild systemic disease with no functional limitations NPO time: since this AM Benefits, risks and alternatives of procedure and planned sedation have been discussed with the patient and/or their retention representative. All questions answered and they agree to proceed. * ED Procedure Note - Kailyn Crews MD PhD - 05/22/2021 7:48 AM CDT Associated Order(s): ECG 12 lead Procedure ECG 12 lead Date/Time: 05/22/2021 7:48 AM Performed by: Kailyn Crews MD PhD Authorized by: Darci Tomlin MD Rate: ECG rate: 62 ECG rate assessment: normal Rhythm: Rhythm: sinus rhythm Ectopy: Ectopy: none QRS: QRS axis: Normal QRS intervals: Normal Conduction: Conduction: normal ST segments: ST segments: Normal T waves: T waves: normal Previous ECG: Previous ECG: Compared to current Date of previous EC04/09/2021 Interpretation: Interpretation: No significant change Recommended Follow-up: Recommended follow up: further workup in the ED Kailyn Crews MD PhD 05/22/21 0750 documented in this encounter Plan of Treatment Not on file documented as of this encounter Procedures Procedure Name Priority Date/Time Associated Diagnosis Comments DIFFERENTIAL AUTO Routine 05/27/2021 9:5 9 PM CDT CBC WITH AUTO DIFFERENTIAL Routine 05/27/2021 9:59 PM CDT BASIC METABOLIC PANEL Routine 05/27/2021 9:[address] ABDOMEN PELVIS W CONTRAST Pending Discharge 05/27/2021 3:06 PM CDT COVID-19 CORONAVIRUS RNA Routine 05/27/2021 12:53 PM CDT DIFFERENTIAL AUTO Routine 05/26/2021 8:2 8 PM CDT CBC WITH AUTO DIFFERENTIAL Routine 05/26/2021 8:28 PM CDT BASIC METABOLIC PANEL Routine 05/26/2021 8:28 PM CDT CREATINE KINASE (CK), TOTAL Timed 05/26/2021 7:41 AM CDT DIFFERENTIAL AUTO Routine 05/25/2021 8:2 5 PM CDT CBC WITH AUTO DIFFERENTIAL Routine 05/25/2021 8:25 PM CDT BASIC METABOLIC PANEL Routine 05/25/2021 8:25 PM CDT DIFFERENTIAL AUTO Routine 05/25/2021 1:5 5 AM CDT CBC WITH AUTO DIFFERENTIAL Routine 05/25/2021 1:55 AM CDT BASIC METABOLIC PANEL Routine 05/25/2021 1:55 AM CDT DIFFERENTIAL AUTO Routine 05/23/2021 9:2 5 PM CDT CBC WITH AUTO DIFFERENTIAL Routine 05/23/2021 9:25 PM CDT BASIC METABOLIC PANEL Routine 05/23/2021 9:25 PM CDT C. DIFFICILE TESTING Routine 05/23/2021 7:11 PM CDT VRE CULTURE, SURVEILLANCE Routine 05/23/2021 7:11 PM CDT DIFFERENTIAL AUTO STAT 05/23/2021 8:3 1 AM CDT CBC WITH AUTO DIFFERENTIAL STAT 05/23/2021 8:31 AM CDT CREATINE KINASE (CK), TOTAL STAT 05/23/2021 8:31 AM CDT BASIC METABOLIC PANEL STAT 05/23/2021 8:31 AM CDT CREATINE KINASE (CK), TOTAL Routine 05/23/2021 1:09 AM CDT POCT GLUCOSE DEVICE Routine 05/22/2021 10:01 PM CDT POCT GLUCOSE DEVICE Routine 05/22/2021 6 :24 PM CDT COVID-19 CORONAVIRUS RNA Routine 05/22/2021 5:06 PM CDT XR SPINE LUMBAR 2 OR 3 VIEWS ED 05/22/2021 5:02 PM CDT IMAGE GUIDED DRAINAGE PERITONEAL OR RETROPERITONEAL FLUID COLLECTION ED 05/22/2021 3:31 PM CDT AEROBIC AND ANAEROBIC CULTURE AND GRAM STAIN Routine 05/22/2021 2:45 PM CDT URINALYSIS AND REFLEX TO MICROSCOPIC AND CULTURE STAT 05/22/2021 10:[address] ABDOMEN PELVIS W CONTRAST ED 05/22/2021 9:05 AM CDT SEPSIS LACTATE WITH REFLEX STAT 05/22/2021 8:00 AM CDT DIFFERENTIAL AUTO STAT 05/22/2021 8:0 0 AM CDT CBC WITH AUTO DIFFERENTIAL STAT 05/22/2021 8:00 AM CDT BLOOD CULTURE STAT 05/22/2021 8:00 AM CDT BLOOD CULTURE STAT 05/22/2021 8:00 AM CDT LIPASE STAT 05/22/2021 8:00 AM CDT COMPREHENSIVE METABOLIC PANEL STAT 05/22/2021 8:00 AM CDT ECG 12-LEAD STAT 05/22/2021 7:48 AM CDT documented in this encounter Results * Differential, auto (05/27/2021 9:59 PM CDT) Neutrophil abs 5.1 1.7 - 6.5 K/cumm [facility] Imm gran abs 0.0 0.0 - 0.1 K/cumm [facility] Lymphocyte abs 2.0 0.8 - 3.3 K/cumm [facility] Monocyte abs 0.5 0.2 - 0.8 K/cumm [facility] Eosinophil abs 0.5 0.0 - 0.5 K/cumm [facility] Basophil abs 0.0 0.0 - 0.1 K/cumm [facility] Neutrophil pct 63.1 % [facility] Comment: Interpretive Data Percent cell count reference ranges are not reported, since discordance with absolute values may lead to misinterpretation of CBC data. Current Interpretive Data was last revised on 2018. Imm gran pct 0.5 % [facility] Comment: Interpretive Data Percent cell count reference ranges are not reported, since discordance with absolute values may lead to misinterpretation of CBC data. Current Interpretive Data was last revised on 2018. Lymphocyte pct 24.4 % [facility] Comment: Interpretive Data Percent cell count reference ranges are not reported, since discordance with absolute values may lead to misinterpretation of CBC data. Current Interpretive Data was last revised on 2018. Monocyte pct 5.8 % [facility] Comment: Interpretive Data Percent cell count reference ranges are not reported, since discordance with absolute values may lead to misinterpretation of CBC data. Current Interpretive Data was last revised on 2018. Eosinophil pct 5.8 % [facility] Comment: Interpretive Data Percent cell count reference ranges are not reported, since discordance with absolute values may lead to misinterpretation of CBC data. Current Interpretive Data was last revised on 2018. Basophil pct 0.4 % [facility] Comment: Interpretive Data Percent cell count reference ranges are not reported, since discordance with absolute values may lead to misinterpretation of CBC data. Current Interpretive Data was last revised on 2018. Blood specimen (specimen) 05/27/2021 9:59 PM CDT 05/27/2021 10:18 PM CDT Jenny Arias MD LAB BLOOD ORDERABLES Jessica l Result [facility] [place] [address] * (ABNORMAL) Basic metabolic panel (05/27/2021 9:59 PM CDT) Sodium 139 135 - 145 mmol/L [facility] Potassium, pl 4.6 3.3 - 4.9 mmol/L [facility] Chloride 103 97 - 110 mmol/L [facility] CO2 27 22 - 32 mmol/L [facility] Anion gap 9 2 - 15 mmol/L [facility] BUN 18 8 - 25 mg/dL [facility] Creatinine 0.74(L) 0.80 - 1.30 mg/dL [facility] Glucose 93 70 - 199 mg/dL [facility] Comment: Interpretive Data Fasting glucose >/= 126 [...] 2017. Calcium 8.6 8.5 - 10.3 mg/dL [facility] Blood specimen (specimen) 05/27/2021 9:59 PM CDT 05/27/2021 10:18 PM CDT Jenny Arias MD LAB BLOOD ORDERABLES Jessica l Result [facility] [place] [address] * (ABNORMAL) CBC with auto differential (05/27/2021 9:59 PM CDT) Pathologist [facility] WBC 8.0 3.8 - 9.9 K/cumm [facility] Hgb 8.9(L) 13.0 - 17.5 g/dL [facility] Hct 29.3(L) 38.9 - 50.3 % [facility] Plt 320 150 - 400 K/cumm [facility] MPV 10.8 9.1 - 12.3 fL [facility] RBC 3.69(L) 4.30 - 5.80 M/cumm [facility] MCV 79.4(L) 81.3 - 96.4 fL [facility] MCH 24.1(L) 27.1 - 33.3 pg [facility] MCHC 30.4(L) 32.3 - 35.7 g/dL [facility] RDW CV 16.3(H) 11.1 - 14.9 % [facility] RDW SD 47.0 35.7 - 48.1 fL [facility] NRBC abs 0.00 0.00 - 0.01 K/cumm [facility] Blood specimen (specimen) 05/27/2021 9:59 PM CDT 05/27/2021 10:18 PM CDT us Jenny Arias MD LAB BLOOD ORDERABLES Jessica l Result [facility] [place] [address] * CT Abdomen Pelvis W Contrast (05/27/2021 3:06 PM CDT) Anatomical Region Laterality Modality Body N/A Computed Tomogra phy 05/27/2021 4:21 PM CDT Impressions 05/27/2021 4:51 PM CDT 1. ??Interval reduction in the left paracolic gutter fluid collection status post drain placement. 2. ??Stable appearance of presacral and posterior fluid collections, and decubitus ulcerations 3. ??Stable appearance of kidney cysts, with attention given on follow up Dictated by: Wilton Patterson MD The radiology attending physician has personally reviewed this study, and had reviewed and/or edited this written report and agrees with it. Electronically signed by: Berta Cleaning M.D. Narrative 05/27/2021 4:51 PM CDT EXAMINATION: ??Computed tomography of the abdomen and pelvis with intravenous contrast HISTORY: 35-year-old paraplegic male, history of neobladder, spinal abscess. Assessment of fluid collection after interval drain placement. TECHNIQUE: ??Transaxial computed tomographic images of the abdomen and pelvis were obtained with intravenous contrast according to the standard protocol after the uneventful administration of 125 mL Opti-Ray 350 intravenous contrast. COMPARISON: CT abdomen pelvis with contrast 05/22/2021 FINDINGS: Heart size is normal. ??There is no pleural effusions or pneumothorax. The liver enhances appropriately no focal lesions. The gallbladder surgically absent, with interval reduction in pneumobilia. ??The adrenal glands, spleen, pancreas are normal. ??There are benign appearing intermediate density post-contrasted cysts in the kidneys have been seen on previous studies. ??Attention will be given on follow-up. ??There is no evidence of hydronephrosis. ??The stomach, small intestine, large intestine are normal. ??Significant fatty atrophy of the paraspinal muscles. ??Suprapubic catheter is in the same position, and the IVC filter is in stable position. Unchanged areas of heterotropic ossifications the hips and degenerative changes in the spine. Previously described left-sided pericolic gutter fluid collection measuring 6 x 7 cm is status post percutaneous drainage placement. Subsequently there is an interval reduction in the fluid collection described above, now measuring 4 x 1.5 cm transverse AP, and 10 cm craniocaudad. ??Notably, this minimal fluid collection abuts and tethers the junction of the sigmoid and descending colon best seen at table position -359.4. ??This may represent fistulization. Stable large soft tissue, calcified, presacral process with extensive sacral destruction, and stable posterior subcutaneous tissue fluid collection seen at table position -229.4. Unchanged appearance of decubitus skin ulceration. Procedure Note Berta Cleaning MD - 05/27/2021 EXAMINATION: Computed tomography of the abdomen and [...] 7 cm is status post percutaneous drainage placement. Subsequently there is an interval reduction in the [...] -229.4. Unchanged appearance of decubitus skin ulceration. IMPRESSION: 1. Interval reduction in the left paracolic [...] it. Electronically signed by: Berta Cleaning M.D. Trino Baird MD IMG CT PROCEDURES Final Result * COVID-19 Coronavirus RNA Nasopharyngeal (05/27/2021 12:53 PM CDT) COVID-19 RNA Negative Negative [facility] Comment: Interpretive data: Synonyms for this test include: PCR and NAAT . ??This test is performed using the [employer] Xpert Xpress assay. This is a real-time [...] December 12, 2020. First COVID-19 test? No [facility] Employeed in healthcare? No [facility] status[facility] No [facility] Group care resident? Yes [facility] Hospitalized? Yes [facility] Is patient in ICU? No [facility] Symptomatic as defined by CDC? No [facility] Nasopharyngeal 05/27/2021 12 :53 PM CDT 05/27/2021 1:32 PM CDT Narrative [facility] - 05/27/2021 3:40 PM CDT What is the reason for testing?->Resident of congregate living facility, e.g. detention, SNF Trino Baird MD LAB MICROBIOLOGY - GENE RAL ORDERABLES Final Result [facility] Department [place] [address] * Differential, auto (05/26/2021 8:28 PM CDT) Neutrophil abs 4.5 1.7 - 6.5 K/cumm [facility] Imm gran abs 0.0 0.0 - 0.1 K/cumm [facility] Lymphocyte abs 1.7 0.8 - 3.3 K/cumm [facility] Monocyte abs 0.5 0.2 - 0.8 K/cumm [facility] Eosinophil abs 0.4 0.0 - 0.5 K/cumm [facility] Basophil abs 0.0 0.0 - 0.1 K/cumm [facility] Neutrophil pct 63.1 % [facility] Comment: Interpretive Data Percent cell count reference ranges are not reported, since discordance with absolute values may lead to misinterpretation of CBC data. Current Interpretive Data was last revised on 2018. Imm gran pct 0.4 % [facility] Comment: Interpretive Data Percent cell count reference ranges are not reported, since discordance with absolute values may lead to misinterpretation of CBC data. Current Interpretive Data was last revised on 2018. Lymphocyte pct 23.4 % [facility] Comment: Interpretive Data Percent cell count reference ranges are not reported, since discordance with absolute values may lead to misinterpretation of CBC data. Current Interpretive Data was last revised on 2018. Monocyte pct 7.6 % [facility] Comment: Interpretive Data Percent cell count reference ranges are not reported, since discordance with absolute values may lead to misinterpretation of CBC data. Current Interpretive Data was last revised on 2018. Eosinophil pct 5.4 % [facility] Comment: Interpretive Data Percent cell count reference ranges are not reported, since discordance with absolute values may lead to misinterpretation of CBC data. Current Interpretive Data was last revised on 2018. Basophil pct 0.1 % [facility] Comment: Interpretive Data Percent cell count reference ranges are not reported, since discordance with absolute values may lead to misinterpretation of CBC data. Current Interpretive Data was last revised on 2018. Blood specimen (specimen) 05/26/2021 8:28 PM CDT 05/26/2021 8:41 PM CDT us Jenny Arias MD LAB BLOOD ORDERABLES Jessica l [facility] [place] [address] * (ABNORMAL) Basic metabolic panel (05/26/2021 8:28 PM CDT) [facility] Sodium 140 135 - 145 mmol/L [facility] Potassium, pl 4.6 3.3 - 4.9 mmol/L [facility] Chloride 104 97 - 110 mmol/L [facility] CO2 24 22 - 32 mmol/L [facility] Anion gap 12 2 - 15 mmol/L [facility] BUN 11 8 - 25 mg/dL [facility] Creatinine 0.71(L) 0.80 - 1.30 mg/dL [facility] Glucose 97 70 - 199 mg/dL [facility] Comment: Interpretive Data Fasting glucose >/= 126 [...] 2017. Calcium 8.6 8.5 - 10.3 mg/dL [facility] Blood specimen (specimen) 05/26/2021 8:28 PM CDT 05/26/2021 8:41 PM CDT us Jenny Arias MD LAB BLOOD ORDERABLES Jessica cruz Result [facility] [place] [address] * (ABNORMAL) CBC with auto differential (05/26/2021 8:28 PM CDT) [facility] WBC 7.1 3.8 - 9.9 K/cumm [facility] Hgb 8.9(L) 13.0 - 17.5 g/dL [facility] Hct 28.6(L) 38.9 - 50.3 % [facility] Plt 327 150 - 400 K/cumm [facility] MPV 11.0 9.1 - 12.3 fL [facility] RBC 3.61(L) 4.30 - 5.80 M/cumm [facility] MCV 79.2(L) 81.3 - 96.4 fL [facility] MCH 24.7(L) 27.1 - 33.3 pg [facility] MCHC 31.1(L) 32.3 - 35.7 g/dL [facility] RDW CV 16.1(H) 11.1 - 14.9 % [facility] RDW SD 45.9 35.7 - 48.1 fL [facility] NRBC abs 0.00 0.00 - 0.01 K/cumm [facility] Blood specimen (specimen) 05/26/2021 8:28 PM CDT 05/26/2021 8:41 PM CDT Jenny Arias MD LAB BLOOD ORDERABLES Jessica l Result [facility] Department [place] [place] [address] * Creatine kinase (CK), total (05/26/2021 7:41 AM CDT) CK 45 40 - 300 Units/L [facility] Blood specimen (specimen) 05/26/2021 7:41 AM CDT 05/26/2021 7:58 AM CDT Peter Mcgrath MD LAB BLOOD ORDERABLES F inal Result [facility] Department [place] [address] * Differential, auto (05/25/2021 8:25 PM CDT) Neutrophil abs 4.3 1.7 - 6.5 K/cumm [facility] Imm gran abs 0.0 0.0 - 0.1 K/cumm [facility] Lymphocyte abs 1.6 0.8 - 3.3 K/cumm [facility] Monocyte abs 0.7 0.2 - 0.8 K/cumm [facility] Eosinophil abs 0.4 0.0 - 0.5 K/cumm [facility] Basophil abs 0.0 0.0 - 0.1 K/cumm [facility] Neutrophil pct 61.4 % [facility] Comment: Interpretive Data Percent cell count reference ranges are not reported, since discordance with absolute values may lead to misinterpretation of CBC data. Current Interpretive Data was last revised on 2018. Imm gran pct 0.3 % [facility] Comment: Interpretive Data Percent cell count reference ranges are not reported, since discordance with absolute values may lead to misinterpretation of CBC data. Current Interpretive Data was last revised on 2018. Lymphocyte pct 22.8 % [facility] Comment: Interpretive Data Percent cell count reference ranges are not reported, since discordance with absolute values may lead to misinterpretation of CBC data. Current Interpretive Data was last revised on 2018. Monocyte pct 9.4 % [facility] Comment: Interpretive Data Percent cell count reference ranges are not reported, since discordance with absolute values may lead to misinterpretation of CBC data. Current Interpretive Data was last revised on 2018. Eosinophil pct 5.7 % [facility] Comment: Interpretive Data Percent cell count reference ranges are not reported, since discordance with absolute values may lead to misinterpretation of CBC data. Current Interpretive Data was last revised on 2018. Basophil pct 0.4 % [facility] Comment: Interpretive Data Percent cell count reference ranges are not reported, since discordance with absolute values may lead to misinterpretation of CBC data. Current Interpretive Data was last revised on 2018. Blood specimen (specimen) 05/25/2021 8:25 PM CDT 05/25/2021 8:38 PM CDT Jenny Arias MD LAB BLOOD ORDERABLES Jessica l Result [facility] [place] [address] * (ABNORMAL) Basic metabolic panel (05/25/2021 8:25 PM CDT) Pathologist [facility] Sodium 140 135 - 145 mmol/L [facility] Potassium, pl 4.3 3.3 - 4.9 mmol/L [facility] Chloride 104 97 - 110 mmol/L [facility] CO2 25 22 - 32 mmol/L [facility] Anion gap 11 2 - 15 mmol/L [facility] BUN 11 8 - 25 mg/dL [facility] Creatinine 0.78(L) 0.80 - 1.30 mg/dL [facility] Glucose 103 70 - 199 mg/dL [facility] Comment: Interpretive Data Fasting glucose >/= 126 [...] 2017. Calcium 8.5 8.5 - 10.3 mg/dL [facility] Blood specimen (specimen) 05/25/2021 8:25 PM CDT 05/25/2021 8:38 PM CDT us Jenny Arias MD LAB BLOOD ORDERABLES Jessica l Result [facility] [place] [address] * (ABNORMAL) CBC with auto differential (05/25/2021 8:25 PM CDT) [facility] WBC 7.1 3.8 - 9.9 K/cumm [facility] Hgb 8.5(L) 13.0 - 17.5 g/dL [facility] Hct 27.9(L) 38.9 - 50.3 % [facility] Plt 298 150 - 400 K/cumm [facility] MPV 10.7 9.1 - 12.3 fL [facility] RBC 3.50(L) 4.30 - 5.80 M/cumm [facility] MCV 79.7(L) 81.3 - 96.4 fL [facility] MCH 24.3(L) 27.1 - 33.3 pg [facility] MCHC 30.5(L) 32.3 - 35.7 g/dL [facility] RDW CV 15.9(H) 11.1 - 14.9 % [facility] RDW SD 46.2 35.7 - 48.1 fL [facility] NRBC abs 0.00 0.00 - 0.01 K/cumm [facility] Blood specimen (specimen) 05/25/2021 8:25 PM CDT 05/25/2021 8:38 PM CDT us Jenny Arias MD LAB BLOOD ORDERABLES Jessica cruz Result [facility] [place] [address] * Differential, auto (05/25/2021 1:55 AM CDT) Pathologist [facility] Neutrophil abs 5.1 1.7 - 6.5 K/cumm [facility] Imm gran abs 0.0 0.0 - 0.1 K/cumm [facility] Lymphocyte abs 1.8 0.8 - 3.3 K/cumm [facility] Monocyte abs 0.7 0.2 - 0.8 K/cumm [facility] Eosinophil abs 0.3 0.0 - 0.5 K/cumm [facility] Basophil abs 0.0 0.0 - 0.1 K/cumm [facility] Neutrophil pct 64.1 % [facility] Comment: Interpretive Data Percent cell count reference ranges are not reported, since discordance with absolute values may lead to misinterpretation of CBC data. Current Interpretive Data was last revised on 2018. Imm gran pct 0.5 % [facility] Comment: Interpretive Data Percent cell count reference ranges are not reported, since discordance with absolute values may lead to misinterpretation of CBC data. Current Interpretive Data was last revised on 2018. Lymphocyte pct 22.7 % [facility] Comment: Interpretive Data Percent cell count reference ranges are not reported, since discordance with absolute values may lead to misinterpretation of CBC data. Current Interpretive Data was last revised on 2018. Monocyte pct 9.0 % [facility] Comment: Interpretive Data Percent cell count reference ranges are not reported, since discordance with absolute values may lead to misinterpretation of CBC data. Current Interpretive Data was last revised on 2018. Eosinophil pct 3.4 % [facility] Comment: Interpretive Data Percent cell count reference ranges are not reported, since discordance with absolute values may lead to misinterpretation of CBC data. Current Interpretive Data was last revised on 2018. Basophil pct 0.3 % [facility] Comment: Interpretive Data Percent cell count reference ranges are not reported, since discordance with absolute values may lead to misinterpretation of CBC data. Current Interpretive Data was last revised on 2018. Blood specimen (specimen) 05/25/2021 1:55 AM CDT 05/25/2021 2:24 AM CDT Jenny Arias MD LAB BLOOD ORDERABLES Jessica l Result [facility] [place] [address] * Basic metabolic panel (05/25/2021 1:55 AM CDT) Sodium 141 135 - 145 mmol/L [facility] Potassium, pl 4.1 3.3 - 4.9 mmol/L [facility] Chloride 108 97 - 110 mmol/L [facility] CO2 23 22 - 32 mmol/L [facility] Anion gap 10 2 - 15 mmol/L [facility] BUN 13 8 - 25 mg/dL [facility] Creatinine 0.86 0.80 - 1.30 mg/dL [facility] Glucose 107 70 - 199 mg/dL [facility] Comment: Interpretive Data Fasting glucose >/= 126 [...] interpretive data was last revised 2017. Calcium 8.7 8.5 - 10.3 mg/dL [facility] Blood specimen (specimen) 05/25/2021 1:55 AM CDT 05/25/2021 2:25 AM CDT Jenny Arias MD LAB BLOOD ORDERABLES Jessica cruz Result [facility] [place] [address] * (ABNORMAL) CBC with auto differential (05/25/2021 1:55 AM CDT) WBC 7.9 3.8 - 9.9 K/cumm [facility] Hgb 8.8(L) 13.0 - 17.5 g/dL [facility] Hct 28.1(L) 38.9 - 50.3 % [facility] Plt 310 150 - 400 K/cumm [facility] MPV 10.9 9.1 - 12.3 fL [facility] RBC 3.53(L) 4.30 - 5.80 M/cumm [facility] MCV 79.6(L) 81.3 - 96.4 fL [facility] MCH 24.9(L) 27.1 - 33.3 pg [facility] MCHC 31.3(L) 32.3 - 35.7 g/dL [facility] RDW CV 15.9(H) 11.1 - 14.9 % [facility] RDW SD 45.5 35.7 - 48.1 fL [facility] NRBC abs 0.00 0.00 - 0.01 K/cumm [facility] Blood specimen (specimen) 05/25/2021 1:55 AM CDT 05/25/2021 2:24 AM CDT Jenny Arias MD LAB BLOOD ORDERABLES Jessica l Result [facility] [place] [address] * Differential, auto (05/23/2021 9:25 PM CDT) Neutrophil abs 5.7 1.7 - 6.5 K/cumm [facility] Imm gran abs 0.0 0.0 - 0.1 K/cumm [facility] Lymphocyte abs 1.5 0.8 - 3.3 K/cumm [facility] Monocyte abs 0.7 0.2 - 0.8 K/cumm [facility] Eosinophil abs 0.1 0.0 - 0.5 K/cumm [facility] Basophil abs 0.0 0.0 - 0.1 K/cumm [facility] Neutrophil pct 70.9 % [facility] Comment: Interpretive Data Percent cell count reference ranges are not reported, since discordance with absolute values may lead to misinterpretation of CBC data. Current Interpretive Data was last revised on 2018. Imm gran pct 0.2 % [facility] Comment: Interpretive Data Percent cell count reference ranges are not reported, since discordance with absolute values may lead to misinterpretation of CBC data. Current Interpretive Data was last revised on 2018. Lymphocyte pct 18.4 % [facility] Comment: Interpretive Data Percent cell count reference ranges are not reported, since discordance with absolute values may lead to misinterpretation of CBC data. Current Interpretive Data was last revised on 2018. Monocyte pct 8.9 % [facility] Comment: Interpretive Data Percent cell count reference ranges are not reported, since discordance with absolute values may lead to misinterpretation of CBC data. Current Interpretive Data was last revised on 2018. Eosinophil pct 1.2 % [facility] Comment: Interpretive Data Percent cell count reference ranges are not reported, since discordance with absolute values may lead to misinterpretation of CBC data. Current Interpretive Data was last revised on 2018. Basophil pct 0.4 % [facility] Comment: Interpretive Data Percent cell count reference ranges are not reported, since discordance with absolute values may lead to misinterpretation of CBC data. Current Interpretive Data was last revised on 2018. Blood specimen (specimen) 05/23/2021 9:25 PM CDT 05/23/2021 9:43 PM CDT Jenny Arias MD LAB BLOOD ORDERABLES Jessica cruz Result [facility] [place] [address] * Basic metabolic panel (05/23/2021 9:25 PM CDT) Sodium 141 135 - 145 mmol/L [facility] Potassium, pl 3.8 3.3 - 4.9 mmol/L [facility] Chloride 105 97 - 110 mmol/L [facility] CO2 24 22 - 32 mmol/L [facility] Anion gap 12 2 - 15 mmol/L [facility] BUN 15 8 - 25 mg/dL [facility] Creatinine 1.01 0.80 - 1.30 mg/dL [facility] Glucose 104 70 - 199 mg/dL [facility] Comment: Interpretive Data Fasting glucose >/= 126 [...] interpretive data was last revised 2017. Calcium 8.7 8.5 - 10.3 mg/dL [facility] Blood specimen (specimen) 05/23/2021 9:25 PM CDT 05/23/2021 9:43 PM CDT Jenny Arias MD LAB BLOOD ORDERABLES Jessica l Result Performing Organization Address [facility] Co de Phone Number [facility] [place] [address] * (ABNORMAL) CBC with auto differential (05/23/2021 9:25 PM CDT) Pathologist [facility] WBC 8.0 3.8 - 9.9 K/cumm [facility] Hgb 8.2(L) 13.0 - 17.5 g/dL [facility] Hct 26.5(L) 38.9 - 50.3 % [facility] Plt 292 150 - 400 K/cumm [facility] MPV 10.7 9.1 - 12.3 fL [facility] RBC 3.32(L) 4.30 - 5.80 M/cumm [facility] MCV 79.8(L) 81.3 - 96.4 fL [facility] MCH 24.7(L) 27.1 - 33.3 pg [facility] MCHC 30.9(L) 32.3 - 35.7 g/dL [facility] RDW CV 16.1(H) 11.1 - 14.9 % [facility] RDW SD 46.7 35.7 - 48.1 fL [facility] NRBC abs 0.00 0.00 - 0.01 K/cumm [facility] Blood specimen (specimen) 05/23/2021 9:25 PM CDT 05/23/2021 9:43 PM CDT Jenny Arias MD LAB BLOOD ORDERABLES Jessica l Result Performing Organization Address City/[facility]/ZIP Co de Phone Number [facility] [place] [address] * VRE culture, surveillance Stool (05/23/2021 7:11 PM CDT) Report Final Report: Negative [facility] Stool 05/23/2021 7:11 PM CDT 05/24/2021 9:26 PM CDT Narrative [facility] - 05/28/2021 1:23 PM CDT Testing performed by [facility] Microbiology [facility] ([phone]). Peter Mcgrath MD LAB MICROBIOLOGY - GEN ERAL ORDERABLES Final Result Performing Organization Address [facility] Co de Phone Number [facility] [place] [address] * C. difficile testing Stool (05/23/2021 7:11 PM CDT) C. diff result Negative, free toxin Negative , free toxin [facility] C. diff interp Negative for toxigenic Clostridioides (Clostridium) difficile. Analysis was performed using an enzyme immunoassay that detects C. difficile toxin(s) in feces. [facility] Stool 05/23/2021 7:11 PM CDT 05/23/2021 9:41 PM CDT Peter Mcgrath MD LAB MICROBIOLOGY - GEN ERAL ORDERABLES Final Result Performing Organization Address City/[facility] Co de Phone Number [facility] [place] [address] * (ABNORMAL) Creatine kinase (CK), total (05/23/2021 8:31 AM CDT) CK 35(L) 40 - 300 Units/L [facility] Blood specimen (specimen) 05/23/2021 8:31 AM CDT 05/23/2021 8:43 AM CDT us Peter Mcgrath MD LAB BLOOD ORDERABLES F inal Result [facility] [place] [address] * Differential, auto (05/23/2021 8:31 AM CDT) Neutrophil abs 5.1 1.7 - 6.5 K/cumm [facility] Imm gran abs 0.0 0.0 - 0.1 K/cumm [facility] Lymphocyte abs 1.1 0.8 - 3.3 K/cumm [facility] Monocyte abs 0.3 0.2 - 0.8 K/cumm [facility] Eosinophil abs 0.1 0.0 - 0.5 K/cumm [facility] Basophil abs 0.0 0.0 - 0.1 K/cumm [facility] Neutrophil pct 77.2 % [facility] Comment: Interpretive Data Percent cell count reference ranges are not reported, since discordance with absolute values may lead to misinterpretation of CBC data. Current Interpretive Data was last revised on 2018. Imm gran pct 0.3 % [facility] Comment: Interpretive Data Percent cell count reference ranges are not reported, since discordance with absolute values may lead to misinterpretation of CBC data. Current Interpretive Data was last revised on 2018. Lymphocyte pct 16.3 % [facility] Comment: Interpretive Data Percent cell count reference ranges are not reported, since discordance with absolute values may lead to misinterpretation of CBC data. Current Interpretive Data was last revised on 2018. Monocyte pct 5.0 % [facility] Comment: Interpretive Data Percent cell count reference ranges are not reported, since discordance with absolute values may lead to misinterpretation of CBC data. Current Interpretive Data was last revised on 2018. Eosinophil pct 0.9 % [facility] Comment: Interpretive Data Percent cell count reference ranges are not reported, since discordance with absolute values may lead to misinterpretation of CBC data. Current Interpretive Data was last revised on 2018. Basophil pct 0.3 % [facility] Comment: Interpretive Data Percent cell count reference ranges are not reported, since discordance with absolute values may lead to misinterpretation of CBC data. Current Interpretive Data was last revised on 2018. Blood specimen (specimen) 05/23/2021 8:31 AM CDT 05/23/2021 8:43 AM CDT Peter Mcgrath MD LAB BLOOD ORDERABLES F inal Result [facility] [place] [address] * Basic metabolic panel (05/23/2021 8:31 AM CDT) Sodium 144 135 - 145 mmol/L [facility] Potassium, pl 3.9 3.3 - 4.9 mmol/L [facility] Chloride 104 97 - 110 mmol/L [facility] CO2 25 22 - 32 mmol/L [facility] Anion gap 15 2 - 15 mmol/L [facility] BUN 12 8 - 25 mg/dL [facility] Creatinine 1.07 0.80 - 1.30 mg/dL [facility] Glucose 111 70 - 199 mg/dL [facility] Comment: Interpretive Data Fasting glucose >/= 126 [...] interpretive data was last revised 2017. Calcium 9.0 8.5 - 10.3 mg/dL [facility] Blood specimen (specimen) 05/23/2021 8:31 AM CDT 05/23/2021 8:43 AM CDT Peetr Mcgrath MD LAB BLOOD ORDERABLES F inal Result [facility] [place] [address] * (ABNORMAL) CBC with auto differential (05/23/2021 8:31 AM CDT) WBC 6.6 3.8 - 9.9 K/cumm [facility] Hgb 8.3(L) 13.0 - 17.5 g/dL [facility] Hct 26.6(L) 38.9 - 50.3 % [facility] Plt 310 150 - 400 K/cumm [facility] MPV 10.9 9.1 - 12.3 fL [facility] RBC 3.36(L) 4.30 - 5.80 M/cumm [facility] MCV 79.2(L) 81.3 - 96.4 fL [facility] MCH 24.7(L) 27.1 - 33.3 pg [facility] MCHC 31.2(L) 32.3 - 35.7 g/dL [facility] RDW CV 16.2(H) 11.1 - 14.9 % [facility] RDW SD 46.3 35.7 - 48.1 fL [facility] NRBC abs 0.00 0.00 - 0.01 K/cumm [facility] Blood specimen (specimen) 05/23/2021 8:31 AM CDT 05/23/2021 8:43 AM CDT Peter Mcgrath MD LAB BLOOD ORDERABLES F inal Result [facility] [place] [address] * (ABNORMAL) Creatine kinase (CK), total (05/23/2021 1:09 AM CDT) CK 36(L) 40 - 300 Units/L [facility] Blood specimen (specimen) 05/23/2021 1:09 AM CDT 05/23/2021 1:24 AM CDT Peter Mcgrath MD LAB BLOOD ORDERABLES F inal Result Performing Organization Address [facility] de Phone Number [facility] [place] [address] * POCT glucose (05/22/2021 10:01 PM CDT) Glucose, POC 75 70 - 199 mg/dL [facility] Blood specimen (specimen) 05/22/2021 10:01 PM CDT 05/22/2021 10:01 PM CDT Daniel Llanes MD LAB POCT ORDERABLES - DEVICE F inal Result Performing Organization Address [facility] de Phone Number [facility] [place] [address] * POCT glucose (05/22/2021 6:24 PM CDT) Pathologist [facility] Glucose, POC 75 70 - 199 mg/dL [facility] Blood specimen (specimen) 05/22/2021 6:24 PM CDT 05/22/2021 6:24 PM CDT Daniel Llanes MD LAB POCT ORDERABLES - DEVICE F inal Result Performing Organization Address [facility] [place] [address] * COVID-19 Coronavirus RNA Nasopharyngeal (05/22/2021 5:06 PM CDT) [facility] COVID-19 RNA Negative Negative [facility] Comment: Interpretive data: Synonyms for this test include: PCR and NAAT . ??This test is performed using the mydalaert Xpress assay. This is a real-time RT-PCR [...] December 12, 2020. First COVID-19 test? No [facility] Employeed in healthcare? No [facility] status[facility] No [facility] Group care resident? No [facility] Hospitalized? No [facility] Is patient in ICU? No [facility] Symptomatic as defined by CDC? No [facility] Nasopharyngeal 05/22/2021 5: 06 PM CDT 05/22/2021 5:14 PM CDT Narrative [facility] - 05/22/2021 6:06 PM CDT What is the reason for testing?->Bed placement or semi-private room Wei Lewis MD LAB MICROBIOLOGY - G ENERAL ORDERABLES Final Result [facility] [place] [address] * XR Spine Lumbar 2 or 3 Views (05/22/2021 5:02 PM CDT) Anatomical Region Laterality Modality Spine N/A Computed Radiogr aphy 05/22/2021 5:22 PM CDT Impressions 05/22/2021 6:10 PM CDT 1. ??Marked osseous destruction centered on L5 and S1 involving the inferior portion of the L5 vertebral body and the superior aspect of the sacrum, which is better evaluated on prior CT of the abdomen and pelvis, consistent with progressive discitis-osteomyelitis. 2. ??Interval placement of a left abdominal pigtail drainage catheter. Dictated by: Jorge Rizo M.D. The radiology attending physician has personally reviewed this study, and had reviewed and/or edited this written report and agrees with it. Electronically signed by: Leonel Bates M.D. Narrative 05/22/2021 6:10 PM CDT EXAMINATION: XR SPINE LUMBAR 2 OR 3 VIEWS HISTORY: ??35-year-old male with history of paraplegia who presents [...] pelvis at the inferior margin of the [id number]. An inferior vena cava filter is present. [...] better evaluated on prior CT dated 05/22/2021. Procedure Note Leonel Bates MD - 05/22/2021 EXAMINATION: XR SPINE LUMBAR 2 OR 3 [...] pelvis at the inferior margin of the [id number]. An inferior vena cava filter is present. [...] better evaluated on prior CT dated 05/22/2021. IMPRESSION: 1. Marked osseous destruction centered on L5 [...] it. Electronically signed by: Leonel Bates M.D. Darci Tomlin MD IMG XR PROCED URES Final Result * Image Guided Drainage Peritoneal or Retroperitoneal Fluid Collection (05/22/2021 3:31 PM CDT) Anatomical Region Laterality Modality Body N/A X-Ray Angiograph y 05/22/2021 5:09 PM CDT Impressions 05/26/2021 7:21 AM CDT Successful image guided left paracolic gutter fluid collection drainage with placement of a 12-Tongan pigtail drainage catheter. PLAN: This tube should be flushed with saline 10 mL twice a day. Interventional radiology will continue to follow this patient. Dictated by: Jessee Rivera M.D. The radiology attending physician has personally reviewed this study, and had reviewed and/or edited this written report and agrees with it. Electronically signed by: Leonel Tomas M.D. Narrative 05/26/2021 7:21 AM CDT EXAMINATION: ??PERCUTANEOUS DRAINAGE (STD) HISTORY/INDICATION: ??35-year-old man with paraplegia and bilateral below the knee amputation presenting with abdominal pain. ??CT demonstrated left paracolic gutter fluid collection. ??Request for image guided percutaneous drain placement. ATTENDING PRESENCE: Leonel Tomas M.D., the attending radiologist was present from the beginning to the end of the procedure. ?? SEDATION: Procedural sedation was administered under the attending physician's direction and continuous monitoring by a trained nurse specialist who was independent from those actually performing the procedure. ??Total monitored sedation time was 45 minutes. TECHNIQUE: The risks, benefits and alternatives were discussed and informed consent was obtained. ??Prior to beginning the procedure, [facility] Protocol was used to confirm the patient's identity and planned procedure. ??If fluoroscopy was used, fluoroscopy time has been recorded in the electronic medical record. Maximum sterile barriers including cap, mask, hand hygiene, sterile gloves, sterile gown, large sterile drape and 2% chlorhexidine for cutaneous antisepsis were used. ?? The skin overlying the fluid collection in the left lower quadrant side was sterilely prepped, draped and infiltrated with 1% buffered lidocaine. ?? The targeted collection was then accessed with a 18 gauge needle using imaging guidance which included fluoroscopy and ultrasound. Contrast was injected to confirm needle placement. ?? A guidewire was advanced and coiled within the collection before dilating the tract to ??12 Fr. ??A 12-Tongan pigtail drainage catheter was then advanced over the guidewire and secured in place with a stitch of 0-Prolene. The catheter was connected to gravity drainage. A sterile dressing was applied. A sample of the fluid was sent for culture ESTIMATED BLOOD LOSS: Minimal. CONDITION: Stable DISCHARGED TO: Recovery and then to home. ?? FINDINGS: Images from the procedure revealed a collection that ??was large and irregular in configuration. The fluid appeared blood-tinged and serous sanguinous. ??An approximate volume of 100 cc was drained at the time of the procedure. Procedure Note Leonel Tomas MD - 05/26/2021 EXAMINATION: PERCUTANEOUS DRAINAGE (STD) HISTORY/INDICATION: 35-year-old man with paraplegia and bilateral below the knee amputation presenting with abdominal pain. CT demonstrated left paracolic gutter fluid collection. Request for image guided percutaneous drain placement. ATTENDING PRESENCE: Leonel Tomas M.D., the attending radiologist was [...] was obtained. Prior to beginning the procedure, [facility] Protocol was used to confirm the patient's identity and planned procedure. If fluoroscopy was used, fluoroscopy time has been recorded [...] dilating the tract to 12 Fr. A 12-Tongan pigtail drainage catheter was then advanced over the guidewire and secured in place with a stitch of 0-Prolene. The catheter was connected to gravity drainage. A sterile dressing was applied. A sample of the fluid was sent for culture ESTIMATED BLOOD LOSS: Minimal. CONDITION: Stable DISCHARGED TO: Recovery and then to home. FINDINGS: Images from the procedure revealed a collection that was large and irregular in configuration. The fluid appeared blood-tinged and serous sanguinous. An approximate volume of 100 cc was drained at the time of the procedure. IMPRESSION: Successful image guided left paracolic gutter fluid collection drainage with placement of a 12-Tongan pigtail drainage catheter. PLAN: This tube should be flushed with saline 10 mL twice a day. Interventional radiology will continue to follow this patient. Dictated by: Jessee Rivera M.D. The radiology attending physician has personally reviewed this study, and had reviewed and/or edited this written report and agrees with it. Electronically signed by: Leonel Tomas M.D. Darci Tomlin MD IMG IR PROCED URES Final Result * Aerobic and anaerobic culture and gram stain Aspirate Abdominal (05/22/2021 2:45 PM CDT) Direct Specimen Exam Stain: Moderate polymorphonuclear leukocytes seen. No organisms seen. [facility] Report Final Report: No growth [facility] Aspirate (Abdominal) 05/22/2021 2:45 PM CDT 05/22/2021 4:24 PM CDT Narrative [facility] - 05/25/2021 12:48 PM CDT Testing performed by [facility] Microbiology Laboratory ([phone]) Specimens submitted from normally sterile body sites will have all bacterial morphotypes identified. Specimens that contain grossly mixed mallory and/or are from body sites that are not normally sterile will be examined for Staphylococcus aureus, Pseudomonas aeruginosa, beta-hemolytic strep, vancomycin-resistant Enterococcus, Bacteroides, Parabacteroides, Clostridium perfringens and fungus. If any of these are isolated, the organism will be reported. Current interpretive data was last revised on 2020. us Daniel Llanes MD LAB MICROBIOLOGY - GENERAL ORD ERABLES Final Result [facility] [place] [address] * (ABNORMAL) Urinalysis reflex to microscopic and culture Urine (05/22/2021 10:34 AM CDT) Color, ur Yellow Yellow [facility] Clarity, ur Clear Clear [facility] Specific gravity, ur >1.042(H) 1.010 - 1.025 [facility] Comment:Result required veri fication by manual methods. pH, urine 7 [facility] Protein, ur ql Negative Negative [facility] Glucose, ur ql Negative Negative [facility] Ketones, ur Negative Negative [facility] Bilirubin, ur Negative Negative [facility] Blood, ur Negative Negative [facility] Urobilinogen, ur <2.0 <2.0 [facility] Nitrite, ur Negative Negative [facility] Leukocyte esterase, ur Negative Negative [facility] UA reflex comment Reflex conditions for microscopic UA and culture not met. [facility] Urine 05/22/2021 10:3 4 AM CDT 05/22/2021 10:42 AM CDT Narrative [facility] RON[facility] - 05/22/2021 12:34 PM CDT ?? Urine pH is affected by diet, medications, systemic acid-base disturbances, and renal tubular function. ??pH may affect urinary stone formation. ??For example, urine pH below 6.0 may help reduce the tendency for calcium phosphate stones and pH greater than 6.0 may reduce the tendency for uric acid stone formation. Source: [employer]. Last revised 11-18-2017 us Darci Tomlin MD LAB M ICROBIOLOGY - GENERAL ORDERABLES Final Result [facility] [place] [address] * CT Abdomen Pelvis W Contrast (05/22/2021 9:05 AM CDT) Anatomical Region Laterality Modality Body N/A Computed Tomogra phy 05/22/2021 10:4 1 AM CDT Impressions 05/22/2021 11:28 AM CDT Interval progression of the destructive process centered at L5-S1. Interval increase in size of a fluid collection within the left paracolic gutter, which now measures 6 cm x 7 cm. ??New fluid collection within the subcutaneous tissues of the back, superficial to the lumbar paraspinal muscles, measuring 11 cm x 4 cm. ??This is suggestive of progressive discitis osteomyelitis phlegmonous change and possible abscess formation. Dictated by: Matthew Gonzalez MD The radiology attending physician has personally reviewed this study, and had reviewed and/or edited this written report and agrees with it. Electronically signed by: Scott Aleman M.D. Narrative 05/22/2021 11:28 AM CDT EXAMINATION: ??Computed tomography of the abdomen and pelvis with intravenous contrast HISTORY: 35-year-old paraplegic male, history of neobladder, spinal abscess; acute onset right lower quadrant abdominal pain and vomiting TECHNIQUE: ??Transaxial computed tomographic images of the [...] focal lesion. The gallbladder is surgically absent. ??There is no biliary dilatation. ??There is pneumobilia, unchanged from prior examination. The spleen appears normal. The pancreas appears normal. The adrenal glands appear normal. There are benign-appearing cysts within the bilateral kidneys, unchanged from prior examination. ??There is no hydronephrosis. Post surgical changes from neobladder formation are again seen. There are 3 large stones in the neobladder previously seen are no longer present. ?? A supra pubic catheter is in place. There is no intestinal obstruction. ??There is no intraperitoneal free air. Abdominal aorta is normal in caliber. An inferior vena cava filter is again seen. The large collection of mixed soft tissue and fluid density material, centered at L5-S1, is again seen. ??The central lesion remains similar in size compared to the prior examination on 03/29/2021, with reduced gas within the collection. ??However, there has been interval increase in size of a fluid collection within the left paracolic gutter, measuring 6 cm x 7 cm (table position 434.2). ??There is also a new fluid collection in the subcutaneous tissues of the back, posterior to the lumbar spine and superficial to the paraspinal muscles, which measures 11 cm x 4 cm (table position 468.2). Extensive heterotopic ossification of the hips and degenerative changes of the spine is again seen. ??Extensive destruction of the sacrum by the patient described above appears similar compared to the prior exam. Procedure Note Scott Aleman MD - 05/22/2021 EXAMINATION: Computed tomography of the abdomen and [...] normal. The pancreas appears normal. The adrenal glands appear normal. There are benign-appearing cysts within the bilateral kidneys, unchanged from prior examination. There is no hydronephrosis. Post surgical changes from neobladder formation are again seen. There are 3 large stones in the neobladder previously seen are no longer present. A supra pubic catheter is in place. There is no intestinal [...] appears similar compared to the prior exam. IMPRESSION: Interval progression of the destructive process centered at L5-S1. Interval increase in size of a fluid collection [...] it. Electronically signed by: Scott Aleman M.D. Darci Tomlin MD IMG CT PROCED URES Final Result * (ABNORMAL) Differential, auto (05/22/2021 8:00 AM CDT) Neutrophil abs 6.9(H) 1.7 - 6.5 K/cumm [facility] Imm gran abs 0.0 0.0 - 0.1 K/cumm [facility] Lymphocyte abs 1.1 0.8 - 3.3 K/cumm [facility] Monocyte abs 0.4 0.2 - 0.8 K/cumm [facility] Eosinophil abs 0.1 0.0 - 0.5 K/cumm [facility] Basophil abs 0.0 0.0 - 0.1 K/cumm [facility] Neutrophil pct 81.3 % [facility] Comment: Interpretive Data Percent cell count reference ranges are not reported, since discordance with absolute values may lead to misinterpretation of CBC data. Current Interpretive Data was last revised on 2018. Imm gran pct 0.5 % [facility] Comment: Interpretive Data Percent cell count reference ranges are not reported, since discordance with absolute values may lead to misinterpretation of CBC data. Current Interpretive Data was last revised on 2018. Lymphocyte pct 12.5 % [facility] Comment: Interpretive Data Percent cell count reference ranges are not reported, since discordance with absolute values may lead to misinterpretation of CBC data. Current Interpretive Data was last revised on 2018. Monocyte pct 4.8 % [facility] Comment: Interpretive Data Percent cell count reference ranges are not reported, since discordance with absolute values may lead to misinterpretation of CBC data. Current Interpretive Data was last revised on 2018. Eosinophil pct 0.7 % [facility] Comment: Interpretive Data Percent [...] last revised on 2018. Blood specimen (specimen) 05/22/2021 8:00 AM CDT 05/22/2021 8:30 AM CDT Darci Tomlin MD LAB BLOOD ORD ERABLES Final Result [facility] [place] [address] * Blood culture Blood Peripheral (05/22/2021 8:00 AM CDT) Report Final Report: No growth [facility] Blood specimen (specimen) (Peripheral) 05/22/2021 8:00 AM CDT 05/22/2021 8:18 AM CDT Narrative [facility] - 05/26/2021 12:00 PM CDT From a different site than #1. [...] organism identification may be performed using the Proteopureigene Gram-Positive Blood Culture Assay. This assay detects microbial DNA in positive blood culture broth via hybridization of target DNA to capture oligonucleotides on a microarray. This assay has been cleared by the [place] Food and Drug Administration and its performance characteristics have been verified by the [facility] Microbiology Laboratory. 5. ?For questions about this culture, contact the Microbiology Laboratory at [phone]. Interpretive data was last revised on 2020. Darci Tomlin MD LAB M ICROBIOLOGY - GENERAL ORDERABLES Final Result [facility] [place] [address] * Blood culture Blood Peripheral (05/22/2021 8:00 AM CDT) Report Final Report: No growth [facility] Blood specimen (specimen) (Peripheral) 05/22/2021 8:00 AM CDT 05/22/2021 8:18 AM CDT Narrative [facility] OLIVIA - 05/26/2021 12:00 PM CDT Draw Blood cultures before administration of [...] organism identification may be performed using the Proteopureigene Gram-Positive Blood Culture Assay. This assay detects microbial DNA in positive blood culture broth via hybridization of target DNA to capture oligonucleotides on a microarray. This assay has been cleared by the [place] Food and Drug Administration and its performance characteristics have been verified by the [facility] Microbiology [facility]. 5. ?For questions about this culture, contact the Microbiology Laboratory at [phone]. Interpretive data was last revised on 2020. us Darci Tomlin MD LAB M ICROBIOLOGY - GENERAL ORDERABLES Final Result [facility] [employer] [place] [address] * Sepsis Lactate w/ Reflex (05/22/2021 8:00 AM CDT) [facility] Sepsis Lactate 1.3 0.7 - 2.0 mmol/L [facility] Blood specimen (specimen) 05/22/2021 8:00 AM CDT 05/22/2021 8:20 AM CDT us Darci Tomlin MD LAB BLOOD ORD ERABLES Final Result Performing Organization Address City/[facility] Co de Phone Number [facility] Department [place] [employer] [place] [address] * Lipase (05/22/2021 8:00 AM CDT) [facility] Lipase 34 10 - 99 Units/L [facility] Blood specimen (specimen) 05/22/2021 8:00 AM CDT 05/22/2021 8:30 AM CDT us Darci Tomlin MD LAB BLOOD ORD ERABLES Final Result Performing Organization Address City/[facility]/ZIP Co de Phone Number [facility] [place] [employer] [place] [address] * (ABNORMAL) Comprehensive metabolic panel (05/22/2021 8:00 AM CDT) [facility] Sodium 141 135 - 145 mmol/L [facility] Potassium, pl 4.5 3.3 - 4.9 mmol/L [facility] Comment:Hemolyzed; Potassium value may be falsely elevated by as much as 0.3-0.5 mmol/L. Suggest redraw and reanalysis. Chloride 102 97 - 110 mmol/L [facility] CO2 24 22 - 32 mmol/L [facility] Anion gap 15 2 - 15 mmol/L [facility] BUN 16 8 - 25 mg/dL [facility] Creatinine 0.91 0.80 - 1.30 mg/dL [facility] Glucose 106 70 - 199 mg/dL [facility] Comment: Interpretive Data Fasting glucose >/= 126 [...] interpretive data was last revised 2017. Calcium 10.2 8.5 - 10.3 mg/dL [facility] Bilirubin, total 0.6 0.1 - 1.2 mg/dL [facility] Protein, pl 9.2(H) 6.5 - 8.5 g/dL [facility] Albumin 4.2 3.5 - 5.0 g/dL [facility] Alk phos 100 40 - 130 Units/L [facility] ALT 69(H) 7 - 55 Units/L [facility] AST 50 10 - 50 Units/L [facility] Comment:Hemolyzed; result ma y be falsely elevated Blood specimen (specimen) 05/22/2021 8:00 AM CDT 05/22/2021 8:30 AM CDT Darci Tomlin MD LAB BLOOD ORD ERABLES Final Result [facility] Department [place] [address] * (ABNORMAL) CBC with auto differential (05/22/2021 8:00 AM CDT) Pathologist [facility] WBC 8.5 3.8 - 9.9 K/cumm [facility] Hgb 10.5(L) 13.0 - 17.5 g/dL [facility] Hct 33.7(L) 38.9 - 50.3 % [facility] Plt 389 150 - 400 K/cumm [facility] MPV 11.8 9.1 - 12.3 fL [facility] RBC 4.21(L) 4.30 - 5.80 M/cumm [facility] MCV 80.0(L) 81.3 - 96.4 fL [facility] MCH 24.9(L) 27.1 - 33.3 pg [facility] MCHC 31.2(L) 32.3 - 35.7 g/dL [facility] RDW CV 15.9(H) 11.1 - 14.9 % [facility] RDW SD 46.0 35.7 - 48.1 fL [facility] NRBC abs 0.00 0.00 - 0.01 K/cumm [facility] Blood specimen (specimen) 05/22/2021 8:00 AM CDT 05/22/2021 8:30 AM CDT Darci Tomlin MD LAB BLOOD ORD ERABLES Final Result [facility] [place] [address] * ECG 12-LEAD (05/22/2021 7:48 AM CDT) Narrative [facility] - 05/22/2021 7:48 AM CDT Kailyn Crews MD PhD ? 05/22/2021 ??7:50 AM ECG 12 lead Date/Time: 05/22/2021 7:48 AM Performed by: Kailyn Crews MD PhD Authorized by: Darci Tomlin MD Rate: ??ECG rate: ??62 ??ECG rate assessment: normal ?? Rhythm: ??Rhythm: sinus rhythm ?? Ectopy: ??Ectopy: none ?? QRS: ??QRS axis: ??Normal ??QRS intervals: ??Normal Conduction: ??Conduction: normal ?? ST segments: ??ST segments: ??Normal T waves: ??T waves: normal ?? Previous ECG: ??Previous ECG: ??Compared to current ??Date of previous ECG: ??04/09/2021 Interpretation: ??Interpretation: No significant change ?? Recommended Follow-up: ??Recommended follow up: further workup in the ED ?? Procedure Note Kailyn Crews MD PhD - 05/22/2021 7:48 AM CDT Procedure ECG 12 lead Date/Time: 05/22/2021 7:48 AM Performed by: Kailyn Crews MD PhD Authorized by: Darci Tomlin MD Rate: ECG rate: 62 ECG rate assessment: normal Rhythm: Rhythm: sinus rhythm Ectopy: Ectopy: none QRS: QRS axis: Normal QRS intervals: Normal Conduction: Conduction: normal ST segments: ST segments: Normal T waves: T waves: normal Previous ECG: Previous ECG: Compared to current Date of previous EC04/09/2021 Interpretation: Interpretation: No significant change Recommended Follow-up: Recommended follow up: further workup in the ED Kailyn Crews MD PhD 05/22/21 0750 us Darci Tomlin MD ECG ORDERABLE S Final Result [facility] documented in this encounter Visit Diagnoses Diagnosis Abdominal pain- Primary Abdominal pain, unspecified site Abdominal pain Abdominal pain, unspecified site Paraspinal abscess (CMS/HCC) (HCC) Acute osteomyelitis, other specified site Intra-abdominal abscess (CMS/HCC) (HCC) Peritoneal abscess Severe malnutrition (CMS/HCC) (HCC) Nutritional marasmus documented in this encounter Admitting Diagnoses Diagnosis Abdominal pain Abdominal pain, unspecified site documented in this encounter Administered Medications Inactive Administered Medications - up to 3 most recent administrations Medication Order MAR Action Action Date Dose Rate Site acetaminophen (TYLENOL) tablet 650 mg 650 mg, oral, 3 times daily, First dose on Wed05/23/21 at 0900 Given 05/27/2021 9:50 PM CDT 650 mg Given 05/27/2021 4:22 PM CDT 650 mg Given 05/27/2021 8:11 AM CDT 650 mg carvediloL (COREG) tablet 3.125 mg 3.125 mg, oral, 2 times daily with meals (bkfst, dinner), First dose on Wed05/23/21 at 0800 Given 05/27/2021 6:51 PM CDT 3.125 mg Given 05/27/2021 8:11 AM CDT 3.125 mg Given 05/26/2021 5:34 PM CDT 3.125 mg cyclobenzaprine (FLEXERIL) tablet 5 mg 5 mg, oral, 3 times daily PRN, muscle spasms, Starting on Wed05/22/21 at 2311 Given 05/26/2021 5:37 PM CDT 5 mg DAPTOmycin (CUBICIN) 50 mg/mL sodium chloride 0.9% 550 mg 550 mg, intravenous, at 330 mL/hr, Administer over 2 Minutes, Every 24 hours scheduled, First dose (after last modification) on Wed05/24/21 at 0900, Please obtain ck levels prior to first dose Do not administer or mix with dextrose-containing solutions, Indications: Abdominal/Pelvic InfectionIndications:Abdominal/Pelvic Infection Given 05/27/2021 8:10 AM CDT 550 mg 330 mL/hr Given 05/26/2021 8:59 AM CDT 550 mg 330 mL/hr Given 05/25/2021 7:43 AM CDT 550 mg 330 mL/hr DAPTOmycin (CUBICIN) 50 mg/mL sodium chloride 0.9% 700 mg 700 mg (rounded from 694.4 mg = 8 mg/kg ? 86.8 kg Adjusted weight), intravenous, at 420 mL/hr, Administer over 2 Minutes, Every 24 hours scheduled, First dose on Wed05/23/21 at 0900, Please obtain ck levels prior to first dose Do not administer or mix with dextrose-containing solutions, Indications: Abdominal/Pelvic InfectionIndications:Abdo bertha/Pelvic Infection Given 05/23/2021 8:21 AM CDT 700 mg 420 mL/hr enoxaparin (LOVENOX) syringe 40 mg 40 mg, subcutaneous, Daily (for enoxaparin), First dose on Wed05/22/21 at 2345, Indications: Deep Vein Thrombosis PreventionIndications:Bety p Vein Thrombosis Prevention Given 05/27/2021 9:50 PM CDT 40 mg Left Upper Abdomen Given 05/26/2021 8:20 PM CDT 40 mg Le ft Lower Abdomen Given 05/25/2021 8:17 PM CDT 40 mg Ri ght Lower Abdomen fentaNYL (SUBLIMAZE) preservative free injection intravenous, Code/trauma/sedation medication, Starting on Ramandeep 05/22/21 at 1442 Given 05/22/2021 2:48 PM CDT 50 mcg Given 05/22/2021 2:42 PM CDT 50 mcg ferrous sulfate tablet 325 mg 325 mg (65 mg of elemental iron), oral, 2 times daily with meals (bkfst, lunch), First dose on Wed05/23/21 at 0800, For 325 days, Indications: Iron Deficiency Anemia, On hold since 05/24/2021 at 1423 until manually unheldIndications:Iron Deficiency Anemia Given 05/24/2021 12:48 PM CDT 32 5 mg Given 05/24/2021 8:02 AM CDT 325 mg Given 05/23/2021 11:56 AM CDT 325 mg gabapentin (NEURONTIN) capsule 300 mg 300 mg, oral, Nightly, First dose on Ramandeep 05/22/21 at 2345, Do not crush, break, or open. Given 05/27/2021 9:50 PM CDT 300 mg Given 05/26/2021 8:21 PM CDT 300 mg Given 05/25/2021 8:17 PM CDT 300 mg HYDROmorphone (DILAUDID) injection 1 mg 1 mg, intravenous, Administer over 2 Minutes, Once, On Ramandeep 05/22/21 at 0709, For 1 dose Given 05/22/2021 8:07 AM CDT 1 mg HYDROmorphone (DILAUDID) injection 1 mg 1 mg, intravenous, Administer over 2 Minutes, Every 2 hours PRN, 1st line for pain, Starting on Ramandeep 05/22/21 at 1309 Given 05/22/2021 1:18 PM CDT 1 mg iothalamate meglumine (CONRAY) 60 % injection Code/trauma/sedation medication, Starting on Wed05/22/21 at 1515 Given 05/22/2021 3:15 PM CDT 20 mL ioversoL (OPTIRAY 350) syringe syringe 125 mL 125 mL, intravenous, Once in imaging, contrast, Starting on Ramandeep 05/22/21 at 0936, For 1 dose Contrast Given 05/22/2021 9:36 AM CDT 125 mL ioversoL (OPTIRAY 350) syringe syringe 125 mL 125 mL, intravenous, Once in imaging, contrast, Starting on Wed05/27/21 at 1507, For 1 dose Contrast Given 05/27/2021 3:08 PM CDT 125 mL Lactated Ringer's (LR) bolus 1,845 mL 1,845 mL (30 mL/kg ? 61.5 kg [place] weight), intravenous, Once, On Wed05/22/21 at 0709, For 1 dose New Bag 05/22/2021 8:04 AM CDT 1,845 mL lidocaine PF (XYLOCAINE) 10 mg/mL (1 %) preservative free injection Code/trauma/sedation medication, Starting on Wed05/22/21 at 1450, Intra-Procedure (IR), Indications: Administration of Local AnesthesiaIndications:Admi nistration of Local Anesthesia Given 05/22/2021 2:50 PM CDT 8 mL Left Lower Abdomen linaCLOtide (LINZESS) capsule 145 mcg 145 mcg, oral, Daily, First dose on Wed05/23/21 at 0900, Do not crush - May open and disperse in water 30 mL, swirl for at least 20 seconds. Administer immediately. Repeat process if any beads remain behind. Flush. Do not chew the beads., Indications: chronic idiopathic constipation, On hold since Wed05/24/2021 at 1423 until manually unheldIndications:chronic idiopathic constipation Given 05/24/2021 8:02 AM CDT 145 mcg Given 05/23/2021 10:15 AM CDT 145 mcg meropenem (MERREM) 1,000 mg/110 mL in sodium chloride 0.9% (premix) 1,000 mg 1,000 mg, intravenous, at 220 mL/hr, Administer over 30 Minutes, Every 8 hours scheduled, First dose (after last modification) on Wed05/23/21 at 0100, Indications: Bone/Joint Infection, discitisIndications:Bone/Joint Infection,discitis New Bag 05/28/2021 12:43 AM CDT 1,000 mg 220 mL/hr New Bag 05/27/2021 4:22 PM CDT 1,000 mg 220 mL/hr New Bag 05/27/2021 8:10 AM CDT 1,000 mg 220 mL/hr meropenem (MERREM) 2,000 mg/120 mL in sodium chloride 0.9% (premix) 2,000 mg 2,000 mg, intravenous, Administer over 30 Minutes, Every 8 hours scheduled, First dose on Ramandeep 05/22/21 at 1101, Indications: Bone/Joint Infection, discitisIndications:Bone/Joint Infection,discitis New Bag 05/22/2021 11:46 AM CDT 2,000 mg midazolam (VERSED) 1 mg/mL preservative free injection intravenous, Administer over 2 Minutes, Code/trauma/sedation medication, Starting on Ramandeep 05/22/21 at 1442, Intra-Procedure (IR) Given 05/22/2021 2:48 PM CDT 1 mg Given 05/22/2021 2:42 PM CDT 1 mg ondansetron (ZOFRAN) injection 4 mg 4 mg, intravenous, Administer over 2 Minutes, Once, On Ramandeep 05/22/21 at 0709, For 1 dose Given 05/22/2021 8:08 AM CDT 4 m g ondansetron ODT (ZOFRAN-ODT) disintegrating tablet 4 mg 4 mg, oral, Every 6 hours PRN, nausea, vomiting, Starting on Ramandeep 05/22/21 at 2311, Indications: Nausea and VomitingIndications:Nausea and Vomiting Given 05/27/2021 8:11 AM CDT 4 mg Given 05/26/2021 9:07 AM CDT 4 mg Given 05/25/2021 1:23 PM CDT 4 mg oxyCODONE (ROXICODONE) tablet 5 mg 5 mg, oral, Every 4 hours PRN, 1st line for pain, Starting on Ramandeep 05/22/21 at 2311, Indications: PainIndications:Pain Given 05/28/2021 12:42 AM CDT 5 mg Given 05/27/2021 6:31 PM CDT 5 mg Given 05/26/2021 11:26 PM CDT [address] (PROTONIX) extended release tablet 40 mg 40 mg, oral, 2 times daily before meals (bkfst, dinner), First dose on Wed05/23/21 at 0730, Do not crush, chew, cut, dissolve, open or otherwise manipulate tablet/capsule., Indications: Treatment of Non-Bleeding Gastric DisorderIndications:Treatment of Non-Bleeding Gastric Disorder Given 05/27/2021 4:22 PM CDT 40 mg Given 05/27/2021 8:11 AM CDT 40 mg Given 05/26/2021 5:34 PM CDT 40 mg potassium chloride ER (KLOR-CON) extended release tablet 40 mEq 40 mEq, oral, Daily, First dose on Wed05/23/21 at 0900, For 325 days, Do not crush, chew, cut, dissolve, open or otherwise manipulate tablet/capsule. Given 05/27/2021 8:11 AM CDT 40 mEq Given 05/26/2021 8:59 AM CDT 40 mEq Given 05/25/2021 7:42 AM CDT 40 mEq sodium chloride 0.9% flush 0.5-20 mL 0.5-20 mL, intra-catheter, Every 8 hours scheduled, First dose on Ramandeep 05/22/21 at 1415, Flush volume based on line type and size. Given 05/27/2021 10:00 PM CDT 1 0 mL Given 05/27/2021 6:16 AM CDT 10 mL Given 05/26/2021 8:21 PM CDT 10 mL sodium chloride 0.9% flush 5-10 mL 5-10 mL, intra-catheter, Every 12 hours scheduled, First dose on Wed05/25/21 at 0945, Flush volume based on line type, size, and protocol. Given 05/27/2021 10:01 PM CDT 10 mL Given 05/27/2021 8:12 AM CDT 10 mL Given 05/26/2021 8:21 PM CDT 10 mL sodium chloride 0.9% flush 5-20 mL 5-20 mL, intra-catheter, As needed, line care, with each use, Starting on [place] 05/25/21 at 0901, Flush volume based on line type, size, and protocol. vancomycin 1,750 mg/517.5 mL sodium chloride 0.9% (premix) 1,750 mg 1,750 mg (rounded from 1,870.5 mg = 15 mg/kg ? 124.7 kg), intravenous, Administer over 120 Minutes, Once, On Ramandeep 05/22/21 at 1059, For 1 dose, Indications: Bone/Joint InfectionIndications:Bone/Joint Infection New Bag 05/22/2021 12:19 PM CDT 1,750 mg documented in this encounter Discontinued Medications Medication Sig Discontinue Reason Start Date End Da te cefepime (MAXIPIME) 1 gram injection Inject 10 mL (2 g total) into the muscle as instructed every 12 (twelve) hours Stop Taking at Discharge 05/27/2021 05/27/2021 sucralfate (CARAFATE) 1 gram tablet Take 1 g by mouth 3 (three) times a day before meals Stop Taking at Discharge 05/28/2021 ferrous sulfate 325 mg (65 mg of elemental iron) tabletIndications:Iron Deficiency Anemia Take 1 tablet (325 mg total) by mouth 2 (two) times a day with breakfast and lunch Stop Taking at Discharge 04/12/2021 05/28/2021 ondansetron ODT (ZOFRAN-ODT) 4 mg disintegrating tabletIndications:Nausea and Vomiting Take 1 tablet (4 mg total) by mouth every 6 (six) hours as needed for nausea or vomiting Stop Taking at Discharge 04/11/2021 05/28/2021 sodium chloride 0.9% injection Infuse 5 mL into a venous catheter daily Stop Taking at Discharge 04/11/2021 05/28/2021 amoxicillin-clavulanate (AUGMENTIN) 875-125 mg per tablet Take 1 tablet by mouth 2 (two) times a day Stop Taking at Discharge 05/06/2021 05/28/2021 documented as of this encounter Active and Recently Administered Medications Times are shown in CDT. Scheduled Medication Order 05/26/2021 05/27/2021 05/28/2021 acetaminophen (TYLENOL) tablet 650 mg 650 mg, oral, 3 times daily, First dose on Wed05/23/21 at 0900 0859 (Given - Provider: Cyndy Sun RN)1537 (Given - Provider: Cyndy Sun RN)2020 (Given - Provider: Jennifer Gant RN) 0811 (Given - Provider: Cyndy Sun RN)1622 (Given - Provider: Cyndy Sun RN)2150 (Given - Provider: Elizabeth Cadena RN) carvediloL (COREG) tablet 3.125 mg 3.125 mg, oral, 2 times daily with meals (bkfst, dinner), First dose on Wed05/23/21 at 0800 0735 (Given - Provider: Jose Humphreys)1734 (Given - Provider: Cyndy Sun RN) 0811 (Given - Provider: Cyndy Sun RN)1851 (Given - Provider: Cyndy Sun RN) DAPTOmycin (CUBICIN) 50 mg/mL sodium chloride 0.9% 550 mg 550 mg, intravenous, at 330 mL/hr, Administer over 2 Minutes, Every 24 hours scheduled, First dose (after last modification) on 05/24/21 at 0900, Please obtain ck levels prior to first dose Do not administer or mix with dextrose-containing solutions, Indications: Abdominal/Pelvic Infection 0859 (Given - Provider: Cyndy Sun RN) 0810 (Given - Provider: Cyndy Sun RN) enoxaparin (LOVENOX) syringe 40 mg 40 mg, subcutaneous, Daily (for enoxaparin), First dose on [place]ande[place] 05/22/21 at 2345, Indications: Deep Vein Thrombosis Prevention 2020 (Given - Provider: Jennifer Gant, PARAM) 215 (Given - Provider: Elizabeth Cadena RN) ferrous sulfate tablet 325 mg 325 mg (65 mg of elemental iron), oral, 2 times daily with meals (bkfst, lunch), First dose on Wed05/23/21 at 0800, For 325 days, Indications: Iron Deficiency Anemia, On hold since 05/24/2021 at 1423 until manually unheld 0800 (Not Given - Provider: Cyndy Sun RN - Reason: See Provider Order)1200 (Not Given - Provider: Cyndy Sun RN - Reason: See Provider Order) 0800 (Not Given - Provider: Cyndy Sun RN - Reason: See Provider Order)1200 (Not Given - Provider: Cyndy Sun RN - Reason: See Provider Order) 0501 (Unheld by Provider - Provider: Automatic Discharge Provider) gabapentin (NEURONTIN) capsule 300 mg 300 mg, oral, Nightly, First dose on [place]ande[place] 05/22/21 at 2345, Do not crush, break, or open. 2020 (Given - Provider: Jennifer Gant RN) 2149 (Given - Provider: Elizabeth Cadena, PARAM) linaCLOtide (LINZESS) capsule 145 mcg 145 mcg, oral, Daily, First dose on Wed05/23/21 at 0900, Do not crush - May open and disperse in water 30 mL, swirl for at least 20 seconds. Administer immediately. Repeat process if any beads remain behind. Flush. Do not chew the beads., Indications: chronic idiopathic constipation, On hold since 05/24/2021 at 1423 until manually unheld 0900 (Not Given - Provider: Cyndy Sun RN - Reason: See Provider Order) 0900 (Not Given - Provider: Cyndy Sun RN - Reason: See Provider Order) 0501 (Unheld by Provider - Provider: Automatic Discharge Provider) meropenem (MERREM) 1,000 mg/110 mL in sodium chloride 0.9% (premix) 1,000 mg 1,000 mg, intravenous, at 220 mL/hr, Administer over 30 Minutes, Every 8 hours scheduled, First dose (after last modification) on Wed05/23/21 at 0100, Indications: Bone/Joint Infection, discitis 0132 (New Bag - Provider: Jennifer Gant RN - Comment: system downtime)0859 (New Bag - Provider: Cyndy Sun RN)1734 (New Bag - Provider: Cyndy Sun RN) 0028 (New Bag - Provider: Jennifer Gant RN)0810 (New Bag - Provider: Cyndy Sun RN)1622 (New Bag - Provider: Cyndy Sun RN) 0043 (New Bag - Provider: Elizabeth Cadena, PARAM) pantoprazole DR (PROTONIX) extended release tablet 40 mg 40 mg, oral, 2 times daily before meals (bkfst, dinner), First dose on Wed05/23/21 at 0730, Do not crush, chew, cut, dissolve, open or otherwise manipulate tablet/capsule., Indications: Treatment of Non-Bleeding Gastric Disorder 0735 (Given - Provider: Jose Humphreys)1734 (Given - Provider: Cyndy Sun RN) 0811 (Given - Provider: Cyndy Sun RN)1622 (Given - Provider: Cyndy Sun RN) potassium chloride ER (KLOR-CON) extended release tablet 40 mEq 40 mEq, oral, Daily, First dose on Wed05/23/21 at 0900, For 325 days, Do not crush, chew, cut, dissolve, open or otherwise manipulate tablet/capsule. 0859 (Given - Provider: Cyndy Sun RN) 0811 (Given - Provider: Cyndy Sun RN) sodium chloride 0.9% flush 0.5-20 mL 0.5-20 mL, intra-catheter, Every 8 hours scheduled, First dose on Wed05/22/21 at 1415, Flush volume based on line type and size. 0648 (Given - Provider: Jennifer Gant RN)1347 (Return to Cabinet - Provider: Cyndy Sun RN)2020 (Given - Provider: Jennifer Gant RN) 0616 (Given - Provider: Jennifer Gant RN)1436 (Return to Cabinet - Provider: Cyndy Sun RN)220 (Given - Provider: Elizabeth Cadena RN) sodium chloride 0.9% flush 5-10 mL 5-10 mL, intra-catheter, Every 12 hours scheduled, First dose on Wed05/25/21 at 0945, Flush volume based on line type, size, and protocol. 0907 (Given - Provider: Cyndy Sun RN)2020 (Given - Provider: Jennifer Gant RN) 0812 (Given - Provider: Cyndy Sun RN)2200 (Given - Provider: Elizabeth Cadena RN) PRN Medication Order 05/26/2021 05/27/2021 05/28/2021 calcium carbonate (TUMS) chewable tablet 1,000 mg 1,000 mg, oral, 4 times daily PRN, indigestion, Starting on Wed05/22/21 at 2311, For 324 days cyclobenzaprine (FLEXERIL) tablet 5 mg 5 mg, oral, 3 times daily PRN, muscle spasms, Starting on Wed05/22/21 at 2311 1737 (Given - Provider: Cyndy Sun, PARAM) ioversoL (OPTIRAY 350) syringe syringe 125 mL (COMPLETED) 125 mL, intravenous, Once in imaging, contrast, Starting on Wed05/27/21 at 1507, For 1 dose 1508 (Contrast Given - Provider: Cuca Alcazar, RT) ondansetron ODT (ZOFRAN-ODT) disintegrating tablet 4 mg 4 mg, oral, Every 6 hours PRN, nausea, vomiting, Starting on [place] 05/22/21 at 2311, Indications: Nausea and Vomiting 0907 (Given - Provider: Cyndy Sun, PARAM) 0811 (Given - Provider: Cyndy Sun RN) oxyCODONE (ROXICODONE) tablet 5 mg 5 mg, oral, Every 4 hours PRN, 1st line for pain, Starting on [place] 05/22/21 at 2311, Indications: Pain 0647 (Given - Provider: Jennifer Gant, PARAM)1537 (Given - Provider: Cyndy Sun RN)2326 (Given - Provider: Jennifer Gant, PARAM) 1831 (Given - Provider: Yaz Torres, PARAM) 0042 (Given - Provider: Elizabeth Cadena RN) sodium chloride 0.9% flush 5-20 mL 5-20 mL, intra-catheter, As needed, line care, with each use, Starting on Wed05/25/21 at 0901, Flush volume based on line type, size, and protocol. documented in this encounter Orders Medications Ordered That Camron ht Not Have Been Administered Count Last Ordered Date First Ordered Date lidocaine PF (XYLOCAINE) 10 mg/mL (1 %) preservative free injection 10-20 mg 05/25/2021 sodium chloride 0.9% flush 5-20 mL 2020 calcium carbonate (TUMS) joann wable tablet 1,000 mg 1 05/22/2021 sodium chloride 0.9% flush 0.5-20 mL 05/08 sodium chloride 0.9% infusion 05/22/2021 Lab Orders Without Results Count Last Ordered D ate First Ordered Date POCT GLUCOSE DEVICE 05/22/2021 Nursing Count Last Ordered Date First Orde red Date CONTINUOUS PULSE OXIMETRY 1 05/22/2021 NURSING COMMUNICATION 2 05/22/2021 Consult Count Last Ordered Date First Orde red Date IP CONSULT TO VASCULAR ACCESS TEAM 1 2020 CONSULT TO WOUND CARE 1 05/23/2021 IP CONSULT TO NUTRITION SERVICES 1 05/23/20 21 IP CONSULT TO INFECTIOUS DISEASES 1 021 IP CONSULT TO ORTHO SPINE 1 05/22/2021 ADT Patient Update Count Last Ordered Date Firs t Ordered Date ED IP DECISION TO ADMIT 1 05/22/2021 documented in this encounter Additional Health Concerns Infection Onset Date Last Indicated Resolved Time MRSA Comment: 03/31/2021 IP Review - 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 Not a candidate for isolation discontinuation at this time. 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
--- OUTSIDE RECORDS SUMMARY | 2024-11-11 02:11 | XMS_ITS | Encounter Summary ---
Author Organization [facility] Address [address] [place] [address] Phone Care Team Providers Care Family Support Coordinator Name Role Phone Saw Louie MD Primary Care Provider [phone] Reason for Referral * MRI/CAT/PET Scan (Routine) - Closed Specialty Diagnoses / Procedures Referred By Contac t Referred To Contact Radiology Diagnoses Spinal abscess (CMS/HCC) (HCC) Procedures MRI Lumbar Spine W WO Contrast Evette Guevara NP Phone: tel: fax: [address] [address] Referral ID Status Reason Start Date Expiration Date Visits Re quested Visits Authorized [id number] Closed 05/15/2021 06/14/2022 1 1 Reason for Visit * Reason Comments Follow-up Encounter Details Date Type Department Care Team (Late st Contact Info) Description 05/15/2021 10:00 AM CDT Office Visit [facility] Infectious Diseases [address] [place] [address] [address] [place] [id number] Evette Guevara NP [address] [facility] [id number] [place] [address] Spinal abscess (CMS/HCC) (Primary Dx) Social History Tobacco Use Types [...] on file 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 Gender Identity Male 05/21/2022 3:19 PM CDT Sexual Orientation Straight 05/21/2022 3: 19 PM CDT documented as of this encounter Last Filed Vital Signs Vital Sign Reading Time Taken Comments Blood Pressure 104/69 05/15/2021 10:14 AM CDT Pulse 99 05/15/2021 10:14 AM CDT Temperature 35.8 ??C (96.4 ??F) 05/15/2021 10:14 AM C DT Respiratory Rate - - Oxygen Saturation - - Inhaled Oxygen Concentration - - Weight - - Height 165.1 cm (5' 5 ) 05/15/2021 10:14 AM CDT Body Mass Index - - documented in this encounter Progress Notes * Evette Guevara, TASHA - 05/15/2021 10:00 AM CDT Infectious Disease Return Visit Patient Name: Shawn Casey Jr. [facility] INFECTIOUS DISEASES [address] [place] [id number] Subjective Chief complaint of Lumbosacral spine fluid collection/abscess in the context of neurogenic spine HPI: Shawn Casey Jr. is a 35 y.o. male with a paraplegia from [facility] with bilateral BKA and neobladder who presented to OSH on 03/22 with persistent fever, and transferred here for further care. On admission he was transiently hypotensive. Initial impression at OSH was sepsis from UTI. Treated with multiple antibiotics without resolution of fever. Eventually obtained CT AP which showed bilateral perinephric fat stranding, unchanged bladder and urethral stones with large soft tissue mass and gas bubbles at lumbosacral area, possible tumor. He was transferred her for further care. ?? Here he had normal vital signs except persistent fever. WBC count was 13.6. Decubitus sacral ulcerswithout signs of infection. MRI spine was done and showed destruction at the lumbosacral junction with disorganized bone fragments and a fluid collection in the calf between the small residual components of the L5 vertebral body which displaces the iliopsoas muscles. Findings were felt to be due toneurogenic spine. This fluid collection was aspirated by IR on 03/31 and culture ws positive for a wild-type E coli. He was being treated with vancomycin and meropenem. Ortho spine was consulted and felt that surgery for source control would be too morbid for the patient and likely to cause more harm than benefits. (see orthopedics note from 04/07/2021). In this context, we recommended to treat with IV ceftriaxone 2 grams every 24 hours for 6 weeks, followed by oral suppression, likely amoxicillin/clavulanate, for additional 6 weeks. Recommend repeatMRI lumbosacral spine W and WO contrast before stopping oral antibiotics (about 3 months after 03/28) to reassess status of fluid collection in order to help further decision making about duration of c hronic suppression. This plan was discussed with patient and he agreed with plan of care. 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 Discussed with Dr. Liang, will start suppressive Augmentin now and get pt rescheduled for ID follow up. Pt presents to clinic today from [facility] in [place], [place]. Pt states he is doing ok overall, though endorses it was a bumpy ride to get here. Pt states he is tolerating his PO abxwithout issue. Denies any worsening pain. He does report that he has had a couple episodes of cold sweats at night, but no fever/chills. Pt states he still has a lawson in now since his surgery for bladder stone in April. He states they plan to remove it later this month. Pt reports his urine is now clear, denies any odor. Organism: E coli Retained hardware: no Recent surgery: no Please see consult note dated: 03/30/21 Current antibiotic therapy: Augmentin - s/p Ceftriaxone 2 g IV q24 hours x6 weeks Antibiotic start date: 03/28/2021 Anticipated stop date: pending repeat MRI Compliance with antibiotics: missed 0 doses. The patient has completed 8 weeks of antibiotic therapy. Adverse effects from antibiotic therapy: none reported ROS: Review of Systems Constitutional: Positive for diaphoresis. Negative for fever. Several episodes of cold sweats at night. Denies any fever. Respiratory: Negative. Negative for cough and shortness of breath. Cardiovascular: Negative. Negative for chest pain. Gastrointestinal: Negative. Negative for nausea. Genitourinary: Endorses lawson in place, see interval history for details. Musculoskeletal: Positive for back pain. Pt endorses some ongoing pain, denies any worsening. Neurological: Denies any changes. Objective Medical Conditions Diagnosis ??? Stricture, urethra ??? Pancreatitis ??? Arthralgia of hip ??? Complicated UTI (urinary tract infection) ??? Paraplegia (CMS/HCC) ??? HTN (hypertension) ??? Continuous leakage of urine ??? Pressure injury of skin of buttock ??? Bladder stones ??? Anemia ??? Infected fluid collection without fistula ??? S/P urological surgery ??? Hyponatremia ??? Discharge planning issues ??? Spinal abscess (CMS/HCC) Allergies: Metoclopramide Current Outpatient Medications Medication ??? amoxicillin-clavulanate (AUGMENTIN) 875-125 mg per tablet ??? calcium carbonate (TUMS) 500 mg calcium (200 mg of elemental calcium) chewable tablet ??? carvediloL (COREG) 3.125 mg tablet ??? ferrous sulfate 325 mg (65 mg of elemental iron) tablet ??? gabapentin (NEURONTIN) 300 mg capsule ??? HYDROcodone-acetaminophen (NORCO) 10-325 mg per tablet ??? linaCLOtide (LINZESS) 145 mcg capsule ??? ondansetron ODT (ZOFRAN-ODT) 4 mg disintegrating tablet ??? pantoprazole DR (PROTONIX) 40 mg EC tablet ??? polyethylene glycol (MIRALAX) 17 gram packet ??? potassium chloride ER (KLOR-CON) 20 mEq CR tablet ??? senna-docusate (PERICOLACE) 8.6-50 mg ??? sucralfate (CARAFATE) 1 gram tablet ??? cyclobenzaprine (FLEXERIL) 5 mg tablet ??? heparin 10 unit/mL syringe ??? sodium chloride 0.9% injection No current facility-administered medications for this visit. Vitals: Most Recent : Vitals BP 104/69 (BP Location: Left arm, Patient Position: Sitting) Pulse 99 Temp (!) 35.8 ??C (96.4 ??F) (Temporal) Ht 165.1 cm (5' 5 ) BMI 45.76 kg/m?? Physical Exam Constitutional: General: He is not in acute distress. Eyes: Pupils: Pupils are equal, round, and reactive to light. Cardiovascular: Rate and Rhythm: Normal rate. Pulmonary: Effort: Pulmonary effort is normal. No respiratory distress. Breath sounds: Normal breath sounds. Abdominal: Palpations: Abdomen is soft. Musculoskeletal: Comments: Pit is s/p bilateral BKA. Neurological: Mental Status: He is alert and oriented to person, place, and time. Mental status is at baseline. Lab/Microbiology/Radiology/Diagnostic Review: Laboratory: Lab Results Component Value Date WBC 12.2 (H) 05/13/2021 HGB 10.2 (L) 05/13/2021 HCT 33.2 (L) 05/13/2021 MCV 82.0 05/13/2021 LABPLAT 481 (H) 05/13/2021 Lab Results Component Value Date GLUCOSE 101 05/13/2021 CALCIUM 10.1 05/13/2021 SODIUM 139 05/13/2021 POTASSIUM 4.5 05/13/2021 CO2 26 05/13/2021 CHLORIDE 101 05/13/2021 BUNSER 18 05/13/2021 CREATININE 1.08 05/13/2021 Lab Results Component Value Date ALT 40 04/09/2021 AST 49 04/09/2021 ALKPHOS 88 04/09/2021 BILITOT 0.4 04/09/2021 Lab Results Component Value Date CRP 162.1 (H) 04/10/2021 Lab Results Component Value Date SEDRATE 98 (H) 04/10/2021 Micro: Lab Results Component Value Date MICROBIOLOGY (.) 04/09/2021 Final Report: Enterococcus species, vancomycin resistant 03/31/21 lumbar aspirate: + E.coli Escherichia coli INTERPRETATION Ampicillin Susceptible Ampicillin with Sulbactam Susceptible Cefazolin Susceptible Cefepime Susceptible Ceftazidime Susceptible Ceftriaxone Susceptible Ciprofloxacin Susceptible Gentamicin Susceptible Meropenem Susceptible Piperacillin/Tazobactam Susceptible Trimethoprim with Sulfamethoxazole Susceptible Imaging: XR Chest Pa Lateral 2 Views Result Date: 04/06/2021 Narrative: EXAMINATION: 2 view chest radiograph Impression: Comparison is made to prior study of [...] cava. Electronically signed by: Austen Garcia M.D. IR Fluid Aspiration Result Date: 03/31/2021 Narrative: EXAMINATION: L5-S1 fluid collection aspiration under CT guidance HISTORY: Paraplegia with L5-S1 abscess versus neurogenic spine. ATTENDING PRESENCE: Dr. Rhett Gomez M.D., theattending radiologist, was present from the beginning to the end of the procedure. SEDATION: The patient did not require conscious sedation for the procedure. TECHNIQUE: The risks, benefits and alternatives were discussed and informed consent was obtained. Prior to beginning the procedure, [place] Protocol was performed to confirm the patient's identity and the planned procedure. Sterile barriers used during the procedure included cap, mask, hand hygiene, sterile gloves, and sterile drape. Chloraprep was used for cutaneous antisepsis. The patient was placed prone on the CT table. Local anesthesia are not utilized due to absent sensation. An 18-gauge needle was then introduced into the L5-S1 fluid collection under CT guidance. Approximately 5 mL of cloudy roldan fluid was withdrawn. The needle was removed. The skin was cleansed with hydrogen peroxide, and a bandage was placed. Complication: None Type: None ESTIMATED BLOOD LOSS: None CONDITION: Stable condition. DISCHARGED TO: Nursing division FINDINGS: A proximally 5 mL cloudy roldan fluid was aspirated. CT images confirm the needle tip to be within the fluid collection. Impression: 1. L5-S1 fluid collection aspiration under CT guidance. 5 mL cloudy roldan fluid aspiratedand sent for cell count, Gram stain, and culture. Electronically signed by: Rhett Gomez M.D. Assessment/Plan 35 y.o. male with a paraplegia from [facility] with bilateral BKA and neobladder who presented to OSH on 03/22 with persistent fever, and transferred here for further care. On admission he was transiently hypotensive. Initial impression at OSH was sepsis from UTI. CT AP which showed bilateral perinephric fat stranding, unchanged bladder and urethral stones with large soft tissue mass and gas bubbles at lumbosacral area, possible tumor, transferred to [facility]. Decubitus sacral ulcers without signs of infection. MRI spine showed destruction at the lumbosacral junction with disorganized bone fragments and afluid collection in the calf between the small residual components of the L5 vertebral body which di splaces the iliopsoas muscles. Findings were felt to be due to neurogenic spine. Fluid collection aspirated by IR on 03/31, Cx + wildtype E coli. Ortho spine consulted and felt that surgery for sourcecontrol would be too morbid for the patient and likely to cause more harm than benefits. In this context, we recommended to treat with IV ceftriaxone 2 grams every 24 hours for 6 weeks, followed by oral suppression, likely amoxicillin/clavulanate, for additional 6 weeks. Pt was discharged from SNF off abx after 6 weeks, Augmentin started. Plan to repeat MRI prior to stopping abx. Spinal abscess (CMS/HCC) - Continue Augmentin 875-125mg BID for treatment [...] thrombocytopenia, interstitial nephritis, LFT elevation, cholestatic hepatitis. Follow up: - 4 weeks Visit Diagnosis: 1. Spinal abscess (CMS/HCC) The supervising MD present in the office suite for Nurse Practitioner is Dr. Villareal. documented in this encounter Miscellaneous Notes * Assessment & Plan Note - Evette Guevara NP - 05/15/2021 10:58 AM CDT Associated Problem(s): Spinal abscess (CMS/HCC) (HCC) - Continue Augmentin 875-125mg BID for treatment [...] thrombocytopenia, interstitial nephritis, LFT elevation, cholestatic hepatitis. documented in this encounter Plan of Treatment Not on file documented as of this encounter Procedures Procedure Name Priority Date/Time Associated Diagnosis Comments ERYTHROCYTE SEDIMENTATION RATE Routine 05/15/2021 10:47 AM CDT Spinal abscess (CMS/HCC) CRP (ACUTE PHASE) Routine 05/15/2021 10: 47 AM CDT Spinal abscess (CMS/HCC) documented in this encounter Results * MRI Lumbar Spine W WO Contrast (06/06/2021 5:32 PM CDT) Anatomical Region Laterality Modality Spine N/A Magnetic Resonan ce 06/07/2021 10:4 4 AM CDT Impressions 06/07/2021 10:59 AM CDT 1. 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 When compared to March 2021, there is increase in size of the collections with development of a new large right posterior paraspinal multiloculated collection. 2. ??The degree of osseous destruction involving L5 is unchanged. Dictated by: Maikol Barlow MD The radiology attending physician has personally reviewed this study, and had reviewed and/or edited this written report and agrees with it. Electronically signed by: Otoniel Smart M.D. Narrative 06/07/2021 10:59 AM CDT EXAMINATION: Magnetic resonance imaging (MRI) of the lumber spine without and with ??contrast. HISTORY: History of paraplegia, neurogenic bladder, and lumbosacral junction destruction concerning for spinal neuroarthropathy. TECHNIQUE: Multiplanar multi-weighted MRI of the lumbar spine was performed without and with ??intravenous contrast using the standard lumbar spine protocol. [...] is extensive peripheral enhancement of these collections. ??Ventral and dorsal epidural enhancement of the involved L5 and S1 vertebral bodies extending cranially into the canal at the level of L3 is noted, mildly increased from prior. There is near complete destruction of most of the L5 vertebral body, with only the superior endplate remaining. The degree of destruction is similar from 03/29/2021. 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 There is significant atrophy of the paraspinal musculature. The partially visualized retroperitoneal structures show bilateral renal cysts and significant atrophy of the left greater than right psoas muscles. There is straightening of the remaining lumbar lordosis. The remaining lumbar vertebral bodies from L1 through L4 are maintained in height. The conus medullaris terminates at the level of L1 and is characterized by chronic myelomalacia. Intervertebral disc heights from T12-L1 through L4-L5 are maintained. Procedure Note Otoniel Smart III, MD PhD - 06/07/2021 EXAMINATION: Magnetic resonance imaging (MRI) of the [...] bodies extending cranially into the canal at the level of L3 is noted, mildly increased from prior. There is near complete destruction of most of the L5 vertebral body, with only the superior endplate remaining. The degree of destruction is similar from 03/29/2021. 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 There is significant atrophy of the paraspinal musculature. The partially visualized retroperitoneal structures show bilateral renal cysts and significant atrophy of the left greater than right psoas muscles. There is straightening of the remaining lumbar lordosis. The remaining lumbar vertebral bodies from L1 through L4 are maintained in height. The conus medullaris terminates at the level of L1 and is characterized by chronic myelomalacia. Intervertebral disc heights from T12-L1 through L4-L5 are maintained. IMPRESSION: 1. 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 When compared to March 2021, there is increase in size of the collections with development of a new large right posterior paraspinal multiloculated collection. 2. The degree of osseous destruction involving L5 is unchanged. Dictated by: Maikol Barlow MD The radiology attending physician has personally reviewed this study, and had reviewed and/or edited this written report and agrees with it. Electronically signed by: Otoniel Smart M.D. Evette Guevara NP [facility] MRI PROCEDURES Final Result * (ABNORMAL) Erythrocyte sedimentation rate (05/15/2021 10:47 AM CDT) Erythrocyte sedimentation rate 97(H) 1 - 15 mm/hr [facility] Blood specimen (specimen) 05/15/2021 10:47 AM CDT 05/15/2021 2:53 PM CDT Evette Guevara TAKE AWAY ATTENDANT LAB BLOOD ORDERABLES Fin al Result Performing Organization Address [facility] Co de Phone Number [facility] Department [place] [address] * (ABNORMAL) CRP (acute phase) (05/15/2021 10:47 AM CDT) CRP 94.2(H) <=10.0 mg/L [facility] Blood specimen (specimen) 05/15/2021 10:47 AM CDT 05/15/2021 2:53 PM CDT Evette Guevara TAKE AWAY ATTENDANT LAB BLOOD ORDERABLES Fin al Result Performing Organization Address [facility] de Phone Number [facility] Department [place] [address] documented in this encounter Visit Diagnoses Diagnosis Spinal abscess (CMS/HCC) ([facility])- Primary Acute osteomyelitis, other specified site Spinal abscess (CMS/HCC) ([facility]) Acute osteomyelitis, other specified site documented in this encounter Additional Health Concerns Infection Onset Date Last Indicated Resolved Time MRSA Comment: 03/31/2021 IP Review - 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 Not a candidate for isolation discontinuation at this time. 

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
--- OUTSIDE RECORDS SUMMARY | 2024-11-11 02:11 | XMS_ITS | Encounter Summary ---
Author Organization [facility] Healthcare Address [address] [place] [address] Care Team Providers Care Logistic Specialist Name Role Phone Saw Louie MD Primary Care Provider [phone] Encounter Details Date Type Department Care Team (Late st Contact Info) Description 05/15/2021 2:55 PM CDT Lab [address] [address] Social History Tobacco Use Types Packs/Day Years Used Date Smoking Tobacco: Former AUDIT-C Answer Date Recorded Q1: How often do you have a drink containing alc ohol? 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
--- OUTSIDE RECORDS SUMMARY | 2024-11-11 02:11 | XMS_ITS | Encounter Summary ---
Author Organization [facility] Address [address] [place] [address] Phone Care Team Providers Care Pediatric Physical Therapy Assistant Name Role Phone Saw Louie MD Primary Care Provider [phone] Encounter Details Date Type Department Care Team (Late st Contact Info) Description 05/28/2021 Telephone [facility] Infectious Diseases [address] [place] [phone] Rosalina Feliz Social History Tobacco Use [...] on file Legal Sex Male 5:38 AM HEAD UP OPERATOR HELPER Gender Identity Male 05/21/2022 3:19 PM CDT Sexual Orientation Straight 05/21/2022 3: 19 PM CDT documented as of this encounter Miscellaneous Notes * Telephone Encounter - Kasia Soriano - 05/28/2021 11:56 AM CDT Updated orders * Telephone Encounter - Rosalina Feliz - 05/28/2021 9:54 AM CDT [facility] on [facility] order. documented in this encounter Plan of Treatment [...] watcher auto flagging 07/01/2013 07/01/201310/03 4:34 PM HEAD UP OPERATOR HELPER VRE 04/09/2021 04/09/2021 01/06/2022 4:00 AM HEAD UP OPERATOR HELPER documented as of this encounter Care Teams Pediatric Physical Therapy Assistant Relationship Specialty Start Date End Date Saw Louie MD [address] [place] [address] PCP - General 03/31/21 07/13/22 documented as of this encounter
--- OUTSIDE RECORDS SUMMARY | 2024-11-11 02:11 | XMS_ITS | Encounter Summary ---
Author Organization [facility] Healthcare Address [address] [place] [address] Care Team Providers Care Starch Cooker Name Role Phone Saw Louie MD Primary Care Provider Reason for Referral * MRI/CAT/PET Scan (Routine) - Closed Specialty Diagnoses / Procedures Referred By Contac t Referred To Contact Radiology Diagnoses Spinal abscess (CMS/HCC) (HCC) Procedures MRI Lumbar Spine W WO Contrast Evette Guevara NP Phone: tel: fax: [address] [address] Referral ID Status Reason Start Date Expiration Date Visits Re quested Visits Authorized [id number] Closed 05/15/2021 06/14/2022 1 1 Reason for Visit * MRI/CAT/PET Scan (Routine) - Closed Specialty Diagnoses / Procedures Referred By Contac t Referred To Contact Radiology Diagnoses Spinal abscess (CMS/HCC) (HCC) Procedures MRI Lumbar Spine W WO Contrast Evette Guevara NP Phone: tel: fax: [address] [address] Referral ID Status Reason Start Date Expiration Date Visits Re quested Visits Authorized [id number] Closed 05/15/2021 06/14/2022 1 1 Encounter Details Date Type Department Care Team (Latest Contact Info) Description 06/06/2021 4:15 PM CDT - 06/06/2021 11:59 PM CDT Hospital Encounter [facility] [address] [place] [address] Maikol Stanley Jr., MD PhD [address] [place] [address] Evette Guevara, TASHA [address] [facility] [id number] [place] [address] Spinal abscess (CMS/HCC) ([facility]) Discharge Disposition: Discharge to home or self [...] on file Legal Sex Male 5:38 AM HOSPITAL PERSONNEL DIRECTOR Gender Identity Male 05/21/2022 3:19 PM CDT [...] Procedure Name Priority Date/Time Associated Diagnosis Comments MRI LUMBAR SPINE W WO CONTRAST Schedule Routine, Read Routine (OP Routine) 06/06/2021 5:32 PM CDT Spinal abscess (CMS/HCC) (HCC) documented in this encounter Results * MRI [...] by: Otoniel Smart M.D. Evette Guevara NP IMG MRI PROCEDURES Final Result documented in this encounter Visit Diagnoses Diagnosis Spinal abscess (CMS/HCC) (HCC) Acute osteomyelitis, other specified site documented in this encounter Administered Medications Inactive Administered Medications - up to 3 most recent administrations Medication Order MAR Action Action Date Dose Rate Site gadoterate meglumine (DOTAREM) 0.5 mmol/mL injection 25.28 mL 25.28 mL (0.1 mmol/kg ? 126.4 kg), intravenous, Once in imaging, contrast, Starting on Wed06/06/21 at 1706, For 1 dose, Imaging Protocol Orders Contrast Given 06/06/2021 5:06 PM CDT 25.28 mL heparin 10 unit/mL flush 20-50 Units 20-50 Units (2-5 mL), intra-catheter, As needed, line care, with each use, Starting on Wed06/06/21 at 1759, Do not use with [place]ong catheter. 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 Not a candidate for isolation discontinuation at this time. Ananda Murphy generated from hl7 02/01/2012 02/01/2012 06/25/2021 5:00 AM C DT MDR gram neg/ESBL Comment:Germ watcher auto flagging 07/01/2013 07/01/201310/03 4:34 PM HOSPITAL PERSONNEL DIRECTOR VRE 04/09/2021 04/09/2021 01/06/2022 4:00 AM HOSPITAL PERSONNEL DIRECTOR documented as of this encounter Care Teams Starch Cooker Relationship Specialty Start Date End Date Saw Louie MD [address] [place] [address] PCP - General 03/31/21 07/13/22 documented as of this encounter
--- OUTSIDE RECORDS SUMMARY | 2024-11-11 02:11 | XMS_ITS | Encounter Summary ---
Author Organization [facility] Address [address] [place] [address] Phone Care Team Providers Care Corrosion Technician Name Role Phone Saw Louie MD Primary Care Provider [phone] Reason for Visit * Reason Comments Follow-up Encounter Details Date Type Department Care Team (Late st Contact Info) Description 07/03/2021 9:40 AM CDT Office Visit [facility] Infectious Diseases [address] [place] [address] [address] [place] [phone] Evette Guevara, TASHA [address] [facility] [address] [place] [address] Infected fluid collection without fistula (Primary Dx); Spinal abscess (CMS/HCC) (HCC) Social History Tobacco Use Types [...] on file Legal Sex Male 5:38 AM BOTTOM LOADER Gender Identity Male 05/21/2022 3:19 PM CDT Sexual Orientation Straight 05/21/2022 3: 19 PM CDT documented as of this encounter Last Filed Vital Signs Vital Sign Reading Time Taken Comments Blood Pressure 145/84 07/03/2021 10:06 AM CDT Pulse 108 07/03/2021 10:06 AM CDT Temperature 35.8 ??C (96.4 ??F) 07/03/2021 10:06 AM C DT Respiratory Rate - - Oxygen Saturation - - Inhaled Oxygen Concentration - - Weight - - Height 165.1 cm (5' 5 ) 07/03/2021 10:06 AM CDT Body Mass Index - - documented in this encounter Ordered Prescriptions Prescription Sig Dispense Quantity Refills Last Filled Start Date End Date amoxicillin-clavul anate (AUGMENTIN) 875-125 mg per tablet Take 1 tablet by mouth every 12 (twelve) hours 60 tablet 07/03/2021 08/02/2021 doxycycline (VIBRAMYCIN) 100 mg capsule Take 1 tablet/capsu le (100 mg total) by mouth every 12 (twelve) hours 60 tablet/capsule 07/03/2021 08/02/2021 documented in this encounter Progress Notes * Evette Guevara, TASHA - 07/03/2021 9:40 AM CDT Infectious Disease Return Visit Patient Name: Shawn Casey [facility] INFECTIOUS DISEASES [address] [place] [phone] Subjective Chief complaint of Lumbosacral discitis/osteomyelitis with [...] started on Augmentin and [facility] when he noticed worsening abdominal pain, malaise [...] 24 hours, IV meropenem??1g every 8 hours x at least 6 week duration from admission. As Orthopedic spine consult??has no operative plans, will follow course of IV antibiotics by oral suppression toprevent progression. ?? Primary team reached out to [...] patient to be placed. Interval History: Pt was continued at last visit based on new collection on imaging, Ortho continues to state pt not surgical candidate. He present today from rehab for follow-up. He states he is feeling the same overall. Denies any fever, chills, NS, increase in pain, or other concerns at this time. Pt does state that he wants to keep the PICC line while he is in rehab d/t blood draws and that he is going to be having surgery next month. Discussed that rehab would have to take over management of PICC line once IV abx were stopped. Organism: Unknown Retained hardware: no Recent surgery: none Please see consult note dated: 05/22/21 Current antibiotic therapy: Daptomycin 550mg IV Q24H, Cefepime 2g IV Q12H, Metronidazole 500mg PO Q8H Antibiotic start date: 05/22/2021 Anticipated stop date: 07/02/2021 Compliance with antibiotics: missed 0 doses. The patient has completed 6 weeks of antibiotic therapy. PICC line/central line issues: none, RUE PICC line Adverse effects from antibiotic therapy: none reported ROS: Review of Systems Constitutional: Negative. Negative for chills and fever. Respiratory: Negative. Negative for cough and shortness of breath. Cardiovascular: Negative. Gastrointestinal: Negative. Negative for diarrhea and nausea. Genitourinary: Denies any changes. Musculoskeletal: Negative. Neurological: Negative. Denies any changes from baseline. [...] Discharge planning issues ??? Spinal abscess (CMS/HCC) ([facility]) ??? Abdominal pain ??? Severe malnutrition (CMS/HCC) ([facility]) Allergies: Metoclopramide Current Outpatient Medications Medication [...] visit. Vitals: Most Recent : Vitals BP 145/84 (BP Location: Left arm, Patient Position: Sitting) Pulse 108 Temp (!) 35.8 ??C (96.4 ??F) (Temporal) [...] Mental status is at baseline. Lab/Microbiology/Radiology/Diagnostic Review: 06/10/21 labs: BG 85 Na [...] Date MICROBIOLOGY Final Report: Negative 05/23/2021 Imaging: MRI Lumbar Spine W WO Contrast [...] pelvis at the inferior margin of the [id number]. An inferior vena cava filter is present. [...] cava filter is again seen. The large collectionof mixed soft tissue and fluid density material, centered at L5- S1, is again seen. The central lesion remains [...] was obtained. Prior to beginning the procedure, Parkman Protocol was used to confirm the patient's [...] dilating the tract to 12 Fr. A 12-Honduran pigtaildrainage catheter was then advanced over the [...] fluid collection drainage with placement of a 12-Honduran pigtail drainage catheter. PLAN: This tube should be flushed with saline 10 mL twice a day. Interventional radiology will continue to follow this patient. Dictated by: Jessee iRvera M.D. The radiology attending physician has personally reviewed this study, and had reviewed and/or edited this written report and agrees with it. Electronically signed by: Leoenl Tomas M.D. POCUS Other Result Date: 05/14/2021 [...] met resistance when replacing. Appears to be gettingstuck in false tract. Electronically signed by Vic [...] Bladder volume (ml) =: 0 Interpretation: No sonographicevidence of renal tract obstruction Other: Comments: Completely [...] started on Augmentin and was [facility] when he noticed worsening abdominal pain, malaise [...] to cefe/flagyl/daptomycin. ?? Spinal abscess (CMS/HCC) - Will stop IV abx at this point as pt has completed 6 weeks of IV abx. Given new fluid collection on recent imaging, and pt's chronic infection and lack of surgical options, will switch to PO abx with doxycycline 100mg BID and augmenting 875-125mg BID for continued treatment of lumbosacral discitis /osteomyelitis with epidural abscess and paracolic fluid collection. - Will refer pt to [facility] radiology for possible drainage, culture ordered as [...] LFT elevation, cholestatic hepatitis. Follow up: - Return in about 6 weeks (around 08/14/2021). Visit Diagnosis: 1. Infected fluid collection without fistula 2. Spinal abscess (CMS/HCC) (HCC) Evette Meeks FNP-, the Nurse Practitioner, have reviewed this patient with Dr. Villareal. The supervising MD present in the office suite for Nurse Practitioner is Dr. Villareal. documented in this encounter Miscellaneous Notes * Assessment & Plan Note - Evette Guevara NP - 07/07/2021 12:30 PM CDT Associated Problem(s): Spinal abscess (CMS/HCC) (HCC) - Will stop IV abx at this point as pt has completed 6 weeks of IV abx. Given new fluid collection on recent imaging, and pt's chronic infection and lack of surgical options, will switch to PO abx with doxycycline 100mg BID and augmenting 875-125mg BID for continued treatment of lumbosacral discitis /osteomyelitis with epidural abscess and paracolic fluid collection. - Will refer pt to [facility] radiology for possible drainage, culture ordered as [...] Procedure Name Priority Date/Time Associated Diagnosis Comments GLUCOSE, RANDOM (OUTREACH) Routine 07/03/2021 10:50 AM CDT Infected fluid collection without fistula EGFR Routine 07/03/2021 10:50 AM CDT Infected fluid collection without fistula DIFFERENTIAL AUTO Routine 07/03/2021 10: 50 AM CDT Infected fluid collection without fistula COMPREHENSIVE METABOLIC PANEL WITHOUT GLUCOSE (OUTREACH) Routine 07/03/2021 10:50 AM CDT Infected fluid collection without fistula COMPREHENSIVE METABOLIC PANEL (OUTREACH) Routine 07/03/2021 10:50 AM CDT Infected fluid collection without fistula CBC WITH AUTO DIFFERENTIAL Routine 07/03/2021 10:50 AM CDT Infected fluid collection without fistula ERYTHROCYTE SEDIMENTATION RATE Routine 07/03/2021 10:50 AM CDT Infected fluid collection without fistula CRP (ACUTE PHASE) Routine 07/03/2021 10: 50 AM CDT Infected fluid collection without fistula documented in this encounter Results * eGFR (07/03/2021 10:50 AM CDT) eGFR >90 90 - 130 mL/min/1.7 3 m2 [facility] Comment: Interpretive Data Reference Interval Normal [...] interpretive data was last reviewed 2020 Blood 07/03/2021 10:5 0 AM CDT 07/03/2021 5:22 PM CDT Evette Guevara NP LAB BLOOD ORDERABLES Fin al Result [facility] Department [place] [address] * Differential, auto (07/03/2021 10:50 AM CDT) Pathologist [facility] Neutrophil abs 2.7 1.7 - 6.5 K/cumm [facility] Imm gran abs 0.0 0.0 - 0.1 K/cumm [facility] Lymphocyte abs 1.0 0.8 - 3.3 K/cumm [facility] Monocyte abs 0.3 0.2 - 0.8 K/cumm [facility] Eosinophil abs 0.2 0.0 - 0.5 K/cumm [facility] Basophil abs 0.0 0.0 - 0.1 K/cumm [facility] Neutrophil pct 64.1 % [facility] Comment: Interpretive Data Percent cell count reference ranges are not reported, since discordance with absolute values may lead to misinterpretation of CBC data. Current Interpretive Data was last revised on 2018. Imm gran pct 0.7 % [facility] Comment: Interpretive Data Percent cell count reference ranges are not reported, since discordance with absolute values may lead to misinterpretation of CBC data. Current Interpretive Data was last revised on 2018. Lymphocyte pct 23.0 % [facility] Comment: Interpretive Data Percent cell count reference ranges are not reported, since discordance with absolute values may lead to misinterpretation of CBC data. Current Interpretive Data was last revised on 2018. Monocyte pct 6.2 % [facility] Comment: Interpretive Data Percent cell count reference ranges are not reported, since discordance with absolute values may lead to misinterpretation of CBC data. Current Interpretive Data was last revised on 2018. Eosinophil pct 5.5 % [facility] Comment: Interpretive Data Percent cell count reference ranges are not reported, since discordance with absolute values may lead to misinterpretation of CBC data. Current Interpretive Data was last revised on 2018. Basophil pct 0.5 % [facility] Comment: Interpretive Data Percent cell count reference ranges are not reported, since discordance with absolute values may lead to misinterpretation of CBC data. Current Interpretive Data was last revised on 2018. Blood 07/03/2021 10:5 0 AM CDT 07/03/2021 5:05 PM CDT us Evette Guevara NP LAB BLOOD ORDERABLES Fin al Result [facility] Department [place] [address] * Glucose, random (Outreach) (07/03/2021 10:50 AM CDT) Pathologist [facility] Glucose 75 70 - 199 mg/dL [facility] Comment: Interpretive Data Fasting glucose [...] Current interpretive data was last revised 2017. Blood 07/03/2021 10:5 0 AM CDT 07/03/2021 5:05 PM CDT Evette Guevara NP LAB BLOOD ORDERABLES Fin al Result [facility] Department [place] [address] * (ABNORMAL) Comprehensive metabolic panel, without glucose (Outreach) (07/03/2021 10:50 AM CDT) [facility] Sodium 140 135 - 145 mmol/L [facility] Potassium, pl 4.1 3.3 - 4.9 mmol/L [facility] Chloride 100 97 - 110 mmol/L [facility] CO2 25 22 - 32 mmol/L [facility] Anion gap 15 2 - 15 mmol/L [facility] BUN 20 8 - 25 mg/dL [facility] Creatinine 0.67(L) 0.80 - 1.30 mg/dL [facility] Calcium 9.3 8.5 - 10.3 mg/dL [facility] Protein, pl 8.2 6.5 - 8.5 g/dL [facility] Albumin 3.8 3.5 - 5.0 g/dL [facility] Bilirubin, total 0.3 0.1 - 1.2 mg/dL [facility] Alk phos 72 40 - 130 Units/L [facility] AST 25 10 - 50 Units/L [facility] ALT 16 7 - 55 Units/L [facility] Blood 07/03/2021 10:5 0 AM CDT 07/03/2021 5:05 PM CDT Evette Guevara NP LAB BLOOD ORDERABLES Fin al Result Performing Organization Address [facility] de Phone Number [facility] [place] [address] * (ABNORMAL) CBC with auto differential (07/03/2021 10:50 AM CDT) WBC 4.2 3.8 - 9.9 K/cumm [facility] Hgb 11.7(L) 13.0 - 17.5 g/dL [facility] Hct 38.0(L) 38.9 - 50.3 % [facility] Plt 215 150 - 400 K/cumm [facility] MPV 13.3(H) 9.1 - 12.3 fL [facility] RBC 4.55 4.30 - 5.80 M/cumm [facility] MCV 83.5 81.3 - 96.4 fL [facility] MCH 25.7(L) 27.1 - 33.3 pg [facility] MCHC 30.8(L) 32.3 - 35.7 g/dL [facility] RDW CV 18.6(H) 11.1 - 14.9 % [facility] RDW SD 57.1(H) 35.7 - 48.1 fL [facility] NRBC abs 0.00 0.00 - 0.01 K/cumm [facility] Blood 07/03/2021 10:5 0 AM CDT 07/03/2021 5:05 PM CDT Evette Guevara NP LAB BLOOD ORDERABLES Fin al Result Performing Organization Address [facility] de Phone Number [facility] [place] [address] * (ABNORMAL) CRP (acute phase) (07/03/2021 10:50 AM CDT) CRP 12.2(H) <=10.0 mg/L [facility] Blood 07/03/2021 10:5 0 AM CDT 07/03/2021 5:05 PM CDT Evette Guevara SHARED SERVICES REPRESENTATIVE LAB BLOOD ORDERABLES Fin al Result Performing Organization Address [facility] de Phone Number [facility] Department [place] [address] * (ABNORMAL) Erythrocyte sedimentation rate (07/03/2021 10:50 AM CDT) Pathologist [facility] Erythrocyte sedimentation rate 53(H) 1 - 15 mm/hr [facility] Blood 07/03/2021 10:5 0 AM CDT 07/03/2021 5:05 PM CDT Evette Guevara SHARED SERVICES REPRESENTATIVE LAB BLOOD ORDERABLES Fin al Result Performing Organization Address [facility] de Phone Number [facility] [place] [address] documented in this encounter Visit Diagnoses Diagnosis Infected fluid collection without fistula- Primary Unspecified infectious and parasitic diseases Spinal abscess (CMS/HCC) (HCC) Acute osteomyelitis, other specified site documented in this encounter Discontinued Medications Medication Sig Discontinue Reason Start Date End Da te cefepime (MAXIPIME) 1 gram injection Infuse 10 mL (2 g total) into a venous catheter every 12 (twelve) hours Therapy completed 05/27/2021 07/03/2021 DAPTOmycin (CUBICIN) 50 mg/mL injectionIndications:Ab dominal/Pelvic Infection Infuse 11 mL (550 mg total) into a venous catheter daily Therapy completed 05/28/2021 07/03/2021 documented as of this encounter Additional Health Concerns Infection Onset Date Last Indicated Resolved Time 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
--- OUTSIDE RECORDS SUMMARY | 2024-11-11 02:11 | XMS_ITS | Encounter Summary ---
Author Organization [facility] Address [address] [place] [address] Care Team Providers Care Cable Maker Name Role Phone Saw Louie MD Primary Care Provider [phone] Encounter Details Date Type Department Care Team (Late st Contact Info) Description 06/16/2021 Orders Only [facility] Cardiology [address] [place] [phone] Michael Aaron MD [address] [facility] [address] [place] [address] Social History Tobacco Use Types Packs/Day Years Used Date Smoking Tobacco: Former AUDIT-C Answer Date Recorded Q1: How often do you have a drink containing alc ohol? Never 03/28/2021 Average Number of Drinks Not on file 021 Frequency of Binge Drinking Not on file 03/09 Sex and Gender Information Value Date Recorded Sex Assigned at Not on file Legal Sex Male 5:38 AM DECK BUILDER Gender Identity Male 05/21/2022 3:19 PM CDT Sexual Orientation Straight 05/21/2022 3: 19 PM CDT documented as of this encounter Plan of Treatment Not on file documented as of this encounter Procedures Procedure Name Priority Date/Time Associated Diagnosis Comments CARDIOLOGY DOCUMENT SCAN Routine 06/16/2021 documented in this encounter Results * SCAN - CARDIOLOGY (06/16/2021) Anatomical Region Laterality Modality Other Michael Aaron MD CV CARDIAC SERVICES PROC EDURES Final Result documented in this encounter Visit [...] watcher auto flagging 07/01/2013 07/01/201310/03 4:34 PM DECK BUILDER VRE 04/09/2021 04/09/2021 01/06/2022 4:00 AM DECK BUILDER documented as of this encounter Care Teams Cable Maker Relationship Specialty Start Date End Date Saw Louie MD [address] [place] [address] PCP - General 03/31/21 07/13/22 documented as of this encounter
--- OUTSIDE RECORDS SUMMARY | 2024-11-11 02:11 | XMS_ITS | Encounter Summary ---
Author Organization [facility] Address [address] [place] [address] Phone Care Team Providers Care Curing Room Supervisor Name Role Phone Saw Louie MD Primary Care Provider [phone] Reason for Visit * Reason Onset Date Comments Imaging 06/09/2021 Encounter Details Date Type Department Care Team (Late st Contact Info) Description 06/09/2021 Telephone [facility] Infectious Diseases [address] [place] [address] [address] [place] [address] Rosa Milan NP [address] [place] [address] Imaging Social History Tobacco Use Types Packs/Day Years Used Date Smoking Tobacco: Former AUDIT-C Answer Date Recorded Q1: How often do you have a drink containing alc ohol? Never 03/28/2021 Average Number of Drinks Not on file 021 Frequency of Binge Drinking Not on file 03/09 Sex and Gender Information Value Date Recorded Sex Assigned at Not on file Legal Sex Male 5:38 AM DEVELOPMENT REP Gender Identity Male 05/21/2022 3:19 PM CDT Sexual Orientation Straight 05/21/2022 3: 19 PM CDT documented as of this encounter Miscellaneous Notes * Telephone Encounter - Rosa Milan NP - 06/12/2021 1:48 PM CDT Previous ortho attending following patient last admission no longer credentialed at [facility]. Reached out to inpatient ortho/spine consulting service who reviewed imaging and patient's chart. Patient continues to not be an operative candidate but reasonable to contact IR for drainage. Communicated ortho recs to clinic ID team as patient was being seen in clinic today. * Telephone Encounter - Rosa Milan NP - 06/09/2021 3:30 PM CDT Emailed ortho attending who saw patient during most recent admission and Dr. Aldrich regarding recent MRI. Will continue IV antibiotics. documented in this encounter Plan of Treatment [...] watcher auto flagging 07/01/2013 07/01/201310/03 4:34 PM DEVELOPMENT REP VRE 04/09/2021 04/09/2021 01/06/2022 4:00 AM DEVELOPMENT REP documented as of this encounter Care Teams Curing Room Supervisor Relationship Specialty Start Date End Date Saw Louie MD [address] [place] [address] PCP - General 03/31/21 07/13/22 documented as of this encounter
--- OUTSIDE RECORDS SUMMARY | 2024-11-11 02:11 | XMS_ITS | Encounter Summary ---
Author Organization [facility] Address [address] [place] [address] Care Team Providers Care Wardrobe Manager Name Role Phone Saw Louie MD Primary Care Provider Megan Arguelles MD Primary Care Provider Silverio Germain MD Primary Care Provider [phone] Rick Carpio MD Primary Care Provider Encounter Details Date Type Department Care Team (Late st Contact Info) Description 05/29/2021 Telephone [facility] Radiology [address] [place] [address] Petr Gresham RN Social History Tobacco Use Types Packs/Day [...] on file Legal Sex Male 5:38 AM SAND CAR WORKER Gender Identity Male 05/21/2022 3:19 PM CDT Sexual Orientation Straight 05/21/2022 3: 19 PM CDT documented as of this encounter Miscellaneous Notes * Telephone Encounter - Petr Gresham RN - 05/29/2021 3:04 PM CDT documented in this encounter Plan of Treatment [...] watcher auto flagging 07/01/2013 07/01/201310/03 4:34 PM SAND CAR WORKER VRE 04/09/2021 04/09/2021 01/06/2022 4:00 AM SAND CAR WORKER COVID: Suspected 08/05/2021 08/05/2021 08/05/2021 10:12 PM CDT 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 Source: [facility] [employer]. 11/17/2023 COVID: Suspected 09/28/2024 09/28/2024 09/28/2024 2:02 AM SAND CAR WORKER C. difficile suspected 10/05/2024 10/05/202410/06 5:07 AM SAND CAR WORKER documented as of this encounter Care Teams Wardrobe Manager Relationship Specialty Start Date End Date Saw Louie MD [address] [place] [address] PCP - General 03/31/21 07/13/22 [place] [address] [facility] [place] [address] PCP - General 07/14/22 05/11/23 Silverio Germain MD [address] [address] PCP - General Emergency Medicine 05/12/23 10/02/24 Rick Carpio MD [address] [place] [address] PCP - General Internal Medicine 10/03/24 documented as of this encounter
--- OUTSIDE RECORDS SUMMARY | 2024-11-11 02:11 | XMS_ITS | Encounter Summary ---
Author Organization [facility] Address [address] [place] [address] Phone Care Team Providers Care Vessel Welder Name Role Phone Saw Louie MD Primary Care Provider [phone] Reason for Visit * Reason Onset Date Comments OPAT 06/02/2021 Encounter Details Date Type Department Care Team (Late st Contact Info) Description 06/02/2021 Telephone [facility] Infectious Diseases [address] [place] [address] [address] [place] [address] Roas Milan NP [address] [place] [address] OPAT Social History Tobacco Use Types Packs/Day [...] on file Legal Sex Male 5:38 AM TROLLEY OPERATOR Gender Identity Male 05/21/2022 3:19 PM CDT Sexual Orientation Straight 05/21/2022 3: 19 PM CDT documented as of this encounter Miscellaneous Notes * Telephone Encounter - Rosa Milan NP - 06/02/2021 2:28 PM CDT Patient was being followed by ID for spinal OM and epidural abscess. He was discharged from the hospital on daptomycin, cefepime, and metronidazole. WBC: 05/27 8.0 Screat: 05/27 0.74 ALT/AST: 05/22 69/50 CK: 05/26 45 Most recent lab results reviewed with no changes to antibiotics. Will continue to monitor OPAT labsuntil patient follows up with ID. documented in this encounter Plan of Treatment [...] watcher auto flagging 07/01/2013 07/01/201310/03 4:34 PM TROLLEY OPERATOR VRE 04/09/2021 04/09/2021 01/06/2022 4:00 AM TROLLEY OPERATOR documented as of this encounter Care Teams Vessel Welder Relationship Specialty Start Date End Date Saw Louie MD [address] [place] [address] PCP - General 03/31/21 07/13/22 documented as of this encounter
--- OUTSIDE RECORDS SUMMARY | 2024-11-11 02:11 | XMS_ITS | Encounter Summary ---
Author Organization [facility] Address [address] [place] [address] Care Team Providers Care Compliance Nurse Name Role Phone Saw Louie MD Primary Care Provider [phone] Encounter Details Date Type Department Care Team (Late st Contact Info) Description 06/16/2021 Orders Only [facility] Cardiology [address] [place] [id number] Michael Aaron MD [address] [facility] [address] [place] [address] Social History Tobacco Use Types [...] on file Legal Sex Male 5:38 AM PRESS HAND Gender Identity Male 05/21/2022 3:19 PM CDT [...] watcher auto flagging 07/01/2013 07/01/201310/03 4:34 PM PRESS HAND VRE 04/09/2021 04/09/2021 01/06/2022 4:00 AM PRESS HAND documented as of this encounter Care Teams Compliance Nurse Relationship Specialty Start Date End Date Saw Louie MD [address] [place] [address] PCP - General 03/31/21 07/13/22 documented as of this encounter
--- OUTSIDE RECORDS SUMMARY | 2024-11-11 02:11 | XMS_ITS | Encounter Summary ---
Author Organization [facility] Address [address] [place] [address] Care Team Providers Care Factory Clerk Name Role Phone Saw Louie MD Primary Care Provider Reason for Visit * Reason Onset Date Comments OPAT 05/02/2021 Encounter Details Date Type Department Care Team (Late st Contact Info) Description 05/02/2021 Telephone Infectious Diseases Maryanne Garcia NP [address] [place], [place] [id number] OPAT Social History Tobacco Use Types Packs/Day [...] on file Legal Sex Male 5:38 AM IMMIGRATION CONSULTANT Gender Identity Male 05/21/2022 3:19 PM CDT Sexual Orientation Straight 05/21/2022 3: 19 PM CDT documented as of this encounter Miscellaneous Notes * Telephone Encounter - Maryanne Garcia NP - 05/02/2021 1:57 PM CDT OPAT MONITORING NOTE Patient is being treated with Ceftriaxone 2g IV q day due to 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 Discharged from [facility] on 04/11 and currently on week 5 [...] 30/55 WBC 04/10 11 615 9 Assessment/Plan: -Patient is currently admitted to [facility] in [place], will check back in next week -Continue with current antibiotics -Next labs due: [...] watcher auto flagging 07/01/2013 07/01/201310/03 4:34 PM IMMIGRATION CONSULTANT VRE 04/09/2021 04/09/2021 01/06/2022 4:00 AM IMMIGRATION CONSULTANT documented as of this encounter Care Teams Factory Clerk Relationship Specialty Start Date End Date Saw Louie MD [address] [place] [address] PCP - General 03/31/21 07/13/22 documented as of this encounter
--- OUTSIDE RECORDS SUMMARY | 2024-11-11 02:12 | XMS_ITS | Encounter Summary ---
Author Organization [facility] Address [address] [place] [address] Phone Care Team Providers Care Bulldozer Engineer Name Role Phone Saw Louie MD Primary Care Provider [phone] Encounter Details Date Type Department Care Team (Late st Contact Info) Description 04/10/2021 Telephone [facility] ([facility]) - [facility] Urology [address] [place] [address] [place] [phone] Cyndy Gerard NP [address] [place] [address] Social History Tobacco Use Types Packs/Day Years Used Date Smoking Tobacco: Former AUDIT-C Answer Date Recorded Q1: How often do you have a drink containing alc ohol? 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 Bain in the next 10 days to discuss stone procedure. Patient prefers [place] location. 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
--- OUTSIDE RECORDS SUMMARY | 2024-11-11 02:12 | XMS_ITS | Encounter Summary ---
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 COMPARISON: ??None FINDINGS: ??Limited study secondary to body habitus and poor acoustic window. LIMITED RENAL SONOGRAM: The echogenicity of both kidneys is normal. The kidneys are normal in size. ??The right kidney measures 12.3 cm in length, and the left, 12.5 cm in length. There is no hydronephrosis in either kidney. There are no renal calculi visualized. RENAL ARTERY DOPPLER: ??Color Doppler and spectral analysis were used to evaluate the renal vasculature. No focal flow abnormalities were seen in the renal arteries on color Doppler. ??The velocities at the origins the right and left renal arteries cannot be visualized secondary to body habitus and poor acoustic window. ??The peak systolic velocity at the aorta is 94.4 cm/sec. ??The peak systolic velocity at the right renal artery hilum is 57.8 cm/sec, with a normal waveform. ??The peak systolic velocity at the left renal artery hilum is 92.2 cm/sec, with a normal waveform. ??The visualized portions of the right and left renal veins are patent. Procedure Note Ladi Armenta MD - 01/14/2019 EXAMINATION: 1. LIMITED RENAL SONOGRAM 2. RENAL DOPPLER (MARILIN) HISTORY: 33-year-old male undergoing evaluation for hypertension. COMPARISON: None FINDINGS: Limited study secondary to body habitus and poor acoustic window. LIMITED RENAL SONOGRAM: The echogenicity of both kidneys is normal. The kidneys are normal in size. The right kidney measures 12.3 cm in length, and the left, 12.5 cm in length. There is no hydronephrosis in either kidney. There are no renal calculi visualized. RENAL ARTERY DOPPLER: Color Doppler and spectral analysis were used to evaluate the renal vasculature. No focal flow abnormalities were seen in the renal arteries on color Doppler. The velocities at the origins the right and left renal arteries cannot be visualized secondary to body habitus and poor acoustic window. The peak systolic velocity at the aorta is 94.4 cm/sec. The peak systolic velocity at the right renal artery hilum is 57.8 cm/sec, with a normal waveform. The peak systolic velocity at the left renal artery hilum is 92.2 cm/sec, with a normal waveform. The visualized portions of the right and left renal veins are patent. IMPRESSION: Renal artery origins could not be visualized secondary to body habitus and poor acoustic window, however, the velocity and waveforms of right and left renal arteries at the sage are normal. There are no secondary signs of renal artery stenosis. Dictated by: Lashawn Mendoza M.D. Electronically signed by: Ladi Armenta M.D. Fara Pisano MD [facility] PRO CEDURES Final Result * (ABNORMAL) Basic metabolic panel (01/12/2019 10:44 PM 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) Sodium 139 135 - 145 mmol/L [facility] Potassium, pl 4.8 3.3 - 4.9 mmol/L [facility] Comment:Hemolyzed; (+++); po tassium value may be falsely elevated by as much as 0.6 - 1.0 mmol/L. Suggest redraw and reanalysis. Chloride 108 97 - 110 mmol/L [facility] CO2 15(L) 22 - 32 mmol/L [facility] Anion gap 16(H) 2 - 15 mmol/L [facility] BUN 7(L) 8 - 25 mg/dL [facility] Creatinine 0.59(L) 0.80 - 1.30 mg/dL [facility] Glucose 98 70 - 199 mg/dL [facility] Comment: Interpretive Data Fasting glucose >/= [...] interpretive data was last revised 2017. Calcium 9.1 8.5 - 10.3 mg/dL [facility] Blood specimen (specimen) 01/12/2019 10:44 PM 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 01/12/2019 11:49 PM 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 Narrative [facility] - 01/13/2019 1:56 AM 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 Fara Pisano MD LAB BLOOD ORDERABLES Final Result Performing Organization Address [facility] de Phone Number [facility] Department [place] [address] * Urine culture Urine, in and out catheter (01/12/2019 12:53 PM 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) Pathologist [facility] Report Amended Report - Complete: Less than 10,000 colonies/mL (clinically insignificant growth based on current clinical standards) [facility] Organism (CLINICALLY INSIGNIFICANT GROWTH [facility] Urine, in and out catheter 01/12/2019 12:53 PM 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 01/12/2019 1:37 PM 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 Narrative [facility] - 01/13/2019 2:46 PM 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 Indications for Culture:->Urology patient Testing performed by [facility] ([phone]) Fara Pisano MD LAB MICROBIOLOGY - GENERAL ORDERABLES Edited Result - Final Performing Organization Address [facility] Co de Phone Number [facility] Department [place] [address] * (ABNORMAL) Basic metabolic panel (01/12/2019 5:21 AM 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) Pathologist [facility] Sodium 138 135 - 145 mmol/L [facility] Potassium, pl 3.6 3.3 - 4.9 mmol/L [facility] Chloride 103 97 - 110 mmol/L [facility] CO2 28 22 - 32 mmol/L [facility] Anion gap 7 2 - 15 mmol/L [facility] BUN 9 8 - 25 mg/dL [facility] Creatinine 0.77(L) 0.80 - 1.30 mg/dL [facility] Glucose 93 70 - 199 mg/dL [facility] Comment: Interpretive Data Fasting glucose >/= [...] interpretive data was last revised 2017. Calcium 8.4(L) 8.5 - 10.3 mg/dL [facility] Blood specimen (specimen) 01/12/2019 5:21 AM 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 01/12/2019 5:58 AM 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 Narrative [facility] - 01/12/2019 6:24 AM 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 Please draw at time indicated us Fara Pisano MD LAB BLOOD ORDERABLES Final Result Performing Organization Address City/State/[facility] Co de Phone Number [facility] Department [place] [address] * (ABNORMAL) Lipid panel (01/12/2019 5:21 AM 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) Pathologist [facility] Cholesterol 110 30 - 199 mg/dL [facility] Comment: Interpretive Data Ages < or = 19 years ??Acceptable: ? <170 mg/dL ??Borderline high: ??170-199 mg/dL ??High: ? >or= 200 mg/dL Ages > or = 20 years ??Desirable: ?<200 mg/dL ??Borderline high: ??200-239 mg/dL ??High: ? >or= 240 mg/dL Literature References: 1. Expert Panel on Integrated Guidelines for Cardiovascular Health and Risk Reduction in Children and Adolescents. Pediatrics 2011;128:S213 2. NCEP Expert Panel. Circulation 2004;110:227 Current Interpretive Data was last revised on 2018. Triglycerides 90 <=149 mg/dL [facility] Comment: Interpretive Data Ages < or = 9 years ??Acceptable: ? <75 mg/dL ??Borderline high: ??75-99 mg/dL ??High: ? >or= 100 mg/dL Ages 10 to 20 years ??Acceptable: ? <90 mg/dL ??Borderline high: ??90-129 mg/dL ??High: ? >or= 130 mg/dL Ages > or = 20 years ??Desirable: ?<150 mg/dL ??Borderline high: ??150-199 mg/dL ??High: ? 200-499 mg/dL ?Very high: ?? >or= 499 mg/dL Literature References: 1. Expert Panel on Integrated Guidelines for Cardiovascular Health and Risk Reduction in Children and Adolescents. Pediatrics 2011;128:S213 2. NCEP Expert Panel. Circulation 2004;110:227 Current Interpretive Data was last revised on 2018. HDL 32(L) >=40 mg/dL [facility] Comment: Interpretive Data Ages < or = 19 years ??Acceptable: ? >45 mg/dL ??Borderline low: ?? 40-45 mg/dL ??Low: ? <40 mg/dL Ages > or = 20 years ??Desirable: ?>or= 60 mg/dL ??Low: ? <40 mg/dL Literature References: 1. Expert Panel on Integrated Guidelines for Cardiovascular Health and Risk Reduction in Children and Adolescents. Pediatrics 2011;128:S213 2. NCEP Expert Panel. Circulation 2004;110:227 Current Interpretive Data was last revised on 2018. LDL, calculated 60 <=129 mg/dL [facility] Comment: Interpretive Data Ages < or = 19 years ??Acceptable: ? <110 mg/dL ??Borderline high: ??110-129 mg/dL ??High: ?>or= 130 mg/dL Ages > or = 20 years ??Optimal: ? <100 mg/dL ??Near optimal: ?100-129 mg/dL ??Borderline high: ?? 130-159 mg/dL ??High: ?>160 mg/dL Literature References: 1. Expert Panel on Integrated Guidelines for Cardiovascular Health and Risk Reduction in Children and Adolescents. Pediatrics 2011;128:S213 2. NCEP Expert Panel. Circulation 2004;110:227 Current Interpretive Data was last revised on 2018. Non-HDL Cholesterol 78 mg/dL [facility] Comment: Interpretive Data Ages < or = 19 years ??Acceptable: ?<120 mg/dL ??Borderline high: ??120-144 mg/dL ??High: ?>145 mg/dL Ages > or = 20 years ??When triglycerides are >200 mg/dL, Non-HDL cholesterol is a secondary target of ? therapy with treatment goals that are 30 mg/dL greater than the LDL cholesterol target. ? Literature References: 1. Expert Panel on Integrated Guidelines for Cardiovascular Health and Risk Reduction in Children and Adolescents. Pediatrics 2011;128:S213 2. NCEP Expert Panel. Circulation 2004;110:227 Current Interpretive Data was last revised on 2018. Chol/HDL ratio 3 [facility] Blood specimen (specimen) 01/12/2019 5:21 AM 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 01/12/2019 5:58 AM 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 Narrative [facility] - 01/12/2019 6:24 AM 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 Please draw at time indicated us Fara Pisano MD LAB BLOOD ORDERABLES Final Result [facility] Department [place] [address] * POCT glucose (01/11/2019 7:57 AM 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) Glucose, POC 123 70 - 199 mg/dL [facility] Blood specimen (specimen) 01/11/2019 7:57 AM 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 01/11/2019 7:57 AM 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 Narrative [facility] - 01/11/2019 7:57 AM 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 us Fara Pisano MD LAB POCT O RDERABLES - DEVICE Final Result Performing Organization Address City/[facility]/ZIP Co de Phone Number [facility] [place] [address] * (ABNORMAL) POCT glucose (01/11/2019 12:19 AM 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) Pathologist [facility] Glucose, POC 399(H) 70 - 199 mg/dL [facility] Blood specimen (specimen) 01/11/2019 12:19 AM 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 01/11/2019 12:19 AM 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 Narrative [facility] - 01/11/2019 12:23 AM 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 us Noble Pugh II, MD LAB POCT ORDERABLES - DEVICE F inal Result Performing Organization Address [facility] Co de Phone Number [facility] [place] [address] * (ABNORMAL) Urinalysis, microscopic only (01/10/2019 5:12 PM 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) [facility] WBC, ur >50(A) 0 - 5 /HPF [facility] RBC, ur >50(A) 0 - 2 /HPF [facility] Epithelial cells, squamous, ur 1-5 0 - 5 /HPF [facility] Mucous, ur Present(A) [facility] Urine, bladder 01/10/2019 5: 12 PM 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 01/10/2019 5:27 PM 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 Narrative [facility] - 01/10/2019 5:46 PM 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 us Kary Leija MD LAB URINE ORDERABLES Fi nal Result Performing Organization Address [facility]/ZIP Co de Phone Number [facility] [place] [address] * (ABNORMAL) Urine culture Urine, bladder (01/10/2019 5:12 PM 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) Report Final Report: Growth indicates contamination with mixed bacterial meir. Please submit a new specimen with special attention given to the collection process and to prompt transport to the laboratory. (.) [facility] Organism GROWTH INDICATES CONTAMINATION WITH MIXED MEIR. [facility] Urine, bladder 01/10/2019 5: 12 PM 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 01/10/2019 6:28 PM 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 Narrative [facility] - 01/11/2019 10:16 PM 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 Indications for Culture:->Other (specify) Other Indication:->Foul-smelling urine, neurogenic bladder [facility] ED2-32 Testing performed by [facility] ([phone]) Kary Leija MD LAB MICROBIOLOGY - [facility] ORDERABLES Final Result [facility] Department [place] [address] * (ABNORMAL) Urinalysis reflex to microscopic and culture Urine, bladder (01/10/2019 5:12 PM 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) Color, ur Yellow Yellow [facility] Clarity, ur Cloudy(A) Clear [facility] Specific gravity, ur 1.008(L) 1.010 - 1.025 [facility] pH, urine 8.0 [facility] Protein, ur ql 1+(A) Negative [facility] Glucose, ur ql Negative Negative [facility] Ketones, ur Negative Negative [facility] Bilirubin, ur Negative Negative [facility] Blood, ur 3+(A) Negative [facility] Urobilinogen, ur <2.0 <2.0 mg/dL [facility] Nitrite, ur Negative Negative [facility] Leukocyte esterase, ur 3+(A) Negative [facility] Urine, bladder 01/10/2019 5: 12 PM 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 01/10/2019 5:27 PM 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 Narrative [facility] - 01/10/2019 5:36 PM 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 THE COLLECTION LOCATION IS [facility] Urine pH is affected by diet, medications, systemic acid-base disturbances, and renal tubular function. ??pH may affect urinary stone formation. ??For example, urine pH below 6.0 may help reduce the tendency for calcium phosphate stones and pH greater than 6.0 may reduce the tendency for uric acid stone formation. Source: [facility]. Last revised 11-18-2017 Kary Leija MD LAB MICROBIOLOGY - GENE RAL ORDERABLES Final Result Performing Organization Address [facility] Co de Phone Number [facility] Department [place] [address] * Hemoglobin A1c (01/10/2019 4:55 PM 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) Hgb A1C 5.1 4.0 - 5.6 % [facility] Estimated Average Glucose 100 mg/dL [facility] Comment: The ADA recommends reporting an estimated Average Glucose (eAG) with all Hemoglobin A1c results using the equation derived from a study of 507 normal and diabetic adults. ??Minority populations were underrepresented and children were not included. ?? (Diabetes Care 31:0578-1557, 2008). ??The eAG is not equivalent to a fasting glucose. Blood specimen (specimen) 01/10/2019 4:55 PM 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 01/10/2019 5:34 PM 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 Narrative [facility] - 01/11/2019 5:19 PM 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 us Fara Pisano MD LAB BLOOD ORDERABLES Final Result Performing Organization Address [facility] Co de Phone Number [facility] Department [place] [address] * TSH (01/10/2019 4:55 PM 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) Thyroid Stimulating Hormone 0.95 0.30 - 4.20 mcIUnit/mL [facility] Blood specimen (specimen) 01/10/2019 4:55 PM 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 01/10/2019 5:30 PM 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 Narrative [facility] - 01/11/2019 5:18 PM 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 Fara Pisano MD LAB BLOOD ORDERABLES Final Result [facility] Department [place] [address] * (ABNORMAL) Differential, auto (01/10/2019 4:55 PM 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) Neutrophil abs 6.8(H) 1.7 - 6.5 K/cumm [facility] Imm gran abs 0.0 0.0 - 0.1 K/cumm [facility] Lymphocyte abs 1.6 0.8 - 3.3 K/cumm [facility] Monocyte abs 0.6 0.2 - 0.8 K/cumm [facility] Eosinophil abs 0.1 0.0 - 0.5 K/cumm [facility] Basophil abs 0.0 0.0 - 0.1 K/cumm [facility] Neutrophil pct 75.2 % [facility] Comment: Interpretive Data Percent cell count reference ranges are not reported, since discordance with absolute values may lead to misinterpretation of CBC data. Current Interpretive Data was last revised on 2018. Imm gran pct 0.2 % [facility] Comment: Interpretive Data Percent cell count reference ranges are not reported, since discordance with absolute values may lead to misinterpretation of CBC data. Current Interpretive Data was last revised on 2018. Lymphocyte pct 17.2 % [facility] Comment: Interpretive Data Percent cell count reference ranges are not reported, since discordance with absolute values may lead to misinterpretation of CBC data. Current Interpretive Data was last revised on 2018. Monocyte pct 6.3 % [facility] Comment: Interpretive Data Percent cell count reference ranges are not reported, since discordance with absolute values may lead to misinterpretation of CBC data. Current Interpretive Data was last revised on 2018. Eosinophil pct 0.9 % [facility] Comment: Interpretive Data Percent cell count reference ranges are not reported, since discordance with absolute values may lead to misinterpretation of CBC data. Current Interpretive Data was last revised on 2018. Basophil pct 0.2 % [facility] Comment: Interpretive Data Percent cell count reference ranges are not reported, since discordance with absolute values may lead to misinterpretation of CBC data. Current Interpretive Data was last revised on 2018. Blood specimen (specimen) 01/10/2019 4:55 PM 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 01/10/2019 5:30 PM 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 Narrative [facility] - 01/10/2019 5:38 PM 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 Kary Leija MD LAB BLOOD ORDERABLES Fi nal Result [facility] Department [place] [address] * (ABNORMAL) CBC with auto differential (01/10/2019 4:55 PM 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) WBC 9.0 3.8 - 9.9 K/cumm [facility] Hgb 11.2(L) 13.0 - 17.5 g/dL [facility] Hct 36.3(L) 38.9 - 50.3 % [facility] Plt 238 150 - 400 K/cumm [facility] MPV 12.8(H) 9.1 - 12.3 fL [facility] RBC 4.67 4.30 - 5.80 M/cumm [facility] MCV 77.7(L) 81.3 - 96.4 fL [facility] MCH 24.0(L) 27.1 - 33.3 pg [facility] MCHC 30.9(L) 32.3 - 35.7 g/dL [facility] RDW CV 15.9(H) 11.1 - 14.9 % [facility] RDW SD 45.1 35.7 - 48.1 fL [facility] NRBC abs 0.00 0.00 - 0.01 K/cumm [facility] Blood specimen (specimen) 01/10/2019 4:55 PM 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 01/10/2019 5:30 PM 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 Narrative [facility] - 01/10/2019 5:38 PM 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 THE COLLECTION LOCATION IS [place] [address] Kary Leija MD LAB BLOOD ORDERABLES Fi nal Result Performing Organization Address City/[facility] Co de Phone Number [facility] [place] [address] * Lipase (01/10/2019 4:55 PM 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) Pathologist [facility] Lipase 44 10 - 99 Units/L [facility] Blood specimen (specimen) 01/10/2019 4:55 PM 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 01/10/2019 5:30 PM 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 Narrative [facility] - 01/10/2019 6:01 PM 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 THE COLLECTION LOCATION IS [place] [address] Kary Leija MD LAB BLOOD ORDERABLES Fi nal Result Performing Organization Address [facility] de Phone Number [facility] [place] [address] * (ABNORMAL) Comprehensive metabolic panel (01/10/2019 4:55 PM 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) Pathologist [facility] Sodium 141 135 - 145 mmol/L [facility] Potassium, pl 3.6 3.3 - 4.9 mmol/L [facility] Chloride 105 97 - 110 mmol/L [facility] CO2 28 22 - 32 mmol/L [facility] Anion gap 8 2 - 15 mmol/L [facility] BUN 7(L) 8 - 25 mg/dL [facility] Creatinine 0.76(L) 0.80 - 1.30 mg/dL [facility] Glucose 90 70 - 199 mg/dL [facility] Comment: Interpretive Data Fasting glucose >/= [...] interpretive data was last revised 2017. Calcium 9.1 8.5 - 10.3 mg/dL [facility] Bilirubin, total 0.5 0.1 - 1.2 mg/dL [facility] Protein, pl 8.0 6.5 - 8.5 g/dL [facility] Albumin 4.0 3.5 - 5.0 g/dL [facility] Alk phos 123 40 - 130 Units/L [facility] ALT 25 7 - 55 Units/L [facility] AST 19 10 - 50 Units/L [facility] Blood specimen (specimen) 01/10/2019 4:55 PM 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 01/10/2019 5:30 PM 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 Narrative [facility] - 01/10/2019 6:01 PM 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 [facility] COLLECTION LOCATION [facility] ED2-32 Kary Leija MD LAB BLOOD ORDERABLES nal Result [facility] Department [place] [address] documented in this encounter Visit Diagnoses Diagnosis Complicated UTI (urinary tract infection)- Primary Urinary tract infection associated with cystostomy catheter, initial encounter (HCC) Paraplegia (HCC) Paraplegia Paraplegia (HCC) Paraplegia Essential hypertension Unspecified essential hypertension Continuous leakage of urine Continuous leakage Pressure injury of skin of buttock Bladder stones Other calculus in bladder documented in this encounter Administered Medications Inactive Administered Medications - up to 3 most recent administrations Medication Order MAR Action Action Date Dose Rate Site acetaminophen (TYLENOL) tablet 1,000 mg 1,000 mg, oral, 4 times daily PRN, 1st line for pain, headaches, Starting on Ramandeep 01/12/19 at 1601, No more than 3 grams total of acetaminophen per day Given 01/21/2019 8:36 AM CDT 1,000 mg Given 01/20/2019 2:05 AM CDT 1,000 mg Given 01/19/2019 1:57 PM CDT 1,000 mg amLODIPine (NORVASC) tablet 10 mg 10 mg, oral, Daily, First dose (after last modification) on Wed01/14/19 at 0915 Given 01/24/2019 8:54 AM CDT 10 mg Given 01/23/2019 8:28 AM CDT 10 mg Given 01/22/2019 8:24 AM CDT 10 mg amLODIPine (NORVASC) tablet 5 mg 5 mg, oral, Daily, First dose on Wed01/13/19 at 1215 Given 01/13/2019 12:16 PM 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 5 mg carvedilol (COREG) tablet 6.25 mg 6.25 mg, oral, 2 times daily, First dose on Wed01/14/19 at 0000 Given 01/24/2019 8:54 AM CDT 6.25 mg Given 01/23/2019 9:09 PM CDT 6.25 mg Given 01/23/2019 8:28 AM CDT 6.25 mg cefepime (MAXIPIME) 2000 mg/20 mL in sterile water (premix) 2,000 mg 2,000 mg, intravenous, at 40 mL/hr, Administer over 30 Minutes, Every 8 hours scheduled, First dose on Wed01/10/19 at 1811, Indications: Urinary Tract/Genitourinary InfectionIndications:Urinary Tract/Genitourinary Infection New Bag 01/10/2019 6:30 PM 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 2,000 mg 4 0 mL/hr cyanocobalamin (Vitamin B-12) tablet 1,000 mcg 1,000 mcg, oral, Daily, First dose on Wed01/11/19 at 0900, Indications: Prevention of Vitamin B12 DeficiencyIndications:Prevention of Vitamin B12 Deficiency Given 01/24/2019 8:54 AM CDT 1,000 mcg Given 01/23/2019 8:28 AM CDT 1,000 mcg Given 01/22/2019 8:24 AM CDT 1,000 mcg cyclobenzaprine (FLEXERIL) tablet 10 mg 10 mg, oral, Daily, First dose on Wed01/11/19 at 0900, Indications: Muscle SpasmIndications:Muscle Spasm Given 01/24/2019 8:53 AM CDT 10 mg Given 01/23/2019 8:28 AM CDT 10 mg Given 01/22/2019 8:24 AM CDT 10 mg docusate sodium (COLACE) capsule 100 mg 100 mg, oral, 2 times daily, First dose on Wed01/13/19 at 1215, Indications: constipationIndications:constipation Given 01/15/2019 9:46 PM CDT 100 mg Given 01/15/2019 8:02 AM CDT 100 mg Given 01/14/2019 8:29 PM 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 100 mg heparin 10 unit/mL flush 50 Units 50 Units (5 mL), intra-catheter, As needed, line care, Starting on 01/22/19 at 1738 Given 01/22/2019 11:25 PM CDT 50 Units Given 01/22/2019 6:03 PM CDT 50 Units heparin 5,000 unit/mL injection 7,500 Units 7,500 Units, subcutaneous, Every 8 hours scheduled, First dose on Wed01/10/19 at 2300, Indications: Deep Vein Thrombosis PreventionIndications:Deep Vein Thrombosis Prevention Given 01/24/2019 5:39 AM CDT 7,500 Units Left Lower Abdomen Given 01/23/2019 9:10 PM CDT 7,500 Units L eft Lower Abdomen Given 01/23/2019 2:11 PM CDT 7,500 Units R ight Lower Abdomen hydrALAZINE (APRESOLINE) tablet 10 mg 10 mg, oral, Once, On Wed01/11/19 at 2245, For 1 dose, Indications: hypertensionIndications:hypertension Given 01/12/2019 12:55 AM 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 10 mg hydrALAZINE (APRESOLINE) tablet 25 mg 25 mg, oral, Once, On Wed01/12/19 at 1630, For 1 dose, Indications: hypertensionIndications:hypertension Given 01/12/2019 4:40 PM 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 25 mg hydrALAZINE (APRESOLINE) tablet 50 mg 50 mg, oral, Once, On Wed01/12/19 at 2030, For 1 dose, Indications: hypertensionIndications:hypertension Given 01/12/2019 8:27 PM 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 50 mg hydrALAZINE (APRESOLINE) tablet 50 mg 50 mg, oral, Once, On Wed01/13/19 at 0000, For 1 dose, Indications: hypertensionIndications:hypertension Given 01/12/2019 11:22 PM 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 50 mg HYDROcodone-acetaminophen (NORCO) 7.5-325 mg per tablet 1 tablet 1 tablet, oral, Every 8 hours PRN, 1st line for pain, Starting on Wed01/10/19 at 2230, Indications: PainIndications:Pain Given 01/12/2019 1:01 AM 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 1 ta blet Given 01/11/2019 10:30 AM 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 1 tablet Given 01/10/2019 11:13 PM 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 1 tablet HYDROcodone-acetaminophen (NORCO) 7.5-325 mg per tablet 1 tablet 1 tablet, oral, Every 8 hours PRN, 1st line for pain, Starting on Wed01/12/19 at 1601, Indications: Pain, third lineIndications:Pain,third line Given 01/23/2019 2:57 AM CDT 1 tablet Given 01/22/2019 8:24 AM CDT 1 tablet Given 01/20/2019 9:38 PM CDT 1 tablet ibuprofen (ADVIL,MOTRIN) tablet 600 mg 600 mg, oral, 4 times daily PRN, headaches, Starting on Wed01/11/19 at 1514 Given 01/16/2019 10:39 AM CDT 600 mg Given 01/15/2019 10:13 AM CDT 600 mg Given 01/14/2019 1:20 PM 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 600 mg insulin regular (HumuLIN R, NovoLIN R) injection 3 Units 3 Units, intravenous, Once, On Wed01/11/19 at 0545, For 1 dose Given 01/11/2019 5:34 AM 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 3 Units lidocaine PF (XYLOCAINE) 10 mg/mL (1 %) preservative free injection 1-2 mL 1-2 mL, subcutaneous, Once, On Wed01/16/19 at 1030, For 1 dose, Administer to insertion site prior to procedure of local anesthesia. Administer volume needed to infiltrate site., Indications: Administration of Local AnesthesiaIndications:Administra tion of Local Anesthesia Given 01/16/2019 11:00 AM CDT 2 mL Right Upper Arm lisinopril (PRINIVIL,ZESTRIL) tablet 10 mg 10 mg, oral, Daily, First dose (after last modification) on Wed01/12/19 at 0900 Given 01/12/2019 9:27 AM 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 10 mg lisinopril (PRINIVIL,ZESTRIL) tablet 10 mg 10 mg, oral, 2 times daily, First dose (after last modification) on Ramandeep 01/12/19 at 2100 Given 01/13/2019 8:48 PM 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 10 mg Given 01/13/2019 8:15 AM 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 10 mg Given 01/12/2019 8:27 PM 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 10 mg lisinopril (PRINIVIL,ZESTRIL) tablet 10 mg 10 mg, oral, 2 times daily, First dose on Wed01/14/19 at 1545 Given 01/24/2019 8:54 AM CDT 10 mg Given 01/23/2019 9:10 PM CDT 10 mg Given 01/23/2019 8:29 AM CDT 10 mg lisinopril (PRINIVIL,ZESTRIL) tablet 2.5 mg 2.5 mg, oral, Daily, First dose on Wed01/11/19 at 1645 Given 01/11/2019 7:19 PM 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 2.5 mg meropenem (MERREM) 2000 mg/120 mL in sodium chloride 0.9% (premix) 2,000 mg 2,000 mg, intravenous, Administer over 30 Minutes, Every 8 hours scheduled, First dose on Wed01/10/19 at 2300, Indications: Urinary Tract/Genitourinary InfectionIndications:Urinary Tract/Genitourinary Infection New Bag 01/23/2019 5:37 AM CDT 2,000 mg New Bag 01/22/2019 10:00 PM CDT 2,000 mg New Bag 01/22/2019 2:48 PM CDT 2,000 mg ondansetron (ZOFRAN) injection 4 mg 4 mg, intravenous, Administer over 2 Minutes, Every 6 hours PRN, nausea, vomiting, if not tolerating PO, Starting on Wed01/10/19 at 2230, Indications: Nausea and VomitingIndications:Nausea and Vomiting ondansetron ODT (ZOFRAN-ODT) disintegrating tablet 4 mg 4 mg, oral, Every 6 hours PRN, nausea, vomiting, Starting on Wed01/10/19 at 2230, Indications: Nausea and VomitingIndications:Nausea and Vomiting Given 01/11/2019 5:50 AM 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 4 mg oxybutynin (DITROPAN) tablet 5 mg 5 mg, oral, 3 times daily, First dose on Wed01/15/19 at 2100, Indications: Bladder Hyperactivity, Neurogenic BladderIndications:Bladder Hyperactivity,Neurogenic Bladder Given 01/24/2019 8:54 AM CDT 5 mg Given 01/23/2019 9:10 PM CDT 5 mg Given 01/23/2019 5:06 PM CDT 5 mg polyethylene glycol (MIRALAX) packet 17 g 17 g, oral, Daily, First dose on Wed01/13/19 at 1215, Indications: constipationIndications:constipation Given 01/20/2019 9:14 AM CDT 17 g Given 01/15/2019 8:02 AM CDT 17 g Given 01/14/2019 8:42 AM 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 17 g senna-docusate (PERICOLACE) 8.6-50 mg per tablet 1 tablet 1 tablet, oral, 2 times daily PRN, constipation, Starting on Wed01/10/19 at 2229, Indications: constipationIndications:constipation Given 01/15/2019 8:02 AM CDT 1 table t Given 01/14/2019 8:29 PM 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 1 tablet sodium chloride 0.9% bolus 1,000 mL 1,000 mL, intravenous, at 1,000 mL/hr, Administer over 1 Hours, Once, On Wed01/10/19 at 1657, For 1 dose New Bag 01/10/2019 6:32 PM 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 1,000 mL 1000 mL/hr sodium chloride 0.9% flush 0.5-20 mL 0.5-20 mL, intra-catheter, Every 8 hours scheduled, First dose on Wed01/10/19 at 2300, Flush volume based on line type and size. , Indications: FlushingIndications:Flushing Given 01/23/2019 5:41 AM CDT 10 mL Given 01/22/2019 10:00 PM CDT 10 mL Given 01/22/2019 2:48 PM CDT 10 mL sodium chloride 0.9% flush 5-10 mL 5-10 mL, intra-catheter, Every 12 hours scheduled, First dose on Wed01/16/19 at 1030, Flush volume based on line type, size, and protocol. Given 01/22/2019 9:45 PM CDT 10 mL Given 01/22/2019 8:28 AM CDT 10 mL Given 01/21/2019 10:09 PM CDT 10 mL sodium chloride 0.9% flush 5-20 mL 5-20 mL, intra-catheter, As needed, line care, with each use, Starting on 01/16/19 at 0959, Flush volume based on line type, size, and protocol. sodium chloride 0.9% flush 50 mL 50 mL, intra-catheter, As needed, other, suprapubic catheter, Starting on Ramandeep 01/19/19 at 1235 sulfamethoxazole-trimethoprim (BACTRIM DS,SEPTRA DS) 800-160 mg per tablet 160 mg of trimethoprim 160 mg of trimethoprim, oral, 2 times daily, First dose on 01/23/19 at 1400, For 3 doses, Indications: Urinary Tract/Genitourinary InfectionIndications:Urinary Tract/Genitourinary Infection Given 01/24/2019 8:54 AM CDT 160 mg of trimethoprim Given 01/23/2019 9:10 PM CDT 160 mg of trimethoprim Given 01/23/2019 2:11 PM CDT 160 mg of trimethoprim documented in this encounter Discontinued Medications Medication Sig Discontinue Reason Start Date End Da te potassium chloride ER (KLOR-CON,K-DUR) 20 mEq CR tabletIndications:diurect ics Take 40 mEq by mouth 2 (two) times a day. 01/10/2019 hydroCHLOROthiazide (HYDRODIURIL) 25 mg tabletIndications:Edema Take 25 mg by mouth daily. 01/10/2019 documented as of this encounter Historical Medications * This list may reflect changes made after this encounter. HYDROcodone-aceta minophen (NORCO) 7.5-325 mg per tabletIndications :Pain Take 1 tablet by mouth every 8 (eight) hours as needed for pain Indications: Pain. 03/28/2021 added in this encounter Active and Recently Administered Medications Times are shown in CDT. Scheduled Medication Order 01/22/2019 01/23/2019 01/24/2019 amLODIPine (NORVASC) tablet 10 mg 10 mg, oral, Daily, First dose (after last modification) on 01/14/19 at 0915 0824 (Given - Provider: Trisha Vital, PARAM) 0828 (Given - Provider: Cristina Louis, PARAM) 0854 (Given - Provider: Cristina Louis, PARAM) carvedilol (COREG) tablet 6.25 mg 6.25 mg, oral, 2 times daily, First dose on 01/14/19 at 0000 0824 (Given - Provider: Trisha Vital RN)2159 (Given - Provider: Brandie Minaya RN) 0828 (Given - Provider: Cristina Louis RN)210 (Given - Provider: Leyda Leonard, PARAM) 0854 (Given - Provider: Cristina Louis, PARAM) cyanocobalamin (Vitamin B-12) tablet 1,000 mcg 1,000 mcg, oral, Daily, First dose on Wed01/11/19 at 0900, Indications: Prevention of Vitamin B12 Deficiency 0824 (Given - Provider: Trisha Vital RN) 0828 (Given - Provider: Cristina Louis RN) 0854 (Given - Provider: Cristina Louis RN) cyclobenzaprine (FLEXERIL) tablet 10 mg 10 mg, oral, Daily, First dose on Wed01/11/19 at 0900, Indications: Muscle Spasm 0824 (Given - Provider: Trisha Vital RN) 0828 (Given - Provider: Cristina Louis RN) 0853 (Given - Provider: Cristina Louis RN) docusate sodium (COLACE) capsule 100 mg 100 mg, oral, 2 times daily, First dose on Wed01/13/19 at 1215, Indications: constipation 0247 (Not Given - Provider: Brandie Minaya RN - Reason: Patient/family refused)0825 (Not Given - Provider: Trisha Vital RN - Reason: Patient/family refused)2200 (Not Given - Provider: Brandie Minaya RN - Reason: Patient/family refused) 0831 (Not Given - Provider: Cristina Louis RN - Reason: Patient/family refused)2209 (Not Given - Provider: Leyda Leonard RN - Reason: Patient/family refused) 0856 (Not Given - Provider: Cristina Louis RN - Reason: Patient/family refused) heparin 5,000 unit/mL injection 7,500 Units 7,500 Units, subcutaneous, Every 8 hours scheduled, First dose on Wed01/10/19 at 2300, Indications: Deep Vein Thrombosis Prevention 0518 (Given - Provider: Brandie Minaya RN)1426 (Given - Provider: Trisha Vital, PARAM)2159 (Given - Provider: Brandie Minaya RN) 0536 (Given - Provider: Brandie Minaya RN)1411 (Given - Provider: Cristina Louis RN)2110 (Given - Provider: Leyda Leonard, PARAM) 0539 (Given - Provider: Leyda Leonard RN) lisinopril (PRINIVIL,ZESTRIL) tablet 10 mg 10 mg, oral, 2 times daily, First dose on Wed01/14/19 at 1545 0824 (Given - Provider: Trisha Vital RN)2200 (Given - Provider: Brandie Minaya RN) 0829 (Given - Provider: Cristina Louis RN)2110 (Given - Provider: Leyda Leonard RN) 0854 (Given - Provider: Cristina Louis RN) meropenem (MERREM) 2000 mg/120 mL in sodium chloride 0.9% (premix) 2,000 mg (CANCELED) 2,000 mg, intravenous, Administer over 30 Minutes, Every 8 hours scheduled, First dose on Wed01/10/19 at 2300, Indications: Urinary Tract/Genitourinary Infection 0518 (New Bag - Provider: Brandie Minaya RN)1448 (New Bag - Provider: Trisha Vital RN)2200 (New Bag - Provider: Brandie Minaya RN) 0537 (New Bag - Provider: Brandie Minaya RN) oxybutynin (DITROPAN) tablet 5 mg 5 mg, oral, 3 times daily, First dose on Wed01/15/19 at 2100, Indications: Bladder Hyperactivity, Neurogenic Bladder 0824 (Given - Provider: Trisha Vital RN)1604 (Given - Provider: Trisha Vital RN)2159 (Given - Provider: Brandie Minaya RN) 0828 (Given - Provider: Cristina Louis RN)1706 (Given - Provider: Cristina Louis RN)2110 (Given - Provider: Leyda Leonard RN) 0854 (Given - Provider: Cristina Louis, PARAM) polyethylene glycol (MIRALAX) packet 17 g 17 g, oral, Daily, First dose on Wed01/13/19 at 1215, Indications: constipation 0828 (Not Given - Provider: Trisha Vital RN - Reason: Patient/family refused) 0831 (Not Given - Provider: Cristina Louis RN - Reason: Patient/family refused) 0856 (Not Given - Provider: Cristina Louis RN - Reason: Patient/family refused) sodium chloride 0.9% flush 0.5-20 mL 0.5-20 mL, intra-catheter, Every 8 hours scheduled, First dose on Wed01/10/19 at 2300, Flush volume based on line type and size. , Indications: Flushing 0518 (Given - Provider: Brandie Minaya RN)1448 (Given - Provider: Trisha Vital RN)2200 (Given - Provider: Brandie Minaya RN) 0541 (Given - Provider: Brandie Minaya RN)1400 (Due)2210 (Not Given - Provider: Leyda Leonard RN - Reason: Loss of IV access) 0539 (Not Given - Provider: Leyda Leonard RN - Reason: Loss of IV access) sodium chloride 0.9% flush 5-10 mL 5-10 mL, intra-catheter, Every 12 hours scheduled, First dose on Wed01/16/19 at 1030, Flush volume based on line type, size, and protocol. 0828 (Given - Provider: Trisha Vital RN)2145 (Given - Provider: Brandie Minaya RN) 0900 (Due)2209 (Not Given - Provider: Leyda Leonard RN - Reason: Loss of IV access) 0857 (Not Given - Provider: Cristina Louis RN - Reason: Order parameters not met) sulfamethoxazole-trimet hoprim (BACTRIM DS,SEPTRA DS) 800-160 mg per tablet 160 mg of trimethoprim 160 mg of trimethoprim, oral, 2 times daily, First dose on Wed01/23/19 at 1400, For 3 doses, Indications: Urinary Tract/Genitourinary Infection 1411 (Given - Provider: Cristina Louis, RN)2110 (Given - Provider: Leyda Leonard RN) 0854 (Given - Provider: Cristina Louis, PARAM) PRN Medication Order 01/22/2019 01/23/2019 01/24/2019 acetaminophen (TYLENOL) tablet 1,000 mg 1,000 mg, oral, 4 times daily PRN, 1st line for pain, headaches, Starting on Ramandeep 01/12/19 at 1601, No more than 3 grams total of acetaminophen per day [facility] Trisha Vital, PARAM) heparin 10 unit/mL flush 50 Units 50 Units (5 mL), intra-catheter, As needed, line care, Starting on Wed01/22/19 at 1738 1803 (Given - Provider: Trisha Vital, PARAM)2325 (Given - Provider: Brandie Minaya, PARAM) HYDROcodone-acetaminophen (NORCO) 7.5-325 mg per tablet 1 tablet 1 tablet, oral, Every 8 hours PRN, 1st line for pain, Starting on Ramandeep 01/12/19 at 1601, Indications: Pain, third line 0824 (Given - Provider: Trisha Vital RN) 0257 (Given - Provider: Brandie Minaya, PARAM) ibuprofen (ADVIL,MOTRIN) tablet 600 mg 600 mg, oral, 4 times daily PRN, headaches, Starting on Wed01/11/19 at 1514 ondansetron (ZOFRAN) injection 4 mg(Linked Group 1) 4 mg, intravenous, Administer over 2 Minutes, Every 6 hours PRN, nausea, vomiting, if not tolerating PO, Starting on Wed01/10/19 at 2230, Indications: Nausea and Vomiting ondansetron ODT (ZOFRAN-ODT) disintegrating tablet 4 mg(Linked Group 1) 4 mg, oral, Every 6 hours PRN, nausea, vomiting, Starting on Wed01/10/19 at 2230, Indications: Nausea and Vomiting senna-docusate (PERICOLACE) 8.6-50 mg per tablet 1 tablet 1 tablet, oral, 2 times daily PRN, constipation, Starting on Wed01/10/19 at 2229, Indications: constipation sodium chloride 0.9% flush 0.5-20 mL 0.5-20 mL, intra-catheter, As needed, line care, Starting on Wed01/10/19 at 2229, Flush volume based on line type and size. Flush before and after each use. , Indications: Flushing sodium chloride 0.9% flush 5-20 mL 5-20 mL, intra-catheter, As needed, line care, with each use, Starting on Wed01/16/19 at 0959, Flush volume based on line type, size, and protocol. sodium chloride 0.9% flush 50 mL 50 mL, intra-catheter, As needed, other, suprapubic catheter, Starting on Ramandeep 01/19/19 at 1235 Linked Groups Order Group 1: ondansetron ODT (ZOFRAN-ODT) disintegrating tablet 4 mgJump to med 4 mg, oral, Every 6 hours PRN, nausea, vomiting, Starting on Wed01/10/19 at 2230, Indications: Nausea and Vomiting Or ondansetron (ZOFRAN) injection 4 mgJump to med 4 mg, intravenous, Administer over 2 Minutes, Every 6 hours PRN, nausea, vomiting, if not tolerating PO, Starting on Wed01/10/19 at 2230, Indications: Nausea and Vomiting documented in this encounter Orders Medications Ordered That Camron ht Not Have Been Administered Count Last Ordered Date First Ordered Date alteplase (CATHFLO) 1 mg/mL syringe (premix) 1 mg 1 01/21/2019 sodium chloride 0.9% flush 50 mL 01/20/20 19 sodium chloride 0.9% flush 5-20 mL 2018 ondansetron (ZOFRAN) injection 4 mg 1 01/10 sodium chloride 0.9% flush 0.5-20 mL 03/2019 Lab Orders Without Results Count Last Ordered D ate First Ordered Date POCT GLUCOSE DEVICE 1 01/11/2019 General Supply Count Last Ordered Date First Or dered Date SYNERGY AIR ELITE MATTRESS 1 01/11/2019 Diet Count Last Ordered Date First Orde red Date ADULT DISCHARGE DIET 1 01/23/2019 Nursing Count Last Ordered Date First Orde red Date DISCHARGE ACTIVITY 1 01/23/2019 DISCHARGE CALL PROVIDER 7 01/23/2019 DISCHARGE INSTRUCTIONS 2 01/23/2019 FOLLOW UP WITH PROVIDER 1 01/23/2019 WEIGH PATIENT 1 01/10/2019 Consult Count Last Ordered Date First Orde red Date IP CONSULT TO VASCULAR ACCESS TEAM 1 2018 CONSULT TO GENERAL INFECTIOUS DISEASE 1 08/2019 CONSULT TO WOUND CARE 1 01/11/2019 IP CONSULT TO UROLOGY 1 01/10/2019 IV Count Last Ordered Date First Orde red Date SALINE LOCK IV 1 01/10/2019 Admission Count Last Ordered Date First Orde red Date ASSIGN PATIENT STATUS 1 01/10/2019 ADT Patient Update Count Last Ordered Date Firs t Ordered Date ED IP DECISION TO ADMIT 1 01/10/2019 documented in this encounter Additional Health Concerns Infection Onset Date Last Indicated Resolved Time MRSA Comment: 03/31/2021 IP Review - 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 Not a candidate for isolation discontinuation at this time. Ananda Murphy generated from [facility] 02/01/2012 02/01/2012 06/25/2021 5:00 AM C DT MDR gram neg/ESBL Comment:Germ watcher auto flagging 07/01/2013 07/01/201310/03 4:34 PM 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 documented as of this encounter Care Teams Director Health Relationship Specialty Start Date End Date Saw Louie MD [address] [place] [address] PCP - General 09/03/17 01/16/19 Clinic, Primary [facility] Medicine, [address] [place] [address] PCP - General Family Medicine 01/17/19 01/22/19 Saw Louie MD [address] [place] [address] PCP - General 01/24/19 03/30/21 Saw Louie MD [address] [place] [address] PCP - General 01/23/19 01/23/19 documented as of this encounter
--- OUTSIDE RECORDS SUMMARY | 2024-11-11 02:12 | XMS_ITS | Encounter Summary ---
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 Gender Identity Male 05/21/2022 3:19 PM CDT Sexual Orientation Straight 05/21/2022 3: 19 PM CDT documented as of this encounter Medications at Time of Discharge cyclobenzaprine (FLEXERIL) 5 mg tablet Take 1 tablet (5 mg total) by mouth 3 (three) times a day as needed for muscle spasms 30 tablet gabapentin (NEURONTIN) 300 mg capsule Take 300 [...] mouth 2 (two) times a day 1 fentaNYL (DURAGESIC) 25 mcg/hr Place 1 patch on the skin every third day 4 patch 1 05/12/20 21 potassium chloride ER (KLOR-CON) 20 mEq CR tablet Take 2 tablets (40 mEq total) by mouth daily 60 tablet 11 1 04/12/20 22 amLODIPine (NORVASC) 10 mg tablet Take 10 mg by mouth daily 04/11/20 21 calcium carbonate (TUMS) 500 mg calcium (200 mg of elemental calcium) chewable tablet Take 2 tablets (1,000 mg total) by mouth 4 (four) times a day as needed for indigestion 1 08/11/20 21 carvediloL (COREG) 3.125 mg tablet Take 3.125 mg by mouth 2 (two) times a day with meals 08/11/20 21 cefTRIAXone (ROCEPHIN) syringeIndications: Bone/Joint Infection Infuse 20 mL (2,000 mg total) into a venous catheter daily for 27 days Total of 6 weeks from 5.21.21 1 05/06/20 21 celecoxib (CeleBREX) 200 mg capsule Take 200 mg by mouth daily 04/11/20 21 cloNIDine (CATAPRES) 0.1 mg tablet Take 0.1 mg by mouth 2 (two) times a day 04/11/20 21 fentaNYL (DURAGESIC) 25 mcg/hr Place 1 patch on the skin every third day 04/11/20 21 ferrous sulfate 325 mg (65 mg of elemental iron) tabletIndications:I maile Deficiency Anemia Take 65 mg of elemental iron by mouth daily with breakfast 04/11/20 21 ferrous sulfate 325 mg (65 mg of elemental iron) tabletIndications:I maile Deficiency Anemia Take 1 tablet (325 mg total) by mouth 2 (two) times a day with breakfast and lunch 60 tablet 11 05/28/20 21 heparin 10 unit/mL syringe Administer 5 mL (50 Units total) into IV catheter as needed (keep IV catheter patent) 10/09/20 24 hydrALAZINE (APRESOLINE) 10 mg tabletIndications:h ypertension Take 10 mg by mouth 4 (four) times a day 04/11/20 21 HYDROcodone-acetami nophen (NORCO) 10-325 mg per tabletIndications:P ain Take 1 tablet by mouth every 4 (four) hours as needed for pain 04/11/20 21 HYDROcodone-acetami nophen (NORCO) 10-325 mg per tabletIndications:P ain Take 1 tablet by mouth every 4 (four) hours as needed for pain 30 tablet 10/09/20 24 linaCLOtide (LINZESS) 145 mcg capsule 145 mcg daily 10/09/20 24 losartan (COZAAR) 50 mg tablet Take 50 mg by mouth daily 04/11/20 21 ondansetron ODT (ZOFRAN-ODT) 4 mg disintegrating tabletIndications:N ausea and Vomiting Take 1 tablet (4 mg total) by mouth every 6 (six) hours as needed for nausea or vomiting 20 tablet 05/28/[address] (PROTONIX) 40 mg EC tablet Take 40 mg by mouth daily 04/11/20 21 potassium chloride ER (KLOR-CON) 20 mEq CR tablet Take 2 tablets (40 mEq total) by mouth daily 60 tablet 11 04/11/20 21 potassium chloride ER (potassium chloride ER) 20 mEq CR tablet Take 40 mEq by mouth daily 04/11/20 21 potassium chloride ER (potassium chloride ER) 20 mEq CR tablet Take 20 mEq by mouth nightly 04/11/20 21 sodium chloride 0.9% injection Infuse 5 mL into a venous catheter daily 5 mL 05/28/20 21 sucralfate (CARAFATE) 1 gram tablet Take 1 g by mouth 3 (three) times a day before meals 05/28/20 21 documented as of this encounter Discharge Disposition Disposition Code Departure Means Destination Discharge to home or self care documented in this encounter Plan of Treatment Not on file documented as of this encounter Procedures Procedure Name Priority Date/Time Associated Diagnosis Comments CT BODY OUTSIDE CONSULT Routine 03/28/2021 6:36 PM CDT Diagnosis unknown documented in this encounter Results * CT Body Outside Consult (03/28/2021 6:36 PM CDT) Anatomical Region Laterality Modality Body N/A Computed Tomogra phy 03/29/2021 8:43 AM CDT Impressions 03/29/2021 8:43 AM CDT 1. Large destructive process centered at L5-S1 containing gas soft tissue and fluid density. 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 Notably, the process extends through the spinal canal and the posterior elements and there is a small sinus tract in the subcutaneous tissues overlying the sacrum. 2. Changes from neobladder formation with large calculi seen in the neobladder lumen. The findings, conclusions and recommendations within this report do not replace the initial findings, conclusions ??and recommendations made at the facility where the study was performed based upon the imaging and clinical condition at that time. ??Comparison with the prior report and clinical history is necessary. ??The provided images may or may not represent the [place] source data set and thus may contain changes that may lower the accuracy of this second-opinion interpretation. Electronically signed by: Nicholas Malone 03/29/2021 8:43 AM CDT EXAMINATION: RADIOLOGY CONSULTATION ON OUTSIDE IMAGING STUDY STUDY INITIALLY PERFORMED: 03/27/2021 at ??[facility]. TYPE OF STUDY: Multiple CT images of the abdomen and pelvis with intravenous contrast are provided at the time of this interpretation. CONTRAST ROUTE: Contrast was administered via the intravenous route. The protocol was adequate to address the clinical question. The outside final report was not available at the time of this second opinion interpretation. TYPE OF CONSULTATION: Consult on outside imaging study with images submitted through [facility] DATE OF CONSULTATION: 03/29/2021 8:34 AM HISTORY: Paraplegia. Urinary tract infection. Sacral mass reportedly biopsied and shown to be benign. COMPARISON: No prior CTs FINDINGS: Within the lung bases there is subsegmental atelectasis but no pleural effusion or pneumothorax. Mild cardiomegaly. No pericardial effusion. There is no focal liver lesion or biliary duct dilatation. Absent gallbladder. No focal lesion is seen in the adrenal glands or pancreas. Normal splenic size. Both kidneys contain benign-appearing cysts and other subcentimeter lesions that are too small to characterize but are also likely cysts. The abdominal aorta is normal in caliber. An inferior vena cava filter is in place. 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 Centered at L5-S1 is an 11.8 x 10.0 cm collection that has a combination of soft tissue fluid and gas density with marked fragmentation of the underlying bone. This extends into the spinal canal and posterior elements. There is no definite visible communication to the underlying gastrointestinal or urinary tract. A small tract is seen in the subcutaneous tissues overlying the sacrum on image 120. Changes from neobladder formation are present with a stoma at the umbilicus. There are 3 large stones in the neobladder. No hydroureter. Calcifications are noted in and around the bulbar urethra. There is no intestinal obstruction ascites or free intraperitoneal gas. Sequela of prior decubitus ulcers noted along the hips and the left ischial tuberosity. There is extensive heterotopic ossification surrounding the hips. An intramedullary nail is present within the left femur. Procedure Note Cipriano Vergara MD - 03/29/2021 EXAMINATION: RADIOLOGY CONSULTATION ON OUTSIDE IMAGING STUDY STUDY INITIALLY PERFORMED: 03/27/2021 at [facility]. TYPE OF STUDY: Multiple CT images of the abdomen and pelvis with intravenous contrast are provided at the time of this interpretation. CONTRAST ROUTE: Contrast was administered via the intravenous route. The protocol was adequate to address the clinical question. The outside final report was not available at the time of this second opinion interpretation. TYPE OF CONSULTATION: Consult on outside imaging study with images submitted through [facility] DATE OF CONSULTATION: 03/29/2021 8:34 AM HISTORY: Paraplegia. Urinary tract infection. Sacral mass reportedly biopsied and shown to be benign. COMPARISON: No prior CTs FINDINGS: Within the lung bases there is subsegmental atelectasis but no pleural effusion or pneumothorax. Mild cardiomegaly. No pericardial effusion. There is no focal liver lesion or biliary duct dilatation. Absent gallbladder. No focal lesion is seen in the adrenal glands or pancreas. Normal splenic size. Both kidneys contain benign-appearing cysts and other subcentimeter lesions that are too small to characterize but are also likely cysts. The abdominal aorta is normal in caliber. An inferior vena cava filter is in place. 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 Centered at L5-S1 is an 11.8 x 10.0 cm collection that has a combination of soft tissue fluid and gas density with marked fragmentation of the underlying bone. This extends into the spinal canal and posterior elements. There is no definite visible communication to the underlying gastrointestinal or urinary tract. A small tract is seen in the subcutaneous tissues overlying the sacrum on image 120. Changes from neobladder formation are present with a stoma at the umbilicus. There are 3 large stones in the neobladder. No hydroureter. Calcifications are noted in and around the bulbar urethra. There is no intestinal obstruction ascites or free intraperitoneal gas. Sequela of prior decubitus ulcers noted along the hips and the left ischial tuberosity. There is extensive heterotopic ossification surrounding the hips. An intramedullary nail is present within the left femur. IMPRESSION: 1. Large destructive process centered at L5-S1 containing gas soft tissue and fluid density. 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 Notably, the process extends through the spinal canal and the posterior elements and there is a small sinus tract in the subcutaneous tissues overlying the sacrum. 2. Changes from neobladder formation with large calculi seen in the neobladder lumen. The findings, conclusions and recommendations within this report do not replace the initial findings, conclusions and recommendations made at the facility where the study was performed based upon the imaging and clinical condition at that time. Comparison with the prior report and clinical history is necessary. The provided images may or may not represent the [place] source data set and thus may contain changes that may lower the accuracy of this second-opinion interpretation. Electronically signed by: Cipriano Vergara M.D. Darrian Aguilar MD IMG CT PROCEDURES Final Result documented in this encounter [...] watcher auto flagging 07/01/2013 07/01/201310/03 4:34 PM STOCK FEEDER documented as of this encounter Care Teams Taxi Driver Supervisor Relationship Specialty Start Date End Date Saw Louie MD [address] [place] [address] PCP - General 01/24/19 03/30/21 documented as of this encounter
--- OUTSIDE RECORDS SUMMARY | 2024-11-11 02:12 | XMS_ITS | Encounter Summary ---
Author Organization [facility] Healthcare Address [address] [place] [address] Care Team Providers Care Pulverizer Name Role Phone Saw Louie MD Primary Care Provider [phone] Encounter Details Date Type Department Care Team (Late st Contact Info) Description 03/31/2021 Orders Only [facility] Neuro Interventional Radiology [address] [place] [address] Beverley Dill, PARAM Social History Tobacco Use Types Packs/Day Years Used Date Smoking Tobacco: Former AUDIT-C Answer Date Recorded Q1: How often do you have a drink containing alc ohol? 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 Ananda Jeffrey generated from [facility] 02/01/2012 02/01/2012 06/25/2021 5:00 AM CDT MDR gram neg/ESBL Comment:Germ watcher auto flagging 07/01/2013 07/01/201310/03 4:34 PM CENTRIFUGAL CASTING MACHINE OPERATOR documented as of this encounter Care Teams Pulverizer Relationship Specialty Start Date End Date Saw Louie MD [address] [place] [address] PCP - General 03/31/21 07/13/22 documented as of this encounter
--- OUTSIDE RECORDS SUMMARY | 2024-11-11 02:12 | XMS_ITS | Encounter Summary ---
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 Voicemail left for patient to contact the office at [phone]. 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 Snyder for evaluation Thank you, Tootie documented in this encounter Plan of Treatment [...] watcher auto flagging 07/01/2013 07/01/201310/03 4:34 PM AMBULETTE DRIVER documented as of this encounter Care Teams Watch Technician Relationship Specialty Start Date End Date Saw Louie MD [address] [place] [address] PCP - General 01/24/19 03/30/21 documented as of this encounter
--- OUTSIDE RECORDS SUMMARY | 2024-11-11 02:12 | XMS_ITS | Encounter Summary ---
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 of safety precautions Awareness of Errors Good awareness of errors made Insight Fully aware of deficits Problem Solving Able to problem solve independently Compliance/Behavior Easy to engage Activity Tolerance Activity Tolerance Comments Marcello Assessment Problem List Decreased endurance;Decreased balance;Decreased ADL independence;Decreased IADL independence;Decreased functional mobility Barriers to Discharge Current Mobility Status Plan Plan Continue with current plan;If this is the last note, consider this the discharge summary Recommendation/Plan OT Recommendation Long Term Facility OT Frequency 1-2x/wk Treatment/Interventions ADL/IADL retraining;Bed mobility;Compensatory technique education;Endurancetraining;Functional activity;Functional mobility training;Functional transfer training;Positioning Progress Progressing toward goals OT - Next Appointment 04/16/21 Multi-Disciplinary Problems (from Occupational Therapy) Active Problems Problem: Transfers Start Date: 04/02/21 Goal Start Date Expected End Date End Date STG - Transfer from bed to chair 04/02/21 04/16/21 -- Goal Details: With Min A Goal Start Date Expected End Date End Date STG - Patient will perform bed mobility 04/02/21 04/16/21 -- Goal Details: With Min A Problem: Grooming Start Date: 04/02/21 Goal Start Date Expected End Date End Date STG - Patient will complete grooming 04/02/21 04/16/21 -- Goal Details: In sitting supported vs unsupported with supervision For questions, please review the treatment team and contact the occupational therapist currently assigned to this patient. If an occupational therapist is not assigned to this patient, please call [phone]. * Fara Pisano MD - 04/11/2021 11:09 AM CDT Daily Progress Note Division of Hospital Medicine Name: Shawn Casey Jr. Today: April 11, 2021 : 1985 Age: 35 y.o. male Admit: 03/28/2021 Bed: [id number] Subjective Interval History: No new complaints, no acute issue. Improved urine leakage with placement of foleyto suprapubic stoma. Afebrile, On IV Ceftriaxone, WBC improving - 11 Objective Medications: Scheduled: carvediloL, 3.125 mg, oral, BID with meals (bkfst, dinner) cefTRIAXone, 2,000 mg, intravenous, Q24H MARYANN enoxaparin, 40 mg, subcutaneous, Q12H MARYANN fentaNYL, 1 patch, transdermal, Q72H ferrous sulfate, 65 mg of elemental iron, oral, BID with meals (bkfst, lunch) gabapentin, 300 mg, oral, Nightly linaCLOtide, 145 mcg, oral, Daily pantoprazole DR, 40 mg, oral, BID AC (bkfst, dinner) potassium chloride ER, 40 mEq, oral, Daily senna-docusate, 1 tablet, oral, BID sucralfate, 1 g, oral, TID AC Infusions: PRN: ??? acetaminophen ??? calcium carbonate ??? cyclobenzaprine ??? heparin flush (porcine) ??? HYDROcodone-acetaminophen ??? loperamide ??? nitroglycerin ??? ondansetron ODT OR ondansetron ??? polyethylene glycol Vitals: 24hr Min/Max: Temp Min: 36.4 ??C (97.5 ??F) Max: 37.3 ??C (99.1 ??F) Pulse Min: 87 Max: 104 BP Min: 113/62 Max: 134/73 Resp Min: 18 Max: 18 SpO2 Min: 96 % Max: 100 % Most Recent: Vitals: 04/11/21 0935 BP: 116/63 Pulse: 89 Resp: 18 Temp: 36.9 ??C (98.4 ??F) SpO2: 97% Intake/Output Summary (Last 24 hours) at 04/11/2021 1104 Last data filed at 04/10/20212023 Gross per 24 hour Intake 300 ml Output 1100 ml Net -800 ml Physical Exam General: NAD. Obese HEENT: PERRLA, EOMI, MMM Neck: Supple Respi: CTAB, no wheezes/crackles/rhonchi CVS: S1S2, no M/R/G, no edema GI: not distended, normal BS, soft, non tender, suprapubic catheter in place MSK: bilateral BKA Neuro: Nonfocal Skin: Warm and dry Lab/Diagnostic Review: Recent Results (from the past 36 hour(s)) CBC with auto differential Collection Time: 04/10/21 8:21 PM Result Value Ref Range WBC 11.0 (H) 3.8 - 9.9 K/cumm Hgb 8.9 (L) 13.0 - 17.5 g/dL Hct 27.7 (L) 38.9 - 50.3 % Plt 365 150 - 400 K/cumm MPV 10.6 9.1 - 12.3 fL RBC 3.27 (L) 4.30 - 5.80 M/cumm MCV 84.7 81.3 - 96.4 fL MCH 27.2 27.1 - 33.3 pg MCHC 32.1 (L) 32.3 - 35.7 g/dL RDW CV 15.6 (H) 11.1 - 14.9 % RDW SD 48.1 35.7 - 48.1 fL NRBC abs 0.00 0.00 - 0.01 K/cumm Erythrocyte sedimentation rate Collection Time: 04/10/21 8:21 PM Result Value Ref Range Erythrocyte sedimentation rate 98 (H) 1 - 15 mm/hr CRP (acute phase) Collection Time: 04/10/21 8:21 PM Result Value Ref Range CRP 162.1 (H) <=10.0 mg/L Differential, auto Collection Time: 04/10/21 8:21 PM Result Value Ref Range Neutrophil abs 8.4 (H) 1.7 - 6.5 K/cumm Imm gran abs 0.1 0.0 - 0.1 K/cumm Lymphocyte abs 1.6 0.8 - 3.3 K/cumm Monocyte abs 0.7 0.2 - 0.8 K/cumm Eosinophil abs 0.1 0.0 - 0.5 K/cumm Basophil abs 0.0 0.0 - 0.1 K/cumm Neutrophil pct 76.6 % Imm gran pct 1.1 % Lymphocyte pct 14.2 % Monocyte pct 6.7 % Eosinophil pct 1.0 % Basophil pct 0.4 % I have reviewed the laboratory results. Imaging Results: XR Chest 1 View Narrative: EXAMINATION: 1 view chest radiograph Impression: Comparison is made to prior examination from 03/10/2021. No consolidation, effusion, or pneumothorax. Stable heart size. Electronically signed by: Suleman Frost M.D. 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 MRI total spine 03/30 with destruction at the lumbosacral junction with disorganized bone fragments and a fluid collection in the calf between the small residual components of the L5 vertebral body in the remainder of the sacrum. No evidence of discitis/OM in cervical,thoracic, or lumbar spine from L1 through L4. Large disc protrusion at C5-C6 causing moderate canalstenosis. Changes of spinal cord injury in the [...] in the setting of positive fluid culture on04/02. Per note left on 04/07, this is still the case as they feel surgical management is very highlyunlikely to clear his infection and could exacerbate his status. Per IR, drain is also not a good option as fluid collection would not likely drain effectively. - Leukocytosis improved from 17 on 04/09 down to 11 today, no new source of infection with work-up Complicated UTI (urinary tract infection) Assessment & Plan Pt admitted w/ sepsis, now stabilized w/ IVF, abx. UA with 3+ LE, 2+ blood. CRP 177, ESR 64. MRSA swab negative, and covid negative. Ur cx grewg >100k mixed mallory. CT a/p performed at OSH with BL perinephric fat, unchanged stones in urinary bladder and urethra. 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 Per Urology, unclear if stoma arises from a samira-bladder vs regular vs augmented bladder. - Per Urology, rec 14 dominican lynch and tape to abdomen (no balloon). Can resume q2-3hr caths outpatient. - Stone removal is elective per Urology and can be addressed after this hospital stay and after resolution of acute medical issues. Patient had an appointment with an OSH urologist for this which hisfamily will reschedule. - pt may have failed cipro, ctx, zosyn at OSH with persistent fevers (last fever 04/03); switched tovanc/kaykay on 03/28. Switched to CTX 04/07 per ID recs. Continuous leakage of urine Assessment & Plan Urology consulted. 14Fr Lynch catheter placed with improved leakage Discharge planning issues Assessment & Plan Preferred not to go back to previous facility and be closer here, SNF referral placed Hyponatremia Assessment & Plan No symptoms. unclear etiology, ?possible volume overload. Urine osm 388, urine Na 70, ser osm 276 c/w hypotonic hyponatremia. On RA, urinating well. Not grossly volume overloaded. BNP mildly elevated. CXR with mild CM. Stable low 130s. Anemia Assessment & Plan Mixed chronic/inflammatory form infection and iron deficiency, iron profile 32/120/18 - Cont. Ferrous sulfate, Transfuse prn < 7, Hgb stable 8.9 today Pressure injury of skin of buttock Assessment & Plan Per ACCS consult, wounds overall appear healthy [...] Extra Protective Cream BId and prn. Utilize genet spray and genet wipes to remove EPC to prevent further excoriation. - Left buttock pressure injury/Eschar covered: gently cleanse with egnet spray and genet wipes to dissolve Extra Protective Cream, pat dry , Apply a thin layer of Extra Protective cream to cover Eschar, BID and prn soiling. - Pain management as above HTN (hypertension) Assessment & Plan On clonidine, hydralazine, coreg, amlodipine, losartan at home. All BP meds held on admission 2/2 sepsis. BP is now relatively controlled on Norvasc, Coreg only (SBP 110-150s). Will not plan to resume Losartan, Hydralazine, Clonidine at this time. - Continue Coreg and dc Norvasc with soft BPs - Monitor BP and stable Paraplegia (CMS/HCC) Assessment & Plan No sensation/motor function from nipples down - pain control with norco, fentanyl patch - c/w and adjust bowel regimen * Fara Pisano MD - 04/10/2021 10:46 AM CDT Daily Progress Note Division of Hospital Medicine Name: Shawn Casey Jr. Today: April 10, 2021 : 1985 Age: 35 y.o. male Admit: 03/28/2021 Bed: [place] [id number]/[place] [id number] Subjective Interval History: Loose stools - C. Diff negative. Afebrile, WBC 12, On IV Ceftriaxone Objective Medications: Scheduled: carvediloL, 3.125 mg, oral, BID with meals (bkfst, dinner) cefTRIAXone, 2,000 mg, intravenous, Q24H MARYANN enoxaparin, 40 mg, subcutaneous, Q12H MARYANN fentaNYL, 1 patch, transdermal, Q72H ferrous sulfate, 65 mg of elemental iron, oral, BID with meals (bkfst, lunch) gabapentin, 300 mg, oral, Nightly linaCLOtide, 145 mcg, oral, Daily pantoprazole DR, 40 mg, oral, BID AC (bkfst, dinner) potassium chloride ER, 40 mEq, oral, Daily senna-docusate, 1 tablet, oral, BID sodium chloride 0.9%, 1,000 mL, intravenous, Once sucralfate, 1 g, oral, TID AC Infusions: PRN: ??? acetaminophen ??? calcium carbonate ??? cyclobenzaprine ??? heparin flush (porcine) ??? HYDROcodone-acetaminophen ??? loperamide ??? nitroglycerin ??? ondansetron ODT OR ondansetron ??? polyethylene glycol Vitals: 24hr Min/Max: Temp Min: 36.4 ??C (97.5 ??F) Max: 37.2 ??C (99 ??F) Pulse Min: 51 Max: 98 BP Min: 93/59 Max: 116/60 Resp Min: 18 Max: 20 SpO2 Min: 97 % Max: 99 % Most Recent: Vitals: 04/10/21 0841 BP: 116/60 Pulse: 93 Resp: 18 Temp: 36.7 ??C (98.1 ??F) SpO2: 97% Intake/Output Summary (Last 24 hours) at 04/10/2021 1038 Last data filed at 04/10/2021 0630 Gross per 24 hour Intake 900 ml Output 1250 ml Net -350 ml Physical Exam General: NAD. Obese HEENT: PERRLA, EOMI, MMM Neck: Supple Respi: CTAB, no wheezes/crackles/rhonchi CVS: S1S2, no M/R/G, no edema GI: not distended, normal BS, soft, non tender, stoma present on hypogastric area with bag in placecontaining clear urine MSK: bilateral BKA Neuro: Nonfocal Skin: Warm and dry Lab/Diagnostic Review: Recent Results (from the past 36 hour(s)) Erythrocyte sedimentation rate Collection Time: 04/09/21 9:11 AM Result Value Ref Range Erythrocyte sedimentation rate 106 (H) 1 - 15 mm/hr Blood culture Blood Peripheral inserted central cath Collection Time: 04/09/21 9:11 AM Specimen: Peripheral inserted central cath; Blood Result Value Ref Range Report Preliminary Report: No growth to date. Blood culture Blood Hand, right Collection Time: 04/09/21 9:11 AM Specimen: Hand, right; Blood Result Value Ref Range Report Preliminary Report: No growth to date. Urinalysis reflex to microscopic and culture Urine, bladder Collection Time: 04/09/21 11:00 AM Specimen: Urine, bladder Result Value Ref Range Color, ur Yellow Yellow Clarity, ur Cloudy (A) Clear Specific gravity, ur 1.011 1.010 - 1.025 pH, urine 7 Protein, ur ql 1+ (A) Negative Glucose, ur ql Negative Negative Ketones, ur Negative Negative Bilirubin, ur Negative Negative Blood, ur 1+ (A) Negative Urobilinogen, ur <2.0 <2.0 mg/dL Nitrite, ur Negative Negative Leukocyte esterase, ur 3+ (A) Negative UA reflex comment Reflex to microscopic UA will be performed. Urinalysis, microscopic only Collection Time: 04/09/21 11:00 AM Result Value Ref Range WBC, ur 21-50 (A) 0 - 5 /HPF RBC, ur 3-5 (A) 0 - 2 /HPF Epithelial cells, squamous, ur 1-5 0 - 5 /HPF Bacteria, ur Trace (A) Mucous, ur Present (A) Culture Reflex Comment Reflex to urine culture will be performed. Urine culture Urine, bladder Collection Time: 04/09/21 11:00 AM Specimen: Urine, bladder Result Value Ref Range Report Preliminary Report: No growth to date. C. difficile testing Stool Collection Time: 04/09/21 5:30 PM Specimen: Stool Result Value Ref Range C. diff result Negative, free toxin Negative, free toxin C. diff interp Negative for toxigenic Clostridioides (Clostridium) difficile. Analysis was performed using an enzyme immunoassay that detects C. difficile toxin(s) in feces. CBC with auto differential Collection Time: 04/09/21 9:09 PM Result Value Ref Range WBC 12.2 (H) 3.8 - 9.9 K/cumm Hgb 8.8 (L) 13.0 - 17.5 g/dL Hct 27.8 (L) 38.9 - 50.3 % Plt 387 150 - 400 K/cumm MPV 11.2 9.1 - 12.3 fL RBC 3.23 (L) 4.30 - 5.80 M/cumm MCV 86.1 81.3 - 96.4 fL MCH 27.2 27.1 - 33.3 pg MCHC 31.7 (L) 32.3 - 35.7 g/dL RDW CV 15.7 (H) 11.1 - 14.9 % RDW SD 49.3 (H) 35.7 - 48.1 fL NRBC abs 0.00 0.00 - 0.01 K/cumm Comprehensive metabolic panel Collection Time: 04/09/21 9:09 PM Result Value Ref Range Sodium 132 (L) 135 - 145 mmol/L Potassium, pl 4.6 3.3 - 4.9 mmol/L Chloride 100 97 - 110 mmol/L CO2 22 22 - 32 mmol/L Anion gap 10 2 - 15 mmol/L BUN 7 (L) 8 - 25 mg/dL Creatinine 0.59 (L) 0.80 - 1.30 mg/dL Glucose 99 70 - 199 mg/dL Calcium 8.2 (L) 8.5 - 10.3 mg/dL Bilirubin, total 0.4 0.1 - 1.2 mg/dL Protein, pl 6.7 6.5 - 8.5 g/dL Albumin 2.4 (L) 3.5 - 5.0 g/dL Alk phos 88 40 - 130 Units/L ALT 40 7 - 55 Units/L AST 49 10 - 50 Units/L Differential, auto Collection Time: 04/09/21 9:09 PM Result Value Ref Range Neutrophil abs 9.6 (H) 1.7 - 6.5 K/cumm Imm gran abs 0.1 0.0 - 0.1 K/cumm Lymphocyte abs 1.7 0.8 - 3.3 K/cumm Monocyte abs 0.6 0.2 - 0.8 K/cumm Eosinophil abs 0.1 0.0 - 0.5 K/cumm Basophil abs 0.0 0.0 - 0.1 K/cumm Neutrophil pct 78.9 % Imm gran pct 1.1 % Lymphocyte pct 14.1 % Monocyte pct 5.1 % Eosinophil pct 0.6 % Basophil pct 0.2 % I have reviewed the laboratory results. Imaging Results: XR Chest 1 View Narrative: EXAMINATION: 1 view chest radiograph Impression: Comparison is made to prior examination from 03/10/2021. No consolidation, effusion, or pneumothorax. Stable heart size. Electronically signed by: Suleman Frost M.D. 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 MRI total spine 03/30 with destruction at the lumbosacral junction with disorganized bone fragments and a fluid collection in the calf between the small residual components of the L5 vertebral body in the remainder of the sacrum. No evidence of discitis/OM in cervical,thoracic, or lumbar spine from L1 through L4. Large disc protrusion at C5-C6 causing moderate canalstenosis. Changes of spinal cord injury in the [...] in the setting of positive fluid culture on04/02. Per note left on 04/07, this is still the case as they feel surgical management is very highlyunlikely to clear his infection and could exacerbate his status. Per IR, drain is also not a good option as fluid collection would not likely drain effectively. - Leukocytosis improved from 17 on 04/09 down to 12, no new source of infection with work-up, monitor Complicated UTI (urinary tract infection) Assessment & Plan Pt admitted w/ sepsis, now stabilized w/ IVF, abx. UA with 3+ LE, 2+ blood. CRP 177, ESR 64. MRSA swab negative, and covid negative. Ur cx grewg >100k mixed mallory. CT a/p performed at OSH with BL perinephric fat, unchanged stones in urinary bladder and urethra. 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 Per Urology, unclear if stoma arises from a samira-bladder vs regular vs augmented bladder. - Per Urology, rec 14 dominican lynch and tape to abdomen (no balloon). Can resume q2-3hr caths outpatient. - Stone removal is elective per Urology and can be addressed after this hospital stay and after resolution of acute medical issues. Patient had an appointment with an OSH urologist for this which hisfamily will reschedule. - pt may have failed cipro, ctx, zosyn at OSH with persistent fevers (last fever 04/03); switched tovanc/kaykay on 03/28. Switched to CTX 04/07 per ID recs. Continuous leakage of urine Assessment & Plan Urology consulted. See above. Discharge planning issues Assessment & Plan SNF referral Atypical chest pain Assessment & Plan Acute episode of substernal chest pressure on 04/06 in the AM. No evidence of ischemia on EKG. Did not respond to SL NTG. Improved with Tums. Suspect GERD. No recurrence. - Continue PPI, Started Famotidine daily - Tums PRN - another episode of epigastric/substernal discomfort 04/08, changes Protonix and Pepcid to Protonix BID before meals - Monitor Tachypnea Assessment & Plan D-dimer elevated to 3800s in the setting [...] tachypnea drastically changes. Wells score of 3 Hyponatremia Assessment & Plan No symptoms. unclear etiology, ?possible volume overload. Urine osm 388, urine Na 70, ser osm 276 c/w hypotonic hyponatremia. On RA, urinating well. Not grossly volume overloaded. BNP mildly elevated. CXR with mild CM. Stable low 130s. - Monitor. Anemia Assessment & Plan Mixed chronic/inflammatory form infection and iron deficiency, iron profile 32/120/18 - Cont. Ferrous sulfate, Transfuse prn < 7 Pressure injury of skin of buttock Assessment & Plan Per ACCS consult, wounds overall appear healthy [...] Extra Protective Cream BId and prn. Utilize genet spray and genet wipes to remove EPC to prevent further excoriation. - Left buttock pressure injury/Eschar covered: gently cleanse with genet spray and genet wipes to dissolve Extra Protective Cream, pat dry , Apply a thin layer of Extra Protective cream to cover Eschar, BID and prn soiling. - Pain management as above HTN (hypertension) Assessment & Plan On clonidine, hydralazine, coreg, amlodipine, losartan at home. All BP meds held on admission 2/2 sepsis. BP is now relatively controlled on Norvasc, Coreg only (SBP 110-150s). Will not plan to resume Losartan, Hydralazine, Clonidine at this time. - Continue Coreg and dc Norvasc with soft BPs - Monitor BP Paraplegia (CMS/HCC) Assessment & Plan No sensation/motor function from nipples down - pain control with norco, fentanyl patch - c/w and adjust bowel regimen * Fara Pisano MD - 04/09/2021 1:17 PM CDT Daily Progress Note Division of Hospital Medicine Name: Shawn Casey Jr. Today: April 09, 2021 : 1985 Age: 35 y.o. male Admit: 03/28/2021 Bed: [id number] Subjective Interval History: Epigastric pain yesterday afternoon, trop negaiv,e CXR negative, EKG NSR no ischemic changes, given Tums and NTG and resolved. On IV Ceftriaxone for infected lumbosacral fluid collection. NO new complaints Objective Medications: Scheduled: amLODIPine, 10 mg, oral, Daily carvediloL, 3.125 mg, oral, BID with meals (bkfst, dinner) cefTRIAXone, 2,000 mg, intravenous, Q24H MARYANN diphenhydrAMINE, 25 mg, oral, Daily enoxaparin, 40 mg, subcutaneous, Q12H MARYANN famotidine, 20 mg, oral, Daily fentaNYL, 1 patch, transdermal, Q72H ferrous sulfate, 65 mg of elemental iron, oral, Daily with breakfast gabapentin, 300 mg, oral, Nightly linaCLOtide, 145 mcg, oral, Daily pantoprazole DR, 40 mg, oral, Daily polyethylene glycol, 17 g, oral, Daily potassium chloride ER, 20 mEq, oral, Nightly potassium chloride ER, 40 mEq, oral, Daily senna-docusate, 1 tablet, oral, BID sucralfate, 1 g, oral, TID AC Infusions: PRN: ??? acetaminophen ??? calcium carbonate ??? cyclobenzaprine ??? heparin flush (porcine) ??? HYDROcodone-acetaminophen ??? nitroglycerin ??? ondansetron ODT OR ondansetron Vitals: 24hr Min/Max: Temp Min: 36.7 ??C (98.1 ??F) Max: 37.6 ??C (99.6 ??F) Pulse Min: 90 Max: 98 BP Min: 93/59 Max: 138/77 Resp Min: 16 Max: 20 SpO2 Min: 94 % Max: 100 % Most Recent: Vitals: 04/09/21 1221 BP: 93/59 Pulse: 98 Resp: 20 Temp: 37 ??C (98.6 ??F) SpO2: 99% Intake/Output Summary (Last 24 hours) at 04/09/2021 1302 Last data filed at 04/09/2021 0450 Gross per 24 hour Intake 1100 ml Output 300 ml Net 800 ml Physical Exam General: NAD. Obese HEENT: PERRLA, EOMI, MMM Neck: Supple Respi: CTAB, no wheezes/crackles/rhonchi CVS: S1S2, no M/R/G, no edema GI: not distended, normal BS, soft, non tender, stoma present on hypogastric area with bag in placecontaining clear urine MSK: bilateral BKA Neuro: Nonfocal Skin: Warm and dry Lab/Diagnostic Review: Recent Results (from the past 36 hour(s)) POCT glucose Collection Time: 04/08/21 4:58 PM Result Value Ref Range Glucose, POC 96 70 - 199 mg/dL ECG 12 lead Collection Time: 04/08/21 5:12 PM Result Value Ref Range Ventricular Rate EKG/Min 86 BPM Atrial Rate 86 BPM MT-Interval (MSEC) 182 ms QRS-Interval (MSEC) 100 ms QT-Interval (MSEC) 372 ms QTc 445 ms P [place] 25 degrees R [place] 14 degrees T [place] 5 degrees Diagnosis Normal sinus rhythm Nonspecific T wave abnormality Abnormal ECG When compared with ECG of 06-APR-2021 09:07, No significant change was found Confirmed by CARRINGTON GONZALES M.D ([id number]) on 04/09/2021 10:58:38 AM Troponin I high-sensitivity Collection Time: 04/08/21 5:19 PM Result Value Ref Range Trop I hs <4 <=35 ng/L CBC with auto differential Collection Time: 04/08/21 8:51 PM Result Value Ref Range WBC 17.6 (H) 3.8 - 9.9 K/cumm Hgb 9.5 (L) 13.0 - 17.5 g/dL Hct 29.4 (L) 38.9 - 50.3 % Plt 418 (H) 150 - 400 K/cumm MPV 10.6 9.1 - 12.3 fL RBC 3.52 (L) 4.30 - 5.80 M/cumm MCV 83.5 81.3 - 96.4 fL MCH 27.0 (L) 27.1 - 33.3 pg MCHC 32.3 32.3 - 35.7 g/dL RDW CV 15.7 (H) 11.1 - 14.9 % RDW SD 47.9 35.7 - 48.1 fL NRBC abs 0.00 0.00 - 0.01 K/cumm Comprehensive metabolic panel Collection Time: 04/08/21 8:51 PM Result Value Ref Range Sodium 132 (L) 135 - 145 mmol/L Potassium, pl 4.4 3.3 - 4.9 mmol/L Chloride 99 97 - 110 mmol/L CO2 23 22 - 32 mmol/L Anion gap 10 2 - 15 mmol/L BUN 7 (L) 8 - 25 mg/dL Creatinine 0.57 (L) 0.80 - 1.30 mg/dL Glucose 101 70 - 199 mg/dL Calcium 8.8 8.5 - 10.3 mg/dL Bilirubin, total 0.7 0.1 - 1.2 mg/dL Protein, pl 7.3 6.5 - 8.5 g/dL Albumin 2.8 (L) 3.5 - 5.0 g/dL Alk phos 92 40 - 130 Units/L ALT 40 7 - 55 Units/L AST 37 10 - 50 Units/L Differential, auto Collection Time: 04/08/21 8:51 PM Result Value Ref Range Neutrophil abs 15.3 (H) 1.7 - 6.5 K/cumm Imm gran abs 0.2 (H) 0.0 - 0.1 K/cumm Lymphocyte abs 1.2 0.8 - 3.3 K/cumm Monocyte abs 0.8 0.2 - 0.8 K/cumm Eosinophil abs 0.0 0.0 - 0.5 K/cumm Basophil abs 0.0 0.0 - 0.1 K/cumm Neutrophil pct 86.9 % Imm gran pct 1.3 % Lymphocyte pct 7.0 % Monocyte pct 4.4 % Eosinophil pct 0.2 % Basophil pct 0.2 % CRP (acute phase) Collection Time: 04/08/21 8:51 PM Result Value Ref Range CRP 212.2 (H) <=10.0 mg/L Erythrocyte sedimentation rate Collection Time: 04/09/21 9:11 AM Result Value Ref Range Erythrocyte sedimentation rate 106 (H) 1 - 15 mm/hr Urinalysis reflex to microscopic and culture Urine, bladder Collection Time: 04/09/21 11:00 AM Specimen: Urine, bladder Result Value Ref Range Color, ur Yellow Yellow Clarity, ur Cloudy (A) Clear Specific gravity, ur 1.011 1.010 - 1.025 pH, urine 7 Protein, ur ql 1+ (A) Negative Glucose, ur ql Negative Negative Ketones, ur Negative Negative Bilirubin, ur Negative Negative Blood, ur 1+ (A) Negative Urobilinogen, ur <2.0 <2.0 mg/dL Nitrite, ur Negative Negative Leukocyte esterase, ur 3+ (A) Negative UA reflex comment Reflex to microscopic UA will be performed. Urinalysis, microscopic only Collection Time: 04/09/21 11:00 AM Result Value Ref Range WBC, ur 21-50 (A) 0 - 5 /HPF RBC, ur 3-5 (A) 0 - 2 /HPF Epithelial cells, squamous, ur 1-5 0 - 5 /HPF Bacteria, ur Trace (A) Mucous, ur Present (A) Culture Reflex Comment Reflex to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 Norris MD - 04/04/2021 12:29 PM CDT Infectious Disease Daily Progress Note Infectious Disease Team: General 1 Contact Information: Please see [facility] Treatment Team listing for up-to-date contact information. Subjective Interval History: Patient remains febrile. Feeling tired and sick this morning. Fever and chills. Objective Anti-infectives (From admission, onward) Start Dose/Rate Route Frequency Ordered Stop 04/02/21 1400 vancomycin (VANCOCIN) 2,000 mg in sodium chloride 0.9% 500 mL IVPB 15 mg/kg ?? 133.3 kg 260 mL/hr over 120 Minutes intravenous Every 24 hours 04/01/21 1250 03/29/21 1400 meropenem (MERREM) 2,000 mg/120 mL in sodium chloride 0.9% (premix) 2,000 mg 2,000 mg 240 mL/hr over 30 Minutes intravenous Every 8 hours scheduled 03/29/21 1142 Vitals: Most Recent : Vitals: 04/04/21 0905 BP: 140/82 Pulse: 84 Resp: 26 Temp: 36.9 ??C (98.4 ??F) SpO2: 99% Active LDAs: PICC Single Lumen Non-tunneled Left Upper arm (Active) Number of days: Urostomy Samira-bladder Mid-line (Active) Number of days: Physical Exam: Physical Exam Constitutional: Appearance: He is not ill-appearing or toxic-appearing. HENT: Nose: No congestion. Mouth/Throat: Mouth: Mucous membranes are moist. Pharynx: No oropharyngeal exudate or posterior oropharyngeal erythema. Eyes: General: No scleral icterus. Pupils: Pupils are equal, round, and reactive to light. Cardiovascular: Rate and Rhythm: Normal rate and regular rhythm. Heart sounds: No murmur heard. Pulmonary: Breath sounds: Normal breath sounds. No wheezing or rales. Abdominal: Palpations: Abdomen is soft. Tenderness: There is no abdominal tenderness. There is no guarding. Skin: General: Skin is warm. Neurological: General: No focal deficit present. Lab/Radiology/Diagnostic Review: Laboratory review: Chemistry CMP: Lab Results Component Value Date ALBUMIN 2.4 (L) 04/03/2021 BUNSER 9 04/03/2021 CALCIUM 8.4 (L) 04/03/2021 CO2 20 (L) 04/03/2021 CHLORIDE 103 04/03/2021 CREATININE 0.67 (L) 04/03/2021 GLUCOSE 114 04/04/2021 GLUCOSE 114 04/03/2021 POTASSIUM 4.2 04/03/2021 SODIUM 134 (L) 04/03/2021 BILITOT 0.7 04/03/2021 PROT 6.7 04/03/2021 ALT 88 (H) 04/03/2021 AST 97 (H) 04/03/2021 ALKPHOS 105 04/03/2021 and CBC: Lab Results Component Value Date WBC 18.5 (H) 04/03/2021 RBC 3.44 (L) 04/03/2021 HGB 9.6 (L) 04/03/2021 HCT 29.1 (L) 04/03/2021 MCV 84.6 04/03/2021 MCH 27.9 04/03/2021 MCHC 33.0 04/03/2021 RDWCV 16.8 (H) 04/03/2021 RDWSD 51.8 (H) 04/03/2021 MPV 11.4 04/03/2021 NRBCABS 0.00 04/03/2021 Relevant Microbiology: 03/28 BCx NGTD 03/29 UCx NG 03/30 BCx NGTD 03/31 C diff negative 03/31 Sacral fluid collection E coli Relevant Radiology: 03/29 MRI spine w and w/o contrast IMPRESSION: ?? 1. The CT, MR spine radiographs, and MRI show destruction at the lumbosacral junction with disor of the lumbosacral junction rather than acute infection. Thganized bone fragments and a fluid collection in the calf between the small residual components of the L5 vertebral body in the remainder of the sacrum. The fluid collection displaces the iliopsoas muscles but does not cause edema within them which is more typical of infection. Constellation of findings favors a neuropathic spine with destructione possibility of superinfection is not entirely excluded, particularly noting the patient's urinary tract infection and ulcers in the region. ?? There is no evidence of discitis osteomyelitis in the cervical, thoracic, or lumbar spine from L1 through L4. ?? 2. Large disc protrusion at C5-C6 causing moderate canal stenosis. ?? 3. 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 Assessment/Plan Problems: Infected lumbosacral spine fluid collection Possible pyelonephritis Sacral decubitus ulcer Recommendations: - Please consult spine surgery for drainage of sacral collection. Patient needs source control for this infection as it is progressing in spite of aggressive antibiotic therapy. - Please send cultures from OR if goes for surgery. Will follow. Discussed with Dr. Liang. Santos Callaway Infectious Diseases Fellow Thank-you for the opportunity to participate in the care of your patient. Please contact the Team 1ID fellow at [phone] with any questions or concerns. After hours the ID fellow aluminum container tester can be reached at [phone]. Cosigned by Pattie Liang MD PhD at 04/04/2021 1:59 PM CDT Associated attestation - Pattie Liang MD PhD - 04/04/2021 1:59 PM CDT I have seen and examined the patient on 04/04/21. I agree with the findings and plan of care as documented by Dr Stout. Spinal infection with collection on imaging growing E coli. Elevated inflammatory markers, clinically deteriorating. Needs source control. Recommend surgical evaluation * Mary Hutchison MD - 04/03/2021 12:44 PM CDT Daily Progress Note Division of Hospital Medicine Name: Shawn Casey Jr. Today: April 03, 2021 : 1985 Age: 35 y.o. male Admit: 03/28/2021 Bed: [id number] Subjective Interval History: Patient febrile to 38.9 overnight with subjective fever. No other complaints. He says the spine surgeons have seen him and are talking about draining his fluid collection, though this is not documented yet. Objective Medications: Scheduled: amLODIPine, 10 mg, oral, Daily carvediloL, 3.125 mg, oral, BID with meals (bkfst, dinner) cloNIDine, 0.1 mg, oral, BID diphenhydrAMINE, 25 mg, oral, Daily enoxaparin, 40 mg, subcutaneous, Q12H MARYANN fentaNYL, 1 patch, transdermal, Q72H ferrous sulfate, 65 mg of elemental iron, oral, Daily with breakfast gabapentin, 300 mg, oral, Nightly linaCLOtide, 145 mcg, oral, Daily [Held by Provider] losartan, 50 mg, oral, Daily meropenem, 2,000 mg, intravenous, Q8H MARYANN pantoprazole DR, 40 mg, oral, Daily polyethylene glycol, 17 g, oral, Daily potassium chloride ER, 20 mEq, oral, Nightly potassium chloride ER, 40 mEq, oral, Daily senna-docusate, 1 tablet, oral, BID sucralfate, 1 g, oral, TID AC vancomycin, 15 mg/kg, intravenous, Q24H Infusions: PRN: ??? acetaminophen ??? cyclobenzaprine ??? HYDROcodone-acetaminophen ??? ondansetron ODT OR ondansetron Vitals: 24hr Min/Max: Temp Min: 37.3 ??C (99.1 ??F) Max: 38.9 ??C (102 ??F) Pulse Min: 92 Max: 103 BP Min: 111/56 Max: 137/77 Resp Min: 16 Max: 18 SpO2 Min: 97 % Max: 100 % Most Recent: Vitals: 04/03/21 0837 BP: 137/77 Pulse: 92 Resp: 16 Temp: 37.3 ??C (99.1 ??F) SpO2: 98% Intake/Output Summary (Last 24 hours) at 04/03/2021 1225 Last data filed at 04/02/2021 2137 Gross per 24 hour Intake -- Output 400 ml Net -400 ml Physical Exam Constitutional:?NAD, well developed, well nourished Eyes:?PERRL, EOMI, anicteric ENT:?NCAT, oropharynx normal, moist mucus membranes Lungs:?Clear to auscultation in all lung marrero, unlabored, trachea midline. Mild tachypnea Cardiovascular:?RRR, normal S1 and S2, no murmurs, no JVD GI:?Soft, non- tender, non-distended, bowel sounds +, no organomegaly. Stoma present in abdominal wall?? Skin:?No new rashes, lesions or bruises Extremities:?S/p BKA BL, legs with sequelae of surgeries/grafts.??Normal without edema or cyanosis Lymph:?No cervical, supraclavicular, axillary or inguinal adenopathy Neurologic:?AOx4, CNII-XII intact, normal strength and sensation Psychiatric:?Normal affect and mood :? Urethra meatus ?split open, urine leaking from meatus, no signs of infection. Lab/Diagnostic Review: Recent Results (from the past 36 hour(s)) CBC with auto differential Collection Time: 04/02/21 9:31 PM Result Value Ref Range WBC 18.1 (H) 3.8 - 9.9 K/cumm Hgb 9.8 (L) 13.0 - 17.5 g/dL Hct 30.2 (L) 38.9 - 50.3 % Plt 411 (H) 150 - 400 K/cumm MPV 11.2 9.1 - 12.3 fL RBC 3.59 (L) 4.30 - 5.80 M/cumm MCV 84.1 81.3 - 96.4 fL MCH 27.3 27.1 - 33.3 pg MCHC 32.5 32.3 - 35.7 g/dL RDW CV 16.9 (H) 11.1 - 14.9 % RDW SD 52.3 (H) 35.7 - 48.1 fL NRBC abs 0.00 0.00 - 0.01 K/cumm Comprehensive metabolic panel Collection Time: 04/02/21 9:31 PM Result Value Ref Range Sodium 132 (L) 135 - 145 mmol/L Potassium, pl 4.2 3.3 - 4.9 mmol/L Chloride 103 97 - 110 mmol/L CO2 18 (L) 22 - 32 mmol/L Anion gap 11 2 - 15 mmol/L BUN 8 8 - 25 mg/dL Creatinine 0.63 (L) 0.80 - 1.30 mg/dL Glucose 110 70 - 199 mg/dL Calcium 8.8 8.5 - 10.3 mg/dL Bilirubin, total 1.0 0.1 - 1.2 mg/dL Protein, pl 6.8 6.5 - 8.5 g/dL Albumin 2.7 (L) 3.5 - 5.0 g/dL Alk phos 95 40 - 130 Units/L ALT 78 (H) 7 - 55 Units/L AST 78 (H) 10 - 50 Units/L Differential, auto Collection Time: 04/02/21 9:31 PM Result Value Ref Range Neutrophil abs 14.3 (H) 1.7 - 6.5 K/cumm Imm gran abs 1.0 (H) 0.0 - 0.1 K/cumm Lymphocyte abs 1.9 0.8 - 3.3 K/cumm Monocyte abs 0.8 0.2 - 0.8 K/cumm Eosinophil abs 0.1 0.0 - 0.5 K/cumm Basophil abs 0.0 0.0 - 0.1 K/cumm Neutrophil pct 79.2 % Imm gran pct 5.3 % Lymphocyte pct 10.5 % Monocyte pct 4.5 % Eosinophil pct 0.3 % Basophil pct 0.2 % I have reviewed the laboratory results. Imaging Results: IR Fluid Aspiration Narrative: EXAMINATION: L5-S1 fluid collection aspiration under CT guidance HISTORY: Paraplegia with L5-S1 abscess versus neurogenic spine. ATTENDING PRESENCE: Dr. Rhett Gomez M.D., the attending radiologist, was present from the beginning to the end of the procedure. SEDATION: The patient did not require conscious sedation for the procedure. TECHNIQUE: The risks, benefits and alternatives were discussed and informed consent was obtained. Prior to beginning the procedure, [place] Protocol was performed to confirm the patient's [...] CT guidance. 5 mL cloudy roldan fluid aspirated and sent for cell count, Gram stain, and culture. Electronically signed by: Rhett Gomez M.D. XR Chest 1 View Narrative: EXAMINATION: 1 view chest radiograph Impression: Comparison is made to chest radiograph dated 03/29/2021. Left upper extremity peripherally inserted central catheter tip overlies the superior vena cava. No pulmonary consolidation, pleural effusion, or pneumothorax. Normal cardiomediastinal silhouette. Electronically signed by: Kiana Salomon M.D. Assessment/Plan Charcot's arthropathy of intervertebral joint Assessment & Plan CT a/p performed OSH with BL perinephric [...] region biopsied before that was not cancer .CT a/p over-read here: Large destructive process centered at [...] the sacrum. Fluid collection likely not infection, mostlikely inflammatory, ?charcot joint. No evidence of discitis/OM [...] E coli - Monitor for recurrent fever Complicated UTI (urinary tract infection) Assessment & Plan Pt admitted w/ sepsis, now stabilized w/ IVF, abx. UA with 3+ LE, 2+ blood. CRP 177, ESR 64. MRSA swab negative, and covid negative. Ur cx grewg >100k mixed mallory. CT a/p performed at OSH with BL perinephric fat, unchanged stones in urinary bladder and urethra. 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 Per Urology c/s: unclear if stoma arises from a samira-bladder vs regular vs augmented bladder. - Per Urology, rec 14 dominican lynch and tape to abdomen (no balloon). Can resume q2-3hr caths as home. Can follow up with home urologist for stones in bladder - pt may have failed cipro, ctx, zosyn at OSH with persistent fevers (last fever 03/31); now on vanc/kaykay - ID following Diarrhea Assessment & Plan Non-bloody, no new abdominal pain, on abx as noted elsewhere. C diff neg. - Monitor Tachypnea Assessment & Plan D-dimer elevated to 3800s in the setting [...] tachypnea drastically changes. Wells score of 3 Hyponatremia Assessment & Plan No symptoms. unclear etiology, ?possible volume overload. Urine osm 388, urine Na 70, ser osm 276 c/w hypotonic hyponatremia. On RA, urinating well. Not grossly volume overloaded. BNP mildly elevated. CXR with mild CM. Stable low 130s. - Monitor. Elevated bilirubin Assessment & Plan Isolated elevated bilirubin to 2.4 on admission, now trending down. Possibly 2/2 shock. RUQ ultrasound wnl. - Monitor bilirubin daily Pressure injury of skin of buttock Assessment & Plan Per ACCS consult, wounds overall appear healthy with no obvious necrosis or purulence, no surgical intervention indicated. - wound consult - pain management as above Continuous leakage of urine Assessment & Plan - urology consulted. See above HTN (hypertension) Assessment & Plan On clonidine, hydralazine, coreg, amlodipine, losartan at home. - BP meds held on admission 2/2 sepsis; still holding Losartan, Hydralazine - Resumed Clonidine, Norvasc, Coreg. As BP is well controlled, will DC Clonidine. Can increase Coreg PRN if needs further BP control. Paraplegia (CMS/HCC) Assessment & Plan No sensation/motor function from nipples down - pain control with norco, fentanyl - c/w bowel regimen Anemia Assessment & Plan Likely anemia of chronic disease. - Transfuse prn < 7 * Santos Norris MD - 04/02/2021 5:46 PM CDT Infectious Disease Daily Progress Note Infectious Disease Team: General 1 Contact Information: Please see [facility] Treatment Team listing for up-to-date contact information. Subjective Interval History: No major events. Remains afebrile. No new symptoms. No pain, fever or chills. Objective Anti-infectives (From admission, onward) Start Dose/Rate Route Frequency Ordered Stop 04/02/21 1400 vancomycin (VANCOCIN) 2,000 mg in sodium chloride 0.9% 500 mL IVPB 15 mg/kg ?? 133.3 kg 260 mL/hr over 120 Minutes intravenous Every 24 hours 04/01/21 1250 03/29/21 1400 meropenem (MERREM) 2,000 mg/120 mL in sodium chloride 0.9% (premix) 2,000 mg 2,000 mg 240 mL/hr over 30 Minutes intravenous Every 8 hours scheduled 03/29/21 1142 Vitals: Most Recent : Vitals: 04/02/21 1725 BP: 128/67 Pulse: 95 Resp: 18 Temp: 38.2 ??C (100.7 ??F) SpO2: 100% Active LDAs: PICC Single Lumen Non-tunneled Left Upper arm (Active) Number of days: Urostomy Samira-bladder Mid-line (Active) Number of days: Physical Exam: Physical Exam Constitutional: Appearance: He is not ill-appearing or toxic-appearing. HENT: Nose: No congestion. Mouth/Throat: Mouth: Mucous membranes are moist. Pharynx: No oropharyngeal exudate or posterior oropharyngeal erythema. Eyes: General: No scleral icterus. Pupils: Pupils are equal, round, and reactive to light. Cardiovascular: Rate and Rhythm: Normal rate and regular rhythm. Heart sounds: No murmur heard. Pulmonary: Breath sounds: Normal breath sounds. No wheezing or rales. Abdominal: Palpations: Abdomen is soft. Tenderness: There is no abdominal tenderness. There is no guarding. Skin: General: Skin is warm. Neurological: General: No focal deficit present. Lab/Radiology/Diagnostic Review: Laboratory review: Chemistry CMP: Lab Results Component Value Date ALBUMIN 2.3 (L) 04/01/2021 BUNSER 8 04/01/2021 CALCIUM 8.5 04/01/2021 CO2 18 (L) 04/01/2021 CHLORIDE 105 04/01/2021 CREATININE 0.62 (L) 04/01/2021 GLUCOSE 101 04/01/2021 POTASSIUM 4.2 04/01/2021 SODIUM 133 (L) 04/01/2021 BILITOT 0.7 04/01/2021 PROT 6.3 (L) 04/01/2021 ALT 58 (H) 04/01/2021 AST 60 (H) 04/01/2021 ALKPHOS 80 04/01/2021 and CBC: Lab Results Component Value Date WBC 17.0 (H) 04/01/2021 RBC 3.52 (L) 04/01/2021 HGB 9.6 (L) 04/01/2021 HCT 29.8 (L) 04/01/2021 MCV 84.7 04/01/2021 MCH 27.3 04/01/2021 MCHC 32.2 (L) 04/01/2021 RDWCV 17.1 (H) 04/01/2021 RDWSD 52.7 (H) 04/01/2021 MPV 11.8 04/01/2021 NRBCABS 0.00 04/01/2021 Relevant Microbiology: 03/28 BCx NGTD 03/29 UCx NG 03/30 BCx NGTD 03/31 C diff negative 03/31 Sacral fluid collection E coli Relevant Radiology: 03/29 MRI spine w and w/o contrast IMPRESSION: ?? 1. The CT, MR spine radiographs, and MRI show destruction at the lumbosacral junction with disor of the lumbosacral junction rather than acute infection. Thganized bone fragments and a fluid collection in the calf between the small residual components of the L5 vertebral body in the remainder of the sacrum. The fluid collection displaces the iliopsoas muscles but does not cause edema within them which is more typical of infection. Constellation of findings favors a neuropathic spine with destructione possibility of superinfection is not entirely excluded, particularly noting the patient's urinary tract infection and ulcers in the region. ?? There is no evidence of discitis osteomyelitis in the cervical, thoracic, or lumbar spine from L1 through L4. ?? 2. Large disc protrusion at C5-C6 causing moderate canal stenosis. ?? 3. 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 Assessment/Plan Problems: Infected lumbosacral spine fluid collection Possible pyelonephritis Sacral decubitus ulcer Recommendations: - Continue vancomycin and meropenem. - Please consult spine surgery for evaluation and possible surgical management of infected sacral fluid collection. - Final plan pending surgical evaluation. Will follow. Discussed with Dr. Liang. Santos Callaway Infectious Diseases Fellow Thank-you for the opportunity to participate in the care of your patient. Please contact the Team 1ID fellow at [phone] with any questions or concerns. After hours the ID fellow aluminum container tester can be reached at [phone]. Cosigned by Pattie Liang MD PhD at 04/08/2021 8:46 AM CDT Associated attestation - Pattie Liang MD PhD - 04/08/2021 8:46 AM CDT I have seen and examined the patient on 04/02/2021.I agree with the findings and plan of care as documented by Dr Argelia Hutchison, Mary Bullock MD - 04/02/2021 2:15 PM CDT Daily Progress Note Division of Hospital Medicine Name: Shawn Casey Jr. Today: April 02, 2021 : 1985 Age: 35 y.o. male Admit: 03/28/2021 Bed: [id number] Subjective Interval History: No new complaints. Continues to look groggy but is arousable and says this is hisnormal level of activity. Objective Medications: Scheduled: amLODIPine, 10 mg, oral, Daily carvediloL, 3.125 mg, oral, BID with meals (bkfst, dinner) cloNIDine, 0.1 mg, oral, BID diphenhydrAMINE, 25 mg, oral, Daily enoxaparin, 40 mg, subcutaneous, Q12H MARYANN fentaNYL, 1 patch, transdermal, Q72H ferrous sulfate, 65 mg of elemental iron, oral, Daily with breakfast gabapentin, 300 mg, oral, Nightly linaCLOtide, 145 mcg, oral, Daily [Held by Provider] losartan, 50 mg, oral, Daily meropenem, 2,000 mg, intravenous, Q8H MARYANN pantoprazole DR, 40 mg, oral, Daily polyethylene glycol, 17 g, oral, Daily potassium chloride ER, 20 mEq, oral, Nightly potassium chloride ER, 40 mEq, oral, Daily senna-docusate, 1 tablet, oral, BID sucralfate, 1 g, oral, TID AC vancomycin, 15 mg/kg, intravenous, Q24H Infusions: [Held by Provider] sodium chloride 0.9%, 100 mL/hr, Last Rate: 100 mL/hr (03/29/21 0538) PRN: ??? acetaminophen ??? cyclobenzaprine ??? HYDROcodone-acetaminophen ??? ondansetron ODT OR ondansetron Vitals: 24hr Min/Max: Temp Min: 36.8 ??C (98.2 ??F) Max: 37.7 ??C (99.8 ??F) Pulse Min: 84 Max: 105 BP Min: 112/72 Max: 137/84 Resp Min: 18 Max: 20 SpO2 Min: 93 % Max: 99 % Most Recent: Vitals: 04/02/21 1110 BP: 112/72 Pulse: 84 Resp: 18 Temp: 36.8 ??C (98.2 ??F) SpO2: 99% Intake/Output Summary (Last 24 hours) at 04/02/2021 1350 Last data filed at 04/02/2021 1000 Gross per 24 hour Intake 240 ml Output 500 ml Net -260 ml Physical Exam Constitutional:?NAD, well developed, well nourished Eyes:?PERRL, EOMI, anicteric ENT:?NCAT, oropharynx normal, moist mucus membranes Lungs:?Clear to auscultation in all lung marrero, unlabored, trachea midline. Mild tachypnea Cardiovascular:?RRR, normal S1 and S2, no murmurs, no JVD GI:?Soft, non- tender, non-distended, bowel sounds +, no organomegaly. Stoma present in abdominal wall?? Skin:?No new rashes, lesions or bruises Extremities:?S/p BKA BL, legs with sequelae of surgeries/grafts.??Normal without edema or cyanosis Lymph:?No cervical, supraclavicular, axillary or inguinal adenopathy Neurologic:?AOx4, CNII-XII intact, normal strength and sensation Psychiatric:?Normal affect and mood :? Urethra meatus ?split open, urine leaking from meatus, no signs of infection. Lab/Diagnostic Review: Recent Results (from the past 36 hour(s)) Vancomycin level trough Collection Time: 04/01/21 2:33 AM Result Value Ref Range Vancomycin trough 11.1 10.0 - 20.0 mcg/mL CBC with auto differential Collection Time: 04/01/21 9:32 PM Result Value Ref Range WBC 17.0 (H) 3.8 - 9.9 K/cumm Hgb 9.6 (L) 13.0 - 17.5 g/dL Hct 29.8 (L) 38.9 - 50.3 % Plt 362 150 - 400 K/cumm MPV 11.8 9.1 - 12.3 fL RBC 3.52 (L) 4.30 - 5.80 M/cumm MCV 84.7 81.3 - 96.4 fL MCH 27.3 27.1 - 33.3 pg MCHC 32.2 (L) 32.3 - 35.7 g/dL RDW CV 17.1 (H) 11.1 - 14.9 % RDW SD 52.7 (H) 35.7 - 48.1 fL NRBC abs 0.00 0.00 - 0.01 K/cumm Comprehensive metabolic panel Collection Time: 04/01/21 9:32 PM Result Value Ref Range Sodium 133 (L) 135 - 145 mmol/L Potassium, pl 4.2 3.3 - 4.9 mmol/L Chloride 105 97 - 110 mmol/L CO2 18 (L) 22 - 32 mmol/L Anion gap 10 2 - 15 mmol/L BUN 8 8 - 25 mg/dL Creatinine 0.62 (L) 0.80 - 1.30 mg/dL Glucose 101 70 - 199 mg/dL Calcium 8.5 8.5 - 10.3 mg/dL Bilirubin, total 0.7 0.1 - 1.2 mg/dL Protein, pl 6.3 (L) 6.5 - 8.5 g/dL Albumin 2.3 (L) 3.5 - 5.0 g/dL Alk phos 80 40 - 130 Units/L ALT 58 (H) 7 - 55 Units/L AST 60 (H) 10 - 50 Units/L Differential, auto Collection Time: 04/01/21 9:32 PM Result Value Ref Range Neutrophil abs 13.0 (H) 1.7 - 6.5 K/cumm Imm gran abs 1.1 (H) 0.0 - 0.1 K/cumm Lymphocyte abs 1.8 0.8 - 3.3 K/cumm Monocyte abs 0.9 (H) 0.2 - 0.8 K/cumm Eosinophil abs 0.2 0.0 - 0.5 K/cumm Basophil abs 0.1 0.0 - 0.1 K/cumm Neutrophil pct 76.2 % Imm gran pct 6.6 % Lymphocyte pct 10.5 % Monocyte pct 5.4 % Eosinophil pct 0.9 % Basophil pct 0.4 % I have reviewed the laboratory results. Imaging Results: IR Fluid Aspiration Narrative: EXAMINATION: L5-S1 fluid collection aspiration under CT guidance HISTORY: Paraplegia with L5-S1 abscess versus neurogenic spine. ATTENDING PRESENCE: Dr. Rhett Gomez M.D., the attending radiologist, was present from the beginning to the end of the procedure. SEDATION: The patient did not require conscious sedation for the procedure. TECHNIQUE: The risks, benefits and alternatives were discussed and informed consent was obtained. Prior to beginning the procedure, [place] Protocol was performed to confirm the patient's [...] CT guidance. 5 mL cloudy roldan fluid aspirated and sent for cell count, Gram stain, and culture. Electronically signed by: Rhett Gomez M.D. XR Chest 1 View Narrative: EXAMINATION: 1 view chest radiograph Impression: Comparison is made to chest radiograph dated 03/29/2021. Left upper extremity peripherally inserted central catheter tip overlies the superior vena cava. No pulmonary consolidation, pleural effusion, or pneumothorax. Normal cardiomediastinal silhouette. Electronically signed by: Kiana Salomon M.D. Assessment/Plan Charcot's arthropathy of intervertebral joint Assessment & Plan CT a/p performed OSH with BL perinephric [...] region biopsied before that was not cancer .CT a/p over-read here: Large destructive process centered at [...] the sacrum. Fluid collection likely not infection, mostlikely inflammatory, ?charcot joint. No evidence of discitis/OM [...] them now that aspirate growing E coli. Complicated UTI (urinary tract infection) Assessment & Plan Pt admitted w/ sepsis, now stabilized w/ IVF, abx. UA with 3+ LE, 2+ blood. CRP 177, ESR 64. MRSA swab negative, and covid negative. Ur cx grewg >100k mixed mallory. CT a/p performed at OSH with BL perinephric fat, unchanged stones in urinary bladder and urethra. 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 Per Urology c/s: unclear if stoma arises from a samira-bladder vs regular vs augmented bladder. - Per Urology, rec 14 dominican lynch and tape to abdomen (no balloon). Can resume q2-3hr caths as home. Can follow up with home urologist for stones in bladder - pt may have failed cipro, ctx, zosyn at OSH with persistent fevers (last fever 03/31); now on vanc/kaykay - ID following Diarrhea Assessment & Plan Non-bloody, no new abdominal pain, on abx as noted elsewhere. C diff neg. - Monitor Tachypnea Assessment & Plan D-dimer elevated to 3800s in the setting [...] tachypnea drastically changes. Wells score of 3 Hyponatremia Assessment & Plan No symptoms. unclear etiology, ?possible volume overload. Urine osm 388, urine Na 70, ser osm 276 c/w hypotonic hyponatremia. On RA, urinating well. Not grossly volume overloaded. BNP mildly elevated. CXR with mild CM. - Monitor. Hold IVFs Elevated bilirubin Assessment & Plan Isolated elevated bilirubin to 2.4 on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 Assessment & Plan Note - Fara Pisano MD - 04/11/2021 11:07 AM CDTAssociated Problem(s): Paraplegia (HCC) No sensation/motor function from nipples down - pain control with norco, fentanyl patch - c/w and adjust bowel regimen * Assessment & Plan Note - Fara Pisano MD - 04/11/2021 11:06 AM CDTAssociated Problem(s): Complicated UTI (urinary tract infection) Pt admitted w/ sepsis, now stabilized w/ IVF, abx. UA with 3+ LE, 2+ blood. CRP 177, ESR 64. MRSA swab negative, and covid negative. Ur cx grewg >100k mixed mallory. CT a/p performed at OSH with BL perinephric fat, unchanged stones in urinary bladder and urethra. 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 Per Urology, unclear if stoma arises from a samira-bladder vs regular vs augmented bladder. - Per Urology, rec 14 dominican lynch and tape to abdomen (no balloon). Can resume q2-3hr caths outpatient. - Stone removal is elective per Urology and can be addressed after this hospital stay and after resolution of acute medical issues. Patient had an appointment with an OSH urologist for this which hisfamily will reschedule. - pt may have failed cipro, ctx, zosyn at OSH with persistent fevers (last fever 04/03); switched tovanc/kaykay on 03/28. Switched to CTX 04/07 per ID recs. 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 MRI total spine 03/30 with destruction at the lumbosacral junction with disorganized bone fragments and a fluid collection in the calf between the small residual components of the L5 vertebral body in the remainder of the sacrum. No evidence of discitis/OM in cervical,thoracic, or lumbar spine from L1 through L4. Large disc protrusion at C5-C6 causing moderate canalstenosis. Changes of spinal cord injury in the [...] in the setting of positive fluid culture on04/02. Per note left on 04/07, this is still the case as they feel surgical management is very highlyunlikely to clear his infection and could exacerbate his status. Per IR, drain is also not a good option as fluid collection would not likely drain effectively. - Leukocytosis improved from 17 on 04/09 down to 11 today, no new source of infection with work-up * Subjective & Objective - Fara Pisano MD - 04/11/2021 11:04 AM CDT Daily Progress Note Division of Hospital Medicine Name: Shawn Casey Jr. Today: April 11, 2021 : 1985 Age: 35 y.o. male Admit: 03/28/2021 Bed: [id number] Subjective Interval History: No new complaints, no acute issue. Afebrile, On IV Ceftriaxone, WBC improving - 11 Objective Medications: Scheduled: carvediloL, 3.125 mg, oral, BID with meals (bkfst, dinner) cefTRIAXone, 2,000 mg, intravenous, Q24H MARYANN enoxaparin, 40 mg, subcutaneous, Q12H MARYANN fentaNYL, 1 patch, transdermal, Q72H ferrous sulfate, 65 mg of elemental iron, oral, BID with meals (bkfst, lunch) gabapentin, 300 mg, oral, Nightly linaCLOtide, 145 mcg, oral, Daily pantoprazole DR, 40 mg, oral, BID AC (bkfst, dinner) potassium chloride ER, 40 mEq, oral, Daily senna-docusate, 1 tablet, oral, BID sucralfate, 1 g, oral, TID AC Infusions: PRN: ??? acetaminophen ??? calcium carbonate ??? cyclobenzaprine ??? heparin flush (porcine) ??? HYDROcodone-acetaminophen ??? loperamide ??? nitroglycerin ??? ondansetron ODT OR ondansetron ??? polyethylene glycol Vitals: 24hr Min/Max: Temp Min: 36.4 ??C (97.5 ??F) Max: 37.3 ??C (99.1 ??F) Pulse Min: 87 Max: 104 BP Min: 113/62 Max: 134/73 Resp Min: 18 Max: 18 SpO2 Min: 96 % Max: 100 % Most Recent: Vitals: 04/11/21 0935 BP: 116/63 Pulse: 89 Resp: 18 Temp: 36.9 ??C (98.4 ??F) SpO2: 97% Intake/Output Summary (Last 24 hours) at 04/11/2021 1104 Last data filed at 04/10/20212023 Gross per 24 hour Intake 300 ml Output 1100 ml Net -800 ml Physical Exam General: NAD. Obese HEENT: PERRLA, EOMI, MMM Neck: Supple Respi: CTAB, no wheezes/crackles/rhonchi CVS: S1S2, no M/R/G, no edema GI: not distended, normal BS, soft, non tender, suprapubic catheter in place MSK: bilateral BKA Neuro: Nonfocal Skin: Warm and dry Lab/Diagnostic Review: Recent Results (from the past 36 hour(s)) CBC with auto differential Collection Time: 04/10/21 8:21 PM Result Value Ref Range WBC 11.0 (H) 3.8 - 9.9 K/cumm Hgb 8.9 (L) 13.0 - 17.5 g/dL Hct 27.7 (L) 38.9 - 50.3 % Plt 365 150 - 400 K/cumm MPV 10.6 9.1 - 12.3 fL RBC 3.27 (L) 4.30 - 5.80 M/cumm MCV 84.7 81.3 - 96.4 fL MCH 27.2 27.1 - 33.3 pg MCHC 32.1 (L) 32.3 - 35.7 g/dL RDW CV 15.6 (H) 11.1 - 14.9 % RDW SD 48.1 35.7 - 48.1 fL NRBC abs 0.00 0.00 - 0.01 K/cumm Erythrocyte sedimentation rate Collection Time: 04/10/21 8:21 PM Result Value Ref Range Erythrocyte sedimentation rate 98 (H) 1 - 15 mm/hr CRP (acute phase) Collection Time: 04/10/21 8:21 PM Result Value Ref Range CRP 162.1 (H) <=10.0 mg/L Differential, auto Collection Time: 04/10/21 8:21 PM Result Value Ref Range Neutrophil abs 8.4 (H) 1.7 - 6.5 K/cumm Imm gran abs 0.1 0.0 - 0.1 K/cumm Lymphocyte abs 1.6 0.8 - 3.3 K/cumm Monocyte abs 0.7 0.2 - 0.8 K/cumm Eosinophil abs 0.1 0.0 - 0.5 K/cumm Basophil abs 0.0 0.0 - 0.1 K/cumm Neutrophil pct 76.6 % Imm gran pct 1.1 % Lymphocyte pct 14.2 % Monocyte pct 6.7 % Eosinophil pct 1.0 % Basophil pct 0.4 % I have reviewed the laboratory results. Imaging Results: XR Chest 1 View Narrative: EXAMINATION: 1 view chest radiograph Impression: Comparison is made to prior examination from 03/10/2021. No consolidation, effusion, or pneumothorax. Stable heart size. * Plan of Care - [place] RN - 04/11/2021 2:17 AM CDT Goals: Clinical Goals for the Shift: wound care and hydration Summary: Problem: Health Behavior: Goal: Understanding of [...] to fullest extent possible Outcome: Progressing Problem: Safety: Goal: Will remain free from falls Outcome: Progressing Goal: Will remain free from injury from falls Outcome: Progressing Goal: Will remain free from falls and injury in home environment Outcome: Progressing Problem: Lack of Knowledge: Goal: Ability to state ways to decrease the risk of falls will improve Outcome: Progressing * Plan of Care - Olga Lidia Huston MSW - 04/10/2021 1:40 PM CDT Problem: Ensure acute medical needs are met and that patient has a safe discharge plan. Goal: Secure a facility that patient/family are agreeable with and ensure patient has continuum of care upon discharge. Social work spoke with patient and he would like for his mother to be able to tour [facility]. He would also like a referral to be sent to [facility] in [place], as he has a friend who works there. Referral sent. Social work called patient's mother Veronica ([phone]) to provide her with facility contact information to schedule a tour. Social work confirmed with Luzmaria at [facility] that they are allowing tours again. Anticipated discharge for tomorrow. Olga Lidia Huston LMSW #[phone] _ For emergency needs from 4:31p.m. - 7:59a.m., please call the ED Wood Setter . For weekend needs from 8:00a.m. - 4:30p.m., please call the Weekend Social Work Staff . * Plan of Care - Guerda Davenport RN - 04/10/2021 11:34 AM CDT Goals: Clinical Goals for the Shift: wound care and hydration Summary: Problem: Health Behavior: Goal: Understanding of [...] injury in home environment Outcome: Progressing Problem: Wound Care Goal: Area will decrease in size .2x.2 cm per week Description: INTERVENTIONS: 1. Encourage 100% intake of meals and snacks for nutritional support 2. Offer and encourage fluids during and between meals 3. Turn and reposition every 2 hours and as needed 4. Air mattress to bed 5. Weekly body audits 6. Obtain labs as ordered and report to provider 7. Observe for and document nonverbal signs and symptoms pain: grimacing, restlessness, inability to sit or lie still, crying, grinding teeth 8. Administer pain medication as ordered 9. Observe for and document signs and symptoms of infection: purulent drainage, odor, elevated temp, redness, warmth, pain, and report to provider 10. Perform wound care treatment as ordered Outcome: Progressing Goal: Area will remain free of signs and symoptoms of infection over the next quarter Description: INTERVENTIONS: 1. Encourage 100% intake of meals and snacks for nutritional support 2. Offer and encourage fluids during and between meals 3. Turn and reposition every 2 hours and as needed 4. Air mattress to bed 5. Weekly body audits 6. Obtain labs as ordered and report to provider 7. Observe for and document nonverbal signs and symptoms pain: grimacing, restlessness, inability to sit or lie still, crying, grinding teeth 8. Administer pain medication as ordered 9. Observe for and document signs and symptoms of infection: purulent drainage, odor, elevated temp, redness, warmth, pain, and report to provider 10. Perform wound care treatment as ordered Outcome: Progressing * Assessment & Plan Note - Fara Pisano MD - 04/10/2021 10:46 AM CDTAssociated Problem(s): Discharge planning issues SNF referral * Assessment & Plan Note - Fara Pisano MD - 04/10/2021 10:45 AM CDTAssociated Problem(s): Atypical chest pain (Resolved 04/11/2021) Acute episode of substernal chest pressure on 04/06 in the AM. No evidence of ischemia on EKG. Did not respond to SL NTG. Improved with Tums. Suspect GERD. No recurrence. - Continue PPI, Started Famotidine daily - Tums PRN - another episode of epigastric/substernal discomfort 04/08, changes Protonix and Pepcid to Protonix BID before meals - Monitor * Assessment & Plan Note - Fara Pisano MD - 04/10/2021 10:45 AM CDTAssociated Problem(s): Tachypnea (Resolved 04/11/2021) D-dimer elevated to 3800s in the setting [...] tachypnea drastically changes. Wells score of 3 * Assessment & Plan Note - Fara Pisano MD - 04/10/2021 10:45 AM CDTAssociated Problem(s): Hyponatremia No symptoms. unclear etiology, ?possible volume overload. Urine osm 388, urine Na 70, ser osm 276 c/w hypotonic hyponatremia. On RA, urinating well. Not grossly volume overloaded. BNP mildly elevated. CXR with mild CM. Stable low 130s. - Monitor. * Assessment & Plan Note - Fara Pisano MD - 04/10/2021 10:45 AM CDTAssociated Problem(s): Elevated bilirubin (Resolved 04/10/2021) Isolated elevated bilirubin to 2.4 on admission, now normalized. Possibly 2/2 shock. RUQ ultrasoundwnl. No further work-up indicated. * Assessment & Plan Note - Fara Pisano MD - 04/10/2021 10:43 AM CDTAssociated Problem(s): Anemia Mixed chronic/inflammatory form infection and iron deficiency, iron profile 32/120/18 - Cont. Ferrous sulfate, Transfuse prn < 7 * Assessment & Plan Note - Fara Pisano MD - 04/10/2021 10:42 AM CDTAssociated Problem(s): Pressure injury of skin of buttock Per ACCS consult, wounds overall appear healthy [...] Extra Protective Cream BId and prn. Utilize genet spray and genet wipes to remove EPC to prevent further excoriation. - Left buttock pressure injury/Eschar covered: gently cleanse with genet spray and genet wipes to dissolve Extra Protective Cream, pat dry , Apply a thin layer of Extra Protective cream to cover Eschar, BID and prn soiling. - Pain management as above * Assessment & Plan Note - Fara Pisano MD - 04/10/2021 10:42 AM CDTAssociated Problem(s): Continuous leakage of urine Urology consulted. See above. * Assessment & Plan Note - Fara Pisano MD - 04/10/2021 10:42 AM CDTAssociated Problem(s): HTN (hypertension) On clonidine, hydralazine, coreg, amlodipine, losartan at home. All BP meds held on admission 2/2 sepsis. BP is now relatively controlled on Norvasc, Coreg only (SBP 110-150s). Will not plan to resume Losartan, Hydralazine, Clonidine at this time. - Continue Coreg and dc Norvasc with soft BPs - Monitor BP * Assessment & Plan Note - Fara Pisano MD - 04/10/2021 10:42 AM CDTAssociated Problem(s): Paraplegia (HCC) No sensation/motor function from nipples down - pain control with norco, fentanyl patch - c/w and adjust bowel regimen * Assessment & Plan Note - Fara Pisano MD - 04/10/2021 10:42 AM CDTAssociated Problem(s): Complicated UTI (urinary tract infection) Pt admitted w/ sepsis, now stabilized w/ IVF, abx. UA with 3+ LE, 2+ blood. CRP 177, ESR 64. MRSA swab negative, and covid negative. Ur cx grewg >100k mixed mallory. CT a/p performed at OSH with BL perinephric fat, unchanged stones in urinary bladder and urethra. 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 Per Urology, unclear if stoma arises from a samira-bladder vs regular vs augmented bladder. - Per Urology, rec 14 dominican lynch and tape to abdomen (no balloon). Can resume q2-3hr caths outpatient. - Stone removal is elective per Urology and can be addressed after this hospital stay and after resolution of acute medical issues. Patient had an appointment with an OSH urologist for this which hisfamily will reschedule. - pt may have failed cipro, ctx, zosyn at OSH with persistent fevers (last fever 04/03); switched tovanc/kaykay on 03/28. Switched to CTX 04/07 per ID recs. 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 MRI total spine 03/30 with destruction at the lumbosacral junction with disorganized bone fragments and a fluid collection in the calf between the small residual components of the L5 vertebral body in the remainder of the sacrum. No evidence of discitis/OM in cervical,thoracic, or lumbar spine from L1 through L4. Large disc protrusion at C5-C6 causing moderate canalstenosis. Changes of spinal cord injury in the [...] in the setting of positive fluid culture on04/02. Per note left on 04/07, this is still the case as they feel surgical management is very highlyunlikely to clear his infection and could exacerbate his status. Per IR, drain is also not a good option as fluid collection would not likely drain effectively. - Leukocytosis improved from 17 on 04/09 down to 12, no new source of infection with work-up, monitor * Subjective & Objective - Fara Pisano MD - 04/10/2021 10:38 AM CDT Daily Progress Note Division of Hospital Medicine Name: Shawn Casey Jr. Today: April 10, 2021 : 1985 Age: 35 y.o. male Admit: 03/28/2021 Bed: [id number] Subjective Interval History: Loose stools - C. Diff negative. Afebrile, WBC 12, On IV Ceftriaxone Objective Medications: Scheduled: carvediloL, 3.125 mg, oral, BID with meals (bkfst, dinner) cefTRIAXone, 2,000 mg, intravenous, Q24H MARYANN enoxaparin, 40 mg, subcutaneous, Q12H MARYANN fentaNYL, 1 patch, transdermal, Q72H ferrous sulfate, 65 mg of elemental iron, oral, BID with meals (bkfst, lunch) gabapentin, 300 mg, oral, Nightly linaCLOtide, 145 mcg, oral, Daily pantoprazole DR, 40 mg, oral, BID AC (bkfst, dinner) potassium chloride ER, 40 mEq, oral, Daily senna-docusate, 1 tablet, oral, BID sodium chloride 0.9%, 1,000 mL, intravenous, Once sucralfate, 1 g, oral, TID AC Infusions: PRN: ??? acetaminophen ??? calcium carbonate ??? cyclobenzaprine ??? heparin flush (porcine) ??? HYDROcodone-acetaminophen ??? loperamide ??? nitroglycerin ??? ondansetron ODT OR ondansetron ??? polyethylene glycol Vitals: 24hr Min/Max: Temp Min: 36.4 ??C (97.5 ??F) Max: 37.2 ??C (99 ??F) Pulse Min: 51 Max: 98 BP Min: 93/59 Max: 116/60 Resp Min: 18 Max: 20 SpO2 Min: 97 % Max: 99 % Most Recent: Vitals: 04/10/21 0841 BP: 116/60 Pulse: 93 Resp: 18 Temp: 36.7 ??C (98.1 ??F) SpO2: 97% Intake/Output Summary (Last 24 hours) at 04/10/2021 1038 Last data filed at 04/10/2021 0630 Gross per 24 hour Intake 900 ml Output 1250 ml Net -350 ml Physical Exam General: NAD. Obese HEENT: PERRLA, EOMI, MMM Neck: Supple Respi: CTAB, no wheezes/crackles/rhonchi CVS: S1S2, no M/R/G, no edema GI: not distended, normal BS, soft, non tender, stoma present on hypogastric area with bag in placecontaining clear urine MSK: bilateral BKA Neuro: Nonfocal Skin: Warm and dry Lab/Diagnostic Review: Recent Results (from the past 36 hour(s)) Erythrocyte sedimentation rate Collection Time: 04/09/21 9:11 AM Result Value Ref Range Erythrocyte sedimentation rate 106 (H) 1 - 15 mm/hr Blood culture Blood Peripheral inserted central cath Collection Time: 04/09/21 9:11 AM Specimen: Peripheral inserted central cath; Blood Result Value Ref Range Report Preliminary Report: No growth to date. Blood culture Blood Hand, right Collection Time: 04/09/21 9:11 AM Specimen: Hand, right; Blood Result Value Ref Range Report Preliminary Report: No growth to date. Urinalysis reflex to microscopic and culture Urine, bladder Collection Time: 04/09/21 11:00 AM Specimen: Urine, bladder Result Value Ref Range Color, ur Yellow Yellow Clarity, ur Cloudy (A) Clear Specific gravity, ur 1.011 1.010 - 1.025 pH, urine 7 Protein, ur ql 1+ (A) Negative Glucose, ur ql Negative Negative Ketones, ur Negative Negative Bilirubin, ur Negative Negative Blood, ur 1+ (A) Negative Urobilinogen, ur <2.0 <2.0 mg/dL Nitrite, ur Negative Negative Leukocyte esterase, ur 3+ (A) Negative UA reflex comment Reflex to microscopic UA will be performed. Urinalysis, microscopic only Collection Time: 04/09/21 11:00 AM Result Value Ref Range WBC, ur 21-50 (A) 0 - 5 /HPF RBC, ur 3-5 (A) 0 - 2 /HPF Epithelial cells, squamous, ur 1-5 0 - 5 /HPF Bacteria, ur Trace (A) Mucous, ur Present (A) Culture Reflex Comment Reflex to urine culture will be performed. Urine culture Urine, bladder Collection Time: 04/09/21 11:00 AM Specimen: Urine, bladder Result Value Ref Range Report Preliminary Report: No growth to date. C. difficile testing Stool Collection Time: 04/09/21 5:30 PM Specimen: Stool Result Value Ref Range C. diff result Negative, free toxin Negative, free toxin C. diff interp Negative for toxigenic Clostridioides (Clostridium) difficile. Analysis was performed using an enzyme immunoassay that detects C. difficile toxin(s) in feces. CBC with auto differential Collection Time: 04/09/21 9:09 PM Result Value Ref Range WBC 12.2 (H) 3.8 - 9.9 K/cumm Hgb 8.8 (L) 13.0 - 17.5 g/dL Hct 27.8 (L) 38.9 - 50.3 % Plt 387 150 - 400 K/cumm MPV 11.2 9.1 - 12.3 fL RBC 3.23 (L) 4.30 - 5.80 M/cumm MCV 86.1 81.3 - 96.4 fL MCH 27.2 27.1 - 33.3 pg MCHC 31.7 (L) 32.3 - 35.7 g/dL RDW CV 15.7 (H) 11.1 - 14.9 % RDW SD 49.3 (H) 35.7 - 48.1 fL NRBC abs 0.00 0.00 - 0.01 K/cumm Comprehensive metabolic panel Collection Time: 04/09/21 9:09 PM Result Value Ref Range Sodium 132 (L) 135 - 145 mmol/L Potassium, pl 4.6 3.3 - 4.9 mmol/L Chloride 100 97 - 110 mmol/L CO2 22 22 - 32 mmol/L Anion gap 10 2 - 15 mmol/L BUN 7 (L) 8 - 25 mg/dL Creatinine 0.59 (L) 0.80 - 1.30 mg/dL Glucose 99 70 - 199 mg/dL Calcium 8.2 (L) 8.5 - 10.3 mg/dL Bilirubin, total 0.4 0.1 - 1.2 mg/dL Protein, pl 6.7 6.5 - 8.5 g/dL Albumin 2.4 (L) 3.5 - 5.0 g/dL Alk phos 88 40 - 130 Units/L ALT 40 7 - 55 Units/L AST 49 10 - 50 Units/L Differential, auto Collection Time: 04/09/21 9:09 PM Result Value Ref Range Neutrophil abs 9.6 (H) 1.7 - 6.5 K/cumm Imm gran abs 0.1 0.0 - 0.1 K/cumm Lymphocyte abs 1.7 0.8 - 3.3 K/cumm Monocyte abs 0.6 0.2 - 0.8 K/cumm Eosinophil abs 0.1 0.0 - 0.5 K/cumm Basophil abs 0.0 0.0 - 0.1 K/cumm Neutrophil pct 78.9 % Imm gran pct 1.1 % Lymphocyte pct 14.1 % Monocyte pct 5.1 % Eosinophil pct 0.6 % Basophil pct 0.2 % I have reviewed the laboratory results. Imaging Results: XR Chest 1 View Narrative: EXAMINATION: 1 view chest radiograph Impression: Comparison is made to prior examination from 03/10/2021. No consolidation, effusion, or pneumothorax. Stable heart size. * Plan of Care - [place] RN - 04/09/2021 11:19 PM CDT Goals: Clinical Goals for the Shift: Wound care and watch for signs of severe acid reflux Summary: Problem: Health Behavior: Goal: Understanding of [...] and output will improve Outcome: Progressing Problem: Lack of Knowledge: Goal: Ability to state ways to decrease the risk of falls will improve Outcome: Progressing Problem: Safety: Goal: Will remain free from falls Outcome: Progressing Goal: Will remain free from injury from falls Outcome: Progressing Goal: Will remain free from falls and injury in home environment Outcome: Progressing * Plan of Care - Olga Lidia Huston MSW - 04/09/2021 2:43 PM CDT Problem: Ensure acute medical needs are met and that patient has a safe discharge plan. Goal: Secure a facility that patient/family are agreeable with and ensure patient has continuum of care upon discharge. Patient has been accepted to [facility]. Patient has been declined by [facility], [facility] and [facility]. Social work spoke with patient about [facility] accepting him. He stated that he needed to look them up online before making a decision. Patient has also been accepted to return to his previous facility, [facility]. Social work will follow up with patient to see if he would prefer [facility] or [facility] at discharge. Social work will continue to assist. Olga Lidia Huston COOLER TENDER #[phone] * Assessment & Plan Note - Fara Pisano MD - 04/09/2021 1:14 PM CDTAssociated Problem(s): Atypical chest pain (Resolved 04/11/2021) Acute episode of substernal chest pressure on 04/06 in the AM. No evidence of ischemia on EKG. Did not respond to SL NTG. Improved with Tums. Suspect GERD. No recurrence. - Continue PPI, Started Famotidine daily - Tums PRN - another episode of epigastric/substernal discomfort 04/08, changes Protonix and Pepcid to Protonix BID before meals - Monitor * Assessment & Plan Note - Fara Pisano MD - 04/09/2021 1:14 PM CDTAssociated Problem(s): Tachypnea (Resolved 04/11/2021) D-dimer elevated to 3800s in the setting [...] tachypnea drastically changes. Wells score of 3 * Assessment & Plan Note - Fara Pisano MD - 04/09/2021 1:14 PM CDTAssociated Problem(s): Hyponatremia No symptoms. unclear etiology, ?possible volume overload. Urine osm 388, urine Na 70, ser osm 276 c/w hypotonic hyponatremia. On RA, urinating well. Not grossly volume overloaded. BNP mildly elevated. CXR with mild CM. Stable low 130s. - Monitor. * Assessment & Plan Note - Fara Pisano MD - 04/09/2021 1:14 PM CDTAssociated Problem(s): Elevated bilirubin (Resolved 04/10/2021) Isolated elevated bilirubin to 2.4 on admission, now normalized. Possibly 2/2 shock. RUQ ultrasoundwnl. No further work-up indicated. * Assessment & Plan Note - Fara Pisano MD - 04/09/2021 1:13 PM CDTAssociated Problem(s): Anemia Likely anemia of chronic disease. - Transfuse prn < 7 * Assessment & Plan Note - Fara Pisano MD - 04/09/2021 1:13 PM CDTAssociated Problem(s): Pressure injury of skin of buttock Per ACCS consult, wounds overall appear healthy [...] Extra Protective Cream BId and prn. Utilize genet spray and genet wipes to remove EPC to prevent further excoriation. - Left buttock pressure injury/Eschar covered: gently cleanse with genet spray and genet wipes to dissolve Extra Protective Cream, pat dry , Apply a thin layer of Extra Protective cream to cover Eschar, BID and prn soiling. - Pain management as above * Assessment & Plan Note - Fara Pisano MD - 04/09/2021 1:13 PM CDTAssociated Problem(s): Continuous leakage of urine Urology consulted. See above. * Assessment & Plan Note - Fara Pisano MD - 04/09/2021 1:13 PM CDTAssociated Problem(s): HTN (hypertension) On clonidine, hydralazine, coreg, amlodipine, losartan at home. All BP meds held on admission 2/2 sepsis. BP is now relatively controlled on Norvasc, Coreg only (SBP 110-150s). Will not plan to resume Losartan, Hydralazine, Clonidine at this time. - Continue Norvasc, Coreg. - Monitor BP * Assessment & Plan Note - Fara Pisano MD - 04/09/2021 1:13 PM CDTAssociated Problem(s): Paraplegia (HCC) No sensation/motor function from nipples down - pain control with norco, fentanyl patch - c/w bowel regimen * Assessment & Plan Note - Fara Pisano MD - 04/09/2021 1:12 PM CDTAssociated Problem(s): Complicated UTI (urinary tract infection) Pt admitted w/ sepsis, now stabilized w/ IVF, abx. UA with 3+ LE, 2+ blood. CRP 177, ESR 64. MRSA swab negative, and covid negative. Ur cx grewg >100k mixed mallory. CT a/p performed at OSH with BL perinephric fat, unchanged stones in urinary bladder and urethra. 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 Per Urology, unclear if stoma arises from a samira-bladder vs regular vs augmented bladder. - Per Urology, rec 14 dominican lynch and tape to abdomen (no balloon). Can resume q2-3hr caths outpatient. - Stone removal is elective per Urology and can be addressed after this hospital stay and after resolution of acute medical issues. Patient had an appointment with an OSH urologist for this which hisfamily will reschedule. - pt may have failed cipro, ctx, zosyn at OSH with persistent fevers (last fever 04/03); switched tovanc/kaykay on 03/28. Switched to CTX 04/07 per ID recs. 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 MRI total spine 03/30 with destruction at the lumbosacral junction with disorganized bone fragments and a fluid collection in the calf between the small residual components of the L5 vertebral body in the remainder of the sacrum. No evidence of discitis/OM in cervical,thoracic, or lumbar spine from L1 through L4. Large disc protrusion at C5-C6 causing moderate canalstenosis. Changes of spinal cord injury in the [...] in the setting of positive fluid culture on04/02. Per note left on 04/07, this is still the case as they feel surgical management is very highlyunlikely to clear his infection and could exacerbate his status. Per IR, drain is also not a good option as fluid collection would not likely drain effectively. - Increase leukocytosis - afebrile, CXR negative, send UA and blood cultures, per ID no imaging needed for now but monitor * Subjective & Objective - Fara Pisano MD - 04/09/2021 1:02 PM CDT Daily Progress Note Division of Hospital Medicine Name: Shawn Casey Jr. Today: April 09, 2021 : 1985 Age: 35 y.o. male Admit: 03/28/2021 Bed: [id number] Subjective Interval History: Epigastric pain yesterday afternoon, trop negaiv,e CXR negative, EKG NSR no ischemic changes, given Tums and NTG and resolved. On IV Ceftriaxone for infected lumbosacral fluid collection. NO new complaints Objective Medications: Scheduled: amLODIPine, 10 mg, oral, Daily carvediloL, 3.125 mg, oral, BID with meals (bkfst, dinner) cefTRIAXone, 2,000 mg, intravenous, Q24H MARYANN diphenhydrAMINE, 25 mg, oral, Daily enoxaparin, 40 mg, subcutaneous, Q12H MARYANN famotidine, 20 mg, oral, Daily fentaNYL, 1 patch, transdermal, Q72H ferrous sulfate, 65 mg of elemental iron, oral, Daily with breakfast gabapentin, 300 mg, oral, Nightly linaCLOtide, 145 mcg, oral, Daily pantoprazole DR, 40 mg, oral, Daily polyethylene glycol, 17 g, oral, Daily potassium chloride ER, 20 mEq, oral, Nightly potassium chloride ER, 40 mEq, oral, Daily senna-docusate, 1 tablet, oral, BID sucralfate, 1 g, oral, TID AC Infusions: PRN: ??? acetaminophen ??? calcium carbonate ??? cyclobenzaprine ??? heparin flush (porcine) ??? HYDROcodone-acetaminophen ??? nitroglycerin ??? ondansetron ODT OR ondansetron Vitals: 24hr Min/Max: Temp Min: 36.7 ??C (98.1 ??F) Max: 37.6 ??C (99.6 ??F) Pulse Min: 90 Max: 98 BP Min: 93/59 Max: 138/77 Resp Min: 16 Max: 20 SpO2 Min: 94 % Max: 100 % Most Recent: Vitals: 04/09/21 1221 BP: 93/59 Pulse: 98 Resp: 20 Temp: 37 ??C (98.6 ??F) SpO2: 99% Intake/Output Summary (Last 24 hours) at 04/09/2021 1302 Last data filed at 04/09/2021 0450 Gross per 24 hour Intake 1100 ml Output 300 ml Net 800 ml Physical Exam General: NAD. Obese HEENT: PERRLA, EOMI, MMM Neck: Supple Respi: CTAB, no wheezes/crackles/rhonchi CVS: S1S2, no M/R/G, no edema GI: not distended, normal BS, soft, non tender, stoma present on hypogastric area with bag in placecontaining clear urine MSK: bilateral BKA Neuro: Nonfocal Skin: Warm and dry Lab/Diagnostic Review: Recent Results (from the past 36 hour(s)) POCT glucose Collection Time: 04/08/21 4:58 PM Result Value Ref Range Glucose, POC 96 70 - 199 mg/dL ECG 12 lead Collection Time: 04/08/21 5:12 PM Result Value Ref Range Ventricular Rate EKG/Min 86 BPM Atrial Rate 86 BPM MT-Interval (MSEC) 182 ms QRS-Interval (MSEC) 100 ms QT-Interval (MSEC) 372 ms QTc 445 ms P [place] 25 degrees R [place] 14 degrees T [place] 5 degrees Diagnosis Normal sinus rhythm Nonspecific T wave abnormality Abnormal ECG When compared with ECG of 06-APR-2021 09:07, No significant change was found Confirmed by CARRINGTON GONZALES M.D ([id number]) on 04/09/2021 10:58:38 AM Troponin I high-sensitivity Collection Time: 04/08/21 5:19 PM Result Value Ref Range Trop I hs <4 <=35 ng/L CBC with auto differential Collection Time: 04/08/21 8:51 PM Result Value Ref Range WBC 17.6 (H) 3.8 - 9.9 K/cumm Hgb 9.5 (L) 13.0 - 17.5 g/dL Hct 29.4 (L) 38.9 - 50.3 % Plt 418 (H) 150 - 400 K/cumm MPV 10.6 9.1 - 12.3 fL RBC 3.52 (L) 4.30 - 5.80 M/cumm MCV 83.5 81.3 - 96.4 fL MCH 27.0 (L) 27.1 - 33.3 pg MCHC 32.3 32.3 - 35.7 g/dL RDW CV 15.7 (H) 11.1 - 14.9 % RDW SD 47.9 35.7 - 48.1 fL NRBC abs 0.00 0.00 - 0.01 K/cumm Comprehensive metabolic panel Collection Time: 04/08/21 8:51 PM Result Value Ref Range Sodium 132 (L) 135 - 145 mmol/L Potassium, pl 4.4 3.3 - 4.9 mmol/L Chloride 99 97 - 110 mmol/L CO2 23 22 - 32 mmol/L Anion gap 10 2 - 15 mmol/L BUN 7 (L) 8 - 25 mg/dL Creatinine 0.57 (L) 0.80 - 1.30 mg/dL Glucose 101 70 - 199 mg/dL Calcium 8.8 8.5 - 10.3 mg/dL Bilirubin, total 0.7 0.1 - 1.2 mg/dL Protein, pl 7.3 6.5 - 8.5 g/dL Albumin 2.8 (L) 3.5 - 5.0 g/dL Alk phos 92 40 - 130 Units/L ALT 40 7 - 55 Units/L AST 37 10 - 50 Units/L Differential, auto Collection Time: 04/08/21 8:51 PM Result Value Ref Range Neutrophil abs 15.3 (H) 1.7 - 6.5 K/cumm Imm gran abs 0.2 (H) 0.0 - 0.1 K/cumm Lymphocyte abs 1.2 0.8 - 3.3 K/cumm Monocyte abs 0.8 0.2 - 0.8 K/cumm Eosinophil abs 0.0 0.0 - 0.5 K/cumm Basophil abs 0.0 0.0 - 0.1 K/cumm Neutrophil pct 86.9 % Imm gran pct 1.3 % Lymphocyte pct 7.0 % Monocyte pct 4.4 % Eosinophil pct 0.2 % Basophil pct 0.2 % CRP (acute phase) Collection Time: 04/08/21 8:51 PM Result Value Ref Range CRP 212.2 (H) <=10.0 mg/L Erythrocyte sedimentation rate Collection Time: 04/09/21 9:11 AM Result Value Ref Range Erythrocyte sedimentation rate 106 (H) 1 - 15 mm/hr Urinalysis reflex to microscopic and culture Urine, bladder Collection Time: 04/09/21 11:00 AM Specimen: Urine, bladder Result Value Ref Range Color, ur Yellow Yellow Clarity, ur Cloudy (A) Clear Specific gravity, ur 1.011 1.010 - 1.025 pH, urine 7 Protein, ur ql 1+ (A) Negative Glucose, ur ql Negative Negative Ketones, ur Negative Negative Bilirubin, ur Negative Negative Blood, ur 1+ (A) Negative Urobilinogen, ur <2.0 <2.0 mg/dL Nitrite, ur Negative Negative Leukocyte esterase, ur 3+ (A) Negative UA reflex comment Reflex to microscopic UA will be performed. Urinalysis, microscopic only Collection Time: 04/09/21 11:00 AM Result Value Ref Range WBC, ur 21-50 (A) 0 - 5 /HPF RBC, ur 3-5 (A) 0 - 2 /HPF Epithelial cells, squamous, ur 1-5 0 - 5 /HPF Bacteria, ur Trace (A) Mucous, ur Present (A) Culture Reflex Comment Reflex to urine culture will be performed. I have reviewed the laboratory results. Imaging Results: XR Chest 1 View Narrative: EXAMINATION: 1 view chest radiograph Impression: Comparison is made to prior examination from 03/10/2021. No consolidation, effusion, or pneumothorax. Stable heart size. * Plan of Care - Guerda Davenport RN - 04/09/2021 11:47 AM CDT Goals: Clinical Goals for the Shift: Wound care and watch for signs of severe acid reflux Summary: Problem: Health Behavior: Goal: Understanding of [...] injury in home environment Outcome: Progressing Problem: Wound Care Goal: Area will decrease in size .2x.2 cm per week Description: INTERVENTIONS: 1. Encourage 100% intake of meals and snacks for nutritional support 2. Offer and encourage fluids during and between meals 3. Turn and reposition every 2 hours and as needed 4. Air mattress to bed 5. Weekly body audits 6. Obtain labs as ordered and report to provider 7. Observe for and document nonverbal signs and symptoms pain: grimacing, restlessness, inability to sit or lie still, crying, grinding teeth 8. Administer pain medication as ordered 9. Observe for and document signs and symptoms of infection: purulent drainage, odor, elevated temp, redness, warmth, pain, and report to provider 10. Perform wound care treatment as ordered Outcome: Progressing Goal: Area will remain free of signs and symoptoms of infection over the next quarter Description: INTERVENTIONS: 1. Encourage 100% intake of meals and snacks for nutritional support 2. Offer and encourage fluids during and between meals 3. Turn and reposition every 2 hours and as needed 4. Air mattress to bed 5. Weekly body audits 6. Obtain labs as ordered and report to provider 7. Observe for and document nonverbal signs and symptoms pain: grimacing, restlessness, inability to sit or lie still, crying, grinding teeth 8. Administer pain medication as ordered 9. Observe for and document signs and symptoms of infection: purulent drainage, odor, elevated temp, redness, warmth, pain, and report to provider 10. Perform wound care treatment as ordered Outcome: Progressing * Plan of Care - [place] RN - 04/08/2021 11:16 PM CDT Goals: Clinical Goals for the Shift: Pain management, wound care, monitor vital signs Summary: Problem: Health Behavior: Goal: Understanding of [...] risk of falls will improve Outcome: Progressing * Plan of Care - Santos Norris MD - 04/08/2021 9:28 PM CDT Sign Off Recommendations Diagnosis: 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 Retained Hardware(Yes/No): No Organism(s): E coli Antibiotics Start Date: 03/28/2021 Infectious Disease Team: General 1 Infectious Disease Attending: Dr. Liang. Medication Recommendations: Drug(s): Ceftriaxone 2 grams IV every 24 hours Duration 6 weeks Firm Stop (Yes/No): Yes Anticipated Stop Date (note, the following date does not imply an order to stop on that date): 05/08/2021 Labs/Frequency to be Monitored: CBC once a week and CMP once a week Summary of Consultation: The patient is a 35-year-old man with paraplegia from [facility] with bilateral BKA and neobladder who [...] He was transferred her for further care. Here he had normal vital signs except [...] likely amoxicillin/clavulanate, for additional 6 weeks. Recommend repeat MRI lumbosacral spine W and WO contrast before stopping oral antibiotics (about 3 months after 03/28) to reassess status of fluid collection in order to help further decision making about duration of chronic suppression. This plan was discussed with patient and he agreed with plan of care. Follow Up Plan: fax results to [phone], follow up with Dr. Cochran provider in 2-3 weeks, After discharge additional questions can be directed to the clinic at [phone] and Patient has been educated about the risks and benefits of IV antibiotics (OPAT) Cosigned by Pattie Liang MD PhD at 04/09/2021 11:58 AM CDT * Plan of Care - Olga Lidia Huston MSW - 04/08/2021 3:53 PM CDT Outlier review meeting held today with braxton SW and multiple [facility] staff members, including CM/SW leadership and [facility] physician advisors. Patient's current plan of care and discharge planning discussed. * Plan of Care - Olga Lidia Huston MSW - 04/08/2021 12:26 PM CDT Problem: Ensure acute medical needs are met and that patient has a safe discharge plan. Goal: Secure a facility that patient/family are agreeable with and ensure patient has continuum of care upon discharge. Social work spoke with patient and he is not interested in returning to his previous facility at discharge. He would prefer to be closer to his sister in [facility]. Social work sent referrals to multiple facilities in [place]. Waiting on final ID recommendations and then patient would be stable for discharge. Social work will continue to assist. 1530: Social work received notification from Luzmaria at [facility] that they are able to accept patient pending final ID recommendations. Other facilities are still reviewing patient's information. Olga Lidia Huston, COOLER TENDER #[phone] _ For emergency needs from 4:31p.m. - 7:59a.m., please call the ED Wood Setter . For weekend needs from 8:00a.m. - 4:30p.m., please call the Weekend Social Work Staff . * Plan of Care - Guerda Davenport RN - 04/08/2021 11:42 AM CDT Goals: Clinical Goals for the Shift: Pain management, wound care, monitor vital signs Summary: Problem: Health Behavior: Goal: Understanding of [...] injury in home environment Outcome: Progressing Problem: Wound Care Goal: Area will decrease in size .2x.2 cm per week Description: INTERVENTIONS: 1. Encourage 100% intake of meals and snacks for nutritional support 2. Offer and encourage fluids during and between meals 3. Turn and reposition every 2 hours and as needed 4. Air mattress to bed 5. Weekly body audits 6. Obtain labs as ordered and report to provider 7. Observe for and document nonverbal signs and symptoms pain: grimacing, restlessness, inability to sit or lie still, crying, grinding teeth 8. Administer pain medication as ordered 9. Observe for and document signs and symptoms of infection: purulent drainage, odor, elevated temp, redness, warmth, pain, and report to provider 10. Perform wound care treatment as ordered Outcome: Progressing Goal: Area will remain free of signs and symoptoms of infection over the next quarter Description: INTERVENTIONS: 1. Encourage 100% intake of meals and snacks for nutritional support 2. Offer and encourage fluids during and between meals 3. Turn and reposition every 2 hours and as needed 4. Air mattress to bed 5. Weekly body audits 6. Obtain labs as ordered and report to provider 7. Observe for and document nonverbal signs and symptoms pain: grimacing, restlessness, inability to sit or lie still, crying, grinding teeth 8. Administer pain medication as ordered 9. Observe for and document signs and symptoms of infection: purulent drainage, odor, elevated temp, redness, warmth, pain, and report to provider 10. Perform wound care treatment as ordered Outcome: Progressing * Assessment & Plan Note - Fara Pisano MD - 04/08/2021 11:28 AM CDTAssociated Problem(s): Atypical chest pain (Resolved 04/11/2021) Acute episode of substernal chest pressure on 04/06 in the AM. No evidence of ischemia on EKG. Did not respond to SL NTG. Improved with Tums. Suspect GERD. No recurrence. - Continue PPI - Started Famotidine daily - Tums PRN - Monitor * Assessment & Plan Note - Fara Pisano MD - 04/08/2021 11:28 AM CDTAssociated Problem(s): Tachypnea (Resolved 04/11/2021) D-dimer elevated to 3800s in the setting [...] tachypnea drastically changes. Wells score of 3 * Assessment & Plan Note - Fara Pisano MD - 04/08/2021 11:28 AM CDTAssociated Problem(s): Hyponatremia No symptoms. unclear etiology, ?possible volume overload. Urine osm 388, urine Na 70, ser osm 276 c/w hypotonic hyponatremia. On RA, urinating well. Not grossly volume overloaded. BNP mildly elevated. CXR with mild CM. Stable low 130s. - Monitor. * Assessment & Plan Note - Fara Pisano MD - 04/08/2021 11:28 AM CDTAssociated Problem(s): Elevated bilirubin (Resolved 04/10/2021) Isolated elevated bilirubin to 2.4 on admission, now normalized. Possibly 2/2 shock. RUQ ultrasoundwnl. No further work-up indicated. * Assessment & Plan Note - Fara Pisano MD - 04/08/2021 11:27 AM CDTAssociated Problem(s): Anemia Likely anemia of chronic disease. - Transfuse prn < 7 * Assessment & Plan Note - Fara Pisano MD - 04/08/2021 11:27 AM CDTAssociated Problem(s): Pressure injury of skin of buttock Per ACCS consult, wounds overall appear healthy [...] Extra Protective Cream BId and prn. Utilize genet spray and genet wipes to remove EPC to prevent further excoriation. - Left buttock pressure injury/Eschar covered: gently cleanse with genet spray and genet wipes to dissolve Extra Protective Cream, pat dry , Apply a thin layer of Extra Protective cream to cover Eschar, BID and prn soiling. - Pain management as above * Assessment & Plan Note - Fara Pisano MD - 04/08/2021 11:27 AM CDTAssociated Problem(s): Continuous leakage of urine Urology consulted. See above. * Assessment & Plan Note - Fara Pisano MD - 04/08/2021 11:27 AM CDTAssociated Problem(s): HTN (hypertension) On clonidine, hydralazine, coreg, amlodipine, losartan at home. All BP meds held on admission 2/2 sepsis. BP is now relatively controlled on Norvasc, Coreg only (SBP 110-150s). Will not plan to resume Losartan, Hydralazine, Clonidine at this time. - Continue Norvasc, Coreg. Can titrate Coreg if needs further BP control. * Assessment & Plan Note - Fara Pisano MD - 04/08/2021 11:27 AM CDTAssociated Problem(s): Paraplegia (HCC) No sensation/motor function from nipples down - pain control with norco, fentanyl - c/w bowel regimen * Assessment & Plan Note - Fara Pisano MD - 04/08/2021 11:26 AM CDTAssociated Problem(s): Complicated UTI (urinary tract infection) Pt admitted w/ sepsis, now stabilized w/ IVF, abx. UA with 3+ LE, 2+ blood. CRP 177, ESR 64. MRSA swab negative, and covid negative. Ur cx grewg >100k mixed mallory. CT a/p performed at OSH with BL perinephric fat, unchanged stones in urinary bladder and urethra. 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 Per Urology, unclear if stoma arises from a samira-bladder vs regular vs augmented bladder. - Per Urology, rec 14 dominican lynch and tape to abdomen (no balloon). Can resume q2-3hr caths outpatient. - Stone removal is elective per Urology and can be addressed after this hospital stay and after resolution of acute medical issues. Patient had an appointment with an OSH urologist for this which hisfamily will reschedule. - pt may have failed cipro, ctx, zosyn at OSH with persistent fevers (last fever 04/03); switched tovanc/kaykay on 03/28. Switched to CTX 04/07 per ID recs. 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 MRI total spine 03/30 with destruction at the lumbosacral junction with disorganized bone fragments and a fluid collection in the calf between the small residual components of the L5 vertebral body in the remainder of the sacrum. No evidence of discitis/OM in cervical,thoracic, or lumbar spine from L1 through L4. Large disc protrusion at C5-C6 causing moderate canalstenosis. Changes of spinal cord injury in the [...] in the setting of positive fluid culture on04/02. Per note left on 04/05, this is still the case as they feel surgical management is very highlyunlikely to clear his infection and could exacerbate his status. Per IR, drain is also not a good option as fluid collection would not likely drain effectively. * Subjective & Objective - Fara Pisano MD - 04/08/2021 11:20 AM CDT Daily Progress Note Division of Hospital Medicine Name: Shawn Casey Jr. Today: April 08, 2021 : 1985 Age: 35 y.o. male Admit: 03/28/2021 Bed: [id number] Subjective Interval History: On IV Ceftriaxone for infected lumbosacral fluid collection. Feels tired, denies SOB Objective Medications: Scheduled: amLODIPine, 10 mg, oral, Daily carvediloL, 3.125 mg, oral, BID with meals (bkfst, dinner) cefTRIAXone, 2,000 mg, intravenous, Q24H MARYANN diphenhydrAMINE, 25 mg, oral, Daily enoxaparin, 40 mg, subcutaneous, Q12H MARYANN famotidine, 20 mg, oral, Daily fentaNYL, 1 patch, transdermal, Q72H ferrous sulfate, 65 mg of elemental iron, oral, Daily with breakfast gabapentin, 300 mg, oral, Nightly linaCLOtide, 145 mcg, oral, Daily pantoprazole DR, 40 mg, oral, Daily polyethylene glycol, 17 g, oral, Daily potassium chloride ER, 20 mEq, oral, Nightly potassium chloride ER, 40 mEq, oral, Daily senna-docusate, 1 tablet, oral, BID sucralfate, 1 g, oral, TID AC Infusions: PRN: ??? acetaminophen ??? calcium carbonate ??? cyclobenzaprine ??? heparin flush (porcine) ??? HYDROcodone-acetaminophen ??? nitroglycerin ??? ondansetron ODT OR ondansetron Vitals: 24hr Min/Max: Temp Min: 36.1 ??C (97 ??F) Max: 37.8 ??C (100 ??F) Pulse Min: 72 Max: 93 BP Min: 98/57 Max: 127/66 Resp Min: 16 Max: 18 SpO2 Min: 96 % Max: 99 % Most Recent: Vitals: 04/08/21 0740 BP: 127/66 Pulse: 93 Resp: 18 Temp: 36.9 ??C (98.4 ??F) SpO2: 99% Intake/Output Summary (Last 24 hours) at 04/08/2021 1120 Last data filed at 04/08/2021 0610 Gross per 24 hour Intake -- Output 200 ml Net -200 ml Physical Exam General: NAD. Obese HEENT: PERRLA, EOMI, MMM Neck: Supple Respi: CTAB, no wheezes/crackles/rhonchi CVS: S1S2, no M/R/G, no edema GI: not distended, normal BS, soft, non tender : stoma present on hypogastric area with bag in place containing clear urine MSK: bilateral BKA Neuro: Nonfocal Skin: Warm and dry Psych: appropriate mood and affect Lab/Diagnostic Review: Recent Results (from the past 36 hour(s)) Blood culture Blood Antecubital, right Collection Time: 04/07/21 12:01 AM Specimen: Antecubital, right; Blood Result Value Ref Range Report Preliminary Report: No growth to date. CBC without differential Collection Time: 04/07/21 9:03 AM Result Value Ref Range WBC 15.9 (H) 3.8 - 9.9 K/cumm Hgb 9.1 (L) 13.0 - 17.5 g/dL Hct 27.7 (L) 38.9 - 50.3 % Plt 430 (H) 150 - 400 K/cumm MPV 11.1 9.1 - 12.3 fL RBC 3.26 (L) 4.30 - 5.80 M/cumm MCV 85.0 81.3 - 96.4 fL MCH 27.9 27.1 - 33.3 pg MCHC 32.9 32.3 - 35.7 g/dL RDW CV 15.8 (H) 11.1 - 14.9 % RDW SD 49.4 (H) 35.7 - 48.1 fL NRBC abs 0.00 0.00 - 0.01 K/cumm Comprehensive metabolic panel Collection Time: 04/07/21 9:03 AM Result Value Ref Range Sodium 131 (L) 135 - 145 mmol/L Potassium, pl 4.0 3.3 - 4.9 mmol/L Chloride 98 97 - 110 mmol/L CO2 24 22 - 32 mmol/L Anion gap 9 2 - 15 mmol/L BUN 7 (L) 8 - 25 mg/dL Creatinine 0.59 (L) 0.80 - 1.30 mg/dL Glucose 89 70 - 199 mg/dL Calcium 8.1 (L) 8.5 - 10.3 mg/dL Bilirubin, total 0.6 0.1 - 1.2 mg/dL Protein, pl 6.6 6.5 - 8.5 g/dL Albumin 2.8 (L) 3.5 - 5.0 g/dL Alk phos 85 40 - 130 Units/L ALT 47 7 - 55 Units/L AST 39 10 - 50 Units/L CBC with auto differential Collection Time: 04/07/21 9:26 PM Result Value Ref Range WBC 13.3 (H) 3.8 - 9.9 K/cumm Hgb 9.2 (L) 13.0 - 17.5 g/dL Hct 28.7 (L) 38.9 - 50.3 % Plt 410 (H) 150 - 400 K/cumm MPV 10.8 9.1 - 12.3 fL RBC 3.42 (L) 4.30 - 5.80 M/cumm MCV 83.9 81.3 - 96.4 fL MCH 26.9 (L) 27.1 - 33.3 pg MCHC 32.1 (L) 32.3 - 35.7 g/dL RDW CV 15.7 (H) 11.1 - 14.9 % RDW SD 48.1 35.7 - 48.1 fL NRBC abs 0.00 0.00 - 0.01 K/cumm Comprehensive metabolic panel Collection Time: 04/07/21 9:26 PM Result Value Ref Range Sodium 132 (L) 135 - 145 mmol/L Potassium, pl 4.0 3.3 - 4.9 mmol/L Chloride 102 97 - 110 mmol/L CO2 24 22 - 32 mmol/L Anion gap 6 2 - 15 mmol/L BUN 7 (L) 8 - 25 mg/dL Creatinine 0.58 (L) 0.80 - 1.30 mg/dL Glucose 103 70 - 199 mg/dL Calcium 8.6 8.5 - 10.3 mg/dL Bilirubin, total 0.6 0.1 - 1.2 mg/dL Protein, pl 6.9 6.5 - 8.5 g/dL Albumin 2.6 (L) 3.5 - 5.0 g/dL Alk phos 83 40 - 130 Units/L ALT 40 7 - 55 Units/L AST 29 10 - 50 Units/L Differential, auto Collection Time: 04/07/21 9:26 PM Result Value Ref Range Neutrophil abs 10.3 (H) 1.7 - 6.5 K/cumm Imm gran abs 0.2 (H) 0.0 - 0.1 K/cumm Lymphocyte abs 1.9 0.8 - 3.3 K/cumm Monocyte abs 0.7 0.2 - 0.8 K/cumm Eosinophil abs 0.1 0.0 - 0.5 K/cumm Basophil abs 0.0 0.0 - 0.1 K/cumm Neutrophil pct 77.5 % Imm gran pct 1.7 % Lymphocyte pct 14.2 % Monocyte pct 5.5 % Eosinophil pct 0.8 % Basophil pct 0.3 % I have reviewed the laboratory results. Imaging Results: XR Chest Pa Lateral 2 Views Narrative: EXAMINATION: 2 view chest radiograph Impression: [...] cava. Electronically signed by: Austen Garcia M.D. XR Chest 1 View Narrative: EXAMINATION: 1 view chest radiograph COMPARISON: 03/30/2021 INDICATION: double check PICC position Impression: The tip of the PICC is not well visualized due to underpenetration but appears to project near the midline, likely within the left brachiocephalic vein. Lung volumes are small and there is mild right basilar atelectasis. No pleural effusion or pneumothorax. Heart and mediastinum are unchanged. * Plan of Care - Barbara Daniel RN - 04/08/2021 6:12 AM CDT Goals: Clinical Goals for the Shift: monitor labs, pain mgt, q2hrly turn Summary: Problem: Health Behavior: Goal: Understanding of [...] Progressing * Assessment & Plan Note - Mary Hutchison MD - 04/07/2021 12:21 PM CDT Associated Problem(s): Elevated bilirubin (Resolved 04/10/2021) Isolated elevated bilirubin to 2.4 on admission, now normalized. Possibly 2/2 shock. RUQ ultrasoundwnl. No further work-up indicated. * Assessment & Plan Note - Mary Hutchison MD - 04/07/2021 12:21 PM CDT Associated Problem(s): Anemia Likely anemia of chronic disease. - Transfuse prn < 7 * Assessment & Plan Note - Mary Hutchison MD - 04/07/2021 12:21 PM CDT Associated Problem(s): Atypical chest pain (Resolved 04/11/2021) Acute episode of substernal chest pressure on 04/06 in the AM. No evidence of ischemia on EKG. Did not respond to SL NTG. Improved with Tums. Suspect GERD. No recurrence. - Continue PPI - Started Famotidine daily - Tums PRN - Monitor * Assessment & Plan Note - Mary Hutchison MD - 04/07/2021 12:21 PM CDT Associated Problem(s): Tachypnea (Resolved 04/11/2021) D-dimer elevated to 3800s in the setting [...] tachypnea drastically changes. Wells score of 3 * Assessment & Plan Note - Mary Hutchison MD - 04/07/2021 12:20 PM CDT Associated Problem(s): Hyponatremia No symptoms. unclear etiology, ?possible volume overload. Urine osm 388, urine Na 70, ser osm 276 c/w hypotonic hyponatremia. On RA, urinating well. Not grossly volume overloaded. BNP mildly elevated. CXR with mild CM. Stable low 130s. - Monitor. * Assessment & Plan Note - Mary Hutchison MD - 04/07/2021 12:17 PM CDT Associated Problem(s): Pressure injury of skin of buttock Per ACCS consult, wounds overall appear healthy [...] Extra Protective Cream BId and prn. Utilize genet spray and genet wipes to remove EPC to prevent further excoriation. - Left buttock pressure injury/Eschar covered: gently cleanse with genet spray and genet wipes to dissolve Extra Protective Cream, pat dry , Apply a thin layer of Extra Protective cream to cover Eschar, BID and prn soiling. - Pain management as above * Assessment & Plan Note - Mary Hutchison MD - 04/07/2021 12:16 PM CDT Associated Problem(s): Continuous leakage of urine Urology consulted. See above. * Assessment & Plan Note - Mary Hutchison MD - 04/07/2021 12:12 PM CDT Associated Problem(s): HTN (hypertension) On clonidine, hydralazine, coreg, amlodipine, losartan at home. All BP meds held on admission 2/2 sepsis. BP is now relatively controlled on Norvasc, Coreg only (SBP 110-150s). Will not plan to resume Losartan, Hydralazine, Clonidine at this time. - Continue Norvasc, Coreg. Can titrate Coreg if needs further BP control. * Assessment & Plan Note - Mary Hutchison MD - 04/07/2021 12:11 PM CDT Associated Problem(s): Paraplegia (HCC) No sensation/motor function from nipples down - pain control with norco, fentanyl - c/w bowel regimen * Assessment & Plan Note - Mary Hutchison MD - 04/07/2021 12:03 PM CDT Associated Problem(s): Infected fluid collection without fistula OSH CT A/P over-read here: Large destructive process centered at L5-S1 containing gas soft tissue and fluid density, concern for OM/discitis, transverses spine, possible fistula overlying the sacrum.XR L spine 03/30: Marked destruction and osseous disorganization throughout the inferior lumbosacrumwith involvement of both the anterior and posterior elements, 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 MRI total spine 03/30 with destruction at the lumbosacral junction with disorganized bone fragments and a fluid collection in the calf between the small residual components of the L5 vertebral body in the remainder of the sacrum. No evidence of discitis/OM in cervical,thoracic, or lumbar spine from L1 through L4. Large disc protrusion at C5-C6 causing moderate canalstenosis. Changes of spinal cord injury in the [...] in the setting of positive fluid culture on04/02. Per note left on 04/05, this is still the case as they feel surgical management is very highlyunlikely to clear his infection and could exacerbate his status. Per IR, drain is also not a good option as fluid collection would not likely drain effectively. * Assessment & Plan Note - Mary Hutchison MD - 04/07/2021 11:58 AM CDT Associated Problem(s): Complicated UTI (urinary tract infection) Pt admitted w/ sepsis, now stabilized w/ IVF, abx. UA with 3+ LE, 2+ blood. CRP 177, ESR 64. MRSA swab negative, and covid negative. Ur cx grewg >100k mixed mallory. CT a/p performed at OSH with BL perinephric fat, unchanged stones in urinary bladder and urethra. 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 Per Urology, unclear if stoma arises from a samira-bladder vs regular vs augmented bladder. - Per Urology, rec 14 dominican lynch and tape to abdomen (no balloon). Can resume q2-3hr caths outpatient. - Stone removal is elective per Urology and can be addressed after this hospital stay and after resolution of acute medical issues. Patient had an appointment with an OSH urologist for this which hisfamily will reschedule. - pt may have failed cipro, ctx, zosyn at OSH with persistent fevers (last fever 04/03); switched tovanc/kaykay on 03/28. Will switch to CTX today per ID recs. - ID following * Subjective & Objective - Mary Hutchiosn MD - 04/07/2021 11:54 AM CDT Daily Progress Note Division of Hospital Medicine Name: Shawn Casey Jr. Today: April 07, 2021 : 1985 Age: 35 y.o. male Admit: 03/28/2021 Bed: [place] [id number] Subjective Interval History: No further episodes of substernal pressure since yesterday AM. No new complaints. Objective Medications: Scheduled: amLODIPine, 10 mg, oral, Daily carvediloL, 3.125 mg, oral, BID with meals (bkfst, dinner) cefTRIAXone, 2,000 mg, intravenous, Q24H MARYANN diphenhydrAMINE, 25 mg, oral, Daily enoxaparin, 40 mg, subcutaneous, Q12H MARYANN famotidine, 20 mg, oral, Daily fentaNYL, 1 patch, transdermal, Q72H ferrous sulfate, 65 mg of elemental iron, oral, Daily with breakfast gabapentin, 300 mg, oral, Nightly linaCLOtide, 145 mcg, oral, Daily pantoprazole DR, 40 mg, oral, Daily polyethylene glycol, 17 g, oral, Daily potassium chloride ER, 20 mEq, oral, Nightly potassium chloride ER, 40 mEq, oral, Daily senna-docusate, 1 tablet, oral, BID sucralfate, 1 g, oral, TID AC Infusions: PRN: ??? acetaminophen ??? calcium carbonate ??? cyclobenzaprine ??? heparin flush (porcine) ??? HYDROcodone-acetaminophen ??? nitroglycerin ??? ondansetron ODT OR ondansetron Vitals: 24hr Min/Max: Temp Min: 36.7 ??C (98.1 ??F) Max: 37.1 ??C (98.8 ??F) Pulse Min: 81 Max: 101 BP Min: 116/57 Max: 145/74 Resp Min: 18 Max: 18 SpO2 Min: 97 % Max: 100 % Most Recent: Vitals: 04/07/21 0850 BP: 132/70 Pulse: 92 Resp: 18 Temp: 37.1 ??C (98.8 ??F) SpO2: 97% Intake/Output Summary (Last 24 hours) at 04/07/2021 1154 Last data filed at 04/07/2021 0900 Gross per 24 hour Intake 1340 ml Output 1100 ml Net 240 ml Physical Exam I have reviewed the vitals and nursing notes. Constitutional:?NAD, well developed, well nourished Eyes:?PERRL, EOMI, anicteric ENT:?NCAT, oropharynx normal, moist mucus membranes Lungs:?Clear to auscultation in all lung marrero, unlabored, trachea midline. Mild tachypnea Cardiovascular:?RRR, normal S1 and S2, no murmurs, no JVD GI:?Soft, non- tender, non-distended, bowel sounds +, no organomegaly. Stoma present in abdominal wall?? Skin:?No new rashes, lesions or bruises Extremities:?S/p BKA BL, legs with sequelae of surgeries/grafts.??Normal without edema or cyanosis Lymph:?No cervical, supraclavicular, axillary or inguinal adenopathy Neurologic:?AOx4, CNII-XII intact, normal strength and sensation Psychiatric:?Normal affect and mood :? Urethra meatus ?split open, urine leaking from meatus, no signs of infection. Lab/Diagnostic Review: Recent Results (from the past 36 hour(s)) POCT glucose Collection Time: 04/06/21 8:40 AM Result Value Ref Range Glucose, POC 92 70 - 199 mg/dL Vancomycin level trough Collection Time: 04/06/21 1:04 PM Result Value Ref Range Vancomycin trough 14.6 10.0 - 20.0 mcg/mL CBC without differential Collection Time: 04/07/21 9:03 AM Result Value Ref Range WBC 15.9 (H) 3.8 - 9.9 K/cumm Hgb 9.1 (L) 13.0 - 17.5 g/dL Hct 27.7 (L) 38.9 - 50.3 % Plt 430 (H) 150 - 400 K/cumm MPV 11.1 9.1 - 12.3 fL RBC 3.26 (L) 4.30 - 5.80 M/cumm MCV 85.0 81.3 - 96.4 fL MCH 27.9 27.1 - 33.3 pg MCHC 32.9 32.3 - 35.7 g/dL RDW CV 15.8 (H) 11.1 - 14.9 % RDW SD 49.4 (H) 35.7 - 48.1 fL NRBC abs 0.00 0.00 - 0.01 K/cumm Comprehensive metabolic panel Collection Time: 04/07/21 9:03 AM Result Value Ref Range Sodium 131 (L) 135 - 145 mmol/L Potassium, pl 4.0 3.3 - 4.9 mmol/L Chloride 98 97 - 110 mmol/L CO2 24 22 - 32 mmol/L Anion gap 9 2 - 15 mmol/L BUN 7 (L) 8 - 25 mg/dL Creatinine 0.59 (L) 0.80 - 1.30 mg/dL Glucose 89 70 - 199 mg/dL Calcium 8.1 (L) 8.5 - 10.3 mg/dL Bilirubin, total 0.6 0.1 - 1.2 mg/dL Protein, pl 6.6 6.5 - 8.5 g/dL Albumin 2.8 (L) 3.5 - 5.0 g/dL Alk phos 85 40 - 130 Units/L ALT 47 7 - 55 Units/L AST 39 10 - 50 Units/L I have reviewed the laboratory results. Imaging Results: XR Chest Pa Lateral 2 Views Narrative: EXAMINATION: 2 view chest radiograph Impression: [...] cava. Electronically signed by: Austen Garcia M.D. XR Chest 1 View Narrative: EXAMINATION: 1 view chest radiograph COMPARISON: 03/30/2021 INDICATION: double check PICC position Impression: The tip of the PICC is not well visualized due to underpenetration but appears to project near the midline, likely within the left brachiocephalic vein. Lung volumes are small and there is mild right basilar atelectasis. No pleural effusion or pneumothorax. Heart and mediastinum are unchanged. * Plan of Care - Hortencia Garvin RN - 04/07/2021 10:58 AM CDT Problem: Health Behavior: Goal: Understanding [...] to fullest extent possible Outcome: Progressing Problem: Safety: Goal: Will remain free from falls Outcome: Progressing Goal: Will remain free from injury from falls Outcome: Progressing Goal: Will remain free from falls and injury in home environment Outcome: Progressing Problem: Wound Care Goal: Area will decrease in size .2x.2 cm per week Description: INTERVENTIONS: 1. Encourage 100% intake of meals and snacks for nutritional support 2. Offer and encourage fluids during and between meals 3. Turn and reposition every 2 hours and as needed 4. Air mattress to bed 5. Weekly body audits 6. Obtain labs as ordered and report to provider 7. Observe for and document nonverbal signs and symptoms pain: grimacing, restlessness, inability to sit or lie still, crying, grinding teeth 8. Administer pain medication as ordered 9. Observe for and document signs and symptoms of infection: purulent drainage, odor, elevated temp, redness, warmth, pain, and report to provider 10. Perform wound care treatment as ordered Outcome: Progressing Goal: Area will remain free of signs and symoptoms of infection over the next quarter Description: INTERVENTIONS: 1. Encourage 100% intake of meals and snacks for nutritional support 2. Offer and encourage fluids during and between meals 3. Turn and reposition every 2 hours and as needed 4. Air mattress to bed 5. Weekly body audits 6. Obtain labs as ordered and report to provider 7. Observe for and document nonverbal signs and symptoms pain: grimacing, restlessness, inability to sit or lie still, crying, grinding teeth 8. Administer pain medication as ordered 9. Observe for and document signs and symptoms of infection: purulent drainage, odor, elevated temp, redness, warmth, pain, and report to provider 10. Perform wound care treatment as ordered Outcome: Progressing Goals: Clinical Goals for the Shift: pain management; monitor VS; perform wound care * Plan of Care - Beverly Alvarez RN - 04/07/2021 12:26 AM CDT Goals: Clinical Goals for the Shift: Pain control and PICC line will be fixed today Summary: Problem: Health Behavior: Goal: Understanding of [...] injury in home environment Outcome: Progressing Problem: Wound Care Goal: Area will decrease in size .2x.2 cm per week Description: INTERVENTIONS: 1. Encourage 100% intake of meals and snacks for nutritional support 2. Offer and encourage fluids during and between meals 3. Turn and reposition every 2 hours and as needed 4. Air mattress to bed 5. Weekly body audits 6. Obtain labs as ordered and report to provider 7. Observe for and document nonverbal signs and symptoms pain: grimacing, restlessness, inability to sit or lie still, crying, grinding teeth 8. Administer pain medication as ordered 9. Observe for and document signs and symptoms of infection: purulent drainage, odor, elevated temp, redness, warmth, pain, and report to provider 10. Perform wound care treatment as ordered Outcome: Progressing Goal: Area will remain free of signs and symoptoms of infection over the next quarter Description: INTERVENTIONS: 1. Encourage 100% intake of meals and snacks for nutritional support 2. Offer and encourage fluids during and between meals 3. Turn and reposition every 2 hours and as needed 4. Air mattress to bed 5. Weekly body audits 6. Obtain labs as ordered and report to provider 7. Observe for and document nonverbal signs and symptoms pain: grimacing, restlessness, inability to sit or lie still, crying, grinding teeth 8. Administer pain medication as ordered 9. Observe for and document signs and symptoms of infection: purulent drainage, odor, elevated temp, redness, warmth, pain, and report to provider 10. Perform wound care treatment as ordered Outcome: Progressing * Assessment & Plan Note - Mary Hutchison MD - 04/06/2021 3:09 PM CDT Associated Problem(s): Anemia Likely anemia of chronic disease. - Transfuse prn < 7 * Assessment & Plan Note - Mary Hutchison MD - 04/06/2021 3:09 PM CDT Associated Problem(s): Tachypnea (Resolved 04/11/2021) D-dimer elevated to 3800s in the setting [...] tachypnea drastically changes. Wells score of 3 * Assessment & Plan Note - Mary Hutchison MD - 04/06/2021 3:08 PM CDT Associated Problem(s): Hyponatremia No symptoms. unclear etiology, ?possible volume overload. Urine osm 388, urine Na 70, ser osm 276 c/w hypotonic hyponatremia. On RA, urinating well. Not grossly volume overloaded. BNP mildly elevated. CXR with mild CM. Stable low 130s. - Monitor. * Assessment & Plan Note - Mary Hutchison MD - 04/06/2021 3:02 PM CDT Associated Problem(s): Elevated bilirubin (Resolved 04/10/2021) Isolated elevated bilirubin to 2.4 on admission, now normalized. Possibly 2/2 shock. RUQ ultrasoundwnl. * Assessment & Plan Note - Mary Hutchison MD - 04/06/2021 3:02 PM CDT Associated Problem(s): Pressure injury of skin of buttock Per ACCS consult, wounds overall appear healthy with no obvious necrosis or purulence, no surgical intervention indicated. - wound consult - pain management as above * Assessment & Plan Note - Mary Hutchison MD - 04/06/2021 3:02 PM CDT Associated Problem(s): Continuous leakage of urine - urology consulted. See above * Assessment & Plan Note - Mary Hutchison MD - 04/06/2021 3:02 PM CDT Associated Problem(s): HTN (hypertension) On clonidine, hydralazine, coreg, amlodipine, losartan at home. - BP meds held on admission 2/2 sepsis; still holding Losartan, Hydralazine - Resumed Clonidine, but now DC'd as BP well-controlled without it. - Resumed home Norvasc, Coreg. Can increase Coreg PRN if needs further BP control. * Assessment & Plan Note - Mary Hutchison MD - 04/06/2021 3:01 PM CDT Associated Problem(s): Paraplegia (HCC) No sensation/motor function from nipples down - pain control with norco, fentanyl - c/w bowel regimen * Assessment & Plan Note - Mary Hutchison MD - 04/06/2021 2:57 PM CDT Associated Problem(s): Infected fluid collection without fistula CT a/p performed OSH with BL perinephric [...] region biopsied before that was not cancer .CT a/p over-read here: Large destructive process centered at [...] the sacrum. Fluid collection likely not infection, mostlikely inflammatory, ?charcot joint. No evidence of discitis/OM [...] c/s: biopsy 03/31 with aspirate now growing kim- susceptible E coli. Blood cx NGTD. - Per ID c/s: c/w meropenem + vanc (concern for opening to skin). - Ortho spine initially felt this was not infectious, so no intervention planned. Requested them tore-evaluate in the setting of positive fluid culture on 04/02. Per note left on 04/05, this is still the case as they feel surgical management is very highly unlikely to clear his infection and could exacerbate his status. - Per IR, drain is also not a good option. - Monitor for recurrent fever * Assessment & Plan Note - Mary Hutchison MD - 04/06/2021 2:52 PM CDT Associated Problem(s): Complicated UTI (urinary tract infection) Pt admitted w/ sepsis, now stabilized w/ IVF, abx. UA with 3+ LE, 2+ blood. CRP 177, ESR 64. MRSA swab negative, and covid negative. Ur cx grewg >100k mixed mallory. CT a/p performed at OSH with BL perinephric fat, unchanged stones in urinary bladder and urethra. 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 Per Urology c/s: unclear if stoma arises from a samira-bladder vs regular vs augmented bladder. - Per Urology, rec 14 dominican lynch and tape to abdomen (no balloon). Can resume q2-3hr caths as home. - Stone removal is elective per Urology and can be addressed after this hospital stay and after resolution of acute medical issues. Patient had an appointment with an OSH urologist for this which hisfamily will reschedule. - pt may have failed cipro, ctx, zosyn at OSH with persistent fevers (last fever 04/03); now on vanc/kaykay - ID following * Assessment & Plan Note - Mary Hutchison MD - 04/06/2021 2:51 PM CDT Associated Problem(s): Atypical chest pain (Resolved 04/11/2021) Acute episode of substernal chest pressure on 04/06 in the AM. No evidence of ischemia on EKG. Did not respond to SL NTG. Improved with Tums. Suspect GERD. - Continue PPI - Started Famotidine daily - Tums PRN - Monitor * Subjective & Objective - Mary Hutchison MD - 04/06/2021 2:43 PM CDT Daily Progress Note Division of Hospital Medicine Name: Shawn Casey Jr. Today: April 06, 2021 : 1985 Age: 35 y.o. male Admit: 03/28/2021 Bed: [id number] Subjective Interval History: This AM patient reported not feeling well and then complained of substernal pressure. Denied SOB. Vitals were stable. EKG without evidence of acute ischemic change. Discomfort did not improve with NTG, though he did get transient MCNEIL. Then given Tums with improvement in his sxs. Having issues with his PICC overnight, and unable to draw blood at this time. CXR pending. Objective Medications: Scheduled: amLODIPine, 10 mg, oral, Daily carvediloL, 3.125 mg, oral, BID with meals (bkfst, dinner) diphenhydrAMINE, 25 mg, oral, Daily enoxaparin, 40 mg, subcutaneous, Q12H MARYANN famotidine, 20 mg, oral, Daily fentaNYL, 1 patch, transdermal, Q72H ferrous sulfate, 65 mg of elemental iron, oral, Daily with breakfast gabapentin, 300 mg, oral, Nightly linaCLOtide, 145 mcg, oral, Daily meropenem, 2,000 mg, intravenous, Q8H MARYANN pantoprazole DR, 40 mg, oral, Daily polyethylene glycol, 17 g, oral, Daily potassium chloride ER, 20 mEq, oral, Nightly potassium chloride ER, 40 mEq, oral, Daily senna-docusate, 1 tablet, oral, BID sucralfate, 1 g, oral, TID AC vancomycin, 15 mg/kg, intravenous, Q12H Infusions: PRN: ??? acetaminophen ??? alteplase ??? calcium carbonate ??? cyclobenzaprine ??? heparin flush (porcine) ??? HYDROcodone-acetaminophen ??? nitroglycerin ??? ondansetron ODT OR ondansetron Vitals: 24hr Min/Max: Temp Min: 36.5 ??C (97.7 ??F) Max: 37.6 ??C (99.7 ??F) Pulse Min: 71 Max: 105 BP Min: 108/67 Max: 150/95 Resp Min: 18 Max: 22 SpO2 Min: 95 % Max: 100 % Most Recent: Vitals: 04/06/21 1420 BP: 140/69 Pulse: 81 Resp: 18 Temp: 36.7 ??C (98.1 ??F) SpO2: 99% Intake/Output Summary (Last 24 hours) at 04/06/2021 1444 Last data filed at 04/06/2021 0640 Gross per 24 hour Intake 1125 ml Output 630 ml Net 495 ml Physical Exam Constitutional:?NAD, well developed, well nourished Eyes:?PERRL, EOMI, anicteric ENT:?NCAT, oropharynx normal, moist mucus membranes Lungs:?Clear to auscultation in all lung marrero, unlabored, trachea midline. Mild tachypnea Cardiovascular:?RRR, normal S1 and S2, no murmurs, no JVD GI:?Soft, non- tender, non-distended, bowel sounds +, no organomegaly. Stoma present in abdominal wall?? Skin:?No new rashes, lesions or bruises Extremities:?S/p BKA BL, legs with sequelae of surgeries/grafts.??Normal without edema or cyanosis Lymph:?No cervical, supraclavicular, axillary or inguinal adenopathy Neurologic:?AOx4, CNII-XII intact, normal strength and sensation Psychiatric:?Normal affect and mood :? Urethra meatus ?split open, urine leaking from meatus, no signs of infection. Lab/Diagnostic Review: Recent Results (from the past 36 hour(s)) CBC with auto differential Collection Time: 04/05/21 10:36 PM Result Value Ref Range WBC 13.9 (H) 3.8 - 9.9 K/cumm Hgb 8.6 (L) 13.0 - 17.5 g/dL Hct 26.3 (L) 38.9 - 50.3 % Plt 325 150 - 400 K/cumm MPV 11.6 9.1 - 12.3 fL RBC 3.08 (L) 4.30 - 5.80 M/cumm MCV 85.4 81.3 - 96.4 fL MCH 27.9 27.1 - 33.3 pg MCHC 32.7 32.3 - 35.7 g/dL RDW CV 16.3 (H) 11.1 - 14.9 % RDW SD 51.2 (H) 35.7 - 48.1 fL NRBC abs 0.00 0.00 - 0.01 K/cumm Comprehensive metabolic panel Collection Time: 04/05/21 10:36 PM Result Value Ref Range Sodium 133 (L) 135 - 145 mmol/L Potassium, pl 4.6 3.3 - 4.9 mmol/L Chloride 101 97 - 110 mmol/L CO2 21 (L) 22 - 32 mmol/L Anion gap 11 2 - 15 mmol/L BUN 7 (L) 8 - 25 mg/dL Creatinine 0.57 (L) 0.80 - 1.30 mg/dL Glucose 97 70 - 199 mg/dL Calcium 8.5 8.5 - 10.3 mg/dL Bilirubin, total 0.7 0.1 - 1.2 mg/dL Protein, pl 6.7 6.5 - 8.5 g/dL Albumin 2.4 (L) 3.5 - 5.0 g/dL Alk phos 90 40 - 130 Units/L ALT 63 (H) 7 - 55 Units/L AST 66 (H) 10 - 50 Units/L Differential, auto Collection Time: 04/05/21 10:36 PM Result Value Ref Range Neutrophil abs 10.8 (H) 1.7 - 6.5 K/cumm Imm gran abs 0.5 (H) 0.0 - 0.1 K/cumm Lymphocyte abs 1.9 0.8 - 3.3 K/cumm Monocyte abs 0.5 0.2 - 0.8 K/cumm Eosinophil abs 0.1 0.0 - 0.5 K/cumm Basophil abs 0.1 0.0 - 0.1 K/cumm Neutrophil pct 78.0 % Imm gran pct 3.6 % Lymphocyte pct 13.8 % Monocyte pct 3.7 % Eosinophil pct 0.5 % Basophil pct 0.4 % POCT glucose Collection Time: 04/06/21 8:40 AM Result Value Ref Range Glucose, POC 92 70 - 199 mg/dL I have reviewed the laboratory results. Imaging Results: XR Chest 1 View Narrative: EXAMINATION: 1 view chest radiograph COMPARISON: 03/30/2021 INDICATION: double check PICC position Impression: The tip of the PICC is not well visualized due to underpenetration but appears to project near the midline, likely within the left brachiocephalic vein. Lung volumes are small and there is mild right basilar atelectasis. No pleural effusion or pneumothorax. Heart and mediastinum are unchanged. Electronically signed by: Scott Aleman M.D. I have personally reviewed the EKG, with shows NSR, no evidence of acute ischemia * Plan of Care - Guerda Davenport RN - 04/06/2021 12:17 PM CDT Goals: Clinical Goals for the Shift: Pain control and PICC line will be fixed today Summary: Problem: Health Behavior: Goal: Understanding of [...] injury in home environment Outcome: Progressing Problem: Wound Care Goal: Area will decrease in size .2x.2 cm per week Description: INTERVENTIONS: 1. Encourage 100% intake of meals and snacks for nutritional support 2. Offer and encourage fluids during and between meals 3. Turn and reposition every 2 hours and as needed 4. Air mattress to bed 5. Weekly body audits 6. Obtain labs as ordered and report to provider 7. Observe for and document nonverbal signs and symptoms pain: grimacing, restlessness, inability to sit or lie still, crying, grinding teeth 8. Administer pain medication as ordered 9. Observe for and document signs and symptoms of infection: purulent drainage, odor, elevated temp, redness, warmth, pain, and report to provider 10. Perform wound care treatment as ordered Outcome: Progressing Goal: Area will remain free of signs and symoptoms of infection over the next quarter Description: INTERVENTIONS: 1. Encourage 100% intake of meals and snacks for nutritional support 2. Offer and encourage fluids during and between meals 3. Turn and reposition every 2 hours and as needed 4. Air mattress to bed 5. Weekly body audits 6. Obtain labs as ordered and report to provider 7. Observe for and document nonverbal signs and symptoms pain: grimacing, restlessness, inability to sit or lie still, crying, grinding teeth 8. Administer pain medication as ordered 9. Observe for and document signs and symptoms of infection: purulent drainage, odor, elevated temp, redness, warmth, pain, and report to provider 10. Perform wound care treatment as ordered Outcome: Progressing * Plan of Care - Beverly Alvarez RN - 04/06/2021 12:22 AM CDT Goals: Clinical Goals for the Shift: Administer IV antibiotics, turning and hygiene Summary: Problem: Health Behavior: Goal: Understanding of [...] injury in home environment Outcome: Progressing Problem: Wound Care Goal: Area will decrease in size .2x.2 cm per week Description: INTERVENTIONS: 1. Encourage 100% intake of meals and snacks for nutritional support 2. Offer and encourage fluids during and between meals 3. Turn and reposition every 2 hours and as needed 4. Air mattress to bed 5. Weekly body audits 6. Obtain labs as ordered and report to provider 7. Observe for and document nonverbal signs and symptoms pain: grimacing, restlessness, inability to sit or lie still, crying, grinding teeth 8. Administer pain medication as ordered 9. Observe for and document signs and symptoms of infection: purulent drainage, odor, elevated temp, redness, warmth, pain, and report to provider 10. Perform wound care treatment as ordered Outcome: Progressing Goal: Area will remain free of signs and symoptoms of infection over the next quarter Description: INTERVENTIONS: 1. Encourage 100% intake of meals and snacks for nutritional support 2. Offer and encourage fluids during and between meals 3. Turn and reposition every 2 hours and as needed 4. Air mattress to bed 5. Weekly body audits 6. Obtain labs as ordered and report to provider 7. Observe for and document nonverbal signs and symptoms pain: grimacing, restlessness, inability to sit or lie still, crying, grinding teeth 8. Administer pain medication as ordered 9. Observe for and document signs and symptoms of infection: purulent drainage, odor, elevated temp, redness, warmth, pain, and report to provider 10. Perform wound care treatment as ordered Outcome: Progressing * Plan of Care - Guerda Davenport RN - 04/05/2021 11:36 AM CDT Goals: Clinical Goals for the Shift: Administer IV antibiotics, turning and hygiene Summary: Problem: Health Behavior: Goal: Understanding of [...] injury in home environment Outcome: Progressing Problem: Wound Care Goal: Area will decrease in size .2x.2 cm per week Description: INTERVENTIONS: 1. Encourage 100% intake of meals and snacks for nutritional support 2. Offer and encourage fluids during and between meals 3. Turn and reposition every 2 hours and as needed 4. Air mattress to bed 5. Weekly body audits 6. Obtain labs as ordered and report to provider 7. Observe for and document nonverbal signs and symptoms pain: grimacing, restlessness, inability to sit or lie still, crying, grinding teeth 8. Administer pain medication as ordered 9. Observe for and document signs and symptoms of infection: purulent drainage, odor, elevated temp, redness, warmth, pain, and report to provider 10. Perform wound care treatment as ordered Outcome: Progressing Goal: Area will remain free of signs and symoptoms of infection over the next quarter Description: INTERVENTIONS: 1. Encourage 100% intake of meals and snacks for nutritional support 2. Offer and encourage fluids during and between meals 3. Turn and reposition every 2 hours and as needed 4. Air mattress to bed 5. Weekly body audits 6. Obtain labs as ordered and report to provider 7. Observe for and document nonverbal signs and symptoms pain: grimacing, restlessness, inability to sit or lie still, crying, grinding teeth 8. Administer pain medication as ordered 9. Observe for and document signs and symptoms of infection: purulent drainage, odor, elevated temp, redness, warmth, pain, and report to provider 10. Perform wound care treatment as ordered Outcome: Progressing * Assessment & Plan Note - Mary Hutchison MD - 04/05/2021 10:42 AM CDT Associated Problem(s): Anemia Likely anemia of chronic disease. - Transfuse prn < 7 * Assessment & Plan Note - Mary Hutchison MD - 04/05/2021 10:41 AM CDT Associated Problem(s): Diarrhea (Resolved 04/06/2021) Non-bloody, no new abdominal pain, on abx as noted elsewhere. C diff neg. - Monitor; hold bowel regimen PRN * Assessment & Plan Note - aMry Hutchison MD - 04/05/2021 10:40 AM CDT Associated Problem(s): Tachypnea (Resolved 04/11/2021) D-dimer elevated to 3800s in the setting [...] tachypnea drastically changes. Wells score of 3 * Assessment & Plan Note - Mary Hutchison MD - 04/05/2021 10:40 AM CDT Associated Problem(s): Hyponatremia No symptoms. unclear etiology, ?possible volume overload. Urine osm 388, urine Na 70, ser osm 276 c/w hypotonic hyponatremia. On RA, urinating well. Not grossly volume overloaded. BNP mildly elevated. CXR with mild CM. Stable low 130s. - Monitor. * Assessment & Plan Note - Mary Hutchison MD - 04/05/2021 10:40 AM CDT Associated Problem(s): Elevated bilirubin (Resolved 04/10/2021) Isolated elevated bilirubin to 2.4 on admission, now trending down. Possibly 2/2 shock. RUQ ultrasound wnl. - Monitor bilirubin daily * Assessment & Plan Note - Mary Hutchison MD - 04/05/2021 10:40 AM CDT Associated Problem(s): Pressure injury of skin of buttock Per ACCS consult, wounds overall appear healthy with no obvious necrosis or purulence, no surgical intervention indicated. - wound consult - pain management as above * Assessment & Plan Note - Mary Hutchison MD - 04/05/2021 10:39 AM CDT Associated Problem(s): Continuous leakage of urine - urology consulted. See above * Assessment & Plan Note - Mary Hutchison MD - 04/05/2021 10:37 AM CDT Associated Problem(s): HTN (hypertension) On clonidine, hydralazine, coreg, amlodipine, losartan at home. - BP meds held on admission 2/2 sepsis; still holding Losartan, Hydralazine - Resumed Clonidine, but now DC'd as BP well-controlled without it. - Resumed home Norvasc, Coreg. Can increase Coreg PRN if needs further BP control. * Assessment & Plan Note - Mary Hutchison MD - 04/05/2021 10:37 AM CDT Associated Problem(s): Paraplegia (HCC) No sensation/motor function from nipples down - pain control with norco, fentanyl - c/w bowel regimen * Assessment & Plan Note - Mary Hutchison MD - 04/05/2021 10:34 AM CDT Associated Problem(s): Infected fluid collection without fistula CT a/p performed OSH with BL perinephric [...] region biopsied before that was not cancer .CT a/p over-read here: Large destructive process centered at [...] the sacrum. Fluid collection likely not infection, mostlikely inflammatory, ?charcot joint. No evidence of discitis/OM [...] c/s: biopsy 03/31 with aspirate now growing kim- susceptible E coli. Blood cx NGTD. - Per ID c/s: c/w meropenem + vanc (concern for opening to skin). - Ortho spine initially felt this was not infectious, so no intervention planned. Requested them tore-evaluate in the setting of positive fluid culture on 04/02. Per patient, they came to evaluate him on 04/03; no note left. Per verbal discussion on 04/04, they are still not interested in surgical int ervention, but their documentation is still pending. Awaiting call back again today. May need to escalate to [id number] discussion with ortho and ID if he fails to improve. - Monitor for recurrent fever * Assessment & Plan Note - Mary Hutchison MD - 04/05/2021 10:32 AM CDT Associated Problem(s): Complicated UTI (urinary tract infection) Pt admitted w/ sepsis, now stabilized w/ IVF, abx. UA with 3+ LE, 2+ blood. CRP 177, ESR 64. MRSA swab negative, and covid negative. Ur cx grewg >100k mixed mallory. CT a/p performed at OSH with BL perinephric fat, unchanged stones in urinary bladder and urethra. 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 Per Urology c/s: unclear if stoma arises from a samira-bladder vs regular vs augmented bladder. - Per Urology, rec 14 dominican lynch and tape to abdomen (no balloon). Can resume q2-3hr caths as home. - Stone removal is elective per Urology and can be addressed after this hospital stay and after resolution of acute medical issues. Patient had an appointment with an OSH urologist for this which hisfamily will reschedule. - pt may have failed cipro, ctx, zosyn at OSH with persistent fevers (last fever 04/03); now on vanc/kaykay - ID following * Subjective & Objective - Mary Hutchison MD - 04/05/2021 10:30 AM CDT Daily Progress Note Division of [facility] Name: Shawn Casey Jr. Today: April 05, 2021 : 1985 Age: 35 y.o. male Admit: 03/28/2021 Bed: [id number] Subjective Interval History: He did not want breakfast this morning per nurse, but told her he would eat lunch. No acute complaints for me. Afebrile overnight. Objective Medications: Scheduled: amLODIPine, 10 mg, oral, Daily carvediloL, 3.125 mg, oral, BID with meals (bkfst, dinner) diphenhydrAMINE, 25 mg, oral, Daily enoxaparin, 40 mg, subcutaneous, Q12H MARYANN fentaNYL, 1 patch, transdermal, Q72H ferrous sulfate, 65 mg of elemental iron, oral, Daily with breakfast gabapentin, 300 mg, oral, Nightly linaCLOtide, 145 mcg, oral, Daily [Held by Provider] losartan, 50 mg, oral, Daily meropenem, 2,000 mg, intravenous, Q8H MARYANN pantoprazole DR, 40 mg, oral, Daily polyethylene glycol, 17 g, oral, Daily potassium chloride ER, 20 mEq, oral, Nightly potassium chloride ER, 40 mEq, oral, Daily senna-docusate, 1 tablet, oral, BID sucralfate, 1 g, oral, TID AC vancomycin, 15 mg/kg, intravenous, Q12H Infusions: PRN: ??? acetaminophen ??? cyclobenzaprine ??? HYDROcodone-acetaminophen ??? ondansetron ODT OR ondansetron Vitals: 24hr Min/Max: Temp Min: 36.9 ??C (98.4 ??F) Max: 37.5 ??C (99.5 ??F) Pulse Min: 80 Max: 100 BP Min: 112/66 Max: 125/70 Resp Min: 18 Max: 20 SpO2 Min: 95 % Max: 100 % Most Recent: Vitals: 04/05/21 0910 BP: 124/77 Pulse: 83 Resp: 18 Temp: 37.1 ??C (98.7 ??F) SpO2: 96% Intake/Output Summary (Last 24 hours) at 04/05/2021 1030 Last data filed at 04/05/2021 0900 Gross per 24 hour Intake 1800 ml Output 1050 ml Net 750 ml Physical Exam Constitutional:?NAD, well developed, well nourished Eyes:?PERRL, EOMI, anicteric ENT:?NCAT, oropharynx normal, moist mucus membranes Lungs:?Clear to auscultation in all lung marrero, unlabored, trachea midline. Mild tachypnea Cardiovascular:?RRR, normal S1 and S2, no murmurs, no JVD GI:?Soft, non- tender, non-distended, bowel sounds +, no organomegaly. Stoma present in abdominal wall?? Skin:?No new rashes, lesions or bruises Extremities:?S/p BKA BL, legs with sequelae of surgeries/grafts.??Normal without edema or cyanosis Lymph:?No cervical, supraclavicular, axillary or inguinal adenopathy Neurologic:?AOx4, CNII-XII intact, normal strength and sensation Psychiatric:?Normal affect and mood :? Urethra meatus ?split open, urine leaking from meatus, no signs of infection. Lab/Diagnostic Review: Recent Results (from the past 36 hour(s)) POCT glucose Collection Time: 04/04/21 9:16 AM Result Value Ref Range Glucose, POC 114 70 - 199 mg/dL Blood culture Blood Hand, right Collection Time: 04/04/21 9:51 AM Specimen: Hand, right; Blood Result Value Ref Range Report Preliminary Report: No growth to date. Blood culture Blood Hand, left Collection Time: 04/04/21 10:00 AM Specimen: Hand, left; Blood Result Value Ref Range Report Preliminary Report: No growth to date. Vancomycin level trough Collection Time: 04/04/21 1:16 PM Result Value Ref Range Vancomycin trough 8.7 (L) 10.0 - 20.0 mcg/mL CBC with auto differential Collection Time: 04/04/21 9:01 PM Result Value Ref Range WBC 16.8 (H) 3.8 - 9.9 K/cumm Hgb 9.4 (L) 13.0 - 17.5 g/dL Hct 29.1 (L) 38.9 - 50.3 % Plt 441 (H) 150 - 400 K/cumm MPV 11.6 9.1 - 12.3 fL RBC 3.42 (L) 4.30 - 5.80 M/cumm MCV 85.1 81.3 - 96.4 fL MCH 27.5 27.1 - 33.3 pg MCHC 32.3 32.3 - 35.7 g/dL RDW CV 16.5 (H) 11.1 - 14.9 % RDW SD 51.7 (H) 35.7 - 48.1 fL NRBC abs 0.00 0.00 - 0.01 K/cumm Comprehensive metabolic panel Collection Time: 04/04/21 9:01 PM Result Value Ref Range Sodium 133 (L) 135 - 145 mmol/L Potassium, pl 4.3 3.3 - 4.9 mmol/L Chloride 103 97 - 110 mmol/L CO2 21 (L) 22 - 32 mmol/L Anion gap 9 2 - 15 mmol/L BUN 7 (L) 8 - 25 mg/dL Creatinine 0.53 (L) 0.80 - 1.30 mg/dL Glucose 96 70 - 199 mg/dL Calcium 8.5 8.5 - 10.3 mg/dL Bilirubin, total 0.7 0.1 - 1.2 mg/dL Protein, pl 6.7 6.5 - 8.5 g/dL Albumin 2.4 (L) 3.5 - 5.0 g/dL Alk phos 88 40 - 130 Units/L ALT 61 (H) 7 - 55 Units/L AST 46 10 - 50 Units/L Differential, auto Collection Time: 04/04/21 9:01 PM Result Value Ref Range Neutrophil abs 13.0 (H) 1.7 - 6.5 K/cumm Imm gran abs 0.7 (H) 0.0 - 0.1 K/cumm Lymphocyte abs 2.1 0.8 - 3.3 K/cumm Monocyte abs 0.8 0.2 - 0.8 K/cumm Eosinophil abs 0.2 0.0 - 0.5 K/cumm Basophil abs 0.0 0.0 - 0.1 K/cumm Neutrophil pct 77.6 % Imm gran pct 4.1 % Lymphocyte pct 12.4 % Monocyte pct 4.7 % Eosinophil pct 1.0 % Basophil pct 0.2 % I have reviewed the laboratory results. Imaging Results: IR Fluid Aspiration Narrative: EXAMINATION: L5-S1 fluid collection aspiration under CT guidance HISTORY: Paraplegia with L5-S1 abscess versus neurogenic spine. ATTENDING PRESENCE: Dr. Rhett Gomez M.D., the attending radiologist, was present from the beginning to the end of the procedure. SEDATION: The patient did not require conscious sedation for the procedure. TECHNIQUE: The risks, benefits and alternatives were discussed and informed consent was obtained. Prior to beginning the procedure, [place] Protocol was performed to confirm the patient's [...] CT guidance. 5 mL cloudy roldan fluid aspirated and sent for cell count, Gram stain, and culture. Electronically signed by: Rhett Gomez M.D. XR Chest 1 View Narrative: EXAMINATION: 1 view chest radiograph Impression: Comparison is made to chest radiograph dated 03/29/2021. Left upper extremity peripherally inserted central catheter tip overlies the superior vena cava. No pulmonary consolidation, pleural effusion, or pneumothorax. Normal cardiomediastinal silhouette. Electronically signed by: Kiana Salomon M.D. * Plan of Care - Janie Lewis RN - 04/04/2021 7:30 PM CDT Goals: Clinical Goals for the Shift: [place] abx, monitor vs and provide skin care Summary: Problem: Health Behavior: Goal: Understanding of [...] Progressing * Assessment & Plan Note - Mary Hutchison MD - 04/04/2021 2:36 PM CDT Associated Problem(s): Anemia Likely anemia of chronic disease. - Transfuse prn < 7 * Assessment & Plan Note - Mary Hutchison MD - 04/04/2021 2:35 PM CDT Associated Problem(s): Diarrhea (Resolved 04/06/2021) Non-bloody, no new abdominal pain, on abx as noted elsewhere. C diff neg. - Monitor * Assessment & Plan Note - Mary Hutchison MD - 04/04/2021 2:35 PM CDT Associated Problem(s): Tachypnea (Resolved 04/11/2021) D-dimer elevated to 3800s in the setting [...] tachypnea drastically changes. Wells score of 3 * Assessment & Plan Note - Mary Hutchison MD - 04/04/2021 2:35 PM CDT Associated Problem(s): Hyponatremia No symptoms. unclear etiology, ?possible volume overload. Urine osm 388, urine Na 70, ser osm 276 c/w hypotonic hyponatremia. On RA, urinating well. Not grossly volume overloaded. BNP mildly elevated. CXR with mild CM. Stable low 130s. - Monitor. * Assessment & Plan Note - Mary Hutchison MD - 04/04/2021 2:34 PM CDT Associated Problem(s): Elevated bilirubin (Resolved 04/10/2021) Isolated elevated bilirubin to 2.4 on admission, now trending down. Possibly 2/2 shock. RUQ ultrasound wnl. - Monitor bilirubin daily * Assessment & Plan Note - Mary Hutchison MD - 04/04/2021 2:33 PM CDT Associated Problem(s): Pressure injury of skin of buttock Per ACCS consult, wounds overall appear healthy with no obvious necrosis or purulence, no surgical intervention indicated. - wound consult - pain management as above * Assessment & Plan Note - Mary Hutchison MD - 04/04/2021 2:33 PM CDT Associated Problem(s): Continuous leakage of urine - urology consulted. See above * Assessment & Plan Note - Mary Hutchison MD - 04/04/2021 2:32 PM CDT Associated Problem(s): HTN (hypertension) On clonidine, hydralazine, coreg, amlodipine, losartan at home. - BP meds held on admission 2/2 sepsis; still holding Losartan, Hydralazine - Resumed Clonidine, Norvasc, Coreg. As BP is well controlled, DC'd Clonidine. Can increase Coreg PRN if needs further BP control. * Assessment & Plan Note - Mary Hutchison MD - 04/04/2021 2:32 PM CDT Associated Problem(s): Paraplegia (HCC) No sensation/motor function from nipples down - pain control with norco, fentanyl - c/w bowel regimen * Assessment & Plan Note - Mary Hutchison MD - 04/04/2021 2:25 PM CDT Associated Problem(s): Infected fluid collection without fistula CT a/p performed OSH with BL perinephric [...] region biopsied before that was not cancer .CT a/p over-read here: Large destructive process centered at [...] the sacrum. Fluid collection likely not infection, mostlikely inflammatory, ?charcot joint. No evidence of discitis/OM [...] infectious, so no intervention planned. Requested them tore-evaluate in the setting of positive fluid culture on 04/02. Per verbal discussion, they are stillnot interested in surgical intervention, but their documentation is still pending. May need to escalate to [id number] discussion with ortho and ID as there is increasing concern given patient's recurrent fevers that he will deteriorate without surgical intervention. - Monitor for recurrent fever * Assessment & Plan Note - Mary Hutchison MD - 04/04/2021 2:21 PM CDT Associated Problem(s): Complicated UTI (urinary tract infection) Pt admitted w/ sepsis, now stabilized w/ IVF, abx. UA with 3+ LE, 2+ blood. CRP 177, ESR 64. MRSA swab negative, and covid negative. Ur cx grewg >100k mixed mallory. CT a/p performed at OSH with BL perinephric fat, unchanged stones in urinary bladder and urethra. 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 Per Urology c/s: unclear if stoma arises from a samira-bladder vs regular vs augmented bladder. - Per Urology, rec 14 domin[place] lynch and tape to abdomen (no balloon). Can resume q2-3hr caths as home. - Stone removal is elective per Urology and can be addressed after this hospital stay and after resolution of acute medical issues - pt may have failed cipro, ctx, zosyn at OSH with persistent fevers (last fever 03/31); now on vanc/kaykay - ID following * Subjective & Objective - Mary Hutchison MD - 04/04/2021 2:16 PM CDT Daily Progress Note Division of Hospital Medicine Name: Shawn Casey Jr. Today: April 04, 2021 : 1985 Age: 35 y.o. male Admit: 03/28/2021 Bed: [id number] Subjective Interval History: Continues to be intermittently febrile and have rigors. No new complaints. Objective Medications: Scheduled: amLODIPine, 10 mg, oral, Daily carvediloL, 3.125 mg, oral, BID with meals (bkfst, dinner) diphenhydrAMINE, 25 mg, oral, Daily enoxaparin, 40 mg, subcutaneous, Q12H MARYANN fentaNYL, 1 patch, transdermal, Q72H ferrous sulfate, 65 mg of elemental iron, oral, Daily with breakfast gabapentin, 300 mg, oral, Nightly linaCLOtide, 145 mcg, oral, Daily [Held by Provider] losartan, 50 mg, oral, Daily meropenem, 2,000 mg, intravenous, Q8H MARYANN pantoprazole DR, 40 mg, oral, Daily polyethylene glycol, 17 g, oral, Daily potassium chloride ER, 20 mEq, oral, Nightly potassium chloride ER, 40 mEq, oral, Daily senna-docusate, 1 tablet, oral, BID sucralfate, 1 g, oral, TID AC vancomycin, 15 mg/kg, intravenous, Q24H Infusions: PRN: ??? acetaminophen ??? cyclobenzaprine ??? HYDROcodone-acetaminophen ??? ondansetron ODT OR ondansetron Vitals: 24hr Min/Max: Temp Min: 36.6 ??C (97.9 ??F) Max: 38.9 ??C (102 ??F) Pulse Min: 83 Max: 101 BP Min: 111/78 Max: 140/82 Resp Min: 16 Max: 26 SpO2 Min: 95 % Max: 100 % Most Recent: Vitals: 04/04/21 1246 BP: 112/66 Pulse: 90 Resp: 20 Temp: 36.9 ??C (98.4 ??F) SpO2: 97% Intake/Output Summary (Last 24 hours) at 04/04/2021 1416 Last data filed at 04/04/2021 1200 Gross per 24 hour Intake 1600 ml Output 1350 ml Net 250 ml Physical Exam Constitutional:?NAD, well developed, well nourished Eyes:?PERRL, EOMI, anicteric ENT:?NCAT, oropharynx normal, moist mucus membranes Lungs:?Clear to auscultation in all lung marrero, unlabored, trachea midline. Mild tachypnea Cardiovascular:?RRR, normal S1 and S2, no murmurs, no JVD GI:?Soft, non- tender, non-distended, bowel sounds +, no organomegaly. Stoma present in abdominal wall?? Skin:?No new rashes, lesions or bruises Extremities:?S/p BKA BL, legs with sequelae of surgeries/grafts.??Normal without edema or cyanosis Lymph:?No cervical, supraclavicular, axillary or inguinal adenopathy Neurologic:?AOx4, CNII-XII intact, normal strength and sensation Psychiatric:?Normal affect and mood :? Urethra meatus ?split open, urine leaking from meatus, no signs of infection. Lab/Diagnostic Review: Recent Results (from the past 36 hour(s)) CBC with auto differential Collection Time: 04/03/21 9:53 PM Result Value Ref Range WBC 18.5 (H) 3.8 - 9.9 K/cumm Hgb 9.6 (L) 13.0 - 17.5 g/dL Hct 29.1 (L) 38.9 - 50.3 % Plt 438 (H) 150 - 400 K/cumm MPV 11.4 9.1 - 12.3 fL RBC 3.44 (L) 4.30 - 5.80 M/cumm MCV 84.6 81.3 - 96.4 fL MCH 27.9 27.1 - 33.3 pg MCHC 33.0 32.3 - 35.7 g/dL RDW CV 16.8 (H) 11.1 - 14.9 % RDW SD 51.8 (H) 35.7 - 48.1 fL NRBC abs 0.00 0.00 - 0.01 K/cumm Comprehensive metabolic panel Collection Time: 04/03/21 9:53 PM Result Value Ref Range Sodium 134 (L) 135 - 145 mmol/L Potassium, pl 4.2 3.3 - 4.9 mmol/L Chloride 103 97 - 110 mmol/L CO2 20 (L) 22 - 32 mmol/L Anion gap 11 2 - 15 mmol/L BUN 9 8 - 25 mg/dL Creatinine 0.67 (L) 0.80 - 1.30 mg/dL Glucose 114 70 - 199 mg/dL Calcium 8.4 (L) 8.5 - 10.3 mg/dL Bilirubin, total 0.7 0.1 - 1.2 mg/dL Protein, pl 6.7 6.5 - 8.5 g/dL Albumin 2.4 (L) 3.5 - 5.0 g/dL Alk phos 105 40 - 130 Units/L ALT 88 (H) 7 - 55 Units/L AST 97 (H) 10 - 50 Units/L Differential, auto Collection Time: 04/03/21 9:53 PM Result Value Ref Range Neutrophil abs 14.1 (H) 1.7 - 6.5 K/cumm Imm gran abs 1.1 (H) 0.0 - 0.1 K/cumm Lymphocyte abs 2.2 0.8 - 3.3 K/cumm Monocyte abs 0.9 (H) 0.2 - 0.8 K/cumm Eosinophil abs 0.1 0.0 - 0.5 K/cumm Basophil abs 0.1 0.0 - 0.1 K/cumm Neutrophil pct 76.5 % Imm gran pct 5.9 % Lymphocyte pct 11.6 % Monocyte pct 5.1 % Eosinophil pct 0.4 % Basophil pct 0.5 % POCT glucose Collection Time: 04/04/21 9:16 AM Result Value Ref Range Glucose, POC 114 70 - 199 mg/dL I have reviewed the laboratory results. Imaging Results: IR Fluid Aspiration Narrative: EXAMINATION: L5-S1 fluid collection aspiration under CT guidance HISTORY: Paraplegia with L5-S1 abscess versus neurogenic spine. ATTENDING PRESENCE: Dr. Rhett Gomez M.D., the attending radiologist, was present from the beginning to the end of the procedure. SEDATION: The patient did not require conscious sedation for the procedure. TECHNIQUE: The risks, benefits and alternatives were discussed and informed consent was obtained. Prior to beginning the procedure, [place] Protocol was performed to confirm the patient's [...] aspiration under CT guidance. 5 mL cloudy rodlan fluid aspirated and sent for cell count, Gram stain, and culture. Electronically signed by: Rhett Gomez M.D. XR Chest 1 View Narrative: EXAMINATION: 1 view chest radiograph Impression: Comparison is made to chest radiograph dated 03/29/2021. Left upper extremity peripherally inserted central catheter tip overlies the superior vena cava. No pulmonary consolidation, pleural effusion, or pneumothorax. Normal cardiomediastinal silhouette. Electronically signed by: Kiana Salomon M.D. * Plan of Care - Hortecnia Garvin RN - 04/04/2021 12:00 PM CDT Problem: Health Behavior: Goal: Understanding [...] Progressing Goals: Clinical Goals for the Shift: pain management; IV abx * Plan of Care - Olga Lidia Huston MSW - 04/04/2021 11:41 AM CDT Problem: Ensure acute medical needs are met and that patient has a safe discharge plan. Goal: Secure a facility that patient/family are agreeable with and ensure patient has continuum of care upon discharge. Per DCAM patient is not medically stable for discharge today, ADD early next week. Social work faxed updates to [facility] ([phone]) and spoke with Ning at [facility]. Social work will continue to assist. Olga Lidia Huston LMSW #[phone] _ For emergency needs from 4:31p.m. - 7:59a.m., please call the ED Wood Setter . For weekend needs from 8:00a.m. - 4:30p.m., please call the Weekend Social Work Staff . * Plan of Care - Janie Lewis RN - 04/03/2021 11:51 PM CDT Goals: Clinical Goals for the Shift: [place] abx, monitor vs and provide skin care Summary: * Plan of Care - Leslie Kim RN - 04/03/2021 1:30 PM CDT Problem: Health Behavior: Goal: Understanding [...] Progressing Goals: Clinical Goals for the Shift: provide skin care, monitor vs, labs, continue abx therapy Summary: * Assessment & Plan Note - Mary Hutchison MD - 04/03/2021 12:42 PM CDT Associated Problem(s): Anemia Likely anemia of chronic disease. - Transfuse prn < 7 * Assessment & Plan Note - Mary Hutchison MD - 04/03/2021 12:39 PM CDT Associated Problem(s): Diarrhea (Resolved 04/06/2021) Non-bloody, no new abdominal pain, on abx as noted elsewhere. C diff neg. - Monitor * Assessment & Plan Note - Mary Hutchison MD - 04/03/2021 12:39 PM CDT Associated Problem(s): Tachypnea (Resolved 04/11/2021) D-dimer elevated to 3800s in the setting [...] tachypnea drastically changes. Wells score of 3 * Assessment & Plan Note - Mary Hutchison MD - 04/03/2021 12:38 PM CDT Associated Problem(s): Hyponatremia No symptoms. unclear etiology, ?possible volume overload. Urine osm 388, urine Na 70, ser osm 276 c/w hypotonic hyponatremia. On RA, urinating well. Not grossly volume overloaded. BNP mildly elevated. CXR with mild CM. Stable low 130s. - Monitor. * Assessment & Plan Note - Mary Hutchison MD - 04/03/2021 12:38 PM CDT Associated Problem(s): Elevated bilirubin (Resolved 04/10/2021) Isolated elevated bilirubin to 2.4 on admission, now trending down. Possibly 2/2 shock. RUQ ultrasound wnl. - Monitor bilirubin daily * Assessment & Plan Note - Mary Hutchison MD - 04/03/2021 12:38 PM CDT Associated Problem(s): Pressure injury of skin of buttock Per ACCS consult, wounds overall appear healthy with no obvious necrosis or purulence, no surgical intervention indicated. - wound consult - pain management as above * Assessment & Plan Note - Mary Hutchison MD - 04/03/2021 12:38 PM CDT Associated Problem(s): Continuous leakage of urine - urology consulted. See above * Assessment & Plan Note - Mary Hutchison MD - 04/03/2021 12:33 PM CDT Associated Problem(s): HTN (hypertension) On clonidine, hydralazine, coreg, amlodipine, losartan at home. - BP meds held on admission 2/2 sepsis; still holding Losartan, Hydralazine - Resumed Clonidine, Norvasc, Coreg. As BP is well controlled, will DC Clonidine. Can increase Coreg PRN if needs further BP control. * Assessment & Plan Note - Mary Hutchison MD - 04/03/2021 12:32 PM CDT Associated Problem(s): Paraplegia (HCC) No sensation/motor function from nipples down - pain control with norco, fentanyl - c/w bowel regimen * Assessment & Plan Note - Mary Hutchison MD - 04/03/2021 12:31 PM CDT Associated Problem(s): Infected fluid collection without fistula CT a/p performed OSH with BL perinephric [...] region biopsied before that was not cancer .CT a/p over-read here: Large destructive process centered at [...] the sacrum. Fluid collection likely not infection, mostlikely inflammatory, ?charcot joint. No evidence of discitis/OM [...] E coli - Monitor for recurrent fever * Assessment & Plan Note - Mary Hutchison MD - 04/03/2021 12:30 PM CDT Associated Problem(s): Complicated UTI (urinary tract infection) Pt admitted w/ sepsis, now stabilized w/ IVF, abx. UA with 3+ LE, 2+ blood. CRP 177, ESR 64. MRSA swab negative, and covid negative. Ur cx grewg >100k mixed mallory. CT a/p performed at OSH with BL perinephric fat, unchanged stones in urinary bladder and urethra. 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 Per Urology c/s: unclear if stoma arises from a samira-bladder vs regular vs augmented bladder. - Per Urology, rec 14 dominican lynch and tape to abdomen (no balloon). Can resume q2-3hr caths as home. Can follow up with home urologist for stones in bladder - pt may have failed cipro, ctx, zosyn at OSH with persistent fevers (last fever 03/31); now on vanc/kaykay - ID following * Subjective & Objective - Mary Hutchison MD - 04/03/2021 12:25 PM CDT Daily Progress Note Division of Hospital Medicine Name: Shawn Casey Jr. Today: April 03, 2021 : 1985 Age: 35 y.o. male Admit: 03/28/2021 Bed: [id number] Subjective Interval History: Patient febrile to 38.9 overnight with subjective fever. No other complaints. He says the spine surgeons have seen him and are talking about draining his fluid collection, though this is not documented yet. Objective Medications: Scheduled: amLODIPine, 10 mg, oral, Daily carvediloL, 3.125 mg, oral, BID with meals (bkfst, dinner) cloNIDine, 0.1 mg, oral, BID diphenhydrAMINE, 25 mg, oral, Daily enoxaparin, 40 mg, subcutaneous, Q12H MARYANN fentaNYL, 1 patch, transdermal, Q72H ferrous sulfate, 65 mg of elemental iron, oral, Daily with breakfast gabapentin, 300 mg, oral, Nightly linaCLOtide, 145 mcg, oral, Daily [Held by Provider] losartan, 50 mg, oral, Daily meropenem, 2,000 mg, intravenous, Q8H MARYANN pantoprazole DR, 40 mg, oral, Daily polyethylene glycol, 17 g, oral, Daily potassium chloride ER, 20 mEq, oral, Nightly potassium chloride ER, 40 mEq, oral, Daily senna-docusate, 1 tablet, oral, BID sucralfate, 1 g, oral, TID AC vancomycin, 15 mg/kg, intravenous, Q24H Infusions: PRN: ??? acetaminophen ??? cyclobenzaprine ??? HYDROcodone-acetaminophen ??? ondansetron ODT OR ondansetron Vitals: 24hr Min/Max: Temp Min: 37.3 ??C (99.1 ??F) Max: 38.9 ??C (102 ??F) Pulse Min: 92 Max: 103 BP Min: 111/56 Max: 137/77 Resp Min: 16 Max: 18 SpO2 Min: 97 % Max: 100 % Most Recent: Vitals: 04/03/21 0837 BP: 137/77 Pulse: 92 Resp: 16 Temp: 37.3 ??C (99.1 ??F) SpO2: 98% Intake/Output Summary (Last 24 hours) at 04/03/2021 1225 Last data filed at 04/02/2021 2137 Gross per 24 hour Intake -- Output 400 ml Net -400 ml Physical Exam Constitutional:?NAD, well developed, well nourished Eyes:?PERRL, EOMI, anicteric ENT:?NCAT, oropharynx normal, moist mucus membranes Lungs:?Clear to auscultation in all lung marrero, unlabored, trachea midline. Mild tachypnea Cardiovascular:?RRR, normal S1 and S2, no murmurs, no JVD GI:?Soft, non- tender, non-distended, bowel sounds +, no organomegaly. Stoma present in abdominal wall?? Skin:?No new rashes, lesions or bruises Extremities:?S/p BKA BL, legs with sequelae of surgeries/grafts.??Normal without edema or cyanosis Lymph:?No cervical, supraclavicular, axillary or inguinal adenopathy Neurologic:?AOx4, CNII-XII intact, normal strength and sensation Psychiatric:?Normal affect and mood :? Urethra meatus ?split open, urine leaking from meatus, no signs of infection. Lab/Diagnostic Review: Recent Results (from the past 36 hour(s)) CBC with auto differential Collection Time: 04/02/21 9:31 PM Result Value Ref Range WBC 18.1 (H) 3.8 - 9.9 K/cumm Hgb 9.8 (L) 13.0 - 17.5 g/dL Hct 30.2 (L) 38.9 - 50.3 % Plt 411 (H) 150 - 400 K/cumm MPV 11.2 9.1 - 12.3 fL RBC 3.59 (L) 4.30 - 5.80 M/cumm MCV 84.1 81.3 - 96.4 fL MCH 27.3 27.1 - 33.3 pg MCHC 32.5 32.3 - 35.7 g/dL RDW CV 16.9 (H) 11.1 - 14.9 % RDW SD 52.3 (H) 35.7 - 48.1 fL NRBC abs 0.00 0.00 - 0.01 K/cumm Comprehensive metabolic panel Collection Time: 04/02/21 9:31 PM Result Value Ref Range Sodium 132 (L) 135 - 145 mmol/L Potassium, pl 4.2 3.3 - 4.9 mmol/L Chloride 103 97 - 110 mmol/L CO2 18 (L) 22 - 32 mmol/L Anion gap 11 2 - 15 mmol/L BUN 8 8 - 25 mg/dL Creatinine 0.63 (L) 0.80 - 1.30 mg/dL Glucose 110 70 - 199 mg/dL Calcium 8.8 8.5 - 10.3 mg/dL Bilirubin, total 1.0 0.1 - 1.2 mg/dL Protein, pl 6.8 6.5 - 8.5 g/dL Albumin 2.7 (L) 3.5 - 5.0 g/dL Alk phos 95 40 - 130 Units/L ALT 78 (H) 7 - 55 Units/L AST 78 (H) 10 - 50 Units/L Differential, auto Collection Time: 04/02/21 9:31 PM Result Value Ref Range Neutrophil abs 14.3 (H) 1.7 - 6.5 K/cumm Imm gran abs 1.0 (H) 0.0 - 0.1 K/cumm Lymphocyte abs 1.9 0.8 - 3.3 K/cumm Monocyte abs 0.8 0.2 - 0.8 K/cumm Eosinophil abs 0.1 0.0 - 0.5 K/cumm Basophil abs 0.0 0.0 - 0.1 K/cumm Neutrophil pct 79.2 % Imm gran pct 5.3 % Lymphocyte pct 10.5 % Monocyte pct 4.5 % Eosinophil pct 0.3 % Basophil pct 0.2 % I have reviewed the laboratory results. Imaging Results: IR Fluid Aspiration Narrative: EXAMINATION: L5-S1 fluid collection aspiration under CT guidance HISTORY: Paraplegia with L5-S1 abscess versus neurogenic spine. ATTENDING PRESENCE: Dr. Rhett Gomez M.D., the attending radiologist, was present from the beginning to the end of the procedure. SEDATION: The patient did not require conscious sedation for the procedure. TECHNIQUE: The risks, benefits and alternatives were discussed and informed consent was obtained. Prior to beginning the procedure, [place] Protocol was performed to confirm the patient's [...] CT guidance. 5 mL cloudy roldan fluid aspirated and sent for cell count, Gram stain, and culture. Electronically signed by: Rhett Gomez M.D. XR Chest 1 View Narrative: EXAMINATION: 1 view chest radiograph Impression: Comparison is made to chest radiograph dated 03/29/2021. Left upper extremity peripherally inserted central catheter tip overlies the superior vena cava. No pulmonary consolidation, pleural effusion, or pneumothorax. Normal cardiomediastinal silhouette. Electronically signed by: Kiana Salomon M.D. * Plan of Care - Claudia Johnson RN - 04/03/2021 2:13 AM CDT Goals: Clinical Goals for the Shift: monitor VS and labs Summary: Problem: Health Behavior: Goal: Understanding of [...] Outcome: Progressing * Plan of Care - Minnie Sanabria RN - 04/02/2021 5:54 PM CDT Pt A & O x 4 throughout shift, VSS, pt refusing q2 turns. Education for skin breakdown / wound healing provided. Pt continuing to refuse turns. Continue with antibiotic treatment. Wound care provided as well as CHG bath. Pt denies any pain. Problem: Health Behavior: Goal: Understanding of discharge needs will improve Outcome: Progressing Problem: Lack of Knowledge: Goal: Ability to identify appropriate dietary choices will improve Outcome: Progressing Problem: Nutritional: Goal: Dietary intake will improve Outcome: Progressing Goal: Ability to maintain a balanced intake and output will improve Outcome: Progressing Problem: Skin Integrity: Goal: Ability to demonstrate warm and dry skin will improve Outcome: Progressing Problem: Lack of Knowledge: Goal: Ability to state ways to decrease the risk of falls will improve Outcome: Progressing Problem: Safety: Goal: Will remain free from falls Outcome: Progressing Goal: Will remain free from injury from falls Outcome: Progressing Goal: Will remain free from falls and injury in home environment Outcome: Progressing Goals: Clinical Goals for the Shift: monitor VS and labs Summary: * Assessment & Plan Note - Mary Hutchison MD - 04/02/2021 2:15 PM CDT Associated Problem(s): Anemia Likely anemia of chronic disease. - Transfuse prn < 7 * Assessment & Plan Note - Mary Hutchison MD - 04/02/2021 2:15 PM CDT Associated Problem(s): Diarrhea (Resolved 04/06/2021) Non-bloody, no new abdominal pain, on abx as noted elsewhere. C diff neg. - Monitor * Assessment & Plan Note - Mary Hutchison MD - 04/02/2021 2:14 PM CDT Associated Problem(s): Tachypnea (Resolved 04/11/2021) D-dimer elevated to 3800s in the setting [...] tachypnea drastically changes. Wells score of 3 * Assessment & Plan Note - Mary Hutchison MD - 04/02/2021 2:14 PM CDT Associated Problem(s): Hyponatremia No symptoms. unclear etiology, ?possible volume overload. Urine osm 388, urine Na 70, ser osm 276 c/w hypotonic hyponatremia. On RA, urinating well. Not grossly volume overloaded. BNP mildly elevated. CXR with mild CM. - Monitor. Hold IVFs * Assessment & Plan Note - Mary Hutchison MD - 04/02/2021 2:14 PM CDT Associated Problem(s): Elevated bilirubin (Resolved 04/10/2021) Isolated elevated bilirubin to 2.4 on admission, now trending down. Possibly 2/2 shock. RUQ ultrasound wnl. - Monitor bilirubin daily * Assessment & Plan Note - Mary Hutchison MD - 04/02/2021 2:14 PM CDT Associated Problem(s): Pressure injury of skin of buttock Per ACCS consult, wounds overall appear healthy with no obvious necrosis or purulence, no surgical intervention indicated. - wound consult - pain management as above * Assessment & Plan Note - Mary Hutchison MD - 04/02/2021 2:14 PM CDT Associated Problem(s): Continuous leakage of urine - urology consulted. See above * Assessment & Plan Note - Mary Hutchison MD - 04/02/2021 2:14 PM CDT Associated Problem(s): HTN (hypertension) On clonidine, hydralazine, coreg, amlodipine, losartan at home. - BP meds held on admission 2/2 sepsis; still holding Losartan, Hydralazine - Resumed Clonidine, Norvasc, Coreg * Assessment & Plan Note - Mary Hutchison MD - 04/02/2021 2:14 PM CDT Associated Problem(s): Paraplegia (HCC) No sensation/motor function from nipples down - pain control with norco, fentanyl. c/w bowel regimen * Assessment & Plan Note - Mary Hutchison MD - 04/02/2021 2:12 PM CDT Associated Problem(s): Infected fluid collection without fistula CT a/p performed OSH with BL perinephric [...] region biopsied before that was not cancer .CT a/p over-read here: Large destructive process centered at [...] the sacrum. Fluid collection likely not infection, mostlikely inflammatory, ?charcot joint. No evidence of discitis/OM [...] them now that aspirate growing E coli. * Assessment & Plan Note - Mary Hutchison MD - 04/02/2021 2:11 PM CDT Associated Problem(s): Complicated UTI (urinary tract infection) Pt admitted w/ sepsis, now stabilized w/ IVF, abx. UA with 3+ LE, 2+ blood. CRP 177, ESR 64. MRSA swab negative, and covid negative. Ur cx grewg >100k mixed mallory. CT a/p performed at OSH with BL perinephric fat, unchanged stones in urinary bladder and urethra. 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 Per Urology c/s: unclear if stoma arises from a samira-bladder vs regular vs augmented bladder. - Per Urology, rec 14 dominican lynch and tape to abdomen (no balloon). Can resume q2-3hr caths as home. Can follow up with home urologist for stones in bladder - pt may have failed cipro, ctx, zosyn at OSH with persistent fevers (last fever 03/31); now on vanc/kaykay - ID following * Subjective & Objective - Mary Hutchison MD - 04/02/2021 1:49 PM CDT Daily Progress Note Division of Hospital Medicine Name: Shawn Casey Jr. Today: April 02, 2021 : 1985 Age: 35 y.o. male Admit: 03/28/2021 Bed: [id number] Subjective Interval History: No new complaints. Continues to look groggy but is arousable and says this is hisnormal level of activity. Objective Medications: Scheduled: amLODIPine, 10 mg, oral, Daily carvediloL, 3.125 mg, oral, BID with meals (bkfst, dinner) cloNIDine, 0.1 mg, oral, BID diphenhydrAMINE, 25 mg, oral, Daily enoxaparin, 40 mg, subcutaneous, Q12H MARYANN fentaNYL, 1 patch, transdermal, Q72H ferrous sulfate, 65 mg of elemental iron, oral, Daily with breakfast gabapentin, 300 mg, oral, Nightly linaCLOtide, 145 mcg, oral, Daily [Held by Provider] losartan, 50 mg, oral, Daily meropenem, 2,000 mg, intravenous, Q8H MARYANN pantoprazole DR, 40 mg, oral, Daily polyethylene glycol, 17 g, oral, Daily potassium chloride ER, 20 mEq, oral, Nightly potassium chloride ER, 40 mEq, oral, Daily senna-docusate, 1 tablet, oral, BID sucralfate, 1 g, oral, TID AC vancomycin, 15 mg/kg, intravenous, Q24H Infusions: [Held by Provider] sodium chloride 0.9%, 100 mL/hr, Last Rate: 100 mL/hr (03/29/21 0538) PRN: ??? acetaminophen ??? cyclobenzaprine ??? HYDROcodone-acetaminophen ??? ondansetron ODT OR ondansetron Vitals: 24hr Min/Max: Temp Min: 36.8 ??C (98.2 ??F) Max: 37.7 ??C (99.8 ??F) Pulse Min: 84 Max: 105 BP Min: 112/72 Max: 137/84 Resp Min: 18 Max: 20 SpO2 Min: 93 % Max: 99 % Most Recent: Vitals: 04/02/21 1110 BP: 112/72 Pulse: 84 Resp: 18 Temp: 36.8 ??C (98.2 ??F) SpO2: 99% Intake/Output Summary (Last 24 hours) at 04/02/2021 1350 Last data filed at 04/02/2021 1000 Gross per 24 hour Intake 240 ml Output 500 ml Net -260 ml Physical Exam Constitutional:?NAD, well developed, well nourished Eyes:?PERRL, EOMI, anicteric ENT:?NCAT, oropharynx normal, moist mucus membranes Lungs:?Clear to auscultation in all lung marrero, unlabored, trachea midline. Mild tachypnea Cardiovascular:?RRR, normal S1 and S2, no murmurs, no JVD GI:?Soft, non- tender, non-distended, bowel sounds +, no organomegaly. Stoma present in abdominal wall?? Skin:?No new rashes, lesions or bruises Extremities:?S/p BKA BL, legs with sequelae of surgeries/grafts.??Normal without edema or cyanosis Lymph:?No cervical, supraclavicular, axillary or inguinal adenopathy Neurologic:?AOx4, CNII-XII intact, normal strength and sensation Psychiatric:?Normal affect and mood :? Urethra meatus ?split open, urine leaking from meatus, no signs of infection. Lab/Diagnostic Review: Recent Results (from the past 36 hour(s)) Vancomycin level trough Collection Time: 04/01/21 2:33 AM Result Value Ref Range Vancomycin trough 11.1 10.0 - 20.0 mcg/mL CBC with auto differential Collection Time: 04/01/21 9:32 PM Result Value Ref Range WBC 17.0 (H) 3.8 - 9.9 K/cumm Hgb 9.6 (L) 13.0 - 17.5 g/dL Hct 29.8 (L) 38.9 - 50.3 % Plt 362 150 - 400 K/cumm MPV 11.8 9.1 - 12.3 fL RBC 3.52 (L) 4.30 - 5.80 M/cumm MCV 84.7 81.3 - 96.4 fL MCH 27.3 27.1 - 33.3 pg MCHC 32.2 (L) 32.3 - 35.7 g/dL RDW CV 17.1 (H) 11.1 - 14.9 % RDW SD 52.7 (H) 35.7 - 48.1 fL NRBC abs 0.00 0.00 - 0.01 K/cumm Comprehensive metabolic panel Collection Time: 04/01/21 9:32 PM Result Value Ref Range Sodium 133 (L) 135 - 145 mmol/L Potassium, pl 4.2 3.3 - 4.9 mmol/L Chloride 105 97 - 110 mmol/L CO2 18 (L) 22 - 32 mmol/L Anion gap 10 2 - 15 mmol/L BUN 8 8 - 25 mg/dL Creatinine 0.62 (L) 0.80 - 1.30 mg/dL Glucose 101 70 - 199 mg/dL Calcium 8.5 8.5 - 10.3 mg/dL Bilirubin, total 0.7 0.1 - 1.2 mg/dL Protein, pl 6.3 (L) 6.5 - 8.5 g/dL Albumin 2.3 (L) 3.5 - 5.0 g/dL Alk phos 80 40 - 130 Units/L ALT 58 (H) 7 - 55 Units/L AST 60 (H) 10 - 50 Units/L Differential, auto Collection Time: 04/01/21 9:32 PM Result Value Ref Range Neutrophil abs 13.0 (H) 1.7 - 6.5 K/cumm Imm gran abs 1.1 (H) 0.0 - 0.1 K/cumm Lymphocyte abs 1.8 0.8 - 3.3 K/cumm Monocyte abs 0.9 (H) 0.2 - 0.8 K/cumm Eosinophil abs 0.2 0.0 - 0.5 K/cumm Basophil abs 0.1 0.0 - 0.1 K/cumm Neutrophil pct 76.2 % Imm gran pct 6.6 % Lymphocyte pct 10.5 % Monocyte pct 5.4 % Eosinophil pct 0.9 % Basophil pct 0.4 % I have reviewed the laboratory results. Imaging Results: IR Fluid Aspiration Narrative: EXAMINATION: L5-S1 fluid collection aspiration under CT guidance HISTORY: Paraplegia with L5-S1 abscess versus neurogenic spine. ATTENDING PRESENCE: Dr. Rhett Gomez M.D., the attending radiologist, was present from the beginning to the end of the procedure. SEDATION: The patient did not require conscious sedation for the procedure. TECHNIQUE: The risks, benefits and alternatives were discussed and informed consent was obtained. Prior to beginning the procedure, [place] Protocol was performed to confirm the patient's [...] CT guidance. 5 mL cloudy roldan fluid aspirated and sent for cell count, Gram stain, and culture. Electronically signed by: Rhett Gomez M.D. XR Chest 1 View Narrative: EXAMINATION: 1 view chest radiograph Impression: Comparison is made to chest radiograph dated 03/29/2021. Left upper extremity peripherally inserted central catheter tip overlies the superior vena cava. No pulmonary consolidation, pleural effusion, or pneumothorax. Normal cardiomediastinal silhouette. Electronically signed by: Kiana Salomon M.D. * Plan of Care - Olga Lidia Huston MSW - 04/02/2021 1:20 PM CDT Problem: Ensure acute medical needs are met and that patient has a safe discharge plan. Goal: Secure a facility that patient/family are agreeable with and ensure patient has continuum of care upon discharge. Patient is not medically stable for discharge today, ADD 04/04. [facility] ([phone]). Social work spoke with admissions at facility and they did confirm patient was their resident. They requested that updates be faxed to [phone], as they do not utilize allscripts. Social work sent fax. Olga Lidia Huston LMSW #[phone] _ For emergency needs from 4:31p.m. - 7:59a.m., please call the ED Wood Setter . For weekend needs from 8:00a.m. - 4:30p.m., please call the Weekend Social Work Staff . * Provider Query - Mary Hutchison MD - 04/02/2021 11:57 AM CDT Specify the significance of the abnormal BMI and document in the medical record and on the form below. BMI greater than 25 ___Overweight ___Obesity ___Morbid (severe) Obesity ___Other, specify below ___Clinically unable to determine Additional Provider Response: Overweight Clinical Indicators/Treatments: BMI 48 with admitting weight 293 lbs. BMI definitions per www.NHLBI.nih.gov BMI Weight Status <18.5 Underweight 18.5 to 24.9 Normal/Healthy 25 to 29.9 Overweight 30 to 39.9 Obesity >40 Extreme Obesity (Morbid) Use of terms such as likely, suspected, possible, or probable (associated with a specific diagnosisthat is being evaluated, monitored, or treated as if it exists) are acceptable and can be coded in the inpatient setting when documented at the time of discharge. This documentation will become part of the patient???s medical record. Sincerely, Jenna Walsh RN BSN CCDS Clinical [employer] [facility] [phone] [email or web address] * Plan of Care - Claudia Johnson RN - 04/02/2021 1:15 AM CDT Goals: Clinical Goals for the Shift: monitor VS and labs Summary: Problem: Health Behavior: Goal: Understanding of [...] Outcome: Progressing * Plan of Care - Lashawn Jarvis RN - 04/01/2021 4:30 PM CDT Goals: Clinical Goals for the Shift: monitor VS and labs Summary: Patient stable Problem: Health Behavior: Goal: Understanding of discharge [...] home environment Outcome: Progressing * Plan of Reddy - Maricruz Campos RN - 04/01/2021 12:14 AM CDT Goals: Clinical Goals for the Shift: monitor VS and labs Summary: Problem: Health Behavior: Goal: Understanding of discharge needs will improve Outcome: Progressing Problem: Activity: Goal: Mobility will improve Outcome: Progressing Problem: Lack of Knowledge: Goal: Understanding of ways to prevent future skin breakdown will improve Outcome: Progressing Problem: Nutritional: Goal: Dietary intake will improve Outcome: Progressing Problem: Skin Integrity: Goal: Risk for impaired skin integrity will decrease Outcome: Progressing Problem: Lack of Knowledge: Goal: Ability to state ways to decrease the risk of falls will improve Outcome: Progressing * Plan of Care - Lashawn Jarvis RN - 03/31/2021 5:58 PM CDT Goals: Clinical Goals for the Shift: monitor VS and labs, pain management Summary: Patient stable Pain managed with medications Wound care Problem: Health Behavior: Goal: Understanding of [...] environment Outcome: Progressing * Post-Procedure Note - Rhett Gomez MD - 03/31/2021 3:39 PM CDT Radiology Brief Post Procedure Note Attending: Rhett Gomez MD Senior Copywriter: none Sedation/Anesthesia: Local Pre-Op/Pre-Procedure Diagnosis: L5/S1 fluid collection possible neurogenic spine Post-Op/Post-Procedure Diagnosis: same Procedure Performed: CT guided L5/S1 fluid collection aspiration. Procedure Findings: Large complex fluid collection. 6 ml aspirate obtained. Complications: None Estimated Blood Loss: None Specimens: L5/S1 fluid to micro Condition: Stable Full report to follow. * Plan of Care - Olga Lidia Huston MSW - 03/31/2021 1:31 PM CDT Problem: Ensure acute medical needs are met and that patient has a safe discharge plan. Goal: Secure a facility that patient/family are agreeable with and ensure patient has continuum of care upon discharge. Initial assessment completed by DEDE Hurtado on 03/31. Patient admitted from [facility]. Social work spoke with patient and he stated he has been there since February 2021 and wanted to return. Referral sent to SNF via allscripts. Social work will continue to assist. Olga Lidia Huston LMSW #[phone] _ For emergency needs from 4:31p.m. - 7:59a.m., please call the ED Wood Setter . For weekend needs from 8:00a.m. - 4:30p.m., please call the Weekend Social Work Staff . * Assessment & Plan Note - Mary Hutchison MD - 03/31/2021 12:52 PM CDT Associated Problem(s): Diarrhea (Resolved 04/06/2021) Non-bloody, no new abdominal pain, on abx, still with fevers. C diff neg. - Monitor * Assessment & Plan Note - Darrian Aguilar MD - 03/31/2021 12:27 PM CDT Associated Problem(s): Fever (Resolved 04/01/2021) Fever curve improving on vanc/kaykay. Unclear etiology. - last fever 38.1 on 03/30-03/31 - OSH ([facility], ) bl cx pending (sent out 03/29) and ur cx pending (must have sent mult urine cultures as paper records show >100k mixed mallory with no speciation). OSH will fax results to [phone] (far fax machine [phone]) - blood cx NG, ur cx NG * Plan of Care - Kathia Morse RN - 03/30/2021 10:18 PM CDT Goals: Clinical Goals for the Shift: monitor VS and labs Summary: Problem: Health Behavior: Goal: Understanding of discharge needs will improve Outcome: Progressing Problem: Lack of [...] Progressing * Assessment & Plan Note - Georgina Rod MD - 03/30/2021 5:09 PM CDT Associated Problem(s): Fever (Resolved 04/01/2021) The patient is a 35 y.o. male with PMH of paraplegia from [facility] s/p bilateral BKA and neobladder who initially presented to OSH on 03/22 and was transferred here on 03/28 due to persistent fever. Medicalrecord from OSH is unable to review but [...] here and negative urine culture), infected decubitus ulcerwith sacral osteomyelitis (unlikely given wound did not look infected) - Agree to continue broad spectrum antibiotics: vancomycin and meropenem for now - Agree to consult [facility] IR for biopsy of lesion. Please send tissue for pathology with AFB and GMS, bacterial/fungal/mycobacterial culture. - Therapeutic drug monitoring: weekly CBC and CMP with twice weekly vancomycin trough level * Plan of Care - Catehrine Alex RN - 03/30/2021 5:04 PM CDT Goals: Clinical Goals for the Shift: maintain comfort and safety Summary: Problem: Health Behavior: Goal: Understanding of discharge needs will improve Outcome: Progressing Problem: Nutritional: Goal: Dietary intake will improve Outcome: Progressing Problem: Lack of Knowledge: Goal: Ability to state ways to decrease the risk of falls will improve Outcome: Progressing Problem: Safety: Goal: Will remain free from falls Outcome: Progressing Goal: Will remain free from injury from falls Outcome: Progressing * Assessment & Plan Note - Darrian Aguilar MD - 03/30/2021 4:24 PM CDT Associated Problem(s): Septic shock (HCC) (Resolved 04/01/2021) - Resolved. Occurred at OSH, responded to IVFs, no pressors ever. Ur cx from OSH with >100k mixed mallory. Pt was persistently febrile while on vanc/kaykay even while here, but has been afebrile for over 24 hours now and has always been HDS - unclear etiology, ?complicated UTI vs spinal fluid collection - ID consulted, following - OSH ([facility], ) bl cx pending (sent out 03/29) and ur cx pending (must have sent mult urine cultures as paper records show >100k mixed mallory with no speciation). 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 MRI total spine 03/30 with destruction at the lumbosacral junction with disorganized bone fragments and a fluid collection in the calf between the small residual components of the L5 vertebral body in the remainder of the sacrum. No evidence of discitis/OM in cervical,thoracic, or lumbar spine from L1 through L4. Large disc protrusion at C5-C6 causing moderate canalstenosis. 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 ACCS c/s do not feel that wounds are the source of fluid collection. S/p [facility] IR c/s: biopsy 03/31 with aspirate now growing kim-susceptible E coli. Blood cx NGTD. ID followed. S/p Vanc/Kaykay (started 03/28) as noted elsewhere; then switched to CTX 04/07. Plan for 6wks of abx (approximately through 05/09/21). PICC line in place. No options for source control at this [...] IR, drain is also not a good opti on as fluid collection would not likely drain effectively. ?? Complicated UTI (urinary tract infection) Pt admitted w/ sepsis, now stabilized w/ IVF, abx. UA with 3+ LE, 2+ blood. CRP 177, ESR 64. MRSA swab negative, and covid negative. Ur cx grewg >100k mixed mallory. CT a/p performed at OSH with BL perinephric fat, unchanged stones in urinary bladder and urethra. 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 Per Urology, unclear if stoma arises from a samira-bladder vs regular vs augmented bladder. Treated with cipro, CTX, zosyn at OSH with persistent fevers. Switched to vanc/kaykay on transfer admission here (03/28). Switched to CTX 04/07 per ID recs. - Per Urology, rec 14 dominican lynch and tape to abdomen (no balloon) while inpatient. Can resume q2-3hr caths outpatient. - Stone removal is elective per Urology and can be addressed after this hospital stay and after resolution of acute medical issues. - Has urology appointment on 04/17/2021 ?? Chest pain Acute episode of substernal chest pressure on 04/06 in the AM. No evidence of ischemia on EKG. Did not respond to SL NTG. Improved with Tums. Suspect GERD. No recurrence. Continued PPI and increased to BID before meals. Tums PRN. ?? Tachypnea D-dimer elevated to 3800s in the setting of sepsis, BNP mildly elevated to 400s, EKG with sinus tach, no previous EKGs, no segmental ST-T wave changes. Denies chest pain. CXR with CM, atelectasis. Has IVC filter but no hx of dvt/pe, simply prophylactic. Improved w/ Lasix x 1. Encouraged incentive spirometry. Stable on RA. - Low threshold to check CTPE if hypoxic or tachypnea drastically changes. Wells score of 3 ?? Hyponatremia No symptoms. unclear etiology, ?possible volume overload. Urine osm 388, urine Na 70, ser osm 276 c/w hypotonic hyponatremia. On RA, urinating well. Not grossly volume overloaded. BNP mildly elevated. CXR with mild CM. Stable low 130s. ?? Pressure injury of skin of buttock Per ACCS consult, wounds overall appear healthy with no obvious necrosis or purulence, no surgical intervention indicated. Wound consult following. The recommended: - Maintain turn schedule, utilize foam wedge for pressure redistribution. - Left thigh / right thigh: gently cleanse with wound cleanser, pat dry , apply polymem max foam with unprinted side to wound base and border tape in place, change every 48 hours and prn soiling. - Coccyx : turn, pressure redistribution, Extra Protective Cream BId and prn. Utilize genet spray and genet wipes to remove EPC to prevent further excoriation. - Left buttock pressure injury/Eschar covered: gently cleanse with genet spray and genet wipes to dissolve Extra Protective Cream, pat dry , Apply a thin layer of Extra Protective cream to cover Eschar, BID and prn soiling.?? Pain managed as noted elsewhere. ?? Continuous leakage of urine Urology consulted. See above. 14Fr Lynch placed thru SC stoma with improved leakage. Keep until urology appointment ?? HTN (hypertension) Was on clonidine, hydralazine, coreg, amlodipine, losartan outpatient. All BP meds held on admission 2/2 sepsis. BP stabilized after resolution of sepsis. BP is now relatively controlled on Coreg only (SBP 110-150s). Will not plan to resume Norvasc, Losartan, Hydralazine, Clonidine at this time. ?? Paraplegia (CMS/HCC) No sensation/motor function from nipples down. Continued chronic pain control with norco, fentanyl.Continued bowel regimen. ?? Elevated bilirubin Isolated elevated bilirubin to 2.4 on admission, now normalized. Possibly 2/2 shock. RUQ ultrasoundwnl. No further work-up indicated. ?? Anemia Likely anemia of chronic disease with component of iron deficiency. Cont. Ferrous sulfate. Hgb stable in the 9s this stay. * Assessment & Plan Note - Mary Hutchison MD - 03/30/2021 12:49 PM CDT Associated Problem(s): Tachypnea (Resolved 04/11/2021) D-dimer elevated to 3800s in the setting [...] tachypnea drastically changes. Wells score of 3 * Plan of Care - Kathia Morse RN - 03/29/2021 10:44 PM CDT Goals: Clinical Goals for the Shift: monitor VS and labs Summary: Problem: Health Behavior: Goal: Understanding of discharge needs will improve Outcome: Progressing Problem: Lack of [...] to fullest extent possible Outcome: Progressing Problem: Activity: Goal: Mobility will improve Outcome: Not Progressing * Plan of Care - Catherine Alex RN - 03/29/2021 6:38 PM CDT Goals: Clinical Goals for the Shift: npo for procedure Summary: Problem: Health Behavior: Goal: Understanding of discharge needs will improve Outcome: Progressing Problem: Lack of Knowledge: Goal: Understanding of ways to prevent future skin breakdown will improve Outcome: Progressing Goal: Ability to identify appropriate dietary choices will improve Outcome: Progressing * Plan of Care - Veronica Venegas RN - 03/29/2021 3:31 PM CDT This Registered Sales Assistant attempted to interview pt at this time, pt resting/sleeping at this time and wishes to be interviewed at a later time. This Registered Sales Assistant will attempt interview at a later time. Casemanagement will cont to follow for anticipated discharge needs. * Assessment & Plan Note - Mary Hutchison MD - 03/29/2021 1:24 PM CDT Associated Problem(s): Hyponatremia No symptoms. unclear etiology, ?possible volume overload. Urine osm 388, urine Na 70, ser osm 276 c/w hypotonic hyponatremia. On RA, urinating well. Not grossly volume overloaded. BNP mildly elevated. CXR with mild CM. - Monitor. Hold IVFs * Assessment & Plan Note - Mary Hutchison MD - 03/29/2021 1:23 PM CDT Associated Problem(s): Elevated bilirubin (Resolved 04/10/2021) Isolated elevated bilirubin to 2.4 on admission, now trending down. Possibly 2/2 shock. RUQ ultrasound wnl. - Monitor bilirubin daily * Plan of Care - Kathia Morse RN - 03/29/2021 12:43 AM CDT Goals: Clinical Goals for the Shift: monitor VS and labs Summary: Problem: Health Behavior: Goal: Understanding of [...] to fullest extent possible Outcome: Progressing * Assessment & Plan Note - Mary Hutchison MD - 03/28/2021 7:01 PM CDT Associated Problem(s): Pressure injury of skin of buttock Per ACCS consult, wounds overall appear healthy with no obvious necrosis or purulence, no surgical intervention indicated. - wound consult - pain management as above * Assessment & Plan Note - Darrian Aguilar MD - 03/28/2021 6:32 PM CDT Associated Problem(s): Paraplegia (HCC) No sensation/motor function from nipples down - pain control with norco, fentanyl. c/w bowel regimen * Assessment & Plan Note - Mary Hutchison MD - 03/28/2021 6:31 PM CDT Associated Problem(s): HTN (hypertension) On clonidine, hydralazine, coreg, amlodipine, losartan at home. - BP meds held on admission 2/2 sepsis; still holding Losartan, Hydralazine - Resumed Clonidine, Norvasc, Coreg * Assessment & Plan Note - Mary Hutchison MD - 03/28/2021 6:30 PM CDT Associated Problem(s): Continuous leakage of urine - urology consulted. See above * Assessment & Plan Note - Mary Hutchison MD - 03/28/2021 6:26 PM CDT Associated Problem(s): Anemia Likely anemia of chronic disease. - Transfuse prn < 7 * Assessment & Plan Note - Mary Hutchison MD - 03/28/2021 6:25 PM CDT Associated Problem(s): Infected fluid collection without fistula CT a/p performed OSH with BL perinephric [...] region biopsied before that was not cancer .CT a/p over-read here: Large destructive process centered at [...] the sacrum. Fluid collection likely not infection, mostlikely inflammatory, ?charcot joint. No evidence of discitis/OM [...] will fungal, mycobacterial, aerobic/anaerobic bacterial cultures pending * Assessment & Plan Note - Mary Hutchison MD - 03/28/2021 6:24 PM CDT Associated Problem(s): Complicated UTI (urinary tract infection) Pt admitted w/ sepsis, now stabilized w/ IVF, abx. UA with 3+ LE, 2+ blood. CRP 177, ESR 64. MRSA swab negative, and covid negative. Ur cx grewg >100k mixed mallory. CT a/p performed at OSH with BL perinephric fat, unchanged stones in urinary bladder and urethra. 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 Per Urology c/s: unclear if stoma arises from a samira-bladder vs regular vs augmented bladder. - Per Urology, rec 14 dominican lynch and tape to abdomen (no balloon). Can resume q2-3hr caths as home. Can follow up with home urologist for stones in bladder - pt may have failed cipro, ctx, zosyn at OSH with persistent fevers (last fever 03/31; now on vanc/kaykay - ID following * Subjective & Objective - Mary Hutchison MD - 03/28/2021 6:02 PM CDT Daily Progress Note Division of [facility] Name: Shawn Casey Jr. Today: April 01, 2021 : 1985 Age: 35 y.o. male Admit: 03/28/2021 Bed: [id number] Subjective Interval History: No acute complaints. Sleepy after benadryl. Objective Medications: Scheduled: amLODIPine, 10 mg, oral, Daily carvediloL, 3.125 mg, oral, BID with meals (bkfst, dinner) cloNIDine, 0.2 mg, oral, BID diphenhydrAMINE, 25 mg, oral, Daily fentaNYL, 1 patch, transdermal, Q72H ferrous sulfate, 65 mg of elemental iron, oral, Daily with breakfast gabapentin, 300 mg, oral, Nightly [Held by Provider] hydrALAZINE, 10 mg, oral, QID linaCLOtide, 145 mcg, oral, Daily [Held by Provider] losartan, 50 mg, oral, Daily meropenem, 2,000 mg, intravenous, Q8H MARYANN pantoprazole DR, 40 mg, oral, Daily polyethylene glycol, 17 g, oral, Daily potassium chloride ER, 20 mEq, oral, Nightly potassium chloride ER, 40 mEq, oral, Daily senna-docusate, 1 tablet, oral, BID sucralfate, 1 g, oral, TID AC [START ON 04/02/2021] vancomycin, 15 mg/kg, intravenous, Q24H Infusions: [Held by Provider] sodium chloride 0.9%, 100 mL/hr, Last Rate: 100 mL/hr (03/29/21 0538) PRN: ??? acetaminophen ??? cyclobenzaprine ??? HYDROcodone-acetaminophen ??? ondansetron ODT OR ondansetron Vitals: 24hr Min/Max: Temp Min: 36.4 ??C (97.5 ??F) Max: 38.3 ??C (101 ??F) Pulse Min: 77 Max: 102 BP Min: 109/61 Max: 150/95 Resp Min: 16 Max: 22 SpO2 Min: 97 % Max: 100 % Most Recent: Vitals: 04/01/21 165 BP: 116/68 Pulse: 99 Resp: 18 Temp: 37 ??C (98.6 ??F) SpO2: 98% Intake/Output Summary (Last 24 hours) at 04/01/2021 1712 Last data filed at 04/01/2021 1000 Gross per 24 hour Intake 300 ml Output 50 ml Net 250 ml Physical Exam Constitutional:?NAD, well developed, well nourished Eyes:?PERRL, EOMI, anicteric ENT:?NCAT, oropharynx normal, moist mucus membranes Lungs:?Clear to auscultation in all lung marrero, unlabored, trachea midline. Mild tachypnea Cardiovascular:?RRR, normal S1 and S2, no murmurs, no JVD GI:?Soft, non- tender, non-distended, bowel sounds +, no organomegaly. Stoma present in abdominal wall?? Skin:?No new rashes, lesions or bruises Extremities:?S/p BKA BL, legs with sequelae of surgeries/grafts.??Normal without edema or cyanosis Lymph:?No cervical, supraclavicular, axillary or inguinal adenopathy Neurologic:?AOx4, CNII-XII intact, normal strength and sensation Psychiatric:?Normal affect and mood :? Urethra meatus ?split open, urine leaking from meatus, no signs of infection. ?? I have reviewed the patient's vital signs. Lab/Diagnostic Review: Recent Results (from the past 36 hour(s)) C. difficile testing Stool Collection Time: 03/31/21 12:40 PM Specimen: Stool Result Value Ref Range C. diff result Negative, free toxin Negative, free toxin C. diff interp Negative for toxigenic Clostridioides (Clostridium) difficile. Analysis was performed using an enzyme immunoassay that detects C. difficile toxin(s) in feces. Aerobic and anaerobic culture and gram stain Aspirate Lumbar vertebrae #5 Collection Time: 03/31/21 3:40 PM Specimen: Lumbar vertebrae #5; Aspirate Result Value Ref Range Direct Specimen Exam Stain: Abundant polymorphonuclear leukocytes seen. No organisms seen. Report Preliminary Report: Culture results pending. Mycology (fungal) culture Aspirate Lumbar vertebrae #5 Collection Time: 03/31/21 3:40 PM Specimen: Lumbar vertebrae #5; Aspirate Result Value Ref Range Report Preliminary Report: No growth of fungus to date Vancomycin level random Collection Time: 03/31/21 4:31 PM Result Value Ref Range Vancomycin random 21.5 mcg/mL CBC with auto differential Collection Time: 03/31/21 10:53 PM Result Value Ref Range WBC 20.1 (H) 3.8 - 9.9 K/cumm Hgb 9.4 (L) 13.0 - 17.5 g/dL Hct 28.9 (L) 38.9 - 50.3 % Plt 325 150 - 400 K/cumm MPV 11.9 9.1 - 12.3 fL RBC 3.41 (L) 4.30 - 5.80 M/cumm MCV 84.8 81.3 - 96.4 fL MCH 27.6 27.1 - 33.3 pg MCHC 32.5 32.3 - 35.7 g/dL RDW CV 17.2 (H) 11.1 - 14.9 % RDW SD 53.2 (H) 35.7 - 48.1 fL NRBC abs 0.00 0.00 - 0.01 K/cumm Comprehensive metabolic panel Collection Time: 03/31/21 10:53 PM Result Value Ref Range Sodium 133 (L) 135 - 145 mmol/L Potassium, pl 4.0 3.3 - 4.9 mmol/L Chloride 104 97 - 110 mmol/L CO2 18 (L) 22 - 32 mmol/L Anion gap 11 2 - 15 mmol/L BUN 8 8 - 25 mg/dL Creatinine 0.70 (L) 0.80 - 1.30 mg/dL Glucose 102 70 - 199 mg/dL Calcium 8.9 8.5 - 10.3 mg/dL Bilirubin, total 1.1 0.1 - 1.2 mg/dL Protein, pl 6.5 6.5 - 8.5 g/dL Albumin 2.6 (L) 3.5 - 5.0 g/dL Alk phos 122 40 - 130 Units/L ALT 62 (H) 7 - 55 Units/L AST 97 (H) 10 - 50 Units/L Protime-INR Collection Time: 03/31/21 10:53 PM Result Value Ref Range PT 15.3 (H) 9.5 - 13.6 sec INR 1.4 (H) 0.9 - 1.2 Differential, auto Collection Time: 03/31/21 10:53 PM Result Value Ref Range Neutrophil abs 16.6 (H) 1.7 - 6.5 K/cumm Imm gran abs 1.1 (H) 0.0 - 0.1 K/cumm Lymphocyte abs 1.2 0.8 - 3.3 K/cumm Monocyte abs 1.1 (H) 0.2 - 0.8 K/cumm Eosinophil abs 0.1 0.0 - 0.5 K/cumm Basophil abs 0.0 0.0 - 0.1 K/cumm Neutrophil pct 82.7 % Imm gran pct 5.2 % Lymphocyte pct 6.1 % Monocyte pct 5.3 % Eosinophil pct 0.5 % Basophil pct 0.2 % Vancomycin level trough Collection Time: 04/01/21 2:33 AM Result Value Ref Range Vancomycin trough 11.1 10.0 - 20.0 mcg/mL I have reviewed the laboratory results. Imaging Results: IR Fluid Aspiration Narrative: EXAMINATION: L5-S1 fluid collection aspiration under CT guidance HISTORY: Paraplegia with L5-S1 abscess versus neurogenic spine. ATTENDING PRESENCE: Dr. Rhett Gomez M.D., the attending radiologist, was present from the beginning to the end of the procedure. SEDATION: The patient did not require conscious sedation for the procedure. TECHNIQUE: The risks, benefits and alternatives were discussed and informed consent was obtained. Prior to beginning the procedure, [place] Protocol was performed to confirm the patient's [...] CT guidance. 5 mL cloudy roldan fluid aspirated and sent for cell count, Gram stain, and culture. Electronically signed by: Rhett Gomez M.D. XR Chest 1 View Narrative: EXAMINATION: 1 view chest radiograph Impression: Comparison is made to chest radiograph dated 03/29/2021. Left upper extremity peripherally inserted central catheter tip overlies the superior vena cava. No pulmonary consolidation, pleural effusion, or pneumothorax. Normal cardiomediastinal silhouette. Electronically signed by: Kiana Salomon M.D. * Plan of Care - Lashawn Jarvis RN - 03/28/2021 5:12 PM CDT Goals: Clinical Goals for the Shift: monitor VS Summary: Patient stable Problem: Health Behavior: Goal: Understanding of discharge [...] improve to fullest extent possible Outcome: Progressing documented in this encounter Plan of Treatment Not on file documented as of this encounter Procedures Procedure Name Priority Date/Time Associated Diagnosis Comments DIFFERENTIAL AUTO Routine 04/10/2021 8:2 1 PM CDT CBC WITH AUTO DIFFERENTIAL Routine 04/10/2021 8:21 PM CDT ERYTHROCYTE SEDIMENTATION RATE Routine 04/10/2021 8:21 PM CDT CRP (ACUTE PHASE) Routine 04/10/2021 8:2 1 PM CDT DIFFERENTIAL AUTO Routine 04/09/2021 9:0 9 PM CDT CBC WITH AUTO DIFFERENTIAL Routine 04/09/2021 9:09 PM CDT PHOSPHORUS Routine 04/09/2021 9:09 PM CDT MAGNESIUM Routine 04/09/2021 9:09 PM CDT COMPREHENSIVE METABOLIC PANEL Routine 04/09/2021 9:09 PM CDT C. DIFFICILE TESTING Timed 04/09/2021 5:30 PM CDT VRE CULTURE, SURVEILLANCE Routine 04/09/2021 5:30 PM CDT URINALYSIS AND REFLEX TO MICROSCOPIC AND CULTURE STAT 04/09/2021 11:00 AM CDT URINALYSIS, MICROSCOPIC ONLY STAT 04/09/2021 11:00 AM CDT URINE CULTURE STAT 04/09/2021 11:00 AM CDT BLOOD CULTURE STAT 04/09/2021 9:11 AM CDT BLOOD CULTURE STAT 04/09/2021 9:11 AM CDT ERYTHROCYTE SEDIMENTATION RATE STAT 04/09/2021 9:11 AM CDT DIFFERENTIAL AUTO Routine 04/08/2021 8:5 1 PM CDT CBC WITH AUTO DIFFERENTIAL Routine 04/08/2021 8:51 PM CDT CRP (ACUTE PHASE) Routine 04/08/2021 8:5 1 PM CDT COMPREHENSIVE METABOLIC PANEL Routine 04/08/2021 8:51 PM CDT XR CHEST 1 VIEW ED Urgent/IP Urgent 04/08/2021 5:48 PM CDT TROPONIN I HIGH-SENSITIVITY STAT 04/08/2021 5:19 PM CDT ECG 12-LEAD STAT 04/08/2021 5:12 PM CDT POCT GLUCOSE DEVICE Routine 04/08/2021 4 :58 PM CDT DIFFERENTIAL AUTO Routine 04/07/2021 9:2 6 PM CDT CBC WITH AUTO DIFFERENTIAL Routine 04/07/2021 9:26 PM CDT COMPREHENSIVE METABOLIC PANEL Routine 04/07/2021 9:26 PM CDT CBC WITHOUT DIFFERENTIAL Timed 04/07/2021 9:03 AM CDT COMPREHENSIVE METABOLIC PANEL Timed 04/07/2021 9:03 AM CDT BLOOD CULTURE Routine 04/07/2021 12:01 AM CDT XR CHEST PA LATERAL 2 VIEWS IP Routine 04/06/2021 2:11 PM CDT VANCOMYCIN LEVEL TROUGH Timed 04/06/20 21 1:04 PM CDT ECG 12-LEAD STAT 04/06/2021 9:07 AM CDT POCT GLUCOSE DEVICE Routine 04/06/2021 8 :40 AM CDT XR CHEST 1 VIEW ED Urgent/IP Urgent 04/06/2021 4:02 AM CDT DIFFERENTIAL AUTO Routine 04/05/2021 10:36 PM CDT CBC WITH AUTO DIFFERENTIAL Routine 04/05/2021 10:36 PM CDT BLOOD CULTURE Routine 04/05/2021 10:36 PM CDT COMPREHENSIVE METABOLIC PANEL Routine 04/05/2021 10:36 PM CDT DIFFERENTIAL AUTO Routine 04/04/2021 9:0 1 PM CDT CBC WITH AUTO DIFFERENTIAL Routine 04/04/2021 9:01 PM CDT COMPREHENSIVE METABOLIC PANEL Routine 04/04/2021 9:01 PM CDT VANCOMYCIN LEVEL TROUGH Timed 04/04/20 21 1:16 PM CDT BLOOD CULTURE Routine 04/04/2021 10:00 AM CDT BLOOD CULTURE Timed 04/04/2021 9:51 AM CDT POCT GLUCOSE DEVICE Routine 04/04/2021 9 :16 AM CDT DIFFERENTIAL AUTO Routine 04/03/2021 9:5 3 PM CDT CBC WITH AUTO DIFFERENTIAL Routine 04/03/2021 9:53 PM CDT COMPREHENSIVE METABOLIC PANEL Routine 04/03/2021 9:53 PM CDT DIFFERENTIAL AUTO Routine 04/02/2021 9:3 1 PM CDT CBC WITH AUTO DIFFERENTIAL Routine 04/02/2021 9:31 PM CDT COMPREHENSIVE METABOLIC PANEL Routine 04/02/2021 9:31 PM CDT DIFFERENTIAL AUTO Routine 04/01/2021 9:3 2 PM CDT CBC WITH AUTO DIFFERENTIAL Routine 04/01/2021 9:32 PM CDT COMPREHENSIVE METABOLIC PANEL Routine 04/01/2021 9:32 PM CDT VANCOMYCIN LEVEL TROUGH STAT 04/01/20 21 2:33 AM CDT DIFFERENTIAL AUTO Routine 03/31/2021 10:53 PM CDT CBC WITH AUTO DIFFERENTIAL Routine 03/31/2021 10:53 PM CDT PROTIME-INR Routine 03/31/2021 10:53 PM CDT COMPREHENSIVE METABOLIC PANEL Routine 03/31/2021 10:53 PM CDT VANCOMYCIN LEVEL RANDOM Timed 03/31/20 21 4:31 PM CDT MYCOLOGY (FUNGAL) CULTURE Routine 03/31/2021 3:40 PM CDT AEROBIC AND ANAEROBIC CULTURE AND GRAM STAIN Routine 03/31/2021 3:40 PM CDT MYCOBACTERIOLOGY AFB CULTURE Routine 03/31/2021 3:40 PM CDT ASPIRATION OF ABSCESS HEMATOMA CYST IP Routine 03/31/2021 3:39 PM CDT C. DIFFICILE TESTING Routine 03/31/2021 12:40 PM CDT VRE CULTURE, SURVEILLANCE Routine 03/31/2021 12:40 PM CDT CRITICAL RESULT CALLBACK CHEMISTRY Timed 03/31/2021 3:17 AM CDT VANCOMYCIN LEVEL TROUGH Timed 03/31/20 3:17 AM CDT DIFFERENTIAL AUTO Routine 03/30/2021 8:4 3 PM CDT CBC WITH AUTO DIFFERENTIAL Routine 03/30/2021 8:43 PM CDT COMPREHENSIVE METABOLIC PANEL Routine 03/30/2021 8:43 PM CDT XR CHEST 1 VIEW ED Urgent/IP Urgent 03/30/2021 1:49 PM CDT ECG 12-LEAD Routine 03/30/2021 11:03 AM CDT CORTISOL Timed 03/30/2021 6:05 AM CDT BLOOD CULTURE Routine 03/30/2021 3:18 AM CDT VANCOMYCIN LEVEL TROUGH Timed 03/30/20 3:02 AM CDT US RUQ IP Routine 03/30/2021 2:00 AM CDT DIFFERENTIAL AUTO Routine 03/29/2021 10:04 PM CDT THYROID FUNCTION CASCADE Timed 03/29/2021 10:04 PM CDT CBC WITH AUTO DIFFERENTIAL Routine 03/29/2021 10:04 PM CDT APTT Timed 03/29/2021 10:04 PM CDT ERYTHROCYTE SEDIMENTATION RATE STAT 03/29/2021 10:04 PM CDT D-DIMER, QUANTITATIVE Timed 03/29/2021 10:04 PM CDT CRP (ACUTE PHASE) STAT 03/29/2021 10:04 PM CDT COMPREHENSIVE METABOLIC PANEL Routine 03/29/2021 10:04 PM CDT MRI SPINE TOTAL COMPLETE W WO CONTRAST ED Urgent/IP Urgent 03/29/2021 5:16 PM CDT XR SPINE LUMBAR 2 OR 3 VIEWS ED Urgent/IP Urgent 03/29/2021 2:34 PM CDT SODIUM, URINE, RANDOM Routine 03/29/2021 1:39 PM CDT OSMOLALITY, URINE Routine 03/29/2021 1:3 9 PM CDT XR CHEST 1 VIEW ED Urgent/IP Urgent 03/29/2021 12:09 PM CDT URINE CULTURE Routine 03/29/2021 4:45 AM CDT DIFFERENTIAL AUTO Routine 03/28/2021 10:11 PM CDT PRO B-TYPE NATRIURETIC PEPTIDE Timed 03/28/2021 10:11 PM CDT IRON PROFILE W/ IBC Timed 03/28/2021 10:11 PM CDT CBC WITH AUTO DIFFERENTIAL Routine 03/28/2021 10:11 PM CDT OSMOLALITY, BLOOD Timed 03/28/2021 10:11 PM CDT FOLATE Timed 03/28/2021 10:11 PM CDT FERRITIN Timed 03/28/2021 10:11 PM CDT VITAMIN B12 Timed 03/28/2021 10:11 PM CDT BILIRUBIN, DIRECT Routine 03/28/2021 10:11 PM CDT BASIC METABOLIC PANEL Routine 03/28/2021 10:[address] BODY OUTSIDE CONSULT Routine 03/28/20 6:36 PM CDT Diagnosis unknown URINALYSIS AND REFLEX TO MICROSCOPIC AND CULTURE Routine 03/28/2021 6:34 PM CDT BLOOD CULTURE Timed 03/28/2021 6:22 PM CDT LACTATE Routine 03/28/2021 5:47 PM CDT DIFFERENTIAL AUTO Routine 03/28/2021 5:4 7 PM CDT CBC WITH AUTO DIFFERENTIAL Routine 03/28/2021 5:47 PM CDT PROTIME-INR Routine 03/28/2021 5:47 PM CDT TYPE AND SCREEN Timed 03/28/2021 5:47 PM CDT PHOSPHORUS Routine 03/28/2021 5:47 PM CDT MAGNESIUM Routine 03/28/2021 5:47 PM CDT COMPREHENSIVE METABOLIC PANEL Routine 03/28/2021 5:47 PM CDT documented in this encounter Results * (ABNORMAL) Differential, auto (04/10/2021 8:21 PM CDT) Neutrophil abs 8.4(H) 1.7 - 6.5 K/cumm [facility] Imm gran abs 0.1 0.0 - 0.1 K/cumm [facility] Lymphocyte abs 1.6 0.8 - 3.3 K/cumm [facility] Monocyte abs 0.7 0.2 - 0.8 K/cumm [facility] Eosinophil abs 0.1 0.0 - 0.5 K/cumm [facility] Basophil abs 0.0 0.0 - 0.1 K/cumm [facility] Neutrophil pct 76.6 % [facility] Comment: Interpretive Data Percent cell count reference ranges are not reported, since discordance with absolute values may lead to misinterpretation of CBC data. Current Interpretive Data was last revised on 2018. Imm gran pct 1.1 % [facility] Comment: Interpretive Data Percent cell count reference ranges are not reported, since discordance with absolute values may lead to misinterpretation of CBC data. Current Interpretive Data was last revised on 2018. Lymphocyte pct 14.2 % [facility] Comment: Interpretive Data Percent cell count reference ranges are not reported, since discordance with absolute values may lead to misinterpretation of CBC data. Current Interpretive Data was last revised on 2018. Monocyte pct 6.7 % [facility] Comment: Interpretive Data Percent cell count reference ranges are not reported, since discordance with absolute values may lead to misinterpretation of CBC data. Current Interpretive Data was last revised on 2018. Eosinophil pct 1.0 % [facility] Comment: Interpretive Data Percent cell count reference ranges are not reported, since discordance with absolute values may lead to misinterpretation of CBC data. Current Interpretive Data was last revised on 2018. Basophil pct 0.4 % [facility] Comment: Interpretive Data Percent cell count reference ranges are not reported, since discordance with absolute values may lead to misinterpretation of CBC data. Current Interpretive Data was last revised on 2018. Blood specimen (specimen) 04/10/2021 8:21 PM CDT 04/10/2021 9:32 PM CDT us Darrian Aguilar MD LAB BLOOD ORDERABLES Fin al Result [facility] Department [place] [address] * (ABNORMAL) CRP (acute phase) (04/10/2021 8:21 PM CDT) CRP 162.1(H) <=10.0 mg/L [facility] Blood specimen (specimen) 04/10/2021 8:21 PM CDT 04/10/2021 9:32 PM CDT Fara Pisano MD LAB BLOOD ORDERABLES Final Result Performing Organization Address City/[facility]/ZIP Co de Phone Number [facility] [place] [address] * (ABNORMAL) Erythrocyte sedimentation rate (04/10/2021 8:21 PM CDT) [facility] Erythrocyte sedimentation rate 98(H) 1 - 15 mm/hr [facility] Blood specimen (specimen) 04/10/2021 8:21 PM CDT 04/10/2021 9:32 PM CDT Fara Pisano MD LAB BLOOD ORDERABLES Final Result Performing Organization Address [facility] Co de Phone Number [facility] [place] [address] * (ABNORMAL) CBC with auto differential (04/10/2021 8:21 PM CDT) [facility] WBC 11.0(H) 3.8 - 9.9 K/cumm [facility] Hgb 8.9(L) 13.0 - 17.5 g/dL [facility] Hct 27.7(L) 38.9 - 50.3 % [facility] Plt 365 150 - 400 K/cumm [facility] MPV 10.6 9.1 - 12.[address] [facility] RBC 3.27(L) 4.30 - 5.80 M/cumm [facility] MCV 84.7 81.3 - 96.[address] [facility] MCH 27.2 27.1 - 33.[address] [facility] MCHC 32.1(L) 32.3 - 35.7 g/dL [facility] RDW CV 15.6(H) 11.1 - 14.9 % [facility] RDW SD 48.1 35.7 - 48.[address] [facility] NRBC abs 0.00 0.00 - 0.01 K/cumm [facility] Blood specimen (specimen) 04/10/2021 8:21 PM CDT 04/10/2021 9:32 PM CDT Darrian Aguilar MD LAB BLOOD ORDERABLES Fin al Result Performing Organization Address City/[facility]/ZIP Co de Phone Number [facility] [place] [address] * Phosphorus (04/09/2021 9:09 PM CDT) Phosphorus, pl 3.8 2.3 - 4.5 mg/dL [facility] Blood specimen (specimen) 04/09/2021 9:09 PM CDT 04/09/2021 10:29 PM CDT us Fara Pisano MD LAB BLOOD ORDERABLES Final Result Performing Organization Address [facility] Co de Phone Number [facility] Department [place] [address] * Magnesium (04/09/2021 9:09 PM CDT) Pathologist [facility] Magnesium 1.9 1.4 - 2.5 mg/dL [facility] Blood specimen (specimen) 04/09/2021 9:09 PM CDT 04/09/2021 10:29 PM CDT Fara Pisano MD LAB BLOOD ORDERABLES Final Result Performing Organization Address City/[facility] Co de Phone Number [facility] Department [place] [address] * (ABNORMAL) Differential, auto (04/09/2021 9:09 PM CDT) Neutrophil abs 9.6(H) 1.7 - 6.5 K/cumm [facility] Imm gran abs 0.1 0.0 - 0.1 K/cumm [facility] Lymphocyte abs 1.7 0.8 - 3.3 K/cumm [facility] Monocyte abs 0.6 0.2 - 0.8 K/cumm [facility] Eosinophil abs 0.1 0.0 - 0.5 K/cumm [facility] Basophil abs 0.0 0.0 - 0.1 K/cumm [facility] Neutrophil pct 78.9 % [facility] Comment: Interpretive Data Percent cell count reference ranges are not reported, since discordance with absolute values may lead to misinterpretation of CBC data. Current Interpretive Data was last revised on 2018. Imm gran pct 1.1 % [facility] Comment: Interpretive Data Percent cell count reference ranges are not reported, since discordance with absolute values may lead to misinterpretation of CBC data. Current Interpretive Data was last revised on 2018. Lymphocyte pct 14.1 % [facility] Comment: Interpretive Data Percent cell count reference ranges are not reported, since discordance with absolute values may lead to misinterpretation of CBC data. Current Interpretive Data was last revised on 2018. Monocyte pct 5.1 % [facility] Comment: Interpretive Data Percent cell count reference ranges are not reported, since discordance with absolute values may lead to misinterpretation of CBC data. Current Interpretive Data was last revised on 2018. Eosinophil pct 0.6 % [facility] Comment: Interpretive Data Percent cell count reference ranges are not reported, since discordance with absolute values may lead to misinterpretation of CBC data. Current Interpretive Data was last revised on 2018. Basophil pct 0.2 % [facility] Comment: Interpretive Data Percent cell count reference ranges are not reported, since discordance with absolute values may lead to misinterpretation of CBC data. Current Interpretive Data was last revised on 2018. Blood specimen (specimen) 04/09/2021 9:09 PM CDT 04/09/2021 10:29 PM CDT us Darrian Aguilar MD LAB BLOOD ORDERABLES Fin al Result [facility] Department [place] [address] * (ABNORMAL) Comprehensive metabolic panel (04/09/2021 9:09 PM CDT) Sodium 132(L) 135 - 145 mmol/L [facility] Potassium, pl 4.6 3.3 - 4.9 mmol/L [facility] Chloride 100 97 - 110 mmol/L [facility] CO2 22 22 - 32 mmol/L [facility] Anion gap 10 2 - 15 mmol/L [facility] BUN 7(L) 8 - 25 mg/dL [facility] Creatinine 0.59(L) 0.80 - 1.30 mg/dL [facility] Glucose 99 70 - 199 mg/dL [facility] Comment: Interpretive Data Fasting glucose >/= [...] interpretive data was last revised 2017. Calcium 8.2(L) 8.5 - 10.3 mg/dL [facility] Bilirubin, total 0.4 0.1 - 1.2 mg/dL [facility] Protein, pl 6.7 6.5 - 8.5 g/dL [facility] Albumin 2.4(L) 3.5 - 5.0 g/dL [facility] Alk phos 88 40 - 130 Units/L [facility] ALT 40 7 - 55 Units/L [facility] AST 49 10 - 50 Units/L [facility] Blood specimen (specimen) 04/09/2021 9:09 PM CDT 04/09/2021 10:29 PM CDT Darrian Aguliar MD LAB BLOOD ORDERABLES Fin al Result [facility] [place] [address] * (ABNORMAL) CBC with auto differential (04/09/2021 9:09 PM CDT) WBC 12.2(H) 3.8 - 9.9 K/cumm [facility] Hgb 8.8(L) 13.0 - 17.5 g/dL [facility] Hct 27.8(L) 38.9 - 50.3 % [facility] Plt 387 150 - 400 K/cumm [facility] MPV 11.2 9.1 - 12.[address] [facility] RBC 3.23(L) 4.30 - 5.80 M/cumm [facility] MCV 86.1 81.3 - 96.[address] [facility] MCH 27.2 27.1 - 33.[address] [facility] MCHC 31.7(L) 32.3 - 35.7 g/dL [facility] RDW CV 15.7(H) 11.1 - 14.9 % [facility] RDW SD 49.3(H) 35.7 - 48.[address] [facility] NRBC abs 0.00 0.00 - 0.01 K/cumm [facility] Blood specimen (specimen) 04/09/2021 9:09 PM CDT 04/09/2021 10:29 PM CDT Darrian Aguilar MD LAB BLOOD ORDERABLES Fin al Result [facility] [place] [address] * (ABNORMAL) VRE culture, surveillance Stool (04/09/2021 5:30 PM CDT) Report Final Report: Enterococcus species, vancomycin resistant (.) [facility] Organism ENTEROCOCCUS SPECIES, VANCOMYCIN RESISTANT [facility] Stool 04/09/2021 5:30 PM CDT 04/09/2021 10:17 PM CDT Narrative [facility] - 04/11/2021 12:15 AM CDT Testing performed by [facility] ([phone]). Fara Brownlee-Jose Alfredo andrea MD LAB MICROBIOLOGY - GENERAL ORDERABLES Final Result Performing Organization Address City/[facility] Co de Phone Number [facility] [place] [address] * C. difficile testing Stool (04/09/2021 5:30 PM CDT) C. diff result Negative, free toxin Negative , free toxin [facility] C. diff interp Negative for toxigenic Clostridioides (Clostridium) difficile. Analysis was performed using an enzyme immunoassay that detects C. difficile toxin(s) in feces. [facility] Stool 04/09/2021 5:30 PM CDT 04/09/2021 6:30 PM CDT Fara Brownlee-Jose Alfredo andrea MD LAB MICROBIOLOGY - GENERAL ORDERABLES Final Result Performing Organization Address [facility] Co de Phone Number [facility] [place] [address] * Urine culture Urine, bladder (04/09/2021 11:00 AM CDT) Report Final Report: Less than 100,000 colonies/mL (clinically insignificant growth based on current clinical standards) [facility] Organism (CLINICALLY INSIGNIFICANT GROWTH [facility] Urine, bladder 04/09/2021 11 :00 AM CDT 04/09/2021 12:47 PM CDT Narrative [facility] - 04/10/2021 1:51 PM CDT Urine culture reflexed based upon urinalysis results. Testing performed by [facility] ([phone]) us Fara andrea MD LAB MICROBIOLOGY - GENERAL ORDERABLES Final Result Performing Organization Address City/[facility] Co de Phone Number [facility] [place] [address] * (ABNORMAL) Urinalysis, microscopic only (04/09/2021 11:00 AM CDT) WBC, ur 21-50(A) 0 - 5 /HPF [facility] RBC, ur 3-5(A) 0 - 2 /HPF [facility] Epithelial cells, squamous, ur 1-5 0 - 5 /HPF [facility] Bacteria, ur Trace(A) [facility] Mucous, ur Present(A) [facility] Culture Reflex Comment Reflex to urine culture will be performed. [facility] Urine, bladder 04/09/2021 11 :00 AM CDT 04/09/2021 11:24 AM CDT us Fara Pisano MD LAB URINE ORDERABLES Final Result Performing Organization Address [facility] Co de Phone Number [facility] [place] [address] * (ABNORMAL) Urinalysis reflex to microscopic and culture Urine, bladder (04/09/2021 11:00 AM CDT) Color, ur Yellow Yellow [facility] Clarity, ur Cloudy(A) Clear [facility] Specific gravity, ur 1.011 1.010 - 1.[address] [facility] pH, urine [address] [facility] Protein, ur ql 1+(A) Negative [facility] Glucose, ur ql Negative Negative [facility] Ketones, ur Negative Negative [facility] Bilirubin, ur Negative Negative [facility] Blood, ur 1+(A) Negative [facility] Urobilinogen, ur <2.0 <2.0 mg/dL [facility] Nitrite, ur Negative Negative [facility] Leukocyte esterase, ur 3+(A) Negative [facility] UA reflex comment Reflex to microscopic UA will be performed. [facility] Urine, bladder 04/09/2021 11 :00 AM CDT 04/09/2021 11:24 AM CDT [address] [facility] - 04/09/2021 11:37 AM CDT ?? Urine pH is affected by diet, medications, systemic acid-base disturbances, and renal tubular function. ??pH may affect urinary stone formation. ??For example, urine pH below 6.0 may help reduce the tendency for calcium phosphate stones and pH greater than 6.0 may reduce the tendency for uric acid stone formation. Source: [employer]. Last revised 11-18-2017 us Fara Brownlee-Jose Alfredo andrea MD LAB MICROBIOLOGY - GENERAL ORDERABLES Final Result [facility] [place] [address] * Blood culture Blood Hand, right (04/09/2021 9:11 AM CDT) Report Final Report: No growth [facility] Blood specimen (specimen) (Hand, right) 04/09/2021 9:11 AM CDT 04/09/2021 9:47 AM CDT Narrative [facility] - 04/13/2021 12:00 PM CDT 1. ?Blood cultures are incubated for 4 [...] organism identification may be performed using the Pathbriteigene Gram-Positive Blood Culture Assay. This assay detects microbial DNA in positive blood culture broth via hybridization of target DNA to capture oligonucleotides on a microarray. This assay has been cleared by the [place] Food and Drug Administration and its performance characteristics have been verified by the [facility]. 5. ?For questions about this culture, contact the Microbiology Laboratory at [phone]. Interpretive data was last revised on 2020. us Fara Brownlee-Jose Alfredo andrea MD LAB MICROBIOLOGY - GENERAL ORDERABLES Final Result [facility] [place] [address] * Blood culture Blood Peripheral inserted central cath (04/09/2021 9:11 AM CDT) Report Final Report: No growth [facility] Blood specimen (specimen) (Peripheral inserted central cath) 04/09/2021 9:11 AM CDT 04/09/2021 9:47 AM CDT Narrative [facility] - 04/13/2021 12:00 PM CDT 1. ?Blood cultures are incubated for 4 [...] organism identification may be performed using the Verigene Gram-Positive Blood Culture Assay. This assay detects microbial DNA in positive blood culture broth via hybridization of target DNA to capture oligonucleotides on a microarray. This assay has been cleared by the [place] Food and Drug Administration and its performance characteristics have been verified by the [facility]. 5. ?For questions about this culture, contact the Microbiology Laboratory at [phone]. Interpretive data was last revised on 2020. Fara andrea MD LAB MICROBIOLOGY - GENERAL ORDERABLES Final Result Performing Organization Address City/[facility]/ZIP Co de Phone Number [facility] [employer] [place] [place] [address] * (ABNORMAL) Erythrocyte sedimentation rate (04/09/2021 9:11 AM CDT) Pathologist [facility] Erythrocyte sedimentation rate 106(H) 1 - 15 mm/hr [facility] Blood specimen (specimen) 04/09/2021 9:11 AM CDT 04/09/2021 10:00 AM CDT Fara Pisano MD LAB BLOOD ORDERABLES Final Result Performing Organization Address City/[facility] Co de Phone Number [facility] Department of [employer] [place] [address] * (ABNORMAL) CRP (acute phase) (04/08/2021 8:51 PM CDT) Pathologist [facility] CRP 212.2(H) <=10.0 mg/L [facility] Blood specimen (specimen) 04/08/2021 8:51 PM CDT 04/08/2021 9:17 PM CDT Fara Pisano MD LAB BLOOD ORDERABLES Final Result Performing Organization Address City/[facility] Co de Phone Number [facility] Department of [employer] [place] [place] [address] * (ABNORMAL) Differential, auto (04/08/2021 8:51 PM CDT) Neutrophil abs 15.3(H) 1.7 - 6.5 K/cumm [facility] Imm gran abs 0.2(H) 0.0 - 0.1 K/cumm [facility] Lymphocyte abs 1.2 0.8 - 3.3 K/cumm [facility] Monocyte abs 0.8 0.2 - 0.8 K/cumm [facility] Eosinophil abs 0.0 0.0 - 0.5 K/cumm [facility] Basophil abs 0.0 0.0 - 0.1 K/cumm [facility] Neutrophil pct 86.9 % [facility] Comment: Interpretive Data Percent cell count reference ranges are not reported, since discordance with absolute values may lead to misinterpretation of CBC data. Current Interpretive Data was last revised on 2018. Imm gran pct 1.3 % [facility] Comment: Interpretive Data Percent cell count reference ranges are not reported, since discordance with absolute values may lead to misinterpretation of CBC data. Current Interpretive Data was last revised on 2018. Lymphocyte pct 7.0 % [facility] Comment: Interpretive Data Percent cell count reference ranges are not reported, since discordance with absolute values may lead to misinterpretation of CBC data. Current Interpretive Data was last revised on 2018. Monocyte pct 4.4 % [facility] Comment: Interpretive Data Percent cell count reference ranges are not reported, since discordance with absolute values may lead to misinterpretation of CBC data. Current Interpretive Data was last revised on 2018. Eosinophil pct 0.2 % [facility] Comment: Interpretive Data Percent cell count reference ranges are not reported, since discordance with absolute values may lead to misinterpretation of CBC data. Current Interpretive Data was last revised on 2018. Basophil pct 0.2 % [facility] Comment: Interpretive Data Percent cell count reference ranges are not reported, since discordance with absolute values may lead to misinterpretation of CBC data. Current Interpretive Data was last revised on 2018. Blood specimen (specimen) 04/08/2021 8:51 PM CDT 04/08/2021 9:17 PM CDT Darrian Aguilar MD LAB BLOOD ORDERABLES Fin al Result [facility] [place] [address] * (ABNORMAL) Comprehensive metabolic panel (04/08/2021 8:51 PM CDT) Sodium 132(L) 135 - 145 mmol/L [facility] Potassium, pl 4.4 3.3 - 4.9 mmol/L [facility] Chloride 99 97 - 110 mmol/L [facility] CO2 23 22 - 32 mmol/L [facility] Anion gap 10 2 - 15 mmol/L [facility] BUN 7(L) 8 - 25 mg/dL [facility] Creatinine 0.57(L) 0.80 - 1.30 mg/dL [facility] Glucose 101 70 - 199 mg/dL [facility] Comment: Interpretive Data Fasting glucose >/= [...] 2017. Calcium 8.8 8.5 - 10.3 mg/dL [facility] Bilirubin, total 0.7 0.1 - 1.2 mg/dL [facility] Protein, pl 7.3 6.5 - 8.5 g/dL [facility] Albumin 2.8(L) 3.5 - 5.0 g/dL [facility] Alk phos 92 40 - 130 Units/L [facility] ALT 40 7 - 55 Units/L [facility] AST 37 10 - 50 Units/L [facility] Blood specimen (specimen) 04/08/2021 8:51 PM CDT 04/08/2021 9:17 PM CDT Darrian Aguilar MD LAB BLOOD ORDERABLES Fin al Result Performing Organization Address [facility] Co de Phone Number [facility] Department [place] [address] * (ABNORMAL) CBC with auto differential (04/08/2021 8:51 PM CDT) Pathologist [facility] WBC 17.6(H) 3.8 - 9.9 K/cumm [facility] Hgb 9.5(L) 13.0 - 17.5 g/dL [facility] Hct 29.4(L) 38.9 - 50.3 % [facility] Plt 418(H) 150 - 400 K/cumm [facility] MPV 10.6 9.1 - 12.[address] [facility] RBC 3.52(L) 4.30 - 5.80 M/cumm [facility] MCV 83.5 81.3 - 96.[address] [facility] MCH 27.0(L) 27.1 - 33.[address] [facility] MCHC 32.3 32.3 - 35.7 g/dL [facility] RDW CV 15.7(H) 11.1 - 14.9 % [facility] RDW SD 47.9 35.7 - 48.[address] [facility] NRBC abs 0.00 0.00 - 0.01 K/cumm [facility] Blood specimen (specimen) 04/08/2021 8:51 PM CDT 04/08/2021 9:17 PM CDT Darrian Aguilar MD LAB BLOOD ORDERABLES Fin al Result Performing Organization Address [facility] Co de Phone Number [facility] Department [place] [address] * XR Chest 1 View (04/08/2021 5:48 PM CDT) Anatomical Region Laterality Modality Body, Chest N/A Computed Radiogr aphy 04/09/2021 7:07 AM CDT Impressions 04/09/2021 7:07 AM CDT Comparison is made to prior examination from 03/10/2021. No consolidation, effusion, or pneumothorax. Stable heart size. Electronically signed by: Suleman Frost M.D. Narrative 04/09/2021 7:07 AM CDT EXAMINATION: 1 view chest radiograph Procedure Note Suleman Frost MD - 04/09/2021 EXAMINATION: 1 view chest radiograph IMPRESSION: Comparison is made to prior examination from 03/10/2021. No consolidation, effusion, or pneumothorax. Stable heart size. Electronically signed by: Suleman Frost M.D. us Fara Pisano MD IMG XR PRO CEDURES Final Result * Troponin I high-sensitivity (04/08/2021 5:19 PM CDT) Pathologist [facility] Trop I hs <4 <=35 ng/L [facility] Comment: Interpretive Data For further hscTnI resources including the diagnostic algorithm and an aid in interpretation, copy and paste this link: [email or web address] Current Interpretive Data last revised 2020. Blood specimen (specimen) 04/08/2021 5:19 PM CDT 04/08/2021 5:50 PM CDT us Fara Pisano MD LAB BLOOD ORDERABLES Final Result [facility] Department [place] [address] * ECG 12 lead (04/08/2021 5:12 PM CDT) Ventricular Rate EKG/Min 86 BPM [facility] Atrial Rate [address] [facility] MT-Interval (MSEC) 182 ms [facility] QRS-Interval (MSEC) 100 ms [facility] QT-Interval (MSEC) 372 ms [facility] QTc 445 ms [facility] P [place] 25 degrees [facility] R [place] 14 degrees [facility] T [place] 5 degrees [facility] Diagnosis Normal sinus rhythm Nonspecific T wave abnormality Abnormal ECG When compared with ECG of 06-APR-2021 09:07, No significant change was found Confirmed by CARRINGTON GONZALES M.D ([id number]) on 04/09/2021 10:58:38 AM [facility] 04/08/2021 5:12 PM CDT 04/09/2021 10:58 AM CDT us Fara Pisano MD ECG ORDERA BLES Final Result [facility] * POCT glucose (04/08/2021 4:58 PM CDT) Pathologist [facility] Glucose, POC 96 70 - 199 mg/dL [facility] Blood specimen (specimen) 04/08/2021 4:58 PM CDT 04/08/2021 4:58 PM CDT Mary Hutchison MD LAB POCT ORDERABLES - DEVICE F inal Result Performing Organization Address City/[facility]/ZIP Co de Phone Number [facility] [place] [address] * (ABNORMAL) Differential, auto (04/07/2021 9:26 PM CDT) Neutrophil abs 10.3(H) 1.7 - 6.5 K/cumm [facility] Imm gran abs 0.2(H) 0.0 - 0.1 K/cumm [facility] Lymphocyte abs 1.9 0.8 - 3.3 K/cumm [facility] Monocyte abs 0.7 0.2 - 0.8 K/cumm [facility] Eosinophil abs 0.1 0.0 - 0.5 K/cumm [facility] Basophil abs 0.0 0.0 - 0.1 K/cumm [facility] Neutrophil pct 77.5 % [facility] Comment: Interpretive Data Percent cell count reference ranges are not reported, since discordance with absolute values may lead to misinterpretation of CBC data. Current Interpretive Data was last revised on 2018. Imm gran pct 1.7 % [facility] Comment: Interpretive Data Percent cell count reference ranges are not reported, since discordance with absolute values may lead to misinterpretation of CBC data. Current Interpretive Data was last revised on 2018. Lymphocyte pct 14.2 % [facility] Comment: Interpretive Data Percent cell count reference ranges are not reported, since discordance with absolute values may lead to misinterpretation of CBC data. Current Interpretive Data was last revised on 2018. Monocyte pct 5.5 % [facility] Comment: Interpretive Data Percent cell count reference ranges are not reported, since discordance with absolute values may lead to misinterpretation of CBC data. Current Interpretive Data was last revised on 2018. Eosinophil pct 0.8 % [facility] Comment: Interpretive Data Percent cell count reference ranges are not reported, since discordance with absolute values may lead to misinterpretation of CBC data. Current Interpretive Data was last revised on 2018. Basophil pct 0.3 % [facility] Comment: Interpretive Data Percent cell count reference ranges are not reported, since discordance with absolute values may lead to misinterpretation of CBC data. Current Interpretive Data was last revised on 2018. Blood specimen (specimen) 04/07/2021 9:26 PM CDT 04/07/2021 10:08 PM CDT us Darrian Aguilar MD LAB BLOOD ORDERABLES Fin al Result [facility] Department [place] [address] * (ABNORMAL) Comprehensive metabolic panel (04/07/2021 9:26 PM CDT) Sodium 132(L) 135 - 145 mmol/L [facility] Potassium, pl 4.0 3.3 - 4.9 mmol/L [facility] Chloride 102 97 - 110 mmol/L [facility] CO2 24 22 - 32 mmol/L [facility] Anion gap 6 2 - 15 mmol/L [facility] BUN 7(L) 8 - 25 mg/dL [facility] Creatinine 0.58(L) 0.80 - 1.30 mg/dL [facility] Glucose 103 70 - 199 mg/dL [facility] Comment: Interpretive Data Fasting glucose >/= [...] 2017. Calcium 8.6 8.5 - 10.3 mg/dL [facility] Bilirubin, total 0.6 0.1 - 1.2 mg/dL [facility] Protein, pl 6.9 6.5 - 8.5 g/dL [facility] Albumin 2.6(L) 3.5 - 5.0 g/dL [facility] Alk phos 83 40 - 130 Units/L [facility] ALT 40 7 - 55 Units/L [facility] AST 29 10 - 50 Units/L [facility] Blood specimen (specimen) 04/07/2021 9:26 PM CDT 04/07/2021 10:09 PM CDT us Darrian Aguilar MD LAB BLOOD ORDERABLES Fin al Result [facility] Department [place] [address] * (ABNORMAL) CBC with auto differential (04/07/2021 9:26 PM CDT) WBC 13.3(H) 3.8 - 9.9 K/cumm [facility] Hgb 9.2(L) 13.0 - 17.5 g/dL [facility] Hct 28.7(L) 38.9 - 50.3 % [facility] Plt 410(H) 150 - 400 K/cumm [facility] MPV 10.8 9.1 - 12.[address] [facility] RBC 3.42(L) 4.30 - 5.80 M/cumm [facility] MCV 83.9 81.3 - 96.[address] [facility] MCH 26.9(L) 27.1 - 33.[address] [facility] MCHC 32.1(L) 32.3 - 35.7 g/dL [facility] RDW CV 15.7(H) 11.1 - 14.9 % [facility] RDW SD 48.1 35.7 - 48.[address] [facility] NRBC abs 0.00 0.00 - 0.01 K/cumm [facility] Blood specimen (specimen) 04/07/2021 9:26 PM CDT 04/07/2021 10:08 PM CDT us Darrian Aguilar MD LAB BLOOD ORDERABLES Fin al Result [facility] Department [place] [address] * (ABNORMAL) Comprehensive metabolic panel (04/07/2021 9:03 AM CDT) Sodium 131(L) 135 - 145 mmol/L [facility] Potassium, pl 4.0 3.3 - 4.9 mmol/L [facility] Chloride 98 97 - 110 mmol/L [facility] CO2 24 22 - 32 mmol/L [facility] Anion gap 9 2 - 15 mmol/L [facility] BUN 7(L) 8 - 25 mg/dL [facility] Creatinine 0.59(L) 0.80 - 1.30 mg/dL [facility] Glucose 89 70 - 199 mg/dL [facility] Comment: Interpretive Data Fasting glucose >/= [...] interpretive data was last revised 2017. Calcium 8.1(L) 8.5 - 10.3 mg/dL [facility] Bilirubin, total 0.6 0.1 - 1.2 mg/dL [facility] Protein, pl 6.6 6.5 - 8.5 g/dL [facility] Albumin 2.8(L) 3.5 - 5.0 g/dL [facility] Alk phos 85 40 - 130 Units/L [facility] ALT 47 7 - 55 Units/L [facility] AST 39 10 - 50 Units/L [facility] Blood specimen (specimen) 04/07/2021 9:03 AM CDT 04/07/2021 10:37 AM CDT us Mary Hutchison MD LAB BLOOD ORDERABLES Final Res ult [facility] [place] [address] * (ABNORMAL) CBC without differential (04/07/2021 9:03 AM CDT) WBC 15.9(H) 3.8 - 9.9 K/cumm [facility] Hgb 9.1(L) 13.0 - 17.5 g/dL [facility] Hct 27.7(L) 38.9 - 50.3 % [facility] Plt 430(H) 150 - 400 K/cumm [facility] MPV 11.1 9.1 - 12.[address] [facility] RBC 3.26(L) 4.30 - 5.80 M/cumm [facility] MCV 85.0 81.3 - 96.[address] [facility] MCH 27.9 27.1 - 33.[address] [facility] MCHC 32.9 32.3 - 35.7 g/dL [facility] RDW CV 15.8(H) 11.1 - 14.9 % [facility] RDW SD 49.4(H) 35.7 - 48.[address] [facility] NRBC abs 0.00 0.00 - 0.01 K/cumm [facility] Blood specimen (specimen) 04/07/2021 9:03 AM CDT 04/07/2021 10:37 AM CDT us Mary Hutchison MD LAB BLOOD ORDERABLES Final Res ult [facility] [place] [address] * Blood culture Blood Antecubital, right (04/07/2021 12:01 AM CDT) Report Final Report: No growth [facility] Blood specimen (specimen) (Antecubital, right) 04/07/2021 12:01 AM CDT 04/07/2021 12:58 AM CDT Narrative [facility] - 04/11/2021 7:00 AM CDT 1. ?Blood cultures are incubated for 4 [...] organism identification may be performed using the Pathbriteigene Gram-Positive Blood Culture Assay. This assay detects microbial DNA in positive blood culture broth via hybridization of target DNA to capture oligonucleotides on a microarray. This assay has been cleared by the [place] Food and Drug Administration and its performance characteristics have been verified by the [facility]. 5. ?For questions about this culture, contact the Microbiology Laboratory at [phone]. Interpretive data was last revised on 2020. Mary Hutchison MD LAB MICROBIOLOGY - GENERAL ORD ERABLES Final Result [facility] [place] [address] * XR Chest Pa Lateral 2 Views (04/06/2021 2:11 PM CDT) Anatomical Region Laterality Modality Body, Chest N/A Computed Radiogr aphy 04/06/2021 3:34 PM CDT Impressions 04/06/2021 3:34 PM CDT Comparison is made to prior study of [...] cava. Electronically signed by: Austen Garcia M.D. [facility] 04/06/2021 3:34 PM CDT EXAMINATION: 2 view chest radiograph Procedure Note Austen Garcia MD - 04/06/2021 EXAMINATION: 2 view chest radiograph IMPRESSION: Comparison is made to prior study of [...] cava. Electronically signed by: Austen Garcia M.D. Mary Hutchison MD IMG XR PROCEDURES Final Result * Vancomycin level trough (04/06/2021 1:04 PM CDT) Pathologist [facility] Vancomycin trough 14.6 10.0 - 20.0 mcg/mL [facility] Blood specimen (specimen) 04/06/2021 1:04 PM CDT 04/06/2021 2:28 PM CDT Mary Hutchison MD LAB BLOOD ORDERABLES Final Res ult [facility] [place] [address] * ECG 12 lead (04/06/2021 9:07 AM CDT) Ventricular Rate EKG/Min 82 BPM [facility] Atrial Rate 82 BPM [facility] MT-Interval (MSEC) [address] [facility] QRS-Interval (MSEC) [address] [facility] QT-Interval (MSEC) [address] [facility] QTc [address] [facility] P [place] [address] [facility] R [place] [address] [facility] T [place] -[address] [facility] Diagnosis Normal sinus rhythm Nonspecific T wave abnormality Prolonged QT Abnormal ECG When compared with ECG of 30-MAR-2021 11:03, QT has lengthened Confirmed by PIPPA VIVAS M.D ([id number]) on 04/08/2021 3:02:25 PM [facility] 04/06/2021 9:07 AM CDT 04/08/2021 3:02 PM CDT us Mary Hutchison MD ECG ORDERABLES Final Result Performing Organization Address City/[facility]/ZIP Co de Phone Number [facility] * POCT glucose (04/06/2021 8:40 AM CDT) Glucose, POC 92 70 - 199 mg/dL [facility] Blood specimen (specimen) 04/06/2021 8:40 AM CDT 04/06/2021 8:40 AM CDT Mary Hutchison MD LAB POCT ORDERABLES - DEVICE F inal Result [facility] [place] [address] * XR Chest 1 View (04/06/2021 4:02 AM CDT) Anatomical Region Laterality Modality Body, Chest N/A Computed Radiogr aphy 04/06/2021 7:07 AM CDT Impressions 04/06/2021 7:07 AM CDT The tip of the PICC is not well visualized due to underpenetration but appears to project near the midline, likely within the left brachiocephalic vein. Lung volumes are small and there is mild right basilar atelectasis. No pleural effusion or pneumothorax. ??Heart and mediastinum are unchanged. Electronically signed by: Scott Aleman M.D. Narrative 04/06/2021 7:07 AM CDT EXAMINATION: 1 view chest radiograph COMPARISON: 03/30/2021 INDICATION: double check PICC position Procedure Note Scott Aleman MD - 04/06/2021 EXAMINATION: 1 view chest radiograph COMPARISON: 03/30/2021 INDICATION: double check PICC position IMPRESSION: The tip of the PICC is not well visualized due to underpenetration but appears to project near the midline, likely within the left brachiocephalic vein. Lung volumes are small and there is mild right basilar atelectasis. No pleural effusion or pneumothorax. Heart and mediastinum are unchanged. Electronically signed by: Scott Aleman M.D. Alvin Golden MD IMG XR PROCEDURES Final Result * (ABNORMAL) Differential, auto (04/05/2021 10:36 PM CDT) Neutrophil abs 10.8(H) 1.7 - 6.5 K/cumm [facility] Imm gran abs 0.5(H) 0.0 - 0.1 K/cumm [facility] Lymphocyte abs 1.9 0.8 - 3.3 K/cumm [facility] Monocyte abs 0.5 0.2 - 0.8 K/cumm [facility] Eosinophil abs 0.1 0.0 - 0.5 K/cumm [facility] Basophil abs 0.1 0.0 - 0.1 K/cumm [facility] Neutrophil pct 78.0 % [facility] Comment: Interpretive Data Percent cell count reference ranges are not reported, since discordance with absolute values may lead to misinterpretation of CBC data. Current Interpretive Data was last revised on 2018. Imm gran pct 3.6 % [facility] Comment: Interpretive Data Percent cell count reference ranges are not reported, since discordance with absolute values may lead to misinterpretation of CBC data. Current Interpretive Data was last revised on 2018. Lymphocyte pct 13.8 % [facility] Comment: Interpretive Data Percent cell count reference ranges are not reported, since discordance with absolute values may lead to misinterpretation of CBC data. Current Interpretive Data was last revised on 2018. Monocyte pct 3.7 % [facility] Comment: Interpretive Data Percent cell count reference ranges are not reported, since discordance with absolute values may lead to misinterpretation of CBC data. Current Interpretive Data was last revised on 2018. Eosinophil pct 0.5 % [facility] Comment: Interpretive Data Percent cell count reference ranges are not reported, since discordance with absolute values may lead to misinterpretation of CBC data. Current Interpretive Data was last revised on 2018. Basophil pct 0.4 % [facility] Comment: Interpretive Data Percent cell count reference ranges are not reported, since discordance with absolute values may lead to misinterpretation of CBC data. Current Interpretive Data was last revised on 2018. Blood specimen (specimen) 04/05/2021 10:36 PM CDT 04/05/2021 11:36 PM CDT us Darrian Aguilar MD LAB BLOOD ORDERABLES Fin al Result [facility] [place] [address] * Blood culture Blood Hand, right (04/05/2021 10:36 PM CDT) Report Final Report: No growth [facility] Blood specimen (specimen) (Hand, right) 04/05/2021 10:36 PM CDT 04/06/2021 12:06 AM CDT Narrative [facility] - 04/10/2021 7:00 AM CDT 1. ?Blood cultures are incubated for 4 [...] organism identification may be performed using the Pathbriteigene Gram-Positive Blood Culture Assay. This assay detects microbial DNA in positive blood culture broth via hybridization of target DNA to capture oligonucleotides on a microarray. This assay has been cleared by the [place] Food and Drug Administration and its performance characteristics have been verified by the [facility]. 5. ?For questions about this culture, contact the Microbiology Laboratory at [phone]. Interpretive data was last revised on 2020. Mary Hutchison MD LAB MICROBIOLOGY - GENERAL ORD ERABLES Final Result [facility] [place] [address] * (ABNORMAL) Comprehensive metabolic panel (04/05/2021 10:36 PM CDT) [facility] Sodium 133(L) 135 - 145 mmol/L [facility] Potassium, pl 4.6 3.3 - 4.9 mmol/L [facility] Chloride 101 97 - 110 mmol/L [facility] CO2 21(L) 22 - 32 mmol/L [facility] Anion gap 11 2 - 15 mmol/L [facility] BUN 7(L) 8 - 25 mg/dL [facility] Creatinine 0.57(L) 0.80 - 1.30 mg/dL [facility] Glucose 97 70 - 199 mg/dL [facility] Comment: Interpretive Data Fasting glucose >/= [...] 2017. Calcium 8.5 8.5 - 10.3 mg/dL [facility] Bilirubin, total 0.7 0.1 - 1.2 mg/dL [facility] Protein, pl 6.7 6.5 - 8.5 g/dL [facility] Albumin 2.4(L) 3.5 - 5.0 g/dL [facility] Alk phos 90 40 - 130 Units/L [facility] ALT 63(H) 7 - 55 Units/L [facility] AST 66(H) 10 - 50 Units/L [facility] Blood specimen (specimen) 04/05/2021 10:36 PM CDT 04/05/2021 11:37 PM CDT us Darrian Aguilar MD LAB BLOOD ORDERABLES Fin al Result [facility] [place] [address] * (ABNORMAL) CBC with auto differential (04/05/2021 10:36 PM CDT) [facility] WBC 13.9(H) 3.8 - 9.9 K/cumm [facility] Hgb 8.6(L) 13.0 - 17.5 g/dL [facility] Hct 26.3(L) 38.9 - 50.3 % [facility] Plt 325 150 - 400 K/cumm [facility] MPV 11.6 9.1 - 12.[address] [facility] RBC 3.08(L) 4.30 - 5.80 M/cumm [facility] MCV 85.4 81.3 - 96.[address] [facility] MCH 27.9 27.1 - 33.[address] [facility] MCHC 32.7 32.3 - 35.7 g/dL [facility] RDW CV 16.3(H) 11.1 - 14.9 % [facility] RDW SD 51.2(H) 35.7 - 48.[address] [facility] NRBC abs 0.00 0.00 - 0.01 K/cumm [facility] Blood specimen (specimen) 04/05/2021 10:36 PM CDT 04/05/2021 11:36 PM CDT us Darrian Aguilar MD LAB BLOOD ORDERABLES Fin al Result [facility] [place] [address] * (ABNORMAL) Differential, auto (04/04/2021 9:01 PM CDT) [facility] Neutrophil abs 13.0(H) 1.7 - 6.5 K/cumm [facility] Imm gran abs 0.7(H) 0.0 - 0.1 K/cumm [facility] Lymphocyte abs 2.1 0.8 - 3.3 K/cumm [facility] Monocyte abs 0.8 0.2 - 0.8 K/cumm [facility] Eosinophil abs 0.2 0.0 - 0.5 K/cumm [facility] Basophil abs 0.0 0.0 - 0.1 K/cumm [facility] Neutrophil pct 77.6 % [facility] Comment: Interpretive Data Percent cell count reference ranges are not reported, since discordance with absolute values may lead to misinterpretation of CBC data. Current Interpretive Data was last revised on 2018. Imm gran pct 4.1 % [facility] Comment: Interpretive Data Percent cell count reference ranges are not reported, since discordance with absolute values may lead to misinterpretation of CBC data. Current Interpretive Data was last revised on 2018. Lymphocyte pct 12.4 % [facility] Comment: Interpretive Data Percent cell count reference ranges are not reported, since discordance with absolute values may lead to misinterpretation of CBC data. Current Interpretive Data was last revised on 2018. Monocyte pct 4.7 % [facility] Comment: Interpretive Data Percent cell count reference ranges are not reported, since discordance with absolute values may lead to misinterpretation of CBC data. Current Interpretive Data was last revised on 2018. Eosinophil pct 1.0 % [facility] Comment: Interpretive Data Percent cell count reference ranges are not reported, since discordance with absolute values may lead to misinterpretation of CBC data. Current Interpretive Data was last revised on 2018. Basophil pct 0.2 % [facility] Comment: Interpretive Data Percent cell count reference ranges are not reported, since discordance with absolute values may lead to misinterpretation of CBC data. Current Interpretive Data was last revised on 2018. Blood specimen (specimen) 04/04/2021 9:01 PM CDT 04/04/2021 10:26 PM CDT us Darrian Aguilar MD LAB BLOOD ORDERABLES Fin al Result [facility] Department [place] [address] * (ABNORMAL) Comprehensive metabolic panel (04/04/2021 9:01 PM CDT) Sodium 133(L) 135 - 145 mmol/L [facility] Potassium, pl 4.3 3.3 - 4.9 mmol/L [facility] Chloride 103 97 - 110 mmol/L [facility] CO2 21(L) 22 - 32 mmol/L [facility] Anion gap 9 2 - 15 mmol/L [facility] BUN 7(L) 8 - 25 mg/dL [facility] Creatinine 0.53(L) 0.80 - 1.30 mg/dL [facility] Glucose 96 70 - 199 mg/dL [facility] Comment: Interpretive Data Fasting glucose >/= [...] 2017. Calcium 8.5 8.5 - 10.3 mg/dL [facility] Bilirubin, total 0.7 0.1 - 1.2 mg/dL [facility] Protein, pl 6.7 6.5 - 8.5 g/dL [facility] Albumin 2.4(L) 3.5 - 5.0 g/dL [facility] Alk phos 88 40 - 130 Units/L [facility] ALT 61(H) 7 - 55 Units/L [facility] AST 46 10 - 50 Units/L [facility] Blood specimen (specimen) 04/04/2021 9:01 PM CDT 04/04/2021 10:26 PM CDT us Darrian Aguilar MD LAB BLOOD ORDERABLES Fin al Result [facility] Department [place] [address] * (ABNORMAL) CBC with auto differential (04/04/2021 9:01 PM CDT) WBC 16.8(H) 3.8 - 9.9 K/cumm [facility] Hgb 9.4(L) 13.0 - 17.5 g/dL [facility] Hct 29.1(L) 38.9 - 50.3 % [facility] Plt 441(H) 150 - 400 K/cumm [facility] MPV 11.6 9.1 - 12.[address] [facility] RBC 3.42(L) 4.30 - 5.80 M/cumm [facility] MCV 85.1 81.3 - 96.[address] [facility] MCH 27.5 27.1 - 33.[address] [facility] MCHC 32.3 32.3 - 35.7 g/dL [facility] RDW CV 16.5(H) 11.1 - 14.9 % [facility] RDW SD 51.7(H) 35.7 - 48.[address] [facility] NRBC abs 0.00 0.00 - 0.01 K/cumm [facility] Blood specimen (specimen) 04/04/2021 9:01 PM CDT 04/04/2021 10:26 PM CDT us Darrian Aguilar MD LAB BLOOD ORDERABLES Fin al Result Performing Organization Address City/[facility] Co de Phone Number [facility] Department [place] [employer] [place] [place] [address] * (ABNORMAL) Vancomycin level trough (04/04/2021 1:16 PM CDT) Pathologist [facility] Vancomycin trough 8.7(L) 10.0 - 20.0 mcg/mL [facility] Blood specimen (specimen) 04/04/2021 1:16 PM CDT 04/04/2021 1:59 PM CDT us Mray Hutchison MD LAB BLOOD ORDERABLES Final Res ult Performing Organization Address City/[facility]/ZIP Co de Phone Number [facility] [place] [address] * Blood culture Blood Hand, left (04/04/2021 10:00 AM CDT) Report Final Report: No growth UJAN RONQUILLO Blood specimen (specimen) (Hand, left) 04/04/2021 10:00 AM CDT 04/04/2021 10:57 AM CDT Narrative JUAN OLIVIA - 04/08/2021 12:01 PM CDT From a different site than #1. 1. ?Blood cultures are incubated for 4 [...] organism identification may be performed using the Pathbriteig[employer] Gram-Positive Blood Culture Assay. This assay detects microbial DNA in positive blood culture broth via hybridization of target DNA to capture oligonucleotides on a microarray. This assay has been cleared by the [place] Food and Drug Administration and its performance characteristics have been verified by the [facility]. 5. ?For questions about this culture, contact the Microbiology Laboratory at [phone]. Interpretive data was last revised on 2020. us Mary Hutchison MD LAB MICROBIOLOGY - GENERAL ORD ERABLES Final Result JUAN RONQUILL[facility] Department [place] [address] * Blood culture Blood Hand, right (04/04/2021 9:51 AM CDT) Report Final Report: No growth [facility] Blood specimen (specimen) (Hand, right) 04/04/2021 9:51 AM CDT 04/04/2021 10:57 AM CDT Luna OLIVIA - 04/08/2021 12:01 PM CDT 1. ?Blood cultures are incubated for 4 [...] organism identification may be performed using the Pathbr[employer]ig[employer] Gram-Positive Blood Culture Assay. This assay detects microbial DNA in positive blood culture broth via hybridization of target DNA to capture oligonucleotides on a microarray. This assay has been cleared by the [place] Food and Drug Administration and its performance characteristics have been verified by the [facility]. 5. ?For questions about this culture, contact the Microbiology Laboratory at [phone]. Interpretive data was last revised on 2020. us Mary Hutchison MD LAB MICROBIOLOGY - GENERAL ORD ERABLES Final Result [facility] Department [place] [address] * POCT glucose (04/04/2021 9:16 AM CDT) Glucose, POC 114 70 - 199 mg/dL [facility] Blood specimen (specimen) 04/04/2021 9:16 AM CDT 04/04/2021 9:16 AM CDT us Mary Hutchison MD LAB POCT ORDERABLES - DEVICE F inal Result [facility] [place] [address] * (ABNORMAL) Differential, auto (04/03/2021 9:53 PM CDT) Neutrophil abs 14.1(H) 1.7 - 6.5 K/cumm [facility] Imm gran abs 1.1(H) 0.0 - 0.1 K/cumm [facility] Lymphocyte abs 2.2 0.8 - 3.3 K/cumm [facility] Monocyte abs 0.9(H) 0.2 - 0.8 K/cumm [facility] Eosinophil abs 0.1 0.0 - 0.5 K/cumm [facility] Basophil abs 0.1 0.0 - 0.1 K/cumm [facility] Neutrophil pct 76.5 % [facility] Comment: Interpretive Data Percent cell count reference ranges are not reported, since discordance with absolute values may lead to misinterpretation of CBC data. Current Interpretive Data was last revised on 2018. Imm gran pct 5.9 % [facility] Comment: Interpretive Data Percent cell count reference ranges are not reported, since discordance with absolute values may lead to misinterpretation of CBC data. Current Interpretive Data was last revised on 2018. Lymphocyte pct 11.6 % [facility] Comment: Interpretive Data Percent cell count reference ranges are not reported, since discordance with absolute values may lead to misinterpretation of CBC data. Current Interpretive Data was last revised on 2018. Monocyte pct 5.1 % [facility] Comment: Interpretive Data Percent cell count reference ranges are not reported, since discordance with absolute values may lead to misinterpretation of CBC data. Current Interpretive Data was last revised on 2018. Eosinophil pct 0.4 % [facility] Comment: Interpretive Data Percent cell count reference ranges are not reported, since discordance with absolute values may lead to misinterpretation of CBC data. Current Interpretive Data was last revised on 2018. Basophil pct 0.5 % [facility] Comment: Interpretive Data Percent cell count reference ranges are not reported, since discordance with absolute values may lead to misinterpretation of CBC data. Current Interpretive Data was last revised on 2018. Blood specimen (specimen) 04/03/2021 9:53 PM CDT 04/03/2021 10:22 PM CDT Darrian Aguilar MD LAB BLOOD ORDERABLES Fin al Result [facility] [place] [address] * (ABNORMAL) Comprehensive metabolic panel (04/03/2021 9:53 PM CDT) Sodium 134(L) 135 - 145 mmol/L [facility] Potassium, pl 4.2 3.3 - 4.9 mmol/L [facility] Chloride 103 97 - 110 mmol/L [facility] CO2 20(L) 22 - 32 mmol/L [facility] Anion gap 11 2 - 15 mmol/L [facility] BUN 9 8 - 25 mg/dL [facility] Creatinine 0.67(L) 0.80 - 1.30 mg/dL [facility] Glucose 114 70 - 199 mg/dL [facility] Comment: Interpretive Data Fasting glucose >/= [...] 2017. Calcium 8.4(L) 8.5 - 10.3 mg/dL [facility] Bilirubin, total 0.7 0.1 - 1.2 mg/dL [facility] Protein, pl 6.7 6.5 - 8.5 g/dL [facility] Albumin 2.4(L) 3.5 - 5.0 g/dL [facility] Alk phos 105 40 - 130 Units/L [facility] ALT 88(H) 7 - 55 Units/L [facility] AST 97(H) 10 - 50 Units/L [facility] Blood specimen (specimen) 04/03/2021 9:53 PM CDT 04/03/2021 10:22 PM CDT us Darrian Aguilar MD LAB BLOOD ORDERABLES Fin al Result [facility] [place] [address] * (ABNORMAL) CBC with auto differential (04/03/2021 9:53 PM CDT) WBC 18.5(H) 3.8 - 9.9 K/cumm [facility] Hgb 9.6(L) 13.0 - 17.5 g/dL [facility] Hct 29.1(L) 38.9 - 50.3 % [facility] Plt 438(H) 150 - 400 K/cumm [facility] MPV 11.4 9.1 - 12.[address] [facility] RBC 3.44(L) 4.30 - 5.80 M/cumm [facility] MCV 84.6 81.3 - 96.[address] [facility] MCH 27.9 27.1 - 33.[address] [facility] MCHC 33.0 32.3 - 35.7 g/dL [facility] RDW CV 16.8(H) 11.1 - 14.9 % [facility] RDW SD 51.8(H) 35.7 - 48.[address] [facility] NRBC abs 0.00 0.00 - 0.01 K/cumm [facility] Blood specimen (specimen) 04/03/2021 9:53 PM CDT 04/03/2021 10:22 PM CDT us Darrian Aguilar MD LAB BLOOD ORDERABLES Fin al Result [facility] [place] [address] * (ABNORMAL) Differential, auto (04/02/2021 9:31 PM CDT) Neutrophil abs 14.3(H) 1.7 - 6.5 K/cumm [facility] Imm gran abs 1.0(H) 0.0 - 0.1 K/cumm [facility] Lymphocyte abs 1.9 0.8 - 3.3 K/cumm [facility] Monocyte abs 0.8 0.2 - 0.8 K/cumm [facility] Eosinophil abs 0.1 0.0 - 0.5 K/cumm [facility] Basophil abs 0.0 0.0 - 0.1 K/cumm [facility] Neutrophil pct 79.2 % [facility] Comment: Interpretive Data Percent cell count reference ranges are not reported, since discordance with absolute values may lead to misinterpretation of CBC data. Current Interpretive Data was last revised on 2018. Imm gran pct 5.3 % [facility] Comment: Interpretive Data Percent cell count reference ranges are not reported, since discordance with absolute values may lead to misinterpretation of CBC data. Current Interpretive Data was last revised on 2018. Lymphocyte pct 10.5 % [facility] Comment: Interpretive Data Percent cell count reference ranges are not reported, since discordance with absolute values may lead to misinterpretation of CBC data. Current Interpretive Data was last revised on 2018. Monocyte pct 4.5 % [facility] Comment: Interpretive Data Percent cell count reference ranges are not reported, since discordance with absolute values may lead to misinterpretation of CBC data. Current Interpretive Data was last revised on 2018. Eosinophil pct 0.3 % [facility] Comment: Interpretive Data Percent cell count reference ranges are not reported, since discordance with absolute values may lead to misinterpretation of CBC data. Current Interpretive Data was last revised on 2018. Basophil pct 0.2 % [facility] Comment: Interpretive Data Percent cell count reference ranges are not reported, since discordance with absolute values may lead to misinterpretation of CBC data. Current Interpretive Data was last revised on 2018. Blood specimen (specimen) 04/02/2021 9:31 PM CDT 04/02/2021 10:28 PM CDT us Darrian Aguilar MD LAB BLOOD ORDERABLES Fin al Result [facility] [place] [address] * (ABNORMAL) Comprehensive metabolic panel (04/02/2021 9:31 PM CDT) Sodium 132(L) 135 - 145 mmol/L [facility] Potassium, pl 4.2 3.3 - 4.9 mmol/L [facility] Chloride 103 97 - 110 mmol/L [facility] CO2 18(L) 22 - 32 mmol/L [facility] Anion gap 11 2 - 15 mmol/L [facility] BUN 8 8 - 25 mg/dL [facility] Creatinine 0.63(L) 0.80 - 1.30 mg/dL [facility] Glucose 110 70 - 199 mg/dL [facility] Comment: Interpretive Data Fasting glucose >/= [...] 2017. Calcium 8.8 8.5 - 10.3 mg/dL [facility] Bilirubin, total 1.0 0.1 - 1.2 mg/dL [facility] Protein, pl 6.8 6.5 - 8.5 g/dL [facility] Albumin 2.7(L) 3.5 - 5.0 g/dL [facility] Alk phos 95 40 - 130 Units/L [facility] ALT 78(H) 7 - 55 Units/L [facility] AST 78(H) 10 - 50 Units/L [facility] Blood specimen (specimen) 04/02/2021 9:31 PM CDT 04/02/2021 10:27 PM CDT Darrian Aguilar MD LAB BLOOD ORDERABLES Fin al Result Performing Organization Address [facility] de Phone Number [facility] [place] [address] * (ABNORMAL) CBC with auto differential (04/02/2021 9:31 PM CDT) Pathologist [facility] WBC 18.1(H) 3.8 - 9.9 K/cumm [facility] Hgb 9.8(L) 13.0 - 17.5 g/dL [facility] Hct 30.2(L) 38.9 - 50.3 % [facility] Plt 411(H) 150 - 400 K/cumm [facility] MPV 11.2 9.1 - 12.[address] [facility] RBC 3.59(L) 4.30 - 5.80 M/cumm [facility] MCV 84.1 81.3 - 96.[address] [facility] MCH 27.3 27.1 - 33.[address] [facility] MCHC 32.5 32.3 - 35.7 g/dL [facility] RDW CV 16.9(H) 11.1 - 14.9 % [facility] RDW SD 52.3(H) 35.7 - 48.[address] [facility] NRBC abs 0.00 0.00 - 0.01 K/cumm [facility] Blood specimen (specimen) 04/02/2021 9:31 PM CDT 04/02/2021 10:28 PM CDT Darrian Aguilar MD LAB BLOOD ORDERABLES Fin al Result [facility] [place] [address] * (ABNORMAL) Differential, auto (04/01/2021 9:32 PM CDT) Neutrophil abs 13.0(H) 1.7 - 6.5 K/cumm [facility] Imm gran abs 1.1(H) 0.0 - 0.1 K/cumm [facility] Lymphocyte abs 1.8 0.8 - 3.3 K/cumm [facility] Monocyte abs 0.9(H) 0.2 - 0.8 K/cumm [facility] Eosinophil abs 0.2 0.0 - 0.5 K/cumm [facility] Basophil abs 0.1 0.0 - 0.1 K/cumm [facility] Neutrophil pct 76.2 % [facility] Comment: Interpretive Data Percent cell count reference ranges are not reported, since discordance with absolute values may lead to misinterpretation of CBC data. Current Interpretive Data was last revised on 2018. Imm gran pct 6.6 % [facility] Comment: Interpretive Data Percent cell count reference ranges are not reported, since discordance with absolute values may lead to misinterpretation of CBC data. Current Interpretive Data was last revised on 2018. Lymphocyte pct 10.5 % [facility] Comment: Interpretive Data Percent cell count reference ranges are not reported, since discordance with absolute values may lead to misinterpretation of CBC data. Current Interpretive Data was last revised on 2018. Monocyte pct 5.4 % [facility] Comment: Interpretive Data Percent cell count reference ranges are not reported, since discordance with absolute values may lead to misinterpretation of CBC data. Current Interpretive Data was last revised on 2018. Eosinophil pct 0.9 % [facility] Comment: Interpretive Data Percent cell count reference ranges are not reported, since discordance with absolute values may lead to misinterpretation of CBC data. Current Interpretive Data was last revised on 2018. Basophil pct 0.4 % [facility] Comment: Interpretive Data Percent cell count reference ranges are not reported, since discordance with absolute values may lead to misinterpretation of CBC data. Current Interpretive Data was last revised on 2018. Blood specimen (specimen) 04/01/2021 9:32 PM CDT 04/01/2021 10:13 PM CDT us Darrian Aguilar MD LAB BLOOD ORDERABLES Fin al Result [facility] [place] [address] * (ABNORMAL) Comprehensive metabolic panel (04/01/2021 9:32 PM CDT) Sodium 133(L) 135 - 145 mmol/L [facility] Potassium, pl 4.2 3.3 - 4.9 mmol/L [facility] Chloride 105 97 - 110 mmol/L [facility] CO2 18(L) 22 - 32 mmol/L [facility] Anion gap 10 2 - 15 mmol/L [facility] BUN 8 8 - 25 mg/dL [facility] Creatinine 0.62(L) 0.80 - 1.30 mg/dL [facility] Glucose 101 70 - 199 mg/dL [facility] Comment: Interpretive Data Fasting glucose >/= [...] 2017. Calcium 8.5 8.5 - 10.3 mg/dL [facility] Bilirubin, total 0.7 0.1 - 1.2 mg/dL [facility] Protein, pl 6.3(L) 6.5 - 8.5 g/dL [facility] Albumin 2.3(L) 3.5 - 5.0 g/dL [facility] Alk phos 80 40 - 130 Units/L [facility] ALT 58(H) 7 - 55 Units/L [facility] AST 60(H) 10 - 50 Units/L [facility] Blood specimen (specimen) 04/01/2021 9:32 PM CDT 04/01/2021 10:12 PM CDT Darrian Aguilar MD LAB BLOOD ORDERABLES Fin al Result Performing Organization Address [facility] de Phone Number [facility] [place] [employer] [place] [address] * (ABNORMAL) CBC with auto differential (04/01/2021 9:32 PM CDT) WBC 17.0(H) 3.8 - 9.9 K/cumm [facility] Hgb 9.6(L) 13.0 - 17.5 g/dL [facility] Hct 29.8(L) 38.9 - 50.3 % [facility] Plt 362 150 - 400 K/cumm [facility] MPV 11.8 9.1 - 12.[address] [facility] RBC 3.52(L) 4.30 - 5.80 M/cumm [facility] MCV 84.7 81.3 - 96.[address] [facility] MCH 27.3 27.1 - 33.[address] [facility] MCHC 32.2(L) 32.3 - 35.7 g/dL [facility] RDW CV 17.1(H) 11.1 - 14.9 % [facility] RDW SD 52.7(H) 35.7 - 48.[address] [facility] NRBC abs 0.00 0.00 - 0.01 K/cumm [facility] Blood specimen (specimen) 04/01/2021 9:32 PM CDT 04/01/2021 10:13 PM CDT Darrian Aguilar MD LAB BLOOD ORDERABLES Fin al Result Performing Organization Address [facility] Co de Phone Number [facility] [place] [address] * Vancomycin level trough (04/01/2021 2:33 AM CDT) Pathologist [facility] Vancomycin trough 11.1 10.0 - 20.0 mcg/mL [facility] Blood specimen (specimen) 04/01/2021 2:33 AM CDT 04/01/2021 3:16 AM CDT Mary Hutchison MD LAB BLOOD ORDERABLES Final Res ult [facility] [place] [address] * (ABNORMAL) Differential, auto (03/31/2021 10:53 PM CDT) Pathologist [facility] Neutrophil abs 16.6(H) 1.7 - 6.5 K/cumm [facility] Imm gran abs 1.1(H) 0.0 - 0.1 K/cumm [facility] Lymphocyte abs 1.2 0.8 - 3.3 K/cumm [facility] Monocyte abs 1.1(H) 0.2 - 0.8 K/cumm [facility] Eosinophil abs 0.1 0.0 - 0.5 K/cumm [facility] Basophil abs 0.0 0.0 - 0.1 K/cumm [facility] Neutrophil pct 82.7 % [facility] Comment: Interpretive Data Percent cell count reference ranges are not reported, since discordance with absolute values may lead to misinterpretation of CBC data. Current Interpretive Data was last revised on 2018. Imm gran pct 5.2 % [facility] [facility] Comment: Interpretive Data Percent cell count reference ranges are not reported, since discordance with absolute values may lead to misinterpretation of CBC data. Current Interpretive Data was last revised on 2018. Lymphocyte pct 6.1 % [facility] Comment: Interpretive Data Percent cell count reference ranges are not reported, since discordance with absolute values may lead to misinterpretation of CBC data. Current Interpretive Data was last revised on 2018. Monocyte pct 5.3 % [facility] Comment: Interpretive Data Percent cell count reference ranges are not reported, since discordance with absolute values may lead to misinterpretation of CBC data. Current Interpretive Data was last revised on 2018. Eosinophil pct 0.5 % [facility] Comment: Interpretive Data Percent cell count reference ranges are not reported, since discordance with absolute values may lead to misinterpretation of CBC data. Current Interpretive Data was last revised on 2018. Basophil pct 0.2 % [facility] Comment: Interpretive Data Percent cell count reference ranges are not reported, since discordance with absolute values may lead to misinterpretation of CBC data. Current Interpretive Data was last revised on 2018. Blood specimen (specimen) 03/31/2021 10:53 PM CDT 03/31/2021 11:39 PM CDT us Darrian Aguilar MD LAB BLOOD ORDERABLES Fin al Result [facility] [place] [address] * (ABNORMAL) Comprehensive metabolic panel (03/31/2021 10:53 PM CDT) Sodium 133(L) 135 - 145 mmol/L [facility] Potassium, pl 4.0 3.3 - 4.9 mmol/L [facility] Chloride 104 97 - 110 mmol/L [facility] CO2 18(L) 22 - 32 mmol/L [facility] Anion gap 11 2 - 15 mmol/L [facility] BUN 8 8 - 25 mg/dL [facility] Creatinine 0.70(L) 0.80 - 1.30 mg/dL [facility] Glucose 102 70 - 199 mg/dL [facility] Comment: Interpretive Data Fasting glucose >/= [...] interpretive data was last revised 2017. Calcium 8.9 8.5 - 10.3 mg/dL [facility] Bilirubin, total 1.1 0.1 - 1.2 mg/dL [facility] Protein, pl 6.5 6.5 - 8.5 g/dL [facility] Albumin 2.6(L) 3.5 - 5.0 g/dL [facility] Alk phos 122 40 - 130 Units/L [facility] ALT 62(H) 7 - 55 Units/L [facility] AST 97(H) 10 - 50 Units/L [facility] Blood specimen (specimen) 03/31/2021 10:53 PM CDT 03/31/2021 11:39 PM CDT us Darrian Aguilar MD LAB BLOOD ORDERABLES [facility] al Result [facility] [place] [address] * (ABNORMAL) CBC with auto differential (03/31/2021 10:53 PM CDT) WBC 20.1(H) 3.8 - 9.9 K/cumm [facility] Hgb 9.4(L) 13.0 - 17.5 g/dL [facility] Hct 28.9(L) 38.9 - 50.3 % [facility] Plt 325 150 - 400 K/cumm [facility] MPV 11.9 9.1 - 12.[address] [facility] RBC 3.41(L) 4.30 - 5.80 M/cumm [facility] MCV 84.8 81.3 - 96.[address] [facility] MCH 27.6 27.1 - 33.[address] [facility] MCHC 32.5 32.3 - 35.7 g/dL [facility] RDW CV 17.2(H) 11.1 - 14.9 % [facility] RDW SD 53.2(H) 35.7 - 48.[address] [facility] NRBC abs 0.00 0.00 - 0.01 K/cumm [facility] Blood specimen (specimen) 03/31/2021 10:53 PM CDT 03/31/2021 11:39 PM CDT Darrian Aguilar MD LAB BLOOD ORDERABLES Fin al Result Performing Organization Address [facility] [place] [address] * (ABNORMAL) Protime-INR (03/31/2021 10:53 PM CDT) PT 15.3(H) 9.5 - 13.[address] [facility] INR 1.4(H) 0.9 - 1.[address] [facility] Comment: Interpretive data Oral anticoagulant therapeutic ranges: Venous thromboembolism prophylaxis or treatment: 2.0-3.0 CARDIOLOGY Standard range: 2.0-3.0 High-intensity range: 2.5-3.5 Refer to indication-specific guidelines for appropriate target ranges for prosthetic heart valve replacement. Current interpretive data was last revised on 2019. Blood specimen (specimen) 03/31/2021 10:53 PM CDT 04/01/2021 12:07 AM CDT Darrian Aguilar MD LAB BLOOD ORDERABLES Fin al Result Performing Organization Address [facility] [place] [address] * Vancomycin level random (03/31/2021 4:31 PM CDT) Vancomycin random 21.5 mcg/mL [facility] Comment: Interpretive Data No reference ranges have been established for random drug levels. Current Interpretive Data was last revised on 2021. Blood specimen (specimen) 03/31/2021 4:31 PM CDT 03/31/2021 5:31 PM CDT Darrian Aguilar MD LAB BLOOD ORDERABLES Fin al Result Performing Organization Address City/[facility]/ZIP Co de Phone Number [facility] [place] [address] * Mycology (fungal) culture Aspirate Lumbar vertebrae #5 (03/31/2021 3:40 PM CDT) Report Final Report: No growth of fungus [facility] Aspirate (Lumbar vertebrae #5) 03/31/2021 3:40 PM CDT 03/31/2021 4:40 PM CDT Narrative [facility] - 04/28/2021 10:11 AM CDT L5-S1 Aspiration/Fluid Collection Testing performed by [facility] ([phone]). Darrian Aguilar MD LAB MICROBIOLOGY - GENER AL ORDERABLES Final Result Performing Organization Address [facility] Co de Phone Number [facility] [place] [address] * Mycobacteriology (AFB) culture Aspirate Lumbar vertebrae #5 (03/31/2021 3:40 PM CDT) Report Final Report: No growth of acid-fast bacilli [facility] Aspirate (Lumbar vertebrae #5) 03/31/2021 3:40 PM CDT 03/31/2021 4:40 PM CDT Narrative [facility] - 05/13/2021 4:26 PM CDT L5-S1 Aspiration/Fluid Collection Testing performed by [facility] ([phone]). Darrian Aguilar MD LAB MICROBIOLOGY - GENER AL ORDERABLES Final Result Performing Organization Address City/[facility] Co de Phone Number [facility] [place] [address] * (ABNORMAL) Aerobic and anaerobic culture and gram stain Aspirate Lumbar vertebrae #5 (03/31/2021 3:40 PM CDT) Direct Specimen Exam Stain: Abundant polymorphonuclear leukocytes seen. No organisms seen. [facility] Report Final Report: Few Escherichia coli (.) [facility] Organism ESCHERICHIA COLI [facility] Aspirate (Lumbar vertebrae #5) 03/31/2021 3:40 PM CDT 03/31/2021 4:40 PM CDT Narrative [facility] - 04/04/2021 6:42 AM CDT L5-S1 Aspiration/Fluid Collection Testing performed by [facility] ([phone]) Specimens submitted from normally sterile body sites [...] revised on 2020. Organism Antibiotic Method Susceptibility Escherichia coli Ampicillin INTERPRETATION Susceptible Escherichia coli Cefazolin INTERPRETATION Susceptible Escherichia coli Gentamicin INTERPRETATION Susceptible Escherichia coli Ampicillin with Sulbactam INTERPRETAT ION Susceptible Escherichia coli Trimethoprim with Sulfamethoxazole IN TERPRETATION Susceptible Escherichia coli Meropenem INTERPRETATION Susceptible Escherichia coli Cefepime INTERPRETATION Susceptible Escherichia coli Ciprofloxacin INTERPRETATION Susceptible Escherichia coli Ceftazidime INTERPRETATION Susceptible Escherichia coli Ceftriaxone INTERPRETATION Susceptible Escherichia coli Piperacillin/Tazobactam INTERPRETATIO N Susceptible Darrian Aguilar MD LAB MICROBIOLOGY - GENER AL ORDERABLES Final Result [facility] Department [place] [address] * IR Fluid Aspiration (03/31/2021 3:39 PM CDT) Anatomical Region Laterality Modality Body N/A Computed Tomogra phy 03/31/2021 4:32 PM CDT Impressions 03/31/2021 4:32 PM CDT 1. ??L5-S1 fluid collection aspiration under CT guidance. 5 mL cloudy roldan fluid aspirated and sent for cell count, Gram stain, and culture. Electronically signed by: Rhett Gomez M.D. Narrative 03/31/2021 4:32 PM CDT EXAMINATION: ??L5-S1 fluid collection aspiration under CT guidance HISTORY: Paraplegia with L5-S1 abscess versus neurogenic spine. ATTENDING PRESENCE: Dr. Rhett Gomez M.D., the attending radiologist, was present from the beginning to the end of the procedure. SEDATION: The patient did not require conscious sedation for the procedure. TECHNIQUE: ??The risks, benefits and alternatives were discussed and informed consent was obtained. ??Prior to beginning the procedure, [place] Protocol was performed to confirm the patient's identity and the planned procedure. Sterile barriers used during the procedure included cap, mask, hand hygiene, sterile gloves, and sterile drape. ??Chloraprep was used for cutaneous antisepsis. The patient was placed prone on the CT ??table. ??Local anesthesia are not utilized due to absent sensation. An 18-gauge ??needle was then introduced into the L5-S1 fluid collection under CT guidance. Approximately 5 mL of cloudy roldan fluid was withdrawn. The needle was removed. ??The skin was cleansed with hydrogen peroxide, and a bandage was placed. Complication: None Type: None ?? ESTIMATED BLOOD LOSS: None CONDITION: Stable condition. DISCHARGED TO: Nursing division FINDINGS: A proximally 5 mL cloudy roldan fluid was aspirated. ?? CT images confirm the needle tip to be within the fluid collection. ?? 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 ATTENDING PRESENCE: Dr. Rhett Gomez M.D., the attending radiologist, was present from the beginning to the end of the procedure. SEDATION: The patient did not require conscious sedation for the procedure. TECHNIQUE: The risks, benefits and alternatives were discussed and informed consent was obtained. Prior to beginning the procedure, [place] Protocol was performed to confirm the patient's [...] tip to be within the fluid collection. IMPRESSION: 1. L5-S1 fluid collection aspiration under CT guidance. 5 mL cloudy roldan fluid aspirated and sent for cell count, Gram stain, and culture. Electronically signed by: Rhett Gomez M.D. Darrian Aguilar MD IMG IR PROCEDURES Final Result * VRE culture, surveillance Stool (03/31/2021 12:40 PM CDT) Report Final Report: Negative [facility] Stool 03/31/2021 12:4 0 PM CDT 03/31/2021 11:02 PM CDT Narrative [facility] - 04/03/2021 9:45 AM CDT Testing performed by [facility] ([phone]). Mary Hutchison MD LAB MICROBIOLOGY - GENERAL ORD ERABLES Final Result [facility] Department [place] [address] * C. difficile testing Stool (03/31/2021 12:40 PM CDT) C. diff result Negative, free toxin Negative , free toxin [facility] C. diff interp Negative for toxigenic Clostridioides (Clostridium) difficile. Analysis was performed using an enzyme immunoassay that detects C. difficile toxin(s) in feces. [facility] Stool 03/31/2021 12:4 0 PM CDT 03/31/2021 1:48 PM CDT Darrian Aguilar MD LAB MICROBIOLOGY - GENER AL ORDERABLES Final Result Performing Organization Address [facility] Co de Phone Number [facility] [place] [address] * Critical Result Callback Chemistry (03/31/2021 3:17 AM CDT) Date Notified [id number] [facility] Time Notified [address] [facility] TestName VANCOMYCIN TROUGH [facility] Called/Read Back VENESSA MARTINEZ [facility] Credentials RN [facility] Called By RONI MARTINEZ [facility] Blood specimen (specimen) 03/31/2021 3:17 AM CDT 03/31/2021 3:47 AM CDT Darrian Aguilar MD LAB BLOOD ORDERABLES Fin al Result Performing Organization Address [facility] Co de Phone Number [facility] [place] [address] * (ABNORMAL) Vancomycin level trough Please draw 30 min prior to first dose on 03/31 (03/31/2021 3:17 AM CDT) Vancomycin trough 40.0(C) 10.0 - 20.0 mcg/mL [facility] Comment:Reviewed Blood specimen (specimen) 03/31/2021 3:17 AM CDT 03/31/2021 3:47 AM CDT Narrative [facility] - 03/31/2021 4:23 AM CDT Please draw 30 min prior to first dose on 03/31 Darrian Aguilar MD LAB BLOOD ORDERABLES Fin al Result Performing Organization Address City/[facility] Co de Phone Number [facility] [place] [address] * (ABNORMAL) Differential, auto (03/30/2021 8:43 PM CDT) Neutrophil abs 14.3(H) 1.7 - 6.5 K/cumm [facility] Imm gran abs 1.0(H) 0.0 - 0.1 K/cumm [facility] Lymphocyte abs 1.4 0.8 - 3.3 K/cumm [facility] Monocyte abs 1.0(H) 0.2 - 0.8 K/cumm [facility] Eosinophil abs 0.1 0.0 - 0.5 K/cumm [facility] Basophil abs 0.0 0.0 - 0.1 K/cumm [facility] Neutrophil pct 80.4 % [facility] Comment: Interpretive Data Percent cell count reference ranges are not reported, since discordance with absolute values may lead to misinterpretation of CBC data. Current Interpretive Data was last revised on 2018. Imm gran pct 5.4 % [facility] Comment: Interpretive Data Percent cell count reference ranges are not reported, since discordance with absolute values may lead to misinterpretation of CBC data. Current Interpretive Data was last revised on 2018. Lymphocyte pct 7.8 % [facility] Comment: Interpretive Data Percent cell count reference ranges are not reported, since discordance with absolute values may lead to misinterpretation of CBC data. Current Interpretive Data was last revised on 2018. Monocyte pct 5.7 % [facility] Comment: Interpretive Data Percent cell count reference ranges are not reported, since discordance with absolute values may lead to misinterpretation of CBC data. Current Interpretive Data was last revised on 2018. Eosinophil pct 0.5 % [facility] Comment: Interpretive Data Percent cell count reference ranges are not reported, since discordance with absolute values may lead to misinterpretation of CBC data. Current Interpretive Data was last revised on 2018. Basophil pct 0.2 % [facility] Comment: Interpretive Data Percent cell count reference ranges are not reported, since discordance with absolute values may lead to misinterpretation of CBC data. Current Interpretive Data was last revised on 2018. Blood specimen (specimen) 03/30/2021 8:43 PM CDT 03/30/2021 9:38 PM CDT us Darrian Aguilar MD LAB BLOOD ORDERABLES Fin al Result [facility] [place] [address] * (ABNORMAL) Comprehensive metabolic panel (03/30/2021 8:43 PM CDT) Sodium 135 135 - 145 mmol/L [facility] Potassium, pl 4.4 3.3 - 4.9 mmol/L [facility] Chloride 104 97 - 110 mmol/L [facility] CO2 18(L) 22 - 32 mmol/L [facility] Anion gap 13 2 - 15 mmol/L [facility] BUN 8 8 - 25 mg/dL [facility] Creatinine 0.70(L) 0.80 - 1.30 mg/dL [facility] Glucose 96 70 - 199 mg/dL [facility] Comment: Interpretive Data Fasting glucose >/= [...] 2017. Calcium 8.6 8.5 - 10.3 mg/dL [facility] Bilirubin, total 1.4(H) 0.1 - 1.2 mg/dL [facility] Protein, pl 6.6 6.5 - 8.5 g/dL [facility] Albumin 2.6(L) 3.5 - 5.0 g/dL [facility] Alk phos 153(H) 40 - 130 Units/L [facility] ALT 36 7 - 55 Units/L [facility] AST 45 10 - 50 Units/L [facility] Blood specimen (specimen) 03/30/2021 8:43 PM CDT 03/30/2021 9:38 PM CDT Darrian Aguilar MD LAB BLOOD ORDERABLES Fin al Result Performing Organization Address [facility] Co de Phone Number [facility] [place] [address] * (ABNORMAL) CBC with auto differential (03/30/2021 8:43 PM CDT) Pathologist [facility] WBC 17.8(H) 3.8 - 9.9 K/cumm [facility] Hgb 9.5(L) 13.0 - 17.5 g/dL [facility] Hct 28.8(L) 38.9 - 50.3 % [facility] Plt 309 150 - 400 K/cumm [facility] MPV 11.3 9.1 - 12.[address] [facility] RBC 3.46(L) 4.30 - 5.80 M/cumm [facility] MCV 83.2 81.3 - 96.[address] [facility] MCH 27.5 27.1 - 33.[address] [facility] MCHC 33.0 32.3 - 35.7 g/dL [facility] RDW CV 17.3(H) 11.1 - 14.9 % [facility] RDW SD 52.7(H) 35.7 - 48.[address] [facility] NRBC abs 0.00 0.00 - 0.01 K/cumm [facility] Blood specimen (specimen) 03/30/2021 8:43 PM CDT 03/30/2021 9:38 PM CDT Darrian Aguilar MD LAB BLOOD ORDERABLES Fin al Result Performing Organization Address [facility]/ZIP Co de Phone Number [facility] [place] [address] * XR Chest 1 View (03/30/2021 1:49 PM CDT) Anatomical Region Laterality Modality Body, Chest N/A Computed Radiogr aphy 03/31/2021 7:21 AM CDT Impressions 03/31/2021 7:21 AM CDT Comparison is made to chest radiograph dated 03/29/2021. Left upper extremity peripherally inserted central catheter tip overlies the superior vena cava. No pulmonary consolidation, pleural effusion, or pneumothorax. Normal cardiomediastinal silhouette. Electronically signed by: Kiana Salomon M.D. Narrative 03/31/2021 7:21 AM CDT EXAMINATION: 1 view chest radiograph Procedure Note Kiana Salomon MD - 03/31/2021 EXAMINATION: 1 view chest radiograph IMPRESSION: Comparison is made to chest radiograph dated 03/29/2021. Left upper extremity peripherally inserted central catheter tip overlies the superior vena cava. No pulmonary consolidation, pleural effusion, or pneumothorax. Normal cardiomediastinal silhouette. Electronically signed by: Kiana Salomon M.D. Darrian Aguilar MD IMG XR PROCEDURES Final Result * ECG 12 lead (03/30/2021 11:03 AM CDT) Pathologist [facility] Ventricular Rate EKG/Min [address] [facility] Atrial Rate 99 BPM [facility] MT-Interval (MSEC) 168 ms [facility] QRS-Interval (MSEC) 96 ms [facility] QT-Interval (MSEC) 324 ms [facility] QTc 415 ms [facility] P [place] 41 degrees [facility] R [place] 19 degrees [facility] T [place] 39 degrees [facility] Diagnosis Poor data quality, interpretation may be adversely affected Normal sinus rhythm Nonspecific T wave abnormality Abnormal ECG When compared with ECG of 04-FEB-2012 00:23, QRS duration has increased previous nonspecific ST-T wave abnormalities in inferolateral leads have improved consider serial changes in pattern of inferolateral ischemia/infarct Confirmed by ZULEYKA GUTIERREZ M.D ([id number]) on 04/01/2021 3:46:20 PM [facility] 03/30/2021 11:0 3 AM CDT 04/01/2021 3:46 PM CDT Darrian Aguilar MD ECG ORDERABLES Final Re sult Performing Organization Address [facility] Co de Phone Number [facility] * Cortisol (03/30/2021 6:05 AM CDT) Cortisol 18.4 3.7 - 19.4 mcg/dL [facility] Comment: Interpretive Data Normal Range: ??3.7 - 19.4 mcg/dL; ??Evening: ??Half of morning value. ?? This analyte undergoes marked diurnal variation. ??Ranges indicated apply to morning specimens. ?? Current interpretive data was last revised 2014. Blood specimen (specimen) 03/30/2021 6:05 AM CDT 03/30/2021 6:51 AM CDT us Darrian Aguilar MD LAB BLOOD ORDERABLES Fin al Result Performing Organization Address [facility] de Phone Number [facility] [place] [address] * Blood culture Blood Antecubital, right (03/30/2021 3:18 AM CDT) Report Final Report: No growth [facility] Blood specimen (specimen) (Antecubital, right) 03/30/2021 3:18 AM CDT 03/30/2021 4:42 AM CDT [address] [facility] - 04/03/2021 7:01 AM CDT 1. ?Blood cultures are incubated for 4 [...] organism identification may be performed using the [employer]br[employer] Gram-Positive Blood Culture Assay. This assay detects microbial DNA in positive blood culture broth via hybridization of target DNA to capture oligonucleotides on a microarray. This assay has been cleared by the [place] Food and Drug Administration and its performance characteristics have been verified by the [facility]. 5. ?For questions about this culture, contact the Microbiology Laboratory at [phone]. Interpretive data was last revised on 2020. us Darrian Aguilar MD LAB MICROBIOLOGY - GENER AL ORDERABLES Final Result Performing Organization Address City/[facility]/ZIP Co de Phone Number [facility] [place] [address] * (ABNORMAL) Vancomycin level trough Please draw 30 minutes prior to AM dose on 03/30 (03/30/2021 3:02AM CDT) Pathologist [facility] Vancomycin trough 22.6(H) 10.0 - 20.0 mcg/mL [facility] Blood specimen (specimen) 03/30/2021 3:02 AM CDT 03/30/2021 3:29 AM CDT Narrative [facility] - 03/30/2021 3:56 AM CDT Please draw 30 minutes prior to AM dose on 03/30 us Aly Neal MD LAB BLOOD ORDERABLES Final Result [facility] [place] [address] * US RUQ (03/30/2021 2:00 AM CDT) Anatomical Region Laterality Modality Abdomen N/A Ultrasound 03/30/2021 8:10 AM CDT Impressions 03/30/2021 8:10 AM CDT 1. Normal right upper quadrant sonogram status post cholecystectomy. No biliary ductal dilatation. Electronically signed by: Charlie Bridges M.D. Narrative 03/30/2021 8:10 AM CDT EXAMINATION: ??LIMITED ABDOMINAL SONOGRAM HISTORY: ??Elevated bilirubin COMPARISON: ??CT abdomen pelvis performed at [facility] on 03/27/2021 FINDINGS: ?? Liver: The liver is normal in size. ??The echotexture is normal. ??The echogenicity is normal. There is no surface nodularity. No focal solid lesions are visualized. ?? Gallbladder: The gallbladder is surgically absent. Bile Duct: There is no intrahepatic bile duct dilatation. The common duct measures 5 mm and 2 mm in the proximal and mid ducts, respectively. ?? Procedure Note Charlie Bridges MD - 03/30/2021 EXAMINATION: LIMITED ABDOMINAL SONOGRAM HISTORY: Elevated bilirubin COMPARISON: CT abdomen pelvis performed at [facility] on 03/27/2021 FINDINGS: Liver: The liver is normal in size. The echotexture is normal. The echogenicity is normal. There is no surface nodularity. No focal solid lesions are visualized. Gallbladder: The gallbladder is surgically absent. Bile Duct: There is no intrahepatic bile duct dilatation. The common duct measures 5 mm and 2 mm in the proximal and mid ducts, respectively. IMPRESSION: 1. Normal right upper quadrant sonogram status post cholecystectomy. No biliary ductal dilatation. Electronically signed by: Charlie Bridges M.D. Darrian Aguilar MD [facility] [place] PROCEDURES Final Result * (ABNORMAL) D-dimer, quantitative (03/29/2021 10:04 PM CDT) D-Dimer 3,846(H) <=499 ng/mL FEU JUAN RONQUILLO Comment: Interpretive data FDA approved the D-dimer, in conjunction with a low or moderate pretest probability score, to exclude venous thromboembolic events (VTE) (PE and DVT) in outpatients when the D-dimer result is < 500 ng/ml FEU. ?? Evidence supports using an age-adjusted D-dimer cut-off for outpatients older than 50 (age x 10) to improve specificity without sacrificing sensitivity. Example: age 68, VTE cut-off 680 ng/ml FEU. References; Mauricio BARRAGAN et al. Brit Med J. 2013;346:f2492. Stephanie et al. Annals Int Med. 2015;163:701-11. Current interpretive data was last revised on 2019. Blood specimen (specimen) 03/29/2021 10:04 PM CDT 03/29/2021 10:50 PM CDT us Darrian Aguilar MD LAB BLOOD ORDERABLES Fin al Result [facility] [place] [address] * (ABNORMAL) Differential, auto (03/29/2021 10:04 PM CDT) Neutrophil abs 12.6(H) 1.7 - 6.5 K/cumm [facility] Imm gran abs 0.6(H) 0.0 - 0.1 K/cumm [facility] Lymphocyte abs 1.3 0.8 - 3.3 K/cumm [facility] Monocyte abs 1.1(H) 0.2 - 0.8 K/cumm [facility] Eosinophil abs 0.0 0.0 - 0.5 K/cumm [facility] Basophil abs 0.1 0.0 - 0.1 K/cumm [facility] Neutrophil pct 80.3 % [facility] Comment: Interpretive Data Percent cell count reference ranges are not reported, since discordance with absolute values may lead to misinterpretation of CBC data. Current Interpretive Data was last revised on 2018. Imm gran pct 3.8 % [facility] Comment: Interpretive Data Percent cell count reference ranges are not reported, since discordance with absolute values may lead to misinterpretation of CBC data. Current Interpretive Data was last revised on 2018. Lymphocyte pct 8.5 % [facility] Comment: Interpretive Data Percent cell count reference ranges are not reported, since discordance with absolute values may lead to misinterpretation of CBC data. Current Interpretive Data was last revised on 2018. Monocyte pct 6.8 % [facility] Comment: Interpretive Data Percent cell count reference ranges are not reported, since discordance with absolute values may lead to misinterpretation of CBC data. Current Interpretive Data was last revised on 2018. Eosinophil pct 0.2 % [facility] Comment: Interpretive Data Percent cell count reference ranges are not reported, since discordance with absolute values may lead to misinterpretation of CBC data. Current Interpretive Data was last revised on 2018. Basophil pct 0.4 % [facility] Comment: Interpretive Data Percent cell count reference ranges are not reported, since discordance with absolute values may lead to misinterpretation of CBC data. Current Interpretive Data was last revised on 2018. Blood specimen (specimen) 03/29/2021 10:04 PM CDT 03/29/2021 10:44 PM CDT Darrian Aguilar MD LAB BLOOD ORDERABLES Fin al Result Performing Organization Address [facility] Co de Phone Number [facility] Department [place] [address] * TSH reflex to free T4 (03/29/2021 10:04 PM CDT) TSH 1.54 0.30 - 4.20 mcIUnit/mL [facility] Blood specimen (specimen) 03/29/2021 10:04 PM CDT 03/29/2021 10:44 PM CDT Darrian Aguilar MD LAB BLOOD ORDERABLES Fin al Result [facility] [place] [place] [address] * aPTT (03/29/2021 10:04 PM CDT) aPTT 32 27 - [address] [facility] Comment: Interpretive Data Therapeutic heparin range: 60.0 - 94.0 seconds. Based on correlation with therapeutic heparin activity range of 0.3-0.7 Units/mL. Current interpretive data was last revised on 2021. Blood specimen (specimen) 03/29/2021 10:04 PM CDT 03/29/2021 10:47 PM CDT Darrian Aguilar MD LAB BLOOD ORDERABLES Fin al Result Performing Organization Address [facility] Co de Phone Number [facility] [place] [address] * (ABNORMAL) Erythrocyte sedimentation rate (03/29/2021 10:04 PM CDT) Erythrocyte sedimentation rate 92(H) 1 - 15 mm/hr [facility] Blood specimen (specimen) 03/29/2021 10:04 PM CDT 03/29/2021 10:44 PM CDT Darrian Aguilar MD LAB BLOOD ORDERABLES Fin al Result Performing Organization Address [facility] de Phone Number [facility] [place] [place] [address] * (ABNORMAL) CRP (acute phase) (03/29/2021 10:04 PM CDT) Pathologist [facility] CRP 331.8(H) <=10.0 mg/L [facility] Comment:Repeated on Dilution Blood specimen (specimen) 03/29/2021 10:04 PM CDT 03/29/2021 10:44 PM CDT Darrian Aguilar MD LAB BLOOD ORDERABLES Fin al Result Performing Organization Address [facility] [place] [address] * (ABNORMAL) Comprehensive metabolic panel (03/29/2021 10:04 PM CDT) Pathologist [facility] Sodium 136 135 - 145 mmol/L [facility] Potassium, pl 4.2 3.3 - 4.9 mmol/L [facility] Chloride 109 97 - 110 mmol/L [facility] CO2 17(L) 22 - 32 mmol/L [facility] Anion gap 10 2 - 15 mmol/L [facility] BUN 6(L) 8 - 25 mg/dL [facility] Creatinine 0.65(L) 0.80 - 1.30 mg/dL [facility] Glucose 92 70 - 199 mg/dL [facility] Comment: Interpretive Data Fasting glucose >/= [...] 2017. Calcium 8.8 8.5 - 10.3 mg/dL [facility] Bilirubin, total 2.3(H) 0.1 - 1.2 mg/dL [facility] Protein, pl 6.4(L) 6.5 - 8.5 g/dL [facility] Albumin 2.3(L) 3.5 - 5.0 g/dL [facility] Alk phos 94 40 - 130 Units/L [facility] ALT 36 7 - 55 Units/L [facility] AST 40 10 - 50 Units/L [facility] Blood specimen (specimen) 03/29/2021 10:04 PM CDT 03/29/2021 10:44 PM CDT us Darrian Aguilar MD LAB BLOOD ORDERABLES Fin al Result [facility] Department [place] [address] * (ABNORMAL) CBC with auto differential (03/29/2021 10:04 PM CDT) WBC 15.7(H) 3.8 - 9.9 K/cumm [facility] Hgb 9.6(L) 13.0 - 17.5 g/dL [facility] Hct 28.1(L) 38.9 - 50.3 % [facility] Plt 267 150 - 400 K/cumm [facility] MPV 11.5 9.1 - 12.[address] [facility] RBC 3.38(L) 4.30 - 5.80 M/cumm [facility] MCV 83.1 81.3 - 96.[address] [facility] MCH 28.4 27.1 - 33.[address] [facility] MCHC 34.2 32.3 - 35.7 g/dL [facility] RDW CV 17.1(H) 11.1 - 14.9 % [facility] RDW SD 52.4(H) 35.7 - 48.[address] [facility] NRBC abs 0.00 0.00 - 0.01 K/cumm [facility] Blood specimen (specimen) 03/29/2021 10:04 PM CDT 03/29/2021 10:44 PM CDT us Darrian Aguilar MD LAB BLOOD ORDERABLES Fin al Result Performing Organization Address City/State/[facility] Co de Phone Number [facility] [place] [address] * MRI Spine Total Complete W WO Contrast (03/29/2021 5:16 PM CDT) Anatomical Region Laterality Modality Spine N/A Magnetic Resonan ce 03/29/2021 6:45 PM CDT Impressions 03/29/2021 6:45 PM CDT 1. ??The CT, MR spine radiographs, and MRI show destruction at the lumbosacral junction with disorganized bone fragments and a fluid collection in the calf between the small residual components of the L5 vertebral body in the remainder of the sacrum. ??The fluid collection displaces the iliopsoas muscles but does not cause edema within them which is more typical of infection. ??Constellation of findings favors a neuropathic spine with destruction of the lumbosacral junction rather than acute infection. ??The possibility of superinfection is not entirely excluded, particularly noting the patient's urinary tract infection and ulcers in the region. There is no evidence of discitis osteomyelitis in the cervical, thoracic, or lumbar spine from L1 through L4. 2. ??Large disc protrusion at C5-C6 causing moderate canal stenosis. 3. 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 Electronically signed by: Micaela Cope M.D. Narrative 03/29/2021 6:45 PM CDT EXAMINATION: Magnetic resonance imaging (MRI) of the cervical spine without and with contrast Magnetic resonance imaging (MRI) of the thoracic spine without and with contrast Magnetic resonance imaging (MRI) of the lumbar spine without and with contrast HISTORY: Concern for discitis osteomyelitis at L5-S1. ??Urosepsis. History of T4-T5 quadriplegia. TECHNIQUE: Multiplanar multi-weighted MRI of the entire spine was performed without and with intravenous contrast using the standard total spine protocol. Contrast information: 20 mL Dotarem COMPARISON: CT body 03/27/2021, lumbar spine radiographs 03/29/2021, and hip radiographs 08/23/2017 FINDINGS: CERVICAL SPINE: The alignment of the cervical spine is normal. Vertebral bodies demonstrate normal signal intensity on all sequences. No acute fracture is identified; however, if trauma is suspected, a CT scan would be a more sensitive examination for fractures. The craniocervical junction is normal. The visualized portions of the skull base and the posterior fossa are normal. The spinal cord demonstrates normal signal intensity on all sequences. There is a large disc protrusion at C5-C6 which causes moderate canal stenosis. There is a smaller disc bulge at C4-C5. Intervertebral disc signal is normal and there is no abnormal contrast enhancement cervical spine. No soft tissue abnormality is identified. Normal signal voids are present in the vertebral arteries THORACIC SPINE: There is kyphosis of the cervical spine centered at T2-T3. ??Blood products are noted within the spinal cord at T2 and T3 with myelomalacia and syrinx from at least T1 through the conus. Vertebral bodies demonstrate normal signal intensity on all sequences. There are no compression fractures. ??Intervertebral disks have normal height and signal intensity. There are no areas of abnormal contrast enhancement. LUMBAR SPINE: There is normal alignment of the lumbar spine from the thoracolumbar junction to L4. ??There is near complete destruction of the L5 vertebral body and the majority of the sacrum as was noted on lumbar spine radiographs and CT of the abdomen and pelvis recently performed. ??Of note, L5 and the sacrum appeared normal on frontal radiograph of the pelvis obtained for evaluation of the hips on 08/23/2017. ??Within the space of the missing lumbosacral junction is a fluid collection. ??Component of the fluid collection extends into the left paraspinal muscles to the level of the L3 vertebral body. There is peripheral enhancement around this fluid collection. Generalized soft tissue stranding is seen in the pelvic soft tissues. There is severe atrophy of the paraspinal muscles. ??The fluid collection in the lumbosacral junction gap displaces the atrophic iliopsoas muscles but there is no abscess extending into those muscles. ??Similarly there is no edema seen within those muscles as is typically seen with abscess. ??The spinal canal at the lumbosacral junction is obliterated. Vertebral bodies from L1 through L4 demonstrate normal signal intensity on all sequences. There are no compression fractures from L1 through L4. The conus medullaris terminates at the level of L1-L2. ??Intervertebral disks have normal height and signal intensity from L1 through L4. There are no annular fissures identified. Procedure Note Micaela Cope MD - 03/29/2021 EXAMINATION: Magnetic resonance imaging (MRI) of the cervical spine without and with contrast Magnetic resonance imaging (MRI) of the thoracic spine without and with contrast Magnetic resonance imaging (MRI) of the lumbar spine without and with contrast HISTORY: Concern for discitis osteomyelitis at L5-S1. Urosepsis. History of T4-T5 quadriplegia. TECHNIQUE: Multiplanar multi-weighted MRI of the entire spine was performed without and with intravenous contrast using the standard total spine protocol. Contrast information: 20 mL Dotarem COMPARISON: CT body 03/27/2021, lumbar spine radiographs 03/29/2021, and hip radiographs 08/23/2017 FINDINGS: CERVICAL SPINE: The alignment of the cervical spine is normal. Vertebral bodies demonstrate normal signal intensity on all sequences. No acute fracture is identified; however, if trauma is suspected, a CT scan would be a more sensitive examination for fractures. The craniocervical junction is normal. The visualized portions of the skull base and the posterior fossa are normal. The spinal cord demonstrates normal signal intensity on all sequences. There is a large disc protrusion at C5-C6 which causes moderate canal stenosis. There is a smaller disc bulge at C4-C5. Intervertebral disc signal is normal and there is no abnormal contrast enhancement cervical spine. No soft tissue abnormality is identified. Normal signal voids are present in the vertebral arteries THORACIC SPINE: There is kyphosis of the cervical spine centered at T2-T3. Blood products are noted within the spinal cord at T2 and T3 with myelomalacia and syrinx from at least T1 through the conus. Vertebral bodies demonstrate normal signal intensity on all sequences. There are no compression fractures. Intervertebral disks have normal height and signal intensity. There are no areas of abnormal contrast enhancement. LUMBAR SPINE: There is normal alignment of the lumbar spine from the thoracolumbar junction to L4. There is near complete destruction of the L5 vertebral body and the majority of the sacrum as was noted on lumbar spine radiographs and CT of the abdomen and pelvis recently performed. Of note, L5 and the sacrum appeared normal on frontal radiograph of the pelvis obtained for evaluation of the hips on 08/23/2017. Within the space of the missing lumbosacral junction is a fluid collection. Component of the fluid collection extends into the left paraspinal muscles to the level of the L3 vertebral body. There is peripheral enhancement around this fluid collection. Generalized soft tissue stranding is seen in the pelvic soft tissues. There is severe atrophy of the paraspinal muscles. The fluid collection in the lumbosacral junction gap displaces the atrophic iliopsoas muscles but there is no abscess extending into those muscles. Similarly there is no edema seen within those muscles as is typically seen with abscess. The spinal canal at the lumbosacral junction is obliterated. Vertebral bodies from L1 through L4 demonstrate normal signal intensity on all sequences. There are no compression fractures from L1 through L4. The conus medullaris terminates at the level of L1-L2. Intervertebral disks have normal height and signal intensity from L1 through L4. There are no annular fissures identified. IMPRESSION: 1. The CT, MR spine radiographs, and MRI show destruction at the lumbosacral junction with disorganized bone fragments and a fluid collection in the calf between the small residual components of the L5 vertebral body in the remainder of the sacrum. The fluid collection displaces the iliopsoas muscles but does not cause edema within them which is more typical of infection. Constellation of findings favors a neuropathic spine with destruction of the lumbosacral junction rather than acute infection. The possibility of superinfection is not entirely excluded, particularly noting the patient's urinary tract infection and ulcers in the region. There is no evidence of discitis osteomyelitis in the cervical, thoracic, or lumbar spine from L1 through L4. 2. Large disc protrusion at C5-C6 causing moderate canal stenosis. 3. 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 Electronically signed by: Micaela Cope M.D. 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 Electronically signed by: Maria L Reed M.D. Narrative 03/29/2021 2:56 PM CDT EXAMINATION: XR SPINE LUMBAR 2 OR 3 VIEWS HISTORY: Paraplegia, lumbosacral distraction FINDINGS: 2 views of the lumbar spine are submitted with comparison to radiographs dated 08/23/[address] dated 03/27/2021. There is osseous destruction involving the sacrum and L5 vertebral body. Of note, this involves the posterior elements. There is surrounding disorganized bone formation. Sclerosis is seen at the inferior aspect of the L4 vertebral body. There are coarse bridging anterior syndesmophytes. The coccyx is posteriorly subluxed. Limited evaluation of the hips demonstrates marked heterotopic ossification an left hip joint space narrowing. Large calculi are noted within a neobladder. An inferior vena cava filter is in place. There are cholecystectomy clips. Procedure Note Maria L Reed MD - 03/29/2021 EXAMINATION: XR SPINE LUMBAR 2 OR 3 VIEWS HISTORY: Paraplegia, lumbosacral distraction FINDINGS: 2 views of the lumbar spine are submitted with comparison to radiographs dated 08/23/[address] dated 03/27/2021. There is osseous destruction involving the sacrum and L5 vertebral body. Of note, this involves the posterior elements. There is surrounding disorganized bone formation. Sclerosis is seen at the inferior aspect of the L4 vertebral body. There are coarse bridging anterior syndesmophytes. The coccyx is posteriorly subluxed. Limited evaluation of the hips demonstrates marked heterotopic ossification an left hip joint space narrowing. Large calculi are noted within a neobladder. An inferior vena cava filter is in place. There are cholecystectomy clips. 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 Electronically signed by: Maria L Reed M.D. Darrian Aguilar MD IMG XR PROCEDURES Final Result * Sodium, urine, random (03/29/2021 1:39 PM CDT) Sodium, ur 70 mmol/L [facility] Comment: Interpretive Data No reference range established. Current interpretive data was last revised 2019. Urine 03/29/2021 1:39 PM CDT 03/29/2021 3:29 PM CDT Darrian Aguilar MD LAB URINE ORDERABLES Fin al Result [facility] [place] [address] * Osmolality, urine (03/29/2021 1:39 PM CDT) Osmo, ur 388 mOsm/kg [facility] Urine 03/29/2021 1:39 PM CDT 03/29/2021 3:29 PM CDT Darrian Aguilar MD LAB URINE ORDERABLES Fin al Result Performing Organization Address City/[facility]/ZIP Co de Phone Number [facility] [place] [address] * XR Chest 1 View (03/29/2021 12:09 PM CDT) Anatomical Region Laterality Modality Body, Chest N/A Computed Radiogr aphy 03/29/2021 3:00 PM CDT Impressions 03/29/2021 3:00 PM CDT There are no prior chest radiographs at [facility] for comparison. ??The heart is mildly enlarged. ??There is no mass or lymphadenopathy. ??There is minimal biapical pleural capping. Patchy right greater than left atelectasis is noted. Electronically signed by: Kellie Macias M.D. Narrative 03/29/2021 3:00 PM CDT EXAMINATION: 1 view chest radiograph Procedure Note Kellie Macias MD - 03/29/2021 EXAMINATION: 1 view chest radiograph IMPRESSION: There are no prior chest radiographs at [facility] for comparison. The heart is mildly enlarged. There is no mass or lymphadenopathy. There is minimal biapical pleural capping. Patchy right greater than left atelectasis is noted. Electronically signed by: Kellie Macias M.D. us Darrian Aguilar MD IMG XR PROCEDURES Final Result * Urine culture Urine, bladder (03/29/2021 4:45 AM CDT) Report Final Report: No growth [facility] Urine, bladder 03/29/2021 4: 45 AM CDT 03/29/2021 5:32 AM CDT Narrative [facility] - 03/30/2021 8:24 AM CDT Indications for Culture:->Recent positive UA Testing performed by [facility] ([phone]) us Jewels Moore MD LAB MICROBIOLOGY - GENERAL ELPIDIO VENEGAS Final Result Performing Organization Address City/[facility]/ZIP Co de Phone Number [facility] [place] [address] * Osmolality, blood (03/28/2021 10:11 PM CDT) [facility] Osmo 276 275 - 300 mOsm/kg [facility] Blood specimen (specimen) 03/28/2021 10:11 PM CDT 03/28/2021 10:50 PM CDT us Darrian Aguilar MD LAB BLOOD ORDERABLES Fin al Result [facility] [place] [address] * (ABNORMAL) Pro B-type natriuretic peptide (03/28/2021 10:11 PM CDT) [facility] NT-proBNP 490(H) <=300 pg/mL [facility] Comment: Interpretive Comments: A. Dyspnea in Acute Care Setting All Ages: ?< 300 pg/ml, acute heart failure unlikely. < 50 yrs: ?300 - 450 pg/ml, further investigation warranted. ? > 450 pg/ml, acute heart failure likely. 50 - 74 yrs: ? 300 - 900 pg/ml, further investigation warranted. ? > 900 pg/ml, acute heart failure likely . > or = 75 yrs: ? 450 - 1800 pg/ml, further investigation warranted. ? > 1800 pg/ml, acute heart failure likely. B. Non-acute Setting < 75 yrs ? < 125 pg/ml, rules out heart failure. ? > or = 125 pg/ml, further investigation warranted. > or = 75 yrs ?< 450 pg/ml, rules out heart failure. ? > or = 450 pg/ml, further investigation warranted. - Knowledge of each individual patient's NT-proBNP range may be more useful than using similar cut-points for every patient. Please note that marked elevations in NT-proBNP levels may be observed in state other than Left Ventricular Congestive Failure, including: acute coronary syndromes, right heart strain/failure (including pulmonary embolism and cor pulmonale), critical illness, renal failure, as well as advanced age. - References: 1. Mandy DEY et.al. Eur Heart J. 2006:27:330-337. 2. Imtiaz RW, Hermilo AM. J. AM Darcy Cardiol: Cardiovasc Imag. 2009;2: 216- 225. Interpretive Data Last Revised Date: 2018. Blood specimen (specimen) 03/28/2021 10:11 PM CDT 03/28/2021 10:50 PM CDT Darrian Aguilar MD LAB BLOOD ORDERABLES Fin al Result Performing Organization Address City/[facility]/ZIP Co de Phone Number [facility] Department [place] [address] * (ABNORMAL) Bilirubin, direct (03/28/2021 10:11 PM CDT) Bilirubin, direct 1.6(H) 0.1 - 0.3 mg/dL [facility] Blood specimen (specimen) 03/28/2021 10:11 PM CDT 03/28/2021 10:50 PM CDT Darrian Aguilar MD LAB BLOOD ORDERABLES Fin al Result Performing Organization Address City/[facility]/ZIP Co de Phone Number [facility] Department [place] [address] * (ABNORMAL) Differential, auto (03/28/2021 10:11 PM CDT) Neutrophil abs 11.1(H) 1.7 - 6.5 K/cumm [facility] Imm gran abs 0.4(H) 0.0 - 0.1 K/cumm [facility] Lymphocyte abs 1.1 0.8 - 3.3 K/cumm [facility] Monocyte abs 1.2(H) 0.2 - 0.8 K/cumm [facility] Eosinophil abs 0.0 0.0 - 0.5 K/cumm [facility] Basophil abs 0.1 0.0 - 0.1 K/cumm [facility] Neutrophil pct 80.3 % [facility] Comment: Interpretive Data Percent cell count reference ranges are not reported, since discordance with absolute values may lead to misinterpretation of CBC data. Current Interpretive Data was last revised on 2018. Imm gran pct 2.8 % [facility] Comment: Interpretive Data Percent cell count reference ranges are not reported, since discordance with absolute values may lead to misinterpretation of CBC data. Current Interpretive Data was last revised on 2018. Lymphocyte pct 7.9 % [facility] Comment: Interpretive Data Percent cell count reference ranges are not reported, since discordance with absolute values may lead to misinterpretation of CBC data. Current Interpretive Data was last revised on 2018. Monocyte pct 8.3 % [facility] Comment: Interpretive Data Percent cell count reference ranges are not reported, since discordance with absolute values may lead to misinterpretation of CBC data. Current Interpretive Data was last revised on 2018. Eosinophil pct 0.3 % [facility] Comment: Interpretive Data Percent cell count reference ranges are not reported, since discordance with absolute values may lead to misinterpretation of CBC data. Current Interpretive Data was last revised on 2018. Basophil pct 0.4 % [facility] Comment: Interpretive Data Percent cell count reference ranges are not reported, since discordance with absolute values may lead to misinterpretation of CBC data. Current Interpretive Data was last revised on 2018. Blood specimen (specimen) 03/28/2021 10:11 PM CDT 03/28/2021 10:50 PM CDT Darrian Aguilar MD LAB BLOOD ORDERABLES Fin al Result Performing Organization Address [facility]/ZIP Co de Phone Number [facility] [place] [address] * Vitamin B12 (03/28/2021 10:11 PM CDT) Vitamin B12 644 230 - 1,250 pg/mL [facility] Blood specimen (specimen) 03/28/2021 10:11 PM CDT 03/28/2021 10:50 PM CDT Jewels Moore MD LAB BLOOD ORDERABLES Final Resu lt Performing Organization Address [facility] Co de Phone Number [facility] [place] [address] * (ABNORMAL) Iron profile w/ IBC (03/28/2021 10:11 PM CDT) Iron 22(L) 50 - 150 mcg/dL [facility] TIBC 120(L) 250 - 400 mcg/dL [facility] Transferrin saturation 18(L) 20 - 50 % [facility] Blood specimen (specimen) 03/28/2021 10:11 PM CDT 03/28/2021 10:50 PM CDT Jewels Moore MD LAB BLOOD ORDERABLES Final Resu lt Performing Organization Address [facility] Co de Phone Number [facility] [place] [address] * Folate (03/28/2021 10:11 PM CDT) Folic acid 6.4 >=5.0 ng/mL [facility] Blood specimen (specimen) 03/28/2021 10:11 PM CDT 03/28/2021 10:50 PM CDT Jewels Moore MD LAB BLOOD ORDERABLES Final Resu lt Performing Organization Address City/[facility]/ZIP Co de Phone Number [facility] [place] [address] * (ABNORMAL) Ferritin (03/28/2021 10:11 PM CDT) Pathologist [facility] Ferritin 1,593(H) 30 - 400 ng/mL [facility] Blood specimen (specimen) 03/28/2021 10:11 PM CDT 03/28/2021 10:50 PM CDT Jewels Moore MD LAB BLOOD ORDERABLES Final Resu lt Performing Organization Address [facility] Co de Phone Number [facility] Department [place] [address] * (ABNORMAL) Basic metabolic panel (03/28/2021 10:11 PM CDT) [facility] Sodium 130(L) 135 - 145 mmol/L [facility] Potassium, pl 3.9 3.3 - 4.9 mmol/L [facility] Chloride 103 97 - 110 mmol/L [facility] CO2 17(L) 22 - 32 mmol/L [facility] Anion gap 10 2 - 15 mmol/L [facility] BUN 9 8 - 25 mg/dL [facility] Creatinine 0.60(L) 0.80 - 1.30 mg/dL [facility] Glucose 112 70 - 199 mg/dL [facility] Comment: Interpretive Data Fasting glucose >/= [...] 2017. Calcium 9.0 8.5 - 10.3 mg/dL [facility] Blood specimen (specimen) 03/28/2021 10:11 PM CDT 03/28/2021 10:50 PM CDT Darrian Aguilar MD LAB BLOOD ORDERABLES Fin al Result Performing Organization Address [facility] Co de Phone Number [facility] [place] [address] * (ABNORMAL) CBC with auto differential (03/28/2021 10:11 PM CDT) Pathologist [facility] WBC 13.8(H) 3.8 - 9.9 K/cumm [facility] Hgb 10.0(L) 13.0 - 17.5 g/dL [facility] Hct 29.5(L) 38.9 - 50.3 % [facility] Plt 248 150 - 400 K/cumm [facility] MPV 11.8 9.1 - 12.[address] [facility] RBC 3.54(L) 4.30 - 5.80 M/cumm [facility] MCV 83.3 81.3 - 96.[address] [facility] MCH 28.2 27.1 - 33.[address] [facility] MCHC 33.9 32.3 - 35.7 g/dL [facility] RDW CV 16.9(H) 11.1 - 14.9 % [facility] RDW SD 52.1(H) 35.7 - 48.[address] [facility] NRBC abs 0.00 0.00 - 0.01 K/cumm [facility] Blood specimen (specimen) 03/28/2021 10:11 PM CDT 03/28/2021 10:50 PM CDT Darrian Aguilar MD LAB BLOOD ORDERABLES Fin al Result Performing Organization Address [facility] Co de Phone Number [facility] [place] [address] * CT Body Outside Consult (03/28/2021 6:36 [...] images may or may not represent the nikolai source data set and thus may contain changes that may lower the accuracy of this second-opinion interpretation. Electronically signed by: Nicholas Malone 03/29/2021 8:43 AM CDT EXAMINATION: RADIOLOGY CONSULTATION ON OUTSIDE IMAGING STUDY STUDY INITIALLY PERFORMED: 03/27/2021 at ??[facility]. TYPE OF STUDY: Multiple CT images of [...] IMAGING STUDY STUDY INITIALLY PERFORMED: 03/27/2021 at [facility]. TYPE OF STUDY: Multiple CT images of [...] images may or may not represent the nikolai source data set and thus may contain changes that may lower the accuracy of this second-opinion interpretation. Electronically signed by: Cipriano Vergara M.D. Darrian Aguilar MD [facility] [place] PROCEDURES Final Result * (ABNORMAL) Urinalysis reflex to microscopic and culture Urine (03/28/2021 6:34 PM CDT) Color, ur Fabi Yellow [facility] Clarity, ur Cloudy(A) Clear [facility] Specific gravity, ur 1.017 1.010 - 1.025 [facility] pH, urine 6 [facility] Protein, ur ql 2+(A) Negative [facility] Glucose, ur ql Negative Negative [facility] Ketones, ur Trace Negative [facility] Bilirubin, ur 1+(A) Negative [facility] Blood, ur 2+(A) Negative [facility] Urobilinogen, ur 4.0(A) <2.0 mg/dL [facility] Nitrite, ur Negative Negative [facility] Leukocyte esterase, ur 3+(A) Negative [facility] Urine 03/28/2021 6:34 PM CDT 03/28/2021 7:17 PM CDT [facility]ative [facility] 03/28/[facility]21 7:25 PM CDT Please acquire via straight cath of his samira-bladder Urine pH is affected by diet, medications, systemic acid-base disturbances, and renal tubular function. ??pH may affect urinary stone formation. ??For example, urine pH below 6.0 may help reduce the tendency for calcium phosphate stones and pH greater than 6.0 may reduce the tendency for uric acid stone formation. Source: [employer]. Last revised 11-18-2017 us Darrian Aguilar MD LAB MICROBIOLOGY - GENER AL ORDERABLES Final Result [facility] [place] [address] * Blood culture Blood (03/28/2021 6:22 PM CDT) Report Final Report: No growth [facility] Blood specimen (specimen) 03/28/2021 6:22 PM CDT 03/28/2021 6:44 PM CDT Narrative [facility] - 04/02/2021 7:00 AM CDT 1. ?Blood cultures are incubated for 4 [...] organism identification may be performed using the Pathbriteigene Gram-Positive Blood Culture Assay. This assay detects microbial DNA in positive blood culture broth via hybridization of target DNA to capture oligonucleotides on a microarray. This assay has been cleared by the [place] Food and Drug Administration and its performance characteristics have been verified by the [facility]. 5. ?For questions about this culture, contact the Microbiology Laboratory at [phone]. Interpretive data was last revised on 2020. Darrian Aguilar MD LAB MICROBIOLOGY - GENER AL ORDERABLES Final Result [facility] Department [place] [address] * (ABNORMAL) Differential, auto (03/28/2021 5:47 PM CDT) Pathologist [facility] Neutrophil abs 10.7(H) 1.7 - 6.5 K/cumm [facility] Imm gran abs 0.4(H) 0.0 - 0.1 K/cumm [facility] Lymphocyte abs 1.2 0.8 - 3.3 K/cumm [facility] Monocyte abs 1.1(H) 0.2 - 0.8 K/cumm [facility] Eosinophil abs 0.1 0.0 - 0.5 K/cumm [facility] Basophil abs 0.0 0.0 - 0.1 K/cumm [facility] Neutrophil pct 79.7 % [facility] Comment: Interpretive Data Percent cell count reference ranges are not reported, since discordance with absolute values may lead to misinterpretation of CBC data. Current Interpretive Data was last revised on 2018. Imm gran pct 2.7 % [facility] Comment: Interpretive Data Percent cell count reference ranges are not reported, since discordance with absolute values may lead to misinterpretation of CBC data. Current Interpretive Data was last revised on 2018. Lymphocyte pct 9.0 % [facility] Comment: Interpretive Data Percent cell count reference ranges are not reported, since discordance with absolute values may lead to misinterpretation of CBC data. Current Interpretive Data was last revised on 2018. Monocyte pct 7.9 % [facility] Comment: Interpretive Data Percent cell count reference ranges are not reported, since discordance with absolute values may lead to misinterpretation of CBC data. Current Interpretive Data was last revised on 2018. Eosinophil pct 0.6 % [facility] Comment: Interpretive Data Percent cell count reference ranges are not reported, since discordance with absolute values may lead to misinterpretation of CBC data. Current Interpretive Data was last revised on 2018. Basophil pct 0.1 % [facility] Comment: Interpretive Data Percent cell count reference ranges are not reported, since discordance with absolute values may lead to misinterpretation of CBC data. Current Interpretive Data was last revised on 2018. Blood specimen (specimen) 03/28/2021 5:47 PM CDT 03/28/2021 6:30 PM CDT Darrian Aguilar MD LAB BLOOD ORDERABLES Fin al Result [facility] [place] [address] * Type and screen (03/28/2021 5:47 PM CDT) Pb, indirect Negative [facility] ABO Rh A Positive [facility] Blood specimen (specimen) 03/28/2021 5:47 PM CDT 03/28/2021 7:23 PM CDT [facility]arrative [facility] - 03/28/2021 8:34 PM CDT Has the patient had Daratumumab or Isatuximab in the past 6 months?->Unknown Darrian Aguilar MD LAB BLOOD BANK TEST ORDE RABLES Final Result [facility] [place] [place] [address] * (ABNORMAL) Protime-INR (03/28/2021 5:47 PM CDT) Pathologist [facility] PT 15.7(H) 9.5 - 13.[address] [facility] INR 1.4(H) 0.9 - 1.[address] [facility] Comment: Interpretive data Oral anticoagulant therapeutic ranges: Venous thromboembolism prophylaxis or treatment: 2.0-3.0 CARDIOLOGY Standard range: 2.0-3.0 High-intensity range: 2.5-3.5 Refer to indication-specific guidelines for appropriate target ranges for prosthetic heart valve replacement. Current interpretive data was last revised on 2019. Blood specimen (specimen) 03/28/2021 5:47 PM CDT 03/28/2021 6:29 PM CDT us Darrian Aguilar MD LAB BLOOD ORDERABLES Fin al Result [facility] [place] [address] * (ABNORMAL) CBC with auto differential (03/28/2021 5:47 PM CDT) [facility] WBC 13.5(H) 3.8 - 9.9 K/cumm [facility] Hgb 9.6(L) 13.0 - 17.5 g/dL [facility] Hct 28.6(L) 38.9 - 50.3 % [facility] Plt 244 150 - 400 K/cumm [facility] MPV 11.8 9.1 - 12.[address] [facility] RBC 3.45(L) 4.30 - 5.80 M/cumm [facility] MCV 82.9 81.3 - 96.[address] [facility] MCH 27.8 27.1 - 33.[address] [facility] MCHC 33.6 32.3 - 35.7 g/dL [facility] RDW CV 17.0(H) 11.1 - 14.9 % [facility] RDW SD 50.9(H) 35.7 - 48.[address] [facility] NRBC abs 0.00 0.00 - 0.01 K/cumm [facility] Blood specimen (specimen) 03/28/2021 5:47 PM CDT 03/28/2021 6:30 PM CDT Darrian Aguilar MD LAB BLOOD ORDERABLES Fin al Result Performing Organization Address [facility] de Phone Number [facility] [place] [place] [place] [address] * Lactate (03/28/2021 5:47 PM CDT) Lactate 1.0 0.7 - 2.0 mmol/L [facility] Blood specimen (specimen) 03/28/2021 5:47 PM CDT 03/28/2021 6:29 PM CDT Darrian Aguilar MD LAB BLOOD ORDERABLES Fin al Result Performing Organization Address [facility] de Phone Number [facility] [place] [address] * Phosphorus (03/28/2021 5:47 PM CDT) Phosphorus, pl 3.6 2.3 - 4.5 mg/dL [facility] Blood specimen (specimen) 03/28/2021 5:47 PM CDT 03/28/2021 6:30 PM CDT Darrian Aguilar MD LAB BLOOD ORDERABLES Fin al Result Performing Organization Address [facility] [place] [address] * Magnesium (03/28/2021 5:47 PM CDT) Magnesium 1.5 1.4 - 2.5 mg/dL [facility] Blood specimen (specimen) 03/28/2021 5:47 PM CDT 03/28/2021 6:30 PM CDT us Darrian Aguilar MD LAB BLOOD ORDERABLES Fin al Result [facility] [place] [address] * (ABNORMAL) Comprehensive metabolic panel (03/28/2021 5:47 PM CDT) Sodium 133(L) 135 - 145 mmol/L [facility] Potassium, pl 3.8 3.3 - 4.9 mmol/L [facility] Chloride 104 97 - 110 mmol/L [facility] CO2 18(L) 22 - 32 mmol/L [facility] Anion gap 11 2 - 15 mmol/L [facility] BUN 10 8 - 25 mg/dL [facility] Creatinine 0.60(L) 0.80 - 1.30 mg/dL [facility] Glucose 99 70 - 199 mg/dL [facility] Comment: Interpretive Data Fasting glucose >/= [...] 2017. Calcium 8.7 8.5 - 10.3 mg/dL [facility] Bilirubin, total 2.5(H) 0.1 - 1.2 mg/dL [facility] Protein, pl 6.5 6.5 - 8.5 g/dL [facility] Albumin 2.8(L) 3.5 - 5.0 g/dL [facility] Alk phos 88 40 - 130 Units/L [facility] ALT 33 7 - 55 Units/L [facility] AST 29 10 - 50 Units/L [facility] Blood specimen (specimen) 03/28/2021 5:47 PM CDT 03/28/2021 6:30 PM CDT us Darrian Aguilar MD LAB BLOOD ORDERABLES Fin al Result [facility] [place] [address] documented in this encounter Visit Diagnoses Diagnosis Infected fluid collection without fistula- Primary Unspecified infectious and parasitic diseases Diagnosis unknown Complicated UTI (urinary tract infection) Continuous leakage of urine Continuous leakage Paraplegia (HCC) Paraplegia Pressure injury of skin of buttock Anemia Unspecified anemia HTN (hypertension) Unspecified essential hypertension S/P urological surgery Elevated bilirubin Hyponatremia Hyposmolality and/or hyponatremia Tachypnea Septic shock (HCC) Fever Fever, unspecified Diarrhea Atypical chest pain Other chest pain Discharge planning issues documented in this encounter Administered Medications Inactive Administered Medications - up to 3 most recent administrations Medication Order MAR Action Action Date Dose Rate Site acetaminophen (TYLENOL) tablet 650 mg 650 mg, oral, Every 6 hours PRN, 2nd line for pain, headaches, fever, Starting on 03/29/21 at 0724, No more than 4g total acetaminophen from all sources Given 04/07/2021 6:06 PM CDT 650 mg Given 04/06/2021 12:43 PM CDT 650 mg Given 04/06/2021 6:54 AM CDT 650 mg alteplase (CATHFLO) 1 mg/mL syringe (premix) 1 mg 1 mg, intra-catheter, Once as needed, other, catheter clearance, Starting on 04/06/21 at 0503, For 1 dose, 60 to 120 minute dwell time. Refrigerate, Indications: Catheter clearanceIndications:Catheter clearance Given 04/06/2021 8:34 PM CDT 1 mg amLODIPine (NORVASC) tablet 10 mg 10 mg, oral, Daily, First dose on Wed03/28/21 at 1815, Hold for SBP < 120 Given 04/09/2021 8:48 AM CDT 10 mg Given 04/08/2021 8:38 AM CDT 10 mg Given 04/07/2021 8:54 AM CDT 10 mg calcium carbonate (TUMS) chewable tablet 1,000 mg 1,000 mg (400 mg of elemental calcium), oral, 4 times daily PRN, indigestion, Starting on Wed04/06/21 at 0910 Given 04/10/2021 11:07 AM CDT 1,000 mg Given 04/09/2021 8:55 AM CDT 1,000 mg Given 04/08/2021 4:57 PM CDT 1,000 mg carvediloL (COREG) tablet 3.125 mg 3.125 mg, oral, 2 times daily with meals (bkfst, dinner), First dose on Wed03/28/21 at 1815 Given 04/03/2021 9:23 AM CDT 3.125 mg Given 04/02/2021 5:35 PM CDT 3.125 mg Given 04/02/2021 7:51 AM CDT 3.125 mg carvediloL (COREG) tablet 3.125 mg 3.125 mg, oral, 2 times daily with meals (bkfst, dinner), First dose (after last modification) on Ramandeep 04/03/21 at 1800 Given 04/09/2021 5:41 PM CDT 3.125 m g Given 04/09/2021 8:49 AM CDT 3.125 mg Given 04/08/2021 8:44 PM CDT 3.125 mg carvediloL (COREG) tablet 3.125 mg 3.125 mg, oral, 2 times daily with meals (bkfst, dinner), First dose (after last modification) on Ramandeep 04/10/21 at 0800 Given 04/11/2021 6:59 PM CDT 3.125 mg Given 04/11/2021 9:40 AM CDT 3.125 mg Given 04/10/2021 5:15 PM CDT 3.125 mg cefTRIAXone (ROCEPHIN) 2,000 mg/20 mL in sterile water (premix) 2,000 mg 2,000 mg, intravenous, at 1,200 mL/hr, Administer over 1 Minutes, Every 24 hours scheduled, First dose on Wed04/07/21 at 1300, Indications: Bone/Joint InfectionIndications:Bone/Joint Infection Given 04/11/2021 11:33 AM CDT 2,000 mg 1200 mL/hr Given 04/10/2021 1:20 PM CDT 2,000 mg 1200 mL/hr Given 04/09/2021 1:04 PM CDT 2,000 mg 1200 mL/hr cloNIDine (CATAPRES) tablet 0.1 mg 0.1 mg, oral, 2 times daily, First dose (after last modification) on Wed04/01/21 at 2100 Given 04/03/2021 9:23 AM CDT 0.1 mg Given 04/02/2021 9:24 PM CDT 0.1 mg Given 04/02/2021 7:50 AM CDT 0.1 mg cloNIDine (CATAPRES) tablet 0.2 mg 0.2 mg, oral, 2 times daily, First dose on Wed03/28/21 at 2100 Given 04/01/2021 10:16 AM CDT 0.2 mg cyclobenzaprine (FLEXERIL) tablet 5 mg 5 mg, oral, 3 times daily PRN, muscle spasms, Starting on Wed03/31/21 at 0939 Given 04/11/2021 10:28 AM CDT 5 m g Given 04/10/2021 1:30 PM CDT 5 mg Given 04/08/2021 4:03 PM CDT 5 mg diphenhydrAMINE (BENADRYL) tab/cap 25 mg 25 mg, oral, Once, On Wed03/28/21 at 2045, For 1 dose Given 03/28/2021 9:35 PM CDT 25 mg diphenhydrAMINE (BENADRYL) tab/cap 25 mg 25 mg, oral, Once, On Wed03/29/21 at 0800, For 1 dose Given 03/29/2021 7:40 AM CDT 25 mg diphenhydrAMINE (BENADRYL) tab/cap 25 mg 25 mg, oral, Every 8 hours, First dose on Wed03/29/21 at 1515, Please give prior to administration of vancomycin Given 04/01/2021 10:16 AM CDT 25 mg Given 04/01/2021 2:11 AM CDT 25 mg Given 03/31/2021 3:11 AM CDT 25 mg diphenhydrAMINE (BENADRYL) tab/cap 25 mg 25 mg, oral, Daily, First dose (after last modification) on Wed04/02/21 at 1400, Premed for Vancomycin Given 04/09/2021 1:04 PM CDT 25 mg Given 04/08/2021 12:45 PM CDT 25 mg Given 04/06/2021 2:22 PM CDT 25 mg enoxaparin (LOVENOX) syringe 40 mg 40 mg, subcutaneous, Every 12 hours scheduled, First dose (after last modification) on Wed03/28/21 at 2100, Indications: Deep Vein Thrombosis PreventionIndications:Deep Vein Thrombosis Prevention Given 03/29/2021 7:56 AM CDT 40 mg Left Lower Abdomen Given 03/28/2021 7:50 PM CDT 40 mg Le ft Upper Abdomen enoxaparin (LOVENOX) syringe 40 mg 40 mg, subcutaneous, Daily (for enoxaparin), First dose on Wed04/01/21 at 2100, Indications: Deep Vein Thrombosis PreventionIndications:Deep Vein Thrombosis Prevention Given 04/01/2021 9:20 PM CDT 40 mg Right Lower Abdomen enoxaparin (LOVENOX) syringe 40 mg 40 mg, subcutaneous, Every 12 hours scheduled, First dose (after last modification) on Wed04/02/21 at 1345, Indications: Deep Vein Thrombosis PreventionIndications:Deep Vein Thrombosis Prevention Given 04/11/2021 9:39 AM CDT 40 mg Left Lower Abdomen Given 04/10/2021 8:16 PM CDT 40 mg Le ft Upper Arm Given 04/10/2021 8:46 AM CDT 40 mg Ri ght Lower Abdomen famotidine (PEPCID) tablet 20 mg 20 mg, oral, Daily, First dose on Wed04/06/21 at 1030 Given 04/09/2021 8:48 AM CDT 20 mg Given 04/08/2021 8:38 AM CDT 20 mg Given 04/07/2021 8:54 AM CDT 20 mg fentaNYL (DURAGESIC) 25 mcg/hr patch 72 hour 1 patch 1 patch, transdermal, Administer over 72 Hours, Every 72 hours, First dose on Wed03/28/21 at 2200, Apply to an area with sufficient adipose tissue Remove according to hospital policy. Dispose in Stericycle CsRx bin and document in Pyxis with witness. Medication Applied 04/09/2021 9:03 PM CDT 1 patch Back Medication Applied 04/06/2021 10:30 PM CDT 1 patch Back Medication Applied 04/03/2021 9:43 PM CDT 1 patch Back ferrous sulfate tablet 325 mg 325 mg (65 mg of elemental iron), oral, Daily with breakfast, First dose on 03/29/21 at 0800, Indications: Iron Deficiency AnemiaIndications:Iron Deficiency Anemia Given 04/09/2021 8:49 AM CDT 325 mg Given 04/08/2021 8:37 AM CDT 325 mg Given 04/07/2021 8:55 AM CDT 325 mg ferrous sulfate tablet 325 mg 325 mg (65 mg of elemental iron), oral, 2 times daily with meals (bkfst, lunch), First dose (after last modification) on Ramandeep 04/10/21 at 0800, Indications: Iron Deficiency AnemiaIndications:Iron Deficiency Anemia Given 04/11/2021 11:33 AM CDT 32 5 mg Given 04/11/2021 9:40 AM CDT 325 mg Given 04/10/2021 1:20 PM CDT 325 mg furosemide (LASIX) 10 mg/mL injection 20 mg 20 mg, intravenous, Once, On Wed03/30/21 at 1100, For 1 dose, For IV push: administer doses < 160 mg at a rate of 20 -40 mg/min. Doses >/= 160 mg should be administered no faster than 4 mg/min. Room temperature only Given 03/30/2021 11:45 AM CDT 20 mg gabapentin (NEURONTIN) capsule 300 mg 300 mg, oral, Nightly, First dose on Wed03/28/21 at 2100, Do not crush, break, or open. Given 04/10/2021 8:16 PM CDT 300 mg Given 04/09/2021 9:03 PM CDT 300 mg Given 04/08/2021 8:44 PM CDT 300 mg gadoterate meglumine (DOTAREM) 0.5 mmol/mL injection 20 mL 20 mL, intravenous, Once in imaging, contrast, Starting on 03/29/21 at 1716, For 1 dose Given 03/29/2021 5:17 PM CDT 20 mL heparin 10 unit/mL flush 50 Units 50 Units (5 mL), IV flush, As needed, line care, Starting on 04/05/21 at 1319 Given 04/10/2021 8:17 PM CDT 50 Uni ts Given 04/10/2021 1:20 PM CDT 50 Units Given 04/09/2021 10:13 PM CDT 50 Units HYDROcodone-acetaminophen (NORCO) 10-325 mg per tablet 1 tablet 1 tablet, oral, Every 4 hours PRN, 1st line for pain, 2nd line for pain, Starting on Wed03/28/21 at 1741, Indications: PainIndications:Pain Given 04/11/2021 7:45 PM CDT 1 tablet Given 04/11/2021 10:27 AM CDT 1 tablet Given 04/10/2021 10:59 AM CDT 1 tablet linaCLOtide (LINZESS) capsule 145 mcg 145 mcg, oral, Daily, First dose on Wed03/28/21 at 1815, Do not crush - May open and disperse in water 30 mL, swirl for at least 20 seconds. Administer immediately. Repeat process if any beads remain behind. Flush. Do not chew the beads., Indications: chronic idiopathic constipationIndications:chronic idiopathic constipation Given 04/10/2021 8:48 AM CDT 145 mcg Given 04/09/2021 8:49 AM CDT 145 mcg Given 04/08/2021 8:37 AM CDT 145 mcg loperamide (IMODIUM) capsule 2 mg 2 mg, oral, 4 times daily PRN, diarrhea, Starting on Wed04/09/21 at 1713, May start dose after specimen collected. Maximum recommended dose 16 mg/day Given 04/09/2021 5:41 PM CDT 2 mg meropenem (MERREM) 1,000 mg/110 mL in sodium chloride 0.9% (premix) 1,000 mg 1,000 mg, intravenous, at 220 mL/hr, Administer over 30 Minutes, Every 8 hours scheduled, First dose on Wed03/28/21 at 1800, Indications: Urinary Tract/Genitourinary InfectionIndications:Urinary Tract/Genitourinary Infection New Bag 03/29/2021 5:38 AM CDT 1,000 mg 2 20 mL/hr New Bag 03/28/2021 7:52 PM CDT 1,000 mg 220 mL/hr meropenem (MERREM) 2,000 mg/120 mL in sodium chloride 0.9% (premix) 2,000 mg 2,000 mg, intravenous, at 240 mL/hr, Administer over 30 Minutes, Every 8 hours scheduled, First dose (after last modification) on Wed03/29/21 at 1400, Indications: Urinary Tract/Genitourinary InfectionIndications:Urinary Tract/Genitourinary Infection New Bag 04/07/2021 5:31 AM CDT 2,000 mg 2 40 mL/hr New Bag 04/06/2021 10:49 PM CDT 2,000 mg 240 mL/hr New Bag 04/06/2021 3:49 PM CDT 2,000 mg 240 mL/hr nitroglycerin (NITROSTAT) 0.4 mg sublingual tablet - ADS Override Pull Starting on Wed04/06/21 at 0905, For 1 dose, Created by cabinet override nitroglycerin (NITROSTAT) sublingual tablet 0.4 mg 0.4 mg, sublingual, Every 5 min PRN, chest pain, Starting on Wed04/06/21 at 0905, May administer up to 3 doses per episode. Given 04/08/2021 5:03 PM CDT 0.4 mg Given 04/06/2021 9:06 AM CDT 0.4 mg ondansetron (ZOFRAN) injection 4 mg 4 mg, intravenous, Administer over 2 Minutes, Every 6 hours PRN, nausea, vomiting, if not tolerating PO, Starting on Wed03/28/21 at 1716, Indications: Nausea and VomitingIndications:Nausea and Vomiting Given 04/11/2021 11:31 AM CDT 4 m g Given 04/07/2021 1:32 PM CDT 4 mg Given 04/05/2021 6:44 PM CDT 4 mg ondansetron ODT (ZOFRAN-ODT) disintegrating tablet 4 mg 4 mg, oral, Every 6 hours PRN, nausea, vomiting, Starting on Wed03/28/21 at 1716, Indications: Nausea and VomitingIndications:Nausea and Vomiting Given 04/10/2021 1:20 PM CDT 4 mg Given 04/09/2021 1:04 PM CDT 4 mg Given 04/08/2021 12:48 PM CDT 4 mg oxyCODONE (ROXICODONE) tablet 5 mg 5 mg, oral, Once, On 03/31/21 at 1830, For 1 dose, Indications: PainIndications:Pain Given 03/31/2021 5:57 PM CDT [address] (PROTONIX) extended release tablet 40 mg 40 mg, oral, Daily, First dose on 03/29/21 at 0900, Do not crush, chew, cut, dissolve, open or otherwise manipulate tablet/capsule., Indications: Treatment of Non-Bleeding Gastric DisorderIndications:Treatment of Non-Bleeding Gastric Disorder Given 04/09/2021 8:49 AM CDT 40 mg Given 04/08/2021 8:38 AM CDT 40 mg Given 04/07/2021 8:54 AM CDT [address] (PROTONIX) extended release tablet 40 mg 40 mg, oral, 2 times daily before meals (bkfst, dinner), First dose (after last modification) on Wed04/09/21 at 1730, Do not crush, chew, cut, dissolve, open or otherwise manipulate tablet/capsule., Indications: Treatment of Non-Bleeding Gastric DisorderIndications:Treatment of Non-Bleeding Gastric Disorder Given 04/11/2021 7:00 PM CDT 40 mg Given 04/11/2021 9:00 AM CDT 40 mg Given 04/10/2021 5:15 PM CDT 40 mg phytonadione (VITAMIN K1) tablet 5 mg 5 mg, oral, Daily, First dose on 03/29/21 at 1630, For 3 days, Indications: Nutritional SupplementIndications:Nutritional Supplement Given 03/31/2021 8:00 AM CDT 5 mg Given 03/30/2021 10:18 AM CDT 5 mg Given 03/29/2021 7:46 PM CDT 5 mg polyethylene glycol (MIRALAX) packet 17 g 17 g, oral, Daily PRN, constipation, Starting on Wed04/10/21 at 0730, Indications: constipationIndications:constipation potassium chloride ER (KLOR-CON) extended release tablet 20 mEq 20 mEq, oral, Nightly, First dose on Wed03/28/21 at 2100, Do not crush, chew, cut, dissolve, open or otherwise manipulate tablet/capsule. Given 04/09/2021 9:03 PM CDT 20 mEq Given 04/08/2021 8:44 PM CDT 20 mEq Given 04/07/2021 9:31 PM CDT 20 mEq potassium chloride ER (KLOR-CON) extended release tablet 40 mEq 40 mEq, oral, Daily, First dose on Sat 21 at 0900, Do not crush, chew, cut, dissolve, open or otherwise manipulate tablet/capsule. Given 04/11/2021 9:40 AM CDT 40 mEq Given 04/10/2021 8:47 AM CDT 40 mEq Given 04/09/2021 8:48 AM CDT 40 mEq senna-docusate (PERICOLACE) 8.6-50 mg per tablet 1 tablet 1 tablet, oral, 2 times daily, First dose on Wed03/28/21 at 2100, Indications: constipationIndications:constipation Given 04/09/2021 8:48 AM CDT 1 table t Given 04/08/2021 8:45 PM CDT 1 tablet Given 04/08/2021 8:37 AM CDT 1 tablet sodium chloride 0.9% bolus 1,000 mL 1,000 mL, intravenous, at 333.3 mL/hr, Administer over 3 Hours, Once, On Wed04/09/21 at 1915, For 1 dose New Bag 04/09/2021 7:04 PM CDT 1,000 mL 333.3 mL/hr sodium chloride 0.9% bolus 1,000 mL 1,000 mL, intravenous, at 333.3 mL/hr, Administer over 3 Hours, Once, On Wed04/10/21 at 1030, For 1 dose New Bag 04/10/2021 10:47 AM CDT 1,000 mL 333.3 mL/hr sodium chloride 0.9% infusion 100 mL/hr, intravenous, Continuous, Starting on Wed03/28/21 at 1800, On hold since Wed03/29/2021 at 1600 until manually unheld New Bag 03/29/2021 5:38 AM CDT 100 mL/hr 100 mL/hr New Bag 03/28/2021 5:37 PM CDT 100 mL/hr 100 mL/hr sucralfate (CARAFATE) tablet 1 g 1 g, oral, 3 times daily before meals, First dose on Wed03/28/21 at 1815 Given 04/11/2021 6:59 PM CDT 1 g Given 04/11/2021 11:33 AM CDT 1 g Given 04/11/2021 9:00 AM CDT 1 g vancomycin (VANCOCIN) 2,000 mg in sodium chloride 0.9% 500 mL IVPB 2,000 mg (rounded from 1,999.5 mg = 15 mg/kg ? 133.3 kg), intravenous, at 260 mL/hr, Administer over 120 Minutes, Every 12 hours, First dose on Wed03/28/21 at 1900, Indications: Abdominal/Pelvic InfectionIndications:Abdominal/Pe lvic Infection New 03/29/2021 7:44 AM CDT 2,000 mg 260 mL/hr 03/28/2021 9:42 PM CDT 2,000 mg 260 mL/hr vancomycin (VANCOCIN) 2,000 mg in sodium chloride 0.9% 500 mL IVPB 2,000 mg, intravenous, at 260 mL/hr, Administer over 120 Minutes, Every 8 hours, First dose (after last modification) on Wed03/30/21 at 1200, Indications: Abdominal/Pelvic Infection, On hold since Wed03/31/2021 at 0427 until manually unheldIndications:Abdominal/Pelvi c Infection 03/30/2021 8:37 PM CDT 2,000 mg 260 mL/hr 03/30/2021 12:43 PM CDT 2,000 mg 260 mL/hr vancomycin (VANCOCIN) 2,000 mg in sodium chloride 0.9% 500 mL IVPB 2,000 mg (rounded from 1,999.5 mg = 15 mg/kg ? 133.3 kg), intravenous, at 260 mL/hr, Administer over 120 Minutes, Every 24 hours, First dose on Wed04/02/21 at 1400, Indications: Abdominal/Pelvic InfectionIndications:Abdominal/Pe lvic Infection 04/04/2021 1:57 PM CDT 2,000 mg 260 mL/hr 04/03/2021 2:02 PM CDT 2,000 mg 260 mL/hr 04/02/2021 2:18 PM CDT 2,000 mg 260 mL/hr vancomycin (VANCOCIN) 2,000 mg in sodium chloride 0.9% 500 mL IVPB 2,000 mg (rounded from 1,999.5 mg = 15 mg/kg ? 133.3 kg), intravenous, at 260 mL/hr, Administer over 120 Minutes, Every 12 hours, First dose (after last modification) on Wed04/05/21 at 0200, Indications: Abdominal/Pelvic InfectionIndications:Abdominal/Pe lvic Infection New 04/07/2021 2:18 AM CDT 2,000 mg 260 mL/hr 04/06/2021 3:53 PM CDT 2,000 mg 260 mL/hr 04/05/2021 2:30 PM CDT 2,000 mg 260 mL/hr vancomycin (VANCOCIN) 2,500 mg in sodium chloride 0.9% 500 mL IVPB 2,500 mg, intravenous, at 262.5 mL/hr, Administer over 120 Minutes, Every 8 hours, First dose (after last modification) on [facility] 03/29/21 at 1545, Indications: Abdominal/Pelvic InfectionIndications:Abdominal/ Pelvic Infection 03/30/2021 4:06 AM CDT 2,500 mg 262.5 mL/hr 03/29/2021 7:39 PM CDT 2,500 mg 262.5 mL/hr vancomycin (VANCOCIN) 250 mg in sodium chloride 0.9% 100 mL IVPB 250 mg, intravenous, at 102.5 mL/hr, Administer over 60 Minutes, Once, On Wed04/01/21 at 1330, For 1 dose, Give additional 250 now for a total of 2000 mg today., Indications: Abdominal/Pelvic InfectionIndications:Abdominal/ Pelvic Infection 04/01/2021 1:58 PM CDT 250 mg 102.5 mL/hr vancomycin 1,750 mg/517.5 mL sodium chloride 0.9% (premix) 1,750 mg 1,750 mg, intravenous, Administer over 120 Minutes, Every 8 hours, First dose on Wed04/01/21 at 0900, Indications: Urinary Tract/Genitourinary InfectionIndications:Urinary Tract/Genitourinary Infection 04/01/2021 10:34 AM CDT 1,750 mg documented in this encounter Discontinued Medications Medication Sig Discontinue Reason Start Date End Da te carvedilol (COREG) 6.25 mg tablet Take 1 tablet (6.25 mg total) by mouth 2 (two) times a day 01/23/2019 03/28/2021 amLODIPine (NORVASC) 10 mg tablet Take 1 tablet (10 mg total) by mouth daily 01/24/2019 03/28/2021 lisinopril (PRINIVIL,ZESTRIL) 10 mg tablet Take 1 tablet (10 mg total) by mouth 2 (two) times a day 01/23/2019 03/28/2021 oxybutynin (DITROPAN) 5 mg tabletIndications:Feliciano dder Hyperactivity,Neuroge mona Bladder Take 1 tablet (5 mg total) by mouth 3 (three) times a day 01/23/2019 03/28/2021 calcium-vitamin D3-vitamin K (CALCIUM FOR WOMEN) 500-100-40 mg-unit-mcg tablet,chewableIndica tions:Vitamin D Deficiency Take 1 tablet by mouth daily. 03/28/2021 cyanocobalamin (vitamin B-12) 1,000 mcg tabletIndications:Pre vention of Vitamin B12 Deficiency Take 1,000 mcg by mouth daily. 03/28/2021 cyclobenzaprine (FLEXERIL) 10 mg tabletIndications:Mus lizzy Spasm Take 10 mg by mouth daily. 03/28/2021 HYDROcodone-acetamino phen (NORCO) 7.5-325 mg per tabletIndications:Ailyn n Take 1 tablet by mouth every 8 (eight) hours as needed for pain Indications: Pain. 03/28/2021 HYDROcodone-acetamino phen (NORCO) 10-325 mg per tabletIndications:Ailyn n Take 1 tablet by mouth every 4 (four) hours as needed for pain Reorder 04/11/2021 potassium chloride ER (KLOR-CON) 20 mEq CR tablet Take 2 tablets (40 mEq total) by mouth daily 04/12/2021 04/11/2021 hydrALAZINE (APRESOLINE) 10 mg tabletIndications:hyp ertension Take 10 mg by mouth 4 (four) times a day Stop Taking at Discharge 04/11/2021 celecoxib (CeleBREX) 200 mg capsule Take 200 mg by mouth daily Stop Taking at Discharge 04/11/2021 cloNIDine (CATAPRES) 0.1 mg tablet Take 0.1 mg by mouth 2 (two) times a day Stop Taking at Discharge 04/11/2021 losartan (COZAAR) 50 mg tablet Take 50 mg by mouth daily Stop Taking at Discharge 04/11/2021 fentaNYL (DURAGESIC) 25 mcg/hr Place 1 patch on the skin every third day Stop Taking at Discharge 04/11/2021 ferrous sulfate 325 mg (65 mg of elemental iron) tabletIndications:Iro n Deficiency Anemia Take 65 mg of elemental iron by mouth daily with breakfast Stop Taking at Discharge 04/11/2021 potassium chloride ER (potassium chloride ER) 20 mEq CR tablet Take 40 mEq by mouth daily Stop Taking at Discharge 04/11/2021 potassium chloride ER (potassium chloride ER) 20 mEq CR tablet Take 20 mEq by mouth nightly Stop Taking at Discharge 04/11/2021 amLODIPine (NORVASC) 10 mg tablet Take 10 mg by mouth daily Stop Taking at Discharge 04/11/[address] (PROTONIX) 40 mg EC tablet Take 40 mg by mouth daily Stop Taking at Discharge 04/11/2021 documented as of this encounter Historical Medications * This list may reflect changes made after this encounter. gabapentin (NEURONTIN) 300 mg capsule Take 300 mg by mouth nightly pantoprazole DR (PROTONIX) 40 mg EC tablet Take 40 mg by mouth daily 1 amLODIPine (NORVASC) 10 mg tablet Take 10 mg by mouth daily 1 HYDROcodone-acet aminophen (NORCO) 10-325 mg per tabletIndication s:Pain Take 1 tablet by mouth every 4 (four) hours as needed for pain 1 linaCLOtide (LINZESS) 145 mcg capsule 145 mcg daily 4 potassium chloride ER (potassium chloride ER) 20 mEq CR tablet Take 20 mEq by mouth nightly 1 potassium chloride ER (potassium chloride ER) 20 mEq CR tablet Take 40 mEq by mouth daily 1 ferrous sulfate 325 mg (65 mg of elemental iron) tabletIndication s:Iron Deficiency Anemia Take 65 mg of elemental iron by mouth daily with breakfast 1 fentaNYL (DURAGESIC) 25 mcg/hr Place 1 patch on the skin every third day 1 losartan (COZAAR) 50 mg tablet Take 50 mg by mouth daily 1 carvediloL (COREG) 3.125 mg tablet Take 3.125 mg by mouth 2 (two) times a day with meals 1 cloNIDine (CATAPRES) 0.1 mg tablet Take 0.1 mg by mouth 2 (two) times a day 1 celecoxib (CeleBREX) 200 mg capsule Take 200 mg by mouth daily 1 sucralfate (CARAFATE) 1 gram tablet Take 1 g by mouth 3 (three) times a day before meals 1 hydrALAZINE (APRESOLINE) 10 mg tabletIndication s:hypertension Take 10 mg by mouth 4 (four) times a day 1 added in this encounter Active and Recently Administered Medications Times are shown in CDT. Scheduled Medication Order 04/09/2021 04/10/2021 04/11/2021 amLODIPine (NORVASC) tablet 10 mg (CANCELED) 10 mg, oral, Daily, First dose on Wed03/28/21 at 1815, Hold for SBP < 120 0848 (Given - Provider: Guerda Davenport, PARAM) carvediloL (COREG) tablet 3.125 mg (CANCELED) 3.125 mg, oral, 2 times daily with meals (bkfst, dinner), First dose (after last modification) on Ramandeep 04/03/21 at 1800 0849 (Given - Provider: Guerda Davenport RN)1741 (Given - Provider: Guerda Davenport RN) carvediloL (COREG) tablet 3.125 mg 3.125 mg, oral, 2 times daily with meals (bkfst, dinner), First dose (after last modification) on Ramandeep 04/10/21 at 0800 0847 (Given - Provider: Linda Bhat)1715 (Given - Provider: Linda Bhat) 0940 (Given - Provider: Catherine Alex RN)1859 (Given - Provider: Catherine Alex RN) cefTRIAXone (ROCEPHIN) 2,000 mg/20 mL in sterile water (premix) 2,000 mg 2,000 mg, intravenous, at 1,200 mL/hr, Administer over 1 Minutes, Every 24 hours scheduled, First dose on Wed04/07/21 at 1300, Indications: Bone/Joint Infection 1304 (Given - Provider: Guerda Davenport RN) 1320 (Given - Provider: Linda Bhat) 1133 (Given - Provider: Catherine Alex RN) diphenhydrAMINE (BENADRYL) tab/cap 25 mg (CANCELED) 25 mg, oral, Daily, First dose (after last modification) on Wed04/02/21 at 1400, Premed for Vancomycin 1304 (Given - Provider: Guerda Davenport, PARAM) enoxaparin (LOVENOX) syringe 40 mg 40 mg, subcutaneous, Every 12 hours scheduled, First dose (after last modification) on Wed04/02/21 at 1345, Indications: Deep Vein Thrombosis Prevention 0847 (Given - Provider: Guerda Davenport RN)2103 (Given - Provider: [place] RN) 0846 (Given - Provider: Linda Bhat)2015 (Given - Provider: [place] RN) 0939 (Given - Provider: Catherine Alex RN) famotidine (PEPCID) tablet 20 mg (CANCELED) 20 mg, oral, Daily, First dose on Wed04/06/21 at 1030 0848 (Given - Provider: Guerda Davenport RN) fentaNYL (DURAGESIC) 25 mcg/hr patch 72 hour 1 patch 1 patch, transdermal, Administer over 72 Hours, Every 72 hours, First dose on Wed03/28/21 at 2200, Apply to an area with sufficient adipose tissue Remove according to hospital policy. Dispose in Stericycle CsRx bin and document in Pyxis with witness. 2101 (Medication Removed - Provider: [place] RN)2102 (Medication Applied - Provider: [place] RN) 1955 (Due: Medication Removed - Provider: Automatic Discharge Provider - Comment: Time automatically adjusted from order being discontinued) ferrous sulfate tablet 325 mg (CANCELED) 325 mg (65 mg of elemental iron), oral, Daily with breakfast, First dose on 03/29/21 at 0800, Indications: Iron Deficiency Anemia 0849 (Given - Provider: Guerda Davenport RN) ferrous sulfate tablet 325 mg 325 mg (65 mg of elemental iron), oral, 2 times daily with meals (bkfst, lunch), First dose (after last modification) on Ramandeep 04/10/21 at 0800, Indications: Iron Deficiency Anemia 0847 (Given - Provider: Linda Bhat)1320 (Given - Provider: Linda Bhat) 0940 (Given - Provider: Catherine Alex, PARAM)1133 (Given - Provider: Catherine Alex RN) gabapentin (NEURONTIN) capsule 300 mg 300 mg, oral, Nightly, First dose on Wed03/28/21 at 2100, Do not crush, break, or open. 2102 (Given - Provider: [place], PARAM) 2015 (Given - Provider: [place] RN) linaCLOtide (LINZESS) capsule 145 mcg 145 mcg, oral, Daily, First dose on Wed03/28/21 at 1815, Do not crush - May open and disperse in water 30 mL, swirl for at least 20 seconds. Administer immediately. Repeat process if any beads remain behind. Flush. Do not chew the beads., Indications: chronic idiopathic constipation 0849 (Given - Provider: Guerda Davenport RN) 0848 (Given - Provider: Linda Bhat) 1125 (Not Given - Provider: Catherine Alex RN - Reason: Other) pantoprazole DR (PROTONIX) extended release tablet 40 mg (CANCELED) 40 mg, oral, Daily, First dose on Wed03/29/21 at 0900, Do not crush, chew, cut, dissolve, open or otherwise manipulate tablet/capsule., Indications: Treatment of Non-Bleeding Gastric Disorder 0849 (Given - Provider: Guerda Davenport RN) pantoprazole DR (PROTONIX) extended release tablet 40 mg 40 mg, oral, 2 times daily before meals (bkfst, dinner), First dose (after last modification) on Wed04/09/21 at 1730, Do not crush, chew, cut, dissolve, open or otherwise manipulate tablet/capsule., Indications: Treatment of Non-Bleeding Gastric Disorder 1741 (Given - Provider: Guerda Davenport RN) 0847 (Given - Provider: Linda Bhat)1715 (Given - Provider: Linda Bhat) 0900 (Given - Provider: Catherine Alex RN)1900 (Given - Provider: Catherine Alex RN) potassium chloride ER (KLOR-CON) extended release tablet 20 mEq (CANCELED) 20 mEq, oral, Nightly, First dose on Wed03/28/21 at 2100, Do not crush, chew, cut, dissolve, open or otherwise manipulate tablet/capsule. 2102 (Given - Provider: [place] RN) potassium chloride ER (KLOR-CON) extended release tablet 40 mEq 40 mEq, oral, Daily, First dose on Wed03/29/21 at 0900, Do not crush, chew, cut, dissolve, open or otherwise manipulate tablet/capsule. 0848 (Given - Provider: Guerda Davenport RN) 0847 (Given - Provider: Linda Bhat) 0940 (Given - Provider: Catherine Alex RN) senna-docusate (PERICOLACE) 8.6-50 mg per tablet 1 tablet 1 tablet, oral, 2 times daily, First dose on Wed03/28/21 at 2100, Indications: constipation 0848 (Given - Provider: Guerda Davenport RN)2117 (Not Given - Provider: [place] RN - Reason: Patient/family refused - Comment: pt. had 2 BM today) 0848 (Not Given - Provider: Linda Bhat - Reason: Order parameters not met - Comment: had diarrhea)2015 (Not Given - Provider: [place] RN - Reason: Patient/family refused) 1031 (Not Given - Provider: Catherine Alex RN - Reason: Order parameters not met) sodium chloride 0.9% bolus 1,000 mL (COMPLETED) 1,000 mL, intravenous, at 333.3 mL/hr, Administer over 3 Hours, Once, On Wed04/09/21 at 1915, For 1 dose 1904 (New Bag - Provider: Guerda Davenport RN) sodium chloride 0.9% bolus 1,000 mL (COMPLETED) 1,000 mL, intravenous, at 333.3 mL/hr, Administer over 3 Hours, Once, On Ramandeep 04/10/21 at 1030, For 1 dose 1047 (New Bag - Provider: Linda Bhat) sucralfate (CARAFATE) tablet 1 g 1 g, oral, 3 times daily before meals, First dose on 03/28/21 at 1815 0848 (Given - Provider: Guerda Davenport RN)1304 (Given - Provider: Guerda Davenport RN)1741 (Given - Provider: Guerda Davenport RN) 0847 (Given - Provider: Linda Bhat)1320 (Given - Provider: Linda Bhat)1715 (Given - Provider: Linda Bhat) 0900 (Given - Provider: Catherine Alex, PARAM)1133 (Given - Provider: Catherine Alex, PARAM)1859 (Given - Provider: Catherine Alex, PARAM) PRN Medication Order 04/09/2021 04/10/2021 04/11/2021 acetaminophen (TYLENOL) tablet 650 mg 650 mg, oral, Every 6 hours PRN, 2nd line for pain, headaches, fever, Starting on 03/29/21 at 0724, No more than 4g total acetaminophen from all sources calcium carbonate (TUMS) chewable tablet 1,000 mg 1,000 mg (400 mg of elemental calcium), oral, 4 times daily PRN, indigestion, Starting on 04/06/21 at 0910 0855 (Given - Provider: Guerda Davenport RN)1126 (Not Given - Provider: Guerda Davenport RN - Reason: Patient/family refused) 1107 (Given - Provider: Guerda Davenport RN) cyclobenzaprine (FLEXERIL) tablet 5 mg 5 mg, oral, 3 times daily PRN, muscle spasms, Starting on 03/31/21 at 0939 1330 (Given - Provider: Linda Bhat) 1028 (Given - Provider: Catherine Alex, PARAM) heparin 10 unit/mL flush 50 Units 50 Units (5 mL), IV flush, As needed, line care, Starting on 04/05/21 at 1319 0855 (Given - Provider: Guerda Davenport RN)1304 (Given - Provider: Guerda Davenport RN)2213 (Given - Provider: [place] RN) 1320 (Given - Provider: Linda Bhat)2017 (Given - Provider: [place] RN) HYDROcodone-acetaminophe n (NORCO) 10-325 mg per tablet 1 tablet 1 tablet, oral, Every 4 hours PRN, 1st line for pain, 2nd line for pain, Starting on Wed03/28/21 at 1741, Indications: Pain 1059 (Given - Provider: Linda Bhat) 1027 (Given - Provider: Catherine Alex, PARAM)1945 (Given - Provider: [place] RN) loperamide (IMODIUM) capsule 2 mg 2 mg, oral, 4 times daily PRN, diarrhea, Starting on Wed04/09/21 at 1713, May start dose after specimen collected. Maximum recommended dose 16 mg/day 1741 (Given - Provider: Guerda Davenport RN) nitroglycerin (NITROSTAT) sublingual tablet 0.4 mg 0.4 mg, sublingual, Every 5 min PRN, chest pain, Starting on Wed04/06/21 at 0905, May administer up to 3 doses per episode. ondansetron (ZOFRAN) injection 4 mg(Linked Group 1) 4 mg, intravenous, Administer over 2 Minutes, Every 6 hours PRN, nausea, vomiting, if not tolerating PO, Starting on Wed03/28/21 at 1716, Indications: Nausea and Vomiting 1304 (See Alternative - Provider: Guerda Davenport RN) 1320 (See Alternative - Provider: Linda Bhat) 1131 (Given - Provider: Catherine Alex, PARAM) ondansetron ODT (ZOFRAN-ODT) disintegrating tablet 4 mg(Linked Group 1) 4 mg, oral, Every 6 hours PRN, nausea, vomiting, Starting on Wed03/28/21 at 1716, Indications: Nausea and Vomiting 1304 (Given - Provider: Guerda Davenport RN) 1320 (Given - Provider: Linda Bhat) 1131 (See Alternative - Provider: Catherine Alex RN) polyethylene glycol (MIRALAX) packet 17 g 17 g, oral, Daily PRN, constipation, Starting on Ramandeep 04/10/21 at 0730, Indications: constipation Linked Groups Order Group 1: ondansetron ODT (ZOFRAN-ODT) disintegrating tablet 4 mgJump to med 4 mg, oral, Every 6 hours PRN, nausea, vomiting, Starting on Wed03/28/21 at 1716, Indications: Nausea and Vomiting Or ondansetron (ZOFRAN) injection 4 mgJump to med 4 mg, intravenous, Administer over 2 Minutes, Every 6 hours PRN, nausea, vomiting, if not tolerating PO, Starting on Wed03/28/21 at 1716, Indications: Nausea and Vomiting documented in this encounter Orders Medications Ordered That Camron ht Not Have Been Administered Count Last Ordered Date First Ordered Date carvediloL (COREG) tablet 6.25 mg 2 021 04/03/2021 polyethylene glycol (MIRALAX) packet 17 g 2 04/10/2021 03/28/2021 diphenhydrAMINE (BENADRYL) tab/cap 25 mg 1 04/01/2021 acetaminophen (TYLENOL) tablet 650 mg 1 cloNIDine (CATAPRES) tablet 0.1 mg 1 2020 enoxaparin (LOVENOX) syringe 40 mg 1 2020 hydrALAZINE (APRESOLINE) tablet 10 mg 1 losartan (COZAAR) tablet 50 mg 1 03/28/2021 Lab Orders Without Results Count Last Ordered D ate First Ordered Date MAGNESIUM 1 04/10/2021 PHOSPHORUS 1 04/10/2021 CRP (ACUTE PHASE) 1 04/09/2021 ERYTHROCYTE SEDIMENTATION RATE 1 04/09/2021 D-DIMER, QUANTITATIVE 1 03/30/2021 BILIRUBIN, DIRECT 1 03/29/2021 OSMOLALITY, BLOOD 1 03/29/2021 PRO B-TYPE NATRIURETIC PEPTIDE 1 03/29/2021 Diet Count Last Ordered Date First Orde red Date ADULT DISCHARGE DIET 1 04/11/2021 Nursing Count Last Ordered Date First Orde red Date DISCHARGE INSTRUCTIONS 3 04/11/2021 INSERT LYNCH CATHETER 1 04/10/2021 Consult Count Last Ordered Date First Orde red Date IP CONSULT TO VASCULAR ACCESS TEAM 1 2020 IP CONSULT TO ORTHO SPINE 1 03/29/2021 CONSULT TO GENERAL INFECTIOUS DISEASE 1 CONSULT TO WOUND CARE 1 03/28/2021 IP CONSULT TO GENERAL SURGERY 1 03/28/2021 IP CONSULT TO NUTRITION SERVICES 1 03/28/20 IP CONSULT TO UROLOGY 1 03/28/2021 CORE MEASURES Count Last Ordered Date First Ord ered Date REASON FOR NO VTE PROPHYLAXI S - HOSPITAL ADMISSION - MEDICATIONS 1 03/29/2021 documented in this encounter Additional Health Concerns Infection Onset Date Last Indicated Resolved Time MRSA Comment: 03/31/2021 IP Review - 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 Not a candidate for isolation discontinuation at this time. 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
--- OUTSIDE RECORDS SUMMARY | 2024-11-11 02:13 | XMS_ITS | Encounter Summary ---
Author Organization [facility] Home Care Servic es Address [address] [place] [address] Phone Care Team Providers Care Medical Chemist Name Role Phone Saw Louie MD Primary Care Provider [phone] Reason for Visit * Reason Comments Urinary Symptom Encounter Details Date Type Department Care Team (Latest Contact Info) Description 12/24/2017 1:45 AM DIAL MOUNTER Home Care Visit [facility] [address] [address] [address] [place] [address] Nadya Palacio RN SN OASIS START OF CARE Social History Tobacco Use Types Packs/Day Years Used Date Smoking Tobacco: Every Day Sex and Gender Information Value Date Recorded Sex Assigned at Not on file Legal Sex Male 5:38 AM DIAL MOUNTER Gender Identity Male 05/21/2022 3:19 PM CDT Sexual Orientation Straight 05/21/2022 3: 19 PM CDT documented as of this encounter Last Filed Vital Signs Vital Sign Reading Time Taken Comments Blood Pressure 138/60 12/24/2017 2:39 PM DIAL MOUNTER Pulse 68 12/24/2017 2:39 PM DIAL MOUNTER 66 Temperature 36.1 ??C (96.9 ??F) 12/24/2017 2:39 PM CS T Respiratory Rate 16 12/24/2017 2:39 PM DIAL MOUNTER Oxygen Saturation 98% 12/24/2017 2:39 PM DIAL MOUNTER Inhaled Oxygen Concentration - - Weight 149.7 kg (330 lb) 12/24/2017 2:39 PM DIAL MOUNTER Height 195.6 cm (6' 5 ) 12/24/2017 2:39 PM DIAL MOUNTER Body Mass Index 39.13 12/24/2017 2:39 PM DIAL MOUNTER documented in this encounter Plan of Treatment [...] watcher auto flagging 07/01/2013 07/01/201310/03 4:34 PM DIAL MOUNTER documented as of this encounter Home Health Visit - Actions and Narratives Narratives Coding Review Completed: The documents have been reviewed in accordance with current [facility] interpretive guidelines and based on current coding guidelines and convention. Any changes to the diagnoses or assessment items are made solely at the discretion of the assessing clinician. Please review the diagnoses, symptom control ratings and documented OASIS changes within the record listed below, and alter as deemed appropriate by the clinician: PATIENT: Shawn Casey CLINICIAN: Nadya Palacio OASIS DATE: SOC [id number] CERT PERIOD: [id number] REVIEWED BY: Ang Herrera RN, [facility]- Inpatient Diagnosis: M1011 NA M1017 N39.0 M1021- N39.0 M1023 - G82.20, S24.102S, L89.150, N31.9, D50.9 Additional dx: E53.8, F41.9, F32.9, E66.9, Z87.440, Z89.519, Z79.891, Z68.39 OASIS M INDICATOR CHANGES: Per Agency policy, you must review the changes made and documented above, and make any post-review edits within 48 hours of receiving the review template. [id number] bedfast Per M1860 pt can be up to trace/wheelchair. Changed to response #3 Unable to transfer self. POC RECOMMENDATIONS: Per Agency policy, you must review the changes made and documented above, and make any post-review edits within 24 hours of receiving the review template. THANK YOU, Terry Herrera RN, [facility]-C documented in this encounter Care Teams Medical Chemist Relationship Specialty Start Date End Date Saw Louie MD [address] [place] [address] PCP - General 09/03/17 01/16/19 documented as of this encounter
--- OUTSIDE RECORDS SUMMARY | 2024-11-11 02:13 | XMS_ITS | Encounter Summary ---
Author Organization [facility] Facility Care Team Providers Care National Account Director Name Role Phone Unavailable Primary Care Provider Unavailabl e Encounter Details Date Type Department Care Team (Late st Contact Info) Description 12/28/2011 2:16 PM SMEARER - 12/28/2011 4:00 PM SMEARER [facility] Other specified pre-operative examination; Paraplegia (HCC); Neurogenic bladder; Morbid obesity (HCC); Urinary tract infection; Personal history of systemic steroid therapy; Tobacco use disorder Social History Tobacco Use Types Packs/Day Years Used Date Smoking Tobacco: Never Assessed Sex and Gender Information Value Date Recorded Sex Assigned at Not on file Legal Sex Male 5:38 AM SMEARER Gender Identity Male 05/21/2022 3:19 PM CDT Sexual Orientation Straight 05/21/2022 3: 19 PM CDT documented as of this encounter Plan of Treatment Not on file documented as of this encounter Visit Diagnoses Diagnosis Other specified pre-operative examination Paraplegia (HCC) Paraplegia Neurogenic bladder Neurogenic bladder, NOS Morbid obesity (HCC) Morbid obesity Urinary tract infection Urinary tract infection, site not specified Personal history of systemic steroid therapy Tobacco use disorder documented in this encounter
--- OUTSIDE RECORDS SUMMARY | 2024-11-11 02:13 | XMS_ITS | Encounter Summary ---
Author Organization [facility] Home Care Servic es Address [address] [place] [address] Phone Care Team Providers Care Log Processor Operator Name Role Phone Saw Louie MD Primary Care Provider [phone] Reason for Visit * Reason Comments Wound Check Encounter Details Date Type Department Care Team (Late st Contact Info) Description 02/03/2018 2:00 PM CDT Home Care Visit [facility] [address] [address] [address] [place] [address] Chel Teran HOME VISIT Social History Tobacco Use Types Packs/Day Years Used Date Smoking Tobacco: Every Day Sex and Gender Information Value Date Recorded Sex Assigned at Not on file Legal Sex Male 5:38 AM ASPHALT DAUBER Gender Identity Male 05/21/2022 3:19 PM CDT Sexual Orientation Straight 05/21/2022 3: 19 PM CDT documented as of this encounter Last Filed Vital Signs Vital Sign Reading Time Taken Comments Blood Pressure 110/70 02/03/2018 2:46 PM CDT Pulse 76 02/03/2018 2:46 PM CDT Temperature 36.9 ??C (98.5 ??F) 02/03/2018 2:46 PM CD T Respiratory Rate 18 02/03/2018 2:46 PM CDT Oxygen Saturation 97% 02/03/2018 2:46 PM CDT Inhaled Oxygen Concentration - - Weight - - Height - - Body Mass Index - - documented in this encounter Plan of Treatment [...] watcher auto flagging 07/01/2013 07/01/201310/03 4:34 PM ASPHALT DAUBER documented as of this encounter Home Health Visit - Care Plan Visit Details Visit Type -SN Home Visit Discipline -Residential Problems Problem Description Start Date Status Goals Interve ntions Infection Prevention - Catheter Disciplines: Residential Knowledge deficit of Infection prevention related to indwelling catheter 12/24/2017 Active - 1 problem intervention scheduled/documented in this visit Wound Care Disciplines: Residential, Interventional Techresident care supervisor needed 12/24/2017 Active - 6 problem interventions scheduled/documented in this visit Pain Disciplines: Residential, Interventional Tech Pain 12/24/2017 Active - 1 problem intervention scheduled/documented in this visit Interventions Intervention Associated Problem/Goal Status Variance Visit Notes Instruct on Incentive Spirometer Description: Instruct patient/caregiver in strategies to prevent urinary tract infection and how to recognize signs and symptoms of infection, and when to notify Home Care agency & physician. collect u/a with c&s 01/28/18 Problem:Infection Prevention - Catheter Completed Patient instructed on frequent/proper hand-washing techniques, Standard precautions, avoid crowds and persons with known infections, staying current with immunizations, s/s of infection, use of incentive spirometer, use of antibiotics and encourage adequate diet and fluid intake. Patient verbalize ability to perform catheter cares. Instruct on the signs and symptoms of infection Description: Instruct patient/caregiver in strategies to prevent infection WASH HANDS AND CLEAN TECHNIQUE. Instruct patient/caregiver in how to recognize signs and symptoms of infection, and when to notify HH and/or physician WASH WOUND TO BACK OF LEFT THIGH DAILY WITH WOUND WASH OR NORMAL SALINE, PAT DRY, APPLY SILVADENE CREAM TO OPEN WOUND, COVER WITH ABD AND SECURE WITH TAPE OF CHOICE PER SN OR CAREGIVER. Problem:Wound Care Completed Instruct patient on maintaining adequate nutrition and hydration Description: Instruct patient/caregiver on maintaining adequate nutrition and hydration. Problem:Wound Care Completed Perform wound care as instructed by physician Description: Perform wound care as scheduled and PRN Problem:Wound Care Completed Educate on Wound Care Management Description: Instruct patient/caregiver on wound care procedures including preparation, dressing removal, wound cleansing and irrigating, and dressing the wound. Problem:Wound Care Completed Instruct patient/family/caregiv er on infection control and safe disposal of dressing materials Description: Instruct patient caregiver on infection control measures. Problem:Wound Care Completed Instruct on hand washing before and after using the bathroom, after removing gloves or other protective clothing, before preparing food, after eating or smoking, immediately after hand contact with blood or other body fluids or feces, and frequently throughout the day. Instruct patient/caregiver to wear gloves any time they may have direct contact with blood, body fluids, non-intact skin, or surfaces soiled with blood or body fluids. Instruct patient/caregiver to dispose of soiled dressings and supplies in a plastic trash bag, seal, and place in regular trash. Perform dressing change Description: Perform wound care as scheduled and PRN Problem:Wound Care Completed Skilled assessment pain Description: Assess pain each visit Problem:Pain Completed documented in this encounter Home Health Visit - Actions and Narratives Actions assessed wounds and instruct ed on new antibotic for uti and states understanding and agreement and instructed to drink alot of water at least 64 ounces per day states agreement documented in this encounter Care Teams Log Processor Operator Relationship Specialty Start Date End Date Saw Louie MD [address] [place] [address] PCP - General 09/03/17 01/16/19 documented as of this encounter
--- OUTSIDE RECORDS SUMMARY | 2024-11-11 02:13 | XMS_ITS | Encounter Summary ---
Author Organization [facility] Facility Care Team Providers Care Game Author Name Role Phone Unavailable Primary Care Provider Unavailabl e Encounter Details Date Type Department Care Team (Latest Contact Info) Description 03/11/2012 2:18 PM CDT - 03/11/2012 4:00 PM CDT Hospital Encounter [facility] Sonny Page Neurogenic bladder; Status of artificial opening of gastrointestinal tract Social History Tobacco Use Types Packs/Day Years Used Date Smoking Tobacco: Never Assessed Sex and Gender Information Value Date Recorded Sex Assigned at Not on file Legal Sex Male 5:38 AM DIRECTOR OF CURRICULUM Gender Identity Male 05/21/2022 3:19 PM CDT Sexual Orientation Straight 05/21/2022 3: 19 PM CDT documented as of this encounter Plan of Treatment Not on file documented as of this encounter Visit Diagnoses Diagnosis Neurogenic bladder Neurogenic bladder, NOS Status of artificial opening of gastrointestinal tract documented in this encounter Additional Health Concerns Infection Onset Date Last Indicated Resolved Time MRSA Comment: 03/31/2021 IP Review - 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 Not a candidate for isolation discontinuation at this time. Ananda Murphy generated from hl7 02/01/2012 02/01/2012 06/25/2021 5:00 AM C DT documented as of this encounter
--- OUTSIDE RECORDS SUMMARY | 2024-11-11 02:13 | XMS_ITS | Encounter Summary ---
Author Organization [facility] Home Care Servic es Address [address] [place] [address] Phone Care Team Providers Care Fermenter Name Role Phone Saw Louie MD Primary Care Provider [phone] Reason for Visit * Reason Comments Wound Care Encounter Details Date Type Department Care Team (Late st Contact Info) Description 01/20/2018 4:00 AM CDT Home Care Visit [facility] [address] [address] [address] [place] [address] Chel Teran HOME VISIT Social History Tobacco Use Types Packs/Day Years Used Date Smoking Tobacco: Every Day Sex and Gender Information Value Date Recorded Sex Assigned at Not on file Legal Sex Male 5:38 AM CYBER THREAT ANALYST Gender Identity Male 05/21/2022 3:19 PM CDT Sexual Orientation Straight 05/21/2022 3: 19 PM CDT documented as of this encounter Last Filed Vital Signs Vital Sign Reading Time Taken Comments Blood Pressure 146/82 01/20/2018 7:34 PM CDT Pulse 76 01/20/2018 7:34 PM CDT Temperature 37 ??C (98.6 ??F) 01/20/2018 7:34 PM CDT Respiratory Rate 18 01/20/2018 7:34 PM CDT Oxygen Saturation 97% 01/20/2018 7:34 PM CDT Inhaled Oxygen Concentration - - [...] watcher auto flagging 07/01/2013 07/01/201310/03 4:34 PM CYBER THREAT ANALYST documented as of this encounter Home Health Visit - Care Plan Visit Details Visit Type -SN Home Visit Discipline -Chcf Problems Problem Description Start Date Status Goals Interve ntions Infection Prevention - Catheter Disciplines: Chcf Knowledge deficit of Infection prevention related to indwelling catheter 12/24/2017 Active - 1 problem intervention scheduled/documented in this visit Wound Care Disciplines: Chcf, Fishing Vessel Operatorchild care assistant needed 12/24/2017 Active - 5 problem interventions scheduled/documented in this visit Pain Disciplines: Chcf, Fishing Vessel Operator Pain 12/24/2017 Active - 1 problem intervention scheduled/documented in this visit Interventions Intervention Associated Problem/Goal Status Variance Visit Notes Instruct on Incentive Spirometer Description: Instruct patient/caregiver in strategies to prevent urinary tract infection and how to recognize signs and symptoms of infection, and when to notify Home Care agency & physician. Problem:Infection Prevention - Catheter Completed Patient instructed [...] adequate nutrition and hydration. Problem:Wound Care Completed Assess wound Description: Assess wound each visit Problem:Wound Care Completed Educate on Wound Care Management Description: Instruct patient/caregiver on wound care procedures including preparation, dressing removal, wound cleansing and irrigating, and dressing the wound. Problem:Wound Care Completed Perform dressing change Description: Perform wound care as scheduled and PRN Problem:Wound Care Completed Skilled assessment pain Description: Assess pain each visit Problem:Pain Completed documented in this encounter Home Health Visit - Actions and Narratives Actions wound care performed / patie nt conts on antibiotic for uti until tomorrow documented in this encounter Care Teams Fermenter Relationship Specialty Start Date End Date Saw Louie MD [address] [place] [address] PCP - General 09/03/17 01/16/19 documented as of this encounter
--- OUTSIDE RECORDS SUMMARY | 2024-11-11 02:13 | XMS_ITS | Encounter Summary ---
Author Organization [facility] Home Care Servic es Address [address] [place] [address] Phone Care Team Providers Care Lock Tender Chief Operator Name Role Phone Saw Louie MD Primary Care Provider [phone] Encounter Details Date Type Department Care Team (Late st Contact Info) Description 01/14/2018 5:15 AM CONSTRUCTION MGR Home Care Visit [facility] [address] [address] [address] [place] [address] Nadya Palacio, RN SN HOME VISIT Social History Tobacco Use Types Packs/Day Years Used Date Smoking Tobacco: Every Day Sex and Gender Information Value Date Recorded Sex Assigned at Not on file Legal Sex Male 5:38 AM CONSTRUCTION MGR Gender Identity Male 05/21/2022 3:19 PM CDT Sexual Orientation Straight 05/21/2022 3: 19 PM CDT documented as of this encounter Last Filed Vital Signs Vital Sign Reading Time Taken Comments Blood Pressure 138/84 01/14/2018 8:55 AM CONSTRUCTION MGR Pulse 82 01/14/2018 8:55 AM CONSTRUCTION MGR Temperature - - Respiratory Rate 18 01/14/2018 8:55 AM CONSTRUCTION MGR Oxygen Saturation 94% 01/14/2018 8:55 AM CONSTRUCTION MGR Inhaled Oxygen Concentration - - Weight - [...] watcher auto flagging 07/01/2013 07/01/201310/03 4:34 PM CONSTRUCTION MGR documented as of this encounter Home Health Visit - Care Plan Visit Details Visit Type -SN Home Visit Discipline -Custodial Problems Problem Description Start Date Status Goals Interve ntions Infection Prevention - Catheter Disciplines: Custodial Knowledge deficit of Infection prevention related to indwelling catheter 12/24/2017 Active - 1 problem intervention scheduled/documented in this visit Wound Care Disciplines: Custodial, Meteorological Equipment Repairerpet caretaker needed 12/24/2017 Active - 7 problem interventions scheduled/documented in this visit Pain Disciplines: Custodial, Meteorological Equipment Repairer Pain 12/24/2017 Active - 1 problem intervention [...] fluid intake. Patient verbalize ability to perform ADLs/IADLs. Instruct on the signs and symptoms of infection Description: Instruct patient/caregiver in strategies to prevent infection WASH HANDS AND CLEAN TECHNIQUE. Instruct patient/caregiver in how to recognize signs and symptoms of infection, and when to notify HH and/or physician WASH WOUND WITH WOUND WASH OR NORMAL SALINE, PAT DRY, APPLY SILVADENE CREAM TO OPEN WOUND, COVER WITH ABD AND SECURE WITH TAPE OF CHOICE PER SN OR CAREGIVER. Problem:Wound Care Completed Instruct patient on maintaining adequate nutrition and hydration Description: Instruct patient/caregiver on maintaining adequate nutrition and hydration. Problem:Wound Care Completed Assess wound Description: Assess wound each visit Problem:Wound Care Completed Perform wound care as [...] visit Problem:Pain Completed documented in this encounter Care Teams Lock Tender Chief Operator Relationship Specialty Start Date End Date Saw Louie MD [facility] [place] [address] PCP - General 09/03/17 01/16/19 documented as of this encounter
--- OUTSIDE RECORDS SUMMARY | 2024-11-11 02:13 | XMS_ITS | Encounter Summary ---
Author Organization [facility] Facility Care Team Providers Care Road Freight Brake Coupler Name Role Phone Unavailable Primary Care Provider Unavailabl e Encounter Details Date Type Department Care Team (Late st Contact Info) Description 03/11/2012 - 03/11/2012 11:59 PM CDT Hospital Encounter [facility] Emiliano Kevin MD [address] [place] [address] Social History Tobacco Use Types Packs/Day Years Used Date Smoking Tobacco: Never Assessed Sex and Gender Information Value Date Recorded Sex Assigned at Not on file Legal Sex Male 5:38 AM PERFUME AND TOILET WATER MAKER Gender Identity Male 05/21/2022 3:19 PM [...]
--- OUTSIDE RECORDS SUMMARY | 2024-11-11 02:13 | XMS_ITS | Encounter Summary ---
Author Organization [facility] Facility Care Team Providers Care Statistical Modeler Name Role Phone Unavailable Primary Care Provider Unavailabl e Encounter Details Date Type Department Care Team (Latest Contact Info) Description 02/18/2012 10:15 AM CDT - 02/18/2012 4:59 PM CDT Hospital Encounter [facility] Miguel Marinelli MD [address] [place] [address] Other complications due to genitourinary device, implant, and graft; Personal history of tobacco use, presenting hazards to health; Unspecified procedure as the cause of abnormal reaction of patient, or of later complication; Place of occurrence, residential institution Social History Tobacco Use Types Packs/Day Years Used Date Smoking Tobacco: Never Assessed Sex and Gender Information Value Date Recorded Sex Assigned at Not on file Legal Sex Male 5:38 AM PAPER COATING SUPERVISOR Gender Identity Male 05/21/2022 3:19 PM CDT Sexual Orientation Straight 05/21/2022 3: 19 PM CDT documented as of this encounter Plan of Treatment Not on file documented as of this encounter Visit Diagnoses Diagnosis Other complications due to genitourinary device, implant, and graft Personal history of tobacco use, presenting hazards to health Unspecified procedure as the cause of abnormal reaction of patient, or of later complication Place of occurrence, residential institution documented in this encounter Additional Health Concerns [...]
--- OUTSIDE RECORDS SUMMARY | 2024-11-11 02:13 | XMS_ITS | Encounter Summary ---
Author Organization [facility] Home Care Servic es Address [address] [place] [address] Phone Care Team Providers Care Docketing Specialist Name Role Phone Saw Louie MD Primary Care Provider [phone] Reason for Visit * Reason Comments Wound Care Encounter Details Date Type Department Care Team (Late st Contact Info) Description 02/17/2018 2:30 PM CDT Home Care Visit [facility] [address] [address] [address] [place] [address] Chel Teran HOME VISIT Social History Tobacco Use Types Packs/Day Years Used Date Smoking Tobacco: Every Day Sex and Gender Information Value Date Recorded Sex Assigned at Not on file Legal Sex Male 5:38 AM SALES ACCOUNT REPRESENTATIVE Gender Identity Male 05/21/2022 3:19 PM CDT Sexual Orientation Straight 05/21/2022 3: 19 PM CDT documented as of this encounter Last Filed Vital Signs Vital Sign Reading Time Taken Comments Blood Pressure 140/70 02/17/2018 3:18 PM CDT Pulse 78 02/17/2018 3:18 PM CDT Temperature 36.8 ??C (98.2 ??F) 02/17/2018 3:18 PM CD T Respiratory Rate 18 02/17/2018 3:18 PM CDT Oxygen Saturation 98% 02/17/2018 3:18 PM CDT Inhaled Oxygen Concentration - - [...] watcher auto flagging 07/01/2013 07/01/201310/03 4:34 PM SALES ACCOUNT REPRESENTATIVE documented as of this encounter Home Health Visit - Care Plan Visit Details Visit Type -SN Home Visit Discipline -Detention Problems Problem Description Start Date Status Goals Interve ntions Wound Care Disciplines: Detention, Ophthalmic Technician Apprenticelife care planner needed 12/24/2017 Active - 4 problem interventions scheduled/documented in this visit Fall Precautions/Safe ty Concerns Disciplines: Detention, Ophthalmic Technician Apprentice Alteration in safety 12/24/2017 Active - 1 problem intervention scheduled/documented in this visit Interventions Intervention Associated Problem/Goal Status Variance Visit Notes Instruct on the signs and symptoms of [...] and dressing the wound. Problem:Wound Care Completed [place] Fall Precautions Description: Assess patient safety Problem:Fall Precautions/Safety Concerns Completed documented in this encounter Home Health Visit - Actions and Narratives Actions sn assessment / wounds are a ll healed has some cloudy urine still and is still on antibiotic will most likely discharge next week states had some loose stools last week instructed to eat yogurt while on antibiotic states understanding and agreement / supplies ordered tape and straight caths documented in this encounter Care Teams Docketing Specialist Relationship Specialty Start Date End Date Saw Louie MD [address] [place] [address] PCP - General 09/03/17 01/16/19 documented as of this encounter
--- OUTSIDE RECORDS SUMMARY | 2024-11-11 02:13 | XMS_ITS | Encounter Summary ---
Author Organization [facility] Home Care Servic es Address [address] [place] [address] Phone Care Team Providers Care Nurse Staff Industrial Name Role Phone Saw Louie MD Primary Care Provider [phone] Reason for Visit * Reason Comments Wound Care Encounter Details Date Type Department Care Team (Late st Contact Info) Description 01/01/2018 9:45 AM CREATIVE SERVICES MANAGER Home Care Visit [facility] [address] [address] [address] [place] [address] Chel Teran SN HOME VISIT Social History Tobacco Use Types Packs/Day Years Used Date Smoking Tobacco: Every Day Sex and Gender Information Value Date Recorded Sex Assigned at Not on file Legal Sex Male 5:38 AM CREATIVE SERVICES MANAGER Gender Identity Male 05/21/2022 3:19 PM CDT Sexual Orientation Straight 05/21/2022 3: 19 PM CDT documented as of this encounter Last Filed Vital Signs Vital Sign Reading Time Taken Comments Blood Pressure 146/76 01/01/2018 4:13 PM CREATIVE SERVICES MANAGER Pulse 78 01/01/2018 4:13 PM CREATIVE SERVICES MANAGER Temperature 36.6 ??C (97.8 ??F) 01/01/2018 4:13 PM CS T Respiratory Rate 18 01/01/2018 4:13 PM CREATIVE SERVICES MANAGER Oxygen Saturation 98% 01/01/2018 4:13 PM CREATIVE SERVICES MANAGER Inhaled Oxygen Concentration - - Weight - [...] watcher auto flagging 07/01/2013 07/01/201310/03 4:34 PM CREATIVE SERVICES MANAGER documented as of this encounter Home Health Visit - Care Plan Visit Details Visit Type -SN Home Visit Discipline -Chcf Problems Problem Description Start Date Status Goals Interve ntions Learning/Teachin g Needs - Catheter Disciplines: Chcf Knowledge deficit related to home management of catheter 12/24/2017 Active - 1 problem intervention scheduled/documented in this visit Collect Specimen/Lab Draw Disciplines: Chcf Management of specimen samples, including lab draws, stool, urine, & tissue COLLECT UA AFTER DAY 5 OF ANTIBIOTIC. 12/24/2017 Resolved on 01/01/2018 - 2 problem interventions scheduled/documented in this visit Pain Disciplines: Chcf Alteration in comfort 12/24/2017 Active - 1 problem intervention scheduled/documented in this visit Wound Care Disciplines: Chcf, Proof Machine Operator Supervisorhourly caregiver needed 12/24/2017 Active - 7 problem interventions scheduled/documented in this visit Pain Disciplines: Chcf, Proof Machine Operator Supervisor Pain 12/24/2017 Active - 1 problem intervention scheduled/documented in this visit Plan of Care Clinical Summary Disciplines: Chcf, Proof Machine Operator Supervisor Plan of Care Clinical Summary 12/24/2017 Active - 1 problem intervention scheduled/documented in this visit Fall Precautions/Safe ty Concerns Disciplines: Chcf, Proof Machine Operator Supervisor Alteration in safety 12/24/2017 Active - 3 problem interventions scheduled/documented in this visit Interventions Intervention Associated Problem/Goal Status Variance Visit Notes Instruct catheter care Description: SN to visit to teach patient/caregiver in care of #14 [place]DI[place] STRAIGHT catheter. Instruct patient/caregiver on home management of urinary catheter including cleaning of urinary meatus, changing from night bag to leg bag. Problem:Learning/Soledad pablog Needs - Catheter Completed instructed in catheter cares/ patient has been independant for years Lab draw Description: COLLECT AFTER DAY 5 OF ANTIBIOTIC Problem:Collect Specimen/Lab Draw Completed Sample obtained from straight cath collected 01/01/18 Assist with or instruct on specimen collection Description: Assist or instruct patient/caregiver on specimen collection. Problem:Collect Specimen/Lab Draw Completed Instruct on pain management techniques Description: Instruct in pharmacologic and nonpharmacologic pain management techniques. Problem:Pain Completed Instruct on the signs and symptoms of [...] dressing the wound. Problem:Wound Care Completed Instruct patient/family/caregiver on infection control and safe disposal of [...] Description: Assess pain each visit Problem:Pain Completed Chcf Plan of Care Clinical Summary Problem:Plan of Care Clinical Summary Completed [place] Fall Precautions Description: Assess patient safety Problem:Fall Precautions/Safety Concerns Completed [place] Fall Risk Precautions Description: Instruct patient/caregiver in methods to prevent falls Problem:Fall Precautions/Safety Concerns Completed Code Status Description: Discuss with patient/caregiver code status Problem:Fall Precautions/Safety Concerns Completed documented in this encounter Home Health Visit - Actions and Narratives Actions urine collected and wound ca re as per plan of care Narratives n/a documented in this encounter Care Teams Nurse Staff Industrial Relationship Specialty Start Date End Date Saw Louie MD [address] [place] [address] PCP - General 09/03/17 01/16/19 documented as of this encounter
--- OUTSIDE RECORDS SUMMARY | 2024-11-11 02:13 | XMS_ITS | Encounter Summary ---
Author Organization [facility] Facility Care Team Providers Care Product Owner Name Role Phone Unavailable Primary Care Provider Unavailabl e Encounter Details Date Type Department Care Team (Late st Contact Info) Description 09/04/2013 8:22 AM CDT - 09/04/2013 4:00 PM CDT Hospital Encounter [facility] Gómez Carreno MD [address] [place] [address] Acute pancreatitis; Other specified disorders of stomach and duodenum Social History Tobacco Use Types Packs/Day Years Used Date Smoking Tobacco: Never Assessed Sex and Gender Information Value Date Recorded Sex Assigned at Not on file Legal Sex Male 5:38 AM WEB SEARCH EVALUATOR Gender Identity Male 05/21/2022 3:19 PM CDT Sexual Orientation Straight 05/21/2022 3: 19 PM CDT documented as of this encounter Plan of Treatment Not on file documented as of this encounter Procedures Procedure Name Priority Date/Time Associated Diagnosis Comments FL ERCP BILIARY DUCT Routine 09/04/2013 11:24 AM CDT UPPER ENDOSCOPIC ULTRASONOGRAPHY REPORT 09/04/2013 CHOLANGIOPANCREATOGRAPH Y, RETROGRADE, ENDOSCOPIC 09/04/2013 documented in this encounter Results * XR ERCP BILIARY DUCT (09/04/2013 11:24 AM CDT) Anatomical Region Laterality Modality Body N/A Radiographic Chelita ging 09/04/2013 11:2 4 AM CDT Narrative 09/04/2013 4:47 PM CDT CYRUS GRIMES M.D. MARIFER SALDAÑA M.D. FINAL REPORT The radiology attending physician has personally reviewed this study, and has reviewed and/or edited this written report and agrees with it. ACC# ??Date Time ??Exam [id number] Sep 04, 2013 11:24:00 [id number] ERCP S&I EXAMINATION: ?? ERCP History: 28 year-old man with acute pancreatitis. 7 fluoroscopic spot images obtained during ERCP are available for interpretation. ??The railroad crossing protection maintainer radiograph demonstrates cholecystectomy clips and an inferior vena cava filter in place. ??Injection of the ventral pancreatic duct stent demonstrates a normal appearing pancreatic duct. ?? Per the hepatobiliary service, a prophylactic biliary stent was placed. ?? Injection of the common duct reveals normal intrahepatic and extrahepatic biliary ducts. ??No filling defects were identified. ??Because of contrast injected into the pancreatic duct, the reported pancreatic duct stent is difficult to visualize on the final images. ?? IMPRESSION: 1. Normal appearing biliary ducts. 2. The reported pancreatic duct stent is difficult to visualize due to residual contrast in the pancreatic duct. ?? Requested By: GÓMEZ CALDWELL ??M.D. Dictated By: ?? MARIFER SALDAÑA M.D. ??on Sep 04 2013 ??4:02P This document has been electronically signed by: CYRUS GRIMES M.D. on Sep 04 2013 ??4:47P Procedure Note Provider, MD Saniya - 03/07/2017 CYRUS GRIMES M.D. MARIFER SALDAÑA M.D. FINAL REPORT The radiology attending physician has personally reviewed this study, and has reviewed and/or edited this written report and agrees with it. ACC# Date Time Exam [id number] Sep 04, 2013 11:24:00 [id number] ERCP S&I EXAMINATION: ERCP History: 28 year-old man with acute pancreatitis. 7 fluoroscopic spot images obtained during ERCP are available for interpretation. The railroad crossing protection maintainer radiograph demonstrates cholecystectomy clips and an inferior vena cava filter in place. Injection of the ventral pancreatic duct stent demonstrates a normal appearing pancreatic duct. Per the hepatobiliary service, a prophylactic biliary stent was placed. Injection of the common duct reveals normal intrahepatic and extrahepatic biliary ducts. No filling defects were identified. Because of contrast injected into the pancreatic duct, the reported pancreatic duct stent is difficult to visualize on the final images. IMPRESSION: 1. Normal appearing biliary ducts. 2. The reported pancreatic duct stent is difficult to visualize due to residual contrast in the pancreatic duct. Requested By: GÓMEZ CALDWELL M.D. Dictated By: MARIFER SALDAÑA M.D. on Sep 04 2013 4:02P This document has been electronically signed by: CYRUS GRIMES M.D. on Sep 04 2013 4:47P Historical Provider MD ROPER FLUOROSCOPY PROCEDURE S Final Result * UPPER ENDOSCOPIC ULTRASONOGRAPHY REPORT (09/04/2013) Anatomical Region Laterality Modality Other Narrative 09/04/2013 Ordered by an unspecified provider. Historical Provider GI PROCEDURE ORDERABLES F inal Result * CHOLANGIOPANCREATOGRAPHY, RETROGRADE, ENDOSCOPIC (09/04/2013) Anatomical Region Laterality Modality N/A Radiographic Chelita ging Narrative 09/04/2013 Ordered by an unspecified provider. 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 Not a candidate for isolation discontinuation at this time. Ananda Murphy generated from hl7 02/01/2012 02/01/2012 06/25/2021 5:00 AM C DT MDR gram neg/ESBL Comment:Germ watcher auto flagging 07/01/2013 07/01/201310/03 4:34 PM WEB SEARCH EVALUATOR documented as of this encounter
--- OUTSIDE RECORDS SUMMARY | 2024-11-11 02:13 | XMS_ITS | Encounter Summary ---
Author Organization [facility] Home Care Servic es Address [address] [place] [address] Phone Care Team Providers Care Nursery Hand Name Role Phone Saw Louie MD Primary Care Provider Reason for Visit * Reason Comments Wound Care Encounter Details Date Type Department Care Team (Late st Contact Info) Description 12/27/2017 9:00 AM ACCOUNTS SPECIALIST Home Care Visit [facility] [address] [address] [address] [place] [address] Chel Teran SN HOME VISIT Social History Tobacco Use Types Packs/Day Years Used Date Smoking Tobacco: Every Day Sex and Gender Information Value Date Recorded Sex Assigned at Not on file Legal Sex Male 5:38 AM ACCOUNTS SPECIALIST Gender Identity Male 05/21/2022 3:19 PM CDT Sexual Orientation Straight 05/21/2022 3: 19 PM CDT documented as of this encounter Last Filed Vital Signs Vital Sign Reading Time Taken Comments Blood Pressure 158/80 12/27/2017 8:58 AM ACCOUNTS SPECIALIST Pulse 79 12/27/2017 8:58 AM ACCOUNTS SPECIALIST Temperature 37.3 ??C (99.1 ??F) 12/27/2017 8:58 AM CS T Respiratory Rate 16 12/27/2017 8:58 AM ACCOUNTS SPECIALIST Oxygen Saturation 97% 12/27/2017 8:58 AM ACCOUNTS SPECIALIST Inhaled Oxygen Concentration - - Weight - [...] watcher auto flagging 07/01/2013 07/01/201310/03 4:34 PM ACCOUNTS SPECIALIST documented as of this encounter Home Health Visit - Care Plan Visit Details Visit Type -SN Home Visit Discipline -Residential Problems Problem Description Start Date Status Goals Interve ntions Infection Prevention - Catheter Disciplines: Residential Knowledge deficit of Infection prevention related to indwelling catheter 12/24/2017 Active - 1 problem intervention scheduled/documented in this visit Learning/Teaching Needs - Catheter Disciplines: Residential Knowledge deficit related to home management of catheter 12/24/2017 Active - 1 problem intervention scheduled/documented in this visit Wound Care Disciplines: Residential, Career Developeranimal care assistant needed 12/24/2017 Active - 7 problem interventions scheduled/documented in this visit Pain Disciplines: Residential, Career Developer Pain 12/24/2017 Active - 1 problem intervention scheduled/documented in this visit Plan of Care Clinical Summary Disciplines: Residential, Career Developer Plan of Care Clinical Summary 12/24/2017 Active - 1 problem intervention scheduled/documented in this visit Fall Precautions/Safety Concerns Disciplines: Residential, Career Developer Alteration in safety 12/24/2017 Active - 2 problem interventions scheduled/documented in this visit Interventions Intervention Associated Problem/Goal Status Variance Visit Notes Instruct on Incentive Spirometer Description: Instruct patient/caregiver in strategies to prevent urinary tract infection and how to recognize signs and symptoms of infection, and when to notify Home Care agency & physician. Problem:Infection Prevention - Catheter Completed PATIENT CAREGIVER instructed on INFECTION PREVENTION:[id number]:: frequent/proper hand-washing techniques , Standar d precautions , avoid crowds and persons with known infections , staying current with immunizations , s/s of infection , use of incentive spirometer , use of antibiotics , encour age adequate diet and fluid intake HH PATIENT CAREGIVER VERBALIZE/DEMONSTRAT [id number]} Instruct catheter care Description: SN to visit to teach patient/caregiver in care of #14 [place] STRAIGHT catheter. Instruct patient/caregiver on home management of urinary catheter including cleaning of urinary meatus, changing from night bag to leg bag. Problem:Learning/Teach ing Needs - Catheter Completed instructed in catheter cares. PATIENT CAREGIVER: VERBALIZE/DEMONSTRAT E:understanding Instruct on the signs and symptoms of [...] Description: Assess pain each visit Problem:Pain Completed Residential Plan of Care Clinical Summary Problem:Plan of Care Clinical Summary Completed [place] Fall Precautions Description: Assess patient safety Problem:Fall Precautions/Safety Concerns Completed High Fall Risk Precautions Description: Instruct patient/caregiver in methods to prevent falls Problem:Fall Precautions/Safety Concerns Completed documented in this encounter Home Health Visit - Actions and Narratives Actions wound care documented in this encounter Care Teams Nursery Hand Relationship Specialty Start Date End Date Saw Louie MD [address] [place] [address] PCP - General 09/03/17 01/16/19 documented as of this encounter
--- OUTSIDE RECORDS SUMMARY | 2024-11-11 02:13 | XMS_ITS | Encounter Summary ---
Author Organization [facility] Facility Care Team Providers Care Metal Sponge Making Machine Operator Name Role Phone Unavailable Primary Care Provider Unavailabl e Encounter Details Date Type Department Care Team (Late st Contact Info) Description 03/25/2012 10:49 AM CDT - 03/25/2012 4:00 PM CDT Hospital Encounter [facility] Sonny Page Neurogenic bladder Social History Tobacco Use Types Packs/Day Years Used Date Smoking Tobacco: Never Assessed Sex and Gender Information Value Date Recorded Sex Assigned at Not on file Legal Sex Male 5:38 AM ART STUDIO TEACHER Gender Identity Male 05/21/2022 3:19 PM CDT Sexual Orientation Straight 05/21/2022 3: 19 PM CDT documented as of this encounter Plan of Treatment Not on file documented as of this encounter Visit Diagnoses Diagnosis Neurogenic bladder Neurogenic bladder, NOS documented in this encounter Additional Health Concerns [...]
--- OUTSIDE RECORDS SUMMARY | 2024-11-11 02:13 | XMS_ITS | Encounter Summary ---
Author Organization [facility] Facility Care Team Providers Care Director Of Construction Name Role Phone Unavailable Primary Care Provider Unavailabl e Encounter Details Date Type Department Care Team (Latest Contact Info) Description 12/21/2011 10:13 AM BLANCHING MACHINE OPERATOR - 12/21/2011 5:43 PM [facility] Hospital Encounter [facility] Ronaldo Nieves MD [address] [place] [address] Mechanical complication due to urethral (indwelling) catheter (CMS/HCC) (HCC); Other specified retention of urine; Generalized hyperhidrosis; Other specified causes of urethral stricture; Neurogenic bladder; Paraplegia (HCC); Other specified procedure as the cause of abnormal reaction of patient or of later complication; Place of occurrence, home Social History Tobacco Use Types Packs/Day Years Used Date Smoking Tobacco: Never Assessed Sex and Gender Information Value Date Recorded Sex Assigned at Not on file Legal Sex Male 5:38 AM BLANCHING MACHINE OPERATOR Gender Identity Male 05/21/2022 3:19 PM CDT Sexual Orientation Straight 05/21/2022 3: 19 PM CDT documented as of this encounter Plan of Treatment Not on file documented as of this encounter Visit Diagnoses Diagnosis Mechanical complication due to urethral (indwelling) catheter (CMS/HCC) (HCC) Mechanical complication due to urethral (indwelling) catheter Other specified retention of urine Generalized hyperhidrosis Other specified causes of urethral stricture Neurogenic bladder Neurogenic bladder, NOS Paraplegia (HCC) Paraplegia Other specified procedure as the cause of abnormal reaction of patient or of later complication Place of occurrence, home documented in this encounter
--- OUTSIDE RECORDS SUMMARY | 2024-11-11 02:13 | XMS_ITS | Encounter Summary ---
Author Organization [facility] Facility Care Team Providers Care General Cleaner Name Role Phone Unavailable Primary Care Provider Unavailabl e Encounter Details Date Type Department Care Team (Late st Contact Info) Description 09/11/2011 12:07 PM CDT - 09/11/2011 4:00 PM CDT Hospital Encounter [facility] Sonny Page Neurogenic bladder; Paraplegia (HCC); Tobacco use disorder Social History Tobacco Use Types Packs/Day Years Used Date Smoking Tobacco: Never Assessed Sex and Gender Information Value Date Recorded Sex Assigned at Not on file Legal Sex Male 5:38 AM GLASS CHECKER Gender Identity Male 05/21/2022 3:19 PM CDT Sexual Orientation Straight 05/21/2022 3: 19 PM CDT documented as of this encounter Plan of Treatment Not on file documented as of this encounter Visit Diagnoses Diagnosis Neurogenic bladder Neurogenic bladder, NOS Paraplegia (HCC) Paraplegia Tobacco use disorder documented in this encounter
--- OUTSIDE RECORDS SUMMARY | 2024-11-11 02:13 | XMS_ITS | Encounter Summary ---
Author Organization [facility] Facility Care Team Providers Care Chronometer Assembler Name Role Phone Unavailable Primary Care Provider Unavailabl e Encounter Details Date Type Department Care Team (Late st Contact Info) Description 12/11/2011 1:42 PM NEWS CAMERAMAN - 12/11/2011 4:00 PM NEWS CAMERAMAN Hospital Encounter [facility] Sonny Page Neurogenic bladder; Paraplegia (HCC) Social History Tobacco Use Types Packs/Day Years Used Date Smoking Tobacco: Never Assessed Sex and Gender Information Value Date Recorded Sex Assigned at Not on file Legal Sex Male 5:38 AM NEWS CAMERAMAN Gender Identity Male 05/21/2022 3:19 PM CDT Sexual Orientation Straight 05/21/2022 3: 19 PM CDT documented as of this encounter Plan of Treatment Not on file documented as of this encounter Visit Diagnoses Diagnosis Neurogenic bladder Neurogenic bladder, NOS Paraplegia (HCC) Paraplegia documented in this encounter
--- OUTSIDE RECORDS SUMMARY | 2024-11-11 02:13 | XMS_ITS | Encounter Summary ---
Author Organization [facility] Home Care Servic es Address [address] [place] [address] Phone Care Team Providers Care Fish Drier Name Role Phone Saw Louie MD Primary Care Provider [phone] Reason for Visit * Reason Comments Wound Care Encounter Details Date Type Department Care Team (Late st Contact Info) Description 01/04/2018 9:30 AM PROPAGATOR LABORER Home Care Visit [facility] [address] [address] [address] [place] [address] Chel Teran SN HOME VISIT Social History Tobacco Use Types Packs/Day Years Used Date Smoking Tobacco: Every Day Sex and Gender Information Value Date Recorded Sex Assigned at Not on file Legal Sex Male 5:38 AM PROPAGATOR LABORER Gender Identity Male 05/21/2022 3:19 PM CDT Sexual Orientation Straight 05/21/2022 3: 19 PM CDT documented as of this encounter Last Filed Vital Signs Vital Sign Reading Time Taken Comments Blood Pressure 132/72 01/04/2018 4:13 PM PROPAGATOR LABORER Pulse 78 01/04/2018 4:13 PM PROPAGATOR LABORER Temperature 36.3 ??C (97.3 ??F) 01/04/2018 4:13 PM CS T Respiratory Rate 16 01/04/2018 4:13 PM PROPAGATOR LABORER Oxygen Saturation 97% 01/04/2018 4:13 PM PROPAGATOR LABORER Inhaled Oxygen Concentration - - Weight - [...] watcher auto flagging 07/01/2013 07/01/201310/03 4:34 PM PROPAGATOR LABORER documented as of this encounter Home Health Visit - Care Plan Visit Details Visit Type -SN Home Visit Discipline -Nursing Home Problems Problem Description Start Date Status Goals Interve ntions Learning/Teachin g Needs - Catheter Disciplines: Nursing Home Knowledge deficit related to home management of catheter 12/24/2017 Active - 1 problem intervention scheduled/documented in this visit Wound Care Disciplines: Nursing Home, Credit Control Officerrn homecare needed 12/24/2017 Active - 6 problem interventions scheduled/documented in this visit Pain Disciplines: Nursing Home, Credit Control Officer Pain 12/24/2017 Active - 1 problem intervention scheduled/documented in this visit Fall Precautions/Safe ty Concerns Disciplines: Nursing Home, Credit Control Officer Alteration in safety 12/24/2017 Active - 2 problem interventions scheduled/documented in this visit Interventions Intervention Associated Problem/Goal Status Variance Visit Notes Instruct catheter care Description: SN to visit to teach patient/caregiver in care of #14 MONEGASQUE STRAIGHT catheter. Instruct patient/caregiver on home management of urinary catheter including cleaning of urinary meatus, changing from night bag to leg bag. Problem:Learning/Teac norma Needs - Catheter Completed Patient and Caregiver instructed in catheter cares. Patient and Caregiver verbalize and demonstrate ability to perform catheter cares, proper handwashing techniques and safe home medication administration and management of home equipment. Instruct on the signs and symptoms of [...] Description: Assess pain each visit Problem:Pain Completed [place] Fall Precautions Description: Assess patient safety Problem:Fall Precautions/Safety Concerns Completed High Fall Risk Precautions Description: Instruct patient/caregiver in methods to prevent falls Problem:Fall Precautions/Safety Concerns Completed documented in this encounter Care Teams Fish Drier Relationship Specialty Start Date End Date Saw Louie MD [address] [place] [address] PCP - General 09/03/17 01/16/19 documented as of this encounter
--- OUTSIDE RECORDS SUMMARY | 2024-11-11 02:13 | XMS_ITS | Encounter Summary ---
Author Organization [facility] Home Care Servic es Address [address] [place] [address] Phone Care Team Providers Care Corncob Pipe Manufacturing Supervisor Name Role Phone Saw Louie MD Primary Care Provider [phone] Reason for Visit * Reason Comments Wound Care Encounter Details Date Type Department Care Team (Late st Contact Info) Description 01/28/2018 4:45 AM CDT Home Care Visit [facility] [address] [address] [address] [place] [address] Chel Teran HOME VISIT Social History Tobacco Use Types Packs/Day Years Used Date Smoking Tobacco: Every Day Sex and Gender Information Value Date Recorded Sex Assigned at Not on file Legal Sex Male 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 Gender Identity Male 05/21/2022 3:19 PM CDT Sexual Orientation Straight 05/21/2022 3: 19 PM CDT documented as of this encounter Last Filed Vital Signs Vital Sign Reading Time Taken Comments Blood Pressure 146/74 01/28/2018 2:57 PM CDT Pulse 95 01/28/2018 2:57 PM CDT Temperature 37.1 ??C (98.7 ??F) 01/28/2018 2:57 PM CD T Respiratory Rate 16 01/28/2018 2:57 PM CDT Oxygen Saturation 97% 01/28/2018 2:57 PM CDT Inhaled Oxygen Concentration - - [...] watcher auto flagging 07/01/2013 07/01/201310/03 4:34 PM 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 documented as of this encounter Home Health Visit - Care Plan Visit Details Visit Type -SN Home Visit Discipline -Fpc Problems Problem Description Start Date Status Goals Interve ntions Infection Prevention - Catheter Disciplines: Fpc Knowledge deficit of Infection prevention related to indwelling catheter 12/24/2017 Active - 1 problem intervention scheduled/documented in this visit Pain Disciplines: Fpc Alteration in comfort 12/24/2017 Active - 1 problem intervention scheduled/documented in this visit Wound Care Disciplines: Fpc, Trash Collector Truck Driverskin care technician needed 12/24/2017 Active - 1 problem intervention scheduled/documented in this visit Pain Disciplines: Fpc, Trash Collector Truck Driver Pain 12/24/2017 Active - 1 problem intervention scheduled/documented in this visit Plan of Care Clinical Summary Disciplines: Fpc, Trash Collector Truck Driver Plan of Care Clinical Summary 12/24/2017 Active - 1 problem intervention scheduled/documented in this visit Fall Precautions/Safety Concerns Disciplines: Fpc, Trash Collector Truck Driver Alteration in safety 12/24/2017 Active - 1 [...] fluid intake. Patient verbalize ability to perform proper handwashing techniques. Instruct on pain management techniques Description: Instruct in pharmacologic and nonpharmacologic pain management techniques. Problem:Pain Completed Perform dressing change Description: Perform wound care as scheduled and PRN Problem:Wound Care Completed Skilled assessment pain Description: Assess pain each visit Problem:Pain Completed Fpc Plan of Care Clinical Summary Problem:Plan of Care Clinical Summary Completed High Fall Risk Precautions Description: Instruct patient/caregiver in methods to prevent falls Problem:Fall Precautions/Safety Concerns Completed documented in this encounter Home Health Visit - Actions and Narratives Actions wound care done as per plan of care and also obtained u/a per straight cath per new orders from dr louie documented in this encounter Care Teams Corncob Pipe Manufacturing Supervisor Relationship Specialty Start Date End Date Saw Louie MD [address] [place] [address] PCP - General 09/03/17 01/16/19 documented as of this encounter
--- OUTSIDE RECORDS SUMMARY | 2024-11-11 02:13 | XMS_ITS | Encounter Summary ---
Author Organization [facility] Healthcare Address [address] [place] [address] Care Team Providers Care Medical Officer Psychiatry Name Role Phone Unknown, Notinfile Primary Care Provider Unavail able Encounter Details Date Type Department Care Team (Latest Contact Info) Description 08/23/2017 10:27 AM CDT - 08/23/2017 11:59 PM CDT Hospital Encounter [facility] [phone] Earnest Ramirez MD [address] [place] [address] Discharge Disposition: Discharge to home or self care Social History Tobacco Use Types Packs/Day Years Used Date Smoking Tobacco: Every Day Sex and Gender Information Value Date Recorded Sex Assigned at Not on file Legal Sex Male 5:38 AM IP ATTORNEY Gender Identity Male 05/21/2022 3:19 PM CDT Sexual Orientation Straight 05/21/2022 3: 19 PM CDT documented as of this encounter Discharge Disposition Disposition Code Departure Means Destination Discharge to home or self care documented in this encounter Plan of Treatment Not on file documented as of this encounter Procedures Procedure Name Priority Date/Time Associated Diagnosis Comments XR HIPS BILATERAL AP LATERAL W AP PELVIS Routine 08/23/2017 4:22 PM CDT documented in this encounter Results * XR Hips Bilateral Ap Lateral W Ap Pelvis (08/23/2017 4:22 PM CDT) Anatomical Region Laterality Modality Lower Extremities, Hip, Pelvis Bilateral R adiographic Imaging 08/23/2017 4:22 PM CDT Narrative 08/23/2017 4:38 PM CDT BRYANT FINNEGAN MD, PHD FINAL REPORT ACC# ??Date Time ??Exam [id number] Aug 23, 2017 11:22:00 [id number] HipBilat ??and ??Pel if done3-4V EXAMINATION: ??Hips bilateral pelvis if done 3-4 views HISTORY: ??Hip pain FINDINGS: 4 radiographs of the pelvis and both hips are compared to a CT examination from 02/11/2012. 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 ??A left femur fracture with intramedullary nail are incompletely evaluated. ??3 geometric opacities which are suprapubic in location are noted projecting over the region of the bladder. There is no acute fracture. IMPRESSION: ??1. 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 Electronically signed by: Bryant Finnegan MD, PHD Requested By: EARNEST RAMIREZ M.D. Dictated By: ?? BRYANT FINNEGAN MD, PHD ??on Aug 23 2017 11:36A This document has been electronically signed by: BRYANT FINNEGAN MD, PHD on Aug 23 2017 11:36A [id number] FINNEGAN MD, PHD FINAL REPORT Attending: ??JAG, ??EARNEST Requesting: ??JAG, ??EARNEST Requesting Fax: ?? Attending Fax: ?? Attending ID: ??[id number] Requesting ID: ??[id number] Report To 1 ID: ??[id number] ? Report To 1 Name: ??, ?? Report To 1 FAX: ?? NextGen Order #: ?? Procedure Note Miscellaneous, Not In File - 08/23/2017 BRYANT FINNEGAN MD, PHD FINAL REPORT ACC# Date Time Exam [id number] Aug 23, 2017 11:22:00 [id number] HipBilat and Pel if done3-4V EXAMINATION: Hips bilateral pelvis if done 3-4 views HISTORY: Hip pain FINDINGS: 4 radiographs of the pelvis and both hips are compared to a CT examination from 02/11/2012. 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 A left femur fracture with intramedullary nail are incompletely evaluated. 3 geometric opacities which are suprapubic in location are noted projecting over the region of the bladder. There is no acute fracture. IMPRESSION: 1. 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 Electronically signed by: Bryant Finnegan MD, PHD Requested By: EARNEST RAMIREZ M.D. Dictated By: BRYANT FINNEGAN MD, PHD on Aug 23 2017 11:36A This document has been electronically signed by: BRYANT FINNEGAN MD, PHD on Aug 23 2017 11:36A [id number] FINNEGAN MD, PHD FINAL REPORT Attending: EARNEST RAMIREZ Requesting: EARNEST RAMIREZ Requesting Fax: Attending Fax: Attending ID: [id number] Requesting ID: [id number] Report To 1 ID: [id number] Report To 1 Name: , Report To 1 FAX: NextGen Order #: Earnest Ramirez MD IMG XR PROCEDURES Final R esult documented in this encounter Visit Diagnoses Not [...] watcher auto flagging 07/01/2013 07/01/201310/03 4:34 PM IP ATTORNEY documented as of this encounter Care Teams Medical Officer Psychiatry Relationship Specialty Start Date End Date Unknown, Notinfile PCP - General 08/23/17 09/02/17 documented as of this encounter
--- OUTSIDE RECORDS SUMMARY | 2024-11-11 02:13 | XMS_ITS | Encounter Summary ---
Author Organization [facility] Home Care Servic es Address [address] [place] [address] Phone Care Team Providers Care Mattress Filler Name Role Phone Saw Louie MD Primary Care Provider [phone] Reason for Visit * Reason Comments Wound Check Encounter Details Date Type Department Care Team (Late st Contact Info) Description 02/11/2018 1:00 AM CDT Home Care Visit [facility] [address] [address] [address] [place] [address] Chel Teran HOME VISIT Social History Tobacco Use Types Packs/Day Years Used Date Smoking Tobacco: Every Day Sex and Gender Information Value Date Recorded Sex Assigned at Not on file Legal 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 Gender Identity Male 05/21/2022 3:19 PM CDT Sexual Orientation Straight 05/21/2022 3: 19 PM CDT documented as of this encounter Last Filed Vital Signs Vital Sign Reading Time Taken Comments Blood Pressure 136/70 02/11/2018 2:22 PM CDT Pulse 68 02/11/2018 2:22 PM CDT Temperature 37 ??C (98.6 ??F) 02/11/2018 2:22 PM CDT Respiratory Rate 16 02/11/2018 2:22 PM CDT Oxygen Saturation 98% 02/11/2018 2:22 PM CDT Inhaled Oxygen Concentration - - [...] watcher auto flagging 07/01/2013 07/01/201310/03 4:34 PM TELESALES PROFESSIONAL documented as of this encounter Home Health Visit - Care Plan Visit Details Visit Type -SN Home Visit Discipline -Group Home Problems Problem Description Start Date Status Goals Interve ntions Infection Prevention - Catheter Disciplines: Group Home Knowledge deficit of Infection prevention related to indwelling catheter 12/24/2017 Active - 1 problem intervention scheduled/documented in this visit Pain Disciplines: Group Home Alteration in comfort 12/24/2017 Active - 1 problem intervention scheduled/documented in this visit Urinary Catheter Disciplines: Group Home Urinary catheter 12/24/2017 Active - 1 problem intervention scheduled/documented in this visit Wound Care Disciplines: Group Home, Export Sales Assistantmedicare biller needed 12/24/2017 Active - 3 problem interventions scheduled/documented in this visit Pain Disciplines: Group Home, Export Sales Assistant Pain 12/24/2017 Active - 1 problem intervention scheduled/documented in this visit Fall Precautions/Safety Concerns Disciplines: Group Home, Export Sales Assistant Alteration in safety 12/24/2017 Active - 2 [...] intake. Patient verbalize ability to perform catheter cares and understanding of home management of urinary catheter. Instruct on pain management techniques Description: Instruct in pharmacologic and nonpharmacologic pain management techniques. Problem:Pain Completed Change catheter Description: Perform STRAIGHT CATHETERIZATION INSERT every DAY QID AN PRN 14 [place] REMOVE AFTER BLADDER EMPTIES. Problem:Urinary Catheter Completed Instruct on the signs and symptoms [...] PER SN OR CAREGIVER. Problem:Wound Care Completed Assess wound Description: Assess wound each visit Problem:Wound Care Completed Educate on Wound Care Management Description: Instruct patient/caregiver on wound care procedures including preparation, dressing removal, wound cleansing and irrigating, and dressing the wound. Problem:Wound Care Completed Skilled assessment pain Description: Assess pain each visit Problem:Pain Completed [place] Fall Precautions Description: Assess patient safety Problem:Fall Precautions/Safety Concerns Completed Code Status Description: Discuss with patient/caregiver code status Problem:Fall Precautions/Safety Concerns Completed documented in this encounter Home Health Visit - Actions and Narratives Actions sn visit and discussed possi ble discharge for next visit with patient stating understanding and agreement wounds are resolved documented in this encounter Care Teams Mattress Filler Relationship Specialty Start Date End Date Saw Louie MD [address] [place] [address] PCP - General 09/03/17 01/16/19 documented as of this encounter
--- OUTSIDE RECORDS SUMMARY | 2024-11-11 02:13 | XMS_ITS | Encounter Summary ---
Author Organization [facility] Home Care Servic es Address [address] [place] [address] Phone Care Team Providers Care Printing And Stamping Supervisor Name Role Phone Saw Louie MD Primary Care Provider [phone] Reason for Visit * Reason Comments Wound Care Encounter Details Date Type Department Care Team (Late st Contact Info) Description 02/21/2018 2:30 PM CDT Home Care Visit [facility] [address] [address] [address] [place] [address] Chel Teran SN OASIS DISCHARGE Social History Tobacco Use Types Packs/Day Years Used Date Smoking Tobacco: Every Day Sex and Gender Information Value Date Recorded Sex Assigned at Not on file Legal Sex Male 5:38 AM BACK TENDER FOURDRINIER Gender Identity Male 05/21/2022 3:19 PM CDT Sexual Orientation Straight 05/21/2022 3: 19 PM CDT documented as of this encounter Last Filed Vital Signs Vital Sign Reading Time Taken Comments Blood Pressure 122/70 02/21/2018 4:25 PM CDT Pulse 76 02/21/2018 4:25 PM CDT Temperature 37 ??C (98.6 ??F) 02/21/2018 4:25 PM CDT Respiratory Rate 18 02/21/2018 4:25 PM CDT Oxygen Saturation 98% 02/21/2018 4:25 PM CDT Inhaled Oxygen Concentration - - [...] watcher auto flagging 07/01/2013 07/01/201310/03 4:34 PM BACK TENDER FOURDRINIER documented as of this encounter Home Health Visit - Care Plan Visit Details Visit Type -SN OASIS Dischar ge Discipline -Retirement Problems Problem Description Start Date Status Goals Interve ntions Infection Prevention - Catheter Disciplines: Retirement Knowledge deficit of Infection prevention related to indwelling catheter 12/24/2017 Active - 1 problem intervention scheduled/documented in this visit Pain Disciplines: Retirement, Aoc Operations Intelligence Chief Pain 12/24/2017 Active - 1 problem intervention [...] fluid intake. Patient verbalize ability to perform safe home medication administration. Skilled assessment pain Description: Assess pain each visit Problem:Pain Completed documented in this encounter Home Health Visit - Actions and Narratives Actions discharge instructions gone over with patient stating understanding and agreement / documented in this encounter Care Teams Printing And Stamping Supervisor Relationship Specialty Start Date End Date Saw Louie MD [facility] [place] [address] PCP - General 09/03/17 01/16/19 documented as of this encounter
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
--- OUTSIDE RECORDS SUMMARY | 2024-11-11 02:13 | XMS_ITS | Encounter Summary ---
Author Organization [facility] Facility Care Team Providers Care Corporate Statistical Financial Analyst Name Role Phone Unavailable Primary Care Provider Unavailabl e Encounter Details Date Type Department Care Team (Latest Contact Info) Description 02/01/2012 11:24 AM CDT - 02/15/2012 6:26 PM CDT Hospital Encounter [facility] Renan Delgado Neurogenic bladder; Paraplegia (HCC); Pressure ulcer of buttock; Pseudomonas (aeruginosa)(mallei)(ps eudomallei) as the cause of diseases classified to other chapters; Chronic osteomyelitis, pelvic region and thigh (HCC); Body mass index (BMI) of 45.0-49.9 in adult (HCC); 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); Urinary tract infection; Morbid obesity (HCC); Decubitus ulcer of other site; Pressure ulcer; History of urinary tract infection; Status post below knee amputation; Encounter for long-term (current) use of steroids Social History Tobacco Use Types Packs/Day Years Used Date Smoking Tobacco: Never Assessed Sex and Gender Information Value Date Recorded Sex Assigned at Not on file Legal Sex Male 5:38 AM BAKERY ASSOCIATE Gender Identity Male 05/21/2022 3:19 PM CDT Sexual Orientation Straight 05/21/2022 3: 19 PM CDT documented as of this encounter Last Filed Vital Signs Vital Sign Reading Time Taken Comments Blood Pressure 143/84 02/15/2012 6:00 AM CDT Pulse 77 02/15/2012 6:00 AM CDT Temperature - - Respiratory Rate - - Oxygen Saturation 100% 02/15/2012 6:00 AM CDT Inhaled Oxygen Concentration - - Weight 147 kg (324 lb 1.2 oz) 02/01/2012 11:47 A M CDT Height 175 cm (5' 8.9 ) 02/01/2012 11:47 AM CDT Body Mass Index 48 02/01/2012 11:47 AM CDT documented in this encounter Plan of Treatment Not on file documented as of this encounter Visit Diagnoses Diagnosis Neurogenic bladder Neurogenic bladder, NOS Paraplegia (HCC) Paraplegia Pressure ulcer of buttock Pressure ulcer, buttock Pseudomonas (aeruginosa)(mallei)(pseudomallei) as the cause of diseases classified to other chapters Chronic osteomyelitis, pelvic region and thigh (HCC) Chronic osteomyelitis, pelvic region and thigh Body mass index (BMI) of 45.0-49.9 in adult ([facility]) Chronic thromboembolism of deep veins of proximal leg ([facility]) 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
--- OUTSIDE RECORDS SUMMARY | 2024-11-11 02:13 | XMS_ITS | Encounter Summary ---
Author Organization [facility] Facility Care Team Providers Care Supervisor Wet End Name Role Phone Saw Louie MD Primary Care Provider [phone] Encounter Details Date Type Department Care Team (Latest Contact Info) Description 01/10/2019 Travel Social History Tobacco Use Types Packs/Day Years Used Date Smoking Tobacco: Every Day Sex and Gender Information Value Date Recorded Sex Assigned at Not on file Legal Sex Male 5:38 AM OUTREACH DIRECTOR Gender Identity Male 05/21/2022 3:19 PM [...] watcher auto flagging 07/01/2013 07/01/201310/03 4:34 PM OUTREACH DIRECTOR documented as of this encounter Care Teams Supervisor Wet End Relationship Specialty Start Date End Date Saw Louie MD [address] [place] [address] PCP - General 09/03/17 01/16/19 documented as of this encounter
--- OUTSIDE RECORDS SUMMARY | 2024-11-11 02:13 | XMS_ITS | Encounter Summary ---
Author Organization [facility] Facility Care Team Providers Care Merchandise Pickup/Receiving Associate Name Role Phone Unavailable Primary Care Provider Unavailabl e Encounter Details Date Type Department Care Team (Latest Contact Info) Description 01/04/2012 2:51 PM CAN FILLING ROOM SWEEPER - 01/05/2012 12:25 AM [facility] JEWELER APPRENTICE [address] [place] [address] Other complications due to genitourinary device, implant, and graft; Tobacco use disorder; Unspecified procedure as the cause of abnormal reaction of patient, or of later complication; Place of occurrence, home Social History Tobacco Use Types Packs/Day Years Used Date Smoking Tobacco: Never Assessed Sex and Gender Information Value Date Recorded Sex Assigned at Not on file Legal Sex Male 5:38 AM CAN FILLING ROOM SWEEPER Gender Identity Male 05/21/2022 3:19 PM CDT Sexual Orientation Straight 05/21/2022 3: 19 PM CDT documented as of this encounter Plan of Treatment Not on file documented as of this encounter Visit Diagnoses Diagnosis Other complications due to genitourinary device, implant, and graft Tobacco use disorder Unspecified procedure as the cause of abnormal reaction of patient, or of later complication Place of occurrence, home documented in this encounter
--- OUTSIDE RECORDS SUMMARY | 2024-11-11 02:13 | XMS_ITS | Encounter Summary ---
Author Organization [facility] Facility Care Team Providers Care Field Laboratory Operator Name Role Phone Unavailable Primary Care Provider Unavailabl e Encounter Details Date Type Department Care Team (Late st Contact Info) Description 02/18/2016 - 02/18/2016 11:59 PM CDT Hospital Encounter [facility] Bakari Curiel MD [address] [address] Social History Tobacco Use Types Packs/Day Years Used Date Smoking Tobacco: Every Day Sex and Gender Information Value Date Recorded Sex Assigned at Not on file Legal Sex Male 5:38 AM PANEL MONITOR Gender Identity Male 05/21/2022 3:19 PM CDT [...] watcher auto flagging 07/01/2013 07/01/201310/03 4:34 PM PANEL MONITOR documented as of this encounter
--- OUTSIDE RECORDS SUMMARY | 2024-11-11 02:13 | XMS_ITS | Encounter Summary ---
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 - 16 mmol/L HISTORICAL RESULTS Glucose 72 70 - 199 mg/dl HISTORICAL RESULTS BUN 11 8 - 25 mg/dl HISTORICAL RESULTS Creatinine 0.56(L) 0.70 - 1.30 mg/dl HISTORICAL RESULTS Calcium 9.1 8.6 - 10.3 mg/dl HISTORICAL RESULTS Plasma 07/05/2013 3:48 AM CDT Result [facility] Blas Garcia MD LAB BLOOD ORDERABLES Final Result Performing Organization Address [facility] de Phone Number HISTORICAL RESULTS * Plasma prothrombin time (PT) (07/05/2013 3:48 AM CDT) [facility] Prothrombin time (PT) 10.9 9.0 - 12.0 seconds HISTORICAL RESULTS INR 1.04 0.90 - 1.20 HISTORIC AL RESULTS Comment: Interpretive Data Inpatient therapeutic ranges* Atrial fibrillation ?2.0-3.0 INR Venous thrombo-embolism ?2.0-3.0 INR Bioprosthetic heart valve ?* Mechanical heart valve, bileaflet or tilting disk,aortic position ? 2.0-3.0 INR All other,or bileaflet or tilting disk, in mitral position ? 2.5-3.5 INR *See the pharmacy resource directory (PHRED) for an updated copy of the Tool Book at [email or web address] Current Interpretive Data was last revised 2012. Plasma 07/05/2013 3:48 AM CDT Blas Garcia MD LAB BLOOD ORDERABLES Final Result Performing Organization Address [facility] de Phone Number HISTORICAL RESULTS * Serum lipase (07/05/2013 3:48 AM CDT) Lip 32 0 - 99 Units/L HISTORICAL RESULTS Serum 07/05/2013 3:48 AM CDT Blas Garcia MD LAB BLOOD ORDERABLES Final Result Performing Organization Address [facility] de Phone Number HISTORICAL RESULTS * Plasma amylase (07/05/2013 3:48 AM CDT) K[place]ie, pl 37 28 - 100 Units/L HISTORICAL RESULTS Plasma 07/05/2013 3:48 AM CDT Blas Garcia MD LAB BLOOD ORDERABLES Final Result Performing Organization Address [facility] de Phone Number HISTORICAL RESULTS * (ABNORMAL) Serum lipid panel (07/05/2013 3:47 AM CDT) Cholesterol 120 0 - 200 mg/dl HISTORICAL RESULTS Comment: Interpretive Data Desirable: ?<200 mg/dL Borderline high: ??200-239 mg/dL High: ? >240 mg/dL Literature Reference: National Cholesterol Education Program (NCEP) Expert Panel on Detection, Evaluation, and Treatment of High Blood Cholesterol in Adults (Adult Treatment Panel III). ??Circulation 2004; 110:227. Current interpretive data was last revised on 2005. Triglycerides 99 0 - 150 mg/dl HISTORICAL RESULTS Comment: Interpretive Data Desirable: ? < 150 mg/dL Borderline High: ? 150 - 199 mg/dL High: ?> 200 mg/dL Literature Reference: See Cholesterol Current interpretive data was last revised on 07. HDL 35(L) 40 - 199 mg/dl HISTORICAL RESULTS Comment: Interpretive Data Less than 40 mg/dL - low; A major risk factor for heart disease. Greater than or equal to 60 mg/dL - High; ??considered protective of heart disease. Literature Reference: See Cholesterol Current interpretive data was last revised on 2008. LDL 65 0 - 129 mg/dl HISTORICAL RESULTS Comment: Interpretive Data Optimal: ? < 100 mg/dL Near Optimal: ?100 - 129 mg/dL Borderline High: ?? 130 - 159 mg/dL High: ?> 160 mg/dL Literature Reference: See Cholesterol Current interpretive data was last revised on 07. Non-HDL cholesterol, calculated 85 mg/dl HISTORICAL RESULTS Comment: Interpretive Data When triglycerides are >200 mg/dL, non-HDL C is a secondary target of therapy, with a goal 30 mg/dL higher than the identified LDL-C goal. Reference: ??See Cholesterol Reference. Current interpretive data was last revised 2012. Serum 07/05/2013 3:47 AM CDT Mono Aguilar MD LAB BLOOD ORDERABLES Jessica cruz Result HISTORICAL RESULTS * Blood hemoglobin A1C (07/05/2013 3:47 AM CDT) Hgb A1C 5.3 4.0 - 6.0 % HISTORICAL RESULTS Estimated average glucose 105 mg/dl HISTORICAL RESULTS Comment: The ADA recommends reporting an estimated Average Glucose (eAG) with all Hemoglobin A1c results using the equation derived from a study of 507 normal and diabetic adults. ??Minority populations were underrepresented and children were not included. ??(Diabetes Care 31:0678-3193, 2008). ??The eAG is not equivalent to a fasting glucose. Blood specimen (specimen) 07/05/2013 3:47 AM CDT Blas Garcia MD LAB BLOOD ORDERABLES Final Result HISTORICAL RESULTS * (ABNORMAL) Blood cell count (CBC) (07/05/2013 3:47 AM CDT) WBC 4.5 3.8 - 9.8 K/cumm HISTORICAL RESULTS RBC 4.21(L) 4.50 - 5.70 M/cumm HISTORICAL RESULTS Hgb 11.8(L) 13.8 - 17.2 g/dl HISTORICAL RESULTS Hct 36.2(L) 40.7 - 50.3 % HISTORICAL RESULTS MCV 86.0 80.0 - 97.6 fl HISTORICAL RESULTS MCH 28.1 26.7 - 33.7 pg HISTORICAL RESULTS MCHC 32.7 32.7 - 35.5 g/dl HISTORICAL RESULTS Rdw 13.9 11.8 - 14.6 % HISTORICAL RESULTS Platelets 142 140 - 440 K/cumm HISTORICAL RESULTS MPV 11.3(H) 6.8 - 10.4 fl HISTORICAL RESULTS Neutrophils 50.8 38.7 - 74.5 % HISTORICAL RESULTS Lymphocytes 37.0 20.0 - 54.3 % HISTORICAL RESULTS Monos 9.0 4.3 - 13.5 % HISTORICAL RESULTS Eosinophils 2.8 0.0 - 6.0 % HISTORICAL RESULTS Basophils 0.4 0.0 - 3.0 % HISTORICAL RESULTS Neutrophils, abs 2.3 1.8 - 6.6 K/cumm HISTORICAL RESULTS Lymphocytes, abs 1.7 1.2 - 3.3 K/cumm HISTORICAL RESULTS Monocytes, absolute 0.4 0.2 - 1.2 K/cumm HISTORICAL RESULTS Eosinophils, abs 0.1 0.0 - 0.5 K/cumm HISTORICAL RESULTS Basophils, abs 0.0 0.0 - 0.2 K/cumm HISTORICAL RESULTS Blood specimen (specimen) 07/05/2013 3:47 AM CDT us Blas Garcia MD LAB BLOOD ORDERABLES Final Result HISTORICAL RESULTS * All Microbiology Report Section (07/05/2013 12:00 AM CDT) 07/05/2013 Narrative HISTORICAL RESULTS - 07/06/2013 3:30 PM CDT ? [facility] ?[address] [facility] [place] ?[place] [address] ? Patient Name: ??YOSEF ALCALA, CARMELO ? Med Rec Number: [id number] ? Fin Number: ?[id number] ? Date: ?1985 ? Sex/Age: ? Male 27 years ? Admit Date: ?07/05/2013 ? Discharge Date: ? Doctor: ?[facility] , [address] ? Facility: ?[facility] ? Location: ?[facility] [id number] ?* Abnormal ??A Alert ??f Footnote ??^ Corrected ??L Low ??H High ?i Interp Data ??@ Ref Lab ? Chart Type:Cumulative ?* * * * MICROBIOLOGY - URINE * * * * ?PROCEDURE: Urine Culture ? SOURCE: Urine ? COLLECTED: 07/05/13 ??1000 ?BODY SITE: ? STARTED: 07/05/13 ??1108 ? FREE TEXT SOURCE: ? FINAL REPORT ? REPORTED: 07/06/13 1413 ? No growth us Historical Provider MD LAB MICROBIOLOGY - GENERA L ORDERABLES Final Result HISTORICAL RESULTS documented in this encounter Visit Diagnoses Diagnosis Chronic pancreatitis (CMS/HCC) (HCC) Chronic pancreatitis Urinary tract infection Urinary tract infection, site not specified Decubitus ulcer of lower back Pressure ulcer, lower back Paraplegia (HCC) Paraplegia Other chronic nonalcoholic liver disease Adult body mass index 60.0-69.9 (HCC) Pressure ulcer Neurogenic bladder Neurogenic bladder, NOS Nausea with vomiting Cannabis abuse Nondependent cannabis abuse, unspecified Anxiety state Anxiety state, unspecified Tobacco use disorder Morbid obesity (HCC) Morbid obesity Status post below knee amputation Lower limb amputation, below knee documented in this encounter Additional Health Concerns Infection Onset Date Last Indicated Resolved Time MRSA Comment: 03/31/2021 IP Review - 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 Not a candidate for isolation discontinuation at this time. 

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
== END 2024-11-05 20:10 | DRG 391 ==
LOC: ANHED 05:16 → ANHIMU 06:32
PROVIDERS: Admitting Provider Internal Medicine; Emergency Provider Emergency Medicine; PCP Internal Medicine; Visit Provider Family Medicine
DX: R11.2 Nausea with vomiting, unspecified (principal); L89.153 Pressure ulcer of sacral region, stage 3; G82.20 Paraplegia, unspecified; I16.0 Hypertensive urgency; R00.1 Bradycardia, unspecified; T50.995A Adverse effect of other drugs, medicaments and biological substances, initial encounter; N35.919 Unspecified urethral stricture, male, unspecified site; N31.2 Flaccid neuropathic bladder, not elsewhere classified; K56.41 Fecal impaction; G89.29 Other chronic pain; Z23 Encounter for immunization; E11.9 Type 2 diabetes mellitus without complications; I10 Essential (primary) hypertension; K21.9 Gastro-esophageal reflux disease without esophagitis; F41.9 Anxiety disorder, unspecified; D64.9 Anemia, unspecified; Z99.3 Dependence on wheelchair; Z90.49 Acquired absence of other specified parts of digestive tract; Z89.512 Acquired absence of left leg below knee; Z89.511 Acquired absence of right leg below knee; Z87.891 Personal history of nicotine dependence
CPT/HCPCS: 36415; 70450; 71045; 74177; 80053; 81001; 83605; 83690; 83735; 84145; 84484; 85025; 85055; 85610; 85730; 87040; 87086; 87186; 87637; 90471; 90656; 93005; 96374; 96375; 96376; 99285; A9270; G0008; G0378; J0360; J1171; J1642; J2270; J2405; J7030; Q9967

== ENCOUNTER 2024-12-01 17:28 | Emergency (ER) | payer MEDICARE, MEDICAID, SELFPAY ==
[2024-12-01] VITALS (22 sets, daily range): BP systolic 161–174; BP diastolic 101–118; PULSE 44–73; RESP 10–31; TEMP 36.4; O2SAT 91–100
--- NOTE | ~2024-12-01 | CT_ITS ---
CLINICAL INDICATION: Abdominal pain COMPARISON: 11/04/2024. TECHNIQUE: Multiple contiguous axial images of the abdomen and pelvis were performed following the ad ministration of with 100 mL Omnipaque-350 intravenous contrast The dose-length product (DLP) was 1573.16 mGy-cm. Automated exposure control and iterative reconstruction technique were employed. FINDINGS/OBSERVATIONS: Visualized lower thorax: The bilateral lung bases are clear. The heart is of normal size, without pericardial effusion. Liver: The liver enhances homogeneously and is not enlarged measuring 14 cm in longitudinal dimension. Inter aurea resolution of the trace pneumobilia seen on previous examination. Gallbladder and biliary system: The gallbladder is surgically absent. Pancreas: The pancreas enhances homogeneously without ductal dilatation. Spleen: The spleen enhances homogeneously and is not enlarged measuring 6cm in longitudinal dimension. Kidneys: Multiple subcentimeter foci of decreased attenuation within the bilateral kidneys, most cons istent with simple cysts but too small to characterize. These are stable from prior. The remainder of the bilateral kidneys otherwise enhance symmetrically without hydronephrosis or trevon l calculi. Adrenal glands: Unremarkable. Gastrointestinal tract: Appendicovesicostomy with bladder augmentation in the right hemipelvis extending to the level of the umbilicus. Trace fecal stasis within the colon. Appendix: Absent, as above. Vasculature: Unremarkable. TrapEase filter within the inferior vena cava. Lymph nodes: No pathologically enlarged or morphologically suspicious lymph nodes within the retroperitoneum or at the root of the mesentery. Pelvic structures: The bladder is distended, and otherwise unremarkable. The prostate gland is not enlarged. Body wall and musculoskeletal: Fatty atrophy of the bilateral psoas and iliopsoas muscles and bilateral atrophy of the paraspinous m usculature. Heterotopic bone formation surrounding the bilateral hips, unchanged. Collapse of the sacrum, unchanged from prior. Redemonstration of sacral decubitus, markedly improved from prior. IMPRESSION: No acute intra-abdominal findings, as detailed above. Reviewed, dictated and finalized at location A. LE FURNACE TENDER
--- NOTE | ~2024-12-01 | CT_ITS ---
History: Facial numbness PROCEDURE: CT head without contrast. COMPARISON: None TECHNIQUE: Axial imaging of the head performed from the skull base to the vertex without IV contrast. Sagittal a nd coronal reformations obtained. DLP: 757 mGy-cm FINDINGS: The ventricles are normal in size, shape and position. There is no mass, mass effect or midline shift. There is no abnormal extra-axial fluid collection or intracranial hemorrhage. Visualized paranasal sinuses are clear. The mastoid air cells are well aerated. No acute displaced fractures within the overlying cranium. Impression: No acute intracranial hemorrhage or suspicious mass effect. Reviewed, dictated and finalized at location A. TIONS COORDINATOR Impression: No acute intracranial hemorrhage or suspicious mass effect.
--- NOTE | 2024-12-01 18:14 | PC.NURSE ---
Patient complaining of headache and face tingling at this time. Will inform provider
--- NOTE | 2024-12-01 18:19 | ECG_ITS ---
Test Date: 2024-12-01 18:25:32 Measurements Intervals [place] Rate: 60 P: -14 TN: 167 QRS: 27 QRSD: 109 T: -5 QT: 423 QTc: 423 Interpretive Statements SINUS RHYTHM WITH OCCASIONAL SUPRAVENTRICULAR PREMATURE COMPLEXES Compared to ECG 11/04/2024 04:22:59 Sinus bradycardia no longer present Electronically Signed On 12-01-2024 23:49:43 SPOOL HAULER by Mariano Burns M.D.
--- NOTE | 2024-12-01 18:26 | ED_ITS ---
HPI - Abdominal Pain General Chief Complaint: Abdominal Pain Stated Complaint: abd pain Time Seen by Provider: 12/01/24 18:25 History of Present Illness HPI narrative: Patient is a 39-year-old gentleman who presents emergency department with chief complaint of abdominal pain. Patient reports started having pain around 10:00 a.m. reports he had an episode of vomiting patient received Zofran prior to arrival reports that he has multiple issues with diverticulitis and other intra- abdominal issues patient is followed at [facility] Medications ?Medication ?Instructions ?Recorded ?Confirmed ?Last Taken ?Type acetaminophen 500 mg capsule 500 mg PO Q6H PRN pain or fever 05/02/22 11/04/24 Unknown History naloxone 4 mg/actuation nasal spray 1 spray intranasal Q2-3M PRN 05/23/24 11/04/24 Unknown History Opiate Reversal triamcinolone acetonide 0.025 % 1 applic topical DAILY 05/23/24 11/04/24 Unknown History topical cream alprazolam 0.25 mg tablet 0.25 mg PO BID 11/04/24 11/04/24 Unknown History fentanyl 50 mcg/hr transdermal 1 patch transdermal Q72H 11/04/24 11/04/24 11/03/24 00:00 History patch 1 patch folic acid 1 mg tablet 1,000 mcg PO DAILY 11/04/24 11/04/24 11/03/24 18:10 History 1,000 mcg gabapentin 300 mg capsule 300 mg PO DAILY 11/04/24 11/04/24 11/03/24 18:53 History 300 mg ibuprofen 400 mg tablet 400 mg PO Q6H 11/04/24 11/04/24 Unknown History pantoprazole 40 mg tablet,delayed 40 mg PO BID 11/04/24 11/04/24 Unknown History release polyethylene glycol 3350 17 gram 17 g PO DAILY PRN constipation 11/04/24 11/04/24 Unknown History oral powder packet (Miralax) sennosides 8.6 mg-docusate sodium 1 tab-cap PO DAILY 11/04/24 11/04/24 Unknown History 50 mg capsule (Senna Plus) Allergies Allergy/AdvReac Type Severity Reaction Status Date / Time metoclopramide (From Reglan) Allergy Other Verified 12/01/24 17:35 Review of Systems 2 Review of Systems: A 10 system review of systems was completed on the patient and is negative except for what is stated in the HPI. Nursing and ancillary documentation was reviewed. [facility] Past Medical History Medical History Nausea Chronic pain Sacral decubitus ulcer, stage III Osteomyelitis Discitis Abdominal pain Hypertensive urgency DVT prophylaxis Essential hypertension Chest pain Paraplegia Pyelonephritis HTN (hypertension) Surgical History Surgical History Mitrofanoff appendicovesicostomy present Hx of cholecystectomy S/P BKA (below knee amputation) bilateral Family History Family History Father History of blood clots Throat cancer Mother Diabetes mellitus Hypertension Social History Social History Social History: the patient stated that he uses marijuana but has not smoked cigarettes for quite some time. The patient resides in a snf. He is single and does not have any children. Code status full code Smoking packs per day: 1 Smoking cigarettes per day: 20.0 Years smoked: 12 Smoking pack-years: 12.00 Smoking status: Former smoker Tobacco type: cigarettes Smoking end date: 10/15/18 Alcohol intake: never Substance use: current Substance use type: marijuana and prescription drug Last use: 11/03/2024 Do You Feel Safe in your Home?: Yes Lack of Transportation: No Lack of Food: Never True Current Housing: I Have Housing Concerned About Future Housing: No Difficulty Paying Gas/Electric Bills: No Difficulty Paying for Meds: No Currently Unemployed: No Education: High School Diploma/GED Difficulty w/ Childcare or Family Care: No Living arrangements: snf Occupation/Education: other Gender identity (if verbalized by the patient): Male Sexual Orientation (if Verbalized by the Patient): Straight or Heterosexual Spiritual care concerns: No Agree to blood products: Yes Exam 2 Narrative: GENERAL: Well-appearing, well-nourished, and in no acute distress. HEAD: Normocephalic, atraumatic. EYES: PERRLA and EOMI. ENT: Nares clear, no rhinorrhea or epistaxis. Mucous membranes moist. NECK: Supple. CHEST: Clear to auscultation. No respiratory distress. HEART: Regular rate and rhythm. No murmur heard. Normal peripheral pulses. ABDOMEN: Soft, nontender, nondistended, normal active bowel sounds. EXTREMITIES: Normal range of motion. No edema. SKIN: Warm, dry, no rash. NEURO: No focal deficits. Alert and oriented x3. PSYCH: Normal mood and affect. Course Vital Signs Vital signs: Vital Signs Temperature 36.4 C 12/01/24 17:26 Pulse Rate 51 L 12/01/24 17:26 Respiratory Rate 17 12/01/24 17:26 Blood Pressure 161/101 H 12/01/24 17:26 Pulse Oximetry 100 12/01/24 17:26 Oxygen Delivery Room Air 12/01/24 17:26 Temperature 36.4 C 12/01/24 17:26 Pulse Rate 55 L 12/01/24 22:19 Respiratory Rate 12 12/01/24 22:19 Blood Pressure 174/110 H 12/01/24 22:19 Pulse Oximetry 100 12/01/24 22:19 Oxygen Delivery Room Air 12/01/24 17:26 MDM - Abdominal Pain MDM Narrative Medical decision making narrative: Differential diagnosis includes intra-abdominal infection, diverticulitis, abscess, urinary tract infection Laboratory studies were obtained on the patient which showed a normal CBC electrolytes showed a creatinine of 0.56 lactate was normal woke with it procalcitonin 0.1 urinalysis showed 51-100 white blood cells and 4+ bacteria the patient is chronically colonized a urine culture was sent Lab Data 12/01/24 20:35 12/01/24 20:35 Labs: Lab Results 12/01/24 12/01/24 Range/Units 20:35 23:21 WBC 9.5 (4.5-10.0) K/mm3 RBC 5.26 (4.6-6.20) M/mm3 Hgb 11.2 L (14.0-18.0) g/dL Hct 37.4 L (42.0-52.0) % MCV 71.1 L (80-100) fl MCH 21.3 L (26-34) pg MCHC 29.9 L (32-36) g/dl RDW 18.5 H (11.5-14.5) % Plt Count 346 (150-375) k/mm3 MPV 10.8 H (7.4-10.4) fl Immature Gran % (Auto) 0.5 (0-0.5) % Neut % (Auto) 84.7 H (45.5-73.1) % Lymph % (Auto) 11.6 L (18.3-44.2) % [place] % (Auto) 2.7 (2.6-8.5) % Eos % (Auto) 0.1 (0-4.4) % Baso % (Auto) 0.4 (0.2-1.2) % Lymph # (Auto) 1.10 (0.9-3.2) K/mm3 [place] # (Auto) 0.3 (0.1-0.6) K/mm3 Eos # (Auto) 0.0 (0-0.3) K/mm3 Baso # (Auto) 0.0 (0.0-0.1) K/mm3 Abs Immat Gran (auto) 0.05 H (0.00-0.031) K/mm3 Absolute Neuts (auto) 8.1 H (1.3-6.7) K/mm3 Absolute Nucleated RBC 0.000 (0.0-0.012) K/mm3 Nucleated RBC % 0.0 (0.0-0.2) % Platelet Estimate Adequate (Adequate) Hypochromasia 1+ Microcytosis 1+ (NORMAL) Schistocytes None seen Sodium 142 (137-145) mmol/L Potassium 3.1 L (3.4-5.0) mmol/L Chloride 108 H (98-107) mmol/L Carbon Dioxide 19 L (22-30) mmol/L Anion Gap 15 H (4-12) mmol/L BUN 15 (9-20) mg/dL Creatinine 0.56 L (0.7-1.3) mg/dL Estim Creat Clear Calc 176 ml/min Estimated GFR > 60 (59 - ) Glucose 118 H (65-110) mg/dL Lactic Acid 1.8 (0.7-2.0) mmol/L Calcium 8.7 (8.4-10.2) mg/dL Total Bilirubin 0.6 (0.2-1.3) mg/dL AST 21 (17-59) U/L ALT 24 (6-50) U/L Alkaline Phosphatase 126 (38-126) U/L Total Protein 8.0 (6.3-8.2) g/dL Albumin 4.2 (3.5-5.1) g/dL Lipase 167 (23-300) U/L Procalcitonin 0.1 ng/mL Urine Color Yellow (Yellow) Urine Appearance Cloudy H (Clear) Urine pH 6.0 (5.0-9.0) Ur Specific [place] 1.015 (1.001-1.035) Urine Protein 1+ H (Negative) mg/dL Urine Glucose (UA) Negative (Negative) mg/dL Urine Ketones Trace H (Negative) mg/dL Ur Blood (Man) Negative (Negative) Urine Nitrate Negative (Negative) Urine Bilirubin Negative (Negative) Urine Urobilinogen 0.2 (<2.0) mg/dL Add Ur Microanalysis Reviewed Leukocyte Esterase Rfl 2+ H (Negative) RAFA/UL Urine RBC 0-2 (0-2) /hpf Urine WBC 51-100 H (0-3) /hpf Ur Squamous Epith Cells Occasional (Few) /hpf Urine Bacteria 4+ H /hpf Urine Casts 6-10 Imaging Data Radiologist's impression: ITS Impressions Head CT 12/01/24 19:16 Impression: No acute intracranial hemorrhage or suspicious mass effect. Abdomen/Pelvis CT 12/01/24 23:18 IMPRESSION: No acute intra-abdominal findings, as detailed above. Discharge Plan Discharge Clinical Impression: Abdominal pain, Abnormal urinalysis Patient Disposition: NH Group Home/Asst Living Condition: Stable Instructions: Antibiotic Form, Abdominal Pain (ED) Additional Instructions: A urine culture has been sent in the emergency department. It is recommended that you follow-up with your doctors Patient Language: Slovak Prescriptions: No Action triamcinolone acetonide 0.025 % cream 1 applic TOPICAL DAILY Rx Instructions: FACE/CHEEK naloxone 4 mg/actuation spray,non-aerosol 1 spray INTRANASAL Q2-3M PRN (Reason: Opiate Reversal) cyclobenzaprine 5 mg tablet 5 mg PO TID PRN (Reason: Muscle Spasm) Qty: 1 0RF fentanyl 50 mcg/hr patch 72 hour 1 patch transdermal Q72H Patient Comments: Removed in ER gabapentin 300 mg capsule 300 mg PO DAILY alprazolam 0.25 mg tablet 0.25 mg PO BID Senna Plus 8.6-50 mg capsule 1 tab-cap PO DAILY pantoprazole 40 mg tablet,delayed release (DR/EC) 40 mg PO BID Rx Instructions: Before breakfast and dinner polyethylene glycol 3350 [Miralax] 17 gram powder in packet 17 g PO DAILY PRN (Reason: constipation) ibuprofen 400 mg tablet 400 mg PO Q6H folic acid 1 mg tablet 1,000 mcg PO DAILY nifedipine [Procardia XL] 30 mg Tablet Extended Release 24hr 90 mg PO QAM Qty: 30 0RF clonidine HCl 0.1 mg Tablet 0.1 mg PO Q12HR Qty: 60 0RF oxycodone-acetaminophen 5-325 mg tablet 1 tablet PO Q8H PRN (Reason: pain) Qty: 12 0RF acetaminophen 500 mg Capsule 500 mg PO Q6H PRN (Reason: pain or fever) Follow-up/Referrals: Balaji,MD Rick [Primary Care Provider] -
--- NOTE | 2024-12-01 18:30 | PC.NURSE ---
Patient to CT
--- OUTSIDE RECORDS SUMMARY | 2024-12-01 19:45 | XMS_ITS | Referral Summary ---
Author Organization [facility] Address [address] [place] [address] Care Team Providers Care Loan Review Analyst Name Role Phone Rick Carpio MD Primary Care Provider [phone] Source Comments [facility],non-owned Affiliates and Associated Physician Practices is amultiple site organization consisting of ambulatory clinics and hospital sitesin [place], [place], [place] and [place]. This disclosure is being madepursuant to the Care Everywhere program and may not contain all information available regarding this patient. Last updated 18.[facility] Encounters Date Type Department Care Team Description 10/02/2024 Telephone [facility] - Centralized Scheduling [address] [place] [address] Sabi Payne MD Appointment 09/25/2024 Travel 09/25/2024 1:21 PM STUDENT TRUCK DRIVER Anesthesia Event [facility] ENDOSCOPY [address] [place] [address] Dafne Heller MD Buchheit, Rachel E, APRN-FIELD ENUMERATOR 09/25/2024 12:30 PM STUDENT TRUCK DRIVER - 09/25/2024 1:15 PM STUDENT TRUCK DRIVER Surgery [facility] [address] ENDOSCOPY [address] [place] [address] Azar Begum MD COLONOSCOPY DIAGNOSTIC---extend ed 2 day prep----check portable KUB in pre op please!! 09/25/2024 11:40 AM STUDENT TRUCK DRIVER - 09/25/2024 2:32 PM STUDENT TRUCK DRIVER Hospital Encounter [facility] REUBEN OP [address] [place] [address] Azar Begum MD Surgery General Discharge Disposition: Home or Self Care 09/20/2024 Patient Outreach [facility] ENDOSCOPY [address] [place] [phone] Wendy Loaiza, RN 09/16/2024 Orders Only [facility] [address] ENDOSCOPY [address] [place] [phone] Wendy Loaiza, RN from Last 3 Months [...] naloxone HCl (Narcan) 4 MG/0.1ML nasal spray Seth 1 (one) spray into the nose as [...] Comments Blood Pressure 109/59 09/25/2024 2:00 PM STUDENT TRUCK DRIVER Pulse 86 09/25/2024 2:00 PM STUDENT TRUCK DRIVER Temperature 36.6 ??C (97.8 ??F) 09/25/2024 1:45 PM CS T Respiratory Rate 14 09/25/2024 2:00 PM STUDENT TRUCK DRIVER Oxygen Saturation 100% 09/25/2024 2:00 PM STUDENT TRUCK DRIVER Inhaled Oxygen Concentration - - Weight 132.5 kg (292 lb) 09/25/2024 12:41 PM STUDENT TRUCK DRIVER Height 165.1 cm (5' 5 ) 09/25/2024 12:41 PM STUDENT TRUCK DRIVER Body Mass Index 48.59 09/25/2024 12:41 PM STUDENT TRUCK DRIVER Functional Status Functional Status Response Date of [...] concentrating/remembering/making decisions? No 09/25/2024 Plan of Treatment Not on file Goals Goal Patient Goal Type Associated Problems [...] Procedure Name Priority Date/Time Associated Diagnosis Comments MA COLONOSCOPY, DIAGNOSTIC 09/25/2024 1:16 PM STUDENT TRUCK DRIVER Other constipation XR ABDOMEN KUB PORTABLE STAT 09/25/2024 1:14 PM STUDENT TRUCK DRIVER Constipation, unspecified constipation type ENDOSCOPY, COLON, DIAGNOSTIC Routine 09/25/2024 12:25 PM STUDENT TRUCK DRIVER RENAL FUNCTION PANEL AM Draw 08/26/2019 5:13 AM CDT Mass of spine from Last 3 Months or Most Recently Relevant to Health Maintenance Results * XR Abdomen Kub Portable (09/25/2024 1:14 PM STUDENT TRUCK DRIVER) Anatomical Region Laterality Modality Abdomen Digital Radiogra phy 09/25/2024 1:14 PM STUDENT TRUCK DRIVER Impressions 09/25/2024 6:16 PM STUDENT TRUCK DRIVER IMPRESSION: Nonobstructive bowel gas pattern. Mild colonic stool burden. > Dictated by Nidhi Hou MD, (residential mental health worker). IMyles MD have personally reviewed and interpreted this examination/study. > Interpreting Provider: Myles Lees MD on 09/25/2024 6:16 PM Narrative 09/25/2024 6:16 PM STUDENT TRUCK DRIVER PROCEDURE: ??XR ABDOMEN KUB PORTABLE DATE/TIME [...] > Dictated by Nidhi Hou MD, (residential mental health worker). I, Myles Lees MD have personally reviewed and interpreted this examination/study. > Interpreting Provider: Myles Lees MD on 09/25/2024 6:16 PM Azar Begum MD DIAGNOSTIC [facility] ORDERABLES * ENDOSCOPY, COLON, DIAGNOSTIC (09/25/2024 12:25 PM STUDENT TRUCK DRIVER) Report Endoscopy POC Endoscopy Department Report _ Patient Name: Shawn Casey ? Procedure Date: 09/25/2024 12:25 PM ?Date of : 1985 Classification: Outpatient ?Gender: Male Ethnicity: Not or ? Race: Black or _ Providers: ?Azar Kearns MD: ? Rick TravisGeorge Carpio (Referring MD) Procedure: ?Colonoscopy Indications: ?Screening [...] Procedure Code(s): ? --- Professional --- ? 96582, 53, Colonoscopy, flexible; diagnostic, including collection of ? specimen(s) by brushing or washing, when performed (separate procedure) Diagnosis Code(s): ?--- Professional --- ?Z12.11, Encounter for screening for malignant ?neoplasm of colon CPT copyright 2021 [employer]. All rights reserved. The codes documented in this report are preliminary and upon procedural nurse review may be revised to meet current compliance requirements. Azar Begum, 09/25/2024 1:40:42 PM Note Initiated On: 09/25/2024 12:25 PM Number of Addenda: 0 ? [facility] ? [address] [place] [address] [facility] [address] PROVATION 09/25/2024 12:2 5 PM STUDENT TRUCK DRIVER Azar Begum MD GI PROCEDURE O RDERABLES [facility] [address] PROVATION * (ABNORMAL) RENAL FUNCTION PANEL (08/26/2019 5:13 AM CDT) BUN 18 7 - 26 mg/dL 08/26/2019 5:52 AM [facility] Creatinine 0.6 0.6 - 1.2 mg/dL 08/26/2019 5:52 AM [facility] Sodium 139 136 - 145 mmol/L 08/26/2019 5:52 AM [facility] Potassium 4.1 3.5 - 4.5 mmol/L 08/26/2019 5:52 AM [facility] Chloride 107 98 - 107 mmol/L 08/26/2019 5:52 AM [facility] CO2 23 22 - 29 mmol/L 08/26/2019 5:52 AM [facility] Glucose 94 70 - 115 mg/dL 08/26/2019 5:52 AM [facility] Albumin 3.2(L) 3.4 - 5.0 g/dL 08/26/2019 5:52 AM [facility] Calcium 8.8 8.4 - 10.2 mg/dL 08/26/2019 5:52 AM [facility] Phosphorus 4.2 2.3 - 4.7 mg/dL 08/26/2019 5:52 AM [facility] Anion Gap 13 8 - 18 08/26/2019 5:52 AM [facility] BUN/Creatinine Ratio 30(H) 7 - 23 08/26/2019 5:52 AM [facility] Osmolality Calculated 290 270 - 300 mOsm/kg 08/26/2019 5:52 AM CDT [facility] LABORATORY [facility] eGFR >60 >60 mL/min/1.7 3 m2 08/26/2019 5:52 AM CDT [facility] Blood BLOOD SPECIMEN / Unknown Lab Venipuncture / Unknown 08/26/2019 5:13 AM CDT 08/26/2019 5:19 AM CDT Sarah Andrade MD LAB - CHEMISTRY ELPIDIO Suarez Organization Address City/State/ZIP Co de Phone Number [facility] [address] [phone] from Last 3 Months or Most Recently Relevant to Health Maintenance Additional Health Concerns Infection Onset Date Last Indicated ESBL GNR 11/17/2023 11/17/2023 MDRO 11/17/2023 11/17/2023 Advance Directives Documents on File Type Date Recorded Patient Property Insurance Agent Expl anation Adv Directive/Living Will/POA 09/04/2019 6:07 AM * Full Code (Latest Code Status on File) Date Activated Date Inactivated Comments 08/10/2019 6:43 AM 08/26/2019 6:47 PM Care Teams Loan Review Analyst Relationship Specialty Start Date End Date Rick Carpio MD [address] [id number] PCP - General Internal Medicine 06/29/24
--- OUTSIDE RECORDS SUMMARY | 2024-12-01 19:45 | XMS_ITS | Referral Summary ---
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 Data Percent cell count reference ranges are not reported, since discordance with absolute values may lead to misinterpretation of CBC data. Current Interpretive Data was last revised on 2018. Monocyte pct 8.4 % [facility] Comment: Interpretive Data Percent cell count reference ranges are not reported, since discordance with absolute values may lead to misinterpretation of CBC data. Current Interpretive Data was last revised on 2018. Eosinophil pct 2.2 % [facility] Comment: Interpretive Data Percent cell count reference ranges are not reported, since discordance with absolute values may lead to misinterpretation of CBC data. Current Interpretive Data was last revised on 2018. Basophil pct 0.2 % [facility] Comment: Interpretive Data Percent cell count reference ranges are not reported, since discordance with absolute values may lead to misinterpretation of CBC data. Current Interpretive Data was last revised on 2018. Blood 10/07/2024 3:16 AM [facility] 10/07/2024 3:31 AM [facility]ER us Yoseph Golden MD LAB BLOOD ORDERABLES Final Resul t Performing Organization Address [facility] [address] [facility] de Phone Number [facility] Department [place] [address] * (ABNORMAL) CBC with auto differential (10/07/2024 3:16 AM [facility]ER) Pathologist [facility] WBC 9.5 3.8 - 9.9 K/cumm Hgb 7.4(L) 13.0 - 17.5 g/dL [facility] Hct 24.6(L) 38.9 - 50.3 % [facility] Plt 400 150 - 400 K/cumm [facility] MPV 9.9 9.1 - 12.3 fL [facility] RBC 3.33(L) 4.30 - 5.80 M/cumm [facility] MCV 73.9(L) 81.3 - 96.4 fL [facility] MCH 22.2(L) 27.1 - 33.3 pg [facility] MCHC 30.1(L) 32.3 - 35.7 g/dL [facility] RDW CV 19.8(H) 11.1 - 14.9 % [facility] RDW SD 49.8(H) 35.7 - 48.1 fL [facility] NRBC abs 0.00 0.00 - 0.01 K/cumm [facility] Blood 10/07/2024 3:16 AM [facility]ER 10/07/2024 3:31 AM [facility]ER us Yoseph Golden MD LAB BLOOD ORDERABLES Final Resul t Performing Organization Address [facility] [address]/ZIP Co de Phone Number [facility] Department [place] [address] * (ABNORMAL) Comprehensive metabolic panel (10/07/2024 3:16 AM [facility]ER) Pathologist [facility] Sodium 138 135 - 145 mmol/L Potassium, pl 4.3 3.3 - 4.9 mmol/L [facility] Chloride 106 97 - 110 mmol/L [facility] CO2 26 22 - 32 mmol/L [facility] Anion gap 6 2 - 15 mmol/L [facility] BUN 12 6 - 25 mg/dL [facility] Creatinine 0.52(L) 0.80 - 1.30 mg/dL [facility] Glucose 100 70 - 199 mg/dL [facility] Comment: Interpretive Data Fasting glucose >/= [...] 2022. Calcium 8.4(L) 8.5 - 10.3 mg/dL [facility] Bilirubin, total <0.2 0.1 - 1.2 mg/dL [facility] Comment:Repeated and Verifie d Protein, pl 6.9 6.5 - 8.5 g/dL [facility] Albumin 2.6(L) 3.5 - 5.0 g/dL [facility] Alk phos 93 40 - 130 Units/L [facility] ALT 9 7 - 55 Units/L [facility] AST 11 10 - 50 Units/L [facility] Blood 10/07/2024 3:16 AM [facility]ER 10/07/2024 3:31 AM [facility]ER us Yoseph Golden MD LAB BLOOD ORDERABLES Final Resul t [facility] [place] [address] * eGFR (10/06/2024 6:15 AM [facility]ER) Pathologist [facility] eGFR >90 >=60 [...] last reviewed 2021. Blood 10/06/2024 6:15 AM [facility]ER 10/06/2024 7:05 AM [facility]ER us Yoseph Golden MD LAB BLOOD ORDERABLES Final Resul t [facility] Department [place] [address] * (ABNORMAL) Differential, auto (10/06/2024 6:15 AM [facility]) Neutrophil abs 6.5 1.5 - 6.5 K/cumm Imm gran abs 0.4(H) 0.0 - 0.1 K/cumm [facility] Lymphocyte abs 2.5 0.8 - 3.3 K/cumm [facility] Monocyte abs 1.2(H) 0.2 - 0.8 K/cumm [facility] Eosinophil abs 0.3 0.0 - 0.5 K/cumm [facility] Basophil abs 0.0 0.0 - 0.1 K/cumm [facility] Neutrophil pct 59.5 % [facility] Comment: Interpretive Data Percent cell count reference ranges are not reported, since discordance with absolute values may lead to misinterpretation of CBC data. Current Interpretive Data was last revised on 2018. Imm gran pct 4.0 % [facility] Comment: Interpretive Data Percent cell count reference ranges are not reported, since discordance with absolute values may lead to misinterpretation of CBC data. Current Interpretive Data was last revised on 2018. Lymphocyte pct 23.0 % [facility] Comment: Interpretive Data Percent cell count reference ranges are not reported, since discordance with absolute values may lead to misinterpretation of CBC data. Current Interpretive Data was last revised on 2018. Monocyte pct 10.6 % [facility] Comment: Interpretive Data Percent cell count reference ranges are not reported, since discordance with absolute values may lead to misinterpretation of CBC data. Current Interpretive Data was last revised on 2018. Eosinophil pct 2.5 % [facility] Comment: Interpretive Data Percent cell count reference ranges are not reported, since discordance with absolute values may lead to misinterpretation of CBC data. Current Interpretive Data was last revised on 2018. Basophil pct 0.4 % [facility] Comment: Interpretive Data Percent cell count reference ranges are not reported, since discordance with absolute values may lead to misinterpretation of CBC data. Current Interpretive Data was last revised on 2018. Blood 10/06/2024 6:15 AM [facility] 10/06/2024 7:01 AM [facility]ER us Yoseph Golden MD LAB BLOOD ORDERABLES Final Resul t [facility] Department [place] [address] * (ABNORMAL) CBC with auto differential (10/06/2024 6:15 AM [facility]ER) WBC 10.9(H) 3.8 - 9.9 K/cumm Hgb 7.4(L) 13.0 - 17.5 g/dL [facility] Hct 24.4(L) 38.9 - 50.3 % [facility] Plt 401(H) 150 - 400 K/cumm [facility] MPV 9.7 9.1 - 12.3 fL [facility] RBC 3.31(L) 4.30 - 5.80 M/cumm [facility] MCV 73.7(L) 81.3 - 96.4 fL [facility] MCH 22.4(L) 27.1 - 33.3 pg [facility] MCHC 30.3(L) 32.3 - 35.7 g/dL [facility] RDW CV 19.7(H) 11.1 - 14.9 % [facility] RDW SD 49.0(H) 35.7 - 48.1 fL [facility] NRBC abs 0.00 0.00 - 0.01 K/cumm [facility] Blood 10/06/2024 6:15 AM [facility]ER 10/06/2024 7:01 AM [facility]ER us Yoseph Golden MD LAB BLOOD ORDERABLES Final Resul t [facility] Department [place] [address] * Phosphorus (10/06/2024 6:15 AM B[facility]ER) Phosphorus, pl 3.9 2.3 - 4.5 mg/dL Blood 10/06/2024 6:15 AM [facility]ER 10/06/2024 7:05 AM [facility]ER us Kathia Ruiz MD LAB BLOOD ORDERABLES Jessica l Result [facility] Department [place] [address] * Magnesium (10/06/2024 6:15 AM B[facility]ER) Pathologist [facility] Magnesium 2.0 1.4 - 2.5 mg/dL Blood 10/06/2024 6:15 AM [facility]ER 10/06/2024 7:05 AM [facility]ER us Kathia Ruiz MD LAB BLOOD ORDERABLES Jessica nancy Result [facility] Department [place] [address] * (ABNORMAL) Comprehensive metabolic panel (10/06/2024 6:15 AM B[facility]ER) Pathologist [facility] Sodium 141 135 - 145 mmol/L Potassium, pl 3.7 3.3 - 4.9 mmol/L [facility] Chloride 108 97 - 110 mmol/L [facility] CO2 25 22 - 32 mmol/L [facility] Anion gap 8 2 - 15 mmol/L [facility] BUN 12 6 - 25 mg/dL [facility] Creatinine 0.58(L) 0.80 - 1.30 mg/dL [facility] Glucose 88 70 - 199 mg/dL [facility] Comment: Interpretive Data Fasting glucose >/= [...] 2022. Calcium 8.2(L) 8.5 - 10.3 mg/dL [facility] Bilirubin, total 0.2 0.1 - 1.2 mg/dL [facility] Comment:Reviewed Protein, pl 6.7 6.5 - 8.5 g/dL [facility] Albumin 3.0(L) 3.5 - 5.0 g/dL [facility] Alk phos 88 40 - 130 Units/L [facility] ALT 10 7 - 55 Units/L [facility] AST 5(L) 10 - 50 Units/L [facility] Blood 10/06/2024 6:15 AM [facility]ER 10/06/2024 7:05 AM [facility]ER Yoseph Golden MD LAB BLOOD ORDERABLES Final Resul t Performing Organization Address [facility] [address] [facility] Co de Phone Number [facility] [place] [address] * C. difficile testing Stool (10/05/2024 9:43 PM [facility] RIDER) [facility] Result Negative Negative Toxin Result Negative Negative [facility] C. diff result Negative, free toxin Negative, free toxin [facility] C. diff interp Negative for toxigenic Clostridioides (Clostridium) difficile. Analysis was performed using a glutamate dehydrogenase antigen detection assay combined with a C. difficile toxin detection assay. [facility] Stool 10/05/2024 9:43 PM [facility]ER 10/05/2024 11:54 PM [facility] Yoseph Golden MD LAB MICROBIOLOGY - GENERAL ORDER WHITNEY Final Result Performing Organization Address [facility] de Phone Number [facility] [place] [address] * Infection Prevention VRE Culture Stool (10/05/2024 9:43 PM [facility]ER) Report Final Report: Negative Stool 10/05/2024 9:43 PM [facility]ER 10/06/2024 4:23 AM [facility]ER Narrative [facility] - 10/08/2024 7:57 AM [facility]ER Surveillance culture for Infection Prevention purposes only; results indicate colonization, not infection requiring treatment. Testing performed by [facility] Microbiology Laboratory ([phone]). us Yoseph Golden MD LAB MICROBIOLOGY - GENERAL ORDER WHITNEY Final Result Performing Organization Address [facility] [address]/[facility] Co de Phone Number [facility] Department [place] [address] * eGFR (10/05/2024 8:13 AM [facility]ER) eGFR >90 >=60 mL/min/1. 73 m2 Comment: [...] last reviewed 2021. Blood 10/05/2024 8:13 AM [facility]ER 10/05/2024 8:53 AM [facility]ER us Yoseph Golden MD LAB BLOOD ORDERABLES Final Resul t [facility] Department [place] [address] * (ABNORMAL) Differential, auto (10/05/2024 8:13 AM [facility]ER) Neutrophil abs 6.4 1.5 - 6.5 K/cumm Imm gran abs 0.5(H) 0.0 - 0.1 K/cumm [facility] Lymphocyte abs 2.1 0.8 - 3.3 K/cumm [facility] Monocyte abs 1.1(H) 0.2 - 0.8 K/cumm [facility] Eosinophil abs 0.3 0.0 - 0.5 K/cumm [facility] Basophil abs 0.0 0.0 - 0.1 K/cumm [facility] Neutrophil pct 62.0 % [facility] Comment: Interpretive Data Percent cell count reference ranges are not reported, since discordance with absolute values may lead to misinterpretation of CBC data. Current Interpretive Data was last revised on 2018. Imm gran pct 4.3 % [facility] Comment: Interpretive Data Percent cell count reference ranges are not reported, since discordance with absolute values may lead to misinterpretation of CBC data. Current Interpretive Data was last revised on 2018. Lymphocyte pct 20.2 % [facility] Comment: Interpretive Data Percent cell count reference ranges are not reported, since discordance with absolute values may lead to misinterpretation of CBC data. Current Interpretive Data was last revised on 2018. Monocyte pct 10.7 % [facility] Comment: Interpretive Data Percent cell count reference ranges are not reported, since discordance with absolute values may lead to misinterpretation of CBC data. Current Interpretive Data was last revised on 2018. Eosinophil pct 2.5 % [facility] Comment: Interpretive Data Percent cell count reference ranges are not reported, since discordance with absolute values may lead to misinterpretation of CBC data. Current Interpretive Data was last revised on 2018. Basophil pct 0.3 % [facility] Comment: Interpretive Data Percent cell count reference ranges are not reported, since discordance with absolute values may lead to misinterpretation of CBC data. Current Interpretive Data was last revised on 2018. Blood 10/05/2024 8:13 AM [facility]ER 10/05/2024 8:52 AM [facility]ER us Yoseph Golden MD LAB BLOOD ORDERABLES Final Resul t [facility] Department [place] [address] * (ABNORMAL) CBC with auto differential (10/05/2024 8:13 AM B[facility]IDER) WBC 10.4(H) 3.8 - 9.9 K/cumm Hgb 7.8(L) 13.0 - 17.5 g/dL [facility] Hct 25.9(L) 38.9 - 50.3 % [facility] Plt 423(H) 150 - 400 K/cumm [facility] MPV 9.8 9.1 - 12.3 fL [facility] RBC 3.45(L) 4.30 - 5.80 M/cumm [facility] MCV 75.1(L) 81.3 - 96.4 fL [facility] MCH 22.6(L) 27.1 - 33.3 pg [facility] MCHC 30.1(L) 32.3 - 35.7 g/dL [facility] RDW CV 19.2(H) 11.1 - 14.9 % [facility] RDW SD 48.6(H) 35.7 - 48.1 fL [facility] NRBC abs 0.00 0.00 - 0.01 K/cumm [facility] Blood 10/05/2024 8:13 AM [facility]IDER 10/05/2024 8:52 AM [facility]ER us Yoseph Golden MD LAB BLOOD ORDERABLES Final Resul t Performing Organization Address City/[facility] [address]/[facility] Co de Phone Number [facility] Department [place] [address] * Phosphorus (10/05/2024 8:13 AM B[facility]BACK RIDER) Pathologist [facility] Phosphorus, pl 3.8 2.3 - 4.5 mg/dL Blood 10/05/2024 8:13 AM [facility]ER 10/05/2024 8:39 AM B[facility]IDER us Yoseph Golden MD LAB BLOOD ORDERABLES Final Resul t Performing Organization Address [facility] [address]/[facility] Co de Phone Number [facility] Department [place] [address] * Magnesium (10/05/2024 8:13 AM B[facility]BACK RIDER) [facility] Magnesium 2.1 1.4 - 2.5 mg/dL Blood 10/05/2024 8:13 AM [facility]ER 10/05/2024 8:39 AM [facility]ER Yoseph Golden MD LAB BLOOD ORDERABLES Final Resul t [facility] Department [place] [address] * (ABNORMAL) Comprehensive metabolic panel (10/05/2024 8:13 AM B[facility] RIDER) [facility] Sodium 139 135 - 145 mmol/L Potassium, pl 4.1 3.3 - 4.9 mmol/L [facility] Chloride 109 97 - 110 mmol/L [facility] CO2 25 22 - 32 mmol/L [facility] Anion gap 5 2 - 15 mmol/L [facility] BUN 14 6 - 25 mg/dL [facility] Creatinine 0.54(L) 0.80 - 1.30 mg/dL [facility] Glucose 91 70 - 199 mg/dL [facility] Comment: Interpretive Data Fasting glucose >/= [...] 2022. Calcium 8.4(L) 8.5 - 10.3 mg/dL [facility] Bilirubin, total <0.2 0.1 - 1.2 mg/dL [facility] Protein, pl 7.0 6.5 - 8.5 g/dL [facility] Albumin 2.6(L) 3.5 - 5.0 g/dL [facility] Alk phos 98 40 - 130 Units/L [facility] ALT 9 7 - 55 Units/L [facility] AST 10 10 - 50 Units/L [facility] Blood 10/05/2024 8:13 AM [facility]ER 10/05/2024 8:39 AM [facility]ER Yoseph Golden MD LAB BLOOD ORDERABLES Final Resul t [facility] Department [place] [address] * eGFR (10/04/2024 6:24 AM B[facility] RIDER) eGFR >90 >=60 mL/min/1. 73 m2 Comment: [...] last reviewed 2021. Blood 10/04/2024 6:24 AM [facility]ER 10/04/2024 6:49 AM [facility]ER us Yoseph Golden MD LAB BLOOD ORDERABLES Final Resul t [facility] Department [place] [address] * (ABNORMAL) Differential, auto (10/04/2024 6:24 AM B[facility] RIDER) Neutrophil abs 7.0(H) 1.5 - 6.5 K/cumm Imm gran abs 0.5(H) 0.0 - 0.1 K/cumm [facility] Lymphocyte abs 2.2 0.8 - 3.3 K/cumm [facility] Monocyte abs 1.1(H) 0.2 - 0.8 K/cumm [facility] Eosinophil abs 0.4 0.0 - 0.5 K/cumm [facility] Basophil abs 0.0 0.0 - 0.1 K/cumm [facility] Neutrophil pct 62.8 % [facility] Comment: Interpretive Data Percent cell count reference ranges are not reported, since discordance with absolute values may lead to misinterpretation of CBC data. Current Interpretive Data was last revised on 2018. Imm gran pct 4.0 % [facility] Comment: Interpretive Data Percent cell count reference ranges are not reported, since discordance with absolute values may lead to misinterpretation of CBC data. Current Interpretive Data was last revised on 2018. Lymphocyte pct 19.4 % [facility] Comment: Interpretive Data Percent cell count reference ranges are not reported, since discordance with absolute values may lead to misinterpretation of CBC data. Current Interpretive Data was last revised on 2018. Monocyte pct 9.9 % [facility] Comment: Interpretive Data Percent cell count reference ranges are not reported, since discordance with absolute values may lead to misinterpretation of CBC data. Current Interpretive Data was last revised on 2018. Eosinophil pct 3.5 % [facility] Comment: Interpretive Data Percent cell count reference ranges are not reported, since discordance with absolute values may lead to misinterpretation of CBC data. Current Interpretive Data was last revised on 2018. Basophil pct 0.4 % [facility] Comment: Interpretive Data Percent cell count reference ranges are not reported, since discordance with absolute values may lead to misinterpretation of CBC data. Current Interpretive Data was last revised on 2018. Blood 10/04/2024 6:24 AM [facility]BACK RIDER 10/04/2024 6:46 AM [facility]BACK RIDER us Yoseph Golden MD LAB BLOOD ORDERABLES Final Resul t Performing Organization Address [facility] [address] [facility] Co de Phone Number [facility] Department [place] [address] * (ABNORMAL) CBC with auto differential (10/04/2024 6:24 AM B[facility]BACK RIDER) WBC 11.1(H) 3.8 - 9.9 K/cumm Hgb 7.9(L) 13.0 - 17.5 g/dL [facility] Hct 26.2(L) 38.9 - 50.3 % [facility] Plt 435(H) 150 - 400 K/cumm [facility] MPV 10.3 9.1 - 12.3 fL [facility] RBC 3.56(L) 4.30 - 5.80 M/cumm [facility] MCV 73.6(L) 81.3 - 96.4 fL [facility] MCH 22.2(L) 27.1 - 33.3 pg [facility] MCHC 30.2(L) 32.3 - 35.7 g/dL [facility] RDW CV 18.8(H) 11.1 - 14.9 % [facility] RDW SD 47.9 35.7 - 48.1 fL [facility] NRBC abs 0.00 0.00 - 0.01 K/cumm [facility] Blood 10/04/2024 6:24 AM [facility]BACK RIDER 10/04/2024 6:46 AM B[facility]BACK RIDER us Yoseph Golden MD LAB BLOOD ORDERABLES Final Resul t Performing Organization Address [facility] [address]/ZIP Co de Phone Number [facility] Department [place] [address] * Phosphorus (10/04/2024 6:24 AM BAREBACK RIDER) [facility] Phosphorus, pl 3.4 2.3 - 4.5 mg/dL Blood 10/04/2024 6:24 AM [facility]BACK RIDER 10/04/2024 6:49 AM B[facility]BACK RIDER Kathia Ruiz MD LAB BLOOD ORDERABLES Jessica l Result Performing Organization Address City/[facility] [address]/ZIP Co de Phone Number [facility] [place] [address] * Magnesium (10/04/2024 6:24 AM BAREBACK RIDER) [facility] Magnesium 2.1 1.4 - 2.5 mg/dL Blood 10/04/2024 6:24 AM [facility] RIDER 10/04/2024 6:49 AM B[facility]BACK RIDER Kathia Ruiz MD LAB BLOOD ORDERABLES Jessica l Result Performing Organization Address City/[facility] [address]/[facility] [place] [address] * (ABNORMAL) Comprehensive metabolic panel (10/04/2024 6:24 AM BAREBACK RIDER) [facility] Sodium 137 135 - 145 mmol/L Potassium, pl 3.9 3.3 - 4.9 mmol/L [facility] Chloride 109 97 - 110 mmol/L [facility] CO2 24 22 - 32 mmol/L [facility] Anion gap 4 2 - 15 mmol/L [facility] BUN 14 6 - 25 mg/dL [facility] Creatinine 0.56(L) 0.80 - 1.30 mg/dL [facility] Glucose 88 70 - 199 mg/dL [facility] Comment: Interpretive Data Fasting glucose >/= [...] 2022. Calcium 8.2(L) 8.5 - 10.3 mg/dL [facility] Bilirubin, total <0.2 0.1 - 1.2 mg/dL [facility] Protein, pl 6.8 6.5 - 8.5 g/dL [facility] Albumin 2.6(L) 3.5 - 5.0 g/dL [facility] Alk phos 95 40 - 130 Units/L [facility] ALT 11 7 - 55 Units/L [facility] AST 11 10 - 50 Units/L [facility] Blood 10/04/2024 6:24 AM [facility]BACK RIDER 10/04/2024 6:49 AM B[facility]BACK RIDER Yoseph Golden MD LAB BLOOD ORDERABLES Final Resul t [facility] Department [place] [address] * eGFR (10/03/2024 5:42 AM B[facility]BACK RIDER) eGFR >90 >=60 mL/min/1. 73 m2 Comment: [...] last reviewed 2021. Blood 10/03/2024 5:42 AM [facility]BACK RIDER 10/03/2024 6:39 AM [employer] us Yoseph Golden MD LAB BLOOD ORDERABLES Final Resul t [facility] Department [place] [address] * (ABNORMAL) Differential, auto (10/03/2024 5:42 AM B[employer]BACK RIDER) Neutrophil abs 7.7(H) 1.5 - 6.5 K/cumm Imm gran abs 0.6(H) 0.0 - 0.1 K/cumm [facility] Lymphocyte abs 2.3 0.8 - 3.3 K/cumm [facility] Monocyte abs 1.1(H) 0.2 - 0.8 K/cumm [facility] Eosinophil abs 0.4 0.0 - 0.5 K/cumm [facility] Basophil abs 0.0 0.0 - 0.1 K/cumm [facility] Neutrophil pct 63.6 % [facility] Comment: Interpretive Data Percent cell count reference ranges are not reported, since discordance with absolute values may lead to misinterpretation of CBC data. Current Interpretive Data was last revised on 2018. Imm gran pct 5.2 % [facility] Comment: Interpretive Data Percent cell count reference ranges are not reported, since discordance with absolute values may lead to misinterpretation of CBC data. Current Interpretive Data was last revised on 2018. Lymphocyte pct 19.2 % [facility] Comment: Interpretive Data Percent cell count reference ranges are not reported, since discordance with absolute values may lead to misinterpretation of CBC data. Current Interpretive Data was last revised on 2018. Monocyte pct 8.8 % [facility] Comment: Interpretive Data Percent cell count reference ranges are not reported, since discordance with absolute values may lead to misinterpretation of CBC data. Current Interpretive Data was last revised on 2018. Eosinophil pct 3.0 % [facility] Comment: Interpretive Data Percent cell count reference ranges are not reported, since discordance with absolute values may lead to misinterpretation of CBC data. Current Interpretive Data was last revised on 2018. Basophil pct 0.2 % [facility] Comment: Interpretive Data Percent cell count reference ranges are not reported, since discordance with absolute values may lead to misinterpretation of CBC data. Current Interpretive Data was last revised on 2018. Blood 10/03/2024 5:42 AM [employer]ER 10/03/2024 6:18 AM [employer] us Yoseph Golden MD LAB BLOOD ORDERABLES Final Resul t [facility] Department [place] [address] * (ABNORMAL) CBC with auto differential (10/03/2024 5:42 AM [employer]ER) WBC 12.1(H) 3.8 - 9.9 K/cumm Hgb 7.8(L) 13.0 - 17.5 g/dL [facility] Hct 25.7(L) 38.9 - 50.3 % [facility] Plt 439(H) 150 - 400 K/cumm [facility] MPV 10.5 9.1 - 12.3 fL [facility] RBC 3.45(L) 4.30 - 5.80 M/cumm [facility] MCV 74.5(L) 81.3 - 96.4 fL [facility] MCH 22.6(L) 27.1 - 33.3 pg [facility] MCHC 30.4(L) 32.3 - 35.7 g/dL [facility] RDW CV 18.4(H) 11.1 - 14.9 % [facility] RDW SD 47.9 35.7 - 48.1 fL [facility] NRBC abs 0.00 0.00 - 0.01 K/cumm [facility] Blood 10/03/2024 5:42 AM [employer]ER 10/03/2024 6:18 AM [employer]ER Yoseph Golden MD LAB BLOOD ORDERABLES Final Resul t Performing Organization Address City/[facility] [address]/[facility] Co de Phone Number [facility] [place] [address] * (ABNORMAL) Prealbumin (10/03/2024 5:42 AM [employer]) Prealbumin 14.0(L) 20.0 - 40.0 mg/dL Blood 10/03/2024 5:42 AM [employer] 10/03/2024 6:18 AM [employer]ER Yoseph Golden MD LAB BLOOD ORDERABLES Final Resul t Performing Organization Address [facility] [address]/[facility] de Phone Number [facility] Department [place] [address] * Phosphorus (10/03/2024 5:42 AM [employer] R[employer]ER) Phosphorus, pl 3.2 2.3 - 4.5 mg/dL Blood 10/03/2024 5:42 AM [employer] 10/03/2024 6:29 AM [employer]ER Kathia Ruiz MD LAB BLOOD ORDERABLES Jessica l Result Performing Organization Address [facility] [address]/[facility] Co de Phone Number [facility] [place] [address] * Magnesium (10/03/2024 5:42 AM [employer]ER) Magnesium 2.1 1.4 - 2.5 mg/dL Blood 10/03/2024 5:42 AM [employer] 10/03/2024 6:29 AM [employer]ER Kathia Ruiz MD LAB BLOOD ORDERABLES Jessica cruz Result [facility] Department [place] [address] * (ABNORMAL) Comprehensive metabolic panel (10/03/2024 5:42 AM [employer]ER) Pathologist [facility] Sodium 138 135 - 145 mmol/L Potassium, pl 4.0 3.3 - 4.9 mmol/L [facility] Chloride 109 97 - 110 mmol/L [facility] CO2 23 22 - 32 mmol/L [facility] Anion gap 6 2 - 15 mmol/L [facility] BUN 13 6 - 25 mg/dL [facility] Creatinine 0.58(L) 0.80 - 1.30 mg/dL [facility] Glucose 87 70 - 199 mg/dL [facility] Comment: Interpretive Data Fasting glucose >/= [...] 2022. Calcium 8.2(L) 8.5 - 10.3 mg/dL [facility] Bilirubin, total <0.2 0.1 - 1.2 mg/dL [facility] Protein, pl 6.8 6.5 - 8.5 g/dL [facility] Albumin 2.6(L) 3.5 - 5.0 g/dL [facility] Alk phos 97 40 - 130 Units/L [facility] ALT 19 7 - 55 Units/L [facility] AST 18 10 - 50 Units/L [facility] Blood 10/03/2024 5:42 AM [employer]ER 10/03/2024 6:29 AM [employer] us Yoseph Golden MD LAB BLOOD ORDERABLES Final Resul t Performing Organization Address [facility] [address]/[facility] de Phone Number [facility] Department [place] [address] * eGFR (10/02/2024 2:24 AM [employer]ER) eGFR >90 >=60 mL/min/1. 73 m2 Comment: [...] last reviewed 2021. Blood 10/02/2024 2:24 AM [employer]ER 10/02/2024 3:49 AM [employer] us Kathia Ruiz MD LAB BLOOD ORDERABLES Jessica l Result Performing Organization Address [facility]/State/ZIP Co de Phone Number [facility] Department [place] [address] * (ABNORMAL) Differential, auto (10/02/2024 2:24 AM [employer]ER) Neutrophil abs 6.4 1.5 - 6.5 K/cumm Imm gran abs 0.5(H) 0.0 - 0.1 K/cumm [facility] Lymphocyte abs 2.3 0.8 - 3.3 K/cumm [facility] Monocyte abs 0.6 0.2 - 0.8 K/cumm [facility] Eosinophil abs 0.2 0.0 - 0.5 K/cumm [facility] Basophil abs 0.0 0.0 - 0.1 K/cumm [facility] Neutrophil pct 63.5 % [facility] Comment: Interpretive Data Percent cell count reference ranges are not reported, since discordance with absolute values may lead to misinterpretation of CBC data. Current Interpretive Data was last revised on 2018. Imm gran pct 4.7 % [facility] Comment: Interpretive Data Percent cell count reference ranges are not reported, since discordance with absolute values may lead to misinterpretation of CBC data. Current Interpretive Data was last revised on 2018. Lymphocyte pct 22.9 % [facility] Comment: Interpretive Data Percent cell count reference ranges are not reported, since discordance with absolute values may lead to misinterpretation of CBC data. Current Interpretive Data was last revised on 2018. Monocyte pct 6.2 % [facility] Comment: Interpretive Data Percent cell count reference ranges are not reported, since discordance with absolute values may lead to misinterpretation of CBC data. Current Interpretive Data was last revised on 2018. Eosinophil pct 2.4 % [facility] Comment: Interpretive Data Percent cell count reference ranges are not reported, since discordance with absolute values may lead to misinterpretation of CBC data. Current Interpretive Data was last revised on 2018. Basophil pct 0.3 % [facility] Comment: Interpretive Data Percent cell count reference ranges are not reported, since discordance with absolute values may lead to misinterpretation of CBC data. Current Interpretive Data was last revised on 2018. Blood 10/02/2024 2:24 AM [employer]ER 10/02/2024 3:49 AM [employer]ER Kathia Ruiz MD LAB BLOOD ORDERABLES Jessica l Result Performing Organization Address [facility] [address] [facility] Co de Phone Number [facility] [place] [address] * (ABNORMAL) CBC with auto differential (10/02/2024 2:24 AM [employer] RIDER) [facility] WBC 10.1(H) 3.8 - 9.9 K/cumm Hgb 7.7(L) 13.0 - 17.5 g/dL [facility] Hct 26.3(L) 38.9 - 50.3 % [facility] Plt 419(H) 150 - 400 K/cumm [facility] MPV 10.6 9.1 - 12.3 fL [facility] RBC 3.58(L) 4.30 - 5.80 M/cumm [facility] MCV 73.5(L) 81.3 - 96.4 fL [facility] MCH 21.5(L) 27.1 - 33.3 pg [facility] MCHC 29.3(L) 32.3 - 35.7 g/dL [facility] RDW CV 18.0(H) 11.1 - 14.9 % [facility] RDW SD 47.5 35.7 - 48.1 fL [facility] NRBC abs 0.00 0.00 - 0.01 K/cumm [facility] Blood 10/02/2024 2:24 AM [employer]ER 10/02/2024 3:49 AM [employer]ER Kathia Ruiz MD LAB BLOOD ORDERABLES Jessica cruz Result Performing Organization Address [facility] [address] [facility] Co de Phone Number [facility] [place] [address] * Magnesium (10/02/2024 2:24 AM B[employer]IDER) Pathologist [facility] Magnesium 1.9 1.4 - 2.5 mg/dL Blood 10/02/2024 2:24 AM [employer]ER 10/02/2024 3:49 AM [employer]ER Kathia Ruiz MD LAB BLOOD ORDERABLES Jessica l Result [facility] Department [place] [address] * (ABNORMAL) Basic metabolic panel (10/02/2024 2:24 AM B[employer] RIDER) Pathologist [facility] Sodium 134(L) 135 - 145 mmol/L Potassium, pl 3.8 3.3 - 4.9 mmol/L [facility] Chloride 107 97 - 110 mmol/L [facility] CO2 23 22 - 32 mmol/L [facility] Anion gap 4 2 - 15 mmol/L [facility] BUN 9 6 - 25 mg/dL [facility] Creatinine 0.65(L) 0.80 - 1.30 mg/dL [facility] Glucose 121 70 - 199 mg/dL [facility] Comment: Interpretive Data Fasting glucose >/= [...] 2022. Calcium 7.8(L) 8.5 - 10.3 mg/dL [facility] Blood 10/02/2024 2:24 AM [employer]ER 10/02/2024 3:49 AM [employer]ER Kathia Ruiz MD LAB BLOOD ORDERABLES Jessica l Result [facility] Department [place] [address] * eGFR (10/01/2024 2:22 AM B[employer]BACK RIDER) Pathologist [facility] eGFR >90 >=60 [...] last reviewed 2021. Blood 10/01/2024 2:22 AM [employer]IDER 10/01/2024 2:49 AM [employer]IDER us Kathia Ruiz MD LAB BLOOD ORDERABLES Jessica cruz Result [facility] Department [place] [address] * (ABNORMAL) Differential, auto (10/01/2024 2:22 AM B[employer]BACK RIDER) [facility] Neutrophil abs 7.5(H) 1.5 - 6.5 K/cumm Imm gran abs 0.5(H) 0.0 - 0.1 K/cumm [facility] Lymphocyte abs 2.1 0.8 - 3.3 K/cumm [facility] Monocyte abs 0.8 0.2 - 0.8 K/cumm [facility] Eosinophil abs 0.2 0.0 - 0.5 K/cumm [facility] Basophil abs 0.0 0.0 - 0.1 K/cumm [facility] Neutrophil pct 67.6 % [facility] Comment: Interpretive Data Percent cell count reference ranges are not reported, since discordance with absolute values may lead to misinterpretation of CBC data. Current Interpretive Data was last revised on 2018. Imm gran pct 4.1 % [facility] Comment: Interpretive Data Percent cell count reference ranges are not reported, since discordance with absolute values may lead to misinterpretation of CBC data. Current Interpretive Data was last revised on 2018. Lymphocyte pct 19.2 % [facility] Comment: Interpretive Data Percent cell count reference ranges are not reported, since discordance with absolute values may lead to misinterpretation of CBC data. Current Interpretive Data was last revised on 2018. Monocyte pct 7.0 % [facility] Comment: Interpretive Data Percent cell count reference ranges are not reported, since discordance with absolute values may lead to misinterpretation of CBC data. Current Interpretive Data was last revised on 2018. Eosinophil pct 1.8 % [facility] Comment: Interpretive Data Percent cell count reference ranges are not reported, since discordance with absolute values may lead to misinterpretation of CBC data. Current Interpretive Data was last revised on 2018. Basophil pct 0.3 % [facility] Comment: Interpretive Data Percent cell count reference ranges are not reported, since discordance with absolute values may lead to misinterpretation of CBC data. Current Interpretive Data was last revised on 2018. Blood 10/01/2024 2:22 AM [employer]ER 10/01/2024 2:49 AM [employer]ER Kathia Ruiz MD LAB BLOOD ORDERABLES Jessica cruz Result [facility] Department [place] [address] * (ABNORMAL) CBC with auto differential (10/01/2024 2:22 AM B[employer]BACK RIDER) [facility] WBC 11.1(H) 3.8 - 9.9 K/cumm Hgb 8.0(L) 13.0 - 17.5 g/dL [facility] Hct 26.7(L) 38.9 - 50.3 % [facility] Plt 434(H) 150 - 400 K/cumm [facility] MPV 10.7 9.1 - 12.3 fL [facility] RBC 3.65(L) 4.30 - 5.80 M/cumm [facility] MCV 73.2(L) 81.3 - 96.4 fL [facility] MCH 21.9(L) 27.1 - 33.3 pg [facility] MCHC 30.0(L) 32.3 - 35.7 g/dL [facility] RDW CV 17.4(H) 11.1 - 14.9 % [facility] RDW SD 46.3 35.7 - 48.1 fL [facility] NRBC abs 0.00 0.00 - 0.01 K/cumm [facility] Blood 10/01/2024 2:22 AM [employer]IDER 10/01/2024 2:49 AM [employer]ER Kathia Ruiz MD LAB BLOOD ORDERABLES Jessica l Result [facility] Department [place] [address] * (ABNORMAL) aPTT (10/01/2024 2:22 AM B[employer]BACK RIDER) [facility] aPTT 39(H) 28 - 38 sec Comment: Interpretive Data Heparin therapeutic range: 66.0 - 100.0 seconds. Range based on correlation with therapeutic heparin activity range of 0.3 - 0.7 Units/mL. Current interpretive data was last revised on 2023. Blood 10/01/2024 2:22 AM [employer]IDER 10/01/2024 2:54 AM [employer]IDER Kathia Ruiz MD LAB BLOOD ORDERABLES Jessica l Result Performing Organization Address [facility] [address] [facility]/ZIP Co de Phone Number [facility] Department [place] [address] * (ABNORMAL) Protime-INR (10/01/2024 2:22 AM B[employer]BACK RIDER) PT 15.9(H) 9.7 - 13.0 sec INR 1.46(H) 0.90 - 1.20 [facility] Comment: Interpretive data Oral anticoagulant therapeutic ranges: Venous thromboembolism prophylaxis or treatment: 2.0-3.0 CARDIOLOGY Standard range: 2.0-3.0 High-intensity range: 2.5-3.5 Refer to indication-specific guidelines for appropriate target ranges for prosthetic heart valve replacement. Current interpretive data was last revised on 2019. Blood 10/01/2024 2:22 AM [employer]IDER 10/01/2024 2:54 AM [employer] RIDER Kathia Ruiz MD LAB BLOOD ORDERABLES Jessica l Result Performing Organization Address [facility] [address]/[facility] Co de Phone Number [facility] [place] [address] * (ABNORMAL) Basic metabolic panel (10/01/2024 2:22 AM B[employer]BACK RIDER) Sodium 136 135 - 145 mmol/L Potassium, pl 3.4 3.3 - 4.9 mmol/L [facility] Chloride 105 97 - 110 mmol/L [facility] CO2 23 22 - 32 mmol/L [facility] Anion gap 8 2 - 15 mmol/L [facility] BUN 8 6 - 25 mg/dL [facility] Creatinine 0.70(L) 0.80 - 1.30 mg/dL [facility] Glucose 105 70 - 199 mg/dL [facility] Comment: Interpretive Data Fasting glucose >/= [...] 2022. Calcium 8.0(L) 8.5 - 10.3 mg/dL [facility] Blood 10/01/2024 2:22 AM [employer] RIDER 10/01/2024 2:49 AM [employer] RIDER us Kathia Ruiz MD LAB BLOOD ORDERABLES Jessica cruz Result [facility] Department [place] [address] * eGFR (09/29/2024 4:17 PM B[employer]BACK RIDER) eGFR >90 >=60 mL/min/1. 73 m2 Comment: [...] last reviewed 2021. Blood 09/29/2024 4:17 PM [employer]BACK RIDER 09/29/2024 4:57 PM [employer] RIDER us Kathia Ruiz MD LAB BLOOD ORDERABLES Jessica cruz Result [facility] Department [place] [address] * (ABNORMAL) Differential, auto (09/29/2024 4:17 PM B[employer] RIDER) Neutrophil abs 8.2(H) 1.5 - 6.5 K/cumm Imm gran abs 0.1 0.0 - 0.1 K/cumm [facility] Lymphocyte abs 0.8 0.8 - 3.3 K/cumm [facility] Monocyte abs 0.3 0.2 - 0.8 K/cumm [facility] Eosinophil abs 0.1 0.0 - 0.5 K/cumm [facility] Basophil abs 0.0 0.0 - 0.1 K/cumm [facility] Neutrophil pct 86.8 % [facility] Comment: Interpretive Data Percent cell count reference ranges are not reported, since discordance with absolute values may lead to misinterpretation of CBC data. Current Interpretive Data was last revised on 2018. Imm gran pct 1.2 % [facility] Comment: Interpretive Data Percent cell count reference ranges are not reported, since discordance with absolute values may lead to misinterpretation of CBC data. Current Interpretive Data was last revised on 2018. Lymphocyte pct 8.0 % [facility] Comment: Interpretive Data Percent cell count reference ranges are not reported, since discordance with absolute values may lead to misinterpretation of CBC data. Current Interpretive Data was last revised on 2018. Monocyte pct 2.6 % [facility] Comment: Interpretive Data Percent cell count reference ranges are not reported, since discordance with absolute values may lead to misinterpretation of CBC data. Current Interpretive Data was last revised on 2018. Eosinophil pct 1.3 % [facility] Comment: Interpretive Data Percent cell count reference ranges are not reported, since discordance with absolute values may lead to misinterpretation of CBC data. Current Interpretive Data was last revised on 2018. Basophil pct 0.1 % [facility] Comment: Interpretive Data Percent cell count reference ranges are not reported, since discordance with absolute values may lead to misinterpretation of CBC data. Current Interpretive Data was last revised on 2018. Blood 09/29/2024 4:17 PM [employer]BACK RIDER 09/29/2024 4:57 PM [employer] RIDER us Kathia Ruiz MD LAB BLOOD ORDERABLES Jessica cruz Result [facility] Department [place] [address] * (ABNORMAL) CBC with auto differential (09/29/2024 4:17 PM B[employer]BACK RIDER) WBC 9.5 3.8 - 9.9 K/cumm Hgb 9.5(L) 13.0 - 17.5 g/dL [facility] Hct 31.3(L) 38.9 - 50.3 % [facility] Plt 357 150 - 400 K/cumm [facility] MPV 10.7 9.1 - 12.3 fL [facility] RBC 4.30 4.30 - 5.80 M/cumm [facility] MCV 72.8(L) 81.3 - 96.4 fL [facility] MCH 22.1(L) 27.1 - 33.3 pg [facility] MCHC 30.4(L) 32.3 - 35.7 g/dL [facility] RDW CV 17.3(H) 11.1 - 14.9 % [facility] RDW SD 45.9 35.7 - 48.1 fL [facility] NRBC abs 0.00 0.00 - 0.01 K/cumm [facility] Blood 09/29/2024 4:17 PM [employer]BACK RIDER 09/29/2024 4:57 PM [employer] RIDER Kathia Ruiz MD LAB BLOOD ORDERABLES Jessica l Result Performing Organization Address [facility] [address]/[facility] de Phone Number [facility] [place] [address] * (ABNORMAL) aPTT (09/29/2024 4:17 PM BAREBACK RIDER) aPTT 43(H) 28 - 38 sec Comment: Interpretive Data Heparin therapeutic range: 66.0 - 100.0 seconds. Range based on correlation with therapeutic heparin activity range of 0.3 - 0.7 Units/mL. Current interpretive data was last revised on 2023. Blood 09/29/2024 4:17 PM [employer]BACK RIDER 09/29/2024 4:53 PM [employer]BACK RIDER Kathia Ruiz MD LAB BLOOD ORDERABLES Jessica l Result Performing Organization Address [facility] de Phone Number [facility] [place] [address] * (ABNORMAL) Protime-INR (09/29/2024 4:17 PM B[employer]BACK RIDER) PT 16.1(H) 9.7 - 13.0 sec INR 1.48(H) 0.90 - 1.20 [facility] Comment: Interpretive data Oral anticoagulant therapeutic ranges: Venous thromboembolism prophylaxis or treatment: 2.0-3.0 CARDIOLOGY Standard range: 2.0-3.0 High-intensity range: 2.5-3.5 Refer to indication-specific guidelines for appropriate target ranges for prosthetic heart valve replacement. Current interpretive data was last revised on 2019. Blood 09/29/2024 4:17 PM [employer]BACK RIDER 09/29/2024 4:53 PM [employer]BACK RIDER Kathia Ruiz MD LAB BLOOD ORDERABLES Jessica l Result Performing Organization Address [facility] [address]/[facility] de Phone Number [facility] [place] [address] * (ABNORMAL) Reticulocyte Count (09/29/2024 4:17 PM BAREBACK RIDER) Pathologist [facility] Retics, absolute 0.055 0.020 - 0.087 M/cumm Retics 1.6 0.4 - 2.9 % [facility] Reticulocyte Hgb 20.9(L) 30.5 - 38.0 pg [facility] Blood 09/29/2024 4:17 PM [employer]BACK RIDER 09/29/2024 4:57 PM [employer]BACK RIDER Kathia Ruiz MD LAB BLOOD ORDERABLES Jessica l Result Performing Organization Address [facility] [address]/[facility] de Phone Number [facility] [place] [address] * (ABNORMAL) Folate (09/29/2024 4:17 PM BAREBACK RIDER) Pathologist [facility] Folic acid 3.9(L) >=5.0 ng/mL Blood 09/29/2024 4:17 PM [employer]BACK RIDER 09/29/2024 4:57 PM [employer] RIDER Kathia Ruiz MD LAB BLOOD ORDERABLES Jessica l Result Performing Organization Address [facility] [address]/[facility] Co de Phone Number [facility] [place] [address] * (ABNORMAL) Ferritin (09/29/2024 4:17 PM BAREBACK RIDER) Pathologist [facility] Ferritin 649(H) 30 - 400 ng/mL Blood 09/29/2024 4:17 PM [employer]BACK RIDER 09/29/2024 4:57 PM [employer]BACK RIDER Kathia Ruiz MD LAB BLOOD ORDERABLES Jessica l Result Performing Organization Address City/[facility] [address]/ZIP Co de Phone Number [facility] [place] [address] * Vitamin B12 (09/29/2024 4:17 PM BAREBACK RIDER) [facility] Vitamin B12 656 230 - 1,250 pg/mL Blood 09/29/2024 4:17 PM [employer]BACK RIDER 09/29/2024 4:57 PM [employer]BACK RIDER Kathia Ruiz MD LAB BLOOD ORDERABLES Jessica l Result Performing Organization Address [facility] [address] [facility] de Phone Number [facility] Department [place] [address] * (ABNORMAL) Basic metabolic panel (09/29/2024 4:17 PM BAREBACK RIDER) [facility] Sodium 138 135 - 145 mmol/L Potassium, pl 3.5 3.3 - 4.9 mmol/L [facility] Chloride 105 97 - 110 mmol/L [facility] CO2 20(L) 22 - 32 mmol/L [facility] Anion gap 13 2 - 15 mmol/L [facility] BUN 10 6 - 25 mg/dL [facility] Creatinine 0.67(L) 0.80 - 1.30 mg/dL [facility] Glucose 104 70 - 199 mg/dL [facility] Comment: Interpretive Data Fasting glucose >/= [...] 2022. Calcium 8.1(L) 8.5 - 10.3 mg/dL [facility] Blood 09/29/2024 4:17 PM BAREBACK RIDER 09/29/2024 4:57 PM BAREBACK RIDER Kathia Ruiz MD LAB BLOOD ORDERABLES Jessica l Result Performing Organization Address [facility] [address]/[facility] Co de Phone Number [facility] Department [place] [address] * Tissue aerobic and anaerobic culture and gram stain Tissue Sacral (09/29/2024 12:37 PM BAREBACK RIDER) Direct Specimen Exam Stain: No polymorphonuclear leukocytes seen. No organisms seen. Report Final Report: No growth [facility] Tissue (Sacral) 09/29/2024 1 2:37 PM BAREBACK RIDER 09/29/2024 2:14 PM BAREBACK RIDER Narrative [facility] 10/02/2024 10:33 AM BAREBACK RIDER Left sacrum Specimen received in anaerobic transport media. Testing performed by [facility]biology Laboratory ([phone]) Specimens submitted from normally sterile body sites [...] GENERAL ORDERABLES Final Result Performing Organization Address [facility] [address]/[facility] Co de Phone Number [facility] Department [place] [address] * Mycology (fungal) culture Tissue Sacral (09/29/2024 12:37 PM BAREBACK RIDER) Report Final Report: No growth of fungus Tissue (Sacral) 09/29/2024 1 2:37 PM BAREBACK RIDER 09/29/2024 2:15 PM BAREBACK RIDER Narrative [facility] 10/27/2024 7:59 AM BAREBACK RIDER Left sacrum Specimen received in anaerobic transport media. Testing performed by [facility]biology [facility] ([phone]). [facility] LAB MICROBIOLOGY - GENERAL ORDERABLES Final Result Performing Organization Address [facility] [address]/[facility] Co de Phone Number [facility] [place] [address] * (ABNORMAL) Tissue aerobic and anaerobic culture and gram stain Tissue Sacral (09/29/2024 12:26 PM BAREBACK RIDER) Direct Specimen Exam Stain: No polymorphonuclear leukocytes seen. No organisms seen. Report Final Report: Few Mixed aerobic and anaerobic microorganisms Includes the following: Rare Amanda albicans (.) [facility] Organism MIXED AEROBIC AND ANAEROBIC MICROORGANISMS [facility] Organism AMANDA ALBICANS [facility] Tissue (Sacral) 09/29/2024 1 2:26 PM BAREBACK RIDER 09/29/2024 2:01 PM BAREBACK RIDER Narrative [facility] - 10/02/2024 3:00 PM BAREBACK RIDER Right sacrum Specimen received in anaerobic transport media. Testing performed by [facility] ([phone]) Specimens submitted from normally sterile body sites [...] interpretive data was last revised on 2020. [facility] LAB MICROBIOLOGY - GENERAL ORDERABLES Final Result Performing Organization Address [facility] [address]/[facility] Co de Phone Number [facility] Department [place] [address] * (ABNORMAL) Mycology (fungal) culture Tissue Sacral (09/29/2024 12:26 PM BAREBACK RIDER) Report Final Report: Amanda albicans (.) Organism AMANDA ALBICANS [facility] Tissue (Sacral) 09/29/2024 1 2:26 PM BAREBACK RIDER 09/29/2024 2:01 PM BAREBACK RIDER Narrative [facility] - 10/27/2024 7:56 AM BAREBACK RIDER Right sacrum Specimen received in anaerobic transport media. Testing performed by [facility] ([phone]). Teri Hendrix DO LAB MICROBIOLOGY - GENERAL ORDERABLES Final Result [facility] Department [place] [address] * [place] AN ELECTIVE ENDOTRACHEAL AIRWAY, [place] AN PROCEDURE PLACEHOLDER (09/29/2024 11:36 AM BAREBACK RIDER) Narrative Pallavi Dennis CRNA - 09/29/2024 11:36 AM BAREBACK RIDER Pallavi Dennis CRNA ? 09/29/2024 11:38 AM Airway Patient location: OR Urgency: elective Indications for airway management: anesthesia and airway protection Difficult airway: no Staff: Supervising provider: Natasha Murphy MD Placed by: FINISH MILL OPERATOR: Pallavi Dennis CRNA Emergent airway documentation: Risks [...] Final Result * eGFR (09/29/2024 5:48 AM BAREBACK RIDER) eGFR >90 >=60 mL/min/1. 73 m2 Comment: [...] last reviewed 2021. Blood 09/29/2024 5:48 AM BAREBACK RIDER 09/29/2024 6:22 AM BAREBACK RIDER us Kathia Ruiz MD LAB BLOOD ORDERABLES Jessica cruz Result [facility] Department [place] [address] * (ABNORMAL) Differential, auto (09/29/2024 5:48 AM BAREBACK RIDER) Neutrophil abs 9.0(H) 1.5 - 6.5 K/cumm Imm gran abs 0.1 0.0 - 0.1 K/cumm [facility] Lymphocyte abs 1.1 0.8 - 3.3 K/cumm [facility] Monocyte abs 0.6 0.2 - 0.8 K/cumm [facility] Eosinophil abs 0.4 0.0 - 0.5 K/cumm [facility] Basophil abs 0.0 0.0 - 0.1 K/cumm [facility] Neutrophil pct 80.1 % [facility] Comment: Interpretive Data Percent cell count reference ranges are not reported, since discordance with absolute values may lead to misinterpretation of CBC data. Current Interpretive Data was last revised on 2018. Imm gran pct 1.1 % [facility] Comment: Interpretive Data Percent cell count reference ranges are not reported, since discordance with absolute values may lead to misinterpretation of CBC data. Current Interpretive Data was last revised on 2018. Lymphocyte pct 10.1 % [facility] Comment: Interpretive Data Percent cell count reference ranges are not reported, since discordance with absolute values may lead to misinterpretation of CBC data. Current Interpretive Data was last revised on 2018. Monocyte pct 5.1 % [facility] Comment: Interpretive Data Percent cell count reference ranges are not reported, since discordance with absolute values may lead to misinterpretation of CBC data. Current Interpretive Data was last revised on 2018. Eosinophil pct 3.4 % [facility] Comment: Interpretive Data Percent cell count reference ranges are not reported, since discordance with absolute values may lead to misinterpretation of CBC data. Current Interpretive Data was last revised on 2018. Basophil pct 0.2 % [facility] Comment: Interpretive Data Percent cell count reference ranges are not reported, since discordance with absolute values may lead to misinterpretation of CBC data. Current Interpretive Data was last revised on 2018. Blood 09/29/2024 5:48 AM BAREBACK RIDER 09/29/2024 6:23 AM BAREBACK RIDER us Kathia Ruiz MD LAB BLOOD ORDERABLES Jessica cruz Result [facility] Department [place] [address] * (ABNORMAL) CBC with auto differential (09/29/2024 5:48 AM BAREBACK RIDER) Pathologist [facility] WBC 11.2(H) 3.8 - 9.9 K/cumm Hgb 8.2(L) 13.0 - 17.5 g/dL [facility] Hct 27.1(L) 38.9 - 50.3 % [facility] Plt 391 150 - 400 K/cumm [facility] MPV 10.8 9.1 - 12.3 fL [facility] RBC 3.70(L) 4.30 - 5.80 M/cumm [facility] MCV 73.2(L) 81.3 - 96.4 fL [facility] MCH 22.2(L) 27.1 - 33.3 pg [facility] MCHC 30.3(L) 32.3 - 35.7 g/dL [facility] RDW CV 17.2(H) 11.1 - 14.9 % [facility] RDW SD 45.8 35.7 - 48.1 fL [facility] NRBC abs 0.00 0.00 - 0.01 K/cumm [facility] Blood 09/29/2024 5:48 AM BAREBACK RIDER 09/29/2024 6:23 AM BAREBACK RIDER Kathia Ruiz MD LAB BLOOD ORDERABLES Jessica l Result [facility] Department [place] [address] * aPTT (09/29/2024 5:48 AM BAREBACK RIDER) Pathologist [facility] aPTT 33 28 - 38 sec Comment: Interpretive Data Heparin therapeutic range: 66.0 - 100.0 seconds. Range based on correlation with therapeutic heparin activity range of 0.3 - 0.7 Units/mL. Current interpretive data was last revised on 2023. Blood 09/29/2024 5:48 AM BAREBACK RIDER 09/29/2024 6:09 AM BAREBACK RIDER Kathia Ruiz MD LAB BLOOD ORDERABLES Jessica l Result Performing Organization Address [facility] [address]/[facility] Co de Phone Number [facility] Department [place] [address] * (ABNORMAL) Protime-INR (09/29/2024 5:48 AM BAREBACK RIDER) Pathologist [facility] PT 16.3(H) 9.7 - 13.0 sec INR 1.50(H) 0.90 - 1.20 [facility] Comment: Interpretive data Oral anticoagulant therapeutic ranges: Venous thromboembolism prophylaxis or treatment: 2.0-3.0 CARDIOLOGY Standard range: 2.0-3.0 High-intensity range: 2.5-3.5 Refer to indication-specific guidelines for appropriate target ranges for prosthetic heart valve replacement. Current interpretive data was last revised on 2019. Blood 09/29/2024 5:48 AM BAREBACK RIDER 09/29/2024 6:09 AM BAREBACK RIDER Kathia Ruiz MD LAB BLOOD ORDERABLES Jessica l Result Performing Organization Address [facility] [address]/[facility] Co de Phone Number [facility] Department [place] [address] * (ABNORMAL) Basic metabolic panel (09/29/2024 5:48 AM BAREBACK RIDER) Pathologist [facility] Sodium 136 135 - 145 mmol/L Potassium, pl 3.5 3.3 - 4.9 mmol/L [facility] Chloride 102 97 - 110 mmol/L [facility] CO2 23 22 - 32 mmol/L [facility] Anion gap 11 2 - 15 mmol/L [facility] BUN 9 6 - 25 mg/dL [facility] Creatinine 0.71(L) 0.80 - 1.30 mg/dL [facility] Glucose 90 70 - 199 mg/dL [facility] Comment: Interpretive Data Fasting glucose >/= [...] 2022. Calcium 8.2(L) 8.5 - 10.3 mg/dL [facility] Blood 09/29/2024 5:48 AM BAREBACK RIDER 09/29/2024 6:22 AM BAREBACK RIDER us Kathia Ruiz MD LAB BLOOD ORDERABLES Jessica cruz Result [facility] Department [place] [address] * (ABNORMAL) CBC without differential (09/28/2024 9:26 PM BAREBACK RIDER) [facility] WBC 14.9(H) 3.8 - 9.9 K/cumm Hgb 8.3(L) 13.0 - 17.5 g/dL [facility] Hct 27.5(L) 38.9 - 50.3 % [facility] Plt 388 150 - 400 K/cumm [facility] MPV 11.1 9.1 - 12.3 fL [facility] RBC 3.75(L) 4.30 - 5.80 M/cumm [facility] MCV 73.3(L) 81.3 - 96.4 fL [facility] MCH 22.1(L) 27.1 - 33.3 pg [facility] MCHC 30.2(L) 32.3 - 35.7 g/dL [facility] RDW CV 17.2(H) 11.1 - 14.9 % [facility] RDW SD 45.5 35.7 - 48.1 fL [facility] NRBC abs 0.00 0.00 - 0.01 K/cumm [facility] Blood 09/28/2024 9:26 PM BAREBACK RIDER 09/28/2024 10:09 PM BAREBACK RIDER Kathia Ruiz MD LAB BLOOD ORDERABLES Jessica l Result Performing Organization Address City/[facility] [address]/[facility] Co de Phone Number [facility] Department [place] [address] * Potassium, whole blood (09/28/2024 1:54 PM BAREBACK RIDER) Pathologist [facility] Potassium, bld 3.4 3.3 - 4.9 mmol/L Blood 09/28/2024 1:54 PM BAREBACK RIDER 09/28/2024 2:12 PM BAREBACK RIDER Kathia Ruiz MD LAB BLOOD ORDERABLES Jessica l Result Performing Organization Address [facility] [address]/[facility] de Phone Number [facility] Department [place] [address] * eGFR (09/28/2024 1:54 PM BAREBACK RIDER) Pathologist [facility] eGFR >90 >=60 [...] last reviewed 2021. Blood 09/28/2024 1:54 PM BAREBACK RIDER 09/28/2024 2:19 PM BAREBACK RIDER us Kathia Ruiz MD LAB BLOOD ORDERABLES Jessica cruz Result [facility] Department [place] [address] * (ABNORMAL) Differential, auto (09/28/2024 1:54 PM BAREBACK RIDER) Neutrophil abs 13.6(H) 1.5 - 6.5 K/cumm Imm gran abs 0.2(H) 0.0 - 0.1 K/cumm [facility] Lymphocyte abs 0.8 0.8 - 3.3 K/cumm [facility] Monocyte abs 0.7 0.2 - 0.8 K/cumm [facility] Eosinophil abs 0.3 0.0 - 0.5 K/cumm [facility] Basophil abs 0.0 0.0 - 0.1 K/cumm [facility] Neutrophil pct 87.8 % [facility] Comment: Interpretive Data Percent cell count reference ranges are not reported, since discordance with absolute values may lead to misinterpretation of CBC data. Current Interpretive Data was last revised on 2018. Imm gran pct 1.0 % [facility] Comment: Interpretive Data Percent cell count reference ranges are not reported, since discordance with absolute values may lead to misinterpretation of CBC data. Current Interpretive Data was last revised on 2018. Lymphocyte pct 5.1 % [facility] Comment: Interpretive Data Percent cell count reference ranges are not reported, since discordance with absolute values may lead to misinterpretation of CBC data. Current Interpretive Data was last revised on 2018. Monocyte pct 4.3 % [facility] Comment: Interpretive Data Percent cell count reference ranges are not reported, since discordance with absolute values may lead to misinterpretation of CBC data. Current Interpretive Data was last revised on 2018. Eosinophil pct 1.6 % [facility] Comment: Interpretive Data Percent cell count reference ranges are not reported, since discordance with absolute values may lead to misinterpretation of CBC data. Current Interpretive Data was last revised on 2018. Basophil pct 0.2 % [facility] Comment: Interpretive Data Percent cell count reference ranges are not reported, since discordance with absolute values may lead to misinterpretation of CBC data. Current Interpretive Data was last revised on 2018. Blood 09/28/2024 1:54 PM BAREBACK RIDER 09/28/2024 2:19 PM BAREBACK RIDER Kathia Ruiz MD LAB BLOOD ORDERABLES Jessica l Result Performing Organization Address City/[facility] [address]/ZIP Co de Phone Number [facility] [place] [address] * (ABNORMAL) Iron profile w/ IBC (09/28/2024 1:54 PM BAREBACK RIDER) Pathologist [facility] Iron 10(L) 50 - 150 mcg/dL TIBC 106(L) 250 - 400 mcg/dL [facility] Transferrin saturation 9(L) 20 - 50 % [facility] Blood 09/28/2024 1:54 PM BAREBACK RIDER 09/28/2024 2:19 PM BAREBACK RIDER Kathia Ruiz MD LAB BLOOD ORDERABLES Jessica l Result Performing Organization Address City/[facility] [address]/ZIP Co de Phone Number [facility] [place] [address] * (ABNORMAL) CBC with auto differential (09/28/2024 1:54 PM BAREBACK RIDER) WBC 15.4(H) 3.8 - 9.9 K/cumm Hgb 8.1(L) 13.0 - 17.5 g/dL [facility] Hct 26.5(L) 38.9 - 50.3 % [facility] Plt 377 150 - 400 K/cumm [facility] MPV 10.7 9.1 - 12.3 fL [facility] RBC 3.57(L) 4.30 - 5.80 M/cumm [facility] MCV 74.2(L) 81.3 - 96.4 fL [facility] MCH 22.7(L) 27.1 - 33.3 pg [facility] MCHC 30.6(L) 32.3 - 35.7 g/dL [facility] RDW CV 17.0(H) 11.1 - 14.9 % [facility] RDW SD 46.5 35.7 - 48.1 fL [facility] NRBC abs 0.00 0.00 - 0.01 K/cumm [facility] Blood 09/28/2024 1:54 PM BAREBACK RIDER 09/28/2024 2:19 PM BAREBACK RIDER Kathia Ruiz MD LAB BLOOD ORDERABLES Jessica l Result Performing Organization Address City/[facility] [address]/[facility] Co de Phone Number [facility] [place] [address] * aPTT (09/28/2024 1:54 PM BAREBACK RIDER) aPTT 33 28 - 38 sec Comment: Interpretive Data Heparin therapeutic range: 66.0 - 100.0 seconds. Range based on correlation with therapeutic heparin activity range of 0.3 - 0.7 Units/mL. Current interpretive data was last revised on 2023. Blood 09/28/2024 1:54 PM BAREBACK RIDER 09/28/2024 2:15 PM BAREBACK RIDER Kathia Ruiz MD LAB BLOOD ORDERABLES Jessica l Result Performing Organization Address City/[facility] [address]/[facility] Co de Phone Number [facility] [place] [address] * (ABNORMAL) Protime-INR (09/28/2024 1:54 PM BAREBACK RIDER) PT 16.8(H) 9.7 - 13.0 sec INR 1.54(H) 0.90 - 1.20 [facility] Comment: Interpretive data Oral anticoagulant therapeutic ranges: Venous thromboembolism prophylaxis or treatment: 2.0-3.0 CARDIOLOGY Standard range: 2.0-3.0 High-intensity range: 2.5-3.5 Refer to indication-specific guidelines for appropriate target ranges for prosthetic heart valve replacement. Current interpretive data was last revised on 2019. Blood 09/28/2024 1:54 PM BAREBACK RIDER 09/28/2024 2:15 PM BAREBACK RIDER Kathia Ruiz MD LAB BLOOD ORDERABLES Jessica l Result Performing Organization Address City/[facility] [address]/[facility] Co de Phone Number [facility] [place] [address] * Type and screen (09/28/2024 1:54 PM BAREBACK RIDER) ABO Rh A Positive Pb, indirect Negative [facility] Blood 09/28/2024 1:54 PM BAREBACK RIDER 09/28/2024 2:21 PM BAREBACK RIDER Narrative [facility] - 09/28/2024 3:24 PM BAREBACK RIDER Has the patient had Daratumumab or Isatuximab in the past 6 months?->Unknown Kathia Ruiz MD LAB BLOOD BANK TEST ORDER WHITNEY Final Result Performing Organization Address City/[facility] [address]/ZIP Co de Phone Number [facility] [place] [address] * Osmolality, blood (09/28/2024 1:54 PM BAREBACK RIDER) Osmo 276 275 - 300 mOsm/kg Blood 09/28/2024 1:54 PM BAREBACK RIDER 09/28/2024 2:19 PM BAREBACK RIDER Kathia Ruiz MD LAB BLOOD ORDERABLES Jessica l Result Performing Organization Address [facility] [address]/[facility] Co de Phone Number [facility] Department [place] [address] * (ABNORMAL) Hemoglobin A1c (09/28/2024 1:54 PM BAREBACK RIDER) Hgb A1C 5.8(H) 4.0 - 5.6 % Estimated Average Glucose 120 mg/dL [facility] Comment: The ADA recommends reporting an estimated Average Glucose (eAG) with all Hemoglobin A1c results using the equation derived from a study of 507 normal and diabetic adults. ??Minority populations were underrepresented and children were not included. ?? (Diabetes Care 2020; 43(S1): S66-S76). ??The eAG is not equivalent to a fasting glucose. Blood 09/28/2024 1:54 PM BAREBACK RIDER 09/28/2024 2:19 PM BAREBACK RIDER Kathia Ruiz MD LAB BLOOD ORDERABLES Jessica l Result Performing Organization Address [facility] [address]/[facility] de Phone Number [facility] [place] [address] * (ABNORMAL) Comprehensive metabolic panel (09/28/2024 1:54 PM BAREBACK RIDER) Sodium 135 135 - 145 mmol/L Potassium, pl 3.4 3.3 - 4.9 mmol/L [facility] Chloride 101 97 - 110 mmol/L [facility] CO2 22 22 - 32 mmol/L [facility] Anion gap 12 2 - 15 mmol/L [facility] BUN 7 6 - 25 mg/dL [facility] Creatinine 0.74(L) 0.80 - 1.30 mg/dL [facility] Glucose 86 70 - 199 mg/dL [facility] Comment: Interpretive Data Fasting glucose >/= [...] 2022. Calcium 8.2(L) 8.5 - 10.3 mg/dL [facility] Bilirubin, total 0.4 0.1 - 1.2 mg/dL [facility] Protein, pl 7.1 6.5 - 8.5 g/dL [facility] Albumin 2.7(L) 3.5 - 5.0 g/dL [facility] Alk phos 104 40 - 130 Units/L [facility] ALT 36 7 - 55 Units/L [facility] AST 19 10 - 50 Units/L [facility] Blood 09/28/2024 1:54 PM BAREBACK RIDER 09/28/2024 2:19 PM BAREBACK RIDER Kathia Ruiz MD LAB BLOOD ORDERABLES Jessica l Result Performing Organization Address City/[facility] [address]/ZIP Co de Phone Number [facility] Department [place] [address] * Urine culture Urine, in and out catheter (09/28/2024 1:35 PM BAREBACK RIDER) Report Final Report: Less than 10,000 colonies/mL (clinically insignificant growth based on current clinical standards) Organism (CLINICALLY INSIGNIFICANT GROWTH [facility] Urine, in and out catheter 09/28/2024 1:35 PM BAREBACK RIDER 09/28/2024 4:19 PM BAREBACK RIDER Narrative [facility] - 09/29/2024 5:12 PM BAREBACK RIDER Indications for Culture:->Recent positive UA Specimen received in a sterile container. Testing performed by [facility]biology [facility] ([phone]) Kathia Ruiz MD LAB MICROBIOLOGY - GENERA L ORDERABLES Final Result Performing Organization Address City/[facility] [address]/ZIP Co de Phone Number [facility] [place] [address] * Urea nitrogen, urine, random (09/28/2024 1:07 PM BAREBACK RIDER) Urea nitrogen, ur 665 mg/dL Comment: Interpretive Data No reference range established. Current interpretive data was last revised 2019. Urine 09/28/2024 1:07 PM BAREBACK RIDER 09/28/2024 4:14 PM BAREBACK RIDER Kathia Ruiz MD LAB URINE ORDERABLES Jessica l Result Performing Organization Address [facility] [address]/[facility] [place] [address] * Sodium, urine, random (09/28/2024 1:07 PM BAREBACK RIDER) Sodium, ur 21 mmol/L Comment: Interpretive Data No reference range established. Current interpretive data was last revised 2019. Urine 09/28/2024 1:07 PM BAREBACK RIDER 09/28/2024 4:14 PM BAREBACK RIDER Kathia Ruiz MD LAB URINE ORDERABLES Jessica l Result Performing Organization Address [facility] [address]/[facility] Co de Phone Number [facility] [place] [address] * Osmolality, urine (09/28/2024 1:07 PM BAREBACK RIDER) Osmo, ur 631 mOsm/kg Urine 09/28/2024 1:07 PM BAREBACK RIDER 09/28/2024 4:12 PM BAREBACK RIDER Kathia Ruiz MD LAB URINE ORDERABLES Jessica l Result Performing Organization Address [facility] [address]/[facility] Co de Phone Number [facility] [place] [address] * Creatinine, urine, random (09/28/2024 1:07 PM BAREBACK RIDER) Creatinine Ur 185.5 mg/dL Comment: Interpretive Data No reference range established. Current interpretive data was last revised 2019. Urine 09/28/2024 1:07 PM BAREBACK RIDER 09/28/2024 4:14 PM BAREBACK RIDER Kathia Ruiz MD LAB URINE ORDERABLES Jessica l Result Performing Organization Address [facility] [address]/ZIP Co de Phone Number [facility] Department [place] [address] * ECG 12 lead (09/28/2024 11:11 AM BAREBACK RIDER) Ventricular Rate EKG/Min 91 BPM [facility] Atrial Rate 91 BPM [facility] KS-Interval (MSEC) 168 ms [facility] QRS-Interval (MSEC) 96 ms [facility] QT-Interval (MSEC) 348 ms [facility] QTc 428 ms [facility] P Eden 45 degrees [facility] R Eden 35 degrees [facility] T Eden -6 degrees [facility] Diagnosis Normal sinus rhythm Nonspecific T wave abnormality Abnormal ECG Confirmed by Viri HERRERA [facility] ([id number]) on 10/03/2024 1:36:26 AM [facility] 09/28/2024 11:1 1 AM BAREBACK RIDER 10/03/2024 1:36 AM BAREBACK RIDER Kathia Ruiz MD ECG ORDERABLES Final Res ult Performing Organization Address [facility] [address]/ZIP Co de Phone Number [facility] * (ABNORMAL) Urinalysis reflex to microscopic and culture Urine (09/28/2024 7:53 AM BAREBACK RIDER) Color, ur Yellow Yellow Clarity, ur Cloudy(A) Clear [facility] Specific gravity, ur >1.042(H) 1.003 - 1.030 [facility] pH, urine 6.5 [facility] Comment: Interpretive Data ? Urine pH is affected by diet, medications, systemic acid-base disturbances, and renal tubular function. ??pH may affect urinary stone formation. ??For example, urine pH below 6.0 may help reduce the tendency for calcium phosphate stones and pH greater than 6.0 may reduce the tendency for uric acid stone formation. Source: [facility] Current Interpretive Data was last revised on 2017 Protein, ur ql 2+(A) Negative [facility] Glucose, ur ql Negative Negative [facility] Ketones, ur 2+(A) Negative [facility] Bilirubin, ur Negative Negative [facility] Blood, ur Negative Negative [facility] Urobilinogen, ur <2.0 <2.0 mg/dL [facility] Nitrite, ur Positive(A) Negative [facility] Leukocyte esterase, ur 3+(A) Negative [facility] UA reflex comment Reflex to microscopic UA will be performed. [facility] Urine 09/28/2024 7:53 AM BAREBACK RIDER 09/28/2024 8:03 AM BAREBACK RIDER us Adelina Galvan MD LAB MICROBIOLOGY - GENE [facility] ORDERABLES Final Result [facility] Department [place] [address] * (ABNORMAL) Urinalysis, microscopic only (09/28/2024 7:53 AM BAREBACK RIDER) WBC, ur >50(A) 0 - 5 /HPF RBC, ur >50(A) 0 - 2 /HPF [facility] Epithelial cells, squamous, ur 6-10(A) 0 - 5 /HPF [facility] Comment:Suggestive of contam ination. Consider recollection by clean catch. Bacteria, ur 2+(A) [facility] Mucous, ur Present(A) [facility] Culture Reflex Comment Reflex to urine culture will be performed. [facility] Urine 09/28/2024 7:53 AM BAREBACK RIDER 09/28/2024 8:03 AM BAREBACK RIDER us Adelina Galvan MD LAB URINE ORDERABLES Fi nal Result Performing Organization Address [facility] [address]/ZIP Co de Phone Number [facility] [place] [address] * (ABNORMAL) Urine culture Urine (09/28/2024 7:53 AM BAREBACK RIDER) Report Final Report: Growth indicates contamination with mixed bacterial meir. Please submit a new specimen with special attention given to the collection process and to prompt transport to the laboratory. (.) Organism GROWTH INDICATES CONTAMINATION WITH MIXED MEIR. [facility] Urine 09/28/2024 7:53 AM BAREBACK RIDER 09/28/2024 2:59 PM BAREBACK RIDER Narrative [facility] - 09/29/2024 10:59 PM BAREBACK RIDER Testing performed by [facility] Microbiology Laboratory ([phone]) Kathia Ruiz MD LAB MICROBIOLOGY - GENERA L ORDERABLES Final Result Performing Organization Address [facility] [address]/[facility] Co de Phone Number [facility] Department [place] [address] * Influenza A/B, RSV, and COVID-19 PCR Nasopharyngeal (09/28/2024 1:08 AM BAREBACK RIDER) COVID-19 RNA Negative Negative [facility] Influenza A RNA Negative Negative [facility] Influenza B RNA Negative Negative [facility] RSV RNA Negative Negative [facility] Comment: Interpretive data: Testing performed by [facility] Laboratory ([phone]). This test is performed using the [employer] Xpert Xpress CoV-2/Flu/RSV plus assay. This is a multiplex, real-time reverse transcriptase PCR assay intended for the qualitative detection of nucleic acid from SARS-CoV-2, influenza A, influenza B, and respiratory syncytial virus. This assay has been cleared by the [place] Food and Drug administration. The performance characteristics have been verified by the [facility] Laboratory. ??Results must be considered in the clinical context, and a negative result does not rule out infection. Interpretive Data last revised 2023 Nasopharyngeal 09/28/2024 1: 08 AM BAREBACK RIDER 09/28/2024 1:18 AM BAREBACK RIDER Narrative [facility] - 09/28/2024 2:01 AM BAREBACK RIDER Is the Patient experiencing symptoms consistent with COVID?->Yes us Chula Tate MD LAB MICROBIOLOGY - GENERAL ORDERABLES Final Result [facility] Department [place] [address] [facility] * CT Abdomen Pelvis W Contrast (09/27/2024 11:35 PM BAREBACK RIDER) Anatomical Region Laterality Modality Body N/A Computed Tomogra phy 09/28/2024 12:1 8 AM BAREBACK RIDER Impressions 09/28/2024 8:01 AM BAREBACK RIDER 1. ??Cutaneous tract extending from bilateral gluteal [...] Cipriano Vergara M.D. Narrative 09/28/2024 8:01 AM BAREBACK RIDER EXAMINATION: ??Computed tomography of the abdomen and [...] Sepsis Lactate w/ Reflex (09/27/2024 10:32 PM BAREBACK RIDER) Sepsis Lactate 1.6 0.7 - 2.0 mmol/L Blood 09/27/2024 10:3 2 PM BAREBACK RIDER 09/27/2024 10:37 PM BAREBACK RIDER Adelina Galvan MD LAB BLOOD ORDERABLES Fi nal Result [facility] Department [place] [address] * Blood culture Blood Peripheral (09/27/2024 10:32 PM BAREBACK RIDER) Report Final Report: No growth Blood (Peripheral) 09/27/2024 10:32 PM BAREBACK RIDER 09/27/2024 10:39 PM BAREBACK RIDER Narrative [facility] - 10/02/2024 7:00 AM BAREBACK RIDER From a different site than #1. Draw [...] organism identification may be performed using the [employer] Gram-Positive Blood Culture Assay. This assay detects microbial DNA in positive blood culture broth via hybridization of target DNA to capture oligonucleotides on a microarray. This assay has been cleared by the [place] Food and Drug Administration and its performance characteristics have been verified by the [facility] Microbiology Laboratory. 5. ?For questions about this culture, contact the Microbiology Laboratory at [phone]. Interpretive data was last revised on 2020. us Adelina Galvan MD LAB MICROBIOLOGY - GENE RAL ORDERABLES Final Result [facility] Department [place] [address] * XR Chest 1 Vw Portable (09/27/2024 10:21 PM BAREBACK RIDER) Anatomical Region Laterality Modality Body, Chest N/A Computed Radiogr aphy 09/28/2024 12:4 2 AM BAREBACK RIDER Impressions 09/28/2024 8:01 AM BAREBACK RIDER Comparison is made to prior chest radiograph [...] Cipriano Vergara M.D. Narrative 09/28/2024 8:01 AM BAREBACK RIDER EXAMINATION: 1 view chest radiograph Procedure Note [...] Sepsis Lactate w/ Reflex (09/27/2024 7:59 PM BAREBACK RIDER) Pathologist [facility] Sepsis Lactate 3.6(H) 0.7 - 2.0 mmol/L Blood 09/27/2024 7:59 PM BAREBACK RIDER 09/27/2024 8:08 PM BAREBACK RIDER us Adelina Galvan MD LAB BLOOD ORDERABLES Fi nal Result [facility] Department [place] [address] * eGFR (09/27/2024 7:59 PM BAREBACK RIDER) Pathologist [facility] eGFR >90 >=60 [...] last reviewed 2021. Blood 09/27/2024 7:59 PM BAREBACK RIDER 09/27/2024 8:29 PM BAREBACK RIDER us Adelina Galvan MD LAB BLOOD ORDERABLES Fi nal Result [facility] Department [place] [address] * (ABNORMAL) Differential, auto (09/27/2024 7:59 PM BAREBACK RIDER) Neutrophil abs 21.9(H) 1.5 - 6.5 K/cumm Imm gran abs 0.2(H) 0.0 - 0.1 K/cumm [facility] Lymphocyte abs 1.4 0.8 - 3.3 K/cumm [facility] Monocyte abs 0.6 0.2 - 0.8 K/cumm [facility] Eosinophil abs 0.1 0.0 - 0.5 K/cumm [facility] Basophil abs 0.0 0.0 - 0.1 K/cumm [facility] Neutrophil pct 90.5 % [facility] Comment: Interpretive Data Percent cell count reference ranges are not reported, since discordance with absolute values may lead to misinterpretation of CBC data. Current Interpretive Data was last revised on 2018. Imm gran pct 1.0 % [facility] Comment: Interpretive Data Percent cell count reference ranges are not reported, since discordance with absolute values may lead to misinterpretation of CBC data. Current Interpretive Data was last revised on 2018. Lymphocyte pct 5.6 % [facility] Comment: Interpretive Data Percent cell count reference ranges are not reported, since discordance with absolute values may lead to misinterpretation of CBC data. Current Interpretive Data was last revised on 2018. Monocyte pct 2.4 % [facility] Comment: Interpretive Data Percent cell count reference ranges are not reported, since discordance with absolute values may lead to misinterpretation of CBC data. Current Interpretive Data was last revised on 2018. Eosinophil pct 0.3 % [facility] Comment: Interpretive Data Percent cell count reference ranges are not reported, since discordance with absolute values may lead to misinterpretation of CBC data. Current Interpretive Data was last revised on 2018. Basophil pct 0.2 % [facility] Comment: Interpretive Data Percent cell count reference ranges are not reported, since discordance with absolute values may lead to misinterpretation of CBC data. Current Interpretive Data was last revised on 2018. Blood 09/27/2024 7:59 PM BAREBACK RIDER 09/27/2024 8:26 PM BAREBACK RIDER us Adelina Galvan MD LAB BLOOD ORDERABLES Fi nal Result [facility] Department [place] [address] * (ABNORMAL) CBC with auto differential (09/27/2024 7:59 PM BAREBACK RIDER) WBC 24.2(H) 3.8 - 9.9 K/cumm Hgb 10.7(L) 13.0 - 17.5 g/dL [facility] Hct 35.3(L) 38.9 - 50.3 % [facility] Plt 463(H) 150 - 400 K/cumm [facility] MPV 10.9 9.1 - 12.3 fL [facility] RBC 4.83 4.30 - 5.80 M/cumm [facility] MCV 73.1(L) 81.3 - 96.4 fL [facility] MCH 22.2(L) 27.1 - 33.3 pg [facility] MCHC 30.3(L) 32.3 - 35.7 g/dL [facility] RDW CV 17.2(H) 11.1 - 14.9 % [facility] RDW SD 45.4 35.7 - 48.1 fL [facility] NRBC abs 0.00 0.00 - 0.01 K/cumm [facility] Blood 09/27/2024 7:59 PM BAREBACK RIDER 09/27/2024 8:26 PM BAREBACK RIDER Adelina Galvan MD LAB BLOOD ORDERABLES Fi nal Result [facility] Department [place] [address] * Blood culture Blood Peripheral (09/27/2024 7:59 PM BAREBACK RIDER) Report Final Report: No growth Blood (Peripheral) 09/27/2024 7:59 PM BAREBACK RIDER 09/27/2024 8:11 PM BAREBACK RIDER Narrative [facility] - 10/02/2024 7:00 AM BAREBACK RIDER Draw Blood cultures before administration of Antibiotics [...] organism identification may be performed using the [employer] Gram-Positive Blood Culture Assay. This assay detects microbial DNA in positive blood culture broth via hybridization of target DNA to capture oligonucleotides on a microarray. This assay has been cleared by the [place] Food and Drug Administration and its performance characteristics have been verified by the [facility] Microbiology Laboratory. 5. ?For questions about this culture, contact the Microbiology Laboratory at [phone]. Interpretive data was last revised on 2020. Adelina Galvan MD LAB MICROBIOLOGY - GENE [facility] ORDERABLES Final Result [facility] Department [place] [address] * (ABNORMAL) Comprehensive metabolic panel (09/27/2024 7:59 PM BAREBACK RIDER) Sodium 132(L) 135 - 145 mmol/L Potassium, pl 4.3 3.3 - 4.9 mmol/L [facility] Comment:Hemolyzed; Potassium value may be falsely elevated by as much as 0.3-0.5 mmol/L. Suggest redraw and reanalysis. Chloride 96(L) 97 - 110 mmol/L [facility] CO2 21(L) 22 - 32 mmol/L [facility] Anion gap 15 2 - 15 mmol/L [facility] BUN 7 6 - 25 mg/dL [facility] Creatinine 0.74(L) 0.80 - 1.30 mg/dL [facility] Glucose 74 70 - 199 mg/dL [facility] Comment: Interpretive Data Fasting glucose >/= [...] 2022. Calcium 9.4 8.5 - 10.3 mg/dL [facility] Bilirubin, total 0.8 0.1 - 1.2 mg/dL [facility] Protein, pl 9.6(H) 6.5 - 8.5 g/dL [facility] Albumin 3.4(L) 3.5 - 5.0 g/dL [facility] Alk phos 143(H) 40 - 130 Units/L [facility] ALT 71(H) 7 - 55 Units/L [facility] AST 47 10 - 50 Units/L [facility] Comment:Hemolyzed; result ma y be falsely elevated Blood 09/27/2024 7:59 PM BAREBACK RIDER 09/27/2024 8:29 PM BAREBACK RIDER Adelina Galvan MD LAB BLOOD ORDERABLES Fi nal Result [facility] Department [place] [address] from Last 3 Months Additional Health Concerns Infection Onset Date Last 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 Source: [facility] [employer]. 11/17/[address] [place] [address] [place] [address] [facility] [address] MEDICARE IDPA [facility] [address] [facility] MEDICARE IDPA Advance Directives For more information, please contact: [phone] * Full Code (Latest Code Status on File) Date Activated Date Inactivated Comments 08/06/2021 1:00 PM 08/11/2021 10:46 PM * Full Code Date Activated Date Inactivated Comments 05/22/2021 1:38 PM 05/28/2021 5:06 AM * Full Code Date Activated Date Inactivated Comments 03/28/2021 5:17 PM 04/12/2021 12:02 AM * Full Code Date Activated Date Inactivated Comments 01/10/2019 10:30 PM 01/24/2019 4:31 PM Care Teams Setter Machine Relationship Specialty Start Date End Date Rcik Carpio MD [address] [place] [address] PCP - General Internal Medicine 10/03/24
--- OUTSIDE RECORDS SUMMARY | 2024-12-01 19:45 | XMS_ITS | Encounter Summary ---
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 Source: [facility] [employer]. 11/17/2023 COVID: Suspected 09/28/2024 09/28/2024 09/28/2024 2:02 AM AUTOMATIC OUTSOLE CUTTER C. difficile suspected 10/05/2024 10/05/202410/06 5:07 AM AUTOMATIC OUTSOLE CUTTER documented as of this encounter Care Teams Mold Yarn Supervisor Relationship Specialty Start Date End Date Saw Louie MD [address] [place] [address] PCP - General 03/31/21 07/13/22 [place] [address] [address] [facility] [place] [address] PCP - General 07/14/22 05/11/23 Silverio Germain MD [address] [address] PCP - General Emergency Medicine 05/12/23 10/02/24 Rick Carpio MD [address] [place] [address] PCP - General Internal Medicine 10/03/24 documented as of this encounter
--- OUTSIDE RECORDS SUMMARY | 2024-12-01 19:45 | XMS_ITS | Patient Health Summary ---
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 Performing Organization Address [facility]/ZIP Co de Phone Number [address] [phone] * (ABNORMAL) ERYTHROCYTE SEDIMENTATION RATE (08/10/2019 2:48 AM CDT) Erythrocyte Sedimentation Rate Westergren >130(H) 0 - 15 MM/HR 08/10/2019 3:27 AM CDT [facility] Blood BLOOD SPECIMEN / Unknown Venipuncture / Unknown 08/10/2019 2:48 AM CDT 08/10/2019 2:56 AM CDT Laura Brumfield MD LAB - HEMATOLOGY ORD ERABLES [address] [phone] * (ABNORMAL) COMPREHENSIVE METABOLIC PANEL (08/10/2019 2:48 AM CDT) BUN 8 7 - 26 mg/dL 08/10/2019 3:12 AM CDT [facility] Creatinine 0.7 0.6 - 1.2 mg/dL 08/10/2019 3:12 AM CDT [facility] Sodium 138 136 - 145 mmol/L 08/10/2019 3:12 AM CDT [facility] Potassium 3.2(L) 3.5 - 4.5 mmol/L 08/10/2019 3:12 [facility] Chloride 106 98 - 107 mmol/L 08/10/2019 3:12 [facility] CO2 24 22 - 29 mmol/L 08/10/2019 3:12 [facility] Glucose 82 70 - 115 mg/dL 08/10/2019 3:12 [facility] Calcium 8.2(L) 8.4 - 10.2 mg/dL 08/10/2019 3:12 [facility] Protein Total 7.5 6.0 - 8.3 g/dL 08/10/2019 3:12 [facility] Albumin 3.0(L) 3.4 - 5.0 g/dL 08/10/2019 3:12 [facility] Bilirubin Total 0.6 0.2 - 1.2 mg/dL 08/10/2019 3:12 [facility] Alkaline Phosphatase 110 40 - 150 Units/L 08/10/2019 3:12 [facility] ALT 14 0 - 55 Units/L 08/10/2019 3:12 [facility] AST 13 5 - 34 Units/L 08/10/2019 3:12 [facility] Anion Gap 11 8 - 18 08/10/2019 3:12 [facility] BUN/Creatinine Ratio 11 7 - 23 08/10/2019 3:12 [facility] Osmolality Calculated 283 270 - 300 mOsm/kg 08/10/2019 3:12 [facility] Albumin/Globulin Ratio 0.7(L) 1.1 - 2.3 08/10/2019 3:12 [facility] eGFR >60 >60 mL/min/1.7 3 m2 08/10/2019 3:12 [facility] Blood BLOOD SPECIMEN / Unknown Venipuncture / Unknown 08/10/2019 2:48 AM CDT 08/10/2019 2:56 AM CDT Laura Brumfield MD LAB - CHEMISTRY [facility] Organization Address City/State/ZIP Co de Phone Number [address] [phone] * (ABNORMAL) IRON BLOOD (08/10/2019 2:48 AM CDT) Iron 32(L) 50 - 175 mcg/dL 08/10/2019 8:04 AM CDT [facility] Blood BLOOD SPECIMEN / Unknown Lab Venipuncture / Unknown 08/10/2019 2:48 AM CDT 08/10/2019 7:46 AM CDT Tomás Lehman MD LAB - CHEMISTRY [facility] Performing Organization Address [facility]/ZIP Co de Phone Number [address] [phone] * FERRITIN (08/10/2019 2:48 AM CDT) Ferritin 226 22 - 275 ng/mL 08/10/2019 8:24 AM CDT [facility] Blood BLOOD SPECIMEN / Unknown Lab Venipuncture / Unknown 08/10/2019 2:48 AM CDT 08/10/2019 7:46 AM CDT Tomás Lehman MD LAB - CHEMISTRY [facility] [address] [phone] * CT LUMBAR SPINE WO CONTRAST (08/10/2019 [...] A large expansile, lytic, 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
--- OUTSIDE RECORDS SUMMARY | 2024-12-01 19:45 | XMS_ITS | Encounter Summary ---
Author Organization [facility] Address [address] [place] [address] Phone Care Team Providers Care Tamale Maker Name Role Phone Rick Carpio MD Primary Care Provider [phone] Encounter Details Date Type Department Care Team (Late st Contact Info) Description 10/04/2024 Treatment [facility] Infectious Diseases [address] [place] [address] [address] [place] [phone] Derick Camargo MD [address] [facility] [address] [place] [address] Social History Tobacco Use Types Packs/Day Years [...] often do you attend chur ch or anglican services? Never 08/07/2021 Do you belong to any clubs o r organizations such as episcopal groups, unions, fraternal or athletic groups, or [...] place to sleep or slept in a long-term (including now)? No 08/07/2021 Personal Safety Answer Date Recorded Have you ever been in or are you currently in a harmful physical or emotional relationship or is someone making you feel afraid or unsafe? 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 Source: [facility]. 11/17/2023 C. difficile suspected 10/05/2024 10/05/202410/06 5:07 AM FORMING ACID DUMPER documented as of this encounter Care Teams Tamale Maker Relationship Specialty Start Date End Date Rick Carpio MD [address] [place] [address] PCP - General Internal Medicine 10/03/24 documented as of this encounter
--- OUTSIDE RECORDS SUMMARY | 2024-12-01 19:45 | XMS_ITS | Encounter Summary ---
Author Organization [facility] Address [address] [place] [address] Phone Care Team Providers Care Licensed Nurse Practitioner Name Role Phone Rick Carpio MD Primary Care Provider [phone] Encounter Details Date Type Department Care Team (Late st Contact Info) Description 10/04/2024 Documentation [facility] Infectious Diseases [address] [place] [address] [address] [place] [phone] Derick Camargo MD [address] [facility] [address] [place] [address] Social History Tobacco Use Types Packs/Day Years [...] often do you attend chur ch or rastafarian services? Never 08/07/2021 Do you belong to any clubs o r organizations such as scientologist groups, unions, fraternal or athletic groups, or [...] place to sleep or slept in a fpc (including now)? No 08/07/2021 Personal Safety Answer Date Recorded Have you ever been in or are you currently in a harmful physical or emotional relationship or is someone making you feel afraid or unsafe? 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 or [facility] on IV antibiotics. Please see below for recommendations from the Infectious Diseases inpatient consult teamregarding management. 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 Source: [facility]. 11/17/2023 C. difficile suspected 10/05/2024 10/05/202410/06 5:07 AM LIME HIDE INSPECTOR documented as of this encounter Care Teams Licensed Nurse Practitioner Relationship Specialty Start Date End Date Rick Carpio MD [address] [place] [address] PCP - General Internal Medicine 10/03/24 documented as of this encounter
--- OUTSIDE RECORDS SUMMARY | 2024-12-01 19:46 | XMS_ITS | Clinical Summary ---
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 mmol/L [facility] BUN 12 6 - 25 mg/dL [facility] Creatinine 0.52(L) 0.80 - 1.30 mg/dL [facility] Glucose 100 70 - 199 mg/dL [facility] Comment: Interpretive Data Fasting glucose >/= 126 [...] 2022. Calcium 8.4(L) 8.5 - 10.3 mg/dL [facility] Bilirubin, total <0.2 0.1 - 1.2 mg/dL [facility] Comment:Repeated and Verifie d Protein, pl 6.9 6.5 - 8.5 g/dL [facility] Albumin 2.6(L) 3.5 - 5.0 g/dL [facility] Alk phos 93 40 - 130 Units/L [facility] ALT 9 7 - 55 Units/L [facility] AST 11 10 - 50 Units/L [facility] Blood 10/07/2024 3:16 AM CATERER HELPER 10/07/2024 3:31 AM CATERER HELPER Yoseph Golden MD LAB BLOOD ORDERABLES Final Resul t [facility] [place] [address] * eGFR (10/06/2024 6:15 AM CATERER HELPER) eGFR >90 >=60 mL/min/1. 73 m2 Comment: [...] last reviewed 2021. Blood 10/06/2024 6:15 AM CATERER HELPER 10/06/2024 7:05 AM CATERER HELPER us Yoseph Golden MD LAB BLOOD ORDERABLES Final Resul t [facility] [place] [address] * (ABNORMAL) Differential, auto (10/06/2024 6:15 AM CATERER HELPER) Neutrophil abs 6.5 1.5 - 6.5 K/cumm Imm gran abs 0.4(H) 0.0 - 0.1 K/cumm [facility] Lymphocyte abs 2.5 0.8 - 3.3 K/cumm [facility] Monocyte abs 1.2(H) 0.2 - 0.8 K/cumm [facility] Eosinophil abs 0.3 0.0 - 0.5 K/cumm [facility] Basophil abs 0.0 0.0 - 0.1 K/cumm [facility] Neutrophil pct 59.5 % [facility] Comment: Interpretive Data Percent cell count reference ranges are not reported, since discordance with absolute values may lead to misinterpretation of CBC data. Current Interpretive Data was last revised on 2018. Imm gran pct 4.0 % [facility] Comment: Interpretive Data Percent cell count reference ranges are not reported, since discordance with absolute values may lead to misinterpretation of CBC data. Current Interpretive Data was last revised on 2018. Lymphocyte pct 23.0 % [facility] Comment: Interpretive Data Percent cell count reference ranges are not reported, since discordance with absolute values may lead to misinterpretation of CBC data. Current Interpretive Data was last revised on 2018. Monocyte pct 10.6 % [facility] Comment: Interpretive Data Percent cell count reference ranges are not reported, since discordance with absolute values may lead to misinterpretation of CBC data. Current Interpretive Data was last revised on 2018. Eosinophil pct 2.5 % [facility] Comment: Interpretive Data Percent cell count reference ranges are not reported, since discordance with absolute values may lead to misinterpretation of CBC data. Current Interpretive Data was last revised on 2018. Basophil pct 0.4 % [facility] Comment: Interpretive Data Percent cell count reference ranges are not reported, since discordance with absolute values may lead to misinterpretation of CBC data. Current Interpretive Data was last revised on 2018. Blood 10/06/2024 6:15 AM CATERER HELPER 10/06/2024 7:01 AM CATERER HELPER us Yoseph Golden MD LAB BLOOD ORDERABLES Final Resul t [facility] [place] [address] * (ABNORMAL) CBC with auto differential (10/06/2024 6:15 AM CATERER HELPER) WBC 10.9(H) 3.8 - 9.9 K/cumm Hgb 7.4(L) 13.0 - 17.5 g/dL [facility] Hct 24.4(L) 38.9 - 50.3 % [facility] Plt 401(H) 150 - 400 K/cumm [facility] MPV 9.7 9.1 - 12.3 fL [facility] RBC 3.31(L) 4.30 - 5.80 M/cumm [facility] MCV 73.7(L) 81.3 - 96.4 fL [facility] MCH 22.4(L) 27.1 - 33.3 pg [facility] MCHC 30.3(L) 32.3 - 35.7 g/dL [facility] RDW CV 19.7(H) 11.1 - 14.9 % [facility] RDW SD 49.0(H) 35.7 - 48.1 fL [facility] NRBC abs 0.00 0.00 - 0.01 K/cumm [facility] Blood 10/06/2024 6:15 AM CATERER HELPER 10/06/2024 7:01 AM CATERER HELPER Yoseph Golden MD LAB BLOOD ORDERABLES Final Resul t Performing Organization Address City/[facility]/ZIP Co de Phone Number [facility] [place] [address] * Phosphorus (10/06/2024 6:15 AM CATERER HELPER) Phosphorus, pl 3.9 2.3 - 4.5 mg/dL Blood 10/06/2024 6:15 AM CATERER HELPER 10/06/2024 7:05 AM CATERER HELPER Kathia Ruiz MD LAB BLOOD ORDERABLES Jessica l Result Performing Organization Address [facility] Co de Phone Number [facility] Department [place] [address] * Magnesium (10/06/2024 6:15 AM CATERER HELPER) Magnesium 2.0 1.4 - 2.5 mg/dL Blood 10/06/2024 6:15 AM CATERER HELPER 10/06/2024 7:05 AM CATERER HELPER Kathia Ruiz MD LAB BLOOD ORDERABLES Jessica l Result Performing Organization Address [facility] Co de Phone Number [facility] Department [place] [address] * (ABNORMAL) Comprehensive metabolic panel (10/06/2024 6:15 AM CATERER HELPER) Sodium 141 135 - 145 mmol/L Potassium, pl 3.7 3.3 - 4.9 mmol/L [facility] Chloride 108 97 - 110 mmol/L [facility] CO2 25 22 - 32 mmol/L [facility] Anion gap 8 2 - 15 mmol/L [facility] BUN 12 6 - 25 mg/dL [facility] Creatinine 0.58(L) 0.80 - 1.30 mg/dL [facility] Glucose 88 70 - 199 mg/dL [facility] Comment: Interpretive Data Fasting glucose >/= 126 [...] 2022. Calcium 8.2(L) 8.5 - 10.3 mg/dL [facility] Bilirubin, total 0.2 0.1 - 1.2 mg/dL [facility] Comment:Reviewed Protein, pl 6.7 6.5 - 8.5 g/dL [facility] Albumin 3.0(L) 3.5 - 5.0 g/dL [facility] Alk phos 88 40 - 130 Units/L [facility] ALT 10 7 - 55 Units/L [facility] AST 5(L) 10 - 50 Units/L [facility] Blood 10/06/2024 6:15 AM CATERER HELPER 10/06/2024 7:05 AM CATERER HELPER us Yoseph Golden MD LAB BLOOD ORDERABLES Final Resul t [facility] [place] [address] * C. difficile testing Stool (10/05/2024 9:43 PM CATERER HELPER) [facility] Result Negative Negative Toxin Result Negative Negative [facility] C. diff result Negative, free toxin Negative, free toxin [facility] C. diff interp Negative for toxigenic Clostridioides (Clostridium) difficile. Analysis was performed using a glutamate dehydrogenase antigen detection assay combined with a C. difficile toxin detection assay. [facility] Stool 10/05/2024 9:43 PM CATERER HELPER 10/05/2024 11:54 PM CATERER HELPER Yoseph Golden MD LAB MICROBIOLOGY - GENERAL ORDER WHITNEY Final Result Performing Organization Address [facility] de Phone Number [facility] [place] [address] * Infection Prevention VRE Culture Stool (10/05/2024 9:43 PM CATERER HELPER) [facility] Report Final Report: Negative Stool 10/05/2024 9:43 PM CATERER HELPER 10/06/2024 4:23 AM CATERER HELPER Narrative [facility] - 10/08/2024 7:57 AM CATERER HELPER Surveillance culture for Infection Prevention purposes only; results indicate colonization, not infection requiring treatment. Testing performed by [facility] ([phone]). us Yoseph Golden MD LAB MICROBIOLOGY - GENERAL ORDER WHITNEY Final Result Performing Organization Address [facility] de Phone Number [facility] Department [place] [address] * eGFR (10/05/2024 8:13 AM CATERER HELPER) [facility] eGFR >90 >=60 mL/min/1. 73 m2 Comment: [...] last reviewed 2021. Blood 10/05/2024 8:13 AM CATERER HELPER 10/05/2024 8:53 AM CATERER HELPER us Yoseph Golden MD LAB BLOOD ORDERABLES Final Resul t [facility] Department of Laboratories [place], [place] [id number] * (ABNORMAL) Differential, auto (10/05/2024 8:13 AM CATERER HELPER) Neutrophil abs 6.4 1.5 - 6.5 K/cumm Imm gran abs 0.5(H) 0.0 - 0.1 K/cumm [facility] Lymphocyte abs 2.1 0.8 - 3.3 K/cumm [facility] Monocyte abs 1.1(H) 0.2 - 0.8 K/cumm [facility] Eosinophil abs 0.3 0.0 - 0.5 K/cumm [facility] Basophil abs 0.0 0.0 - 0.1 K/cumm [facility] Neutrophil pct 62.0 % [facility] Comment: Interpretive Data Percent cell count reference ranges are not reported, since discordance with absolute values may lead to misinterpretation of CBC data. Current Interpretive Data was last revised on 2018. Imm gran pct 4.3 % [facility] Comment: Interpretive Data Percent cell count reference ranges are not reported, since discordance with absolute values may lead to misinterpretation of CBC data. Current Interpretive Data was last revised on 2018. Lymphocyte pct 20.2 % [facility] Comment: Interpretive Data Percent cell count reference ranges are not reported, since discordance with absolute values may lead to misinterpretation of CBC data. Current Interpretive Data was last revised on 2018. Monocyte pct 10.7 % [facility] Comment: Interpretive Data Percent cell count reference ranges are not reported, since discordance with absolute values may lead to misinterpretation of CBC data. Current Interpretive Data was last revised on 2018. Eosinophil pct 2.5 % [facility] Comment: Interpretive Data Percent cell count reference ranges are not reported, since discordance with absolute values may lead to misinterpretation of CBC data. Current Interpretive Data was last revised on 2018. Basophil pct 0.3 % [facility] Comment: Interpretive Data Percent cell count reference ranges are not reported, since discordance with absolute values may lead to misinterpretation of CBC data. Current Interpretive Data was last revised on 2018. Blood 10/05/2024 8:13 AM CATERER HELPER 10/05/2024 8:52 AM CATERER HELPER us Yoseph Golden MD LAB BLOOD ORDERABLES Final Resul t [facility] [place] [address] * (ABNORMAL) CBC with auto differential (10/05/2024 8:13 AM CATERER HELPER) WBC 10.4(H) 3.8 - 9.9 K/cumm Hgb 7.8(L) 13.0 - 17.5 g/dL [facility] Hct 25.9(L) 38.9 - 50.3 % [facility] Plt 423(H) 150 - 400 K/cumm [facility] MPV 9.8 9.1 - 12.3 fL [facility] RBC 3.45(L) 4.30 - 5.80 M/cumm [facility] MCV 75.1(L) 81.3 - 96.4 fL [facility] MCH 22.6(L) 27.1 - 33.3 pg [facility] MCHC 30.1(L) 32.3 - 35.7 g/dL [facility] RDW CV 19.2(H) 11.1 - 14.9 % [facility] RDW SD 48.6(H) 35.7 - 48.1 fL [facility] NRBC abs 0.00 0.00 - 0.01 K/cumm [facility] Blood 10/05/2024 8:13 AM CATERER HELPER 10/05/2024 8:52 AM CATERER HELPER us Yoseph Golden MD LAB BLOOD ORDERABLES Final Resul t Performing Organization Address City/[facility] de Phone Number [facility] Department [place] [address] * Phosphorus (10/05/2024 8:13 AM CATERER HELPER) Phosphorus, pl 3.8 2.3 - 4.5 mg/dL Blood 10/05/2024 8:13 AM CATERER HELPER 10/05/2024 8:39 AM CATERER HELPER us Yoseph Golden MD LAB BLOOD ORDERABLES Final Resul t Performing Organization Address City/[facility] Co de Phone Number [facility] Department [place] [address] * Magnesium (10/05/2024 8:13 AM CATERER HELPER) Magnesium 2.1 1.4 - 2.5 mg/dL Blood 10/05/2024 8:13 AM CATERER HELPER 10/05/2024 8:39 AM CATERER HELPER us Yoseph Golden MD LAB BLOOD ORDERABLES Final Resul t Performing Organization Address City/[facility] Co de Phone Number [facility] [place] Department [place] [address] * (ABNORMAL) Comprehensive metabolic panel (10/05/2024 8:13 AM CATERER HELPER) Sodium 139 135 - 145 mmol/L Potassium, pl 4.1 3.3 - 4.9 mmol/L [facility] Chloride 109 97 - 110 mmol/L [facility] CO2 25 22 - 32 mmol/L [facility] Anion gap 5 2 - 15 mmol/L [facility] BUN 14 6 - 25 mg/dL [facility] Creatinine 0.54(L) 0.80 - 1.30 mg/dL [facility] Glucose 91 70 - 199 mg/dL [facility] Comment: Interpretive Data Fasting glucose >/= 126 [...] 2022. Calcium 8.4(L) 8.5 - 10.3 mg/dL [facility] Bilirubin, total <0.2 0.1 - 1.2 mg/dL [facility] Protein, pl 7.0 6.5 - 8.5 g/dL [facility] Albumin 2.6(L) 3.5 - 5.0 g/dL [facility] Alk phos 98 40 - 130 Units/L [facility] ALT 9 7 - 55 Units/L [facility] AST 10 10 - 50 Units/L [facility] Blood 10/05/2024 8:13 AM CATERER HELPER 10/05/2024 8:39 AM CATERER HELPER Yoseph Golden MD LAB BLOOD ORDERABLES Final Resul t [facility] [place] [address] * eGFR (10/04/2024 6:24 AM CATERER HELPER) eGFR >90 >=60 mL/min/1. 73 m2 Comment: [...] last reviewed 2021. Blood 10/04/2024 6:24 AM CATERER HELPER 10/04/2024 6:49 AM CATERER HELPER us Yoseph Golden MD LAB BLOOD ORDERABLES Final Resul t [facility] [place] [address] * (ABNORMAL) Differential, auto (10/04/2024 6:24 AM CATERER HELPER) Neutrophil abs 7.0(H) 1.5 - 6.5 K/cumm Imm gran abs 0.5(H) 0.0 - 0.1 K/cumm [facility] Lymphocyte abs 2.2 0.8 - 3.3 K/cumm [facility] Monocyte abs 1.1(H) 0.2 - 0.8 K/cumm [facility] Eosinophil abs 0.4 0.0 - 0.5 K/cumm [facility] Basophil abs 0.0 0.0 - 0.1 K/cumm [facility] Neutrophil pct 62.8 % [facility] Comment: Interpretive Data Percent cell count reference ranges are not reported, since discordance with absolute values may lead to misinterpretation of CBC data. Current Interpretive Data was last revised on 2018. Imm gran pct 4.0 % [facility] Comment: Interpretive Data Percent cell count reference ranges are not reported, since discordance with absolute values may lead to misinterpretation of CBC data. Current Interpretive Data was last revised on 2018. Lymphocyte pct 19.4 % [facility] Comment: Interpretive Data Percent cell count reference ranges are not reported, since discordance with absolute values may lead to misinterpretation of CBC data. Current Interpretive Data was last revised on 2018. Monocyte pct 9.9 % [facility] Comment: Interpretive Data Percent cell count reference ranges are not reported, since discordance with absolute values may lead to misinterpretation of CBC data. Current Interpretive Data was last revised on 2018. Eosinophil pct 3.5 % [facility] Comment: Interpretive Data Percent cell count reference ranges are not reported, since discordance with absolute values may lead to misinterpretation of CBC data. Current Interpretive Data was last revised on 2018. Basophil pct 0.4 % [facility] Comment: Interpretive Data Percent cell count reference ranges are not reported, since discordance with absolute values may lead to misinterpretation of CBC data. Current Interpretive Data was last revised on 2018. Blood 10/04/2024 6:24 AM CATERER HELPER 10/04/2024 6:46 AM CATERER HELPER us Yoseph Golden MD LAB BLOOD ORDERABLES Final Resul t [facility] [place] [address] * (ABNORMAL) CBC with auto differential (10/04/2024 6:24 AM CATERER HELPER) Pathologist [facility] WBC 11.1(H) 3.8 - 9.9 K/cumm Hgb 7.9(L) 13.0 - 17.5 g/dL [facility] Hct 26.2(L) 38.9 - 50.3 % [facility] Plt 435(H) 150 - 400 K/cumm [facility] MPV 10.3 9.1 - 12.3 fL [facility] RBC 3.56(L) 4.30 - 5.80 M/cumm [facility] MCV 73.6(L) 81.3 - 96.4 fL [facility] MCH 22.2(L) 27.1 - 33.3 pg [facility] MCHC 30.2(L) 32.3 - 35.7 g/dL [facility] RDW CV 18.8(H) 11.1 - 14.9 % [facility] RDW SD 47.9 35.7 - 48.1 fL [facility] NRBC abs 0.00 0.00 - 0.01 K/cumm [facility] Blood 10/04/2024 6:24 AM CATERER HELPER 10/04/2024 6:46 AM CATERER HELPER us Yoseph Golden MD LAB BLOOD ORDERABLES Final Resul t Performing Organization Address City/[facility]/ZIP Co de Phone Number [facility] Department [place] [address] * Phosphorus (10/04/2024 6:24 AM CATERER HELPER) Pathologist [facility] Phosphorus, pl 3.4 2.3 - 4.5 mg/dL Blood 10/04/2024 6:24 AM CATERER HELPER 10/04/2024 6:49 AM CATERER HELPER Kathia Ruiz MD LAB BLOOD ORDERABLES Jessica l Result [facility] [place] [address] * Magnesium (10/04/2024 6:24 AM CATERER HELPER) Pathologist [facility] Magnesium 2.1 1.4 - 2.5 mg/dL Blood 10/04/2024 6:24 AM CATERER HELPER 10/04/2024 6:49 AM CATERER HELPER Kathia Ruiz MD LAB BLOOD ORDERABLES Jessica cruz Result [facility] [place] [address] * (ABNORMAL) Comprehensive metabolic panel (10/04/2024 6:24 AM CATERER HELPER) [facility] Sodium 137 135 - 145 mmol/L Potassium, pl 3.9 3.3 - 4.9 mmol/L [facility] Chloride 109 97 - 110 mmol/L [facility] CO2 24 22 - 32 mmol/L [facility] Anion gap 4 2 - 15 mmol/L [facility] BUN 14 6 - 25 mg/dL [facility] Creatinine 0.56(L) 0.80 - 1.30 mg/dL [facility] Glucose 88 70 - 199 mg/dL [facility] Comment: Interpretive Data Fasting glucose >/= 126 [...] 2022. Calcium 8.2(L) 8.5 - 10.3 mg/dL [facility] Bilirubin, total <0.2 0.1 - 1.2 mg/dL [facility] Protein, pl 6.8 6.5 - 8.5 g/dL [facility] Albumin 2.6(L) 3.5 - 5.0 g/dL [facility] Alk phos 95 40 - 130 Units/L [facility] ALT 11 7 - 55 Units/L [facility] AST 11 10 - 50 Units/L [facility] Blood 10/04/2024 6:24 AM CATERER HELPER 10/04/2024 6:49 AM CATERER HELPER Yoseph Golden MD LAB BLOOD ORDERABLES Final Resul t [facility] [place] [address] * eGFR (10/03/2024 5:42 AM CATERER HELPER) eGFR >90 >=60 mL/min/1. 73 m2 Comment: [...] last reviewed 2021. Blood 10/03/2024 5:42 AM CATERER HELPER 10/03/2024 6:39 AM CATERER HELPER us Yoseph Golden MD LAB BLOOD ORDERABLES Final Resul t [facility] [place] [address] * (ABNORMAL) Differential, auto (10/03/2024 5:42 AM CATERER HELPER) Pathologist [facility] [place] Neutrophil abs 7.7(H) 1.5 - 6.5 K/cumm Imm gran abs 0.6(H) 0.0 - 0.1 K/cumm [facility] Lymphocyte abs 2.3 0.8 - 3.3 K/cumm [facility] Monocyte abs 1.1(H) 0.2 - 0.8 K/cumm [facility] Eosinophil abs 0.4 0.0 - 0.5 K/cumm [facility] Basophil abs 0.0 0.0 - 0.1 K/cumm [facility] Neutrophil pct 63.6 % [facility] Comment: Interpretive Data Percent cell count reference ranges are not reported, since discordance with absolute values may lead to misinterpretation of CBC data. Current Interpretive Data was last revised on 2018. Imm gran pct 5.2 % [facility] Comment: Interpretive Data Percent cell count reference ranges are not reported, since discordance with absolute values may lead to misinterpretation of CBC data. Current Interpretive Data was last revised on 2018. Lymphocyte pct 19.2 % [facility] Comment: Interpretive Data Percent cell count reference ranges are not reported, since discordance with absolute values may lead to misinterpretation of CBC data. Current Interpretive Data was last revised on 2018. Monocyte pct 8.8 % [facility] Comment: Interpretive Data Percent cell count reference ranges are not reported, since discordance with absolute values may lead to misinterpretation of CBC data. Current Interpretive Data was last revised on 2018. Eosinophil pct 3.0 % [facility] Comment: Interpretive Data Percent cell count reference ranges are not reported, since discordance with absolute values may lead to misinterpretation of CBC data. Current Interpretive Data was last revised on 2018. Basophil pct 0.2 % [facility] Comment: Interpretive Data Percent cell count reference ranges are not reported, since discordance with absolute values may lead to misinterpretation of CBC data. Current Interpretive Data was last revised on 2018. Blood 10/03/2024 5:42 AM CATERER HELPER 10/03/2024 6:18 AM CATERER HELPER us Yoseph Golden MD LAB BLOOD ORDERABLES Final Resul t Performing Organization Address City/[facility]/ZIP Co de Phone Number [facility] [place] [address] * (ABNORMAL) CBC with auto differential (10/03/2024 5:42 AM CATERER HELPER) WBC 12.1(H) 3.8 - 9.9 K/cumm Hgb 7.8(L) 13.0 - 17.5 g/dL [facility] Hct 25.7(L) 38.9 - 50.3 % [facility] [facility] Plt 439(H) 150 - 400 K/cumm [facility] MPV 10.5 9.1 - 12.3 fL [facility] RBC 3.45(L) 4.30 - 5.80 M/cumm [facility] MCV 74.5(L) 81.3 - 96.4 fL [facility] MCH 22.6(L) 27.1 - 33.3 pg [facility] MCHC 30.4(L) 32.3 - 35.7 g/dL [facility] RDW CV 18.4(H) 11.1 - 14.9 % [facility] RDW SD 47.9 35.7 - 48.1 fL [facility] NRBC abs 0.00 0.00 - 0.01 K/cumm [facility] Blood 10/03/2024 5:42 AM CATERER HELPER 10/03/2024 6:18 AM CATERER HELPER us Yoseph Golden MD LAB BLOOD ORDERABLES Final Resul t Performing Organization Address City/[facility]/[place] [address] * (ABNORMAL) Prealbumin (10/03/2024 5:42 AM CATERER HELPER) [facility] Prealbumin 14.0(L) 20.0 - 40.0 mg/dL Blood 10/03/2024 5:42 AM CATERER HELPER 10/03/2024 6:18 AM CATERER HELPER Yoseph Golden MD LAB BLOOD ORDERABLES Final Resul t Performing Organization Address [facility] [place] [address] * Phosphorus (10/03/2024 5:42 AM CATERER HELPER) [facility] Phosphorus, pl 3.2 2.3 - 4.5 mg/dL Blood 10/03/2024 5:42 AM CATERER HELPER 10/03/2024 6:29 AM CATERER HELPER Kathia Ruiz MD LAB BLOOD ORDERABLES Jessica l Result Performing Organization Address [facility] Co de Phone Number [facility] [place] [address] * Magnesium (10/03/2024 5:42 AM CATERER HELPER) [facility] Magnesium 2.1 1.4 - 2.5 mg/dL Blood 10/03/2024 5:42 AM CATERER HELPER 10/03/2024 6:29 AM CATERER HELPER Kathia Ruiz MD LAB BLOOD ORDERABLES Jessica l Result Performing Organization Address [facility] Co de Phone Number [facility] [place] [address] * (ABNORMAL) Comprehensive metabolic panel (10/03/2024 5:42 AM CATERER HELPER) [facility] Sodium 138 135 - 145 mmol/L Potassium, pl 4.0 3.3 - 4.9 mmol/L [facility] Chloride 109 97 - 110 mmol/L [facility] CO2 23 22 - 32 mmol/L [facility] Anion gap 6 2 - 15 mmol/L [facility] BUN 13 6 - 25 mg/dL [facility] Creatinine 0.58(L) 0.80 - 1.30 mg/dL [facility] Glucose 87 70 - 199 mg/dL [facility] Comment: Interpretive Data Fasting glucose >/= 126 [...] 2022. Calcium 8.2(L) 8.5 - 10.3 mg/dL [facility] Bilirubin, total <0.2 0.1 - 1.2 mg/dL [facility] Protein, pl 6.8 6.5 - 8.5 g/dL [facility] Albumin 2.6(L) 3.5 - 5.0 g/dL [facility] Alk phos 97 40 - 130 Units/L [facility] ALT 19 7 - 55 Units/L [facility] AST 18 10 - 50 Units/L [facility] Blood 10/03/2024 5:42 AM CATERER HELPER 10/03/2024 6:29 AM CATERER HELPER us Yoseph Golden MD LAB BLOOD ORDERABLES Final Resul t [facility] [place] [address] * eGFR (10/02/2024 2:24 AM CATERER HELPER) Pathologist [facility] [place] eGFR >90 >=60 mL/min/1. 73 m2 Comment: [...] last reviewed 2021. Blood 10/02/2024 2:24 AM CATERER HELPER 10/02/2024 3:49 AM CATERER HELPER us Kathia Ruiz MD LAB BLOOD ORDERABLES Jessica cruz Result [facility] [place] [address] * (ABNORMAL) Differential, auto (10/02/2024 2:24 AM CATERER HELPER) Neutrophil abs 6.4 1.5 - 6.5 K/cumm Imm gran abs 0.5(H) 0.0 - 0.1 K/cumm [facility] Lymphocyte abs 2.3 0.8 - 3.3 K/cumm [facility] Monocyte abs 0.6 0.2 - 0.8 K/cumm [facility] Eosinophil abs 0.2 0.0 - 0.5 K/cumm [facility] Basophil abs 0.0 0.0 - 0.1 K/cumm [facility] Neutrophil pct 63.5 % [facility] Comment: Interpretive Data Percent cell count reference ranges are not reported, since discordance with absolute values may lead to misinterpretation of CBC data. Current Interpretive Data was last revised on 2018. Imm gran pct 4.7 % [facility] Comment: Interpretive Data Percent cell count reference ranges are not reported, since discordance with absolute values may lead to misinterpretation of CBC data. Current Interpretive Data was last revised on 2018. Lymphocyte pct 22.9 % [facility] Comment: Interpretive Data Percent cell count reference ranges are not reported, since discordance with absolute values may lead to misinterpretation of CBC data. Current Interpretive Data was last revised on 2018. Monocyte pct 6.2 % [facility] Comment: Interpretive Data Percent cell count reference ranges are not reported, since discordance with absolute values may lead to misinterpretation of CBC data. Current Interpretive Data was last revised on 2018. Eosinophil pct 2.4 % [facility] Comment: Interpretive Data Percent cell count reference ranges are not reported, since discordance with absolute values may lead to misinterpretation of CBC data. Current Interpretive Data was last revised on 2018. Basophil pct 0.3 % [facility] Comment: Interpretive Data Percent cell count reference ranges are not reported, since discordance with absolute values may lead to misinterpretation of CBC data. Current Interpretive Data was last revised on 2018. Blood 10/02/2024 2:24 AM CATERER HELPER 10/02/2024 3:49 AM CATERER HELPER us Kathia Ruiz MD LAB BLOOD ORDERABLES Jessica cruz Result [facility] [place] [address] * (ABNORMAL) CBC with auto differential (10/02/2024 2:24 AM CATERER HELPER) WBC 10.1(H) 3.8 - 9.9 K/cumm Hgb 7.7(L) 13.0 - 17.5 g/dL [facility] Hct 26.3(L) 38.9 - 50.3 % [facility] Plt 419(H) 150 - 400 K/cumm [facility] MPV 10.6 9.1 - 12.3 fL [facility] RBC 3.58(L) 4.30 - 5.80 M/cumm [facility] MCV 73.5(L) 81.3 - 96.4 fL [facility] MCH 21.5(L) 27.1 - 33.3 pg [facility] MCHC 29.3(L) 32.3 - 35.7 g/dL [facility] RDW CV 18.0(H) 11.1 - 14.9 % [facility] RDW SD 47.5 35.7 - 48.1 fL [facility] NRBC abs 0.00 0.00 - 0.01 K/cumm [facility] Blood 10/02/2024 2:24 AM CATERER HELPER 10/02/2024 3:49 AM CATERER HELPER Kathia Ruiz MD LAB BLOOD ORDERABLES Jessica l Result Performing Organization Address [facility] de Phone Number [facility] [place] [address] * Magnesium (10/02/2024 2:24 AM CATERER HELPER) [facility] Magnesium 1.9 1.4 - 2.5 mg/dL Blood 10/02/2024 2:24 AM CATERER HELPER 10/02/2024 3:49 AM CATERER HELPER Kathia Ruiz MD LAB BLOOD ORDERABLES Jessica l Result Performing Organization Address [facility] Co de Phone Number [facility] Department [place] [address] * (ABNORMAL) Basic metabolic panel (10/02/2024 2:24 AM CATERER HELPER) Pathologist [facility] [place] Sodium 134(L) 135 - 145 mmol/L Potassium, pl 3.8 3.3 - 4.9 mmol/L [facility] Chloride 107 97 - 110 mmol/L [facility] CO2 23 22 - 32 mmol/L [facility] Anion gap 4 2 - 15 mmol/L [facility] BUN 9 6 - 25 mg/dL [facility] Creatinine 0.65(L) 0.80 - 1.30 mg/dL [facility] Glucose 121 70 - 199 mg/dL [facility] Comment: Interpretive Data Fasting glucose >/= 126 [...] 2022. Calcium 7.8(L) 8.5 - 10.3 mg/dL [facility] Blood 10/02/2024 2:24 AM CATERER HELPER 10/02/2024 3:49 AM CATERER HELPER Kathia Ruiz MD LAB BLOOD ORDERABLES Jessica cruz Result Performing Organization Address City/State/[facility] Co de Phone Number [facility] [place] [address] * eGFR (10/01/2024 2:22 AM CATERER HELPER) [facility] eGFR >90 >=60 mL/min/1. 73 m2 Comment: [...] last reviewed 2021. Blood 10/01/2024 2:22 AM CATERER HELPER 10/01/2024 2:49 AM CATERER HELPER us Kathia Ruiz MD LAB BLOOD ORDERABLES Jessica cruz Result [facility] [place] [address] * (ABNORMAL) Differential, auto (10/01/2024 2:22 AM CATERER HELPER) Neutrophil abs 7.5(H) 1.5 - 6.5 K/cumm Imm gran abs 0.5(H) 0.0 - 0.1 K/cumm [facility] Lymphocyte abs 2.1 0.8 - 3.3 K/cumm [facility] Monocyte abs 0.8 0.2 - 0.8 K/cumm [facility] Eosinophil abs 0.2 0.0 - 0.5 K/cumm [facility] Basophil abs 0.0 0.0 - 0.1 K/cumm [facility] Neutrophil pct 67.6 % [facility] Comment: Interpretive Data Percent cell count reference ranges are not reported, since discordance with absolute values may lead to misinterpretation of CBC data. Current Interpretive Data was last revised on 2018. Imm gran pct 4.1 % [facility] Comment: Interpretive Data Percent cell count reference ranges are not reported, since discordance with absolute values may lead to misinterpretation of CBC data. Current Interpretive Data was last revised on 2018. Lymphocyte pct 19.2 % [facility] Comment: Interpretive Data Percent cell count reference ranges are not reported, since discordance with absolute values may lead to misinterpretation of CBC data. Current Interpretive Data was last revised on 2018. Monocyte pct 7.0 % [facility] Comment: Interpretive Data Percent cell count reference ranges are not reported, since discordance with absolute values may lead to misinterpretation of CBC data. Current Interpretive Data was last revised on 2018. Eosinophil pct 1.8 % [facility] Comment: Interpretive Data Percent cell count reference ranges are not reported, since discordance with absolute values may lead to misinterpretation of CBC data. Current Interpretive Data was last revised on 2018. Basophil pct 0.3 % [facility] Comment: Interpretive Data Percent cell count reference ranges are not reported, since discordance with absolute values may lead to misinterpretation of CBC data. Current Interpretive Data was last revised on 2018. Blood 10/01/2024 2:22 AM CATERER HELPER 10/01/2024 2:49 AM CATERER HELPER us Kathia Ruiz MD LAB BLOOD ORDERABLES Jessica cruz Result [facility] [place] [address] * (ABNORMAL) CBC with auto differential (10/01/2024 2:22 AM CATERER HELPER) WBC 11.1(H) 3.8 - 9.9 K/cumm Hgb 8.0(L) 13.0 - 17.5 g/dL [facility] Hct 26.7(L) 38.9 - 50.3 % [facility] Plt 434(H) 150 - 400 K/cumm [facility] MPV 10.7 9.1 - 12.3 fL [facility] RBC 3.65(L) 4.30 - 5.80 M/cumm [facility] MCV 73.2(L) 81.3 - 96.4 fL [facility] MCH 21.9(L) 27.1 - 33.3 pg [facility] MCHC 30.0(L) 32.3 - 35.7 g/dL [facility] RDW CV 17.4(H) 11.1 - 14.9 % [facility] RDW SD 46.3 35.7 - 48.1 fL [facility] NRBC abs 0.00 0.00 - 0.01 K/cumm [facility] Blood 10/01/2024 2:22 AM CATERER HELPER 10/01/2024 2:49 AM CATERER HELPER Kathia Ruiz MD LAB BLOOD ORDERABLES Jessica cruz Result Performing Organization Address [facility] de Phone Number [facility] [place] [address] * (ABNORMAL) aPTT (10/01/2024 2:22 AM CATERER HELPER) Pathologist [facility] [place] aPTT 39(H) 28 - 38 sec Comment: Interpretive Data Heparin therapeutic range: 66.0 - 100.0 seconds. Range based on correlation with therapeutic heparin activity range of 0.3 - 0.7 Units/mL. Current interpretive data was last revised on 2023. Blood 10/01/2024 2:22 AM CATERER HELPER 10/01/2024 2:54 AM CATERER HELPER Kathia Ruiz MD LAB BLOOD ORDERABLES Jessica l Result Performing Organization Address City/[facility] Co de Phone Number [facility] [place] [address] * (ABNORMAL) Protime-INR (10/01/2024 2:22 AM CATERER HELPER) Pathologist [facility] PT 15.9(H) 9.7 - 13.0 sec INR 1.46(H) 0.90 - 1.20 [facility] Comment: Interpretive data Oral anticoagulant therapeutic ranges: Venous thromboembolism prophylaxis or treatment: 2.0-3.0 CARDIOLOGY Standard range: 2.0-3.0 High-intensity range: 2.5-3.5 Refer to indication-specific guidelines for appropriate target ranges for prosthetic heart valve replacement. Current interpretive data was last revised on 2019. Blood 10/01/2024 2:22 AM CATERER HELPER 10/01/2024 2:54 AM CATERER HELPER us Kathia Ruiz MD LAB BLOOD ORDERABLES Jessica cruz Result [facility] [place] [address] * (ABNORMAL) Basic metabolic panel (10/01/2024 2:22 AM CATERER HELPER) Pathologist [facility] Sodium 136 135 - 145 mmol/L Potassium, pl 3.4 3.3 - 4.9 mmol/L [facility] Chloride 105 97 - 110 mmol/L [facility] CO2 23 22 - 32 mmol/L [facility] Anion gap 8 2 - 15 mmol/L [facility] BUN 8 6 - 25 mg/dL [facility] Creatinine 0.70(L) 0.80 - 1.30 mg/dL [facility] Glucose 105 70 - 199 mg/dL [facility] Comment: Interpretive Data Fasting glucose >/= 126 [...] 2022. Calcium 8.0(L) 8.5 - 10.3 mg/dL [facility] Blood 10/01/2024 2:22 AM CATERER HELPER 10/01/2024 2:49 AM CATERER HELPER Kathia Ruiz MD LAB BLOOD ORDERABLES Jessica l Result Performing Organization Address [facility] de Phone Number [facility] [place] [address] * eGFR (09/29/2024 4:17 PM CATERER HELPER) eGFR >90 >=60 mL/min/1. 73 m2 Comment: [...] last reviewed 2021. Blood 09/29/2024 4:17 PM CATERER HELPER 09/29/2024 4:57 PM CATERER HELPER Kathia Ruiz MD LAB BLOOD ORDERABLES Jessica l Result [facility] [place] [address] * (ABNORMAL) Differential, auto (09/29/2024 4:17 PM CATERER HELPER) Neutrophil abs 8.2(H) 1.5 - 6.5 K/cumm Imm gran abs 0.1 0.0 - 0.1 K/cumm [facility] Lymphocyte abs 0.8 0.8 - 3.3 K/cumm [facility] Monocyte abs 0.3 0.2 - 0.8 K/cumm [facility] Eosinophil abs 0.1 0.0 - 0.5 K/cumm [facility] Basophil abs 0.0 0.0 - 0.1 K/cumm [facility] Neutrophil pct 86.8 % [facility] Comment: Interpretive Data Percent cell count reference ranges are not reported, since discordance with absolute values may lead to misinterpretation of CBC data. Current Interpretive Data was last revised on 2018. Imm gran pct 1.2 % [facility] Comment: Interpretive Data Percent cell count reference ranges are not reported, since discordance with absolute values may lead to misinterpretation of CBC data. Current Interpretive Data was last revised on 2018. Lymphocyte pct 8.0 % [facility] Comment: Interpretive Data Percent cell count reference [...] revised on 2018. Eosinophil pct 1.3 % [facility] Comment: Interpretive Data Percent cell count reference ranges are not reported, since discordance with absolute values may lead to misinterpretation of CBC data. Current Interpretive Data was last revised on 2018. Basophil pct 0.1 % [facility] Comment: Interpretive Data Percent cell count reference ranges are not reported, since discordance with absolute values may lead to misinterpretation of CBC data. Current Interpretive Data was last revised on 2018. Blood 09/29/2024 4:17 PM CATERER HELPER 09/29/2024 4:57 PM CATERER HELPER Kathia Ruiz MD LAB BLOOD ORDERABLES Jessica l Result Performing Organization Address [facility] Co de Phone Number [facility] [place] [address] * (ABNORMAL) CBC with auto differential (09/29/2024 4:17 PM CATERER HELPER) Pathologist [facility] [place] WBC 9.5 3.8 - 9.9 K/cumm Hgb 9.5(L) 13.0 - 17.5 g/dL [facility] Hct 31.3(L) 38.9 - 50.3 % [facility] Plt 357 150 - 400 K/cumm [facility] MPV 10.7 9.1 - 12.3 fL [facility] RBC 4.30 4.30 - 5.80 M/cumm [facility] MCV 72.8(L) 81.3 - 96.4 fL [facility] MCH 22.1(L) 27.1 - 33.3 pg [facility] MCHC 30.4(L) 32.3 - 35.7 g/dL [facility] RDW CV 17.3(H) 11.1 - 14.9 % [facility] RDW SD 45.9 35.7 - 48.1 fL [facility] NRBC abs 0.00 0.00 - 0.01 K/cumm [facility] Blood 09/29/2024 4:17 PM CATERER HELPER 09/29/2024 4:57 PM CATERER HELPER Kathia Ruiz MD LAB BLOOD ORDERABLES Jessica cruz Result Performing Organization Address City/[facility] Co de Phone Number [facility] Department [place] [address] * (ABNORMAL) aPTT (09/29/2024 4:17 PM CATERER HELPER) aPTT 43(H) 28 - 38 sec Comment: Interpretive Data Heparin therapeutic range: 66.0 - 100.0 seconds. Range based on correlation with therapeutic heparin activity range of 0.3 - 0.7 Units/mL. Current interpretive data was last revised on 2023. Blood 09/29/2024 4:17 PM CATERER HELPER 09/29/2024 4:53 PM CATERER HELPER Kathia Ruiz MD LAB BLOOD ORDERABLES Jessica l Result Performing Organization Address [facility] de Phone Number [facility] [place] [address] * (ABNORMAL) Protime-INR (09/29/2024 4:17 PM CATERER HELPER) Pathologist [facility] [place] PT 16.1(H) 9.7 - 13.0 sec INR 1.48(H) 0.90 - 1.20 [facility] Comment: Interpretive data Oral anticoagulant therapeutic ranges: Venous thromboembolism prophylaxis or treatment: 2.0-3.0 CARDIOLOGY Standard range: 2.0-3.0 High-intensity range: 2.5-3.5 Refer to indication-specific guidelines for appropriate target ranges for prosthetic heart valve replacement. Current interpretive data was last revised on 2019. Blood 09/29/2024 4:17 PM CATERER HELPER 09/29/2024 4:53 PM CATERER HELPER Kathia Ruiz MD LAB BLOOD ORDERABLES Jessica l Result Performing Organization Address [facility] Co de Phone Number [facility] [place] [address] * (ABNORMAL) Reticulocyte Count (09/29/2024 4:17 PM CATERER HELPER) Pathologist [facility] [place] Retics, absolute 0.055 0.020 - 0.087 M/cumm Retics 1.6 0.4 - 2.9 % [facility] Reticulocyte Hgb 20.9(L) 30.5 - 38.0 pg [facility] Blood 09/29/2024 4:17 PM CATERER HELPER 09/29/2024 4:57 PM CATERER HELPER Kathia Ruiz MD LAB BLOOD ORDERABLES Jessica l Result Performing Organization Address [facility] Co de Phone Number [facility] [place] [address] * (ABNORMAL) Folate (09/29/2024 4:17 PM CATERER HELPER) Pathologist [facility] Folic acid 3.9(L) >=5.0 ng/mL Blood 09/29/2024 4:17 PM CATERER HELPER 09/29/2024 4:57 PM CATERER HELPER Kathia Ruiz MD LAB BLOOD ORDERABLES Jessica l Result Performing Organization Address [facility] de Phone Number [facility] [place] [address] * (ABNORMAL) Ferritin (09/29/2024 4:17 PM CATERER HELPER) Pathologist [facility] Ferritin 649(H) 30 - 400 ng/mL Blood 09/29/2024 4:17 PM CATERER HELPER 09/29/2024 4:57 PM CATERER HELPER Kathia Ruiz MD LAB BLOOD ORDERABLES Jessica l Result Performing Organization Address [facility] [place] [address] * Vitamin B12 (09/29/2024 4:17 PM CATERER HELPER) Pathologist [facility] Vitamin B12 656 230 - 1,250 pg/mL Blood 09/29/2024 4:17 PM CATERER HELPER 09/29/2024 4:57 PM CATERER HELPER Kathia Ruiz MD LAB BLOOD ORDERABLES Jessica cruz Result [facility] Department [place] [address] * (ABNORMAL) Basic metabolic panel (09/29/2024 4:17 PM CATERER HELPER) Pathologist [facility] Sodium 138 135 - 145 mmol/L Potassium, pl 3.5 3.3 - 4.9 mmol/L [facility] Chloride 105 97 - 110 mmol/L [facility] CO2 20(L) 22 - 32 mmol/L [facility] Anion gap 13 2 - 15 mmol/L [facility] BUN 10 6 - 25 mg/dL [facility] Creatinine 0.67(L) 0.80 - 1.30 mg/dL [facility] Glucose 104 70 - 199 mg/dL [facility] Comment: Interpretive Data Fasting glucose >/= 126 [...] 2022. Calcium 8.1(L) 8.5 - 10.3 mg/dL [facility] Blood 09/29/2024 4:17 PM CATERER HELPER 09/29/2024 4:57 PM CATERER HELPER Kathia Ruiz MD LAB BLOOD ORDERABLES Jessica cruz Result Performing Organization Address City/[facility]/ZIP Co de Phone Number [facility] Department [place] [address] * Tissue aerobic and anaerobic culture and gram stain Tissue Sacral (09/29/2024 12:37 PM CATERER HELPER) Direct Specimen Exam Stain: No polymorphonuclear leukocytes seen. No organisms seen. Report Final Report: No growth [facility] Tissue (Sacral) 09/29/2024 1 2:37 PM CATERER HELPER 09/29/2024 2:14 PM CATERER HELPER Narrative [facility] - 10/02/2024 10:33 AM CATERER HELPER Left sacrum Specimen received in anaerobic transport media. Testing performed by [facility] ([phone]) Specimens submitted from normally sterile body sites [...] interpretive data was last revised on 2020. [facility] MICROBIOLOGY - GENERAL ORDERABLES Final Result Performing Organization Address City/[facility] Co de Phone Number [facility] [place] [address] * Mycology (fungal) culture Tissue Sacral (09/29/2024 12:37 PM CATERER HELPER) Report Final Report: No growth of fungus Tissue (Sacral) 09/29/2024 1 2:37 PM CATERER HELPER 09/29/2024 2:15 PM CATERER HELPER Narrative [facility] - 10/27/2024 7:59 AM CATERER HELPER Left sacrum Specimen received in anaerobic transport media. Testing performed by [facility] ([phone]). [facility]AL ORDERABLES Final Result [facility] Department [place] [address] * (ABNORMAL) Tissue aerobic and anaerobic culture and gram stain Tissue Sacral (09/29/2024 12:26 PM CATERER HELPER) Direct Specimen Exam Stain: No polymorphonuclear leukocytes seen. No organisms seen. Report Final Report: Few Mixed aerobic and anaerobic microorganisms Includes the following: Rare Amanda albicans (.) [facility] Organism MIXED AEROBIC AND ANAEROBIC MICROORGANISMS [facility] Organism AMANDA ALBICANS [facility] Tissue (Sacral) 09/29/2024 1 2:26 PM CATERER HELPER 09/29/2024 2:01 PM CATERER HELPER Narrative [facility] - 10/02/2024 3:00 PM CATERER HELPER Right sacrum Specimen received in anaerobic transport media. Testing performed by [facility] ([phone]) Specimens submitted from normally sterile body sites [...] data was last revised on 2020. [employer] LAB MICROBIOLOGY - GENERAL ORDERABLES Final Result Performing Organization Address City/[facility]/ZIP Co de Phone Number [facility] Department [place] [address] * (ABNORMAL) Mycology (fungal) culture Tissue Sacral (09/29/2024 12:26 PM CATERER HELPER) Report Final Report: Amanda albicans (.) Organism AMANDA ALBICANS [facility] Tissue (Sacral) 09/29/2024 1 2:26 PM CATERER HELPER 09/29/2024 2:01 PM CATERER HELPER Narrative [facility] - 10/27/2024 7:56 AM CATERER HELPER Right sacrum Specimen received in anaerobic transport media. Testing performed by [facility] ([phone]). Teri [employer] LAB MICROBIOLOGY - GENERAL ORDERABLES Final Result Performing Organization Address City/[facility]/ZIP Co de Phone Number [facility] [place] [address] * SC AN ELECTIVE ENDOTRACHEAL AIRWAY, SC AN PROCEDURE PLACEHOLDER (09/29/2024 11:36 AM CATERER HELPER) Narrative Pallavi Dennis CRNA - 09/29/2024 11:36 AM CATERER HELPER Pallavi Dennis CRNA ? 09/29/2024 11:38 AM Airway Patient location: OR Urgency: elective Indications for airway management: anesthesia and airway protection Difficult airway: no Staff: Supervising provider: Natasha Murphy MD Placed by: AERIAL SURVEY TECHNICIAN: Pallavi Dennis CRNA Emergent airway documentation: Risks [...] Final Result * eGFR (09/29/2024 5:48 AM CATERER HELPER) Pathologist [facility] [place] eGFR >90 >=60 mL/min/1. 73 m2 Comment: [...] last reviewed 2021. Blood 09/29/2024 5:48 AM CATERER HELPER 09/29/2024 6:22 AM CATERER HELPER Kathia Ruiz MD LAB BLOOD ORDERABLES Jesisca cruz Result [facility] [place] [address] * (ABNORMAL) Differential, auto (09/29/2024 5:48 AM CATERER HELPER) Pathologist [facility] [place] Neutrophil abs 9.0(H) 1.5 - 6.5 K/cumm Imm gran abs 0.1 0.0 - 0.1 K/cumm [facility] Lymphocyte abs 1.1 0.8 - 3.3 K/cumm [facility] Monocyte abs 0.6 0.2 - 0.8 K/cumm [facility] Eosinophil abs 0.4 0.0 - 0.5 K/cumm [facility] Basophil abs 0.0 0.0 - 0.1 K/cumm [facility] Neutrophil pct 80.1 % [facility] Comment: Interpretive Data Percent cell count reference ranges are not reported, since discordance with absolute values may lead to misinterpretation of CBC data. Current Interpretive Data was last revised on 2018. Imm gran pct 1.1 % [facility] Comment: Interpretive Data Percent cell count reference ranges are not reported, since discordance with absolute values may lead to misinterpretation of CBC data. Current Interpretive Data was last revised on 2018. Lymphocyte pct 10.1 % [facility] Comment: Interpretive Data Percent cell count reference ranges are not reported, since discordance with absolute values may lead to misinterpretation of CBC data. Current Interpretive Data was last revised on 2018. Monocyte pct 5.1 % [facility] Comment: Interpretive Data Percent cell count reference ranges are not reported, since discordance with absolute values may lead to misinterpretation of CBC data. Current Interpretive Data was last revised on 2018. Eosinophil pct 3.4 % [facility] Comment: Interpretive Data Percent cell count reference ranges are not reported, since discordance with absolute values may lead to misinterpretation of CBC data. Current Interpretive Data was last revised on 2018. Basophil pct 0.2 % [facility] Comment: Interpretive Data Percent cell count reference ranges are not reported, since discordance with absolute values may lead to misinterpretation of CBC data. Current Interpretive Data was last revised on 2018. Blood 09/29/2024 5:48 AM CATERER HELPER 09/29/2024 6:23 AM CATERER HELPER us Kathia Ruiz MD LAB BLOOD ORDERABLES Jessica cruz Result [facility] [place] [address] * (ABNORMAL) CBC with auto differential (09/29/2024 5:48 AM CATERER HELPER) WBC 11.2(H) 3.8 - 9.9 K/cumm Hgb 8.2(L) 13.0 - 17.5 g/dL [facility] Hct 27.1(L) 38.9 - 50.3 % [facility] Plt 391 150 - 400 K/cumm [facility] MPV 10.8 9.1 - 12.3 fL [facility] RBC 3.70(L) 4.30 - 5.80 M/cumm [facility] MCV 73.2(L) 81.3 - 96.4 fL [facility] MCH 22.2(L) 27.1 - 33.3 pg [facility] MCHC 30.3(L) 32.3 - 35.7 g/dL [facility] RDW CV 17.2(H) 11.1 - 14.9 % [facility] RDW SD 45.8 35.7 - 48.1 fL [facility] NRBC abs 0.00 0.00 - 0.01 K/cumm [facility] Blood 09/29/2024 5:48 AM CATERER HELPER 09/29/2024 6:23 AM CATERER HELPER Kathia Ruiz MD LAB BLOOD ORDERABLES Jessica l Result Performing Organization Address [facility] de Phone Number [facility] [place] [address] * aPTT (09/29/2024 5:48 AM CATERER HELPER) aPTT 33 28 - 38 sec Comment: Interpretive Data Heparin therapeutic range: 66.0 - 100.0 seconds. Range based on correlation with therapeutic heparin activity range of 0.3 - 0.7 Units/mL. Current interpretive data was last revised on 2023. Blood 09/29/2024 5:48 AM CATERER HELPER 09/29/2024 6:09 AM CATERER HELPER Kathia Ruiz MD LAB BLOOD ORDERABLES Jessica l Result Performing Organization Address [facility] Co de Phone Number [facility] [address] * (ABNORMAL) Protime-INR (09/29/2024 5:48 AM CATERER HELPER) PT 16.3(H) 9.7 - 13.0 sec INR 1.50(H) 0.90 - 1.20 [facility] Comment: Interpretive data Oral anticoagulant therapeutic ranges: Venous thromboembolism prophylaxis or treatment: 2.0-3.0 CARDIOLOGY Standard range: 2.0-3.0 High-intensity range: 2.5-3.5 Refer to indication-specific guidelines for appropriate target ranges for prosthetic heart valve replacement. Current interpretive data was last revised on 2019. Blood 09/29/2024 5:48 AM CATERER HELPER 09/29/2024 6:09 AM CATERER HELPER Kathia Ruiz MD LAB BLOOD ORDERABLES Jessica cruz Result [facility] [place] [address] * (ABNORMAL) Basic metabolic panel (09/29/2024 5:48 AM CATERER HELPER) Sodium 136 135 - 145 mmol/L Potassium, pl 3.5 3.3 - 4.9 mmol/L [facility] Chloride 102 97 - 110 mmol/L [facility] CO2 23 22 - 32 mmol/L [facility] Anion gap 11 2 - 15 mmol/L [facility] BUN 9 6 - 25 mg/dL [facility] Creatinine 0.71(L) 0.80 - 1.30 mg/dL [facility] Glucose 90 70 - 199 mg/dL [facility] Comment: Interpretive Data Fasting glucose >/= 126 [...] 2022. Calcium 8.2(L) 8.5 - 10.3 mg/dL [facility] Blood 09/29/2024 5:48 AM CATERER HELPER 09/29/2024 6:22 AM CATERER HELPER Kathia Ruiz MD LAB BLOOD ORDERABLES Jessica nancy Result Performing Organization Address [facility] Co de Phone Number [facility] [place] [address] * (ABNORMAL) CBC without differential (09/28/2024 9:26 PM CATERER HELPER) WBC 14.9(H) 3.8 - 9.9 K/cumm Hgb 8.3(L) 13.0 - 17.5 g/dL [facility] Hct 27.5(L) 38.9 - 50.3 % [facility] Plt 388 150 - 400 K/cumm [facility] MPV 11.1 9.1 - 12.3 fL [facility] RBC 3.75(L) 4.30 - 5.80 M/cumm [facility] MCV 73.3(L) 81.3 - 96.4 fL [facility] MCH 22.1(L) 27.1 - 33.3 pg [facility] MCHC 30.2(L) 32.3 - 35.7 g/dL [facility] RDW CV 17.2(H) 11.1 - 14.9 % [facility] RDW SD 45.5 35.7 - 48.1 fL [facility] NRBC abs 0.00 0.00 - 0.01 K/cumm [facility] Blood 09/28/2024 9:26 PM CATERER HELPER 09/28/2024 10:09 PM CATERER HELPER Kathia Ruiz MD LAB BLOOD ORDERABLES Jessica cruz Result Performing Organization Address City/[facility]/ZIP Co de Phone Number [facility] Department [place] [address] * Potassium, whole blood (09/28/2024 1:54 PM CATERER HELPER) Potassium, bld 3.4 3.3 - 4.9 mmol/L Blood 09/28/2024 1:54 PM CATERER HELPER 09/28/2024 2:12 PM CATERER HELPER us Kathia Ruiz MD LAB BLOOD ORDERABLES Jessica l Result Performing Organization Address [facility] de Phone Number [facility] [place] [address] * eGFR (09/28/2024 1:54 PM CATERER HELPER) eGFR >90 >=60 mL/min/1. 73 m2 Comment: [...] last reviewed 2021. Blood 09/28/2024 1:54 PM CATERER HELPER 09/28/2024 2:19 PM CATERER HELPER Kathia Ruiz MD LAB BLOOD ORDERABLES Jessica l Result Performing Organization Address [facility] Co de Phone Number [facility] [place] [address] * (ABNORMAL) Differential, auto (09/28/2024 1:54 PM CATERER HELPER) Neutrophil abs 13.6(H) 1.5 - 6.5 K/cumm Imm gran abs 0.2(H) 0.0 - 0.1 K/cumm [facility] Lymphocyte abs 0.8 0.8 - 3.3 K/cumm [facility] Monocyte abs 0.7 0.2 - 0.8 K/cumm [facility] Eosinophil abs 0.3 0.0 - 0.5 K/cumm [facility] Basophil abs 0.0 0.0 - 0.1 K/cumm [facility] Neutrophil pct 87.8 % [facility] Comment: Interpretive Data Percent cell count reference ranges are not reported, since discordance with absolute values may lead to misinterpretation of CBC data. Current Interpretive Data was last revised on 2018. Imm gran pct 1.0 % [facility] Comment: Interpretive Data Percent cell count reference ranges are not reported, since discordance with absolute values may lead to misinterpretation of CBC data. Current Interpretive Data was last revised on 2018. Lymphocyte pct 5.1 % [facility] Comment: Interpretive Data Percent cell count reference ranges are not reported, since discordance with absolute values may lead to misinterpretation of CBC data. Current Interpretive Data was last revised on 2018. Monocyte pct 4.3 % [facility] Comment: Interpretive Data Percent cell count reference ranges are not reported, since discordance with absolute values may lead to misinterpretation of CBC data. Current Interpretive Data was last revised on 2018. Eosinophil pct 1.6 % [facility] Comment: Interpretive Data Percent cell count reference ranges are not reported, since discordance with absolute values may lead to misinterpretation of CBC data. Current Interpretive Data was last revised on 2018. Basophil pct 0.2 % [facility] Comment: Interpretive Data Percent cell count reference ranges are not reported, since discordance with absolute values may lead to misinterpretation of CBC data. Current Interpretive Data was last revised on 2018. Blood 09/28/2024 1:54 PM CATERER HELPER 09/28/2024 2:19 PM CATERER HELPER Kathia Ruiz MD LAB BLOOD ORDERABLES Jessica l Result [facility] Department [place] [address] * (ABNORMAL) Iron profile w/ IBC (09/28/2024 1:54 PM CATERER HELPER) Pathologist [facility] [place] Iron 10(L) 50 - 150 mcg/dL TIBC 106(L) 250 - 400 mcg/dL [facility] Transferrin saturation 9(L) 20 - 50 % [facility] Blood 09/28/2024 1:54 PM CATERER HELPER 09/28/2024 2:19 PM CATERER HELPER Kathia Ruiz MD LAB BLOOD ORDERABLES Jessica l Result Performing Organization Address [facility]/ZIP Co de Phone Number [facility] [place] [address] * (ABNORMAL) CBC with auto differential (09/28/2024 1:54 PM CATERER HELPER) [facility] WBC 15.4(H) 3.8 - 9.9 K/cumm Hgb 8.1(L) 13.0 - 17.5 g/dL [facility] Hct 26.5(L) 38.9 - 50.3 % [facility] Plt 377 150 - 400 K/cumm [facility] MPV 10.7 9.1 - 12.3 fL [facility] RBC 3.57(L) 4.30 - 5.80 M/cumm [facility] MCV 74.2(L) 81.3 - 96.4 fL [facility] MCH 22.7(L) 27.1 - 33.3 pg [facility] MCHC 30.6(L) 32.3 - 35.7 g/dL [facility] RDW CV 17.0(H) 11.1 - 14.9 % [facility] RDW SD 46.5 35.7 - 48.1 fL [facility] NRBC abs 0.00 0.00 - 0.01 K/cumm [facility] Blood 09/28/2024 1:54 PM CATERER HELPER 09/28/2024 2:19 PM CATERER HELPER Kathia Ruiz MD LAB BLOOD ORDERABLES Jessica l Result Performing Organization Address [facility] de Phone Number [facility] [place] [address] * aPTT (09/28/2024 1:54 PM CATERER HELPER) aPTT 33 28 - 38 sec Comment: Interpretive Data Heparin therapeutic range: 66.0 - 100.0 seconds. Range based on correlation with therapeutic heparin activity range of 0.3 - 0.7 Units/mL. Current interpretive data was last revised on 2023. Blood 09/28/2024 1:54 PM CATERER HELPER 09/28/2024 2:15 PM CATERER HELPER Kathia Ruiz MD LAB BLOOD ORDERABLES Jessica l Result Performing Organization Address [facility] de Phone Number [facility] [place] [address] * (ABNORMAL) Protime-INR (09/28/2024 1:54 PM CATERER HELPER) PT 16.8(H) 9.7 - 13.0 sec INR 1.54(H) 0.90 - 1.20 [facility] Comment: Interpretive data Oral anticoagulant therapeutic ranges: Venous thromboembolism prophylaxis or treatment: 2.0-3.0 CARDIOLOGY Standard range: 2.0-3.0 High-intensity range: 2.5-3.5 Refer to indication-specific guidelines for appropriate target ranges for prosthetic heart valve replacement. Current interpretive data was last revised on 2019. Blood 09/28/2024 1:54 PM CATERER HELPER 09/28/2024 2:15 PM CATERER HELPER Kathia Ruiz MD LAB BLOOD ORDERABLES Jessica l Result Performing Organization Address [facility] de Phone Number [facility] [place] [address] * Type and screen (09/28/2024 1:54 PM CATERER HELPER) Pathologist [facility] [place] ABO Rh A Positive Pb, indirect Negative [facility] Blood 09/28/2024 1:54 PM CATERER HELPER 09/28/2024 2:21 PM CATERER HELPER Narrative [facility] - 09/28/2024 3:24 PM CATERER HELPER Has the patient had Daratumumab or Isatuximab in the past 6 months?->Unknown Kathia Ruiz MD LAB BLOOD BANK TEST ORDER WHITNEY Final Result Performing Organization Address [facility] de Phone Number [facility] [place] [address] * Osmolality, blood (09/28/2024 1:54 PM CATERER HELPER) [facility] Osmo 276 275 - 300 mOsm/kg Blood 09/28/2024 1:54 PM CATERER HELPER 09/28/2024 2:19 PM CATERER HELPER Result [facility] Kathia Ruiz MD LAB BLOOD ORDERABLES Jessica l Result Performing Organization Address [facility] [place] [address] * (ABNORMAL) Hemoglobin A1c (09/28/2024 1:54 PM CATERER HELPER) [facility] Hgb A1C 5.8(H) 4.0 - 5.6 % Estimated Average Glucose 120 mg/dL [facility] Comment: The ADA recommends reporting an estimated Average Glucose (eAG) with all Hemoglobin A1c results using the equation derived from a study of 507 normal and diabetic adults. ??Minority populations were underrepresented and children were not included. ?? (Diabetes Care 2020; 43(S1): S66-S76). ??The eAG is not equivalent to a fasting glucose. Blood 09/28/2024 1:54 PM CATERER HELPER 09/28/2024 2:19 PM CATERER HELPER us Kathia Ruiz MD LAB BLOOD ORDERABLES Jessica cruz Result [facility] [place] [address] * (ABNORMAL) Comprehensive metabolic panel (09/28/2024 1:54 PM CATERER HELPER) Sodium 135 135 - 145 mmol/L Potassium, pl 3.4 3.3 - 4.9 mmol/L [facility] Chloride 101 97 - 110 mmol/L [facility] CO2 22 22 - 32 mmol/L [facility] Anion gap 12 2 - 15 mmol/L [facility] BUN 7 6 - 25 mg/dL [facility] Creatinine 0.74(L) 0.80 - 1.30 mg/dL [facility] Glucose 86 70 - 199 mg/dL [facility] Comment: Interpretive Data Fasting glucose >/= 126 [...] 2022. Calcium 8.2(L) 8.5 - 10.3 mg/dL [facility] Bilirubin, total 0.4 0.1 - 1.2 mg/dL [facility] Protein, pl 7.1 6.5 - 8.5 g/dL [facility] Albumin 2.7(L) 3.5 - 5.0 g/dL [facility] Alk phos 104 40 - 130 Units/L [facility] ALT 36 7 - 55 Units/L [facility] AST 19 10 - 50 Units/L [facility] Blood 09/28/2024 1:54 PM CATERER HELPER 09/28/2024 2:19 PM CATERER HELPER Kathia Ruiz MD LAB BLOOD ORDERABLES Jessica l Result Performing Organization Address [facility] de Phone Number [facility] [place] [address] * Urine culture Urine, in and out catheter (09/28/2024 1:35 PM CATERER HELPER) Report Final Report: Less than 10,000 colonies/mL (clinically insignificant growth based on current clinical standards) Organism (CLINICALLY INSIGNIFICANT GROWTH [facility] Urine, in and out catheter 09/28/2024 1:35 PM CATERER HELPER 09/28/2024 4:19 PM CATERER HELPER Narrative [facility] - 09/29/2024 5:12 PM CATERER HELPER Indications for Culture:->Recent positive UA Specimen received in a sterile container. Testing performed by [facility] ([phone]) Kathia Ruiz MD LAB MICROBIOLOGY - GENERA L ORDERABLES Final Result Performing Organization Address [facility] Co de Phone Number [facility] [place] [address] * Urea nitrogen, urine, random (09/28/2024 1:07 PM CATERER HELPER) Urea nitrogen, ur 665 mg/dL Comment: Interpretive Data No reference range established. Current interpretive data was last revised 2019. Urine 09/28/2024 1:07 PM CATERER HELPER 09/28/2024 4:14 PM CATERER HELPER Kathia Ruiz MD LAB URINE ORDERABLES Jessica l Result Performing Organization Address [facility] Co de Phone Number [facility] [place] [address] * Sodium, urine, random (09/28/2024 1:07 PM CATERER HELPER) Sodium, ur 21 mmol/L Comment: Interpretive Data No reference range established. Current interpretive data was last revised 2019. Urine 09/28/2024 1:07 PM CATERER HELPER 09/28/2024 4:14 PM CATERER HELPER Kathia Ruiz MD LAB URINE ORDERABLES Jessica l Result Performing Organization Address [facility] de Phone Number [facility] [place] [address] * Osmolality, urine (09/28/2024 1:07 PM CATERER HELPER) Osmo, ur 631 mOsm/kg Urine 09/28/2024 1:07 PM CATERER HELPER 09/28/2024 4:12 PM CATERER HELPER Kathia Ruiz MD LAB URINE ORDERABLES Jessica l Result Performing Organization Address [facility] Co de Phone Number [facility] [place] [address] * Creatinine, urine, random (09/28/2024 1:07 PM CATERER HELPER) Creatinine Ur 185.5 mg/dL Comment: Interpretive Data No reference range established. Current interpretive data was last revised 2019. Urine 09/28/2024 1:07 PM CATERER HELPER 09/28/2024 4:14 PM CATERER HELPER Kathia Ruiz MD LAB URINE ORDERABLES Jessica l Result Performing Organization Address City/[facility] Co de Phone Number [facility] [place] [address] * ECG 12 lead (09/28/2024 11:11 AM CATERER HELPER) Ventricular Rate EKG/Min 91 BPM [facility] Atrial Rate 91 BPM [facility] SC-Interval (MSEC) 168 ms [facility] QRS-Interval (MSEC) 96 ms [facility] QT-Interval (MSEC) 348 ms [facility] QTc 428 ms [facility] P [place] 45 degrees [facility] R [place] 35 degrees [facility] T [place] -6 degrees [facility] Diagnosis Normal sinus rhythm Nonspecific T wave abnormality Abnormal ECG Confirmed by Viri HERRERA, [facility] ([id number]) on 10/03/2024 1:36:26 AM [facility] 09/28/2024 11:1 1 AM CATERER HELPER 10/03/2024 1:36 AM CATERER HELPER Kathia Ruiz MD ECG ORDERABLES Final Res ult Performing Organization Address City/[facility]/ZIP Co de Phone Number [facility] * (ABNORMAL) Urinalysis reflex to microscopic and culture Urine (09/28/2024 7:53 AM CATERER HELPER) Color, ur Yellow Yellow Clarity, ur Cloudy(A) Clear [facility] Specific gravity, ur >1.042(H) 1.003 - 1.030 [facility] pH, urine 6.5 [facility] Comment: Interpretive Data ? Urine pH is affected by diet, medications, systemic acid-base disturbances, and renal tubular function. ??pH may affect urinary stone formation. ??For example, urine pH below 6.0 may help reduce the tendency for calcium phosphate stones and pH greater than 6.0 may reduce the tendency for uric acid stone formation. Source: Anthony Xcelaero Current Interpretive Data was last revised on 2017 Protein, ur ql 2+(A) Negative [facility] Glucose, ur ql Negative Negative [facility] Ketones, ur 2+(A) Negative [facility] Bilirubin, ur Negative Negative [facility] Blood, ur Negative Negative [facility] Urobilinogen, ur <2.0 <2.0 mg/dL [facility] Nitrite, ur Positive(A) Negative [facility] Leukocyte esterase, ur 3+(A) Negative [facility] UA reflex comment Reflex to microscopic UA will be performed. [facility] Urine 09/28/2024 7:53 AM CATERER HELPER 09/28/2024 8:03 AM CATERER HELPER Adelina Galvan MD LAB MICROBIOLOGY - GENE RAL ORDERABLES Final Result Performing Organization Address [facility] Co de Phone Number [facility] [place] [address] * (ABNORMAL) Urinalysis, microscopic only (09/28/2024 7:53 AM CATERER HELPER) WBC, ur >50(A) 0 - 5 /HPF RBC, ur >50(A) 0 - 2 /HPF [facility] Epithelial cells, squamous, ur 6-10(A) 0 - 5 /HPF [facility] SYSTEM Comment:Suggestive of contam ination. Consider recollection by clean catch. Bacteria, ur 2+(A) [facility] Mucous, ur Present(A) [facility] Culture Reflex Comment Reflex to urine culture will be performed. [facility] Urine 09/28/2024 7:53 AM CATERER HELPER 09/28/2024 8:03 AM CATERER HELPER Adelina Galvan MD LAB URINE ORDERABLES Fi nal Result Performing Organization Address [facility] Co de Phone Number [facility] [place] [address] * (ABNORMAL) Urine culture Urine (09/28/2024 7:53 AM CATERER HELPER) Report Final Report: Growth indicates contamination with mixed bacterial meir. Please submit a new specimen with special attention given to the collection process and to prompt transport to the laboratory. (.) Organism GROWTH INDICATES CONTAMINATION WITH MIXED MEIR. [facility] Urine 09/28/2024 7:53 AM CATERER HELPER 09/28/2024 2:59 PM CATERER HELPER Narrative [facility] - 09/29/2024 10:59 PM CATERER HELPER Testing performed by [facility] ([phone]) Kathia Ruiz MD LAB MICROBIOLOGY - GENERA L ORDERABLES Final Result Performing Organization Address [facility] Co de Phone Number [facility] Department [place] [address] * Influenza A/B, RSV, and COVID-19 PCR Nasopharyngeal (09/28/2024 1:08 AM CATERER HELPER) [facility] COVID-19 RNA Negative Negative [facility] Influenza A RNA Negative Negative [facility] Influenza B RNA Negative Negative [facility] RSV RNA Negative Negative [facility] Comment: Interpretive data: Testing performed by [facility] ([phone]). This test is performed using the [employer] Xpert Xpress CoV-2/Flu/RSV plus assay. This is a multiplex, real-time reverse transcriptase PCR assay intended for the qualitative detection of nucleic acid from SARS-CoV-2, influenza A, influenza B, and respiratory syncytial virus. This assay has been cleared by the [place] Food and Drug administration. The performance characteristics have been verified by the [facility]. ??Results must be considered in the clinical context, and a negative result does not rule out infection. Interpretive Data last revised 2023 Nasopharyngeal 09/28/2024 1: 08 AM CATERER HELPER 09/28/2024 1:18 AM CATERER HELPER N[facility]ative [facility] - 09/28/2024 2:01 AM CATERER HELPER Is the Patient experiencing symptoms consistent with COVID?->Yes us Chula Tate MD LAB MICROBIOLOGY - GENERAL ORDERABLES Final Result Performing Organization Address [facility]/ZIP Co de Phone Number [facility] Department [place] [address] [facility] * CT Abdomen Pelvis W Contrast (09/27/2024 11:35 PM CATERER HELPER) Anatomical Region Laterality Modality Body N/A Computed Tomogra phy 09/28/2024 12:1 8 AM CATERER HELPER Impressions 09/28/2024 8:01 AM CATERER HELPER 1. ??Cutaneous tract extending from bilateral gluteal [...] Cipriano Vergara M.D. Narrative 09/28/2024 8:01 AM CATERER HELPER EXAMINATION: ??Computed tomography of the abdomen and [...] Cipriano Vergara M.D. Adelina Galvan MD IMG CT PROCEDURES Final Result * Sepsis Lactate w/ Reflex (09/27/2024 10:32 PM CATERER HELPER) Sepsis Lactate 1.6 0.7 - 2.0 mmol/L Blood 09/27/2024 10:3 2 PM CATERER HELPER 09/27/2024 10:37 PM CATERER HELPER Adelina Galvan MD LAB BLOOD ORDERABLES Fi nal Result [facility] [place] [address] * Blood culture Blood Peripheral (09/27/2024 10:32 PM CATERER HELPER) Report Final Report: No growth Blood (Peripheral) 09/27/2024 10:32 PM CATERER HELPER 09/27/2024 10:39 PM CATERER HELPER Narrative [facility] - 10/02/2024 7:00 AM CATERER HELPER From a different site than #1. Draw [...] organism identification may be performed using the [employer] Gram-Positive Blood Culture Assay. This assay detects microbial DNA in positive blood culture broth via hybridization of target DNA to capture oligonucleotides on a microarray. This assay has been cleared by the [place] Food and Drug Administration and its performance characteristics have been verified by the [facility]. 5. ?For questions about this culture, contact the Microbiology Laboratory at [phone]. Interpretive data was last revised on 2020. us Adelina Galvan MD LAB MICROBIOLOGY - GENE RAL ORDERABLES Final Result [facility]AN OLIVIA [facility] Department [place] [address] * XR Chest 1 Vw Portable (09/27/2024 10:21 PM CATERER HELPER) Anatomical Region Laterality Modality Body, Chest N/A Computed Radiogr aphy 09/28/2024 12:4 2 AM CATERER HELPER Impressions 09/28/2024 8:01 AM CATERER HELPER Comparison is made to prior chest radiograph [...] Cipriano Vergara M.D. Narrative 09/28/2024 8:01 AM CATERER HELPER EXAMINATION: 1 view chest radiograph Procedure Note [...] Sepsis Lactate w/ Reflex (09/27/2024 7:59 PM CATERER HELPER) Sepsis Lactate 3.6(H) 0.7 - 2.0 mmol/L Blood 09/27/2024 7:59 PM CATERER HELPER 09/27/2024 8:08 PM CATERER HELPER us Adelina Galvan MD LAB BLOOD ORDERABLES Fi nal Result Performing Organization Address [facility] de Phone Number [facility] RON[facility] Department [place] [address] * eGFR (09/27/2024 7:59 PM CATERER HELPER) eGFR >90 >=60 mL/min/1. 73 m2 Comment: [...] last reviewed 2021. Blood 09/27/2024 7:59 PM CATERER HELPER 09/27/2024 8:29 PM CATERER HELPER us Adelina Galvan MD LAB BLOOD ORDERABLES Fi nal Result Performing Organization Address [facility]/ZIP Co de Phone Number [facility] OLIVIA [facility] Department [place] [address] * (ABNORMAL) Differential, auto (09/27/2024 7:59 PM CATERER HELPER) Neutrophil abs 21.9(H) 1.5 - 6.5 K/cumm Imm gran abs 0.2(H) 0.0 - 0.1 K/cumm [facility] Lymphocyte abs 1.4 0.8 - 3.3 K/cumm [facility] Monocyte abs 0.6 0.2 - 0.8 K/cumm [facility] Eosinophil abs 0.1 0.0 - 0.5 K/cumm [facility] Basophil abs 0.0 0.0 - 0.1 K/cumm [facility] Neutrophil pct 90.5 % [facility] Comment: Interpretive Data Percent cell count reference ranges are not reported, since discordance with absolute values may lead to misinterpretation of CBC data. Current Interpretive Data was last revised on 2018. Imm gran pct 1.0 % [facility] Comment: Interpretive Data Percent cell count reference ranges are not reported, since discordance with absolute values may lead to misinterpretation of CBC data. Current Interpretive Data was last revised on 2018. Lymphocyte pct 5.6 % [facility] Comment: Interpretive Data Percent cell count reference ranges are not reported, since discordance with absolute values may lead to misinterpretation of CBC data. Current Interpretive Data was last revised on 2018. Monocyte pct 2.4 % [facility] Comment: Interpretive Data Percent cell count reference ranges are not reported, since discordance with absolute values may lead to misinterpretation of CBC data. Current Interpretive Data was last revised on 2018. Eosinophil pct 0.3 % [facility] Comment: Interpretive Data Percent cell count reference ranges are not reported, since discordance with absolute values may lead to misinterpretation of CBC data. Current Interpretive Data was last revised on 2018. Basophil pct 0.2 % [facility] Comment: Interpretive Data Percent cell count reference ranges are not reported, since discordance with absolute values may lead to misinterpretation of CBC data. Current Interpretive Data was last revised on 2018. Blood 09/27/2024 7:59 PM CATERER HELPER 09/27/2024 8:26 PM CATERER HELPER Adelina Galvan MD LAB BLOOD ORDERABLES Fi nal Result Performing Organization Address [facility] Co de Phone Number [facility] [place] [address] * (ABNORMAL) CBC with auto differential (09/27/2024 7:59 PM CATERER HELPER) WBC 24.2(H) 3.8 - 9.9 K/cumm Hgb 10.7(L) 13.0 - 17.5 g/dL [facility] Hct 35.3(L) 38.9 - 50.3 % [facility] Plt 463(H) 150 - 400 K/cumm [facility] MPV 10.9 9.1 - 12.3 fL [facility] RBC 4.83 4.30 - 5.80 M/cumm [facility] MCV 73.1(L) 81.3 - 96.4 fL [facility] MCH 22.2(L) 27.1 - 33.3 pg [facility] MCHC 30.3(L) 32.3 - 35.7 g/dL [facility] RDW CV 17.2(H) 11.1 - 14.9 % [facility] RDW SD 45.4 35.7 - 48.1 fL [facility] NRBC abs 0.00 0.00 - 0.01 K/cumm [facility] Blood 09/27/2024 7:59 PM CATERER HELPER 09/27/2024 8:26 PM CATERER HELPER Adelina Galvan MD LAB BLOOD ORDERABLES Fi nal Result Performing Organization Address [facility] Co de Phone Number [facility] [place] [address] * Blood culture Blood Peripheral (09/27/2024 7:59 PM CATERER HELPER) Report Final Report: No growth Blood (Peripheral) 09/27/2024 7:59 PM CATERER HELPER 09/27/2024 8:11 PM CATERER HELPER Narrative [facility] RON[facility]ILL[facility] - 10/02/2024 7:00 AM CATERER HELPER Draw Blood cultures before administration of Antibiotics [...] organism identification may be performed using the [employer] Gram-Positive Blood Culture Assay. This assay detects microbial DNA in positive blood culture broth via hybridization of target DNA to capture oligonucleotides on a microarray. This assay has been cleared by the [place] Food and Drug Administration and its performance characteristics have been verified by the [facility]. 5. ?For questions about this culture, contact the Microbiology Laboratory at [phone]. Interpretive data was last revised on 2020. us Adelina Galvan MD LAB MICROBIOLOGY - GENE [facility] ORDERABLES Final Result [facility] [place] [address] * (ABNORMAL) Comprehensive metabolic panel (09/27/2024 7:59 PM CATERER HELPER) Sodium 132(L) 135 - 145 mmol/L Potassium, pl 4.3 3.3 - 4.9 mmol/L [facility] Comment:Hemolyzed; Potassium value may be falsely elevated by as much as 0.3-0.5 mmol/L. Suggest redraw and reanalysis. Chloride 96(L) 97 - 110 mmol/L [facility] CO2 21(L) 22 - 32 mmol/L [facility] Anion gap 15 2 - 15 mmol/L [facility] BUN 7 6 - 25 mg/dL [facility] Creatinine 0.74(L) 0.80 - 1.30 mg/dL [facility] Glucose 74 70 - 199 mg/dL [facility] Comment: Interpretive Data Fasting glucose >/= 126 [...] 2022. Calcium 9.4 8.5 - 10.3 mg/dL [facility] Bilirubin, total 0.8 0.1 - 1.2 mg/dL [facility] Protein, pl 9.6(H) 6.5 - 8.5 g/dL [facility] Albumin 3.4(L) 3.5 - 5.0 g/dL [facility] Alk phos 143(H) 40 - 130 Units/L [facility] ALT 71(H) 7 - 55 Units/L [facility] AST 47 10 - 50 Units/L [facility] Comment:Hemolyzed; result ma y be falsely elevated Blood 09/27/2024 7:59 PM CATERER HELPER 09/27/2024 8:29 PM CATERER HELPER us Adelina Galvan MD LAB BLOOD ORDERABLES Fi nal Result [facility] Department [place] [address] from Last 3 Months Additional Health Concerns Infection Onset Date Last 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 Source: [facility] [employer]. 11/17/2023 [place] [address] MEDICARE [facility] [place] [address] [place] [address] MEDICARE [employer] [facility] MEDICARE IDPA Advance Directives For more information, please contact: [phone] * Full Code (Latest Code Status on File) Date Activated Date Inactivated Comments 08/06/2021 1:00 PM 08/11/2021 10:46 PM * Full Code Date Activated Date Inactivated Comments 05/22/2021 1:38 PM 05/28/2021 5:06 AM * Full Code Date Activated Date Inactivated Comments 03/28/2021 5:17 PM 04/12/2021 12:02 AM * Full Code Date Activated Date Inactivated Comments 01/10/2019 10:30 PM 01/24/2019 4:31 PM Care Teams Hairspring Studder Relationship Specialty Start Date End Date Rick Carpio MD [address] [place] [address] PCP - General Internal Medicine 10/03/24
--- OUTSIDE RECORDS SUMMARY | 2024-12-01 19:46 | XMS_ITS | Clinical Summary ---
Author Organization [facility] [employer] Address [address] [place] [address] Care Team Providers Care Business Continuity Planning Director Name Role Phone Rick Carpio MD Primary Care Provider [phone] Source Comments [facility] [employer],non-owned Affiliates and Associated Physician Practices is amultiple site organization consisting of ambulatory clinics and hospital sitesin [place], [place], [place] and [place]. This disclosure is being madepursuant to the Care Everywhere program and may not contain all information available regarding this patient. Last updated 18.[facility] [employer] Allergies Active Allergy Reactions Criticality Noted Date [...] naloxone HCl (Narcan) 4 MG/0.1ML nasal spray [place] 1 (one) spray into the nose as [...] [facility] [address] [place] [address] Sabi Payne MD Appointment 09/25/2024 1:21 PM [employer] Anesthesia Event [facility] ENDOSCOPY [address] [place] [phone] Dafne Heller MD Buchheit, Rachel E, PROSTHETIC DENTIST-FITTER WELDER 09/25/2024 12:30 PM [employer] - 09/25/2024 1:15 PM [employer] Surgery [facility] ENDOSCOPY [address] [place] [phone] Azar Begum MD COLONOSCOPY DIAGNOSTIC---extend ed 2 day prep----check portable KUB in pre op please!! 09/25/2024 11:40 AM [employer] - 09/25/2024 2:32 PM [employer] Hospital Encounter [facility] REUBEN OP [address] [place] [phone] Azar Begum MD Surgery General Discharge Disposition: Home or Self Care 09/25/2024 Travel 09/20/2024 Patient Outreach [facility] ENDOSCOPY [address] [place] [phone] Wendy Loaiza, RN 09/16/2024 Orders Only [facility] ENDOSCOPY [address] [place] [phone] Wendy Loaiza, RN from Last 3 Months [...] Comments Blood Pressure 109/59 09/25/2024 2:00 PM [employer] Pulse 86 09/25/2024 2:00 PM [employer] Temperature 36.6 ??C (97.8 ??F) 09/25/2024 1:45 PM CS T Respiratory Rate 14 09/25/2024 2:00 PM [employer] Oxygen Saturation 100% 09/25/2024 2:00 PM [employer] Inhaled Oxygen Concentration - - Weight 132.5 kg (292 lb) 09/25/2024 12:41 PM [employer] Height 165.1 cm (5' 5 ) 09/25/2024 12:41 PM [employer] Body Mass Index 48.59 09/25/2024 12:41 PM [employer] Plan of Treatment Health Maintenance Due Date [...] patient's age to complete this topic MENINGOCOCCAL (Group B) VACCINE Aged Out No longer eligible based on [...] track( 024 10:53 AM CDT) No Sandy Nayak RN Note: Expected end date: Ongoing Interventions: Take all medications as prescribed Let your doctor know right away about any changes in your medications Make sure to request a refill of your medication at least one week prior to your last dose Procedures Procedure Name Priority Date/Time Associated Diagnosis Comments [place] COLONOSCOPY, DIAGNOSTIC 09/25/2024 1:16 PM [employer] Other constipation XR ABDOMEN KUB PORTABLE STAT 09/25/2024 1:14 PM [employer] Constipation, unspecified constipation type ENDOSCOPY, COLON, DIAGNOSTIC Routine 09/25/2024 12:25 PM [employer] RENAL FUNCTION PANEL AM Draw 08/26/2019 5:13 AM CDT Mass of spine from Last 3 Months or Most Recently Relevant to Health Maintenance Results * XR Abdomen Kub Portable (09/25/2024 1:14 PM [employer]) Anatomical Region Laterality Modality Abdomen Digital Radiogra phy 09/25/2024 1:14 PM [employer] Impressions 09/25/2024 6:16 PM [employer] IMPRESSION: Nonobstructive bowel gas pattern. Mild colonic stool burden. > Dictated by Nidhi Hou MD, (director of residential services). I, Myles Lees MD have personally reviewed and interpreted this examination/study. > Interpreting Provider: Myles Lees MD on 09/25/2024 6:16 PM Narrative 09/25/2024 6:16 PM [employer] PROCEDURE: ??XR ABDOMEN KUB PORTABLE DATE/TIME OF [...] burden. > Dictated by Nidhi Hou MD, (director of residential services). I, Myles Lees MD have personally reviewed and interpreted this examination/study. > Interpreting Provider: Myles Lees MD on 09/25/2024 6:16 PM Azar Begum MD DIAGNOSTIC [facility] ORDERABLES * ENDOSCOPY, COLON, DIAGNOSTIC (09/25/2024 12:25 PM [employer]) Report Endoscopy POC Endoscopy Department Report _ [...] Procedure Code(s): ? --- Professional --- ? 53260, 53, Colonoscopy, flexible; diagnostic, including collection of ? specimen(s) by brushing or washing, when performed (separate procedure) Diagnosis Code(s): ?--- Professional --- ?Z12.11, Encounter for screening for malignant ?neoplasm of colon CPT copyright 2021 [employer]. All rights reserved. The codes documented in this report are preliminary and upon corporate account executive review may be revised to meet current compliance requirements. Azar Begum, 09/25/2024 1:40:42 PM Note Initiated On: 09/25/2024 12:25 PM Number of Addenda: 0 ? [facility] ? [address] [place], [place] [id number] [place] [address] 09/25/2024 12:2 5 PM [employer] Azar Begum MD GI PROCEDURE O RDERABLES [facility] * (ABNORMAL) RENAL FUNCTION PANEL (08/26/2019 5:13 AM CDT) BUN 18 7 - 26 mg/dL 08/26/2019 5:52 AM [facility] Creatinine 0.6 0.6 - 1.2 mg/dL 08/26/2019 [...] 2.3 - 4.7 mg/dL 08/26/2019 5:52 AM [facility] Anion Gap 13 8 - 18 08/26/2019 5:52 AM [facility] BUN/Creatinine Ratio 30(H) 7 - 23 08/26/2019 5:52 AM [facility] Osmolality Calculated 290 270 - 300 mOsm/kg 08/26/2019 5:52 AM [facility] eGFR >60 >60 mL/min/1.7 3 m2 08/26/2019 5:52 AM [facility] Blood BLOOD SPECIMEN / Unknown Lab Venipuncture / Unknown 08/26/2019 5:13 AM CDT 08/26/2019 5:19 AM T Sarah Andrade MD LAB - CHEMISTRY ELPIDIO VENEGAS [facility] Organization Address City/State/ZIP Co de Phone Number [facility] [address] [phone] from Last 3 Months or Most Recently Relevant to Health Maintenance Additional Health Concerns Infection Onset Date Last Indicated ESBL GNR 11/17/2023 11/17/2023 MDRO 11/17/2023 11/17/2023 Advance Directives Documents on File Type Date Recorded Patient Textile Bag Sewer Expl anation Adv Directive/Living Will/POA 09/04/2019 6:07 AM * Full Code (Latest Code Status on File) Date Activated Date Inactivated Comments 08/10/2019 6:43 AM 08/26/2019 6:47 PM Care Teams Business Continuity Planning Director Relationship Specialty Start Date End Date Rick Carpio MD [address] [place] [phone] PCP - General Internal Medicine 06/29/24
[2024-12-01 20:41] LABS: Basophils Percent Auto 0.4 % (0.2-1.2); Eosinophils Percent Auto 0.1 % (0-4.4); Hematocrit 37.4 % (42.0-52.0); Hemoglobin 11.2 g/dL (14.0-18.0); Immature Granulocyte Absolute 0.05 K/mm3 (0.00-0.031); Immature Granulocyte Percent A 0.5 % (0-0.5); Lymphocytes Percent Auto 11.6 % (18.3-44.2); Mean Corpuscular HGB Conc 29.9 g/dl (32-36); Mean Corpuscular Hemoglobin 21.3 pg (26-34); Mean Corpuscular Volume 71.1 fl (80-100); Mean Platelet Volume 10.8 fl (7.4-10.4); Monocytes Absolute Auto 0.3 K/mm3 (0.1-0.6); Monocytes Percent Auto 2.7 % (2.6-8.5); Neutrophils Absolute Auto 8.1 K/mm3 (1.3-6.7); Neutrophils Percent Auto 84.7 % (45.5-73.1); Platelet Count Result 346 k/mm3 (150-375); Red Blood Count 5.26 M/mm3 (4.6-6.20); Red Cell Distribution Width 18.5 % (11.5-14.5); White Blood Count 9.5 K/mm3 (4.5-10.0)
[2024-12-01] MEDS: SODIUM CHLORIDE 0.9% IV 1,000 ML 999 ML IV CONT (20:41)
[2024-12-01] MEDS: HYDROmorphone HCL INJ (*CRX) 1 MG/ML SYR IV PUSH ×2 (20:41→23:33)
[2024-12-01] MEDS: ONDANSETRON INJ 4 MG/2 ML VIAL IV PUSH ×2 (20:41→22:25)
[2024-12-01 20:52] LABS: Alanine Aminotransferase 24 U/L (6-50); Albumin Level 4.2 g/dL (3.5-5.1); Alkaline Phosphatase 126 U/L (38-126); Anion Gap 15 mmol/L (4-12); Aspartate Amino Transferase 21 U/L (17-59); Bilirubin,Total 0.6 mg/dL (0.2-1.3); Blood Urea Nitrogen 15 mg/dL (9-20); Calcium 8.7 mg/dL (8.4-10.2); Carbon Dioxide 19 mmol/L (22-30); Chloride 108 mmol/L (98-107); Estimated CRCL calculation 176 ml/min; Estimated Glomerular Filt Rate > 60; Glucose 118 mg/dL (65-110); Lipase 167 U/L (23-300); Potassium 3.1 mmol/L (3.4-5.0); Sodium 142 mmol/L (137-145)
[2024-12-01 20:53] LABS: Lactic Acid Reflex 1.8 mmol/L (0.7-2.0)
[2024-12-01 21:08] LABS: Procalcitonin 0.1 ng/mL
[2024-12-01 21:10] LABS: Microcytosis 1+ (NORMAL); Platelet Estimate Adequate (Adequate)
[2024-12-01 21:11] LABS: Hypochromasia 1+; Schistocytes None Seen
[2024-12-01 23:45] LABS: Add Urine Microscopic? YES; Appearance Urine Cloudy (Clear); Bacteria Urine 4+ /hpf; Bilirubin Urine Negative (Negative); Blood Urine Negative (Negative); Color Urine Yellow (Yellow); Glucose Urine UA Negative (Negative); Ketones Urine Trace mg/dL (Negative); Leukocyte Esterase Ur 2+ LEU/UL (Negative); Need Manual Microscopic Reviewed; Nitrate Urine Negative (Negative); Protein Urine 1+ mg/dL (Negative); RBC Urine 0-2 /hpf (0-2); Specific Grav Ur 1.015 (1.001-1.035); Squamous Epithelial Cell Urine Occasional /hpf (Few); Urobilinogen Urine 0.2 mg/dL (<2.0); WBC Urine 51-100 /hpf (0-3)
[2024-12-02] VITALS (44 sets, daily range): BP systolic 56–159; BP diastolic 14–108; PULSE 59–108; RESP 10–20; O2SAT 96–100
[2024-12-02] MEDS: HYDROmorphone HCL INJ (*CRX) 1 MG/ML SYR IV PUSH (06:56)
[2024-12-02] MEDS: HEPARIN SODIUM LOCK FLUSH 500 UNITS/5 ML SYRINGE (09:04)
== END 2024-12-02 09:06 ==
PROVIDERS: Emergency Medicine; Emergency Provider Emergency Medicine; PCP Internal Medicine
DX: R10.9 Unspecified abdominal pain (principal); Z79.899 Other long term (current) drug therapy; I10 Essential (primary) hypertension; G82.20 Paraplegia, unspecified; Z87.891 Personal history of nicotine dependence; Z89.512 Acquired absence of left leg below knee; Z89.511 Acquired absence of right leg below knee; Z90.49 Acquired absence of other specified parts of digestive tract; R82.998 Other abnormal findings in urine
CPT/HCPCS: 36415; 70450; 74177; 80053; 81001; 83605; 83690; 84145; 85025; 87086; 87186; 93005; 96361; 96374; 96375; 96376; 99284; J1171; J2405; J7030; Q9967

== ENCOUNTER 2025-03-14 18:41 | Inpatient (IN) | payer MEDICARE, MEDICAID, SELFPAY ==
--- NOTE | ~2025-03-14 | MR_ITS ---
EXAMINATION: MR brain/brain stem wo/w con DATE: 03/16/2025 12:50 INDICATION: New onset seizure chest order and intermittent headache. TECHNIQUE: Magnetic resonance imaging (MRI) of the brain and brainstem was performed without and with 20 mL ProHance intravenous contrast. Sequences included sagittal and axial T1-weighted SE, axial dif fusion-weighted FS SE, axial 3-D SWAN, axial T2-weighted FLAIR Propeller, axial T2-weighted Propeller , coronal T2-weighted FLAIR, and coronal T1-weighted 3D FSPGR. Postcontrast axial T1-weighted SE was obtained. Apparent diffusion coefficient (ADC) maps were created. COMPARISON: None. FINDINGS: There are no areas of restricted diffusion to suggest acute infarction. No intracranial hemorrhage or abnormal intracranial mass lesion. There are no intraparenchymal signal abnormalities seen on the ot her pulse sequences. The hippocampi are normal and symmetric. There are no areas of abnormal enhancem ent on postcontrast imaging. No evident caicedo matter heterotopias or other neuronal migrational abnorm alities. The ventricles are symmetric and normal in size. There are no abnormal extra-axial fluid col lections. Flow voids are seen in the cerebral arteries on the T2-weighted sequences consistent with t heir expected patency. Visualized orbits and soft tissues are unremarkable. Mild mucosal thickening t he bilateral ethmoid sinuses and mucous retention cyst at the left maxillary sinus. IMPRESSION: 1. Normal brain with no acute intracranial process, abnormal enhancing brain lesions or evident neuro nal migrational abnormalities. Reviewed, dictated and finalized at location A. IMPRESSION: 1. Normal brain with no acute intracranial process, abnormal enhancing brain le sions or evident neuronal migrational abnormalities.
--- NOTE | ~2025-03-14 | XR_ITS ---
XR chest 1V portable Ordering provider: Marck Schreiber PA-C History: 39 years Male with . diaphoretic . Comparison: March 15, 2025 FINDINGS: MEDIASTINUM: The cardiac silhouette is slightly enlarged. Right Port-A-Cath with the tip overlying th e superior vena cava. LUNGS: No effusions or pneumothorax. Opacification in the left lung base suggestive of atelectasis ve rsus pneumonia. OTHER: No free air under the diaphragm. IMPRESSION: Left basilar atelectasis versus pneumonia. Reviewed, dictated and finalized at location A.
--- NOTE | ~2025-03-14 | XR_ITS ---
CHEST RADIOGRAPH CLINICAL HISTORY: tachycardia . COMPARISON: 11/04/2024 TECHNIQUE: Single portable view of the chest. FINDINGS Right internal jugular central venous port catheter with its tip projecting over the cavoatrial junct ion. The remainder of the cardiomediastinal silhouette is otherwise unremarkable. The lungs are clear. IMPRESSION: No focal infiltrate or effusion. Reviewed, dictated and finalized at location A.
--- NOTE | ~2025-03-14 | CT_ITS ---
CT of the Abdomen and Pelvis: Indication: Abdominal pain Technique: 2.5 mm axial scans were obtained through the abdomen and pelvis following intravenous adm inistration of 100 cc of Omnipaque 350. Dose reduction technique was used on this scan by utilizing a utomated exposure control and iterative reconstruction technique. The dose-length product (DLP) was 1 396.38 mGy-cm. COMPARISON: 12/01/2024 Findings: Scans through the lung bases are unremarkable. The liver, spleen, pancreas, adrenals and kidneys are within normal limits. Cholecystectomy clips are present. No evidence of aortic aneurysm. IVC filter in place. No lymphadenopathy. Evidence of partial colectomy with left lower quadrant ostomy present. No bowel obstruction evident. Images through the pelvis were performed. Probable urinary bladder wall thickening, similar to prior exam. No other pelvic mass evident. No ascites. Probable decubitus ulcer at the left buttock region overlying the left ischial tuberosity. There is s evere degenerative change of both hip joints with bridging heterotopic ossification from the proximal right femur to the acetabulum. There is near bridging heterotopic ossification at the left hip joint . There is probable ankylosis of the SI joints. Impression: Decubitus ulcer to left buttock region overlying the left ischial tuberosity. No definite osteomyelit is or abscess. Correlate with physical exam. Suspected cystitis. Extensive degenerative changes of the pelvis/hips, as detailed above, similar to prior exam. Reviewed, dictated and finalized at [facility]. Impression: Decubitus ulcer to left buttock region overlying the left ischial tuberosity. N o definite osteomyelitis or abscess. Correlate with physical exam. Suspected cystitis. Extensive degenerative changes of the pelvis/hips, as detailed above, similar t o prior exam.
--- NOTE | ~2025-03-14 | CT_ITS ---
History: Altered mental status PROCEDURE: CT head without contrast. COMPARISON: 12/01/2024 TECHNIQUE: Axial imaging of the head performed from the skull base to the vertex without IV contrast. Sagittal a nd coronal reformations obtained. DLP: 681 mGy-cm FINDINGS: The ventricles are normal in size, shape and position. There is no mass, mass effect or midline shift. There is no abnormal extra-axial fluid collection or intracranial hemorrhage. Retention cyst within the left maxillary sinus. Remaining paranasal sinuses are clear. The mastoid air cells are well aerated. No acute displaced fractures within the overlying cranium. Impression: No acute intracranial hemorrhage or suspicious mass effect. Reviewed, dictated and finalized at location A. Impression: No acute intracranial hemorrhage or suspicious mass effect.
[2025-03-14 18:45] VITALS: BP 115/66; PULSE 89; RESP 28; TEMP 36.4; O2SAT 100
--- OUTSIDE RECORDS SUMMARY | 2025-03-14 19:01 | XMS_ITS | Clinical Summary ---
Author Organization [facility] Address [address], [facility] [address] [place] [address] Phone Care Team Providers Care General Internal Medicine Physician Name Role Phone Unavailable Primary Care Provider [...] of 3 - 19+ 3-dose series) 2002 Influenza Immunization (#1) 2024 SARS-COV-2 Immunization (2023- season) 2024 01/26/2022, 02/07/2021 Respiratory Syncytial Virus (RSV) Immunization (Adult) (1 - 1-dose 75+ series) 2058 Meningococcal Immunization (ACWY) Aged Out No longer eligible b ased on patient's age to complete this topic Pneumococcal Immunization Combined Aged Out No longer eligible b ased on patient's age to complete this topic Rotavirus Immunization Aged Out No lo nger eligible based on patient's age to complete this topic Insurance MEDICAID [employer]
--- OUTSIDE RECORDS SUMMARY | 2025-03-14 19:01 | XMS_ITS | Encounter Summary ---
Author Organization [facility] Healthcare Address [address] [place] [address] Care Team Providers Care Certified Fire Investigator Name Role Phone Saw Louie MD Primary Care Provider [phone] Megan Arguelles MD Primary Care Provider Silverio Germain MD Primary Care Provider [phone] Rick Carpio MD Primary Care Provider Anastacia Salas MD Primary Care Provider [phone] Trino Tracy MD Unavailable [phone] Encounter Details Date Type Department Care Team (Late st Contact Info) Description 05/29/2021 Telephone [facility] [address] [place] [address] Petr Gresham, PARAM Social History Tobacco Use Types Packs/Day [...] on file Legal Sex Male 5:38 AM CALL CENTER ANALYST Gender Identity Male 05/21/2022 3:19 PM [...] at this time. 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 Source: [facility] [place]. 11/17/2023 COVID: Suspected 09/28/2024 09/28/2024 09/28/2024 2:02 AM CALL CENTER ANALYST C. difficile suspected 10/05/2024 10/05/202410/06 5:07 AM CALL CENTER ANALYST documented as of this encounter Care Teams Certified Fire Investigator Relationship Specialty Start Date End Date Saw Louie MD [address] [place] [address] PCP - General 03/31/21 07/13/22 [place] [address] [place] [address] PCP - General 07/14/22 05/11/23 Silverio Germain MD [address] [address] PCP - General Emergency Medicine 05/12/23 10/02/24 Rick Carpio MD [address] [place] [address] PCP - General Internal Medicine 10/03/24 01/30/25 Anastacia Salas MD [address] [facility] [address] PCP - General Internal Medicine 01/31/25 Trino Tracy MD [phone] [place] [address] Surgeon Colon and Rectal Surgery 01/31/25 documented as of this encounter
--- OUTSIDE RECORDS SUMMARY | 2025-03-14 19:01 | XMS_ITS | Encounter Summary ---
Author Organization [facility] Address [address] [place] [address] Phone Care Team Providers Care Surgery Teacher Name Role Phone Rick Carpio MD Primary Care Provider Anastacia Salas MD Primary Care Provider [phone] Trino Tracy MD Unavailable [phone] Encounter Details Date Type Department Care Team (Late st Contact Info) Description 10/04/2024 Documentation [facility] Infectious Diseases [address] [place] [phone] Derick Camargo MD [address] [place] [address] [address] [place] [address] Social History Tobacco Use Types Packs/Day Years [...] any clubs o r organizations such as synagogue groups, unions, fraternal or athletic groups, or [...] place to sleep or slept in a care home (including now)? No 08/07/2021 Personal Safety Answer Date Recorded Have you ever been in or are you currently in a harmful physical or emotional relationship or is someone making you feel afraid or unsafe? Denies 09/28/2024 Sex and Gender Information Value Date Recorded Sex Assigned at Not on file Legal Sex Male 5:38 AM FURNACE MASON Gender Identity Male 05/21/2022 3:19 PM CDT [...] The following patient is being discharged from [facility] or [facility] on IV antibiotics. Please see below for recommendations from the Infectious Diseases inpatient consult teamregarding management. 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 Source: [facility] Interview. 11/17/2023 C. difficile suspected 10/05/2024 10/05/202410/06 5:07 AM FURNACE MASON documented as of this encounter Care Teams Surgery Teacher Relationship Specialty Start Date End Date Rick Carpio MD [address] [place] [address] PCP - General Internal Medicine 10/03/24 01/30/25 Anastacia Salas MD [address] [facility] [address] PCP - General Internal Medicine 01/31/25 Trino Tracy MD [address] [facility] [phone] [place] [address] Surgeon Colon and Rectal Surgery 01/31/25 documented as of this encounter
--- OUTSIDE RECORDS SUMMARY | 2025-03-14 19:01 | XMS_ITS | Encounter Summary ---
Author Organization [facility] Address [address] [place] [address] Phone Care Team Providers Care Cad Cam Programmer Name Role Phone Rick Carpio MD Primary Care Provider Anastacia Salas MD Primary Care Provider [phone] Trino Tracy MD Unavailable [phone] Encounter Details Date Type Department Care Team (Late st Contact Info) Description 10/04/2024 Treatment [facility] Infectious Diseases [address] [place] [phone] Derick Camargo MD [address] [place] [address] [address] [place] [address] Social History Tobacco Use Types Packs/Day Years [...] often do you attend chur ch or worship services? Never 08/07/2021 Do you belong to any clubs o r organizations such as hinduism groups, unions, fraternal or athletic groups, or [...] place to sleep or slept in a fdc (including now)? No 08/07/2021 Personal Safety Answer Date Recorded Have you ever been in or are you currently in a harmful physical or emotional relationship or is someone making you feel afraid or unsafe? 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 Source: [facility]. 11/17/2023 C. difficile suspected 10/05/2024 10/05/202410/06 5:07 AM MANAGER IMAGING documented as of this encounter Care Teams Cad Cam Programmer Relationship Specialty Start Date End Date Rick Carpio MD [address] [place] [address] PCP - General Internal Medicine 10/03/24 01/30/25 Anastacia Salas MD [address] [facility] [address] PCP - General Internal Medicine 01/31/25 Trino Tracy MD [address] [facility] [phone] [place] [address] Surgeon Colon and Rectal Surgery 01/31/25 documented as of this encounter
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
--- OUTSIDE RECORDS SUMMARY | 2025-03-14 19:02 | XMS_ITS | Clinical Summary ---
Author Organization [facility] [employer] Address [address] [place] [address] Care Team Providers Care Aircraft Instrument Mechanic Name Role Phone Rick Carpio MD Primary Care Provider [phone] Source Comments [facility],non-owned Affiliates and Associated Physician Practices is amultiple site organization consisting of ambulatory clinics and hospital sitesin [place], [place], [place] and [place]. This disclosure is being madepursuant to the Care Everywhere program and may not contain all information available regarding this patient. Last updated 18.[facility] [employer] [employer] Allergies Active Allergy Reactions Criticality Noted Date Comments Metoclopramide Angioedema,Anaphylaxis High 9 Medications * Be aware that medications may not be up to date on this document. Alwaysverify current medications with the patient. busPIRone (BUSPAR) 10 MG tablet Take 7.5 [...] by mouth every 6 hours as needed 1 Active NIFEdipine CR osmotic 24hr (Procardia-XL) 60 MG tablet Take 1 (one) tablet by mouth once daily Active potassium chloride ER (Klor-Con M) 20 MEQ tablet Take 2 (two) tablets by mouth once daily 3 Active cloNIDine (Catapres) 0.3 MG/24HR patch Apply 1 (one) patch to skin every 7 days Active Relistor 150 MG tablet Take 1 (one) tablet by mouth daily before breakfast May increase to BID if constipation persist. 4 Active oxyCODONE-aceta minophen (Percocet) 10-325 MG tablet Take 1 (one) tablet by mouth every 4 hours as needed for Pain Active naloxone HCl (Narcan) 4 MG/0.1ML nasal spray [place] 1 (one) spray into the nose as needed Active polyethylene glycol (Gavilyte-C) 240 g solution Drink half of prep solution at 5pm the night before colonoscopy. Finish the prep at 4am the day of test. 4000 mL 4 Active polyethylene glycol 3350 (Miralax) 17 GM/SCOOP powder Take a dose twice a day a week before your colonoscopy 238 g 4 Active magnesium citrate solution Drink at 5pm 2 nights before your colonoscopy 300 mL 4 Active bisacodyl EC (Dulcolax) 5 MG tablet Take 4 tablets orally at 2 nights before your colonoscopy. Take 4 tablets orally at noon the day before your colonoscopy 8 tablet 4 Active ALPRAZolam (Xanax) 2 MG tablet Take [...] at Not on file Legal Sex Male 7:28 PM CDT Gender Identity Not on file Sexual Orientation Not on file Last Filed Vital Signs Vital Sign Reading Time Taken Comments Blood Pressure 109/59 09/25/2024 2:00 PM CLOTHING SUPERVISOR Pulse 86 09/25/2024 2:00 PM CLOTHING SUPERVISOR Temperature 36.6 C (97.8 F) 09/25/2024 1:45 PM CLOTHING SUPERVISOR Respiratory Rate 14 09/25/2024 2:00 PM CLOTHING SUPERVISOR Oxygen Saturation 100% 09/25/2024 2:00 PM CLOTHING SUPERVISOR Inhaled Oxygen Concentration - - Weight 132.5 kg (292 lb) 09/25/2024 12:41 PM CLOTHING SUPERVISOR Height 165.1 cm (5' 5 ) 09/25/2024 12:41 PM CLOTHING SUPERVISOR Body Mass Index 48.59 09/25/2024 12:41 PM CLOTHING SUPERVISOR Plan of Treatment Health Maintenance Due Date Last Done Comments LIPID TESTING 1983 MEDICARE AWV 12 MONTHS 1983 HIV SCREENING 1998 HEPATITIS C SCREENING 08/11/2001 DTAP/TDAP/TD VACCINES (1 - Tdap) 2002 HEPATITIS B VACCINE (1 of 3 - 19+ 3-dose series) 2002 SCREENING FOR DIABETES 12/07/2023 9, 08/25/2019, 08/24/2019, Additional history exists COVID-19 VACCINE (2 - 2023- season) 2024 02/07/2021 DEPRESSION SCREENING 11/08/2024 INFLUENZA VACCINE (Season Ended) 2025 08/01/2021, 08/09/2018 ZOSTER VACCINE (1 of 2) 2033 HIB VACCINE Aged Out No longer eligi ble based on patient's age to complete this topic HPV VACCINE Aged Out No longer eligi ble based on patient's age to complete this topic MENINGOCOCCAL (Group B) VACCINE SHARED DECISION-MAKING Aged Out No longer eligible based on patient's age to complete this topic MENINGOCOCCAL GROUPS A/C/Y/W VACCINE Aged Out No longer eligible based [...] Procedure Name Priority Date/Time Associated Diagnosis Comments RENAL FUNCTION PANEL AM Draw 08/26/2019 5:13 AM CDT Mass of spine from Last 3 Months or Most Recently Relevant to Health Maintenance Results * (ABNORMAL) RENAL FUNCTION PANEL (08/26/2019 5:13 AM CDT) BUN 18 7 - 26 mg/dL 08/26/2019 5:52 AM CDT [facility] Creatinine 0.6 0.6 - 1.2 mg/dL 08/26/2019 5:52 AM CDT [facility] Sodium 139 136 - 145 mmol/L 08/26/2019 5:52 AM T [facility] Potassium 4.1 3.5 - 4.5 mmol/L 08/26/2019 5:52 AM [facility] Chloride 107 98 - 107 [...] 2.3 - 4.7 mg/dL 08/26/2019 5:52 AM [facility] Anion Gap 13 8 - 18 08/26/2019 5:52 AM [facility] BUN/Creatinine Ratio 30(H) 7 - 23 08/26/2019 5:52 AM [facility] Osmolality Calculated 290 270 - 300 mOsm/kg 08/26/2019 5:52 AM [facility] eGFR >60 >60 mL/min/1.7 3 m2 08/26/2019 5:52 AM [facility] Blood BLOOD SPECIMEN / Unknown Lab Venipuncture / Unknown 08/26/2019 5:13 AM CDT 08/26/2019 5:19 AM CDT Sarah Andrade MD LAB - CHEMISTRY ORDERABLES Jessica cruz Result [address] [phone] from Last 3 Months or Most Recently Relevant to Health Maintenance Additional Health Concerns Infection Onset Date Last Indicated ESBL GNR 11/17/2023 11/17/2023 MDRO 11/17/2023 11/17/2023 Insurance MEDICARE [facility] MEDICAID Advance Directives Documents on File Type Date Recorded Patient Mixer [employer] Expl anation Adv Directive/Living Will/POA 09/04/2019 6:07 AM * Full Code (Latest Code Status on File) Date Activated Date Inactivated Comments 08/10/2019 6:43 AM 08/26/2019 6:47 PM Care Teams Aircraft Instrument Mechanic Relationship Specialty Start Date End Date Rick Carpio MD [address] [place] [id number] PCP - General Internal Medicine 06/29/24
--- OUTSIDE RECORDS SUMMARY | 2025-03-14 19:02 | XMS_ITS | Clinical Summary ---
Author Organization [facility] Address [address] [place] [address] Care Team Providers Care Leather Leveler Name Role Phone Anastacia Salas MD Primary Care Provider [phone] Trino Tracy MD Unavailable [phone] Allergies Active Allergy Reactions Criticality Noted Date [...] leaving home for procedure. 354 mL 02/15/20 Discontin ued(Stop Taking at Discharge ) ondansetron ODT (ZOFRAN-ODT) 8 mg disintegrating tablet Take 1 tablet at 11:00am when you begin your Miralax bowel prep. There after, take 1 tablet every 8 hours for nausea as needed. 4 tablet 02/15/20 25 Discontin ued(Stop Taking at Discharge ) bisacodyl [...] (CeleXA) 10 mg tablet daily 03/11/20 12 Discontin ued(Stop Taking at Discharge ) HYDROcodone-aceta minophen ([place]) 5-325 mg per tablet TAKE 1 TABLET EVERY 6 HOURS NEEDED. 09/11/20 11 025 Discontin ued(Stop Taking at Discharge ) ondansetron (ZOFRAN) 4 mg tablet Take 1 tablet (4 mg total) by mouth every 6 (six) hours as needed for nausea or vomiting Discontin ued(Stop Taking at Discharge ) oxyCODONE (OXY-IR) 5 mg capsule Take 1 capsule (5 mg total) by mouth every 4 (four) hours as needed 07/31/20 21 025 Discontin ued(Stop Taking at Discharge [...] 09/27/2024 Assessment & Plan (10/02/2024 11:25 AM CHIEF NURSE EXECUTIVE): 39 y.o. male with PMH including: paraplegia [...] 05/15/2021 Assessment & Plan (09/16/2021 1:48 PM CHIEF NURSE EXECUTIVE): - Pt has been off all antibiotics [...] fluid collection. - Will refer pt to [facility] radiology for possible drainage, culture ordered as [...] again today. May need to escalate to [id number] discussion with ortho and ID if he [...] still pending. May need to escalate to [id number] discussion with ortho and ID as there [...] house to see Dr. Sndyer on Wednesday. Assessment & Plan (01/20/2019 6:07 [...] prn soiling. - Pain management as above [id number]|2025-03-15 11:05:37|2025-03-15 11:05:37|[facility]||||"Neurology EEG Report General Information Date of Study: 03/15/25 TEST Electroencephalogram DIAGNOSIS headache and new onset seizure CONDITION OF RECORDING bedside recording EEG NUMBER [id number] CLINICAL HISTORY [facility]. Eyewitness account was not available. EEG DESCRIPTION During wakefulness the background activity consists of posterior dominant alpha rhythm at 8-9 hertz with amplitude of 20-40 microvolts. This appears moderately formed and reactive to eye opening. Anteriorly low amplitude mixed frequency activity was seen. During drowsiness attenuation of background activity was seen. Hyperventilation or photic stimulation were not performed. Patient did not progress to stage 2 sleep. IMPRESSION This is a normal EEG obtained during awake and drowsy states."
--- NOTE | 2025-03-14 19:05 | ECG_ITS ---
Test Date: 2025-03-14 19:15:34 Measurements Intervals Martin Rate: 77 P: 54 PA: 184 QRS: 55 QRSD: 109 T: 40 QT: 399 QTc: 453 Interpretive Statements SINUS RHYTHM Compared to ECG 12/01/2024 18:25:32 No significant changes Electronically Signed On 03-15-2025 10:05:33 CDT by Jon Garcia M.D.
--- NOTE | 2025-03-14 19:07 | ED.SEIZURE ---
HPI - Seizure General Chief Complaint: Seizure <Heather Rosales APRN - Last Filed: 03/14/25 22:45> Stated Complaint: seizure like activity <Heather Rosales APRN - Last Filed: 03/14/25 22:45> History of Present Illness HPI Narrative: Patient is a 39-year-old male who presents to the ER with complaints of a headache. He reportedly had a seizure prior to arrival and he reports he has never had a seizure before. Patient endorses mild abdominal pain and nausea at the time of examination. He has a colostomy, which is because they said my colon stopped working. Patient also endorses a history of high blood pressure. He has very little memory of the events leading up to his seizure and afterwards. He denies any chest pain, shortness of breath, neck pain, or recent falls. <Heather Rosales APRN - Last Filed: 03/14/25 22:45> Related Data Home Medications: Home Medications Medication Instructions Recorded Confirmed Last Taken Type acetaminophen 500 mg capsule 500 mg PO Q6H PRN pain or fever 05/02/22 11/04/24 Unknown History naloxone 4 mg/actuation nasal spray 1 spray intranasal Q2-3M PRN 05/23/24 11/04/24 Unknown History Opiate Reversal triamcinolone acetonide 0.025 % 1 applic topical DAILY 05/23/24 11/04/24 Unknown History topical cream alprazolam 0.25 mg tablet 0.25 mg PO BID 11/04/24 11/04/24 Unknown History fentanyl 50 mcg/hr transdermal 1 patch transdermal Q72H 11/04/24 11/04/24 11/03/24 00:00 History patch 1 patch folic acid 1 mg tablet 1,000 mcg PO DAILY 11/04/24 11/04/24 11/03/24 18:10 History 1,000 mcg gabapentin 300 mg capsule 300 mg PO DAILY 11/04/24 11/04/24 11/03/24 18:53 History 300 mg ibuprofen 400 mg tablet 400 mg PO Q6H 11/04/24 11/04/24 Unknown History pantoprazole 40 mg tablet,delayed 40 mg PO BID 11/04/24 11/04/24 Unknown History release polyethylene glycol 3350 17 gram 17 g PO DAILY PRN constipation 11/04/24 11/04/24 Unknown History oral powder packet (Miralax) sennosides 8.6 mg-docusate sodium 1 tab-cap PO DAILY 11/04/24 11/04/24 Unknown History 50 mg capsule (Senna Plus) <Heather Rosales APRN - Last Filed: 03/14/25 22:45> Allergies/Adverse Reactions: Allergies Allergy/AdvReac Type Severity Reaction Status Date / Time metoclopramide (From Reglan) Allergy Other Verified 12/01/24 17:35 <Heather Rosales APRN - Last Filed: 03/14/25 22:45> Review of Systems Review of Systems: All systems reviewed & are unremarkable except as noted in HPI and below <Heather Rosales APRN - Last Filed: 03/14/25 22:45> PMFSH Past Medical History Medical History: Medical History Nausea Chronic pain Sacral decubitus ulcer, stage III Osteomyelitis Discitis Abdominal pain Hypertensive urgency DVT prophylaxis Essential hypertension Chest pain Paraplegia Pyelonephritis HTN (hypertension) <Heather Rosales APRN - Last Filed: 03/14/25 22:45> Surgical History Surgical History: Surgical History Mitrofanoff appendicovesicostomy present Hx of cholecystectomy S/P BKA (below knee amputation) bilateral <Heather Rosales APRN - Last Filed: 03/14/25 22:45> Family History Family History: Family History Father History of blood clots Throat cancer Mother Diabetes mellitus Hypertension <Heather Rosales APRN - Last Filed: 03/14/25 22:45> Social History Social History: Social History Social History: the patient stated that he uses marijuana but has not smoked cigarettes for quite some time. The patient resides in a retirement. He is single and does not have any children. Code status full code Smoking packs per day: 1 Smoking cigarettes per day: 20.0 Years smoked: 12 Smoking pack-years: 12.00 Smoking status: Former smoker Tobacco type: cigarettes Smoking end date: 10/15/18 Alcohol intake: never Substance use: current Substance use type: marijuana and prescription drug Last use: 11/03/2024 Do You Feel Safe in your Home?: Yes Lack of Transportation: No Lack of Food: Never True Current Housing: I Have Housing Concerned About Future Housing: No Difficulty Paying Gas/Electric Bills: No Difficulty Paying for Meds: No Currently Unemployed: No Education: High School Diploma/GED Difficulty w/ Childcare or Family Care: No Living arrangements: retirement Occupation/Education: other Gender identity (if verbalized by the patient): Male Sexual Orientation (if Verbalized by the Patient): Straight or Heterosexual Spiritual care concerns: No Agree to blood products: Yes <Heather Rosales APRN - Last Filed: 03/14/25 22:45> Exam Narrative: GENERAL: Ill appearing, obese, toxic, in mild distress, diaphoretic HEAD: Normocephalic, atraumatic. NECK: Supple. No adenopathy, no masses. RESPIRATORY: Airway patent, respirations nonlabored. Clear to auscultation bilaterally, no rales, rhonchi, wheezing. CARDIOVASCULAR: Regular rate and rhythm without murmurs, rubs, or gallops. Peripheral pulses 2+ and equal bilaterally. ABDOMINAL: Soft, mildly tender with palpation, nondistended, no hepatosplenomegaly. Normoactive BS. MUSCULOSKELETAL: Moves upper extremities. Upper extremity strength/ROM intact without gross deformities. SKIN: Warm, dry, normal color. No rashes. NEURO: A&O X3. Speech clear. PSYCHIATRIC: Flat affect. <Heather Rosales, [employer]PER[employer]OR [employer] - Last Filed: 03/14/25 22:45> Course [employer] ADVIS[employer]/PA Physician Supervision This visit was performed by both a physician and an APC. I performed all aspects of the MDM as documented. <Benjamin Hua MD - Last Filed: 03/14/25 23:02> Vital Signs Vital signs: Vital Signs Temperature 97.6 F 03/14/25 18:45 Pulse Rate 89 03/14/25 18:45 Respiratory Rate 28 H 03/14/25 18:45 Blood Pressure 115/66 03/14/25 18:45 Pulse Oximetry 100 03/14/25 18:45 Oxygen Delivery Room Air 03/14/25 18:45 Temperature 97.5 F L 03/14/25 19:45 Pulse Rate 82 03/14/25 19:45 Respiratory Rate 16 03/14/25 19:45 Blood Pressure 126/72 03/14/25 19:45 Pulse Oximetry 100 03/14/25 19:45 Oxygen Delivery Room Air 03/14/25 18:45 <Heather Rosales APRN - Last Filed: 03/14/25 22:45> Vital Signs Temperature 97.6 F 03/14/25 18:45 Pulse Rate 89 03/14/25 18:45 Respiratory Rate 28 H 03/14/25 18:45 Blood Pressure 115/66 03/14/25 18:45 Pulse Oximetry 100 03/14/25 18:45 Oxygen Delivery Room Air 03/14/25 18:45 Temperature 97.5 F L 03/14/25 19:45 Pulse Rate 82 03/14/25 19:45 Respiratory Rate 16 03/14/25 19:45 Blood Pressure 126/72 03/14/25 19:45 Pulse Oximetry 100 03/14/25 19:45 Oxygen Delivery Room Air 03/14/25 18:45 <Benjamin Hua MD - Last Filed: 03/14/25 23:02> MDM - Seizure MDM Narrative Medical decision making narrative: Patient is a 39-year-old male who presents to the ER with complaints of a headache. He reportedly had a seizure prior to arrival and he reports he has never had a seizure before. Patient endorses mild abdominal pain and nausea at the time of examination. He has a colostomy, which is because they said my colon stopped working. Patient also endorses a history of high blood pressure. He has very little memory of the events leading up to his seizure and afterwards. He denies any chest pain, shortness of breath, neck pain, or recent falls. Labs Ordered: CBC, CMP, UA, blood cultures, COVID/flu/RSV, INR, APTT, CK, troponin, lactic acid Imaging Ordered: head CT scan Medications Ordered: 1 L normal saline IV bolus x 2, Keppra 1 g IV bolus, potassium IV, ceftriaxone IV, Zofran IV Results: Pt's CT scan indicates The ventricles are normal in size, shape and position. There is no mass, mass effect or midline shift. There is no abnormal extra-axial fluid collection or intracranial hemorrhage. Retention cyst within the left maxillary sinus. Remaining paranasal sinuses are clear. The mastoid air cells are well aerated. No acute displaced fractures within the overlying cranium. Diagnosis: new onset seizure, sepsis Consults: 2139- Spoke with neurology who suggested pt get a loading dose of Keppra. He would like to have an EEG ordered for tomorrow morning. 2229- Spoke with Dr. Corbin who was in agreement with plan for patient's admission. He will be admitted as observation with telemetry. Dr. Cruz advised patient get neuro checks performed every four hours. Patient Education/Shared MDM: Results of imaging and lab work shared with patient. Patient verbalizes understanding and is agreement with plan for admission. <Heather Rosales APRN - Last Filed: 03/14/25 22:45> Differential Diagnosis Differential diagnosis: Likely febrile convulsion, generalized seizure, new onset seizure and epileptic seizure <Heather Rosales APRN - Last Filed: 03/14/25 22:45> Lab Data Attestation: I reviewed the patient's lab results. <Heather Rosales APRN - Last Filed: 03/14/25 22:45> Result diagrams: 03/14/25 20:23 03/14/25 20:23 <Heather Rosales APRN - Last Filed: 03/14/25 22:45> Labs: Lab Results 03/14/25 03/14/25 03/14/25 Range/Units 19:11 20:22 20:23 WBC 9.7 (4.5-10.0) K/mm3 RBC 4.85 (4.6-6.20) M/mm3 Hgb 9.5 L (14.0-18.0) g/dL Hct 33.2 L (42.0-52.0) % MCV 68.5 L (80-100) fl MCH 19.6 L (26-34) pg MCHC 28.6 L (32-36) g/dl RDW 21.1 H (11.5-14.5) % Plt Count 312 (150-375) k/mm3 MPV 10.6 H (7.4-10.4) fl Immature Gran % (Auto) 0.5 (0-0.5) % Neut % (Auto) 84.6 H (45.5-73.1) % Lymph % (Auto) 10.4 L (18.3-44.2) % [place] % (Auto) 3.9 (2.6-8.5) % Eos % (Auto) 0.4 (0-4.4) % Baso % (Auto) 0.2 (0.2-1.2) % Lymph # (Auto) 1.01 (0.9-3.2) K/mm3 [place] # (Auto) 0.4 (0.1-0.6) K/mm3 Eos # (Auto) 0.0 (0-0.3) K/mm3 Baso # (Auto) 0.0 (0.0-0.1) K/mm3 Abs Immat Gran (auto) 0.05 H (0.00-0.031) K/mm3 Absolute Neuts (auto) 8.2 H (1.3-6.7) K/mm3 Absolute Nucleated RBC 0.000 (0.0-0.012) K/mm3 Band Neutrophils % Not Reportable Nucleated RBC % 0.0 (0.0-0.2) % Platelet Estimate Adequate (Adequate) % Immature Plt Fraction 8.1 (0.9-11.2) % Hypochromasia 2+ Anisocytosis 1+ Microcytosis 1+ (NORMAL) Schistocytes None seen PT 13.9 (11.1-14.7) Seconds INR 1.0 APTT 32.6 (22.3-36.8) Seconds Sodium 140 (137-145) mmol/L Potassium 3.2 L (3.4-5.0) mmol/L Chloride 103 (98-107) mmol/L Carbon Dioxide 23 (22-30) mmol/L Anion Gap 14 H (4-12) mmol/L BUN 11 (9-20) mg/dL Creatinine 0.58 L (0.7-1.3) mg/dL Estim Creat Clear Calc Not Reportable Estimated GFR > 60 (59 - ) Glucose 118 H (65-110) mg/dL POC Capillary Glucose 113 H (65-105) mg/dl Lactic Acid 0.8 (0.7-2.0) mmol/L Calcium 8.9 (8.4-10.2) mg/dL Total Bilirubin 0.7 (0.2-1.3) mg/dL AST 19 (17-59) U/L ALT 20 (6-50) U/L Alkaline Phosphatase 147 H (38-126) U/L Total Creatine Kinase 71 (55-170) U/L Troponin I < 0.012 (0.000-0.034) ng/mL C-Reactive Protein 6.7 H (<1.0) mg/dL Total Protein 9.0 H (6.3-8.2) g/dL Albumin 4.4 (3.5-5.1) g/dL TSH 0.659 (0.465-4.680) uIU/mL Urine Color (Yellow) Urine Appearance (Clear) Urine pH (5.0-9.0) Ur Specific [place] (1.001-1.035) Urine Protein (Negative) mg/dL Urine Glucose (UA) (Negative) mg/dL Urine Ketones (Negative) mg/dL Ur Blood (Man) (Negative) Urine Nitrate (Negative) Urine Bilirubin (Negative) Urine Urobilinogen (<2.0) mg/dL Leukocyte Esterase Rfl (Negative) RAFA/UL Influenza A (RT-PCR) Influenza B (RT-PCR) RSV (RT-PCR) SARS-CoV-2 RNA (RT-PCR) 03/14/25 03/14/25 Range/Units 21:01 22:29 WBC (4.5-10.0) K/mm3 RBC (4.6-6.20) M/mm3 Hgb (14.0-18.0) g/dL Hct (42.0-52.0) % MCV (80-100) fl MCH (26-34) pg MCHC (32-36) g/dl RDW (11.5-14.5) % Plt Count (150-375) k/mm3 MPV (7.4-10.4) fl Immature Gran % (Auto) (0-0.5) % Neut % (Auto) (45.5-73.1) % Lymph % (Auto) (18.3-44.2) % [place] % (Auto) (2.6-8.5) % Eos % (Auto) (0-4.4) % Baso % (Auto) (0.2-1.2) % Lymph # (Auto) (0.9-3.2) K/mm3 [place] # (Auto) (0.1-0.6) K/mm3 Eos # (Auto) (0-0.3) K/mm3 Baso # (Auto) (0.0-0.1) K/mm3 Abs Immat Gran (auto) (0.00-0.031) K/mm3 Absolute Neuts (auto) (1.3-6.7) K/mm3 Absolute Nucleated RBC (0.0-0.012) K/mm3 Band Neutrophils % Nucleated RBC % (0.0-0.2) % Platelet Estimate (Adequate) % Immature Plt Fraction (0.9-11.2) % Hypochromasia Anisocytosis Microcytosis (NORMAL) Schistocytes PT (11.1-14.7) Seconds INR APTT (22.3-36.8) Seconds Sodium (137-145) mmol/L Potassium (3.4-5.0) mmol/L Chloride (98-107) mmol/L Carbon Dioxide (22-30) mmol/L Anion Gap (4-12) mmol/L BUN (9-20) mg/dL Creatinine (0.7-1.3) mg/dL Estim Creat Clear Calc Estimated GFR (59 - ) Glucose (65-110) mg/dL POC Capillary Glucose (65-105) mg/dl Lactic Acid (0.7-2.0) mmol/L Calcium (8.4-10.2) mg/dL Total Bilirubin (0.2-1.3) mg/dL AST (17-59) U/L ALT (6-50) U/L Alkaline Phosphatase (38-126) U/L Total Creatine Kinase (55-170) U/L Troponin I (0.000-0.034) ng/mL C-Reactive Protein (<1.0) mg/dL Total Protein (6.3-8.2) g/dL Albumin (3.5-5.1) g/dL TSH (0.465-4.680) uIU/mL Urine Color Yellow (Yellow) Urine Appearance Clear (Clear) Urine pH 7.5 (5.0-9.0) Ur Specific [place] 1.008 (1.001-1.035) Urine Protein Negative (Negative) mg/dL Urine Glucose (UA) Negative (Negative) mg/dL Urine Ketones 1+ H (Negative) mg/dL Ur Blood (Man) Negative (Negative) Urine Nitrate Positive H (Negative) Urine Bilirubin Negative (Negative) Urine Urobilinogen 0.2 (<2.0) mg/dL Leukocyte Esterase Rfl Trace H (Negative) RAFA/UL Influenza A (RT-PCR) Pending Influenza B (RT-PCR) Pending RSV (RT-PCR) Pending SARS-CoV-2 RNA (RT-PCR) Pending <Heather Rosales, [employer]PER[employer] - Last Filed: 03/14/25 22:45> Lab Results 03/14/25 03/14/25 03/14/25 Range/Units 19:11 20:22 20:23 WBC 9.7 (4.5-10.0) K/mm3 RBC 4.85 (4.6-6.20) M/mm3 Hgb 9.5 L (14.0-18.0) g/dL Hct 33.2 L (42.0-52.0) % MCV 68.5 L (80-100) fl MCH 19.6 L (26-34) pg MCHC 28.6 L (32-36) g/dl RDW 21.1 H (11.5-14.5) % Plt Count 312 (150-375) k/mm3 MPV 10.6 H (7.4-10.4) fl Immature Gran % (Auto) 0.5 (0-0.5) % Neut % (Auto) 84.6 H (45.5-73.1) % Lymph % (Auto) 10.4 L (18.3-44.2) % [place] % (Auto) 3.9 (2.6-8.5) % Eos % (Auto) 0.4 (0-4.4) % Baso % (Auto) 0.2 (0.2-1.2) % Lymph # (Auto) 1.01 (0.9-3.2) K/mm3 [place] # (Auto) 0.4 (0.1-0.6) K/mm3 Eos # (Auto) 0.0 (0-0.3) K/mm3 Baso # (Auto) 0.0 (0.0-0.1) K/mm3 Abs Immat Gran (auto) 0.05 H (0.00-0.031) K/mm3 Absolute Neuts (auto) 8.2 H (1.3-6.7) K/mm3 Absolute Nucleated RBC 0.000 (0.0-0.012) K/mm3 Band Neutrophils % Not Reportable Nucleated RBC % 0.0 (0.0-0.2) % Platelet Estimate Adequate (Adequate) % Immature Plt Fraction 8.1 (0.9-11.2) % Hypochromasia 2+ Anisocytosis 1+ Microcytosis 1+ (NORMAL) Schistocytes None seen PT 13.9 (11.1-14.7) Seconds INR 1.0 APTT 32.6 (22.3-36.8) Seconds Sodium 140 (137-145) mmol/L Potassium 3.2 L (3.4-5.0) mmol/L Chloride 103 (98-107) mmol/L Carbon Dioxide 23 (22-30) mmol/L Anion Gap 14 H (4-12) mmol/L BUN 11 (9-20) mg/dL Creatinine 0.58 L (0.7-1.3) mg/dL Estim Creat Clear Calc Not Reportable Estimated GFR > 60 (59 - ) Glucose 118 H (65-110) mg/dL POC Capillary Glucose 113 H (65-105) mg/dl Lactic Acid 0.8 (0.7-2.0) mmol/L Calcium 8.9 (8.4-10.2) mg/dL Total Bilirubin 0.7 (0.2-1.3) mg/dL AST 19 (17-59) U/L ALT 20 (6-50) U/L Alkaline Phosphatase 147 H (38-126) U/L Total Creatine Kinase 71 (55-170) U/L Troponin I < 0.012 (0.000-0.034) ng/mL C-Reactive Protein 6.7 H (<1.0) mg/dL Total Protein 9.0 H (6.3-8.2) g/dL Albumin 4.4 (3.5-5.1) g/dL TSH 0.659 (0.465-4.680) uIU/mL Urine Color (Yellow) Urine Appearance (Clear) Urine pH (5.0-9.0) Ur Specific [place] (1.001-1.035) Urine Protein (Negative) mg/dL Urine Glucose (UA) (Negative) mg/dL Urine Ketones (Negative) mg/dL Ur Blood (Man) (Negative) Urine Nitrate (Negative) Urine Bilirubin (Negative) Urine Urobilinogen (<2.0) mg/dL Leukocyte Esterase Rfl (Negative) RAFA/UL Influenza A (RT-PCR) Influenza B (RT-PCR) RSV (RT-PCR) SARS-CoV-2 RNA (RT-PCR) 03/14/25 03/14/25 Range/Units 21:01 22:29 WBC (4.5-10.0) K/mm3 RBC (4.6-6.20) M/mm3 Hgb (14.0-18.0) g/dL Hct (42.0-52.0) % MCV (80-100) fl MCH (26-34) pg MCHC (32-36) g/dl RDW (11.5-14.5) % Plt Count (150-375) k/mm3 MPV (7.4-10.4) fl Immature Gran % (Auto) (0-0.5) % Neut % (Auto) (45.5-73.1) % Lymph % (Auto) (18.3-44.2) % [place] % (Auto) (2.6-8.5) % Eos % (Auto) (0-4.4) % Baso % (Auto) (0.2-1.2) % Lymph # (Auto) (0.9-3.2) K/mm3 [place] # (Auto) (0.1-0.6) K/mm3 Eos # (Auto) (0-0.3) K/mm3 Baso # (Auto) (0.0-0.1) K/mm3 Abs Immat Gran (auto) (0.00-0.031) K/mm3 Absolute Neuts (auto) (1.3-6.7) K/mm3 Absolute Nucleated RBC (0.0-0.012) K/mm3 Band Neutrophils % Nucleated RBC % (0.0-0.2) % Platelet Estimate (Adequate) % Immature Plt Fraction (0.9-11.2) % Hypochromasia Anisocytosis Microcytosis (NORMAL) Schistocytes PT (11.1-14.7) Seconds INR APTT (22.3-36.8) Seconds Sodium (137-145) mmol/L Potassium (3.4-5.0) mmol/L Chloride (98-107) mmol/L Carbon Dioxide (22-30) mmol/L Anion Gap (4-12) mmol/L BUN (9-20) mg/dL Creatinine (0.7-1.3) mg/dL Estim Creat Clear Calc Estimated GFR (59 - ) Glucose (65-110) mg/dL POC Capillary Glucose (65-105) mg/dl Lactic Acid (0.7-2.0) mmol/L Calcium (8.4-10.2) mg/dL Total Bilirubin (0.2-1.3) mg/dL AST (17-59) U/L ALT (6-50) U/L Alkaline Phosphatase (38-126) U/L Total Creatine Kinase (55-170) U/L Troponin I (0.000-0.034) ng/mL C-Reactive Protein (<1.0) mg/dL Total Protein (6.3-8.2) g/dL Albumin (3.5-5.1) g/dL TSH (0.465-4.680) uIU/mL Urine Color Yellow (Yellow) Urine Appearance Clear (Clear) Urine pH 7.5 (5.0-9.0) Ur Specific [place] 1.008 (1.001-1.035) Urine Protein Negative (Negative) mg/dL Urine Glucose (UA) Negative (Negative) mg/dL Urine Ketones 1+ H (Negative) mg/dL Ur Blood (Man) Negative (Negative) Urine Nitrate Positive H (Negative) Urine Bilirubin Negative (Negative) Urine Urobilinogen 0.2 (<2.0) mg/dL Leukocyte Esterase Rfl Trace H (Negative) RAFA/UL Influenza A (RT-PCR) Pending Influenza B (RT-PCR) Pending RSV (RT-PCR) Pending SARS-CoV-2 RNA (RT-PCR) Pending <Benjamin Hua MD - Last Filed: 03/14/25 23:02> Imaging Data Attestation: I personally reviewed and interpreted this imaging study as follows: <Heather Rosales APRN - Last Filed: 03/14/25 22:45> Radiologist's impression: Impressions Head CT 03/14/25 21:27 Impression: No acute intracranial hemorrhage or suspicious mass effect. <Heather Rosales APRN - Last Filed: 03/14/25 22:45> Discharge Plan Discharge Clinical Impression: New onset seizure, Urinary tract infection, Sepsis, Abdominal pain <Heather Rosales APRN - Last Filed: 03/14/25 22:45> Patient Disposition: Still a Patient <Heather Rosales APRN - Last Filed: 03/14/25 22:45> Condition: Stable <Heather Rosales APRN - Last Filed: 03/14/25 22:45> Patient Language: Cymro <Heather Rosales APRN - Last Filed: 03/14/25 22:45> Prescriptions: No Action triamcinolone acetonide 0.025 % cream 1 applic TOPICAL DAILY Rx Instructions: FACE/CHEEK naloxone 4 mg/actuation spray,non-aerosol 1 spray INTRANASAL Q2-3M PRN (Reason: Opiate Reversal) cyclobenzaprine 5 mg tablet 5 mg PO TID PRN (Reason: Muscle Spasm) Qty: 1 0RF fentanyl 50 mcg/hr patch 72 hour 1 patch transdermal Q72H Patient Comments: Removed in ER gabapentin 300 mg capsule 300 mg PO DAILY alprazolam 0.25 mg tablet 0.25 mg PO BID Senna Plus 8.6-50 mg capsule 1 tab-cap PO DAILY pantoprazole 40 mg tablet,delayed release (DR/EC) 40 mg PO BID Rx Instructions: Before breakfast and dinner polyethylene glycol 3350 [Miralax] 17 gram powder in packet 17 g PO DAILY PRN (Reason: constipation) ibuprofen 400 mg tablet 400 mg PO Q6H folic acid 1 mg tablet 1,000 mcg PO DAILY nifedipine [Procardia XL] 30 mg Tablet Extended Release 24hr 90 mg PO QAM Qty: 30 0RF clonidine HCl 0.1 mg Tablet 0.1 mg PO Q12HR Qty: 60 0RF oxycodone-acetaminophen 5-325 mg tablet 1 tablet PO Q8H PRN (Reason: pain) Qty: 12 0RF acetaminophen 500 mg Capsule 500 mg PO Q6H PRN (Reason: pain or fever) <Heather Rosales APRN - Last Filed: 03/14/25 22:45> Follow-up/Referrals: Ampadu,MD Rick [Primary Care Provider] - <Heather Rosales, YULIA - Last Filed: 03/14/25 22:45>
[2025-03-14 19:15] LABS: Glucose Point of Care 113 mg/dl (65-105)
--- NOTE | 2025-03-14 19:30 | PC.NURSE ---
Received report from Zamzam RN for cont. of care. Pt AOX4 lying on stretcher on diagnostic cardiac sonographer, diaphoretic and tachypneic with oxygen saturation 93% RA. Pt being taken to CT with tech.
[2025-03-14] MEDS: SODIUM CHLORIDE 0.9% IV 1,000 ML 999 ML IV CONT ×2 (19:32→22:17)
[2025-03-14] MEDS: ONDANSETRON INJ 4 MG/2 ML VIAL IV PUSH (19:32)
[2025-03-14 19:45] VITALS: BP 126/72; PULSE 82; RESP 16; TEMP 36.4; O2SAT 100
[2025-03-14 20:19] VITALS: BP 151/97; PULSE 78; RESP 39; O2SAT 98
[2025-03-14 20:29] LABS: Basophils Percent Auto 0.2 % (0.2-1.2); Eosinophils Percent Auto 0.4 % (0-4.4); Hematocrit 33.2 % (42.0-52.0); Hemoglobin 9.5 g/dL (14.0-18.0); Immature Granulocyte Absolute 0.05 K/mm3 (0.00-0.031); Immature Granulocyte Percent A 0.5 % (0-0.5); Immature Platelet Fraction Pct 8.1 % (0.9-11.2); Lymphocytes Absolute Auto 1.01 K/mm3 (0.9-3.2); Lymphocytes Percent Auto 10.4 % (18.3-44.2); Mean Corpuscular HGB Conc 28.6 g/dl (32-36); Mean Corpuscular Hemoglobin 19.6 pg (26-34); Mean Corpuscular Volume 68.5 fl (80-100); Mean Platelet Volume 10.6 fl (7.4-10.4); Monocytes Absolute Auto 0.4 K/mm3 (0.1-0.6); Monocytes Percent Auto 3.9 % (2.6-8.5); Neutrophils Absolute Auto 8.2 K/mm3 (1.3-6.7); Neutrophils Percent Auto 84.6 % (45.5-73.1); Platelet Count Result 312 k/mm3 (150-375); Red Blood Count 4.85 M/mm3 (4.6-6.20); Red Cell Distribution Width 21.1 % (11.5-14.5); White Blood Count 9.7 K/mm3 (4.5-10.0)
[2025-03-14 20:38] LABS: Alanine Aminotransferase 20 U/L (6-50); Albumin Level 4.4 g/dL (3.5-5.1); Alkaline Phosphatase 147 U/L (38-126); Anion Gap 14 mmol/L (4-12); Aspartate Amino Transferase 19 U/L (17-59); Bilirubin,Total 0.7 mg/dL (0.2-1.3); Blood Urea Nitrogen 11 mg/dL (9-20); Calcium 8.9 mg/dL (8.4-10.2); Carbon Dioxide 23 mmol/L (22-30); Chloride 103 mmol/L (98-107); Creatine Kinase 71 U/L (55-170); Estimated Glomerular Filt Rate > 60; Glucose 118 mg/dL (65-110); Lactic Acid Reflex 0.8 mmol/L (0.7-2.0); Potassium 3.2 mmol/L (3.4-5.0); Sodium 140 mmol/L (137-145)
[2025-03-14 20:48] LABS: Platelet Estimate Adequate (Adequate); Prothrombin Time 13.9 Seconds (11.1-14.7)
[2025-03-14 20:49] LABS: Partial Thromboplastin Time 32.6 Seconds (22.3-36.8); Schistocytes None Seen
[2025-03-14 20:50] LABS: Troponin I < 0.012 ng/mL (0.000-0.034)
[2025-03-14 20:54] LABS: Anisocytosis 1+; Hypochromasia 2+; Microcytosis 1+ (NORMAL)
[2025-03-14 21:04] VITALS: BP 127/95; PULSE 71; RESP 26; O2SAT 100
[2025-03-14 21:09] LABS: Thyroid Stimulating Hormone 0.659 uIU/mL (0.465-4.680)
[2025-03-14 21:25] LABS: Add Urine Microscopic? YES; Appearance Urine Clear (Clear); Bilirubin Urine Negative (Negative); Blood Urine Negative (Negative); Color Urine Yellow (Yellow); Glucose Urine UA Negative (Negative); Ketones Urine 1+ mg/dL (Negative); Leukocyte Esterase Ur Trace LEU/UL (Negative); Nitrate Urine Positive (Negative); Protein Urine Negative (Negative); Specific Grav Ur 1.008 (1.001-1.035); Urobilinogen Urine 0.2 mg/dL (<2.0); pH Urine 7.5 (5.0-9.0)
[2025-03-14] MEDS: levETIRAcetam 1000MG/NACL100ML 1,000 MG/100 ML BAG 400 MG IVPB (21:56)
[2025-03-14 22:01] LABS: CRP 6.7 mg/dL (<1.0)
--- NOTE | 2025-03-14 22:05 | PC.NURSE ---
Pt straight cath for urine sample, per MD order. Pt mother was updated on plan of care, pt is now being taken to CT on threat monitoring analyst accompanied by water technician on stretcher.
[2025-03-14 23:10] LABS: Influenza A QL RT-PCR Negative (Negative); Influenza B QL RT-PCR Negative (Negative); RSV RNA, RT-PCR Negative (Negative); SARS-CoV-2 RNA PCR Negative (Negative)
[2025-03-14 23:39] VITALS: BP 142/90; PULSE 72; RESP 18; O2SAT 100
[2025-03-14 23:47] VITALS: BP 149/88; PULSE 62; RESP 19; O2SAT 100
[2025-03-15] VITALS (11 sets, daily range): BP systolic 121–160; BP diastolic 49–90; PULSE 63–92; RESP 14–18; TEMP 36.2–36.7; O2SAT 100; BMI 57.5
[2025-03-15] MEDS: KCL 20 MEQ/D5/0.45% SOD CHL 1,000 ML 125 ML IV CONT (00:01)
--- NOTE | 2025-03-15 00:14 | ADMGEN ---
This patient, Shawn Casey Jr., was admitted to Medical Room 256-01. Patient/family oriented to hospital policies and general routines including ID bracelet, bed and alarms, visiting hours, pain management, procedures, bathroom and other care routines, personal items, smoking policy, room service/diet, and visiting hours. Information on how to activate the Rapid Response Team has been discussed. Patient/Family are encouraged to report perceived risks to care and to ask questions if they do not understand what they are told or what they should do.
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
[2025-03-15 08:02] LABS: Basophils Percent Auto 0.1 % (0.2-1.2); Eosinophils Absolute Auto 0.1 K/mm3 (0-0.3); Hematocrit 30.1 % (42.0-52.0); Hemoglobin 8.4 g/dL (14.0-18.0); Immature Granulocyte Absolute 0.04 K/mm3 (0.00-0.031); Immature Granulocyte Percent A 0.6 % (0-0.5); Immature Platelet Fraction Pct 8.6 % (0.9-11.2); Lymphocytes Absolute Auto 1.83 K/mm3 (0.9-3.2); Lymphocytes Percent Auto 25.7 % (18.3-44.2); Mean Corpuscular HGB Conc 27.9 g/dl (32-36); Mean Corpuscular Volume 71.5 fl (80-100); Mean Platelet Volume 11.1 fl (7.4-10.4); Monocytes Absolute Auto 0.5 K/mm3 (0.1-0.6); Monocytes Percent Auto 7.4 % (2.6-8.5); Neutrophils Absolute Auto 4.7 K/mm3 (1.3-6.7); Neutrophils Percent Auto 65.2 % (45.5-73.1); Platelet Count Result 280 k/mm3 (150-375); Red Blood Count 4.21 M/mm3 (4.6-6.20); White Blood Count 7.1 K/mm3 (4.5-10.0)
[2025-03-15 08:16] LABS: Alanine Aminotransferase 18 U/L (6-50); Albumin Level 3.8 g/dL (3.5-5.1); Alkaline Phosphatase 111 U/L (38-126); Anion Gap 11 mmol/L (4-12); Aspartate Amino Transferase 16 U/L (17-59); Bilirubin,Total 0.5 mg/dL (0.2-1.3); Blood Urea Nitrogen 9 mg/dL (9-20); Calcium 8.1 mg/dL (8.4-10.2); Carbon Dioxide 27 mmol/L (22-30); Chloride 105 mmol/L (98-107); Estimated CRCL calculation 147 ml/min; Estimated Glomerular Filt Rate > 60; Glucose 96 mg/dL (65-110); Potassium 3.3 mmol/L (3.4-5.0); Sodium 143 mmol/L (137-145)
[2025-03-15 08:43] LABS: Anisocytosis 1+; Hypochromasia 2+; Microcytosis 1+ (NORMAL); Platelet Estimate Adequate (Adequate); Polychromasia 1+; Schistocytes None Seen
--- NOTE | 2025-03-15 11:05 | P.NEURO_ITS ---
Neurology EEG Report General Information Date of Study: 03/15/25 TEST Electroencephalogram DIAGNOSIS headache and new onset seizure CONDITION OF RECORDING bedside recording EEG NUMBER [id number] CLINICAL HISTORY patient had a passing out spell at the assisted. Eyewitness account was not available. EEG DESCRIPTION During wakefulness the background activity consists of posterior dominant alpha rhythm at 8-9 hertz with amplitude of 20-40 microvolts. This appears moderately formed and reactive to eye opening. Anteriorly low amplitude mixed frequency activity was seen. During drowsiness attenuation of background activity was seen. Hyperventilation or photic stimulation were not performed. Patient did not progress to stage 2 sleep. IMPRESSION This is a normal EEG obtained during awake and drowsy states.
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
[2025-03-15] MEDS: CENTRAL LINE FLUSH 10 ML IV PUSH ×2 (15:51→20:54)
[2025-03-15] MEDS: oxyCODONE/ACETAMINOPHEN (*CRX) 5-325 MG TABLET 1 TABLET PO (15:56)
[2025-03-15] MEDS: ALPRAZolam (*CRX) 0.25 MG TABLET PO (15:58)
[2025-03-15] MEDS: SERTRALINE HCL 25 MG TABLET 75 MG PO (15:58)
[2025-03-15] MEDS: fentaNYL (*CRX) 50 MCG PATCH TRANSDERM (15:59)
[2025-03-15] MEDS: ONDANSETRON INJ 4 MG/2 ML VIAL IV PUSH (16:47)
[2025-03-15 17:35] LABS: Amphetamine Screen Urine Negative (Negative); Barbiturate Screen Urine Negative (Negative); Benzodiazepines Screen Urine Positive (Negative); Cannabinoid Screen Urine Positive (Negative); Cocaine Screen Urine Negative (Negative); Methadone Screen Urine Negative (Negative); Opiate Screen Urine Negative (Negative); Phencyclidine Screen Urine Negative (Negative)
[2025-03-15] MEDS: PROPRANOLOL HCL 40 MG TABLET PO (20:53)
[2025-03-15] MEDS: FUROSEMIDE 20 MG TABLET PO (20:53)
[2025-03-15] MEDS: GABAPENTIN 300 MG CAPSULE PO (20:53)
[2025-03-16] VITALS (12 sets, daily range): BP systolic 124–191; BP diastolic 47–103; PULSE 53–129; RESP 18–20; TEMP 36.5–36.7; O2SAT 99–100; BMI 57.5
--- NOTE | 2025-03-16 00:09 | PC.NURSE ---
2030, PT REFUSING TO SIGN CT CONSENT, STATES I DONT WANT TO HAVE IT DONE
--- NOTE | 2025-03-16 00:09 | PC.NURSE ---
2300, CT CALLED TO SEE IF THEY CAN COME GET PT, PT ONLY HAS PORT FOR IV ACCESS AND DOES NOT HAVE CARD TO SAY IT IS OK TO USE AND REFUSES TO HAVE PERIPHERAL IV. DR NOTIFIED
[2025-03-16 05:13] LABS: Basophils Percent Auto 0.3 % (0.2-1.2); Eosinophils Absolute Auto 0.1 K/mm3 (0-0.3); Eosinophils Percent Auto 0.9 % (0-4.4); Hematocrit 27.6 % (42.0-52.0); Immature Granulocyte Absolute 0.02 K/mm3 (0.00-0.031); Immature Granulocyte Percent A 0.3 % (0-0.5); Immature Platelet Fraction Pct 7.3 % (0.9-11.2); Lymphocytes Absolute Auto 2.02 K/mm3 (0.9-3.2); Lymphocytes Percent Auto 29.9 % (18.3-44.2); Mean Corpuscular Hemoglobin 20.4 pg (26-34); Mean Corpuscular Volume 70.2 fl (80-100); Mean Platelet Volume 10.9 fl (7.4-10.4); Monocytes Absolute Auto 0.5 K/mm3 (0.1-0.6); Neutrophils Absolute Auto 4.2 K/mm3 (1.3-6.7); Neutrophils Percent Auto 61.6 % (45.5-73.1); Platelet Count Result 256 k/mm3 (150-375); Red Blood Count 3.93 M/mm3 (4.6-6.20); Red Cell Distribution Width 20.7 % (11.5-14.5); White Blood Count 6.8 K/mm3 (4.5-10.0)
[2025-03-16 05:47] LABS: Alanine Aminotransferase 19 U/L (6-50); Albumin Level 3.5 g/dL (3.5-5.1); Alkaline Phosphatase 111 U/L (38-126); Anion Gap 10 mmol/L (4-12); Aspartate Amino Transferase 19 U/L (17-59); Band Neutrophils Percent 0 % (0-6); Bilirubin,Total 0.4 mg/dL (0.2-1.3); Blood Urea Nitrogen 8 mg/dL (9-20); Calcium 7.7 mg/dL (8.4-10.2); Carbon Dioxide 25 mmol/L (22-30); Chloride 106 mmol/L (98-107); Estimated CRCL calculation 143 ml/min; Estimated Glomerular Filt Rate > 60; Glucose 83 mg/dL (65-110); Hypochromasia 1+; Platelet Estimate Adequate (Adequate); Potassium 2.8 mmol/L (3.4-5.0); Sodium 141 mmol/L (137-145)
[2025-03-16 05:48] LABS: Anisocytosis 1+; Ovalocytes 1+; Schistocytes None Seen
[2025-03-16] MEDS: CENTRAL LINE FLUSH 10 ML IV PUSH ×3 (06:02→20:51)
[2025-03-16] MEDS: POTASSIUM CHLORIDE 20 MEQ ER TABLET 60 MEQ PO (06:02)
[2025-03-16 06:05] LABS: Magnesium 1.8 mg/dL (1.6-2.3)
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
[2025-03-16] MEDS: SERTRALINE HCL 25 MG TABLET 75 MG PO (08:48)
[2025-03-16] MEDS: NIFEdipine 30 MG TAB.ER.24 90 MG PO (08:48)
[2025-03-16] MEDS: POTASSIUM CHLORIDE 20 MEQ ER TABLET 40 MEQ PO (08:49)
[2025-03-16] MEDS: ALPRAZolam (*CRX) 0.25 MG TABLET PO (08:49)
[2025-03-16] MEDS: FUROSEMIDE 20 MG TABLET PO ×2 (08:49→20:51)
[2025-03-16] MEDS: PANTOPRAZOLE 40 MG TABLET PO (08:49)
[2025-03-16] MEDS: FOLIC ACID 1 MG TABLET PO (08:49)
[2025-03-16] MEDS: PROPRANOLOL HCL 40 MG TABLET PO ×2 (08:53→20:51)
[2025-03-16] MEDS: LORazepam INJ (*CRX) 2 MG/ML VIAL 0.5 MG IV PUSH (11:33)
[2025-03-16 13:44] LABS: Potassium 3.6 mmol/L (3.4-5.0)
--- NOTE | 2025-03-16 15:12 | ECG_ITS ---
Test Date: 2025-03-16 15:27:22 Measurements Intervals [place] Rate: 99 P: 60 UT: 164 QRS: 56 QRSD: 97 T: 7 QT: 365 QTc: 469 Interpretive Statements SINUS RHYTHM NONSPECIFIC ST & T-WAVE ABNORMALITY Compared to ECG 03/14/2025 19:15:34 T-wave abnormality now present Electronically Signed On 03-16-2025 21:56:53 CDT by Mariano Burns M.D.
[2025-03-16] MEDS: hydrALAZINE HCL 20 MG/ML VIAL 10 MG IV PUSH (15:16)
[2025-03-16] MEDS: LORazepam INJ (*CRX) 2 MG/ML VIAL IV PUSH (15:24)
[2025-03-16 15:35] LABS: Glucose Point of Care 112 mg/dl (65-105)
[2025-03-16] MEDS: levETIRAcetam 1000MG/NACL100ML 1,000 MG/100 ML BAG 400 MG IVPB (15:51)
[2025-03-16] MEDS: levETIRAcetam 500 MG TABLET 1000 MG PO (20:51)
[2025-03-16] MEDS: GABAPENTIN 300 MG CAPSULE PO (20:51)
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
[2025-03-17] VITALS (11 sets, daily range): BP systolic 116–136; BP diastolic 53–73; PULSE 69–95; RESP 16–20; TEMP 36.5–36.8; O2SAT 100
[2025-03-17] MEDS: CENTRAL LINE FLUSH 10 ML IV PUSH ×3 (06:09→20:37)
[2025-03-17 06:21] LABS: Basophils Percent Auto 0.4 % (0.2-1.2); Eosinophils Absolute Auto 0.1 K/mm3 (0-0.3); Eosinophils Percent Auto 1.2 % (0-4.4); Hematocrit 29.5 % (42.0-52.0); Hemoglobin 8.4 g/dL (14.0-18.0); Immature Granulocyte Absolute 0.04 K/mm3 (0.00-0.031); Immature Granulocyte Percent A 0.5 % (0-0.5); Lymphocytes Percent Auto 23.2 % (18.3-44.2); Mean Corpuscular HGB Conc 28.5 g/dl (32-36); Mean Corpuscular Volume 70.4 fl (80-100); Mean Platelet Volume 10.4 fl (7.4-10.4); Monocytes Absolute Auto 0.6 K/mm3 (0.1-0.6); Monocytes Percent Auto 7.3 % (2.6-8.5); Neutrophils Absolute Auto 5.2 K/mm3 (1.3-6.7); Neutrophils Percent Auto 67.4 % (45.5-73.1); Platelet Count Result 255 k/mm3 (150-375); Red Blood Count 4.19 M/mm3 (4.6-6.20); Red Cell Distribution Width 20.9 % (11.5-14.5); White Blood Count 7.8 K/mm3 (4.5-10.0)
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
[2025-03-17 06:51] LABS: Alanine Aminotransferase 27 U/L (6-50); Albumin Level 3.6 g/dL (3.5-5.1); Alkaline Phosphatase 110 U/L (38-126); Anion Gap 9 mmol/L (4-12); Anisocytosis 2+; Aspartate Amino Transferase 26 U/L (17-59); Bilirubin,Total 0.2 mg/dL (0.2-1.3); Blood Urea Nitrogen 7 mg/dL (9-20); Calcium 7.8 mg/dL (8.4-10.2); Carbon Dioxide 24 mmol/L (22-30); Chloride 106 mmol/L (98-107); Estimated CRCL calculation 153 ml/min; Estimated Glomerular Filt Rate > 60; Glucose 96 mg/dL (65-110); Hypochromasia 2+; Ovalocytes 1+; Platelet Estimate Adequate (Adequate); Polychromasia 1+; Schistocytes None Seen; Sodium 139 mmol/L (137-145)
[2025-03-17] MEDS: POTASSIUM CHLORIDE 20 MEQ ER TABLET 40 MEQ PO (07:10)
[2025-03-17] MEDS: NIFEdipine 30 MG TAB.ER.24 90 MG PO (08:56)
[2025-03-17] MEDS: FOLIC ACID 1 MG TABLET PO (08:56)
[2025-03-17] MEDS: FUROSEMIDE 20 MG TABLET PO ×2 (08:56→20:36)
[2025-03-17] MEDS: ALPRAZolam (*CRX) 0.25 MG TABLET PO ×2 (08:56→16:53)
[2025-03-17] MEDS: SERTRALINE HCL 25 MG TABLET 75 MG PO (08:57)
[2025-03-17] MEDS: PANTOPRAZOLE 40 MG TABLET PO ×2 (08:57→16:53)
[2025-03-17] MEDS: levETIRAcetam 500 MG TABLET 1000 MG PO ×2 (08:57→20:37)
[2025-03-17] MEDS: CEFEPIME 2 GM/NS 50 ML 2 GM/50 ML BAG IVPB ×2 (08:57→16:53)
[2025-03-17] MEDS: PROPRANOLOL HCL 40 MG TABLET PO ×2 (09:01→20:36)
[2025-03-17] MEDS: VANCOMYCIN 1,250 MG/NS 250 ML 1,250 MG/250 ML BAG 166.67 MG IVPB ×2 (09:22→10:49)
[2025-03-17 13:54] LABS: MRSA (PCR) DETECTED (NOT DETECTE)
--- NOTE | 2025-03-17 16:24 | P.PNNEUR_ITS ---
Progress Note: A&P Assessment and Plan (1) New onset seizure: Code(s): R56.9 - Unspecified convulsions Status: Acute (2) Paraplegia: Code(s): G82.20 - Paraplegia, unspecified Status: Acute Plan MRI of the brain was performed which did not show any abnormality. EEG was also normal. I would suggest to continue the Keppra 1000 mg twice a day. If he has any further seizures I would adjust the medications accordingly. At this time the etiology of the seizure be idiopathic. He does not show any evidence for new neurological findings or any intracranial infection. He does have decubitus ulcers and suffer from chronic pain. He has a colostomy in place. He is suspected of urinary tract infection. CRP was elevated 6.8. Hemoglobin is low at 8.4. however his white cell count is normal. Much of his problems are being addressed by the hospitalist. Subjective Date/time seen: 03/17/25 16:24 Interval history: Patient had a witnessed seizure in hospital yesterday by the nursing staff. Was called and I advised to start on Keppra 1000 mg twice a day. That actually will be the 3rd seizure according to the patient. He had a.seizure just prior to coming here. He has had MRI of the brain also done yesterday which did not show any abnormality. EEG was performed On 03/15/2020 5 which did not show any abnormality. However should be noted that a normal EEG does not rule out seizure disorder. Review of Systems Review of Systems: All systems reviewed & are unremarkable except as noted in HPI and below Exam Narrative: Fully conscious alert oriented to self place and person. No aphasia or dysarthria. Examination head and neck was unremarkable. Cranial nerve senior testing intact. Motor system shows normal power in both upper limbs and significant weakness in both lower limbs. Patient known to have paraplegia with a below-knee amputation on both sides. Objective Data Vital Signs Vital Signs: Vital Signs - 24 hr 03/16/25 19:42 03/16/25 20:00 03/16/25 20:00 Temperature 97.7 F Pulse Rate 129 H 129 H 126 H Respiratory Rate 20 20 Blood Pressure 124/47 L Pulse Oximetry 100 100 Oxygen Delivery Room Air 03/16/25 20:51 03/17/25 00:00 03/17/25 03:33 Temperature 97.7 F Pulse Rate 129 H 87 95 Respiratory Rate 20 Blood Pressure 136/53 L Pulse Oximetry 100 Oxygen Delivery 03/17/25 04:00 03/17/25 08:00 03/17/25 09:01 Temperature Pulse Rate 81 78 86 Respiratory Rate Blood Pressure Pulse Oximetry Oxygen Delivery 03/17/25 09:01 03/17/25 12:04 03/17/25 14:00 Temperature 98.2 F Pulse Rate 69 78 Respiratory Rate 20 16 Blood Pressure 116/73 Pulse Oximetry 100 100 Oxygen Delivery Room Air Intake/Output Intake/Output: Intake & Output 03/14/25 03/15/25 03/16/25 03/17/25 23:59 23:59 23:59 23:59 Intake Total 1100 5222 674 9613 Output Total 800 1400 400 Balance 1100 730 -530 900 Meds/Results Medications: Active Medications Generic Name Dose Route Start Last Admin Trade Name Freq PRN Reason Stop Dose Admin Alprazolam 0.25 mg 03/15/25 17:00 03/17/25 08:56 Alprazolam (*Crx) 0.25 Mg Tablet PO 0.25 mg BID MARYANN Administration Cyclobenzaprine HCl 5 mg 03/15/25 14:41 Cyclobenzaprine Hcl 5 Mg Tablet PO TID PRN Muscle Spasm Fentanyl 50 mcg 03/15/25 14:45 03/15/25 15:59 Fentanyl (*Crx) 50 Mcg Patch TRANSDERM 50 mcg Q72H MARYANN Administration Folic Acid 1 mg 03/16/25 09:00 03/17/25 08:56 Folic Acid 1 Mg Tablet PO 1 mg DAILY MARYANN Administration Furosemide 20 mg 03/15/25 21:00 03/17/25 08:56 Furosemide 20 Mg Tablet PO 20 mg Q12HR MARYANN Administration Gabapentin 300 mg 03/15/25 21:00 03/16/25 20:51 Gabapentin 300 Mg Capsule PO 300 mg HS MARYANN Administration Heparin Sodium (Beef Lung) 50 units 03/15/25 09:00 03/17/25 12:56 Heparin Flush 50 Units/5 Ml Syringe IV PUSH 50 units QAM MARYANN Administration Heparin Sodium (Beef Lung) 50 units 03/15/25 07:30 Heparin Flush 50 Units/5 Ml Syringe IV PUSH PRN PRN after intermittent infusion Heparin Sodium (Beef Lung) 50 units 03/15/25 07:30 03/17/25 06:09 Heparin Flush 50 Units/5 Ml Syringe IV PUSH 50 units PRN PRN Administration after blood draws Heparin Sodium (Porcine) 500 units 03/15/25 07:30 Heparin Sodium Lock Flush 500 Units/5 Ml Syringe IV PUSH PRN PRN see comments below Cefepime HCl 2 gm in 50 mls @ 100 mls/hr 03/17/25 09:00 03/17/25 09:25 Maxipime 2 Gm/Ns 50 Ml IVPB Infused Q8H MARYNAN Infusion Vancomycin HCl 1,500 mg in 500 mls @ 250 mls/hr 03/17/25 21:00 Vancomycin 1,500 Mg/Ns 500 Ml IVPB Q12H MARYANN Levetiracetam 1,000 mg 03/16/25 21:00 03/17/25 08:57 Levetiracetam 500 Mg Tablet PO 1,000 mg Q12HR MARYANN Administration Nifedipine 90 mg 03/16/25 09:00 03/17/25 08:56 Nifedipine 30 Mg Tab.Er.24 PO 90 mg QAM MARYANN Administration Oxycodone/Acetaminophen 1 tablet 03/15/25 14:41 03/15/25 15:56 Oxycodone/Acetaminophen (*Crx) 5-325 Mg Tablet PO 1 tablet Q6H PRN Administration pain Pantoprazole Sodium 40 mg 03/15/25 17:00 03/17/25 08:57 Pantoprazole 40 Mg Tablet PO 40 mg BID MARYANN Administration Propranolol HCl 40 mg 03/15/25 21:00 03/17/25 09:01 Propranolol Hcl 40 Mg Tablet PO 40 mg Q12HR MARYANN Administration Sertraline HCl 75 mg 03/15/25 14:45 03/17/25 08:57 Sertraline Hcl 25 Mg Tablet PO 75 mg DAILY MARYANN Administration Sodium Chloride 10 ml 03/15/25 14:00 03/17/25 12:56 Central Line Flush IV PUSH 10 ml Q8HR MARYANN Administration Radiology Results: ITS Impressions Head CT 03/14/25 21:27 Impression: No acute intracranial hemorrhage or suspicious mass effect. Brain MRI 03/16/25 13:01 IMPRESSION: 1. Normal brain with no acute intracranial process, abnormal enhancing brain lesions or evident neuronal migrational abnormalities. Abdomen/Pelvis CT 03/16/25 13:04 Impression: Decubitus ulcer to left buttock region overlying the left ischial tuberosity. No definite osteomyelitis or abscess. Correlate with physical exam. Suspected cystitis. Extensive degenerative changes of the pelvis/hips, as detailed above, similar to prior exam. Chest X-Ray 03/16/25 16:34 IMPRESSION: Left basilar atelectasis versus pneumonia. Labs Labs: Laboratory Results - last 24 hr 03/17/25 03/17/25 06:08 12:33 WBC 7.8 RBC 4.19 L Hgb 8.4 L Hct 29.5 L MCV 70.4 L MCH 20.0 L MCHC 28.5 L RDW 20.9 H Plt Count 255 MPV 10.4 Immature Gran % (Auto) 0.5 Neut % (Auto) 67.4 Lymph % (Auto) 23.2 [place] % (Auto) 7.3 Eos % (Auto) 1.2 Baso % (Auto) 0.4 Lymph # (Auto) 1.80 [place] # (Auto) 0.6 Eos # (Auto) 0.1 Baso # (Auto) 0.0 Abs Immat Gran (auto) 0.04 H Absolute Neuts (auto) 5.2 Absolute Nucleated RBC 0.000 Band Neutrophils % Not Reportable Nucleated RBC % 0.0 Platelet Estimate Adequate Polychromasia 1+ Hypochromasia 2+ Anisocytosis 2+ Ovalocytes 1+ Schistocytes None seen Sodium 139 Potassium 3.0 L Chloride 106 Carbon Dioxide 24 Anion Gap 9 BUN 7 L Creatinine 0.64 L Estim Creat Clear Calc 153 Estimated GFR > 60 Glucose 96 Calcium 7.8 L Total Bilirubin 0.2 AST 26 ALT 27 Alkaline Phosphatase 110 Total Protein 7.0 Albumin 3.6 Nasal MRSA (PCR) Detected A*
[2025-03-17] MEDS: GABAPENTIN 300 MG CAPSULE PO (20:37)
[2025-03-17] MEDS: VANCOMYCIN 1,500 MG/NS 500 ML 1,500 MG/500 ML BAG 250 MG IVPB (20:37)
[2025-03-18] VITALS (11 sets, daily range): BP systolic 126–131; BP diastolic 60–89; PULSE 59–81; RESP 14–18; TEMP 36.3–36.8; O2SAT 99–100
[2025-03-18] MEDS: CEFEPIME 2 GM/NS 50 ML 2 GM/50 ML BAG IVPB ×3 (00:35→16:52)
[2025-03-18] MEDS: oxyCODONE/ACETAMINOPHEN (*CRX) 5-325 MG TABLET 1 TABLET PO ×2 (01:26→09:27)
[2025-03-18] MEDS: CENTRAL LINE FLUSH 10 ML IV PUSH ×3 (05:33→20:42)
[2025-03-18 06:00] LABS: Basophils Percent Auto 0.6 % (0.2-1.2); Eosinophils Absolute Auto 0.2 K/mm3 (0-0.3); Eosinophils Percent Auto 3.3 % (0-4.4); Hematocrit 28.7 % (42.0-52.0); Hemoglobin 7.9 g/dL (14.0-18.0); Immature Granulocyte Absolute 0.05 K/mm3 (0.00-0.031); Immature Granulocyte Percent A 0.8 % (0-0.5); Lymphocytes Absolute Auto 1.84 K/mm3 (0.9-3.2); Lymphocytes Percent Auto 27.7 % (18.3-44.2); Mean Corpuscular HGB Conc 27.5 g/dl (32-36); Mean Corpuscular Hemoglobin 19.8 pg (26-34); Mean Corpuscular Volume 71.8 fl (80-100); Mean Platelet Volume 11.1 fl (7.4-10.4); Monocytes Absolute Auto 0.6 K/mm3 (0.1-0.6); Monocytes Percent Auto 8.4 % (2.6-8.5); Neutrophils Absolute Auto 3.9 K/mm3 (1.3-6.7); Neutrophils Percent Auto 59.2 % (45.5-73.1); Platelet Count Result 250 k/mm3 (150-375); Red Cell Distribution Width 21.1 % (11.5-14.5); White Blood Count 6.7 K/mm3 (4.5-10.0)
[2025-03-18 06:01] LABS: Alanine Aminotransferase 27 U/L (6-50); Albumin Level 3.4 g/dL (3.5-5.1); Alkaline Phosphatase 92 U/L (38-126); Anion Gap 9 mmol/L (4-12); Aspartate Amino Transferase 22 U/L (17-59); Bilirubin,Total < 0.1 mg/dL (0.2-1.3); Blood Urea Nitrogen 7 mg/dL (9-20); Calcium 7.7 mg/dL (8.4-10.2); Carbon Dioxide 23 mmol/L (22-30); Chloride 108 mmol/L (98-107); Estimated CRCL calculation 143 ml/min; Estimated Glomerular Filt Rate > 60; Glucose 101 mg/dL (65-110); Potassium 3.5 mmol/L (3.4-5.0); Sodium 140 mmol/L (137-145)
[2025-03-18 06:45] LABS: Anisocytosis 2+; Hypochromasia 2+; Ovalocytes 1+; Polychromasia 1+; Schistocytes None Seen
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
[2025-03-18] MEDS: ALPRAZolam (*CRX) 0.25 MG TABLET PO ×2 (09:16→16:52)
[2025-03-18] MEDS: levETIRAcetam 500 MG TABLET 1000 MG PO ×2 (09:16→20:42)
[2025-03-18] MEDS: FOLIC ACID 1 MG TABLET PO (09:16)
[2025-03-18] MEDS: PROPRANOLOL HCL 40 MG TABLET PO ×2 (09:16→20:42)
[2025-03-18] MEDS: SERTRALINE HCL 25 MG TABLET 75 MG PO (09:17)
[2025-03-18] MEDS: NIFEdipine 30 MG TAB.ER.24 90 MG PO (09:17)
[2025-03-18] MEDS: FUROSEMIDE 20 MG TABLET PO ×2 (09:17→20:42)
[2025-03-18] MEDS: PANTOPRAZOLE 40 MG TABLET PO ×2 (09:17→16:52)
[2025-03-18] MEDS: VANCOMYCIN 1,500 MG/NS 500 ML 1,500 MG/500 ML BAG 250 MG IVPB (09:58)
[2025-03-18] MEDS: fentaNYL (*CRX) 50 MCG PATCH TRANSDERM (14:59)
[2025-03-18] MEDS: MUPIROCIN 2% OINT 22 GM TUBE 1 APPLIC EACH NARE ×2 (15:06→20:42)
[2025-03-18] MEDS: GABAPENTIN 300 MG CAPSULE PO (20:42)
[2025-03-18 21:23] LABS: Vancomycin Trough 13.3 ug/mL (10.0-20.0)
[2025-03-18] MEDS: VANCOMYCIN 1,750 MG/NS 500 ML 1,750 MG/500 ML BAG 250 MG IVPB (22:35)
[2025-03-19] VITALS (11 sets, daily range): BP systolic 113–148; BP diastolic 70–96; PULSE 58–79; RESP 16–18; TEMP 36.5–36.8; O2SAT 99–100
[2025-03-19] MEDS: CEFEPIME 2 GM/NS 50 ML 2 GM/50 ML BAG IVPB ×2 (00:55→09:18)
[2025-03-19] MEDS: CENTRAL LINE FLUSH 10 ML IV PUSH ×3 (05:18→20:33)
[2025-03-19 05:32] LABS: Basophils Percent Auto 0.4 % (0.2-1.2); Eosinophils Absolute Auto 0.4 K/mm3 (0-0.3); Eosinophils Percent Auto 5.3 % (0-4.4); Immature Granulocyte Absolute 0.04 K/mm3 (0.00-0.031); Immature Granulocyte Percent A 0.6 % (0-0.5); Immature Platelet Fraction Pct 7.9 % (0.9-11.2); Lymphocytes Absolute Auto 1.91 K/mm3 (0.9-3.2); Lymphocytes Percent Auto 26.6 % (18.3-44.2); Mean Corpuscular HGB Conc 27.6 g/dl (32-36); Mean Corpuscular Hemoglobin 19.7 pg (26-34); Mean Corpuscular Volume 71.4 fl (80-100); Mean Platelet Volume 10.5 fl (7.4-10.4); Monocytes Absolute Auto 0.5 K/mm3 (0.1-0.6); Neutrophils Absolute Auto 4.3 K/mm3 (1.3-6.7); Neutrophils Percent Auto 60.1 % (45.5-73.1); Platelet Count Result 253 k/mm3 (150-375); Red Blood Count 4.06 M/mm3 (4.6-6.20); Red Cell Distribution Width 21.2 % (11.5-14.5); White Blood Count 7.2 K/mm3 (4.5-10.0)
[2025-03-19 05:48] LABS: Alanine Aminotransferase 25 U/L (6-50); Albumin Level 3.4 g/dL (3.5-5.1); Alkaline Phosphatase 95 U/L (38-126); Anion Gap 8 mmol/L (4-12); Aspartate Amino Transferase 21 U/L (17-59); Bilirubin,Total 0.2 mg/dL (0.2-1.3); Blood Urea Nitrogen 9 mg/dL (9-20); Calcium 7.8 mg/dL (8.4-10.2); Carbon Dioxide 24 mmol/L (22-30); Chloride 107 mmol/L (98-107); Estimated CRCL calculation 143 ml/min; Estimated Glomerular Filt Rate > 60; Glucose 93 mg/dL (65-110); Potassium 3.4 mmol/L (3.4-5.0); Sodium 139 mmol/L (137-145)
[2025-03-19 06:04] LABS: Platelet Estimate Adequate (Adequate)
[2025-03-19 06:05] LABS: Hypochromasia 2+; Microcytosis 2+ (NORMAL); Schistocytes None Seen
--- NOTE | 2025-03-19 08:38 | P.CDI_ITS ---
CDI Query Clarification Request 1) Patient with a BMI of 57.5 please provide a diagnosis to accompany this finding: * Overweight * Obesity * Morbid Obesity * Other/Unknown 2) Wound care has documented that patient has sacrum ulcer stage IV and left posterior thigh ulcer, deep tissue. Please documented presence and location of wounds within progress note, thank you. <Valencia Colmenares RN - Last Filed: 03/19/25 08:41> Clarified Diagnosis Clarified Diagnosis: BMI of 57.5 would be classification as Morbid obesity <Marck Schreiber PA-C - Last Filed: 03/19/25 13:27>
[2025-03-19] MEDS: FUROSEMIDE 20 MG TABLET PO ×2 (09:16→20:22)
[2025-03-19] MEDS: levETIRAcetam 500 MG TABLET 1000 MG PO ×2 (09:16→20:22)
[2025-03-19] MEDS: ALPRAZolam (*CRX) 0.25 MG TABLET PO ×2 (09:17→16:14)
[2025-03-19] MEDS: SERTRALINE HCL 25 MG TABLET 75 MG PO (09:17)
[2025-03-19] MEDS: NIFEdipine 30 MG TAB.ER.24 90 MG PO (09:17)
[2025-03-19] MEDS: FOLIC ACID 1 MG TABLET PO (09:17)
[2025-03-19] MEDS: PANTOPRAZOLE 40 MG TABLET PO ×2 (09:17→16:14)
[2025-03-19] MEDS: PROPRANOLOL HCL 40 MG TABLET PO ×2 (09:17→20:22)
[2025-03-19] MEDS: MUPIROCIN 2% OINT 22 GM TUBE 1 APPLIC EACH NARE ×2 (09:18→20:32)
[2025-03-19] MEDS: oxyCODONE/ACETAMINOPHEN (*CRX) 5-325 MG TABLET 1 TABLET PO ×2 (09:28→16:14)
[2025-03-19] MEDS: VANCOMYCIN 1,750 MG/NS 500 ML 1,750 MG/500 ML BAG 250 MG IVPB (10:40)
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
[2025-03-19 14:15] LABS: Glucose Point of Care 89 mg/dl (65-105)
[2025-03-19] MEDS: ONDANSETRON INJ 4 MG/2 ML VIAL IV PUSH (15:20)
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
[2025-03-19] MEDS: GABAPENTIN 300 MG CAPSULE PO (20:22)
[2025-03-19] MEDS: DOXYCYCLINE HYCLATE 100 MG TABLET PO (20:22)
[2025-03-19] MEDS: AMOXICILLIN/CLAVULANATE K 875-125 MG TAB 1 TABLET PO (20:23)
[2025-03-20] VITALS: PULSE 66
[2025-03-20 04:00] VITALS: PULSE 72
[2025-03-20] MEDS: CENTRAL LINE FLUSH 10 ML IV PUSH (04:41)
[2025-03-20 04:53] VITALS: BP 110/64; PULSE 71; RESP 18; TEMP 36.7; O2SAT 100
[2025-03-20 05:08] LABS: Basophils Percent Auto 0.3 % (0.2-1.2); Eosinophils Absolute Auto 0.6 K/mm3 (0-0.3); Hematocrit 29.1 % (42.0-52.0); Hemoglobin 8.3 g/dL (14.0-18.0); Immature Granulocyte Absolute 0.05 K/mm3 (0.00-0.031); Immature Granulocyte Percent A 0.7 % (0-0.5); Lymphocytes Absolute Auto 1.79 K/mm3 (0.9-3.2); Lymphocytes Percent Auto 24.3 % (18.3-44.2); Mean Corpuscular HGB Conc 28.5 g/dl (32-36); Mean Corpuscular Hemoglobin 20.1 pg (26-34); Mean Corpuscular Volume 70.5 fl (80-100); Mean Platelet Volume 10.9 fl (7.4-10.4); Monocytes Absolute Auto 0.5 K/mm3 (0.1-0.6); Monocytes Percent Auto 6.1 % (2.6-8.5); Neutrophils Absolute Auto 4.5 K/mm3 (1.3-6.7); Neutrophils Percent Auto 60.6 % (45.5-73.1); Platelet Count Result 263 k/mm3 (150-375); Red Blood Count 4.13 M/mm3 (4.6-6.20); Red Cell Distribution Width 21.1 % (11.5-14.5); White Blood Count 7.4 K/mm3 (4.5-10.0)
[2025-03-20 05:18] LABS: Alanine Aminotransferase 24 U/L (6-50); Albumin Level 3.4 g/dL (3.5-5.1); Alkaline Phosphatase 95 U/L (38-126); Anion Gap 8 mmol/L (4-12); Aspartate Amino Transferase 19 U/L (17-59); Bilirubin,Total 0.1 mg/dL (0.2-1.3); Blood Urea Nitrogen 9 mg/dL (9-20); Calcium 7.9 mg/dL (8.4-10.2); Carbon Dioxide 25 mmol/L (22-30); Chloride 106 mmol/L (98-107); Estimated CRCL calculation 145 ml/min; Estimated Glomerular Filt Rate > 60; Glucose 110 mg/dL (65-110); Potassium 3.2 mmol/L (3.4-5.0); Sodium 139 mmol/L (137-145)
[2025-03-20 06:13] LABS: Anisocytosis 1+; Hypochromasia 1+; Platelet Estimate Adequate (Adequate)
[2025-03-20 06:14] LABS: Schistocytes None Seen
[2025-03-20 08:00] VITALS: PULSE 59
--- NOTE | 2025-03-20 08:53 | PM.DS ---
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: Code(s): Z22.322 - Carrier or suspected carrier of Methicillin resistant Staphylococcus aureus Status: Acute (4) Headache: Code(s): R51.9 - Headache, unspecified Status: Acute (5) Essential hypertension: Code(s): I10 - Essential (primary) hypertension Status: Acute (6) Diabetes: Code(s): E11.9 - Type 2 diabetes mellitus without complications Status: Acute (7) Paraplegia: Code(s): G82.20 - Paraplegia, unspecified Status: Acute (8) Chronic pain: Code(s): G89.29 - Other chronic pain Status: Acute (9) GERD (gastroesophageal reflux disease): Code(s): K21.9 - Gastro-esophageal reflux disease without esophagitis Status: Acute (10) Morbid obesity: Code(s): E66.01 - Morbid (severe) obesity due to excess calories Status: Acute (11) Pressure ulcer, sacrum: Code(s): L89.159 - Pressure ulcer of sacral region, unspecified stage Status: Acute DS: Summary Hospital Course Reason for hospitalization: Seizure like activity Hospital Course: Patient is a 39-year-old male a past medical history of hypertension, pain anxiety, wheelchair-bound, cholecystectomy, 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 Patient denies any history of seizures, but states that approximately 3 years ago was seen at an ER for a syncopal episode. Under review, he has had multiple CT scans of the brain due to consistent headaches or altered mental status within the past 3 years. At the time of my examination, patient denies any chest pain, shortness Bro breath, nausea/vomiting, abdominal pain, or urinary/bowel complaints. He states that at the time that he thought that he had a seizure/passed out, he was sitting in a chair and was unconscious for approximately 5-7 minutes. States that he did not hit his head or fall to the ground. When he arrived to the ED, he did have some mild abdominal pain and nausea but not at this time. Does have a colostomy. Neurology to be consulted. Patient to be admitted to the floor for observation regarding possible new onset seizure. Neurology is consulted and suggested a loading dose of Keppra, ordering an EEG, and brain MRI. ED workup: 97.5F, 82 HR, 16 RR, 126/72, 100% RA WBC 9.7, Hgb 9.5, Hct 33.2, Na 140, K 3.2, BUN 11, Cr 0.58, Glucose 118. Head CT: No acute intracranial hemorrhage or suspicious mass effect., EKG showed NSR UA: Positive nitrate, 1+ ketones, trace leukocyte esterase Neurology consulted, EEG done which showed no abnormalities, MRI of the brain showed normal brain with no acute intracranial process. Abdomen/pelvis CT was obtained due to right upper quadrant abdominal pain this was unremarkable as well. Rapid response was initiated on 03/16 due to another seizure. Dr. Cabezas was contacted and was okay with just maintaining Keppra 1000 mg b.i.d. and monitor the patient. Denied any need for further EEG monitoring or transfer to a tertiary facility. On 03/17, patient was in good spirits and had no complaints, however a chest x-ray was obtained and showed some atelectasis versus number, and given that there was significant change from x-ray on 03/15, empiric treatment for hospital-acquired pneumonia was initiated. Physical exam was benign and patient declined any shortness of breath or need for O2 supplementation requirements, but antibiotics were still maintained. Nasal MRSA swab was found positive, however patient was already appropriate MRSA coverage 0 oral antibiotics for his hospital-acquired pneumonia so this will be maintained. Patient was maintained on cefepime and vanc for this antibiotic coverage. Discharge orders back to [facility] were initiated on 03/19, however patient started experiencing his aura like symptoms that he usually precipitates this seizure-like activity has been observed. Patient was kept until 03/20 and did not experience any symptoms overnight. Blood work and vital signs have remained stable throughout hospitalization. This patient has been transitioned to p.o. antibiotics for appropriate coverage, and given a prescription for mupirocin ointment to be applied to each nare, patient can be discharged back to [facility] at this time. Patient is amenable to this plan. Will give the patient appropriate follow-up instructions for neurologist, as well as a prescription for Keppra 1000 mg b.i.d.. Plan discharge at this time. Status at Discharge Functional status at discharge: wheelchair bound Overall status at discharge: patient is back to baseline Time Spent with Patient Time attestation: Total time spent providing and/or coordinating discharge services: 35 Exam Narrative: Gen - chronically ill appearing male in no acute respiratory distress who is nontoxic-appearing lying semi recumbent in bed HEENT - normocephalic. Atraumatic. Pupils equal round and reactive. Extraocular motions intact. Sclera clear and anicteric. Nares patent. Oropharynx was clear. No oral lesions. Moist mucous membranes. Tongue was midline. Palate carrie symmetrically. No facial asymmetry. Neck - neck was supple. No dominant adenopathy, thyromegaly or masses. 2+ carotid upstrokes without bruits. Chest - lungs are clear to auscultation bilaterally. No wheezes or crackles. CV - heart was regular rate and rhythm. S1-S2. No murmurs gallops or rubs. Abd -colostomy, abdomen was soft. Nontender. Nondistended. Positive bowel sounds. Neuro - patient is alert and oriented x4. Strength is 5/5 in upper extremities. Speech is clear. No aphasia or dysarthria. Psych - normal mood and affect. Patient is pleasant and cooperative. Skin - warm and dry. No rashes noted. DS: Data Data Completed and Pending Labs on day of discharge: Labs from last 24 hours 03/20/25 03/19/25 04:45 13:57 WBC 7.4 RBC 4.13 L Hgb 8.3 L Hct 29.1 L MCV 70.5 L MCH 20.1 L MCHC 28.5 L RDW 21.1 H Plt Count 263 MPV 10.9 H Immature Gran % (Auto) 0.7 H Neut % (Auto) 60.6 Lymph % (Auto) 24.3 Rabun % (Auto) 6.1 Eos % (Auto) 8.0 H Baso % (Auto) 0.3 Lymph # (Auto) 1.79 Rabun # (Auto) 0.5 Eos # (Auto) 0.6 H Baso # (Auto) 0.0 Abs Immat Gran (auto) 0.05 H Absolute Neuts (auto) 4.5 Absolute Nucleated RBC 0.000 Band Neutrophils % Not Reportable Nucleated RBC % 0.0 Platelet Estimate Adequate Hypochromasia 1+ Anisocytosis 1+ Schistocytes None seen Sodium 139 Potassium 3.2 L Chloride 106 Carbon Dioxide 25 Anion Gap 8 BUN 9 Creatinine 0.68 L Estim Creat Clear Calc 145 Estimated GFR > 60 Glucose 110 POC Capillary Glucose 89 Calcium 7.9 L Total Bilirubin 0.1 L AST 19 ALT 24 Alkaline Phosphatase 95 Total Protein 7.0 Albumin 3.4 L Discharge Plan Discharge Attending physician on discharge: Marck Schreiber Consulting providers: Archie Roy Discharging Clinician: Marck Schreiber Anticipated Discharge Date/Time: 03/20/25 08:44 Patient Disposition: NH Correction/Asst Living Activity: as tolerated Diet: as tolerated Discharge Instructions: Discharge disposition: Stable Take medications as prescribed. You will be prescribed Augmentin and Doxycycline to be taken twice daily. You will also be prescribed Keppra to take twice daily. You will also be prescribed Mupirocin ointment to be applied to each nostril for 7 days. Monitor blood pressures Take caution while standing, rising, or moving Change positions slowly taking a break between each position change If you standing feel dizzy sit back down and take a break Encouraged to continue with yearly vaccinations Return to the emergency department if he developed sudden shortness of breath, chest pain, nausea, vomiting, upset stomach or intractable diarrhea Return to the emergency department if you develop fever greater than 101.5 Follow-up with the primary care physician within 1-2 weeks Thank you for [facility] for your healthcare needs Patient Instructions: Antibiotic Form Patient Language: German Stand Alone Forms: General Discharge Information Follow-up/Referrals: Ampadu,MD Rick [Primary Care Provider] - Susana Cabezas MD [Physician] - Discharge Medications: New levetiracetam [Keppra] 500 mg Tablet 1,000 mg PO Q12HR 30 Days Qty: 120 0RF mupirocin [Centany] 2 % ointment 1 applic topical BID Qty: 15 0RF amoxicillin-pot clavulanate 875-125 mg tablet 1 tablet PO Q12H Qty: 7 0RF doxycycline hyclate 100 mg capsule 100 mg PO DAILY Qty: 7 0RF Continued naloxone 4 mg/actuation spray,non-aerosol 1 spray INTRANASAL Q2-3M PRN (Reason: Opiate Reversal) cyclobenzaprine 5 mg tablet 5 mg PO TID PRN (Reason: Muscle Spasm) Qty: 1 0RF fentanyl 50 mcg/hr patch 72 hour 1 patch transdermal Q72H Patient Comments: Removed in ER gabapentin 300 mg capsule 300 mg PO HS alprazolam 0.25 mg tablet 0.25 mg PO BID Senna Plus 8.6-50 mg capsule 1 tab-cap PO BID pantoprazole 40 mg tablet,delayed release (DR/EC) 40 mg PO BID Rx Instructions: Before breakfast and dinner polyethylene glycol 3350 [Miralax] 17 gram powder in packet 17 g PO DAILY PRN (Reason: constipation) ibuprofen 400 mg tablet 400 mg PO Q4H PRN (Reason: pain) folic acid 1 mg tablet 1 mg PO DAILY nifedipine [Procardia XL] 30 mg Tablet Extended Release 24hr 90 mg PO QAM Qty: 30 0RF furosemide 20 mg tablet 20 mg PO Q12H gentamicin 0.1 % ointment 1 applic TOPICAL DAILY Rx Instructions: pressure ulcer sacral region hydroxyzine HCl 25 mg tablet 25 mg PO Q6H PRN (Reason: itching) ondansetron 4 mg tablet,disintegrating 4 mg PO Q8H PRN (Reason: nausea and vomiting) propranolol 40 mg tablet 40 mg PO Q12H sertraline 50 mg tablet 75 mg PO Q24H oxycodone-acetaminophen 5-325 mg tablet 1 tablet PO Q6H PRN (Reason: pain) acetaminophen 500 mg Capsule 500 mg PO Q6H PRN (Reason: pain or fever) Date of admission: 03/16/25 15:43 Primary Care Provider: Raymond*Rick Admitting Provider: Cuca Corbin Attending physician on admission: Marck Schreiber Condition: Stable Quality VTE Prophylaxis VTE prophylaxis: pharmacologic ordered
[2025-03-20] MEDS: ALPRAZolam (*CRX) 0.25 MG TABLET PO (08:54)
[2025-03-20] MEDS: NIFEdipine 30 MG TAB.ER.24 90 MG PO (08:54)
[2025-03-20] MEDS: SERTRALINE HCL 25 MG TABLET 75 MG PO (08:54)
[2025-03-20 08:55] VITALS: PULSE 65
[2025-03-20] MEDS: FUROSEMIDE 20 MG TABLET PO (08:55)
[2025-03-20] MEDS: AMOXICILLIN/CLAVULANATE K 875-125 MG TAB 1 TABLET PO (08:55)
[2025-03-20] MEDS: PROPRANOLOL HCL 40 MG TABLET PO (08:55)
[2025-03-20] MEDS: POTASSIUM CHLORIDE 20 MEQ ER TABLET PO (08:55)
[2025-03-20] MEDS: CALCIUM/VITAMIN D 500 MG/5 MCG (200 I.U.) TABLET PO (08:56)
[2025-03-20] MEDS: FOLIC ACID 1 MG TABLET PO (08:56)
[2025-03-20] MEDS: PANTOPRAZOLE 40 MG TABLET PO (08:56)
[2025-03-20] MEDS: levETIRAcetam 500 MG TABLET 1000 MG PO (08:56)
[2025-03-20] MEDS: DOXYCYCLINE HYCLATE 100 MG TABLET PO (08:56)
[2025-03-20] MEDS: MUPIROCIN 2% OINT 22 GM TUBE 1 APPLIC EACH NARE (08:57)
[2025-03-20 12:00] VITALS: PULSE 72
[2025-03-20 16:22] LABS: Pneumococcal Antigen Urine NOT DETECTED
[2025-03-22 17:33] LABS: Mycoplasma IgM Antibody Titer 151 U/mL
== END 2025-03-20 14:35 | DRG 100 ==
LOC: ANHED 22:40 → ANH2MED 23:18
PROVIDERS: Admitting Provider Internal Medicine; Emergency Provider Registered Nurse; PCP Internal Medicine; Visit Provider Physician Assistant
DX: R56.9 Unspecified convulsions (principal); J18.9 Pneumonia, unspecified organism; L89.153 Pressure ulcer of sacral region, stage 3; G82.20 Paraplegia, unspecified; T83.510A Infection and inflammatory reaction due to cystostomy catheter, initial encounter; N39.0 Urinary tract infection, site not specified; Z68.43 Body mass index [BMI] 50.0-59.9, adult; Y95 Nosocomial condition; E66.01 Morbid (severe) obesity due to excess calories; E11.9 Type 2 diabetes mellitus without complications; F12.90 Cannabis use, unspecified, uncomplicated; G89.29 Other chronic pain; I10 Essential (primary) hypertension; K21.9 Gastro-esophageal reflux disease without esophagitis; N31.2 Flaccid neuropathic bladder, not elsewhere classified; R51.9 Headache, unspecified; R41.82 Altered mental status, unspecified; Z93.3 Colostomy status; Z90.49 Acquired absence of other specified parts of digestive tract; Z89.512 Acquired absence of left leg below knee; Z89.511 Acquired absence of right leg below knee; Z87.891 Personal history of nicotine dependence; Z99.3 Dependence on wheelchair; Z22.322 Carrier or suspected carrier of Methicillin resistant Staphylococcus aureus
CPT/HCPCS: 36415; 70450; 70553; 71045; 74177; 80053; 80202; 80307; 81001; 82550; 82948; 83605; 83735; 84132; 84443; 84484; 85025; 85055; 85610; 85730; 86140; 86738; 87040; 87081; 87086; 87637; 87641; 87899; 93005; 95816; 96361; 96365; 96366; 96367; 96375; 99212; 99285; A9270; A9579; G0378; G0463; J0360; J0692; J0696; J1642; J1953; J2060; J2405; J3370; J3480; J7030; Q9967